=== PATIENT | female | born 1955 | race Caucasian/White ===

== ENCOUNTER 2016-07-24 10:20 | Inpatient (IN) | payer MEDICARE, MEDICAID ==
[~2016-07-24] VITALS: Ht 154.9 cm; Wt 86.9 kg
[2016-07-24] MEDS: TIOTROPIUM INHALER/CAPSULE (SPIRIVA) INH SCH (08:00)
[~2016-07-24 10:20] MED LIST: /AMIO20TA PO; /ESOM40CA; ACCUPRIL20 PO; ACET65TA; ALBU83IN INH; ALESSE PO; AMLO5TAB; AMLODIPINE PO; AMO500 PO; ASP325 PO; ASPI325T; ASPI81TA90 PO; BACT800T5 PO; BACTRIMDS PO; CIPRO500 PO; CLARITIN10 PO; CLON0.5T PO; COMBIVENT PO; CORE25TA; CORTISPOR OTIC; COZA25TA8; COZA50TA18; DICL13PA TOP; F ACCUPRIL PO; FERR325T; FERROUS325 PO; FLEXERIL; FLONASESPR NASAL; GLIP5TAB2; GLUCOPH500 PO; HYDR1TAB97 PO; HYDROCCR1 TOPICAL; INSULANT SC; JANUVIA; KEFLEX500 PO; LAMISILCR TOPICAL; LANCMIS SC; LAVAZA PO; LOTRIMCREA TOPICALLY; LOVA1CAP17 PO; MACR100C3 PO; MECLIZIN PO; METO100T PO; NEXIUM40 PO; NIFEREX; NITROSTAT4 SL; NIZORAL200 PO; OMEP40CA2 PO; OMEPRAZ20 PO; OMNICEF300 PO; OXYGEN NC; PRILOSEC20 PO; PRILOSEC40 PO; RENATAB5 PO; ROBITUSSDM PO; ROSU10TA PO; SPACER -; TESSALO100 PO; TIOT18INH INH; TOPAMAX100 PO; TRIC145T19 PO; TUSSI12TAB PO; TYLE325T5 PO; ULTRAM50 PO; ULTRTA PO; VALI2TAB PO; VICODIN PO; VITA-113; VIVELLE; ZEBETA5 PO; ZYRT10TA2 PO; [UNRECOGNIZED DRUG - OTHER]; [UNRECOGNIZED DRUG - OTHER] PO; [UNRECOGNIZED DRUG - REMARK]; cyclobenzaprine PO; hydrocodone PO; magnesium oxide PO; nephrovite PO; renvela PO; trazodone PO; vitamin d2 PO
[2016-07-24 11:02] LABS: BASO % 1.2 % (0.0-1.0); EOS # 0.3 K/mm3 (0.0-0.50); EOS % 6.7 % (0.0-3.0); LARGE UNSTAINED CELL # 0.1 K/mm3 (0.0-0.4); LYMPH # 0.5 K/mm3 (1.5-4.5); LYMPH % 9.1 % (24.0-44.0); MEAN CORPUSCULAR HEMOGLOBIN 31.2 pg (27.0-33.0); MEAN CORPUSCULAR HGB CONC 31.6 g/dl (32.0-36.5); MEAN CORPUSCULAR VOLUME 98.8 fl (80.0-96.0); MONO # 0.4 K/mm3 (0.0-0.8); NEUTROPHILS # 3.2 K/mm3 (1.8-7.7); PLATELET COUNT, AUTOMATED 145 k/mm3 (150-450); RED CELL DISTRIBUTION WIDTH 15.7 % (11.5-14.5); WHITE BLOOD COUNT 4.4 K/mm3 (4.0-10.0)
[2016-07-24 11:13] LABS: ANION GAP 9 MEQ/L (8-16); BLOOD UREA NITROGEN 11 MG/DL (7-18); CALCIUM LEVEL 8.9 MG/DL (8.8-10.2); CARBON DIOXIDE LEVEL 32 MEQ/L (21-32); CHLORIDE LEVEL 101 MEQ/L (98-107); CREATININE FOR GFR 3.28 MG/DL (0.55-1.02); GLOMERULAR FILTRATION RATE 15.3 (>45); GLUCOSE, FASTING 76 MG/DL (80-110); POTASSIUM SERUM 3.7 MEQ/L (3.5-5.1); SODIUM LEVEL 142 MEQ/L (136-145)
[2016-07-24] MEDS ORDERED: guaiFENesin DM LIQ 10ML UD As Ordered ONE (13:29)
[2016-07-24] MEDS ORDERED: ACETAMINOPHEN 325 MG TAB As Ordered ONE (13:29)
--- NOTE | 2016-07-24 14:08 | REP ---
PA and lateral chest 07/24/2016 Indication: Shortness of breath Comparison: PA and lateral chest 06/11, CTA chest 06/06/2016, portable chest 06/09 16 The cardiac silhouette is borderline in size. Subtle patchy infiltrate is identified in the left lower lobe and lingula. Small amount of right basilar atelectatic changes are noted. There are mild degenerative changes in thoracic spine. Impression : Stable cardiac silhouette, borderline in size. Subtle patchy infiltrate is identified in the left lower lobe and lingula. Follow-up to resolution recommended. Mild right basilar atelectatic changes. Signed by Jennifer Loomis MD 07/24/2016 02:00 P
[2016-07-24] MEDS ORDERED: cefTRIAXone SOD 1 GM VIAL (J0696) As Ordered ONE (14:33)
[2016-07-24] MEDS ORDERED: ASPI325T PO (15:07)
[2016-07-24] MEDS ORDERED: ROCA0.25 PO (15:07)
[2016-07-24] MEDS ORDERED: COLA100C PO (15:07)
[2016-07-24] MEDS ORDERED: CRES20TA PO (15:07)
[2016-07-24] MEDS ORDERED: AMIO20TA PO (15:07)
[2016-07-24] MEDS ORDERED: CYCL5TA PO (15:07)
[2016-07-24] MEDS ORDERED: NORC5TAB PO (15:07)
[2016-07-24] MEDS ORDERED: DIAZ5TAB PO (15:07)
[2016-07-24] MEDS ORDERED: NEPHTAB PO (15:08)
[2016-07-24] MEDS ORDERED: MAGN400T5 PO (15:08)
[2016-07-24] MEDS ORDERED: LANTINJ4 SC (15:08)
[2016-07-24] MEDS ORDERED: OMEP40CA2 PO (15:08)
[2016-07-24] MEDS ORDERED: DRIS50002 PO (15:08)
[2016-07-24] MEDS ORDERED: TRAZ10TA PO (15:08)
[2016-07-24] MEDS ORDERED: METO100T PO (15:08)
[2016-07-24] MEDS ORDERED: LOVA1CAP17 PO (15:08)
[2016-07-24] MEDS ORDERED: EPOG3000 INJ (15:08)
[2016-07-24] MEDS ORDERED: RENV2TAB PO (15:08)
[2016-07-24] MEDS ORDERED: SODI15SS PO (15:08)
[2016-07-24] MEDS ORDERED: TIOT18INH INH (15:08)
[2016-07-24] MEDS ORDERED: ZOFR4TAB3 PO (15:08)
[2016-07-24] MEDS ORDERED: ISOVUE-370 76% 100ML VIAL (Q9967) As Ordered ONE (15:09)
[2016-07-24] MEDS ORDERED: LEVO75TA4 PO (15:09)
--- NOTE | 2016-07-24 15:27 | HPEPDOC ---
Medical History and Physical Date of Admission 07/24/16 History and Physical ATTENDING: Dr. Nieves PCP: [facility] Dr Bond CC: SOB HPI: 60yoF with a past medical history significant for IDDM, ESRD, on HD as per Dr Bond, COPD who states she began to feel SOB and have persistent non productive cough 2 days ago. Feeling cold. Went to HD this AM and referred to ED for eval. Denies any weakness, fatigue, HOFF, CP, palpitations, abdominal pain, N/V/D or changes in bowel or bladder habits. Upon presentation to the hospital the patient was found to have LLL PN, thus the hospitalist team was consulted. PMHx: ESRD/HD- Ronda IDDM A Flutter (no anticoagulation related to h/o intracranial bleed) [facility] 07/09 LVH, nml systolic function. H/O Intraventricular bleed related to coumadin HHD hyperparathyroidism ACD Anxiety obesity PRABHJOT intolerant to CPAP COPD Chronic [employer]/BP hypothyroid HLD GERD PSHX: C section x 2 Lumbar discectomy breast biopsy colo 2001, 04/09. hysterectomy nasal cautery ventriculostomy 07/03 SOCHX: Resides in: [place] Marital Status: Kids: 2 Employment: retired Tobacco use: denies ETOH: denies Illicit Drugs: Denies Recent travel: denies Advanced directives: denies FAMHX: Mother: CVA Father: COPD Siblings: Alive, DM Children: Alive, well Unexpected deaths due to medical reasons: None. ROS: As noted in HPI, otherwise 11pt ROS of systems reviewed and unremarkable PE: GEN: 60yoF, appears stated age. Well-nourished, well developed. No acute distress. Alert and oriented x 3. Pleasant, interactive. HEENT: Normocephalic, atraumatic. Pupils are equal, round, and reactive to light. Extraocular movements are intact. No nystagmus appreciated. Sclera are nonicteric. Conjunctiva without injection. Nose midline. Nasal turbinates without bogginess. EACs both patent BL. TMs both visualized and burr with good cone of light, no bulging or erythema. No facial asymmetry. Moist mucous membranes. Dentition fair. Pharynx pink and moist, no cobblestoning. Neck supple , trachea midline. No lymphadenopathy or thyromegaly appreciated. CHEST: Regular rate and rhythm, +S1, +S2 LUNGS: Decreased BS at bases. Few rales at bases. No wheezes or rhonchi. Breathing appears symmetric and easy. Patient is speaking in full sentences. No accessory muscle use. ABD: Round, soft, non-tender, non-distended. +Bowel sounds throughout. No rebound or guarding. No costovertebral angle tenderness. EXT: Pulses 2+ bilaterally dorsalis pedis and radial. No lower extremity edema appreciated. SKIN: [place], dry, warm. Capillary refill <2sec. No rashes. NEURO: Alert and oriented x 3. Cranial nerves III-XII are intact. No focal deficits appreciated. CXR: Stable cardiac silhouette, borderline in size. Subtle patchy infiltrate is identified in the left lower lobe and lingula. Follow-up to resolution recommended. Mild right basilar atelectatic changes. CTA chest pending. BLOOD CULTURES: x 2 pending. A&P: 60yoF with a past medical history significant for IDDM, ESRD, on HD as per Dr Bond, COPD who states she began to feel SOB and have persistent non productive cough 2 days ago. Feeling cold. Went to HD this AM and referred to ED for eval. The patient will be admitted to PCU for at least [address] Nieves's service. Pt is discussed with Dr Winston. LLL CAP. BC pending. Sputum cx. Supplemental O2. IV Rocephin/Zmax. Nebs prn. Robitussin prn. Elevated D Dimer. CTA chest pending. ESRD/HD. As Per Nephrology. IDDM. SSI/levemir reduced dose related to reduced appetite. Chronic pain. Cont outpt meds. Anxiety. Cont valium as needed. hypothyroid. Cont supplement. TSH pending. HLD. crestor/Lovaza. HTN/HHD. Metoprolol with hold parameters. GERD. PPI COPD. Spiriva insomnia. Trazodone Hypomagnesemia. Cont supplement, chk level in AM. Hyperkalemia. Hold Kayexalate prn, K 3.7. Monitor labs. ACD. Epo with HD. DVT prophylaxis. The patient is a Full code Vital Signs 132/61 76 24 98.7 91% Laboratory Data Labs 24H Laboratory Tests 2 07/24/16 10:48: Anion Gap 9, B-Type Natriuretic Peptide 187H, White Blood Count 4.4, Red Blood Count 3.50L, Hemoglobin 10.9L, Hematocrit 34.6L, Mean Corpuscular Volume 98.8H, Mean Corpuscular Hemoglobin 31.2, Mean Corpuscular Hemoglobin Concent 31.6L, Red Cell Distribution Width 15.7H, Platelet Count 145L, Neutrophils (%) (Auto) 72.0H, Lymphocytes (%) (Auto) 9.1L, Monocytes (%) (Auto) 9.0H, Eosinophils (%) ( Auto) 6.7H, Basophils (%) (Auto) 1.2H, Neutrophils # (Auto) 3.2, Lymphocytes # ( Auto) 0.5L, Monocytes # (Auto) 0.4, Eosinophils # (Auto) 0.3, Basophils # (Auto ) 0.0, Blood Urea Nitrogen 11, Creatinine 3.28H, Sodium Level 142, Potassium Level 3.7, Chloride Level 101, Carbon Dioxide Level 32, Calcium Level 8.9, Total Creatine Kinase 33, Creatine Kinase MB 1.0, Creatine Kinase MB Relative Index 3.03, D-Dimer, Quantitative 944.6H, Glomerular Filtration Rate 15.3L, Large Unclassified Cells # 0.1, Large Unclassified Cells % 2.0, Troponin I < 0.02 CBC/BMP Laboratory Tests 07/24/16 10:48 Calcium Level 8.9, Total Creatine Kinase 33, Red Blood Count 3.50 L, Mean Corpuscular Volume 98.8 H, Mean Corpuscular Hemoglobin 31.2, Mean Corpuscular Hemoglobin Concent 31.6 L, Red Cell Distribution Width 15.7 H, Neutrophils (%) ( Auto) 72.0 H, Lymphocytes (%) (Auto) 9.1 L, Monocytes (%) (Auto) 9.0 H, Eosinophils (%) (Auto) 6.7 H, Basophils (%) (Auto) 1.2 H, Neutrophils # (Auto) 3.2, Lymphocytes # (Auto) 0.5 L, Monocytes # (Auto) 0.4, Eosinophils # (Auto) 0.3, Basophils # (Auto) 0.0 Microbiology Microbiology 07/24/16 Blood Culture, Received Pending 07/24/16 Blood Culture, Received Pending Home Medications Scheduled Amiodarone HCl (Amiodarone HCl) 200 Mg Tab 200 MG PO DAILY Aspirin (Aspirin) 325 Mg Tab 325 MG PO DAILY Calcitriol (Rocaltrol) 0.25 Mcg Cap 0.75 MCG PO 3XW THURSDAY,THURSDAY,THURSDAY Epoetin Justin (Epogen) 3,000 Unit/Ml Inj 3,000 UNIT INJ 3XW THURSDAY,THURSDAY,THURSDAY Insulin Glargine (Lantus Solostar) 100 Unit/Ml Inj 46 UNITS SC QHS Levothyroxine Sodium (Synthroid) 75 Mcg Tab 75 MCG PO DAILY Magnesium Oxide (Magnesium Oxide 400) 400 Mg Tab 400 MG PO DAILY Metoprolol Tartrate (Metoprolol Tartrate) 100 Mg Tab 100 MG PO BID [place] 3 Polyunsat Fatty Acids (Lovaza 1 gm) 1 Cap Cap 2 CAP PO BID Omeprazole (Omeprazole) 40 Mg Cap 40 MG PO DAILY Rosuvastatin Calcium (Crestor) 20 Mg Tab 20 MG PO QHS Sevelamer Carbonate (Renvela) 800 Mg Tab 2,400 MG PO WM Sodium Polystyrene Sulfonate (Sps) 15 Gm/60 Ml Susp 15 GM PO ASDIRECTED ONLY TAKES IF TOLD TO BY DIALYSIS Tiotropium [place] Monohydrate (Spiriva Handihaler) 5 Inhalation/Inhaler Powd 1 INHALATION INH DAILY Trazodone HCl (Trazodone HCl) 100 Mg Tab 100 MG PO QHS Vitamin B Cmplx/Vitc/Folic Ac (Nephro-Mirella Rx 1 mg) 1 Tab Tab 1 TAB PO DAILY Vitamin D (Drisdol) 50,000 Unit Cap 50,000 UNIT PO Q2WK Scheduled PRN Acetaminophen/Hydrocodone ([place] 5-325 mg) 1 Tab Tab 1 TAB PO BID PRN PRN CONSTIPATION Cyclobenzaprine HCl (Cyclobenzaprine HCl) 5 Mg Tab 5 MG PO TID PRN PRN MUSCLE SPASMS Diazepam (Diazepam) 5 Mg Tab 5 MG PO BID PRN PRN ANXIETY Docusate Sodium (Colace) 100 Mg Cap 100 MG PO DAILY PRN PRN CONSTIPATION Ondansetron (Zofran Odt) 4 Mg Tab 4 MG PO Q6H PRN PRN NAUSEA Allergies Coded Allergies: Quinolones (Verified Allergy, Unknown, TEQUIN, 05/19/14) TONGUE SWOLLEN GME ATTESTATION GME ATTESTATION My preceptor for this patient encounter was physically present in the building during the encounter and was fully available. As needed, all aspects of the patient interview, examination, medical decision making process, and medical care plan development were reviewed and approved by the preceptor. Preceptor is aware and concurs with the plan as stated in the body of this note and will attest to such by his/her cosignature. ATTENDING NOTE Attending Note I have both independently examined this patient as well as reviewed the note. I have discussed in detail with the PA the findings and plan of treatment as documented in the PAs note. I will continue to follow the patient and offer further guidance to the patients care as necessary during this hospital stay. Meche Smith Jul 24, 2016 15:27 MONSTER WINSTON DO Jul 28, 2016 20:58
[2016-07-24] MEDS ORDERED: CYCLOBENZAPRINE 5MG TABLET PO PRN (15:45)
[2016-07-24] MEDS ORDERED: diazePAM 5 MG TAB PO PRN (15:45)
[2016-07-24] MEDS ORDERED: DOCUSATE SODIUM 100 MG CAP PO PRN (15:45)
[2016-07-24] MEDS ORDERED: GLUCAGON FOR INJ 1 MG VIAL (J1610) SC PRN (16:00)
[2016-07-24] MEDS ORDERED: DEXTROSE 50% 50 ML SYRINGE IV PRN (16:00)
[2016-07-24] MEDS ORDERED: GLUCOSE 4 GM CHEW TABLET PO PRN (16:00)
--- NOTE | 2016-07-24 16:14 | REP ---
[place] CTA chest 07/24/2016 Indication: Shortness of breath Comparison: CTA chest 06/06/2016 The patient had dialysis earlier today and is cleared for subsequent CTA chest today by Dr.. Guzman of Dept of Nephrology Findings: The thoracic aorta is without aneurysm or dissection. There is minimal pericardial effusion now noted of maximal depth 5 mm. The heart is of normal size. There are no pathologically enlarged mediastinal or hilar lymph nodes. There are no central pulmonary artery emboli through the proximal segmental pulmonary artery levels bilaterally. Patchy areas of nodular infiltrate are seen within the lingula with mild progression and in the left lower lobe with progression. The right lung is clear. Visualized portions of the liver are enlarged. Liver is 18.3 cm cranial caudal dimension. The spleen is 11.6 cm craniocaudal dimension, upper normal size. Visualized portions of pancreas within normal limits. The gallbladder is Jayesh distended without stones wall thickening or biliary dilatation. There are a few nodes within the para esophageal region in the upper abdomen, medial to the stomach none of which are pathologically enlarged. There also a few romy hepatis nodes, largest 1.4 cm diameter and unchanged. Nonobstructing 4 mm calculus is seen within the upper pole left kidney. Impression 1. No central pulmonary artery emboli are seen through the proximal segmental pulmonary artery levels bilaterally. The more peripheral pulmonary branches are somewhat limited in visualization. 2. Progression of patchy nodular infiltrative opacities within the left lower lobe and lingula which represents interval change and followup to complete resolution is recommended . Recommend follow-up CT chest within 3 months. 3. 3.3 mm noncalcified pulmonary nodule within the superior segment left lower lobe on image 49 series 402. 4. Few para esophageal lymph nodes are seen within the epigastric region, largest 13 mm short-axis diameter are considered enlarged yet unchanged. Signed by Jennifer Loomis MD 07/24/2016 04:05 P
--- NOTE | 2016-07-24 19:09 | ECGEPIP ---
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
[2016-07-24] MEDS ORDERED: NORCO, ANEXSIA 5/325MG TABLET (HYDROcodone/ACETAMINOPHEN) As Ordered ONE (19:33)
[2016-07-24] MEDS ORDERED: IPRATROPIUM 0.5MG/ALBUTEROL 2.5MG INH SOL UD 3ML (DUONEB)(J7620) As Ordered ONE (20:41)
[2016-07-24] MEDS: IPRATROPIUM 0.5MG/ALBUTEROL 2.5MG INH SOL UD 3ML (DUONEB)(J7620) NEB SCH (20:46)
--- NOTE | 2016-07-24 21:56 | EDDOCDS ---
Nurse's Notes [facility] Name: Caro Carnes Age: 60 yrs Sex: Female : 1955 Arrival Date: 07/24/2016 Time: 10:20 Bed 15 Private MD: Aiden Nieves Diagnosis: Pneumonia in diseases classified elsewhere Presentation: 07/24 10:23 Presenting complaint: Patient states: barking cough for the past 2 days. Feels cold, jc4 achy, just can't breathe. Chest heaviness began yesterday. States short of breath at rest since yesterday. Was seen at dialysis this morning and was told by nurse to come here. Suicide/Homicide risk assessment- the patient denies having any suicidal and/or homicidal ideations and does not present with any other emotional, behavioral or mental health complaints. 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 Transition of care: patient was received from a primary care office; [facility]. 10:23 Acuity: MUNDO Level 2 jc4 10:23 Method Of Arrival: Wheelchair jc4 21:55 Adult Sepsis Screening: The patient does not have new or worsening altered mentation. js15 Patient has a respiratory rate of greater than or equal to 22 (1 point). Systolic blood pressure is greater than 100. Patient has a qSOFA score of 1- Negative Sepsis Screen. Triage Assessment: 10:31 General: Appears ill. Pain: Pain currently is 9 out of 10 on a pain scale. HIV jc4 screening NA for this visit Offered previously. Respiratory: Onset: The symptoms/episode began/occurred 2 days ago. Historical: - Allergies: tequin (mouth swells); - Home Meds: 1. amiodarone 200 mg Oral tab 1 tab once daily (Last dose: 07/23/2016) 2. aspirin 325 mg Oral tab 1 tab once daily (Last dose: 07/23/2016 21:00) 3. calcitriol 0.75 mcg oral cap three times a week at dialysis (Last dose: 07/24/2016 07:30) 4. Colace 100 mg oral cap 1 cap as needed (Last dose: 07/23/2016 21:00) 5. Crestor 20 mg Oral tab 1 tab nightly (Last dose: 07/23/2016 21:00) 6. cyclobenzaprine 5 mg Oral tab 1 tab 3 times per day as needed (Last dose: 07/23/2016 21:00) 7. diazepam 5 mg Oral tab 1 tab 2 times per day as needed (Last dose: 07/23/2016 21:00) 8. Epogen 3,000 unit/mL injection soln 3 times per wk at dialysis (Last dose: 07/24/2016 09:30) 9. hydrocodone-acetaminophen 5-325 mg Oral tab 1 tab every 12 hours as needed (Last dose: Unknown) 10. Lantus 100 unit/mL Sub-Q soln 46 unit nightly (Last dose: 07/23/2016 21:00) 11. levothyroxine 75 mcg Oral cap 1 cap once daily (Last dose: 07/23/2016 21:00) 12. Lovaza 1 gram oral cap 2 caps 2 times per day (Last dose: 07/23/2016 21:00) 13. magnesium oxide 400 mg Oral tab 400 mg daily (Last dose: 07/23/2016 21:00) 14. metoprolol tartrate 100 mg Oral tab 1 tab 2 times per day (Last dose: 07/23/2016 21:00) 15. Nephro-Mirella oral tab 1 tab daily (Last dose: 07/23/2016 21:00) 16. omeprazole 40 mg Oral cpDR 1 cap once daily (Last dose: 07/23/2016 21:00) 17. Renvela 800 mg oral tab 3 tabs 3 times per day (Last dose: 07/23/2016 21:00) 18. Spiriva with HandiHaler 18 mcg Inhl CpDv 1 cap once daily (Last dose: 07/22/2016) 19. SPS 15 gram/60 mL Oral susp 60 mL once daily if told to take by dialysis - has not taken in some time (Last dose: Unknown) 20. trazodone 100 mg Oral tab 1 tab nightly (Last dose: 07/23/2016 21:00) 21. Vitamin D Oral 35158 unit every 2 weeks (Last dose: 07/10/2016) 22. Zofran (as hydrochloride) 4 mg Oral tab 1 tabs every 8 hours as needed (Last dose: Unknown) - PMHx: Diabetes - IDDM: controlled; GERD; Hypercholesterolemia; Hypertension; Renal Failure with Dialysis; kidney failure; - PSHx: Hysterectomy; ; Craniotomy; Disc surgery; AV Fistula- Left arm; Nasal cauterization; cardiac catheterization; - Social history: Smoking status: Patient states former smoker of tobacco. No barriers to communication noted, The patient speaks fluent Japanese. - Family history: Not pertinent. - : The pt / caregiver states he / she is not on anticoagulants. Home medication list is obtained from the patient. - Exposure Risk Screening:: None identified. Screenin:04 Screening information is obtained from the patient. Fall risk: No risks identified. dsf Assistance ADL's: requires no assistance with activities of daily living. Abuse/DV Screen: The patient / caregiver reports he/she is: not in a situation that causes fear, pain or injury. Nutritional screening: No deficits noted. Advance Directives: Currently, there is no health care proxy. home support is adequate. Assessment: 10:56 Adult Sepsis Screening: The patient does not have new or worsening altered mentation. dsf Patient has a respiratory rate of greater than or equal to 22 (1 point). Systolic blood pressure is greater than 100. Patient has a qSOFA score of 1- Negative Sepsis Screen. General: Appears in no apparent distress, Behavior is appropriate for age, cooperative. Neurological: Level of Consciousness is awake, alert, Oriented to person, place, time. Cardiovascular: Capillary refill < 3 seconds Heart tones S1 S2 present Rhythm is sinus rhythm No ectopy. Respiratory: Airway is patent Respiratory effort is even, unlabored, Respiratory pattern is regular, symmetrical, Breath sounds are diminished bilaterally. Reports shortness of breath at rest on exertion cough that is productive. GI: Abdomen is non- distended Bowel sounds present X 4 quads. Abd is soft and non tender X 4 quads. Derm: Skin is pink, warm & dry. 11:56 General: Appears in no apparent distress, Behavior is appropriate for age, cooperative. dsf Neurological: Level of Consciousness is awake, alert. Cardiovascular: Capillary refill < 3 seconds Rhythm is sinus rhythm No ectopy. Respiratory: Airway is patent Respiratory effort is even, unlabored, Respiratory pattern is regular, symmetrical. Derm: Skin is pink, warm & dry. 12:20 General: Appears in no apparent distress, Behavior is appropriate for age, cooperative. dsf Neurological: Level of Consciousness is awake, alert. Cardiovascular: Capillary refill < 3 seconds. Respiratory: Airway is patent Respiratory effort is even, unlabored, Respiratory pattern is regular, symmetrical. Derm: Skin is pink, warm & dry. 13:53 General: Appears in no apparent distress, comfortable, Behavior is appropriate for age, dsf cooperative. Pain:. Neurological: Level of Consciousness is awake, alert. Cardiovascular: Capillary refill < 3 seconds Rhythm is sinus rhythm No ectopy. Respiratory: Airway is patent Respiratory effort is even, unlabored, Respiratory pattern is regular, symmetrical. Derm: Skin is pink, warm & dry. 14:53 Adult Sepsis Screening: The patient does not have new or worsening altered mentation. dsf Patient has a respiratory rate of greater than or equal to 22 (1 point). Systolic blood pressure is greater than 100. Patient has a qSOFA score of 1- Negative Sepsis Screen. General: Appears in no apparent distress, Behavior is appropriate for age, cooperative. Pain:. Neurological: Level of Consciousness is awake, alert. Cardiovascular: Capillary refill < 3 seconds. Respiratory: Airway is patent Respiratory effort is even, unlabored, Respiratory pattern is regular, symmetrical. GI: Abdomen is non- distended. Derm: Skin is pink, warm & dry. 15:53 General: Appears in no apparent distress, Behavior is appropriate for age, cooperative. dsf Neurological: Level of Consciousness is awake, alert. Cardiovascular: No deficits noted. Respiratory: No deficits noted. Derm: Skin is pink, warm & dry. 16:53 Adult Sepsis Screening: The patient does not have new or worsening altered mentation. dsf Patient has a respiratory rate of greater than or equal to 22 (1 point). Systolic blood pressure is greater than 100. Patient has a qSOFA score of 1- Negative Sepsis Screen. General: Appears in no apparent distress, Behavior is appropriate for age, cooperative. Neurological: Level of Consciousness is awake, alert. Cardiovascular: Capillary refill < 3 seconds Rhythm is sinus rhythm No ectopy. Cardiovascular: Heart tones S1 S2 present. Respiratory: Airway is patent Respiratory effort is even, unlabored, Respiratory pattern is regular, symmetrical, Breath sounds are diminished bilaterally. GI: Abdomen is non- distended Bowel sounds present X 4 quads. Abd is soft and non tender X 4 quads. Derm: Skin is pink, warm & dry. 17:53 General: Appears in no apparent distress, Behavior is appropriate for age, cooperative. dsf Neurological: Level of Consciousness is awake, alert. Cardiovascular: Capillary refill < 3 seconds Rhythm is sinus rhythm No ectopy. Respiratory: Airway is patent Respiratory effort is even, unlabored, Respiratory pattern is regular, symmetrical. Derm: Skin is pink, warm & dry. 18:11 Adult Sepsis Screening: The patient does not have new or worsening altered mentation. dsf Patient has a respiratory rate of greater than or equal to 22 (1 point). Systolic blood pressure is greater than 100. Patient has a qSOFA score of 1- Negative Sepsis Screen. General: Appears in no apparent distress, Behavior is appropriate for age, cooperative. Neurological: Level of Consciousness is awake, alert. Cardiovascular: No deficits noted. Respiratory: Airway is patent Respiratory effort is even, unlabored, Respiratory pattern is regular, symmetrical, Breath sounds are diminished bilaterally. Derm: Skin is pink, warm & dry. 18:39 General: pt ate 100% of dinner tray . dsf 19:30 General: Appears uncomfortable, Behavior is appropriate for age, cooperative. Pain: js15 Location: head. Neurological: Level of Consciousness is awake, alert, obeys commands, Oriented to person, place, time. Respiratory: Airway is patent Respiratory effort is even, labored, Respiratory pattern is regular, symmetrical. Derm: Skin is pink, warm & dry. 21:53 Reassessment: Patient appears in no apparent distress at this time. Pt resting on js15 stretcher comfortably, respirations even and unlabored; skin pink, warm, dry. Vital Signs: 10:23 BP 134 / 57; Pulse 74; Resp 24; Temp 98.7; Pulse Ox 100% ; elp 10:45 BP 155 / 90 (auto/); dsf 10:49 Pulse 78 MON; Pulse Ox 94% ; dsf 10:55 Weight 88.45 kg (R); Height 5 ft. 1 in. (154.94 cm); dsf 11:00 Pulse 72 MON; Pulse Ox 100% ; dsf 11:00 BP 123 / 58 (auto/); dsf 11:15 BP 129 / 60 (auto/); dsf 11:15 Pulse 74 MON; Pulse Ox 100% ; dsf 11:30 BP 128 / 61 (auto/); dsf 11:30 Pulse 74 MON; Pulse Ox 100% ; dsf 11:45 BP 128 / 61 (auto/); dsf 11:45 Pulse 76 MON; Pulse Ox 100% ; dsf 12:00 BP 131 / 58 (auto/); dsf 12:00 Pulse 76 MON; Pulse Ox 100% ; dsf 12:15 BP 125 / 59 (auto/); dsf 12:15 Pulse 74 MON; Pulse Ox 100% ; dsf 12:30 BP 118 / 56 (auto/); dsf 12:30 Pulse 72 MON; Pulse Ox 100% ; dsf 12:45 BP 124 / 76 (auto/); dsf 12:45 Pulse 78 MON; Pulse Ox 91% ; dsf 13:59 BP 132 / 61 (auto/); dsf 13:59 Pulse 76 MON; Pulse Ox 88% ; dsf 14:03 Pulse 76 MON; Pulse Ox 91% ; dsf 17:04 Resp 21; Temp 97.4(TE); Pain 0/10; dsf 18:40 Pulse 76 MON; Pulse Ox 91% ; dsf 18:42 Resp 20; Temp 96.9; dsf 19:15 BP 122 / 59; Pulse 79; Resp 18; Temp 97.6(TE); Pulse Ox 92% on R/A; Pain 8/10; kb5 10:55 Body Mass Index 36.84 (88.45 kg, 154.94 cm) dsf Vitals: 10:23 Log In Time: July 24, 2016 at 10:20. RN notified that patient meets Red Flag elp criteria. ED Course: 10:21 Patient visited by Susan Dunn PCA. elp 10:21 Patient moved to Waiting elp 10:21 Patient moved to 15 jc4 10:22 Aiden Nieves MD is Private Physician. elp 10:22 Patient moved to Waiting elp 10:23 Patient moved to 15 jc4 10:25 Triage Initiated jc4 10:26 [facility] bs6 10:26 Sarah Beth Griffin MD is Attending Physician. bs6 10:27 Patient visited by Bethany Lopez DO. bs6 10:27 Patient visited by Bethany Lopez DO. bs6 10:35 EKG done. (by ED staff). Reviewed by Bethany Lopez DO. dem1 10:36 Patient visited by Shauna Israel. dem1 10:50 The patient / caregiver is instructed regarding the plan of care and ED course. Patient dsf has correct armband on for positive identification. Placed in gown. Bed in low position. Call light in reach. Side rails up X2. vascular tech on. Pulse ox on. NIBP on. 10:50 Inserted saline lock: 20 gauge in right antecubital area The patient tolerated the dsf procedure well. 10:50 CBC with Diff Sent. dsf 10:50 Basic Metabolic Profile Sent. dsf 10:50 B-Type Natiuretic Peptide Sent. dsf 10:50 -Blood Culture Sent. dsf 10:50 O2 via nasal cannula \T\ 4L/min. dsf 10:57 Patient visited by Ladi Salazar RN. dsf 11:07 BLOOD CULTURES Sent. dsf 12:04 Patient visited by Ladi Salazar RN. dsf 13:25 Patient visited by Melina Meza RN. rs3 13:40 [facility] Payment Agreement was scanned into [employer] and attached to record. lg 13:54 Patient visited by Ladi Salazar RN. dsf 14:33 Chest, 2 View (pa\E\lat) Returned. EDMS 14:35 Mago Martinez wage and salary administrator. ys2 14:36 Mago Martinez is Hospitalizing Provider. bs6 15:[address] dsf 15:39 Patient moved to 15 dsf 17:03 CT Chest Angio R/O PE Returned. EDMS 18:12 Patient visited by Ladi Salazar RN. dsf 19:09 Patient visited by Declan Reynolds PCA. kb5 19:15 Patient visited by Declan Reynolds PCA. kb5 19:40 EKG-ADULT Returned. EDMS 21:53 No procedures done that require assistance. js15 Administered Medications: 13:33 Drug: Acetaminophen 650 mg [acetaminophen 325 mg tablet (2 tabs)] Route: PO; rs3 13:33 Drug: Dextromethorphan-Guaifenesin 5 ml [dextromethorphan-guaifenesin 10 mg-100 mg/5 mL rs3 oral liquid (5 mL)] Route: PO; 14:39 Drug: cefTRIAXone 1 grams [ceftriaxone 1 gram solution for injection] Route: IVPB; dsf Infused Over: 30 mins; Site: right antecubital; 17:06 Follow up: IV Status: Completed infusion; IV Intake: 20ml dsf 19:35 Drug: HYDROcodone-acetaminophen 1 tabs [hydrocodone 5 mg-acetaminophen 325 mg tablet (1 js15 tabs)] Route: PO; Intake: 17:06 IV: 20.00ml; Total: 20.00ml. dsf 18:40 PO: 360.00ml; Total: 380.00ml. dsf Order Results: Lab Order: B-Type Natiuretic Peptide; SPEC'M 07/24/16 10:48 Test: BRAIN NATRIURETIC PEPTIDE; Value: 187; Range: <100; Abnormal: Above high normal; Units: PG/ML; Status: F Lab Order: Basic Metabolic Profile; SPEC'M 07/24/16 10:48 Test: GLUCOSE, FASTING; Value: 76; Range: 80-110; Abnormal: Below low normal; Units: MG/DL; Status: F Test: BLOOD UREA NITROGEN; Value: 11; Range: 7-18; Units: MG/DL; Status: F Test: CREATININE FOR GFR; Value: 3.28; Range: 0.55-1.02; Abnormal: Above high normal; Units: MG/DL; Status: F Test: GLOMERULAR FILTRATION RATE; Value: 15.3; Range: >45; Abnormal: Below low normal; Status: F Test: SODIUM LEVEL; Value: 142; Range: 136-145; Units: MEQ/L; Status: F Test: POTASSIUM SERUM; Value: 3.7; Range: 3.5-5.1; Units: MEQ/L; Status: F Test: CHLORIDE LEVEL; Value: 101; Range: 98-107; Units: MEQ/L; Status: F Test: CARBON DIOXIDE LEVEL; Value: 32; Range: 21-32; Units: MEQ/L; Status: F Test: ANION GAP; Value: 9; Range: 8-16; Units: MEQ/L; Status: F Test: CALCIUM LEVEL; Value: 8.9; Range: 8.8-10.2; Units: MG/DL; Status: F Test Note: ; Units are mL/min/1.73 m2 Chronic Kidney Disease Staging per NKF: Stage I & II GFR >=60 Normal to Mildly Decreased Stage III GFR 30-59 Moderately Decreased Stage IV GFR 15-29 Severely Decreased Stage V GFR <15 Very Little GFR Left ESRD GFR <15 on CRUDE OIL TREATER Lab Order: CBC with Diff; SPEC'M 07/24/16 10:48 Test: WHITE BLOOD COUNT; Value: 4.4; Range: 4.0-10.0; Units: K/mm3; Status: F Test: RED BLOOD COUNT; Value: 3.50; Range: 4.00-5.40; Abnormal: Below low normal; Units: M/mm3; Status: F Test: HEMOGLOBIN; Value: 10.9; Range: 12.0-16.0; Abnormal: Below low normal; Units: g/dl; Status: F Test: HEMATOCRIT; Value: 34.6; Range: 36.0-47.0; Abnormal: Below low normal; Units: %; Status: F Test: MEAN CORPUSCULAR VOLUME; Value: 98.8; Range: 80.0-96.0; Abnormal: Above high normal; Units: fl; Status: F Test: MEAN CORPUSCULAR HEMOGLOBIN; Value: 31.2; Range: 27.0-33.0; Units: pg; Status: F Test: MEAN CORPUSCULAR HGB CONC; Value: 31.6; Range: 32.0-36.5; Abnormal: Below low normal; Units: g/dl; Status: F Test: RED CELL DISTRIBUTION WIDTH; Value: 15.7; Range: 11.5-14.5; Abnormal: Above high normal; Units: %; Status: F Test: PLATELET COUNT, AUTOMATED; Value: 145; Range: 150-450; Abnormal: Below low normal; Units: k/mm3; Status: F Test: NEUTROPHILS %; Value: 72.0; Range: 36.0-66.0; Abnormal: Above high normal; Units: %; Status: F Test: LYMPH %; Value: 9.1; Range: 24.0-44.0; Abnormal: Below low normal; Units: %; Status: F Test: MONO %; Value: 9.0; Range: 0.0-5.0; Abnormal: Above high normal; Units: %; Status: F Test: EOS %; Value: 6.7; Range: 0.0-3.0; Abnormal: Above high normal; Units: %; Status: F Test: BASO %; Value: 1.2; Range: 0.0-1.0; Abnormal: Above high normal; Units: %; Status: F Test: LARGE UNSTAINED CELL %; Value: 2.0; Range: 0.0-4.0; Units: %; Status: F Test: NEUTROPHILS #; Value: 3.2; Range: 1.8-7.7; Units: K/mm3; Status: F Test: LYMPH #; Value: 0.5; Range: 1.5-4.5; Abnormal: Below low normal; Units: K/mm3; Status: F Test: MONO #; Value: 0.4; Range: 0.0-0.8; Units: K/mm3; Status: F Test: EOS #; Value: 0.3; Range: 0.0-0.50; Units: K/mm3; Status: F Test: BASO #; Value: 0.0; Range: 0.0-0.2; Units: K/mm3; Status: F Test: LARGE UNSTAINED CELL #; Value: 0.1; Range: 0.0-0.4; Units: K/mm3; Status: F Lab Order: CARDIAC MARKER PANEL; [facility] 07/24/16 10:48 Test: CPK CREATINE PHOSPHOKINASE; Value: 33; Range: 26-192; Units: U/L; Status: F Test: CK-MB VALUE MASS; Value: 1.0; Range: 0.0-3.6; Units: NG/ML; Status: F Test: MB/CK RELATIVE INDEX; Value: 3.03; Range: < OR =4; Status: F Test: TROPONIN I; Value: < 0.02; Range: < 0.10; Units: NG/ML; Status: F Test Note: ; DIAGNOSIS CRITERIA MMB ng/ml Relative Index (RI) NON-AMI < or = 5 N/A COATS ZONE > 5 < or = 4 AMI > 5 > 4 Lab Order: D-Dimer Quant; [facility] 07/24/16 10:48 Test: D-DIMER QUANT; Value: 944.6; Range: <500; Abnormal: Above high normal; Units: ng/ml; Status: F Lab Order: THYROID STIMULATING HORMONE; [facility] 07/24/16 10:48 Test: THYROID STIMULATING HORMONE; Value: 0.807; Range: 0.358-3.740; Units: uIU/ML; Status: F Radiology Order: EKG-ADULT Test: EKG-ADULT REASON FOR EXAMINATION: Chest Pain; Stationary ECG Study; [facility] - ED; ; Test Date: 2016-07-24; Pat Name: CARO CARNES Department:; Room: -; Gender: F Bumboater: ellie; : 1955 Requested By: Sarah Beth Griffin; Order Number: [id number] Reading MD: Sarah Beth Griffin; Measurements; Intervals Reading; Rate: 77 P: 66; NH: 230 QRS: 31; QRSD: 98 T: 49; QT: 399; QTc: 454; Interpretive Statements; SINUS RHYTHM WITH FIRST DEGREE AV BLOCK; POSSIBLE LEFT ATRIAL ENLARGEMENT; NONSPECIFIC ST T-WAVE ABNORMALITY; PROLONGED QTC; Electronically Signed On 07-24-2016 19:09:19 EST by Sarah Beth Griffin; Radiology Order: Chest, 2 View (pa\E\lat) Test: Chest, 2 View (pa\E\lat) REASON FOR EXAMINATION: Shortness of Breath; PA and lateral chest 07/24/2016; ; Indication: Shortness of breath; ; Comparison: PA and lateral chest 06/11, CTA chest 06/06/2016, portable chest; 06/09 16; ; The cardiac silhouette is borderline in size. Subtle patchy infiltrate is; identified in the left lower lobe and lingula. Small amount of right basilar; atelectatic changes are noted.; ; There are mild degenerative changes in thoracic spine.; ; Impression :; ; Stable cardiac silhouette, borderline in size.; ; Subtle patchy infiltrate is identified in the left lower lobe and lingula.; Follow-up to resolution recommended.; ; Mild right basilar atelectatic changes.; ; ; Signed by; Jennifer Loomis MD 07/24/2016 02:00 P; Radiology Order: CT Chest Angio R/O PE Test: CT Chest Angio R/O PE REASON FOR EXAMINATION: Shortness of Breath; Volleyball CTA chest 07/24/2016; ; Indication: Shortness of breath; ; Comparison: CTA chest 06/06/2016; ; The patient had dialysis earlier today and is cleared for subsequent CTA chest; today by Dr.. Guzman of Dept of Nephrology; ; Findings: The thoracic aorta is without aneurysm or dissection. There is; minimal pericardial effusion now noted of maximal depth 5 mm. The heart is of; normal size. There are no pathologically enlarged mediastinal or hilar lymph; nodes. There are no central pulmonary artery emboli through the proximal; segmental pulmonary artery levels bilaterally. Patchy areas of nodular; infiltrate are seen within the lingula with mild progression and in the left; lower lobe with progression. The right lung is clear.; ; Visualized portions of the liver are enlarged. Liver is 18.3 cm cranial caudal; dimension. The spleen is 11.6 cm craniocaudal dimension, upper normal size.; Visualized portions of pancreas within normal limits. The gallbladder is Jayesh; distended without stones wall thickening or biliary dilatation. There are a few; nodes within the para esophageal region in the upper abdomen, medial to the; stomach none of which are pathologically enlarged. There also a few romy; hepatis nodes, largest 1.4 cm diameter and unchanged. Nonobstructing 4 mm; calculus is seen within the upper pole left kidney.; ; Impression; 1. No central pulmonary artery emboli are seen through the proximal segmental; pulmonary artery levels bilaterally. The more peripheral pulmonary branches are; somewhat limited in visualization.; 2. Progression of patchy nodular infiltrative opacities within the left lower; lobe and lingula which represents interval change and followup to complete; resolution is recommended . Recommend follow-up CT chest within 3 months.; 3. 3.3 mm noncalcified pulmonary nodule within the superior segment left lower; lobe on image 49 series 402.; 4. Few para esophageal lymph nodes are seen within the epigastric region,; largest 13 mm short-axis diameter are considered enlarged yet unchanged.; ; ; Signed by; Jennifer Loomis MD 07/24/2016 04:05 P; Outcome: 14:37 Decision to Hospitalize by Provider. bs6 21:53 Discharge Assessment: Patient awake, alert and oriented x 3. No cognitive and/or js15 functional deficits noted. Patient verbalized understanding of disposition instructions. patient administered narcotics - yes. Patient was admitted to the hospital or transferred to another facility. The following High Risk Discharge criteria are identified: None. Admitted to Med/Surg accompanied by tech, via stretcher, with oxygen, with chart. Condition: stable. Property :Personal belongings accompany Pt. 21:55 No special radiology studies were completed. js15 21:55 Patient left the ED. js15 Signatures: Dispatcher [employer] EDMS Nathalie Rios, Reg Reg lg Rodolfo, Declan, STAPLER HAND STAPLER HAND kb5 Melina Meza,RN RN rs3 Maddi Mckeon, RN RN jc4 Ladi SalazarRN RN dsf Shauna Israel dem1 Susan Dunn, STAPLER HAND STAPLER HAND elp Bethany Lopez, DO DO bs6 Shelly MengRN RN js15 Mago Martinez ys2 Corrections: (The following items were deleted from the chart) 10:26 10:23 BP 134 / 57; Pulse 74bpm; Resp 18bpm; Pulse Ox 100%; Temp 98.7F; elp elp 11:12 11:07 CARDIAC MARKER PANEL+LAB sent. dsf EDMS 17:04 11:56 Neurological: Level of Consciousness is awake, confused, dsf dsf MTDD
--- NOTE | 2016-07-24 21:56 | EDDOCDS ---
Physician Documentation [facility] Name: Caro Carnes Age: 60 yrs Sex: Female : 1955 Arrival Date: 07/24/2016 Time: 10:20 Bed 15 Private MD: Aiden Nieves Disposition: 07/24 15:12 I have independently interviewed and examined the patient, and I agree with the sd1 investigation, diagnosis and treatment plan as documented by the Resident. Disposition: 07/24/16 14:37 Hospitalization ordered by Mago Martinez for Inpatient Admission. Preliminary diagnosis is Pneumonia in diseases classified elsewhere. - Bed requested for 4 [place]. - Status is Inpatient Admission. js15 - Condition is Stable. - Problem is new. - Symptoms have improved. Historical: - Allergies: tequin (mouth swells); - Home Meds: 1. amiodarone 200 mg Oral tab 1 tab once daily (Last dose: 07/23/2016) 2. aspirin 325 mg Oral tab 1 tab once daily (Last dose: 07/23/2016 21:00) 3. calcitriol 0.75 mcg oral cap three times a week at dialysis (Last dose: 07/24/2016 07:30) 4. Colace 100 mg oral cap 1 cap as needed (Last dose: 07/23/2016 21:00) 5. Crestor 20 mg Oral tab 1 tab nightly (Last dose: 07/23/2016 21:00) 6. cyclobenzaprine 5 mg Oral tab 1 tab 3 times per day as needed (Last dose: 07/23/2016 21:00) 7. diazepam 5 mg Oral tab 1 tab 2 times per day as needed (Last dose: 07/23/2016 21:00) 8. Epogen 3,000 unit/mL injection soln 3 times per wk at dialysis (Last dose: 07/24/2016 09:30) 9. hydrocodone-acetaminophen 5-325 mg Oral tab 1 tab every 12 hours as needed (Last dose: Unknown) 10. Lantus 100 unit/mL Sub-Q soln 46 unit nightly (Last dose: 07/23/2016 21:00) 11. levothyroxine 75 mcg Oral cap 1 cap once daily (Last dose: 07/23/2016 21:00) 12. Lovaza 1 gram oral cap 2 caps 2 times per day (Last dose: 07/23/2016 21:00) 13. magnesium oxide 400 mg Oral tab 400 mg daily (Last dose: 07/23/2016 21:00) 14. metoprolol tartrate 100 mg Oral tab 1 tab 2 times per day (Last dose: 07/23/2016 21:00) 15. Nephro-Mirella oral tab 1 tab daily (Last dose: 07/23/2016 21:00) 16. omeprazole 40 mg Oral cpDR 1 cap once daily (Last dose: 07/23/2016 21:00) 17. Renvela 800 mg oral tab 3 tabs 3 times per day (Last dose: 07/23/2016 21:00) 18. Spiriva with HandiHaler 18 mcg Inhl CpDv 1 cap once daily (Last dose: 07/22/2016) 19. SPS 15 gram/60 mL Oral susp 60 mL once daily if told to take by dialysis - has not taken in some time (Last dose: Unknown) 20. trazodone 100 mg Oral tab 1 tab nightly (Last dose: 07/23/2016 21:00) 21. Vitamin D Oral 54378 unit every 2 weeks (Last dose: 07/10/2016) 22. Zofran (as hydrochloride) 4 mg Oral tab 1 tabs every 8 hours as needed (Last dose: Unknown) - PMHx: Diabetes - IDDM: controlled; GERD; Hypercholesterolemia; Hypertension; Renal Failure with Dialysis; kidney failure; - PSHx: Hysterectomy; ; Craniotomy; Disc surgery; AV Fistula- Left arm; Nasal cauterization; cardiac catheterization; - Social history: Smoking status: Patient states former smoker of tobacco. No barriers to communication noted, The patient speaks fluent Marshallese. - Family history: Not pertinent. - : The pt / caregiver states he / she is not on anticoagulants. Home medication list is obtained from the patient. - Exposure Risk Screening:: None identified. Vital Signs: 10:23 BP 134 / 57; Pulse 74; Resp 24; Temp 98.7; Pulse Ox 100% ; elp 10:45 BP 155 / 90 (auto/); dsf 10:49 Pulse 78 MON; Pulse Ox 94% ; dsf 10:55 Weight 88.45 kg / 195 lbs (R); Height 5 ft. 1 in. (154.94 cm); dsf 11:00 Pulse 72 MON; Pulse Ox 100% ; dsf 11:00 BP 123 / 58 (auto/); dsf 11:15 BP 129 / 60 (auto/); dsf 11:15 Pulse 74 MON; Pulse Ox 100% ; dsf 11:30 BP 128 / 61 (auto/); dsf 11:30 Pulse 74 MON; Pulse Ox 100% ; dsf 11:45 BP 128 / 61 (auto/); dsf 11:45 Pulse 76 MON; Pulse Ox 100% ; dsf 12:00 BP 131 / 58 (auto/); dsf 12:00 Pulse 76 MON; Pulse Ox 100% ; dsf 12:15 BP 125 / 59 (auto/); dsf 12:15 Pulse 74 MON; Pulse Ox 100% ; dsf 12:30 BP 118 / 56 (auto/); dsf 12:30 Pulse 72 MON; Pulse Ox 100% ; dsf 12:45 BP 124 / 76 (auto/); dsf 12:45 Pulse 78 MON; Pulse Ox 91% ; dsf 13:59 BP 132 / 61 (auto/); dsf 13:59 Pulse 76 MON; Pulse Ox 88% ; dsf 14:03 Pulse 76 MON; Pulse Ox 91% ; dsf 17:04 Resp 21; Temp 97.4(TE); Pain 0/10; dsf 18:40 Pulse 76 MON; Pulse Ox 91% ; dsf 18:42 Resp 20; Temp 96.9; dsf 19:15 BP 122 / 59; Pulse 79; Resp 18; Temp 97.6(TE); Pulse Ox 92% on R/A; Pain 8/10; kb5 10:55 Body Mass Index 36.84 (88.45 kg, 154.94 cm) dsf MDM: 10:22 ECG WITH READING ER PHYS+CARDIAG ordered. EDMS 10:48 -Blood Culture (Adults Only), peripheral from different site, or from device/port/PICC bs6 etc. if present ordered. 10:48 Visual Lead/Pulse Ox/q 15 min VS ordered. bs6 10:48 IV Saline Lock ordered. bs6 10:48 Oxygen at 4L/Min NC or Home dosage ordered. bs6 10:48 Rhythm Strip to chart ordered. bs6 10:49 B-Type Natiuretic Peptide Ordered. EDMS 10:49 Basic Metabolic Profile Ordered. EDMS 10:49 CBC with Diff Ordered. EDMS 10:49 -Blood Culture Ordered. EDMS 10:49 Chest, 2 View (pa\E\lat) Ordered. EDMS 10:53 -Blood Culture (Adults Only), peripheral from different site, or from device/port/PICC deg etc. if present complete. 10:54 BLOOD CULTURES Ordered. EDMS 11:13 CARDIAC MARKER PANEL Ordered. EDMS 11:43 Financial registration complete. lg 12:54 B-Type Natiuretic Peptide Reviewed. sd1 12:54 Basic Metabolic Profile Reviewed. sd1 12:54 CBC with Diff Reviewed. sd1 12:54 CARDIAC MARKER PANEL Reviewed. sd1 13:11 Acetaminophen Tablet 650 mg PO once ordered. bs6 13:11 Dextromethorphan-Guaifenesin Liquid 10 mg-100 mg/5 mL 5 ml PO once ordered. bs6 13:12 D-Dimer Quant Ordered. EDMS 13:40 [facility] Payment Agreement was scanned into media[employer]unker and attached to record. lg 13:51 CT Chest Angio R/O PE Ordered. EDMS 14:24 cefTRIAXone 1 grams IVPB once over 30 mins; dilute in 50mL of NS or D5W ordered. bs6 15:37 CONSISTENT CARBOHYDRATES ordered. EDMS 15:38 INFLUENZA A&B RAPID ANTIGEN Ordered. EDMS 15:38 SPUTUM CULTURE AND GRAM STAIN Ordered. EDMS 16:05 THYROID STIMULATING HORMONE Ordered. EDMS 16:10 Admission / Observation Status ordered. EDMS 19:30 HYDROcodone-acetaminophen 5 mg-325 mg 1 tabs PO once ordered. js15 19:32 CBC WITH DIFFERENTIAL Ordered. EDMS 19:32 COMPLETE COMPHRENSIVE METABOLI Ordered. EDMS 19:32 MAGNESIUM LEVEL Ordered. EDMS Administered Medications: 13:33 Drug: Acetaminophen 650 mg [acetaminophen 325 mg tablet (2 tabs)] Route: PO; rs3 13:33 Drug: Dextromethorphan-Guaifenesin 5 ml [dextromethorphan-guaifenesin 10 mg-100 mg/5 mL rs3 oral liquid (5 mL)] Route: PO; 14:39 Drug: cefTRIAXone 1 grams [ceftriaxone 1 gram solution for injection] Route: IVPB; dsf Infused Over: 30 mins; Site: right antecubital; 17:06 Follow up: IV Status: Completed infusion; IV Intake: 20ml dsf 19:35 Drug: HYDROcodone-acetaminophen 1 tabs [hydrocodone 5 mg-acetaminophen 325 mg tablet (1 js15 tabs)] Route: PO; Signatures: Dispatcher [employer] EDMS Sarah Beth Griffin MD MD sd1 Abigail Victoria, Watch Inspector Final Movement Unit deg Nathalie Rios, Reg Reg lg Tr Gillespie, Watch Inspector Final Movement Unit ml3 Maddi Mckeon RN RN jc4 Bethany Lopez, DO bs6 Shelly Meng RN RN js15 Melina Meza RN rs3 Ladi Salazar RN dsf The chart was reviewed and I authenticate all verbal orders and agree with the evaluation and treatment provided.Corrections: (The following items were deleted from the chart) 11:12 11:07 CARDIAC MARKER PANEL+LAB ordered. EDMS EDMS 16:06 15:54 THYROID STIMULATING HORMONE ordered. EDMS EDMS Attachments: 13:40 [facility] lg MTDD
[2016-07-24 22:03] VITALS: BP 143/68
[2016-07-24] MEDS: MAGNESIUM OXIDE 400 MG TAB (MAG-OX) PO SCH (22:09)
[2016-07-24] MEDS: LEVOTHYROXINE 0.075 MG TAB (75 MCG) PO SCH (22:09)
[2016-07-24] MEDS: ASPIRIN 325 MG TAB PO SCH (22:09)
[2016-07-24] MEDS: NEPHRO-VIT TAB (NEPHROCAPS) PO SCH (22:10)
[2016-07-24] MEDS: AMIODARONE 200 MG TAB (PACERONE) PO SCH (22:24)
[2016-07-24] MEDS: (RENVELA) SEVELAMER **CARBONate** 800 MG TAB PO SCH (22:24)
[2016-07-24] MEDS: OMEPRAZOLE 20 MG CAP PO SCH (22:24)
[2016-07-24] MEDS: HumaLOG INSULIN (NovoLOG) PER UNIT SC SCH ×2 (22:24→22:25)
[2016-07-24] MEDS: LEVEMIR (INSULIN DETEMIR) 1 UNITS/0.01ML SC SCH (22:29)
[2016-07-24] MEDS: traZODone 100 MG TAB PO SCH (22:44)
[2016-07-24] MEDS: ROSUVASTATIN 10 MG TAB (CRESTOR) PO SCH (22:45)
[2016-07-24] MEDS: OMEGA-3 1050MG CAPSULE PO SCH (22:45)
[2016-07-24] MEDS: AZITHROMYCIN 500 MG, VIAL MATE ADAPTER 1 EACH in D5W 250 ML IV SCH (22:45)
[2016-07-24] MEDS: METOPROLOL TARTRATE 100 MG TAB PO SCH (22:45)
[2016-07-24] MEDS: guaiFENesin DM LIQ 10ML UD PO PRN (23:23)
[2016-07-25] MEDS: IPRATROPIUM 0.5MG/ALBUTEROL 2.5MG INH SOL UD 3ML (DUONEB)(J7620) NEB SCH ×4 (01:19→19:16)
[2016-07-25] MEDS: IPRATROPIUM 0.5MG/ALBUTEROL 2.5MG INH SOL UD 3ML (DUONEB)(J7620) NEB PRN (05:36)
[2016-07-25 05:58] LABS: EOS # 0.5 K/mm3 (0.0-0.50); EOS % 9.7 % (0.0-3.0); LARGE UNSTAINED CELL # 0.2 K/mm3 (0.0-0.4); LARGE UNSTAINED CELL % 4.5 % (0.0-4.0); LYMPH # 0.7 K/mm3 (1.5-4.5); LYMPH % 14.4 % (24.0-44.0); MEAN CORPUSCULAR HEMOGLOBIN 32.1 pg (27.0-33.0); MEAN CORPUSCULAR HGB CONC 32.7 g/dl (32.0-36.5); MEAN CORPUSCULAR VOLUME 98.2 fl (80.0-96.0); MONO # 0.6 K/mm3 (0.0-0.8); MONO % 11.3 % (0.0-5.0); NEUTROPHILS # 2.9 K/mm3 (1.8-7.7); NEUTROPHILS % 59.1 % (36.0-66.0); PLATELET COUNT, AUTOMATED 132 k/mm3 (150-450); RED CELL DISTRIBUTION WIDTH 14.8 % (11.5-14.5); WHITE BLOOD COUNT 4.9 K/mm3 (4.0-10.0)
[2016-07-25 06:00] VITALS: BP 151/72
[2016-07-25] MEDS: guaiFENesin DM LIQ 10ML UD PO PRN ×2 (06:01→15:34)
[2016-07-25] MEDS: LEVOTHYROXINE 0.075 MG TAB (75 MCG) PO SCH (06:01)
[2016-07-25 06:25] LABS: ALBUMIN/GLOBULIN RATIO 0.81 (1.00-1.93); BILIRUBIN,TOTAL 0.3 MG/DL (0.2-1.0); CALCIUM LEVEL 8.3 MG/DL (8.8-10.2); CREATININE FOR GFR 5.67 MG/DL (0.55-1.02); GLOMERULAR FILTRATION RATE 8.1 (>45); MAGNESIUM LEVEL 2.2 MG/DL (1.8-2.4); POTASSIUM SERUM 4.6 MEQ/L (3.5-5.1); TOTAL PROTEIN 6.7 GM/DL (6.4-8.2)
[2016-07-25] MEDS: HumaLOG INSULIN (NovoLOG) PER UNIT SC SCH ×4 (07:30→21:00)
[2016-07-25] MEDS ORDERED: DARBEPOETIN 100 MCG/0.5 ML *DIALYSIS* SYRINGE (J0882) IV SCH (08:00)
[2016-07-25] MEDS: TIOTROPIUM INHALER/CAPSULE (SPIRIVA) INH SCH (08:35)
[2016-07-25] MEDS: ASPIRIN 325 MG TAB PO SCH (08:58)
[2016-07-25] MEDS: MAGNESIUM OXIDE 400 MG TAB (MAG-OX) PO SCH (08:58)
[2016-07-25] MEDS: (RENVELA) SEVELAMER **CARBONate** 800 MG TAB PO SCH ×3 (08:58→17:43)
[2016-07-25] MEDS: OMEPRAZOLE 20 MG CAP PO SCH (08:58)
[2016-07-25] MEDS: NEPHRO-VIT TAB (NEPHROCAPS) PO SCH (08:58)
[2016-07-25] MEDS: METOPROLOL TARTRATE 100 MG TAB PO SCH ×2 (08:59→21:40)
[2016-07-25] MEDS: AMIODARONE 200 MG TAB (PACERONE) PO SCH (08:59)
[2016-07-25] MEDS: OMEGA-3 1050MG CAPSULE PO SCH ×2 (08:59→21:39)
[2016-07-25] MEDS ORDERED: CEFDINIR 300 MG CAP (OMNICEF) PO SCH (09:00)
--- NOTE | 2016-07-25 11:13 | IPNPDOC ---
Assessment/Plan Date Seen The patient was seen on 07/25/16. Problems Problems: (1) Left lower lobe pneumonia Status: Acute Problem Text: Patient states she is feeling improved today with respect to her breathing. She does have diffuse ronchi with rales in the LLL. She will be started on a low dose prednisone for 5-7 days for suspect of COPD involvement as well. This was suggested by and discussed with Dr. Guzman, who is seeing her for ESRD. Continue current antibiotic regimen with ceftriaxone and azithromycin. Incentive spirometry added and encouraged. (2) IDDM (insulin dependent diabetes mellitus) Status: Chronic Problem Text: Patient is on SSI with levemir - Reduced dosage compared to home due to reduced PO intake while in the hospital. Hypoglycemic protocol in place. (3) Chronic pain Status: Chronic Problem Text: Continue home medications. No complaints today. (4) Anxiety Status: Chronic Problem Text: Continue home valium as needed, no acute complaints today. (5) HLD (hyperlipidemia) Status: Chronic Problem Text: Continue crestor and lovaza (6) HTN (hypertension) Status: Chronic Problem Text: BP mostly controlled. Will leave management of htn to the nephrology team. (7) GERD (gastroesophageal reflux disease) Status: Chronic Problem Text: Continue prilosec. No acute complaints today. (8) COPD (chronic obstructive pulmonary disease) Status: Acute Problem Text: Started on low dose prednisone for 5-7 days. (9) Insomnia Status: Chronic Problem Text: Continue home medication of trazodone. (10) Hyperkalemia Status: Acute Problem Text: Potassium increased today, but still WNL. Will defer management to nephrology. (11) Hypomagnesemia Status: Acute (12) ESRD (end stage renal disease) on dialysis Onset Date: 07/14/2014 Status: Chronic Problem Text: Will defer management to nephrology. Plan / VTE VTE Prophylaxis Ordered?: Yes Subjective Review of Systems CC/HPI The patient is a 60-year-old female admitted with a reason for visit of Esrd On Dialysis; Pna. Events since last encounter Patient seen at bedside this morning. She appears to be resting comfortably. She was awoken for examination. Patient states that she is feeling improved today compared to yesterday. She cites that she is breathing a little easier. She does continue having a cough with white/clear sputum. No new acute complaints today. Constitutional: Denies: Chills, Fever Pulmonary: Reports: Cough, Dyspnea Cardiovascular: Denies: Chest Pain, Palpitations Gastrointestinal: Denies: Abdominal Pain, Constipation, Diarrhea, Hematochezia , Melena, Nausea, Vomiting Genitourinary: Denies: Dysuria, Frequency Psych: Reports: Mood Normal Objective Physical Examination General Exam: Positive: Alert, Cooperative, No Acute Distress Eye Exam: Positive: Conjunctiva & lids normal, Negative: Sclera icteric ENT Exam: Positive: Atraumatic, Mucous membr. moist/pink Neck Exam: Positive: Supple Chest Exam: Positive: Rales, Rhonchi (diffusely), Negative: Clear to auscultation Heart Exam: Positive: Normal S1, Normal S2, Rate Normal, Regular Rhythm Abdomen Exam: Positive: Normal bowel sounds, Soft, Negative: Tenderness Extremity Exam: Negative: Edema Neuro Exam: Positive: Cranial Nerves 3-12 NL, Normal Speech Vital Signs/I&O Vital Signs Date Time Temp Pulse Resp B/P Pulse Ox O2 Delivery O2 Flow Rate FiO2 07/25/16 08:59 73 151/72 07/25/16 06:00 97.8 16 95 Nasal Cannula 2.0 I&O- Last 24 Hours up to 6 AM 07/25/16 06:00 Intake Total 495 ml Output Total 0 ml Balance 495 ml Laboratory Data Labs 24H Laboratory Tests 2 07/24/16 10:48: Anion Gap 9, B-Type Natriuretic Peptide 187H, White Blood Count 4.4, Red Blood Count 3.50L, Hemoglobin 10.9L, Hematocrit 34.6L, Mean Corpuscular Volume 98.8H, Mean Corpuscular Hemoglobin 31.2, Mean Corpuscular Hemoglobin Concent 31.6L, Red Cell Distribution Width 15.7H, Platelet Count 145L, Neutrophils (%) (Auto) 72.0H, Lymphocytes (%) (Auto) 9.1L, Monocytes (%) (Auto) 9.0H, Eosinophils (%) ( Auto) 6.7H, Basophils (%) (Auto) 1.2H, Neutrophils # (Auto) 3.2, Lymphocytes # ( Auto) 0.5L, Monocytes # (Auto) 0.4, Eosinophils # (Auto) 0.3, Basophils # (Auto ) 0.0, Blood Urea Nitrogen 11, Creatinine 3.28H, Sodium Level 142, Potassium Level 3.7, Chloride Level 101, Carbon Dioxide Level 32, Calcium Level 8.9, Total Creatine Kinase 33, Creatine Kinase MB 1.0, Creatine Kinase MB Relative Index 3.03, D-Dimer, Quantitative 944.6H, Glomerular Filtration Rate 15.3L, Large Unclassified Cells # 0.1, Large Unclassified Cells % 2.0, Thyroid Stimulating Hormone (TSH) 0.807, Troponin I < 0.02 07/24/16 22:17: Bedside Glucose (Misc Panel) 107 07/25/16 05:13: Anion Gap 11, White Blood Count 4.9, Red Blood Count 3.12L, Hemoglobin 10.0L, Hematocrit 30.7L, Mean Corpuscular Volume 98.2H, Mean Corpuscular Hemoglobin 32.1, Mean Corpuscular Hemoglobin Concent 32.7, Red Cell Distribution Width 14.8H, Platelet Count 132L, Neutrophils (%) (Auto) 59.1, Lymphocytes (%) (Auto) 14.4L, Monocytes (%) (Auto) 11.3H, Eosinophils (%) (Auto) 9.7H, Basophils (%) ( Auto) 1.0, Neutrophils # (Auto) 2.9, Lymphocytes # (Auto) 0.7L, Monocytes # ( Auto) 0.6, Eosinophils # (Auto) 0.5, Basophils # (Auto) 0.0, Blood Urea Nitrogen 28#H, Creatinine 5.67#H, Sodium Level 137, Potassium Level 4.6#, Chloride Level 97L, Carbon Dioxide Level 29, Calcium Level 8.3L, Glomerular Filtration Rate 8.1L, Large Unclassified Cells # 0.2, Large Unclassified Cells % 4.5H, Aspartate Amino Transf (AST/SGOT) 12L, Alanine Aminotransferase (ALT/ SGPT) 16, Alkaline Phosphatase 105, Total Bilirubin 0.3, Total Protein 6.7, Albumin 3.0L, Albumin/Globulin Ratio 0.81L, Magnesium Level 2.2 CBC/BMP Laboratory Tests 07/24/16 10:48 Calcium Level 8.9, Total Creatine Kinase 33, Red Blood Count 3.50 L, Mean Corpuscular Volume 98.8 H, Mean Corpuscular Hemoglobin 31.2, Mean Corpuscular Hemoglobin Concent 31.6 L, Red Cell Distribution Width 15.7 H, Neutrophils (%) ( Auto) 72.0 H, Lymphocytes (%) (Auto) 9.1 L, Monocytes (%) (Auto) 9.0 H, Eosinophils (%) (Auto) 6.7 H, Basophils (%) (Auto) 1.2 H, Neutrophils # (Auto) 3.2, Lymphocytes # (Auto) 0.5 L, Monocytes # (Auto) 0.4, Eosinophils # (Auto) 0.3, Basophils # (Auto) 0.0 07/25/16 05:13 Calcium Level 8.3 L, Red Blood Count 3.12 L, Mean Corpuscular Volume 98.2 H, Mean Corpuscular Hemoglobin 32.1, Mean Corpuscular Hemoglobin Concent 32.7, Red Cell Distribution Width 14.8 H, Neutrophils (%) (Auto) 59.1, Lymphocytes (%) ( Auto) 14.4 L, Monocytes (%) (Auto) 11.3 H, Eosinophils (%) (Auto) 9.7 H, Basophils (%) (Auto) 1.0, Neutrophils # (Auto) 2.9, Lymphocytes # (Auto) 0.7 L, Monocytes # (Auto) 0.6, Eosinophils # (Auto) 0.5, Basophils # (Auto) 0.0, Aspartate Amino Transf (AST/SGOT) 12 L, Alanine Aminotransferase (ALT/SGPT) 16, Alkaline Phosphatase 105, Total Bilirubin 0.3, Total Protein 6.7, Albumin 3.0 L FSBS Laboratory Tests Test 07/24/16 22:17 Range/Units Bedside Glucose (Misc Panel) 107 80-115 MG/DL Microbiology Microbiology 07/24/16 Blood Culture, Received Pending 07/24/16 Blood Culture, Received Pending GME ATTESTATION GME ATTESTATION My preceptor for this patient encounter was physically present in the building during the encounter and was fully available. As needed, all aspects of the patient interview, examination, medical decision making process, and medical care plan development were reviewed and approved by the preceptor. Preceptor is aware and concurs with the plan as stated in the body of this note and will attest to such by his/her cosignature. ATTENDING NOTE Attending Note I saw and evaluated the patient, and agree with plan of care as discussed and documented above by the resident. Patient is doing well on current regimen, and oxygen demand is decreasing. Prednisone added for possible reactive airway disease. If patient remains stable, will plan to switch to by mouth Cefdinir and azithromycin 07/26. MD AJITH Kahn JOSEPH R, DO Jul 25, 2016 09:54 LOULOU AIKEN MD Jul 25, 2016 17:01
--- NOTE | 2016-07-25 11:39 | CR ---
DATE OF CONSULTATION: 07/25/2016 REQUESTING PHYSICIAN: Dr. Mago Martinez CONSULTING PHYSICIAN: Dr. Gina Guzman REASON FOR CONSULTATION: Management of end-stage renal disease on hemodialysis. CHIEF COMPLAINT: Patient presented to emergency room yesterday with progressive cough and shortness of breath for the last 4 days. HISTORY OF PRESENT ILLNESS: Caro Carnes is a 60-year-old female with a past medical history of end-stage renal disease on hemodialysis every Thursday, , Thursday. She is well known to the nephrology service. She has multiple other comorbidities including chronic obstructive pulmonary disease (COPD), insulin-dependent diabetes mellitus, and other past medical history as mentioned below. She presented to the emergency room yesterday with a 4 day history of progressive cough, shortness of breath, congestion, and she also had feeling of chills. She was referred to the emergency room by the dialysis center for further management of cough and wheezing. Further investigation in the emergency room, including xray of the chest, showed that she has left lower lobe infiltrate. Patient was admitted for further management of pneumonia. Nephrology service was called for management of end-stage renal disease. PAST MEDICAL HISTORY: As mentioned above, she has history of: 1. End-stage renal disease requiring hemodialysis every Thursday, , Thursday. 2. Insulin-dependent diabetes mellitus. 3. History of atrial flutter. 4. History of intracranial bleeding secondary to Coumadin. 5. Hypertensive heart disease. 6. Hyperparathyroidism secondary to end-stage renal disease. 7. Anemia secondary to end-stage renal disease. 8. Anxiety. 9. Morbid obesity. 10. Obstructive sleep apnea/ 11. COPD. 12. Hypothyroidism. 13. Hyperlipidemia. PAST SURGICAL HISTORY: Status post section times two, status post left forearm arteriovenous (AV) fistula placement, history of lumbar discectomy, hysterectomy, and history of ventriculostomy in June 2008 because of intracranial bleed. ALLERGIES: Patient is allergic to QUINOLONES. CURRENT INPATIENT MEDICATIONS: Her medications include: - Rocephin 2 grams intravenous (IV) every 24 hours - azithromycin 500 mg IV every 24 hours - Tylenol - albuterol ipratropium nebulizations - amiodarone 200 mg daily - aspirin - Flexeril - Valium 5 mg by mouth twice a day as needed for anxiety - Colace - glucagon - insulin Levemir 25 units nightly - insulin sliding scale - Synthroid 75 mcg daily - magnesium oxide 400 mg by mouth daily - metoprolol 100 mg by mouth twice a day - omeprazole - rosuvastatin 20 mg nightly - Renvela 2.4 grams by mouth with meals - trazodone 100 mg nightly - vitamin B complex FAMILY HISTORY: No significant family history of end-stage renal disease requiring hemodialysis. There is positive history of CVA in mother and COPD in father and diabetes in the siblings. SOCIAL HISTORY: Patient is and retired. She denies any smoking at this time. She is a former smoker. She denies any illicit drug abuse or alcohol abuse. REVIEW OF SYSTEMS: CONSTITUTIONAL: Patient reported chills, otherwise she denies any weight loss or weakness. EYES: She denies any blurry vision. EARS/NOSE/THROAT (ENT): She denies any ear discharge, ear pain, dysphagia, or odynophagia. CARDIOVASCULAR: She denies any chest pain or palpitations. She does have history of atrial flutter. RESPIRATORY: Patient reported shortness of breath, congestion, and wheezing. GASTROINTESTINAL (GI): She denies any nausea, vomiting, pain in abdomen, or constipation. GENITOURINARY: She gives history of end-stage renal disease requiring dialysis. MUSCULOSKELETAL: She denies any muscle aches or pains. CENTRAL NERVOUS SYSTEM (AFTER SCHOOL DRIVER): She gives history of intracranial bleed in the past, otherwise no history of seizures or CVA. SKIN: She denies any rashes or ulcers. HEMATOLOGICAL/ONCOLOGICAL: She gives history of anemia secondary to end-stage renal disease. ENDOCRINE: Patient is diabetic and she has secondary hyperparathyroidism. PSYCHIATRIC: Patient gives history of anxiety. All other review of systems is negative. PHYSICAL EXAMINATION: GENERAL: Patient is awake, alert, oriented times three, laying in bed, no apparent distress at this time. VITAL SIGNS: Temperature is 97.8 degrees Fahrenheit, blood pressure is 151/72, pulse 73, respiratory rate 16, saturating at 95% on nasal cannula. INTAKE/OUTPUT: There is no urine output recorded, although patient reports that she makes some urine. Weight in the bed scale is 88.4 kg. HEAD and NECK: Extraocular muscles intact. Pupils equally round and reactive to light. Neck is supple. There is no jugular venous distention (JVD). CARDIOVASCULAR: S1, S2, regular rate. No murmur, rub, or gallop. RESPIRATORY: Decreased breath sounds at bases and positive expiratory rhonchi bilaterally at the bases. ABDOMEN: Soft, obese, positive bowel sounds, nontender. No ascites. No organomegaly. EXTREMITIES: No clubbing or cyanosis. No edema of the extremities. Pulses are 2+. SKIN: No rashes or ulcers. AFTER SCHOOL DRIVER: No focal neurological deficit. Power is 5/5 in all extremities. DIALYSIS ACCESS: Patient has a left forearm AV fistula with positive thrill and bruit. LABORATORY REVIEW: CBC showed WBC 4.9, hemoglobin 10, platelets 132. D-dimer was 944. BMP showed sodium 137, potassium 4.6, chloride 97, bicarbonate 29, BUN 28, creatinine is 5.6, calcium 8.3, albumin was 3. Microbiology: Blood cultures are pending. IMAGING: CT angiogram of the chest was done yesterday which showed no pulmonary emboli, progression of the patchy nodular infiltrate, opacities within the left lower lobes and lingula. There were a few paraesophageal lymph nodes in the epigastric region as well. ASSESSMENT: 60-year-old female with past medical history of end-stage renal disease on hemodialysis every Thursday, , Thursday, history of chronic obstructive pulmonary disease (COPD), insulin-dependent diabetes, admitted this time with left lower lobe pneumonia. Nephrology service following the patient for management of end-stage renal disease. PLAN: 1. Left lower lobe pneumonia. Patient has been started on IV Rocephin and azithromycin. Patient reports some improvement in the symptoms. Continue the antibiotics as per primary team. 2. Chronic obstructive pulmonary disease (COPD), cough, and wheezing. Patient has already been started on nebulizations by the primary team. I think this patient would benefit from a short course of steroids as well. I will discuss this with the primary team today. 3. End-stage renal disease on hemodialysis. Patient was dialyzed yesterday, although this patient got the IV contrast yesterday for CT scan, there is no urgent need to do hemodialysis today, patient will be dialyzed according to her regular schedule tomorrow. 4. Insulin-dependent diabetes. Continue current dose of insulin sliding scale and Levemir. Rest of the management is as per primary team. 5. Anemia in end-stage renal disease. Patient's hemoglobin is 10 today. I will give her a dose of Aranesp with hemodialysis tomorrow. 6. History of atrial flutter. Patient is currently on amiodarone. Heart rate is controlled at this time. No anticoagulation at this time because of history of intracerebellar bleed. 7. Chronic kidney disease mineral bone disease. Continue current dose of Renvela 2.4 grams by mouth three times a day with meals. Thank you for involving us in the care of this patient. We shall be happy to follow the patient along with you tomorrow morning.
[2016-07-25 11:45] VITALS: BP 118/56
[2016-07-25] MEDS: predniSONE 10 MG TAB PO SCH (11:50)
[2016-07-25] MEDS: cefTRIAXone SOD 2 GM in D5W MINI-BAG PLUS 50 ML IV SCH (15:24)
[2016-07-25] MEDS: ACETAMINOPHEN TAB 650MG DOSE (2X325MG) PO PRN (15:25)
[2016-07-25 20:35] VITALS: BP 127/65
[2016-07-25] MEDS: traZODone 100 MG TAB PO SCH (21:39)
[2016-07-25] MEDS: AZITHROMYCIN 500 MG, VIAL MATE ADAPTER 1 EACH in D5W 250 ML IV SCH (21:39)
[2016-07-25] MEDS: ROSUVASTATIN 10 MG TAB (CRESTOR) PO SCH (21:39)
[2016-07-25] MEDS: LEVEMIR (INSULIN DETEMIR) 1 UNITS/0.01ML SC SCH (21:40)
[2016-07-26] MEDS: IPRATROPIUM 0.5MG/ALBUTEROL 2.5MG INH SOL UD 3ML (DUONEB)(J7620) NEB SCH ×4 (00:39→19:08)
[2016-07-26] MEDS: ACETAMINOPHEN TAB 650MG DOSE (2X325MG) PO PRN ×2 (04:14→20:34)
[2016-07-26] MEDS: guaiFENesin DM LIQ 10ML UD PO PRN ×3 (04:42→20:34)
[2016-07-26 05:40] VITALS: BP 126/61
[2016-07-26 06:27] LABS: EOS # 0.2 K/mm3 (0.0-0.50); EOS % 4.3 % (0.0-3.0); LARGE UNSTAINED CELL # 0.1 K/mm3 (0.0-0.4); LARGE UNSTAINED CELL % 2.2 % (0.0-4.0); LYMPH # 0.7 K/mm3 (1.5-4.5); LYMPH % 11.6 % (24.0-44.0); MEAN CORPUSCULAR HEMOGLOBIN 30.6 pg (27.0-33.0); MEAN CORPUSCULAR HGB CONC 31.1 g/dl (32.0-36.5); MEAN CORPUSCULAR VOLUME 98.4 fl (80.0-96.0); MONO # 0.4 K/mm3 (0.0-0.8); NEUTROPHILS # 3.9 K/mm3 (1.8-7.7); NEUTROPHILS % 72.9 % (36.0-66.0); PLATELET COUNT, AUTOMATED 159 k/mm3 (150-450); RED CELL DISTRIBUTION WIDTH 15.5 % (11.5-14.5); WHITE BLOOD COUNT 5.3 K/mm3 (4.0-10.0)
[2016-07-26] MEDS: predniSONE 10 MG TAB PO SCH (06:39)
[2016-07-26] MEDS: (RENVELA) SEVELAMER **CARBONate** 800 MG TAB PO SCH ×3 (06:40→17:54)
[2016-07-26] MEDS: LEVOTHYROXINE 0.075 MG TAB (75 MCG) PO SCH (06:40)
[2016-07-26] MEDS: OMEPRAZOLE 20 MG CAP PO SCH (06:40)
[2016-07-26] MEDS: OMEGA-3 1050MG CAPSULE PO SCH ×2 (06:40→21:32)
[2016-07-26] MEDS: ASPIRIN 325 MG TAB PO SCH (06:40)
[2016-07-26] MEDS: AMIODARONE 200 MG TAB (PACERONE) PO SCH (06:40)
[2016-07-26] MEDS: NEPHRO-VIT TAB (NEPHROCAPS) PO SCH (06:40)
[2016-07-26] MEDS: METOPROLOL TARTRATE 100 MG TAB PO SCH ×2 (06:41→21:32)
[2016-07-26] MEDS: MAGNESIUM OXIDE 400 MG TAB (MAG-OX) PO SCH (06:46)
[2016-07-26 06:56] LABS: ALBUMIN/GLOBULIN RATIO 0.67 (1.00-1.93); BILIRUBIN,TOTAL 0.3 MG/DL (0.2-1.0); CALCIUM LEVEL 8.2 MG/DL (8.8-10.2); CREATININE FOR GFR 7.44 MG/DL (0.55-1.02); GLOMERULAR FILTRATION RATE 5.9 (>45); POTASSIUM SERUM 4.3 MEQ/L (3.5-5.1); TOTAL PROTEIN 7.5 GM/DL (6.4-8.2)
[2016-07-26] MEDS: HumaLOG INSULIN (NovoLOG) PER UNIT SC SCH ×4 (07:50→21:00)
[2016-07-26] MEDS: TIOTROPIUM INHALER/CAPSULE (SPIRIVA) INH SCH (08:15)
--- NOTE | 2016-07-26 08:38 | IPNPDOC ---
Assessment/Plan Date Seen The patient was seen on 07/26/16. Problems Problems: (1) Left lower lobe pneumonia Status: Acute Problem Text: 07/25 - Patient states she is feeling improved today with respect to her breathing. She does have diffuse ronchi with rales in the LLL. She will be started on a low dose prednisone for 5-7 days for suspect of COPD involvement as well. This was suggested by and discussed with Dr. Guzman, who is seeing her for ESRD. Continue current antibiotic regimen with ceftriaxone and azithromycin. Incentive spirometry added and encouraged. 07/26 - Patient had some difficulty with dyspnea overnight, but it seems to have been more fluid volume related as it only bothered her when lying flat, not when sitting upright. Her lung sounds do not sound much improved today with crackles in the LLL. She was being taken to dialysis at the end of our conversation today, so hopefully they will be able to draw off some fluid and help her with the nocturnal dyspnea. Will continue antibiotics at this time with ceftriaxone and azithromycin (Day 3). Encouraged continued use of incentive spirometry. (2) ESRD (end stage renal disease) on dialysis Onset Date: 07/14/2014 Status: Acute Problem Text: Patient went to dialysis this morning (07/26). Will defer management to nephrology. (3) IDDM (insulin dependent diabetes mellitus) Status: Acute Problem Text: Patient is on SSI with levemir - Reduced dosage compared to home due to reduced PO intake while in the hospital. Hypoglycemic protocol in place. (4) Chronic pain Status: Acute Problem Text: Continue home medications. No complaints today. (5) Anxiety Status: Acute Problem Text: Continue home valium as needed, no acute complaints today. (6) HLD (hyperlipidemia) Status: Acute Problem Text: Continue crestor and lovaza (7) HTN (hypertension) Status: Acute Problem Text: BP mostly controlled. Will leave management of htn to the nephrology team. (8) GERD (gastroesophageal reflux disease) Status: Acute Problem Text: Continue prilosec. No acute complaints today. (9) COPD (chronic obstructive pulmonary disease) Status: Acute Problem Text: Started on low dose prednisone for 5-7 days. (10) Insomnia Status: Acute Problem Text: Continue home medication of trazodone. (11) Hyperkalemia Status: Acute Problem Text: Potassium increased today, but still WNL. Will defer management to nephrology. (12) Hypomagnesemia Status: Acute Plan / VTE VTE Prophylaxis Ordered?: Yes Subjective Review of Systems CC/HPI The patient is a 60-year-old female admitted with a reason for visit of Esrd On Dialysis; Pna. Events since last encounter Patient states that she had trouble sleeping overnight, mostly because every time she would try to lie flat, she would feel like she couldn't breath. At one point over night her sats dropped to 90% on RA, she was placed on 2L NC. During the exam this morning she was 95% on RA and resting comfortably in her chair. She was taken to dialysis at the end of our conversation. No other acute complaints today. General: Reports: Fatigue Constitutional: Denies: Chills, Fever Pulmonary: Reports: Cough (clear sputum), Dyspnea Cardiovascular: Denies: Chest Pain, Palpitations Gastrointestinal: Denies: Abdominal Pain, Constipation, Diarrhea, Hematochezia , Melena, Nausea, Vomiting Genitourinary: Denies: Dysuria, Frequency Objective Physical Examination General Exam: Positive: Alert, Cooperative, No Acute Distress Eye Exam: Positive: Conjunctiva & lids normal, Negative: Sclera icteric ENT Exam: Positive: Atraumatic, Mucous membr. moist/pink Neck Exam: Positive: Supple Chest Exam: Positive: Rales (LLL), Negative: Clear to auscultation Heart Exam: Positive: Normal S1, Normal S2, Rate Normal, Regular Rhythm Abdomen Exam: Positive: Normal bowel sounds, Soft, Negative: Tenderness Extremity Exam: Negative: Edema Neuro Exam: Positive: Cranial Nerves 3-12 NL, Normal Speech Psych Exam: Positive: Oriented x 3 Vital Signs/I&O Vital Signs Date Time Temp Pulse Resp B/P Pulse Ox O2 Delivery O2 Flow Rate FiO2 07/26/16 06:41 70 126/61 07/26/16 05:40 97.6 18 97 Nasal Cannula 2.0 I&O- Last 24 Hours up to 6 AM 07/26/16 06:00 Intake Total 1985 ml Output Total 1300 ml Balance 685 ml Laboratory Data Labs 24H Laboratory Tests 2 07/25/16 12:13: Bedside Glucose (Misc Panel) 123H 07/25/16 16:21: Bedside Glucose (Misc Panel) 152H 07/25/16 20:33: Bedside Glucose (Misc Panel) 198H 07/26/16 05:26: Blood Urea Nitrogen 47#H, Creatinine 7.44H, Sodium Level 139, Potassium Level 4.3, Chloride Level 100, Carbon Dioxide Level 28, Calcium Level 8.2L, Aspartate Amino Transf (AST/SGOT) 12L, Alanine Aminotransferase (ALT/SGPT) 21, Alkaline Phosphatase 121H, Total Bilirubin 0.3, Total Protein 7.5, Albumin 3.0L, Albumin/ Globulin Ratio 0.67L, Anion Gap 11, White Blood Count 5.3, Red Blood Count 3.20L , Hemoglobin 9.8L, Hematocrit 31.5L, Mean Corpuscular Volume 98.4H, Mean Corpuscular Hemoglobin 30.6, Mean Corpuscular Hemoglobin Concent 31.1L, Red Cell Distribution Width 15.5H, Platelet Count 159, Neutrophils (%) (Auto) 72.9H , Lymphocytes (%) (Auto) 11.6L, Monocytes (%) (Auto) 8.0H, Eosinophils (%) (Auto ) 4.3H, Basophils (%) (Auto) 1.0, Neutrophils # (Auto) 3.9, Lymphocytes # (Auto ) 0.7L, Monocytes # (Auto) 0.4, Eosinophils # (Auto) 0.2, Basophils # (Auto) 0.0 , Glomerular Filtration Rate 5.9L, Large Unclassified Cells # 0.1, Large Unclassified Cells % 2.2 CBC/BMP Laboratory Tests 07/26/16 05:26 Calcium Level 8.2 L, Aspartate Amino Transf (AST/SGOT) 12 L, Alanine Aminotransferase (ALT/SGPT) 21, Alkaline Phosphatase 121 H, Total Bilirubin 0.3 , Total Protein 7.5, Albumin 3.0 L, Red Blood Count 3.20 L, Mean Corpuscular Volume 98.4 H, Mean Corpuscular Hemoglobin 30.6, Mean Corpuscular Hemoglobin Concent 31.1 L, Red Cell Distribution Width 15.5 H, Neutrophils (%) (Auto) 72.9 H, Lymphocytes (%) (Auto) 11.6 L, Monocytes (%) (Auto) 8.0 H, Eosinophils (%) ( Auto) 4.3 H, Basophils (%) (Auto) 1.0, Neutrophils # (Auto) 3.9, Lymphocytes # ( Auto) 0.7 L, Monocytes # (Auto) 0.4, Eosinophils # (Auto) 0.2, Basophils # (Auto ) 0.0 FSBS Laboratory Tests Test 07/25/16 12:13 07/25/16 16:21 07/25/16 20:33 Range/Units Bedside Glucose (Misc Panel) 123 152 198 80-115 MG/DL Microbiology Microbiology 07/24/16 Blood Culture - Preliminary, Resulted No growth after 24 hours . All specim... 07/24/16 Blood Culture - Preliminary, Resulted No growth after 24 hours . All specim... GME ATTESTATION GME ATTESTATION My preceptor for this patient encounter was physically present in the building during the encounter and was fully available. As needed, all aspects of the patient interview, examination, medical decision making process, and medical care plan development were reviewed and approved by the preceptor. Preceptor is aware and concurs with the plan as stated in the body of this note and will attest to such by his/her cosignature. ATTENDING NOTE Attending Note Attending attestation: I saw and evaluated the patient, and agree with the plan of care as discussed and documented above. MD AJITH Kahn,YANCY Galvan DO Jul 26, 2016 08:38 LOULOU AIKEN MD Jul 28, 2016 12:08
[2016-07-26] MEDS ORDERED: methylPREDNISolone INJ 125 MG/2 ML VIAL (J2930) IV STA (09:35)
[2016-07-26] MEDS ORDERED: HEPARIN 1,000 UNITS/ML 10ML VIAL (FOR RADIOLOGY& DIALYSIS ONLY) IV ONE (10:00)
[2016-07-26] MEDS ORDERED: LIDOCAINE 1% SDV 5 ML VIAL SC ONE (10:00)
[2016-07-26 14:00] VITALS: BP 130/60
[2016-07-26] MEDS: cefTRIAXone SOD 2 GM in D5W MINI-BAG PLUS 50 ML IV SCH (15:15)
--- NOTE | 2016-07-26 19:42 | IPN ---
DATE: 07/24/2016 SUBJECTIVE: The patient was seen and examined at the bedside this morning during hemodialysis procedure. She was tolerating the hemodialysis procedure well, but the patient complained that she was short of breath, all night she was coughing, and she was also complaining of shortness of breath while she was getting dialysis. REVIEW OF SYSTEMS: The patient denies any fevers, chills, rigors, headache, nausea, vomiting, chest pain. She does report persistent congestion and shortness of breath not being improved with the current medication. She denies any pain in the abdomen, constipation, or diarrhea. The rest of the review of systems is negative. OBJECTIVE: VITAL SIGNS: Temperature is 97.6 degrees Fahrenheit, blood pressure is 126/61, pulse is 70, respiratory rate of 18, saturating 97% on nasal cannula. Intake and output: Urine output recorded as 1200 mL yesterday and 100 mL so far today since overnight. PHYSICAL EXAMINATION: GENERAL: The patient is awake, alert, oriented times three. Sitting on the sofa and getting hemodialysis done. Mild respiratory distress. HEAD AND NECK EXAM: Extraocular muscles are intact. Pupils are equal, round and reactive to light. NECK: Supple. There is no jugular venous distention (JVD). CARDIOVASCULAR: S1, S2. Regular rate. No murmur, rub or gallop. RESPIRATORY: The patient has diffuse bilateral expiratory rhonchi all over the chest and there are decreased breath sounds at the bases. ABDOMEN: Soft, positive bowel sounds. Nontender. No ascites. No organomegaly. EXTREMITIES: No clubbing or cyanosis. Pulses are 2+. NEUROLOGIC: No focal neurological deficit. Power is 5/5 in all extremities. SKIN: No rashes or ulcers. DIALYSIS ACCESS: The patient has a left forearm AV fistula, which is being used for dialysis at this time. LABORATORY REVIEW: Complete blood count (CBC) showed a WBC of 5.3, hemoglobin 9.8, platelets are 159. Basic metabolic panel (BMP) showed sodium 139, potassium 4.3, chloride 100, bicarbonate 28, BUN 47, creatinine 7.4, calcium 8.2. Alkaline phosphatase 121, albumin was 3. Microbiology: Blood cultures are negative so far. CURRENT MEDICATIONS: The patient's current medications were all reviewed by me. She continues to be on intravenous Rocephin and azithromycin, and I started the patient on Solu-Medrol 60 mg intravenously every 12 hours as well. Oral prednisone was stopped. ASSESSMENT: 60-year-old female with a past medical history of end stage renal disease on hemodialysis every Thursday, , Thursday, history of chronic obstructive pulmonary disease (COPD), insulin-dependent diabetes, admitted this time with left lower lobe pneumonia. Nephrology service following the patient for management of end-stage renal disease. PLAN: 1. Left lower lobe pneumonia. Continue current dose of intravenous Rocephin and azithromycin. Her leukocytosis is better at this time. 2. Chronic obstructive pulmonary disease (COPD) exacerbation. The is still having a lot of wheezing, cough, shortness of breath. I got the stat nebulizations done while the patient was being dialyzed and I also started stat Solu-Medrol 60 mg IV twice a day, first dose was given during dialysis. Oral prednisone has been stopped. Continue nebulizations around the clock after dialysis as well. 3. End stage renal disease on hemodialysis. The patient is being dialyzed at this time according to her regular schedule. We shall try to do an ultrafiltration of about 2 to 2.5 kg as tolerated by her blood pressure. 4. Anemia in end stage renal disease. The patient will be given a dose of Aranesp 200 mcg IV with hemodialysis.
[2016-07-26 20:20] VITALS: BP 129/75
[2016-07-26] MEDS: NORCO, ANEXSIA 5/325MG TABLET (HYDROcodone/ACETAMINOPHEN) PO PRN (20:35)
[2016-07-26] MEDS: AZITHROMYCIN 500 MG, VIAL MATE ADAPTER 1 EACH in D5W 250 ML IV SCH (21:31)
[2016-07-26] MEDS: traZODone 100 MG TAB PO SCH (21:31)
[2016-07-26] MEDS: ROSUVASTATIN 10 MG TAB (CRESTOR) PO SCH (21:32)
[2016-07-26] MEDS: LEVEMIR (INSULIN DETEMIR) 1 UNITS/0.01ML SC SCH (21:33)
--- NOTE | 2016-07-26 22:56 | EDDOCDS ---
Nurse's Notes [facility] Name: Caro Carnes Age: 60 yrs Sex: Female : 1955 Arrival Date: 07/24/2016 Time: 10:20 Bed 15 Private MD: Aiden Nieves Diagnosis: Pneumonia in diseases classified elsewhere Presentation: 07/24 10:23 Presenting complaint: Patient states: barking cough for the past 2 days. Feels cold, jc4 achy, just can't breathe. Chest heaviness began yesterday. States short of breath at rest since yesterday. Was seen at dialysis this morning and was told by nurse to come here. Suicide/Homicide risk assessment- the patient denies having any suicidal and/or homicidal ideations and does not present with any other emotional, behavioral or mental health complaints. 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 Transition of care: patient was received from a primary care office; [facility]. 10:23 Acuity: MUNDO Level 2 jc4 10:23 Method Of Arrival: Wheelchair jc4 21:55 Adult Sepsis Screening: The patient does not have new or worsening altered mentation. js15 Patient has a respiratory rate of greater than or equal to 22 (1 point). Systolic blood pressure is greater than 100. Patient has a qSOFA score of 1- Negative Sepsis Screen. Triage Assessment: 10:31 General: Appears ill. Pain: Pain currently is 9 out of 10 on a pain scale. HIV jc4 screening NA for this visit Offered previously. Respiratory: Onset: The symptoms/episode began/occurred 2 days ago. Historical: - Allergies: tequin (mouth swells); - Home Meds: 1. amiodarone 200 mg Oral tab 1 tab once daily (Last dose: 07/23/2016) 2. aspirin 325 mg Oral tab 1 tab once daily (Last dose: 07/23/2016 21:00) 3. calcitriol 0.75 mcg oral cap three times a week at dialysis (Last dose: 07/24/2016 07:30) 4. Colace 100 mg oral cap 1 cap as needed (Last dose: 07/23/2016 21:00) 5. Crestor 20 mg Oral tab 1 tab nightly (Last dose: 07/23/2016 21:00) 6. cyclobenzaprine 5 mg Oral tab 1 tab 3 times per day as needed (Last dose: 07/23/2016 21:00) 7. diazepam 5 mg Oral tab 1 tab 2 times per day as needed (Last dose: 07/23/2016 21:00) 8. Epogen 3,000 unit/mL injection soln 3 times per wk at dialysis (Last dose: 07/24/2016 09:30) 9. hydrocodone-acetaminophen 5-325 mg Oral tab 1 tab every 12 hours as needed (Last dose: Unknown) 10. Lantus 100 unit/mL Sub-Q soln 46 unit nightly (Last dose: 07/23/2016 21:00) 11. levothyroxine 75 mcg Oral cap 1 cap once daily (Last dose: 07/23/2016 21:00) 12. Lovaza 1 gram oral cap 2 caps 2 times per day (Last dose: 07/23/2016 21:00) 13. magnesium oxide 400 mg Oral tab 400 mg daily (Last dose: 07/23/2016 21:00) 14. metoprolol tartrate 100 mg Oral tab 1 tab 2 times per day (Last dose: 07/23/2016 21:00) 15. Nephro-Mirella oral tab 1 tab daily (Last dose: 07/23/2016 21:00) 16. omeprazole 40 mg Oral cpDR 1 cap once daily (Last dose: 07/23/2016 21:00) 17. Renvela 800 mg oral tab 3 tabs 3 times per day (Last dose: 07/23/2016 21:00) 18. Spiriva with HandiHaler 18 mcg Inhl CpDv 1 cap once daily (Last dose: 07/22/2016) 19. SPS 15 gram/60 mL Oral susp 60 mL once daily if told to take by dialysis - has not taken in some time (Last dose: Unknown) 20. trazodone 100 mg Oral tab 1 tab nightly (Last dose: 07/23/2016 21:00) 21. Vitamin D Oral 74292 unit every 2 weeks (Last dose: 07/10/2016) 22. Zofran (as hydrochloride) 4 mg Oral tab 1 tabs every 8 hours as needed (Last dose: Unknown) - PMHx: Diabetes - IDDM: controlled; GERD; Hypercholesterolemia; Hypertension; Renal Failure with Dialysis; kidney failure; - PSHx: Hysterectomy; ; Craniotomy; Disc surgery; AV Fistula- Left arm; Nasal cauterization; cardiac catheterization; - Social history: Smoking status: Patient states former smoker of tobacco. No barriers to communication noted, The patient speaks fluent Slovenian. - Family history: Not pertinent. - : The pt / caregiver states he / she is not on anticoagulants. Home medication list is obtained from the patient. - Exposure Risk Screening:: None identified. Screenin:04 Screening information is obtained from the patient. Fall risk: No risks identified. dsf Assistance ADL's: requires no assistance with activities of daily living. Abuse/DV Screen: The patient / caregiver reports he/she is: not in a situation that causes fear, pain or injury. Nutritional screening: No deficits noted. Advance Directives: Currently, there is no health care proxy. home support is adequate. Assessment: 10:56 Adult Sepsis Screening: The patient does not have new or worsening altered mentation. dsf Patient has a respiratory rate of greater than or equal to 22 (1 point). Systolic blood pressure is greater than 100. Patient has a qSOFA score of 1- Negative Sepsis Screen. General: Appears in no apparent distress, Behavior is appropriate for age, cooperative. Neurological: Level of Consciousness is awake, alert, Oriented to person, place, time. Cardiovascular: Capillary refill < 3 seconds Heart tones S1 S2 present Rhythm is sinus rhythm No ectopy. Respiratory: Airway is patent Respiratory effort is even, unlabored, Respiratory pattern is regular, symmetrical, Breath sounds are diminished bilaterally. Reports shortness of breath at rest on exertion cough that is productive. GI: Abdomen is non- distended Bowel sounds present X 4 quads. Abd is soft and non tender X 4 quads. Derm: Skin is pink, warm & dry. 11:56 General: Appears in no apparent distress, Behavior is appropriate for age, cooperative. dsf Neurological: Level of Consciousness is awake, alert. Cardiovascular: Capillary refill < 3 seconds Rhythm is sinus rhythm No ectopy. Respiratory: Airway is patent Respiratory effort is even, unlabored, Respiratory pattern is regular, symmetrical. Derm: Skin is pink, warm & dry. 12:20 General: Appears in no apparent distress, Behavior is appropriate for age, cooperative. dsf Neurological: Level of Consciousness is awake, alert. Cardiovascular: Capillary refill < 3 seconds. Respiratory: Airway is patent Respiratory effort is even, unlabored, Respiratory pattern is regular, symmetrical. Derm: Skin is pink, warm & dry. 13:53 General: Appears in no apparent distress, comfortable, Behavior is appropriate for age, dsf cooperative. Pain:. Neurological: Level of Consciousness is awake, alert. Cardiovascular: Capillary refill < 3 seconds Rhythm is sinus rhythm No ectopy. Respiratory: Airway is patent Respiratory effort is even, unlabored, Respiratory pattern is regular, symmetrical. Derm: Skin is pink, warm & dry. 14:53 Adult Sepsis Screening: The patient does not have new or worsening altered mentation. dsf Patient has a respiratory rate of greater than or equal to 22 (1 point). Systolic blood pressure is greater than 100. Patient has a qSOFA score of 1- Negative Sepsis Screen. General: Appears in no apparent distress, Behavior is appropriate for age, cooperative. Pain:. Neurological: Level of Consciousness is awake, alert. Cardiovascular: Capillary refill < 3 seconds. Respiratory: Airway is patent Respiratory effort is even, unlabored, Respiratory pattern is regular, symmetrical. GI: Abdomen is non- distended. Derm: Skin is pink, warm & dry. 15:53 General: Appears in no apparent distress, Behavior is appropriate for age, cooperative. dsf Neurological: Level of Consciousness is awake, alert. Cardiovascular: No deficits noted. Respiratory: No deficits noted. Derm: Skin is pink, warm & dry. 16:53 Adult Sepsis Screening: The patient does not have new or worsening altered mentation. dsf Patient has a respiratory rate of greater than or equal to 22 (1 point). Systolic blood pressure is greater than 100. Patient has a qSOFA score of 1- Negative Sepsis Screen. General: Appears in no apparent distress, Behavior is appropriate for age, cooperative. Neurological: Level of Consciousness is awake, alert. Cardiovascular: Capillary refill < 3 seconds Rhythm is sinus rhythm No ectopy. Cardiovascular: Heart tones S1 S2 present. Respiratory: Airway is patent Respiratory effort is even, unlabored, Respiratory pattern is regular, symmetrical, Breath sounds are diminished bilaterally. GI: Abdomen is non- distended Bowel sounds present X 4 quads. Abd is soft and non tender X 4 quads. Derm: Skin is pink, warm & dry. 17:53 General: Appears in no apparent distress, Behavior is appropriate for age, cooperative. dsf Neurological: Level of Consciousness is awake, alert. Cardiovascular: Capillary refill < 3 seconds Rhythm is sinus rhythm No ectopy. Respiratory: Airway is patent Respiratory effort is even, unlabored, Respiratory pattern is regular, symmetrical. Derm: Skin is pink, warm & dry. 18:11 Adult Sepsis Screening: The patient does not have new or worsening altered mentation. dsf Patient has a respiratory rate of greater than or equal to 22 (1 point). Systolic blood pressure is greater than 100. Patient has a qSOFA score of 1- Negative Sepsis Screen. General: Appears in no apparent distress, Behavior is appropriate for age, cooperative. Neurological: Level of Consciousness is awake, alert. Cardiovascular: No deficits noted. Respiratory: Airway is patent Respiratory effort is even, unlabored, Respiratory pattern is regular, symmetrical, Breath sounds are diminished bilaterally. Derm: Skin is pink, warm & dry. 18:39 General: pt ate 100% of dinner tray . dsf 19:30 General: Appears uncomfortable, Behavior is appropriate for age, cooperative. Pain: js15 Location: head. Neurological: Level of Consciousness is awake, alert, obeys commands, Oriented to person, place, time. Respiratory: Airway is patent Respiratory effort is even, labored, Respiratory pattern is regular, symmetrical. Derm: Skin is pink, warm & dry. 21:53 Reassessment: Patient appears in no apparent distress at this time. Pt resting on js15 stretcher comfortably, respirations even and unlabored; skin pink, warm, dry. Vital Signs: 10:23 BP 134 / 57; Pulse 74; Resp 24; Temp 98.7; Pulse Ox 100% ; elp 10:45 BP 155 / 90 (auto/); dsf 10:49 Pulse 78 MON; Pulse Ox 94% ; dsf 10:55 Weight 88.45 kg (R); Height 5 ft. 1 in. (154.94 cm); dsf 11:00 Pulse 72 MON; Pulse Ox 100% ; dsf 11:00 BP 123 / 58 (auto/); dsf 11:15 BP 129 / 60 (auto/); dsf 11:15 Pulse 74 MON; Pulse Ox 100% ; dsf 11:30 BP 128 / 61 (auto/); dsf 11:30 Pulse 74 MON; Pulse Ox 100% ; dsf 11:45 BP 128 / 61 (auto/); dsf 11:45 Pulse 76 MON; Pulse Ox 100% ; dsf 12:00 BP 131 / 58 (auto/); dsf 12:00 Pulse 76 MON; Pulse Ox 100% ; dsf 12:15 BP 125 / 59 (auto/); dsf 12:15 Pulse 74 MON; Pulse Ox 100% ; dsf 12:30 BP 118 / 56 (auto/); dsf 12:30 Pulse 72 MON; Pulse Ox 100% ; dsf 12:45 BP 124 / 76 (auto/); dsf 12:45 Pulse 78 MON; Pulse Ox 91% ; dsf 13:59 BP 132 / 61 (auto/); dsf 13:59 Pulse 76 MON; Pulse Ox 88% ; dsf 14:03 Pulse 76 MON; Pulse Ox 91% ; dsf 17:04 Resp 21; Temp 97.4(TE); Pain 0/10; dsf 18:40 Pulse 76 MON; Pulse Ox 91% ; dsf 18:42 Resp 20; Temp 96.9; dsf 19:15 BP 122 / 59; Pulse 79; Resp 18; Temp 97.6(TE); Pulse Ox 92% on R/A; Pain 8/10; kb5 10:55 Body Mass Index 36.84 (88.45 kg, 154.94 cm) dsf Vitals: 10:23 Log In Time: July 24, 2016 at 10:20. RN notified that patient meets Red Flag elp criteria. ED Course: 10:21 Patient visited by Susan Dunn PCA. elp 10:21 Patient moved to Waiting elp 10:21 Patient moved to 15 jc4 10:22 Aiden Nieves MD is Private Physician. elp 10:22 Patient moved to Waiting elp 10:23 Patient moved to 15 jc4 10:25 Triage Initiated jc4 10:26 [facility] bs6 10:26 Sarah Beth Griffin MD is Attending Physician. bs6 10:27 Patient visited by Bethany Lopez DO. bs6 10:27 Patient visited by Bethany Lopez DO. bs6 10:35 EKG done. (by ED staff). Reviewed by Bethany Lopez DO. dem1 10:36 Patient visited by Shauna Israel. dem1 10:50 The patient / caregiver is instructed regarding the plan of care and ED course. Patient dsf has correct armband on for positive identification. Placed in gown. Bed in low position. Call light in reach. Side rails up X2. monitoring coordinator on. Pulse ox on. NIBP on. 10:50 Inserted saline lock: 20 gauge in right antecubital area The patient tolerated the dsf procedure well. 10:50 CBC with Diff Sent. dsf 10:50 Basic Metabolic Profile Sent. dsf 10:50 B-Type Natiuretic Peptide Sent. dsf 10:50 -Blood Culture Sent. dsf 10:50 O2 via nasal cannula \T\ 4L/min. dsf 10:57 Patient visited by Ladi Salazar,ROSEMARY. dsf 11:07 BLOOD CULTURES Sent. dsf 12:04 Patient visited by Ladi Salazar RN. dsf 13:25 Patient visited by Melina Meza,ROSEMARY. rs3 13:40 [facility] Payment Agreement was scanned into Virtual 3-D Display for Smartphones and attached to record. lg 13:54 Patient visited by Ladi Salazar RN. dsf 14:33 Chest, 2 View (pa\E\lat) Returned. EDMS 14:35 Mago Martinez workforce development specialist. ys2 14:36 Mago Martinez is Hospitalizing Provider. bs6 15:[address] dsf 15:39 Patient moved to 15 dsf 17:03 CT Chest Angio R/O PE Returned. EDMS 18:12 Patient visited by Ladi Salazar RN. dsf 19:09 Patient visited by Declan Reynolds PCA. kb5 19:15 Patient visited by Declan Reynolds PCA. kb5 19:40 EKG-ADULT Returned. EDMS 21:53 No procedures done that require assistance. js15 07/25 10:55 T-Sheet-- Draft Copy was scanned into Virtual 3-D Display for Smartphones and attached to record. gb 10:55 ECG/EKG was scanned into Virtual 3-D Display for Smartphones and attached to record. gb Administered Medications: 07/24 13:33 Drug: Acetaminophen 650 mg [acetaminophen 325 mg tablet (2 tabs)] Route: PO; rs3 13:33 Drug: Dextromethorphan-Guaifenesin 5 ml [dextromethorphan-guaifenesin 10 mg-100 mg/5 mL rs3 oral liquid (5 mL)] Route: PO; 14:39 Drug: cefTRIAXone 1 grams [ceftriaxone 1 gram solution for injection] Route: IVPB; dsf Infused Over: 30 mins; Site: right antecubital; 17:06 Follow up: IV Status: Completed infusion; IV Intake: 20ml dsf 19:35 Drug: HYDROcodone-acetaminophen 1 tabs [hydrocodone 5 mg-acetaminophen 325 mg tablet (1 js15 tabs)] Route: PO; Intake: 17:06 IV: 20.00ml; Total: 20.00ml. dsf 18:40 PO: 360.00ml; Total: 380.00ml. dsf Order Results: Lab Order: B-Type Natiuretic Peptide; SPEC'M 07/24/16 10:48 Test: BRAIN NATRIURETIC PEPTIDE; Value: 187; Range: <100; Abnormal: Above high normal; Units: PG/ML; Status: F Lab Order: Basic Metabolic Profile; SPEC' 07/24/16 10:48 Test: GLUCOSE, FASTING; Value: 76; Range: 80-110; Abnormal: Below low normal; Units: MG/DL; Status: F Test: BLOOD UREA NITROGEN; Value: 11; Range: 7-18; Units: MG/DL; Status: F Test: CREATININE FOR GFR; Value: 3.28; Range: 0.55-1.02; Abnormal: Above high normal; Units: MG/DL; Status: F Test: GLOMERULAR FILTRATION RATE; Value: 15.3; Range: >45; Abnormal: Below low normal; Status: F Test: SODIUM LEVEL; Value: 142; Range: 136-145; Units: MEQ/L; Status: F Test: POTASSIUM SERUM; Value: 3.7; Range: 3.5-5.1; Units: MEQ/L; Status: F Test: CHLORIDE LEVEL; Value: 101; Range: 98-107; Units: MEQ/L; Status: F Test: CARBON DIOXIDE LEVEL; Value: 32; Range: 21-32; Units: MEQ/L; Status: F Test: ANION GAP; Value: 9; Range: 8-16; Units: MEQ/L; Status: F Test: CALCIUM LEVEL; Value: 8.9; Range: 8.8-10.2; Units: MG/DL; Status: F Test Note: ; Units are mL/min/1.73 m2 Chronic Kidney Disease Staging per NKF: Stage I & II GFR >=60 Normal to Mildly Decreased Stage III GFR 30-59 Moderately Decreased Stage IV GFR 15-29 Severely Decreased Stage V GFR <15 Very Little GFR Left ESRD GFR <15 on BUSINESS BANKING RELATIONSHIP MANAGER Lab Order: CBC with Diff; FATOUMATA'Tory 07/24/16 10:48 Test: WHITE BLOOD COUNT; Value: 4.4; Range: 4.0-10.0; Units: K/mm3; Status: F Test: RED BLOOD COUNT; Value: 3.50; Range: 4.00-5.40; Abnormal: Below low normal; Units: M/mm3; Status: F Test: HEMOGLOBIN; Value: 10.9; Range: 12.0-16.0; Abnormal: Below low normal; Units: g/dl; Status: F Test: HEMATOCRIT; Value: 34.6; Range: 36.0-47.0; Abnormal: Below low normal; Units: %; Status: F Test: MEAN CORPUSCULAR VOLUME; Value: 98.8; Range: 80.0-96.0; Abnormal: Above high normal; Units: fl; Status: F Test: MEAN CORPUSCULAR HEMOGLOBIN; Value: 31.2; Range: 27.0-33.0; Units: pg; Status: F Test: MEAN CORPUSCULAR HGB CONC; Value: 31.6; Range: 32.0-36.5; Abnormal: Below low normal; Units: g/dl; Status: F Test: RED CELL DISTRIBUTION WIDTH; Value: 15.7; Range: 11.5-14.5; Abnormal: Above high normal; Units: %; Status: F Test: PLATELET COUNT, AUTOMATED; Value: 145; Range: 150-450; Abnormal: Below low normal; Units: k/mm3; Status: F Test: NEUTROPHILS %; Value: 72.0; Range: 36.0-66.0; Abnormal: Above high normal; Units: %; Status: F Test: LYMPH %; Value: 9.1; Range: 24.0-44.0; Abnormal: Below low normal; Units: %; Status: F Test: MONO %; Value: 9.0; Range: 0.0-5.0; Abnormal: Above high normal; Units: %; Status: F Test: EOS %; Value: 6.7; Range: 0.0-3.0; Abnormal: Above high normal; Units: %; Status: F Test: BASO %; Value: 1.2; Range: 0.0-1.0; Abnormal: Above high normal; Units: %; Status: F Test: LARGE UNSTAINED CELL %; Value: 2.0; Range: 0.0-4.0; Units: %; Status: F Test: NEUTROPHILS #; Value: 3.2; Range: 1.8-7.7; Units: K/mm3; Status: F Test: LYMPH #; Value: 0.5; Range: 1.5-4.5; Abnormal: Below low normal; Units: K/mm3; Status: F Test: MONO #; Value: 0.4; Range: 0.0-0.8; Units: K/mm3; Status: F Test: EOS #; Value: 0.3; Range: 0.0-0.50; Units: K/mm3; Status: F Test: BASO #; Value: 0.0; Range: 0.0-0.2; Units: K/mm3; Status: F Test: LARGE UNSTAINED CELL #; Value: 0.1; Range: 0.0-0.4; Units: K/mm3; Status: F Lab Order: CARDIAC MARKER PANEL; SPEC'M 07/24/16 10:48 Test: CPK CREATINE PHOSPHOKINASE; Value: 33; Range: 26-192; Units: U/L; Status: F Test: CK-MB VALUE MASS; Value: 1.0; Range: 0.0-3.6; Units: NG/ML; Status: F Test: MB/CK RELATIVE INDEX; Value: 3.03; Range: < OR =4; Status: F Test: TROPONIN I; Value: < 0.02; Range: < 0.10; Units: NG/ML; Status: F Test Note: ; DIAGNOSIS CRITERIA MMB ng/ml Relative Index (RI) NON-AMI < or = 5 N/A COATS ZONE > 5 < or = 4 AMI > 5 > 4 Lab Order: D-Dimer Quant; SPEC'M 07/24/16 10:48 Test: D-DIMER QUANT; Value: 944.6; Range: <500; Abnormal: Above high normal; Units: ng/ml; Status: F Lab Order: THYROID STIMULATING HORMONE; SPEC'M 07/24/16 10:48 Test: THYROID STIMULATING HORMONE; Value: 0.807; Range: 0.358-3.740; Units: uIU/ML; Status: F Radiology Order: EKG-ADULT Test: EKG-ADULT REASON FOR EXAMINATION: Chest Pain; Stationary ECG Study; [facility] - ED; ; Test Date: 2016-07-24; Pat Name: CARO CARNES Department:; Room: -; Gender: F [employer] 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: dm; : 1955 Requested By: Sarah Beth Griffin; Order Number: [id number] Reading MD: Sarah Beth Griffin; Measurements; Intervals [place]; Rate: 77 P: 66; TX: 230 QRS: 31; QRSD: 98 T: 49; QT: 399; QTc: 454; Interpretive Statements; SINUS RHYTHM WITH FIRST DEGREE AV BLOCK; POSSIBLE LEFT ATRIAL ENLARGEMENT; NONSPECIFIC ST T-WAVE ABNORMALITY; PROLONGED QTC; Electronically Signed On 07-24-2016 19:09:19 EST by Sarah Beth Griffin; Radiology Order: Chest, 2 View (pa\E\lat) Test: Chest, 2 View (pa\E\lat) REASON FOR EXAMINATION: Shortness of Breath; PA and lateral chest 07/24/2016; ; Indication: Shortness of breath; ; Comparison: PA and lateral chest 06/11, CTA chest 06/06/2016, portable chest; 06/09 16; ; The cardiac silhouette is borderline in size. Subtle patchy infiltrate is; identified in the left lower lobe and lingula. Small amount of right basilar; atelectatic changes are noted.; ; There are mild degenerative changes in thoracic spine.; ; Impression :; ; Stable cardiac silhouette, borderline in size.; ; Subtle patchy infiltrate is identified in the left lower lobe and lingula.; Follow-up to resolution recommended.; ; Mild right basilar atelectatic changes.; ; ; Signed by; Jennifer Loomis MD 07/24/2016 02:00 P; Radiology Order: CT Chest Angio R/O PE Test: CT Chest Angio R/O PE REASON FOR EXAMINATION: Shortness of Breath; Volleyball CTA chest 07/24/2016; ; Indication: Shortness of breath; ; Comparison: CTA chest 06/06/2016; ; The patient had dialysis earlier today and is cleared for subsequent CTA chest; today by Dr.. Guzman of Dept of Nephrology; ; Findings: The thoracic aorta is without aneurysm or dissection. There is; minimal pericardial effusion now noted of maximal depth 5 mm. The heart is of; normal size. There are no pathologically enlarged mediastinal or hilar lymph; nodes. There are no central pulmonary artery emboli through the proximal; segmental pulmonary artery levels bilaterally. Patchy areas of nodular; infiltrate are seen within the lingula with mild progression and in the left; lower lobe with progression. The right lung is clear.; ; Visualized portions of the liver are enlarged. Liver is 18.3 cm cranial caudal; dimension. The spleen is 11.6 cm craniocaudal dimension, upper normal size.; Visualized portions of pancreas within normal limits. The gallbladder is Jayesh; distended without stones wall thickening or biliary dilatation. There are a few; nodes within the para esophageal region in the upper abdomen, medial to the; stomach none of which are pathologically enlarged. There also a few romy; hepatis nodes, largest 1.4 cm diameter and unchanged. Nonobstructing 4 mm; calculus is seen within the upper pole left kidney.; ; Impression; 1. No central pulmonary artery emboli are seen through the proximal segmental; pulmonary artery levels bilaterally. The more peripheral pulmonary branches are; somewhat limited in visualization.; 2. Progression of patchy nodular infiltrative opacities within the left lower; lobe and lingula which represents interval change and followup to complete; resolution is recommended . Recommend follow-up CT chest within 3 months.; 3. 3.3 mm noncalcified pulmonary nodule within the superior segment left lower; lobe on image 49 series 402.; 4. Few para esophageal lymph nodes are seen within the epigastric region,; largest 13 mm short-axis diameter are considered enlarged yet unchanged.; ; ; Signed by; Jennifer Loomis MD 07/24/2016 04:05 P; Outcome: 14:37 Decision to Hospitalize by Provider. bs6 21:53 Discharge Assessment: Patient awake, alert and oriented x 3. No cognitive and/or js15 functional deficits noted. Patient verbalized understanding of disposition instructions. patient administered narcotics - yes. Patient was admitted to the hospital or transferred to another facility. The following High Risk Discharge criteria are identified: None. Admitted to Med/Surg accompanied by tech, via stretcher, with oxygen, with chart. Condition: stable. Property :Personal belongings accompany Pt. 21:55 No special radiology studies were completed. js15 21:55 Patient left the ED. js15 Signatures: Dispatcher [employer] EDMS Bargretat, Evelina, Reg Reg gb Ganter, YisseliLee, Reg Reg lg [place], Declan, YARDING AND FOLDING MACHINE OPERATOR YARDING AND FOLDING MACHINE OPERATOR kb5 Melina Meza,RN RN rs3 Maddi Mckeon, RN RN jc4 Ladi Salazar,RN RN dsf Shauna Israel dem1 Susan Dunn, YARDING AND FOLDING MACHINE OPERATOR YARDING AND FOLDING MACHINE OPERATOR elp Bethany Lopez, DO bs6 Shelly Meng,RN RN js15 Mago Martinez ys2 Corrections: (The following items were deleted from the chart) 10:26 10:23 BP 134 / 57; Pulse 74bpm; Resp 18bpm; Pulse Ox 100%; Temp 98.7F; elp elp 11:12 11:07 CARDIAC MARKER PANEL+LAB sent. dsf EDLA 17:04 11:56 Neurological: Level of Consciousness is awake, confused, dsf dsf Chart Complete MTDD
--- NOTE | 2016-07-26 22:56 | EDDOCDS ---
Physician Documentation [facility] Name: Caro Carnes Age: 60 yrs Sex: Female : 1955 Arrival Date: 07/24/2016 Time: 10:20 Bed 15 Private MD: Aiden Nieves Disposition: 07/24 15:12 I have independently interviewed and examined the patient, and I agree with the sd1 investigation, diagnosis and treatment plan as documented by the Resident. Disposition: 07/24/16 14:37 Hospitalization ordered by Mago Martinez for Inpatient Admission. Preliminary diagnosis is Pneumonia in diseases classified elsewhere. - Bed requested for 4 [place]. - Status is Inpatient Admission. js15 - Condition is Stable. - Problem is new. - Symptoms have improved. Historical: - Allergies: tequin (mouth swells); - Home Meds: 1. amiodarone 200 mg Oral tab 1 tab once daily (Last dose: 07/23/2016) 2. aspirin 325 mg Oral tab 1 tab once daily (Last dose: 07/23/2016 21:00) 3. calcitriol 0.75 mcg oral cap three times a week at dialysis (Last dose: 07/24/2016 07:30) 4. Colace 100 mg oral cap 1 cap as needed (Last dose: 07/23/2016 21:00) 5. Crestor 20 mg Oral tab 1 tab nightly (Last dose: 07/23/2016 21:00) 6. cyclobenzaprine 5 mg Oral tab 1 tab 3 times per day as needed (Last dose: 07/23/2016 21:00) 7. diazepam 5 mg Oral tab 1 tab 2 times per day as needed (Last dose: 07/23/2016 21:00) 8. Epogen 3,000 unit/mL injection soln 3 times per wk at dialysis (Last dose: 07/24/2016 09:30) 9. hydrocodone-acetaminophen 5-325 mg Oral tab 1 tab every 12 hours as needed (Last dose: Unknown) 10. Lantus 100 unit/mL Sub-Q soln 46 unit nightly (Last dose: 07/23/2016 21:00) 11. levothyroxine 75 mcg Oral cap 1 cap once daily (Last dose: 07/23/2016 21:00) 12. Lovaza 1 gram oral cap 2 caps 2 times per day (Last dose: 07/23/2016 21:00) 13. magnesium oxide 400 mg Oral tab 400 mg daily (Last dose: 07/23/2016 21:00) 14. metoprolol tartrate 100 mg Oral tab 1 tab 2 times per day (Last dose: 07/23/2016 21:00) 15. Nephro-Mirella oral tab 1 tab daily (Last dose: 07/23/2016 21:00) 16. omeprazole 40 mg Oral cpDR 1 cap once daily (Last dose: 07/23/2016 21:00) 17. Renvela 800 mg oral tab 3 tabs 3 times per day (Last dose: 07/23/2016 21:00) 18. Spiriva with HandiHaler 18 mcg Inhl CpDv 1 cap once daily (Last dose: 07/22/2016) 19. SPS 15 gram/60 mL Oral susp 60 mL once daily if told to take by dialysis - has not taken in some time (Last dose: Unknown) 20. trazodone 100 mg Oral tab 1 tab nightly (Last dose: 07/23/2016 21:00) 21. Vitamin D Oral 87767 unit every 2 weeks (Last dose: 07/10/2016) 22. Zofran (as hydrochloride) 4 mg Oral tab 1 tabs every 8 hours as needed (Last dose: Unknown) - PMHx: Diabetes - IDDM: controlled; GERD; Hypercholesterolemia; Hypertension; Renal Failure with Dialysis; kidney failure; - PSHx: Hysterectomy; ; Craniotomy; Disc surgery; AV Fistula- Left arm; Nasal cauterization; cardiac catheterization; - Social history: Smoking status: Patient states former smoker of tobacco. No barriers to communication noted, The patient speaks fluent [place]une[place]. - Family history: Not pertinent. - : The pt / caregiver states he / she is not on anticoagulants. Home medication list is obtained from the patient. - Exposure Risk Screening:: None identified. Vital Signs: 10:23 BP 134 / 57; Pulse 74; Resp 24; Temp 98.7; Pulse Ox 100% ; elp 10:45 BP 155 / 90 (auto/); dsf 10:49 Pulse 78 MON; Pulse Ox 94% ; dsf 10:55 Weight 88.45 kg / 195 lbs (R); Height 5 ft. 1 in. (154.94 cm); dsf 11:00 Pulse 72 MON; Pulse Ox 100% ; dsf 11:00 BP 123 / 58 (auto/); dsf 11:15 BP 129 / 60 (auto/); dsf 11:15 Pulse 74 MON; Pulse Ox 100% ; dsf 11:30 BP 128 / 61 (auto/); dsf 11:30 Pulse 74 MON; Pulse Ox 100% ; dsf 11:45 BP 128 / 61 (auto/); dsf 11:45 Pulse 76 MON; Pulse Ox 100% ; dsf 12:00 BP 131 / 58 (auto/); dsf 12:00 Pulse 76 MON; Pulse Ox 100% ; dsf 12:15 BP 125 / 59 (auto/); dsf 12:15 Pulse 74 MON; Pulse Ox 100% ; dsf 12:30 BP 118 / 56 (auto/); dsf 12:30 Pulse 72 MON; Pulse Ox 100% ; dsf 12:45 BP 124 / 76 (auto/); dsf 12:45 Pulse 78 MON; Pulse Ox 91% ; dsf 13:59 BP 132 / 61 (auto/); dsf 13:59 Pulse 76 MON; Pulse Ox 88% ; dsf 14:03 Pulse 76 MON; Pulse Ox 91% ; dsf 17:04 Resp 21; Temp 97.4(TE); Pain 0/10; dsf 18:40 Pulse 76 MON; Pulse Ox 91% ; dsf 18:42 Resp 20; Temp 96.9; dsf 19:15 BP 122 / 59; Pulse 79; Resp 18; Temp 97.6(TE); Pulse Ox 92% on R/A; Pain 8/10; kb5 10:55 Body Mass Index 36.84 (88.45 kg, 154.94 cm) dsf MDM: 10:22 ECG WITH READING ER PHYS+CARDIAG ordered. EDMS 10:48 -Blood Culture (Adults Only), peripheral from different site, or from device/port/PICC bs6 etc. if present ordered. 10:48 Sole Layer Hand/Pulse Ox/q 15 min VS ordered. bs6 10:48 IV Saline Lock ordered. bs6 10:48 Oxygen at 4L/Min NC or Home dosage ordered. bs6 10:48 Rhythm Strip to chart ordered. bs6 10:49 B-Type Natiuretic Peptide Ordered. EDMS 10:49 Basic Metabolic Profile Ordered. EDMS 10:49 CBC with Diff Ordered. EDMS 10:49 -Blood Culture Ordered. EDMS 10:49 Chest, 2 View (pa\E\lat) Ordered. EDMS 10:53 -Blood Culture (Adults Only), peripheral from different site, or from device/port/PICC deg etc. if present complete. 10:54 BLOOD CULTURES Ordered. EDMS 11:13 CARDIAC MARKER PANEL Ordered. EDMS 11:43 Financial registration complete. lg 12:54 B-Type Natiuretic Peptide Reviewed. sd1 12:54 Basic Metabolic Profile Reviewed. sd1 12:54 CBC with Diff Reviewed. sd1 12:54 CARDIAC MARKER PANEL Reviewed. sd1 13:11 Acetaminophen Tablet 650 mg PO once ordered. bs6 13:11 Dextromethorphan-Guaifenesin Liquid 10 mg-100 mg/5 mL 5 ml PO once ordered. bs6 13:12 D-Dimer Quant Ordered. EDMS 13:40 [facility] Payment Agreement was scanned into [employer] and attached to record. lg 13:51 CT Chest Angio R/O PE Ordered. EDMS 14:24 cefTRIAXone 1 grams IVPB once over 30 mins; dilute in 50mL of NS or D5W ordered. bs6 15:37 CONSISTENT CARBOHYDRATES ordered. EDMS 15:38 INFLUENZA A&B RAPID ANTIGEN Ordered. EDMS 15:38 SPUTUM CULTURE AND GRAM STAIN Ordered. EDMS 16:05 THYROID STIMULATING HORMONE Ordered. EDMS 16:10 Admission / Observation Status ordered. EDMS 19:30 HYDROcodone-acetaminophen 5 mg-325 mg 1 tabs PO once ordered. js15 19:32 CBC WITH DIFFERENTIAL Ordered. EDMS 19:32 COMPLETE COMPHRENSIVE METABOLI Ordered. EDMS 19:32 MAGNESIUM LEVEL Ordered. EDMS 07/25 10:55 T-Sheet-- Draft Copy was scanned into [employer] and attached to record. gb 10:55 ECG/EKG was scanned into [employer] and attached to record. gb Administered Medications: 07/24 13:33 Drug: Acetaminophen 650 mg [acetaminophen 325 mg tablet (2 tabs)] Route: PO; rs3 13:33 Drug: Dextromethorphan-Guaifenesin 5 ml [dextromethorphan-guaifenesin 10 mg-100 mg/5 mL rs3 oral liquid (5 mL)] Route: PO; 14:39 Drug: cefTRIAXone 1 grams [ceftriaxone 1 gram solution for injection] Route: IVPB; dsf Infused Over: 30 mins; Site: right antecubital; 17:06 Follow up: IV Status: Completed infusion; IV Intake: 20ml dsf 19:35 Drug: HYDROcodone-acetaminophen 1 tabs [hydrocodone 5 mg-acetaminophen 325 mg tablet (1 js15 tabs)] Route: PO; Signatures: Dispatcher [employer] EDMS Sarah Beth Griffin MD MD sd1 Abigail Victoria, Life Skills Educator Unit deg Barnhardt, Evelina, Reg Reg gb Blanca, Nathalie, Reg Reg lg Tr Gillespie, Life Skills Educator Unit ml3 Maddi Mckeon, RN RN jc4 Bethany Lopez DO DO bs6 Shelly MengRN RN js15 Melina Meza RN rs3 Ladi Salazar RN dsf The chart was reviewed and I authenticate all verbal orders and agree with the evaluation and treatment provided.Corrections: (The following items were deleted from the chart) 11:12 11:07 CARDIAC MARKER PANEL+LAB ordered. EDMS EDMS 16:06 15:54 THYROID STIMULATING HORMONE ordered. EDMS EDMS Attachments: 13:40 [facility] Payment Agreement lg 07/25 10:55 T-Sheet-- Draft Copy gb 10:55 ECG/EKG gb Chart Complete MTDD
[2016-07-26] MEDS: methylPREDNISolone INJ 125 MG/2 ML VIAL (J2930) IV SCH (23:21)
[2016-07-27] MEDS: IPRATROPIUM 0.5MG/ALBUTEROL 2.5MG INH SOL UD 3ML (DUONEB)(J7620) NEB SCH ×5 (02:00→22:24)
[2016-07-27 05:45] VITALS: BP 146/68
[2016-07-27] MEDS: LEVOTHYROXINE 0.075 MG TAB (75 MCG) PO SCH (05:55)
[2016-07-27 06:24] LABS: BASO % 0.1 % (0.0-1.0); EOS % 0.5 % (0.0-3.0); LARGE UNSTAINED CELL # 0.1 K/mm3 (0.0-0.4); LARGE UNSTAINED CELL % 0.9 % (0.0-4.0); LYMPH # 0.5 K/mm3 (1.5-4.5); MEAN CORPUSCULAR HEMOGLOBIN 31.2 pg (27.0-33.0); MEAN CORPUSCULAR HGB CONC 31.9 g/dl (32.0-36.5); MEAN CORPUSCULAR VOLUME 97.9 fl (80.0-96.0); MONO # 0.2 K/mm3 (0.0-0.8); MONO % 3.8 % (0.0-5.0); NEUTROPHILS # 5.4 K/mm3 (1.8-7.7); NEUTROPHILS % 86.8 % (36.0-66.0); PLATELET COUNT, AUTOMATED 156 k/mm3 (150-450); RED CELL DISTRIBUTION WIDTH 14.7 % (11.5-14.5); WHITE BLOOD COUNT 6.2 K/mm3 (4.0-10.0)
[2016-07-27 06:42] LABS: ALBUMIN/GLOBULIN RATIO 0.68 (1.00-1.93); BILIRUBIN,TOTAL 0.3 MG/DL (0.2-1.0); CALCIUM LEVEL 8.8 MG/DL (8.8-10.2); CREATININE FOR GFR 5.5 MG/DL (0.55-1.02); GLOMERULAR FILTRATION RATE 8.4 (>45); POTASSIUM SERUM 4.4 MEQ/L (3.5-5.1); TOTAL PROTEIN 7.4 GM/DL (6.4-8.2)
[2016-07-27] MEDS: TIOTROPIUM INHALER/CAPSULE (SPIRIVA) INH SCH (08:06)
[2016-07-27] MEDS: methylPREDNISolone INJ 125 MG/2 ML VIAL (J2930) IV SCH (08:06)
[2016-07-27] MEDS: HumaLOG INSULIN (NovoLOG) PER UNIT SC SCH ×4 (08:07→20:37)
[2016-07-27] MEDS: AMIODARONE 200 MG TAB (PACERONE) PO SCH (08:07)
[2016-07-27] MEDS: ASPIRIN 325 MG TAB PO SCH (08:07)
[2016-07-27] MEDS: MAGNESIUM OXIDE 400 MG TAB (MAG-OX) PO SCH (08:07)
[2016-07-27] MEDS: NEPHRO-VIT TAB (NEPHROCAPS) PO SCH (08:07)
[2016-07-27] MEDS: METOPROLOL TARTRATE 100 MG TAB PO SCH ×2 (08:07→20:04)
[2016-07-27] MEDS: OMEGA-3 1050MG CAPSULE PO SCH ×2 (08:07→20:03)
[2016-07-27] MEDS: (RENVELA) SEVELAMER **CARBONate** 800 MG TAB PO SCH ×3 (08:08→18:21)
[2016-07-27] MEDS: OMEPRAZOLE 20 MG CAP PO SCH (08:08)
--- NOTE | 2016-07-27 08:53 | IPNPDOC ---
Assessment/Plan Date Seen The patient was seen on 07/27/16. Problems Problems: (1) Left lower lobe pneumonia Status: Acute Problem Text: 07/25 - Patient states she is feeling improved today with respect to her breathing. She does have diffuse ronchi with rales in the LLL. She will be started on a low dose prednisone for 5-7 days for suspect of COPD involvement as well. This was suggested by and discussed with Dr. Guzman, who is seeing her for ESRD. Continue current antibiotic regimen with ceftriaxone and azithromycin. Incentive spirometry added and encouraged. 07/26 - Patient had some difficulty with dyspnea overnight, but it seems to have been more fluid volume related as it only bothered her when lying flat, not when sitting upright. Her lung sounds do not sound much improved today with crackles in the LLL. She was being taken to dialysis at the end of our conversation today, so hopefully they will be able to draw off some fluid and help her with the nocturnal dyspnea. Will continue antibiotics at this time with ceftriaxone and azithromycin (Day 3). Encouraged continued use of incentive spirometry. - IV Ceftriaxone and Zithro Day 4. IV Solumedrol. Nebs. (2) ESRD (end stage renal disease) on dialysis Onset Date: 07/14/2014 Status: Acute Problem Text: Patient went to dialysis this morning (07/26). Will defer management to nephrology. 07/27/16 - Pt had dialysis yesterday. Creat 5.50. (3) IDDM (insulin dependent diabetes mellitus) Status: Acute Problem Text: Patient is on SSI with levemir - Reduced dosage compared to home due to reduced PO intake while in the hospital. Hypoglycemic protocol in place. (4) Chronic pain Status: Acute Problem Text: Continue home medications. No complaints today. (5) Anxiety Status: Acute Problem Text: Continue home valium as needed, no acute complaints today. (6) HLD (hyperlipidemia) Status: Acute Problem Text: Continue crestor and lovaza (7) HTN (hypertension) Status: Acute Problem Text: BP mostly controlled. Will leave management of htn to the nephrology team. (8) GERD (gastroesophageal reflux disease) Status: Acute Problem Text: Continue prilosec. No acute complaints today. (9) COPD (chronic obstructive pulmonary disease) Status: Acute Problem Text: Started on low dose prednisone for 5-7 days. (10) Insomnia Status: Acute Problem Text: Continue home medication of trazodone. (11) Hyperkalemia Status: Acute Problem Text: Potassium increased today, but still WNL. Will defer management to nephrology. (12) Hypomagnesemia Status: Acute Plan / VTE VTE Prophylaxis Ordered?: Yes Subjective Review of Systems CC/HPI The patient is a 60-year-old female admitted with a reason for visit of Esrd On Dialysis; Pna. Events since last encounter Pt states she is still SOB. Denies CP. Constitutional: Denies: Chills, Fever Pulmonary: Reports: Dyspnea Cardiovascular: Denies: Chest Pain Gastrointestinal: Denies: Abdominal Pain, Nausea, Vomiting Objective Physical Examination General Exam: Positive: Alert, Cooperative, No Acute Distress Eye Exam: Positive: Conjunctiva & lids normal, Negative: Sclera icteric ENT Exam: Positive: Atraumatic, Mucous membr. moist/pink Neck Exam: Positive: Supple Chest Exam: Positive: Rales (LLL), Negative: Clear to auscultation Heart Exam: Positive: Normal S1, Normal S2, Rate Normal, Regular Rhythm Abdomen Exam: Positive: Normal bowel sounds, Soft, Negative: Tenderness Extremity Exam: Negative: Edema Neuro Exam: Positive: Cranial Nerves 3-12 NL, Normal Speech Psych Exam: Positive: Oriented x 3 Vital Signs/I&O Vital Signs Date Time Temp Pulse Resp B/P Pulse Ox O2 Delivery O2 Flow Rate FiO2 07/27/16 08:07 84 146/68 07/27/16 05:45 97.6 16 91 Room Air 07/26/16 14:00 2.0 I&O- Last 24 Hours up to 6 AM 07/27/16 05:59 Intake Total 1705 ml Output Total 2280 ml Balance -575 ml Laboratory Data Labs 24H Laboratory Tests 2 07/27/16 05:19: Blood Urea Nitrogen 33H, Creatinine 5.50H, Sodium Level 137, Potassium Level 4.4 , Chloride Level 96L, Carbon Dioxide Level 28, Calcium Level 8.8, Aspartate Amino Transf (AST/SGOT) 14L, Alanine Aminotransferase (ALT/SGPT) 21, Alkaline Phosphatase 143H, Total Bilirubin 0.3, Total Protein 7.4, Albumin 3.0L, Albumin/ Globulin Ratio 0.68L, Anion Gap 13, White Blood Count 6.2, Red Blood Count 3.48L , Hemoglobin 10.9L, Hematocrit 34.1L, Mean Corpuscular Volume 97.9H, Mean Corpuscular Hemoglobin 31.2, Mean Corpuscular Hemoglobin Concent 31.9L, Red Cell Distribution Width 14.7H, Platelet Count 156, Neutrophils (%) (Auto) 86.8H , Lymphocytes (%) (Auto) 8.0L, Monocytes (%) (Auto) 3.8, Eosinophils (%) (Auto) 0.5, Basophils (%) (Auto) 0.1, Neutrophils # (Auto) 5.4, Lymphocytes # (Auto) 0.5L, Monocytes # (Auto) 0.2, Eosinophils # (Auto) 0.0, Basophils # (Auto) 0.0, Glomerular Filtration Rate 8.4L, Large Unclassified Cells # 0.1, Large Unclassified Cells % 0.9 CBC/BMP Laboratory Tests 07/27/16 05:19 Calcium Level 8.8, Aspartate Amino Transf (AST/SGOT) 14 L, Alanine Aminotransferase (ALT/SGPT) 21, Alkaline Phosphatase 143 H, Total Bilirubin 0.3 , Total Protein 7.4, Albumin 3.0 L, Red Blood Count 3.48 L, Mean Corpuscular Volume 97.9 H, Mean Corpuscular Hemoglobin 31.2, Mean Corpuscular Hemoglobin Concent 31.9 L, Red Cell Distribution Width 14.7 H, Neutrophils (%) (Auto) 86.8 H, Lymphocytes (%) (Auto) 8.0 L, Monocytes (%) (Auto) 3.8, Eosinophils (%) (Auto ) 0.5, Basophils (%) (Auto) 0.1, Neutrophils # (Auto) 5.4, Lymphocytes # (Auto) 0.5 L, Monocytes # (Auto) 0.2, Eosinophils # (Auto) 0.0, Basophils # (Auto) 0.0 Microbiology Microbiology 07/24/16 Blood Culture - Preliminary, Resulted No Growth after 48 hours. All Specime... 07/24/16 Blood Culture - Preliminary, Resulted No Growth after 48 hours. All Specime... Rob Connor Jul 27, 2016 08:52
[2016-07-27 14:00] VITALS: BP 130/70
[2016-07-27] MEDS: cefTRIAXone SOD 2 GM in D5W MINI-BAG PLUS 50 ML IV SCH (15:22)
[2016-07-27] MEDS: ROSUVASTATIN 10 MG TAB (CRESTOR) PO SCH (20:04)
[2016-07-27] MEDS: guaiFENesin DM LIQ 10ML UD PO PRN (20:37)
[2016-07-27] MEDS: traZODone 100 MG TAB PO SCH (21:01)
[2016-07-27] MEDS: AZITHROMYCIN 500 MG, VIAL MATE ADAPTER 1 EACH in D5W 250 ML IV SCH (21:01)
[2016-07-27] MEDS: LEVEMIR (INSULIN DETEMIR) 1 UNITS/0.01ML SC SCH (21:01)
[2016-07-27] MEDS: NORCO, ANEXSIA 5/325MG TABLET (HYDROcodone/ACETAMINOPHEN) PO PRN (21:59)
[2016-07-27 22:00] VITALS: BP 152/60
[2016-07-27] MEDS: IPRATROPIUM 0.5MG/ALBUTEROL 2.5MG INH SOL UD 3ML (DUONEB)(J7620) NEB PRN (23:27)
[2016-07-28] MEDS: LEVOTHYROXINE 0.075 MG TAB (75 MCG) PO SCH (05:53)
[2016-07-28 05:59] LABS: BASO % 0.6 % (0.0-1.0); EOS # 0.1 K/mm3 (0.0-0.50); EOS % 0.9 % (0.0-3.0); LARGE UNSTAINED CELL # 0.2 K/mm3 (0.0-0.4); LARGE UNSTAINED CELL % 2.3 % (0.0-4.0); LYMPH # 1.2 K/mm3 (1.5-4.5); LYMPH % 16.1 % (24.0-44.0); MEAN CORPUSCULAR HEMOGLOBIN 30.7 pg (27.0-33.0); MEAN CORPUSCULAR HGB CONC 31.2 g/dl (32.0-36.5); MEAN CORPUSCULAR VOLUME 98.5 fl (80.0-96.0); MONO # 0.6 K/mm3 (0.0-0.8); MONO % 7.4 % (0.0-5.0); NEUTROPHILS # 5.6 K/mm3 (1.8-7.7); NEUTROPHILS % 72.9 % (36.0-66.0); PLATELET COUNT, AUTOMATED 157 k/mm3 (150-450); RED CELL DISTRIBUTION WIDTH 14.8 % (11.5-14.5); WHITE BLOOD COUNT 7.7 K/mm3 (4.0-10.0)
[2016-07-28 06:00] VITALS: BP 116/70
[2016-07-28 06:29] LABS: ALBUMIN 2.9 GM/DL (3.2-5.2); ALBUMIN/GLOBULIN RATIO 0.64 (1.00-1.93); BILIRUBIN,TOTAL 0.2 MG/DL (0.2-1.0); CALCIUM LEVEL 8.8 MG/DL (8.8-10.2); CREATININE FOR GFR 7.13 MG/DL (0.55-1.02); GLOMERULAR FILTRATION RATE 6.2 (>45); POTASSIUM SERUM 4.3 MEQ/L (3.5-5.1); TOTAL PROTEIN 7.4 GM/DL (6.4-8.2)
[2016-07-28] MEDS: IPRATROPIUM 0.5MG/ALBUTEROL 2.5MG INH SOL UD 3ML (DUONEB)(J7620) NEB SCH ×4 (07:36→22:58)
[2016-07-28] MEDS: TIOTROPIUM INHALER/CAPSULE (SPIRIVA) INH SCH (07:36)
[2016-07-28] MEDS ORDERED: predniSONE 20 MG TAB PO SCH (09:00)
[2016-07-28] MEDS: MAGNESIUM OXIDE 400 MG TAB (MAG-OX) PO SCH (09:16)
[2016-07-28] MEDS: OMEGA-3 1050MG CAPSULE PO SCH ×2 (09:16→21:25)
[2016-07-28] MEDS: guaiFENesin DM LIQ 10ML UD PO PRN ×2 (09:16→17:47)
[2016-07-28] MEDS: NEPHRO-VIT TAB (NEPHROCAPS) PO SCH (09:16)
[2016-07-28] MEDS: HumaLOG INSULIN (NovoLOG) PER UNIT SC SCH ×4 (09:16→21:18)
[2016-07-28] MEDS: (RENVELA) SEVELAMER **CARBONate** 800 MG TAB PO SCH ×3 (09:17→17:47)
[2016-07-28] MEDS: METOPROLOL TARTRATE 100 MG TAB PO SCH ×2 (09:17→21:26)
[2016-07-28] MEDS: AMIODARONE 200 MG TAB (PACERONE) PO SCH (09:17)
[2016-07-28] MEDS: OMEPRAZOLE 20 MG CAP PO SCH (09:17)
[2016-07-28] MEDS: ASPIRIN 325 MG TAB PO SCH (09:17)
--- NOTE | 2016-07-28 09:30 | IPNPDOC ---
Assessment/Plan Date Seen The patient was seen on 07/28/16. Problems Problems: (1) Left lower lobe pneumonia Status: Acute Problem Text: 07/25 - Patient states she is feeling improved today with respect to her breathing. She does have diffuse ronchi with rales in the LLL. She will be started on a low dose prednisone for 5-7 days for suspect of COPD involvement as well. This was suggested by and discussed with Dr. Guzman, who is seeing her for ESRD. Continue current antibiotic regimen with ceftriaxone and azithromycin. Incentive spirometry added and encouraged. 07/26 - Patient had some difficulty with dyspnea overnight, but it seems to have been more fluid volume related as it only bothered her when lying flat, not when sitting upright. Her lung sounds do not sound much improved today with crackles in the LLL. She was being taken to dialysis at the end of our conversation today, so hopefully they will be able to draw off some fluid and help her with the nocturnal dyspnea. Will continue antibiotics at this time with ceftriaxone and azithromycin (Day 3). Encouraged continued use of incentive spirometry. - IV Ceftriaxone and Zithro Day 4. IV Solumedrol. Nebs. 07/28 - Rocephin and azithromycin (Day 5, each). Changed to by mouth Cefdinir and azithromycin. Will likely dc azithromycin tomorrow as she will have gotten a full 5 day course. Continue IV solumedrol and nebulizers. Patient states she is feeling a little better today, but her lungs are sounding more wheezy compared to a couple days ago. Will order repeat chest xray given that the lung sounds are worse than previously heard. Encouraged continued use of IS, which patient states she has been using. (2) ESRD (end stage renal disease) on dialysis Onset Date: 07/14/2014 Status: Acute Problem Text: Patient went to dialysis this morning (07/26). Will defer management to nephrology. 07/27/16 - Pt had dialysis yesterday. Creat 5.50. 07/28 - Patient scheduled for dialysis tomorrow. Will defer management to nephro. (3) IDDM (insulin dependent diabetes mellitus) Status: Acute Problem Text: Patient is on SSI with levemir - Reduced dosage compared to home due to reduced PO intake while in the hospital. Hypoglycemic protocol in place. (4) Chronic pain Status: Acute Problem Text: Continue home medications. No complaints today. (5) Anxiety Status: Acute Problem Text: Continue home valium as needed, no acute complaints today. (6) HLD (hyperlipidemia) Status: Acute Problem Text: Continue crestor and lovaza (7) HTN (hypertension) Status: Acute Problem Text: BP mostly controlled. Will leave management of htn to the nephrology team. (8) GERD (gastroesophageal reflux disease) Status: Acute Problem Text: Continue prilosec. No acute complaints today. (9) COPD (chronic obstructive pulmonary disease) Status: Acute Problem Text: Started on low dose prednisone for 5-7 days. 1/2 - Over the weekend she was switched to solumedrol 60mg IV BID. Will continue current dose of steroids as she has increased wheezing diffusely. CXR ordered for today as well. (10) Insomnia Status: Acute Problem Text: Continue home medication of trazodone. (11) Hyperkalemia Status: Acute Problem Text: Potassium increased today, but still WNL. Will defer management to nephrology. (12) Hypomagnesemia Status: Acute Plan / VTE VTE Prophylaxis Ordered?: Yes Subjective Review of Systems CC/HPI The patient is a 60-year-old female admitted with a reason for visit of Esrd On Dialysis; Pna. Events since last encounter Patient states that she continues to have difficulty breathing when lying flat. She has not told the nephro/dialysis team this yet, but I instructed her to do so. Aside from continued cough, she states she is feeling a little bit better, but still far from well. No other acute complaints today. Constitutional: Denies: Chills, Fever Pulmonary: Reports: Cough, Dyspnea Cardiovascular: Denies: Chest Pain, Palpitations Gastrointestinal: Denies: Abdominal Pain, Constipation, Diarrhea, Hematochezia , Melena, Nausea, Vomiting Objective Physical Examination General Exam: Positive: Alert, Cooperative, No Acute Distress Eye Exam: Positive: Conjunctiva & lids normal, Negative: Sclera icteric ENT Exam: Positive: Atraumatic, Mucous membr. moist/pink Neck Exam: Positive: Supple Chest Exam: Positive: Rales (LLL), Wheezing (Diffuse), Negative: Clear to auscultation Heart Exam: Positive: Normal S1, Normal S2, Rate Normal, Regular Rhythm Abdomen Exam: Positive: Normal bowel sounds, Soft, Negative: Tenderness Extremity Exam: Negative: Edema Neuro Exam: Positive: Cranial Nerves 3-12 NL, Normal Speech Psych Exam: Positive: Oriented x 3 Vital Signs/I&O Vital Signs Date Time Temp Pulse Resp B/P Pulse Ox O2 Delivery O2 Flow Rate FiO2 07/28/16 09:17 79 116/70 07/28/16 06:00 97.2 20 97 Nasal Cannula 2.0 I&O- Last 24 Hours up to 6 AM 07/28/16 06:00 Intake Total 1590 ml Balance 1590 ml Laboratory Data Labs 24H Laboratory Tests 2 07/27/16 11:50: Bedside Glucose (Misc Panel) 222H 07/27/16 20:35: Bedside Glucose (Misc Panel) 180H 07/28/16 05:49: Blood Urea Nitrogen 57#H, Creatinine 7.13H, Sodium Level 139, Potassium Level 4.3, Chloride Level 99, Carbon Dioxide Level 29, Calcium Level 8.8, Aspartate Amino Transf (AST/SGOT) 11L, Alanine Aminotransferase (ALT/SGPT) 19, Alkaline Phosphatase 125H, Total Bilirubin 0.2, Total Protein 7.4, Albumin 2.9L, Albumin/ Globulin Ratio 0.64L, Anion Gap 11, White Blood Count 7.7, Red Blood Count 3.69L , Hemoglobin 11.3L, Hematocrit 36.3, Mean Corpuscular Volume 98.5H, Mean Corpuscular Hemoglobin 30.7, Mean Corpuscular Hemoglobin Concent 31.2L, Red Cell Distribution Width 14.8H, Platelet Count 157, Neutrophils (%) (Auto) 72.9H , Lymphocytes (%) (Auto) 16.1L, Monocytes (%) (Auto) 7.4H, Eosinophils (%) (Auto ) 0.9, Basophils (%) (Auto) 0.6, Neutrophils # (Auto) 5.6, Lymphocytes # (Auto) 1.2L, Monocytes # (Auto) 0.6, Eosinophils # (Auto) 0.1, Basophils # (Auto) 0.0, Glomerular Filtration Rate 6.2L, Large Unclassified Cells # 0.2, Large Unclassified Cells % 2.3 CBC/BMP Laboratory Tests 07/28/16 05:49 Calcium Level 8.8, Aspartate Amino Transf (AST/SGOT) 11 L, Alanine Aminotransferase (ALT/SGPT) 19, Alkaline Phosphatase 125 H, Total Bilirubin 0.2 , Total Protein 7.4, Albumin 2.9 L, Red Blood Count 3.69 L, Mean Corpuscular Volume 98.5 H, Mean Corpuscular Hemoglobin 30.7, Mean Corpuscular Hemoglobin Concent 31.2 L, Red Cell Distribution Width 14.8 H, Neutrophils (%) (Auto) 72.9 H, Lymphocytes (%) (Auto) 16.1 L, Monocytes (%) (Auto) 7.4 H, Eosinophils (%) ( Auto) 0.9, Basophils (%) (Auto) 0.6, Neutrophils # (Auto) 5.6, Lymphocytes # ( Auto) 1.2 L, Monocytes # (Auto) 0.6, Eosinophils # (Auto) 0.1, Basophils # (Auto ) 0.0 FSBS Laboratory Tests Test 07/27/16 11:50 07/27/16 20:35 Range/Units Bedside Glucose (Misc Panel) 222 180 80-115 MG/DL Microbiology Microbiology 07/24/16 Blood Culture - Preliminary, Resulted No Growth after 72 hours. All specime... 07/24/16 Blood Culture - Preliminary, Resulted No Growth after 72 hours. All specime... GME ATTESTATION GME ATTESTATION My preceptor for this patient encounter was physically present in the building during the encounter and was fully available. As needed, all aspects of the patient interview, examination, medical decision making process, and medical care plan development were reviewed and approved by the preceptor. Preceptor is aware and concurs with the plan as stated in the body of this note and will attest to such by his/her cosignature. ATTENDING NOTE Attending Note Attending attestation: I saw and evaluated the patient, and agree with plan of care as discussed and documented above by the resident. MD AJITH Kahn,YANCY Galvan DO Jul 28, 2016 09:30 LOULOU AIKEN MD Jul 28, 2016 12:07
--- NOTE | 2016-07-28 11:56 | IPN ---
DATE: 07/28/2016 SUBJECTIVE: Patient was seen and examined at the bedside today in the morning. She reports that she is still having shortness of breath wheezing all over. She is having cough. REVIEW OF SYSTEMS: Patient denies any fevers, chills, rigors, headache, nausea and vomiting. She denies any chest pain. She reports cough, wheezing, congestion, and shortness of breath, especially when she lies down flat. She denies any pain in abdomen, constipation, or diarrhea. Rest of review of systems is negative. OBJECTIVE: Vital signs: Temperature is 97.2 degrees Fahrenheit, blood pressure is 116/70, pulse is 79, respiratory rate of 18, saturating 97% on nasal cannula. Intake and output: There is no urine output recorded. Last hemodialysis was on July 26. PHYSICAL EXAMINATION: GENERAL: Patient is awake, alert, oriented times three, lying in the bed in mild respiratory distress. HEAD AND NECK: Extraocular muscles intact. Pupils equally round and reactive to light. Neck is supple. There is no jugular venous distention (JVD). CARDIOVASCULAR: S1, S2, regular rate. No murmur, rub, or gallop. RESPIRATORY: Patient has diffuse bilateral expiratory rhonchi all over the chest. ABDOMEN: Abdomen is soft. Positive bowel sounds. Nontender. No ascites. No organomegaly. EXTREMITIES: No clubbing or cyanosis. Pulses are 2+. CENTRAL NERVOUS SYSTEM: No focal neurological deficit. Power is 5/5 in all extremities. SKIN: No rashes or ulcers. DIALYSIS ACCESS: Patient has a left forearm arteriovenous (AV) fistula, which is used for dialysis. No problem with the fistula at this time. LABORATORY REVIEW: CBC showed a WBC 7.7, hemoglobin 11.3, platelets are 157. BMP showed sodium 139, potassium 4.3, chloride 99, bicarbonate 29, BUN 57, creatinine is 7, calcium 8.8. IMAGING: A chest x-ray was ordered today morning, which is still pending. CURRENT MEDICATIONS: Patient's intravenous (IV) antibiotics have been stopped. She has been switched to oral azithromycin and cefdinir. I stopped patient's prednisone and switched her back to Solu-Medrol 60 mg IV every 12 hours, and I stopped patient's Spiriva as well. ASSESSMENT: A 60-year-old female with past medical history of end-stage renal disease, on hemodialysis every Thursday, , Thursday, history of chronic obstructive pulmonary disease (COPD), insulin-dependent diabetes mellitus, admitted at this time with left lower lobe pneumonia. Nephrology service following the patient for management of end-stage renal disease. PLAN: 1. Left lower lobe pneumonia. Patient was on IV Rocephin and azithromycin. The antibiotics have been switched to oral Omnicef and azithromycin. 2. COPD exacerbation. Patient was switched to oral prednisone, but she is still having a lot of wheezing and rhonchi. I am restarting the patient on IV Solu-Medrol. I am stopping the Spiriva, because it has a long half-life and is long-acting, and oral nebulizations will be less effective if patient continues to take Spiriva. Continue the nebulizations at this time. Continue the oral antibiotics. 3. End-stage renal disease, on hemodialysis. Patient was dialyzed on Thursday. No signs of fluid overload. Next hemodialysis will be tomorrow.
[2016-07-28] MEDS: CEFDINIR 300 MG CAP (OMNICEF) PO SCH ×2 (12:13→21:25)
[2016-07-28 14:00] VITALS: BP 142/76
--- NOTE | 2016-07-28 15:06 | REP ---
Clinical: Wheezing . Comparison: 07/24/2016 . Technique: PA and lateral. Findings: The mediastinum and cardiac silhouette are normal. The lung spencer are clear and without acute consolidation, effusion, or pneumothorax. Subtle infiltrate to the left lower lobe and lingula appears improved. The skeletal structures are intact and normal. Impression: 1. No acute cardiopulmonary process. 2. Previously identified subtle left lower lobe infiltrate appears to have resolved/improved. Signed by Geovanni Scanlon MD 07/28/2016 02:58 P
--- NOTE | 2016-07-28 19:45 | IPN ---
DATE: 07/27/2016 SUBJECTIVE: The patient was seen and examined at the bedside today. She reports much improvement in her shortness of breath after starting intravenous (IV) steroids yesterday. She tolerated the hemodialysis procedure well yesterday as well. REVIEW OF SYSTEMS: The patient denies any fevers, chills, rigors, headaches, nausea, vomiting or chest pain. She reports her shortness of breath is much better. She was able to sleep last night, and her cough and wheezing are also significantly better. She denies any pain abdomen, constipation, or diarrhea. Rest of review of systems is negative. OBJECTIVE: VITAL SIGNS: Temperature is 97.6 degrees Fahrenheit, blood pressure is 146/68, pulse is 84, respiratory rate of 16, saturating 91% on room air. INTAKE AND OUTPUT: Urine output recorded is only 100 mL yesterday. She got hemodialysis done, and ultrafiltration on hemodialysis was 2280 mL. Weight in the bed scale is 88.2 kg. PHYSICAL EXAMINATION: GENERAL: The patient is awake, alert, and oriented times three, sitting in the bed in no apparent distress. HEAD/NECK: Extraocular muscles intact. Pupils equal, round, and reactive to light. Neck is supple. There is no jugular venous distention (JVD). CARDIOVASCULAR: S1, S2, regular rate. No murmur, rub, or gallop. RESPIRATORY: Chest is clear to auscultation bilaterally. Bilateral equal air entry. No rales or rhonchi today. ABDOMEN: Soft. Positive bowel sounds. Nontender. No ascites. No organomegaly. EXTREMITIES: No clubbing or cyanosis. Pulses are 2+. 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 Power is 5/5 in all extremities. DIALYSIS ACCESS: The patient has a left forearm arteriovenous (AV) fistula with positive thrill and bruit. LABORATORY DATA: CBC showed WBC 6.2, hemoglobin 10.9, platelets 156. CMP showed sodium 137, potassium 4.4, chloride 96, bicarbonate 28, BUN 33, creatinine 5.5, albumin is 3. MICROBIOLOGY: Blood cultures are negative so far. CURRENT MEDICATIONS: The patient's current medications were all reviewed by me, and pertinent change in the medications include Solu-Medrol 0 mg IV every 12 hours. ASSESSMENT: A 60-year-old female with past medical history of end-stage renal disease on hemodialysis every Thursday, , Thursday, history of chronic obstructive pulmonary disease (COPD), insulin-dependent diabetes, admitted this time with left lower lobe pneumonia and COPD exacerbation. Nephrology service following the patient for management of end-stage renal disease. PLAN: 1. Left lower lobe pneumonia. She continues to be on IV Rocephin and azithromycin, and pneumonia is improving. 2. Acute COPD exacerbation. The patient's COPD got exacerbated because of pneumonia. She was already on antibiotics and getting nebulizations, but her symptoms were not improving, so she was started on Solu-Medrol 60 mg IV twice a day, and she reports much improvement in her symptoms as compared to yesterday. Solu-Medrol can be switched to oral prednisone by tomorrow. 3. End-stage renal disease on hemodialysis. The patient was dialyzed according to her schedule yesterday. Next hemodialysis will be done on Thursday. 4. Anemia in end-stage renal disease. The patient was given a dose of Aranesp. Her hemoglobin is 10.9 today, which is within acceptable range for end-stage renal disease.
[2016-07-28] MEDS ORDERED: AZITHROMYCIN 250 MG TAB PO SCH (21:00)
[2016-07-28] MEDS: methylPREDNISolone INJ 125 MG/2 ML VIAL (J2930) IV SCH (21:25)
[2016-07-28] MEDS: ROSUVASTATIN 10 MG TAB (CRESTOR) PO SCH (21:25)
[2016-07-28] MEDS: traZODone 100 MG TAB PO SCH (21:26)
[2016-07-28] MEDS: LEVEMIR (INSULIN DETEMIR) 1 UNITS/0.01ML SC SCH (21:27)
[2016-07-28] MEDS: NORCO, ANEXSIA 5/325MG TABLET (HYDROcodone/ACETAMINOPHEN) PO PRN (21:27)
[2016-07-28 22:00] VITALS: BP 136/77
[2016-07-29] MEDS: LEVOTHYROXINE 0.075 MG TAB (75 MCG) PO SCH (05:59)
[2016-07-29 06:00] VITALS: BP 138/62
[2016-07-29 06:18] LABS: BASO % 0.3 % (0.0-1.0); EOS % 0.2 % (0.0-3.0); LARGE UNSTAINED CELL # 0.1 K/mm3 (0.0-0.4); LARGE UNSTAINED CELL % 0.7 % (0.0-4.0); LYMPH # 0.4 K/mm3 (1.5-4.5); LYMPH % 6.7 % (24.0-44.0); MEAN CORPUSCULAR HEMOGLOBIN 31.1 pg (27.0-33.0); MEAN CORPUSCULAR HGB CONC 30.9 g/dl (32.0-36.5); MEAN CORPUSCULAR VOLUME 100.4 fl (80.0-96.0); MONO # 0.2 K/mm3 (0.0-0.8); MONO % 3.1 % (0.0-5.0); NEUTROPHILS # 5.6 K/mm3 (1.8-7.7); NEUTROPHILS % 88.9 % (36.0-66.0); PLATELET COUNT, AUTOMATED 162 k/mm3 (150-450); RED CELL DISTRIBUTION WIDTH 14.7 % (11.5-14.5); WHITE BLOOD COUNT 6.3 K/mm3 (4.0-10.0)
[2016-07-29 06:40] LABS: ALBUMIN 2.8 GM/DL (3.2-5.2); ALBUMIN/GLOBULIN RATIO 0.65 (1.00-1.93); BILIRUBIN,TOTAL 0.3 MG/DL (0.2-1.0); CALCIUM LEVEL 8.6 MG/DL (8.8-10.2); CREATININE FOR GFR 8.46 MG/DL (0.55-1.02); GLOMERULAR FILTRATION RATE 5.1 (>45); TOTAL PROTEIN 7.1 GM/DL (6.4-8.2)
[2016-07-29 06:45] LABS: POTASSIUM SERUM 5.4 MEQ/L (3.5-5.1)
[2016-07-29] MEDS: guaiFENesin DM LIQ 10ML UD PO PRN ×2 (06:46→21:59)
[2016-07-29] MEDS: METOPROLOL TARTRATE 100 MG TAB PO SCH ×2 (06:46→21:59)
[2016-07-29] MEDS: methylPREDNISolone INJ 125 MG/2 ML VIAL (J2930) IV SCH ×2 (06:47→08:37)
[2016-07-29] MEDS: NEPHRO-VIT TAB (NEPHROCAPS) PO SCH (06:47)
[2016-07-29] MEDS: OMEPRAZOLE 20 MG CAP PO SCH (06:47)
[2016-07-29] MEDS: CEFDINIR 300 MG CAP (OMNICEF) PO SCH ×2 (06:47→21:58)
[2016-07-29] MEDS: AMIODARONE 200 MG TAB (PACERONE) PO SCH (06:47)
[2016-07-29] MEDS: (RENVELA) SEVELAMER **CARBONate** 800 MG TAB PO SCH ×3 (06:47→18:47)
[2016-07-29] MEDS: OMEGA-3 1050MG CAPSULE PO SCH ×2 (06:48→21:58)
[2016-07-29] MEDS: ASPIRIN 325 MG TAB PO SCH (06:48)
[2016-07-29] MEDS: MAGNESIUM OXIDE 400 MG TAB (MAG-OX) PO SCH (06:48)
[2016-07-29] MEDS: IPRATROPIUM 0.5MG/ALBUTEROL 2.5MG INH SOL UD 3ML (DUONEB)(J7620) NEB SCH ×3 (07:28→20:13)
[2016-07-29] MEDS: HumaLOG INSULIN (NovoLOG) PER UNIT SC SCH ×4 (07:37→21:38)
[2016-07-29] MEDS: AZITHROMYCIN 500 MG, VIAL MATE ADAPTER 1 EACH in D5W 250 ML IV SCH (08:37)
--- NOTE | 2016-07-29 08:42 | IPNPDOC ---
Assessment/Plan Date Seen The patient was seen on 07/29/16. Problems Problems: (1) Left lower lobe pneumonia Status: Acute Problem Text: 07/25 - Patient states she is feeling improved today with respect to her breathing. She does have diffuse ronchi with rales in the LLL. She will be started on a low dose prednisone for 5-7 days for suspect of COPD involvement as well. This was suggested by and discussed with Dr. Guzman, who is seeing her for ESRD. Continue current antibiotic regimen with ceftriaxone and azithromycin. Incentive spirometry added and encouraged. 07/26 - Patient had some difficulty with dyspnea overnight, but it seems to have been more fluid volume related as it only bothered her when lying flat, not when sitting upright. Her lung sounds do not sound much improved today with crackles in the LLL. She was being taken to dialysis at the end of our conversation today, so hopefully they will be able to draw off some fluid and help her with the nocturnal dyspnea. Will continue antibiotics at this time with ceftriaxone and azithromycin (Day 3). Encouraged continued use of incentive spirometry. - IV Ceftriaxone and Zithro Day 4. IV Solumedrol. Nebs. 07/28 - Rocephin and azithromycin (Day 5, each). Changed to by mouth Cefdinir and azithromycin. Will likely dc azithromycin tomorrow as she will have gotten a full 5 day course. Continue IV solumedrol and nebulizers. Patient states she is feeling a little better today, but her lungs are sounding more wheezy compared to a couple days ago. Will order repeat chest xray given that the lung sounds are worse than previously heard. Encouraged continued use of IS, which patient states she has been using. 07/29 Completed Azithromycin x 5d, Rocephin x 5 d, now on Omnicef - abx d 6, f/u CXR 07/28 shows resolution of her infiltrate. Enc IS. (2) ESRD (end stage renal disease) on dialysis Onset Date: 07/14/2014 Status: Chronic Problem Text: Patient went to dialysis this morning (07/26). Will defer management to nephrology. 07/27/16 - Pt had dialysis yesterday. Creat 5.50. 07/28 - Patient scheduled for dialysis tomorrow. Will defer management to nephro. 07/29 - Routine dialysis today. (3) IDDM (insulin dependent diabetes mellitus) Status: Chronic Problem Text: Patient is on SSI with levemir - Reduced dosage compared to home due to reduced PO intake while in the hospital. Hypoglycemic protocol in place. (4) Chronic pain Status: Chronic Problem Text: Continue home medications. No complaints today. (5) COPD (chronic obstructive pulmonary disease) Status: Acute Problem Text: Started on low dose prednisone for 5-7 days. 1/2 - Over the weekend she was switched to solumedrol 60mg IV BID. Will continue current dose of steroids as she has increased wheezing diffusely. CXR ordered for today as well. / - Decrease solumedrol to 40 mg IV BID, possible d/c home on PO pred tomorrow (6) Anxiety Status: Chronic Problem Text: Continue home valium as needed, no acute complaints today. (7) HLD (hyperlipidemia) Status: Chronic Problem Text: Continue crestor and lovaza (8) HTN (hypertension) Status: Chronic Problem Text: BP mostly controlled. Will leave management of htn to the nephrology team. (9) GERD (gastroesophageal reflux disease) Status: Chronic Problem Text: Continue prilosec. No acute complaints today. (10) Insomnia Status: Chronic Problem Text: Continue home medication of trazodone. (11) Hyperkalemia Status: Acute Problem Text: K+ 5.4 today, has dialysis scheduled. Plan / VTE VTE Prophylaxis Ordered?: Yes Plan Plan Text Attending note: I saw and evaluated the patient, and agree with the plan of care as discussed and documented above. Patient continues to have diffuse wheezing, and shortness of breath with any exertion. She was recently transitioned to room air. Chest x- ray shows improvement of pneumonia. Dialysis today. Likely ready for d/c 07/30. Jose Luis Walker MD Subjective Review of Systems CC/HPI Pt notes that her SOB is better this morning than yesterday, most of her SOB is assoc with exertion. She denies much cough. No other concerns today. Heading to dialysis soon. Constitutional: Denies: Chills, Fever Pulmonary: Reports: Dyspnea, Denies: Cough Cardiovascular: Denies: Chest Pain, Palpitations Gastrointestinal: Denies: Constipation, Diarrhea, Nausea, Vomiting Neurological: Denies: Weakness Psych: Reports: Mood Normal Objective Physical Examination General Exam: Positive: Alert, Cooperative, No Acute Distress Eye Exam: Positive: Conjunctiva & lids normal, Negative: Sclera icteric ENT Exam: Positive: Atraumatic, Mucous membr. moist/pink Neck Exam: Positive: Supple Chest Exam: Positive: Diminished, Rales (mostly LLL), Negative: Clear to auscultation Heart Exam: Positive: Normal S1, Normal S2, Rate Normal, Regular Rhythm Abdomen Exam: Positive: Normal bowel sounds, Soft, Negative: Tenderness Extremity Exam: Negative: Edema Neuro Exam: Positive: Cranial Nerves 3-12 NL, Normal Speech Psych Exam: Positive: Oriented x 3 Vital Signs/I&O Vital Signs Date Time Temp Pulse Resp B/P Pulse Ox O2 Delivery O2 Flow Rate FiO2 07/29/16 06:46 71 138/62 07/29/16 06:00 96.7 20 93 Nasal Cannula 2.0 I&O- Last 24 Hours up to 6 AM 07/29/16 06:00 Intake Total 2640 ml Balance 2640 ml Laboratory Data Labs 24H Laboratory Tests 2 07/29/16 05:28: Blood Urea Nitrogen 81H, Creatinine 8.46H, Sodium Level 137, Potassium Level 5.4H, Chloride Level 101, Carbon Dioxide Level 22, Calcium Level 8.6L, Aspartate Amino Transf (AST/SGOT) 5L, Alanine Aminotransferase (ALT/SGPT) 16, Alkaline Phosphatase 130H, Total Bilirubin 0.3, Total Protein 7.1, Albumin 2.8L , Albumin/Globulin Ratio 0.65L, Anion Gap 14, White Blood Count 6.3, Red Blood Count 3.43L, Hemoglobin 10.7L, Hematocrit 34.4L, Mean Corpuscular Volume 100.4H , Mean Corpuscular Hemoglobin 31.1, Mean Corpuscular Hemoglobin Concent 30.9L, Red Cell Distribution Width 14.7H, Platelet Count 162, Neutrophils (%) (Auto) 88.9H, Lymphocytes (%) (Auto) 6.7L, Monocytes (%) (Auto) 3.1, Eosinophils (%) ( Auto) 0.2, Basophils (%) (Auto) 0.3, Neutrophils # (Auto) 5.6, Lymphocytes # ( Auto) 0.4L, Monocytes # (Auto) 0.2, Eosinophils # (Auto) 0.0, Basophils # (Auto ) 0.0, Glomerular Filtration Rate 5.1L, Large Unclassified Cells # 0.1, Large Unclassified Cells % 0.7 CBC/BMP Laboratory Tests 07/29/16 05:28 Calcium Level 8.6 L, Aspartate Amino Transf (AST/SGOT) 5 L, Alanine Aminotransferase (ALT/SGPT) 16, Alkaline Phosphatase 130 H, Total Bilirubin 0.3 , Total Protein 7.1, Albumin 2.8 L, Red Blood Count 3.43 L, Mean Corpuscular Volume 100.4 H, Mean Corpuscular Hemoglobin 31.1, Mean Corpuscular Hemoglobin Concent 30.9 L, Red Cell Distribution Width 14.7 H, Neutrophils (%) (Auto) 88.9 H, Lymphocytes (%) (Auto) 6.7 L, Monocytes (%) (Auto) 3.1, Eosinophils (%) (Auto ) 0.2, Basophils (%) (Auto) 0.3, Neutrophils # (Auto) 5.6, Lymphocytes # (Auto) 0.4 L, Monocytes # (Auto) 0.2, Eosinophils # (Auto) 0.0, Basophils # (Auto) 0.0 Microbiology Microbiology 07/24/16 Blood Culture - Preliminary, Resulted No Growth after 72 hours. All specime... 07/24/16 Blood Culture - Preliminary, Resulted No Growth after 72 hours. All specime... 07/28/16 Gram Stain, Received Pending 07/28/16 Sputum Culture, Received Pending 07/28/16 Influenza Virus Type A Antigen - Final, Complete 07/28/16 Influenza Virus Type B Antigen - Final, Complete MAMADOU THOMAS PA-C Jul 29, 2016 08:42 JOSE LUIS WALKER MD Jul 29, 2016 14:33
[2016-07-29] MEDS ORDERED: methylPREDNISolone INJ 40 MG/1 ML VIAL (J2920) IV SCH (09:00)
[2016-07-29] MEDS ORDERED: LIDOCAINE 1% SDV 5 ML VIAL SQ ONE (11:15)
[2016-07-29] MEDS ORDERED: HEPARIN 1,000 UNITS/ML 10ML VIAL (FOR RADIOLOGY& DIALYSIS ONLY) IV ONE (11:15)
[2016-07-29 14:00] VITALS: BP 123/61
[2016-07-29] MEDS: ROSUVASTATIN 10 MG TAB (CRESTOR) PO SCH (21:58)
[2016-07-29] MEDS: traZODone 100 MG TAB PO SCH (21:59)
[2016-07-29] MEDS: LEVEMIR (INSULIN DETEMIR) 1 UNITS/0.01ML SC SCH (21:59)
[2016-07-29] MEDS: methylPREDNISolone INJ 40 MG/1 ML VIAL (J2920) IV SCH (21:59)
[2016-07-29 22:00] VITALS: BP 125/58
[2016-07-30] MEDS: IPRATROPIUM 0.5MG/ALBUTEROL 2.5MG INH SOL UD 3ML (DUONEB)(J7620) NEB SCH ×4 (01:39→20:00)
--- NOTE | 2016-07-30 03:57 | IPN ---
DATE OF SERVICE: 07/29/2016 SUBJECTIVE: Patient was seen and examined at the bedside today in the morning. She was getting hemodialysis done. She was tolerating the hemodialysis procedure well. She reported that after starting intravenous (IV) steroids her shortness of breath started getting better. However, she still has some congestion and cough. REVIEW OF SYSTEMS: Patient denies any fevers, chills, rigors, headache, nausea, vomiting, chest pain. She did report some shortness of breath and cough and wheezing, but it is significantly better than yesterday. She denies any pain abdomen, constipation, or diarrhea. Rest of review of systems is negative. OBJECTIVE: VITAL SIGNS: Temperature is 98.1 degrees Fahrenheit, blood pressure is 123/61, pulse is 60, respiratory rate of 18, saturating 91% on room air. INTAKE AND OUTPUT: There is no urine output recorded. Weight on the bed scale was 87.7 kg. PHYSICAL EXAMINATION: GENERAL: Patient is awake, alert, oriented times three, sitting in the sofa getting hemodialysis done. HEAD AND NECK: Extraocular muscles intact. Pupils equally round and reactive to light. Neck is supple. There is no jugular venous distention (JVD). CARDIOVASCULAR: S1, S2, regular rate. No murmur, rub, or gallop. RESPIRATORY: Patient has bilateral expiratory rhonchi and there is decreased air entry at the bases. ABDOMEN: Soft. Positive bowel sounds. Nontender. No ascites. No organomegaly. EXTREMITIES: No clubbing or cyanosis. Pulses are 2+. CENTRAL NERVOUS SYSTEM: No focal neurological deficit. Power is 5/5 in all extremities. DIALYSIS ACCESS: Patient has a left forearm arteriovenous (AV) fistula being used for hemodialysis at this time. LABORATORY REVIEW: CBC showed a WBC 6.3, hemoglobin 10.7, platelets are 162. BMP showed sodium 137, potassium 5.4, chloride 101, bicarbonate 22, BUN 81, creatinine 8.4, albumin is 2.8. Microbiology: Blood cultures are negative so far. Influenza is negative. Sputum culture is negative so far. CURRENT MEDICATIONS: Patient's current medications were all reviewed by me. She continues to be on Solu-Medrol, but dose has been decreased to 40 mg intravenously (IV) every 12 hours. There is no change in the medications as compared with yesterday. ASSESSMENT: 60-year-old female with past medical history of end-stage renal disease on hemodialysis every Thursday, , Thursday, history of chronic obstructive pulmonary disease (COPD), insulin-dependent diabetes, admitted this time with left lower lobe pneumonia and COPD exacerbation. Nephrology service following the patient for management of end-stage renal disease. PLAN: 1. Left lower lobe pneumonia. Patient is currently on Omnicef and recent chest x-ray showed the infiltrate was clearing. 2. COPD exacerbation. Patient continues to be on intravenous (IV) Solu-Medrol. Dose is being tapered down. She is currently on 40 mg IV twice a day. Continue the nebulizations and continue the long-acting nebulizers as long as acute exacerbation is being treated. 3. End-stage renal disease. Patient is being dialyzed today according to her regular schedule. We shall try to do an ultrafiltration of about 3 liters as tolerated by her blood pressure.
[2016-07-30] MEDS: LEVOTHYROXINE 0.075 MG TAB (75 MCG) PO SCH (05:43)
[2016-07-30 06:00] VITALS: BP 120/62
[2016-07-30 06:18] LABS: BASO # 0.1 K/mm3 (0.0-0.2); BASO % 0.8 % (0.0-1.0); EOS % 0.4 % (0.0-3.0); LARGE UNSTAINED CELL # 0.1 K/mm3 (0.0-0.4); LARGE UNSTAINED CELL % 1.1 % (0.0-4.0); LYMPH # 0.9 K/mm3 (1.5-4.5); LYMPH % 9.2 % (24.0-44.0); MEAN CORPUSCULAR HEMOGLOBIN 31.2 pg (27.0-33.0); MEAN CORPUSCULAR HGB CONC 31.4 g/dl (32.0-36.5); MEAN CORPUSCULAR VOLUME 99.5 fl (80.0-96.0); MONO # 0.5 K/mm3 (0.0-0.8); MONO % 5.4 % (0.0-5.0); NEUTROPHILS # 7.6 K/mm3 (1.8-7.7); NEUTROPHILS % 83.1 % (36.0-66.0); PLATELET COUNT, AUTOMATED 191 k/mm3 (150-450); RED CELL DISTRIBUTION WIDTH 15.7 % (11.5-14.5); WHITE BLOOD COUNT 9.2 K/mm3 (4.0-10.0)
[2016-07-30 06:34] LABS: ALBUMIN 3.1 GM/DL (3.2-5.2); ALBUMIN/GLOBULIN RATIO 0.67 (1.00-1.93); BILIRUBIN,TOTAL 0.3 MG/DL (0.2-1.0); CALCIUM LEVEL 9.1 MG/DL (8.8-10.2); CREATININE FOR GFR 6.21 MG/DL (0.55-1.02); GLOMERULAR FILTRATION RATE 7.3 (>45); POTASSIUM SERUM 4.5 MEQ/L (3.5-5.1); TOTAL PROTEIN 7.7 GM/DL (6.4-8.2)
[2016-07-30] MEDS: HumaLOG INSULIN (NovoLOG) PER UNIT SC SCH ×4 (08:18→21:00)
[2016-07-30] MEDS: (RENVELA) SEVELAMER **CARBONate** 800 MG TAB PO SCH ×3 (08:19→17:00)
[2016-07-30] MEDS: methylPREDNISolone INJ 40 MG/1 ML VIAL (J2920) IV SCH (08:19)
[2016-07-30] MEDS: OMEPRAZOLE 20 MG CAP PO SCH (08:19)
[2016-07-30] MEDS: CEFDINIR 300 MG CAP (OMNICEF) PO SCH ×2 (08:19→22:01)
[2016-07-30] MEDS: NEPHRO-VIT TAB (NEPHROCAPS) PO SCH (08:19)
[2016-07-30] MEDS: ASPIRIN 325 MG TAB PO SCH (08:19)
[2016-07-30] MEDS: MAGNESIUM OXIDE 400 MG TAB (MAG-OX) PO SCH (08:20)
[2016-07-30] MEDS: OMEGA-3 1050MG CAPSULE PO SCH ×2 (08:20→22:01)
[2016-07-30] MEDS: AMIODARONE 200 MG TAB (PACERONE) PO SCH (08:23)
[2016-07-30] MEDS: METOPROLOL TARTRATE 100 MG TAB PO SCH ×2 (08:24→22:00)
--- NOTE | 2016-07-30 08:41 | IPNPDOC ---
Assessment/Plan Date Seen The patient was seen on 07/30/16. Problems Problems: (1) Left lower lobe pneumonia Status: Acute Problem Text: 07/25 - Patient states she is feeling improved today with respect to her breathing. She does have diffuse ronchi with rales in the LLL. She will be started on a low dose prednisone for 5-7 days for suspect of COPD involvement as well. This was suggested by and discussed with Dr. Guzman, who is seeing her for ESRD. Continue current antibiotic regimen with ceftriaxone and azithromycin. Incentive spirometry added and encouraged. 07/26 - Patient had some difficulty with dyspnea overnight, but it seems to have been more fluid volume related as it only bothered her when lying flat, not when sitting upright. Her lung sounds do not sound much improved today with crackles in the LLL. She was being taken to dialysis at the end of our conversation today, so hopefully they will be able to draw off some fluid and help her with the nocturnal dyspnea. Will continue antibiotics at this time with ceftriaxone and azithromycin (Day 3). Encouraged continued use of incentive spirometry. - IV Ceftriaxone and Zithro Day 4. IV Solumedrol. Nebs. 07/28 - Rocephin and azithromycin (Day 5, each). Changed to by mouth Cefdinir and azithromycin. Will likely dc azithromycin tomorrow as she will have gotten a full 5 day course. Continue IV solumedrol and nebulizers. Patient states she is feeling a little better today, but her lungs are sounding more wheezy compared to a couple days ago. Will order repeat chest xray given that the lung sounds are worse than previously heard. Encouraged continued use of IS, which patient states she has been using. 07/29 Completed Azithromycin x 5d, Rocephin x 5 d, now on Omnicef - abx d 6, f/u CXR 07/28 shows resolution of her infiltrate. Enc IS. 07/30/2015: CXR shows near resolve of infiltrate. AT this time, treating for COPD exacerbation. Will change to po prednisone. Plan on dialysis in am and DC home after dialysis. (2) ESRD (end stage renal disease) on dialysis Onset Date: 07/14/2014 Status: Chronic Problem Text: Patient went to dialysis this morning (07/26). Will defer management to nephrology. 07/27/16 - Pt had dialysis yesterday. Creat 5.50. 07/28 - Patient scheduled for dialysis tomorrow. Will defer management to nephro. 07/29 - Routine dialysis today. (3) IDDM (insulin dependent diabetes mellitus) Status: Chronic Problem Text: Patient is on SSI with levemir - Reduced dosage compared to home due to reduced PO intake while in the hospital. Hypoglycemic protocol in place. (4) Chronic pain Status: Chronic Problem Text: Continue home medications. No complaints today. (5) COPD (chronic obstructive pulmonary disease) Status: Acute Problem Text: Started on low dose prednisone for 5-7 days. 07/28 - Over the weekend she was switched to solumedrol 60mg IV BID. Will continue current dose of steroids as she has increased wheezing diffusely. CXR ordered for today as well. 07/29 - Decrease solumedrol to 40 mg IV BID, possible d/c home on PO pred tomorrow 07/30/2015: on home oxygen at night. Plan po prednisone. Continue nebs and DC home in am. (6) Anxiety Status: Chronic Problem Text: Continue home valium as needed, no acute complaints today. (7) HLD (hyperlipidemia) Status: Chronic Problem Text: Continue crestor and lovaza (8) HTN (hypertension) Status: Chronic Problem Text: BP mostly controlled. Will leave management of htn to the nephrology team. (9) GERD (gastroesophageal reflux disease) Status: Chronic Problem Text: Continue prilosec. No acute complaints today. (10) Insomnia Status: Chronic Problem Text: Continue home medication of trazodone. (11) Hyperkalemia Status: Acute Problem Text: K+ 5.4 today, has dialysis scheduled. (12) Oral candidiasis Status: Acute Problem Text: Nystatin swish and swallow added on. Encourage to rinse mouth after nebs. Plan / VTE VTE Prophylaxis Ordered?: Yes Subjective Review of Systems CC/HPI The patient is a 60-year-old female admitted with a reason for visit of Esrd On Dialysis; Pna. Events since last encounter In need of oxygen overnight due to desaturation. However, patient uses 2LNC at night at home. States feel close to baseline. c/o sore throat since admission. Constitutional: Denies: Chills, Fever ENT: Reports: Sore Throat, Denies: Dysphagia, Ear Pain, Head Aches Skin: Denies: Lesions, Rash Pulmonary: Reports: Cough, Dyspnea Cardiovascular: Denies: Chest Pain, Orthopnea, Palpitations Gastrointestinal: Denies: Abdominal Pain, Constipation, Diarrhea, Nausea, Vomiting Genitourinary: Denies: Dysuria, Frequency Psych: Reports: Mood Normal Objective Physical Examination General Exam: Positive: Alert, Cooperative, No Acute Distress Eye Exam: Positive: Conjunctiva & lids normal, Negative: Sclera icteric ENT Exam: Positive: Atraumatic, Mucous membr. moist/pink, Other ENT (white macules to posterior oropharynx. ) Neck Exam: Positive: Supple Chest Exam: Positive: Wheezing (bilateral apices. ), Negative: Clear to auscultation Heart Exam: Positive: Normal S1, Normal S2, Rate Normal, Regular Rhythm Abdomen Exam: Positive: Normal bowel sounds, Soft, Negative: Tenderness Extremity Exam: Negative: Edema Neuro Exam: Positive: Cranial Nerves 3-12 NL, Normal Speech Psych Exam: Positive: Oriented x 3 Vital Signs/I&O Vital Signs Date Time Temp Pulse Resp B/P Pulse Ox O2 Delivery O2 Flow Rate FiO2 07/30/16 08:24 66 136/66 07/30/16 06:00 98.5 20 91 Nasal Cannula 1.0 I&O- Last 24 Hours up to 6 AM 07/30/16 06:00 Intake Total 1680 ml Output Total 3000 ml Balance -1320 ml Laboratory Data Labs 24H Laboratory Tests 2 07/29/16 12:51: Bedside Glucose (Misc Panel) 255H 07/29/16 16:44: Bedside Glucose (Misc Panel) 262H 07/29/16 20:59: Bedside Glucose (Misc Panel) 205H 07/30/16 05:51: Blood Urea Nitrogen 59H, Creatinine 6.21H, Sodium Level 133L, Potassium Level 4.5, Chloride Level 95L, Carbon Dioxide Level 29, Calcium Level 9.1, Aspartate Amino Transf (AST/SGOT) 5L, Alanine Aminotransferase (ALT/SGPT) 17, Alkaline Phosphatase 144H, Total Bilirubin 0.3, Total Protein 7.7, Albumin 3.1L, Albumin/ Globulin Ratio 0.67L, Anion Gap 9, White Blood Count 9.2, Red Blood Count 3.79L , Hemoglobin 11.8L, Hematocrit 37.7, Mean Corpuscular Volume 99.5H, Mean Corpuscular Hemoglobin 31.2, Mean Corpuscular Hemoglobin Concent 31.4L, Red Cell Distribution Width 15.7H, Platelet Count 191, Neutrophils (%) (Auto) 83.1H , Lymphocytes (%) (Auto) 9.2L, Monocytes (%) (Auto) 5.4H, Eosinophils (%) (Auto ) 0.4, Basophils (%) (Auto) 0.8, Neutrophils # (Auto) 7.6, Lymphocytes # (Auto) 0.9L, Monocytes # (Auto) 0.5, Eosinophils # (Auto) 0.0, Basophils # (Auto) 0.1, Glomerular Filtration Rate 7.3L, Large Unclassified Cells # 0.1, Large Unclassified Cells % 1.1 CBC/BMP Laboratory Tests 07/30/16 05:51 Calcium Level 9.1, Aspartate Amino Transf (AST/SGOT) 5 L, Alanine Aminotransferase (ALT/SGPT) 17, Alkaline Phosphatase 144 H, Total Bilirubin 0.3 , Total Protein 7.7, Albumin 3.1 L, Red Blood Count 3.79 L, Mean Corpuscular Volume 99.5 H, Mean Corpuscular Hemoglobin 31.2, Mean Corpuscular Hemoglobin Concent 31.4 L, Red Cell Distribution Width 15.7 H, Neutrophils (%) (Auto) 83.1 H, Lymphocytes (%) (Auto) 9.2 L, Monocytes (%) (Auto) 5.4 H, Eosinophils (%) ( Auto) 0.4, Basophils (%) (Auto) 0.8, Neutrophils # (Auto) 7.6, Lymphocytes # ( Auto) 0.9 L, Monocytes # (Auto) 0.5, Eosinophils # (Auto) 0.0, Basophils # (Auto ) 0.1 FSBS Laboratory Tests Test 07/29/16 12:51 07/29/16 16:44 07/29/16 20:59 Range/Units Bedside Glucose (Misc Panel) 255 262 205 80-115 MG/DL Microbiology Microbiology 07/24/16 Blood Culture - Final, Complete NO GROWTH AFTER 5 DAYS 07/24/16 Blood Culture - Final, Complete NO GROWTH AFTER 5 DAYS 07/28/16 Gram Stain - Final, Resulted 07/28/16 Sputum Culture, Resulted Pending 07/28/16 Influenza Virus Type A Antigen - Final, Complete 07/28/16 Influenza Virus Type B Antigen - Final, Complete Teodora Dejesus [employer] Jul 30, 2016 08:40
[2016-07-30] MEDS ORDERED: CEFD300CAP PO (10:07)
[2016-07-30] MEDS: NYSTATIN 500,000 U/5 ML SUSP UDC SS SCH ×3 (10:15→22:00)
--- NOTE | 2016-07-30 13:13 | IPN ---
DATE: 07/30/2016 SUBJECTIVE: Patient was seen and examined at the bedside today. She reports that her shortness of breath and wheezing is much better. She also tells that she was found to have oral thrush today and she has been started on Nystatin. She got hemodialysis procedure yesterday and she tolerated the hemodialysis well. REVIEW OF SYSTEMS: Patient denies any fevers, chills, rigors, headache, nausea, vomiting. She does report oral thrush. She denies any chest pain. Her shortness of breath and wheezing is getting better. She denies any pain in abdomen, constipation or diarrhea. All other review of systems is negative. OBJECTIVE: VITAL SIGNS: Temperature is 98.5 degrees Fahrenheit, blood pressure is 120/62, pulse is 65, respiratory rate of 18, saturating 91% on nasal cannula. INTAKE AND OUTPUT: Patient got hemodialysis done yesterday. Three liters of ultrafiltration was done. Weight on the bed scale was 87.7 kg. PHYSICAL EXAMINATION: GENERAL: Patient is awake, alert, oriented times three, sitting on the bed, in no apparent distress. HEAD AND NECK: Extraocular muscles intact. Pupils equally round and reactive to light. Neck is supple. There is positive oral thrush in the oropharynx. There is no jugular venous distention (JVD). CARDIOVASCULAR: S1, S2, regular rate. No murmur, rub, or gallop. RESPIRATORY: Patient has end expiratory rhonchi all over the chest, but it is getting better as compared with yesterday. ABDOMEN: Soft. Positive bowel sounds. Nontender. No ascites. No organomegaly. EXTREMITIES: No clubbing or cyanosis. Pulses are 2+. CENTRAL NERVOUS SYSTEM: No focal neurological deficit. Power is 5/5 in all extremities. DIALYSIS ACCESS: Patient has a left forearm arteriovenous (AV) fistula with positive thrill and bruit. LABORATORY REVIEW: CBC showed a WBC 9.2, hemoglobin 11.8, platelets are 191. BMP showed sodium 133, potassium 4.5, chloride 95, bicarbonate 29, BUN 59, creatinine 6.2, albumin 3.1. Microbiology: Sputum gram stain showed normal chaparro. Blood cultures are negative. CURRENT MEDICATIONS: Patient's current medications were all reviewed by me. She continues to be on oral Cefdinir and she has been started on Nystatin swish and swallow. Her Solu-Medrol has been stopped and she is switched to prednisone 60 mg by mouth daily. ASSESSMENT: 60-year-old female with past medical history of end-stage renal disease on hemodialysis every Thursday, , Thursday, history of chronic obstructive pulmonary disease (COPD), insulin-dependent diabetes, admitted at this time with left lower lobe pneumonia and COPD exacerbation. Nephrology service is following the patient for management of end-stage renal disease. PLAN: 1. End stage renal disease. The patient was dialyzed according to her regular schedule yesterday. Next hemodialysis session will be tomorrow. 2. Left lower lobe pneumonia. Patient is currently on oral Omnicef and pneumonia is improving. 3. COPD exacerbation. Patient's IV steroids have been stopped. She is currently on by mouth steroids. She continues to be on nebulizations. Symptoms are getting better. 4. Oral thrush. Her steroids are being tapered down and she is currently on oral Nystatin as well.
[2016-07-30 14:00] VITALS: BP 153/70
[2016-07-30] MEDS ORDERED: predniSONE 20 MG TAB PO SCH (17:00)
[2016-07-30] MEDS: LEVEMIR (INSULIN DETEMIR) 1 UNITS/0.01ML SC SCH (21:00)
[2016-07-30 22:00] VITALS: BP 151/69
[2016-07-30] MEDS: traZODone 100 MG TAB PO SCH (22:00)
[2016-07-30] MEDS: ROSUVASTATIN 10 MG TAB (CRESTOR) PO SCH (22:01)
[2016-07-31] MEDS: IPRATROPIUM 0.5MG/ALBUTEROL 2.5MG INH SOL UD 3ML (DUONEB)(J7620) NEB SCH ×2 (02:00→08:00)
[2016-07-31] MEDS: CEFDINIR 300 MG CAP (OMNICEF) PO SCH (05:47)
[2016-07-31] MEDS: MAGNESIUM OXIDE 400 MG TAB (MAG-OX) PO SCH (05:48)
[2016-07-31] MEDS: OMEPRAZOLE 20 MG CAP PO SCH (05:48)
[2016-07-31] MEDS: OMEGA-3 1050MG CAPSULE PO SCH (05:48)
[2016-07-31 05:49] VITALS: BP 147/79
[2016-07-31] MEDS: AMIODARONE 200 MG TAB (PACERONE) PO SCH (05:49)
[2016-07-31] MEDS: NEPHRO-VIT TAB (NEPHROCAPS) PO SCH (05:49)
[2016-07-31] MEDS: METOPROLOL TARTRATE 100 MG TAB PO SCH (05:49)
[2016-07-31] MEDS: LEVOTHYROXINE 0.075 MG TAB (75 MCG) PO SCH (05:51)
[2016-07-31] MEDS: ASPIRIN 325 MG TAB PO SCH (05:51)
[2016-07-31 06:00] VITALS: BP 147/79
[2016-07-31 07:15] LABS: BASO % 0.2 % (0.0-1.0); EOS % 0.2 % (0.0-3.0); LARGE UNSTAINED CELL # 0.1 K/mm3 (0.0-0.4); LARGE UNSTAINED CELL % 0.9 % (0.0-4.0); LYMPH # 0.6 K/mm3 (1.5-4.5); LYMPH % 7.1 % (24.0-44.0); MEAN CORPUSCULAR HEMOGLOBIN 30.8 pg (27.0-33.0); MEAN CORPUSCULAR HGB CONC 31.3 g/dl (32.0-36.5); MEAN CORPUSCULAR VOLUME 98.5 fl (80.0-96.0); MONO # 0.4 K/mm3 (0.0-0.8); NEUTROPHILS # 7.7 K/mm3 (1.8-7.7); NEUTROPHILS % 87.6 % (36.0-66.0); PLATELET COUNT, AUTOMATED 182 k/mm3 (150-450); RED CELL DISTRIBUTION WIDTH 15.1 % (11.5-14.5); WHITE BLOOD COUNT 8.8 K/mm3 (4.0-10.0)
[2016-07-31] MEDS ORDERED: PRED20TA PO (07:16)
[2016-07-31 07:27] LABS: ALBUMIN 2.8 GM/DL (3.2-5.2); ALBUMIN/GLOBULIN RATIO 0.64 (1.00-1.93); BILIRUBIN,TOTAL 0.3 MG/DL (0.2-1.0); CALCIUM LEVEL 8.7 MG/DL (8.8-10.2); CREATININE FOR GFR 8.29 MG/DL (0.55-1.02); GLOMERULAR FILTRATION RATE 5.2 (>45); POTASSIUM SERUM 5.1 MEQ/L (3.5-5.1); TOTAL PROTEIN 7.2 GM/DL (6.4-8.2)
[2016-07-31] MEDS: HumaLOG INSULIN (NovoLOG) PER UNIT SC SCH (07:59)
[2016-07-31] MEDS: (RENVELA) SEVELAMER **CARBONate** 800 MG TAB PO SCH (07:59)
[2016-07-31] MEDS: NYSTATIN 500,000 U/5 ML SUSP UDC SS SCH (08:00)
--- NOTE | 2016-08-04 10:04 | DSES ---
DATE OF ADMISSION: 07/24/2016 DATE OF DISCHARGE: 07/31/2016 PRIMARY CARE PROVIDER: MAYDA Tsai, Aiden Nieves MD ATTENDING PHYSICIAN: Susan Gonzalez DO HISTORY OF PRESENT ILLNESS: 60-year-old female with past medical history significant for insulin-dependent diabetes, endstage renal disease on hemodialysis with Dr. Bond, chronic pulmonary obstructive disease (COPD) who presented with complaints of shortness of breath, persistent, nonproductive cough, feeling cold. Work up in [facility] showed a left lower lobe pneumonia. The patient was subsequently admitted. HOSPITAL COURSE: The patient was placed on intravenous (IV) Solu-Medrol, nebulizers, antibiotic regimen which included ceftriaxone and Azithromycin. The patient started incentive spirometry. All routine medications were continued. The patient received her routine dialysis treatments while in the hospital and nephrology followed. Repeat chest x-ray on 07/28 showed near resolve of the left lower lobe infiltrate; however, the patient continued to have wheezing, shortness of breath, and dyspnea. Steroids were continued. On 07/30 the patient was transitioned to by mouth prednisone, continued with incentive spirometry and nebulizers with anticipation for discharge this morning. PHYSICAL EXAMINATION: Oxygen saturation stable at 91% on room air. The patient does use oxygen overnight. She used 1 liter nasal cannula while inpatient and maintained her saturation above 90%. She denies chest pain, headache, blurry vision, dizziness, worsening dyspnea or severe shortness of breath. She does continue with a dry cough and a mild sore throat. HEENT: Neck is supple without lymphadenopathy or jugular venous distention (JVD). CARDIOVASCULAR: Heart rate has been irregular. PULMONARY: Lungs clear to auscultation bilaterally. ASSESSMENT: 1. Community acquired pneumonia. 2. Endstage renal disease with hemodialysis. 3. Chronic pulmonary obstructive disease (COPD) exacerbation. 4. [id number] diabetes. 5. History of atrial flutter. 6. History of hypertensive heart disease. 7. History of hyperparathyroidism. 8. Coronary artery disease (CAD). 9. Anxiety. 10. Obstructive sleep apnea. PLAN: The patient will be discharged home. Diet is renal diet with carbohydrate consistent diet. ACTIVITIES: As tolerated. She will proceed to hemodialysis today with Dr. Bond and Dr. Guzman. She will followup with her private care physician (PCP) which is myself or Dr. Nieves within the next 5-7 days. DISCHARGE MEDICATIONS: - Cefdinir 300 mg capsule by mouth twice a day for five more days - hydrocodone with acetaminophen 5/325 one tablet by mouth twice a day as needed - amiodarone 200 mg by mouth daily - aspirin 325 mg tablet by mouth daily - calcitriol 0.25 mcg capsule, she is to take 3 by mouth three times weekly - Flexeril 5 mg tablets by mouth three times a day as needed muscle spasm - diazepam 5 mg by mouth twice a day as needed anxiety - Colace 100 mg by mouth daily as needed constipation - Epogen 3000 units injection three times per week with hemodialysis - Lantus Solo Star 4-6 units subcutaneous nightly - levothyroxine 75 micrograms by mouth daily - Magnesium oxide 400 mg by mouth daily - metoprolol tartrate 100 mg by mouth twice a day - [place] 3 fatty acid 2 capsules by mouth twice a day - omeprazole 40 mg by mouth daily - Zofran 0.4 mg tablet by mouth every 6 hours as needed for nausea - Crestor 20 mg by mouth nightly - Renvela 800 mg tablet, she is to take 2400 mg by mouth on Thursday and Thursday - sodium polystyrene sulfonate 15 grams per 60 mL suspension, she is to take 15 grams as directed - Spiriva Handi-Haler, one inhalation daily - trazodone 100 mg by mouth nightly - vitamin B complex one by mouth daily - vitamin D 50,000 units by mouth weekly - prednisone 40 mg daily for the next five days The patient is discharged in stable, satisfactory condition at the time of discharge.
== END 2016-07-31 10:17 | disposition home or self-care (01) | DRG 193 ==
LOC: M ED 10:20 → M ED INP 16:05 → M MSPAV 22:03
PROVIDERS: ADMIT Internal Medicine; ATTEND Family Medicine
PROC: 5A1D60Z (ICD-10-PCS; principal; 2016-07-24)
DX: J18.9 Pneumonia, unspecified organism (principal); N18.6 End stage renal disease; I48.92 Unspecified atrial flutter; I13.11 Hypertensive heart and chronic kidney disease without heart failure, with stage 5 chronic kidney disease, or end stage renal disease; N25.81 Secondary hyperparathyroidism of renal origin; J44.1 Chronic obstructive pulmonary disease with (acute) exacerbation; B37.0 Candidal stomatitis; E11.9 Type 2 diabetes mellitus without complications; D63.1 Anemia in chronic kidney disease; F41.9 Anxiety disorder, unspecified; E66.01 Morbid (severe) obesity due to excess calories; G47.33 Obstructive sleep apnea (adult) (pediatric); E03.9 Hypothyroidism, unspecified; K21.9 Gastro-esophageal reflux disease without esophagitis; M54.2 Cervicalgia; Z99.2 Dependence on renal dialysis; Z79.82 Long term (current) use of aspirin; Z79.4 Long term (current) use of insulin; Z68.36 Body mass index [BMI] 36.0-36.9, adult

== ENCOUNTER → 2016-08-12 | Outpatient (REF) | payer MEDICARE, MEDICAID ==
[~2016-08-12] MED LIST changes: +AMIO20TA PO; +ASPI325T PO; +CEFD300CAP PO; +COLA100C PO; +CRES20TA PO; +CYCL5TA PO; +DIAZ5TAB PO; +DRIS50002 PO; +EPOG3000 INJ; +HYDR-3713 PO; -HYDR1TAB97 PO; +LANTINJ4 SC; +LEVO75TA4 PO; +MAGN400T5 PO; +NEPHTAB PO; +NORC5TAB PO; +PRED20TA PO; +RENV2TAB PO; +ROCA0.25 PO; +SODI15SS PO; +TRAZ10TA PO; +ZOFR4TAB3 PO
== END ==
LOC: M SFHCPLAZ 11:32
PROVIDERS: ATTEND Physician Assistant Medical
DX: J18.9 Pneumonia, unspecified organism (principal); Z53.8 Procedure and treatment not carried out for other reasons

== ENCOUNTER → 2016-08-12 | Outpatient (CLI) | payer MEDICARE, MEDICAID ==
[2016-08-12 13:41] LABS: BASO % 0.8 % (0.0-1.0); EOS # 0.2 K/mm3 (0.0-0.50); EOS % 5.4 % (0.0-3.0); LARGE UNSTAINED CELL # 0.1 K/mm3 (0.0-0.4); LARGE UNSTAINED CELL % 2.7 % (0.0-4.0); LYMPH # 0.8 K/mm3 (1.5-4.5); LYMPH % 27.1 % (24.0-44.0); MEAN CORPUSCULAR HEMOGLOBIN 32.8 pg (27.0-33.0); MEAN CORPUSCULAR HGB CONC 32.3 g/dl (32.0-36.5); MEAN CORPUSCULAR VOLUME 101.5 fl (80.0-96.0); MONO # 0.2 K/mm3 (0.0-0.8); MONO % 6.5 % (0.0-5.0); NEUTROPHILS # 1.7 K/mm3 (1.8-7.7); NEUTROPHILS % 57.6 % (36.0-66.0); RED CELL DISTRIBUTION WIDTH 15.9 % (11.5-14.5)
[2016-08-12 13:46] LABS: CALCIUM LEVEL 8.4 MG/DL (8.8-10.2); CREATININE FOR GFR 5.24 MG/DL (0.55-1.02); GLOMERULAR FILTRATION RATE 8.9 (>45); POTASSIUM SERUM 4.8 MEQ/L (3.5-5.1)
--- NOTE | 2016-08-12 14:30 | REP ---
CHEST X-RAY: Two views. HISTORY: Pneumonia. Comparison chest x-ray July 28, 2016. FINDINGS: Heart size is borderline unchanged from comparison study. Pulmonary vasculature is not increased. Pleural angles are sharp. The lungs are symmetrically aerated and clear. There are degenerative changes in the thoracic spine. IMPRESSION: Borderline heart size. No evidence of infiltrate, pleural effusion, or pulmonary edema. Signed by Florin Mauricio MD 08/12/2016 02:35 P
[2016-08-12 14:35] LABS: PLATELET COUNT, AUTOMATED 64 k/mm3 (150-450)
== END ==
LOC: M LAB 12:32
PROVIDERS: ATTEND Physician Assistant Medical
DX: J18.9 Pneumonia, unspecified organism (principal)
CPT/HCPCS: 36415; 71020; 80048; 85025; G0463

== ENCOUNTER 2016-08-13 18:27 | Emergency (ER) | payer MEDICARE, MEDICAID ==
[2016-08-13] MEDS ORDERED: diphenhydrAMINE INJ 50MG/ML VIAL (J1200) As Ordered ONE (19:07)
[2016-08-13] MEDS ORDERED: FAMOTIDINE INJ 20MG/2ML VIAL (S0028) As Ordered ONE (19:08)
[2016-08-13] MEDS ORDERED: methylPREDNISolone INJ 125 MG/2 ML VIAL (J2930) As Ordered ONE (19:08)
[2016-08-13] MEDS ORDERED: IPRATROPIUM 0.5MG/ALBUTEROL 2.5MG INH SOL UD 3ML (DUONEB)(J7620) As Ordered ONE (19:09)
--- NOTE | 2016-08-13 19:29 | REP ---
PA and lateral chest: Comparison is 08/12/2016. Borderline cardiomegaly is again noted, unchanged. There are no infiltrates or effusions. There are no masses. The velma, mediastinum, and bony thorax are unremarkable. Impression: Borderline cardiomegaly. No acute cardiopulmonary findings. No interval change. Signed by Scout Barclay MD 08/13/2016 07:21 P
[2016-08-13] MEDS ORDERED: ALBUTEROL SULFATE 2.5 MG/0.5 ML INH NEB SOLN As Ordered ONE (19:37)
[2016-08-13 19:59] LABS: MEAN CORPUSCULAR HEMOGLOBIN 32.1 pg (27.0-33.0); MEAN CORPUSCULAR HGB CONC 30.8 g/dl (32.0-36.5); MEAN CORPUSCULAR VOLUME 104.2 fl (80.0-96.0); RED CELL DISTRIBUTION WIDTH 17.3 % (11.5-14.5); WHITE BLOOD COUNT 8.3 K/mm3 (4.0-10.0)
--- NOTE | 2016-08-13 20:43 | EDDOCDS ---
Physician Documentation [facility] Name: Caro Carnes Age: 60 yrs Sex: Female : 1955 Arrival Date: 08/13/2016 Time: 18:27 Bed 9 Private MD: Aiden Nieves Disposition: 08/13/16 20:19 Discharged to Home/Self Care. Impression: Allergic urticaria - allergic reaction. - Condition is Stable. - Discharge Instructions: Allergies. - Medication Reconciliation, Local Pharmacy Hours form. - Follow up: Aiden Nieves MD; When: 1 - 2 days; Reason: Recheck today's complaints, Continuance of care. - Problem is an acute exacerbation. - Symptoms have improved. Historical: - Allergies: tequin (mouth swells); - Home Meds: 1. amiodarone 200 mg Oral tab 1 tab once daily 2. aspirin 325 mg Oral tab 1 tab once daily 3. calcitriol 0.75 mcg oral cap three times a week at dialysis 4. Colace 100 mg oral cap 1 cap as needed 5. Crestor 20 mg Oral tab 1 tab nightly 6. cyclobenzaprine 5 mg Oral tab 1 tab 3 times per day as needed 7. diazepam 5 mg Oral tab 1 tab 2 times per day as needed 8. Epogen 3,000 unit/mL injection soln 3 times per wk at dialysis 9. hydrocodone-acetaminophen 5-325 mg Oral tab 1 tab every 12 hours as needed 10. Lantus 100 unit/mL Sub-Q soln 46 unit nightly 11. levothyroxine 75 mcg Oral cap 1 cap once daily 12. Lovaza 1 gram oral cap 2 caps 2 times per day 13. magnesium oxide 400 mg Oral tab 400 mg daily 14. metoprolol tartrate 100 mg Oral tab 1 tab 2 times per day 15. Nephro-Mirella oral tab 1 tab daily 16. omeprazole 40 mg Oral cpDR 1 cap once daily 17. Renvela 800 mg oral tab 3 tabs 3 times per day 18. Spiriva with HandiHaler 18 mcg Inhl CpDv 1 cap once daily 19. SPS 15 gram/60 mL Oral susp 60 mL once daily if told to take by dialysis - has not taken in some time 20. trazodone 100 mg Oral tab 1 tab nightly 21. [place] [address] unit every 2 weeks 22. Zofran (as hydrochloride) 4 mg Oral tab 1 tabs every 8 hours as needed - PMHx: Diabetes - IDDM: controlled; GERD; Hypercholesterolemia; Hypertension; kidney failure; Renal Failure with Dialysis; - PSHx: none; - Social history: No barriers to communication noted, Smoking status: Patient states former smoker of tobacco. - Family history: No immediate family members are acutely ill. - : The pt / caregiver states he / she is not on anticoagulants. Home medication list is obtained from [employer] import data. - Exposure Risk Screening:: None identified. Vital Signs: 08/13 18:36 BP 158 / 70; Pulse 70; Resp 18; Temp 96.8(TE); Pulse Ox 95% on R/A; Weight 87.09 kg / nb2 192 lbs (R); Height 5 ft. 1 in. (154.94 cm) (R); Pain 0/10; 18:53 Pulse Ox 100% on 4 lpm NC; mdr 20:40 BP 149 / 67; Pulse 74; Resp 18; Temp 96.9(O); Pulse Ox 92% on 2 lpm NC; Pain 0/10; nn1 18:36 Body Mass Index 36.28 (87.09 kg, 154.94 cm) nb2 18:53 Pt. put on 4 lpm nasal cannula mdr MDM: 19:04 IV Saline Lock ordered. ke 19:04 NS 0.9% 1000 ml IV at 250 mL/hr continuous ordered. ke 19:04 Solu-MEDROL 125 mg IVP once ordered. ke 19:04 diphenhydrAMINE 50 mg IVP once ordered. ke 19:04 Famotidine 20 mg IVPB once over 30 mins; dilute in 50mL of NS ordered. ke 19:04 Albuterol 5 mg Nebulizer once ordered. ke 19:04 Albuterol-Ipratropium 3 ml Inhalation once ordered. ke 19:04 Call Respiratory ordered. ke 19:05 CBC Ordered. EDMS 19:05 Call Respiratory complete. kb5 19:05 BNP Ordered. EDMS 19:05 Chest, 2 View (pa\E\lat) Ordered. EDMS 19:07 Financial registration complete. zo 19:08 [facility] [place] was scanned into [employer] and attached to record. zo 20:08 CBC Reviewed. ke 20:08 BNP Reviewed. ke 20:08 Chest, 2 View (pa\E\lat) Reviewed. ke Administered Medications: 19:32 Drug: Albuterol-Ipratropium 3 ml [ipratropium-albuterol 0.5 mg-3 mg(2.5 mg base)/3 mL jh6 nebulization soln (3 mL)] Route: Inhalation; 19:35 Drug: NS 0.9% 1000 ml [sodium chloride 0.9 % intravenous solution] Route: IV; Rate: 250 nn1 mL/hr; Site: right antecubital; 19:35 Drug: Solu-MEDROL 125 mg [Solu-Medrol 500 mg intravenous solution (125 mg)] Route: IVP; nn1 Site: right antecubital; 19:35 Drug: diphenhydrAMINE 50 mg [diphenhydramine 50 mg/mL injection solution (1 mL)] Route: nn1 IVP; Site: right antecubital; 19:35 Drug: Famotidine 20 mg [famotidine 10 mg/mL intravenous solution] Route: IVPB; Infused nn1 Over: 30 mins; Site: right antecubital; 20:16 Follow up: IV Status: Completed infusion srm 19:40 Drug: Albuterol 5 mg [albuterol sulfate 2.5 mg/0.5 mL solution for nebulization (1 mL)] jh6 Route: Nebulizer; Signatures: Dispatcher [employer] EDRemberto Jameson, REEL FED PRINTER REEL FED PRINTER Solange Seay Kristopher, REED OR WIND INSTRUMENT REPAIRER REED OR WIND INSTRUMENT REPAIRER kb5 Radha Sifuentes RN RN nr1 Perla Robin RN RN nn1 Jaqueline Menon RN, Jacob 6 The chart was reviewed and I authenticate all verbal orders and agree with the evaluation and treatment provided.Attachments: 19:08 [facility] Payment Agreement zo [email or web address]
--- NOTE | 2016-08-13 20:43 | EDDOCDS ---
Nurse's Notes [facility] Name: Caro Carnes Age: 60 yrs Sex: Female : 1955 Arrival Date: 08/13/2016 Time: 18:27 Bed 9 Private MD: Aiden Nieves Diagnosis: Allergic urticaria-allergic reaction Presentation: 08/13 18:29 Presenting complaint: EMS states: c/o shortness of breath with cough. Per patient nr1 "feels like throat closing with facial tingling." Started on azithromycin cefidinr yesterday for diagnosis of PNA. Adult Sepsis Screening: The patient does not have new or worsening altered mentation. Patient has a respiratory rate of greater than or equal to 22 (1 point). Systolic blood pressure is greater than 100. Patient has a qSOFA score of 1- Negative Sepsis Screen. Suicide/Homicide risk assessment- the patient denies having any suicidal and/or homicidal ideations and does not present with any other emotional, behavioral or mental health complaints. Status: Patient is not a dental services director or dependent. Transition of care: patient was not received from another setting of care. 18:29 Acuity: MUNDO Level 3 nr1 18:29 Method Of Arrival: Ambulance nr1 Triage Assessment: 18:37 General: Appears in no apparent distress, obese, Behavior is cooperative. Pain: Denies nr1 pain. Pt Declines HIV testing. The patient is triaged at the bedside. See Assessment in Nurses Notes section of ED record. Cardiovascular: Rhythm is sinus rhythm No ectopy. Respiratory: Onset: The symptoms/episode began/occurred this morning, Airway is patent Respiratory effort is even, unlabored, Respiratory pattern is regular, symmetrical, Breath sounds with wheezes expiratory in right posterior lower lobe. Historical: - Allergies: tequin (mouth swells); - Home Meds: 1. amiodarone 200 mg Oral tab 1 tab once daily 2. aspirin 325 mg Oral tab 1 tab once daily 3. calcitriol 0.75 mcg oral cap three times a week at dialysis 4. Colace 100 mg oral cap 1 cap as needed 5. Crestor 20 mg Oral tab 1 tab nightly 6. cyclobenzaprine 5 mg Oral tab 1 tab 3 times per day as needed 7. diazepam 5 mg Oral tab 1 tab 2 times per day as needed 8. Epogen 3,000 unit/mL injection soln 3 times per wk at dialysis 9. hydrocodone-acetaminophen 5-325 mg Oral tab 1 tab every 12 hours as needed 10. Lantus 100 unit/mL Sub-Q soln 46 unit nightly 11. levothyroxine 75 mcg Oral cap 1 cap once daily 12. Lovaza 1 gram oral cap 2 caps 2 times per day 13. magnesium oxide 400 mg Oral tab 400 mg daily 14. metoprolol tartrate 100 mg Oral tab 1 tab 2 times per day 15. Nephro-Mirella oral tab 1 tab daily 16. omeprazole 40 mg Oral cpDR 1 cap once daily 17. Renvela 800 mg oral tab 3 tabs 3 times per day 18. Spiriva with HandiHaler 18 mcg Inhl CpDv 1 cap once daily 19. SPS 15 gram/60 mL Oral susp 60 mL once daily if told to take by dialysis - has not taken in some time 20. trazodone 100 mg Oral tab 1 tab nightly 21. Vitamin D Oral 32579 unit every 2 weeks 22. Zofran (as hydrochloride) 4 mg Oral tab 1 tabs every 8 hours as needed - PMHx: Diabetes - IDDM: controlled; GERD; Hypercholesterolemia; Hypertension; kidney failure; Renal Failure with Dialysis; - PSHx: none; - Social history: No barriers to communication noted, Smoking status: Patient states former smoker of tobacco. - Family history: No immediate family members are acutely ill. - : The pt / caregiver states he / she is not on anticoagulants. Home medication list is obtained from [employer] import data. - Exposure Risk Screening:: None identified. Screenin:41 Screening information is obtained from the patient. Fall risk: No risks identified. nn1 Assistance ADL's: requires no assistance with activities of daily living. Abuse/DV Screen: The patient / caregiver reports he/she is: not in a situation that causes fear, pain or injury. Nutritional screening: No deficits noted. Advance Directives: Currently, there is no health care proxy. home support is adequate. Assessment: 19:36 General: Appears in no apparent distress, comfortable, Behavior is appropriate for age, nn1 cooperative. Pain: Denies pain. Neurological: Level of Consciousness is awake, alert. Cardiovascular: Capillary refill < 3 seconds Heart tones S1 S2 present Reports shortness of breath. Respiratory: Airway is patent Respiratory effort is even, unlabored, Respiratory pattern is regular, symmetrical, Breath sounds are diminished bilaterally. Reports shortness of breath SOB began at approximately 1700, patient felt she could not catch her breath . States she feels like her throat is tight and that her tongue is swollen. Reports numbness all over. GI: Abdomen is obese, Denies nausea, vomiting. Derm: Skin is pink, warm & dry. normal, No rash noted. 19:38 General: Patient reports starting new antibiotic at 0800 this morning. Unsure if she nn1 has ever taken antibiotic before. . 19:57 General: Patient reports feeling hot all over. Patient states breathing has improved, nn1 denies tightness in her throat at this time. Fluids and famotidine infusing per order. Patient does not appear flushed, no rash or hives noted at this time. Provider notified of patients complaints. . 20:39 General: Appears in no apparent distress, comfortable, Behavior is appropriate for age, nn1 cooperative. General: Patient denies SOB at this time. Patient denies throat tightness. Patient reports symptoms improved at this time. Pain: Denies pain. Neurological: Level of Consciousness is awake, alert. Respiratory: Airway is patent Respiratory effort is even, unlabored, Respiratory pattern is regular, symmetrical. Derm: Skin is pink, warm & dry. Vital Signs: 18:36 BP 158 / 70; Pulse 70; Resp 18; Temp 96.8(TE); Pulse Ox 95% on R/A; Weight 87.09 kg nb2 (R); Height 5 ft. 1 in. (154.94 cm) (R); Pain 0/10; 18:53 Pulse Ox 100% on 4 lpm NC; mdr 20:40 BP 149 / 67; Pulse 74; Resp 18; Temp 96.9(O); Pulse Ox 92% on 2 lpm NC; Pain 0/10; nn1 18:36 Body Mass Index 36.28 (87.09 kg, 154.94 cm) nb2 18:53 Pt. put on 4 lpm nasal cannula mdr Vitals: 18:36 Log In Time N/A - ambulance arrival. nb2 ED Course: 18:28 Patient visited by Josey Cai, Land Surveyor Assistant. lbd 18:28 Aiden Nieves MD is Private Physician. lbd 18:28 Patient moved to Waiting lbd 18:28 Patient moved to 9 lbd 18:32 Triage Initiated nr1 18:36 Placed in gown. Bed in low position. Call light in reach. Side rails up X2. Cardiac nb2 monitor on. Pulse ox on. NIBP on. 18:37 Patient visited by Radha Callejas. nb2 18:38 Patient visited by Radha Sifuentes RN. nr1 18:41 Patient visited by Radha Sifuentes,ROSEMARY. nr1 18:54 Patient visited by Jesus Kim PCA. mdr 18:57 [facility] ke 18:57 Patient visited by Remberto Silveira FNP. ke 18:57 Patient visited by Remberto Silveira FNP. ke 19:08 [facility] Payment Agreement was scanned into [employer] and attached to record. zo 19:23 Patient visited by Remberto Silveira FNP. ke 19:36 BNP Sent. nn1 19:36 CBC Sent. nn1 19:38 Inserted saline lock: 20 gauge in right antecubital area and blood collected. The nn1 patient tolerated the procedure well. 19:42 Chest, 2 View (pa\\E\\lat) Returned. EDMS 19:59 Patient visited by Perla Robin RN. nn1 20:18 Aiden Nieves MD is Referral Physician. ke 20:41 No procedures done that require assistance. nn1 20:42 The patient / caregiver is instructed regarding the plan of care and ED course. nn1 Administered Medications: 19:32 Drug: Albuterol-Ipratropium 3 ml [ipratropium-albuterol 0.5 mg-3 mg(2.5 mg base)/3 mL 6 nebulization soln (3 mL)] Route: Inhalation; 19:35 Drug: NS 0.9% 1000 ml [sodium chloride 0.9 % intravenous solution] Route: IV; Rate: 250 nn1 mL/hr; Site: right antecubital; 19:35 Drug: Solu-MEDROL 125 mg [Solu-Medrol 500 mg intravenous solution (125 mg)] Route: IVP; nn1 Site: right antecubital; 19:35 Drug: diphenhydrAMINE 50 mg [diphenhydramine 50 mg/mL injection solution (1 mL)] Route: nn1 IVP; Site: right antecubital; 19:35 Drug: Famotidine 20 mg [famotidine 10 mg/mL intravenous solution] Route: IVPB; Infused nn1 Over: 30 mins; Site: right antecubital; 20:16 Follow up: IV Status: Completed infusion srm 19:40 Drug: Albuterol 5 mg [albuterol sulfate 2.5 mg/0.5 mL solution for nebulization (1 mL)] jh6 Route: Nebulizer; RT: 19:32 Initial Med Neb Given as ordered Patient was instructed and evaluated on procedure. jh6 Respiratory: Airway is patent Respiratory effort is even, unlabored, Respiratory pattern is regular symmetrical, Breath sounds with crackles in left posterior lower lobe and right posterior lower lobe Breath sounds are diminished in left posterior upper lobe, right posterior upper lobe, left posterior lower lobe, right posterior middle lobe and right posterior lower lobe. Respiratory: Denies shortness of breath at this time. 19:40 Respiratory: Airway is patent Respiratory effort is even, unlabored, Respiratory jh6 pattern is regular symmetrical, Breath sounds with crackles in left posterior lower lobe and right posterior lower lobe Breath sounds are diminished in left posterior upper lobe, right posterior upper lobe, left posterior lower lobe, right posterior middle lobe and right posterior lower lobe Denies shortness of breath at this time. 19:47 Respiratory: Airway is patent Respiratory effort is even, unlabored, Respiratory jh6 pattern is regular symmetrical, Breath sounds with rhonchi in left posterior lower lobe, right posterior middle lobe and right posterior lower lobe Breath sounds are diminished in left posterior upper lobe, right posterior upper lobe, left posterior lower lobe, right posterior middle lobe and right posterior lower lobe. Order Results: Lab Order: CBC; SPEC'M 08/13/16 19:33 Test: WHITE BLOOD COUNT; Value: 8.3; Range: 4.0-10.0; Units: K/mm3; Status: F Test: RED BLOOD COUNT; Value: 3.44; Range: 4.00-5.40; Abnormal: Below low normal; Units: M/mm3; Status: F Test: HEMOGLOBIN; Value: 11.1; Range: 12.0-16.0; Units: g/dl; Status: F Test: HEMATOCRIT; Value: 35.9; Range: 36.0-47.0; Abnormal: Below low normal; Units: %; Status: F Test: MEAN CORPUSCULAR VOLUME; Value: 104.2; Range: 80.0-96.0; Abnormal: Above high normal; Units: fl; Status: F Test: MEAN CORPUSCULAR HEMOGLOBIN; Value: 32.1; Range: 27.0-33.0; Units: pg; Status: F Test: MEAN CORPUSCULAR HGB CONC; Value: 30.8; Range: 32.0-36.5; Abnormal: Below low normal; Units: g/dl; Status: F Test: RED CELL DISTRIBUTION WIDTH; Value: 17.3; Range: 11.5-14.5; Abnormal: Above high normal; Units: %; Status: F Test: PLATELET COUNT, AUTOMATED; Value: 118; Range: 150-450; Abnormal: Below low normal; Units: k/mm3; Status: F Lab Order: BNP; SPEC'M 08/13/16 19:33 Test: BRAIN NATRIURETIC PEPTIDE; Value: 249; Range: <100; Abnormal: Above high normal; Units: PG/ML; Status: F Radiology Order: Chest, 2 View (pa\\E\\lat) Test: Chest, 2 View (pa\\E\\lat) REASON FOR EXAMINATION: Shortness of Breath; PA and lateral chest:; ; Comparison is 08/12/2016.; ; Borderline cardiomegaly is again noted, unchanged.; ; There are no infiltrates or effusions. There are no masses. The velma,; mediastinum, and bony thorax are unremarkable.; ; Impression: Borderline cardiomegaly.; ; No acute cardiopulmonary findings.; ; No interval change.; ; ; Signed by; Scout Barclay MD 08/13/2016 07:21 P; Outcome: 20:19 Discharge ordered by Provider. dari 20:41 Discharge Assessment: Patient awake, alert and oriented x 3. No cognitive and/or nn1 functional deficits noted. Patient verbalized understanding of disposition instructions. patient administered narcotics - no. The following High Risk Discharge criteria are identified: None. Condition: good Condition: stable Condition: improved. No special radiology studies were completed. Property :Personal belongings accompany Pt. 20:42 Patient left the ED. nn1 Signatures: Dispatcher [employer] EDMS Josey Cai, Land Surveyor Assistant Unit lbd Jaqueline Menon RN RN Remberto Ortiz, CORRECTIONS CASEWORKER CORRECTIONS CASEWORKER Solange Seay Jacob jh6 Radha SifuentesRN RN nr1 Perla Robin RN RN nn1 Jesus Kim, PRACTICING UROLOGIST PRACTICING UROLOGIST mdr Radha Callejas nb2 SHANTED
--- NOTE | 2016-08-15 21:43 | EDDOCDS ---
Nurse's Notes [facility] Name: Caro Carnes Age: 60 yrs Sex: Female : 1955 Arrival Date: 08/13/2016 Time: 18:27 Bed 9 Private MD: Aiden Nieves Diagnosis: Allergic urticaria-allergic reaction Presentation: 08/13 18:29 Presenting complaint: EMS states: c/o shortness of breath with cough. Per patient nr1 "feels like throat closing with facial tingling." Started on azithromycin cefidinr yesterday for diagnosis of PNA. Adult Sepsis Screening: The patient does not have new or worsening altered mentation. Patient has a respiratory rate of greater than or equal to 22 (1 point). Systolic blood pressure is greater than 100. Patient has a qSOFA score of 1- Negative Sepsis Screen. Suicide/Homicide risk assessment- the patient denies having any suicidal and/or homicidal ideations and does not present with any other emotional, behavioral or mental health complaints. 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 Transition of care: patient was not received from another setting of care. 18:29 Acuity: MUNDO Level 3 nr1 18:29 Method Of Arrival: Ambulance nr1 Triage Assessment: 18:37 General: Appears in no apparent distress, obese, Behavior is cooperative. Pain: Denies nr1 pain. Pt Declines HIV testing. The patient is triaged at the bedside. See Assessment in Nurses Notes section of ED record. Cardiovascular: Rhythm is sinus rhythm No ectopy. Respiratory: Onset: The symptoms/episode began/occurred this morning, Airway is patent Respiratory effort is even, unlabored, Respiratory pattern is regular, symmetrical, Breath sounds with wheezes expiratory in right posterior lower lobe. Historical: - Allergies: tequin (mouth swells); - Home Meds: 1. amiodarone 200 mg Oral tab 1 tab once daily 2. aspirin 325 mg Oral tab 1 tab once daily 3. calcitriol 0.75 mcg oral cap three times a week at dialysis 4. Colace 100 mg oral cap 1 cap as needed 5. Crestor 20 mg Oral tab 1 tab nightly 6. cyclobenzaprine 5 mg Oral tab 1 tab 3 times per day as needed 7. diazepam 5 mg Oral tab 1 tab 2 times per day as needed 8. Epogen 3,000 unit/mL injection soln 3 times per wk at dialysis 9. hydrocodone-acetaminophen 5-325 mg Oral tab 1 tab every 12 hours as needed 10. Lantus 100 unit/mL Sub-Q soln 46 unit nightly 11. levothyroxine 75 mcg Oral cap 1 cap once daily 12. Lovaza 1 gram oral cap 2 caps 2 times per day 13. magnesium oxide 400 mg Oral tab 400 mg daily 14. metoprolol tartrate 100 mg Oral tab 1 tab 2 times per day 15. Nephro-Mirella oral tab 1 tab daily 16. omeprazole 40 mg Oral cpDR 1 cap once daily 17. Renvela 800 mg oral tab 3 tabs 3 times per day 18. Spiriva with HandiHaler 18 mcg Inhl CpDv 1 cap once daily 19. SPS 15 gram/60 mL Oral susp 60 mL once daily if told to take by dialysis - has not taken in some time 20. trazodone 100 mg Oral tab 1 tab nightly 21. Vitamin D Oral 21177 unit every 2 weeks 22. Zofran (as hydrochloride) 4 mg Oral tab 1 tabs every 8 hours as needed - PMHx: Diabetes - IDDM: controlled; GERD; Hypercholesterolemia; Hypertension; kidney failure; Renal Failure with Dialysis; - PSHx: none; - Social history: No barriers to communication noted, Smoking status: Patient states former smoker of tobacco. - Family history: No immediate family members are acutely ill. - : The pt / caregiver states he / she is not on anticoagulants. Home medication list is obtained from [employer] import data. - Exposure Risk Screening:: None identified. Screenin:41 Screening information is obtained from the patient. Fall risk: No risks identified. nn1 Assistance ADL's: requires no assistance with activities of daily living. Abuse/DV Screen: The patient / caregiver reports he/she is: not in a situation that causes fear, pain or injury. Nutritional screening: No deficits noted. Advance Directives: Currently, there is no health care proxy. home support is adequate. Assessment: 19:36 General: Appears in no apparent distress, comfortable, Behavior is appropriate for age, nn1 cooperative. Pain: Denies pain. Neurological: Level of Consciousness is awake, alert. Cardiovascular: Capillary refill < 3 seconds Heart tones S1 S2 present Reports shortness of breath. Respiratory: Airway is patent Respiratory effort is even, unlabored, Respiratory pattern is regular, symmetrical, Breath sounds are diminished bilaterally. Reports shortness of breath SOB began at approximately 1700, patient felt she could not catch her breath . States she feels like her throat is tight and that her tongue is swollen. Reports numbness all over. GI: Abdomen is obese, Denies nausea, vomiting. Derm: Skin is pink, warm & dry. normal, No rash noted. 19:38 General: Patient reports starting new antibiotic at 0800 this morning. Unsure if she nn1 has ever taken antibiotic before. . 19:57 General: Patient reports feeling hot all over. Patient states breathing has improved, nn1 denies tightness in her throat at this time. Fluids and famotidine infusing per order. Patient does not appear flushed, no rash or hives noted at this time. Provider notified of patients complaints. . 20:39 General: Appears in no apparent distress, comfortable, Behavior is appropriate for age, nn1 cooperative. General: Patient denies SOB at this time. Patient denies throat tightness. Patient reports symptoms improved at this time. Pain: Denies pain. Neurological: Level of Consciousness is awake, alert. Respiratory: Airway is patent Respiratory effort is even, unlabored, Respiratory pattern is regular, symmetrical. Derm: Skin is pink, warm & dry. Vital Signs: 18:36 BP 158 / 70; Pulse 70; Resp 18; Temp 96.8(TE); Pulse Ox 95% on R/A; Weight 87.09 kg nb2 (R); Height 5 ft. 1 in. (154.94 cm) (R); Pain 0/10; 18:53 Pulse Ox 100% on 4 lpm NC; mdr 20:40 BP 149 / 67; Pulse 74; Resp 18; Temp 96.9(O); Pulse Ox 92% on 2 lpm NC; Pain 0/10; nn1 18:36 Body Mass Index 36.28 (87.09 kg, 154.94 cm) nb2 18:53 Pt. put on 4 lpm nasal cannula mdr Vitals: 18:36 Log In Time N/A - ambulance arrival. nb2 ED Course: 18:28 Patient visited by Josey Cai, Academic Administrator. lbd 18:28 Aiden Nieves MD is Private Physician. lbd 18:28 Patient moved to Waiting lbd 18:28 Patient moved to 9 lbd 18:32 Triage Initiated nr1 18:36 Placed in gown. Bed in low position. Call light in reach. Side rails up X2. Cardiac nb2 monitor on. Pulse ox on. NIBP on. 18:37 Patient visited by Radha Callejas. nb2 18:38 Patient visited by Radha Sifuentes,ROSEMARY. nr1 18:41 Patient visited by Radha Sifuentes,ROSEMARY. nr1 18:54 Patient visited by Jesus Kim PCA. mdr 18:57 [facility]ve[facility] ke 18:57 Patient visited by Remberto Silveira FNP. ke 18:57 Patient visited by Remberto Silveira FNP. ke 19:08 [facility] Payment Agreement was scanned into [employer] and attached to record. zo 19:23 Patient visited by Remberto Silveira FNP. ke 19:36 BNP Sent. nn1 19:36 CBC Sent. nn1 19:38 Inserted saline lock: 20 gauge in right antecubital area and blood collected. The nn1 patient tolerated the procedure well. 19:42 Chest, 2 View (pa\\E\\lat) Returned. EDMS 19:59 Patient visited by Perla Robin RN. nn1 20:18 Aiden Nieves MD is Referral Physician. ke 20:41 No procedures done that require assistance. nn1 20:42 The patient / caregiver is instructed regarding the plan of care and ED course. nn1 08/14 10:40 T-Sheet-- Draft Copy was scanned into [employer] and attached to record. gb Administered Medications: 08/13 19:32 Drug: Albuterol-Ipratropium 3 ml [ipratropium-albuterol 0.5 mg-3 mg(2.5 mg base)/3 mL 6 nebulization soln (3 mL)] Route: Inhalation; 19:35 Drug: NS 0.9% 1000 ml [sodium chloride 0.9 % intravenous solution] Route: IV; Rate: 250 nn1 mL/hr; Site: right antecubital; 19:35 Drug: Solu-MEDROL 125 mg [Solu-Medrol 500 mg intravenous solution (125 mg)] Route: IVP; nn1 Site: right antecubital; 19:35 Drug: diphenhydrAMINE 50 mg [diphenhydramine 50 mg/mL injection solution (1 mL)] Route: nn1 IVP; Site: right antecubital; 19:35 Drug: Famotidine 20 mg [famotidine 10 mg/mL intravenous solution] Route: IVPB; Infused nn1 Over: 30 mins; Site: right antecubital; 20:16 Follow up: IV Status: Completed infusion srm 19:40 Drug: Albuterol 5 mg [albuterol sulfate 2.5 mg/0.5 mL solution for nebulization (1 mL)] jh6 Route: Nebulizer; RT: 19:32 Initial Med Neb Given as ordered Patient was instructed and evaluated on procedure. jh6 Respiratory: Airway is patent Respiratory effort is even, unlabored, Respiratory pattern is regular symmetrical, Breath sounds with crackles in left posterior lower lobe and right posterior lower lobe Breath sounds are diminished in left posterior upper lobe, right posterior upper lobe, left posterior lower lobe, right posterior middle lobe and right posterior lower lobe. Respiratory: Denies shortness of breath at this time. 19:40 Respiratory: Airway is patent Respiratory effort is even, unlabored, Respiratory jh6 pattern is regular symmetrical, Breath sounds with crackles in left posterior lower lobe and right posterior lower lobe Breath sounds are diminished in left posterior upper lobe, right posterior upper lobe, left posterior lower lobe, right posterior middle lobe and right posterior lower lobe Denies shortness of breath at this time. 19:47 Respiratory: Airway is patent Respiratory effort is even, unlabored, Respiratory jh6 pattern is regular symmetrical, Breath sounds with rhonchi in left posterior lower lobe, right posterior middle lobe and right posterior lower lobe Breath sounds are diminished in left posterior upper lobe, right posterior upper lobe, left posterior lower lobe, right posterior middle lobe and right posterior lower lobe. Order Results: Lab Order: CBC; SPEC'M 08/13/16 19:33 Test: WHITE BLOOD COUNT; Value: 8.3; Range: 4.0-10.0; Units: K/mm3; Status: F Test: RED BLOOD COUNT; Value: 3.44; Range: 4.00-5.40; Abnormal: Below low normal; Units: M/mm3; Status: F Test: HEMOGLOBIN; Value: 11.1; Range: 12.0-16.0; Units: g/dl; Status: F Test: HEMATOCRIT; Value: 35.9; Range: 36.0-47.0; Abnormal: Below low normal; Units: %; Status: F Test: MEAN CORPUSCULAR VOLUME; Value: 104.2; Range: 80.0-96.0; Abnormal: Above high normal; Units: fl; Status: F Test: MEAN CORPUSCULAR HEMOGLOBIN; Value: 32.1; Range: 27.0-33.0; Units: pg; Status: F Test: MEAN CORPUSCULAR HGB CONC; Value: 30.8; Range: 32.0-36.5; Abnormal: Below low normal; Units: g/dl; Status: F Test: RED CELL DISTRIBUTION WIDTH; Value: 17.3; Range: 11.5-14.5; Abnormal: Above high normal; Units: %; Status: F Test: PLATELET COUNT, AUTOMATED; Value: 118; Range: 150-450; Abnormal: Below low normal; Units: k/mm3; Status: F Lab Order: BNP; SPEC'M 08/13/16 19:33 Test: BRAIN NATRIURETIC PEPTIDE; Value: 249; Range: <100; Abnormal: Above high normal; Units: PG/ML; Status: F Radiology Order: Chest, 2 View (pa\\E\\lat) Test: Chest, 2 View (pa\\E\\lat) REASON FOR EXAMINATION: Shortness of Breath; PA and lateral chest:; ; Comparison is 08/12/2016.; ; Borderline cardiomegaly is again noted, unchanged.; ; There are no infiltrates or effusions. There are no masses. The velma,; mediastinum, and bony thorax are unremarkable.; ; Impression: Borderline cardiomegaly.; ; No acute cardiopulmonary findings.; ; No interval change.; ; ; Signed by; Scout Barclay MD 08/13/2016 07:21 P; Outcome: 20:19 Discharge ordered by Provider. ke 20:41 Discharge Assessment: Patient awake, alert and oriented x 3. No cognitive and/or nn1 functional deficits noted. Patient verbalized understanding of disposition instructions. patient administered narcotics - no. The following High Risk Discharge criteria are identified: None. Condition: good Condition: stable Condition: improved. No special radiology studies were completed. Property :Personal belongings accompany Pt. 20:42 Patient left the ED. nn1 Signatures: Dispatcher [employer] EDJosey Ag, Academic Administrator Unit lbd Jaqueline Menon RN RN srm Evelina Hendrix, Reg Reg gb Remberto Silveira, BUTCHER APPRENTICE BUTCHER APPRENTICE Solange Seay Jacob jh6 Radha Sifuentes,RN RN nr1 Perla Robin RN RN nn1 Jesus Kim, RELAY CHECKER RELAY CHECKER mdr Radha Callejas nb2 Chart Complete MTDD
--- NOTE | 2016-08-15 21:43 | EDDOCDS ---
Physician Documentation [facility] Name: Caro Carnes Age: 60 yrs Sex: Female : 1955 Arrival Date: 08/13/2016 Time: 18:27 Bed 9 Private MD: Aiden Nieves Disposition: 08/13/16 20:19 Discharged to Home/Self Care. Impression: Allergic urticaria - allergic reaction. - Condition is Stable. - Discharge Instructions: Allergies. - Medication Reconciliation, Local Pharmacy Hours form. - Follow up: Aiden Nieves MD; When: 1 - 2 days; Reason: Recheck today's complaints, Continuance of care. - Problem is an acute exacerbation. - Symptoms have improved. Historical: - Allergies: tequin (mouth swells); - Home Meds: 1. amiodarone 200 mg Oral tab 1 tab once daily 2. aspirin 325 mg Oral tab 1 tab once daily 3. calcitriol 0.75 mcg oral cap three times a week at dialysis 4. Colace 100 mg oral cap 1 cap as needed 5. Crestor 20 mg Oral tab 1 tab nightly 6. cyclobenzaprine 5 mg Oral tab 1 tab 3 times per day as needed 7. diazepam 5 mg Oral tab 1 tab 2 times per day as needed 8. Epogen 3,000 unit/mL injection soln 3 times per wk at dialysis 9. hydrocodone-acetaminophen 5-325 mg Oral tab 1 tab every 12 hours as needed 10. Lantus 100 unit/mL Sub-Q soln 46 unit nightly 11. levothyroxine 75 mcg Oral cap 1 cap once daily 12. Lovaza 1 gram oral cap 2 caps 2 times per day 13. magnesium oxide 400 mg Oral tab 400 mg daily 14. metoprolol tartrate 100 mg Oral tab 1 tab 2 times per day 15. Nephro-Mirella oral tab 1 tab daily 16. omeprazole 40 mg Oral cpDR 1 cap once daily 17. Renvela 800 mg oral tab 3 tabs 3 times per day 18. Spiriva with HandiHaler 18 mcg Inhl CpDv 1 cap once daily 19. SPS 15 gram/60 mL Oral susp 60 mL once daily if told to take by dialysis - has not taken in some time 20. trazodone 100 mg Oral tab 1 tab nightly 21. Vitamin D Oral 71759 unit every 2 weeks 22. Zofran (as hydrochloride) 4 mg Oral tab 1 tabs every 8 hours as needed - PMHx: Diabetes - IDDM: controlled; GERD; Hypercholesterolemia; Hypertension; kidney failure; Renal Failure with Dialysis; - PSHx: none; - Social history: No barriers to communication noted, Smoking status: Patient states former smoker of tobacco. - Family history: No immediate family members are acutely ill. - : The pt / caregiver states he / she is not on anticoagulants. Home medication list is obtained from [employer] import data. - Exposure Risk Screening:: None identified. Vital Signs: 08/13 18:36 BP 158 / 70; Pulse 70; Resp 18; Temp 96.8(TE); Pulse Ox 95% on R/A; Weight 87.09 kg / nb2 192 lbs (R); Height 5 ft. 1 in. (154.94 cm) (R); Pain 0/10; 18:53 Pulse Ox 100% on 4 lpm NC; mdr 20:40 BP 149 / 67; Pulse 74; Resp 18; Temp 96.9(O); Pulse Ox 92% on 2 lpm NC; Pain 0/10; nn1 18:36 Body Mass Index 36.28 (87.09 kg, 154.94 cm) nb2 18:53 Pt. put on 4 lpm nasal cannula mdr MDM: 19:04 IV Saline Lock ordered. ke 19:04 NS 0.9% 1000 ml IV at 250 mL/hr continuous ordered. ke 19:04 Solu-MEDROL 125 mg IVP once ordered. ke 19:04 diphenhydrAMINE 50 mg IVP once ordered. ke 19:04 Famotidine 20 mg IVPB once over 30 mins; dilute in 50mL of NS ordered. ke 19:04 Albuterol 5 mg Nebulizer once ordered. ke 19:04 Albuterol-Ipratropium 3 ml Inhalation once ordered. ke 19:04 Call Respiratory ordered. ke 19:05 CBC Ordered. EDMS 19:05 Call Respiratory complete. kb5 19:05 BNP Ordered. EDMS 19:05 Chest, 2 View (pa\E\lat) Ordered. EDMS 19:07 Financial registration complete. zo 19:08 [facility] Payment Agreement was scanned into [employer] and attached to record. zo 20:08 CBC Reviewed. ke 20:08 BNP Reviewed. ke 20:08 Chest, 2 View (pa\E\lat) Reviewed. dari 08/14 10:40 T-Sheet-- Draft Copy was scanned into [employer] and attached to record. gb Administered Medications: 08/13 19:32 Drug: Albuterol-Ipratropium 3 ml [ipratropium-albuterol 0.5 mg-3 mg(2.5 mg base)/3 mL jh6 nebulization soln (3 mL)] Route: Inhalation; 19:35 Drug: NS 0.9% 1000 ml [sodium chloride 0.9 % intravenous solution] Route: IV; Rate: 250 nn1 mL/hr; Site: right antecubital; 19:35 Drug: Solu-MEDROL 125 mg [Solu-Medrol 500 mg intravenous solution (125 mg)] Route: IVP; nn1 Site: right antecubital; 19:35 Drug: diphenhydrAMINE 50 mg [diphenhydramine 50 mg/mL injection solution (1 mL)] Route: nn1 IVP; Site: right antecubital; 19:35 Drug: Famotidine 20 mg [famotidine 10 mg/mL intravenous solution] Route: IVPB; Infused nn1 Over: 30 mins; Site: right antecubital; 20:16 Follow up: IV Status: Completed infusion srm 19:40 Drug: Albuterol 5 mg [albuterol sulfate 2.5 mg/0.5 mL solution for nebulization (1 mL)] 6 Route: Nebulizer; Signatures: Dispatcher Complete [employer] EDMS Evelina Hendrix, Reg Reg gb Jordana, Remberto, BUNDLE BREAKER BUNDLE BREAKER Solange Seay Kristopher, BACK PANEL PADDER BACK PANEL PADDER kb5 Radha Sifuentes RN RN nr1 Nunez, Nikkole, RN RN nn1 Jaqueline Menon RN, Jacob 6 The chart was reviewed and I authenticate all verbal orders and agree with the evaluation and treatment provided.Attachments: 19:08 [facility] Payment Agreement zo 08/14 10:40 T-Sheet-- Draft Copy gb Chart Complete MTDD
--- NOTE | 2016-08-15 21:43 | EDDOCDS ---
Physician Documentation [facility] Name: Caro Carnes Age: 60 yrs Sex: Female : 1955 Arrival Date: 08/13/2016 Time: 18:27 Bed 9 Private MD: Aiden Nieves Disposition: 08/13/16 20:19 Discharged to Home/Self Care. Impression: Allergic urticaria - allergic reaction. - Condition is Stable. - Discharge Instructions: Allergies. - Medication Reconciliation, Local Pharmacy Hours form. - Follow up: Aiden Nieves MD; When: 1 - 2 days; Reason: Recheck today's complaints, Continuance of care. - Problem is an acute exacerbation. - Symptoms have improved. Historical: - Allergies: tequin (mouth swells); - Home Meds: 1. amiodarone 200 mg Oral tab 1 tab once daily 2. aspirin 325 mg Oral tab 1 tab once daily 3. calcitriol 0.75 mcg oral cap three times a week at dialysis 4. Colace 100 mg oral cap 1 cap as needed 5. Crestor 20 mg Oral tab 1 tab nightly 6. cyclobenzaprine 5 mg Oral tab 1 tab 3 times per day as needed 7. diazepam 5 mg Oral tab 1 tab 2 times per day as needed 8. Epogen 3,000 unit/mL injection soln 3 times per wk at dialysis 9. hydrocodone-acetaminophen 5-325 mg Oral tab 1 tab every 12 hours as needed 10. Lantus 100 unit/mL Sub-Q soln 46 unit nightly 11. levothyroxine 75 mcg Oral cap 1 cap once daily 12. Lovaza 1 gram oral cap 2 caps 2 times per day 13. magnesium oxide 400 mg Oral tab 400 mg daily 14. metoprolol tartrate 100 mg Oral tab 1 tab 2 times per day 15. Nephro-Mirella oral tab 1 tab daily 16. omeprazole 40 mg Oral cpDR 1 cap once daily 17. Renvela 800 mg oral tab 3 tabs 3 times per day 18. Spiriva with HandiHaler 18 mcg Inhl CpDv 1 cap once daily 19. SPS 15 gram/60 mL Oral susp 60 mL once daily if told to take by dialysis - has not taken in some time 20. trazodone 100 mg Oral tab 1 tab nightly 21. Vitamin D Oral 25904 unit every 2 weeks 22. Zofran (as hydrochloride) 4 mg Oral tab 1 tabs every 8 hours as needed - PMHx: Diabetes - IDDM: controlled; GERD; Hypercholesterolemia; Hypertension; kidney failure; Renal Failure with Dialysis; - PSHx: none; - Social history: No barriers to communication noted, Smoking status: Patient states former smoker of tobacco. - Family history: No immediate family members are acutely ill. - : The pt / caregiver states he / she is not on anticoagulants. Home medication list is obtained from [employer] import data. - Exposure Risk Screening:: None identified. Vital Signs: 08/13 18:36 BP 158 / 70; Pulse 70; Resp 18; Temp 96.8(TE); Pulse Ox 95% on R/A; Weight 87.09 kg / nb2 192 lbs (R); Height 5 ft. 1 in. (154.94 cm) (R); Pain 0/10; 18:53 Pulse Ox 100% on 4 lpm NC; mdr 20:40 BP 149 / 67; Pulse 74; Resp 18; Temp 96.9(O); Pulse Ox 92% on 2 lpm NC; Pain 0/10; nn1 18:36 Body Mass Index 36.28 (87.09 kg, 154.94 cm) nb2 18:53 Pt. put on 4 lpm nasal cannula mdr MDM: 19:04 IV Saline Lock ordered. ke 19:04 NS 0.9% 1000 ml IV at 250 mL/hr continuous ordered. ke 19:04 Solu-MEDROL 125 mg IVP once ordered. ke 19:04 diphenhydrAMINE 50 mg IVP once ordered. ke 19:04 Famotidine 20 mg IVPB once over 30 mins; dilute in 50mL of NS ordered. ke 19:04 Albuterol 5 mg Nebulizer once ordered. ke 19:04 Albuterol-Ipratropium 3 ml Inhalation once ordered. ke 19:04 Call Respiratory ordered. ke 19:05 CBC Ordered. EDMS 19:05 Call Respiratory complete. kb5 19:05 BNP Ordered. EDMS 19:05 Chest, 2 View (pa\E\lat) Ordered. EDMS 19:07 Financial registration complete. zo 19:08 [facility] Payment Agreement was scanned into [employer] and attached to record. zo 20:08 CBC Reviewed. ke 20:08 BNP Reviewed. ke 20:08 Chest, 2 View (pa\E\lat) Reviewed. dari 08/14 10:40 T-Sheet-- Draft Copy was scanned into [employer] and attached to record. gb Administered Medications: 08/13 19:32 Drug: Albuterol-Ipratropium 3 ml [ipratropium-albuterol 0.5 mg-3 mg(2.5 mg base)/3 mL jh6 nebulization soln (3 mL)] Route: Inhalation; 19:35 Drug: NS 0.9% 1000 ml [sodium chloride 0.9 % intravenous solution] Route: IV; Rate: 250 nn1 mL/hr; Site: right antecubital; 19:35 Drug: Solu-MEDROL 125 mg [Solu-Medrol 500 mg intravenous solution (125 mg)] Route: IVP; nn1 Site: right antecubital; 19:35 Drug: diphenhydrAMINE 50 mg [diphenhydramine 50 mg/mL injection solution (1 mL)] Route: nn1 IVP; Site: right antecubital; 19:35 Drug: Famotidine 20 mg [famotidine 10 mg/mL intravenous solution] Route: IVPB; Infused nn1 Over: 30 mins; Site: right antecubital; 20:16 Follow up: IV Status: Completed infusion srm 19:40 Drug: Albuterol 5 mg [albuterol sulfate 2.5 mg/0.5 mL solution for nebulization (1 mL)] 6 Route: Nebulizer; Signatures: Dispatcher [employer] EDMS Evelina Hendrix, Reg Reg gb Jordana, Remberto, CHIEF LIBRARIAN WORK WITH BLIND CHIEF LIBRARIAN WORK WITH BLIND Solange Seay Kristopher, SALESPERSON HOUSEHOLD APPLIANCES SALESPERSON HOUSEHOLD APPLIANCES kb5 Radha Sifuentes RN RN nr1 Nunez, Nikkole, RN RN nn1 Jaqueline Menon RN, Jacob 6 The chart was reviewed and I authenticate all verbal orders and agree with the evaluation and treatment provided.Attachments: 19:08 [facility] Payment Agreement zo 08/14 10:40 T-Sheet-- Draft Copy gb Chart Complete MTDD
== END 2016-08-13 20:42 | disposition home or self-care (01) ==
LOC: M ED 18:27
DX: T78.40XA Allergy, unspecified, initial encounter (principal); R06.02 Shortness of breath; I12.0 Hypertensive chronic kidney disease with stage 5 chronic kidney disease or end stage renal disease; E11.9 Type 2 diabetes mellitus without complications; E78.00 Pure hypercholesterolemia, unspecified; N19 Unspecified kidney failure; Z99.2 Dependence on renal dialysis; Z88.1 Allergy status to other antibiotic agents; Z79.899 Other long term (current) drug therapy; Z79.4 Long term (current) use of insulin; Z79.82 Long term (current) use of aspirin
CPT/HCPCS: 36415; 71020; 83880; 85027; 94640; 96365; 96375; 99284; J1200; J2930

== ENCOUNTER 2016-09-23 12:11 | Inpatient (IN) | payer MEDICARE, MEDICAID ==
[~2016-09-23] VITALS: Ht 154.9 cm; Wt 87.0 kg
--- NOTE | 2016-09-23 13:50 | REP ---
CT Head without contrast HISTORY: Headache COMPARISON: 03/30/2016 There is no intraparenchymal hemorrhage, acute infarct, mass or midline shift. Calcification is present in the ependyma along the occipital horn of the right lateral ventricle. The ventricular system is normal in appearance. There is no extra cerebral collection. There is no fracture. The visualized sinuses are clear. IMPRESSION: There is no intracranial lesion. Signed by Arslan Duran MD 09/23/2016 01:41 P
--- NOTE | 2016-09-23 13:57 | REP ---
PORTABLE CHEST: A single AP view of the chest was performed. There is no acute infiltrate. There is mild bibasilar fibroatelectatic change. The cardiomediastinal silhouette is unchanged. IMPRESSION: No acute pulmonary disease. Signed by Scout King MD 09/23/2016 05:06 P
[2016-09-23 14:28] LABS: BASO % 0.8 % (0.0-1.0); EOS # 0.5 K/mm3 (0.0-0.50); EOS % 7.9 % (0.0-3.0); LARGE UNSTAINED CELL # 0.1 K/mm3 (0.0-0.4); LARGE UNSTAINED CELL % 1.7 % (0.0-4.0); LYMPH # 0.8 K/mm3 (1.5-4.5); LYMPH % 12.6 % (24.0-44.0); MEAN CORPUSCULAR HEMOGLOBIN 32.4 pg (27.0-33.0); MEAN CORPUSCULAR VOLUME 98.2 fl (80.0-96.0); MONO # 0.4 K/mm3 (0.0-0.8); MONO % 7.5 % (0.0-5.0); NEUTROPHILS # 4.1 K/mm3 (1.8-7.7); NEUTROPHILS % 69.5 % (36.0-66.0); PLATELET COUNT, AUTOMATED 164 k/mm3 (150-450); RED CELL DISTRIBUTION WIDTH 15.5 % (11.5-14.5); WHITE BLOOD COUNT 5.9 K/mm3 (4.0-10.0)
[2016-09-23 14:47] LABS: ALBUMIN 3.3 GM/DL (3.2-5.2); ALKALINE PHOSPHATASE 156 U/L (45-117); ALT/SGPT 17 U/L (12-78); ANION GAP 9 MEQ/L (8-16); AST/SGOT 20 U/L (15-37); BILIRUBIN,DIRECT < 0.1 MG/DL (0.0-0.2); BILIRUBIN,TOTAL 0.3 MG/DL (0.2-1.0); BLOOD UREA NITROGEN 10 MG/DL (7-18); CALCIUM LEVEL 8.7 MG/DL (8.8-10.2); CARBON DIOXIDE LEVEL 32 MEQ/L (21-32); CHLORIDE LEVEL 100 MEQ/L (98-107); GLOMERULAR FILTRATION RATE 11.2 (>45); GLUCOSE, FASTING 130 MG/DL (80-110); POTASSIUM SERUM 3.9 MEQ/L (3.5-5.1); SODIUM LEVEL 141 MEQ/L (136-145); TOTAL PROTEIN 7.4 GM/DL (6.4-8.2)
[2016-09-23] MEDS ORDERED: PERCOCET 5MG/325MG TAB PO ONE (16:15)
[2016-09-23] MEDS ORDERED: IPRATROPIUM 0.5MG/ALBUTEROL 2.5MG INH SOL UD 3ML (DUONEB)(J7620) NEB ONE (16:45)
[2016-09-23] MEDS ORDERED: RENATAB5 PO (18:31)
[2016-09-23] MEDS ORDERED: CINA30TA PO (18:31)
[2016-09-23] MEDS ORDERED: LIDO1CRE14 TOP (18:31)
[2016-09-23] MEDS ORDERED: ONDANSETRON 4MG/2ML VIAL (J2405) IV PRN (19:45)
[2016-09-23] MEDS ORDERED: ACETAMINOPHEN TAB 650MG DOSE (2X325MG) PO PRN (19:45)
[2016-09-23] MEDS ORDERED: DOCUSATE SODIUM 100 MG CAP PO PRN (20:00)
[2016-09-23] MEDS ORDERED: CYCLOBENZAPRINE 5MG TABLET PO PRN (20:00)
[2016-09-23] MEDS ORDERED: SOD POLYSTYRENE SULFONATE SUSP 15 GM/60 ML UD PO SCH (20:00)
[2016-09-23] MEDS ORDERED: GLUCOSE 4 GM CHEW TABLET PO PRN (22:00)
[2016-09-23] MEDS ORDERED: GLUCAGON FOR INJ 1 MG VIAL (J1610) SC PRN (22:00)
[2016-09-23] MEDS ORDERED: DEXTROSE 50% 50 ML SYRINGE IV PRN (22:00)
--- NOTE | 2016-09-23 22:22 | HPE ---
DATE OF ADMISSION: 09/23/2016 PRIMARY CARE PROVIDER: Dr. Nieves CHIEF COMPLAINT: Shortness of breath. SUMMARY OF HER PRESENTATION: This is a 60-year-old with end-stage renal disease on hemodialysis Thursday, , Thursday who felt very drained in dialysis today and experienced hypotension at the end of 3-1/2 hours. Was given beef bullion soup to drink and some fluid, and was able to get up and move around and went home. At home she felt short of breath. She had felt similarly with her Thursday dialysis. She felt short of breath at home and the ambulance came to assess her before she went to dialysis, gave her some oxygen and then went via cab to dialysis and she felt better after that. She thinks that maybe she has been drinking too much at home, particularly yesterday. She developed a dry cough. Did have a headache this morning which is new. Has not had any fevers and normal appetite. PAST MEDICAL HISTORY: Notable for: End-stage renal disease, on hemodialysis. Insulin dependent diabetes. Atrial flutter related to history of intracranial bleed. Hypertensive heart disease. Hyperparathyroidism. Anxiety. Obesity. Obstructive sleep apnea (PRABHJOT), not using CPAP. Chronic obstructive pulmonary disease (COPD). Hypothyroidism. Hyperlipidemia. Gastroesophageal reflux disease (GERD). PAST SURGICAL HISTORY: Notable for: section times two. Lumbar discectomy. Breast biopsy. Hysterectomy. Nasal cautery. Ventriculostomy related to intracranial hemorrhage, related to the use of Coumadin. SOCIAL HISTORY: She does not use tobacco, does not use alcohol. FAMILY HISTORY: Mother with a stroke, father from COPD. REVIEW OF SYSTEMS: Notable for frontal headache that started this morning. It is pressure type on both sides. She points to her frontal sinuses. No sore throat. No runny nose. She has been short of breath. She has felt a cough which is not productive of sputum. No abdominal pain. No change in her bowel habits, otherwise unremarkable. PHYSICAL EXAMINATION: Temperature is 98.4, pulse 96, respiratory rate 20. Blood pressure on my exam was 98/60. Awake, alert and appropriately interactive. Pleasantly conversant. No acute distress. Head is normocephalic, sinuses are nontender to palpation including her frontal sinuses. Pupils equal, round and reactive. Anicteric. Not injected. Nasal septum is midline. Mucous membranes moist. Neck is supple, thick. Breathing is symmetrical. I to E ratio is 1:3. A couple of scattered polyphonic wheezes on the right posteriorly. Heart is distant sounding, normal S1, S2. Distal pulse 2+. Capillary refill is less than 2 seconds. Abdomen is soft, doughy, nontender. There is no significant lower extremity edema. White cell count 5.9, hemoglobin 0.4. Platelets 164, BUN 10, creatinine 4.3. Alkaline phosphatase is 156. Lactic acid 1.2. Blood cultures pending. Influenza swab is pending. Chest x-ray shows no acute disease. Head CT shows no intracranial lesion. ASSESSMENT: This is a 60-year-old who was found to be hypotensive during dialysis today and the patient will be admitted for further workup and observation. PLAN: 1. Hypotension. This appears to have resolved with the use of IV fluid. Will continue to monitor her clinically and will consult Dr. Bond should the patient require more fluid or stay in the hospital long enough to require dialysis. 2. The patient has a dry cough, headache. In the setting of hypotension, it is possible she is developing an infectious etiology to her presentation. Will send a respiratory panel as there is a great deal of viral illness currently affecting the community. Blood cultures have already been sent which seems stanley given the patient is on chronic dialysis. No role for antibiotics yet at this time. 3. The patient has diabetes. Will be treated with sliding scale insulin. 4. The patient has history of atrial flutter. EKG would appear to be possible atrial flutter, although there are elements that suggest a sinus rhythm as well. Either way she is not anticoagulated and her heart rate is controlled during my exam. 5. The patient has PRABHJOT. Not using CPAP. 6. The patient has history of COPD. Would likely benefit from a short course of steroids. Aggressive pulmonary toilet and an Acapella device. 7. The patient has hypothyroidism. 8. Deep venous thrombosis (DVT) prophylaxis. The patient has been signed out to Dr. Sparrow.
[2016-09-23] MEDS ORDERED: NS 1,000 ML IV SCH (22:45)
[2016-09-23 23:15] VITALS: BP 133/70
[2016-09-23] MEDS: HumaLOG INSULIN (NovoLOG) PER UNIT SC SCH (23:18)
[2016-09-24] MEDS: ALBUTEROL SULFATE 2.5 MG/0.5 ML INH NEB SOLN INH PRN ×2 (00:02→13:48)
[2016-09-24] MEDS: METOPROLOL TARTRATE 100 MG TAB PO SCH ×3 (00:15→20:53)
[2016-09-24] MEDS: LEVEMIR (INSULIN DETEMIR) 1 UNITS/0.01ML SC SCH ×2 (00:16→20:52)
[2016-09-24] MEDS ORDERED: LEVEMIR (INSULIN DETEMIR) 1 UNITS/0.01ML SC ONE (00:30)
[2016-09-24] MEDS: predniSONE 20 MG TAB PO SCH ×3 (00:37→20:52)
[2016-09-24] MEDS: OMEGA-3 1050MG CAPSULE PO SCH ×3 (00:37→20:51)
[2016-09-24] MEDS: ROSUVASTATIN 10 MG TAB (CRESTOR) PO SCH ×2 (00:37→20:52)
[2016-09-24 03:00] VITALS: BP 130/63
[2016-09-24 06:00] VITALS: BP 113/56
[2016-09-24 06:10] LABS: BASO % 0.4 % (0.0-1.0); EOS # 0.3 K/mm3 (0.0-0.50); EOS % 4.3 % (0.0-3.0); LARGE UNSTAINED CELL # 0.1 K/mm3 (0.0-0.4); LARGE UNSTAINED CELL % 1.4 % (0.0-4.0); LYMPH # 0.5 K/mm3 (1.5-4.5); LYMPH % 8.1 % (24.0-44.0); MEAN CORPUSCULAR HEMOGLOBIN 31.2 pg (27.0-33.0); MEAN CORPUSCULAR HGB CONC 31.9 g/dl (32.0-36.5); MEAN CORPUSCULAR VOLUME 97.9 fl (80.0-96.0); MONO # 0.2 K/mm3 (0.0-0.8); MONO % 2.9 % (0.0-5.0); NEUTROPHILS # 4.9 K/mm3 (1.8-7.7); NEUTROPHILS % 82.9 % (36.0-66.0); PLATELET COUNT, AUTOMATED 129 k/mm3 (150-450); RED CELL DISTRIBUTION WIDTH 15.7 % (11.5-14.5)
[2016-09-24] MEDS: LEVOTHYROXINE 0.075 MG TAB (75 MCG) PO SCH (06:14)
[2016-09-24 06:27] LABS: ALBUMIN 2.9 GM/DL (3.2-5.2); CALCIUM LEVEL 8.8 MG/DL (8.8-10.2); CREATININE FOR GFR 5.82 MG/DL (0.55-1.02); GLOMERULAR FILTRATION RATE 7.9 (>45); PHOSPHORUS LEVEL 3.3 MG/DL (2.5-4.9); POTASSIUM SERUM 4.5 MEQ/L (3.5-5.1)
[2016-09-24] MEDS: ALBUTEROL SULFATE 2.5 MG/0.5 ML INH NEB SOLN INH SCH ×4 (07:09→19:33)
[2016-09-24] MEDS: TIOTROPIUM INHALER/CAPSULE (SPIRIVA) INH SCH (07:09)
[2016-09-24] MEDS: HumaLOG INSULIN (NovoLOG) PER UNIT SC SCH ×4 (08:30→20:46)
[2016-09-24] MEDS: (RENVELA) SEVELAMER **CARBONate** 800 MG TAB PO SCH ×3 (08:31→17:24)
[2016-09-24] MEDS: ASPIRIN 325 MG TAB PO SCH (08:31)
[2016-09-24] MEDS: AMIODARONE 200 MG TAB (PACERONE) PO SCH (08:31)
[2016-09-24] MEDS: OMEPRAZOLE 20 MG CAP PO SCH (08:31)
[2016-09-24] MEDS: MAGNESIUM OXIDE 400 MG TAB (MAG-OX) PO SCH (08:32)
[2016-09-24] MEDS: NORCO, ANEXSIA 5/325MG TABLET (HYDROcodone/ACETAMINOPHEN) PO PRN (08:35)
--- NOTE | 2016-09-24 10:34 | ECGEPIP ---
Stationary ECG Study [facility] - ED Test Date: 2016-09-23 Pat Name: JOSE ROGERS Department: Room: - Gender: F Ep Technologist: SARAH : 1955 Requested By: LATRICE Plascencia Order Number: [id number] Reading MD: Hardik Velasquez Measurements Intervals [place] Rate: 91 P: OK: 0 QRS: 24 QRSD: 94 T: 59 QT: 403 QTc: 498 Interpretive Statements ATRIAL FIBRILLATION NONSPECIFIC ST & T-WAVE ABNORMALITY RHYTHM CHANGE COMPARED TO 07/24/16 Electronically Signed On 09-24-2016 10:34:25 EST by Hardik Velasquez
--- NOTE | 2016-09-24 11:19 | IPNPDOC ---
Subjective Date Seen The patient was seen on 09/24/16. Subjective Chief Complaint/HPI The patient is a 60-year-old female admitted with a reason for visit of Shortness Of Breath. Events since last encounter Pt states she is feeling better today. Still with some SOB but improved. BPs are better. Denies CP. Constitutional: Denies: Chills, Fever Pulmonary: Reports: Dyspnea Cardiovascular: Denies: Chest Pain, Palpitations Gastrointestinal: Denies: Abdominal Pain, Nausea, Vomiting Objective Physical Examination General Exam: Positive: Alert, No Acute Distress ENT Exam: Positive: Atraumatic Neck Exam: Positive: Supple, Negative: JVD Chest Exam: Positive: Clear to auscultation Heart Exam: Positive: Irregular Rhythm, Rate Normal Abdomen Exam: Positive: Normal bowel sounds, Soft, Negative: Tenderness Extremity Exam: Negative: Edema Assessment /Plan Problems (1) Hypotension Status: Acute Problem Specific Plan: Consult Specialist, Monitor Clinically, Repeat Labs Problem Text: Dr Bond consulted. Hypotension after HD yesterday. Hypotension improved with IVF. Pt back on her home dose of Lopressor 100 mg BID and Amiodarone. Dr Bond advises monitoring and plans on HD tomorrow. 09/24 JFW: hope to dc 09/25 (2) Shortness of breath Status: Acute Problem Specific Plan: Consult Specialist, Monitor Clinically, Repeat Labs Problem Text: Dr Bond consulted. Hypotension and SOB after HD yesterday. Improving. (3) ESRD (end stage renal disease) on dialysis Status: Chronic Problem Specific Plan: Consult Specialist, Monitor Clinically, Repeat Labs Problem Text: Dr Bond consulted and advises monitoring and plans on HD tomorrow. (4) Atrial flutter Status: Chronic Problem Specific Plan: Monitor Clinically, Repeat Labs Problem Text: Recheck EKG. On Lopressor 100 mg BID and Amiodarone 200 mg daily. (5) Diabetes mellitus Status: Chronic Problem Specific Plan: Monitor Clinically Problem Text: On SSI and Levemir 23 units daily. (6) PRABHJOT (obstructive sleep apnea) Status: Chronic (7) HTN (hypertension) Status: Chronic Problem Specific Plan: Monitor Clinically Problem Text: Hypotension after HD yesterday. Hypotension improved with IVF. Pt back on her home dose of Lopressor 100 mg BID and Amiodarone. Dr Bond advises monitoring and plans on HD tomorrow. (8) Coronavirus infection Status: Acute Problem Text: JFW 09/24: isolated from resp panel. Symptomatic tx onmly Plan/VTE VTE Prophylaxis Ordered?: No VS, I&O, 24H, Fishbone Vital Signs/I&O Vital Signs Date Time Temp Pulse Resp B/P Pulse Ox O2 Delivery O2 Flow Rate FiO2 09/24/16 09:30 18 Nasal Cannula 1.0 09/24/16 08:32 117 113/64 09/24/16 06:00 97.4 96 I&O- Last 24 Hours up to 6 AM 09/24/16 06:00 Intake Total 100 ml Output Total 100 ml Balance 0 ml Laboratory Data 24H LABS Laboratory Tests 2 09/23/16 14:09: Aspartate Amino Transf (AST/SGOT) 20, Alanine Aminotransferase (ALT/SGPT) 17, Alkaline Phosphatase 156H, Total Bilirubin 0.3, Direct Bilirubin < 0.1, Albumin 3.3, Albumin/Globulin Ratio 0.80L, Anion Gap 9, B-Type Natriuretic Peptide 495H , White Blood Count 5.9, Red Blood Count 3.51L, Hemoglobin 11.4L, Hematocrit 34.5L, Mean Corpuscular Volume 98.2H, Mean Corpuscular Hemoglobin 32.4, Mean Corpuscular Hemoglobin Concent 33.0, Red Cell Distribution Width 15.5H, Platelet Count 164, Neutrophils (%) (Auto) 69.5H, Lymphocytes (%) (Auto) 12.6L, Monocytes (%) (Auto) 7.5H, Eosinophils (%) (Auto) 7.9H, Basophils (%) (Auto) 0.8 , Neutrophils # (Auto) 4.1, Lymphocytes # (Auto) 0.8L, Monocytes # (Auto) 0.4, Eosinophils # (Auto) 0.5, Basophils # (Auto) 0.0, Calcium Level 8.7L, Glomerular Filtration Rate 11.2L, Lactic Acid (Sepsis) 1.2, Large Unclassified Cells # 0.1, Large Unclassified Cells % 1.7, Total Protein 7.4 09/23/16 23:16: Bedside Glucose (Misc Panel) 136H 09/24/16 05:20: Albumin 2.9L, Anion Gap 9, White Blood Count 6.0, Red Blood Count 3.17L, Hemoglobin 9.9L, Hematocrit 31.1L, Mean Corpuscular Volume 97.9H, Mean Corpuscular Hemoglobin 31.2, Mean Corpuscular Hemoglobin Concent 31.9L, Red Cell Distribution Width 15.7H, Platelet Count 129L, Neutrophils (%) (Auto) 82.9H , Lymphocytes (%) (Auto) 8.1L, Monocytes (%) (Auto) 2.9, Eosinophils (%) (Auto) 4.3H, Basophils (%) (Auto) 0.4, Neutrophils # (Auto) 4.9, Lymphocytes # (Auto) 0.5L, Monocytes # (Auto) 0.2, Eosinophils # (Auto) 0.3, Basophils # (Auto) 0.0, Calcium Level 8.8, Glomerular Filtration Rate 7.9L, Large Unclassified Cells # 0.1, Large Unclassified Cells % 1.4, Blood Urea Nitrogen 19#H, Creatinine 5.82H , Sodium Level 139, Potassium Level 4.5, Chloride Level 101, Carbon Dioxide Level 29, Phosphorus Level 3.3 CBC/BMP Laboratory Tests 09/23/16 14:09 Red Blood Count 3.51 L, Mean Corpuscular Volume 98.2 H, Mean Corpuscular Hemoglobin 32.4, Mean Corpuscular Hemoglobin Concent 33.0, Red Cell Distribution Width 15.5 H, Neutrophils (%) (Auto) 69.5 H, Lymphocytes (%) (Auto ) 12.6 L, Monocytes (%) (Auto) 7.5 H, Eosinophils (%) (Auto) 7.9 H, Basophils (% ) (Auto) 0.8, Neutrophils # (Auto) 4.1, Lymphocytes # (Auto) 0.8 L, Monocytes # (Auto) 0.4, Eosinophils # (Auto) 0.5, Basophils # (Auto) 0.0 09/24/16 05:20 Red Blood Count 3.17 L, Mean Corpuscular Volume 97.9 H, Mean Corpuscular Hemoglobin 31.2, Mean Corpuscular Hemoglobin Concent 31.9 L, Red Cell Distribution Width 15.7 H, Neutrophils (%) (Auto) 82.9 H, Lymphocytes (%) (Auto ) 8.1 L, Monocytes (%) (Auto) 2.9, Eosinophils (%) (Auto) 4.3 H, Basophils (%) ( Auto) 0.4, Neutrophils # (Auto) 4.9, Lymphocytes # (Auto) 0.5 L, Monocytes # ( Auto) 0.2, Eosinophils # (Auto) 0.3, Basophils # (Auto) 0.0, Anion Gap 9 Microbiology Microbiology 09/23/16 Blood Culture, Received Pending 09/23/16 Blood Culture, Received Pending 09/23/16 Influenza Virus Type A Antigen - Final, Complete 09/23/16 Influenza Virus Type B Antigen - Final, Complete Rob Connor RPA-C Sep 24, 2016 11:19 Cullen Sparrow MD Sep 24, 2016 15:16
[2016-09-24 14:00] VITALS: BP 119/62
--- NOTE | 2016-09-24 18:35 | CR ---
DATE OF CONSULTATION: 09/24/2016 CONSULTATION REPORT FOR: Cullen Sparrow MD REASON FOR CONSULTATION: Assist in the management of dyspnea and end-stage renal disease. HISTORY OF PRESENT ILLNESS: Mrs. Carnes is a 60-year-old female with known history of diabetes, hypertension, paroxysmal atrial flutter and fibrillation, end-stage renal disease, prior history of intracranial bleed, obesity, obstructive sleep apnea, and chronic obstructive pulmonary disease (COPD). She regularly gets dialysis on Thursday, and Thursday schedule. She was hypotensive during dialysis yesterday and did receive some normal saline at the end. However, she left only 0.3 kg over her dry weight. At home, she felt short of breath and weak. Due to which, she was brought to the emergency room. Her blood pressure was in the 70s on arrival to the emergency room. She was given some normal saline bolus and did not feel well despite slight improvement in her blood pressure. She was admitted last evening and a nephrology consultation requested this morning. PAST MEDICAL AND SURGICAL HISTORY: 1. Longstanding insulin-dependent diabetes. 2. History of atrial flutter. 3. Prior history of intracranial bleed. 4. Hypertensive heart disease. 5. History of anxiety. 6. Obesity. 7. Obstructive sleep apnea. 8. Chronic obstructive pulmonary disease (COPD). 9. Hypothyroidism. 10. Hyperlipidemia. 11. Gastroesophageal reflux disease. 12. Anemia of chronic kidney disease. 13. Secondary hyperparathyroidism. PAST SURGICAL HISTORY: Significant for: 1. (C) section. 2. Lumbar disc surgery. 3. Breast biopsy. 4. Hysterectomy. 5. Nasal cauterization for bleeding. PERSONAL AND SOCIAL HISTORY: The patient is and lives with her family. She does not smoke or drink. FAMILY HISTORY: Negative for kidney failure. Mother with stroke and father with chronic obstructive pulmonary disease (COPD). REVIEW OF SYSTEMS: She denies any fever or chills. Ears, nose and throat are unremarkable. Cardiovascular system is significant for history of atrial flutter. She was short of breath yesterday, due to which she came to the emergency room but denies any chest pain. Respiratory system is negative for hemoptysis, cough or pleuritic-type of chest pain. Gastrointestinal (GI) system is negative for nausea, vomiting or diarrhea. Genitourinary () system is negative for dysuria or hematuria. Endocrine system is significant for hypothyroidism, diabetes and secondary hyperparathyroidism. Hematological system is negative for anticoagulation due to prior history of intracranial bleed. She has a history of anemia related to end-stage renal disease. Neurological system is significant for headaches but denies any stroke. Psychosocial system is significant for anxiety and depression. Other systems are reviewed and are unremarkable. PHYSICAL EXAMINATION: At the time of my visit, the patient is sitting at the edge of bed. Temperature is 97.4 degrees Fahrenheit, heart rate 87 per minute earlier and right now about 100 per minute. Blood pressure 113/56 mmHg and oxygen saturation 96% on two liters oxygen. Head is atraumatic. Ears, nose and throat are unremarkable. Pupils are reactive to light. Sclera is anicteric. Neck is supple and without jugular venous distention (JVD) or thyroid enlargement. Heart sounds are tachycardiac and irregular. Lungs sound clear to auscultation bilaterally. Abdomen is soft and nontender and without a palpable organomegaly. Bowel sounds are normal. Extremities have no cyanosis or clubbing. Skin has no rash or ulcers. Left arm arteriovenous (AV) fistula is patent. Neurologically, she is awake and alert and at her baseline mentation. There is no focal neurological deficit. LABORATORY DATA: WBC count is 6.6, hemoglobin 9.9 and hematocrit 31.1. Sodium 139 and potassium 4.5. BUN 19 and creatinine 5.82. A BNP level on admission was 495. Chest x-ray done last evening is negative for any acute infiltrate or effusion. She also had a head CT scan done which showed no intracranial lesions. PROBLEMS: 1. Shortness of breath. Probably related to atrial flutter. At this point, she seems to be relatively asymptomatic though she is not feeling very well. Dyspnea has improved but she is using oxygen at about 2-3 liters per minute. Her volume status seems very well-compensated and she left only 0.3 kg over her dry weight. She has no peripheral edema, no distended neck veins and no pulmonary rales. At this point, there is no emergent need for dialysis today and we will schedule her next hemodialysis for tomorrow. 2. End-stage renal disease. The patient did complete her dialysis treatment yesterday prior to admission. Her next dialysis will be scheduled for tomorrow. 3. Anemia. Her anemia is mild and stable. No intervention is needed on an urgent basis. We will recheck her complete blood count (CBC) tomorrow. 4. hypotension. Blood pressure has also improved today and tachycardia is controlled with amiodarone and beta eddi. I suggest to continue with all her chronic medications at present. We probably could consider cutting down her metoprolol dose if her heart rate responds better to amiodarone. 5. History of hyperparathyroidism. This is being managed with hemodialysis. At present, we will hold off on ordering parathyroid as this will be checked as an outpatient in dialysis clinic. I thank you for involving me in the care of Mrs. Carnes. I will follow her along with you.
[2016-09-24] MEDS: diazePAM 5 MG TAB PO PRN (20:57)
--- NOTE | 2016-09-24 21:28 | ECGEPIP ---
Stationary ECG Study [facility] Test Date: 2016-09-24 Pat Name: JOSE ROGERS Department: Room: [place] [address] Gender: F Roustabout Head: OTF : 1955 Requested By: Rob Spears RPA-C Order Number: [id number] Reading MD: David Castrejon Measurements Intervals [place] Rate: 92 P: [place]: 0 QRS: 27 QRSD: 97 T: 13 QT: 403 QTc: 499 Interpretive Statements ATRIAL FIBRILLATION Prolonged QTc Nonspecific ST-T wave abnormalities Electronically Signed On 09-24-2016 21:28:17 EST by David Castrejon
[2016-09-24 22:00] VITALS: BP 132/72
[2016-09-25] MEDS: OMEPRAZOLE 20 MG CAP PO SCH (05:53)
[2016-09-25] MEDS: MAGNESIUM OXIDE 400 MG TAB (MAG-OX) PO SCH (05:54)
[2016-09-25] MEDS: LEVOTHYROXINE 0.075 MG TAB (75 MCG) PO SCH (05:54)
[2016-09-25] MEDS: OMEGA-3 1050MG CAPSULE PO SCH ×2 (05:54→20:38)
[2016-09-25] MEDS: ASPIRIN 325 MG TAB PO SCH (05:54)
[2016-09-25] MEDS: AMIODARONE 200 MG TAB (PACERONE) PO SCH (05:54)
[2016-09-25] MEDS: METOPROLOL TARTRATE 100 MG TAB PO SCH ×2 (05:55→20:39)
[2016-09-25] MEDS: predniSONE 20 MG TAB PO SCH ×2 (05:55→20:39)
[2016-09-25 06:00] VITALS: BP 146/70
[2016-09-25 06:45] LABS: BASO % 0.1 % (0.0-1.0); EOS % 0.5 % (0.0-3.0); LARGE UNSTAINED CELL # 0.1 K/mm3 (0.0-0.4); LARGE UNSTAINED CELL % 1.1 % (0.0-4.0); LYMPH # 0.6 K/mm3 (1.5-4.5); MEAN CORPUSCULAR HEMOGLOBIN 30.6 pg (27.0-33.0); MEAN CORPUSCULAR HGB CONC 31.6 g/dl (32.0-36.5); MEAN CORPUSCULAR VOLUME 96.7 fl (80.0-96.0); MONO # 0.5 K/mm3 (0.0-0.8); MONO % 4.8 % (0.0-5.0); NEUTROPHILS # 8.3 K/mm3 (1.8-7.7); NEUTROPHILS % 87.4 % (36.0-66.0); PLATELET COUNT, AUTOMATED 184 k/mm3 (150-450); RED CELL DISTRIBUTION WIDTH 15.7 % (11.5-14.5); WHITE BLOOD COUNT 9.4 K/mm3 (4.0-10.0)
[2016-09-25 06:56] LABS: ALBUMIN 2.9 GM/DL (3.2-5.2); CREATININE FOR GFR 7.41 MG/DL (0.55-1.02); PHOSPHORUS LEVEL 2.8 MG/DL (2.5-4.9); POTASSIUM SERUM 4.9 MEQ/L (3.5-5.1)
[2016-09-25] MEDS: ALBUTEROL SULFATE 2.5 MG/0.5 ML INH NEB SOLN INH SCH ×4 (07:08→19:39)
[2016-09-25] MEDS: TIOTROPIUM INHALER/CAPSULE (SPIRIVA) INH SCH (07:08)
[2016-09-25] MEDS: HumaLOG INSULIN (NovoLOG) PER UNIT SC SCH ×4 (08:00→20:41)
[2016-09-25] MEDS: (RENVELA) SEVELAMER **CARBONate** 800 MG TAB PO SCH ×3 (08:00→17:31)
[2016-09-25] MEDS ORDERED: CALCITRIOL 0.25 MCG CAP (S0169) PO SCH (09:00)
[2016-09-25] MEDS ORDERED: HEPARIN 1,000 UNITS/ML 10ML VIAL (FOR RADIOLOGY& DIALYSIS ONLY) IV ONE (11:15)
--- NOTE | 2016-09-25 12:00 | IPNPDOC ---
Subjective Date Seen The patient was seen on 09/25/16. Subjective Chief Complaint/HPI The patient is a 60-year-old female admitted with a reason for visit of Shortness Of Breath. Events since last encounter Pt states she is feeling better. States less SOB. Denies CP, Abd pain. Constitutional: Denies: Chills, Fever Pulmonary: Reports: Dyspnea Cardiovascular: Denies: Chest Pain Gastrointestinal: Denies: Abdominal Pain, Nausea, Vomiting Objective Physical Examination General Exam: Positive: Alert, No Acute Distress ENT Exam: Positive: Atraumatic Neck Exam: Positive: Supple, Negative: JVD Chest Exam: Positive: Clear to auscultation Heart Exam: Positive: Irregular Rhythm, Rate Normal Abdomen Exam: Positive: Normal bowel sounds, Soft, Negative: Tenderness Extremity Exam: Negative: Edema Assessment /Plan Problems (1) Hypotension Status: Acute Problem Specific Plan: Consult Specialist, Monitor Clinically, Repeat Labs Problem Text: 09/25 - Dr Bond following. Getting HD currently, therefore cannot D/C today. Probable D/C tomorrow. 09/24 - Dr Bond consulted. Hypotension after HD yesterday. Hypotension improved with IVF. Pt back on her home dose of Lopressor 100 mg BID and Amiodarone. Dr Bond advises monitoring and plans on HD tomorrow. 09/24 JFW: hope to dc 09/25 (2) Shortness of breath Status: Acute Problem Specific Plan: Consult Specialist, Monitor Clinically, Repeat Labs Problem Text: 09/25 - Dr Bond following. BP and HR improved. 09/24 - Dr Bond consulted. Hypotension and SOB after HD yesterday. Improving. (3) ESRD (end stage renal disease) on dialysis Status: Chronic Problem Specific Plan: Consult Specialist, Monitor Clinically, Repeat Labs Problem Text: 09/25 - Dr Bond following. Pt currentlt in HD. 09/24 - Dr Bond consulted and advises monitoring and plans on HD tomorrow. (4) Atrial flutter Status: Chronic Problem Specific Plan: Monitor Clinically, Repeat Labs Problem Text: 09/24 - Recheck EKG. On Lopressor 100 mg BID and Amiodarone 200 mg daily. (5) Diabetes mellitus Status: Chronic Problem Specific Plan: Monitor Clinically Problem Text: On SSI and Levemir 23 units daily. (6) PRABHJOT (obstructive sleep apnea) Status: Chronic (7) HTN (hypertension) Status: Chronic Problem Specific Plan: Monitor Clinically Problem Text: 09/25 - Pt back on her home dose of Lopressor 100 mg BID and Amiodarone. 09/24 - Hypotension after HD yesterday. Hypotension improved with IVF. Pt back on her home dose of Lopressor 100 mg BID and Amiodarone. Dr Bond advises monitoring and plans on HD tomorrow. (8) Coronavirus infection Status: Acute Problem Text: JFW 09/24: isolated from resp panel. Symptomatic tx onmly Plan/VTE VTE Prophylaxis Ordered?: No VS, I&O, 24H, Fishbone Vital Signs/I&O Vital Signs Date Time Temp Pulse Resp B/P Pulse Ox O2 Delivery O2 Flow Rate FiO2 09/25/16 08:00 Room Air 09/25/16 06:00 96.5 88 17 146/70 97 2.0 I&O- Last 24 Hours up to 6 AM 09/25/16 06:00 Intake Total 1460 ml Output Total 550 ml Balance 910 ml Laboratory Data 24H LABS Laboratory Tests 2 09/24/16 16:50: Bedside Glucose (Misc Panel) 185H 09/24/16 20:24: Bedside Glucose (Misc Panel) 217H 09/25/16 06:28: Albumin 2.9L, Blood Urea Nitrogen 40#H, Creatinine 7.41H, Sodium Level 138, Potassium Level 4.9, Chloride Level 98, Carbon Dioxide Level 28, Anion Gap 12, White Blood Count 9.4, Red Blood Count 3.33L, Hemoglobin 10.2L, Hematocrit 32.2L , Mean Corpuscular Volume 96.7H, Mean Corpuscular Hemoglobin 30.6, Mean Corpuscular Hemoglobin Concent 31.6L, Red Cell Distribution Width 15.7H, Platelet Count 184, Neutrophils (%) (Auto) 87.4H, Lymphocytes (%) (Auto) 6.0L, Monocytes (%) (Auto) 4.8, Eosinophils (%) (Auto) 0.5, Basophils (%) (Auto) 0.1, Neutrophils # (Auto) 8.3H, Lymphocytes # (Auto) 0.6L, Monocytes # (Auto) 0.5, Eosinophils # (Auto) 0.0, Basophils # (Auto) 0.0, Calcium Level 9.0, Glomerular Filtration Rate 6.0L, Large Unclassified Cells # 0.1, Large Unclassified Cells % 1.1, Phosphorus Level 2.8 CBC/BMP Laboratory Tests 09/25/16 06:28 Anion Gap 12, Red Blood Count 3.33 L, Mean Corpuscular Volume 96.7 H, Mean Corpuscular Hemoglobin 30.6, Mean Corpuscular Hemoglobin Concent 31.6 L, Red Cell Distribution Width 15.7 H, Neutrophils (%) (Auto) 87.4 H, Lymphocytes (%) ( Auto) 6.0 L, Monocytes (%) (Auto) 4.8, Eosinophils (%) (Auto) 0.5, Basophils (% ) (Auto) 0.1, Neutrophils # (Auto) 8.3 H, Lymphocytes # (Auto) 0.6 L, Monocytes # (Auto) 0.5, Eosinophils # (Auto) 0.0, Basophils # (Auto) 0.0 Microbiology Microbiology 09/23/16 Blood Culture - Preliminary, Resulted No growth after 24 hours . All specim... 09/23/16 Blood Culture - Preliminary, Resulted No growth after 24 hours . All specim... 09/24/16 MRSA Screen, Received Pending 09/23/16 Respiratory Virus Panel (PCR) (DAMIEN) - Final, Complete Coronavirus 229E 09/23/16 Influenza Virus Type A Antigen - Final, Complete 09/23/16 Influenza Virus Type B Antigen - Final, Complete Rob Connor RPA-C Sep 25, 2016 12:00
--- NOTE | 2016-09-25 12:11 | IPN ---
DATE: 09/25/2016 Mrs. Carnes is seen this morning on her bedside during hemodialysis. She is feeling better, though still has some cough. Her dyspnea has improved. She also has improved blood pressure and denies any dizziness or lightheadedness. She has no fever or chills. On physical exam, temperature 96.5 degrees Fahrenheit, heart rate 88 per minute and respiratory rate 16 per minute. Blood pressure 146/70 mmHg and oxygen saturation 97% on 2 liters oxygen. Head is atraumatic. Ears, nose and throat are unremarkable. Pupils equal and reactive to light and sclera is anicteric. Heart sounds are regular and lungs with scattered rhonchi. Abdomen is soft and nontender. Abdomen is without any palpable organomegaly and bowel sounds are normal. Extremities have no cyanosis or clubbing. Skin has no rash or ulcers. Left arm AV fistula is patent and is currently being used for dialysis. Today's labs show WBC count 9.4, hemoglobin 10.2 and hematocrit 32.2. Sodium 138 and potassium 4.9. BUN 40 and creatinine 7.41. Calcium level is 9.0 and phosphorus 2.8. PROBLEMS: 1. End-stage renal disease. Patient is currently being dialyzed and she is tolerating dialysis treatment very well. She will complete her 3-1/2-hour treatment today. 2. Dyspnea. She is feeling better today and we are removing 3 liters of fluid with hemodialysis. She should get up and ambulate after dialysis treatment and see how she feels. I would recommend to stop her oxygen supplementation. 3. Hypotension and tachycardia. Blood pressure is much better now and tachycardia has improved. She remains on metoprolol 100 mg twice a day. 4. Hypophosphatemia. Phosphorus level is slightly low. We will cut down her Renvela dose to 1600 mg. 5. Hyperparathyroidism. Patient remains on Sensipar 30 mg daily and calcitriol 0.75 mcg after each dialysis. Will continue with the same. DISPOSITION: From renal standpoint, patient is likely to be ready for discharge tomorrow.
[2016-09-25 20:25] VITALS: BP 121/70
[2016-09-25] MEDS: ROSUVASTATIN 10 MG TAB (CRESTOR) PO SCH (20:40)
[2016-09-25] MEDS: LEVEMIR (INSULIN DETEMIR) 1 UNITS/0.01ML SC SCH (20:40)
[2016-09-25] MEDS: diazePAM 5 MG TAB PO PRN (20:48)
[2016-09-26 05:45] VITALS: BP 156/67
[2016-09-26] MEDS: LEVOTHYROXINE 0.075 MG TAB (75 MCG) PO SCH (05:51)
[2016-09-26] MEDS: NORCO, ANEXSIA 5/325MG TABLET (HYDROcodone/ACETAMINOPHEN) PO PRN (06:29)
[2016-09-26 06:30] LABS: ALBUMIN 2.8 GM/DL (3.2-5.2); CALCIUM LEVEL 8.8 MG/DL (8.8-10.2); CREATININE FOR GFR 5.14 MG/DL (0.55-1.02); GLOMERULAR FILTRATION RATE 9.1 (>45); PHOSPHORUS LEVEL 2.6 MG/DL (2.5-4.9); POTASSIUM SERUM 4.5 MEQ/L (3.5-5.1)
[2016-09-26 06:39] LABS: BASO % 0.2 % (0.0-1.0); EOS # 0.1 K/mm3 (0.0-0.50); EOS % 0.9 % (0.0-3.0); LARGE UNSTAINED CELL # 0.1 K/mm3 (0.0-0.4); LARGE UNSTAINED CELL % 1.5 % (0.0-4.0); LYMPH % 8.6 % (24.0-44.0); MEAN CORPUSCULAR HEMOGLOBIN 31.6 pg (27.0-33.0); MEAN CORPUSCULAR HGB CONC 32.1 g/dl (32.0-36.5); MEAN CORPUSCULAR VOLUME 98.3 fl (80.0-96.0); MONO # 0.6 K/mm3 (0.0-0.8); MONO % 5.7 % (0.0-5.0); NEUTROPHILS # 8.2 K/mm3 (1.8-7.7); NEUTROPHILS % 83.1 % (36.0-66.0); PLATELET COUNT, AUTOMATED 161 k/mm3 (150-450); RED CELL DISTRIBUTION WIDTH 16.4 % (11.5-14.5); WHITE BLOOD COUNT 9.8 K/mm3 (4.0-10.0)
[2016-09-26] MEDS: ALBUTEROL SULFATE 2.5 MG/0.5 ML INH NEB SOLN INH SCH (07:09)
[2016-09-26] MEDS: TIOTROPIUM INHALER/CAPSULE (SPIRIVA) INH SCH (07:09)
[2016-09-26 08:08] VITALS: BP 156/67
[2016-09-26] MEDS: (RENVELA) SEVELAMER **CARBONate** 800 MG TAB PO SCH (08:08)
[2016-09-26] MEDS: predniSONE 20 MG TAB PO SCH (08:08)
[2016-09-26] MEDS: ASPIRIN 325 MG TAB PO SCH (08:08)
[2016-09-26] MEDS: METOPROLOL TARTRATE 100 MG TAB PO SCH (08:08)
[2016-09-26] MEDS: HumaLOG INSULIN (NovoLOG) PER UNIT SC SCH (08:08)
[2016-09-26] MEDS: OMEGA-3 1050MG CAPSULE PO SCH (08:09)
[2016-09-26] MEDS: AMIODARONE 200 MG TAB (PACERONE) PO SCH (08:09)
[2016-09-26] MEDS: MAGNESIUM OXIDE 400 MG TAB (MAG-OX) PO SCH (08:09)
[2016-09-26] MEDS: OMEPRAZOLE 20 MG CAP PO SCH (08:09)
[2016-09-26] MEDS ORDERED: CINACALCET 30 MG TAB (SENSIPAR) PO SCH (09:00)
--- NOTE | 2016-09-26 20:49 | IPN ---
DATE: 09/26/2016 Ms. Carnes is seen this morning on her bedside. She is feeling better today and denies any nausea, vomiting, chest pain or palpitations. She does have some shortness of breath and is currently using oxygen. She reports that she uses oxygen at home mostly at night but during daytime only when she needs. She was dialyzed yesterday, which she tolerated very well. PHYSICAL EXAMINATION: Temperature 96.7 degrees Fahrenheit, heart rate 80 per minute and respiratory rate 18/min. Ears, nose and throat are unremarkable. Pupils are reactive and sclera is anicteric. Neck is supple and without jugular venous distention (JVD) or thyroid enlargement. Heart sounds are regular and lungs with moderate bilateral air entry. At present, there is no wheezing or rales. Abdomen is soft and nontender and bowel sounds are normal. Extremities have no cyanosis or clubbing. Left arm AV fistula is patent. Neurologically, she is awake, alert and oriented times three. Today's laboratories show WBC count 9.8, hemoglobin 10.1 and hematocrit 31.4. Sodium 138 and potassium 4.5. BUN 46 and creatinine 5.14. Glucose is 177 and calcium 8.8. PROBLEMS: 1. Shortness of breath, mostly related to her chronic lung disease. At present , her volume status is very well compensated. She underwent hemodialysis yesterday and 3 liters fluid was removed. She tolerated her dialysis treatment well. 2. Hypotension. Blood pressure has improved and she is not symptomatic anymore. She is back on her usual dose of metoprolol 100 mg twice a day. 3. End-stage renal disease. The patient was dialyzed yesterday and her next dialysis will be scheduled tomorrow as an outpatient. 4. Secondary hyperparathyroidism. The patient will continue with her chronic medications, including Sensipar and phosphate binders as she was taking prior to admission. DISPOSITION: From renal standpoint, the patient can be discharged to home today and follow up at outpatient dialysis clinic tomorrow. I have already informed the dialysis clinic about her discharge. Her dry weight will be adjusted at dialysis clinic. MTDD
--- NOTE | 2016-10-24 08:59 | DSES ---
DATE OF ADMISSION: 09/25/2016 DATE OF DISCHARGE: 09/26/2016 PRIMARY CARE PHYSICIAN: Dr. Aiden Nieves ATTENDING PHYSICIAN: Dr. Cullen Sparrow CONSULTANTS: Dr. Bond HISTORY OF PRESENT ILLNESS: Caro Carnes is a 60-year-old female patient with end-stage renal disease, who undergoes hemodialysis, who felt drained on dialysis and experience hypotension at the end of the dialysis. She presented to the emergency department with these symptoms. Patient was admitted with hypotension and shortness of breath. She was given intravenous (IV) fluids and her blood pressures did improve. She was eventually restarted on her home dose of Lopressor and amiodarone. Dr. Bond was consulted as he follows her for her end-stage renal disease. She was seen for dialysis the next day and patient was overall feeling better with resolution of her shortness of breath. It was felt she would be monitored after dialysis and likely discharged home the next day. She was continued on her home doses of Lopressor and amiodarone. She was placed on sliding-scale insulin and Levemir for her history of diabetes. By day of discharge, patient was feeling back to baseline and was having no further shortness of breath or hypotension. She is felt to be stable for discharge and will followup with Dr. Nieves and Dr. Bond. On day of discharge, temperature 96.9, pulse 79, respiratory rate 18, blood pressure is 156/67, pulse oximetry 98% on room air. DISCHARGE MEDICATIONS: - [place] 5/325 mg twice a day as needed, pain - amiodarone 200 mg by mouth daily - aspirin - calcitriol 0.75 mcg by mouth three times a week - Sensipar 30 mg by mouth every week - cyclobenzaprine 5 mg three times a day as needed, muscle spasm - diazepam 5 mg by mouth twice a day as needed, anxiety - Colace 100 mg by mouth daily as needed, constipation - Lantus 46 units subcutaneous nightly - Synthroid 75 mcg by mouth daily - magnesium oxide 400 mg by mouth daily - metoprolol 100 mg by mouth twice a day - Lovaza two capsules by mouth twice a day - omeprazole 40 mg by mouth daily - Zofran 4 mg by mouth three times a day as needed, nausea - Kyra-Mirella one tablet by mouth daily - Crestor 20 mg by mouth nightly - Renvela 2400 mg by mouth Wednesdays and Mondays - sodium polystyrene sulfonate 15 grams by mouth as directed - Spiriva one inhalation daily - trazodone 100 mg by mouth nightly - Drisdol 50,000 units by mouth two times a week DISCHARGE INSTRUCTIONS: Followup with Dr. Nieves in a week. Followup with Dr. Bond in a week. Continue hemodialysis per Dr. Bond's instructions. Diet: No added salt, carbohydrate consistent. Activity as tolerated. DISCHARGE DIAGNOSES: 1. Shortness of breath. 2. Hypotension. 3. End-stage renal disease. 4. Secondary hyperparathyroidism. 5. Atrial flutter. 6. Diabetes mellitus. 7. Obstructive sleep apnea (PRABHJOT). 8. Hypertension. 9. Coronavirus. Patient did have a respiratory virus panel done that was positive for coronavirus, which was felt to be contributing to her shortness of breath. Symptomatic treatment for the coronavirus, and by day of discharge patient was feeling improved and was felt to be stable for discharge home.
== END 2016-09-26 10:50 | disposition home or self-care (01) | DRG 308 ==
LOC: M ED 13:09 → M ED INP 20:02 → M MSPAV 23:15 → OBSVTOIN 09-25 11:53
PROVIDERS: ADMIT Internal Medicine; ATTEND Family Medicine
PROC: 5A1D60Z (ICD-10-PCS; principal; 2016-09-25)
DX: I48.92 Unspecified atrial flutter (principal); N18.6 End stage renal disease; I13.11 Hypertensive heart and chronic kidney disease without heart failure, with stage 5 chronic kidney disease, or end stage renal disease; N25.81 Secondary hyperparathyroidism of renal origin; E11.9 Type 2 diabetes mellitus without complications; F41.9 Anxiety disorder, unspecified; E66.9 Obesity, unspecified; G47.33 Obstructive sleep apnea (adult) (pediatric); J44.9 Chronic obstructive pulmonary disease, unspecified; K21.9 Gastro-esophageal reflux disease without esophagitis; I95.3 Hypotension of hemodialysis; E03.9 Hypothyroidism, unspecified; E78.5 Hyperlipidemia, unspecified; D63.1 Anemia in chronic kidney disease; B97.29 Other coronavirus as the cause of diseases classified elsewhere; E83.39 Other disorders of phosphorus metabolism; R06.02 Shortness of breath; Z79.4 Long term (current) use of insulin; Z99.2 Dependence on renal dialysis; Z79.01 Long term (current) use of anticoagulants

== ENCOUNTER 2016-12-09 19:41 | Emergency (ER) | payer MEDICARE, MEDICAID ==
[~2016-12-09] VITALS: Ht 154.9 cm; Wt 87.1 kg
[~2016-12-09 19:41] MED LIST changes: +CINA30TA PO; -COLA100C PO; +COLA100C3 PO; +LIDO1CRE14 TOP; +NORC1TAB4 PO; -NORC5TAB PO
[2016-12-09] MEDS ORDERED: ONDANSETRON 4MG/2ML VIAL (J2405) IV ONE (21:15)
[2016-12-09] MEDS ORDERED: fentaNYL 100 MCG/2 ML INJECTION (J3010) IV ONE (21:15)
[2016-12-09 22:35] LABS: VENOUS BASE EXCESS -0.4 (-2.0-2.0); VENOUS O2 SATURATION 82.6 % (60.0-80.0); VENOUS PARTIAL PRESSURE CO2 51.5 mmHg (38.0-50.0); VENOUS PARTIAL PRESSURE O2 47.9 mmHg (30.0-50.0); VENOUS STANDARD HCO3 23.9 MEQ/L; VENOUS TOTAL CO2 27.8 MEQ/L (24.0-28.0)
[2016-12-09 22:42] LABS: BASO # 0.1 K/mm3 (0.0-0.2); EOS # 0.4 K/mm3 (0.0-0.50); EOS % 5.3 % (0.0-3.0); LARGE UNSTAINED CELL # 0.2 K/mm3 (0.0-0.4); LARGE UNSTAINED CELL % 2.9 % (0.0-4.0); LYMPH # 1.3 K/mm3 (1.5-4.5); MEAN CORPUSCULAR HEMOGLOBIN 32.1 pg (27.0-33.0); MEAN CORPUSCULAR HGB CONC 31.9 g/dl (32.0-36.5); MEAN CORPUSCULAR VOLUME 100.5 fl (80.0-96.0); MONO # 0.6 K/mm3 (0.0-0.8); MONO % 9.5 % (0.0-5.0); NEUTROPHILS # 4.1 K/mm3 (1.8-7.7); NEUTROPHILS % 61.3 % (36.0-66.0); PLATELET COUNT, AUTOMATED 110 k/mm3 (150-450); RED CELL DISTRIBUTION WIDTH 14.1 % (11.5-14.5); WHITE BLOOD COUNT 6.6 K/mm3 (4.0-10.0)
[2016-12-09 23:06] LABS: ALBUMIN/GLOBULIN RATIO 0.79 (1.00-1.93); ALKALINE PHOSPHATASE 158 U/L (45-117); ALT/SGPT 19 U/L (12-78); ANION GAP 8 MEQ/L (8-16); AST/SGOT 14 U/L (15-37); BILIRUBIN,DIRECT 0.1 MG/DL (0.0-0.2); BILIRUBIN,TOTAL 0.3 MG/DL (0.2-1.0); BLOOD UREA NITROGEN 28 MG/DL (7-18); CALCIUM LEVEL 8.4 MG/DL (8.8-10.2); CARBON DIOXIDE LEVEL 30 MEQ/L (21-32); CHLORIDE LEVEL 100 MEQ/L (98-107); CREATININE FOR GFR 5.85 MG/DL (0.55-1.02); GLOMERULAR FILTRATION RATE 7.8 (>45); GLUCOSE, FASTING 105 MG/DL (80-110); POTASSIUM SERUM 4.8 MEQ/L (3.5-5.1); SODIUM LEVEL 138 MEQ/L (136-145); TOTAL PROTEIN 6.8 GM/DL (6.4-8.2)
[2016-12-10 00:40] LABS: MICROSCOPIC INDICATED? MAN YES (NO)
[2016-12-10] MEDS ORDERED: NS 500 ML IV ONE (00:45)
[2016-12-10 00:48] LABS: MICROSCOPIC EXAM PERFORMED
[2016-12-10 00:49] LABS: HYALINE CAST, URINE NONE SEEN /lpf (0-1); SQUAMOUS EPITHELIAL CELL URINE MOD AMOUNT /hpf (SMALL AMT); WBC, URINE TNTC /hpf (0-3)
[2016-12-10 00:50] LABS: BACTERIA, URINE MOD AMOUNT
[2016-12-10] MEDS ORDERED: KEFL500C7 PO (01:20)
[2016-12-10] MEDS ORDERED: CEPHALEXIN 500 MG CAP PO ONE (01:30)
[2016-12-10 01:40] VITALS: BP 105/73
--- NOTE | 2016-12-10 07:34 | REP ---
Clinical: Altered mental status . Comparison: 09/23/2016 . Technique: PA and lateral. Findings: The mediastinum and cardiac silhouette are normal. The lung spencer are clear and without acute consolidation, effusion, or pneumothorax. The skeletal structures are intact and normal. Impression: 1. No acute cardiopulmonary process. Signed by Geovanni Scanlon MD 12/10/2016 07:26 A
--- NOTE | 2016-12-11 07:57 | ECGEPIP ---
Stationary ECG Study [facility] - ED Test Date: 2016-12-09 Pat Name: JOSE ROGERS Department: Room: - Gender: F Investor Relations Director: gala : 1955 Requested By: SHUN OHARA Order Number: [id number] Reading MD: Sarah Beth Griffin Measurements Intervals [place] Rate: 85 P: [place]: 0 QRS: 14 QRSD: 99 T: 41 QT: 411 QTc: 490 Interpretive Statements ATRIAL FIBRILLATION POSSIBLE RIGHT VENTRICULAR CONDUCTION DELAY ABNORMAL RHYTHM ECG PROLONGED QTC SIMILAR 09/24/16 Electronically Signed On 12-11-2016 7:57:43 EDT by Sarah Beth Griffin
== END 2016-12-10 02:00 | disposition home or self-care (01) ==
LOC: M ED 20:46
DX: E86.0 Dehydration (principal); N39.0 Urinary tract infection, site not specified; I25.10 Atherosclerotic heart disease of native coronary artery without angina pectoris; I25.2 Old myocardial infarction; I12.9 Hypertensive chronic kidney disease with stage 1 through stage 4 chronic kidney disease, or unspecified chronic kidney disease; N18.9 Chronic kidney disease, unspecified; G47.33 Obstructive sleep apnea (adult) (pediatric); F32.9 Major depressive disorder, single episode, unspecified; E03.9 Hypothyroidism, unspecified; E55.9 Vitamin D deficiency, unspecified; F41.9 Anxiety disorder, unspecified; E78.00 Pure hypercholesterolemia, unspecified; Z86.73 Personal history of transient ischemic attack (TIA), and cerebral infarction without residual deficits; Z86.14 Personal history of Methicillin resistant Staphylococcus aureus infection; Z79.82 Long term (current) use of aspirin; Z79.899 Other long term (current) drug therapy; Z88.8 Allergy status to other drugs, medicaments and biological substances
CPT/HCPCS: 36415; 36600; 71020; 80048; 80076; 81015; 82140; 82550; 82553; 82803; 83605; 84443; 84484; 85025; 93005; 93041; 96374; 96375; 99285; J2405; J3010

== ENCOUNTER → 2017-01-09 | Outpatient (CLI) | payer MEDICARE, MEDICAID ==
[~2017-01-09] MED LIST changes: +AMIO200T PO; -AMIO20TA PO; -COLA100C3 PO; +COLA100C5 PO; -CYCL5TA PO; +CYCL5TAB PO; +KEFL500C17 PO; -MACR100C3 PO; +MACR100C43 PO; +METO100T5 PO
--- NOTE | 2017-01-23 01:12 | ECWPNPC ---
PATIENT NAME: JOSE ROGERS : 1955 GENDER: FEMALE VISIT DATE: 01/09/2017 DISCHARGE DATE: 01/09/17 1427 VISIT LOCKED DATE TIME: PHYSICIAN: ESTELA JOLLEY PHYSICIAN PAGER NO: TEXT ME [phone] RESOURCE: ESTELA JOLLEY REASON FOR APPOINTMENT 1. KEEP APPT FOR LONGER TIME HISTORY OF PRESENT ILLNESS HISTORY OF PRESENT ILLNESS: 61 Y/O FEMALE REFERRED BY FOR CHRONIC LOW BACK PAIN AND NECK PAIN.HISTORY OF TWO LUMBAR SURGERIES 1979 AND 1990.HAS HAD CHRONIC LOW BACK SINCE 1990.HAS HAD NECK PAIN SINCE 1989.HAD CAUDAL EPIDURAL AT DR. AGOSTO OFFICE > 6 MOS. AGO WITH AGGREVATION IN PAIN.DESCRIBES LOW BACK PAIN INTERMITTENT ACHING AND CONSTANT BURNING.PAIN HAS GOTTEN WORSE LATELY.RATING PAIN VAS 7/10. PAIN THE PATIENT DESCRIBES THE PAIN... FALL RISK SCREENING: SCREENING :NO FALLS IN THE PAST YEAR CURRENT MEDICATIONS TAKING LANTUS 100 UNIT/ML SOLOSTAR PEN 48 SUBCUTANEOUS AT BEDTIME/ DX : 250.40 TAKING CRESTOR 20 MG TABLET 1 TABLET ORALLY AT BEDTIME TAKING LOPRESSOR 100 MG TABLET 1 TABLETS ORALLY TWICE DAILY TAKING NEPHRO-GUILHERME 0.8 MG TABLET 1 TABLET ORALLY DAILY TAKING DRISDOL 50,000 UNITS TABLET 1 TAB ORAL EVERY OTHER WEEK TAKING AMIODARONE HCL 200 MG TABLET 1 TABLET ORALLY DAILY TAKING RENAGEL 800 MG TABLET 3 TABLET WITH MEALS ORALLY THREE TIMES A DAY TAKING ASPIRIN 325 MG TABLET 1 TABLET ORALLY ONCE A DAY TAKING CALCITRIOL 0.5 MCG CAPSULE 4 CAPSULE ORALLY THREE TIMES WEEKLY TAKING GLUCOSE STRIP (VERIO IQ) 1 .. 250.02 VITRO TWICE A DAY TAKING VOLTAREN 1 % GEL TO LEFT ELBOW TRANSDERMAL TWICE DAILY NEEDED TAKING SPIRIVA HANDIHALER 18 MCG CAPSULE 1 CAPSULE INHALATION ONCE A DAY TAKING NEBULIZER/TUBING/MOUTHPIECE 1 KIT 1 TAB(S) 327.23 DAILY NEEDED TAKING LOVAZA 1 GM CAPSULE 1 CAPSULES ORALLY FOUR TIMES DAILY TAKING TRAZODONE HCL 100 MG TABLET 1 TABLET AT BEDTIME ORALLY AT BEDTIME TAKING SENSIPAR 30 MG TABLET 1 TABLET ORALLY ONCE WEEKLY TAKING LEVOTHYROXINE SODIUM 75 MCG TABLET 1 TABLET ON AN EMPTY STOMACH IN THE MORNING ORALLY ONCE A DAY TAKING INSULIN PEN NEEDLE 29G X 12MM MISCELLANEOUS (ULTRAFINE BD) DX : E11.29 SUBCUTANEOUSLY DAILY TAKING ZOFRAN 4 MG TABLET 1 TAB(S) ORALLY EVERY EIGHT HOURS NEEDED TAKING ALBUTEROL SULFATE (2.5 MG/3ML) 0.083% NEBULIZATION SOLUTION 3 ML INHALATION QID PRN TAKING DIAZEPAM 5 MG TABLET 1 TABLET NEEDED ORALLY BID PRN (MDD #2) TAKING LANTUS SOLOSTAR PEN 100 UNITS/ML SOLUTION INJECT 46 UNITS UNDER THE SKIN AT BEDTIME TAKING ONE TOUCH DELICA 33 GAUGE .. DIRECTED SUBCUTANEOUSLY TID, DX: 250.00 TAKING GLUCOMETER (VERIO IQ) 1 GLUCOMETER 250.0 VITRO TWICE A DAY TAKING SHOWER CHAIR WITHOUT WHEELS DX : 428.32, 585.5, V45.11 DIRECTED - DAILY USE TAKING NEBULIZER RD=031.21 _ _ _ _ TAKING HYDROCODONE-ACETAMINOPHEN 5-325 MG TABLET 1 TAB ORALLY TWICE DAILY MDD 2 TAKING MAG-OXIDE 400 MG TABLET 1 TAB(S) ORALLY ONCE DAILY TAKING FLEXERIL 5 MG TABLET 1 TABLET ORALLY THREE TIMES A DAY NEEDED TAKING PRILOSEC 40MG 40 MG TABLET 1 TAB ORALLY DAILY NOT-TAKING PREDNISONE 10 MG TABLET 1 TABLET ORALLY ONCE A DAY NOT-TAKING NYSTATIN [id number] UNIT/ML SUSPENSION 5 ML MOUTH/THROAT EVERY 8 HRS NOT-TAKING PREDNISONE 20 MG TABLET 2 TABS ORALLY ONCE A DAY NOT-TAKING LEVAQUIN 250 MG TABLET 1 TABLET ORALLY ONCE A DAY NOT-TAKING VALIUM 5 MG TABLET 1 TABLET NEEDED ORALLY TWICE A DAY, NOTES: [facility] ER 02/03/15 NOT-TAKING CETIRIZINE HCL 10 MG TABLET 1 TABLET NEEDED ORALLY ONCE A DAY DISCONTINUED OMNICEF DISCONTINUED KEFLEX 500 MG CAPSULE 1 CAPSULE ORALLY TWICE A DAY, NOTES: [facility] ER 02/03/15 MEDICATION LIST REVIEWED AND RECONCILED WITH THE PATIENT PAST MEDICAL HISTORY DM II WITH NEPHROPATHY STAGE V CKD ([facility] ATRIAL FLUTTER (NO ANTICOAGULATION B/C OF BLEED - MANAGED BY TRA). H/O INTRAVENTRICULAR BLEED RELATED TO COUMADIN ([facility]) 06/03-PREVIOUSLY FOLLOWED BY DR TEIXEIRA HTN/HHD SECONDARY HYPERPARATHYROIDISM ANEMIA OF CHRONIC DISEASE ANXIETY OBESITY PRABHJOT (INTOLERANT OF BIPAP)- [facility] PUL ADENOSINE NUCLEAR STRESS @ [facility] 09/15/07 - NORMAL, NO ISCHEMIA OR INFARCTION NOTED CAROTID ULTRASOUND NO SIGNIFICANT STENOSIS 01/2013 ECHOCARDIOGRAM [facility] 07/09 - [facility] WITH PRESERVED SYSTOLIC FX.EF 75% THYROID NODULE/FNA NEG PER DR CURT XR RT SHOULDER 11/07 MOD DEGEN CHANGE XR C/T SPINE 11/07 MILD DEGEN CHANGE MEMORY LOSS SINCE PREV INTRAVENTRICULAR BLEED MRI BRAIN 01/07 MINIMAL SMALL VESSEL DISEASE/AREAS OF HEMOSIDERIN AND POSTERIOR RIGHT OCCIPITAL AND TEMPORAL LOBE SECONDARY TO PREVIOUS HEMORRHAGE/MINIMAL VOLUME LOSS COPD- [facility] PULM: RIDGE SAVJANN VOCAL CORD DYSFUNCTION- REFERRED TO ENT [facility] 09/10 DIFFUSE FIBROFATTY INFILTRATION LIVER. ARTHRITIS BACK PAIN/NECK PAIN- [facility] ALLERGIES GATIFLOXACIN: SWOLLEN TONGUE AND MOUTH: ALLERGY TEQUIN: ANAPHYLAXIS: ALLERGY AZITHROMYCIN: DYSPNEA, FACE AND LIPS SWELLING AND TINGLING - SEEN IN THE ER 07/2016: ALLERGY SOCIAL HISTORY GENERAL: TOBACCO USE ARE YOU A:NONSMOKER SHE QUIT IN [phone]. PRIOR TO THAT SHE HAD ACRUED A 80 PACK YEAR HX. BMI CARE GOAL FOLLOW-UP ABOVE NORMAL BMI FOLLOW-UPLIFESTYLE EDUCATION REGARDING DIET ALCOHOL SCREENING DID YOU HAVE A DRINK CONTAINING ALCOHOL IN THE PAST YEAR?YES HOW OFTEN DID YOU HAVE A DRINK CONTAINING ALCOHOL IN THE PAST YEAR?MONTHLY OR LESS (1 POINT) HOW MANY DRINKS DID YOU HAVE ON A TYPICAL DAY WHEN YOU WERE DRINKING IN THE PAST YEAR?1 OR 2 (0 POINTS) HOW OFTEN DID YOU HAVE SIX OR MORE DRINKS ON ONE OCCASION IN THE PAST YEAR?NEVER (0 POINTS) POINTS1 INTERPRETATIONNEGATIVE RECREATIONAL DRUG USE DRUG USE? NO. CAFFEINE CAFFEINE USE?YES HOW OFTEN AND HOW MUCH? DRINKS 1 CUP COFFEE PER DAY SEXUAL HX HAD SEX IN THE LAST 12 MONTHS (VAGINAL, ORAL, OR ANAL)?NO HAVE YOU EVER HAD AN STD?NO HIV / HEP-C SCREENING HIV TEST OFFERED TO PATIENT:YES DATE OFFERED:12/12/2016 TEST ACCEPTED:NO REASON: SHE IS BEING SCREENED FOR A KIDNEY TRANSPLANT AND THEY WILL BE DOING THIS TESTING HEP-C TEST OFFERED TO PATIENT:YES DATE OFFERED:12/12/2016 TEST ACCEPTED:NO REASON: SHE IS BEING SCREENED FOR A KIDNEY TRANSPLANT AND THEY WILL BE DOING THIS TESTING DIET: NO ADDED SALT, SHOULD BE DOING CONSISTENT CARBOHYDRATE BUT SLIPS UP FREQUENTLY. EXERCISE: SHE ENJOYS WALKING IN HER BUILDING. OTHERS AT HOME: NONE. ZOROASTRIANISM [id number] BUDDHIST EDUCATION LEVEL OF EDUCATION:FINISHED HIGH SCHOOL LEARNING BARRIERS / SPECIAL NEEDS CHANGE FROM LAST VISIT?NO BARRIERS TO LEARNING?NO HEARING IMPAIRED?NO VISION IMPAIRED?YES :CORRECTIVE LENSES GLASSES COGNITIVELY IMPAIRED?NO READINESS TO LEARN?YES LEARNING PREFERENCES?NO LEARNING CAPABILITIES PRESENT?YES EMOTIONAL BARRIERS?NO SPECIAL DEVICES?NO PSYCHOLOGICAL HX TREATMENT NO . PAIN CLINIC PFS, CLERGY, PUBLIC HEALTH REFERRALS PFS REFERRAL NEEDED?NO CLERGY REFERRAL NEEDED?NO PUBLIC HEALTH REFERRAL NEEDED?NO WAS THE PROVIDER NOTIFIED OF ANY PERTINENT INFO?NO HAS THE PATIENT BEEN EDUCATED REGARDING HIS/HER PLAN OF CARE?YES HAS THE PATIENT BEEN EDUCATED REGARDING PAIN, THE RISK FOR PAIN, THE IMPORTANCE OF EFFECTIVE PAIN MANAGEMENT, AND THE PAIN ASSESSMENT PROCESS?YES PATIENT: ____. ADVANCE DIRECTIVES HEALTH CARE PROXY?YES NAME OF HCP SISTER LIEN [place] CONTACT # FOR HCP DO YOU HAVE A COPY WITH YOU? COPY AT [facility] POWER OF BUSINESS BANKING REPRESENTATIVE?NO SOCIAL HISTORY PATIENTDENIES ABUSE OR MISSUSED OF ANY MEDICATION, DENIES USE OF ANY ILLEGAL SUBSTANCE INCLUDING MARIJUANA OR COCAINE, REPORTS BEING EMOTIONALLY STABLE, REPORTS HAVING A SAFE AND ADEQUATE PLACE TO STORE THE MEDICATIONS, DENIES RECREATIONAL DRUG USE REVIEW OF SYSTEMS REVIEWED BY: PROVIDER: ESTELA OHARA . CONSTITUTIONAL: ANY CHANGE IN YOUR MEDICAL CONDITION? YESON DIALYSIS . CHILLS NO . FEVER NO . INFECTION: DO YOU HAVE NEW INFECTIONS? NO . DO YOU HAVE HISTORY OF MRSA? NO . MUSCULOSKELETAL: ANY NEW PATTERNS OF PAIN OR NUMBNESS? YES, NUMBNESS AND TINGLING ACCROSS TAILBONE AND PAIN WITH SITTING FOR ANY DURATION, LIKE AT DIALYSIS. . GASTROENTEROLOGY: ANY NEW CHANGE IN BOWEL CONTROL? NO . GENITOURINARY: ANY NEW CHANGE IN BLADDER CONTROL? YES, ON DIALYSIS . IS THERE A CHANCE YOU COULD BE ? NO . HEMATOLOGY/LYMPH: DO YOU TAKE ANY BLOOD THINNERS? (FOR EXAMPLE- COUMADIN, PLAVIX, AGGRENOX, PLATEL, PRADAXA, OR XARELTO) NO . WHEN WAS YOUR LAST DOSE? DATE: TIME: . NEUROLOGY: HAVE YOU FALLEN IN THE PAST 6 MONTHS? NO . ANY NEW EXTREMITY NUMBNESS OR WEAKNESS? NO . CARDIOLOGY: DO YOU HAVE A PACEMAKER OR DEFIBRILLATOR? NO . RESPIRATORY: HAVE YOU BEEN SICK IN THE PAST WEEK? NO . FEVER NO . FLU LIKE SYMPTOMS? NO . COUGH NO . INTEGUMENTARY: DO YOU HAVE ANY RASHES OR OPEN SORES? NO . ALLERGIC/IMMUNO: ARE YOU ALLERGIC TO SHELLFISH OR IV DYE? NO . ANY NEW ALLERGIES? YES, LISTED ABOVE . PSYCHIATRIC: DO YOU HAVE THOUGHTS OF HURTING YOURSELF OR SOMEONE ELSE? NO . ARE YOU ABUSED, NEGLECTED, OR IN AN UNSAFE ENVIRONMENT? NO . ENDOCRINOLOGY: ARE YOU DIABETIC? YES . OTHER: DO YOU NEED ANY PRESCRIPTIONS? NO . IF YES, PLEASE LIST: ____ . ANY NEW PROBLEMS WITH YOUR MEDICATIONS? NO . WHEN DID YOU LAST EAT? ____ . WHEN DID YOU LAST DRINK? ____ . WHAT DID YOU LAST DRINK? ____ . NAME OF PERSON DRIVING YOU HOME? ____ . DO YOU HAVE ANY OTHER QUESTIONS OR CONCERNS NO . VITAL SIGNS WT 189 LBS, HT 62 IN, BMI 34.56 INDEX, BP 120/65 MM HG, HR 74 /MIN, RR 18 /MIN, TEMP 98.2 F, OXYGEN SAT % 92%, NA INITIALS AW 1321, REVIEWED BY: BELKIS. EXAMINATION GENERAL EXAMINATION: GENERAL APPEARANCE:COMFORTABLE. PSYCHAFFECT NORMAL, GOOD EYE CONTACT. NECK:NO LYMPHADENOPATHY. LUNGS:LUNG ROMERO ARE CLEAR TO AUSCULTATION BILATERALLY. GOOD MOVEMENT OF AIR. HEART:S1, S2 IN A REGULAR RATE AND RHYTHM. NO SIGNIFICANT MURMURS, RUBS OR GALLOPS NOTED. BACK:PERILUMBAR TENDERNESS, BILATERAL SI JOINT TENDERNESS, TRAPEZIOUS TENDERNESS. CERVICAL SPINE/NECK: MYOFASCIAL TRIGGER POINTS:LEFT TRAPEZIUS. 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 PREVENTIVE MEDICINE PAIN CLINIC TEACHING: PROCEDURE TEACHING PRE-PROCEDURE TEACHING DONE. PATIENT HAS HAD TPI IN THE PAST AND IS VERY FAMILIAR WITH THESE.. PROCEDURE CODES FA211 ESTABILISHED PATIENT [facility] FACILITY CHARGE G8730 PAIN ASSESS POS TOOL F/U PLAN DOC G8427 DOC MEDS VERIFIED W/PT OR RE DISPOSITION & COMMUNICATION FOLLOW UP 2WK POST (REASON: TPI LEFT NECK) ELECTRONICALLY SIGNED BY MAYDA SMITH ON 01/22/2017 AT 09:11 AM EDT DISCLAIMER : THIS IS A VISIT SUMMARY EXTRACTED FROM THE [employer] CHART. IT IS NOT A COPY OF THE [employer] PROGRESS NOTE. JUAN
== END ==
LOC: M PAIN 13:20
PROVIDERS: ATTEND Nurse Practitioner Family
DX: M47.816 Spondylosis without myelopathy or radiculopathy, lumbar region (principal); M43.02 Spondylolysis, cervical region; M79.1 Myalgia; G89.29 Other chronic pain; M54.5 Low back pain; M54.2 Cervicalgia; G47.33 Obstructive sleep apnea (adult) (pediatric); E11.22 Type 2 diabetes mellitus with diabetic chronic kidney disease; N18.9 Chronic kidney disease, unspecified; J41.1 Mucopurulent chronic bronchitis; Z79.82 Long term (current) use of aspirin; Z79.4 Long term (current) use of insulin; Z79.891 Long term (current) use of opiate analgesic; Z79.899 Other long term (current) drug therapy; Z87.891 Personal history of nicotine dependence; Z99.2 Dependence on renal dialysis

== ENCOUNTER → 2017-01-30 | Outpatient (CLI) | payer MEDICARE, MEDICAID ==
[~2017-01-30] MED LIST changes: +BUPIVACAINE HCL 0.25% 10 ML VIAL As Ordered ONE; +BUPIVACAINE HCL 0.25% 30 ML VIAL As Ordered ONE; +TRIAMCINOLONE ACETONIDE SUSP 40 MG/ML VIAL (J3301) As Ordered ONE
--- NOTE | 2017-02-08 23:56 | ECWPNPC ---
PATIENT NAME: JOSE ROGERS : 1955 GENDER: FEMALE VISIT DATE: 01/30/2017 DISCHARGE DATE: 01/30/17 1616 VISIT LOCKED DATE TIME: PHYSICIAN: JOSIE DOE PHYSICIAN PAGER NO: TEXT TO [phone] RESOURCE: JOSIE DOE REASON FOR APPOINTMENT 1. TPI HISTORY OF PRESENT ILLNESS HISTORY OF PRESENT ILLNESS: PAIN THE PATIENT DESCRIBES THE PAIN... FALL RISK SCREENING: SCREENING :NO FALLS IN THE PAST YEAR CURRENT MEDICATIONS TAKING LANTUS 100 UNIT/ML SOLOSTAR PEN 48 SUBCUTANEOUS AT BEDTIME/ DX : 250.40, NOTES: 01-29-172099 TAKING CRESTOR 20 MG TABLET 1 TABLET ORALLY AT BEDTIME, NOTES: 01-29-172099 TAKING LOPRESSOR 100 MG TABLET 1/2 TABLET ORALLY TWICE DAILY, NOTES: 01-29-172099 TAKING NEPHRO-GUILHERME 0.8 MG TABLET 1 TABLET ORALLY DAILY, NOTES: 01-29-17799 TAKING DRISDOL 50,000 UNITS TABLET 1 TAB ORAL EVERY OTHER WEEK, NOTES: WEEK AGO TAKING AMIODARONE HCL 200 MG TABLET 1 TABLET ORALLY DAILY, NOTES: 01-29-17799 TAKING RENAGEL 800 MG TABLET 3 TABLET WITH MEALS ORALLY THREE TIMES A DAY, NOTES: 01-29-172099 TAKING ASPIRIN 325 MG TABLET 1 TABLET ORALLY ONCE A DAY, NOTES: 01-29-17799 TAKING CALCITRIOL 0.5 MCG CAPSULE 4 CAPSULE ORALLY THREE TIMES WEEKLY, NOTES: 01-29-17799 TAKING GLUCOSE STRIP (VERIO IQ) 1 .. 250.02 VITRO TWICE A DAY TAKING SPIRIVA HANDIHALER 18 MCG CAPSULE 1 CAPSULE INHALATION ONCE A DAY, NOTES: NONE TAKING NEBULIZER/TUBING/MOUTHPIECE 1 KIT 1 TAB(S) 327.23 DAILY NEEDED TAKING LOVAZA 1 GM CAPSULE 1 CAPSULES ORALLY FOUR TIMES DAILY, NOTES: 01-29-172099 TAKING TRAZODONE HCL 100 MG TABLET 1 TABLET AT BEDTIME ORALLY AT BEDTIME, NOTES: 01-29-172099 TAKING SENSIPAR 30 MG TABLET 1 TABLET ORALLY ONCE WEEKLY, NOTES: WEEK AGO TAKING LEVOTHYROXINE SODIUM 75 MCG TABLET 1 TABLET ON AN EMPTY STOMACH IN THE MORNING ORALLY ONCE A DAY, NOTES: 01-29-17799 TAKING ZOFRAN 4 MG TABLET 1 TAB(S) ORALLY EVERY EIGHT HOURS NEEDED, NOTES: 01-29-17 PM TAKING ALBUTEROL SULFATE (2.5 MG/3ML) 0.083% NEBULIZATION SOLUTION 3 ML INHALATION QID PRN, NOTES: NONE TAKING DIAZEPAM 5 MG TABLET 1 TABLET NEEDED ORALLY BID PRN (MDD #2), NOTES: 01-29-17 2100 TAKING ONE TOUCH DELICA 33 GAUGE .. DIRECTED SUBCUTANEOUSLY TID, DX: 250.00 TAKING GLUCOMETER (VERIO IQ) 1 GLUCOMETER 250.0 VITRO TWICE A DAY TAKING SHOWER CHAIR WITHOUT WHEELS DX : 428.32, 585.5, V45.11 DIRECTED - DAILY USE TAKING NEBULIZER YH=122.21 _ _ _ _ TAKING MAG-OXIDE 400 MG TABLET 1 TAB(S) ORALLY ONCE DAILY, NOTES: 01-29-17 0800 TAKING FLEXERIL 5 MG TABLET 1 TABLET ORALLY THREE TIMES A DAY NEEDED, NOTES: 01-29-17 2100 TAKING PRILOSEC 40MG 40 MG TABLET 1 TAB ORALLY DAILY, NOTES: 01-29-17 0800 TAKING HYDROCODONE-ACETAMINOPHEN 5-325 MG TABLET 1 TAB ORALLY TWICE DAILY MDD 2, NOTES: 01-29-17 AFTERNOON TAKING INSULIN PEN NEEDLE 29G X 12MM MISCELLANEOUS (ULTRAFINE BD) DX : E11.29 SUBCUTANEOUSLY DAILY NOT-TAKING VOLTAREN 1 % GEL TO LEFT ELBOW TRANSDERMAL TWICE DAILY NEEDED, NOTES: NONE DISCONTINUED LANTUS SOLOSTAR PEN 100 UNITS/ML SOLUTION INJECT 46 UNITS UNDER THE SKIN AT BEDTIME DISCONTINUED PREDNISONE 10 MG TABLET 1 TABLET ORALLY ONCE A DAY DISCONTINUED NYSTATIN 559385 UNIT/ML SUSPENSION 5 ML MOUTH/THROAT EVERY 8 HRS DISCONTINUED PREDNISONE 20 MG TABLET 2 TABS ORALLY ONCE A DAY DISCONTINUED LEVAQUIN 250 MG TABLET 1 TABLET ORALLY ONCE A DAY DISCONTINUED VALIUM 5 MG TABLET 1 TABLET NEEDED ORALLY TWICE A DAY, NOTES: [facility] ER 02/03/15 DISCONTINUED CETIRIZINE HCL 10 MG TABLET 1 TABLET NEEDED ORALLY ONCE A DAY MEDICATION LIST REVIEWED AND RECONCILED WITH THE PATIENT PAST MEDICAL HISTORY DM II WITH NEPHROPATHY STAGE V CKD (ON DIALYSIS WITH [facility]) ATRIAL FLUTTER (NO ANTICOAGULATION B/C OF BLEED - MANAGED BY TRA). H/O INTRAVENTRICULAR BLEED RELATED TO COUMADIN ([facility]) 06/03-PREVIOUSLY FOLLOWED BY DR TEIXEIRA HTN/HHD SECONDARY HYPERPARATHYROIDISM ANEMIA OF CHRONIC DISEASE ANXIETY OBESITY PRABHJOT (INTOLERANT OF BIPAP)- [facility] PUL ADENOSINE NUCLEAR STRESS @ [facility] 09/15/07 - NORMAL, NO ISCHEMIA OR INFARCTION NOTED CAROTID ULTRASOUND NO SIGNIFICANT STENOSIS 01/2013 ECHOCARDIOGRAM [facility] 07/09 - [facility] WITH PRESERVED SYSTOLIC FX.EF 75% THYROID NODULE/FNA NEG PER DR ELIAS XR RT SHOULDER 11/07 MOD DEGEN CHANGE XR C/T SPINE 11/07 MILD DEGEN CHANGE MEMORY LOSS SINCE PREV INTRAVENTRICULAR BLEED MRI BRAIN 01/07 MINIMAL SMALL VESSEL DISEASE/AREAS OF HEMOSIDERIN AND POSTERIOR RIGHT OCCIPITAL AND TEMPORAL LOBE SECONDARY TO PREVIOUS HEMORRHAGE/MINIMAL VOLUME LOSS COPD- [facility] PUL: RIDGE BAKER VOCAL CORD DYSFUNCTION- REFERRED TO ENT [facility] 09/10 DIFFUSE FIBROFATTY INFILTRATION LIVER. ARTHRITIS BACK PAIN/NECK PAIN- [facility] ALLERGIES GATIFLOXACIN: SWOLLEN TONGUE AND MOUTH: ALLERGY TEQUIN: ANAPHYLAXIS: ALLERGY AZITHROMYCIN: DYSPNEA, FACE AND LIPS SWELLING AND TINGLING - SEEN IN THE ER 07/2016: ALLERGY REVIEW OF SYSTEMS REVIEWED BY: PROVIDER: . CONSTITUTIONAL: ANY CHANGE IN YOUR MEDICAL CONDITION? NO . CHILLS NO . FEVER NO . INFECTION: DO YOU HAVE NEW INFECTIONS? NO . DO YOU HAVE HISTORY OF MRSA? NO . MUSCULOSKELETAL: ANY NEW PATTERNS OF PAIN OR NUMBNESS? NO . GASTROENTEROLOGY: ANY NEW CHANGE IN BOWEL CONTROL? NO . GENITOURINARY: ANY NEW CHANGE IN BLADDER CONTROL? NO . IS THERE A CHANCE YOU COULD BE ? NO . HEMATOLOGY/LYMPH: DO YOU TAKE ANY BLOOD THINNERS? (FOR EXAMPLE- COUMADIN, PLAVIX, AGGRENOX, PLATEL, PRADAXA, OR XARELTO) NO . WHEN WAS YOUR LAST DOSE? DATE: TIME: . NEUROLOGY: HAVE YOU FALLEN IN THE PAST 6 MONTHS? NO . ANY NEW EXTREMITY NUMBNESS OR WEAKNESS? NO . CARDIOLOGY: DO YOU HAVE A PACEMAKER OR DEFIBRILLATOR? NO . RESPIRATORY: HAVE YOU BEEN SICK IN THE PAST WEEK? NO . FEVER NO . FLU LIKE SYMPTOMS? NO . COUGH NO . INTEGUMENTARY: DO YOU HAVE ANY RASHES OR OPEN SORES? NO . ALLERGIC/IMMUNO: ARE YOU ALLERGIC TO SHELLFISH OR IV DYE? NO . ANY NEW ALLERGIES? NO . PSYCHIATRIC: DO YOU HAVE THOUGHTS OF HURTING YOURSELF OR SOMEONE ELSE? NO . ARE YOU ABUSED, NEGLECTED, OR IN AN UNSAFE ENVIRONMENT? NO . ENDOCRINOLOGY: ARE YOU DIABETIC? YES . OTHER: DO YOU NEED ANY PRESCRIPTIONS? NO . IF YES, PLEASE LIST: ____ . ANY NEW PROBLEMS WITH YOUR MEDICATIONS? NO . WHEN DID YOU LAST EAT? 01-29-17 9PM . WHEN DID YOU LAST DRINK? 01-30-17 0900 . WHAT DID YOU LAST DRINK? COFFEE . NAME OF PERSON DRIVING YOU HOME? [employer] . 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 . VITAL SIGNS WT 190.6 LBS, HT 62 IN, BMI 34.86 INDEX, BP 124/76 MM HG, HR 66 /MIN, RR 16 /MIN, TEMP 98.0 F, OXYGEN SAT % 94%, NA INITIALS SC 13:34, REVIEWED BY: CM. ASSESSMENTS MYALGIA - M79.1 (PRIMARY) PROCEDURES PN TRIGGER POINT INJECTION WITH STEROIDS PRE PROCEDURE DIAGNOSIS 1. MYALGIA 2. PAIN AT RIGHT LOWER BACK AREA POST PROCEDURE DIAGNOSIS 1. MYALGIA 2. PAIN AT RIGHT LOWER BACK AREA PROCEDURE TRIGGER POINT INJECTION AT RIGHT LOWER BACK AREA SURGEON DR. JOSIE DOE OIL MIXER NONE ANESTHESIA LOCAL PRE PROCEDURE NOTE THE PATIENT HAS A HISTORY OF CHRONIC PAIN AT THE RIGHT LOWER BACK AREA. I EVALUATE THE PATIENT AND REVIEWED THE CHART. THERE IS EVIDENCE OF BANDS OF TISSUE WITH RESTRICTION OF MOVEMENT AND PRESENCE OF TRIGGER POINT AT THE AFFECTED AREA. I WENT OVER THE RISKS, ALTERNATIVES, AND BENEFITS ASSOCIATED WITH THIS PROCEDURE. THE PATIENT WOULD LIKE TO PROCEED AND GIVE CONSENT TO PERFORMED THE PROCEDURE. THE PATIENT DENIES UNEXPLAINABLE WEIGHT LOSS, FEVER, CHILLS, OR NEW CHANGES IN URINARY OR BOWEL CONTROL DESCRIPTION OF PROCEDURE THE PATIENT WAS BROUGHT TO THE PROCEDURE ROOM AND PLACED IN THE SITTING POSITION. THE AREA WAS CLEANED WITH ALCOHOL. THE PROCEDURE WAS DONE USING ASEPTIC STERILE TECHNIQUE. I CHECKED LATERALITY AND THE LEVEL WHERE THE PROCEDURE WAS GOING TO BE PERFORMED WITH THE PATIENT AND THE SUPPORTING STAFF AT THE MOMENT OF THE TIME OUT IN THE PROCEDURE ROOM. USING A 25-GAUGE NEEDLE, TRIGGER POINTS WERE INJECTED AT THE RIGHT LOWER BACK AREA WITH A TOTAL OF 40 ML OF BUPIVACAINE 0.25% AND KENALOG 40 MG. THERE WAS NO EVIDENCE OF BLOOD, PARESTHESIA OR CEREBROSPINAL FLUID DURING THE PROCEDURE. THE PATIENT WAS SENT TO THE RECOVERY ROOM. THE PATIENT WAS MOVING THE EXTREMITIES AND DOING WELL. THERE WAS NO COMPLICATION DURING THE PROCEDURE POST PROCEDURE NOTE THE PATIENT WILL BE SEEN IN A FOLLOW UP IN THE NEXT FEW WEEKS. INSTRUCTIONS WERE GIVEN, QUESTIONS WERE ANSWERED, AND THE PATIENT EXPRESSED UNDERSTANDING AND AGREES WITH THE PLAN. I, RACQUEL FU, DOCUMENTED THE ABOVE INFORMATION ACTING A SCRIBE FOR DR. DOE. I HAVE REVIEWED THE ABOVE DOCUMENT, WRITTEN BY RACQUEL GRIERIBHuber AND I VERIFY THAT IT IS ACCURATE PROCEDURE CODES 93843 INJ TRIGGER POINT 1/2 MUSCL DISPOSITION & COMMUNICATION FOLLOW UP 3 WEEKS ELECTRONICALLY SIGNED BY JOSIE DOE MD ON 02/08/2017 AT 09:27 PM EDT DISCLAIMER : THIS IS A VISIT SUMMARY EXTRACTED FROM THE [employer] CHART. IT IS NOT A COPY OF THE [employer] PROGRESS NOTE. SHANTED
== END ==
LOC: M PAIN 13:20
PROVIDERS: ATTEND Anesthesiology
DX: G89.29 Other chronic pain (principal); M79.1 Myalgia; M54.5 Low back pain; E11.22 Type 2 diabetes mellitus with diabetic chronic kidney disease; I12.9 Hypertensive chronic kidney disease with stage 1 through stage 4 chronic kidney disease, or unspecified chronic kidney disease; N18.4 Chronic kidney disease, stage 4 (severe); G47.33 Obstructive sleep apnea (adult) (pediatric); J41.1 Mucopurulent chronic bronchitis; F41.9 Anxiety disorder, unspecified; E66.9 Obesity, unspecified; Z68.34 Body mass index [BMI] 34.0-34.9, adult; M19.90 Unspecified osteoarthritis, unspecified site; Z88.8 Allergy status to other drugs, medicaments and biological substances; Z88.1 Allergy status to other antibiotic agents; Z79.4 Long term (current) use of insulin; Z79.82 Long term (current) use of aspirin; Z79.891 Long term (current) use of opiate analgesic; Z99.2 Dependence on renal dialysis
CPT/HCPCS: 20552; J3301

== ENCOUNTER → 2017-02-18 | Outpatient (CLI) | payer MEDICARE, MEDICAID ==
[~2017-02-18] MED LIST changes: -BUPIVACAINE HCL 0.25% 10 ML VIAL As Ordered ONE; -BUPIVACAINE HCL 0.25% 30 ML VIAL As Ordered ONE; -TRIAMCINOLONE ACETONIDE SUSP 40 MG/ML VIAL (J3301) As Ordered ONE
--- NOTE | 2017-02-21 01:49 | ECWPNPC ---
PATIENT NAME: JOSE ROGERS : 1955 GENDER: FEMALE VISIT DATE: 02/18/2017 DISCHARGE DATE: 02/18/17927 VISIT LOCKED DATE TIME: PHYSICIAN: ESTELA JOLLEY PHYSICIAN PAGER NO: TEXT RL [phone] RESOURCE: ESTELA JOLLEY REASON FOR APPOINTMENT 1. POST TPI HISTORY OF PRESENT ILLNESS HISTORY OF PRESENT ILLNESS: 61 Y/O FEMALE REFERRED BY FOR CHRONIC LOW BACK PAIN AND NECK PAIN.HISTORY OF TWO LUMBAR SURGERIES 1979 AND 1990.HAS HAD CHRONIC LOW BACK SINCE 1990.HAS HAD NECK PAIN SINCE 1989.HAD CAUDAL EPIDURAL AT DR. AGOSTO OFFICE > 6 MOS. AGO WITH AGGREVATION IN PAIN.HERE FOR POST PROCEDURE F/U.HAD TPI ON 01-30-17.REPORTS ONE DAY OF IMPROVEMENT THEN PAIN RETURNED TO BASELINE.HAS HAD AGGREVATION IN PAIN PAST WEEK.WORST AREA OF PAIN IS RIGHT LOW BACK.DESCRIBES LOW BACK PAIN INTERMITTENT ACHING AND CONSTANT BURNING.PAIN HAS GOTTEN WORSE LATELY.RATING PAIN VAS 10/10. PAIN THE PATIENT DESCRIBES THE PAIN... THE PATIENT DESCRIBES THE PAIN... FALL RISK SCREENING: SCREENING :NO FALLS IN THE PAST YEAR CURRENT MEDICATIONS TAKING LANTUS 100 UNIT/ML SOLOSTAR PEN 48 SUBCUTANEOUS AT BEDTIME/ DX : 250.40 TAKING CRESTOR 20 MG TABLET 1 TABLET ORALLY AT BEDTIME TAKING LOPRESSOR 100 MG TABLET 1/2 TABLET ORALLY TWICE DAILY TAKING NEPHRO-GUILHERME 0.8 MG TABLET 1 TABLET ORALLY DAILY TAKING DRISDOL 50,000 UNITS TABLET 1 TAB ORAL EVERY OTHER WEEK TAKING AMIODARONE HCL 200 MG TABLET 1 TABLET ORALLY DAILY TAKING RENAGEL 800 MG TABLET 3 TABLET WITH MEALS ORALLY THREE TIMES A DAY TAKING ASPIRIN 325 MG TABLET 1 TABLET ORALLY ONCE A DAY TAKING CALCITRIOL 0.5 MCG CAPSULE 4 CAPSULE ORALLY THREE TIMES WEEKLY TAKING GLUCOSE STRIP (VERIO IQ) 1 .. 250.02 VITRO TWICE A DAY TAKING SPIRIVA HANDIHALER 18 MCG CAPSULE 1 CAPSULE INHALATION ONCE A DAY TAKING NEBULIZER/TUBING/MOUTHPIECE 1 KIT 1 TAB(S) 327.23 DAILY NEEDED TAKING LOVAZA 1 GM CAPSULE 1 CAPSULES ORALLY FOUR TIMES DAILY TAKING TRAZODONE HCL 100 MG TABLET 1 TABLET AT BEDTIME ORALLY AT BEDTIME TAKING SENSIPAR 30 MG TABLET 1 TABLET ORALLY ONCE WEEKLY TAKING LEVOTHYROXINE SODIUM 75 MCG TABLET 1 TABLET ON AN EMPTY STOMACH IN THE MORNING ORALLY ONCE A DAY TAKING ZOFRAN 4 MG TABLET 1 TAB(S) ORALLY EVERY EIGHT HOURS NEEDED TAKING ALBUTEROL SULFATE (2.5 MG/3ML) 0.083% NEBULIZATION SOLUTION 3 ML INHALATION QID PRN TAKING ONE TOUCH DELICA 33 GAUGE .. DIRECTED SUBCUTANEOUSLY TID, DX: 250.00 TAKING GLUCOMETER (VERIO IQ) 1 GLUCOMETER 250.0 VITRO TWICE A DAY TAKING SHOWER CHAIR WITHOUT WHEELS DX : 428.32, 585.5, V45.11 DIRECTED - DAILY USE TAKING NEBULIZER HJ=157.21 _ _ _ _ TAKING MAG-OXIDE 400 MG TABLET 1 TAB(S) ORALLY ONCE DAILY TAKING FLEXERIL 5 MG TABLET 1 TABLET ORALLY THREE TIMES A DAY NEEDED TAKING PRILOSEC 40MG 40 MG TABLET 1 TAB ORALLY DAILY TAKING INSULIN PEN NEEDLE 29G X 12MM MISCELLANEOUS (ULTRAFINE BD) DX : E11.29 SUBCUTANEOUSLY DAILY TAKING DIAZEPAM 5 MG TABLET 1 TABLET NEEDED ORALLY BID PRN (MDD #2) TAKING HYDROCODONE-ACETAMINOPHEN 5-325 MG TABLET 1 TAB ORALLY TWICE DAILY MDD 2 NOT-TAKING VOLTAREN 1 % GEL TO LEFT ELBOW TRANSDERMAL TWICE DAILY NEEDED, NOTES: NONE MEDICATION LIST REVIEWED AND RECONCILED WITH THE PATIENT PAST MEDICAL HISTORY DM II WITH NEPHROPATHY STAGE V CKD (ON DIALYSIS WITH [facility]) ATRIAL FLUTTER (NO ANTICOAGULATION B/C OF BLEED - MANAGED BY TRA). H/O INTRAVENTRICULAR BLEED RELATED TO COUMADIN ([facility]) 06/03-PREVIOUSLY FOLLOWED BY DR TEIXEIRA HTN/HHD SECONDARY HYPERPARATHYROIDISM ANEMIA OF CHRONIC DISEASE ANXIETY OBESITY PRABHJOT (INTOLERANT OF BIPAP)- [facility] PUL ADENOSINE NUCLEAR STRESS @ [facility] 09/15/07 - NORMAL, NO ISCHEMIA OR INFARCTION NOTED CAROTID ULTRASOUND NO SIGNIFICANT STENOSIS 01/2013 ECHOCARDIOGRAM [facility] 07/09 - [facility] WITH PRESERVED SYSTOLIC FX.EF 75% THYROID NODULE/FNA NEG PER DR ELIAS XR RT SHOULDER 11/07 MOD DEGEN CHANGE XR C/T SPINE 11/07 MILD DEGEN CHANGE MEMORY LOSS SINCE PREV INTRAVENTRICULAR BLEED MRI BRAIN 01/07 MINIMAL SMALL VESSEL DISEASE/AREAS OF HEMOSIDERIN AND POSTERIOR RIGHT OCCIPITAL AND TEMPORAL LOBE SECONDARY TO PREVIOUS HEMORRHAGE/MINIMAL VOLUME LOSS COPD- [facility] PULM: RIDGE BAKER VOCAL CORD DYSFUNCTION- REFERRED TO ENT [facility] 09/10 DIFFUSE FIBROFATTY INFILTRATION LIVER. ARTHRITIS [facility] GATIFLOXACIN: SWOLLEN TONGUE AND MOUTH: ALLERGY TEQUIN: ANAPHYLAXIS: ALLERGY AZITHROMYCIN: DYSPNEA, FACE AND LIPS SWELLING AND TINGLING - SEEN IN THE ER 07/2016: ALLERGY SURGICAL HISTORY C-SECTIONS 1977, 1985 LUMBAR DISCECTOMY 1979, 1990 BREAST BX - FIBROCYSTIC 04/2000 COLONOSCOPY 2001 HYSTERECTOMY ([facility]) - DONE FOR HEAVY BLEEDING 2002 NASAL CAUTERY ([facility]) 2002 "EYE PROCEDURE" ([facility] [place]) 2002 VENTRICULOSTOMY ([facility]) 07/03 FISTULA FOR DIALYSIS ([facility]) FNA THYROID NODULE- DR ELIAS 08/09 COLONOSCOPY 04/24/14 - STACY 4 TEETH PULLED -01/2017 HOSPITALIZATION/MAJOR DIAGNOSTIC PROCEDURE INTERVENTRICULAR BLEED ([facility]) 2007 CONCERN FOR RE-BLEED (NEGATIVE) AT [facility] 2009 WEAKNESS/BACK PAIN 03/2010 LOWER ABD PAIN/CONSTIPATION ([facility]) 06/2014 PNEUMONIA 07/25-07/31/16 REVIEW OF SYSTEMS REVIEWED BY: PROVIDER: ESTELA OHARA . CONSTITUTIONAL: ANY CHANGE IN YOUR MEDICAL CONDITION? NO . CHILLS NO . FEVER NO . INFECTION: DO YOU HAVE NEW INFECTIONS? NO . DO YOU HAVE HISTORY OF MRSA? NO . MUSCULOSKELETAL: ANY NEW PATTERNS OF PAIN OR NUMBNESS? NO, PT STATES SHE HAD TPI TO RIGHT LOWER BACK AREA 02/09/17. PRE-PROCEDURE PAIN WAS 7-1-/10, POST PROCEDURE PAIN WAS 0/10, THEN THAT NIGHT 10/10. PAIN HAS BEEN CONSTANT 10/10 SINCE THEN . GASTROENTEROLOGY: ANY NEW CHANGE IN BOWEL CONTROL? NO . GENITOURINARY: ANY NEW CHANGE IN BLADDER CONTROL? NO, PT STATES SHE GETS DIALYSIS EVERY , , THU . IS THERE A CHANCE YOU COULD BE ? NO . HEMATOLOGY/LYMPH: DO YOU TAKE ANY BLOOD THINNERS? (FOR EXAMPLE- COUMADIN, PLAVIX, AGGRENOX, PLATEL, PRADAXA, OR XARELTO) NO . WHEN WAS YOUR LAST DOSE? DATE: TIME: . NEUROLOGY: HAVE YOU FALLEN IN THE PAST 6 MONTHS? NO . ANY NEW EXTREMITY NUMBNESS OR WEAKNESS? NO . CARDIOLOGY: DO YOU HAVE A PACEMAKER OR DEFIBRILLATOR? NO . RESPIRATORY: HAVE YOU BEEN SICK IN THE PAST WEEK? NO . FEVER NO . FLU LIKE SYMPTOMS? NO . COUGH NO . INTEGUMENTARY: DO YOU HAVE ANY RASHES OR OPEN SORES? NO . ALLERGIC/IMMUNO: ARE YOU ALLERGIC TO SHELLFISH OR IV DYE? NO . ANY NEW ALLERGIES? NO . PSYCHIATRIC: DO YOU HAVE THOUGHTS OF HURTING YOURSELF OR SOMEONE ELSE? NO . ARE YOU ABUSED, NEGLECTED, OR IN AN UNSAFE ENVIRONMENT? NO . ENDOCRINOLOGY: ARE YOU DIABETIC? YES . OTHER: DO YOU NEED ANY PRESCRIPTIONS? NO . IF YES, PLEASE LIST: ____ . ANY NEW PROBLEMS WITH YOUR MEDICATIONS? NO . WHEN DID YOU LAST EAT? ____ . WHEN DID YOU LAST DRINK? ____ . WHAT DID YOU LAST DRINK? ____ . NAME OF PERSON DRIVING YOU HOME? ____ . DO YOU HAVE ANY OTHER QUESTIONS OR CONCERNS NO . VITAL SIGNS WT 190.8 LBS, HT 62 IN, BMI 34.89 INDEX, BP 106/62 MM HG, HR 63 /MIN, RR 16 /MIN, TEMP 98.2 F, OXYGEN SAT % 93%, SAFE IN ENV? (Y/N) Y, NA INITIALS SC 08:49, REVIEWED BY: EM. EXAMINATION GENERAL EXAMINATION: GENERAL APPEARANCE:COMFORTABLE. PSYCHAFFECT NORMAL, GOOD EYE CONTACT. NECK:NO LYMPHADENOPATHY. LUNGS:LUNG ROMERO ARE CLEAR TO AUSCULTATION BILATERALLY. GOOD MOVEMENT OF AIR. HEART:S1, S2 IN A REGULAR RATE AND RHYTHM. NO SIGNIFICANT MURMURS, RUBS OR GALLOPS NOTED. BACK:PERILUMBAR TENDERNESS, BILATERAL R>L SI JOINT TENDERNESS, TRAPEZIOUS TENDERNESS. MRI L/S SPINE [id number]. 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 PROCEDURE CODES FA211 ESTABILISHED PATIENT [facility] CHARGE G3040 BMI CALC BUT PT NOT ELIG F/U PLAN G8783 BP SCR PRFRM RCMDD DEFIND SCR INTVL G8730 PAIN ASSESS POS TOOL F/U PLAN DOC 3016F PT SCRND [place] USE 1036F TOBACCO NON-USER G8427 DOC MEDS VERIFIED W/[place] 3288F FALL RISK ASSESSMENT DOCD DISPOSITION & COMMUNICATION FOLLOW UP 2 WEEKS POST PROC. (REASON: RIGHT SIJ) ELECTRONICALLY SIGNED BY MAYDA SMITH ON 02/19/2017 AT 09:40 AM EDT DISCLAIMER : THIS IS A VISIT SUMMARY EXTRACTED FROM THE [employer] CHART. IT IS NOT A COPY OF THE [employer] PROGRESS NOTE. JUAN
== END ==
LOC: M PAIN 08:40
PROVIDERS: ATTEND Nurse Practitioner Family
DX: G89.29 Other chronic pain (principal); M47.816 Spondylosis without myelopathy or radiculopathy, lumbar region; M46.1 Sacroiliitis, not elsewhere classified; E11.22 Type 2 diabetes mellitus with diabetic chronic kidney disease; I12.9 Hypertensive chronic kidney disease with stage 1 through stage 4 chronic kidney disease, or unspecified chronic kidney disease; N18.9 Chronic kidney disease, unspecified; D63.8 Anemia in other chronic diseases classified elsewhere; G47.33 Obstructive sleep apnea (adult) (pediatric); E03.9 Hypothyroidism, unspecified; F41.9 Anxiety disorder, unspecified; E66.9 Obesity, unspecified; Z68.34 Body mass index [BMI] 34.0-34.9, adult; J44.9 Chronic obstructive pulmonary disease, unspecified; M19.90 Unspecified osteoarthritis, unspecified site; K76.0 Fatty (change of) liver, not elsewhere classified; Z88.1 Allergy status to other antibiotic agents; Z88.8 Allergy status to other drugs, medicaments and biological substances; Z79.4 Long term (current) use of insulin; Z79.82 Long term (current) use of aspirin; Z79.891 Long term (current) use of opiate analgesic; Z79.899 Other long term (current) drug therapy

== ENCOUNTER 2017-03-02 19:16 | Emergency (ER) | payer MEDICARE, MEDICAID ==
[~2017-03-02] VITALS: Ht 154.9 cm; Wt 86.0 kg
[2017-03-02] MEDS ORDERED: ONDANSETRON 4MG/2ML VIAL (J2405) IV ONE (21:15)
[2017-03-02] MEDS: MORPHINE 4 MG/ML 1ML SYRINGE IV PRN (21:53)
[2017-03-02 22:15] LABS: ALBUMIN 3.8 GM/DL (3.2-5.2); ALBUMIN/GLOBULIN RATIO 0.9 (1.00-1.93); BILIRUBIN,DIRECT 0.1 MG/DL (0.0-0.2); BILIRUBIN,TOTAL 0.4 MG/DL (0.2-1.0); CALCIUM LEVEL 8.5 MG/DL (8.8-10.2); CREATININE FOR GFR 8.65 MG/DL (0.55-1.02); POTASSIUM SERUM 5.1 MEQ/L (3.5-5.1)
[2017-03-02] MEDS ORDERED: ISOVUE-370 76% 100ML VIAL (Q9967) As Ordered ONE (22:23)
[2017-03-02 23:13] LABS: BASO % 0.7 % (0.0-1.0); EOS # 0.3 K/mm3 (0.0-0.50); EOS % 3.7 % (0.0-3.0); LARGE UNSTAINED CELL # 0.1 K/mm3 (0.0-0.4); LARGE UNSTAINED CELL % 1.2 % (0.0-4.0); LYMPH # 1.2 K/mm3 (1.5-4.5); LYMPH % 14.6 % (24.0-44.0); MEAN CORPUSCULAR HEMOGLOBIN 32.5 pg (27.0-33.0); MEAN CORPUSCULAR VOLUME 98.5 fl (80.0-96.0); MONO # 0.4 K/mm3 (0.0-0.8); MONO % 5.7 % (0.0-5.0); NEUTROPHILS # 5.7 K/mm3 (1.8-7.7); NEUTROPHILS % 74.1 % (36.0-66.0); PLATELET COUNT, AUTOMATED 117 k/mm3 (150-450); RED CELL DISTRIBUTION WIDTH 14.3 % (11.5-14.5); WHITE BLOOD COUNT 7.6 K/mm3 (4.0-10.0)
--- NOTE | 2017-03-02 23:50 | REPUSA ---
CLINICAL HISTORY: Abdominal pain. TECHNIQUE: CT abdomen and pelvis following administration of IV contrast. Total DLP 772.4 mGy*cm COMPARISON: July 15, 2014. CT ABDOMEN WITH CONTRAST: Lung bases: No lung base infiltrate or effusion. Left basilar atelectasis. Liver: 18 cm length. No intrahepatic ductal dilation. Mildly enlarged lymph nodes are noted in the po rta hepatis measuring up to 1.8 cm. Gallbladder: Normally distended. Pancreas: No pancreatic duct dilation. Bowel loops: Nondistended. Spleen: 13.3 cm length. Calcified granulomas. Adrenals: Normal size. Right kidney: Mild right hydronephrosis and hydroureter the level of the bladder, without visible sto brittany.. Left kidney: Small nonobstructive left renal stones without hydronephrosis. Aorta: Normal caliber. Peritoneum: No free air. Lumbar spine: Degenerative spondylotic changes at multiple levels. CT PELVIS WITH CONTRAST: Colon: Scattered diverticula without evidence of diverticulitis. Appendix: The appendix is not confidently identified, though there are no findings in the right lower quadrant to suggest an inflammatory process or appendicitis. Bladder: Contracted. Uterus: Hysterectomy. Peritoneum: No fluid. IMPRESSION: 1. Mild hepatosplenomegaly. 2. Mild right sided hydronephrosis to the level of the bladder, without visible stones. This may repr esent a recently passed stone. Correlate with urinalysis.
[2017-03-03] MEDS: MORPHINE 4 MG/ML 1ML SYRINGE IV PRN (00:01)
[2017-03-03 00:41] VITALS: BP 159/73
--- NOTE | 2017-03-03 09:49 | ED PDOC ---
Post-Departure Follow-Up radiology report faxed to Sarah Beth Colon MD Mar 03, 2017 09:49
== END 2017-03-03 01:10 | disposition home or self-care (01) ==
LOC: EDBD 19:16 → M ED 19:16
DX: S30.1XXA Contusion of abdominal wall, initial encounter (principal); I25.10 Atherosclerotic heart disease of native coronary artery without angina pectoris; X58.XXXA Exposure to other specified factors, initial encounter; Y92.9 Unspecified place or not applicable; Y99.9 Unspecified external cause status; Y93.9 Activity, unspecified; Z99.2 Dependence on renal dialysis; Z88.8 Allergy status to other drugs, medicaments and biological substances; Z79.82 Long term (current) use of aspirin; Z79.899 Other long term (current) drug therapy; Z79.4 Long term (current) use of insulin
CPT/HCPCS: 74177; 80048; 80076; 83690; 85025; 96374; 96375; 96376; 99284; J2405; Q9967

== ENCOUNTER → 2017-03-04 | Outpatient (CLI) | payer MEDICARE, MEDICAID ==
[~2017-03-04] MED LIST changes: +BUPIVACAINE HCL 0.25% 30 ML VIAL As Ordered ONE; +ISOVUE-M 300 61% 15ML VIAL (Q9967) As Ordered ONE; +LIDOCAINE 1% SDV INJ 30 ML VIAL As Ordered ONE; +TRIAMCINOLONE ACETONIDE SUSP 40 MG/ML VIAL (J3301) As Ordered ONE; +diazePAM 5 MG TAB As Ordered ONE; +oxyCODONE 5MG TAB As Ordered ONE
--- NOTE | 2017-03-05 10:41 | REP ---
FLUOROSCOPIC GUIDANCE FOR BILATERAL SI JOINT INJECTION: 03/04/2017 CLINICAL HISTORY: Low back pain. FINDINGS: A single image from C-arm fluoroscopy provided to Dr. Gómez of the pain clinic for bilateral SI joint injection. Initial image on the left with contrast adjacent to the needle and the second image on the right with contrast adjacent to the needle, each is in the lower one third of the SI joint. FLUOROSCOPY TIME: 28 seconds. Signed by Guillermo Barnes MD 03/06/2017 10:50 A
--- NOTE | 2017-03-24 01:34 | ECWPNPC ---
PATIENT NAME: JOSE ROGERS : 1955 GENDER: FEMALE VISIT DATE: 03/04/2017 DISCHARGE DATE: 03/04/17 1349 VISIT LOCKED DATE TIME: PHYSICIAN: JOSIE DOE PHYSICIAN PAGER NO: TEXT TO [phone] RESOURCE: JOSIE DOE REASON FOR APPOINTMENT 1. RANDEE SIJ HISTORY OF PRESENT ILLNESS HISTORY OF PRESENT ILLNESS: PAIN THE PATIENT DESCRIBES THE PAIN... FALL RISK SCREENING: SCREENING :NO FALLS IN THE PAST YEAR CURRENT MEDICATIONS TAKING LANTUS 100 UNIT/ML SOLOSTAR PEN 48 SUBCUTANEOUS AT BEDTIME/ DX : 250.40, NOTES: 03/03/172129 TAKING CRESTOR 20 MG TABLET 1 TABLET ORALLY AT BEDTIME, NOTES: 03/03/172129 TAKING LOPRESSOR 100 MG TABLET 1/2 TABLET ORALLY TWICE DAILY, NOTES: 03/03/171699 TAKING NEPHRO-GUILHERME 0.8 MG TABLET 1 TABLET ORALLY DAILY, NOTES: 03/03/17 1300 TAKING DRISDOL 50,000 UNITS TABLET 1 TAB ORAL EVERY OTHER WEEK, NOTES: 1 WEEK AGO TAKING AMIODARONE HCL 200 MG TABLET 1 TABLET ORALLY DAILY, NOTES: 03/03/17 1300 TAKING RENAGEL 800 MG TABLET 3 TABLET WITH MEALS ORALLY THREE TIMES A DAY, NOTES: 03/03/17 1700 TAKING ASPIRIN 325 MG TABLET 1 TABLET ORALLY ONCE A DAY, NOTES: 03/03/17 1300 TAKING CALCITRIOL 0.5 MCG CAPSULE 4 CAPSULE ORALLY THREE TIMES WEEKLY, NOTES: 03/03/17 0900 TAKING GLUCOSE STRIP (VERIO IQ) 1 .. 250.02 VITRO TWICE A DAY TAKING SPIRIVA HANDIHALER 18 MCG CAPSULE 1 CAPSULE INHALATION ONCE A DAY, NOTES: NONE RECENT TAKING NEBULIZER/TUBING/MOUTHPIECE 1 KIT 1 TAB(S) 327.23 DAILY NEEDED TAKING LOVAZA 1 GM CAPSULE 1 CAPSULES ORALLY FOUR TIMES DAILY, NOTES: 03/03/17 1300 TAKING TRAZODONE HCL 100 MG TABLET 1 TABLET AT BEDTIME ORALLY AT BEDTIME, NOTES: 03/03/17 2100 TAKING SENSIPAR 30 MG TABLET 1 TABLET ORALLY ONCE WEEKLY, NOTES: 02/27/17 TAKING LEVOTHYROXINE SODIUM 75 MCG TABLET 1 TABLET ON AN EMPTY STOMACH IN THE MORNING ORALLY ONCE A DAY, NOTES: 03/04/17 0900 TAKING ZOFRAN 4 MG TABLET 1 TAB(S) ORALLY EVERY EIGHT HOURS NEEDED, NOTES: 03/02/17 TAKING ALBUTEROL SULFATE (2.5 MG/3ML) 0.083% NEBULIZATION SOLUTION 3 ML INHALATION QID PRN, NOTES: NONE RECENT TAKING ONE TOUCH DELICA 33 GAUGE .. DIRECTED SUBCUTANEOUSLY TID, DX: 250.00 TAKING GLUCOMETER (VERIO IQ) 1 GLUCOMETER 250.0 VITRO TWICE A DAY TAKING SHOWER CHAIR WITHOUT WHEELS DX : 428.32, 585.5, V45.11 DIRECTED - DAILY USE TAKING NEBULIZER RV=860.21 _ _ _ _ TAKING MAG-OXIDE 400 MG TABLET 1 TAB(S) ORALLY ONCE DAILY, NOTES: 03/03/17 1300 TAKING FLEXERIL 5 MG TABLET 1 TABLET ORALLY THREE TIMES A DAY NEEDED, NOTES: 03/03/17 2100 TAKING PRILOSEC 40MG 40 MG TABLET 1 TAB ORALLY DAILY, NOTES: 03/03/17 1300 TAKING INSULIN PEN NEEDLE 29G X 12MM MISCELLANEOUS (ULTRAFINE BD) DX : E11.29 SUBCUTANEOUSLY DAILY TAKING DIAZEPAM 5 MG TABLET 1 TABLET NEEDED ORALLY BID PRN (MDD #2), NOTES: 03/03/17 2100 TAKING HYDROCODONE-ACETAMINOPHEN 5-325 MG TABLET 1 TAB ORALLY TWICE DAILY MDD 2, NOTES: NONE RECENT NOT-TAKING VOLTAREN 1 % GEL TO LEFT ELBOW TRANSDERMAL TWICE DAILY NEEDED, NOTES: NONE MEDICATION LIST REVIEWED AND RECONCILED WITH THE PATIENT PAST MEDICAL HISTORY DM II WITH NEPHROPATHY STAGE V CKD (ON DIALYSIS WITH [facility]) ATRIAL FLUTTER (NO ANTICOAGULATION B/C OF BLEED - MANAGED BY TRA). H/O INTRAVENTRICULAR BLEED RELATED TO COUMADIN ([facility]) 06/03-PREVIOUSLY FOLLOWED BY DR TEIXEIRA HTN/HHD SECONDARY HYPERPARATHYROIDISM ANEMIA OF CHRONIC DISEASE ANXIETY OBESITY PRABHJOT (INTOLERANT OF BIPAP)- [facility] PUL [facility] - NORMAL, NO ISCHEMIA OR INFARCTION NOTED CAROTID ULTRASOUND NO SIGNIFICANT STENOSIS 01/2013 ECHOCARDIOGRAM [facility] 07/09 - [facility] WITH PRESERVED SYSTOLIC FX.EF 75% THYROID NODULE/FNA NEG PER DR ELIAS XR RT SHOULDER 11/07 MOD DEGEN CHANGE XR C/T SPINE 11/07 MILD DEGEN CHANGE MEMORY LOSS SINCE PREV INTRAVENTRICULAR BLEED MRI BRAIN 01/07 MINIMAL SMALL VESSEL DISEASE/AREAS OF HEMOSIDERIN AND POSTERIOR RIGHT OCCIPITAL AND TEMPORAL LOBE SECONDARY TO PREVIOUS HEMORRHAGE/MINIMAL VOLUME LOSS COPD- [facility] PULM: RIDGE BAKER VOCAL CORD DYSFUNCTION- REFERRED TO ENT [facility] 09/10 DIFFUSE FIBROFATTY INFILTRATION LIVER. ARTHRITIS BACK PAIN/NECK PAIN- [facility] ALLERGIES GATIFLOXACIN: SWOLLEN TONGUE AND MOUTH: ALLERGY TEQUIN: ANAPHYLAXIS: ALLERGY AZITHROMYCIN: DYSPNEA, FACE AND LIPS SWELLING AND TINGLING - SEEN IN THE ER 07/2016: ALLERGY REVIEW OF SYSTEMS REVIEWED BY: PROVIDER: . CONSTITUTIONAL: ANY CHANGE IN YOUR MEDICAL CONDITION? YES, RIGHT LOWER QUAD PAIN--SEEN IN ER 03/02/17 NO DEFINATIVE DIAGNOSIS--WAS GIVEN MORPHINE. HAD ABD CT AND BLD WORK DONE. . CHILLS NO . FEVER NO . INFECTION: DO YOU HAVE NEW INFECTIONS? NO . DO YOU HAVE HISTORY OF MRSA? NO . MUSCULOSKELETAL: ANY NEW PATTERNS OF PAIN OR NUMBNESS? NO . GASTROENTEROLOGY: ANY NEW CHANGE IN BOWEL CONTROL? NO . GENITOURINARY: ANY NEW CHANGE IN BLADDER CONTROL? NO . IS THERE A CHANCE YOU COULD BE ? NO . HEMATOLOGY/LYMPH: DO YOU TAKE ANY BLOOD THINNERS? (FOR EXAMPLE- COUMADIN, PLAVIX, AGGRENOX, PLATEL, PRADAXA, OR XARELTO) YES, HEPARIN DURING DIALYSIS . WHEN WAS YOUR LAST DOSE? DATE: TIME: 03/03/17 A.M. . NEUROLOGY: HAVE YOU FALLEN IN THE PAST 6 MONTHS? NO . ANY NEW EXTREMITY NUMBNESS OR WEAKNESS? NO . CARDIOLOGY: DO YOU HAVE A PACEMAKER OR DEFIBRILLATOR? NO . RESPIRATORY: HAVE YOU BEEN SICK IN THE PAST WEEK? NO . FEVER NO . FLU LIKE SYMPTOMS? NO . COUGH NO . INTEGUMENTARY: DO YOU HAVE ANY RASHES OR OPEN SORES? NO . ALLERGIC/IMMUNO: ARE YOU ALLERGIC TO SHELLFISH OR IV DYE? NO . ANY NEW ALLERGIES? NO . PSYCHIATRIC: DO YOU HAVE THOUGHTS OF HURTING YOURSELF OR SOMEONE ELSE? NO . ARE YOU ABUSED, NEGLECTED, OR IN AN UNSAFE ENVIRONMENT? NO . ENDOCRINOLOGY: ARE YOU DIABETIC? YES, DIDN'T DO FSBS THIS A.M.&NBSP;. OTHER: DO YOU NEED ANY PRESCRIPTIONS? NO . IF YES, PLEASE LIST: ____ . ANY NEW PROBLEMS WITH YOUR MEDICATIONS? NO . WHEN DID YOU LAST EAT? 03/03/17 P.M. . WHEN DID YOU LAST DRINK? 03/04/17 0900 . WHAT DID YOU LAST DRINK? SIP OF GINGERALE . NAME OF PERSON DRIVING YOU HOME? [employer] . DO YOU HAVE ANY OTHER QUESTIONS OR CONCERNS NO . VITAL SIGNS WT 192 LBS, HT 62 IN, BMI 35.11 INDEX, BP 124/65 MM HG, HR 73 /MIN, RR 16 /MIN, TEMP 97.2 F, OXYGEN SAT % 91%, NA INITIALS AW 1055, REVIEWED BY: AD. ASSESSMENTS SACROILIITIS, NOT ELSEWHERE CLASSIFIED - M46.1 (PRIMARY) PROCEDURES PN SI PRE PROCEDURE DIAGNOSIS SACROILIITIS, SACROILIAC JOINT DYSFUNCTION POST PROCEDURE DIAGNOSIS SACROILIITIS, SACROILIAC JOINT DYSFUNCTION PROCEDURE BILATERAL SACROILIAC JOINT BLOCK SURGEON DR. JOSIE DOE OXYGEN THERAPIST NONE ANESTHESIA LOCAL PRE PROCEDURE NOTE PATIENT WITH HISTORY OF CHRONIC LOW BACK PAIN. I EVALUATED THE PATIENT AND REVIEWED THE CHART. I WENT OVER THE RISKS, ALTERNATIVES, AND BENEFITS ASSOCIATED WITH THIS PROCEDURE. THE PATIENT WOULD LIKE TO PROCEED AND GAVE CONSENT TO PERFORM THE PROCEDURE. THE PATIENT DENIES UNEXPLAINABLE WEIGHT LOSS, FEVER, CHILLS, OR NEW CHANGES IN URINARY OR BOWEL CONTROL DESCRIPTION OF PROCEDURE THE PATIENT WAS BROUGHT TO THE PROCEDURE ROOM AND PLACED IN THE PRONE POSITION. THE LUMBOSACRAL AREA WAS CLEANED WITH CHLORAPREP SOLUTION AND DRAPED ASEPTICALLY. THE PROCEDURE WAS DONE UNDER STERILE CONDITIONS. I CHECKED LATERALITY AND THE LEVEL WHERE THE PROCEDURE WAS GOING TO BE PERFORMED WITH THE PATIENT AND THE SUPPORTING STAFF AT THE MOMENT OF THE TIME OUT IN THE PROCEDURE ROOM. UNDER FLUOROSCOPIC GUIDANCE, TARGET POINT WAS SELECTED AT THE LOWER BORDER OF THE RIGHT AND LEFT SACROILIAC JOINT. TARGET POINT WAS SELECTED AFTER MEDIAL ROTATION AND TILT OF THE MAGNIFIER OF THE C-ARM. LIDOCAINE WAS USED TO NUMB THE SKIN AND SUBCUTANEOUS TISSUE BELOW IT. A SPINAL NEEDLE, 22-GAUGE, WAS ADVANCED UNDER FLUOROSCOPIC GUIDANCE AND FOLLOWING PATIENT FEEDBACK UNTIL THE TARGET AREA WAS TOUCHED. THE POSITION OF THE NEEDLE WAS VERIFIED WITH AP AND LATERAL VIEWS. AFTER PROPER POSITION OF THE NEEDLE WAS ACHIEVED, ISOVUE M DYE 30%, 0.25 ML, WAS INJECTED SHOWING SPREAD OF THE DYE. THEN, A SOLUTION OF 20 MG OF KENALOG WAS INJECTED IN RIGHT JOINT WITH 3 ML OF BUPIVACAINE 0.125%. THERE WAS NO EVIDENCE OF BLOOD, PARESTHESIA OR CEREBROSPINAL FLUID DURING THE PROCEDURE. THE PATIENT WAS SENT TO THE RECOVERY ROOM. THE PATIENT WAS MOVING THE EXTREMITIES AND DOING WELL. THERE WAS NO COMPLICATION DURING THE PROCEDURE. FLUOROSCOPY TIME WAS 28 SECONDS POST PROCEDURE NOTE THE PATIENT WILL BE SEEN IN A FOLLOW UP IN THE NEXT FEW WEEKS. INSTRUCTIONS WERE GIVEN, QUESTIONS WERE ANSWERED, AND THE PATIENT EXPRESSED UNDERSTANDING AND AGREED WITH THE PLAN. I, RACQUEL FU, DOCUMENTED THE ABOVE INFORMATION ACTING A SCRIBE FOR DR. DOE. I HAVE REVIEWED THE ABOVE DOCUMENT, WRITTEN BY RACQUEL FU SCRIBE AND I VERIFY THAT IT IS [facility] FLUORO GUIDANCE (PAIN)[id number] PROCEDURE CODES 10261 INJECT SACROILIAC JOINT 6045F RADXPS IN END [id number] PXD DISPOSITION & COMMUNICATION FOLLOW UP 3 WEEKS ELECTRONICALLY SIGNED BY JOSIE DOE MD ON 03/23/2017 AT 11:41 AM EDT DISCLAIMER : THIS IS A VISIT SUMMARY EXTRACTED FROM THE [employer] CHART. IT IS NOT A COPY OF THE [employer] PROGRESS NOTE. MTDRoman
== END ==
LOC: M PAIN 11:00
PROVIDERS: ATTEND Anesthesiology
DX: G89.29 Other chronic pain (principal); M46.1 Sacroiliitis, not elsewhere classified; M53.88 Other specified dorsopathies, sacral and sacrococcygeal region; E11.9 Type 2 diabetes mellitus without complications; I12.0 Hypertensive chronic kidney disease with stage 5 chronic kidney disease or end stage renal disease; N18.5 Chronic kidney disease, stage 5; Z99.2 Dependence on renal dialysis; G47.33 Obstructive sleep apnea (adult) (pediatric); J43.9 Emphysema, unspecified; Z88.8 Allergy status to other drugs, medicaments and biological substances; Z88.1 Allergy status to other antibiotic agents
CPT/HCPCS: G0260; J3301; Q9967

== ENCOUNTER → 2017-04-20 | Outpatient (CLI) | payer MEDICARE, MEDICAID ==
[~2017-04-20] MED LIST changes: -BUPIVACAINE HCL 0.25% 30 ML VIAL As Ordered ONE; -ISOVUE-M 300 61% 15ML VIAL (Q9967) As Ordered ONE; -LIDOCAINE 1% SDV INJ 30 ML VIAL As Ordered ONE; -TRIAMCINOLONE ACETONIDE SUSP 40 MG/ML VIAL (J3301) As Ordered ONE; -diazePAM 5 MG TAB As Ordered ONE; -oxyCODONE 5MG TAB As Ordered ONE
--- NOTE | 2017-04-21 00:36 | ECWPNPC ---
PATIENT NAME: JOSE ROGERS : 1955 GENDER: FEMALE VISIT DATE: 04/20/2017 DISCHARGE DATE: 04/20/17 1122 VISIT LOCKED DATE TIME: PHYSICIAN: ESTELA JOLLEY PHYSICIAN PAGER NO: TEXT TO [phone] RESOURCE: ESTELA JOLLEY REASON FOR APPOINTMENT 1. POST PROCEDURE HISTORY OF PRESENT ILLNESS HISTORY OF PRESENT ILLNESS: HERE FOR POST PRICEDURE F/U.HAD RIGHT SIJ ON 03-04-17.REPORTS>75% IMPROVEMENT IN PAIN POST PROCEDURE FOR APPROXIMATLEY 6 WEEKS POST PROCEDURE.PAIN HAS RETURNED.RATING RIGHT LOW BACK PAIN 8/10 VAS.PAIN IS AGGREVATED BY LIFTING OR BENDING.RELIEVED SOMEWHAT WITH REST. PAIN THE PATIENT DESCRIBES THE PAIN... FALL RISK SCREENING: SCREENING :NO FALLS IN THE PAST YEAR CURRENT MEDICATIONS TAKING LANTUS 100 UNIT/ML SOLOSTAR PEN 48 SUBCUTANEOUS AT BEDTIME/ DX : 250.40, NOTES: 03/03/172129 TAKING CRESTOR 20 MG TABLET 1 TABLET ORALLY AT BEDTIME, NOTES: 03/03/172129 TAKING LOPRESSOR 50 MG TABLET ORALLY TWICE DAILY, NOTES: 03/03/17 1700 TAKING NEPHRO-GUILHERME 0.8 MG TABLET 1 TABLET ORALLY DAILY, NOTES: 03/03/17 1300 TAKING DRISDOL 50,000 UNITS TABLET 1 TAB ORAL EVERY OTHER WEEK, NOTES: 1 WEEK AGO TAKING AMIODARONE HCL 200 MG TABLET 1 TABLET ORALLY DAILY, NOTES: 03/03/17 1300 TAKING RENAGEL 800 MG TABLET 3 TABLET WITH MEALS ORALLY THREE TIMES A DAY, NOTES: 03/03/17 1700 TAKING ASPIRIN 325 MG TABLET 1 TABLET ORALLY ONCE A DAY, NOTES: 03/03/17 1300 TAKING CALCITRIOL 0.5 MCG CAPSULE 2 CAPSULE ORALLY THREE TIMES WEEKLY, NOTES: 03/03/17 0900 TAKING GLUCOSE STRIP (VERIO IQ) 1 .. 250.02 VITRO TWICE A DAY TAKING SPIRIVA HANDIHALER 18 MCG CAPSULE 1 CAPSULE INHALATION ONCE A DAY, NOTES: NONE RECENT TAKING NEBULIZER/TUBING/MOUTHPIECE 1 KIT 1 TAB(S) 327.23 DAILY NEEDED TAKING LOVAZA 1 GM CAPSULE 1 CAPSULES ORALLY FOUR TIMES DAILY, NOTES: 03/03/17 1300 TAKING TRAZODONE HCL 100 MG TABLET 1 TABLET AT BEDTIME ORALLY AT BEDTIME, NOTES: 03/03/17 2100 TAKING SENSIPAR 30 MG TABLET 1 TABLET ORALLY ONCE WEEKLY, NOTES: 02/27/17 TAKING LEVOTHYROXINE SODIUM 75 MCG TABLET 1 TABLET ON AN EMPTY STOMACH IN THE MORNING ORALLY ONCE A DAY, NOTES: 03/04/17 0900 TAKING ZOFRAN 4 MG TABLET 1 TAB(S) ORALLY EVERY EIGHT HOURS NEEDED, NOTES: 03/02/17 TAKING ALBUTEROL SULFATE (2.5 MG/3ML) 0.083% NEBULIZATION SOLUTION 3 ML INHALATION QID PRN, NOTES: NONE RECENT TAKING ONE TOUCH DELICA 33 GAUGE .. DIRECTED SUBCUTANEOUSLY TID, DX: 250.00 TAKING GLUCOMETER (VERIO IQ) 1 GLUCOMETER 250.0 VITRO TWICE A DAY TAKING SHOWER CHAIR WITHOUT WHEELS DX : 428.32, 585.5, V45.11 DIRECTED - DAILY USE TAKING NEBULIZER EQ=256.21 _ _ _ _ TAKING MAG-OXIDE 400 MG TABLET 1 TAB(S) ORALLY ONCE DAILY, NOTES: 03/03/17 1300 TAKING FLEXERIL 5 MG TABLET 1 TABLET ORALLY THREE TIMES A DAY NEEDED, NOTES: 03/03/17 2100 TAKING PRILOSEC 40MG 40 MG TABLET 1 TAB ORALLY DAILY, NOTES: 03/03/17 1300 TAKING INSULIN PEN NEEDLE 29G X 12MM MISCELLANEOUS (ULTRAFINE BD) DX : E11.29 SUBCUTANEOUSLY DAILY TAKING DIAZEPAM 5 MG TABLET 1 TABLET NEEDED ORALLY BID PRN (MDD #2), NOTES: 03/03/17 2100 TAKING HYDROCODONE-ACETAMINOPHEN 5-325 MG TABLET 1 TAB ORALLY TWICE DAILY MDD 2, NOTES: NONE RECENT NOT-TAKING VOLTAREN 1 % GEL TO LEFT ELBOW TRANSDERMAL TWICE DAILY NEEDED, NOTES: NONE MEDICATION LIST REVIEWED AND RECONCILED WITH THE PATIENT PAST MEDICAL HISTORY DM II WITH NEPHROPATHY STAGE V CKD (ON DIALYSIS WITH [facility]) ATRIAL FLUTTER (NO ANTICOAGULATION B/C OF BLEED - MANAGED BY TRA). H/O INTRAVENTRICULAR BLEED RELATED TO COUMADIN ([facility]) 06/03-PREVIOUSLY FOLLOWED BY DR TEIXEIRA HTN/HHD CHRONIC DIASTOLIC HEART FAILURE (GRADE 1) - LAST ECHOCARDIOGRAM [facility] 11/2016 COPD- [facility] PULM: RIDGE BAKER SECONDARY HYPERPARATHYROIDISM ANEMIA OF CHRONIC DISEASE ANXIETY OBESITY PRABHJOT (INTOLERANT OF BIPAP)- [facility] PULM RAGADENOSINE NUCLEAR STRESS @ [facility] 11/2016 - PROBABLY NORMAL, NO ISCHEMIA OR INFARCTION NOTED CAROTID ULTRASOUND NO SIGNIFICANT STENOSIS 01/2013 THYROID NODULE/FNA NEG PER DR ELIAS XR RT SHOULDER 11/07 MOD DEGEN CHANGE XR C/T SPINE 11/07 MILD DEGEN CHANGE MEMORY LOSS SINCE PREV INTRAVENTRICULAR BLEED MRI BRAIN 01/07 MINIMAL SMALL VESSEL DISEASE/AREAS OF HEMOSIDERIN AND POSTERIOR RIGHT OCCIPITAL AND TEMPORAL LOBE SECONDARY TO PREVIOUS HEMORRHAGE/MINIMAL VOLUME LOSS VOCAL CORD DYSFUNCTION- REFERRED TO ENT [facility] 09/10 DIFFUSE FIBROFATTY INFILTRATION LIVER. ARTHRITIS BACK PAIN/NECK PAIN- KIDWAI ALLERGIES GATIFLOXACIN: SWOLLEN TONGUE AND MOUTH: ALLERGY TEQUIN: ANAPHYLAXIS: ALLERGY AZITHROMYCIN: DYSPNEA, FACE AND LIPS SWELLING AND TINGLING - SEEN IN THE ER 07/2016: ALLERGY REVIEW OF SYSTEMS REVIEWED BY: PROVIDER: ESTELA OHARA . CONSTITUTIONAL: ANY CHANGE IN YOUR MEDICAL CONDITION? NO . CHILLS NO . FEVER NO . INFECTION: DO YOU HAVE NEW INFECTIONS? NO . DO YOU HAVE HISTORY OF MRSA? NO . MUSCULOSKELETAL: ANY NEW PATTERNS OF PAIN OR NUMBNESS? NO . GASTROENTEROLOGY: ANY NEW CHANGE IN BOWEL CONTROL? NO . GENITOURINARY: ANY NEW CHANGE IN BLADDER CONTROL? NO . IS THERE A CHANCE YOU COULD BE ? NO . HEMATOLOGY/LYMPH: DO YOU TAKE ANY BLOOD THINNERS? (FOR EXAMPLE- COUMADIN, PLAVIX, AGGRENOX, PLATEL, PRADAXA, OR XARELTO) NO . WHEN WAS YOUR LAST DOSE? DATE: TIME: . NEUROLOGY: HAVE YOU FALLEN IN THE PAST 6 MONTHS? NO . ANY NEW EXTREMITY NUMBNESS OR WEAKNESS? NO . CARDIOLOGY: DO YOU HAVE A PACEMAKER OR DEFIBRILLATOR? NO . RESPIRATORY: HAVE YOU BEEN SICK IN THE PAST WEEK? NO . FEVER NO . FLU LIKE SYMPTOMS? NO . COUGH NO . INTEGUMENTARY: DO YOU HAVE ANY RASHES OR OPEN SORES? NO . ALLERGIC/IMMUNO: ARE YOU ALLERGIC TO SHELLFISH OR IV DYE? NO . ANY NEW ALLERGIES? NO . PSYCHIATRIC: DO YOU HAVE THOUGHTS OF HURTING YOURSELF OR SOMEONE ELSE? NO . ARE YOU ABUSED, NEGLECTED, OR IN AN UNSAFE ENVIRONMENT? NO . ENDOCRINOLOGY: ARE YOU DIABETIC? YES . OTHER: DO YOU NEED ANY PRESCRIPTIONS? NO . IF YES, PLEASE LIST: ____ . ANY NEW PROBLEMS WITH YOUR MEDICATIONS? NO . WHEN DID YOU LAST EAT? ____ . WHEN DID YOU LAST DRINK? ____ . WHAT DID YOU LAST DRINK? ____ . NAME OF PERSON DRIVING YOU HOME? ____ . DO YOU HAVE ANY OTHER QUESTIONS OR CONCERNS NO . VITAL SIGNS WT 189.8 LBS, HT 62 IN, BMI 34.71 INDEX, BP 126/67 MM HG, HR 70 /MIN, RR 18 /MIN, TEMP 97.1 F, OXYGEN SAT % 93%, NA INITIALS SC 10:49. EXAMINATION GENERAL EXAMINATION: GENERAL APPEARANCE:COMFORTABLE. PSYCHAFFECT NORMAL, GOOD EYE CONTACT. NECK:NO LYMPHADENOPATHY. LUNGS:LUNG ROMERO ARE CLEAR TO AUSCULTATION BILATERALLY. GOOD MOVEMENT OF AIR. HEART:S1, S2 IN A REGULAR RATE AND RHYTHM. NO SIGNIFICANT MURMURS, RUBS OR GALLOPS NOTED. BACK:PERILUMBAR TENDERNESS, BILATERAL R>L SI JOINT TENDERNESS, TRAPEZIOUS TENDERNESS. MRI L/S SPINE [id number]. 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 PROCEDURE CODES FA211 ESTABILISHED PATIENT THE [facility] CHARGE G8730 PAIN ASSESS POS TOOL F/U PLAN DOC G8427 DOC MEDS VERIFIED W/PT OR RE DISPOSITION & COMMUNICATION FOLLOW UP 2WK POST (REASON: RIGHT SIJ) ELECTRONICALLY SIGNED BY MAYDA SMITH ON 04/20/2017 AT 01:38 PM EDT DISCLAIMER : THIS IS A VISIT SUMMARY EXTRACTED FROM THE [employer] CHART. IT IS NOT A COPY OF THE [employer] PROGRESS NOTE. MTDRoman
== END ==
LOC: M PAIN 10:30
PROVIDERS: ATTEND Nurse Practitioner Family
DX: G89.29 Other chronic pain (principal); M47.816 Spondylosis without myelopathy or radiculopathy, lumbar region; M46.1 Sacroiliitis, not elsewhere classified; I12.0 Hypertensive chronic kidney disease with stage 5 chronic kidney disease or end stage renal disease; N18.5 Chronic kidney disease, stage 5; G47.33 Obstructive sleep apnea (adult) (pediatric); E11.9 Type 2 diabetes mellitus without complications; Z99.2 Dependence on renal dialysis; J43.9 Emphysema, unspecified; I50.32 Chronic diastolic (congestive) heart failure; Z88.1 Allergy status to other antibiotic agents; Z88.8 Allergy status to other drugs, medicaments and biological substances; Z79.4 Long term (current) use of insulin; Z79.82 Long term (current) use of aspirin; Z79.891 Long term (current) use of opiate analgesic; Z79.899 Other long term (current) drug therapy

== ENCOUNTER → 2017-05-13 | Outpatient (CLI) | payer MEDICARE, MEDICAID ==
[~2017-05-13] MED LIST changes: +BUPIVACAINE HCL 0.25% 30 ML VIAL As Ordered ONE; +ISOVUE-M 300 61% 15ML VIAL (Q9967) As Ordered ONE; +LIDOCAINE 1% SDV INJ 30 ML VIAL As Ordered ONE; +TRIAMCINOLONE ACETONIDE SUSP 40 MG/ML VIAL (J3301) As Ordered ONE; +diazePAM 5 MG TAB As Ordered ONE; +oxyCODONE 5MG TAB As Ordered ONE
--- NOTE | 2017-05-13 15:14 | REP ---
FLUOROSCOPIC GUIDANCE: The images were reviewed with Dr. King. The patient has a history of low back pain. The portable C-arm is provided in the OR for Dr. Villa for fluoroscopic guidance. Four intraoperative fluoroscopic spot films are obtained using last image hold technology for needle placement verification for bilateral sacroiliac joint injection. The films are on the PACS system and are available for review. 21 seconds of fluoroscopy time was utilized for this procedure. Reviewed by DIMAS Pichardo 05/13/2017 04:27 PEdited and Signed by Scout King MD 05/13/2017 05:05 P
--- NOTE | 2017-05-17 23:35 | ECWPNPC ---
PATIENT NAME: JOSE ROGERS : 1955 GENDER: FEMALE VISIT DATE: 05/13/2017 DISCHARGE DATE: 05/13/17 1345 VISIT LOCKED DATE TIME: PHYSICIAN: JOSIE DOE PHYSICIAN PAGER NO: TEXT TO [phone] RESOURCE: JOSIE DOE REASON FOR APPOINTMENT 1. RIGHT SIJ HISTORY OF PRESENT ILLNESS HISTORY OF PRESENT ILLNESS: PAIN THE PATIENT DESCRIBES THE PAIN... FALL RISK SCREENING: SCREENING :NO FALLS IN THE PAST YEAR CURRENT MEDICATIONS TAKING LANTUS 100 UNIT/ML SOLOSTAR PEN 48 SUBCUTANEOUS AT BEDTIME/ DX : 250.40, NOTES: 05-12-172099 TAKING LOPRESSOR 50 MG TABLET ORALLY TWICE DAILY, NOTES: 05-12-171999 TAKING NEPHRO-GUILHERME 0.8 MG TABLET 1 TABLET ORALLY DAILY, NOTES: 05-12-17 AM TAKING DRISDOL 50,000 UNITS TABLET 1 TAB ORAL EVERY OTHER WEEK, NOTES: WEEK AGO TAKING AMIODARONE HCL 200 MG TABLET 1 TABLET ORALLY DAILY, NOTES: 05-12-17 TAKING RENAGEL 800 MG TABLET 3 TABLET WITH MEALS ORALLY THREE TIMES A DAY, NOTES: 05-12-172099 TAKING ASPIRIN 325 MG TABLET 1 TABLET ORALLY ONCE A DAY, NOTES: 05-12-17 TAKING CALCITRIOL 0.5 MCG CAPSULE 2 CAPSULE ORALLY THREE TIMES WEEKLY, NOTES: 05-12-17 AM TAKING GLUCOSE STRIP (VERIO IQ) 1 .. 250.02 VITRO TWICE A DAY TAKING SPIRIVA HANDIHALER 18 MCG CAPSULE 1 CAPSULE INHALATION ONCE A DAY, NOTES: 05-12-17 TAKING NEBULIZER/TUBING/MOUTHPIECE 1 KIT 1 TAB(S) 327.23 DAILY NEEDED TAKING LOVAZA 1 GM CAPSULE 1 CAPSULES ORALLY FOUR TIMES DAILY, NOTES: 05-12-17 TAKING TRAZODONE HCL 100 MG TABLET 1 TABLET AT BEDTIME ORALLY AT BEDTIME, NOTES: 05-12-172099 TAKING SENSIPAR 30 MG TABLET 1 TABLET ORALLY ONCE WEEKLY, NOTES: WEEK AGO TAKING LEVOTHYROXINE SODIUM 75 MCG TABLET 1 TABLET ON AN EMPTY STOMACH IN THE MORNING ORALLY ONCE A DAY, NOTES: 05-13-17 0800 TAKING ZOFRAN 4 MG TABLET 1 TAB(S) ORALLY EVERY EIGHT HOURS NEEDED, NOTES: NONE COUPLE OF DAYS TAKING ONE TOUCH DELICA 33 GAUGE .. DIRECTED SUBCUTANEOUSLY TID, DX: 250.00 TAKING GLUCOMETER (VERIO IQ) 1 GLUCOMETER 250.0 VITRO TWICE A DAY TAKING SHOWER CHAIR WITHOUT WHEELS DX : 428.32, 585.5, V45.11 DIRECTED - DAILY USE TAKING NEBULIZER VH=920.21 _ _ _ _ TAKING MAG-OXIDE 400 MG TABLET 1 TAB(S) ORALLY ONCE DAILY, NOTES: 05-12-17 AM TAKING FLEXERIL 5 MG TABLET 1 TABLET ORALLY THREE TIMES A DAY NEEDED, NOTES: 05-12-172099 TAKING PRILOSEC 40MG 40 MG TABLET 1 TAB ORALLY DAILY, NOTES: 05-12-17 AM TAKING INSULIN PEN NEEDLE 29G X 12MM MISCELLANEOUS (ULTRAFINE BD) DX : E11.29 SUBCUTANEOUSLY DAILY TAKING DIAZEPAM 5 MG TABLET 1 TABLET NEEDED ORALLY BID PRN (MDD #2), NOTES: 05-12-172099 TAKING CRESTOR 20 MG TABLET 1 TABLET ORALLY AT BEDTIME, NOTES: 05-12-172099 TAKING HYDROCODONE-ACETAMINOPHEN 5-325 MG TABLET 1 TAB ORALLY TWICE DAILY MDD 2, NOTES: 05-12-17 AM NOT-TAKING ALBUTEROL SULFATE (2.5 MG/3ML) 0.083% NEBULIZATION SOLUTION 3 ML INHALATION QID PRN, NOTES: NONE RECENT NOT-TAKING VOLTAREN 1 % GEL TO LEFT ELBOW TRANSDERMAL TWICE DAILY NEEDED, NOTES: NONE MEDICATION LIST REVIEWED AND RECONCILED WITH THE PATIENT PAST MEDICAL HISTORY DM II WITH NEPHROPATHY STAGE V CKD (ON DIALYSIS WITH [facility]) ATRIAL FLUTTER (NO ANTICOAGULATION B/C OF BLEED - MANAGED BY TRA). H/O INTRAVENTRICULAR BLEED RELATED TO COUMADIN ([facility]) 06/03-PREVIOUSLY FOLLOWED BY DR TEIXEIRA HTN/HHD CHRONIC DIASTOLIC HEART FAILURE (GRADE 1) - LAST ECHOCARDIOGRAM [facility] 11/2016 COPD- [facility] PULM: RIDGE SAVICI SECONDARY HYPERPARATHYROIDISM ANEMIA OF CHRONIC DISEASE ANXIETY OBESITY PRABHJOT (INTOLERANT OF BIPAP)- [facility] PULM RAGADENOSINE NUCLEAR STRESS @ [facility] 11/2016 - PROBABLY NORMAL, NO ISCHEMIA OR INFARCTION NOTED CAROTID ULTRASOUND NO SIGNIFICANT STENOSIS 01/2013 THYROID NODULE/FNA NEG PER DR ELIAS XR RT SHOULDER 11/07 MOD DEGEN CHANGE XR C/T SPINE 11/07 MILD DEGEN CHANGE MEMORY LOSS SINCE PREV INTRAVENTRICULAR BLEED MRI BRAIN 01/07 MINIMAL SMALL VESSEL DISEASE/AREAS OF HEMOSIDERIN AND POSTERIOR RIGHT OCCIPITAL AND TEMPORAL LOBE SECONDARY TO PREVIOUS HEMORRHAGE/MINIMAL VOLUME LOSS VOCAL CORD DYSFUNCTION- REFERRED TO ENT [facility] 09/10 DIFFUSE FIBROFATTY INFILTRATION LIVER. ARTHRITIS BACK PAIN/NECK PAIN- KIDWAI ALLERGIES GATIFLOXACIN: SWOLLEN TONGUE AND MOUTH: ALLERGY TEQUIN: ANAPHYLAXIS: ALLERGY AZITHROMYCIN: DYSPNEA, FACE AND LIPS SWELLING AND TINGLING - SEEN IN THE ER 07/2016: ALLERGY SOCIAL HISTORY GENERAL: TOBACCO USE ARE YOU A:NONSMOKER SHE QUIT IN [phone]. PRIOR TO THAT SHE HAD ACRUED A 80 PACK YEAR HX. BMI CARE GOAL FOLLOW-UP ABOVE NORMAL BMI FOLLOW-UPLIFESTYLE EDUCATION REGARDING DIET ALCOHOL SCREENING DID YOU HAVE A DRINK CONTAINING ALCOHOL IN THE PAST YEAR?YES HOW OFTEN DID YOU HAVE A DRINK CONTAINING ALCOHOL IN THE PAST YEAR?MONTHLY OR LESS (1 POINT) HOW MANY DRINKS DID YOU HAVE ON A TYPICAL DAY WHEN YOU WERE DRINKING IN THE PAST YEAR?1 OR 2 (0 POINTS) HOW OFTEN DID YOU HAVE SIX OR MORE DRINKS ON ONE OCCASION IN THE PAST YEAR?NEVER (0 POINTS) POINTS1 INTERPRETATIONNEGATIVE RECREATIONAL DRUG USE DRUG USE? NO. CAFFEINE CAFFEINE USE?YES HOW OFTEN AND HOW MUCH? DRINKS 1 CUP COFFEE PER DAY SEXUAL HX HAD SEX IN THE LAST 12 MONTHS (VAGINAL, ORAL, OR ANAL)?NO HAVE YOU EVER HAD AN STD?NO HIV / HEP-C SCREENING HIV TEST OFFERED TO PATIENT:YES DATE OFFERED:12/12/2016 TEST ACCEPTED:NO REASON: SHE IS BEING SCREENED FOR A KIDNEY TRANSPLANT AND THEY WILL BE DOING THIS TESTING HEP-C TEST OFFERED TO PATIENT:YES DATE OFFERED:12/12/2016 TEST ACCEPTED:NO REASON: SHE IS BEING SCREENED FOR A KIDNEY TRANSPLANT AND THEY WILL BE DOING THIS TESTING DIET: NO ADDED SALT, SHOULD BE DOING CONSISTENT CARBOHYDRATE BUT SLIPS UP FREQUENTLY. EXERCISE: SHE ENJOYS WALKING IN HER BUILDING. OTHERS AT HOME: NONE. FAITH [id number] ALEVISM EDUCATION LEVEL OF EDUCATION:FINISHED HIGH SCHOOL LEARNING BARRIERS / SPECIAL NEEDS CHANGE FROM LAST VISIT?NO BARRIERS TO LEARNING?NO HEARING IMPAIRED?NO VISION IMPAIRED?YES :CORRECTIVE LENSES GLASSES COGNITIVELY IMPAIRED?NO READINESS TO LEARN?YES LEARNING PREFERENCES?NO LEARNING CAPABILITIES PRESENT?YES EMOTIONAL BARRIERS?NO SPECIAL DEVICES?NO SPECIALIST PHYSICIANS NEEDED?NO PSYCHOLOGICAL HX TREATMENT NO . PAIN CLINIC PFS, CLERGY, PUBLIC HEALTH REFERRALS PFS REFERRAL NEEDED?NO CLERGY REFERRAL NEEDED?NO PUBLIC HEALTH REFERRAL NEEDED?NO WAS THE PROVIDER NOTIFIED OF ANY PERTINENT INFO?NO HAS THE PATIENT BEEN EDUCATED REGARDING HIS/HER PLAN OF CARE?YES HAS THE PATIENT BEEN EDUCATED REGARDING PAIN, THE RISK FOR PAIN, THE IMPORTANCE OF EFFECTIVE PAIN MANAGEMENT, AND THE PAIN ASSESSMENT PROCESS?YES PATIENT: ____. ADVANCE DIRECTIVES HEALTH CARE PROXY?YES NAME OF HCP SISTER LIEN [place] CONTACT # FOR HCP DO YOU HAVE A COPY WITH YOU? COPY AT [facility] POWER OF INDUSTRIAL CUSTODIAN?NO SOCIAL HISTORY PATIENTDENIES ABUSE OR MISSUSED OF ANY MEDICATION, DENIES USE OF ANY ILLEGAL SUBSTANCE INCLUDING MARIJUANA OR COCAINE, REPORTS BEING EMOTIONALLY STABLE, REPORTS HAVING A SAFE AND ADEQUATE PLACE TO STORE THE MEDICATIONS, DENIES RECREATIONAL DRUG USE REVIEW OF SYSTEMS REVIEWED BY: PROVIDER: . CONSTITUTIONAL: ANY CHANGE IN YOUR MEDICAL CONDITION? NO . CHILLS NO . FEVER NO . INFECTION: DO YOU HAVE NEW INFECTIONS? NO . DO YOU HAVE HISTORY OF MRSA? NO . MUSCULOSKELETAL: ANY NEW PATTERNS OF PAIN OR NUMBNESS? NO . GASTROENTEROLOGY: ANY NEW CHANGE IN BOWEL CONTROL? NO . GENITOURINARY: ANY NEW CHANGE IN BLADDER CONTROL? NO . IS THERE A CHANCE YOU COULD BE ? NO . HEMATOLOGY/LYMPH: DO YOU TAKE ANY BLOOD THINNERS? (FOR EXAMPLE- COUMADIN, PLAVIX, AGGRENOX, PLATEL, PRADAXA, OR XARELTO) NO . WHEN WAS YOUR LAST DOSE? DATE: TIME: . NEUROLOGY: HAVE YOU FALLEN IN THE PAST 6 MONTHS? NO . ANY NEW EXTREMITY NUMBNESS OR WEAKNESS? NO . CARDIOLOGY: DO YOU HAVE A PACEMAKER OR DEFIBRILLATOR? NO . RESPIRATORY: HAVE YOU BEEN SICK IN THE PAST WEEK? NO . FEVER NO . FLU LIKE SYMPTOMS? NO . COUGH NO . INTEGUMENTARY: DO YOU HAVE ANY RASHES OR OPEN SORES? NO . ALLERGIC/IMMUNO: ARE YOU ALLERGIC TO SHELLFISH OR IV DYE? NO . ANY NEW ALLERGIES? NO . PSYCHIATRIC: DO YOU HAVE THOUGHTS OF HURTING YOURSELF OR SOMEONE ELSE? NO . ARE YOU ABUSED, NEGLECTED, OR IN AN UNSAFE ENVIRONMENT? NO . ENDOCRINOLOGY: ARE YOU DIABETIC? YES . OTHER: DO YOU NEED ANY PRESCRIPTIONS? NO . IF YES, PLEASE LIST: ____ . ANY NEW PROBLEMS WITH YOUR MEDICATIONS? NO . WHEN DID YOU LAST EAT? 05-12-17 9PM . WHEN DID YOU LAST DRINK? 05-13-19 0900 . WHAT DID YOU LAST DRINK? COFFEE . NAME OF PERSON DRIVING YOU HOME? [employer] . DO YOU HAVE ANY OTHER QUESTIONS OR CONCERNS PATIENT HAS LEFT DIAYLISIS FISTULA . VITAL SIGNS WT 187 LBS, HT 62 IN, BMI 34.20 INDEX, BP 116/72 MM HG, HR 90 /MIN, RR 18 /MIN, TEMP 97.9 F, OXYGEN SAT % 94%, NA INITIALS AW 1118, REVIEWED BY: CM. ASSESSMENTS SACROILIITIS, NOT ELSEWHERE CLASSIFIED - M46.1 (PRIMARY) PROCEDURES PN SI PRE PROCEDURE DIAGNOSIS SACROILIITIS, SACROILIAC JOINT DYSFUNCTION POST PROCEDURE DIAGNOSIS SACROILIITIS, SACROILIAC JOINT DYSFUNCTION PROCEDURE RIGHT SACROILIAC JOINT BLOCK SURGEON DR. JOSIE DOE DIRECTOR OF CORPORATE REAL ESTATE NONE ANESTHESIA LOCAL PRE PROCEDURE NOTE PATIENT WITH HISTORY OF CHRONIC LOW BACK PAIN. I EVALUATED THE PATIENT AND REVIEWED THE CHART. I WENT OVER THE RISKS, ALTERNATIVES, AND BENEFITS ASSOCIATED WITH THIS PROCEDURE. THE PATIENT WOULD LIKE TO PROCEED AND GAVE CONSENT TO PERFORM THE PROCEDURE. THE PATIENT DENIES UNEXPLAINABLE WEIGHT LOSS, FEVER, CHILLS, OR NEW CHANGES IN URINARY OR BOWEL CONTROL DESCRIPTION OF PROCEDURE THE PATIENT WAS BROUGHT TO THE PROCEDURE ROOM AND PLACED IN THE PRONE POSITION. THE LUMBOSACRAL AREA WAS CLEANED WITH CHLORAPREP SOLUTION AND DRAPED ASEPTICALLY. THE PROCEDURE WAS DONE UNDER STERILE CONDITIONS. I CHECKED LATERALITY AND THE LEVEL WHERE THE PROCEDURE WAS GOING TO BE PERFORMED WITH THE PATIENT AND THE SUPPORTING STAFF AT THE MOMENT OF THE TIME OUT IN THE PROCEDURE ROOM. UNDER FLUOROSCOPIC GUIDANCE, TARGET POINT WAS SELECTED AT THE LOWER BORDER OF THE RIGHT SACROILIAC JOINT. TARGET POINT WAS SELECTED AFTER MEDIAL ROTATION AND TILT OF THE MAGNIFIER OF THE C-ARM. LIDOCAINE WAS USED TO NUMB THE SKIN AND SUBCUTANEOUS TISSUE BELOW IT. A SPINAL NEEDLE, 22-GAUGE, WAS ADVANCED UNDER FLUOROSCOPIC GUIDANCE AND FOLLOWING PATIENT FEEDBACK UNTIL THE TARGET AREA WAS TOUCHED. THE POSITION OF THE NEEDLE WAS VERIFIED WITH AP AND LATERAL VIEWS. AFTER PROPER POSITION OF THE NEEDLE WAS ACHIEVED, ISOVUE M DYE 30%, 0.25 ML, WAS INJECTED SHOWING SPREAD OF THE DYE. THEN, A SOLUTION OF 20 MG OF KENALOG WAS INJECTED IN RIGHT JOINT WITH 3 ML OF BUPIVACAINE 0.125%. THERE WAS NO EVIDENCE OF BLOOD, PARESTHESIA OR CEREBROSPINAL FLUID DURING THE PROCEDURE. THE PATIENT WAS SENT TO THE RECOVERY ROOM. THE PATIENT WAS MOVING THE EXTREMITIES AND DOING WELL. THERE WAS NO COMPLICATION DURING THE PROCEDURE. FLUOROSCOPY TIME WAS 21 SECONDS POST PROCEDURE NOTE THE PATIENT WILL BE SEEN IN A FOLLOW UP IN THE NEXT FEW WEEKS. INSTRUCTIONS WERE GIVEN, QUESTIONS WERE ANSWERED, AND THE PATIENT EXPRESSED UNDERSTANDING AND AGREED WITH THE PLAN. I, RACQUEL FU, DOCUMENTED THE ABOVE INFORMATION ACTING A SCRIBE FOR DR. DOE. I HAVE REVIEWED THE ABOVE DOCUMENT, WRITTEN BY RACQUEL GRIERIBHuber AND I VERIFY THAT IT IS [facility] FLUORO GUIDANCE (PAIN)[id number] PROCEDURE CODES 35554 INJECT SACROILIAC JOINT, MODIFIERS: RT 6045F RADXPS IN END [id number] PXD DISPOSITION & COMMUNICATION FOLLOW UP 3 WEEKS ELECTRONICALLY SIGNED BY JOSIE DOE MD ON 05/17/2017 AT 12:46 PM EDT DISCLAIMER : THIS IS A VISIT SUMMARY EXTRACTED FROM THE [employer] CHART. IT IS NOT A COPY OF THE [employer] PROGRESS NOTE. MTDRoman
== END ==
LOC: M PAIN 11:30
PROVIDERS: ATTEND Anesthesiology
DX: G89.29 Other chronic pain (principal); M46.1 Sacroiliitis, not elsewhere classified; M53.88 Other specified dorsopathies, sacral and sacrococcygeal region; E11.9 Type 2 diabetes mellitus without complications; I12.0 Hypertensive chronic kidney disease with stage 5 chronic kidney disease or end stage renal disease; N18.5 Chronic kidney disease, stage 5; G47.33 Obstructive sleep apnea (adult) (pediatric); E66.01 Morbid (severe) obesity due to excess calories; Z68.34 Body mass index [BMI] 34.0-34.9, adult; Z88.1 Allergy status to other antibiotic agents; Z88.8 Allergy status to other drugs, medicaments and biological substances; Z79.4 Long term (current) use of insulin; Z79.82 Long term (current) use of aspirin; Z79.891 Long term (current) use of opiate analgesic; Z79.899 Other long term (current) drug therapy; Z99.2 Dependence on renal dialysis
CPT/HCPCS: G0260; J3301; Q9967

== ENCOUNTER → 2017-06-10 | Outpatient (CLI) | payer OTHER ==
[~2017-06-10] MED LIST changes: -BUPIVACAINE HCL 0.25% 30 ML VIAL As Ordered ONE; +ISOVUE-370 76% 100ML VIAL (Q9967) As Ordered ONE; -ISOVUE-M 300 61% 15ML VIAL (Q9967) As Ordered ONE; -LIDOCAINE 1% SDV INJ 30 ML VIAL As Ordered ONE; -TRIAMCINOLONE ACETONIDE SUSP 40 MG/ML VIAL (J3301) As Ordered ONE; -diazePAM 5 MG TAB As Ordered ONE; -oxyCODONE 5MG TAB As Ordered ONE
--- NOTE | 2017-06-10 15:47 | REP ---
Clinical: Right renal mass. Technique: Axial contrast enhanced images from the lung bases to the pubic symphysis using 100 ml Isovue 370 intravenous contrast material with precontrast, arterial phase, and delayed phase images of the abdomen along with coronal and sagittal re-formations. Comparison: 03/02/2017. Findings: The kidneys demonstrate stable age related cortical atrophic changes along with few nonobstructing left renal calculi and bilateral predominantly subcentimeter hypodensities compatible with cysts. There is no discrete renal mass lesion. No acute perinephric stranding or hydroureteronephrosis, and the previously noted right hydroureteronephrosis and perinephric stranding has resolved. The bladder is collapsed and grossly unremarkable. Liver, spleen, pancreas, gallbladder, and bilateral adrenal glands are normal in appearance. Mild hepatic splenomegaly cannot be excluded and remains unchanged. Splenic calcifications likely represent prior granulomatous disease. The enteric system is without obstruction or acute inflammatory process. Normal terminal ileum and appendix identified in the right lower quadrant. Colonic and sigmoid diverticulosis noted without acute diverticulitis. Pelvis demonstrates normal collapsed bladder and evidence for prior hysterectomy. No ascites. No free air. No significant adenopathy. No solitary abdominopelvic mass lesion. Atherosclerotic changes of the aorta and vasculature noted without aneurysm or dissection. Musculoskeletal structures demonstrate age-related degenerative changes without focal osseous abnormality lung bases are clear. Impression: 1. Kidneys demonstrate bilateral cortical atrophic changes, small nonobstructing intrarenal calculi, and primarily sub centimeter bilateral renal cysts. Previously noted right hydroureteronephrosis has resolved. No renal or obvious urinary tract mass lesion is identified. 2. Diverticulosis. 3. No acute abdominopelvic pathology appreciated. 4. Stable mild hepatic splenomegaly nonspecific. Signed by Geovanni Scanlon MD 06/10/2017 03:39 P
== END ==
LOC: M RAD 14:51
PROVIDERS: ATTEND Transplant Surgery
DX: Z01.818 Encounter for other preprocedural examination (principal); N28.89 Other specified disorders of kidney and ureter
CPT/HCPCS: 74178; Q9967

== ENCOUNTER 2017-06-29 11:29 | Emergency (ER) | payer MEDICARE, MEDICAID ==
[~2017-06-29] VITALS: Ht 154.9 cm; Wt 85.9 kg
[~2017-06-29 11:29] MED LIST changes: -ISOVUE-370 76% 100ML VIAL (Q9967) As Ordered ONE
[2017-06-29] MEDS ORDERED: MORPHINE 4 MG/ML 1ML SYRINGE IV ONE ×2 (12:15→15:15)
[2017-06-29 12:59] LABS: BASO # 0.1 10^3/uL (0.0-0.2); IMMATURE GRANULOCYTE % 0.2 % (0-0); LYMPH % 19.7 % (24.0-44.0); MEAN CORPUSCULAR HEMOGLOBIN 32.7 pg (27.0-33.0); MEAN CORPUSCULAR VOLUME 102.1 fl (80.0-96.0); MONO # 0.5 10^3/uL (0.0-0.8); MONO % 10.5 % (0.0-5.0); NEUTROPHILS # 3.4 10^3/uL (1.8-7.7); NEUTROPHILS % 68.6 % (36.0-66.0); PLATELET COUNT, AUTOMATED 107 10^3/uL (150-450); RED CELL DISTRIBUTION WIDTH 14.3 % (11.5-14.5); WHITE BLOOD COUNT 4.9 10^3/uL (4.0-10.0)
--- NOTE | 2017-06-29 13:01 | REP ---
CT Head without contrast HISTORY: Trauma COMPARISON: 09/23/2016 Areas of decreased attenuation are present in the periventricular and subcortical white matter. This represents small-vessel ischemic disease. Calcification is present along the ependyma of the the occipital horn of the right lateral ventricle. There is no intraparenchymal hemorrhage, mass or midline shift. The ventricular system and cortical sulci are dilated consistent with minimal volume loss. There is no extra cerebral collection. There is no fracture. The visualized sinuses are clear. IMPRESSION: 1. Small vessel ischemic disease. 2. Minimal volume loss. Signed by Arslan Duran MD 06/29/2017 12:53 P
--- NOTE | 2017-06-29 13:21 | REP ---
Right shoulder, complete: 06/29/2017. Clinical history: Trauma. Findings: Three views are provided. Comparison PA chest 12/09/2016. The AC joint shows some minor degenerative changes inferiorly but no widening of the joint space or elevation of clavicle. No visible fracture of the clavicle, ribs, scapula or humerus. Glenohumeral joint shows no subluxation or dislocation and minimal degenerative changes inferiorly. No abnormal soft tissue calcifications. Impression: 1. No visible or displaced fracture, avulsion, subluxation or dislocation. No abnormal soft-tissue calcification or other acute finding. Minor degenerative changes AC and glenohumeral joints. Signed by Guillermo Barnes MD 06/30/2017 07:25 P
--- NOTE | 2017-06-29 13:26 | REP ---
CT CERVICAL SPINE WITHOUT CONTRAST: HISTORY: Trauma. COMPARISON: 03/30/2016. There is no acute fracture or subluxation. Disc bulges are present at the C3-4 and C4-5 levels. A disc bugle with associated osteophyte formation is present at the C5-6 level. There is minimal narrowing of the spinal canal. Uncinate process and/or facet hypertrophy are present at the C4-5 and C5-6 levels. These findings produce minimal narrowing of the neural foramina. The C5-6 intervertebral disc is decreased in height consistent with disc degeneration. IMPRESSION: 1. There is no acute fracture or subluxation. 2. There is cervical spondylosis at the C3-4 through C5-6 levels. Signed by Arslan Duran MD 06/29/2017 01:40 P
--- NOTE | 2017-06-29 13:28 | REP ---
CT THORACIC SPINE WITHOUT CONTRAST: HISTORY: Trauma. There is no acute fracture or subluxation. There is no definite disc bulge or herniation. The spinal canal and the neural foramina are patent. The intervertebral discs are normal in height. Anterior osteophytes are present throughout the thoracic spine. Calcification is present in the left kidney consistent with nephrolithiasis. IMPRESSION: There is no acute fracture or subluxation. Signed by Arslan Duran MD 06/29/2017 01:40 P
[2017-06-29 13:31] LABS: CALCIUM LEVEL 9.3 MG/DL (8.8-10.2); CREATININE FOR GFR 8.51 MG/DL (0.55-1.02); GLOMERULAR FILTRATION RATE 5.1 (>45)
--- NOTE | 2017-06-29 13:34 | REP ---
CT LUMBAR SPINE WITHOUT CONTRAST: HISTORY: Trauma. COMPARISON: MR 01/16/2014. There is no disc bulge or herniation at the L1-2 and L2-3 levels. There is hypertrophy of the ligamenta flava and posterior articulating facets. The nerves exit the neural foramina without compression. A diffuse disc bulge is present at the L3-4 level. There is hypertrophy of the ligamenta flava and posterior articulating facets. These findings produce minimal central canal stenosis. The L3 nerves exit the neural foramina without compression. A diffuse disc bugle is present at the L4-5 level. There is minimal compression of the thecal sac. There is hypertrophy of the posterior articulating facets. The L4 nerves exit the neural foramina without compression. A left laminectomy defect is present. A diffuse disc bulge is present at the L5-S1 level. This abuts the S1 nerves. There is no thecal sac compression. There is hypertrophy of the posterior articulating facets. There is compression of the L5 nerves in the neural foramina. The L3-4 through L5-S1 intervertebral discs are decreased in height. Vacuum phenomenon is present at the L4-5 level. These findings are consistent with disc degeneration. There is no fracture or subluxation. IMPRESSION: 1. Minimal central canal stenosis at the L3-4 level secondary to disc bulge ligamentous and facet hypertrophy. 2. Diffuse disc bulge at the L4-5 level with minimal thecal sac compression. 3. Diffuse disc bugle at the L5-S1 level. This abuts the S1 nerves. There is compression of the L5 nerves in the neural foramina. The L5 nerve compression is a new finding. Signed by Arslan Duran MD 06/29/2017 01:40 P
[2017-06-29 13:44] LABS: POTASSIUM SERUM 5.3 MEQ/L (3.5-5.1)
[2017-06-29 16:09] VITALS: BP 169/78
--- NOTE | 2017-06-30 12:22 | ECGEPIP ---
Stationary ECG Study [facility] [place] - ED Test Date: 2017-06-29 Pat Name: JOSE ROGERS Department: Room: - Gender: F Epic Director: danii : 1955 Requested By: YVES Olvera Order Number: [id number] Reading MD: Sarah Beth Griffin Measurements Intervals [place] Rate: 57 P: 52 IA: 257 QRS: 14 QRSD: 94 T: 30 QT: 443 QTc: 434 Interpretive Statements SINUS BRADYCARDIA WITH FIRST DEGREE AV BLOCK NSTTW ABNORMALITY Electronically Signed On 06-30-2017 12:22:18 EST by Sarah Beth Griffin
== END 2017-06-29 16:11 | disposition home or self-care (01) ==
LOC: EDBD 11:29 → M ED 11:29
DX: S16.1XXA Strain of muscle, fascia and tendon at neck level, initial encounter (principal); S09.90XA Unspecified injury of head, initial encounter; Z87.891 Personal history of nicotine dependence; W10.8XXA Fall (on) (from) other stairs and steps, initial encounter; Y92.099 Unspecified place in other non-institutional residence as the place of occurrence of the external cause; Y93.01 Activity, walking, marching and hiking; Y99.9 Unspecified external cause status

== ENCOUNTER 2017-07-02 13:09 | Emergency (ER) | payer MEDICARE, MEDICAID ==
[~2017-07-02] VITALS: Ht 154.9 cm; Wt 132.3 kg
[2017-07-02 14:45] LABS: BASO # 0.1 10^3/uL (0.0-0.2); BASO % 0.8 % (0.0-1.0); IMMATURE GRANULOCYTE % 0.3 % (0-0); LYMPH # 0.9 10^3/uL (1.5-4.5); LYMPH % 14.4 % (24.0-44.0); MEAN CORPUSCULAR HEMOGLOBIN 32.6 pg (27.0-33.0); MEAN CORPUSCULAR HGB CONC 32.5 g/dl (32.0-36.5); MEAN CORPUSCULAR VOLUME 100.2 fl (80.0-96.0); MONO # 0.9 10^3/uL (0.0-0.8); MONO % 13.1 % (0.0-5.0); NEUTROPHILS # 4.7 10^3/uL (1.8-7.7); NEUTROPHILS % 71.4 % (36.0-66.0); PLATELET COUNT, AUTOMATED 135 10^3/uL (150-450); RED CELL DISTRIBUTION WIDTH 14.1 % (11.5-14.5); WHITE BLOOD COUNT 6.6 10^3/uL (4.0-10.0)
--- NOTE | 2017-07-02 14:46 | REP ---
SUPINE ABDOMEN: 07/02/2017. Comparison: x-ray 07/11/2014. Clinical history: Abdominal pain. Findings: Two views to encompass the entirety of the abdomen and pelvis are reviewed. Mild to moderate stool in the rectosigmoid, scattered stool in the left colon, scant in the transverse colon and moderate in the right colon. Overall this is a normal gas pattern without dilated loops. There are no dilated small bowel loops, free air or masses visible. No abnormal calcifications over the renal fossae or expected course of the ureters. The lung bases are grossly clear. Some degenerative changes lower lumbar spine. Impression: 1. Nonspecific gas pattern without obstruction, mass, abnormal calcification or other acute finding. 2. Degenerative changes lower lumbar spine, less in the hips with lung bases clear. Signed by Guillermo Barnes MD 07/02/2017 02:37 P
[2017-07-02 14:55] LABS: INR 0.91
[2017-07-02 15:20] LABS: ALBUMIN 3.8 GM/DL (3.2-5.2); ALBUMIN/GLOBULIN RATIO 0.88 (1.00-1.93); BILIRUBIN,DIRECT 0.1 MG/DL (0.0-0.2); BILIRUBIN,TOTAL 0.4 MG/DL (0.2-1.0); CALCIUM LEVEL 9.3 MG/DL (8.8-10.2); CREATININE FOR GFR 4.53 MG/DL (0.55-1.02); GLOMERULAR FILTRATION RATE 10.5 (>45); POTASSIUM SERUM 4.3 MEQ/L (3.5-5.1); TOTAL PROTEIN 8.1 GM/DL (6.4-8.2)
[2017-07-02] MEDS ORDERED: DULC10SU2 PR (17:56)
[2017-07-02] MEDS ORDERED: COLA100C5 PO (17:56)
[2017-07-02 18:04] VITALS: BP 148/80
== END 2017-07-02 18:06 | disposition home or self-care (01) ==
LOC: M ED 13:09
DX: K56.41 Fecal impaction (principal); K60.2 Anal fissure, unspecified; K92.1 Melena; I12.0 Hypertensive chronic kidney disease with stage 5 chronic kidney disease or end stage renal disease; E11.9 Type 2 diabetes mellitus without complications; E78.00 Pure hypercholesterolemia, unspecified; N18.5 Chronic kidney disease, stage 5; G47.30 Sleep apnea, unspecified; E55.9 Vitamin D deficiency, unspecified; F41.9 Anxiety disorder, unspecified; F33.9 Major depressive disorder, recurrent, unspecified; Z79.899 Other long term (current) drug therapy; Z79.82 Long term (current) use of aspirin; Z88.1 Allergy status to other antibiotic agents; Z87.891 Personal history of nicotine dependence

== ENCOUNTER 2017-07-28 04:08 | Emergency (ER) | payer MEDICARE, MEDICAID ==
[2017-07-28] MEDS: ACETAMINOPHEN TAB 650MG DOSE (2X325MG) PO (04:45)
[2017-07-28] MEDS: methylPREDNISolone INJ 125 MG/2 ML VIAL (J2930) IV (04:45)
[2017-07-28 05:18] LABS: BASO % 0.4 % (0.0-1.0); HEMATOCRIT 33.6 % (36.0-47.0); HEMOGLOBIN 10.6 g/dl (12.0-16.0); IMMATURE GRANULOCYTE % 0.4 % (0-0); LYMPH % 2.8 % (24.0-44.0); MEAN CORPUSCULAR HEMOGLOBIN 32.7 pg (27.0-33.0); MEAN CORPUSCULAR HGB CONC 31.5 g/dl (32.0-36.5); MEAN CORPUSCULAR VOLUME 103.7 fl (80.0-96.0); MONO # 0.2 10^3/uL (0.0-0.8); MONO % 4.1 % (0.0-5.0); NEUTROPHILS # 5.2 10^3/uL (1.8-7.7); NEUTROPHILS % 92.3 % (36.0-66.0); PLATELET COUNT, AUTOMATED 106 10^3/uL (150-450); RED BLOOD COUNT 3.24 10^6/uL (4.00-5.40); RED CELL DISTRIBUTION WIDTH 15.1 % (11.5-14.5); WHITE BLOOD COUNT 5.6 10^3/uL (4.0-10.0)
[2017-07-28 05:38] LABS: ANION GAP 10 MEQ/L (8-16); BLOOD UREA NITROGEN 41 MG/DL (7-18); CALCIUM LEVEL 8.3 MG/DL (8.8-10.2); CARBON DIOXIDE LEVEL 28 MEQ/L (21-32); CHLORIDE LEVEL 100 MEQ/L (98-107); CREATININE FOR GFR 8.58 MG/DL (0.55-1.02); GLUCOSE, FASTING 102 MG/DL (80-110); SODIUM LEVEL 138 MEQ/L (136-145)
[2017-07-28 05:41] LABS: POTASSIUM SERUM 5.8 MEQ/L (3.5-5.1)
[2017-07-28 05:41] LABS: LACTIC ACID SEPSIS PROTOCOL 1.1 MMOL/L (0.4-2.0)
[2017-07-28 05:42] LABS: ADD MANUAL DIFFER NO; DIFF SLIDE NUMBER 109; LYMPH # 0.2 10^3/uL (1.5-4.5); POSITIVE DIFF POS FLAG
== END 2017-07-28 06:37 | disposition home or self-care (01) ==
LOC: M ED 04:08
DX: B34.9 Viral infection, unspecified (principal); Z79.01 Long term (current) use of anticoagulants; Z87.891 Personal history of nicotine dependence; I50.9 Heart failure, unspecified; E78.00 Pure hypercholesterolemia, unspecified; I12.0 Hypertensive chronic kidney disease with stage 5 chronic kidney disease or end stage renal disease; N18.5 Chronic kidney disease, stage 5; Z99.2 Dependence on renal dialysis
CPT/HCPCS: J2930

== ENCOUNTER 2017-10-14 07:50 | Emergency (ER) | payer MEDICARE, MEDICAID ==
[2017-10-14] MEDS: METOPROLOL TART 50 MG TAB PO (08:49)
[2017-10-14 08:51] LABS: INR 0.93; PROTHROMBIN TIME 12.6 SECONDS (12.4-14.5)
[2017-10-14 09:03] LABS: ANION GAP 6 MEQ/L (8-16); BLOOD UREA NITROGEN 22 MG/DL (7-18); CARBON DIOXIDE LEVEL 33 MEQ/L (21-32); CHLORIDE LEVEL 98 MEQ/L (98-107); CREATININE FOR GFR 6.68 MG/DL (0.55-1.30); GLOMERULAR FILTRATION RATE 6.7 (>45); GLUCOSE, FASTING 85 MG/DL (70-100); POTASSIUM SERUM 4.3 MEQ/L (3.5-5.1); SODIUM LEVEL 137 MEQ/L (136-145)
[2017-10-14 09:06] LABS: LACTIC ACID SEPSIS PROTOCOL 1.2 MMOL/L (0.4-2.0)
[2017-10-14 09:08] LABS: BASO % 0.6 % (0.0-1.0); HEMATOCRIT 38.3 % (36.0-47.0); HEMOGLOBIN 12.1 g/dl (12.0-16.0); IMMATURE GRANULOCYTE % 0.4 % (0-3.0); LYMPH # 0.4 10^3/uL (1.5-4.5); LYMPH % 8.6 % (24.0-44.0); MEAN CORPUSCULAR HEMOGLOBIN 32.4 pg (27.0-33.0); MEAN CORPUSCULAR HGB CONC 31.6 g/dl (32.0-36.5); MEAN CORPUSCULAR VOLUME 102.7 fl (80.0-96.0); MONO # 0.7 10^3/uL (0.0-0.8); MONO % 14.5 % (0.0-5.0); NEUTROPHILS # 3.6 10^3/uL (1.8-7.7); NEUTROPHILS % 75.9 % (36.0-66.0); RED BLOOD COUNT 3.73 10^6/uL (4.00-5.40); RED CELL DISTRIBUTION WIDTH 14.7 % (11.5-14.5); WHITE BLOOD COUNT 4.8 10^3/uL (4.0-10.0)
[2017-10-14 09:11] LABS: PLATELET COUNT, AUTOMATED 72 10^3/uL (150-450)
[2017-10-14 09:12] LABS: IMMATURE PLATELET FRACTION % 2.9 % (0.0-9.6); PLATELET F 75
[2017-10-14 09:13] LABS: ALBUMIN 3.6 GM/DL (3.2-5.2); ALKALINE PHOSPHATASE 103 U/L (45-117); ALT/SGPT 19 U/L (12-78); AST/SGOT 17 U/L (7-37); BILIRUBIN,DIRECT < 0.1 MG/DL (0.0-0.2); BILIRUBIN,TOTAL 0.4 MG/DL (0.2-1.0); TOTAL PROTEIN 7.6 GM/DL (6.4-8.2)
[2017-10-14] MEDS: ALBUTEROL SULFATE 2.5 MG/0.5 ML INH NEB SOLN NEB (11:41)
== END 2017-10-14 11:59 | disposition home or self-care (01) ==
LOC: M ED 07:50
DX: J40 Bronchitis, not specified as acute or chronic (principal); J44.9 Chronic obstructive pulmonary disease, unspecified; I48.91 Unspecified atrial fibrillation; I11.0 Hypertensive heart disease with heart failure; I50.9 Heart failure, unspecified; G47.33 Obstructive sleep apnea (adult) (pediatric); N19 Unspecified kidney failure; Z99.2 Dependence on renal dialysis; D64.9 Anemia, unspecified; E21.3 Hyperparathyroidism, unspecified; Z86.79 Personal history of other diseases of the circulatory system; Z87.891 Personal history of nicotine dependence; Z79.899 Other long term (current) drug therapy; Z79.82 Long term (current) use of aspirin; Z79.4 Long term (current) use of insulin
CPT/HCPCS: 71046

== ENCOUNTER 2017-10-16 05:24 | Inpatient (IN) | payer MEDICARE, MEDICAID ==
[2017-10-16] MEDS: LEVOTHYROXINE 75MCG TABLET (0.075MG) PO (06:00)
[2017-10-16 06:08] LABS: BASO % 0.2 % (0.0-1.0); HEMATOCRIT 38.6 % (36.0-47.0); HEMOGLOBIN 12.1 g/dl (12.0-16.0); IMMATURE GRANULOCYTE % 0.6 % (0-3.0); LYMPH # 0.7 10^3/uL (1.5-4.5); LYMPH % 7.1 % (24.0-44.0); MEAN CORPUSCULAR HGB CONC 31.3 g/dl (32.0-36.5); MEAN CORPUSCULAR VOLUME 102.1 fl (80.0-96.0); MONO # 0.9 10^3/uL (0.0-0.8); MONO % 9.8 % (0.0-5.0); NEUTROPHILS # 7.7 10^3/uL (1.8-7.7); NEUTROPHILS % 82.3 % (36.0-66.0); PLATELET COUNT, AUTOMATED 103 10^3/uL (150-450); RED BLOOD COUNT 3.78 10^6/uL (4.00-5.40); RED CELL DISTRIBUTION WIDTH 14.6 % (11.5-14.5); WHITE BLOOD COUNT 9.4 10^3/uL (4.0-10.0)
[2017-10-16] MEDS: IPRATROPIUM 0.5MG/ALBUTEROL 2.5MG INH SOL UD 3ML (DUONEB)(J7620) NEB ×6 (06:23→22:25)
[2017-10-16 06:25] LABS: ANION GAP 8 MEQ/L (8-16); BLOOD UREA NITROGEN 37 MG/DL (7-18); CALCIUM LEVEL 8.7 MG/DL (8.8-10.2); CARBON DIOXIDE LEVEL 29 MEQ/L (21-32); CHLORIDE LEVEL 101 MEQ/L (98-107); CK-MB VALUE MASS < 1.0 NG/ML (<3.6); CPK CREATINE PHOSPHOKINASE 85 U/L (26-192); GLOMERULAR FILTRATION RATE 6.8 (>45); GLUCOSE, FASTING 107 MG/DL (70-100); MB/CK RELATIVE INDEX 1.17 (< OR =4); POTASSIUM SERUM 4.1 MEQ/L (3.5-5.1); SODIUM LEVEL 138 MEQ/L (136-145); TROPONIN I < 0.02 NG/ML (< 0.10)
[2017-10-16 06:38] LABS: ABG BASE EXCESS 2.4 (-2.0-2.0); ABG HCO3 28.1 MEQ/L (22.0-26.0); ABG O2 SATURATION 99.1 % (95.0-99.0); ABG PARTIAL PRESSURE CO2 48.1 mmHg (35.0-45.0); ABG PARTIAL PRESSURE O2 259.3 mmHg (75.0-100.0); ABG STANDARD HCO3 26.7 MEQ/L (22.0-26.0); ABG TOTAL CO2 29.6 MEQ/L (23.0-31.0); ABG pH (ARTERIAL) 7.385 UNITS (7.350-7.450)
[2017-10-16] MEDS: methylPREDNISolone INJ 125 MG/2 ML VIAL (J2930) IV ×3 (07:28→21:23)
[2017-10-16] MEDS: METOPROLOL 5 MG/5 ML VIAL IV ×3 (07:29→07:57)
[2017-10-16] MEDS: METOPROLOL TART 50 MG TAB PO ×2 (07:29→21:22)
[2017-10-16] MEDS ORDERED: GLUCAGON FOR INJ 1 MG VIAL (J1610) SC (07:30)
[2017-10-16] MEDS ORDERED: GLUCOSE 4 GM CHEW TABLET PO (07:30)
[2017-10-16] MEDS: HumaLOG INSULIN (NovoLOG) PER UNIT SC ×4 (07:30→21:00)
[2017-10-16] MEDS ORDERED: DEXTROSE 50% 50 ML SYRINGE IV (07:30)
[2017-10-16] MEDS: PANTOPRAZOLE 40MG TAB (PROTONIX) PO (08:10)
[2017-10-16] MEDS: ASPIRIN 325 MG TAB PO (08:10)
[2017-10-16 08:12] LABS: BEDSIDE GLUCOSE 94 MG/DL (80-115)
[2017-10-16] MEDS ORDERED: CYCLOBENZAPRINE 5MG TABLET PO (10:45)
[2017-10-16] MEDS ORDERED: ONDANSETRON 4 MG ORAL DISINTEGRATING TAB (S0181) PO (10:45)
[2017-10-16] MEDS ORDERED: BISACODYL 10 MG SUPP PR (10:45)
[2017-10-16] MEDS: LEVALBUTEROL 1.25 MG/0.5 ML CONCENTRATE NEB NEB (11:37)
[2017-10-16] MEDS: MAGNESIUM OXIDE 400 MG TAB (MAG-OX) PO (12:44)
[2017-10-16 12:46] LABS: BEDSIDE GLUCOSE 339 MG/DL (80-115)
[2017-10-16] MEDS: (RENVELA) SEVELAMER **CARBONate** 800 MG TAB PO ×2 (14:13→18:00)
[2017-10-16] MEDS: [UNRECOGNIZED DRUG - REMARK] XX (16:00)
[2017-10-16] MEDS: LACTIC ACID 12% LOTION 225 GM BTL TOP (21:00)
[2017-10-16] MEDS: LEVEMIR (INSULIN DETEMIR) 1 UNITS/0.01ML SC (21:23)
[2017-10-16] MEDS: traZODone 100 MG TAB PO (21:25)
[2017-10-16] MEDS: ROSUVASTATIN 10 MG TAB (CRESTOR) PO (22:02)
[2017-10-17] MEDS: IPRATROPIUM 0.5MG/ALBUTEROL 2.5MG INH SOL UD 3ML (DUONEB)(J7620) NEB ×4 (02:07→20:00)
[2017-10-17 03:16] LABS: BEDSIDE GLUCOSE 346 MG/DL (80-115)
[2017-10-17] MEDS: LEVOTHYROXINE 75MCG TABLET (0.075MG) PO (06:21)
[2017-10-17] MEDS: PANTOPRAZOLE 40MG TAB (PROTONIX) PO (06:21)
[2017-10-17] MEDS: MAGNESIUM OXIDE 400 MG TAB (MAG-OX) PO (06:21)
[2017-10-17] MEDS: ASPIRIN 325 MG TAB PO (06:21)
[2017-10-17] MEDS: methylPREDNISolone INJ 125 MG/2 ML VIAL (J2930) IV ×3 (06:22→22:14)
[2017-10-17 07:16] LABS: BEDSIDE GLUCOSE 209 MG/DL (80-115)
[2017-10-17] MEDS: (RENVELA) SEVELAMER **CARBONate** 800 MG TAB PO ×3 (07:42→19:33)
[2017-10-17] MEDS: HumaLOG INSULIN (NovoLOG) PER UNIT SC ×4 (07:43→20:25)
[2017-10-17] MEDS: NORCO, ANEXSIA 5/325MG TABLET (HYDROcodone/ACETAMINOPHEN) PO (07:44)
[2017-10-17] MEDS: METOPROLOL TART 50 MG TAB PO ×3 (07:46→22:15)
[2017-10-17] MEDS: LACTIC ACID 12% LOTION 225 GM BTL TOP (09:00)
[2017-10-17 10:56] LABS: HEMATOCRIT 35.4 % (36.0-47.0); HEMOGLOBIN 11.2 g/dl (12.0-16.0); MEAN CORPUSCULAR HEMOGLOBIN 31.6 pg (27.0-33.0); MEAN CORPUSCULAR HGB CONC 31.6 g/dl (32.0-36.5); PLATELET COUNT, AUTOMATED 105 10^3/uL (150-450); RED BLOOD COUNT 3.54 10^6/uL (4.00-5.40); RED CELL DISTRIBUTION WIDTH 14.2 % (11.5-14.5); WHITE BLOOD COUNT 9.2 10^3/uL (4.0-10.0)
[2017-10-17 11:29] LABS: ALBUMIN 3.1 GM/DL (3.2-5.2); ALBUMIN/GLOBULIN RATIO 0.82 (1.00-1.93); ALKALINE PHOSPHATASE 125 U/L (45-117); ALT/SGPT 27 U/L (12-78); ANION GAP 14 MEQ/L (8-16); AST/SGOT 14 U/L (7-37); BILIRUBIN,TOTAL 0.2 MG/DL (0.2-1.0); BLOOD UREA NITROGEN 76 MG/DL (7-18); CALCIUM LEVEL 8.9 MG/DL (8.8-10.2); CARBON DIOXIDE LEVEL 26 MEQ/L (21-32); CHLORIDE LEVEL 94 MEQ/L (98-107); GLOMERULAR FILTRATION RATE 4.7 (>45); GLUCOSE, FASTING 307 MG/DL (70-100); POTASSIUM SERUM 4.8 MEQ/L (3.5-5.1); SODIUM LEVEL 134 MEQ/L (136-145); TOTAL PROTEIN 6.9 GM/DL (6.4-8.2)
[2017-10-17 11:38] LABS: CREATININE FOR GFR 9.16 MG/DL (0.55-1.30)
[2017-10-17 11:44] LABS: BEDSIDE GLUCOSE 285 MG/DL (80-115)
[2017-10-17] MEDS: ACETAMINOPHEN TAB 650MG DOSE (2X325MG) PO (14:36)
[2017-10-17] MEDS: CALCITRIOL 0.25 MCG CAP (S0169) PO (19:33)
[2017-10-17] MEDS: [UNRECOGNIZED DRUG - REMARK] XX (19:33)
[2017-10-17] MEDS: ROSUVASTATIN 10 MG TAB (CRESTOR) PO (20:30)
[2017-10-17] MEDS: LEVEMIR (INSULIN DETEMIR) 1 UNITS/0.01ML SC (20:30)
[2017-10-17] MEDS: traZODone 100 MG TAB PO (20:30)
[2017-10-17 20:35] LABS: BEDSIDE GLUCOSE 247 MG/DL (80-115)
[2017-10-18] MEDS: IPRATROPIUM 0.5MG/ALBUTEROL 2.5MG INH SOL UD 3ML (DUONEB)(J7620) NEB ×4 (02:00→18:15)
[2017-10-18 04:58] LABS: HEMATOCRIT 35.4 % (36.0-47.0); HEMOGLOBIN 11.1 g/dl (12.0-16.0); MEAN CORPUSCULAR HEMOGLOBIN 31.9 pg (27.0-33.0); MEAN CORPUSCULAR HGB CONC 31.4 g/dl (32.0-36.5); MEAN CORPUSCULAR VOLUME 101.7 fl (80.0-96.0); PLATELET COUNT, AUTOMATED 100 10^3/uL (150-450); RED BLOOD COUNT 3.48 10^6/uL (4.00-5.40); RED CELL DISTRIBUTION WIDTH 14.3 % (11.5-14.5); WHITE BLOOD COUNT 8.4 10^3/uL (4.0-10.0)
[2017-10-18 05:15] LABS: ANION GAP 10 MEQ/L (8-16); BLOOD UREA NITROGEN 44 MG/DL (7-18); CALCIUM LEVEL 8.8 MG/DL (8.8-10.2); CARBON DIOXIDE LEVEL 28 MEQ/L (21-32); CHLORIDE LEVEL 97 MEQ/L (98-107); CREATININE FOR GFR 5.51 MG/DL (0.55-1.30); GLOMERULAR FILTRATION RATE 8.4 (>45); GLUCOSE, FASTING 213 MG/DL (70-100); POTASSIUM SERUM 4.6 MEQ/L (3.5-5.1); SODIUM LEVEL 135 MEQ/L (136-145)
[2017-10-18] MEDS: LEVOTHYROXINE 75MCG TABLET (0.075MG) PO (06:08)
[2017-10-18] MEDS: methylPREDNISolone INJ 125 MG/2 ML VIAL (J2930) IV ×2 (06:09→14:49)
[2017-10-18] MEDS: METOPROLOL TART 50 MG TAB PO ×3 (06:09→21:40)
[2017-10-18] MEDS: HumaLOG INSULIN (NovoLOG) PER UNIT SC ×4 (08:29→21:41)
[2017-10-18] MEDS: (RENVELA) SEVELAMER **CARBONate** 800 MG TAB PO ×3 (08:29→17:26)
[2017-10-18] MEDS: ASPIRIN 325 MG TAB PO (08:29)
[2017-10-18] MEDS: MAGNESIUM OXIDE 400 MG TAB (MAG-OX) PO (08:29)
[2017-10-18] MEDS: PANTOPRAZOLE 40MG TAB (PROTONIX) PO (08:29)
[2017-10-18 11:42] LABS: BEDSIDE GLUCOSE 257 MG/DL (80-115)
[2017-10-18] MEDS: [UNRECOGNIZED DRUG - REMARK] XX (15:11)
[2017-10-18 17:29] LABS: BEDSIDE GLUCOSE 234 MG/DL (80-115)
[2017-10-18 21:00] LABS: BEDSIDE GLUCOSE 300 MG/DL (80-115)
[2017-10-18] MEDS: traZODone 100 MG TAB PO (21:40)
[2017-10-18] MEDS: ROSUVASTATIN 10 MG TAB (CRESTOR) PO (21:40)
[2017-10-18] MEDS: LEVEMIR (INSULIN DETEMIR) 1 UNITS/0.01ML SC (21:40)
[2017-10-18] MEDS: diazePAM 5 MG TAB PO (21:43)
[2017-10-19] MEDS: IPRATROPIUM 0.5MG/ALBUTEROL 2.5MG INH SOL UD 3ML (DUONEB)(J7620) NEB ×2 (02:00→07:22)
[2017-10-19] MEDS: methylPREDNISolone INJ 125 MG/2 ML VIAL (J2930) IV (03:22)
[2017-10-19] MEDS: ACETAMINOPHEN TAB 650MG DOSE (2X325MG) PO (03:23)
[2017-10-19 05:16] LABS: HEMATOCRIT 35.7 % (36.0-47.0); HEMOGLOBIN 11.4 g/dl (12.0-16.0); MEAN CORPUSCULAR HEMOGLOBIN 31.7 pg (27.0-33.0); MEAN CORPUSCULAR HGB CONC 31.9 g/dl (32.0-36.5); MEAN CORPUSCULAR VOLUME 99.2 fl (80.0-96.0); PLATELET COUNT, AUTOMATED 111 10^3/uL (150-450); RED CELL DISTRIBUTION WIDTH 13.9 % (11.5-14.5); WHITE BLOOD COUNT 9.8 10^3/uL (4.0-10.0)
[2017-10-19 05:27] LABS: ANION GAP 12 MEQ/L (8-16); BLOOD UREA NITROGEN 95 MG/DL (7-18); CALCIUM LEVEL 8.5 MG/DL (8.8-10.2); CARBON DIOXIDE LEVEL 25 MEQ/L (21-32); CHLORIDE LEVEL 96 MEQ/L (98-107); CREATININE FOR GFR 7.89 MG/DL (0.55-1.30); GLOMERULAR FILTRATION RATE 5.5 (>45); GLUCOSE, FASTING 174 MG/DL (70-100); POTASSIUM SERUM 5.1 MEQ/L (3.5-5.1); SODIUM LEVEL 133 MEQ/L (136-145)
[2017-10-19] MEDS: METOPROLOL TART 50 MG TAB PO (05:43)
[2017-10-19] MEDS: LEVOTHYROXINE 75MCG TABLET (0.075MG) PO (05:43)
[2017-10-19] MEDS: (RENVELA) SEVELAMER **CARBONate** 800 MG TAB PO ×2 (07:40→11:46)
[2017-10-19] MEDS: HumaLOG INSULIN (NovoLOG) PER UNIT SC ×2 (07:41→11:47)
[2017-10-19] MEDS: ASPIRIN 325 MG TAB PO (08:50)
[2017-10-19] MEDS: MAGNESIUM OXIDE 400 MG TAB (MAG-OX) PO (08:50)
[2017-10-19] MEDS: PANTOPRAZOLE 40MG TAB (PROTONIX) PO (08:50)
[2017-10-19] MEDS: methylPREDNISolone 80MG/ML SUSP 1ML VIAL (J1040) IM (11:28)
[2017-10-19 11:49] LABS: BEDSIDE GLUCOSE 284 MG/DL (80-115)
[2017-10-19] MEDS ORDERED: methylPREDNISolone INJ 125 MG/2 ML VIAL (J2930) IV (15:00)
== END 2017-10-19 12:20 | disposition home or self-care (01) | DRG 190 ==
LOC: M ED 05:24 → M ED INP 07:29 → M PCU 21:43
PROC: 5A1D70Z Performance of Urinary Filtration, Intermittent, Less than 6 Hours Per Day (ICD-10-PCS; principal; 2017-10-17)
DX: J44.1 Chronic obstructive pulmonary disease with (acute) exacerbation (principal); N18.6 End stage renal disease; E87.2 Acidosis; I50.32 Chronic diastolic (congestive) heart failure; I48.92 Unspecified atrial flutter; N25.81 Secondary hyperparathyroidism of renal origin; I13.2 Hypertensive heart and chronic kidney disease with heart failure and with stage 5 chronic kidney disease, or end stage renal disease; E11.22 Type 2 diabetes mellitus with diabetic chronic kidney disease; E03.9 Hypothyroidism, unspecified; E78.5 Hyperlipidemia, unspecified; D63.1 Anemia in chronic kidney disease; G47.33 Obstructive sleep apnea (adult) (pediatric); Z90.710 Acquired absence of both cervix and uterus; Z95.828 Presence of other vascular implants and grafts; Z87.891 Personal history of nicotine dependence; Z88.1 Allergy status to other antibiotic agents; Z88.8 Allergy status to other drugs, medicaments and biological substances; Z99.2 Dependence on renal dialysis; Z79.4 Long term (current) use of insulin; Z99.81 Dependence on supplemental oxygen

== ENCOUNTER 2017-11-20 22:32 | Emergency (ER) | payer MEDICARE, MEDICAID ==
[2017-11-21] MEDS: NORCO, ANEXSIA 5/325MG TABLET (HYDROcodone/ACETAMINOPHEN) PO (00:26)
== END 2017-11-21 01:00 | disposition home or self-care (01) ==
LOC: M ED 22:32
DX: M17.12 Unilateral primary osteoarthritis, left knee (principal); E11.9 Type 2 diabetes mellitus without complications; N18.6 End stage renal disease; E78.9 Disorder of lipoprotein metabolism, unspecified; K21.9 Gastro-esophageal reflux disease without esophagitis; Z79.899 Other long term (current) drug therapy; Z79.4 Long term (current) use of insulin; Z79.890 Hormone replacement therapy; Z79.82 Long term (current) use of aspirin; Z88.1 Allergy status to other antibiotic agents
CPT/HCPCS: 73564

== ENCOUNTER 2017-11-25 19:21 | Emergency (ER) | payer MEDICARE, MEDICAID | END 2017-11-25 21:30 | disposition home or self-care (01) | LOC: M ED 19:21 | DX: R60.0 Localized edema (principal); M79.662 Pain in left lower leg; I50.9 Heart failure, unspecified; E78.5 Hyperlipidemia, unspecified; K21.9 Gastro-esophageal reflux disease without esophagitis; Z87.891 Personal history of nicotine dependence; Z88.8 Allergy status to other drugs, medicaments and biological substances; Z79.899 Other long term (current) drug therapy; Z79.82 Long term (current) use of aspirin; Z79.4 Long term (current) use of insulin | CPT/HCPCS: 93971 ==

== ENCOUNTER 2018-01-31 19:51 | Emergency (ER) | payer MEDICARE, MEDICAID ==
[2018-01-31] MEDS ORDERED: ACETAMINOPH W/CODEINE #3 TAB UD PO ×2 (22:15)
== END 2018-01-31 22:18 | disposition home or self-care (01) ==
LOC: M ED 19:51
DX: M25.561 Pain in right knee (principal); M25.562 Pain in left knee; I50.9 Heart failure, unspecified; M79.89 Other specified soft tissue disorders; E10.9 Type 1 diabetes mellitus without complications; I10 Essential (primary) hypertension; N18.5 Chronic kidney disease, stage 5; Z99.2 Dependence on renal dialysis; F41.9 Anxiety disorder, unspecified; F32.9 Major depressive disorder, single episode, unspecified; Z87.891 Personal history of nicotine dependence; Z86.79 Personal history of other diseases of the circulatory system; Z79.4 Long term (current) use of insulin; Z79.82 Long term (current) use of aspirin; Z79.899 Other long term (current) drug therapy; Z88.8 Allergy status to other drugs, medicaments and biological substances
CPT/HCPCS: 93970

== ENCOUNTER 2018-02-17 13:23 | Emergency (ER) | payer MEDICARE, MEDICAID | END 2018-02-17 14:48 | disposition home or self-care (01) | LOC: M ED 13:23 | DX: S80.02XA Contusion of left knee, initial encounter (principal); W01.0XXA Fall on same level from slipping, tripping and stumbling without subsequent striking against object, initial encounter; Y92.410 Unspecified street and highway as the place of occurrence of the external cause; Z87.891 Personal history of nicotine dependence | CPT/HCPCS: 73564 ==

== ENCOUNTER 2018-02-25 15:29 | Emergency (ER) | payer MEDICARE, MEDICAID | END 2018-02-25 18:11 | disposition home or self-care (01) | LOC: M ED 15:29 | DX: M17.12 Unilateral primary osteoarthritis, left knee (principal); M77.32 Calcaneal spur, left foot; M85.862 Other specified disorders of bone density and structure, left lower leg; E11.9 Type 2 diabetes mellitus without complications; M19.90 Unspecified osteoarthritis, unspecified site; G47.30 Sleep apnea, unspecified; N18.6 End stage renal disease; Z99.2 Dependence on renal dialysis; I48.92 Unspecified atrial flutter; I10 Essential (primary) hypertension; I50.9 Heart failure, unspecified; E78.5 Hyperlipidemia, unspecified; J44.9 Chronic obstructive pulmonary disease, unspecified; Z87.891 Personal history of nicotine dependence; Z79.82 Long term (current) use of aspirin; Z79.4 Long term (current) use of insulin; Z79.899 Other long term (current) drug therapy; Z88.8 Allergy status to other drugs, medicaments and biological substances | CPT/HCPCS: 73552 ==

== ENCOUNTER 2018-02-27 12:49 | Emergency (ER) | payer MEDICARE, MEDICAID ==
[2018-02-27] MEDS: ONDANSETRON 4 MG ORAL DISINTEGRATING TAB (Q0162 PER 1MG) PO (14:48)
[2018-02-27] MEDS: MORPHINE 4 MG/ML 1ML VIAL/SYRINGE (J2270) IM (14:49)
== END 2018-02-27 15:22 | disposition home or self-care (01) ==
LOC: M ED 12:49
DX: M54.42 Lumbago with sciatica, left side (principal); I11.0 Hypertensive heart disease with heart failure; I50.9 Heart failure, unspecified; J44.9 Chronic obstructive pulmonary disease, unspecified; E11.9 Type 2 diabetes mellitus without complications; N18.6 End stage renal disease; E78.00 Pure hypercholesterolemia, unspecified; G47.30 Sleep apnea, unspecified; K21.9 Gastro-esophageal reflux disease without esophagitis; E03.9 Hypothyroidism, unspecified; E55.9 Vitamin D deficiency, unspecified; F41.9 Anxiety disorder, unspecified; F33.9 Major depressive disorder, recurrent, unspecified; Z99.2 Dependence on renal dialysis; Z79.899 Other long term (current) drug therapy; Z79.82 Long term (current) use of aspirin; Z79.4 Long term (current) use of insulin; Z88.1 Allergy status to other antibiotic agents
CPT/HCPCS: J2270

== ENCOUNTER 2018-03-16 21:03 | Emergency (ER) | payer OTHER, MEDICARE, MEDICAID ==
[2018-03-16] MEDS: MORPHINE 4 MG/ML 1ML VIAL/SYRINGE (J2270) IM (21:44)
== END 2018-03-16 22:44 | disposition home or self-care (01) ==
LOC: M ED 21:03
DX: S80.02XA Contusion of left knee, initial encounter (principal); V49.40XA Driver injured in collision with unspecified motor vehicles in traffic accident, initial encounter; Y92.410 Unspecified street and highway as the place of occurrence of the external cause; E10.9 Type 1 diabetes mellitus without complications; I10 Essential (primary) hypertension; E03.9 Hypothyroidism, unspecified; Z88.8 Allergy status to other drugs, medicaments and biological substances; Z79.899 Other long term (current) drug therapy; Z79.82 Long term (current) use of aspirin
CPT/HCPCS: J2270

== ENCOUNTER → 2018-06-11 | Outpatient (CLI) | payer OTHER, MEDICARE, MEDICAID | LOC: M RAD 10:38 | DX: M79.651 Pain in right thigh (principal); M76.891 Other specified enthesopathies of right lower limb, excluding foot | CPT/HCPCS: 73502 ==

== ENCOUNTER 2018-07-11 15:44 | Emergency (ER) | payer MEDICARE, MEDICAID, OTHER ==
[2018-07-11] MEDS: PERCOCET 5MG/325MG TAB PO (16:30)
== END 2018-07-11 16:39 | disposition home or self-care (01) ==
LOC: M ED 15:44
DX: M54.31 Sciatica, right side (principal); M25.561 Pain in right knee; I12.0 Hypertensive chronic kidney disease with stage 5 chronic kidney disease or end stage renal disease; E11.9 Type 2 diabetes mellitus without complications; J44.9 Chronic obstructive pulmonary disease, unspecified; N18.6 End stage renal disease; G47.30 Sleep apnea, unspecified; M16.11 Unilateral primary osteoarthritis, right hip; K21.9 Gastro-esophageal reflux disease without esophagitis; Z99.2 Dependence on renal dialysis; E03.9 Hypothyroidism, unspecified; E55.9 Vitamin D deficiency, unspecified; Z79.899 Other long term (current) drug therapy; Z79.890 Hormone replacement therapy; Z79.82 Long term (current) use of aspirin; Z79.4 Long term (current) use of insulin; Z88.1 Allergy status to other antibiotic agents
CPT/HCPCS: 99282

== ENCOUNTER 2018-07-12 19:52 | Emergency (ER) | payer MEDICARE, MEDICAID ==
[~2018-07-12] VITALS: Ht 162.6 cm; Wt 77.3 kg
[~2018-07-12 19:52] MED LIST changes: -AUGM500T34 PO; -FLAG500T PO; -FLOM0.4C39 PO; -MAGN1TAB25 PO; -MIRA3350 PO; -OXYC1TAB23 PO; -PERC5TAB12 PO; -SENO8.6T10 PO; -STIO1AER IN; -[UNRECOGNIZED DRUG - CODE] IJ
[2018-07-12] MEDS ORDERED: ONDANSETRON 4MG/2ML VIAL (J2405) As Ordered ONE (20:34)
[2018-07-12] MEDS ORDERED: MORPHINE 4 MG/ML 1ML VIAL/SYRINGE (J2270) As Ordered ONE (20:34)
[2018-07-12] MEDS ORDERED: ONDANSETRON 4MG/2ML VIAL (J2405) IV ONE (20:45)
[2018-07-12] MEDS ORDERED: MORPHINE 4 MG/ML 1ML VIAL/SYRINGE (J2270) IV ONE (20:45)
[2018-07-12 20:55] LABS: BASO % 0.4 % (0.0-1.0); HEMATOCRIT 34.6 % (36.0-47.0); HEMOGLOBIN 11.3 g/dl (12.0-15.5); LYMPH # 0.8 10^3/uL (1.5-4.5); MEAN CORPUSCULAR HEMOGLOBIN 32.8 pg (27.0-33.0); MEAN CORPUSCULAR HGB CONC 32.7 g/dl (32.0-36.5); MEAN CORPUSCULAR VOLUME 100.3 fl (80.0-96.0); MONO # 0.5 10^3/uL (0.0-0.8); MONO % 6.6 % (0.0-5.0); NEUTROPHILS # 6.8 10^3/uL (1.8-7.7); NEUTROPHILS % 82.5 % (36.0-66.0); PLATELET COUNT, AUTOMATED 114 10^3/uL (150-450); RED BLOOD COUNT 3.45 10^6/uL (4.00-5.40); WHITE BLOOD COUNT 8.2 10^3/uL (4.0-10.0)
[2018-07-12 21:48] LABS: ALBUMIN 3.8 GM/DL (3.2-5.2); ALT/SGPT 24 U/L (12-78); BILIRUBIN,DIRECT < 0.1 MG/DL (0.0-0.2); BILIRUBIN,TOTAL 0.4 MG/DL (0.2-1.0); BLOOD UREA NITROGEN 38 MG/DL (7-18); CARBON DIOXIDE LEVEL 25 MEQ/L (21-32); CHLORIDE LEVEL 98 MEQ/L (98-107); CREATININE FOR GFR 8.01 MG/DL (0.55-1.30); GLOMERULAR FILTRATION RATE 5.4 (>45); GLUCOSE, FASTING 104 MG/DL (70-100); LIPASE 142 U/L (73-393); POTASSIUM SERUM 5.5 MEQ/L (3.5-5.1); SODIUM LEVEL 137 MEQ/L (136-145); TOTAL PROTEIN 7.9 GM/DL (6.4-8.2)
[2018-07-12] MEDS ORDERED: MORPHINE 4 MG/ML 1ML VIAL/SYRINGE (J2270) IV PRN (22:30)
--- NOTE | 2018-07-12 22:39 | REPVR ---
EXAM: CT Abdomen and Pelvis Without Contrast EXAM DATE/TIME: 07/12/2018 9:18 PM CLINICAL HISTORY: 62 years old, female; Pain; Abdominal pain; Generalized; Prior surgery; Additional info: Flank pain TECHNIQUE: Axial computed tomography images of the abdomen and pelvis without contrast. All CT scans at this facility use at least one of these dose optimization techniques: automated exposure control; mA and/or kV adjustment per patient size (includes targeted exams where dose is matched to clinical indication); or iterative reconstruction. Coronal and sagittal reformatted images were created and reviewed. COMPARISON: CT ABD PELVIS W/O FOL BY WIT 06/10/2017 3:03 PM FINDINGS: Lower thorax: Mild linear stranding and groundglass at the lung bases, likely due to atelectasis and/or scarring. Small hiatal hernia. ABDOMEN: Liver: Mild hepatomegaly. Subtle nodularity of the hepatic contour, suggesting cirrhosis. Gallbladder and bile ducts: Mild gallbladder distention without radiodense gallstones. Pancreas: Unremarkable. Spleen: Mild splenomegaly. Coarse calcified splenic granulomata. Adrenals: Unremarkable. Kidneys and ureters: Mild bilateral renal atrophy. Multiple subcentimeter and pericentimeter renal lesions bilaterally, some of which are likely cysts and some of which are likely complex cysts, similar to prior. Mild left-sided hydronephrosis and perinephric stranding, secondary to a 4 mm proximal left ureteral calculus (axial image 65 and coronal image 63). Nonobstructing left renal calculi. Stomach and bowel: Colonic diverticulosis without evidence of diverticulitis. No obstruction. No bowel wall thickening. No pneumatosis. Appendix: Normal. PELVIS: Bladder: Unremarkable. Reproductive: Status post hysterectomy. ABDOMEN and PELVIS: Intraperitoneal space: No free fluid. No organized fluid collection. No free air. Bones/joints: No acute osseous abnormality. Osteopenia. Degenerative changes. Soft tissues: Unremarkable. Vasculature: Mild atherosclerotic disease. No aneurysm. Lymph nodes: Mildly prominent leo-portal and portacaval lymph nodes, similar to prior and likely reactive. IMPRESSION: 1. Mild left-sided hydronephrosis and perinephric stranding, secondary to a 4 mm proximal left ureteral calculus. 2. Mild hepatosplenomegaly. Subtle nodularity of the hepatic contour, suggesting cirrhosis. 3. Additional findings, as above. COMMENT: Consistent with the [employer]'s Incidental Findings Committee Report (J Am Edouard Radiol 2010): Unless the patient's specific circumstances suggest otherwise, any liver lesion 0.5 cm or less, any cystic kidney lesion less than 1.0 cm, and/or any adrenal lesion 1.0 cm or less not otherwise characterized in this report as possessing suspicious or indeterminate imaging features is/are highly likely to be benign and do not require follow-up imaging or biopsy. Electronically signed by: Haider Santoyo On 07/12/2018 22:38:58 PM
[2018-07-13] VITALS: BP 130/68
[2018-07-13] MEDS ORDERED: FLOM0.4C39 PO (00:18)
[2018-07-13] MEDS ORDERED: PERC5TAB12 PO (00:18)
[2018-07-13] MEDS ORDERED: TAMSULOSIN 0.4 MG CAP PO ONE (00:30)
[2018-07-13] MEDS ORDERED: OXYCODONE/APAP 5MG/325MG(BULK FOR ED) 1 TABLET PO ONE (00:30)
== END 2018-07-13 00:41 | disposition home or self-care (01) ==
LOC: EDBD 19:52 → M ED 19:52
DX: N20.1 Calculus of ureter (principal); E11.9 Type 2 diabetes mellitus without complications; N18.6 End stage renal disease; Z79.899 Other long term (current) drug therapy; Z79.4 Long term (current) use of insulin; Z88.1 Allergy status to other antibiotic agents
CPT/HCPCS: 74176; 80048; 80076; 81001; 83690; 85025; 87086; 96374; 96375; 96376; 99285; J2270; J2405

== ENCOUNTER → 2018-07-12 | Outpatient (CLI) | payer MEDICARE, MEDICAID ==
[~2018-07-12] MED LIST changes: +ACET30TAB PO; +AMMO12CR4 TOP; +AUGM500T34 PO; +CAPS0.1C2 EX; +CEPH250T PO; -DRIS50002 PO; +DRIS50003 PO; +DULC10SU2 PR; +FLAG500T PO; +FLOM0.4C39 PO; +HEPA50VL IV; +KEFL250C11 PO; +LOPR1TAB6 PO; +MAGN1TAB25 PO; +METO50TA7 PO; +MIRA3350 PO; +MUCI600T37 PO; +NORCOTAB PO; +OSEL30CA PO; +OXYC1TAB15 PO; +OXYC1TAB23 PO; +PERC5TAB12 PO; +PRED10TA2 PO; +SENN8.6C PO; +SENO8.6T10 PO; +STIO1AER IN; +ZITHTAB PO; +ZOFR4TAB14 PO; -ZOFR4TAB3 PO; +ZYRT10CA5 PO; -ZYRT10TA2 PO; +[UNRECOGNIZED DRUG - CODE] IJ; +[UNRECOGNIZED DRUG - CODE] IVP
[2018-07-12 18:06] LABS: BASO % 0.3 % (0.0-1.0); HEMATOCRIT 32.1 % (36.0-47.0); HEMOGLOBIN 10.1 g/dl (12.0-15.5); LYMPH # 0.8 10^3/uL (1.5-4.5); LYMPH % 10.2 % (24.0-44.0); MEAN CORPUSCULAR HEMOGLOBIN 32.4 pg (27.0-33.0); MEAN CORPUSCULAR HGB CONC 31.5 g/dl (32.0-36.5); MEAN CORPUSCULAR VOLUME 102.9 fl (80.0-96.0); MONO # 0.5 10^3/uL (0.0-0.8); MONO % 6.5 % (0.0-5.0); NEUTROPHILS # 6.4 10^3/uL (1.8-7.7); NEUTROPHILS % 82.6 % (36.0-66.0); PLATELET COUNT, AUTOMATED 103 10^3/uL (150-450); RED BLOOD COUNT 3.12 10^6/uL (4.00-5.40); WHITE BLOOD COUNT 7.8 10^3/uL (4.0-10.0)
[2018-07-12 18:13] LABS: ALBUMIN 3.7 GM/DL (3.2-5.2); BILIRUBIN,TOTAL 0.4 MG/DL (0.2-1.0); CALCIUM LEVEL 8.8 MG/DL (8.8-10.2); CREATININE FOR GFR 7.79 MG/DL (0.55-1.30); GLOMERULAR FILTRATION RATE 5.6 (>45); POTASSIUM SERUM 4.9 MEQ/L (3.5-5.1); TOTAL PROTEIN 7.4 GM/DL (6.4-8.2)
[2018-07-12 18:32] LABS: ERYTHROCYTE SEDIMENTATION RATE 56 mm/hr (0-30)
--- NOTE | 2018-07-12 20:51 | REP ---
ABDOMEN FLAT UPRIGHT PA CHEST, THREE VIEWS: Back pain. COMPARISON: 10/20/2017 Air is present in the small and large intestine. There air no air fluid levels or dilated loops of intestine. There is no pneumoperitoneum. The lungs are clear. The cardiac silhouette is enlarged. IMPRESSION:1. Nonspecific bowel gas pattern. 2. Cardiomegaly. Electronically Signed by Arslan Duran MD 07/13/2018 08:34 A
== END ==
LOC: M LAB 17:05
PROVIDERS: ATTEND Family Medicine
DX: I51.7 Cardiomegaly (principal); R11.2 Nausea with vomiting, unspecified; M54.5 Low back pain
CPT/HCPCS: 36415; 74021; 80053; 82948; 85025; 85652; G0463

== ENCOUNTER → 2018-07-16 | Outpatient (CLI) | payer MEDICARE, MEDICAID ==
[~2018-07-16] MED LIST changes: +AUGM500T34 PO; +FLAG500T PO; +FLOM0.4C39 PO; +MAGN1TAB25 PO; +OXYC1TAB23 PO; +PERC5TAB12 PO; +STIO1AER IN; +[UNRECOGNIZED DRUG - CODE] IJ
--- NOTE | 2018-07-16 12:41 | REP ---
KUB, ONE VIEW: HISTORY: Kidney stone. Air is present in small and large intestine. There are no air-fluid levels or dilated loops of intestine. There is no pneumoperitoneum. There is no definite nephrocalcinosis. IMPRESSION: Nonspecific bowel gas pattern. Electronically Signed by Arslan Duran MD 07/16/2018 12:45 P
[2018-07-16 13:33] LABS: AMORPHOUS SEDIMENT SMALL (NEGATIVE); APPEARANCE, URINE CLOUDY (CLEAR); BACTERIA, URINE AUTO NEGATIVE (NEGATIVE); BILIRUBIN, URINE AUTO NEGATIVE (NEGATIVE); BLOOD, URINE BLOOD 3+ (NEGATIVE); COLOR, URINE AMBER (YELLOW); GLUCOSE, URINE (UA) AUTO NEGATIVE (NEGATIVE); KETONE, URINE AUTO NEGATIVE (NEGATIVE); LEUKOCYTE ESTERASE, URINE AUTO 1+ (NEGATIVE); NITRITE, URINE AUTO NEGATIVE (NEGATIVE); PROTEIN, URINE AUTO 2+ mg/dL (NEGATIVE); RBC, URINE AUTO TNTC /HPF (0-3); SPECIFIC GRAVITY URINE AUTO 1.016 (1.002-1.035); SQUAMOUS EPITHELIAL CELL UR AU 3 /HPF (0-6); UROBILINOGEN, URINE AUTO 0.2 mg/dL (0.0-2.0); WBC, URINE AUTO TNTC /HPF (0-3)
== END ==
LOC: M SMT 10:02
PROVIDERS: ATTEND Nurse Practitioner Family
DX: N20.0 Calculus of kidney (principal)
CPT/HCPCS: 74018; 81001; 87086; G0463

== ENCOUNTER 2018-07-21 22:48 | Observation (INO) | payer MEDICARE, MEDICAID ==
[~2018-07-21] VITALS: Ht 152.4 cm; Wt 82.7 kg
[~2018-07-21 22:48] MED LIST changes: -AUGM500T34 PO; -FLAG500T PO; -MAGN1TAB25 PO; -OXYC1TAB23 PO; -STIO1AER IN; -[UNRECOGNIZED DRUG - CODE] IJ
[2018-07-21] MEDS ORDERED: ONDANSETRON 4MG/2ML VIAL (J2405) IV ONE (23:15)
[2018-07-22] MEDS: MORPHINE 2 MG/ML 1ML SYRINGE (J2270) IV PRN ×2 (00:15→03:08)
--- NOTE | 2018-07-22 00:30 | REPVR ---
EXAM: CT Abdomen and Pelvis Without Contrast EXAM DATE/TIME: 07/21/2018 11:05 PM CLINICAL HISTORY: 62 years old, female; Pain; Abdominal pain; Localized; Left; Additional info: Left flank pain TECHNIQUE: Axial computed tomography images of the abdomen and pelvis without contrast. All CT scans at this facility use at least one of these dose optimization techniques: automated exposure control; mA and/or kV adjustment per patient size (includes targeted exams where dose is matched to clinical indication); or iterative reconstruction. Coronal and sagittal reformatted images were created and reviewed. COMPARISON: CT ABD PELVIS W/O CONTRAST 07/12/2018 9:06 PM FINDINGS: Lower thorax: Minimal bibasilar fibro-atelectatic change, left greater than right. Coronary artery calcifications are present. ABDOMEN: Liver: Slightly nodular surface of the liver which may reflect cirrhosis but is unchanged. Gallbladder and bile ducts: Normal. No calcified stones. No ductal dilation. Pancreas: Normal. No ductal dilation. Spleen: There are few splenic calcifications. Adrenals: Normal. No mass. Kidneys and ureters: Small bilateral renal cysts, some of which are hyperdense renal cyst Nonobstructing left renal calculi. Mild left hydronephrosis and hydroureter which extends to a left UPJ calculus measures 8 x 5 x 4 mm. There is persistent hydroureter with periureteral edema which extends to a distal left ureteral calculus measuring 2 mm which is located approximately 1 cm above the UVJ. Stomach and bowel: Borderline distention of the stomach with fluid, food and gas. There is colonic diverticulosis without evidence of diverticulitis. Appendix: The appendix moderate stool throughout the proximal colon. PELVIS: Bladder: Unremarkable as visualized. Reproductive: Status post hysterectomy. ABDOMEN and PELVIS: Intraperitoneal space: Normal. No free air. No significant fluid collection. Bones/joints: No acute fracture. No dislocation. Soft tissues: Moderate bilateral atrophy. Vasculature: There is mild calcification of the abdominal aorta. Incidental note of a retroaortic left renal vein. Lymph nodes: Normal. No enlarged lymph nodes. IMPRESSION: 1. There is borderline gastric distention with fluid, food and gas which may reflect recent ingestion. Gastric atony or relative outlet obstruction are not excluded. 2. Moderate bilateral atrophy which is similar to the prior study. 3. Nonobstructing left renal calculi. 4. Left obstructive uropathy with slightly increased left hydronephrosis since 07/12/2018. There is an irregular calculus or collection of calculi at the left UPJ which is slightly increased since the prior study. There is new left hydroureter with periureteral edema which extends to a 2 mm distal left ureteral calculus 1 cm above the UVJ which is new since prior study. Overall, there is slightly increased obstructive uropathy. 5. Colonic diverticulosis without diverticulitis. 6. Status post hysterectomy. COMMENT: Consistent with the [employer]'s Incidental Findings Committee Report (J Am Edouard Radiol 2010): Unless the patient's specific circumstances suggest otherwise, any liver lesion 0.5 cm or less, any cystic kidney lesion less than 1.0 cm, and/or any adrenal lesion 1.0 cm or less not otherwise characterized in this report as possessing suspicious or indeterminate imaging features is/are highly likely to be benign and do not require follow-up imaging or biopsy. Chest Electronically signed by: Richard Lee On 07/22/2018 00:30:08 AM
[2018-07-22 00:38] LABS: BASO # 0.1 10^3/uL (0.0-0.2); BASO % 0.4 % (0.0-1.0); HEMATOCRIT 34.2 % (36.0-47.0); LYMPH # 1.1 10^3/uL (1.5-4.5); LYMPH % 9.4 % (24.0-44.0); MEAN CORPUSCULAR HEMOGLOBIN 32.9 pg (27.0-33.0); MEAN CORPUSCULAR HGB CONC 32.2 g/dl (32.0-36.5); MEAN CORPUSCULAR VOLUME 102.4 fl (80.0-96.0); MONO # 0.9 10^3/uL (0.0-0.8); MONO % 8.1 % (0.0-5.0); NEUTROPHILS # 9.2 10^3/uL (1.8-7.7); NEUTROPHILS % 79.9 % (36.0-66.0); PLATELET COUNT, AUTOMATED 158 10^3/uL (150-450); RED BLOOD COUNT 3.34 10^6/uL (4.00-5.40); WHITE BLOOD COUNT 11.6 10^3/uL (4.0-10.0)
[2018-07-22 00:58] LABS: ALBUMIN 3.4 GM/DL (3.2-5.2); ALT/SGPT 18 U/L (12-78); BILIRUBIN,DIRECT < 0.1 MG/DL (0.0-0.2); BILIRUBIN,TOTAL 0.3 MG/DL (0.2-1.0); BLOOD UREA NITROGEN 66 MG/DL (7-18); CALCIUM LEVEL 9.1 MG/DL (8.8-10.2); CARBON DIOXIDE LEVEL 25 MEQ/L (21-32); CHLORIDE LEVEL 100 MEQ/L (98-107); CREATININE FOR GFR 8.01 MG/DL (0.55-1.30); GLOMERULAR FILTRATION RATE 5.4 (>45); GLUCOSE, FASTING 107 MG/DL (70-100); LIPASE 103 U/L (73-393); POTASSIUM SERUM 5.3 MEQ/L (3.5-5.1); SODIUM LEVEL 136 MEQ/L (136-145); TOTAL PROTEIN 6.9 GM/DL (6.4-8.2)
[2018-07-22] MEDS ORDERED: NS 1,000 ML IV SCH (01:35)
[2018-07-22] MEDS ORDERED: GLUCOSE 4 GM CHEW TABLET PO PRN (02:00)
[2018-07-22] MEDS ORDERED: GLUCAGON FOR INJ 1 MG VIAL (J1610) SC PRN (02:00)
[2018-07-22] MEDS ORDERED: DEXTROSE 50% 50 ML SYRINGE IV PRN (02:00)
--- NOTE | 2018-07-22 02:06 | HPEPDOC ---
[facility] Medical History & Physical Date of Admission Jul 22, 2018 Attending Physician: Cullen Sparrow MD History and Physical CHIEF COMPLAINT: [Left-sided flank pain] HISTORY OF PRESENT ILLNESS: [62-year-old female with Past medical history End- stage renal disease (Thursday, , Thursday), COPD, diabetes, history of atrial flutter was on warfarin, anemia chronic, hypertension, hyperlipidemia, chronic anxiety, PRABHJOT, intolerable to BiPAP, fibrofatty infiltration of the liver, memory loss since her bleeding history in the past came in complaining of left-sided flank pain. Patient was evaluated earlier this month in the emergency room for left-sided flank pain and had CT evaluation and was noted to have nephrolithiasis and was given pain medication as outpatient follow-up with urology. Patient saw urology on 07/16 2018 and was told to continue current management and hydration as patients still urinates even though she is on hemodialysis. Patient denied had severe pain lasting 8-10 hours therefore came to emergency room for further evaluation. Patients currently on Flomax and oxycodone for the kidney stone. Patient states that he had been constipated due to narcotics but slowly started to have regular bowel movements now. Patient had some nausea but no vomiting episode. Patient denies of any fever. Patient complained of some dysuria and she still makes some urine even though she is on hemodialysis. Otherwise denies of any diarrhea. Patient was again reevaluated in the emergency room had a CT abdomen and pelvis which showed worsening obstructing uropathy, worsening hydronephrosis from left-sided nephrolithiasis therefore Dr. Lock the urologist was consulted with plans to take patient to the OR tomorrow. Patient is being admitted for further evaluation and treatment and will be kept nothing by mouth. Review system: 12 point review systems negative other than those described in HPI PAST MEDICAL HISTORY: 1. Type 2 diabetes mellitus with nephropathy. 2. Stage V kidney disease on dialysis. 3. Atrial flutter. 4. History of intraventricular bleed related to Coumadin in May 2008. 5. Hypertension. 6. Hyperlipidemia. 7. Grade 1 chronic diastolic heart failure. 8. COPD. 9. Secondary hyperparathyroidism. 10. Anemia of chronic disease. 11. Anxiety. 12. Obesity. 13. Obstructive sleep apnea who is intolerant of bilevel positive airway pressure (BiPAP). 14. History of thyroid nodule with a negative fine-needle aspiration (FNA). 15. History of memory loss since her intraventricular bleed. 16. Vocal cord dysfunction. 17. Arthritis. 18. Diffuse fibrofatty infiltration of the liver. PAST SURGICAL HISTORY: 1. sections in 1986, 1985. 2. Lumbar discectomy in 1980 and 1990. 3. Breast biopsy on April 2000. 4. Colonoscopy in 2001. 5. Hysterectomy done for heavy bleeding in 2002. 6. Nasal cautery in 2002. 7. Unclear eye procedure in 2002. 8. Ventriculostomy in June 2008. 9. Fistula for dialysis in April 2011. 10. FNA thyroid nodule July 2013. 11. Tooth extraction in January of 2017. FAMILY HISTORY: Mother has a history of a stroke, two siblings have diabetes and her son has cluster headaches and seizures. SOCIAL HISTORY: Patient is previous smoker who quit in 2003. Prior to that she smoked 2 packs per day for 40 years. She denies any alcohol or drug use. She lives alone. ALLERGIES: Please see below. HOME MEDICATIONS: Please see below. PHYSICAL EXAMINATION: VITAL SIGNS: Please see below GENERAL APPEARANCE: Tolerating pain HEENT: Normocephalic, PERRLA, Mucous moist, CARDIOVASCULAR: S1,S2, pulse present, irregularly irregular LUNGS: Equal decreased air entry b/l, no wheezes or crackle ABDOMEN: Soft, BS present, no tenderness, no guarding GENITOURINARY: No Tovar, left-sided flank pain EXTREMITIES: B/L no edema, capillary refill present SKIN: Warm, No fever NEUROLOGICAL: Cranial nerves grossly intact PSYCHIATRIC: Normal mood and affect for current situation EKG heart rate of 88 a. Fib LABORATORY DATA: See below. IMAGING: [CT abdomen and pelvis: 1. There is borderline gastric distention with fluid, food and gas which may reflect recent ingestion. Gastric atony or relative outlet obstruction are not excluded. 2. Moderate bilateral atrophy which is similar to the prior study. 3. Nonobstructing left renal calculi. 4. Left obstructive uropathy with slightly increased left hydronephrosis since 07/12/2018. There is an irregular calculus or collection of calculi at the left UPJ which is slightly increased since the prior study. There is new left hydroureter with periureteral edema which extends to a 2 mm distal left ureteral calculus 1 cm above the UVJ which is new since prior study. Overall, there is slightly increased obstructive uropathy. 5. Colonic diverticulosis without diverticulitis. 6. Status post hysterectomy. ] MICROBIOLOGY: Please see below. Assessment and plan: 62-year-old female with Past medical history End-stage renal disease (Thursday, , Thursday), COPD, diabetes, history of atrial flutter was on warfarin, anemia chronic, hypertension, hyperlipidemia, chronic anxiety, PRABHJOT, intolerable to BiPAP, fibrofatty infiltration of the liver, memory loss since her bleeding history in the past came in complaining of left-sided flank pain. Increase Left obstructive uropathy with slightly increased left hydronephrosis and nephrolithiasis Nothing by mouth Plan for a.m. surgery with Dr. oLck Pain management, bowel moving regimen to be initiated was no longer nothing by mouth UA for further evaluation, if UTI initiate antibiotic ESRD hemodialysis on Thursday, , Thursday. Consult Dr. Guzman HD in a.m. Mild hyperkalemia without peaked T waves Telemetry, likely will improve with insulin Monitor, gentle IV hydration, dialysis with renal in a.m. If no improvement will utilize Kayexalate or if arrhythmia then acutely treatment including stat HD for hyperkalemia Diabetes. Awaiting medication reconciliation Fingerstick monitoring and coverage Half the dose of home regimen with parameter as patient nothing by mouth for surgery tomorrow Atrial fib flutter, resume home regimen once no longer nothing by mouth, convert to IV medication if possible, hold anticoagulant and defer to surgery Hyperlipidemia, resume home med once no longer nothing by mouth Anxiety and depression, resume home medication once no longer nothing by mouth Hypothyroidism, resume home education once no longer nothing by mouth COPD, resume home regimen PRABHJOT, oxygen as needed Various musculoskeletal symptoms, resume home regimen DVT prophylaxis as per surgery Vital Signs Vital Signs Date Time Temp Pulse Resp B/P (MAP) Pulse Ox O2 Delivery O2 Flow Rate FiO2 07/22/18 00:35 15 07/22/18 00:15 95 Room Air 07/21/18 23:00 98.3 85 136/80 Laboratory Data Labs 24H Laboratory Tests 2 07/22/18 00:05: Immature Granulocyte % (Auto) 2.2, White Blood Count 11.6H, Red Blood Count 3.34L, Hemoglobin 11.0L, Hematocrit 34.2L, Mean Corpuscular Volume 102.4H, Mean Corpuscular Hemoglobin 32.9, Mean Corpuscular Hemoglobin Concent 32.2, Red Cell Distribution Width 14.5, Platelet Count 158, Neutrophils (%) (Auto) 79.9H, Lymphocytes (%) (Auto) 9.4L, Monocytes (%) (Auto) 8.1H, Eosinophils (%) (Auto) 0.0, Basophils (%) (Auto) 0.4, Neutrophils # (Auto) 9.2H, Lymphocytes # (Auto) 1.1L, Monocytes # (Auto) 0.9H, Eosinophils # (Auto) 0.0, Basophils # (Auto) 0.1, Nucleated Red Blood Cells % (auto) 0.0, Anion Gap 11, Glomerular Filtration Rate 5.4L, Calcium Level 9.1, Aspartate Amino Transf (AST/SGOT) 15, Alanine Aminotransferase (ALT/SGPT) 18, Alkaline Phosphatase 137H, Total Bilirubin 0.3, Direct Bilirubin < 0.1, Total Protein 6.9, Albumin 3.4, Albumin/Globulin Ratio 0.97L, Lipase 103 CBC/BMP Laboratory Tests 07/22/18 00:05 Red Blood Count 3.34 L, Mean Corpuscular Volume 102.4 H, Mean Corpuscular Hemoglobin 32.9, Mean Corpuscular Hemoglobin Concent 32.2, Red Cell Distribution Width 14.5, Neutrophils (%) (Auto) 79.9 H, Lymphocytes (%) (Auto) 9.4 L, Monocytes (%) (Auto) 8.1 H, Eosinophils (%) (Auto) 0.0, Basophils (%) (Auto) 0.4, Neutrophils # (Auto) 9.2 H, Lymphocytes # (Auto) 1.1 L, Monocytes # (Auto) 0.9 H, Eosinophils # (Auto) 0.0, Basophils # (Auto) 0.1 Microbiology Microbiology 07/21/18 Blood Culture, Received Pending Home Medications Scheduled (Kyra-Mirella) 1 Tab Tab, 1 TAB PO DAILY (Heparin Sodium) 5,000 Unit/Ml Inj, 2,000 UNIT IJ ASDIRECTED RECEIVES AT DIALYSIS TREATMENTS THURSDAY, THURSDAY AND THURSDAY (Stiolto Respimat 2.5-2.5 Mcg/Act) 1 Aer Aer, 2 PUFFS IN DAILY Ammonium Lactate (Ammonium Lactate) 12 % Cre, 1 DOSE TOP BID APPLIES TO FEET Aspirin (Aspirin) 325 Mg Tab, 325 MG PO DAILY Calcitriol (Rocaltrol) 0.25 Mcg Cap, 0.75 MCG PO 3XW RECEIVES AT DIALYSIS THURSDAY,THURSDAY,THURSDAY Cinacalcet Hydrochloride (Sensipar) 30 Mg Tab, 30 MG PO QWEEK FRIDAYS Insulin Glargine (Lantus Solostar) 100 Unit/Ml Inj, 48 UNITS SC QHS Levothyroxine Sodium (Synthroid) 75 Mcg Tab, 75 MCG PO DAILY Metoprolol Tartrate (Metoprolol Tartrate) 50 Mg Tab, 50 MG PO BID Ponce 3 Polyunsat Fatty Acids (Lovaza 1 gm) 1 Cap Cap, 2 CAP PO BID Omeprazole (Omeprazole) 40 Mg Cap, 40 MG PO DAILY Rosuvastatin Calcium (Crestor) 20 Mg Tab, 20 MG PO QHS Senna (Senna) 8.6 Mg Cap, 1 CAP PO DAILY Sevelamer Carbonate (Renvela) 800 Mg Tab, 2,400 MG PO WM Sodium Polystyrene Sulfonate (Sps) 15 Gm/60 Ml Susp, 15 GM PO ASDIRECTED ONLY TAKES IF TOLD TO BY DIALYSIS Tamsulosin Hydrochloride (Flomax) 0.4 Mg Cap, 0.4 MG PO DAILY Trazodone HCl (Trazodone HCl) 100 Mg Tab, 100 MG PO QHS Vitamin D (Drisdol) 50,000 Unit Cap, 50,000 UNIT PO Q2WK SUNDAYS Scheduled PRN (Oxycodone/Acetaminophen 7.5-325 mg) 1 Tab Tab, 1 TAB PO QIDP PRN for pain Cyclobenzaprine HCl (Cyclobenzaprine HCl) 5 Mg Tab, 5 MG PO TID PRN for MUSCLE SPASMS Diazepam (Diazepam) 5 Mg Tab, 5 MG PO BID PRN for ANXIETY Ondansetron (Zofran Odt) 4 Mg Tab, 4 MG PO TID PRN for NAUSEA Oxycodone/Acetaminophen (Oxycodone/Acetaminophen 5-325 mg) 1 Tab Tab, 1 TAB PO Q6H PRN for PAIN Allergies Coded Allergies: Quinolones (Verified Allergy, Severe, TEQUIN, 07/21/18) TONGUE SWOLLEN TATE JULIAN MD Jul 22, 2018 02:06
[2018-07-22] MEDS ORDERED: IPRATROPIUM 0.5MG/ALBUTEROL 2.5MG INH SOL UD 3ML (DUONEB)(J7620) NEB PRN (02:15)
[2018-07-22] MEDS: METOPROLOL 5 MG/5 ML VIAL IV SCH ×4 (03:00→21:44)
[2018-07-22] MEDS ORDERED: OXYC1TAB15 PO (03:15)
[2018-07-22] MEDS ORDERED: FLOM0.4C39 PO (03:15)
[2018-07-22] MEDS ORDERED: METO50TA7 PO (03:15)
[2018-07-22] MEDS ORDERED: OXYC1TAB23 PO (03:15)
[2018-07-22] MEDS ORDERED: [UNRECOGNIZED DRUG - CODE] IJ (03:21)
[2018-07-22] MEDS ORDERED: STIO1AER IN (03:24)
--- NOTE | 2018-07-22 04:54 | ECGEPIP ---
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
[2018-07-22] MEDS: HumaLOG INSULIN (NovoLOG) PER UNIT SC SCH ×4 (05:24→18:00)
[2018-07-22 07:05] LABS: HEMATOCRIT 33.2 % (36.0-47.0); HEMOGLOBIN 10.4 g/dl (12.0-15.5); MEAN CORPUSCULAR HEMOGLOBIN 32.6 pg (27.0-33.0); MEAN CORPUSCULAR HGB CONC 31.3 g/dl (32.0-36.5); MEAN CORPUSCULAR VOLUME 104.1 fl (80.0-96.0); PLATELET COUNT, AUTOMATED 145 10^3/uL (150-450); RED BLOOD COUNT 3.19 10^6/uL (4.00-5.40); WHITE BLOOD COUNT 10.3 10^3/uL (4.0-10.0)
[2018-07-22 07:10] LABS: INR 0.93; PROTHROMBIN TIME 12.6 SECONDS (12.1-14.4)
[2018-07-22 07:19] LABS: CALCIUM LEVEL 8.9 MG/DL (8.8-10.2); CREATININE FOR GFR 8.36 MG/DL (0.55-1.30); GLOMERULAR FILTRATION RATE 5.2 (>45)
[2018-07-22] MEDS: MORPHINE 4 MG/ML 1ML VIAL/SYRINGE (J2270) IV PRN ×3 (07:39→22:34)
[2018-07-22] MEDS: IPRATROPIUM 0.5MG/ALBUTEROL 2.5MG INH SOL UD 3ML (DUONEB)(J7620) NEB SCH ×3 (08:43→20:00)
[2018-07-22] MEDS ORDERED: CALCITRIOL 0.25 MCG CAP (S0169) PO SCH (09:00)
[2018-07-22] MEDS ORDERED: LEVEMIR (INSULIN DETEMIR) 1 UNITS/0.01ML SC ONE (09:00)
--- NOTE | 2018-07-22 09:04 | IPNPDOC ---
Subjective Date Seen The patient was seen on 07/22/18. Subjective Chief Complaint/HPI Patient seen and examined at bedside. Denies fevers, chills, chest pain, any worsening of her chronic SOB. Admits to nausea but no vomiting. Denies constipation, diarrhea. Admits to 10/10 low back pain and 6-7/10 lower abdominal pain this AM. States the abdominal pain just improved after she just received morphine this AM. Reports she had a kidney stones a few weeks ago and was given medication to help break the stone up. However, she had to come to the ED since her L flank pain was worsening. General: Denies: Normal Appetite Constitutional: Denies: Chills, Fever ENT: Denies: Head Aches Skin: Denies: Rash Pulmonary: Reports: Dyspnea (baseline) Cardiovascular: Denies: Chest Pain Gastrointestinal: Reports: Nausea, Abdominal Pain (lower abdomen); Denies: Vomiting, Diarrhea, Constipation Genitourinary: Reports: Dysuria, Hematuria; Denies: Frequency Hematologic: Denies: Bruising Endocrine: Denies: Polydipsia, Polyphagia, Polyuria, Heat Intolerance, Cold Intolerance Musculoskeletal: Reports: Back Pain (lower bilateral) Neurological: Denies: Weakness, Numbness, Confusion Psych: Reports: Mood Normal Objective Physical Examination General Exam: Positive: Alert, Cooperative, No Acute Distress Eye Exam: Positive: Conjunctiva & lids normal; Negative: Sclera icteric ENT Exam: Positive: Atraumatic Neck Exam: Positive: Supple; Negative: JVD Chest Exam: Positive: Clear to auscultation, Normal air movement; Negative: Rales, Rhonchi, Wheezing Heart Exam: Positive: Rate Normal, Irregular Rhythm, Normal S1, Normal S2; Negative: Murmurs Abdomen Exam: Positive: Normal bowel sounds, Soft, Tenderness (generalized and moderate); Negative: Hepatospenomegaly Extremity Exam: Negative: Clubbing, Cyanosis, Edema Skin Exam: Positive: Nl turgor and temperature; Negative: Rash Neuro Exam: Positive: Normal Speech Psych Exam: Positive: Mental status NL, Mood NL, Memory Intact, Oriented x 3 Assessment /Plan Problems (1) Pre-op evaluation Status: Acute Problem Text: 07/22: Have ordered CXR due to hx of diastolic CHF prior to surgery for surgical optimization. Assuming CXR is normal and/or negative for fluid overload, patient is medically optimized for intermediate risk surgery. (2) Hydronephrosis concurrent with and due to calculi of kidney and ureter Status: Acute Problem Text: 07/22: Urology consulted. Patient is NPO, is going for surgery and retrograde pyelogram with Dr. Lock of Urology this AM. WBC has gone down slightly to 10.3. Pain is being controlled with morphine 2 mg q2h PRN IV severe pain. Patient receiving NS IVF at 50 mLs/hr. Will restart bowel regimen after patient is not NPO after surgery. UA was negative. (3) Obstructive uropathy Status: Acute Problem Text: 07/22: Secondary to above. (4) Nephrolithiasis Status: Acute Problem Text: 07/22: Undergoing surgery and retrograde pyelogram with Dr. Lock this AM. Pain control with morphine. Continue gentle IVF due to hx of ESRD and CKD Stage V on chronic HD. (5) End stage renal disease Status: Chronic Response to Treatment: Stable Problem Text: 07/22: Patient has HD schedule for Thursday, , and . Is due for hemodialysis today. Nephrology has been consulted for management of this. (6) Stage 5 chronic kidney disease on chronic dialysis Status: Chronic Response to Treatment: Stable Problem Text: 07/22: Nephrology consulted. Due for HD today. (7) Diabetes mellitus type 2 in obese Status: Chronic Problem Text: 07/22: NPO for now until surgery. Will restart 1/2 dose of home regimen of basal insulin: lantus 48 units QHS. Sliding scale coverage as needed. Monitor daily BMPs and fingersticks. (8) Hypertension Status: Chronic Response to Treatment: Stable Problem Text: 07/22: BP well controlled and was 133/72 this AM. On metoprolol 5 mg q6h IV. (9) Chronic diastolic (congestive) heart failure Status: Chronic Response to Treatment: Stable Problem Text: 07/22: No signs of fluid overload on physical exam. Will obtain CXR this AM to rule out any heart failure signs prior to patient's surgery. (10) COPD (chronic obstructive pulmonary disease) Status: Chronic Response to Treatment: Stable Problem Text: 07/22: Is on duonebs RQ6H and q2hP. Maintain O2 saturation between 88-92% via supplemental oxygen therapy to avoid oxygen toxicity. (11) Anemia of chronic disease Status: Chronic Problem Text: 07/22: Stable. Likely secondary to hx of CKD. Hgb was 10.4 (L) and Hct was 33.2 (L) this AM. Previously, Hgb was 11 and Hct was 34.2. Continue to monitor CBC. (12) Obstructive sleep apnea Status: Chronic Problem Text: 07/22: Not compliant with CPAP. Will order continuous pulse oximetry. Is on 2L O2 via NC for now. (13) Atrial fibrillation and flutter Status: Chronic Problem Text: 07/22: On metoprolol 5 mg q6h IV. Will monitor on telemetry. Hold anticoagulation for now due to surgery this AM. (14) Fatty infiltration of liver Status: Chronic (15) Memory loss Status: Chronic Problem Text: 07/22: Apparently, this is secondary to hx of previous intraventricular bleed. Although, patient was awake, alert, and oriented x 3 on my examination today. Plan/VTE VTE Prophylaxis Ordered?: No (undergoing surgery with Dr. Lock this AM) VS, I&O, 24H, Fishbone Vital Signs/I&O Vital Signs Date Time Temp Pulse Resp B/P (MAP) Pulse Ox O2 Delivery O2 Flow Rate FiO2 07/22/18 07:41 96 Nasal Cannula 2.0 07/22/18 07:39 18 07/22/18 07:30 99 119/83 (95) 07/21/18 23:00 98.3 Laboratory Data 24H LABS Laboratory Tests 2 07/22/18 00:05: Immature Granulocyte % (Auto) 2.2, White Blood Count 11.6H, Red Blood Count 3.34L, Hemoglobin 11.0L, Hematocrit 34.2L, Mean Corpuscular Volume 102.4H, Mean Corpuscular Hemoglobin 32.9, Mean Corpuscular Hemoglobin Concent 32.2, Red Cell Distribution Width 14.5, Platelet Count 158, Neutrophils (%) (Auto) 79.9H, Lymphocytes (%) (Auto) 9.4L, Monocytes (%) (Auto) 8.1H, Eosinophils (%) (Auto) 0.0, Basophils (%) (Auto) 0.4, Neutrophils # (Auto) 9.2H, Lymphocytes # (Auto) 1.1L, Monocytes # (Auto) 0.9H, Eosinophils # (Auto) 0.0, Basophils # (Auto) 0.1, Nucleated Red Blood Cells % (auto) 0.0, Anion Gap 11, Glomerular Filtration Rate 5.4L, Calcium Level 9.1, Aspartate Amino Transf (AST/SGOT) 15, Alanine Aminotransferase (ALT/SGPT) 18, Alkaline Phosphatase 137H, Total Bilirubin 0.3, Direct Bilirubin < 0.1, Total Protein 6.9, Albumin 3.4, Albumin/Globulin Ratio 0.97L, Lipase 103 07/22/18 05:20: Bedside Glucose (Misc Panel) 109 07/22/18 06:16: Nucleated Red Blood Cells % (auto) 0.0, Anion Gap 10, Glomerular Filtration Rate 5.2L, Calcium Level 8.9, Prothrombin Time 12.6, Prothromb Time International Ratio 0.93, Blood Urea Nitrogen 62H, Creatinine 8.36*H, Sodium Level 136, Potassium Level 5.0, Chloride Level 99, Carbon Dioxide Level 27 CBC/BMP Laboratory Tests 07/22/18 00:05 Red Blood Count 3.34 L, Mean Corpuscular Volume 102.4 H, Mean Corpuscular Hemoglobin 32.9, Mean Corpuscular Hemoglobin Concent 32.2, Red Cell Distribution Width 14.5, Neutrophils (%) (Auto) 79.9 H, Lymphocytes (%) (Auto) 9.4 L, Monocytes (%) (Auto) 8.1 H, Eosinophils (%) (Auto) 0.0, Basophils (%) (Auto) 0.4, Neutrophils # (Auto) 9.2 H, Lymphocytes # (Auto) 1.1 L, Monocytes # (Auto) 0.9 H, Eosinophils # (Auto) 0.0, Basophils # (Auto) 0.1 07/22/18 06:16 Red Blood Count 3.19 L, Mean Corpuscular Volume 104.1 H, Mean Corpuscular Hemoglobin 32.6, Mean Corpuscular Hemoglobin Concent 31.3 L, Red Cell Distribution Width 14.6 H, Calcium Level 8.9 Microbiology Microbiology 07/21/18 Blood Culture, Received Pending GME ATTESTATION GME ATTESTATION My faculty preceptor for this patient encounter was Dr. Cullen Sparrow, and was physically present during the encounter and was fully available. All aspects of the patient interview, examination, medical decision making process, and medical care plan development were reviewed and approved by the faculty preceptor. The faculty preceptor is aware and concurs with the plan as stated in the body of this note and will attest to such by his/her cosignature. EDWIN FERNANDES DO Jul 22, 2018 08:34
[2018-07-22] MEDS ORDERED: LEVOTHYROXINE 100 MCG (0.1MG) VIAL IV SCH (09:30)
[2018-07-22] MEDS ORDERED: DARBEPOETIN 100 MCG/0.5 ML *DIALYSIS* SYRINGE (J0882) IV SCH (09:30)
--- NOTE | 2018-07-22 09:40 | REP ---
PORTABLE CHEST: AP portable view of the chest is performed and compared with prior study of 07/12/2018. There is mild cardiomegaly. There are stable chronic fibrotic changes without definite acute infiltrate. The mediastinal silhouette is unchanged. There are degenerative changes of the spine. IMPRESSION: Mild cardiomegaly. No new infiltrate. Electronically Signed by Scout King MD 07/22/2018 11:46 A
[2018-07-22] MEDS: PANTOPRAZOLE 40MG INJ (PROTONIX) (C9113) IV SCH (09:48)
[2018-07-22 10:04] LABS: THYROID STIMULATING HORMONE 1.01 uIU/ML (0.358-3.740)
[2018-07-22] MEDS ORDERED: ONDANSETRON 4MG/2ML VIAL (J2405) IV PRN ×2 (10:45→18:45)
--- NOTE | 2018-07-22 11:26 | ECGEPIP ---
Stationary ECG Study [facility] Test Date: 2018-07-22 Pat Name: JOSE ROGERS Department: Room: 07-27 Gender: F Needle Straightener: OTF : 1955 Requested By: Cullen Sparrow Order Number: [id number] Reading MD: Trixie Montanez Measurements Intervals [place] Rate: 99 P: AL: 0 QRS: 42 QRSD: 96 T: 9 QT: 357 QTc: 459 Interpretive Statements ATRIAL FIBRILLATION WITH ABERRANT CONDUCTION OR VENTRICULAR PREMATURE COMPLEXES OR ARTIFACT MODERATE ST DEPRESSION WHICH IS DIFFICULT TO YVES WITH POOR INITIAL BASELINE SUSPECT NOT CHANGED FROM 07/21/18 Electronically Signed On 07-22-2018 11:26:10 EST by Trixie Montanez
[2018-07-22] MEDS ORDERED: D5W/0.9% SODIUM CHLORIDE 1,000 ML IV SCH (12:00)
--- NOTE | 2018-07-22 13:57 | CR ---
DATE OF CONSULTATION: 07/22/2018 REQUESTING PHYSICIAN: Dr. Kenzie Rai CONSULTING PHYSICIAN: Dr. Gzuman REASON FOR CONSULTATION: Management of end stage renal disease (ESRD) on hemodialysis. CHIEF COMPLAINT: Patient presented to the emergency room last night with progressively worsening abdominal pain and back pain for the last two weeks. HISTORY OF PRESENT ILLNESS: Caro Carnes is a 62-year-old female with past medical history of end stage renal disease on hemodialysis every Thursday, , and Thursday, morbidly obese, history of diabetes mellitus type 2, and multiple other comorbidities as mentioned below. She presented to the emergency room last night because of progressively worsening left sided flank pain and abdominal pain that has been going on for about two weeks. She was seen about a week ago in the emergency room and she was told that she had kidney stones and she was asked to follow-up with urology as an outpatient. She saw urology and she was given some medication. However, with the pain medications she did not feel any relief and she actually got constipated with the pain medications, and her symptoms were not improving. She was nauseated. She had decreased appetite and persistent almost 8/10 left sided flank pain. She arrived in the emergency room, she got a CT scan done in the ER, which showed left sided stone at the left sided ureteropelvic junction (UPJ) along with left sided hydronephrosis. The patient was admitted under the hospitalist service. She is nothing by mouth at this point for possible left sided ureteroscopy by urology today. Nephrology service was called for further help in the management of this patient's end stage renal disease and arrangement of hemodialysis. I saw and evaluated the patient today morning. She reports that she is still having a moderate amount of pain. She was getting pain medications. She was on gentle IV fluid hydration at this point because she is nothing by mouth. She denies any fevers or chills. She is otherwise afebrile and hemodynamically stable. PAST MEDICAL HISTORY: End stage renal disease on hemodialysis every Thursday, , and Thursday. Diabetes mellitus type 2. History of atrial flutter. Hypertension with end stage renal disease. Hyperlipidemia. Chronic diastolic congestive heart failure (CHF). Chronic obstructive pulmonary disease (COPD). Secondary hyperparathyroidism of renal origin. Anemia of end stage renal disease. Anxiety. Morbid obesity. Obstructive sleep apnea, does not use BiPAP at home. History of intraventricular bleed in the past. Vocal cord dysfunction. Arthritis. History of fatty liver. PAST SURGICAL HISTORY: History of lumbar spine surgery in the and 1990. section times two. Breast biopsy in 1999. Colonoscopy in 2001. Hysterectomy for heavy bleeding in 2002. Ventriculostomy in June 2008. History of AV fistula placement in the left forearm in 2010. History of fine needle aspiration cytology (FNAC) of thyroid nodule in 2013. ALLERGIES: Patient is allergic to QUINOLONES. FAMILY HISTORY: No significant family history of end stage renal disease requiring hemodialysis. Positive history of diabetes in siblings. SOCIAL HISTORY: Patient denies any illicit drug abuse or alcohol abuse. She is a former smoker. She quit smoking in 2003. She lives alone. REVIEW OF SYSTEMS: CONSTITUTIONAL: Patient reports feeling weak and tired. EYES: She denies any blurry vision or double vision. ENT: She denies any dysphagia or odynophagia. CARDIOVASCULAR: She denies any chest pain or palpitations. RESPIRATORY: She denies any shortness of breath. GASTROINTESTINAL (GI): She reports nausea and decreased appetite and abdominal pain. GENITOURINARY (): She reports left sided flank pain, but she denies any hematuria. She reports a recent diagnosis of kidney stones. MUSCULOSKELETAL: She denies any muscle aches and pains. 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 Denies any weakness. PSYCH: She denies any depression or anxiety. ENDOCRINE: She reports a history of secondary hyperparathyroidism and diabetes mellitus type 2. HEMATOLOGY/ONCOLOGY: She denies any easy bleeding or bruising. SKIN: She denies any rashes or ulcers. All other review of systems is negative. PHYSICAL EXAMINATION: GENERAL: Patient is awake, alert and oriented times three, morbidly obese, laying in bed, in mild painful distress. CURRENT VITAL SIGNS: Temperature is 98.1 degrees Fahrenheit, blood pressure is 128/67, pulse is 98, respiratory rate of 20, saturating 97% on room air. HEAD/NECK EXAM: Extraocular muscles intact. Pupils equally round and reactive to light. Mucous membranes are moist. Neck is supple. There is no jugular venous distention (JVD). CARDIOVASCULAR: S1 and S2, regular rate. No edema of the bilateral lower extremities. RESPIRATORY: Chest is clear to auscultation bilaterally. Bilateral equal air entry. No rales or rhonchi. ABDOMEN: Soft. Positive bowel sounds. Mildly tender in the left flank and moderate amount of tenderness in the right upper quadrant as well. Liver is palpable. GENITOURINARY (): Bladder is not palpable. No hernia were noted. MUSCULOSKELETAL: No clubbing or cyanosis. Pulses are 2+. 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 Power is 5/5 in bilateral upper extremities. PSYCH: Normal mood and affect. AV ACCESS: Patient has a left forearm AV fistulation with thrill and bruit. LAB REVIEW: CBC showed a WBC of 11.6 on arrival and 10.3 at this point. Hemoglobin is 10.4, platelets are 145, INR is 0.93. BMP today morning showed sodium 136 potassium 5, chloride 99, bicarb 27, BUN 62, creatinine is 8.3, calcium 8.9, magnesium is 3, TSH is 1.01. Microbiology: Blood cultures are pending. IMAGING: CT scan of the abdomen and pelvis was done without contrast yesterday. It showed gastric distention, which is borderline, nonobstructing left renal calculi. Left obstructive uropathy with a slight increase in the left hydronephrosis. There was a calculus in the left UP junction and there was left hydroureter as well. HOME MEDICATIONS: Patient is one: - aspirin 325 mg by mouth daily - calcitriol 0.75 mcg by mouth three times a week, Thursday, , and Thursday - Sensipar 30 mg by mouth once a week - Flexeril as needed - diazepam 5 mg twice a day as needed for anxiety - insulin Lantus 48 units subcu at bedtime - levothyroxine 75 mcg daily - metoprolol 50 mg by mouth twice a day - omeprazole 40 mg daily - Zofran as needed - oxycodone as needed for pain - Crestor 20 mg at bedtime - senna one capsule daily - Renvela 2.4 grams by mouth with meals - Flomax 0.4 mg by mouth daily - trazodone 100 mg at bedtime - vitamin D 50,000 units by mouth every two weeks CURRENT INPATIENT MEDICATIONS: The patient's medications were all reviewed by me. She is on: - D5 normal saline at 50 mL/hour - DuoNeb as needed - Sensipar 30 mg by mouth on - She has been started on Aranesp 100 mcg IV with hemodialysis. - Insulin Levemir 20 units subcu one dose - insulin sliding scale - She has been restarted on levothyroxine 75 mcg by mouth daily. - metoprolol 5 mg IV every 6 hours - morphine as needed - Zofran as needed - Protonix 40 mg IV daily ASSESSMENT: 62-year-old female with past medical history of morbid obesity, end stage renal disease (ESRD) on hemodialysis every Thursday, , and Thursday, COPD, diabetes mellitus type 2, admitted this time because of left sided flank pain and left sided hydronephrosis. PLAN: 1. End stage renal disease (ESRD) on hemodialysis. The patient's regular dialysis days are Thursday, , and Thursday. The patient will be dialyzed today in the afternoon. Since she is nothing by mouth, I would do minimal ultrafiltration. 2. Hyperkalemia. The patient's potassium improved to 5 today. She will be dialyzed with a 2K bath. Potassium level is expected to further improve. 3. Anemia of end stage renal disease. Hemoglobin is 10.4. Patient will be given a dose of Aranesp with hemodialysis today. 4. Left sided hydronephrosis. Patient is nothing by mouth at this point. She will go for a possible cystoscopy today. 5. Secondary hyperparathyroidism of renal origin. Continue current dose of Sensipar 30 mg once a week and continue current dose of calcitriol 0.75 mcg three times a week. 6. Hypothyroidism. Patient has been restarted on home dose of levothyroxine 75 mcg by mouth daily. 7. Chronic kidney disease, mineral bone disease. Once the patient starts eating she will be started on home dose of Renvela 2.4 grams by mouth with meals. 8. Diabetes mellitus type 2. Patient takes Lantus at home. She is being Levemir at this point. Continue the Levemir and insulin sliding scale while the patient is inpatient. 9. History of atrial flutter. Continue current dose of metoprolol 50 mg by mouth every 8 hours when she starts the oral medications. She is current on IV metoprolol every 6 hours. Thank you for involving me in the care of this patient. I shall be happy to follow the patient along with you tomorrow morning.
[2018-07-22] MEDS ORDERED: PROPOFOL 200 MG/20 ML VIAL As Ordered ONE ×2 (14:34→18:03)
[2018-07-22] MEDS ORDERED: LIDOCAINE 2% INJ 100 MG/5 ML SDV (FOR ANES.) As Ordered ONE (14:34)
[2018-07-22] MEDS ORDERED: ONDANSETRON 4MG/2ML VIAL (J2405) As Ordered ONE (14:34)
[2018-07-22] MEDS ORDERED: MIDAZOLAM INJ 2 MG/2 ML VIAL (J2250) As Ordered ONE (14:34)
[2018-07-22] MEDS ORDERED: fentaNYL 100 MCG/2 ML INJECTION (J3010) As Ordered ONE ×2 (14:34→19:04)
[2018-07-22] MEDS ORDERED: dexameTHASONE 4 MG/ML 1ML VIAL (J1100) As Ordered ONE (14:34)
[2018-07-22] MEDS ORDERED: ROCURONIUM BROMIDE 50 MG/5 ML VIAL As Ordered ONE (14:34)
[2018-07-22] MEDS ORDERED: GLYCOPYRROLATE INJ 0.2 MG/ML 2 ML VIAL As Ordered ONE (14:34)
[2018-07-22] MEDS ORDERED: NEOSTIGMINE 10 MG/10 ML VIAL (J2710) As Ordered ONE (14:34)
[2018-07-22] MEDS ORDERED: PHENYLEPHRINE INJ 10MG/ML VIAL (J2370) As Ordered ONE (16:28)
[2018-07-22] MEDS ORDERED: CONRAY-60 60% 50ML VIAL (Q9961) As Ordered ONE (16:28)
--- NOTE | 2018-07-22 16:48 | SMCUROLCON ---
Urology Consultation General Date of Consultation 07/22/18 Reason For Consultation This patient is seen for Hydronephrosis With Obstructing Calculus. History of Present Illness This is a 62 y/o F w/ ESRD on HD (//Thu), DM2, COPD HTN, and atrial flutter, who presented to the ER yesterday evening w/ severe left flank pain. She was diagnosed w/ an obstructing 4mm proximal left ureteral stone on CT scan 07/12/18. Her pain was controlled until yesterday. She also notes nausea but no vomiting. She denies fevers or chills. She notes that she makes a small amount of urine daily and she denies dysuria. A repeat CT scan was done in the ER yesterday and was notable for the worsened hydronephrosis on the left and the proximal left ureteral stone in the same place. It was also notable for a 2mm distal left ureteral stone. The patient just returned from HD. She notes that she is still having moderate left flank and lower abd pain. She has never been treated for kidney stones before. Past Medical History Medical History see HPI Surgical Hstory C sections, lumbar discectomy, hysterectomy, HD fistula placement Medications Current Medications Current Medications Albuterol/ Ipratropium (Duoneb (Ipr 0.5mg/Alb 2.5mg)) 3 ml Q2HP PRN NEB SOB/WHEEZING; Start 07/22/18 at 02:15 Albuterol/ Ipratropium (Duoneb (Ipr 0.5mg/Alb 2.5mg)) 3 ml RQ6H NEB Last administered on 07/22/18at 08:43; Start 07/22/18 at 08:00 Calcitriol (Rocaltrol) 0.75 mcg TuThSa@0900 PO ; Start 07/22/18 at 09:00 Cinacalcet (Sensipar) 30 mg Fr@0900 PO ; Start 07/23/18 at 09:00 Darbepoetin Justin (Aranesp (Dialysis Use)) 100 mcg HD IV ; Start 07/22/18 at 09:30 Dextrose (Dextrose 50%) 25 ml ASDIRECTED PRN IV SEE LABEL COMMENTS; Start 07/22/18 at 02:00 Dextrose/Sodium Chloride 1,000 ml @ 50 mls/hr Q20H IV Last administered on 07/22/18at 12:00; Start 07/22/18 at 12:00 Glucagon (Glucagon) 1 mg ASDIRECTED PRN SC SEE LABEL COMMENTS; Start 07/22/18 at 02:00 Glucose (Glucose) 16 GM ASDIRECTED PRN PO SEE LABEL COMMENTS; Start 07/22/18 at 02:00 Home Med (Med Rec Complete!) ASDIRECTED XX ; Start 07/22/18 at 03:30; Stop 07/22/18 at 03:30; Status DC Insulin Human Lispro (HumaLOG INSULIN) See Protocol Table Q6H SC ; Start 07/22/18 at 00:00 Levothyroxine Sodium (Synthroid) 37.5 mcg DAILY IV Last administered on 07/22/18at 10:54; Start 07/22/18 at 09:30; Stop 07/22/18 at 12:12; Status DC Levothyroxine Sodium (Synthroid) 75 mcg DAILY@0600 PO ; Start 07/23/18 at 06:00 Metoprolol Tartrate (Lopressor) 5 mg Q6H IV Last administered on 07/22/18at 09:49; Start 07/22/18 at 03:00 Morphine Sulfate (Morphine Sulfate Inj) 2 mg Q2HP PRN IV SEVERE PAIN (PS 8-10) Last administered on 07/22/18at 11:37; Start 07/22/18 at 01:45 Morphine Sulfate (Morphine Sulfate Inj) 2 mg Q30M PRN IV MODERATE PAIN (PS 5-7) Last administered on 07/22/18at 03:08; Start 07/21/18 at 23:15; Stop 07/22/18 at 03:08; Status DC Ondansetron HCl (ZOFRAN INJection) 4 mg Q6HP PRN IV NAUSEA OR VOMITING Last administered on 07/22/18at 10:54; Start 07/22/18 at 10:45 Pantoprazole Sodium (Protonix) 40 mg Q24H IV Last administered on 07/22/18at 09:48; Start 07/22/18 at 09:00 Sodium Chloride 1,000 ml @ 50 mls/hr Q20H IV Last administered on 07/22/18at 05:23; Start 07/22/18 at 01:35; Stop 07/22/18 at 11:50; Status DC Allergies Allergies: Coded Allergies: Quinolones (Verified Allergy, Severe, TEQUIN, 07/21/18) TONGUE SWOLLEN Review of Systems General: Reports: Normal Appetite; Denies: Fatigue, Malaise Constitutional: Denies: Fever, Chills, Sweats, Weakness, Malaise Pulmonary: Denies: Dyspnea, Cough Cardiovascular: Denies Chest Pain, Denies Palpitations Gastrointestinal: Reports: Nausea, Abdominal Pain, Other Symptoms; Denies: Vomiting Genitourinary: Denies: Dysuria, Frequency Musculoskeletal: Reports: Back Pain (left flank pain) Neurological: Denies: Weakness, Numbness Psych: Reports: Mood Normal Physical Examination General Exam: Alert, Cooperative Chest Exam: Clear to auscultation Heart Exam: Rate Normal Abdomen Exam: Soft, Tenderness (LLQ) Skin Exam: Nl turgor and temperature Neuro Exam: Normal Speech Psych Exam: Mental status NL Vital Signs/I&O Vital Signs Date Time Temp Pulse Resp B/P (MAP) Pulse Ox O2 Delivery O2 Flow Rate FiO2 07/22/18 15:44 112 20 137/94 (108) 07/22/18 09:47 98.1 97 Room Air 07/22/18 07:41 2.0 Laboratory Data 24H Labs Laboratory Tests 2 07/22/18 00:05: Immature Granulocyte % (Auto) 2.2, White Blood Count 11.6H, Red Blood Count 3.34L, Hemoglobin 11.0L, Hematocrit 34.2L, Mean Corpuscular Volume 102.4H, Mean Corpuscular Hemoglobin 32.9, Mean Corpuscular Hemoglobin Concent 32.2, Red Cell Distribution Width 14.5, Platelet Count 158, Neutrophils (%) (Auto) 79.9H, Lymphocytes (%) (Auto) 9.4L, Monocytes (%) (Auto) 8.1H, Eosinophils (%) (Auto) 0.0, Basophils (%) (Auto) 0.4, Neutrophils # (Auto) 9.2H, Lymphocytes # (Auto) 1.1L, Monocytes # (Auto) 0.9H, Eosinophils # (Auto) 0.0, Basophils # (Auto) 0.1, Nucleated Red Blood Cells % (auto) 0.0, Anion Gap 11, Glomerular Filtration Rate 5.4L, Calcium Level 9.1, Aspartate Amino Transf (AST/SGOT) 15, Alanine Aminotransferase (ALT/SGPT) 18, Alkaline Phosphatase 137H, Total Bilirubin 0.3, Direct Bilirubin < 0.1, Total Protein 6.9, Albumin 3.4, Albumin/Globulin Ratio 0.97L, Lipase 103 07/22/18 05:20: Bedside Glucose (Misc Panel) 109 07/22/18 06:16: Nucleated Red Blood Cells % (auto) 0.0, Anion Gap 10, Glomerular Filtration Rate 5.2L, Calcium Level 8.9, Prothrombin Time 12.6, Prothromb Time International Ratio 0.93, Blood Urea Nitrogen 62H, Creatinine 8.36*H, Sodium Level 136, Potassium Level 5.0, Chloride Level 99, Carbon Dioxide Level 27, Magnesium Level 3.0H, Thyroid Stimulating Hormone (TSH) 1.010 07/22/18 11:40: Bedside Glucose (Misc Panel) 73L CBC/BMP Laboratory Tests 07/22/18 00:05 Red Blood Count 3.34 L, Mean Corpuscular Volume 102.4 H, Mean Corpuscular Hemoglobin 32.9, Mean Corpuscular Hemoglobin Concent 32.2, Red Cell Distribution Width 14.5, Neutrophils (%) (Auto) 79.9 H, Lymphocytes (%) (Auto) 9.4 L, Monocytes (%) (Auto) 8.1 H, Eosinophils (%) (Auto) 0.0, Basophils (%) (Auto) 0.4, Neutrophils # (Auto) 9.2 H, Lymphocytes # (Auto) 1.1 L, Monocytes # (Auto) 0.9 H, Eosinophils # (Auto) 0.0, Basophils # (Auto) 0.1 07/22/18 06:16 Red Blood Count 3.19 L, Mean Corpuscular Volume 104.1 H, Mean Corpuscular Hemoglobin 32.6, Mean Corpuscular Hemoglobin Concent 31.3 L, Red Cell Distribution Width 14.6 H, Calcium Level 8.9 Microbiology Microbiology 07/21/18 Blood Culture, Received Pending Assessment This is a 62 y/o F w/ obstructing proximal and distal left ureteral stones. I recommended that we take her to the OR today for cystoscopy, left ureteroscopy w/ laser lithotripsy, and left ureteral stent placement. After a discussion of the risks and benefits of the procedure, informed consent was signed. Urine culture from 07/16/18 was negative. Plan - OR today for cystoscopy, left ureteroscopy w/ laser lithotripsy, and left ureteral stent placement - NPO - 2g [facility] JUAN BAUMANN MD Jul 22, 2018 16:48
[2018-07-22] MEDS ORDERED: ceFAZolin 2 GM/D5W 50 ML IV BAG (J0690 PER 500MG) As Ordered ONE (16:50)
[2018-07-22] MEDS ORDERED: ceFAZolin SOD 2 GM in D5W MINI-BAG PLUS 50 ML IV ONE (17:00)
[2018-07-22] MEDS ORDERED: BUPIVACAINE/DEXTROSE 0.75% 2 ML AMP As Ordered ONE (17:37)
[2018-07-22] MEDS ORDERED: fentaNYL 100 MCG/2 ML INJECTION (J3010) IV PRN (18:45)
[2018-07-22] MEDS ORDERED: ACETAMINOPHEN TAB 650MG DOSE (2X325MG) As Ordered ONE (18:49)
[2018-07-22] MEDS ORDERED: ACETAMINOPHEN TAB 650MG DOSE (2X325MG) PO PRN (19:00)
[2018-07-22] MEDS ORDERED: PERCOCET 5MG/325MG TAB As Ordered ONE (19:04)
--- NOTE | 2018-07-22 19:14 | REP ---
Retrograde pyelogram: Two views. History: Stent placement. 0.08 minutes of fluoroscopy time is reported. Findings: A sequence of two last image hold fluoroscopic spot radiographs of the abdomen document ureteral cannulation, contrast injection, and double pigtail stent placement. No laterality markers are visible. Electronically Signed by Florin Mauricio MD 07/22/2018 07:23 P
[2018-07-22] MEDS ORDERED: PERCOCET 5MG/325MG TAB PO PRN (19:15)
[2018-07-22 20:00] VITALS: BP 140/80; O2SAT 98
[2018-07-22 21:00] VITALS: BP 113/57; O2SAT 98
[2018-07-22 22:00] VITALS: BP 110/58; O2SAT 98
[2018-07-22 23:00] VITALS: O2SAT 98
[2018-07-22 23:05] VITALS: BP 112/60
[2018-07-22 23:59] VITALS: BP 129/72
[2018-07-23] VITALS (16 sets, daily range): BP systolic 108–160; BP diastolic 54–79; O2SAT 90–100
[2018-07-23] MEDS: HumaLOG INSULIN (NovoLOG) PER UNIT SC SCH ×3 (00:28→11:53)
[2018-07-23 00:36] LABS: APPEARANCE, URINE MANUAL CLOUDY (CLEAR); COLOR, URINE MANUAL RED (YELLOW)
[2018-07-23 00:37] LABS: GLUCOSE, URINE (UA) MANUAL NEGATIVE (NEGATIVE); PROTEIN, URINE MANUAL 3+ mg/dL (NEGATIVE); SPECIFIC GRAVITY,URINE MANUAL 1.014 (1.002-1.035)
[2018-07-23 00:38] LABS: BILIRUBIN, URINE MANUAL OBSCURED (NEGATIVE); BLOOD URINE MANUAL POSITIVE (NEGATIVE); KETONE, URINE MANUAL OBSCURED mg/dL (NEGATIVE); LEUKOCYTE ESTERASE, URINE MAN OBSCURED (NEGATIVE); NITRITE, URINE MANUAL OBSCURED (NEGATIVE); UROBILINOGEN, URINE MANUAL OBSCURED mg/dl (NORMAL)
[2018-07-23 00:39] LABS: RBC, URINE TNTC /hpf (0-3)
[2018-07-23 00:40] LABS: SQUAMOUS EPITHELIAL CELL URINE SMALL AMOUNT /hpf (SMALL AMT); WBC, URINE 0-1 /hpf (0-3)
[2018-07-23 00:41] LABS: BACTERIA, URINE NONE SEEN; HYALINE CAST, URINE NONE SEEN /lpf (0-1)
[2018-07-23] MEDS ORDERED: GLUCOSE 4 GM CHEW TABLET PO PRN (01:30)
[2018-07-23] MEDS ORDERED: GLUCAGON FOR INJ 1 MG VIAL (J1610) SC PRN (01:30)
[2018-07-23] MEDS ORDERED: DEXTROSE 50% 50 ML SYRINGE IV PRN (01:30)
[2018-07-23] MEDS: IPRATROPIUM 0.5MG/ALBUTEROL 2.5MG INH SOL UD 3ML (DUONEB)(J7620) NEB SCH ×3 (02:00→14:12)
[2018-07-23] MEDS: METOPROLOL 5 MG/5 ML VIAL IV SCH ×2 (03:12→08:40)
[2018-07-23] MEDS: MORPHINE 4 MG/ML 1ML VIAL/SYRINGE (J2270) IV PRN ×2 (03:13→08:03)
[2018-07-23 05:41] LABS: HEMOGLOBIN 9.9 g/dl (12.0-15.5); MEAN CORPUSCULAR HEMOGLOBIN 32.5 pg (27.0-33.0); MEAN CORPUSCULAR HGB CONC 30.9 g/dl (32.0-36.5); MEAN CORPUSCULAR VOLUME 104.9 fl (80.0-96.0); PLATELET COUNT, AUTOMATED 110 10^3/uL (150-450); RED BLOOD COUNT 3.05 10^6/uL (4.00-5.40); WHITE BLOOD COUNT 9.4 10^3/uL (4.0-10.0)
[2018-07-23] MEDS: HEPARIN SOD (PORCINE) 5000 UNITS/ML VIAL SQ SCH ×2 (05:44→14:00)
[2018-07-23 06:00] LABS: CALCIUM LEVEL 8.3 MG/DL (8.8-10.2); CREATININE FOR GFR 6.45 MG/DL (0.55-1.30); POTASSIUM SERUM 5.4 MEQ/L (3.5-5.1)
[2018-07-23] MEDS ORDERED: LEVOTHYROXINE 75MCG TABLET (0.075MG) PO SCH (06:00)
[2018-07-23] MEDS: PANTOPRAZOLE 40MG INJ (PROTONIX) (C9113) IV SCH (08:02)
[2018-07-23] MEDS ORDERED: CINACALCET 30 MG TAB (SENSIPAR) PO SCH (09:00)
[2018-07-23] MEDS ORDERED: METOPROLOL TART 50 MG TAB PO SCH (09:00)
[2018-07-23] MEDS ORDERED: NORCO, ANEXSIA 5/325MG TABLET (HYDROcodone/ACETAMINOPHEN) PO PRN (09:15)
[2018-07-23] MEDS: (RENVELA) SEVELAMER **CARBONate** 800 MG TAB PO SCH ×2 (09:33→11:54)
[2018-07-23] MEDS ORDERED: SLF 3 ML SYR IV PRN (10:00)
--- NOTE | 2018-07-23 13:53 | IPNPDOC ---
Subjective Date Seen The patient was seen on 07/23/18. Subjective Chief Complaint/HPI Patient seen and examined at bedside. States she is doing better today than yesterday. Is able to tolerate PO without nausea/vomiting. Ate breakfast this AM. Has 8/10 lower abdominal pain this morning and reports a little bit of lower back pain, but nothing like yesterday. Admits to hematuria. Denies fevers, chills, chest pain, epigastric abdominal pain, SOB. Has not passed any gas as of yet. Did get up and walk around. Had dialysis yesterday. Nurse reports patient needs something stronger for pain because morphine and tylenol were not helping with pain control for as needed use. Constitutional: Denies: Chills, Fever Eyes: Denies: Vision change ENT: Denies: Head Aches Skin: Denies: Rash Pulmonary: Denies: Dyspnea, Cough Cardiovascular: Denies: Chest Pain Gastrointestinal: Denies: Nausea, Vomiting, Abdominal Pain, Diarrhea, Constipation Genitourinary: Reports: Hematuria; Denies: Dysuria Hematologic: Denies: Bruising Endocrine: Denies: Polydipsia, Polyphagia, Polyuria, Heat Intolerance, Cold Intolerance Musculoskeletal: Denies: Joint Pain, Muscle Pain Neurological: Denies: Weakness, Numbness, Confusion Psych: Reports: Mood Normal Objective Physical Examination General Exam: Positive: Alert, Cooperative, No Acute Distress Eye Exam: Positive: Conjunctiva & lids normal, Sclera icteric ENT Exam: Positive: Atraumatic Neck Exam: Positive: Supple Chest Exam: Positive: Clear to auscultation, Normal air movement; Negative: Rales, Rhonchi, Wheezing Heart Exam: Positive: Rate Normal, Irregular Rhythm, Normal S1, Normal S2; Negative: Murmurs Telemetry: Positive: Atrial fibrillation (HR in 100s-119), Other Telemetry: Abdomen Exam: Positive: Normal bowel sounds, Soft, Tenderness (generalized and moderate); Negative: Hepatospenomegaly Extremity Exam: Negative: Clubbing, Cyanosis, Edema Skin Exam: Positive: Nl turgor and temperature; Negative: Rash Neuro Exam: Positive: Normal Speech Psych Exam: Positive: Mental status NL, Mood NL, Oriented x 3 Assessment /Plan Problems (1) Status post cystoscopy with ureteral stent placement Problem Text: 07/23: Patient is status-post cystoscopy, L ureteroscopy with laser lithotripsy, and L ureteral stent placement POD #1. She is doing fairly well and feels clinically better than yesterday. She had one dose of 2g anceph prior to procedure it seems as per Dr. Lock's Urology note. WBC has normalized to 9.4 today. Stone color is pending, renal calculus pathology is pending, blood cx have been negative x 24 hours, and UA was hard to interpret but showed TNTC RBCs. After examining patient second time today with attending physician, patient's pain was well controlled. She was on morphine IV as well as tylenol. Added vicodin PRN as well. This seems to be helping. IVF were discontinued as patient is not NPO and is tolerating an oral diet. Rest of management as per Urology. Appreciate Urology input. (2) Status post laser lithotripsy of ureteral calculus Problem Text: 07/23: Please see above: assessment #1 for plan. (3) Hydronephrosis concurrent with and due to calculi of kidney and ureter Status: Acute Response to Treatment: Improving Problem Text: 07/23: Improved and stable. Status-post cystoscopy with L ureteroscopy with Laser Lithotripsy and L ureteral stent placement POD #1. 07/22: Urology consulted. Patient is NPO, is going for surgery and retrograde pyelogram with Dr. Lock of Urology this AM. WBC has gone down slightly to 10.3. Pain is being controlled with morphine 2 mg q2h PRN IV severe pain. Patient receiving NS IVF at 50 mLs/hr. Will restart bowel regimen after patient is not NPO after surgery. UA was negative. (4) Obstructive uropathy Status: Acute Problem Text: 07/23: Had dialysis yesterday. Uropathy likely improved secondary to procedure cystocopy, lithotripsy, and L ureteral stent placement by Dr. Lock. 07/22: Secondary to above. (5) Nephrolithiasis Status: Resolved Problem Text: 07/23: Status-post lithotripsy and L ureteral stent placement POD #1. 07/22: Undergoing surgery and retrograde pyelogram with Dr. Lock this AM. Pain control with morphine. Continue gentle IVF due to hx of ESRD and CKD Stage V on chronic HD. (6) End stage renal disease Status: Chronic Response to Treatment: Stable Problem Text: 07/23: Status-post hemodialysis yesterday. Next due for HD on Thursday. Cr has gone down to 6.45 from 8.36 yesterday. Nephrology managing. Appreciate input. 07/22: Patient has HD schedule for Thursday, , and Thursday. Is due for hemodialysis today. Nephrology has been consulted for management of this. (7) Stage 5 chronic kidney disease on chronic dialysis Status: Chronic Response to Treatment: Stable Problem Text: 07/23: Management as per Nephrology. 07/22: Nephrology consulted. Due for HD today. (8) Diabetes mellitus type 2 in obese Status: Chronic Problem Text: 07/23: Is now on oral diet and tolerating PO well. Because not NPO any longer, have d/ce'd IVF D5 NS @ 50 mLs/hr. On sliding scale coverage of Lispro at AC and QHS. Will monitor fingersticks for now. Will hold off on starting basal insulin until we have some data on how the fingersticks are running to see if the basal insulin is needed or not. 07/22: NPO for now until surgery. Will restart 1/2 dose of home regimen of basal insulin: lantus 48 units QHS. Sliding scale coverage as needed. Monitor daily BMPs and fingersticks. (9) Hypertension Status: Chronic Response to Treatment: Stable Problem Text: 07/23: BP was 160/79 around 9 AM this morning. Have d/ce'd IV m etoprolol and started home dose of 50 mg metoprolol PO BID. 07/22: BP well controlled and was 133/72 this AM. On metoprolol 5 mg q6h IV. (10) Chronic diastolic (congestive) heart failure Status: Chronic Response to Treatment: Stable Problem Text: 07/23: CXR performed yesterday had shown mild cardiomegaly, but no new infiltrate. Still no signs of fluid overload clinically on exam today. Will continue current management and to monitor clinically. 07/22: No signs of fluid overload on physical exam. Will obtain CXR this AM to rule out any heart failure signs prior to patient's surgery. (11) COPD (chronic obstructive pulmonary disease) Status: Chronic Response to Treatment: Stable Problem Text: 07/23: Satting 93% on room air. Has had decreased O2 requirement and was on 2L NC prior. Continue duonebs and maintaining O2 between 88-92%. 07/22: Is on duonebs RQ6H and q2hP. Maintain O2 saturation between 88-92% via supplemental oxygen therapy to avoid oxygen toxicity. (12) Anemia of chronic disease Status: Chronic Problem Text: 07/23: Hgb was 9.9 (L) and a bit lower than prior. MCV was macrocytic at 104.9. Continue to monitor CBC for now. 07/22: Stable. Likely secondary to hx of CKD. Hgb was 10.4 (L) and Hct was 33.2 (L) this AM. Previously, Hgb was 11 and Hct was 34.2. Continue to monitor CBC. (13) Obstructive sleep apnea Status: Chronic Problem Text: 07/23: O2 requirement has decreased and patient is now on room air. No desaturation events overnight. Continue to monitor continuous pulse ox. 07/22: Not compliant with CPAP. Will order continuous pulse oximetry. Is on 2L O2 via NC for now. (14) Atrial fibrillation and flutter Status: Chronic Problem Text: 07/23: Metoprolol IV discontinued. Started patient back on her home dose of PO metoprolol 50 mg BID. Rate is controlled. Patient anticoagulated with heparin 5000 units q8h. 07/22: On metoprolol 5 mg q6h IV. Will monitor on telemetry. Hold anticoagulation for now due to surgery this AM. (15) Fatty infiltration of liver Status: Chronic (16) Memory loss Status: Chronic Problem Text: 07/22: Apparently, this is secondary to hx of previous intraventricular bleed. Although, patient was awake, alert, and oriented x 3 on my examination today. (17) Pre-op evaluation Status: Resolved Problem Text: 07/22: Have ordered CXR due to hx of diastolic CHF prior to surgery for surgical optimization. Assuming CXR is normal and/or negative for fluid overload, patient is medically optimized for intermediate risk surgery. Plan/VTE VTE Prophylaxis Ordered?: Yes (heparin 5000 units q8h) Disposition Pending clinical improvement. VS, I&O, 24H, Fishbone Vital Signs/I&O Vital Signs Date Time Temp Pulse Resp B/P (MAP) Pulse Ox O2 Delivery O2 Flow Rate FiO2 07/23/18 12:38 96.3 95 19 121/65 (83) 96 Room Air 07/23/18 05:00 2.0 I&O- Last 24 Hours up to 6 AM 07/23/18 05:59 Intake Total 1615 ml Output Total 1810 ml Balance -195 ml Laboratory Data 24H LABS Laboratory Tests 2 07/22/18 17:46: 07/22/18 20:31: Bedside Glucose (Misc Panel) 103 07/22/18 23:59: Bedside Glucose (Misc Panel) 158H 07/23/18 00:07: Bedside Urine Color (LAB) REDH, Bedside Urine Appearance (LAB) CLOUDYH, Bedside Urine pH (LAB) 8.0, Bedside Urine Specific [place] (LAB 1.014, Bedside Urine Protein (LAB) 3+H, Bedside Urine Glucose (UA) NEGATIVE, Bedside Urine Ketones (LAB) OBSCUREDH, Bedside Urine Blood POSITIVEH, Bedside Urine Nitrite (LAB) OBSCUREDH, Bedside Urine Bilirubin (LAB) OBSCUREDH, Bedside Urine Urobilinogen (LAB) OBSCUREDH, Bedside Urine Leukocyte Esterase (L OBSCUREDH, Urine WBC 0-1, Urine RBC TNTCH, Urine Squamous Epithelial Cells SMALL AMOUNT, Urine Bacteria NONE SEEN, Urine Hyaline Casts NONE SEEN, Urine Sediment Examination UNSPUN 07/23/18 05:23: Nucleated Red Blood Cells % (auto) 0.0, Anion Gap 7L, Glomerular Filtration Rate 7.0L, Blood Urea Nitrogen 36H, Creatinine 6.45H, Sodium Level 141, Potassium Level 5.4H, Chloride Level 105, Carbon Dioxide Level 29, Calcium Level 8.3L 07/23/18 11:50: Bedside Glucose (Misc Panel) 80 CBC/BMP Laboratory Tests 07/23/18 05:23 Red Blood Count 3.05 L, Mean Corpuscular Volume 104.9 H, Mean Corpuscular Hemoglobin 32.5, Mean Corpuscular Hemoglobin Concent 30.9 L, Red Cell Distribution Width 14.9 H, Calcium Level 8.3 L Microbiology Microbiology 07/22/18 Blood Culture, Received Pending 07/21/18 Blood Culture - Preliminary, Resulted No growth after 24 hours . All specim... GME ATTESTATION GME ATTESTATION My faculty preceptor for this patient encounter was Dr. Cullen Sparrow, and w as physically present during the encounter and was fully available. All aspects of the patient interview, examination, medical decision making process, and medical care plan development were reviewed and approved by the faculty preceptor. The faculty preceptor is aware and concurs with the plan as stated in the body of this note and will attest to such by his/her cosignature. EDWIN FERNANDES DO Jul 23, 2018 13:53
[2018-07-23] MEDS ORDERED: SLF 3 ML SYR IV SCH (14:00)
[2018-07-23] MEDS ORDERED: HumaLOG INSULIN (NovoLOG) PER UNIT SC SCH (21:00)
--- NOTE | 2018-07-23 21:02 | RO ---
DATE OF PROCEDURE: 07/22/2018 PREPROCEDURE DIAGNOSIS: Obstructing left ureteral stones. POSTPROCEDURE DIAGNOSIS: Obstructing left ureteral stones. PROCEDURE: Cystoscopy, left ureteroscopy with laser lithotripsy and basket extraction of stones, left retrograde pyelogram with intraoperative interpretation of images, left ureteral stent placement. SURGEON: Dr. Ok Lock DRY CLEANING CHECKER: None. ANESTHESIA: Spinal. OPERATIVE INDICATIONS: This is a 62-year-old female who was found on CT scan to have obstructing left ureteral stones with a 2 mm stone in the distal ureter and an approximately 6-7 mm stone in the proximal ureter. Due to intractable pain, she was brought to the operating room today for the above listed procedure. DESCRIPTION OF PROCEDURE: The patient was brought to the operating room and spinal anesthesia administered. Prophylactic antibiotics were infused. She was then placed in the dorsal lithotomy position and prepped and draped in the usual sterile fashion. A rigid cystoscope was then inserted into the urethral meatus and advanced to the bladder. A guidewire was then advanced up the left collecting system. The wire was secured to the drape to serve as a safety wire. I then went up the left collecting system with a short semirigid ureteroscope and in the distal ureter, a 2 mm stone was seen. The stone was then grasped with a basket and withdrawn completely. At this point, I utilized the wire to advance a ureteral access sheath up into the left collecting system. I then went up the access sheath with a flexible ureteroscope. In the proximal ureter, the 6 mm stone was seen. This stone was fragmented into smaller fragments using 200 micron laser fiber. All of the fragments were removed using the basket. Of note, the patient also had an approximately 4-5 mm lower pole kidney stone. This stone was also fragmented into smaller pieces using a laser. All of the larger fragments were removed with the basket. At this point, a retrograde pyelogram was performed, and it was notable for moderate left hydronephrosis, no extravasation. I then withdrew the ureteroscope along with the access sheath and no additional stones were seen in the ureter. I then utilized the previously placed wire to advance a 6-Syriac x 22-32 cm JJ ureteral stent up into the left collecting system. The wire was then removed, and there were adequate curls of the stent in the left renal pelvis and in the bladder. The bladder was then emptied of all fluids and this marked the conclusion of the procedure. The patient was then taken out of the dorsal lithotomy position, awakened from anesthesia and transported to the recovery room in stable condition. Estimated blood loss: 5 mL. Complications: None. Specimens: Kidney stone fragments. PLAN: The patient will followup in the clinic in a few weeks for stent removal. I will leave the stent in a little bit longer than normal as the proximal stone was impacted and it caused some trauma getting the stone out.
--- NOTE | 2018-07-24 14:55 | IPN ---
DATE: 07/23/2018 SUBJECTIVE: Patient was seen and examined at the bedside today morning. Patient is afebrile and hemodynamically stable. She got the left sided pigtail catheter placed. She reports that her pain is significantly better today. She was also dialyzed yesterday. She tolerated the hemodialysis procedure well. OBJECTIVE: VITAL SIGNS: Temperature 96.3 degrees Fahrenheit. Blood pressure 121/65, pulse 95, respiratory rate 19, saturating 96% on room air. INTAKE AND OUTPUT: Urine output recorded as 410 mL. Ultrafiltration with hemodialysis was 1.5 liters yesterday. Weight in the bed scale is 82.7 kg. PHYSICAL EXAMINATION: GENERAL: Patient is awake, alert and oriented times three. Laying in bed in no apparent distress. HEAD AND NECK EXAMINATION: Extraocular muscles intact. Pupils equally round and reactive to light. Mucus membranes are moist. NECK: Supple. There is no JVD. CARDIOVASCULAR: S1, S2 regular rate. No murmur, rub or gallop. RESPIRATORY: Chest is clear to auscultation bilaterally. Bilateral equal air entry. No rales or rhonchi. ABDOMEN: Soft, positive bowel sounds. Mildly tender in the left renal fossa. MUSCULOSKELETAL: No clubbing, or cyanosis. Pulses are 2+. ENVIRONMENTAL HEALTH SAFETY ENGINEER: No focal deficit. Power is 5/5 in all extremities. LABS: CBC showed a WBC of 9.4, hemoglobin 9.9, platelet 110, BMP showed a sodium 141, potassium 5.4, chloride 105, bicarbonate 29, BUN 36, creatinine 6.4, calcium 8.3. IMAGING: Left sided retrograde pyelogram was done yesterday and double pigtail stent was placed. CURRENT INPATIENT MEDICATIONS: Patient's medications were all reviewed by me. There are no change in the medications today as compared with yesterday. ASSESSMENT: 1. End-stage renal disease on hemodialysis. Patient's regular dialysis days are Thursday, and Thursday. He was dialyzed yesterday. Next hemodialysis will be done tomorrow. If patient is discharged he will be dialyzed as outpatient. 2. Hyperkalemia. Potassium level is within the acceptable range. He will be dialyzed tomorrow. No need of Kayexalate administration at this point. 3. Left sided hydronephrosis status-post left sided double pig-tail catheter placement. Patient's symptoms are significantly better. DISPOSITION: It is okay to discharge the patient from a nephrology standpoint. She will be dialyzed as outpatient if she is discharged today afternoon.
[2018-07-25] MEDS ORDERED: PANTOPRAZOLE 40MG TAB (PROTONIX) PO SCH (09:00)
[2018-08-01] MEDS ORDERED: AUGM500T34 PO (14:03)
[2018-08-01] MEDS ORDERED: FLAG500T PO (14:03)
[2018-08-01] MEDS ORDERED: MAGN1TAB25 PO (14:40)
[2018-08-03 00:06] LABS: COMMENT Note: (.); Ca Ox Monohydrate 80 % (.)
[2018-08-08] MEDS ORDERED: LANTINJ4 SC (11:04)
== END 2018-07-23 15:35 | disposition home or self-care (01) ==
LOC: EDBD 22:48 → M ED 22:48 → M ED INP 22:49 → UNDOADMOB 07-22 01:35 → M ED INP 07-22 19:40 → M PCU 07-22 19:40 → UNDODISOB 07-23 15:35
PROVIDERS: ADMIT Internal Medicine; ATTEND Hospitalist
DX: N18.6 End stage renal disease (principal); N20.1 Calculus of ureter; Z79.899 Other long term (current) drug therapy; I12.0 Hypertensive chronic kidney disease with stage 5 chronic kidney disease or end stage renal disease; J44.9 Chronic obstructive pulmonary disease, unspecified; E11.9 Type 2 diabetes mellitus without complications; I48.91 Unspecified atrial fibrillation; Z79.01 Long term (current) use of anticoagulants; D63.1 Anemia in chronic kidney disease; F41.9 Anxiety disorder, unspecified; G47.33 Obstructive sleep apnea (adult) (pediatric); K76.0 Fatty (change of) liver, not elsewhere classified; I50.30 Unspecified diastolic (congestive) heart failure; E21.1 Secondary hyperparathyroidism, not elsewhere classified; E66.9 Obesity, unspecified
CPT/HCPCS: 36415; 52356; 71045; 74176; 74420; 80048; 80076; 81000; 82360; 83690; 83735; 84443; 85025; 85027; 85610; 87040; 88300; 93005; 93041; 94640; 96361; 96374; 96375; 96376; 99285; C1769; C1894; C2617; C9113; G0257; G0378; J0690; J0882; J1100; J2250; J2270; J2370; J2405; J2710; J3010; Q9961

== ENCOUNTER 2018-08-10 20:39 | Emergency (ER) | payer MEDICARE, MEDICAID ==
[~2018-08-10] VITALS: Ht 152.4 cm; Wt 78.6 kg
[~2018-08-10 20:39] MED LIST changes: +AUGM500T34 PO; +FLAG500T PO; +MAGN1TAB25 PO; +OXYC1TAB23 PO; +STIO1AER IN; +[UNRECOGNIZED DRUG - CODE] IJ
[2018-08-10 22:23] VITALS: BP 125/66
--- NOTE | 2018-08-10 22:32 | REPVR ---
EXAM: US Right Duplex Lower Extremity Veins, Limited EXAM DATE/TIME: 08/10/2018 10:07 PM CLINICAL HISTORY: 62 years old, female; Pain and signs and symptoms; Swelling (edema) of limb; Lower extremity, right; Leg, upper TECHNIQUE: Real-time Duplex ultrasound of the Right Lower Extremity with 2-D burr scale, color Doppler flow and spectral waveform analysis. Limited exam was focused on the right lower extremity veins. COMPARISON: US Duplex, Ext LOWER veins, bilat 01/31/2018 9:00 PM FINDINGS: Right deep veins: Unremarkable. The common femoral, femoral and popliteal veins are patent without thrombus. Normal compressibility, augmentation response and Doppler waveforms. Right superficial veins: Unremarkable. Saphenofemoral junction is patent without thrombus. Soft tissues: Unremarkable. IMPRESSION: No sonographic evidence of deep vein thrombosis. Electronically signed by: Haider Santoyo On 08/10/2018 22:32:44 PM
== END 2018-08-10 22:35 | disposition home or self-care (01) ==
LOC: M ED 20:39
DX: M79.604 Pain in right leg (principal); G89.29 Other chronic pain; I10 Essential (primary) hypertension; E11.9 Type 2 diabetes mellitus without complications; J44.9 Chronic obstructive pulmonary disease, unspecified; E07.9 Disorder of thyroid, unspecified; Z88.8 Allergy status to other drugs, medicaments and biological substances; Z88.1 Allergy status to other antibiotic agents; Z79.899 Other long term (current) drug therapy; Z79.82 Long term (current) use of aspirin; Z79.4 Long term (current) use of insulin

== ENCOUNTER 2018-09-26 12:17 | Emergency (ER) | payer MEDICARE, MEDICAID ==
[~2018-09-26] VITALS: Ht 154.9 cm; Wt 60.9 kg
--- NOTE | 2018-09-26 13:04 | REP ---
Clinical: abdominal pain. Technique: Upright view of the chest with supine and upright views of the abdomen and pelvis. Findings: Frontal upright view of the chest demonstrates no acute cardiopulmonary process or free air below the diaphragm to suspect pneumoperitoneum. Mild enteritis cannot be excluded. No bowel obstruction or perforation. Impression: Nonspecific bowel gas pattern. Possible enteritis. Electronically Signed by Geovanni Scanlon MD 09/26/2018 12:56 P
[2018-09-26 13:23] LABS: BASO % 0.6 % (0.0-1.0); HEMATOCRIT 34.7 % (36.0-47.0); LYMPH # 0.9 10^3/uL (1.5-4.5); LYMPH % 12.6 % (24.0-44.0); MEAN CORPUSCULAR HEMOGLOBIN 31.8 pg (27.0-33.0); MEAN CORPUSCULAR HGB CONC 31.7 g/dl (32.0-36.5); MEAN CORPUSCULAR VOLUME 100.3 fl (80.0-96.0); MONO # 0.8 10^3/uL (0.0-0.8); MONO % 11.1 % (0.0-5.0); NEUTROPHILS # 5.4 10^3/uL (1.8-7.7); NEUTROPHILS % 75.3 % (36.0-66.0); PLATELET COUNT, AUTOMATED 109 10^3/uL (150-450); RED BLOOD COUNT 3.46 10^6/uL (4.00-5.40); WHITE BLOOD COUNT 7.1 10^3/uL (4.0-10.0)
[2018-09-26 13:47] LABS: ALBUMIN 3.4 GM/DL (3.2-5.2); BILIRUBIN,DIRECT 0.2 MG/DL (0.0-0.2); BILIRUBIN,TOTAL 0.3 MG/DL (0.2-1.0); CALCIUM LEVEL 8.9 MG/DL (8.8-10.2); CREATININE FOR GFR 5.02 MG/DL (0.55-1.30); GLOMERULAR FILTRATION RATE 9.3 (>45); POTASSIUM SERUM 4.7 MEQ/L (3.5-5.1)
[2018-09-26] MEDS ORDERED: SENO8.6T10 PO (15:33)
[2018-09-26] MEDS ORDERED: MIRA3350 PO (15:33)
[2018-09-26 15:42] VITALS: BP 150/73
== END 2018-09-26 16:05 | disposition home or self-care (01) ==
LOC: M ED 12:17 → EDBD 12:17 → M ED 16:05
DX: K59.00 Constipation, unspecified (principal); J44.9 Chronic obstructive pulmonary disease, unspecified; E11.9 Type 2 diabetes mellitus without complications; I11.0 Hypertensive heart disease with heart failure; I50.9 Heart failure, unspecified; N18.6 End stage renal disease; G47.33 Obstructive sleep apnea (adult) (pediatric); Z99.2 Dependence on renal dialysis; Z87.891 Personal history of nicotine dependence

== ENCOUNTER 2018-10-04 16:54 | Emergency (ER) | payer MEDICARE, MEDICAID ==
[~2018-10-04] VITALS: Ht 152.4 cm; Wt 78.5 kg
[~2018-10-04 16:54] MED LIST changes: +MIRA3350 PO; +SENO8.6T10 PO
--- NOTE | 2018-10-04 18:39 | REP ---
Chest two views HISTORY: Cough Comparison: 09/26/2018 The lungs are clear. The heart is normal in size. The pulmonary vasculature is normal in appearance. The bony structure is intact. IMPRESSION: No acute disease. Electronically Signed by Arslan Duran MD 10/04/2018 06:30 P
[2018-10-04 18:48] VITALS: O2SAT 92
[2018-10-04 19:04] VITALS: BP 120/70
== END 2018-10-04 19:00 | disposition home or self-care (01) ==
LOC: EDBD 16:54 → M ED 16:54
DX: J06.9 Acute upper respiratory infection, unspecified (principal); I11.0 Hypertensive heart disease with heart failure; I50.9 Heart failure, unspecified; J44.9 Chronic obstructive pulmonary disease, unspecified; N19 Unspecified kidney failure; G47.33 Obstructive sleep apnea (adult) (pediatric); Z99.2 Dependence on renal dialysis; Z99.89 Dependence on other enabling machines and devices; Z79.899 Other long term (current) drug therapy; Z79.890 Hormone replacement therapy; Z79.82 Long term (current) use of aspirin; Z79.01 Long term (current) use of anticoagulants; Z88.1 Allergy status to other antibiotic agents; Z87.891 Personal history of nicotine dependence

== ENCOUNTER 2018-11-13 05:49 | Emergency (ER) | payer MEDICARE, MEDICAID ==
[~2018-11-13 05:49] MED LIST changes: -/AMIO20TA PO; -/ESOM40CA; +ACET-716 PO; -ACET30TAB PO; +AMIO1TAB PO; -AMMO12CR4 TOP; +AMMO12CR7 TOP; +ASPI-1 PO; -ASPI325T PO; +CEFD300C41 PO; -CEFD300CAP PO; -CINA30TA PO; +CINA30TA4 PO; +CRES10TA32 PO; -CRES20TA PO; +CRES20TA2 PO; +HEPA1INJ23 IV; +HEPA500011 IJ; -HEPA50VL IV; +HYDR-3715 PO; -MAGN1TAB25 PO; +MAGN1TAB26 PO; +NEPH1TAB11 PO; -NEPHTAB PO; +NEXI1CAP3; -NORC1TAB4 PO; +NORC1TAB7 PO; -NORCOTAB PO; -ROSU10TA PO; -[UNRECOGNIZED DRUG - CODE] IJ
[2018-11-13] MEDS ORDERED: ACETAMINOPHEN 500 MG TAB PO ONE (06:45)
[2018-11-13] MEDS ORDERED: ESTR62CR PV (08:31)
[2018-11-13 08:52] VITALS: BP 102/63
== END 2018-11-13 08:53 | disposition home or self-care (01) ==
LOC: M ED 05:49 → EDBD 05:49 → M ED 08:53
DX: R10.2 Pelvic and perineal pain (principal); E11.9 Type 2 diabetes mellitus without complications; I13.2 Hypertensive heart and chronic kidney disease with heart failure and with stage 5 chronic kidney disease, or end stage renal disease; I48.92 Unspecified atrial flutter; I50.9 Heart failure, unspecified; I61.5 Nontraumatic intracerebral hemorrhage, intraventricular; J44.9 Chronic obstructive pulmonary disease, unspecified; N18.6 End stage renal disease; M54.9 Dorsalgia, unspecified; R41.3 Other amnesia; Z78.0 Asymptomatic menopausal state; Z79.82 Long term (current) use of aspirin; Z79.891 Long term (current) use of opiate analgesic; Z79.899 Other long term (current) drug therapy; Z79.51 Long term (current) use of inhaled steroids; Z79.4 Long term (current) use of insulin; Z87.440 Personal history of urinary (tract) infections; Z87.442 Personal history of urinary calculi; Z87.891 Personal history of nicotine dependence; Z88.1 Allergy status to other antibiotic agents; Z90.712 Acquired absence of cervix with remaining uterus; Z96.0 Presence of urogenital implants; Z99.2 Dependence on renal dialysis

== ENCOUNTER → 2018-11-29 | Outpatient (REF) | payer MEDICARE, MEDICAID ==
[~2018-11-29] MED LIST changes: +ESTR62CR PV
== END ==
LOC: M LAB REF 13:26
PROVIDERS: ATTEND Internal Medicine Nephrology
DX: N18.6 End stage renal disease (principal); N39.0 Urinary tract infection, site not specified

== ENCOUNTER 2018-12-23 01:06 | Emergency (ER) | payer MEDICARE, MEDICAID ==
[2018-12-23] MEDS ORDERED: KETOROLAC 60 MG/2 ML VIAL (J1885) IM ONE (03:00)
[2018-12-23 03:39] VITALS: BP 110/58
--- NOTE | 2018-12-23 09:39 | REP ---
RIGHT ANKLE, TWO VIEWS: AP and lateral views of the right ankle are performed. There is no acute fracture or dislocation. Ankle mortise is anatomic. There is moderate inferior calcaneal spurring. IMPRESSION: No acute fracture or dislocation. Electronically Signed by Scout King MD 12/23/2018 04:26 P
--- NOTE | 2018-12-23 09:40 | REP ---
LUMBOSACRAL SPINE: AP and lateral views of the lumbosacral spine performed. There is no compression fracture. There is normal alignment and lumbar lordosis. There is moderate disc space narrowing and subchondral sclerosis at L4-5, L5-S1. There is sclerosis of the facets at L5-S1. The posterior elements appear intact. There is mild diffuse spurring. IMPRESSION: Degenerative change without fracture or dislocation. Electronically Signed by Scout King MD 12/23/2018 04:27 P
--- NOTE | 2018-12-23 09:41 | REP ---
LEFT KNEE, TWO VIEWS: There is no evidence of an acute fracture, dislocation or intrinsic bone disease. IMPRESSION: No fracture or dislocation. Electronically Signed by Scout King MD 12/23/2018 04:27 P
--- NOTE | 2018-12-23 10:00 | REP ---
LEFT RIB SERIES: Five views. HISTORY: Trauma. FINDINGS: PA chest radiograph shows no evidence of pneumothorax or hydrothorax. Mediastinum is not widened. There is a somewhat nodular density in the left lung apex which merits further evaluation. An incidental pulmonary nodule cannot be excluded. Alternatively, it may relate to sclerosis of the medial clavicle on the left overlying the chest. There is mild linear fibrosis in the left base unchanged. Multiple views of the left rib cage demonstrate no visualized rib fracture or bony destructive lesion. IMPRESSION: No rib fracture seen. Nodular density projecting at the apex of the left lung on the PA chest x-ray. Consider chest CT study. Pulmonary nodule versus sclerotic change in the medial clavicle on the left. Electronically Signed by Florin Mauricio MD 12/23/2018 02:34 P
--- NOTE | 2018-12-25 08:35 | ED PDOC ---
Post-Departure Follow-Up dr bass faxed formal report of rib films for fu Araceli Palacio MD Dec 25, 2018 08:35
== END 2018-12-23 03:41 | disposition home or self-care (01) ==
LOC: M ED 01:09 → EDBD 01:09 → M ED 03:41
DX: S80.02XA Contusion of left knee, initial encounter (principal); S29.001A Unspecified injury of muscle and tendon of front wall of thorax, initial encounter; M94.9 Disorder of cartilage, unspecified; M54.5 Low back pain; W01.10XA Fall on same level from slipping, tripping and stumbling with subsequent striking against unspecified object, initial encounter; Y92.091 Bathroom in other non-institutional residence as the place of occurrence of the external cause; E11.9 Type 2 diabetes mellitus without complications; N19 Unspecified kidney failure; Z99.2 Dependence on renal dialysis; Z88.8 Allergy status to other drugs, medicaments and biological substances; Z79.899 Other long term (current) drug therapy; Z79.4 Long term (current) use of insulin; Z79.82 Long term (current) use of aspirin
CPT/HCPCS: 71101; 72100; 73560; 73600; 96372; 99284; J1885

== ENCOUNTER 2019-01-06 05:49 | Inpatient (IN) | payer MEDICARE, MEDICAID ==
[~2019-01-06] VITALS: Ht 154.9 cm; Wt 75.2 kg
[2019-01-06] MEDS: LEVOTHYROXINE 75MCG TABLET (0.075MG) PO SCH (06:00)
[2019-01-06 06:28] LABS: BASO % 0.8 % (0.0-1.0); HEMATOCRIT 30.6 % (36.0-47.0); HEMOGLOBIN 9.7 g/dl (12.0-15.5); LYMPH # 0.9 10^3/uL (1.5-4.5); LYMPH % 19.7 % (24.0-44.0); MEAN CORPUSCULAR HGB CONC 31.7 g/dl (32.0-36.5); MEAN CORPUSCULAR VOLUME 107.4 fl (80.0-96.0); MONO # 0.6 10^3/uL (0.0-0.8); MONO % 11.7 % (0.0-5.0); NEUTROPHILS # 3.2 10^3/uL (1.8-7.7); NEUTROPHILS % 67.6 % (36.0-66.0); PLATELET COUNT, AUTOMATED 105 10^3/uL (150-450); RED BLOOD COUNT 2.85 10^6/uL (4.00-5.40); WHITE BLOOD COUNT 4.8 10^3/uL (4.0-10.0)
--- NOTE | 2019-01-06 06:29 | REPVR ---
EXAM: CT Head Without Contrast EXAM DATE/TIME: 01/06/2019 6:05 AM CLINICAL HISTORY: 63 years old, female; Injury or trauma; Fall; Additional info: Fall - dizzy TECHNIQUE: Imaging protocol: Axial computed tomography images of the head without contrast. Radiation optimization: All CT scans at this facility use at least one of these dose optimization techniques: automated exposure control; mA and/or kV adjustment per patient size (includes targeted exams where dose is matched to clinical indication); or iterative reconstruction. COMPARISON: CT Head without contrast 08/06/2018 10:55 AM FINDINGS: Brain: Normal. No hemorrhage. Unremarkable white matter. No mass effect. Ventricles: Normal. No ventriculomegaly. Bones/joints: Unremarkable. No acute fracture. Sinuses: Mild mucosal thickening of ethmoidal air cells. Mastoid air cells: Visualized mastoid air cells are well aerated. No mastoid effusion. Soft tissues: Minimal right frontal soft tissue swelling. IMPRESSION: No intracranial abnormality. Electronically signed by: Adrianna Cordova On 01/06/2019 06:28:51 AM
[2019-01-06 06:42] LABS: INR 0.92; PROTHROMBIN TIME 12.5 SECONDS (12.1-14.4)
[2019-01-06 06:55] LABS: ALBUMIN 3.4 GM/DL (3.2-5.2); ALT/SGPT 18 U/L (12-78); BILIRUBIN,DIRECT 0.1 MG/DL (0.0-0.2); BILIRUBIN,TOTAL 0.3 MG/DL (0.2-1.0); CK-MB VALUE MASS < 1.0 NG/ML (<3.6); CPK CREATINE PHOSPHOKINASE 18 U/L (26-192); LIPASE 165 U/L (73-393); MB/CK RELATIVE INDEX 5.56 (< OR =4); TOTAL PROTEIN 6.7 GM/DL (6.4-8.2); TROPONIN I < 0.02 NG/ML (< 0.10)
[2019-01-06 08:23] LABS: BLOOD UREA NITROGEN 42 MG/DL (7-18); CALCIUM LEVEL 9.3 MG/DL (8.8-10.2); CARBON DIOXIDE LEVEL 29 MEQ/L (21-32); CHLORIDE LEVEL 104 MEQ/L (98-107); CREATININE FOR GFR 7.12 MG/DL (0.55-1.30); GLOMERULAR FILTRATION RATE 6.2 (>45); GLUCOSE, FASTING 91 MG/DL (70-100); POTASSIUM SERUM 5.3 MEQ/L (3.5-5.1); SODIUM LEVEL 142 MEQ/L (136-145)
--- NOTE | 2019-01-06 08:47 | REP ---
CHEST, TWO VIEWS: Two views of the chest are performed. There is mild to moderate cardiomegaly. There is bibasilar fibroatelectatic change. There is mild elevation of the left hemidiaphragm. No definite acute infiltrate is seen. Mild calcification of the thoracic aorta. The mediastinal silhouette is unchanged. There are mild degenerative changes of the spine. IMPRESSION: Mild to moderate cardiomegaly with bibasilar fibroatelectatic change. No definite acute infiltrate. Electronically Signed by Scout King MD 01/06/2019 04:33 P
[2019-01-06] MEDS ORDERED: METOPROLOL TART 25 MG TABLET PO ONE (10:00)
[2019-01-06] MEDS ORDERED: LIDOCAINE 1% SDV 5 ML VIAL SQ ONE (10:00)
[2019-01-06] MEDS ORDERED: HEPARIN 1,000 UNITS/ML 10ML VIAL (FOR RADIOLOGY& DIALYSIS ONLY) IV ONE (10:00)
[2019-01-06] MEDS ORDERED: CYCL5TAB PO (10:10)
[2019-01-06] MEDS ORDERED: METO25TA4 PO (10:10)
[2019-01-06] MEDS ORDERED: MECL-68 PO (10:10)
[2019-01-06] MEDS ORDERED: HYDR-4571 PO (10:10)
[2019-01-06] MEDS ORDERED: DIAZ5TAB PO (10:10)
[2019-01-06] MEDS ORDERED: LANTINJ4 SC (10:10)
[2019-01-06] MEDS ORDERED: SENN8.6T28 PO (10:10)
--- NOTE | 2019-01-06 11:31 | CR ---
DATE OF CONSULTATION: 01/06/2019 REQUESTING PROVIDER: Dr. Conchita Cobos REASON FOR CONSULTATION: To assist in the management of end-stage renal disease. HISTORY OF PRESENT ILLNESS: Mrs. Carnes is a 63-year-old female with multiple chronic medical problems, including a known history of type 2 diabetes, end-stage renal disease, chronic atrial fibrillation, prior history of intraventricular bleed many years ago, hypertensive cardiovascular disease, history of obstructive sleep apnea and chronic obstructive pulmonary disease (COPD). She has worsening problem with dizziness, generalized weakness and poor balance for a couple of weeks. She was seen by her primary care physician and her antihypertensives were cutdown. She was also treated symptomatically with Antivert; however, her symptoms have not improved. She did fall a couple of weeks ago at home and feels very unsafe and unsteady on her feet whenever she gets up. She presented to the emergency room today and a CT scan of head was done, which did not show any acute infarct. She has been admitted due to her inability to function at home. She is due for dialysis today and a nephrology consultation was requested. PAST MEDICAL AND SURGICAL HISTORY Significant for: 1. Longstanding type 2 diabetes. 2. Hypertension. 3. Hypothyroidism. 4. Prior history of intraventricular bleed many years. 5. History of chronic atrial fibrillation. 6. History of hypertensive cardiovascular disease. 7. History of end-stage renal disease requiring maintenance hemodialysis. 8. Hyperlipidemia. 9. History of obstructive sleep apnea. 10. History of chronic obstructive pulmonary disease (COPD). PAST SURGICAL HISTORY: Significant for AV fistula creation and intracranial bleed. MEDICATIONS: Her home medications include: - Lantus insulin - Nephro-Mirella 1 tablet daily - vitamin D 50,000 units once a week - Renagel 800 mg three tablets three times a day with meals - aspirin 325 mg daily - calcitriol 0.5 mcg two capsules three times a week - Sensipar 30 mg once a week - levothyroxine 75 mcg daily - metoprolol 25 mg twice a day - trazodone 100 mg at bedtime - Lovaza 1 gram two capsules twice a day - omeprazole 40 mg daily - Zofran as needed for nausea - Crestor 20 mg daily - Senokot-S one tablet as needed for constipation ALLERGIES: She has allergy to QUINOLONES. PERSONAL AND SOCIAL HISTORY: The patient has no history of alcohol, tobacco or drug use. She lives with her family. FAMILY HISTORY: Negative for end stage renal disease. Both parents are . Her mother had a stroke and she also has two siblings with diabetes. REVIEW OF SYSTEMS: She denies any headache but does feel lightheaded and unstable whenever she stands up. She denies any double vision or other eye problems. Nose and throat are unremarkable. Cardiovascular system is significant for chronic atrial fibrillation. She is not felt to be suitable for anticoagulation. Cardiovascular system is otherwise unremarkable. She does get short of breath prior to dialysis at times but does get hypotensive frequently during dialysis. Respiratory system is significant for chronic obstructive pulmonary disease (COPD) and obstructive sleep apnea. She denies any hemoptysis or pleuritic type of chest pain. Gastrointestinal system is negative for vomiting, diarrhea or abdominal pain. Genitourinary system is negative for dysuria or hematuria. Endocrine system is significant for hyperparathyroidism, hypothyroidism and type 2 diabetes. Psychosocial system is significant for depression and anxiety at times. Neurological system is significant for prior history of intraventricular bleed. She denies any seizures. Skin is negative for rash or ulcers. Musculoskeletal system is negative for leg edema. PHYSICAL EXAMINATION: The patient is awake and alert at the time of my visit today. Temperature is 97.5 degrees Fahrenheit, heart rate 115 per minute and respiratory rate 18 per minute. Blood pressure 133/84 mmHg and oxygen saturation 95% on room air. Head is atraumatic. Pupils equal and reactive to light and sclera is anicteric. Neck is supple and without jugular venous distention (JVD) or thyroid enlargement. There is no audible carotid bruit. Heart sounds are tachycardiac and irregular. Lungs sound clear to auscultation. Abdomen is soft and nontender. Bowel sounds are normal. Extremities have no cyanosis or clubbing. Her left arm AV fistula is functioning. Neurologically, she is awake, alert and at her baseline mentation. LABORATORY DATA: Her admission labs show WBC of 4.8, hemoglobin 9.7 and hematocrit 30.6. Platelets are 105. Sodium 142, potassium 5.3, BUN 42 and creatinine 7.12. Total protein 6.7 and albumin 3.4. INR is 0.92. PROBLEMS: 1. End-stage renal disease. The patient is regularly dialyzed on Thursday, and Thursday schedule. She is due for dialysis today and we will dialyze her this morning. In fact, she is already in the dialysis room and currently on dialysis. 2. Hyperkalemia. She has mild hyperkalemia, which will be corrected with dialysis and no other intervention would be indicated. We are using 2.0 mEq potassium bath. 3. Dizziness and falls. The patient has poor balance and does not feel safe whenever she stands up. CT scan of head was negative. It remains to be seen if it is a neurological problem. We will try to prevent any hypotension during dialysis. No aggressive fluid removal will be attempted as her volume status is reasonably well-compensated. 4. Hypertensive cardiovascular disease. Blood pressure is well-controlled and her volume status also seems reasonably well-compensated. We will remove about 1.5 liters of fluid as tolerated. Thank you for involving me in the care of Ms. Carnes, I will follow her along with you.
[2019-01-06] MEDS ORDERED: GLUCAGON FOR INJ 1 MG VIAL (J1610) SC PRN (12:15)
[2019-01-06] MEDS ORDERED: SENNA 8.6 MG TAB (SENOKOT) PO PRN (12:15)
[2019-01-06] MEDS ORDERED: DEXTROSE 50% 50 ML SYRINGE IV PRN (12:15)
[2019-01-06] MEDS ORDERED: CYCLOBENZAPRINE 5MG TABLET PO PRN (12:15)
[2019-01-06] MEDS ORDERED: GLUCOSE 4 GM CHEW TABLET PO PRN (12:15)
[2019-01-06] MEDS ORDERED: MECLIZINE 25 MG TABLET PO PRN (12:15)
[2019-01-06] MEDS ORDERED: LACTIC ACID 12% LOTION 225 GM BTL TOP PRN (12:15)
--- NOTE | 2019-01-06 13:31 | HPEPDOC ---
[facility] Medical History & Physical Date of Admission Jan 06, 2019 Date of Service: Jan 06, 2019 History and Physical CHIEF COMPLAINT: Dizziness, Fall two weeks ago HISTORY OF PRESENTING ILLNESS: 63 y/o female with past medical history significant for Atrial Fibrillation/ Atrial Flutter managed by Dr. Pearl previously on coumadin, complicated by intracerebral hemorrhage / intraventricular hemorrhage in 2007 fr om previous coumadin use, and has refused anticoagulation since, mild cognitive impairment, multifactorial gait abnormality, DM peripheral neuropathy, presents to the Emergency room with on and off dizziness for the past few months, which has worsened in the past two weeks, resulting in loss of balance at home two weeks ago when she got up to go to the bathroom, hitting her left breast and chest on the table first before landing on her knees. Since then, pt has had several episodes of dizziness worse when she gets up quickly or turns her head, inability to focus her eyes, and weakness of her legs. Her PCP had decreased her medications due to low blood pressure, and she has found her heart rate increase to 120-130 at home. Latest episode of dizziness was yesterday when her blood pressure was 108 systolic and 89 beats per minute on her home monitor. She has noticed worsening pain in her lower back since her fall as well as weakness in her legs "feeling like they're going to give way." She otherwise denies any nausea, vomiting, abdominal pain, diaphoresis, blurred vision, diplopia, e xpressive aphasia, dysphagia, upper extremity paresthesias/ weakness, but admits to gait abnormalities despite using her cane at home. She denies any dysuria, urgency, frequency, fever, chills , and was treated for UTI a week ago. She denies any shortness of breath, cough chills, bright red blood per rectum, diarrhea, constipation, hematemesis, sob, chest pain,pressure,tightness, lightheadedness, changes in weight, changes in appetite, rhinorrhea, ear pain, ear discharge, tinnitus, joint pains. No change in visual acuity. In the ER, CT head was negative for acute ischemia or hemorrhage, EKG: Atrial fibrillation rate of 91, normal CXR without acute infiltrate. Hospitalist was asked to admit. PAST MEDICAL HISTORY: Intracerebral hemorrhage and intraventricular hemorrhage in 2007 while on coumadin for Atrial fibrillation Diabetes Mellitus type 2 with nephropathy Hypothyroidism. intraventricular bleed many years. Atrial fibrillation / Atrial Flutter . HTN End-stage renal disease on maintenance hemodialysis since 2010 Hyperlipidemia. obstructive sleep apnea unable to use BIPAP due to neck issues chronic obstructive pulmonary disease (COPD) Anemia of Chronic Disease Obesity Fatty Liver chronic anxiety grade 1 Diastolic Heart Failure LVEF 65-70%. shoulder DJD vocal cord dysfunction Kidney stones tricuspid insufficiency. moderate pulmonary hypertension. PAST SURGICAL HISTORY: C-sections lumbar discectomies breast biopsy colonoscopy hysterectomy due to heavy bleeding nasal cautery for bleeding eye surgert 15 yrs ago ventriculostomy for intraventricular bleeding Hemodialysis AV fistula creation FNA Biopsy of Thyroid nodule Oral surgery Hyperparathyroidism HOME MEDICATIONS: - Lantus insulin - Nephro-Mirella 1 tablet daily - vitamin D 50,000 units once a week - Renagel 800 mg three tablets three times a day with meals - aspirin 325 mg daily - calcitriol 0.5 mcg two capsules three times a week - Sensipar 30 mg once a week - levothyroxine 75 mcg daily - metoprolol 25 mg twice a day - trazodone 100 mg at bedtime - Lovaza 1 gram two capsules twice a day - omeprazole 40 mg daily - Zofran as needed for nausea - Crestor 20 mg daily - Senokot-S one tablet as needed for constipation ALLERGIES: GATIFLOXACIN-ANAPHYLAXIS AND SWOLLEN TONGUE TEQUIN-ANAPHYLAXIS AND SWOLLEN TONGUE AZITHROMYCIN-LIP AND FACE SWELLING, DYSPNEA SOCIAL HISTORY: quit smoking 14 years ago. denies alcohol use. has 2 children. lives alone in an apartment in [place]. . FAMILY HISTORY: Negative for end stage renal disease. Both parents are . Her mother had a stroke and she also has two siblings with diabetes. One with cluster headaches REVIEW OF SYSTEMS: denies any nausea, vomiting, abdominal pain, diaphoresis, blurred vision, diplopia, expressive aphasia, dysphagia, upper extremity paresthesias/ weakness, but admits to gait abnormalities despite using her cane at home. She denies any dysuria, urgency, frequency, fever, chills , and was treated for UTI a week ago. She denies any shortness of breath, cough chills, bright red blood per rectum, diarrhea, constipation, hematemesis, sob, chest pain,pressure,tightness, lightheadedness, changes in weight, changes in appetite, rhinorrhea, ear pain, ear discharge, tinnitus, joint pains. Hospitalist was called to admit for dizziness. She denies any headache . PHYSICAL EXAMINATION: Vitals: pls see below General: NCAT. Pupils equal and reactive to light and sclera is anicteric. speech is fluent. face symmetric. awake alert oriented x 3 able to provide history. no respiratory distress no use of accessory respiratory muscles. tongue midline. Neck is supple and without jugular venous distention (JVD) or thyroid enlargement. There is no audible carotid bruit. Heart sounds atachycardic irregularly irregular right 2nd intercostal space midsystolic murmur. no carotid bruits. peripheral pulses wnl Lungs sound clear to auscultation. no wheezing rales or rhonchi. left breast echymoses on lateral side Abdomen is soft and nontender. Bowel sounds are normal. Extremities have no cyanosis or clubbing. Her left arm AV fistula is functioning. Musculoskeletal: no CVA tenderness. slightly tender in L3 region. SLR could not be performed due to pain. Neurologically:Pupils equal and reactive to light , no horizontal or vertical nystagmus, and sclera is anicteric. speech is fluent. face symmetric. awake alert oriented x 3 able to provide history. tongue midline. no pronator drift. 5/5 strength in b/l UE and LE. DTRs intact b/l. neg babinski b/l. no sensory disturbance. gait not tested. SLR test could not be performed due to back pain. LABORATORY DATA, IMAGING STUDIES, MICROBIOLOGY: PLS SEE BELOW WBC of 4.8, hemoglobin 9.7 and hematocrit 30.6. Platelets are 105. Sodium 142, potassium 5.3, BUN 42 and creatinine 7.12. Total protein 6.7 and albumin 3.4. INR is 0.92. 01/06/19 EKG:Atrial Fibrillation ventricular rate 99. IVCD. ST depression 01/06/19 CHEST, TWO VIEWS: Two views of the chest are performed. There is mild to moderate cardiomegaly. There is bibasilar fibroatelectatic change. There is mild elevation of the left hemidiaphragm. No definite acute infiltrate is seen. Mild calcification of the thoracic aorta. The mediastinal silhouette is unchanged. There are mild degenerative changes of the spine. IMPRESSION: Mild to moderate cardiomegaly with bibasilar with bibasilar fibroatelectatic change. No definite acute infiltrate. Unreviewed DD: Scout King MD, MD 01/06/19 0824 DT: ALIA 01/06/19 0847 DS: CT Head 01/06/19: There is no acute intracranial abnormality. Small old lacunar infarct in left frontal centrum semiovale Mild prominence of ventricles and sulci representing volume loss. Mild small vessel ischemic changes are seen. There is no mass, midline shift, or mass effect. King-white matter differentiation is preserved. There is no evidence of hemorrhage. There is no extra-axial fluid collection. Basal cisterns are patent. Mild mucosal thickening of ethmoidal air cells. Mastoid air cells are clear. The visualized osseous structures are unremarkable. Impression: Mild volume loss and small vessel ischemic changes. . No acute intracranial abnormality. Electronically signed by: Adrianna Cordova On 01/06/2019 06:31:30 AM 08/06/[address] Pearl: LVEF 65-70%. Normal LV size with mild LVH and hyperdynamic LV systolic function. RV appears normally contractile. Severe Biatrial Enlargement. Aortic Sclerosis. Mild mitral and [id number] tricuspid insufficiency. Elevated Central venous pressure and at least moderate pulmonary hypertension. ASSESSMENT AND PLAN:63 y/o female with past medical history significant for Atrial Fibrillation/ Atrial Flutter managed by Dr. Pearl previously on coumadin, complicated by intracerebral hemorrhage / intraventricular hemorrhage in 2008 from previous coumadin use, and has refused anticoagulation since, mild cognitive impairment, multifactorial gait ab normality, DM peripheral neuropathy, presents to the Emergency room with on and off dizziness for the past few months, which has worsened in the past two weeks, resulting in loss of balance at home two weeks ago when she got up to go to the bathroom, hitting her left breast and chest on the table first before landing on her knees. Since then, pt has had several episodes of dizziness worse when sh e gets up quickly or turns her head, inability to focus her eyes, and weakness of her legs. Her PCP had decreased her medications due to low blood pressure, and she has found her heart rate increase to 120-130 at home. Latest episode of dizziness was yesterday when her blood pressure was 108 systolic and 89 beats per minute on her home monitor. She otherwise denies any nausea, vomiting, abdominal pain, diaphoresis, blurred vision, diplopia, expressive aphasia, dysphagia, upper extremity paresthesias/ weakness, but admits to gait abnormalities despite using her cane at home. She denies any dysuria, urgency, frequency, fever, chills , and was treated for UTI a week ago. She denies any shortness of breath, cough chills, bright red blood per rectum, diarrhea, constipation, hematemesis, sob, chest pain,pressure,tightness, lightheadedness, changes in weight, changes in appetite, rhinorrhea, ear pain, ear discharge, tinnitus, joint pains. No change in visual acuity. In the ER, CT head was negative for acute ischemia or hemorrhage, EKG: Atrial fibrillation rate of 91, normal CXR without acute infiltrate. Hospitalist was asked to admit. Gait Imbalance - with complaints of dizziness and vertigo - with recent fall at home -most likely multifactorial due to uncontrolled atrial fibrillation, orthostasis, diabetic neuropathy, and possible cerebellar ischemic event due to afib and not being on anticoagulation. -CT head: no intracranial bleed or ischemia -admitted to telemetry to adjust meds for better rate control for her atrial fibrillation -MRI/MRA brain to rule out cerebellar ischemia from Afib wnd not being on anticoagulation. -Neurology Dr. Torres has been consulted. -PT/OT/ARU screen -deferred to nephrology for fluid balance needs Vertigo - no recent URI symptoms to suspect viral labyrinthitis -still need to rule out central vs peripheral vertigo - with recent fall at home -most likely multifactorial due to uncontrolled atrial fibrillation, orthostasis, diabetic neuropathy, and possible cerebellar ischemic event due to afib and not being on anticoagulation. -CT head: no intracranial bleed or ischemia -admitted to telemetry to adjust meds for better rate control for her atrial fibrillation -MRI/MRA brain to rule out cerebellar ischemia from Afib wnd not being on anticoagulation. -Neurology Dr. Torres has been consulted. -PT/OT/ARU screen -deferred to nephrology for fluid balance needs Atrial Fibrillation with rapid ventricular response -goal hr <110 -resumed home dose of metoprolol, but limited by pt's blood pressure. -may benefit from digoxin, but at risk of digoxin toxicity with the renal failure -if does not respond, may need to start on amiodarone and have Dr. Pearl help manage the pt. -pt has refused to take any anticoagulation since her ICH in 2007 -per the patient, Cardiology has previously recommended a Watchman device. Chronic Neck and Back Pain -due to recent fall with increased pain in the lower back, and c/o b/l LE weakness, will check MRI Lumbar spine. -may need to consult orthopedic surgery -kpad and prn pain meds. -check vitamin d levels End-stage renal disease. -Dr. lomas nephrology has been consulted for maintenance dialysis needs on Thursday, and Thursday . -defer all fluid mgt to nephrology Hyperkalemia. - corrected with dialysis and no other intervention would be indicated. Hypertension -resumed home meds with holding parameters Intracerebral hemorrhage and intraventricular hemorrhage in 2007 while on coumadin for Atrial fibrillation -pt has refused anticoagulation since the ICH Diabetes Mellitus type 2 with nephropathy -consistent carbs diet, levemir insulin, and sliding scale. check a1c Hypothyroidism. 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 grade 1 Diastolic Heart Failure LVEF 65-70%. -compensated shoulder DJD -chronic History of vocal cord dysfunction -no sob or respiratory distress Kidney stones -previously saw Urology. no acute symptoms tricuspid insufficiency. 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 -documented on previous echo 07/2018 Diet: consistent carbs, renal diet DVT prophylaxis: heparin sq, and compression stockings code status: full code. Vital Signs Vital Signs Date Time Temp Pulse Resp B/P (MAP) Pulse Ox O2 Delivery O2 Flow Rate FiO2 01/06/19 09:34 97.5 115 18 133/84 (100) 95 Room Air Laboratory Data Labs 24H Laboratory Tests 2 01/06/19 06:13: Immature Granulocyte % (Auto) 0.2, White Blood Count 4.8, Red Blood Count 2.85L, Hemoglobin 9.7L, Hematocrit 30.6L, Mean Corpuscular Volume 107.4H, Mean Corpuscular Hemoglobin 34.0H, Mean Corpuscular Hemoglobin Concent 31.7L, Red Cell Distribution Width 13.8, Platelet Count 105L, Neutrophils (%) (Auto) 67.6H, Lymphocytes (%) (Auto) 19.7L, Monocytes (%) (Auto) 11.7H, Eosinophils (%) (Auto) 0.0, Basophils (%) (Auto) 0.8, Neutrophils # (Auto) 3.2, Lymphocytes # (Auto) 0.9L, Monocytes # (Auto) 0.6, Eosinophils # (Auto) 0.0, Basophils # (Auto) 0.0, Nucleated Red Blood Cells % (auto) 0.0, Prothrombin Time 12.5, Prothromb Time International Ratio 0.92, Anion Gap 9, Glomerular Filtration Rate 6.2L, Calcium Level 9.3, Aspartate Amino Transf (AST/SGOT) 10, Alanine Aminotransferase (ALT/SGPT) 18, Alkaline Phosphatase 161H, Total Bilirubin 0.3, Direct Bilirubin 0.1, Total Creatine Kinase 18L, Creatine Kinase MB < 1.0, Creatine Kinase MB Relative Index 5.56H, Troponin I < 0.02, Total Protein 6.7, Albumin 3.4, Albumin/Globulin Ratio 1.03, Lipase 165 CBC/BMP Laboratory Tests 01/06/19 06:13 Red Blood Count 2.85 L, Mean Corpuscular Volume 107.4 H, Mean Corpuscular Hemoglobin 34.0 H, Mean Corpuscular Hemoglobin Concent 31.7 L, Red Cell Distribution Width 13.8, Neutrophils (%) (Auto) 67.6 H, Lymphocytes (%) (Auto) 19.7 L, Monocytes (%) (Auto) 11.7 H, Eosinophils (%) (Auto) 0.0, Basophils (%) (Auto) 0.8, Neutrophils # (Auto) 3.2, Lymphocytes # (Auto) 0.9 L, Monocytes # (Auto) 0.6, Eosinophils # (Auto) 0.0, Basophils # (Auto) 0.0 Home Medications Scheduled Aspirin (Aspirin) 325 Mg Tab, 325 MG PO DAILY Calcitriol (Rocaltrol) 0.25 Mcg Cap, 0.75 MCG PO 3XW RECEIVES AT DIALYSIS THURSDAY,THURSDAY,THURSDAY Cinacalcet (Sensipar) 30 Mg Tab, 30 MG PO QWEEK FRIDAYS Cyclobenzaprine HCl (Cyclobenzaprine HCl) 5 Mg Tablet, 5 MG PO QHS Diazepam (Diazepam) 5 Mg Tablet, 5 MG PO QHS Ergocalciferol (Vitamin D2) (Drisdol) 50,000 Unit Cap, 50,000 UNIT PO Q2WK SUNDAYS Folic Acid/Vit B Complex and C (Kyra-Mirella Tablet) 1 Tab Tab, 1 TAB PO DAILY Heparin Sodium,Porcine (Heparin Sodium) 5,000 Unit/Ml Inj, 2,000 UNIT IJ ASDIRECTED RECEIVES AT DIALYSIS TREATMENTS THURSDAY, THURSDAY AND THURSDAY Insulin Glargine,Hum.rec.anlog (Lantus Solostar) 100 Unit/1 Ml Insuln.pen, 1 DOSE SC QHS PATIENT STATES SHE TAKES EITHER 10 UNITS OR 48 UNITS DEPENDING ON HER SUGARS Levothyroxine Sodium (Levothyroxine Sodium) 75 Mcg Tab, 75 MCG PO DAILY Metoprolol Tartrate (Metoprolol Tartrate) 25 Mg Tablet, 12.5 MG PO BID Omeprazole (Omeprazole) 40 Mg Cap, 40 MG PO DAILY Rosuvastatin Calcium (Crestor) 20 Mg Tab, 20 MG PO QHS Sevelamer Carbonate (Renvela) 800 Mg Tab, 2,400 MG PO WM Sodium Polystyrene Sulfonate (Sps 15 gm/60 ml Suspension) 15 Gm/60 Ml Susp, 15 GM PO ASDIRECTED ONLY TAKES IF TOLD TO BY DIALYSIS Tiotropium Br/Olodaterol HCl (Stiolto Respimat Inhal [place]) 1 Aer Aer, 2 PUFFS IN DAILY Trazodone HCl (Trazodone HCl) 100 Mg Tab, 100 MG PO QHS Scheduled PRN Ammonium Lactate (Ammonium Lactate) 12 % Cre, 1 DOSE TOP BID PRN for DRY FEET APPLIES TO FEET Cyclobenzaprine HCl (Cyclobenzaprine HCl) 5 Mg Tab, 5 MG PO BID PRN for MUSCLE SPASMS Diazepam (Diazepam) 5 Mg Tab, 5 MG PO DAILY PRN for ANXIETY Hydrocodone/Acetaminophen (Hydrocodone-Acetamin 5-325 mg) 1 Each Tablet, 1 TAB PO DAILY PRN for PAIN Meclizine HCl (Meclizine HCl) 25 Mg Tablet, 25 MG PO TID PRN for DIZZINESS Sennosides (Senna) 8.6 Mg Tablet, 8.6 MG PO BID PRN for CONSTIPATION Allergies Coded Allergies: Quinolones (Verified Allergy, Severe, 11/13/18) A-FIB/CHADSVASC A-FIB History Current/History of A-Fib/PAF?: Yes Current PO Anticoag Therapy: No Treatment Reason Anticoagulant not given: Patient refusal CALISTA DOMINGUEZ MD Jan 06, 2019 12:17
[2019-01-06 14:05] VITALS: BP 128/75
[2019-01-06 14:15] VITALS: BP_SYST 110; BP_SYST 115; BP_SYST 122; BP_DIAS 64; BP_DIAS 75; BP_DIAS 80
[2019-01-06] MEDS: OMEPRAZOLE 20 MG CAP PO SCH (15:19)
[2019-01-06] MEDS: CALCITRIOL 0.25 MCG CAP (S0169) PO SCH (15:20)
[2019-01-06] MEDS: ASPIRIN 325 MG TAB PO SCH (15:21)
[2019-01-06] MEDS: METOPROLOL TART 12.5 MG PER 1/2 TAB PO SCH ×2 (15:21→22:20)
[2019-01-06 16:00] VITALS: BP 118/63
[2019-01-06] MEDS: HumaLOG INSULIN (NovoLOG) PER UNIT SC SCH ×2 (18:24→21:00)
[2019-01-06 19:11] VITALS: BP 124/64
[2019-01-06] MEDS: LEVEMIR (INSULIN DETEMIR) 1 UNITS/0.01ML SC SCH (21:00)
[2019-01-06] MEDS: ROSUVASTATIN 10 MG TAB (CRESTOR) PO SCH (22:19)
[2019-01-06] MEDS: traZODone 100 MG TAB PO SCH (22:20)
[2019-01-06] MEDS: CYCLOBENZAPRINE 5MG TABLET PO SCH (22:20)
--- NOTE | 2019-01-06 22:38 | REPVR ---
EXAM: MR Lumbar Spine Without Contrast. EXAM DATE/TIME: 01/06/2019 10:01 PM CLINICAL HISTORY: 63 years old, female; Signs and symptoms; Patient HX: Dizziness and weakness; Additional info: Le weakness, back pain h/o lumbar surgery -no iv contrast TECHNIQUE: Imaging protocol: Multiplanar magnetic resonance images of the lumbar spine without intravenous contrast. COMPARISON: No relevant prior studies available. FINDINGS: Vertebrae: Small hemangioma adjacent to the inferior endplate at L3. Spinal cord: Normal signal. No cord compression. L1-L2: No significant disc disease. No significant spinal stenosis. L2-L3: No significant disc disease. No significant spinal stenosis. L3-L4: There is a mild central spinal stenosis at L3-4 secondary to diffuse annular bulging, thickened ligamentum flavum and facet joint arthropathy. No lateral recess or foraminal stenosis. L4-L5: Diffusely bulging annulus at L4-5 without spinal stenosis. Bilateral facet joint arthropathy. No lateral recess or foraminal stenosis. L5-S1: No significant disc disease. No significant spinal stenosis. Sacrum/coccyx: Diffusely bulging annulus at L5-S1 with a left paracentral posterior disc protrusion mildly compressing the left S1 nerve root after it exits from the thecal sac. Bilateral facet arthropathy. No lateral recess or foraminal stenosis. Other bones/joints: Mottled decreased marrow space signal consistent with chronic anemia or other myeloproliferative abnormality. Soft tissues: Atrophy of the paraspinal muscles. IMPRESSION: 1. Mottled decreased marrow space signal consistent with chronic anemia or other myeloproliferative abnormality. 2. Diffusely bulging annulus at L5-S1 with a left paracentral posterior disc protrusion mildly compressing the left S1 nerve root after it exits from the thecal sac. Bilateral facet arthropathy. No lateral recess or foraminal stenosis. 3. Mild central spinal stenosis L3-4. Electronically signed by: Hardy Iraheta On 01/06/2019 22:38:34 PM
--- NOTE | 2019-01-06 22:44 | REPVR ---
EXAM: MR Head Without Contrast EXAM DATE/TIME: 01/06/2019 10:01 PM CLINICAL HISTORY: 63 years old, female; Signs and symptoms; Weakness, facial; Patient HX: Dizziness and weakness; Additional info: Dizziness-no iv contrast TECHNIQUE: Imaging protocol: MR of the head without contrast. COMPARISON: CT Head without contrast 01/06/2019 6:07 AM FINDINGS: Brain: Multiple foci of T2 lengthening are demonstrated in the subcortical, periventricular and centrum semiovale white matter consistent with age-related small vessel gliosis. Minimal cerebral atrophy. Lacunar infarct left anterior periventricular white matter. Ventricles: Benign calcifications in the occipital horn of the right lateral ventricle likely related to prior intraventricular hemorrhage. Tract from prior intraventricular shunt demonstrated in the left anterior parietal lobe extending to the anterior horn of the left lateral ventricle. Bones/joints: Unremarkable. Soft tissues: Normal. Sinuses: Normal as visualized. No acute sinusitis. Mastoid air cells: Normal as visualized. No mastoid effusion. Orbits: Unremarkable. IMPRESSION: Multiple foci of T2 lengthening are demonstrated in the subcortical, periventricular and centrum semiovale white matter consistent with age-related small vessel gliosis. Calcifications in the right occipital horn likely related to prior intraventricular hemorrhage. Electronically signed by: Hardy Iraheta On 01/06/2019 22:44:21 PM
--- NOTE | 2019-01-06 22:47 | REPVR ---
EXAM: MR Angiogram Head Without Contrast, Arteries EXAM DATE/TIME: 01/06/2019 10:01 PM CLINICAL HISTORY: 63 years old, female; Signs and symptoms; Patient HX: Dizziness and weakness; Additional info: Dizziness-no contrast TECHNIQUE: Imaging protocol: MR angiogram head without contrast. Exam focused on the arteries. 3D rendering: MIP reconstructed images were created and reviewed. COMPARISON: CT Head without contrast 01/06/2019 6:07 AM FINDINGS: Right internal carotid artery: Unremarkable. Intracranial segment is patent with no significant stenosis. No aneurysm. Right anterior cerebral artery: Unremarkable. No occlusion or significant stenosis. No aneurysm. Right middle cerebral artery: Unremarkable. No occlusion or significant stenosis. No aneurysm. Right posterior cerebral artery: Unremarkable. No occlusion or significant stenosis. No aneurysm. Right vertebral artery: Unremarkable. No occlusion or significant stenosis. No aneurysm. Left internal carotid artery: Unremarkable. Intracranial segment is patent with no significant stenosis. No aneurysm. Left anterior cerebral artery: Unremarkable. No occlusion or significant stenosis. No aneurysm. Left middle cerebral artery: Unremarkable. No occlusion or significant stenosis. No aneurysm. Left posterior cerebral artery: Persistent origin of the left posterior cerebral artery. Left vertebral artery: Unremarkable. No occlusion or significant stenosis. No aneurysm. Basilar artery: Unremarkable. No occlusion or significant stenosis. No aneurysm. IMPRESSION: No acute findings. Electronically signed by: Hardy Iraheta On 01/06/2019 22:46:59 PM
[2019-01-07] VITALS: BP 117/79
[2019-01-07] MEDS: diazePAM 5 MG TAB PO PRN ×2 (00:48→20:33)
[2019-01-07 04:00] VITALS: BP 96/62
[2019-01-07 05:25] LABS: HEMATOCRIT 30.6 % (36.0-47.0); MEAN CORPUSCULAR HEMOGLOBIN 33.7 pg (27.0-33.0); MEAN CORPUSCULAR HGB CONC 32.7 g/dl (32.0-36.5); PLATELET COUNT, AUTOMATED 110 10^3/uL (150-450); RED BLOOD COUNT 2.97 10^6/uL (4.00-5.40); WHITE BLOOD COUNT 4.9 10^3/uL (4.0-10.0)
[2019-01-07 05:52] LABS: ALBUMIN 3.3 GM/DL (3.2-5.2); BILIRUBIN,TOTAL 0.3 MG/DL (0.2-1.0); CALCIUM LEVEL 9.2 MG/DL (8.8-10.2); CREATININE FOR GFR 4.78 MG/DL (0.55-1.30); GLOMERULAR FILTRATION RATE 9.8 (>45); POTASSIUM SERUM 4.5 MEQ/L (3.5-5.1); TOTAL PROTEIN 6.9 GM/DL (6.4-8.2)
[2019-01-07] MEDS: LEVOTHYROXINE 75MCG TABLET (0.075MG) PO SCH (06:07)
[2019-01-07 08:00] VITALS: BP 122/79
[2019-01-07] MEDS: ASPIRIN 325 MG TAB PO SCH (08:34)
[2019-01-07] MEDS: OMEPRAZOLE 20 MG CAP PO SCH (08:35)
[2019-01-07] MEDS: HumaLOG INSULIN (NovoLOG) PER UNIT SC SCH ×4 (08:35→20:29)
[2019-01-07] MEDS: METOPROLOL TART 12.5 MG PER 1/2 TAB PO SCH ×2 (08:35→20:33)
[2019-01-07] MEDS ORDERED: CINACALCET 30 MG TAB (SENSIPAR) PO SCH (09:00)
--- NOTE | 2019-01-07 11:24 | IPNPDOC ---
Subjective Date Seen The patient was seen on 01/07/19. Subjective Chief Complaint/HPI Pt this morning reports resolution of her dizziness that she c/o upon admission. She has ambulated around her room without difficulty. She feels quite steady on her feet. General: Denies: Fatigue Constitutional: Denies: Chills, Fever ENT: Denies: Head Aches Pulmonary: Denies: Dyspnea, Cough Cardiovascular: Denies: Chest Pain, Palpitations Gastrointestinal: Denies: Nausea, Vomiting, Diarrhea Musculoskeletal: Denies: Neck Pain Neurological: Denies: Weakness Psych: Reports: Mood Normal Objective Physical Examination General Exam: Positive: Alert, Cooperative, No Acute Distress ENT Exam: Positive: Mucous membr. moist/pink Chest Exam: Positive: Clear to auscultation, Normal air movement Heart Exam: Positive: Irregular Rhythm, Murmurs Abdomen Exam: Positive: Normal bowel sounds, Soft; Negative: Tenderness Extremity Exam: Negative: Edema Neuro Exam: Positive: Normal Speech Psych Exam: Positive: Mental status NL, Mood NL Assessment /Plan Problems (1) Lightheadedness Status: Chronic Problem Text: as per PCP Dr. Nieves-a chronic recurrent problem largely secondary to orthostatic hypotension (actually orthostatic on admission) exacerbated by fluid shifts 2 HD, peripheral neuropathy favor behavioral control c compression +/- mido MRI/MRA brain P appreciate Neuro input (2) Atrial fibrillation with rapid ventricular response Status: Acute Problem Text: Pt declines anticoagulation, rate on admission was 115, has been more consistently about 100 since admission, Lopressor 12.5 mg BID, will increase to 25 mg po BID for improved rate control. no AC 2 ho [id number] Cards considering Watchman Monitor. (3) ESRD (end stage renal disease) on dialysis Onset Date: 07/14/2014 Status: Chronic Response to Treatment: Stable Problem Specific Plan: Consult Specialist, Monitor Clinically Problem Text: Neph consulted for mgmt. (4) Hyperkalemia Status: Acute Response to Treatment: Improving Problem Specific Plan: Monitor Clinically Problem Text: Mgmt with dialysis (5) Diabetes mellitus type 2 with complications Status: Chronic Response to Treatment: Stable Problem Text: Cont SSI, Levemir. (6) PRABHJOT (obstructive sleep apnea) Status: Chronic Response to Treatment: Stable Problem Specific Plan: Monitor Clinically Problem Text: declines CPAP. Plan/VTE VTE Prophylaxis Ordered?: No VS, I&O, 24H, Fishbone Vital Signs/I&O Vital Signs Date Time Temp Pulse Resp B/P (MAP) Pulse Ox O2 Delivery O2 Flow Rate FiO2 01/07/19 08:50 98.0 01/07/19 08:35 123/83 01/07/19 08:00 100 18 97 01/06/19 09:34 Room Air I&O- Last 24 Hours up to 6 AM 01/07/19 06:00 Intake Total 520 ml Output Total 1500 ml Balance -980 ml Laboratory Data 24H LABS Laboratory Tests 2 01/06/19 15:12: Bedside Glucose (Misc Panel) 108 01/06/19 18:01: Bedside Glucose (Misc Panel) 150H 01/06/19 20:52: Bedside Glucose (Misc Panel) 127H 01/07/19 05:13: Nucleated Red Blood Cells % (auto) 0.0, Anion Gap 8, Glomerular Filtration Rate 9.8L, Blood Urea Nitrogen 25H, Creatinine 4.78H, Sodium Level 136, Potassium Level 4.5, Chloride Level 100, Carbon Dioxide Level 28, Calcium Level 9.2, Aspartate Amino Transf (AST/SGOT) 7, Alanine Aminotransferase (ALT/SGPT) 22, Alk hanna Phosphatase 148H, Total Bilirubin 0.3, Total Protein 6.9, Albumin 3.3, Albumin/Globulin Ratio 0.92L 01/07/19 11:03: Bedside Glucose (Misc Panel) 128H CBC/BMP Laboratory Tests 01/07/19 05:13 Red Blood Count 2.97 L, Mean Corpuscular Volume 103.0 H, Mean Corpuscular Hemoglobin 33.7 H, Mean Corpuscular Hemoglobin Concent 32.7, Red Cell Distribution Width 13.8, Calcium Level 9.2, Aspartate Amino Transf (AST/SGOT) 7, Alanine Aminotransferase (ALT/SGPT) 22, Alkaline Phosphatase 148 H, Total Bilirubin 0.3, Total Protein 6.9, Albumin 3.3 MAMADOU THOMAS PA-C Jan 07, 2019 11:24 Jaret Dowling M.D. Jan 07, 2019 17:02
[2019-01-07 12:00] VITALS: BP 115/82
[2019-01-07] MEDS: (RENVELA) SEVELAMER **CARBONate** 800 MG TAB PO SCH ×2 (12:17→17:13)
--- NOTE | 2019-01-07 13:10 | ECGEPIP ---
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
--- NOTE | 2019-01-07 13:40 | CR ---
DATE OF CONSULTATION: 01/06/2019 REFERRING PHYSICIAN: Dr. Conchita Cobos REASON FOR CONSULTATION: Dizziness and falls. HISTORY OF PRESENT ILLNESS: Caro Carnes is a 63-year-old woman with history of atrial fibrillation who was on Coumadin in the past, developed intracerebral hemorrhage in 2007 from Coumadin use and her Coumadin was stopped. She also has a history of multifactorial gait difficulty, peripheral neuropathy, mild cognitive impairment, who presented to [facility] due to dizziness for last couple of months. It worsened over last 2 weeks. She fell 2 weeks ago because of her dizziness. She bruised her chest wall. Her legs feel wobbly. She cannot focus. She describes her dizziness as lightheadedness. There is no spinning sensation. She has a history of diabetes which likely has improved with weight loss. She had urinary tract infection a month ago. She denies any seizures, dysphagia, dysarthria, diplopia, urinary incontinence, neck pain, back pain or headaches. She has chronic intermittent back pain and had two back surgeries. Her back pain currently seems under control. PAST MEDICAL HISTORY Atrial fibrillation/flutter. Intracerebral hemorrhage in 2007. Type 2 diabetes with nephropathy and neuropathy. Hypothyroidism. End-stage renal disease on hemodialysis since 2010. Hypertension. Sleep apnea. Chronic obstructive pulmonary disease (COPD). Anemia of chronic disease. Obesity. Fatty liver. Anxiety. Kidney stones. 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 Breast biopsy. Colonoscopy. Hysterectomy. Ventriculostomy for ICH and ventricular hemorrhage. AV fistula. HOME MEDICATIONS: - insulin Lantus - Nephro-Mirella - vitamin D2 - Renagel 800 mg t.i.d. - aspirin 325 mg p.o. daily - calcitriol - Sensipar 30 mg once a week - levothyroxine 75 mcg p.o. daily - metoprolol 25 mg p.o. b.i.d. - trazodone 100 mg p.o. q.h.s. - Lovaza 1 gram p.o. b.i.d., 2 capsules each time - omeprazole - Zofran - Crestor - Senokot ALLERGIES: 1. GATIFLOXACIN. 2. TEQUIN. 3. AZITHROMYCIN. SOCIAL HISTORY: She quit smoking many years ago. She is two children. She denies alcohol or illicit drugs. FAMILY HISTORY: Mother had stroke. She has two children. REVIEW OF SYSTEMS: All systems were reviewed and found to be noncontributory except as mentioned in the history present illness. PHYSICAL EXAMINATION: Vital signs are stable. She is afebrile. Heart irregularly irregular. Lungs clear to auscultation. No pedal edema. No musculoskeletal abnormalities. No rash. No signs of meningeal irritation. No tremor. No dysmetria. The patient is awake, alert, oriented to place, person and time. Normal speech comprehension and repetition. Extraocular muscles are intact. No facial weakness and uvula are midline. 5/5 strength in all four extremities. Deep tendon flexes are 1+ in arms and absent in legs. She has decreased cold pinprick vibration sensation in her feet. Her gait is unsteady. DIAGNOSTIC STUDIES: CT scan of head did not show any acute disease. ASSESSMENT: 1. Multifactorial gait difficulty. 2. Diabetic peripheral neuropathy. 3. Rule out orthostatic hypotension and diabetic small fiber/autonomic neuropathy. 4. There is concern for cerebrovascular disease due to her history of atrial fibrillation, cerebral hemorrhage from Coumadin and patient only takes aspirin. PLAN: 1. MRI and MRA of brain. 2. Continue aspirin 325 mg p.o. daily. 3. Physical and occupational therapy. 4. Check her orthostatic blood pressure and pulse.
[2019-01-07 16:00] VITALS: BP 127/81
--- NOTE | 2019-01-07 17:50 | IPN ---
DATE:01/07/2019 Ms. Carnes is seen this morning on her bedside. She is sitting in the chair at the time of my visit. She reports feeling better and her dizziness has improved. She denies any nausea, vomiting, dyspnea or chest pain. She was dialyzed yesterday, which she tolerated well. PHYSICAL EXAMINATION: Temperature 98.0 degrees Fahrenheit, heart rate 87 per minute and respiratory rate 20 per minute. Blood pressure 115/82 mmHg and oxygen saturation 97% on room air. Head is atraumatic. Neck is supple and without jugular venous distention (JVD) or thyroid enlargement. Heart: Sounds are irregular in rhythm. Lungs: Clear to auscultation bilaterally. Abdomen: Soft and nontender. Bowel sounds are normal. Extremities have no cyanosis or clubbing. Neurologically she is awake, alert and at her baseline mentation. Today's labs show WBC count 4.9, hemoglobin 10.0, hematocrit 30.6, platelets 110. Sodium 136, potassium 4.5, CO2 of 28, BUN 25 and creatinine 4.78. Calcium level 9.2. She had MRI and MRA of her brain done yesterday, which did not show any acute abnormality. PROBLEMS: 1. End-stage renal disease. The patient was dialyzed yesterday, and she will be scheduled for next hemodialysis tomorrow. Her volume status is well compensated. 2. Dizziness. Her symptoms are improving. All imaging studies have been negative so far for any acute stroke. Blood pressure is reasonably well controlled. 3. Atrial fibrillation. This is chronic and unchanged. Her ventricular rate is reasonably well controlled. She is not considered a suitable candidate for anticoagulation due to prior history of intracranial bleed. She also has history of falls at home, which increases her risk for complications. 4. Anemia. Anemia is stable at this point and does not need any urgent intervention.
[2019-01-07] MEDS: LEVEMIR (INSULIN DETEMIR) 1 UNITS/0.01ML SC SCH (20:29)
[2019-01-07] MEDS: ROSUVASTATIN 10 MG TAB (CRESTOR) PO SCH (20:33)
[2019-01-07] MEDS: CYCLOBENZAPRINE 5MG TABLET PO SCH (20:33)
[2019-01-07] MEDS: traZODone 100 MG TAB PO SCH (20:33)
[2019-01-07 22:00] VITALS: BP 124/79
[2019-01-08 05:56] LABS: BASO % 0.7 % (0.0-1.0); HEMOGLOBIN 9.9 g/dl (12.0-15.5); LYMPH # 1.2 10^3/uL (1.5-4.5); LYMPH % 19.7 % (24.0-44.0); MEAN CORPUSCULAR VOLUME 103.1 fl (80.0-96.0); MONO # 0.7 10^3/uL (0.0-0.8); MONO % 10.9 % (0.0-5.0); NEUTROPHILS # 4.2 10^3/uL (1.8-7.7); NEUTROPHILS % 68.5 % (36.0-66.0); PLATELET COUNT, AUTOMATED 106 10^3/uL (150-450); RED BLOOD COUNT 2.91 10^6/uL (4.00-5.40); WHITE BLOOD COUNT 6.2 10^3/uL (4.0-10.0)
[2019-01-08 06:00] VITALS: BP 124/80
[2019-01-08] MEDS: ASPIRIN 325 MG TAB PO SCH (06:07)
[2019-01-08] MEDS: LEVOTHYROXINE 75MCG TABLET (0.075MG) PO SCH (06:07)
[2019-01-08] MEDS: OMEPRAZOLE 20 MG CAP PO SCH (06:07)
[2019-01-08] MEDS: (RENVELA) SEVELAMER **CARBONate** 800 MG TAB PO SCH ×3 (06:08→18:26)
[2019-01-08] MEDS: ACETAMINOPHEN TAB 650MG DOSE (2X325MG) PO PRN (06:10)
[2019-01-08 06:27] LABS: TOTAL PROTEIN 6.7 GM/DL (6.4-8.2)
[2019-01-08 07:06] LABS: ALBUMIN 3.5 GM/DL (3.2-5.2); BILIRUBIN,TOTAL 0.3 MG/DL (0.2-1.0); CALCIUM LEVEL 8.8 MG/DL (8.8-10.2); CREATININE FOR GFR 6.43 MG/DL (0.55-1.30); POTASSIUM SERUM 4.9 MEQ/L (3.5-5.1); TOTAL PROTEIN 7.1 GM/DL (6.4-8.2)
[2019-01-08] MEDS: HumaLOG INSULIN (NovoLOG) PER UNIT SC SCH ×4 (07:10→21:00)
[2019-01-08] MEDS: METOPROLOL TART 12.5 MG PER 1/2 TAB PO SCH (09:00)
[2019-01-08] MEDS: CALCITRIOL 0.25 MCG CAP (S0169) PO SCH (15:04)
--- NOTE | 2019-01-08 17:32 | IPNPDOC ---
Subjective Date Seen The patient was seen on 01/08/19. Subjective Chief Complaint/HPI still a bit dizzy. Constitutional: Denies: Chills ENT: Denies: Head Aches Pulmonary: Denies: Dyspnea, Cough Cardiovascular: Denies: Chest Pain, Palpitations Gastrointestinal: Denies: Nausea, Vomiting Hematologic: Denies: Bruising Psych: Reports: Mood Normal Objective Physical Examination General Exam: Positive: Alert, Cooperative, No Acute Distress ENT Exam: Positive: Mucous membr. moist/pink Chest Exam: Positive: Clear to auscultation, Normal air movement Heart Exam: Positive: Irregular Rhythm, Murmurs Abdomen Exam: Positive: Normal bowel sounds, Soft; Negative: Tenderness Extremity Exam: Negative: Edema Neuro Exam: Positive: Normal Speech Psych Exam: Positive: Mental status NL, Mood NL Assessment /Plan Problems (1) Lightheadedness Status: Chronic Problem Text: 01/08: anticipate that improving ventricular response may help this symptom. as per PCP Dr. Nieves-dawson chronic recurrent problem largely secondary to orthostatic hypotension (actually orthostatic on admission) exacerbated by fluid shifts 2 HD, peripheral neuropathy favor behavioral control c compression +/- mido MRI/MRA brain P appreciate Neuro input (2) Atrial fibrillation with rapid ventricular response Status: Acute Problem Text: 01/08: due to hx of intracranial bleeding patient is viewed as high risk for anticoag. lopressor was not increased yesterday. dose changed. hopefully with improved rate control, her well-being will improve. Pt declines anticoagulation, rate on admission was 115, has been more consistently about 100 since admission, Lopressor 12.5 mg BID, will increase to 25 mg po BID for improved rate control. no AC 2 ho [id number] Cards considering Watchman Monitor. (3) ESRD (end stage renal disease) on dialysis Onset Date: 07/14/2014 Status: Chronic Response to Treatment: Stable Problem Specific Plan: Consult Specialist, Monitor Clinically Problem Text: Neph consulted for mgmt. (4) Hyperkalemia Status: Acute Response to Treatment: Improving Problem Specific Plan: Monitor Clinically Problem Text: Mgmt with dialysis (5) Diabetes mellitus type 2 with complications Status: Chronic Response to Treatment: Stable Problem Text: Cont SSI, Levemir. (6) PRABHJOT (obstructive sleep apnea) Status: Chronic Response to Treatment: Stable Problem Specific Plan: Monitor Clinically Problem Text: declines CPAP. Plan/VTE VTE Prophylaxis Ordered?: No VS, I&O, [facility]I&O Vital Signs Date Time Temp Pulse Resp B/P (MAP) Pulse Ox O2 Delivery O2 Flow Rate FiO2 01/08/19 06:00 97.6 115 20 124/80 (95) 94 01/06/19 09:34 Room Air I&O- Last 24 Hours up to 6 AM 01/08/19 06:00 Intake Total 1380 ml Output Total 200 ml Balance 1180 ml Laboratory Data 24H LABS Laboratory Tests 2 01/07/19 20:25: Bedside Glucose (Misc Panel) 107 01/08/19 05:30: Immature Granulocyte % (Auto) 0.2, White Blood Count 6.2, Red Blood Count 2.91L, Hemoglobin 9.9L, Hematocrit 30.0L, Mean Corpuscular Volume 103.1H, Mean Corpuscular Hemoglobin 34.0H, Mean Corpuscular Hemoglobin Concent 33.0, Red Cell Distribution Width 13.9, Platelet Count 106L, Neutrophils (%) (Auto) 68.5H, Lymphocytes (%) (Auto) 19.7L, Monocytes (%) (Auto) 10.9H, Eosinophils (%) (Auto) 0.0, Basophils (%) (Auto) 0.7, Neutrophils # (Auto) 4.2, Lymphocytes # (Auto) 1.2L, Monocytes # (Auto) 0.7, Eosinophils # (Auto) 0.0, Basophils # (Auto) 0.0, Nucleated Red Blood Cells % (auto) 0.0, Anion Gap 8, Glomerular Filtration Rate 7.0L, Blood Urea Nitrogen 47#H, Creatinine 6.43H, Sodium Level 135L, Potassium Level 4.9, Chloride Level 100, Carbon Dioxide Level 27, Calcium Level 8.8, Asp artate Amino Transf (AST/SGOT) 10, Alanine Aminotransferase (ALT/SGPT) 19, Alkaline Phosphatase 152H, Total Bilirubin 0.3, Total Protein 7.1, Albumin 3.5, Total Protein (PEP) 6.7, Albumin/Globulin Ratio 0.97L 01/08/19 15:00: Bedside Glucose (Misc Panel) 78L 01/08/19 16:30: Bedside Glucose (Misc Panel) 129H CBC/BMP Laboratory Tests 01/08/19 05:30 Red Blood Count 2.91 L, Mean Corpuscular Volume 103.1 H, Mean Corpuscular Hemoglobin 34.0 H, Mean Corpuscular Hemoglobin Concent 33.0, Red Cell Distribution Width 13.9, Neutrophils (%) (Auto) 68.5 H, Lymphocytes (%) (Auto) 19.7 L, Monocytes (%) (Auto) 10.9 H, Eosinophils (%) (Auto) 0.0, Basophils (%) (Auto) 0.7, Neutrophils # (Auto) 4.2, Lymphocytes # (Auto) 1.2 L, Monocytes # (Auto) 0.7, Eosinophils # (Auto) 0.0, Basophils # (Auto) 0.0, Calcium Level 8.8, Aspartate Amino Transf (AST/SGOT) 10, Alanine Aminotransferase (ALT/SGPT) 19, Alkaline Phosphatase 152 H, Total Bilirubin 0.3, Total Protein 7.1, Albumin 3.5 [place] Burch MD Jan 08, 2019 17:32
[2019-01-08] MEDS: CYCLOBENZAPRINE 5MG TABLET PO SCH (21:33)
[2019-01-08] MEDS: ROSUVASTATIN 10 MG TAB (CRESTOR) PO SCH (21:33)
[2019-01-08] MEDS: traZODone 100 MG TAB PO SCH (21:33)
[2019-01-08] MEDS: LEVEMIR (INSULIN DETEMIR) 1 UNITS/0.01ML SC SCH (21:34)
[2019-01-08] MEDS: METOPROLOL TART 25 MG TABLET PO SCH (21:34)
[2019-01-08 22:00] VITALS: BP 123/81
[2019-01-08] MEDS ORDERED: DARBEPOETIN 100 MCG/0.5 ML *DIALYSIS* SYRINGE (J0882) IV SCH (22:30)
[2019-01-09] MEDS: ACETAMINOPHEN TAB 650MG DOSE (2X325MG) PO PRN (00:15)
[2019-01-09] MEDS: LEVOTHYROXINE 75MCG TABLET (0.075MG) PO SCH (05:34)
[2019-01-09 06:00] VITALS: BP 111/68
[2019-01-09] MEDS: HumaLOG INSULIN (NovoLOG) PER UNIT SC SCH ×4 (07:30→20:57)
[2019-01-09] MEDS: (RENVELA) SEVELAMER **CARBONate** 800 MG TAB PO SCH ×3 (08:15→17:12)
[2019-01-09] MEDS: OMEPRAZOLE 20 MG CAP PO SCH (08:15)
[2019-01-09] MEDS: ASPIRIN 325 MG TAB PO SCH (08:15)
[2019-01-09] MEDS: METOPROLOL TART 25 MG TABLET PO SCH (08:15)
[2019-01-09 14:00] VITALS: BP 123/78
--- NOTE | 2019-01-09 16:30 | IPNPDOC ---
Subjective Date Seen The patient was seen on 01/09/19. Subjective Chief Complaint/HPI was up walking today with minimal sense of unsteady/dizzy, not vertigo Constitutional: Denies: Chills ENT: Denies: Head Aches Pulmonary: Denies: Dyspnea, Cough Cardiovascular: Denies: Chest Pain, Orthopnea Gastrointestinal: Denies: Nausea, Abdominal Pain Genitourinary: Denies: Dysuria Endocrine: Denies: Polydipsia Neurological: Denies: Weakness, Change in speech Psych: Reports: Mood Normal Objective Physical Examination General Exam: Positive: Alert, Cooperative, No Acute Distress ENT Exam: Positive: Mucous membr. moist/pink Chest Exam: Positive: Clear to auscultation, Normal air movement Heart Exam: Positive: Irregular Rhythm (rate about 100 at rest.), Murmurs Abdomen Exam: Positive: Normal bowel sounds, Soft; Negative: Tenderness Extremity Exam: Negative: Edema Skin Exam: Positive: Nl turgor and temperature Neuro Exam: Positive: Normal Speech Psych Exam: Positive: Mental status NL, Mood NL Assessment /Plan Problems (1) Lightheadedness Status: Chronic Problem Text: 01/08: anticipate that improving ventricular response may help this symptom. as per PCP Dr. Nieves-dawson chronic recurrent problem largely secondary to orthostatic hypotension (actually orthostatic on admission) exacerbated by fluid shifts 2 HD, peripheral neuropathy favor behavioral control c compression +/- mido MRI/MRA brain P appreciate Neuro input (2) Atrial fibrillation with rapid ventricular response Status: Acute Problem Text: 01/09: rate is still not optimal, will increase metoprolol tart to 50 bid. hold parameters written since her pressure is a little "soft". If rate control is adequate then she should be able to go home tomorrow. 01/08: due to hx of intracranial bleeding patient is viewed as high risk for anticoag. lopressor was not increased yesterday. dose changed. hopefully with improved rate control, her well-being will improve. Pt declines anticoagulation, rate on admission was 115, has been more consistently about 100 since admission, Lopressor 12.5 mg BID, will increase to 25 mg po BID for improved rate control. no AC 2 ho [id number] Cards considering Watchman Monitor. (3) ESRD (end stage renal disease) on dialysis Onset Date: 07/14/2014 Status: Chronic Response to Treatment: Stable Problem Specific Plan: Consult Specialist, Monitor Clinically Problem Text: Neph consulted for mgmt. (4) Hyperkalemia Status: Acute Response to Treatment: Improving Problem Specific Plan: Monitor Clinically Problem Text: No labs today, will check today and ordered for tomorrow. increasing beta eddi may cause K to rise if dosing results in decrease in cardiac output but with improved rate control her stroke volume should be better so not expecting adverse effect on cardiac output. Mgmt with dialysis (5) Diabetes mellitus type 2 with complications Status: Chronic Response to Treatment: Stable Problem Text: Cont SSI, Levemir. (6) PRABHJOT (obstructive sleep apnea) Status: Chronic Response to Treatment: Stable Problem Specific Plan: Monitor Clinically Problem Text: declines CPAP. Plan/VTE VTE Prophylaxis Ordered?: No VS, I&O, 24H, Fishbone Vital Signs/I&O Vital Signs Date Time Temp Pulse Resp B/P (MAP) Pulse Ox O2 Delivery O2 Flow Rate FiO2 01/09/19 14:00 98.1 101 16 123/78 (93) 97 01/06/19 09:34 Room Air I&O- Last 24 Hours up to 6 AM 01/09/19 06:00 Intake Total 1210 ml Output Total 1500 ml Balance -290 ml Laboratory Data 24H LABS Laboratory Tests 2 01/08/19 16:30: Bedside Glucose (Misc Panel) 129H 01/08/19 21:14: Bedside Glucose (Misc Panel) 139H 01/09/19 06:16: Bedside Glucose (Misc Panel) 114 01/09/19 11:36: Bedside Glucose (Misc Panel) 124H [place] Burch MD Jan 09, 2019 16:30
--- NOTE | 2019-01-09 17:26 | IPN ---
DATE: 01/08/2019 SUBJECTIVE: Patient was seen and examined at the bedside today morning. Patient reports that her strength is getting better. She is getting physical therapy. She is due for hemodialysis today. She denies any active complaints. OBJECTIVE VITAL SIGNS: Temperature is 97.6 degrees Fahrenheit, blood pressure 124/80, pulse is 115, respiratory rate 20, saturating 94% on room air. INTAKE AND OUTPUT: There is no urine output recorded. Weight in the bed scale is not available. PHYSICAL EXAMINATION: GENERAL: Patient is awake, alert, oriented times three, sitting up in the bed in no apparent distress. HEAD AND NECK EXAM: Pupils are equally round and reactive to light. Mucous membranes are moist. Neck is supple. There is no jugular venous distention (JVD). CARDIOVASCULAR: S1, S2. Regular rate. No murmur, rub or gallop. No edema of the bilateral lower extremities. RESPIRATORY: Chest is clear to auscultation bilaterally. Bilateral equal air entry. No rales or rhonchi. ABDOMEN: Soft, obese. Positive bowel sounds. Nontender. No organomegaly. MUSCULOSKELETAL: No clubbing or cyanosis. Pulses are 2+. She has a left forearm atrioventricular (AV) fistula with positive thrill and bruit. 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 Power is 5/5 in all extremities. PSYCHIATRIC: Normal mood and affect. LABORATORY REVIEW: Complete blood count (CBC) showed a WBC of 6.2, hemoglobin is 9.9, platelets of 106. Basic metabolic panel (BMP) showed sodium 135, potassium 4.9, chloride 100, bicarbonate 27, BUN 47, creatinine is 6.4. CURRENT INPATIENT MEDICATIONS: Patient's medications were all reviewed by me. Metoprolol dose has been changed to 25 mg by mouth twice a day. No other change in the medications today as compared with yesterday. ASSESSMENT/PLAN: 1. End-stage renal disease on hemodialysis. Patient's regular dialysis days are Thursday, , Thursday. She will be dialyzed today according to her regular schedule. 2. Dizziness. Her symptoms are improving. Stroke workup was negative. She is getting physical therapy. Ultrafiltration goal will be only 1.5 liters today. 3. Atrial fibrillation. Patient still has tachycardia. Her metoprolol dose has been increased. She is not a candidate for anticoagulation because of history of intracranial bleed. 4. Anemia in end-stage renal disease. Hemoglobin is 9.9. I am going to start patient on Aranesp with dialysis.
[2019-01-09 17:30] LABS: CREATININE FOR GFR 5.35 MG/DL (0.55-1.30); GLOMERULAR FILTRATION RATE 8.6 (>45); POTASSIUM SERUM 4.5 MEQ/L (3.5-5.1)
[2019-01-09] MEDS: CYCLOBENZAPRINE 5MG TABLET PO SCH (20:56)
[2019-01-09] MEDS: ROSUVASTATIN 10 MG TAB (CRESTOR) PO SCH (20:56)
[2019-01-09] MEDS: traZODone 100 MG TAB PO SCH (20:56)
[2019-01-09] MEDS: LEVEMIR (INSULIN DETEMIR) 1 UNITS/0.01ML SC SCH (20:57)
[2019-01-09] MEDS: METOPROLOL TART 50 MG TAB PO SCH (21:00)
[2019-01-09 21:13] VITALS: BP 127/63
[2019-01-09 23:15] VITALS: BP 110/62
[2019-01-10] MEDS: diazePAM 5 MG TAB PO PRN (01:43)
[2019-01-10] MEDS: ACETAMINOPHEN TAB 650MG DOSE (2X325MG) PO PRN (01:43)
[2019-01-10] MEDS: LEVOTHYROXINE 75MCG TABLET (0.075MG) PO SCH (05:36)
[2019-01-10 05:50] VITALS: BP 118/89
[2019-01-10 05:54] LABS: CALCIUM LEVEL 8.9 MG/DL (8.8-10.2); CREATININE FOR GFR 6.48 MG/DL (0.55-1.30); GLOMERULAR FILTRATION RATE 6.9 (>45); POTASSIUM SERUM 4.9 MEQ/L (3.5-5.1)
[2019-01-10 08:05] VITALS: BP 118/89
[2019-01-10] MEDS: (RENVELA) SEVELAMER **CARBONate** 800 MG TAB PO SCH ×3 (08:05→18:15)
[2019-01-10] MEDS: ASPIRIN 325 MG TAB PO SCH (08:05)
[2019-01-10] MEDS: HumaLOG INSULIN (NovoLOG) PER UNIT SC SCH ×3 (08:05→18:15)
[2019-01-10] MEDS: METOPROLOL TART 50 MG TAB PO SCH (08:05)
[2019-01-10] MEDS: OMEPRAZOLE 20 MG CAP PO SCH (08:06)
[2019-01-10 09:30] LABS: VITAMIN B12 LEVEL 323 PG/ML (247-911)
--- NOTE | 2019-01-10 10:39 | IPN ---
DATE: 01/09/2019 SUBJECTIVE: The patient was seen and examined at the bedside today morning. She is afebrile, hemodynamically stable. She was dialyzed yesterday and 1.5 liters of fluid was removed. She reports that her strength is getting better. She has been walking in the hallway with the help of a walker and she is expecting to be discharged home today. OBJECTIVE: Vital Signs: Temperature is 98.1 degrees Fahrenheit, blood pressure 123/78, pulse is 101, respiratory rate of 16, and saturating 97% on room air. Intake and Output: Ultrafiltration with hemodialysis was 1.5 liters yesterday. Weight in the bed scale is not available. PHYSICAL EXAMINATION: General: The patient is awake, alert, oriented times three, sitting up in the bed, in no apparent distress. Head and Neck Exam: Mucous membranes are moist. Head is normocephalic, atraumatic. Neck is supple. There is no jugular venous distention (JVD). Cardiovascular: S1 and S2, regular rate. No murmur, rub or gallop. Respiratory: Chest is clear to auscultation bilaterally. Bilateral equal air entry. No rales or rhonchi. Abdomen: Soft, obese, positive bowel sounds, nontender. Musculoskeletal: No clubbing or cyanosis. Pulses are 2+. Left forearm AV fistula with thrill and bruit. DIRECTOR OF PLANT OPERATIONS: No focal deficit. Power is 5/5 in all extremities. Psych: Normal mood and affect. LAB REVIEW: CBC showed a WBC of 6.2, hemoglobin 9.9 and that is from yesterday. BMP done today showed sodium 139, potassium 4.5, chloride 102, bicarb 28, BUN 42, creatinine is 5.3. CURRENT INPATIENT MEDICATIONS: The patient's medications were all reviewed by me. Her metoprolol was changed to 50 mg by mouth twice a day. ASSESSMENT/PLAN: 1. End-stage renal disease on hemodialysis. The patient was dialyzed yesterday according to her Thursday, , Thursday schedule. Next hemodialysis will be on next coming Thursday, January 11, 2019. 2. Atrial fibrillation. The patient is still having heart rates in the 100s. Metoprolol dose was increased today morning. She is not a candidate of anticoagulation because of bleed in the past. 3. Anemia and end-stage renal disease. Hemoglobin is 9.9. If the patient is dialyzed, the next time she will get a dose of Aranesp, otherwise anemia will be managed as outpatient. 4. Secondary hyperparathyroidism. Continue current dose of calcitriol and Sensipar. 5. Dizziness and weakness. The patient is walking in the hallway with a walker and she reports that she has a walker at home as well. 6. Disposition. The patient is optimized from a nephrology standpoint to be discharged home.
[2019-01-10 14:00] VITALS: BP 124/88
--- NOTE | 2019-01-10 20:46 | IPN ---
DATE: 01/10/2019 SUBJECTIVE: The patient was seen and examined at the bedside today, morning. She is afebrile, hemodynamically stable. She denies any active complaints. I was told by the nursing staff that the patient slipped while sitting on her bed, and she fell down. That is why she could not be discharged yesterday. The patient otherwise reports that she is still walking with the help of a walker, and she is eager to be discharged home today. OBJECTIVE: VITAL SIGNS: Temperature is 97.5 degrees Fahrenheit, blood pressure 118/89, pulse is 93, respiratory rate of 18, saturating 98% on 2 liters via nasal cannula. INTAKE/OUTPUT: There is no urine output recorded. Weight on the bed scale is not available. PHYSICAL EXAMINATION: GENERAL: The patient is awake, alert, oriented times three, sitting up in the bed in no apparent distress. HEAD AND NECK EXAM: Head is Normocephalic, atraumatic. Mucous membranes are moist. Neck is supple. There is no jugular venous distention (JVD). CARDIOVASCULAR: S1, S2, regular rate. No murmur, rub or gallop. RESPIRATORY: Chest is clear to auscultation bilaterally. Bilateral equal air entry. No rales or rhonchi. ABDOMEN: Abdomen is soft, obese, positive bowel sounds, nontender. MUSCULOSKELETAL: No clubbing or cyanosis. Pulses are 2+. CENTRAL NERVOUS SYSTEM (SCOREKEEPER): No focal deficit. Power is 5/5 in all extremities. ARTERIOVENOUS (AV) ACCESS: The patient has a left forearm AV fistula with positive thrill and bruit. LAB REVIEW: CBC is from January 08, 2019. BMP done today, morning, showed sodium 139, potassium 4.9, chloride 103, bicarbonate 29, BUN 52, creatinine is 6.4. CURRENT INPATIENT MEDICATIONS: The patient's medications were all reviewed by me. Her metoprolol was changed to 50 mg by mouth twice a day yesterday. No other change in the medications today as compared with yesterday. ASSESSMENT AND PLAN: 1. End-stage renal disease, on hemodialysis. Patient's regular dialysis days are Thursday, , Thursday. If she is discharged today, she will be dialyzed tomorrow morning as an outpatient. 2. Atrial fibrillation. Heart rate is better controlled with metoprolol 50 mg by mouth twice a day. Blood pressure is acceptable. She is not a candidate for anticoagulation. 3. Secondary hyperparathyroidism. Continue current dose of calcitriol and Sensipar. 4. Anemia in end-stage renal disease. Hemoglobin is 9.9, which is optimal. The rest of anemia management will be done as an outpatient. DISPOSITION: The patient is optimized from a nephrology standpoint to be discharged home.
[2019-01-11 12:30] LABS: ALBUMIN % 60.7 % (55.8-66.1); ALPHA-1-GLOBULIN % 4.5 % (2.9-4.9); ALPHA-2-GLOBULINS % 12.7 % (7.1-11.8); BETA-1-GLOBULINS % 5.4 % (4.7-7.2); BETA-2-GLOBULINS % 4.9 % (3.2-6.5); GAMMA GLOBULIN % 11.8 % (11.1-18.8)
[2019-01-11 12:31] LABS: ALBUMIN 4.07 GM/DL (3.29-5.55); ALPHA-2-GLOBULINS 0.85 GM/DL (0.42-0.99); BETA-1-GLOBULINS 0.36 GM/DL (0.28-0.60); BETA-2-GLOBULINS 0.33 GM/DL (0.19-0.55); GAMMA GLOBULINS 0.79 GM/DL (0.65-1.58)
[2019-01-16] MEDS ORDERED: VITAMIN D 50,000 UNITS CAPSULE (ERGOCALCIFEROL 1.25MG) PO SCH (09:00)
== END 2019-01-10 20:30 | disposition home or self-care (01) | DRG 73 ==
LOC: M ED 05:49 → EDBD 05:49 → M ED INP 08:54 → M PCU 14:27 → M MS5PR 01-07 16:00
PROVIDERS: ADMIT General Practice; ATTEND Family Medicine
PROC: 5A1D70Z Performance of Urinary Filtration, Intermittent, Less than 6 Hours Per Day (ICD-10-PCS; principal; 2019-01-06)
DX: E11.42 Type 2 diabetes mellitus with diabetic polyneuropathy (principal); N18.6 End stage renal disease; I12.0 Hypertensive chronic kidney disease with stage 5 chronic kidney disease or end stage renal disease; K86.0 Alcohol-induced chronic pancreatitis; I50.32 Chronic diastolic (congestive) heart failure; N25.81 Secondary hyperparathyroidism of renal origin; E11.43 Type 2 diabetes mellitus with diabetic autonomic (poly)neuropathy; I48.2 Chronic atrial fibrillation; R26.89 Other abnormalities of gait and mobility; I95.1 Orthostatic hypotension; G31.84 Mild cognitive impairment of uncertain or unknown etiology; E11.22 Type 2 diabetes mellitus with diabetic chronic kidney disease; R42 Dizziness and giddiness; E11.21 Type 2 diabetes mellitus with diabetic nephropathy; E87.5 Hyperkalemia; E03.9 Hypothyroidism, unspecified; E78.5 Hyperlipidemia, unspecified; G47.33 Obstructive sleep apnea (adult) (pediatric); E66.9 Obesity, unspecified; D63.1 Anemia in chronic kidney disease; J44.9 Chronic obstructive pulmonary disease, unspecified; F41.9 Anxiety disorder, unspecified; I27.20 Pulmonary hypertension, unspecified; I36.1 Nonrheumatic tricuspid (valve) insufficiency; J38.3 Other diseases of vocal cords; Z99.2 Dependence on renal dialysis; Z79.4 Long term (current) use of insulin; Z79.82 Long term (current) use of aspirin; Z79.899 Other long term (current) drug therapy; Z88.1 Allergy status to other antibiotic agents; Z88.8 Allergy status to other drugs, medicaments and biological substances; Z87.442 Personal history of urinary calculi; Z68.31 Body mass index [BMI] 31.0-31.9, adult

== ENCOUNTER 2019-01-26 13:52 | Emergency (ER) | payer MEDICARE, MEDICAID ==
[~2019-01-26] VITALS: Ht 154.9 cm; Wt 78.6 kg
[~2019-01-26 13:52] MED LIST changes: +HYDR-4571 PO; +MECL-68 PO; +METO25TA4 PO; +MIRC50IN IVP; +SENN8.6T28 PO; -STIO1AER IN; +STIO1AER INH; -[UNRECOGNIZED DRUG - CODE] IVP
--- NOTE | 2019-01-26 20:29 | REP ---
Clinical: Trauma with pain and swelling. Technique: AP, lateral, bilateral oblique and sunrise views of the right knee. Findings: Generalized age-related osteopenia and degenerative changes are appreciated soft tissue swelling and effusion noted. While no definite acute fractures appreciated occult injury is suspected including possible patellar injury. Impression: Swelling and effusion. Suspected occult injury possible patellar injury. Electronically Signed by Geovanni Scanlon MD 01/26/2019 08:20 P
[2019-01-26] MEDS ORDERED: ACETAMINOPHEN 325 MG TAB PO ONE (20:45)
[2019-01-26 22:03] VITALS: BP 107/59
--- NOTE | 2019-01-26 22:10 | REPVR ---
EXAM: CT Right Lower Extremity Without Contrast, Knee EXAM DATE/TIME: 01/26/2019 9:08 PM CLINICAL HISTORY: 63 years old, female; Pain; Knee; Right; Additional info: Occult injury XR, effusion TECHNIQUE: Imaging protocol: CT of the Right lower extremity without contrast was performed. Exam focused on the knee. Coronal and sagittal reformatted images were created and reviewed. Radiation optimization: All CT scans at this facility use at least one of these dose optimization techniques: automated exposure control; mA and/or kV adjustment per patient size (includes targeted exams where dose is matched to clinical indication); or iterative reconstruction. COMPARISON: CR Knee, complete 01/26/2019 8:02 PM FINDINGS: Bones/joints: Knee joint effusion. Marked contour deformity in the posterior aspect of the lateral femoral condyle. This may be related to prior impaction injury. Mild lateral patellar tilt. Soft tissues: Mild subcutaneous edema about the knee joint. Vasculature: Mild atherosclerotic changes in the femoral popliteal arteries. IMPRESSION: 1. Knee joint effusion. 2. Marked contour deformity in the posterior aspect of the lateral femoral condyle. This may be related to prior impaction injury. 3. No acute fracture. Electronically signed by: Hardy Iraheta On 01/26/2019 22:10:30 PM
--- NOTE | 2019-01-31 11:41 | ED PDOC ---
Post-Departure Follow-Up dr ramirez and dr bass faxed formal report of right knee film for fu Araceli Palacio MD Jan 31, 2019 11:41
[2019-02-12] MEDS ORDERED: MECL-68 PO (07:50)
== END 2019-01-26 22:38 | disposition home or self-care (01) ==
LOC: M ED 13:52
DX: M25.461 Effusion, right knee (principal); I11.0 Hypertensive heart disease with heart failure; I50.9 Heart failure, unspecified; E78.5 Hyperlipidemia, unspecified; N18.5 Chronic kidney disease, stage 5; Z99.2 Dependence on renal dialysis; E55.9 Vitamin D deficiency, unspecified; J44.9 Chronic obstructive pulmonary disease, unspecified; Z87.891 Personal history of nicotine dependence; Z88.8 Allergy status to other drugs, medicaments and biological substances; Z79.899 Other long term (current) drug therapy; Z79.82 Long term (current) use of aspirin

== ENCOUNTER 2019-02-12 05:46 | Inpatient (IN) | payer MEDICARE, MEDICAID ==
[~2019-02-12] VITALS: Ht 154.9 cm; Wt 74.5 kg
[~2019-02-12 05:46] MED LIST changes: -MECL-68 PO; +MECL1TAB31 PO; +OMEP40CA97 PO; -TRAZ10TA PO; +TRAZ1TAB12 PO
[2019-02-12] MEDS ORDERED: TOPR25TA PO (06:08)
--- NOTE | 2019-02-12 06:28 | ECGEPIP ---
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
[2019-02-12] MEDS ORDERED: METOPROLOL 5 MG/5 ML VIAL IV STA ×2 (06:35→07:11)
[2019-02-12 06:40] LABS: BASO % 0.4 % (0.0-1.0); HEMATOCRIT 35.9 % (36.0-47.0); HEMOGLOBIN 11.1 g/dl (12.0-15.5); LYMPH # 1.1 10^3/uL (1.5-4.5); MEAN CORPUSCULAR HEMOGLOBIN 32.8 pg (27.0-33.0); MEAN CORPUSCULAR HGB CONC 30.9 g/dl (32.0-36.5); MEAN CORPUSCULAR VOLUME 106.2 fl (80.0-96.0); MONO # 0.6 10^3/uL (0.0-0.8); MONO % 8.5 % (0.0-5.0); NEUTROPHILS % 74.8 % (36.0-66.0); PLATELET COUNT, AUTOMATED 121 10^3/uL (150-450); RED BLOOD COUNT 3.38 10^6/uL (4.00-5.40); WHITE BLOOD COUNT 6.7 10^3/uL (4.0-10.0)
[2019-02-12] MEDS ORDERED: FUROSEMIDE 100 MG/10 ML VIAL (J1940) IV ONE (06:45)
[2019-02-12 06:54] LABS: BLOOD UREA NITROGEN 41 MG/DL (7-18); CALCIUM LEVEL 9.2 MG/DL (8.8-10.2); CARBON DIOXIDE LEVEL 29 MEQ/L (21-32); CHLORIDE LEVEL 102 MEQ/L (98-107); CREATININE FOR GFR 6.06 MG/DL (0.55-1.30); GLOMERULAR FILTRATION RATE 7.5 (>45); GLUCOSE, FASTING 105 MG/DL (70-100); POTASSIUM SERUM 5.6 MEQ/L (3.5-5.1); SODIUM LEVEL 139 MEQ/L (136-145)
[2019-02-12 07:29] LABS: CK-MB VALUE MASS < 1.0 NG/ML (<3.6); CPK CREATINE PHOSPHOKINASE 25 U/L (26-192); TROPONIN I < 0.02 NG/ML (< 0.10)
[2019-02-12] MEDS ORDERED: METOPROLOL SUCC *XL* 25MG TAB (TopROL *XL*) PO ONE (07:45)
[2019-02-12] MEDS ORDERED: DIAZ2TAB PO (07:50)
[2019-02-12] MEDS ORDERED: MECL1TAB31 PO (07:50)
[2019-02-12] MEDS ORDERED: HYDR-3713 PO (07:50)
[2019-02-12] MEDS ORDERED: METO1TAB87 PO (07:50)
[2019-02-12] MEDS ORDERED: LANTINJ4 SC (07:50)
[2019-02-12] MEDS ORDERED: MIRA3350 PO (07:50)
[2019-02-12] MEDS ORDERED: SODI200S PO (07:50)
[2019-02-12] MEDS ORDERED: METOPROLOL TART 50 MG TAB PO ONE (08:45)
[2019-02-12] MEDS ORDERED: METOPROLOL TART 25 MG TABLET PO ONE (08:45)
[2019-02-12] MEDS ORDERED: OMEPRAZOLE 20 MG CAP PO SCH (09:00)
[2019-02-12] MEDS ORDERED: ASPIRIN 325 MG TAB PO SCH (09:00)
[2019-02-12] MEDS ORDERED: LEVEMIR (INSULIN DETEMIR) 1 UNITS/0.01ML SC PRN (09:45)
[2019-02-12] MEDS ORDERED: SENNA 8.6 MG TAB (SENOKOT) PO PRN (09:45)
[2019-02-12] MEDS ORDERED: MIRALAX *UNIT DOSE* 17GM PACKET PO PRN (09:45)
[2019-02-12] MEDS ORDERED: MECLIZINE 25 MG TABLET PO PRN (09:45)
[2019-02-12] MEDS ORDERED: diazePAM 2 MG TAB PO PRN (09:45)
[2019-02-12] MEDS ORDERED: NORCO, ANEXSIA 5/325MG TABLET (HYDROcodone/ACETAMINOPHEN) PO PRN (09:45)
[2019-02-12] MEDS ORDERED: HEPARIN 1,000 UNITS/ML 10ML VIAL (FOR RADIOLOGY& DIALYSIS ONLY) IV ONE (10:15)
--- NOTE | 2019-02-12 10:31 | HPE ---
DATE OF ADMISSION: 02/12/2019 PRIMARY CARE PROVIDER: Dr. Arslan Cali at the [facility] clinic. CHIEF COMPLAINT: Atrial fibrillation with rapid ventricular response. HISTORY: Caro Carnes presented to the emergency room with shortness of breath. She was found to be in atrial fibrillation with rapid ventricular response. Atrial fibrillation at its onset 01/06/2019 when she was admitted for atrial fibrillation/flutter at that time, seems to have recurred. She is compliant with her medications. PAST MEDICAL HISTORY: Her past history shows: End stage renal disease for which she is on maintenance dialysis. 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 Type 2 diabetes. Diabetic nephropathy. Atrial fibrillation/flutter not on anticoagulant due to history of bleeding. She is managed by Dr. Pearl for this. History of intraventricular bleed related to warfarin 05/2018. Hypertensive heart disease. Diastolic congestive heart failure (CHF) with an echocardiogram 11/2016 showing normal ejection fraction. Chronic obstructive pulmonary disease (COPD) for which is followed by [employer], Dr. Shipman at [facility]. Anemia of chronic disease. Chronic anxiety. Obesity. Obstructive sleep apnea (PRABHJOT), intolerant of CPAP. She had a nuclear stress test at [facility] 11/2016 that showed no ischemia. Carotid ultrasound 01/2013 with no stenoses. Thyroid nodule with negative fine needle aspiration in the past. She has had memory lapses since the intraventricular cerebral bleed. Has chronic vocal cord dysfunction for which she is followed by ENT at [facility]. She has fatty liver. Arthritis with chronic back and neck pain. History of renal stones. MEDICATIONS: - Drisdol 50,000 units weekly - Renagel 800 mg three times a day - aspirin 325 mg daily - calcitriol 0.025 mcg three times weekly - Sensipar 30 mg weekly - levothyroxine 75 mg daily - Lantus insulin 10 units at bedtime - trazodone 100 mg at bedtime - omeprazole 40 mg daily - senna S as needed - Crestor 20 mg daily - hydrocodone/acetaminophen 5/325 daily - Valium 5 mg twice a day as needed - meclizine 25 mg three times a day as needed - Flexeril 5 mg daily - Kyra-Mirella - Kayexalate per instructions from dialysis based upon potassium levels - tiotropium/olodaterol inhaler two puffs daily - metoprolol 50 mg twice a day 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 Pearl of [facility]. ALLERGIES: 1. GATIFLOXACIN caused anaphylaxis. 2. TEQUIN caused anaphylaxis. 3. AZITHROMYCIN caused facial swelling and tingling and dyspnea. SURGICAL HISTORY: section times two. Lumbar discectomy in 1979 and 1990. Breast biopsy 04/2000. Hysterectomy 2002. Nasal cautery 2002. Ventriculostomy for intracerebral bleed 06/2008. FNA thyroid nodule 07/2013. Colonoscopy 03/2014. Dental extractions 12/2016. Ureteroscopy with left stent placement 06/2018, subsequent removal 07/2018. SOCIAL HISTORY: Quit smoking 15 years ago. Rare alcohol intake. She is retired. REVIEW OF SYSTEMS: She looks comfortable. No chest pain, palpitations. No bleeding, epistaxis. PHYSICAL EXAMINATION: Vital signs per flow sheet. Blood pressure 116/70. General appearance: She is resting comfortably. She is in a wheelchair being taken to dialysis upon my arrival to the ER. Pupils equal and reactive to light. Tympanic membranes and oropharynx benign. Neck no masses. Lungs clear. Heart rapid, irregular rate and rhythm, rate is 100 at the time of my exam. Abdomen soft, nontender, no masses. No peripheral edema. LABS: EKG showed atrial fibrillation with rate 130. CBC white count 6.7, hemoglobin 11.3, platelets 121. Sodium 139, potassium 5.6, BUN 41, creatinine 6.0, glucose 103. X-ray report is pending. IMPRESSION: 1. Rule out atrial fibrillation with rapid ventricular response. Patient will be admitted to a PCU bed. Edited 02/12/2019 @ [facility]
--- NOTE | 2019-02-12 14:25 | REP ---
PORTABLE CHEST: AP portable view of the chest is performed and compared to a prior study of 01/06/2019. There is mild cardiomegaly. There is pulmonary venous hypertension. There are mildly increased interstitial markings in the lung bases, which are stable. No new infiltrate is seen. There is mild calcification of the thoracic aorta. The mediastinal silhouette is unchanged. IMPRESSION: Stable exam. Mild cardiomegaly with vascular and interstitial prominence similar to prior exam. Electronically Signed by Scout King MD 02/13/2019 10:04 P
--- NOTE | 2019-02-12 15:29 | CR ---
DATE OF CONSULTATION: 02/12/2019 REQUESTING PHYSICIAN: Dr. Tanya Riddle CONSULTING PHYSICIAN: Dr. Guzman REASON FOR CONSULTATION: Management of end-stage renal disease, on hemodialysis. CHIEF COMPLAINT: The patient presented to the emergency room today with shortness of breath and fluttering of the heart. HISTORY OF PRESENT ILLNESS: Caro Carnes is a 63-year-old female with a past medical history of end-stage renal disease, on hemodialysis every Thursday, , Thursday, history of atrial fibrillation, on metoprolol. She reports that her metoprolol dose was recently being decreased because of dizziness and lightheadedness. She presented to the emergency room today morning with progressive shortness of breath. She was found to have atrial fibrillation with rapid ventricular rate. She was given intravenous (IV) and metoprolol. Further investigation showed that she was also in congestive heart failure, because today is her day of dialysis and a rapid ventricular rate pushed her into congestive heart failure. The patient was admitted under the hospitalist service. Nephrology service was called for further help in the management of congestive heart failure and end-stage renal disease. I had already arranged the patient's emergent hemodialysis to be done today in the morning, so I saw and examined the patient at the bedside today morning while she was already being dialyzed. The patient reports that she is feeling much better now after starting the dialysis and getting metoprolol. Her heart rate is in low 100s now. PAST MEDICAL HISTORY: 1. End-stage renal disease, on hemodialysis every Thursday, , Thursday. 2. History of vestibular neuritis and vertigo. 3. Diabetes mellitus, type 2, with complications including diabetic nephropathy diabetic neuropathy. 4. History of atrial fibrillation and atrial flutter. Not on anticoagulation because of bleeding in the past. 5. History intra intraventricular bleed secondary to anticoagulation in May 2018. 6. Chronic diastolic congestive heart failure. 7. History of chronic obstructive pulmonary disease (COPD). 8. Anemia and end-stage renal disease. 9. Chronic kidney disease. 10. Mineral bone disease. 11. Chronic anxiety. 12. Morbid obesity. 13. Obstructive sleep apnea. Does not wear continuous positive airway pressure (CPAP). 14. Chronic vocal cord dysfunction. 15. Fatty liver disease. 16. Arthritis PAST SURGICAL HISTORY: Status post left forearm AV fistula placement. ALLERGIES: The patient is allergic to QUINOLONES. FAMILY HISTORY: No significant family history of end-stage renal disease requiring hemodialysis. SOCIAL HISTORY: The patient lives at home. She denies any smoking, illicit drug abuse, or alcohol abuse. REVIEW OF SYSTEMS: CONSTITUTIONAL: She denies any fevers or chills. EYES: She denies any blurry vision, double vision. ENT: She denies any dysphagia, odynophagia. CARDIOVASCULAR: She reports racing of the heart and atrial fibrillation. RESPIRATORY: She does report shortness of breath on arrival. GASTROINTESTINAL: She denies any nausea or vomiting. GENITOURINARY: She denies any dysuria or hematuria. MUSCULOSKELETAL: She denies any muscle aches and pains. ENDOCRINE: She reports secondary hyperparathyroidism. PSYCHIATRIC: She denies any depression or anxiety. HEMATOLOGIC/ONCOLOGIC: She denies any easy bleeding or bruising. SKIN: She denies any rashes or ulcers. All other review of systems is negative. PHYSICAL EXAMINATION GENERAL: The patient is awake, alert, oriented times three, sitting up in the bed getting hemodialysis done. VITAL SIGNS: Temperature 98 degrees Fahrenheit, blood pressure 116/60, pulse is 100, respiratory rate of 18, saturating 96% on nasal cannula at 2 liters. HEAD AND NECK: Extraocular muscles intact. Pupils equally round and reactive to light. Mucous membranes are moist. Neck is supple. There is no jugular venous distention (JVD). CARDIOVASCULAR: S1, S2, irregularly irregular heart rate and tachycardia was noted. No edema of the bilateral lower extremities. RESPIRATORY: Mildly decreased breath sounds at the bases with crepitations at bases on deep inspiration. ABDOMEN: Soft, obese. Positive bowel sounds. Nontender. No organomegaly. MUSCULOSKELETAL: No clubbing or cyanosis. Pulses are 2+. CENTRAL NERVOUS SYSTEM: No focal deficit. Power is 5/5 in all extremities. LABORATORY REVIEW: CBC showed a WBC 6.7, hemoglobin 11.1, platelets of 121. BMP showed sodium 139, potassium of 5.6, chloride 102, bicarbonate 29, BUN 41, creatinine is 6, calcium 9.2. IMAGING STUDIES: A chest x-ray was done today morning. Official report is pending. X-ray shows pulmonary vascular congestion. CURRENT INPATIENT MEDICATIONS. The patient's medications include: - [place] as needed - aspirin 325 mg by mouth daily - calcitriol 0.25 mcg 1 Thursday, , Thursday - Sensipar 30 mg by mouth once a week - Flexeril 5 mg at bedtime - diazepam as needed for anxiety - Lasix 100 mg IV times one dose was given in the emergency room (ER). - He is on heparin subcutaneous. - insulin Levemir 10 units subcutaneous daily - levothyroxine 75 mcg by mouth daily - Metoprolol 5 mg IV times two doses was given, and she has been started on 25 mg by mouth every 6 hours. - She is on MiraLax as needed for constipation. - rosuvastatin 20 mg daily - senna tablet one tablet as needed - trazodone 100 mg at bedtime - vitamin D 50,000 units by mouth once a week ASSESSMENT: A 63-year-old female with end-stage renal disease on hemodialysis every Thursday, , Thursday, admitted at this time with atrial fibrillation with rapid ventricular response and decompensated diastolic congestive heart failure. PLAN: 1. End-stage renal disease, on hemodialysis. The patient is being emergently dialyzed at this time. I will try to remove at least 2 liters of fluid as tolerated by her blood pressure. 2. Atrial fibrillation with rapid ventricular rate. The patient already got IV metoprolol. Her metoprolol dose was decreased as outpatient. She has been restarted on 25 mg by mouth every 6 hours. Rest of the management is as per cardiology team. She is not a candidate for anticoagulation. 3. Hyperkalemia. The patient is being dialyzed with a 2K bath. Potassium level is expected to improve. 4. Secondary hyperparathyroidism and renal failure. Continue current dose of calcitriol and Sensipar. 5. Acute decompensated diastolic congestive heart failure. She was already given a dose of Lasix 100 mg IV times one dose. About 2.5 liters of fluid will be removed as tolerated by her blood pressure. 6. Hypothyroidism. Continue home dose of levothyroxine 75 mcg by mouth daily. 7. Anemia and end-stage renal disease. Hemoglobin is more than 11. No need of Aranesp administration today. Thank you for involving me in the care of this patient. I shall be happy to follow the patient along with you tomorrow morning.
[2019-02-12] MEDS ORDERED: CALCITRIOL 0.25 MCG CAP (S0169) PO SCH (16:00)
[2019-02-12 16:46] LABS: CK-MB VALUE MASS < 1.0 NG/ML (<3.6); CPK CREATINE PHOSPHOKINASE 23 U/L (26-192); MB/CK RELATIVE INDEX 4.35 (< OR =4); TROPONIN I < 0.02 NG/ML (< 0.10)
[2019-02-12 17:13] VITALS: BP 120/73
[2019-02-12] MEDS: METOPROLOL TART 25 MG TABLET PO SCH ×2 (18:28→18:29)
[2019-02-12 18:29] VITALS: BP 120/73
[2019-02-12] MEDS ORDERED: CYCLOBENZAPRINE 5MG TABLET PO SCH (21:00)
[2019-02-12] MEDS ORDERED: ROSUVASTATIN 10 MG TAB (CRESTOR) PO SCH (21:00)
[2019-02-12] MEDS ORDERED: traZODone 100 MG TAB PO SCH (21:00)
[2019-02-13] MEDS ORDERED: LEVOTHYROXINE 75MCG TABLET (0.075MG) PO SCH (06:00)
--- NOTE | 2019-02-13 13:14 | DSES ---
DATE OF ADMISSION: 02/12/2019 DATE OF DISCHARGE: 02/12/2019 Discharged (left against medical advice) 02/12/2019 PRINCIPAL DIAGNOSIS: Atrial fibrillation, rapid ventricular response. SECONDARY DIAGNOSIS: End-stage renal disease. HISTORY: Mrs. Carnes was admitted with atrial fibrillation and rapid ventricular response requiring intravenous (IV) metoprolol, diastolic congestive heart failure. Details in history and physical from admission. HOSPITAL COURSE: The patient was seen by me in the emergency room and admitted 02/12/2019. She went to dialysis; and upon returning to the emergency room, she apparently left against medical advice. I was called after she had left. I tried to reach her yesterday on 02/12/2019 and again this morning, 02/13/2019. I had left a message for her to call the answering service so I can arrange followup care; and as of this dictation, she has not done that. I did send a telephone encounter to Dr. Cali, who sees her in the residency clinic. I am letting him know she left against medical advice, and at that time, she was still tachycardic with uncontrolled rate from atrial fibrillation, so that someone could reach out and try and get an appointment for her.
[2019-02-18] MEDS ORDERED: CINACALCET 30 MG TAB (SENSIPAR) PO SCH (09:00)
[2019-02-20] MEDS ORDERED: VITAMIN D 50,000 UNITS CAPSULE (ERGOCALCIFEROL 1.25MG) PO SCH (09:00)
== END 2019-02-12 19:58 | disposition left against medical advice (07) | DRG 308 ==
LOC: M ED 05:46 → M ED INP 09:44
PROVIDERS: ADMIT Family Medicine; ATTEND Family Medicine
PROC: 5A1D70Z Performance of Urinary Filtration, Intermittent, Less than 6 Hours Per Day (ICD-10-PCS; principal; 2019-02-12)
DX: I48.91 Unspecified atrial fibrillation (principal); N18.6 End stage renal disease; I50.33 Acute on chronic diastolic (congestive) heart failure; I13.2 Hypertensive heart and chronic kidney disease with heart failure and with stage 5 chronic kidney disease, or end stage renal disease; N25.81 Secondary hyperparathyroidism of renal origin; Z99.2 Dependence on renal dialysis; E11.21 Type 2 diabetes mellitus with diabetic nephropathy; E11.22 Type 2 diabetes mellitus with diabetic chronic kidney disease; J44.9 Chronic obstructive pulmonary disease, unspecified; D63.1 Anemia in chronic kidney disease; F41.9 Anxiety disorder, unspecified; E66.9 Obesity, unspecified; G47.33 Obstructive sleep apnea (adult) (pediatric); E04.1 Nontoxic single thyroid nodule; K76.0 Fatty (change of) liver, not elsewhere classified; Z87.442 Personal history of urinary calculi; J38.3 Other diseases of vocal cords; I69.111 Memory deficit following nontraumatic intracerebral hemorrhage; Z88.1 Allergy status to other antibiotic agents; Z88.8 Allergy status to other drugs, medicaments and biological substances; Z79.82 Long term (current) use of aspirin; Z79.4 Long term (current) use of insulin; Z79.891 Long term (current) use of opiate analgesic; Z79.899 Other long term (current) drug therapy; R42 Dizziness and giddiness; E87.5 Hyperkalemia

== ENCOUNTER 2019-08-03 10:48 | Emergency (ER) | payer MEDICARE, MEDICAID ==
[~2019-08-03] VITALS: Ht 152.4 cm; Wt 74.5 kg
[~2019-08-03 10:48] MED LIST changes: +DIAZ2TAB PO; +MECL-68 PO; -MECL1TAB31 PO; +METO1TAB87 PO; +SODI200S PO; +TOPR25TA PO; +TRAZ10TA PO; -TRAZ1TAB12 PO
[2019-08-03] MEDS ORDERED: GABA-1171 (11:11)
[2019-08-03] MEDS ORDERED: VITA50005 (11:11)
[2019-08-03] MEDS ORDERED: VELP5CHW (11:11)
--- NOTE | 2019-08-03 11:55 | REP ---
INDICATION: Fall, history of bleed PROCEDURE: Noncontrast CT head COMPARISON STUDIES: CT head without contrast 12/27/2018 FINDINGS: There is a small amount of high-density material within the posterior horn of the right lateral ventricle. This may be slightly greater than seen on the comparison study 01/06/2019. There is encephalomalacia in the left frontal lobe, unchanged. No evidence of acute infarct. Ventricles, cisterns and sulci within normal limits. No mass effect or midline shift. Paranasal sinuses and mastoid air cells are clear. IMPRESSION: Findings suggestive of a small amount of interventricular hemorrhage on the right may be slightly increased from the comparison study of 01/06/2019. Findings discussed with Tevin Perez in the ED at the time of interpretation. Electronically Signed by Ky Hallman MD 08/03/2019 11:46 A
[2019-08-03] MEDS ORDERED: diazePAM 5 MG TAB PO ONE (12:00)
--- NOTE | 2019-08-03 12:00 | REP ---
INDICATION: Trauma. PROCEDURE: Noncontrast CT cervical spine. COMPARISON STUDIES: CT cervical spine 06/29/2017. FINDINGS: No acute fracture or malalignment. Craniovertebral junction is unremarkable. Degenerative change appears progressed at the C5-6 disc level with loss of disc height and endplate changes. No evidence of a limiting canal or foraminal stenosis. CONCLUSION: No acute findings. Degenerative changes. Electronically Signed by Ky Hallman MD 08/03/2019 11:52 A
[2019-08-03 13:31] VITALS: BP 129/77
--- NOTE | 2019-08-04 19:06 | ECGEPIP ---
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
== END 2019-08-03 13:32 | disposition short-term general hospital (02) ==
LOC: EDBD 10:48 → M ED 10:48
DX: I48.91 Unspecified atrial fibrillation (principal); I61.5 Nontraumatic intracerebral hemorrhage, intraventricular; W01.0XXA Fall on same level from slipping, tripping and stumbling without subsequent striking against object, initial encounter; Y92.099 Unspecified place in other non-institutional residence as the place of occurrence of the external cause; Y93.89 Activity, other specified; Y99.9 Unspecified external cause status; K08.89 Other specified disorders of teeth and supporting structures; I50.9 Heart failure, unspecified; E11.9 Type 2 diabetes mellitus without complications; I10 Essential (primary) hypertension; E78.5 Hyperlipidemia, unspecified; K21.9 Gastro-esophageal reflux disease without esophagitis; N18.6 End stage renal disease; Z99.2 Dependence on renal dialysis; J44.9 Chronic obstructive pulmonary disease, unspecified; G47.33 Obstructive sleep apnea (adult) (pediatric); Z86.79 Personal history of other diseases of the circulatory system; Z87.442 Personal history of urinary calculi; Z96.0 Presence of urogenital implants; Z98.890 Other specified postprocedural states; Z87.891 Personal history of nicotine dependence; Z79.82 Long term (current) use of aspirin; Z79.4 Long term (current) use of insulin; Z79.899 Other long term (current) drug therapy; Z88.1 Allergy status to other antibiotic agents

== ENCOUNTER 2019-08-19 00:52 | Emergency (ER) | payer MEDICARE, MEDICAID ==
[~2019-08-19] VITALS: Ht 154.9 cm; Wt 77.3 kg
[~2019-08-19 00:52] MED LIST changes: +GABA-1171; -HEPA500011 IJ; +HEPA500011 IV; -MECL-68 PO; +MECL1TAB31 PO; -TRAZ10TA PO; +TRAZ1TAB12 PO; +VELP5CHW; +VITA50005 PO
--- NOTE | 2019-08-19 02:23 | REPVR ---
PROCEDURE INFORMATION: Exam: US Duplex Left Lower Extremity Veins, Limited Exam date and time: 08/19/2019 2:10 AM Age: 63 years old Clinical indication: Pain; Leg, upper; Left; Additional info: Left leg pain TECHNIQUE: Imaging protocol: Real-time Duplex ultrasound of the Left Lower Extremity with 2-D burr scale, color Doppler flow and spectral waveform analysis with image documentation. Limited exam focused on the left lower extremity veins. COMPARISON: US Duplex, Ext LOWER veins, bilat 2018-01-31 21:00 FINDINGS: Left deep veins: Unremarkable. The common femoral, femoral, proximal profunda femoral and popliteal veins are patent without thrombus. Normal Doppler waveforms. Normal compressibility and/or augmentation response. Left superficial veins: Unremarkable. Saphenofemoral junction is patent without thrombus. Soft tissues: Unremarkable. IMPRESSION: No acute findings. No evidence of deep vein thrombosis. Electronically signed by: David Hunter On 08/19/2019 02:22:39 AM
[2019-08-19 02:25] LABS: CALCIUM LEVEL 7.5 MG/DL (8.8-10.2); CREATININE FOR GFR 4.83 MG/DL (0.55-1.30); GLOMERULAR FILTRATION RATE 9.7 (>45); MAGNESIUM LEVEL 1.9 MG/DL (1.8-2.4); POTASSIUM SERUM 4.1 MEQ/L (3.5-5.1)
[2019-08-19] MEDS ORDERED: ACETAMINOPHEN TAB 650MG DOSE (2X325MG) PO ONE (03:15)
[2019-08-19] MEDS ORDERED: CALCIUM CARBONATE 500 MG CHEW U/D PO ONE (03:15)
[2019-08-19 03:42] VITALS: BP 141/72
== END 2019-08-19 03:44 | disposition home or self-care (01) ==
LOC: M ED 00:52
DX: E83.51 Hypocalcemia (principal); R25.2 Cramp and spasm; M79.605 Pain in left leg; N18.6 End stage renal disease; Z99.2 Dependence on renal dialysis; E11.9 Type 2 diabetes mellitus without complications; Z79.82 Long term (current) use of aspirin; Z79.4 Long term (current) use of insulin; Z79.899 Other long term (current) drug therapy; Z88.8 Allergy status to other drugs, medicaments and biological substances

== ENCOUNTER 2019-08-20 17:43 | Emergency (ER) | payer MEDICARE, MEDICAID ==
[~2019-08-20] VITALS: Ht 154.9 cm; Wt 85.0 kg
[2019-08-20] MEDS ORDERED: PERCOCET 5MG/325MG TAB PO ONE (18:30)
[2019-08-20] MEDS ORDERED: BACLOFEN 10 MG TAB PO ONE (18:30)
[2019-08-20] MEDS ORDERED: GABAPENTIN 300 MG CAP PO ONE (18:30)
[2019-08-20 20:47] LABS: IONIZED CALCIUM 3.9 MG/DL (4.5-5.3)
[2019-08-20 21:12] LABS: CALCIUM LEVEL 7.7 MG/DL (8.8-10.2); CREATININE FOR GFR 4.62 MG/DL (0.55-1.30); GLOMERULAR FILTRATION RATE 10.2 (>45); POTASSIUM SERUM 4.2 MEQ/L (3.5-5.1)
[2019-08-20 22:43] VITALS: BP 103/66
[2019-08-21] MEDS ORDERED: ANOR1AER INH (12:43)
[2019-08-21] MEDS ORDERED: TUMS500C PO (12:43)
== END 2019-08-20 22:40 | disposition home or self-care (01) ==
LOC: EDBD 17:43 → M ED 17:43
DX: E83.51 Hypocalcemia (principal); M54.42 Lumbago with sciatica, left side; I48.91 Unspecified atrial fibrillation; I50.9 Heart failure, unspecified; E11.40 Type 2 diabetes mellitus with diabetic neuropathy, unspecified; E78.5 Hyperlipidemia, unspecified; G89.29 Other chronic pain; M54.9 Dorsalgia, unspecified; Z87.442 Personal history of urinary calculi; F41.9 Anxiety disorder, unspecified; F32.9 Major depressive disorder, single episode, unspecified; J44.9 Chronic obstructive pulmonary disease, unspecified; N18.6 End stage renal disease; Z99.2 Dependence on renal dialysis; Z79.82 Long term (current) use of aspirin; Z79.4 Long term (current) use of insulin; Z79.899 Other long term (current) drug therapy; Z88.8 Allergy status to other drugs, medicaments and biological substances

== ENCOUNTER 2019-08-21 07:58 | Inpatient (IN) | payer MEDICARE, MEDICAID ==
[~2019-08-21] VITALS: Ht 154.9 cm; Wt 78.9 kg
--- NOTE | 2019-08-21 09:22 | REP ---
AP PORTABLE CHEST: 08/21/2019. Comparison: 02/12/2019, 01/06/2019. Clinical history: Chest pain, dizziness. Findings: Lung spencer are adequately inflated. CP angles sharply defined. Some cardiomegaly with left atrial and ventricular enlargement noted. There is venous hypertension without interstitial edema or alveolar edema. No dense consolidation or parenchymal mass. The aorta is tortuous and ectatic, unchanged. Airway intact. Some degenerative changes in the spine. Impression: 1. Cardiomegaly with left atrial and ventricular enlargement and some venous hypertension. No interstitial edema, acute infiltrate, pleural effusion or other significant finding. Electronically Signed by Guillermo Barnes MD 08/21/2019 08:17 P
--- NOTE | 2019-08-21 09:46 | REP ---
CT BRAIN WITHOUT CONTRAST: 08/21/2019. Comparison: CT 08/03/2019, 01/06/2019, 08/06/2018, 06/29/2017, 09/23/2016. Clinical history: Dizzy. Past history of right intraventricular bleed. Findings. Standard technique was utilized. Lateral ventricles midline, symmetric and proportionate to the diffuse cerebral atrophy. This is greater than expected for age. Third and fourth ventricles also mildly dilated and proportionate. Some periventricular encephalomalacia near the frontal horn of the left lateral ventricle, unchanged. Chronic small vessel white matter ischemic changes of aging are noted. The basal ganglia is symmetric and unremarkable. Diffuse atrophy in the cortical stripe. There is no extra-axial fluid collection. I see no parenchymal hemorrhage. There is an asymmetric pattern of hyperdensities in the atria of the bilateral lateral ventricles. This appearance however is unchanged from multiple prior studies and there is no hyperdense fluid fluid level to suggest acute intraventricular hemorrhage. I believe these are calcifications related to coronoid and some may be related to old hemorrhage. No midline shift. No new finding. Brainstem unremarkable. Cerebellum with diffuse atrophy. Basal cisterns intact. Mastoids symmetric and unremarkable. There is bilateral ethmoid sinus mucosal thickening. The frontal, sphenoid and visualized maxillary sinuses were clear. Skull base and calvarium included were unremarkable. Impression: 1. Chronic small vessel ischemic changes and some mild encephalomalacia adjacent to the frontal horn of the left lateral ventricle unchanged. 2. Ventriculomegaly and proportionate atrophy. 3. Some asymmetric hyperdensities in the atrium and posterior horn of the right lateral ventricle compared to the left but no fluid fluid levels to suggest acute hemorrhage. These densities are related to choroid plexus calcifications and possibly old hemorrhage. They are identical in appearance over the last several years. I do not believe there is any evidence for acute intraventricular hemorrhage. 4. Ethmoid sinus mucosal disease. The mastoids and other sinuses visible were clear. Skull base and calvarium intact. Electronically Signed by Guillermo Barnes MD 08/21/2019 08:18 P
[2019-08-21 09:49] LABS: BASO % 0.3 % (0.0-1.0); HEMATOCRIT 36.9 % (36.0-47.0); HEMOGLOBIN 11.4 g/dl (12.0-15.5); LYMPH # 0.8 10^3/uL (1.5-5.0); LYMPH % 10.9 % (24.0-44.0); MEAN CORPUSCULAR HEMOGLOBIN 31.5 pg (27.0-33.0); MEAN CORPUSCULAR HGB CONC 30.9 g/dl (32.0-36.5); MEAN CORPUSCULAR VOLUME 101.9 fl (80.0-96.0); MONO # 0.7 10^3/uL (0.0-0.8); MONO % 9.1 % (0.0-5.0); NEUTROPHILS # 5.9 10^3/uL (1.5-8.5); NEUTROPHILS % 79.2 % (36.0-66.0); PLATELET COUNT, AUTOMATED 103 10^3/uL (150-450); RED BLOOD COUNT 3.62 10^6/uL (4.00-5.40); WHITE BLOOD COUNT 7.4 10^3/uL (4.0-10.0)
[2019-08-21 09:57] LABS: INR 0.95; PROTHROMBIN TIME 12.4 SECONDS (11.8-14.0)
[2019-08-21 09:58] LABS: PARTIAL THROMBOPLASTIN TIME 31.4 SECONDS (25.0-38.4)
[2019-08-21 10:33] LABS: ALBUMIN 3.6 GM/DL (3.2-5.2); ALT/SGPT 17 U/L (12-78); BILIRUBIN,DIRECT 0.1 MG/DL (0.0-0.2); BILIRUBIN,TOTAL 0.4 MG/DL (0.2-1.0); BLOOD UREA NITROGEN 28 MG/DL (7-18); CALCIUM LEVEL 8.1 MG/DL (8.8-10.2); CARBON DIOXIDE LEVEL 33 MEQ/L (21-32); CHLORIDE LEVEL 98 MEQ/L (98-107); CK-MB VALUE MASS < 1.0 NG/ML (<3.6); CPK CREATINE PHOSPHOKINASE 23 U/L (26-192); CREATININE FOR GFR 5.37 MG/DL (0.55-1.30); FREE T4 1.09 NG/DL (0.76-1.46); GLOMERULAR FILTRATION RATE 8.6 (>45); GLUCOSE, FASTING 100 MG/DL (70-100); LIPASE 111 U/L (73-393); MAGNESIUM LEVEL 2.1 MG/DL (1.8-2.4); MB/CK RELATIVE INDEX 4.35 (< OR =4); POTASSIUM SERUM 4.8 MEQ/L (3.5-5.1); SODIUM LEVEL 138 MEQ/L (136-145); TOTAL PROTEIN 6.7 GM/DL (6.4-8.2); TROPONIN I < 0.02 NG/ML (< 0.10)
[2019-08-21] MEDS ORDERED: ONDANSETRON 4MG/2ML VIAL (J2405) As Ordered ONE (11:38)
[2019-08-21] MEDS ORDERED: ONDANSETRON 4MG/2ML VIAL (J2405) IV ONE ×2 (11:45→14:45)
[2019-08-21] MEDS ORDERED: TUMS500C PO (12:43)
[2019-08-21] MEDS ORDERED: ANOR1AER INH (12:43)
--- NOTE | 2019-08-21 13:01 | REP ---
MRI BRAIN WITHOUT CONTRAST: 08/21/2019. Comparison: 01/06/2019, 08/06/2018., CT brain 08/21/2019. Clinical history: Dizziness, rule out cerebellar CVA. Technique: Sagittal T1 with axial T1, T2, FLAIR, gradient-echo, diffusion-weighted images and ADC mapping sequences. Findings: Lateral ventricles are midline, symmetric and mildly prominent in proportion to the diffuse cerebral atrophy. Third and fourth ventricles also proportionate and these are all unchanged from the previous two exams. Evidence for a prior left frontal ventriculostomy catheter course again seen and unchanged. The catheter removed based on CT. Basal ganglia were unchanged. There is some periventricular, subcortical and some central punctate white matter hyperintense T2 and FLAIR foci bilaterally and unchanged. On the gradient echo images, there is decreased signal in the atrium of the right lateral ventricle and posterior horn extending into the occipital and temporal lobe region representing sequelae of prior hemorrhage with hemosiderin deposition. The T1 and T2 fluid characteristics in these bilateral ventricles are symmetric. There is atrophy, unchanged. No extra-axial hemorrhage or increased fluid collection. No vascular territory infarct, mass or mass effect. The brainstem shows no signal abnormality on T2 and FLAIR images. Likewise cerebellum shows no mass, focal lesion or signal abnormality. Some ludmila cisterna magna posteriorly. Basal cisterns intact. Visualized mastoids and seventh/eighth cranial nerve complexes symmetric and normal. Sinuses show minor mucosal thickening of some of the ethmoid air cells but are otherwise clear. Corpus callosum shows artifact from the previous left frontal ventriculostomy catheter course. It was otherwise intact. The infundibulum, pituitary and optic chiasm are unremarkable. The diffusion weighted images and ADC mapping sequences show no evidence of acute ischemic pattern of signal. Impression: 1. Ventriculomegaly with proportionate atrophy, unchanged. 2. Hemosiderin deposition in the right lateral ventricle, unchanged and representing the sequelae of prior intraventricular hemorrhage. 3. There is no intracranial mass, acute infarct, acute bleed, extra-axial fluid collection or other significant interval change. 4. Small vessel ischemic changes. No abnormalities on diffusion imaging. Stable exam from 01/06/2019 and 08/06/2018. Electronically Signed by Guillermo Barnes MD 08/21/2019 08:27 P
[2019-08-21 13:15] VITALS: BP 133/93
[2019-08-21] MEDS ORDERED: SENNA 8.6 MG TAB (SENOKOT) PO PRN (13:15)
[2019-08-21] MEDS ORDERED: CYCLOBENZAPRINE 5MG TABLET PO PRN (13:15)
[2019-08-21] MEDS ORDERED: MECLIZINE 25 MG TABLET PO PRN (13:15)
[2019-08-21] MEDS ORDERED: HEPARIN SOD (PORCINE) 5000 UNITS/ML VIAL (J1644 PER 1000UNITS) IV SCH (13:15)
[2019-08-21] MEDS ORDERED: MIRALAX *UNIT DOSE* 17GM PACKET PO PRN (13:15)
[2019-08-21 14:00] VITALS: BP_SYST 125; BP_SYST 132; BP_SYST 134; BP_DIAS 76; BP_DIAS 84; BP_DIAS 92
[2019-08-21] MEDS: ASPIRIN 325 MG TAB PO SCH (14:06)
[2019-08-21] MEDS: OMEPRAZOLE 20 MG CAP PO SCH (14:06)
[2019-08-21] MEDS ORDERED: CYCLOBENZAPRINE 10 MG TAB PO PRN (14:45)
[2019-08-21] MEDS ORDERED: CYCLOBENZAPRINE 10 MG TAB PO ONE (14:45)
[2019-08-21] MEDS ORDERED: HYDROMORPHONE HCL 0.5 MG/ 0.5 ML SYRINGE (J1170 PER 1) IV ONE (15:00)
[2019-08-21] MEDS: CALCIUM CARBONATE 500 MG CHEW U/D PO SCH (18:23)
--- NOTE | 2019-08-21 18:57 | IPNPDOC ---
Date Seen The patient was seen on 08/21/19. Progress Note addendum: MRI Brain: 1. Ventriculomegaly with proportionate atrophy, unchanged. 2. Hemosiderin deposition in the right lateral ventricle, unchanged and representing the sequelae of prior intraventricular hemorrhage. 3. There is no intracranial mass, acute infarct, acute bleed, extra-axial fluid collection or other significant interval change. 4. Small vessel ischemic changes. No abnormalities on diffusion imaging. Stable exam from 01/06/2019 and 08/06/2018. VS, I&O, 24H, Fishbone Vital Signs/I&O Vital Signs Date Time Temp Pulse Resp B/P (MAP) Pulse Ox O2 Delivery O2 Flow Rate FiO2 08/21/19 15:00 18 Room Air 08/21/19 13:15 97.8 91 133/93 (106) 98 08/21/19 12:15 3.0 Laboratory Data 24H LABS Laboratory Tests 2 08/21/19 09:31: Whole Blood Ionized Calcium 4.2L 08/21/19 09:33: Lactic Acid Level 1.2 08/21/19 09:35: Immature Granulocyte % (Auto) 0.5, Neutrophils (%) (Auto) 79.2H, Lymphocytes (%) (Auto) 10.9L, Monocytes (%) (Auto) 9.1H, Eosinophils (%) (Auto) 0.0, Basophils (%) (Auto) 0.3, Neutrophils # (Auto) 5.9, Lymphocytes # (Auto) 0.8L, Monocytes # (Auto) 0.7, Eosinophils # (Auto) 0.0, Basophils # (Auto) 0.0, Nucleated Red Blood Cells % (auto) 0.0, Prothrombin Time 12.4, Prothromb Time International Ratio 0.95, Activated Partial Thromboplast Time 31.4, Bedside Glucose (Misc Panel) 110, Anion Gap 7L, Glomerular Filtration Rate 8.6L, Calcium Level 8.1L, Magnesium Level 2.1, Total Bilirubin 0.4, Direct Bilirubin 0.1, Aspartate Amino Transf (AST/SGOT) 12, Alanine Aminotransferase (ALT/SGPT) 17, Alkaline Phosphatase 233H, Total Creatine Kinase 23L, Creatine Kinase MB < 1.0, Creatine Kinase MB Relative Index 4.35H, Troponin I < 0.02, Total Protein 6.7, Albumin 3.6, Albumin/Globulin Ratio 1.16, Lipase 111, Thyroid Stimulating Hormone (TSH) 1.480, Free Thyroxine 1.09 08/21/19 09:37: POC Glucose (Misc Panel) 105, POC Sodium (Misc Panel) 135L, POC Potassium (Misc Panel) 4.8, POC Chloride (Misc Panel) 96L, POC Total CO2 (Misc Panel) 33.0H, POC Blood Urea Nitrogen (Misc Panel 27H, POC Ionized Calcium (Misc Panel) 4.1L, POC Creatinine (Misc Panel) 5.5H, POC Hematocrit (Misc Panel) 34.0L 08/21/19 13:37: Bedside Glucose (Misc Panel) 95 CBC/BMP Laboratory Tests 08/21/19 09:35 Microbiology Microbiology 08/21/19 Blood Culture, Received Pending 08/21/19 Blood Culture, Received Pending CALISTA DOMINGUEZ MD Aug 21, 2019 18:57
--- NOTE | 2019-08-21 19:22 | ECGEPIP ---
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
[2019-08-21 21:28] LABS: CK-MB VALUE MASS < 1.0 NG/ML (<3.6); CPK CREATINE PHOSPHOKINASE 28 U/L (26-192); MB/CK RELATIVE INDEX 3.57 (< OR =4); TROPONIN I < 0.02 NG/ML (< 0.10)
[2019-08-21] MEDS: ROSUVASTATIN 10 MG TAB (CRESTOR) PO SCH (21:43)
[2019-08-21] MEDS: LEVEMIR (INSULIN DETEMIR) 1 UNITS/0.01ML SC SCH (21:43)
[2019-08-21] MEDS: traZODone 100 MG TAB PO SCH (21:43)
[2019-08-21] MEDS: METOPROLOL TART 25 MG TABLET PO SCH (21:43)
[2019-08-21 22:00] VITALS: BP_SYST 121; BP_SYST 122; BP_SYST 127; BP_DIAS 71; BP_DIAS 72; BP_DIAS 76
[2019-08-22] MEDS: LEVOTHYROXINE 75MCG TABLET (0.075MG) PO SCH (05:29)
[2019-08-22 05:52] LABS: IONIZED CALCIUM 4.1 MG/DL (4.5-5.3)
[2019-08-22 06:00] VITALS: BP_SYST 100; BP_SYST 119; BP_SYST 124; BP_SYST 127; BP_DIAS 61; BP_DIAS 70; BP_DIAS 75; BP_DIAS 77
[2019-08-22 06:00] LABS: HEMATOCRIT 37.9 % (36.0-47.0); HEMOGLOBIN 11.4 g/dl (12.0-15.5); MEAN CORPUSCULAR HEMOGLOBIN 31.4 pg (27.0-33.0); MEAN CORPUSCULAR HGB CONC 30.1 g/dl (32.0-36.5); MEAN CORPUSCULAR VOLUME 104.4 fl (80.0-96.0); PLATELET COUNT, AUTOMATED 102 10^3/uL (150-450); RED BLOOD COUNT 3.63 10^6/uL (4.00-5.40); WHITE BLOOD COUNT 8.8 10^3/uL (4.0-10.0)
[2019-08-22 06:33] LABS: BLOOD UREA NITROGEN 39 MG/DL (7-18); CALCIUM LEVEL 7.9 MG/DL (8.8-10.2); CARBON DIOXIDE LEVEL 33 MEQ/L (21-32); CHLORIDE LEVEL 97 MEQ/L (98-107); CK-MB VALUE MASS < 1.0 NG/ML (<3.6); CPK CREATINE PHOSPHOKINASE 23 U/L (26-192); CREATININE FOR GFR 6.92 MG/DL (0.55-1.30); GLOMERULAR FILTRATION RATE 6.4 (>45); GLUCOSE, FASTING 81 MG/DL (70-100); MAGNESIUM LEVEL 2.2 MG/DL (1.8-2.4); MB/CK RELATIVE INDEX 4.35 (< OR =4); SODIUM LEVEL 138 MEQ/L (136-145); TROPONIN I < 0.02 NG/ML (< 0.10)
[2019-08-22] MEDS ORDERED: CINACALCET 30 MG TAB (SENSIPAR) PO SCH (09:00)
--- NOTE | 2019-08-22 09:06 | REP ---
Bilateral carotid artery duplex ultrasound: Peak flow velocity analysis: RIGHT LEFT ICA Peak flow velocity cm/sec the 53.3 63.1 ICA Diastolic flow velocity cm/sec 13.4 21.6 ICA/CCA Ratio 0.7 0.6 ECA Peak flow velocity cm/sec 81.3 75.8 CCA Peak flow velocity cm/sec 76.0 101.6 There is intimal thickening bilaterally. The peak flow velocities are normal bilaterally. There is no focal stenosis on the right on the left. There is antegrade flow in the vertebral arteries bilaterally. Impression: There is no focal stenosis on the right on the left. The study is technically difficult because of respiratory motion. There is no change from the prior study of 02/07/2013. The patient has a known thyroid multinodular goiter. Electronically Signed by Scout Barclay MD 08/22/2019 08:58 A
[2019-08-22 09:25] VITALS: BP 131/72
[2019-08-22] MEDS: OMEPRAZOLE 20 MG CAP PO SCH (09:26)
[2019-08-22] MEDS: CALCIUM CARBONATE 500 MG CHEW U/D PO SCH ×2 (09:26→19:06)
[2019-08-22] MEDS: ASPIRIN 325 MG TAB PO SCH (09:26)
[2019-08-22] MEDS: METOPROLOL TART 25 MG TABLET PO SCH ×3 (09:27→20:07)
[2019-08-22] MEDS: ONDANSETRON 4MG/2ML VIAL (J2405) IV PRN (12:42)
[2019-08-22 14:00] VITALS: BP 111/71
[2019-08-22] MEDS ORDERED: CALCIUM GLUCONATE 1,000 MG in D5W MINI-BAG PLUS 100 ML IV ONE (15:00)
[2019-08-22] MEDS ORDERED: NS 500 ML IV ONE (15:00)
[2019-08-22 19:45] VITALS: BP_SYST 110; BP_SYST 111; BP_SYST 114; BP_DIAS 78; BP_DIAS 80; BP_DIAS 83
[2019-08-22] MEDS: NORCO, ANEXSIA 5/325MG TABLET (HYDROcodone/ACETAMINOPHEN) PO PRN (20:06)
[2019-08-22] MEDS: traZODone 100 MG TAB PO SCH (20:06)
[2019-08-22] MEDS: ROSUVASTATIN 10 MG TAB (CRESTOR) PO SCH (20:06)
--- NOTE | 2019-08-22 20:38 | HPE ---
DATE OF ADMISSION: 08/21/2019 CHIEF COMPLAINT: Dizziness. HISTORY OF PRESENT ILLNESS: This is a 63-year-old female with a history of end stage renal disease on maintenance dialysis on Thursday, and Thursday, vestibular neuritis and vertigo, diabetes with neuropathy, atrial fibrillation and atrial flutter not on anticoagulation due to intraventricular bleeding in May 2018, chronic diastolic heart failure, chronic obstructive pulmonary disease (COPD), end stage anemia, chronic anxiety, obstructive sleep apnea, chronic vocal cord dysfunction not on continuous positive airway pressure (CPAP), who presented to the emergency room with acute onset of dizziness. The patient says that she had bilateral hand pain and cramping, along with bilateral lower extremities. She was given gabapentin, which she had taken for 2 days with dry mouth, and so she stopped it on her own. She then went to dialysis and said that she wanted to drink of water and she was very parched. When she got up this morning to go to the bathroom she was mad at the toilet paper because there was an empty roll, she threw it on the ground and when she got up she went back to her bedroom and felt very dizzy, lightheadedness and did not feel well. She then called 911 and thinks that she may have called her ex so that he could come with a art to allow the ambulance to come in. She had significant dizziness and twitching and was seen in the emergency room. She otherwise denies any recent upper respiratory infection, rhinorrhea, congestion, cough, shortness of breath. She denied any palpitations. She denied any fever, chills, nausea, vomiting, diarrhea, abdominal pain, constipation. Denies any changes in weight, change in appetite, lumps or bumps. She has already gotten her influenza and shingles vaccine and says that she has been exposed to people with the flu and tries to avoid them. She otherwise denies any dysuria, urgency, frequency, bright red blood per rectum, melena, black tarry stools. Denies any upper or lower extremity weakness, paresthesias, aside from pain in bilateral hands, thought to be neuropathy. In the emergency room, CT of the head was negative for any intraventricular bleed. MRI of the brain is pending. Electrocardiogram (EKG) was unremarkable. Atrial fibrillation with a ventricular rate of 81. Complete blood count (CBC) and metabolic panel are unremarkable. She was afebrile. Orthostatics to be taken but systolic pressure is 120 to 140. Rate is controlled. Saturating at 100% on 3 liters nasal cannula. Chest x-ray shows no acute cardiopulmonary disease. No edema, infiltrate or effusion. PAST MEDICAL HISTORY: 1. End stage renal disease on maintenance dialysis Thursday, , Thursday. 2. Diabetes with neuropathy. 3. Vestibular neuritis and vertigo. 4. Chronic diastolic heart failure. 5. Chronic obstructive pulmonary disease (COPD). 6. Atrial fibrillation with atrial flutter not on anticoagulation due to intraventricular brain hemorrhage. 7. Anemia of chronic disease. 8. Mineral bone disease. 9. Obesity. 10. Obstructive sleep apnea, does not wear continuous positive airway pressure (CPAP). 11. Chronic vocal cord dysfunction. 12. Fatty liver disease. 13. Chronic anxiety. 14. Arthritis. PAST SURGICAL HISTORY: 1. Left forearm AV fistula. ALLERGIES: QUINOLONES. FAMILY HISTORY: No family history of renal disease. SOCIAL HISTORY: Lives at home with her son. Denies smoking, drug use or alcohol abuse. REVIEW OF SYSTEMS: 10-point system is negative aside from positive findings on history and presenting illness. PHYSICAL EXAMINATION: VITAL SIGNS: Temperature 97.6, pulse 89, irregularly irregular, atrial fibrillation, respiratory rate 18, blood pressure 140/70, 100% on 3 liters nasal cannula. GENERAL: The patient is awake, alert and oriented times three. Able to speak in full sentences with fluent speech. No conversational dyspnea or use of respiratory accessory muscles. The patient has supplemental oxygen. No cyanosis. No jugular venous distention (JVD), thyromegaly or cervical lymphadenopathy. Dry mucous membranes. Facies are symmetric. Tongue is midline. Motor function is 5/5 times four extremities, diminished sensation in lower extremities. Negative Babinski. No pronator drift. The patient has no dysmetria on finger to nose testing. Deep tendon reflexes are intact. LUNGS: Clear to auscultation. No wheezing, rales or rhonchi. HEART: S1, S2. Irregularly irregular. ABDOMEN: Obese, soft, nontender, nondistended. Positive bowel sounds times four quadrants. No hepatosplenomegaly. No rebound or guarding. No abdominal bruits noted. EKG showed atrial fibrillation, ventricular rate of 81. LABORATORY DATA: White count 7.4, hemoglobin 11, hematocrit 36, platelet count 103. Sodium 138, potassium 4.9, chloride 98, bicarbonate 33, BUN 28, creatinine 5.37, glucose of 100, calcium 8.1, ionized calcium 4.2, magnesium 2.1, total bilirubin 0.4, direct bilirubin 0.1, AST 12, ALT 17, alkaline phosphatase 233, total CK 23, troponin less than 0.02, total protein 6.7, albumin of 3.6, TSH 1.48. IMAGING STUDIES: CT of the head showed chronic small vessel ischemic changes, mild encephalomalacia, ventriculomegaly, proportionate atrophy. No evidence of acute intraventricular hemorrhage. ASSESSMENT AND PLAN: 1. Afib with RVR Check MRI brain to rule out CVA since pt has not been on AC. telemetry, 2-D echo to rule out significant valvular disease if it has not been done in the past year. 2. End stage renal disease on maintenance dialysis. Nephrology consulted for dialysis needs. 3. Anemia of chronic disease. No acute indication for red blood cell transfusion. No gastrointestinal bleed, melena, black tarry stools, hematemesis, bright red blood per rectum. 4. History of chronic diastolic heart failure. Euvolemic. May resume home medications. Ejection fraction was 70%. Normal left ventricular size and systolic function. There is mild to moderate tricuspid insufficiency. 5. History of vestibular neuritis and vertigo. Physical therapy (PT) consulted. 6. History of brain hemorrhage with intraventricular bleed secondary to anticoagulation. Off of anticoagulation for atrial fibrillation. 7. Obstructive sleep apnea. Not compliant with CPAP. 8. Obesity complicating care, Body Mass Index (BMI) 32. 9. Left leg weakness and low back pain. check MRI lumbar spine. 10. BL hand weakness. r.o cervical MRI. PT/OT. 11. Orthostais. ivfluid trials. MTDD
[2019-08-22] MEDS: LEVEMIR (INSULIN DETEMIR) 1 UNITS/0.01ML SC SCH (21:04)
[2019-08-22 22:00] VITALS: BP 114/77
[2019-08-23 01:23] VITALS: BP_SYST 121; BP_SYST 122; BP_SYST 124; BP_DIAS 71; BP_DIAS 72; BP_DIAS 75
[2019-08-23] MEDS: METOPROLOL TART 25 MG TABLET PO SCH ×4 (03:42→20:09)
[2019-08-23 06:00] VITALS: BP 125/67
[2019-08-23 06:30] LABS: HEMOGLOBIN 10.5 g/dl (12.0-15.5); MEAN CORPUSCULAR HEMOGLOBIN 33.1 pg (27.0-33.0); MEAN CORPUSCULAR HGB CONC 31.8 g/dl (32.0-36.5); MEAN CORPUSCULAR VOLUME 104.1 fl (80.0-96.0); RED BLOOD COUNT 3.17 10^6/uL (4.00-5.40); WHITE BLOOD COUNT 8.1 10^3/uL (4.0-10.0)
[2019-08-23] MEDS: OMEPRAZOLE 20 MG CAP PO SCH (06:31)
[2019-08-23] MEDS: LEVOTHYROXINE 75MCG TABLET (0.075MG) PO SCH (06:31)
[2019-08-23] MEDS: CALCIUM CARBONATE 500 MG CHEW U/D PO SCH ×2 (06:32→17:40)
[2019-08-23] MEDS: ASPIRIN 325 MG TAB PO SCH (06:32)
[2019-08-23 06:50] LABS: PLATELET COUNT, AUTOMATED 92 10^3/uL (150-450)
[2019-08-23 07:12] LABS: CALCIUM LEVEL 7.8 MG/DL (8.8-10.2); CREATININE FOR GFR 7.94 MG/DL (0.55-1.30); GLOMERULAR FILTRATION RATE 5.5 (>45); POTASSIUM SERUM 6.2 MEQ/L (3.5-5.1)
[2019-08-23] MEDS ORDERED: CALCITRIOL 0.25 MCG CAP (S0169) PO SCH (09:00)
--- NOTE | 2019-08-23 09:22 | IPN ---
DATE: 08/22/2019 The patient complains of pain in her lower back. No radiation to her legs but knees are weak, left greater than right. She also complains of bilateral hand weakness, sometimes with difficulty gripping her utensils with history of recent fall. PHYSICAL EXAMINATION: VITAL SIGNS: Temperature 97.7, pulse 109, respiratory rate 18, blood pressure 124/75, 98% on room air. GENERAL: Awake, alert, oriented to person, place and time. HEENT: Face is symmetric. Pupils are round and reactive. Extraocular muscles are intact. Moist mucous membranes. LUNGS: Clear to auscultation. No wheezing or rales. HEART: S1, S2. Irregularly irregular. ABDOMEN: Soft, nontender, nondistended. Obese abdomen. EXTREMITIES: No pitting edema. LABORATORY DATA: White count 8.8, hemoglobin 11, hematocrit 37, platelet count 102. Sodium 138, potassium 5, chloride 97, bicarbonate 33, BUN 39, creatinine 6.92, glucose 81, troponin less than 0.02. IMAGING STUDIES: MRI of the brain on 08/21/2019 showed no acute abnormality, ventriculomegaly with proportionate atrophy, small vessel ischemic disease, hemosiderin deposition right ventricle that is unchanged and representing sequelae of prior intraventricular hemorrhage. Vascular ultrasound showed no carotid artery stenosis bilaterally. ASSESSMENT AND PLAN: This is a 63-year-old female with a history of chronic atrial fibrillation, intraventricular hemorrhage, not on anticoagulation, fatty liver, chronic obstructive pulmonary disease (COPD), anemia of chronic disease, obstructive sleep apnea, intolerant of continuous positive airway pressure (CPAP), lapsus since intraventricular cerebral bleed, vocal cord dysfunction followed by ENT, atrial fibrillation not on anticoagulant due to bleeding, vestibular neuritis, 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 IMPRESSION: 1. Dizziness. MRI of the brain showed no cerebellar stroke. CT of the head shows no recurrent intraventricular hemorrhage. The patient will need acute rehabilitation due to significant weakness and gait imbalance. No infectious etiology. No empiric antibiotics required. 2. History of intraventricular hemorrhage. No residual but will need acute rehabilitation screen. 3. Atrial fibrillation/atrial flutter. No CVA on CT or MRI of the brain. 4. End stage renal disease. On maintenance dialysis. Dr. Bond has been consulted. 5. Obstructive sleep apnea. Intolerance of CPAP. 6. Atrial fibrillation with rapid rate. Adjust the patient's metoprolol for better rate control. Not on anticoagulation due to recent ventricular hemorrhage. DISPOSITION: Pending clinical improvement. MTDD
--- NOTE | 2019-08-23 10:33 | IPN ---
DATE OF SERVICE: 08/22/2019 SUBJECTIVE: Caro is seen and examined this morning sitting out of bed to chair. She complains that she still feels weak and has been having trouble ambulating. Temperature 97.7, pulse 109, respiratory rate 18, blood pressure 124/75, saturating 98% on room air. Intake and output shows net positive 600 mL. Weight in the bed scale today is not recorded. General: The patient is seen sitting out of bed to the chair, awake, alert, oriented, in no apparent distress. Extraocular muscles are intact. There is mild xanthelasma bilaterally. Pupils are equal and round and reactive to light. Neck is supple. Jugular veins are not elevated. Heart sounds are irregular and mildly tachycardiac. S1, S2. There is no edema in the legs nor in the dependent area. Lungs are clear to auscultation bilaterally. No crackle or rale. Abdomen is obese, soft and nontender. There are bowel sounds. Extremities: There is a patent fistula in the left arm with thrill and bruit. Legs are negative for edema, clubbing or cyanosis. Neurologic: She is oriented times three, interactive and conversational. Skin: Normal temperature and turgor. White count 8.8, hemoglobin 11.4. Sodium 138, potassium 5.0, bicarbonate 33, magnesium 2.2. Blood cultures no growth for 24 hours times two sets. Brain MRI reviewed with no acute changes. It shows chronic ventriculomegaly with proportionate atrophy and old sequela of intraventricular hemorrhage and small vessel ischemic changes. Carotid ultrasound was negative for significant stenosis. INPATIENT MEDICATIONS: Reviewed by myself and no changes compared to yesterday. PROBLEMS: 1. End-stage renal disease. On hemodialysis on a Thursday, , Thursday schedule. Her electrolytes and volume status are acceptable. She will be dialyzed tomorrow as per her chronic schedule. Continue current prescription. 2. Hypertension. Blood pressures are well controlled on low dose beta-eddi. No changes are being made. 3. Complaint of weakness and some tremors. Her head CT, brain MRI and carotid ultrasound are reviewed. She is pending imaging of her spine. So far no acute issues have been found. She is off of gabapentin and by all reports she had she did not take it for any prolonged amount of time. Her remainder of medications are appropriate for renal failure. 4. Anemia of chronic renal failure. Hemoglobin is optimal and no need of Aranesp at this time.
[2019-08-23] MEDS ORDERED: HEPARIN 1,000 UNITS/ML 10ML VIAL (FOR RADIOLOGY& DIALYSIS ONLY)(J1644-10) IV ONE (13:00)
[2019-08-23 14:00] VITALS: BP 149/82
[2019-08-23 14:05] LABS: PTH INTACT 827.7 PG/ML (18.5-88.0)
[2019-08-23] MEDS: NORCO, ANEXSIA 5/325MG TABLET (HYDROcodone/ACETAMINOPHEN) PO PRN (14:53)
--- NOTE | 2019-08-23 16:12 | IPNPDOC ---
Subjective Date Seen The patient was seen on 08/23/19. Subjective Chief Complaint/HPI Pt is seen in HD today; she reported she is doing better this morning. She is however very concerned that she will fall when she goes home. She would like to have some PT once she is d/c. She is also willing to be assessed and treated for her chronic pain by pain mgmgt. We discussed the possibility that her dizziness is medication-related. We have also discussed neuro assessment to assess and r/o a neuro cause for her frequent falls. General: Reports: Normal Appetite; Denies: Chills, Night Sweats, Fatigue, Malaise Constitutional: Denies: Chills, Fever, Night Sweats Eyes: Denies: Pain ENT: Denies: Head Aches Skin: Denies: Rash Pulmonary: Denies: Dyspnea, Cough Cardiovascular: Denies: Chest Pain, Palpitations, Orthopnea, Paroxysmal Noc. Dyspnea, Lt Headedness Gastrointestinal: Denies: Nausea, Vomiting, Abdominal Pain, Diarrhea, Constipation Genitourinary: Denies: Dysuria, Retention Hematologic: Denies: Bruising Musculoskeletal: Reports: Back Pain, Leg Pain, Joint Pain; Denies: Neck Pain, Muscle Pain, Spasms Neurological: Denies: Weakness, Numbness, Change in speech, Confusion Psych: Reports: Mood Normal Objective Physical Examination General Exam: Positive: Alert, Cooperative, No Acute Distress Eye Exam: Positive: Conjunctiva & lids normal, EOMI; Negative: Sclera icteric ENT Exam: Positive: Atraumatic, Mucous membr. moist/pink, Pharynx Normal Neck Exam: Positive: Supple; Negative: JVD, thyromegaly Chest Exam: Positive: Clear to auscultation, Normal air movement Heart Exam: Positive: Rate Normal, Regular Rhythm, Normal S1, Normal S2; Negative: Gallops, Murmurs, Rubs Telemetry: Positive: No significant arrhythmia Abdomen Exam: Positive: Normal bowel sounds, Soft; Negative: Tenderness Extremity Exam: Positive: Edema (mild pedal edema ); Negative: Clubbing, Cyanosis Skin Exam: Positive: Nl turgor and temperature Neuro Exam: Positive: Normal Speech, Cranial Nerves 3-12 NL Psych Exam: Positive: Anxiety, Oriented x 3 Assessment /Plan Assessment This is a 63-year-old female with a history of chronic atrial fibrillation, intraventricular hemorrhage, not on anticoagulation, fatty liver, chronic obstructive pulmonary disease (COPD), anemia of chronic disease, obstructive sleep apnea, intolerant of continuous positive airway pressure (CPAP), lapsus since intraventricular cerebral bleed, vocal cord dysfunction followed by ENT, atrial fibrillation not on anticoagulant due to bleeding, vestibular neuritis, 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 1. Dizziness - No infectious etiology - possibly 2/2 multiple pain medications; pt had reported being Rx Gabapentin on top of her current regimen and stated that triggered the episodes - MRI of the brain - no cerebellar stroke. - CT of the head - no acute intraventricular hemorrhage - The patient will need physical rehabilitation due to significant weakness and gait imbalance - outpt neuro assessment to r/o neuro cause of dizziness 2. History of intraventricular hemorrhage - will need PT/OT due to dizziness and gait imbalance 3. Atrial fibrillation - No CVA on CT or MRI of the brain - Continue home Metoprolol and telemetry - Not on anticoagulation due to recent ventricular hemorrhage 4. End stage renal disease - continued HD per Dr. Bond 5. Obstructive sleep apnea - cannot tolerate CPAP - elevate HOB, nighttime O2 Dispo: Possible d/c tomorrow with PT and outpt neuro assessment RE: Dizziness. Plan/VTE VTE Prophylaxis Ordered?: Yes (Heparin ) VS, I&O, 24H, Fishbone Vital Signs/I&O Vital Signs Date Time Temp Pulse Resp B/P (MAP) Pulse Ox O2 Delivery O2 Flow Rate FiO2 08/23/19 14:53 98 124/73 08/23/19 14:53 18 08/23/19 14:00 97.4 94 Room Air 08/21/19 12:15 3.0 I&O- Last 24 Hours up to 6 AM 08/23/19 05:59 Intake Total 1520 ml Output Total 400 ml Balance 1120 ml Laboratory Data 24H LABS Laboratory Tests 2 08/22/19 20:22: Bedside Glucose (Misc Panel) 159H 08/23/19 05:33: Nucleated Red Blood Cells % (auto) 0.0, Immature Platelet Fraction 1.4, Anion Gap 9, Glomerular Filtration Rate 5.5L, Calcium Level 7.8L, Parathyroid Hormone (Intact) 827.7H CBC/BMP Laboratory Tests 08/23/19 05:33 Microbiology Microbiology 08/21/19 Blood Culture - Preliminary, Resulted No Growth after 48 hours. All Specime... 08/21/19 Blood Culture - Preliminary, Resulted No Growth after 48 hours. All Specime... Attending Note Attending Note I have reviewed the documentation and assessed the patient independently. I have made necessary revisions as needed. I agree with the findings, assessment and plan stated above. - MRI brain reviewed and is currently negative - Will c/w dialysis as scheduled - Anticipate discharge within 24 hours MICHAEL NEVAREZ PA-C Aug 23, 2019 16:12 FANNY MONROE MD Aug 23, 2019 17:03
[2019-08-23] MEDS: ONDANSETRON 4MG/2ML VIAL (J2405) IV PRN (17:40)
--- NOTE | 2019-08-23 17:48 | REPVR ---
PROCEDURE INFORMATION: Exam: MR Cervical Spine Without Contrast Exam date and time: 08/23/2019 10:35 AM Age: 63 years old Clinical indication: Weakness; Additional info: B/l hand weakness, paresthesias TECHNIQUE: Imaging protocol: Multiplanar magnetic resonance images of the cervical spine without contrast. COMPARISON: MRI-Spine,Cervical without con 01/16/2014 12:36 PM FINDINGS: Vertebrae: Trace 1-2 mm of degenerative retrolisthesis of C5 on C6. No acute fracture seen. There is a C7 hemangioma. Spinal cord: Normal signal. No cord compression. Disc desiccation throughout. Disc height loss and spondylosis is marked at C5-C6; mixed inflammatory and fatty degenerative marrow signal change of the endplates in keeping with Modic 1 and Modic 2 type degeneration. Moderate prevertebral spondylosis with degenerative marrow signal changes incidentally visualized at T3-4. C2-C3: No significant disc disease. No significant spinal stenosis. C3-C4: Slight disc bulge and posterior ligamentum flavum buckling without contribution to central spinal canal stenosis. The neural foramina are patent. C4-C5: Mild facet arthropathy. No stenoses. C5-C6: Retrolisthesis, disc osteophyte complex and ligamentum flavum buckling causing mild central spinal canal stenosis. Uncovertebral and facet arthropathy causing moderate bilateral neural foraminal stenoses. C6-C7: 2 mm central disc protrusion as well as slight posterior ligamentum flavum buckling without contribution to significant central spinal canal stenosis. The neural foramina are patent. C7-T1: Mild uncovertebral and facet arthropathy. No stenoses. Sella: There is a partially empty sella turcica, usually an incidental finding. Thyroid: There is a 1.5 cm right thyroid nodule. Thyroid ultrasound is recommended for further evaluation. Vertebral arteries: Expected flow voids in the vertebral arteries. Soft tissues: Unremarkable. IMPRESSION: 1. There is a 1.5 cm right thyroid nodule. Thyroid ultrasound is recommended for further evaluation. 2. Degenerative disc disease at C5-C6. 3. Mild central spinal canal stenosis at C5-C6. Moderate bilateral neural foraminal stenoses. COMMENT: Consistent with the [employer]'s Incidental Findings Committee white paper (J Am Edouard Radiol 2015): In patients aged 35 years and older with an incidental thyroid nodule equal to or greater than 1.[address], MRI or extrathyroidal US, further evaluation with dedicated thyroid US is recommended for patients with normal life expectancy and without comorbidities. For smaller nodules without suspicious features, no further evaluation or follow up is recommended. Electronically signed by: Anh Dimas On 08/23/2019 17:48:33 PM
--- NOTE | 2019-08-23 18:01 | IPN ---
DATE: 08/23/2019 SUBJECTIVE: Caro is seen and examined this morning in the hemodialysis unit receiving her maintenance treatment. She reports she got up and moved around a little bit today. She is pending MRI spine. She still has to work with physical therapy. She denies chest pain or shortness of breath but she still feels that her balance and coordination are off. Temperature 97.8, pulse 88, respiratory rate 19, blood pressure 125/67, saturating 93-96% on room air. Intake yesterday was 1520. Weight in the bed scale today is not recorded. General: The patient is seen in the hemodialysis unit receiving her treatment. Awake, alert, oriented, comfortable, in no apparent distress. Extraocular muscles are intact. There is mild exophthalmos bilaterally. Pupils are equal and round and reactive to light. Neck is supple. Jugular veins are not elevated. Heart sounds are irregular, S1, S2. There is no edema in the legs nor in the dependent area. Lungs are clear to auscultation. No crackle or rale. Abdomen is soft, obese and nontender. There are bowel sounds. Extremities: Her left upper extremity fistula is in use. Legs are negative for edema, clubbing or cyanosis. Neurologic: She is oriented times three, interactive, conversational. Moves all four extremities on command. Skin: Normal temperature and turgor. LABORATORY DATA: White count 8.1, hemoglobin 10.5, platelet 92, sodium 135, potassium 6.2, BUN 61. INPATIENT MEDICATIONS: Reviewed by myself and no change as compared to yesterday. PROBLEMS: 1. End-stage renal disease on hemodialysis on a Thursday, , Thursday schedule. There is hyperkalemia today which should improve with the dialysis treatment. Her volume status is acceptable. We will remove around 2 liters as tolerated by hemodynamics. She is on a renal diet. 2. Hypertension. Blood pressures are well-controlled on beta eddi. Tachycardia persists and primary team has increased the frequency of metoprolol. 3. Complaint of weakness and some tremors. Her head CT, brain MRI and carotid ultrasound showed no acute changes. She is pending imaging of her spine. She is off of gabapentin and by all reports she did not take it for any prolonged amount of time. She is pending physical therapy evaluation. 4. Anemia of chronic renal failure. Hemoglobin is optimal. 5. Secondary hyperparathyroidism of renal origin with hypocalcemia. Ionized calcium was low yesterday. She continues on calcitriol and calcium carbonate. Parathyroid hormone level is pending. We will adjust the Sensipar dose as needed.
--- NOTE | 2019-08-23 18:07 | REPVR ---
PROCEDURE INFORMATION: Exam: MR Lumbar Spine Without Contrast. Exam date and time: 08/23/2019 10:35 AM Age: 63 years old Clinical indication: Weakness; Additional info: Left leg weakness low back pain TECHNIQUE: Imaging protocol: Multiplanar magnetic resonance images of the lumbar spine without intravenous contrast. COMPARISON: MRI-Spine, L.S. without con 01/06/2019 9:26 PM. [place] - CT ABD PELVIS W/O CONTRAST 08/04/2018 11:01:02 AM. FINDINGS: Vertebrae: Anatomic alignment. No acute fracture seen. Spinal cord: The conus medullaris ends normally. Disc height loss and spondylosis is moderate at L5-S1, [id number] at L4-L5, mild at L3-L4, as before. L1-L2: No significant interval change. No stenoses. L2-L3: No significant interval change. No stenoses. L3-L4: Mild disc osteophyte complex. A subtle component of central soft disc protrusion. Facet arthropathy is mild. The central spinal canal remains patent. Slight right lateral recess narrowing, probably not significant. No significant foraminal stenoses. L4-L5: No significant interval change. Prior left hemilaminectomy. Facet arthropathy is [id number]. There is mild right ligamentum flavum buckling. Mild right neural foraminal stenosis. No significant left neural foraminal narrowing. L5-S1: No significant interval change. Mild to moderate disc osteophyte complex and facet arthropathy. The central spinal canal remains patent. A component of the left lateral canal soft disc protrusion is again demonstrated, this is near the left S1 nerve root. Mild left neural foraminal stenosis. No significant right neural foraminal narrowing. Marrow: Bone marrow signal intensity is heterogeneous on the T1 weighted imaging, a nonspecific finding. Atypical hemangiomas again demonstrated in L1, L3 and S1. Kidneys and ureters: There are bilateral kidney cysts. 10 mm T2 hypointense exophytic right kidney lesion on image 21 of series 1, stable since the prior MRI. This probably represents a hemorrhagic cyst. Soft tissues: Unremarkable. Small periaortic lymph nodes are unchanged. IMPRESSION: 1. Images are mildly motion degraded. 2. No significant interval change. A left lateral canal disc protrusion at L5-S1 may be cause of left S1 distribution radiculopathy. Electronically signed by: Anh Dimas On 08/23/2019 18:07:10 PM
[2019-08-23] MEDS: traZODone 100 MG TAB PO SCH (20:08)
[2019-08-23] MEDS: ROSUVASTATIN 10 MG TAB (CRESTOR) PO SCH (20:08)
[2019-08-23] MEDS: LEVEMIR (INSULIN DETEMIR) 1 UNITS/0.01ML SC SCH (20:10)
[2019-08-23 22:00] VITALS: BP 122/71
[2019-08-24] MEDS: METOPROLOL TART 25 MG TABLET PO SCH ×4 (03:13→20:32)
[2019-08-24] MEDS ORDERED: ACETAMINOPHEN TAB 650MG DOSE (2X325MG) PO ONE (04:00)
[2019-08-24 06:00] VITALS: BP 129/71
[2019-08-24 06:18] LABS: HEMATOCRIT 34.4 % (36.0-47.0); HEMOGLOBIN 10.4 g/dl (12.0-15.5); MEAN CORPUSCULAR HEMOGLOBIN 31.3 pg (27.0-33.0); MEAN CORPUSCULAR HGB CONC 30.2 g/dl (32.0-36.5); MEAN CORPUSCULAR VOLUME 103.6 fl (80.0-96.0); RED BLOOD COUNT 3.32 10^6/uL (4.00-5.40); WHITE BLOOD COUNT 7.2 10^3/uL (4.0-10.0)
[2019-08-24 06:25] LABS: PLATELET COUNT, AUTOMATED 86 10^3/uL (150-450)
[2019-08-24] MEDS: LEVOTHYROXINE 75MCG TABLET (0.075MG) PO SCH (06:30)
[2019-08-24 06:39] LABS: CALCIUM LEVEL 7.9 MG/DL (8.8-10.2); CREATININE FOR GFR 5.04 MG/DL (0.55-1.30); GLOMERULAR FILTRATION RATE 9.2 (>45); POTASSIUM SERUM 4.7 MEQ/L (3.5-5.1)
[2019-08-24] MEDS: OMEPRAZOLE 20 MG CAP PO SCH (08:30)
[2019-08-24] MEDS: CALCIUM CARBONATE 500 MG CHEW U/D PO SCH ×2 (08:30→18:24)
[2019-08-24] MEDS: ASPIRIN 325 MG TAB PO SCH (08:30)
--- NOTE | 2019-08-24 10:43 | IPNPDOC ---
Subjective Date Seen The patient was seen on 08/24/19. Subjective Chief Complaint/HPI Ambulated 500 ft with PT this am - no pain. Has been having some n/v intermittently. No abd pain. No BM in a few days Constitutional: Denies: Chills, Fever Pulmonary: Denies: Dyspnea, Cough Cardiovascular: Denies: Chest Pain, Palpitations, Orthopnea Gastrointestinal: Reports: Nausea, Vomiting, Constipation; Denies: Abdominal Pain, Diarrhea Objective Physical Examination General Exam: Positive: Alert, Cooperative, No Acute Distress Chest Exam: Positive: Clear to auscultation, Normal air movement Heart Exam: Positive: Rate Normal, Regular Rhythm, Normal S1, Normal S2; Negative: Gallops, Murmurs, Rubs Telemetry: Positive: No significant arrhythmia Abdomen Exam: Positive: Normal bowel sounds, Soft; Negative: Tenderness Extremity Exam: Positive: Edema (mild pedal edema ) Neuro Exam: Positive: Normal Speech Psych Exam: Positive: Mental status NL, Oriented x 3 Assessment /Plan Problems (1) Atrial fibrillation Status: Chronic Response to Treatment: Stable Problem Text: Increase metoprolol dose slightly to achieve better rate control Not anticoagulated due to h/o brain hemorrhage in past (2) Stage 5 chronic kidney disease on chronic dialysis Status: Chronic Problem Text: per Nephrology - Next dialysis tomorrow (3) Chronic diastolic (congestive) heart failure Status: Chronic Response to Treatment: Stable (4) Protruded lumbar disc Status: Chronic Response to Treatment: Stable Problem Text: MRI lumbar spine: - No significant interval change. A left lateral canal disc protrusion at L5-S1 may be cause of left S1 distribution radiculopathy. Denies pain today - Ambulating well with PT (5) Impaired ambulation Problem Text: Continue PT/OT - Will likely be safe in 1 - 2 more days Ambulated 500 ft today without pain Lumbar spine MRI: No significant interval change. A left lateral canal disc protrusion at L5-S1 may be cause of left S1 distribution radiculopathy. C-spine MRI: 2. Degenerative disc disease at C5-C6. 3. Mild central spinal canal stenosis at C5-C6. Moderate bilateral neural foraminal stenoses. (6) Thyroid nodule Problem Text: incidentla thyropid nodule on CT - needs outpatient - TE sent to PCP (7) Diabetes mellitus Status: Chronic Plan/VTE VTE Prophylaxis Ordered?: Yes (Heparin ) Plan Therapy: PT, OT Disposition Cont PT - Has dialysis tomorrow so will likely be discharged on thursday VS, I&O, 24H, Fishbone Vital Signs/I&O Vital Signs Date Time Temp Pulse Resp B/P (MAP) Pulse Ox O2 Delivery O2 Flow Rate FiO2 08/24/19 08:30 80 129/71 08/24/19 06:00 97.3 16 94 08/23/19 22:00 Room Air 08/21/19 12:15 3.0 I&O- Last 24 Hours up to 6 AM 08/24/19 05:59 Intake Total 270 ml Output Total 2300 ml Balance -2030 ml Laboratory Data 24H LABS Laboratory Tests 2 08/23/19 20:01: Bedside Glucose (Misc Panel) 149H 08/24/19 05:10: Nucleated Red Blood Cells % (auto) 0.0, Anion Gap 7L, Glomerular Filtration Rate 9.2L, Calcium Level 7.9L CBC/BMP Laboratory Tests 08/24/19 05:10 Microbiology Microbiology 08/21/19 Blood Culture - Preliminary, Resulted No Growth after 72 hours. All specime... 08/21/19 Blood Culture - Preliminary, Resulted No Growth after 72 hours. All specime... TIMO SHERIDAN PA-C Aug 24, 2019 10:43
[2019-08-24 14:00] VITALS: BP 120/72
--- NOTE | 2019-08-24 17:56 | IPN ---
DATE: 08/24/2019 SUBJECTIVE: Caro is seen and examined this morning sitting out of bed to the chair. She reports she felt nauseous and tired after dialysis yesterday. She reports that she has been a lot less tremulous and jittery and has been working with physical therapy. She denies any chest pain, shortness of breath or leg edema. Temperature 97.3, pulse 80, respiratory rate 16, blood pressure 129/71, saturating 94% on room air. Intake yesterday was not recorded. Dialysis removed 1700. Urine output was 500. Emesis yesterday was 100. Weight in the bed scale today is not recorded. General: The patient was seen sitting out of bed to the chair, awake, alert, oriented times three, interactive, conversational in no apparent distress. Extraocular muscles are intact. Ears, nose, and throat are unremarkable. Neck is supple. Jugular veins are not elevated. Heart sounds are regular, S1, S2. There is no edema in the legs. Lungs are clear to auscultation bilaterally. No crackle, rale, or rhonchus. Abdomen is obese, soft, nontender. Extremities show a fistula in the left arm, which is patent with thrill and bruit. Neurologic: She is oriented times three, interactive, conversational. There is no tremor noted of the arms today. Skin: Normal temperature and turgor. LABORATORY DATA: White count 7.2, hemoglobin 10.4, platelets 86. Sodium 138, potassium 4.7. PTH 827. Blood cultures with no growth for 72 hours times two sets. INPATIENT MEDICATIONS: I increased her calcitriol to 0.5 mcg by mouth daily. She received a one-time dose of Tylenol. Her remainder of medications is unchanged from prior. PROBLEMS: 1. End-stage renal disease, on hemodialysis on a Thursday, , Thursday schedule. She was dialyzed yesterday with 1700 mL of fluid removed. Her hyperkalemia is resolved. Her electrolytes and volume status are acceptable. Her fistula is in good use. Continue current dialysis prescription. 2. Chronic diastolic congestive heart failure. Volume status as well compensated and is regulated by three times weekly hemodialysis. Continue oral fluid restriction to 1500 mL daily. 3. Secondary hyperparathyroidism of renal origin with hypocalcemia. Her parathyroid hormone level was elevated at 827. Her calciums have been running low. I increased her calcitriol to 0.5 mcg by mouth daily. 4. Atrial fibrillation. Rate control is improved since the primary team increased the frequency of metoprolol. She is not chronically anticoagulated due to history of intracranial hemorrhage in the past. 5. Gait instability, tremors, clinically improving. Working with physical therapy. MRI of lumbar and cervical spine reviewed without any acute findings. Managed by primary team.
[2019-08-24] MEDS: ROSUVASTATIN 10 MG TAB (CRESTOR) PO SCH (20:31)
[2019-08-24] MEDS: LEVEMIR (INSULIN DETEMIR) 1 UNITS/0.01ML SC SCH (20:31)
[2019-08-24] MEDS: traZODone 100 MG TAB PO SCH (20:31)
[2019-08-24 22:00] VITALS: BP 118/73
[2019-08-25] MEDS: METOPROLOL TART 25 MG TABLET PO SCH ×3 (03:00→15:00)
[2019-08-25] MEDS ORDERED: ACETAMINOPHEN TAB 650MG DOSE (2X325MG) PO ONE (03:00)
[2019-08-25 05:49] LABS: HEMATOCRIT 32.9 % (36.0-47.0); HEMOGLOBIN 10.3 g/dl (12.0-15.5); MEAN CORPUSCULAR HEMOGLOBIN 32.3 pg (27.0-33.0); MEAN CORPUSCULAR HGB CONC 31.3 g/dl (32.0-36.5); MEAN CORPUSCULAR VOLUME 103.1 fl (80.0-96.0); RED BLOOD COUNT 3.19 10^6/uL (4.00-5.40)
[2019-08-25 05:50] LABS: PLATELET COUNT, AUTOMATED 82 10^3/uL (150-450)
[2019-08-25 06:00] VITALS: BP 113/60
[2019-08-25] MEDS: OMEPRAZOLE 20 MG CAP PO SCH (06:08)
[2019-08-25] MEDS: LEVOTHYROXINE 75MCG TABLET (0.075MG) PO SCH (06:08)
[2019-08-25] MEDS: CALCIUM CARBONATE 500 MG CHEW U/D PO SCH (06:09)
[2019-08-25] MEDS: ASPIRIN 325 MG TAB PO SCH (06:09)
[2019-08-25 06:11] LABS: CALCIUM LEVEL 7.7 MG/DL (8.8-10.2); CREATININE FOR GFR 6.52 MG/DL (0.55-1.30); GLOMERULAR FILTRATION RATE 6.9 (>45); POTASSIUM SERUM 5.2 MEQ/L (3.5-5.1)
[2019-08-25] MEDS ORDERED: CALCITRIOL 0.25 MCG CAP (S0169) PO SCH (09:00)
[2019-08-25 09:26] VITALS: BP 123/73
[2019-08-25] MEDS ORDERED: METO50TA7 PO (09:48)
[2019-08-25] MEDS ORDERED: CALC1CAP31 PO (09:48)
[2019-08-25] MEDS ORDERED: ACETAMINOPHEN TAB 650MG DOSE (2X325MG) PO PRN (10:30)
[2019-08-25] MEDS ORDERED: diazePAM 2 MG TAB PO PRN (10:30)
--- NOTE | 2019-08-25 15:16 | IPN ---
DATE OF SERVICE: 08/25/2019 SUBJECTIVE: Caro is seen and examined this morning at the bedside. She denies any overnight events or complaints. She is discharge pending this afternoon after her hemodialysis treatment. Her thyroid workup will be completed outpatient. Temperature 97.5, pulse 87, respiratory rate 18, blood pressure 113/60, saturating 100% on 1 liter nasal cannula. Intake yesterday was not recorded. Weight in the bed scale today is not recorded. Goal fluid removal with dialysis today will be 1.522 liters. General: The patient is seen earlier in the morning at the bedside and then later in the afternoon in the hemodialysis unit awake, alert, oriented, interactive, conversational, in no apparent distress. Extraocular muscles are intact. Mild ophthalmolith, ear, nose and throat are unremarkable. Neck is supple. Jugular veins were not elevated heart sounds are regular S1-S2. There is no edema in the legs. Lungs were clear to auscultation bilaterally. No crackles, rale or rhonchus. Abdomen is soft, obese, nontender. There is a left upper extremity fistula which is presently in use. Neurologic: She is oriented times three, interactive, conversational. Musculoskeletal: Five out of five strength. Skin: Normal temperature and turgor. Psychiatric appropriate mood and effect. LABS: White count 7.0, hemoglobin 10.3, platelet 82, sodium 139, potassium 5.2. INPATIENT MEDICATIONS: Reviewed by myself. She was given Tylenol as needed. Remainder medications are unchanged from prior. PROBLEMS: 1. End-stage renal disease on hemodialysis on a Thursday, , Thursday schedule. She is dialyzed today with 1.5 to 2 liters of fluid to be removed as tolerated by her hemodynamics. There is mild hyperkalemia which will improve with dialysis. Her electrolytes and volume status are otherwise acceptable. Her fistula is in good use. Continue current dialysis prescription. 2. Chronic diastolic congestive heart failure. Volume status as well compensated with three times weekly hemodialysis. Continue oral fluid restriction to 1500 mL daily. 3. Secondary hyperparathyroidism of renal origin with hypocalcemia. PTH was elevated at 827 and her calcitriol dose was increased to 0.5 micrograms by mouth daily. 4. Atrial fibrillation. The patient is not chronically anticoagulated due to history of intracranial hemorrhage in the past. She is fairly well rate controlled with metoprolol every 6 hourly. 5. Anemia of chronic renal failure. Hemoglobin is 10.3 which is optimal and will be managed in the outpatient dialysis unit.
--- NOTE | 2019-08-25 20:54 | DSES ---
DATE OF ADMISSION: 08/21/2019 DATE OF DISCHARGE: 08/25/2019 HISTORY: This is a 63-year-old female patient with end-stage renal disease who is on maintenance dialysis Tuesdays and , who presented to [facility] emergency room (ER) after not feeling well, feeling dizzy. She notes that she recently had bilateral hand pain and cramping along with cramping in the bilateral lower extremities. She was given gabapentin, for which she had taken for two days without dry mouth, so she stopped the medication on her own. She then went to dialysis and then said that she felt thirsty. When she got up the following morning to go to the bathroom, she became upset because there was an empty roll of toilet paper there. She threw it on the ground. She then had to bend over to pick it up to throw it away and she felt dizzy, lightheaded, generally not well. She called 9-1-1 for assistance at that time. Evaluation in the emergency room was relatively unremarkable except for elevated heart rate. She was admitted to the hospital for atrial fibrillation with rapid ventricular response. MRI of the brain was obtained to rule out cerebrovascular accident (CVA), which was negative. She was continued with dialysis management per nephrology. Her metoprolol dose was increased. She has had improvement in her heart rate since then. She has been taking 25 mg of metoprolol tartrate every 6 hours. We will change this to twice a day for anticipation of discharge home. She has been seen by physical therapy yesterday, felt as though she was likely safe, felt that the patient was a bit apprehensive. They agreed to see her again today and are anticipating that she will be safe. She is scheduled for dialysis this afternoon and as long as she does well with dialysis and is cleared by physical therapy, we anticipate she will be discharged home. DISCHARGE DIAGNOSES: Includes: 1. Atrial fibrillation with rapid ventricular rate. 2. End stage renal disease on chronic dialysis. 3. Chronic diastolic congestive heart failure. 4. Chronic back pain with degenerative disc disease. 5. Impaired ambulation. 6. Diabetes mellitus type 2. 7. Morbid obesity. DISCHARGE MEDICATIONS: Include: - calcitriol 0.5 mcg by mouth daily - metoprolol 50 mg by mouth twice a day - aspirin 325 mg by mouth daily - Tums 400 mg by mouth twice a day - Sensipar 30 mg by mouth two times weekly - cyclobenzaprine 5 mg by mouth three times a day as needed muscle spasms - diazepam 4 mg by mouth twice a day as needed for anxiety - vitamin D 50,000 units twice weekly - Kyra-Mirella 1 tablet daily - hydrocodone/acetaminophen 5/325 one tablet twice a day - Lantus 10 units subcutaneous at bedtime - levothyroxine 75 mcg daily - meclizine 25 mg by mouth every 8 hours as needed for dizziness - omeprazole 40 mg daily - MiraLax 17 grams daily as needed for constipation - Crestor 20 mg by mouth at bedtime - Senna 8.6 mg by mouth twice a day as needed for constipation - sodium polystyrene sulfonate 15 grams by mouth once as needed for missed dialysis - Stiolto inhaler spray 2 puffs inhaled daily - trazodone 100 mg by mouth at bedtime - Anoro Ellipta 62.5/25 mcg 1 puff inhaled daily DISCHARGE PLAN: Follow up with her primary care provider (PCP) in one week. Activity as tolerated. Diet is renal.
== END 2019-08-25 17:43 | disposition home or self-care (01) | DRG 308 ==
LOC: M ED 07:58 → EDSEX 07:58 → EDBD 07:58 → M ED INP 11:05 → ENRESERVDT 11:55 → ENRESERVTM 11:55 → M MSPAV 13:22
PROVIDERS: ADMIT General Practice; ATTEND Family Medicine
PROC: 5A1D70Z Performance of Urinary Filtration, Intermittent, Less than 6 Hours Per Day (ICD-10-PCS; principal; 2019-08-23)
DX: I48.91 Unspecified atrial fibrillation (principal); N18.6 End stage renal disease; I50.32 Chronic diastolic (congestive) heart failure; I13.2 Hypertensive heart and chronic kidney disease with heart failure and with stage 5 chronic kidney disease, or end stage renal disease; N25.81 Secondary hyperparathyroidism of renal origin; Z99.2 Dependence on renal dialysis; E11.22 Type 2 diabetes mellitus with diabetic chronic kidney disease; Z79.82 Long term (current) use of aspirin; Z79.4 Long term (current) use of insulin; Z79.899 Other long term (current) drug therapy; Z88.8 Allergy status to other drugs, medicaments and biological substances; E11.40 Type 2 diabetes mellitus with diabetic neuropathy, unspecified; G89.29 Other chronic pain; M51.36 Other intervertebral disc degeneration, lumbar region; Z87.442 Personal history of urinary calculi; F41.9 Anxiety disorder, unspecified; E66.01 Morbid (severe) obesity due to excess calories; H81.20 Vestibular neuronitis, unspecified ear; Z68.32 Body mass index [BMI] 32.0-32.9, adult; R26.89 Other abnormalities of gait and mobility; J44.9 Chronic obstructive pulmonary disease, unspecified; I48.92 Unspecified atrial flutter; D63.1 Anemia in chronic kidney disease; E83.9 Disorder of mineral metabolism, unspecified; G47.33 Obstructive sleep apnea (adult) (pediatric); K76.0 Fatty (change of) liver, not elsewhere classified; M06.9 Rheumatoid arthritis, unspecified; E04.1 Nontoxic single thyroid nodule; E87.5 Hyperkalemia

== ENCOUNTER → 2019-08-30 | Outpatient (CLI) | payer MEDICARE, MEDICAID ==
[~2019-08-30] MED LIST changes: +ANOR1AER INH; +CALC1CAP31 PO; +TUMS500C PO
--- NOTE | 2019-08-30 17:21 | REP ---
Thyroid sonography: History: Thyroid nodule. Comparison is made with images from CT study of the neck from August 03, 2019. Sonographic findings: Heterogeneous multinodular thyroid lobes are seen bilaterally. Right lobe measures 5.7 x 2.0 x 1.9 cm. Left lobe measurements are 5.6 x 1.9 x 2.7 cm. The thyroid isthmus is thickened, 1.1 cm in greatest diameter. In the right mid pole there is a 2.0 x 1.5 x 1.2 cm solid hypoechoic nodule without discernible microcalcifications. It is well defined. On the left, the largest nodule shows peripheral calcification and is 1.5 x 1.4 x 1.4 cm in diameter. This is visible on CT study. In fact, these calcifications in this nodule are visible on June 29, [address] At mid pole, there is a hypoechoic nodule measuring 0.6 cm and medially a 1.1 cm hypoechoic nodule is seen. In the isthmus there is a 0.6 cm nodule. Impression: Multinodular goiter. There is a stable peripherally calcified nodule in the lower pole on the left 1.5 cm in diameter. There is a 2.0 cm nodule in the right lobe.
== END ==
LOC: M WHC 14:44
PROVIDERS: ATTEND Family Medicine
DX: E04.1 Nontoxic single thyroid nodule (principal)

== ENCOUNTER → 2019-09-19 | Outpatient (REF) | payer MEDICARE, MEDICAID | LOC: M LAB REF 15:50 | PROVIDERS: ATTEND Internal Medicine Endocrinology, Diabetes & Metabolism | DX: E04.2 Nontoxic multinodular goiter (principal) ==

== ENCOUNTER 2020-01-17 15:18 | Emergency (ER) | payer MEDICARE, MEDICAID ==
[~2020-01-17] VITALS: Ht 154.9 cm; Wt 78.6 kg
[2020-01-17] MEDS ORDERED: RENATAB5 PO (15:47)
[2020-01-17] MEDS ORDERED: NORCO, ANEXSIA 5/325MG TABLET (HYDROcodone/ACETAMINOPHEN) PO ONE (16:00)
[2020-01-17 16:53] VITALS: BP 109/61
== END 2020-01-17 17:00 | disposition home or self-care (01) ==
LOC: M ED 15:18
DX: M54.42 Lumbago with sciatica, left side (principal); Z79.82 Long term (current) use of aspirin; Z79.899 Other long term (current) drug therapy; Z88.8 Allergy status to other drugs, medicaments and biological substances

== ENCOUNTER 2020-05-06 18:41 | Emergency (ER) | payer MEDICARE, MEDICAID ==
[~2020-05-06] VITALS: Ht 154.9 cm; Wt 79.5 kg
[~2020-05-06 18:41] MED LIST changes: -AMIO200T PO; +AMIO200T3 PO
--- NOTE | 2020-05-06 19:50 | REPVR ---
PROCEDURE INFORMATION: Exam: XR Abdomen, 1 View Exam date and time: 05/06/2020 7:19 PM Age: 64 years old Clinical indication: Abdominal pain; Acute; Additional info: Constipation vs obstruction TECHNIQUE: Imaging protocol: XR of the abdomen. Views: Frontal supine view of the abdomen. 1 View. COMPARISON: CR Abdomen,Flat Upright,PA CHEST 09/26/2018 12:28 PM FINDINGS: Tubes, catheters and devices: External monitoring devices are present. Gastrointestinal tract: Moderate amount of stool in the colon. Intraperitoneal space: 6 mm calcification projects in the left upper quadrant of the abdomen. Its location is uncertain. It projects superior to the left kidney. Bones/joints: Unremarkable. IMPRESSION: Moderate amount of stool in the colon. Electronically signed by: Brynn Koo On 05/06/2020 19:50:21 PM
[2020-05-06 20:00] VITALS: BP 135/66
[2020-05-06] MEDS ORDERED: MAGNESIUM CITRATE 300 ML BTL PO ONE (21:45)
== END 2020-05-06 22:32 | disposition home or self-care (01) ==
LOC: M ED 18:41 → EDBD 18:41 → M ED 22:32
DX: K59.00 Constipation, unspecified (principal); I48.91 Unspecified atrial fibrillation; I51.9 Heart disease, unspecified; I10 Essential (primary) hypertension; K21.9 Gastro-esophageal reflux disease without esophagitis; K57.92 Diverticulitis of intestine, part unspecified, without perforation or abscess without bleeding; N18.6 End stage renal disease; F41.9 Anxiety disorder, unspecified; F32.9 Major depressive disorder, single episode, unspecified; Z79.82 Long term (current) use of aspirin; Z79.899 Other long term (current) drug therapy; Z88.8 Allergy status to other drugs, medicaments and biological substances

== ENCOUNTER 2020-07-22 17:28 | Inpatient (IN) | payer MEDICARE, MEDICAID ==
[~2020-07-22] VITALS: Ht 154.9 cm; Wt 79.6 kg
[2020-07-22] MEDS ORDERED: MORPHINE 4 MG/ML 1ML VIAL/SYRINGE (J2270) IV ONE ×2 (19:30→21:45)
[2020-07-22] MEDS ORDERED: LIDOCAINE 4% CREAM 5GM (LMX4) TOP ONE (19:30)
[2020-07-22 20:13] LABS: BASO % 0.3 % (0.0-1.0); HEMATOCRIT 38.5 % (36.0-47.0); HEMOGLOBIN 11.9 g/dl (12.0-15.5); LYMPH # 1.2 10^3/uL (1.5-5.0); LYMPH % 13.1 % (24.0-44.0); MEAN CORPUSCULAR HEMOGLOBIN 31.4 pg (27.0-33.0); MEAN CORPUSCULAR HGB CONC 30.9 g/dl (32.0-36.5); MEAN CORPUSCULAR VOLUME 101.6 fl (80.0-96.0); MONO # 0.7 10^3/uL (0.0-0.8); MONO % 7.8 % (0.0-5.0); NEUTROPHILS # 7.3 10^3/uL (1.5-8.5); NEUTROPHILS % 78.4 % (36.0-66.0); PLATELET COUNT, AUTOMATED 105 10^3/uL (150-450); RED BLOOD COUNT 3.79 10^6/uL (4.00-5.40); WHITE BLOOD COUNT 9.3 10^3/uL (4.0-10.0)
--- NOTE | 2020-07-22 20:32 | REP ---
INDICATION: hit knee on cupboard, pt tender, pain since COMPARISON: None. TECHNIQUE: AP, lateral, bilateral oblique and sunrise views. FINDINGS: Soft tissue swelling and moderate to large suprapatellar effusion. Osteopenia and degenerative changes are appreciated and limited evaluation for subtle injury. However, subtle nondisplaced injury involving the lateral fibular condyle cannot be excluded. IMPRESSION: Soft tissue swelling and moderate to large suprapatellar effusion. No definite acute fracture. However subtle injury involving the lateral femoral condyle cannot be excluded. <Electronically signed by Geovanni Scanlon > 07/22/202027
[2020-07-22 20:38] LABS: ERYTHROCYTE SEDIMENTATION RATE 63 mm/hr (0-30)
--- NOTE | 2020-07-22 20:43 | REPVR ---
PROCEDURE INFORMATION: Exam: CT Left Lower Extremity Without Contrast, Knee Exam date and time: 07/22/2020 7:57 PM Age: 64 years old Clinical indication: Pain; Knee; Left; Additional info: Swelling, PT tender, decr. Rom, pain out of proportion TECHNIQUE: Imaging protocol: CT of the Left lower extremity without contrast was performed. Exam focused on the knee. Radiation optimization: All CT scans at this facility use at least one of these dose optimization techniques: automated exposure control; mA and/or kV adjustment per patient size (includes targeted exams where dose is matched to clinical indication); or iterative reconstruction. COMPARISON: CR Knee, complete LEFT 07/22/2020 7:20 PM FINDINGS: Bones/joints: There are changes of avascular necrosis in both distal femoral condyles. The cortical surface of the lateral distal femoral condyle is fractured and impacted. No significant joint space narrowing. No erosions or masses are seen. No other fracture is identified. There is a moderate patellofemoral joint effusion. A small focus of air is noted in the posterior aspect of the joint effusion. Normal patellofemoral alignment. Mild subchondral spurring in the medial patellar facet. No significant patellofemoral joint space narrowing. No loose bodies in the joint space. Soft tissues: Mild synovial thickening in the posterior knee joint space and mild surrounding soft tissue edema. IMPRESSION: 1. 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 2. Patellofemoral joint effusion. Mild synovial thickening in the posterior joint and surrounding soft tissue edema may indicate underlying synovitis. Electronically signed by: Wilver Botello On 07/22/2020 20:43:35 PM
[2020-07-22 20:52] LABS: C REACTIVE PROTEIN QUANTITATIV 1.07 MG/DL (0.00-0.30); CALCIUM LEVEL 9.1 MG/DL (8.8-10.2); CREATININE FOR GFR 7.96 MG/DL (0.55-1.30); GLOMERULAR FILTRATION RATE 5.4 (>45); POTASSIUM SERUM 5.2 MEQ/L (3.5-5.1)
[2020-07-22] MEDS ORDERED: METO50TA7 PO (22:52)
[2020-07-22] MEDS ORDERED: TUMS500C PO (22:52)
[2020-07-23] MEDS ORDERED: MORPHINE 4 MG/ML 1ML VIAL/SYRINGE (J2270) IV ONE (00:30)
[2020-07-23 00:38] LABS: CRYSTALS, BODY FLUID NONE SEEN (NONE SEEN); SOURCE, BODY FLUID CRYSTALS LFT KNEE
[2020-07-23 00:39] LABS: SOURCE, BODY FLUID LFT KNEE; SYNOVIAL FLUID COLOR YELLOW (YELLOW)
[2020-07-23 01:52] LABS: SOURCE, BODY FLUID GLUCOSE LFT KNEE; SOURCE, BODY FLUID URIC ACID LFT KNEE; URIC ACID, BODY FLUID 6.3 MG/DL (NOT ESTABLISHED)
[2020-07-23] MEDS ORDERED: ACETAMINOPHEN TAB 650MG DOSE (2X325MG) PO PRN (02:00)
[2020-07-23] MEDS ORDERED: MAALOX 30 ML SUSP *UDC PO PRN (02:00)
[2020-07-23] MEDS ORDERED: MOM 30ML SUSPENSION UDC PO PRN (02:00)
--- NOTE | 2020-07-23 02:02 | HPEPDOC ---
[facility] Medical History & Physical Date of Admission Jul 23, 2020 Date of Service: Jul 23, 2020 Primary Care Physician: Aiden Nieves MD Attending Physician: RINKU ESTRADA MD History and Physical TIME OF SERVICE: 2:44am CHIEF COMPLAINT: knee pain HISTORY OF PRESENT ILLNESS: This 64 yr old F hit her left knee on a cup board about 3 or 4 days ago; immediately thereafter she had transient knee pain. Yesterday while walking with her walker she developed excruciating, 100/10 in severity, sharp left knee pain and difficulties walking. She denies falling or having f/c. 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 examined the patient and performed arthrocentesis of the joint. REVIEW OF SYSTEMS: 12-point review of systems negative except as listed in HPI PAST MEDICAL/ SURGICAL HISTORY: ESRD / anemia of chronic disease / secondary hyperparathyroidism / Left AV fis cameron - TTS COPD Chronic HTN Longstanding persistent A fib / A flutter (not on AC bc of ICH 2017) Bi- atrial enlargement / Chronic HFpEF / D CHF Group 2 vs Group 3 Moderate Pulm HTN Aortic sclerosis PRABHJOT (not compliant CPAP) Chronic vocal cord dysfunction Hypothyroidism Vestibular neuritis / Vertigo DM w neuropathy and retinopathy Fatty Liver Anxiety Class 1 obesity Nephrolithiasis Debility uses walker x 2 Lumbar discectomy x 2 Hysterectomy Ventriculostomy for ICH Urethroscopy w left stent placement and subsequent removal SOCIAL HISTORY: Doesnt smoke drink or use recreational drugs FAMILY HISTORY: Stroke, diabetes, cluster headaches ALLERGIES: Please see below. HOME MEDICATIONS: Please see below. PHYSICAL EXAMINATION: Vital Signs Date Time Temp Pulse Resp B/P (MAP) Pulse Ox O2 Delivery O2 Flow Rate FiO2 07/22/20 17:29 98.4 122 20 121/70 (87) 97 Room Air 07/23/20 01:15 2.0 GENERAL APPEARANCE: well-nourished /well developed NAD HEENT: NC in place / lungs are CTAB on RA CARDIOVASCULAR: tachycardic / NMRG / trace BLE edema LUNGS: CTAB / no coughing or use of accessory muscles ABDOMEN: obese/ soft & NT on palpation MUSCULOSKELETAL: NCAT / left knee tender w palpation INTEGUMENT: skin at left knee warmer than skin at right knee NEUROLOGICAL:CN 2-12 intact /speech not dysarthric PSYCHIATRIC: A&O x3 able to understand and follow commands LABORATORY DATA: 07/22/20 20:05 07/22/20 20:05: Immature Granulocyte % (Auto) 0.4, Neutrophils (%) (Auto) 78.4H, Lymphocytes (%) (Auto) 13.1L, Monocytes (%) (Auto) 7.8H, Eosinophils (%) (Auto) 0.0, Basophils (%) (Auto) 0.3, Neutrophils # (Auto) 7.3, Lymphocytes # (Auto) 1.2L, Monocytes # (Auto) 0.7, Eosinophils # (Auto) 0.0, Basophils # (Auto) 0.0, Nucleated Red Blood Cells % (auto) 0.0, Erythrocyte Sedimentation Rate 63H, Anion Gap 11, Glomerular Filtration Rate 5.4L, Calcium Level 9.1, C-Reactive Protein, Quantitative 1.07H 07/22/20 20:08: POC Glucose (Misc Panel) 131H, POC Sodium (Misc Panel) 135L, POC Potassium (Misc Panel) 5.4H, POC Chloride (Misc Panel) 97L, POC Total CO2 (Misc Panel) 35.0H, POC Blood Urea Nitrogen (Misc Panel 45H, POC Ionized Calcium (Misc Panel) 4.2L, POC Creatinine (Misc Panel) 8.1H, POC Hematocrit (Misc Panel) 37.0L 07/22/20 23:02: Coronavirus (COVID-19)(PCR) NEGATIVE 07/23/20 00:15: Body Fluid WBC (Auto) 71499N, Body Fluid RBC (Auto) 10, Body Fluid Mononuclear Cells % Auto 15.5H, Fluid Polymorphonuclear Cell % Auto 84.5H, Body Fluid Crystals NONE SEEN, Body Fluid Crystal Source LFT KNEE, Body Fluid Glucose Source LFT KNEE, Body Fluid Glucose 43, Body Fluid Uric Acid 6.3, Body Fluid Uric Acid Source LFT KNEE, Synovial Fluid Source LFT KNEE, Synovial Fluid Color YELLOW, Synovial Fluid Appearance TURBID IMAGING: Xray knee IMPRESSION: Soft tissue swelling and moderate to large suprapatellar effusion. No definite acute fracture. However subtle injury involving the lateral femoral condyle cannot be excluded. CT knee IMPRESSION: 1. 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 2. Patellofemoral joint effusion. Mild synovial thickening in the posterior joint and surrounding soft tissue edema may indicate underlying synovitis. MICROBIOLOGY: COVID 19 neg / joint fluid aspiration cx pending. ASSESSMENT: is a 64 yr old w a hx of ESRD, COPD, HTN, HFpEF, PRABHJOT, Hypothyroidism, Anxiety and Obesity who presented w right knee pain and difficulties ambulating and was will be admitted for evaluation & management of a joint effusion, avascular Necrosis of the right femoral condyles, with impacted fracture. PLAN: 1. Joint effusion ESR & CRP are elevated Septic joint r/o bc cell count is <50,000. Gout r/o bc microscopy is neg for crystals Plan: admit to medical floor / f/u gram stain, fluid culture / f/u blood culture bc blood cx may be positive even if synovial fluid cx is neg 2. Avascular Necrosis of the distal femoral condyles, with impacted fracture of the articular surface of the lateral femoral condyle Possibly spontaneous vs 2/2 metastatic dz Plan: bed rest and fall precautions / day time team may consult PT once cleared by Ortho / per d/w f/u xray of hip/pelvis and MRI knee to r/o metastatic dz / Acetaminophen & Dilaudid for pain for now 3. ESRD with anemia of chronic disease & secondary hyperparathyroidism Her usual schedule is TTS but during the holidays it has been changed to MWF. Electrolyte imbalances will resolve w dialysis Plan: renal diet / cinacalcet / Nephro consult for dialysis 4. COPD Plan: hand held inhalers 5. Chronic HTN / Chronic HFpEF Plan: metoprolol 6. Longstanding persistent A fib / A flutter Plan: metoprolol / not on AC bc of ICH 7. Hypothyroidism Plan: levothyroxine 8. 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 PT WAS TOLD TO STOP TAKING VELPHORO AT DIALYSIS YESTERDAY AND TO START TAKING TUMS TWICE A DAY Calcium Carbonate (Tums) 200 Mg Tab.chew, 200 MG PO ACS Cinacalcet (Sensipar) 30 Mg Tab, 30 MG PO 2XW MON/FRI Ergocalciferol (Vitamin D2) (Vitamin D2) 50,000 Units Cap, 50,000 UNIT PO Q2WK EVERY OTHER THURSDAY Folic Acid/Vit B Complex and C (Kyra-Mirella Tablet) 1 Tab Tab, 1 TAB PO DAILY Levothyroxine Sodium (Levothyroxine Sodium) 75 Mcg Tab, 75 MCG PO DAILY Metoprolol Tartrate (Metoprolol Tartrate) 50 Mg Tablet, 50 MG PO BID SKIPS EVENING DOSE DAY BEFORE DIALYSIS (//THU) Omeprazole (Omeprazole) 40 Mg Cap, 40 MG PO DAILY Rosuvastatin Calcium (Crestor) 20 Mg Tab, 20 MG PO QHS Trazodone HCl (Trazodone HCl) 100 Mg Tab, 100 MG PO QHS Umeclidinium Brm/Vilanterol Tr (Anoro Ellipta 62.5-25 Mcg INH) 1 Each Blst.w.dev, 1 PUFF INH DAILY Scheduled PRN Cyclobenzaprine HCl (Cyclobenzaprine HCl) 5 Mg Tab, 5 MG PO TID PRN for MUSCLE SPASMS Diazepam (Diazepam) 2 Mg Tablet, 2 MG PO BID PRN for ANXIETY Hydrocodone/Acetaminophen (Hydrocodone-Acetamin 5-325 mg) 1 Each Tablet, 1 TAB PO BID PRN for PAIN Polyethylene Glycol 3350 (Miralax) 119 Gm Powder, 17 GM PO DAILY PRN for CONSTIPATION dilute in 8 ounces of water or juice Sennosides (Senna) 8.6 Mg Tablet, 8.6 MG PO BID PRN for CONSTIPATION Allergies Coded Allergies: Quinolones (Verified Allergy, Severe, 08/03/19) A-FIB/CHADSVASC A-FIB History Current/History of A-Fib/PAF?: No Current PO Anticoag Therapy: RINKU Tavares MD Jul 23, 2020 02:02
[2020-07-23] MEDS ORDERED: CYCLOBENZAPRINE 5MG TABLET PO PRN (03:30)
[2020-07-23] MEDS ORDERED: SENNA 8.6 MG TAB (SENOKOT) PO PRN (03:30)
[2020-07-23] MEDS ORDERED: diazePAM 2 MG TAB PO PRN (03:30)
[2020-07-23] MEDS: HYDROMORPHONE HCL 0.5 MG/ 0.5 ML SYRINGE (J1170 PER 1) IV PRN ×3 (05:17→19:20)
[2020-07-23 05:47] LABS: HEMATOCRIT 34.4 % (36.0-47.0); HEMOGLOBIN 10.4 g/dl (12.0-15.5); MEAN CORPUSCULAR HEMOGLOBIN 31.3 pg (27.0-33.0); MEAN CORPUSCULAR HGB CONC 30.2 g/dl (32.0-36.5); MEAN CORPUSCULAR VOLUME 103.6 fl (80.0-96.0); RED BLOOD COUNT 3.32 10^6/uL (4.00-5.40); WHITE BLOOD COUNT 6.6 10^3/uL (4.0-10.0)
[2020-07-23] MEDS: HEPARIN SOD (PORCINE) 5000UNITS/ML 1ML VIAL/SYRINGE SQ SCH ×4 (05:52→21:10)
[2020-07-23] MEDS: LEVOTHYROXINE 75MCG TABLET (0.075MG) PO SCH (05:52)
[2020-07-23 06:08] LABS: PLATELET COUNT, AUTOMATED 90 10^3/uL (150-450)
[2020-07-23 06:22] LABS: CALCIUM LEVEL 8.7 MG/DL (8.8-10.2); CREATININE FOR GFR 8.76 MG/DL (0.55-1.30); GLOMERULAR FILTRATION RATE 4.9 (>45); POTASSIUM SERUM 5.1 MEQ/L (3.5-5.1)
--- NOTE | 2020-07-23 07:57 | REP ---
INDICATION: avascular necrosis of fem condyle r/o mets. COMPARISON: None. TECHNIQUE: AP view of the pelvis with neutral and frog-lateral views of the right and left hip. FINDINGS: Pelvis and bilateral hips appear relatively normal for age and symmetric. Mild degenerative changes include subtle increased sclerosis to the acetabular roof minimal joint space narrowing. The proximal femurs demonstrate normal contour without underlying subchondral sclerosis/heterogeneity or cystic changes to suggest avascular necrosis. Surrounding soft tissues are unremarkable. IMPRESSION: Essentially age-appropriate pelvis/bilateral hips radiograph series. <Electronically signed by Geovanni Scanlon > 07/23/20 [id number]
--- NOTE | 2020-07-23 07:58 | REP ---
INDICATION: avascular necrosis of fem condyle r/o mets COMPARISON: None. TECHNIQUE: AP, lateral views of the left proximal to mid femur. FINDINGS: Degenerative changes at the distal femur/knee. Lateral radiograph demonstrates moderate to large suprapatellar effusion. IMPRESSION: Suprapatellar effusion. Degenerative changes at the knee.. No acute fracture of the visualized femoral diaphysis or distal metaphysis noted. <Electronically signed by Geovanni Scanlon > 07/23/20 [id number]
[2020-07-23 08:00] VITALS: BP 105/64
[2020-07-23] MEDS: CALCIUM CARBONATE 500 MG CHEW U/D PO SCH ×2 (08:37→17:32)
[2020-07-23] MEDS: COMBIVENT RESPIMAT 100-20MCG INHALER 4GM INH SCH ×3 (08:40→19:57)
[2020-07-23] MEDS ORDERED: CINACALCET 30 MG TAB (SENSIPAR) PO SCH (09:00)
--- NOTE | 2020-07-23 09:12 | CR ---
CONSULTATION DATE: 07/22/2020 TIME: 11 p.m. SERVICE CONSULTED: Orthopedic Surgery SURGEON CONSULTED: Jamie France M.D. HISTORY OF PRESENT ILLNESS: This is a 64-year-old female who presented with left knee pain to the [facility]. The patient had left knee radiographs obtained as well as a CT scan of the left knee prior to the orthopedic service being consulted. 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 However, her initial lab values (white blood cell 9.3, ESR 63, CRP 1.07) were slightly elevated. Given the fact the patient had past medical history consistent with end-stage renal disease with dialysis, COPD, CHF, hypertension and history of stroke, a septic knee could not be ruled out without a knee aspiration. Given her unclear diagnosis, orthopedic surgery was consulted and further workup of the left knee ensued. PAST MEDICAL HISTORY: End-stage renal disease with dialysis, COPD, CHF, hypertension and stroke. PAST SURGICAL HISTORY: Hysterectomy. MEDICATION ALLERGIES: QUINOLONE ANTIBIOTICS. CURRENT MEDICATIONS: Please see ER medication reconciliation list. SOCIAL HISTORY: The patient is a non-IV drug user. She is a smoker of unknown pack year history and a nonalcohol user. REVIEW OF SYSTEMS: A 14 point review of systems was negative unless as otherwise described in the HPI above. PHYSICAL EXAMINATION: Alert to person, time and place. Left lower extremity: The patient had a left lower extremity that was neurovascularly intact. The patient had a 2+ dorsalis pedis and posterior tibial arterial pulse, 5/5 motor strength in the EHL, FHL, tibialis anterior, gastroc/soleus and peroneal musculature. Sensation was intact to light touch to the deep and superficial peroneal, sural, saphenous and tibial nerves distributions. The patient's left knee range of motion went from full extension to approximately 80 degrees of knee flexion. The patient appeared to have a moderate effusion of the left knee. There were no cellulitic changes. IMAGING: The patient's left knee radiographs demonstrate what appeared to be some radiolucencies of the lateral, medial, distal femur, epicondyles, consistent with possible spontaneous osteonecrosis of the knee. CT scan of the left knee demonstrated some subchondral changes consistent with either spontaneous osteonecrosis of the knee or possible metastatic disease with subchondral insufficiencies of the distal femur of the lateral and medial condyles. LABORATORY DATA: White blood cell: 9.3, ESR 63, CRP 1.07. Synovial labs: Synovial white blood cell was 11,400, negative crystals, pending culture and gram stain. IMPRESSION: This is a 64-year-old female with likely left distal femur SONK or spontaneous osteonecrosis of the knee with concomitant osteoarthritis of the knee. However, a metastatic process cannot be ruled out given the initial radiographs were isolated to the left knee. 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 However, it is really the workup and further imaging to ensue. Given the fact that we performed a left knee aspiration under sterile technique yielding white blood cell count of 11,400, negative crystals, she most likely does not have a septic knee or acute gout of the left knee. Further advanced imaging to include a left MRI without contrast would further clarify and characterize her left knee pathology, leaving her nonweightbearing to the left lower extremity. In addition to a left knee MRI, would also recommend left full-length femur x-ray as well as an AP pelvis and a left hip x-ray in order to interrogate the full length of bone to ensure that there are no other possible metastatic lesions. If there is continued concern for a possible metastatic cause, I would recommend the admitting medicine team perform a more thorough workup of metastatic disease to include labs (CMC, CMP, serum calcium, magnesium phosphate, albumin, LDH, ALP), PT, PT-PTT/INR, SPEP (TSH, free T4), PTH and possible CT of the chest, abdomen and pelvis. If MRI is consistent with a spontaneous osteonecrosis of the knee, the patient can be treated nonoperatively initially with NSAIDs, a trial of nonweightbearing. However, the patient may also be an arthroplasty candidate given a spontaneous osteonecrosis of the knee diagnosis. 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 However, further workup is required to rule out possible metastatic process of the left distal femur. Please consult orthopedic surgery with any further questions regarding this interesting consult and pending advanced imaging of the knee to include a left knee MRI.
[2020-07-23 12:03] LABS: BODY FLUID RHEUMATOID SCREEN NEGATIVE (NEGATIVE)
[2020-07-23 12:50] VITALS: BP 122/72
--- NOTE | 2020-07-23 13:24 | CR ---
NEPHROLOGY CONSULTATION DATE OF CONSULT: 07/23/2020 REQUESTING CLINICIAN: Alexia Zarco MD. REASONS FOR CONSULTATION: To assist in the management of end-stage renal disease. HISTORY OF PRESENT ILLNESS: Ms. Carnes is a 64-year-old female with known history of diabetes, hypertension, COPD and congestive heart failure. She has been on maintenance hemodialysis for several years and has been at her baseline usual function. She presented to the Emergency Room with severe knee pain and was found to have avascular necrosis of medial condyle of her femur. She is admitted for pain control and further orthopedic evaluation. Patient is due for dialysis today and a nephrology consultation was requested. PAST MEDICAL HISTORY: Significant for: 1. Long standing diabetes. 2. Hypertension. 3. COPD. 4. Congestive heart failure. 5. Atrial fibrillation and flutter. 6. History of end-stage renal disease. 7. Secondary hyperparathyroidism. 8. Anemia. 9. History of obstructive sleep apnea. 10. History of aortic sclerosis. 11. Pulmonary hypertension. 12. Hypothyroidism. 13. History of vestibular neuritis and vertigo. 14. History of fatty liver. 15. Anxiety. 16. History of nephrolithiasis. PAST SURGICAL HISTORY: Significant for: 1. section. 2. Lumbar discectomy. 3. Hysterectomy. 4. Ventriculostomy for an intracranial hemorrhage. 5. Urethroscopy with left stent placement and removal. 6. AV fistula creation. FAMILY HISTORY: Significant of diabetes and stroke. PERSONAL AND SOCIAL HISTORY: Patient has no history of smoking, alcohol or drug use. ALLERGIES: Patient has allergy to QUINOLONES. MEDICATIONS: Home medications include: 1. Aspirin 325 mg daily. 2. Calcium carbonate 400 mg daily. 3. Cinacalcet 30 mg twice a week. 4. Vitamin D 50,000 units every 2 weeks. 5. Multivitamin 1 tablet daily. 6. Levothyroxine 75 mcg daily. 7. Metoprolol 50 mg twice a day. 8. Omeprazole 40 mg daily. 9. Crestor 20 mg daily. 10. Trazodone 100 mg daily. 11. Anoro Ellipta 1 inhalation daily. 12. Hydrocodone for pain. 13. Diazepam 2 mg p.r.n. for anxiety. 14. Cyclobenzaprine 5 mg p.r.n. for back pain. REVIEW OF SYSTEMS: Patient denies any fever or chills. She denies any fall at home. Ears, nose and throat: Unremarkable. She does have a history of vertigo in the past. Cardiovascular system: Significant for chronic dyspnea with pulmonary hypertension and congestive heart failure. Respiratory system: Significant for COPD and obstructive sleep apnea. She is usually short of breath on Thursday morning. GI system: Negative for vomiting or diarrhea. system: Negative for dysuria or hematuria. She has a prior history of kidney stones. Musculoskeletal system: As per History of Present Illness. She has chronic back pain and now has developed new severe pain in her left knee. Hematological system: Significant for chronic anemia. Psychosocial system: Significant for anxiety and depression. Neurological system: Significant for peripheral neuropathy and prior history of intracranial hemorrhage. Skin: Negative for rash or ulcers. PHYSICAL EXAMINATION: Temperature 99 degrees Fahrenheit, heart rate 102 per minute and respiratory rate 20 per minute. Blood pressure 105/64 mmHg and oxygen saturation 92% on room air. Head: Atraumatic. Pupils are equal and reactive to light and sclerae is anicteric. Ears, nose and throat are unremarkable. Neck: Supple and JVD is not abnormally elevated. Heart: Tachycardia with irregular rhythm. Lungs: Sounds are diminished bilaterally. Abdomen: Soft and nontender and bowel sounds are normal. Extremities: Without any cyanosis or clubbing. Left knee is quite tender, but no redness. There is no edema on her lower legs. Left arm AV fistula is patent and being used for dialysis this morning. LABORATORY DATA: WBC count 6.6, hemoglobin 10.4, hematocrit 34.4, platelets 90,000. Sodium 138, potassium 5.1, CO2 30, BUN 38, creatinine 8.76, glucose 99, calcium 8.7. Synovial fluid from her left knee showed 11,490 WBCs and 10 RBCs. PROBLEMS AND PLAN: 1. End-stage renal disease: Patient is due for dialysis and is already being dialyzed. She is tolerating her dialysis treatment well. 2. Congestive heart failure: Volume status is only slightly decompensated and will be corrected with dialysis. We will try to remove about 2 liters of fluid. 3. Hyperkalemia: She had a potassium level of 5.2 last evening, it is only 5.1 today. This will improve with dialysis as we are going to use a 2 mEq potassium bath. 4. Anemia: Stable and does not need any urgent intervention. 5. Left knee pain: She is felt to have avascular necrosis. Synovial fluid looks somewhat concerning. I will defer to orthopedics for recommendation about antibiotic use. I am not sure if this is inflammatory or infectious. 6. Diastolic congestive heart failure: Volume status is reasonably well compensated. She does get atrial fibrillation and flutter with worsening tachycardia during dialysis. We will try to remove as much fluid as she can tolerate. She is not a candidate for anticoagulation due to prior history of intracranial bleed. Thank you for involving me in the care of Ms. Carnes. I will follow her along with you.
[2020-07-23] MEDS: METOPROLOL TART 50 MG TAB PO SCH ×2 (13:31→20:16)
--- NOTE | 2020-07-23 14:27 | IPNPDOC ---
Text Note Date of Service The patient was seen on 07/23/20. NOTE Subjective: Patient continues to complain of left knee soreness and pain Objective: GENERAL APPEARANCE: NAD HEENT: no scleral icterus, no JVD, EOMI CARDIOVASCULAR: S1S2 LUNGS: CTA ABDOMEN: soft & not tender w palpitation MUSCULOSKELETAL: no cyanosis, limited flexion and extension of the left knee, left knee swollen INTEGUMENT: no generalized palor NEUROLOGICAL: cranial nerve function from 2-12 intact intact, follows commands, speech not dysarthric Assessment and plan Patient is 64 years old female with past mental history of anxiety, nephrolithiasis, end-stage renal diseases presented to the hospital with swollen left knee. 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 Dr. France examined the patient and performed arthrocentesis of the joint, which was negative for bacterial infection. Left knee joint effusion ESR & CRP are elevated CT scan of the left knee demonstrated some subchondral changes consistent with either spontaneous osteonecrosis of the knee or possible metastatic disease with subchondral insufficiencies of the distal femur of the lateral and medial c ondyles. Septic joint r/o bc cell count is <50,000. There is concern for metastatic process. Orthopedic team recommended left full-length femur x-ray as well as an AP pelvis and a left hip x-ray in order to interrogate the full length of bone to ensure that there are no other possible metastatic lesions Await MRI results Pain management Avascular Necrosis of the distal femoral condyles Superimposed with impacted fracture of the articular surface of the lateral femoral condyle Nonweightbearing for a left extremity End-stage renal diseases with anemia of chronic disease & secondary hyperparathyroidism Continue dialysis, nephrology team follows her cinacalcet COPD Not in acute exacerbation Continue home inhalers Chronic HTN / Chronic HFpEF not in acute exacerbation Blood pressure under control Continue home cardioprotective medications Longstanding persistent A fib / A flutter metoprolol / not on AC bc of ICH Hypothyroidism levothyroxine Anxiety Plan: diazepam Class 1 obesity w PRABHJOT PRABHJOT (not compliant CPAP) nocturnal O2 Thrombocytopenia 2/2 reduced thrombopoietin production by the liver / Fatty Liver f/u w PCP for surveillance US of the liver to screen for liver cirrhosis VS,Fishbone, I+O VS, Fishbone, I+O Laboratory Tests 07/22/20 20:05 07/23/20 05:38 Vital Signs Date Time Temp Pulse Resp B/P (MAP) Pulse Ox O2 Delivery O2 Flow Rate FiO2 07/23/20 09:50 20 Nasal Cannula 2.0 07/23/20 08:00 99.4 103 105/64 (78) 92 NEDRA RIVAS Jul 23, 2020 14:27
--- NOTE | 2020-07-23 15:02 | REP ---
INDICATION: avascular necrosis of femoral condyles r/o mets. COMPARISON: Comparison CT study 07/22/2020 showing evidence of avascular necrosis.. TECHNIQUE: Axial, coronal, and sagittal imaging planes utilized. T1, proton density, and T2 weighted scans are included with without fat saturation in the usual fashion. FINDINGS: T2 weighted study confirms the presence of a large suprapatellar joint effusion. There are medial and lateral suprapatellar plica which are fairly small. Some motion artifact is seen on the T2 weighted sagittal images. No loose body is apparent. There is a fairly large area of avascular necrosis in the medial femoral condyle without evidence of flattening or collapse. There is a smaller area of avascular necrosis in the subcortical bone of the lateral femoral condyle and there is flattening and partial collapse as seen on the CT study. There is a complex tear in the body and anterior horn of the lateral meniscus. No medial meniscal tear is seen. No displaced meniscal material is seen. Anterior and posterior cruciate ligaments appear to be intact. Patellar and quadriceps tendon 7 intact appearance. There is no evidence of medial or lateral collateral ligament disruption. There is moderate chondromalacia patella. No Herman's cyst. IMPRESSION: Extensive areas of avascular necrosis in the medial and lateral femoral condyle. There is fragmentation and collapse of the lateral femoral condyle. A large joint effusion is present. There is a complex tear in the body of the lateral meniscus. Patellar chondromalacia is seen. <Electronically signed by Bebeto Mauricio > 07/23/20 [id number]
[2020-07-23] MEDS: traZODone 100 MG TAB PO SCH (20:15)
[2020-07-23] MEDS: ROSUVASTATIN 10 MG TAB (CRESTOR) PO SCH (20:15)
[2020-07-23 22:00] VITALS: BP 114/71
[2020-07-24] MEDS: COMBIVENT RESPIMAT 100-20MCG INHALER 4GM INH SCH ×4 (01:22→19:54)
[2020-07-24 06:00] VITALS: BP 103/65
[2020-07-24 06:18] LABS: HEMATOCRIT 35.2 % (36.0-47.0); HEMOGLOBIN 10.6 g/dl (12.0-15.5); MEAN CORPUSCULAR HEMOGLOBIN 30.9 pg (27.0-33.0); MEAN CORPUSCULAR HGB CONC 30.1 g/dl (32.0-36.5); MEAN CORPUSCULAR VOLUME 102.6 fl (80.0-96.0); RED BLOOD COUNT 3.43 10^6/uL (4.00-5.40); WHITE BLOOD COUNT 7.7 10^3/uL (4.0-10.0)
[2020-07-24 06:25] LABS: PLATELET COUNT, AUTOMATED 91 10^3/uL (150-450)
[2020-07-24] MEDS: LEVOTHYROXINE 75MCG TABLET (0.075MG) PO SCH (06:34)
[2020-07-24] MEDS: HEPARIN SOD (PORCINE) 5000UNITS/ML 1ML VIAL/SYRINGE SQ SCH ×3 (06:37→21:49)
[2020-07-24 06:42] LABS: CALCIUM LEVEL 8.9 MG/DL (8.8-10.2); CREATININE FOR GFR 7.11 MG/DL (0.55-1.30); GLOMERULAR FILTRATION RATE 6.2 (>45); POTASSIUM SERUM 4.5 MEQ/L (3.5-5.1)
[2020-07-24] MEDS: METOPROLOL TART 50 MG TAB PO SCH ×2 (08:13→21:00)
[2020-07-24] MEDS: CALCIUM CARBONATE 500 MG CHEW U/D PO SCH ×2 (08:13→16:59)
[2020-07-24 12:38] VITALS: O2SAT 92
[2020-07-24 14:00] VITALS: BP 103/67
[2020-07-24] MEDS: HYDROMORPHONE HCL 0.5 MG/ 0.5 ML SYRINGE (J1170 PER 1) IV PRN (17:00)
--- NOTE | 2020-07-24 18:27 | IPNPDOC ---
Date Seen The patient was seen on 07/24/20. Progress Note SUBJECTIVE: Discussed MRI result with ortho, WBAT with walker once pain controlled. Adding tramadol, percocet PRN for severe pain. PT/OT to continue. She states pain of left knee improved, GS of fluid neg. Objective: GENERAL APPEARANCE: NAD, resting in bed HEENT: no scleral icterus, no JVD, EOMI CARDIOVASCULAR: S1S2 LUNGS: CTA ABDOMEN: soft & not tender w palpitation MUSCULOSKELETAL: no cyanosis, improved flexion and extension of the left knee, left knee swelling improved significantly, mildly tender to palpation INTEGUMENT: no generalized palor NEUROLOGICAL: cranial nerve function from 2-12 intact intact, follows commands, speech not dysarthric LAB: please see below IMAGING: MRI left knee: Extensive areas of avascular necrosis in the medial and lateral femoral condyle. There is fragmentation and collapse of the lateral femoral condyle. A large joint effusion is present. There is a complex tear in the body of the lateral meniscus. Patellar chondromalacia is seen. 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 PLAN: Left knee pain likely MF to left medial and lateral femoral condyle avascular necrosis with left knee joint effusion, left complex tear of lateral meniscus -Please see below for individual treatment plans Left medial and lateral femoral condyle avascular necrosis with left knee joint effusion -MRI above -Effusion drained, fluid cx NG, minimal WBC with polys not indicative of infection per ortho -Elevated CRP, ESR likely skewed with chronic medical issues -Per ortho, will likely need left total knee replacement down the line if she is candidate -For now, WBAT with walker only, pain medications (tramadol, percocet), PT/OT -ARU looking at patient for continued rehab -Will need f/u with [facility] at discharge. Left complex tear of lateral meniscus -At patient's age, not candidate for surgery -C/w treatment above and f/u End-stage renal diseases with anemia of chronic disease & secondary hyperparathyroidism -HD weekly -Nephrology following. 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 Plan is ARU vs. home. VS, I&O, 24H, Fishbone Vital Signs/I&O Vital Signs Date Time Temp Pulse Resp B/P (MAP) Pulse Ox O2 Delivery O2 Flow Rate FiO2 07/24/20 17:10 18 07/24/20 14:00 98.6 114 103/67 (79) 97 Nasal Cannula 2.0 I&O- Last 24 Hours up to 6 AM 07/24/20 06:00 Intake Total 180 ml Output Total 1257 ml Balance -1077 ml Laboratory Data 24H LABS Laboratory Tests 2 07/24/20 05:52: Nucleated Red Blood Cells % (auto) 0.0, Immature Platelet Fraction 3.6, Anion Gap 7L, Glomerular Filtration Rate 6.2L, Calcium Level 8.9 CBC/BMP Laboratory Tests 07/24/20 05:52 Microbiology Microbiology 07/23/20 Blood Culture - Preliminary, Resulted No growth after 24 hours . All specim... 07/23/20 Gram Stain - Final, Resulted 07/23/20 Body Fluid Culture, Resulted Pending Current Medications Current Medications Medications (Trade) Dose Ordered Sig/Erica Route PRN Reason Start Time Stop Time Status Last Admin Dose Admin Acetaminophen (Tylenol Tab) 650 mg Q4H PRN PO PAIN OR FEVER 07/23/20 02:00 Al Hydrox/Mg Hydrox/Simethicone (Mylanta) 30 ml DAILY PRN PO DYSPEPSIA 07/23/20 02:00 Albuterol/ Ipratropium (Combivent Respimat 100-20mcg) 1 puff RQ6H INH 07/23/20 08:00 07/24/20 14:13 Calcium Carbonate (Tums) 500 mg BID@0800,1800 PO 07/23/20 08:00 07/24/20 16:59 Cinacalcet (Sensipar) 30 mg MoFr@0900 PO 07/23/20 09:00 07/23/20 15:00 Cyclobenzaprine HCl (Flexeril) 5 mg TID PRN PO MUSCLE SPASMS 07/23/20 03:30 Diazepam (Valium) 2 mg BID PRN PO ANXIETY 07/23/20 03:30 07/23/20 13:31 Heparin Sodium (Porcine) (Heparin) 5,000 units Q8H SQ 07/23/20 06:00 07/24/20 14:06 Home Med (Med Rec Complete!) ASDIRECTED XX 07/22/20 23:00 07/22/20 22:54 DC Hydromorphone HCl (Dilaudid) 0.3 mg Q3HP PRN IV MILD PAIN (PS 1-4) 07/23/20 03:15 07/24/20 17:00 Levothyroxine Sodium (Synthroid) 75 mcg DAILY@0600 PO 07/23/20 06:00 07/24/20 06:34 Magnesium Hydroxide (Milk Of Magnesia) 30 ml DAILY PRN PO CONSTIPATION 07/23/20 02:00 Metoprolol Tartrate (Lopressor) 50 mg BID PO 07/23/20 09:00 07/24/20 08:13 Rosuvastatin Calcium (Crestor) 20 mg QHS PO 07/23/20 21:00 07/23/20 20:15 Senna (Senokot) 1 tab BID PRN PO CONSTIPATION 07/23/20 03:30 Trazodone HCl (Desyrel) 100 mg QHS PO 07/23/20 21:00 07/23/20 20:15 Allergies Coded Allergies: Quinolones (Verified Allergy, Severe, 08/03/19) Noa Bhakta MD Jul 24, 2020 18:27
[2020-07-24] MEDS ORDERED: traMADol 50 MG TAB PO PRN (18:30)
[2020-07-24] MEDS ORDERED: ACETAMINOPHEN TAB 650MG DOSE (2X325MG) PO PRN (18:30)
[2020-07-24] MEDS: traZODone 100 MG TAB PO SCH (21:45)
[2020-07-24] MEDS: ROSUVASTATIN 10 MG TAB (CRESTOR) PO SCH (21:45)
[2020-07-24 22:00] VITALS: BP 106/68
[2020-07-24 23:00] VITALS: O2SAT 91
[2020-07-25] MEDS: PERCOCET 5MG/325MG TAB PO PRN ×3 (01:07→17:58)
[2020-07-25] MEDS: COMBIVENT RESPIMAT 100-20MCG INHALER 4GM INH SCH ×4 (02:00→19:42)
[2020-07-25 06:00] VITALS: BP 108/69
[2020-07-25 06:37] LABS: HEMATOCRIT 32.6 % (36.0-47.0); HEMOGLOBIN 10.1 g/dl (12.0-15.5); MEAN CORPUSCULAR HEMOGLOBIN 31.7 pg (27.0-33.0); MEAN CORPUSCULAR VOLUME 102.2 fl (80.0-96.0); RED BLOOD COUNT 3.19 10^6/uL (4.00-5.40); WHITE BLOOD COUNT 5.8 10^3/uL (4.0-10.0)
[2020-07-25] MEDS: LEVOTHYROXINE 75MCG TABLET (0.075MG) PO SCH (06:42)
[2020-07-25] MEDS: CALCIUM CARBONATE 500 MG CHEW U/D PO SCH ×2 (06:43→17:58)
[2020-07-25 06:46] LABS: PLATELET COUNT, AUTOMATED 94 10^3/uL (150-450)
[2020-07-25] MEDS: HEPARIN SOD (PORCINE) 5000UNITS/ML 1ML VIAL/SYRINGE SQ SCH (06:46)
[2020-07-25 07:21] LABS: ALBUMIN 3.2 GM/DL (3.2-5.2); BILIRUBIN,TOTAL 0.4 MG/DL (0.2-1.0); CALCIUM LEVEL 8.9 MG/DL (8.8-10.2); CREATININE FOR GFR 8.99 MG/DL (0.55-1.30); GLOMERULAR FILTRATION RATE 4.7 (>45); POTASSIUM SERUM 4.6 MEQ/L (3.5-5.1); TOTAL PROTEIN 6.7 GM/DL (6.4-8.2)
[2020-07-25 08:09] VITALS: O2SAT 100
[2020-07-25] MEDS: METOPROLOL TART 50 MG TAB PO SCH ×2 (09:00→20:03)
--- NOTE | 2020-07-25 13:38 | IPN ---
PROGRESS NOTE DATE: 07/25/2020 SUBJECTIVE: Mrs. Carnes is seen this morning during hemodialysis. She is feeling better and reports that her left knee pain has improved compared with the day before yesterday. She denies any dyspnea, chest pain, nausea or vomiting. She has no fevers or chills. She is still not able to stand up on her left leg due to severe pain and has been advised for nonweightbearing by orthopedics. PHYSICAL EXAMINATION: GENERAL: The patient is awake and alert and without any acute distress. VITAL SIGNS: Temperature 97.9 degrees Fahrenheit, heart rate 85 per minute and respiratory rate 16 per minute. Blood pressure 108/70 mmHg and oxygen saturation 100% on 2 liters of oxygen. HEENT: Head is atraumatic. NECK: Supple and without JVD or thyroid enlargement. HEART: Heart sounds are tachycardic and irregular in rhythm. LUNGS: Clear to auscultation. ABDOMEN: Soft and nontender and bowel sounds are normal. EXTREMITIES: Without any cyanosis or clubbing. She has moderate effusion in her left knee with minimal tenderness. NEUROLOGIC: She is awake, alert, and at her baseline mentation. PROBLEMS: 1. End-stage renal disease. The patient is being dialyzed today and she is tolerating her dialysis treatment very well. 2. Anemia. Her anemia is stable and does not need any urgent intervention. 3. Congestive heart failure. Volume status is reasonably well compensated and we are moving about 1.5 to 2.0 liters of fluid as tolerated. 4. Left knee avascular necrosis of femoral condyle. The patient is likely to require acute rehab. She has been unsteady on her feet even prior to this with frequent falls at home without any rehab.
[2020-07-25 14:00] VITALS: BP 113/70
--- NOTE | 2020-07-25 15:29 | IPNPDOC ---
Date Seen The patient was seen on 07/25/20. Progress Note SUBJECTIVE: PT to evaluate today with WBAT with walker, patient as in HD first part of day. Pain regimen seems to be working, tolerating well. Denies chest pain, SOB, fevers, chills. OBJECTIVE: PHYSICAL EXAM: VS: Please see below GENERAL APPEARANCE: NAD, resting in bed HEENT: no scleral icterus, no JVD, EOMI CARDIOVASCULAR: S1S2 LUNGS: CTA ABDOMEN: soft & not tender w palpitation MUSCULOSKELETAL: no cyanosis, improved flexion and extension of the left knee, left knee swelling continues to improve, no tenderness to palpation INTEGUMENT: normal skin turgor, intact NEUROLOGICAL: cranial nerve function from 2-12 intact intact, follows commands, speech not dysarthric LAB: please see below IMAGING: MRI left knee: Extensive areas of avascular necrosis in the medial and lateral femoral condyle. There is fragmentation and collapse of the lateral femoral condyle. A large joint effusion is present. There is a complex tear in the body of the lateral meniscus. Patellar chondromalacia is seen. 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 PLAN: Left knee pain likely MF to left medial and lateral femoral condyle avascular necrosis with left knee joint effusion, left complex tear of lateral meniscus -Please see below for individual treatment plans Left medial and lateral femoral condyle avascular necrosis with left knee joint effusion -MRI above -Effusion drained, fluid cx NG, minimal WBC with polys not indicative of infection per ortho -Elevated CRP, ESR likely skewed with chronic medical issues -Per ortho, will likely need left total knee replacement down the line if she is candidate -Will see how patient tolerates WBAT with walker only, pain medications (tramadol, percocet), PT/OT -ARU? -Will need f/u with [facility] at discharge. Left complex tear of lateral meniscus -At patient's age, not candidate for surgery -Pain control as above -C/w treatment above and f/u End-stage renal diseases with anemia of chronic disease & secondary hyperparathyroidism -HD weekly -Nephrology following. 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 Plan is ARU vs. home with services . VS, I&O, 24H, Fishbone Vital Signs/I&O Vital Signs Date Time Temp Pulse Resp B/P (MAP) Pulse Ox O2 Delivery O2 Flow Rate FiO2 07/25/20 14:00 96.0 128 18 113/70 (84) 98 07/25/20 08:09 Nasal Cannula 2.0 I&O- Last 24 Hours up to 6 AM 07/25/20 06:00 Intake Total 840 ml Output Total 50 ml Balance 790 ml Laboratory Data 24H LABS Laboratory Tests 2 07/25/20 06:23: Nucleated Red Blood Cells % (auto) 0.0, Immature Platelet Fraction 3.7, Anion Gap 13, Glomerular Filtration Rate 4.7L, Calcium Level 8.9, Total Bilirubin 0.4, Aspartate Amino Transf (AST/SGOT) 11, Alanine Aminotransferase (ALT/SGPT) 18, Alkaline Phosphatase 83, Total Protein 6.7, Albumin 3.2, Albumin/Globulin Ratio 0.9L CBC/BMP Laboratory Tests 07/25/20 06:23 Microbiology Microbiology 07/23/20 Blood Culture - Preliminary, Resulted No Growth after 48 hours. All Specime... 07/23/20 Gram Stain - Final, Complete 07/23/20 Body Fluid Culture - Final, Complete Current Medications Current Medications Medications (Trade) Dose Ordered Sig/Erica Route PRN Reason Start Time Stop Time Status Last Admin Dose Admin Acetaminophen (Tylenol Tab) 650 mg Q4H PRN PO PAIN OR FEVER 07/23/20 02:00 07/24/20 18:29 DC Acetaminophen (Tylenol Tab) 650 mg Q6HP PRN PO PAIN OR FEVER 07/24/20 18:30 Al Hydrox/Mg Hydrox/Simethicone (Mylanta) 30 ml DAILY PRN PO DYSPEPSIA 07/23/20 02:00 Albuterol/ Ipratropium (Combivent Respimat 100-20mcg) 1 puff RQ6H INH 07/23/20 08:00 07/25/20 13:59 Calcium Carbonate (Tums) 500 mg BID@0800,1800 PO 07/23/20 08:00 07/25/20 06:43 Cinacalcet (Sensipar) 30 mg MoFr@0900 PO 07/23/20 09:00 07/23/20 15:00 Cyclobenzaprine HCl (Flexeril) 5 mg TID PRN PO MUSCLE SPASMS 07/23/20 03:30 Diazepam (Valium) 2 mg BID PRN PO ANXIETY 07/23/20 03:30 07/23/20 13:31 Heparin Sodium (Porcine) (Heparin) 5,000 units Q8H SQ 07/23/20 06:00 07/25/20 06:46 Home Med (Med Rec Complete!) ASDIRECTED XX 07/22/20 23:00 07/22/20 22:54 DC Hydromorphone HCl (Dilaudid) 0.3 mg Q3HP PRN IV MILD PAIN (PS 1-4) 07/23/20 03:15 07/24/20 18:29 DC 07/24/20 17:00 Levothyroxine Sodium (Synthroid) 75 mcg DAILY@0600 PO 07/23/20 06:00 07/25/20 06:42 Magnesium Hydroxide (Milk Of Magnesia) 30 ml DAILY PRN PO CONSTIPATION 07/23/20 02:00 Metoprolol Tartrate (Lopressor) 50 mg BID PO 07/23/20 09:00 07/24/20 08:13 Omeprazole (PriLOSEC) 40 mg DAILY PO 07/25/20 15:30 UNV Oxycodone/ Acetaminophen (Percocet 5mg/ 325mg Tablet) 1 tab Q6HP PRN PO SEVERE PAIN (PS 8-10) 07/24/20 18:30 07/25/20 11:58 Rosuvastatin Calcium (Crestor) 20 mg QHS PO 07/23/20 21:00 07/24/20 21:45 Senna (Senokot) 1 tab BID PRN PO CONSTIPATION 07/23/20 03:30 Tramadol HCl (Ultram) 50 mg Q6HP PRN PO MODERATE PAIN (PS 5-7) 07/24/20 18:30 Trazodone HCl (Desyrel) 100 mg QHS PO 07/23/20 21:00 07/24/20 21:45 Allergies Coded Allergies: Quinolones (Verified Allergy, Severe, 08/03/19) Noa Bhakta MD Jul 25, 2020 15:29
[2020-07-25] MEDS: OMEPRAZOLE 20 MG CAP PO SCH (15:58)
[2020-07-25] MEDS: ROSUVASTATIN 10 MG TAB (CRESTOR) PO SCH (20:03)
[2020-07-25] MEDS: traZODone 100 MG TAB PO SCH (20:03)
[2020-07-25 22:00] VITALS: BP 106/61
[2020-07-26 01:09] VITALS: O2SAT 90
[2020-07-26] MEDS: COMBIVENT RESPIMAT 100-20MCG INHALER 4GM INH SCH ×3 (02:00→14:03)
[2020-07-26 06:00] VITALS: BP 118/72
[2020-07-26] MEDS: LEVOTHYROXINE 75MCG TABLET (0.075MG) PO SCH (06:05)
[2020-07-26] MEDS: PERCOCET 5MG/325MG TAB PO PRN (06:06)
[2020-07-26 06:52] LABS: HEMATOCRIT 32.2 % (36.0-47.0); HEMOGLOBIN 10.2 g/dl (12.0-15.5); MEAN CORPUSCULAR HEMOGLOBIN 32.4 pg (27.0-33.0); MEAN CORPUSCULAR HGB CONC 31.7 g/dl (32.0-36.5); MEAN CORPUSCULAR VOLUME 102.2 fl (80.0-96.0); PLATELET COUNT, AUTOMATED 103 10^3/uL (150-450); RED BLOOD COUNT 3.15 10^6/uL (4.00-5.40); WHITE BLOOD COUNT 5.2 10^3/uL (4.0-10.0)
[2020-07-26 07:26] LABS: ALBUMIN 3.4 GM/DL (3.2-5.2); BILIRUBIN,TOTAL 0.4 MG/DL (0.2-1.0); CALCIUM LEVEL 9.2 MG/DL (8.8-10.2); CREATININE FOR GFR 5.92 MG/DL (0.55-1.30); GLOMERULAR FILTRATION RATE 7.6 (>45); POTASSIUM SERUM 4.8 MEQ/L (3.5-5.1); TOTAL PROTEIN 6.9 GM/DL (6.4-8.2)
[2020-07-26] MEDS ORDERED: TRAM50TA2 PO (08:27)
[2020-07-26] MEDS ORDERED: PERCOCET PO (08:27)
[2020-07-26] MEDS: OMEPRAZOLE 20 MG CAP PO SCH (08:53)
[2020-07-26] MEDS: CALCIUM CARBONATE 500 MG CHEW U/D PO SCH (08:53)
[2020-07-26 08:54] VITALS: BP 108/62
[2020-07-26] MEDS: METOPROLOL TART 50 MG TAB PO SCH (08:54)
[2020-07-26 09:00] VITALS: O2SAT 94
[2020-07-26] MEDS ORDERED: ASPIRIN 325 MG TAB PO SCH (09:00)
--- NOTE | 2020-07-26 12:45 | IPN ---
NEPHROLOGY PROGRESS NOTE DATE: 07/26/2020 SUBJECTIVE: Ms. Carnes is seen this morning on her bedside. She is sitting in the chair at the time of my visit. She underwent hemodialysis yesterday and tolerated it well. She reports that she did walk with the physical therapist yesterday and is planning to walk again today. She has been allowed for weightbearing on her left leg. She denies any dyspnea, chest pain, fever or chills. PHYSICAL EXAMINATION: Temperature 97 degrees Fahrenheit, heart rate 02 per minute and respiratory rate 16 per minute. Blood pressure 108/62 mmHg and oxygen saturation 94% on room air. Head: Atraumatic. Neck: Supple and JVD not abnormally elevated. Heart: Sounds are tachycardic and irregular. Lungs: Clear to auscultation. Abdomen: Soft and nontender and bowel sounds are normal. Extremities: Without any cyanosis or clubbing. She has a moderate effusion in her left knee joint. PROBLEMS/PLAN: 1. End-stage renal disease: Patient was dialyzed yesterday and she will be due for next hemodialysis on July 28. Her electrolytes are normal today and she does not need any urgent dialysis. 2. Anemia: Her anemia has been stable and does not need any changes. This will be managed with dialysis at outpatient clinic. 3. Left knee pain: She is doing much better with physical therapy and is able to ambulate with the help of a walker. I have advised her to continue using the walking even at home. 4. Disposition: Patient is likely going home today. From a renal standpoint she is medically stable for discharge and will be followed up as an outpatient.
--- NOTE | 2020-07-26 17:11 | DS.PDOC ---
Discharge Summary General Date of Admission Jul 23, 2020 at 01:52 Date of Discharge 07/26/20 Attending Physician: Noa Bhakta MD Specialist/Consultants Involve: A Discharge Summary HISTORY OF PRESENT ILLNESS: This 64 yr old F hit her left knee on a cup board about 3 or 4 days ago; immediately thereafter she had transient knee pain. Yesterday while walking with her walker she developed excruciating, 100/10 in severity, sharp left knee pain and difficulties walking. She denies falling or having f/c. 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 examined the patient and performed arthrocentesis of the joint. HOSPITAL COURSE: Left knee pain was found to be likely MF to left medial and lateral femoral condyle avascular necrosis with left knee joint effusion, left complex tear of lateral meniscus. Her effusion drained, fluid cx NG, minimal WBC with polys not indicative of infection per ortho. Elevated CRP, ESR likely skewed with chronic medical issues. Per ortho, will likely need left total knee replacement down the line if she is candidate. She did very well with recommended WBAT with walker and with pain medications. She was cleared for home with home services for PT/OT being offered. For her left complex tear of lateral meniscus, due to patient's age, not candidate for surgery per ortho. Instead of following up with [facility] at discharge, patient would like to f/u with [facility] in [place], as they know her from previous surgeries. All other chronic medical issues remained stable during hospital stay. She was discharged on 07/26/20 in improved condition with follow up appointments arranged. PAST MEDICAL/ SURGICAL HISTORY: ESRD / anemia of chronic disease / secondary hyperparathyroidism / Left AV fistula - TTS COPD Chronic HTN Longstanding persistent A fib / A flutter (not on AC bc of ICH 2018) Bi- atrial enlargement / Chronic HFpEF / D CHF Group 2 vs Group 3 Moderate Pulm HTN Aortic sclerosis PRABHJOT (not compliant CPAP) Chronic vocal cord dysfunction Hypothyroidism Vestibular neuritis / Vertigo DM w neuropathy and retinopathy Fatty Liver Anxiety Class 1 obesity Nephrolithiasis Debility uses walker x 2 Lumbar discectomy x 2 Hysterectomy Ventriculostomy for ICH Urethroscopy w left stent placement and subsequent removal SOCIAL HISTORY: Doesnt smoke drink or use recreational drugs FAMILY HISTORY: Stroke, diabetes, cluster headaches ALLERGIES: Please see below. DISCHARGE MEDICATIONS: Please see below. PHYSICAL EXAM: VS: Please see below GENERAL APPEARANCE: NAD, resting in bed HEENT: no scleral icterus, no JVD, EOMI CARDIOVASCULAR: S1S2 LUNGS: CTA ABDOMEN: soft & not tender w palpitation MUSCULOSKELETAL: no cyanosis, improved flexion and extension of the left knee, left knee swelling continues to improve, no tenderness to palpation INTEGUMENT: normal skin turgor, intact NEUROLOGICAL: cranial nerve function from 2-12 intact intact, follows commands, speech not dysarthric LAB: please see below IMAGING: MRI left knee: Extensive areas of avascular necrosis in the medial and lateral femoral condyle. There is fragmentation and collapse of the lateral femoral condyle. A large joint effusion is present. There is a complex tear in the body of the lateral meniscus. Patellar chondromalacia is seen. ASSESSMENT: Patient is 64 years old female with PMH of anxiety, nephrolithiasis, end-stage renal diseases admitted for left knee pain/swelling likely 2/2 to left knee effu viktoria, avascular necrosis of left medial and lateral fem condyle, complex tear of lateral meniscus, ambulatory dysfunction. PLAN: Left knee pain likely MF to left medial and lateral femoral condyle avascular necrosis with left knee joint effusion, left complex tear of lateral meniscus -Please see below for individual treatment plans Left medial and lateral femoral condyle avascular necrosis with left knee joint effusion -MRI above -Effusion drained, fluid cx NG, minimal WBC with polys not indicative of infection per ortho -Elevated CRP, ESR likely skewed with chronic medical issues -Per ortho, will likely need left total knee replacement down the line if she is candidate -Does well with WBAT with walker, cleared by PT -Pain control with oxy/acetaminophen, tramadol -[facility] (preferred ortho practice to follow up by patient) follow up and PT/OT at discharge Left complex tear of lateral meniscus -At patient's age, not candidate for surgery -Pain control as above -C/w treatment above and f/u End-stage renal diseases with anemia of chronic disease & secondary hyperparathyroidism -HD weekly -Nephrology following o/p and was seen this admission by Dr. 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 TIME SPENT ON DISCHARGE: Greater than 30 minutes. Vital Signs/I&Os Vital Signs Date Time Temp Pulse Resp B/P (MAP) Pulse Ox O2 Delivery O2 Flow Rate FiO2 07/26/20 09:00 94 Room Air 07/26/20 08:54 102 108/62 07/26/20 06:36 16 07/26/20 06:00 97.0 2.0 I&O- Last 24 Hours up to 6 AM 07/26/20 06:00 Intake Total 870 ml Output Total 1900 ml Balance -1030 ml Laboratory Data Labs 24H Laboratory Tests 2 07/26/20 06:37: Nucleated Red Blood Cells % (auto) 0.0, Anion Gap 8, Glomerular Filtration Rate 7.6L, Calcium Level 9.2, Total Bilirubin 0.4, Aspartate Amino Transf (AST/SGOT) 12, Alanine Aminotransferase (ALT/SGPT) 19, Alkaline Phosphatase 83, Total Protein 6.9, Albumin 3.4, Albumin/Globulin Ratio 1.0L CBC/BMP Laboratory Tests 07/26/20 06:37 Microbiology Microbiology 07/23/20 Blood Culture - Preliminary, Resulted No Growth after 72 hours. All specime... 07/23/20 Gram Stain - Final, Complete 07/23/20 Body Fluid Culture - Final, Complete Discharge Medications Scheduled Aspirin (Aspirin) 325 Mg Tab, 325 MG PO DAILY, (Reported) Calcium Carbonate (Tums) 200 Mg Tab.chew, 400 MG PO ACB, (Reported) TAKE WITH BREAKFAST AND DINNER. PT WAS TOLD TO STOP TAKING VELPHORO AT DIALYSIS YESTERDAY AND TO START TAKING TUMS TWICE A DAY Calcium Carbonate (Tums) 200 Mg Tab.chew, 200 MG PO ACS, (Reported) Cinacalcet (Sensipar) 30 Mg Tab, 30 MG PO 2XW, (Reported) MON/FRI Ergocalciferol (Vitamin D2) (Vitamin D2) 50,000 Units Cap, 50,000 UNIT PO Q2WK, (Reported) EVERY OTHER THURSDAY Folic Acid/Vit B Complex and C (Kyra-Mirella Tablet) 1 Tab Tab, 1 TAB PO DAILY, (Reported) Levothyroxine Sodium (Levothyroxine Sodium) 75 Mcg Tab, 75 MCG PO DAILY, (Reported) Metoprolol Tartrate (Metoprolol Tartrate) 50 Mg Tablet, 50 MG PO BID, (Reported) SKIPS EVENING DOSE DAY BEFORE DIALYSIS (//THU) Omeprazole (Omeprazole) 40 Mg Cap, 40 MG PO DAILY, (Reported) Rosuvastatin Calcium (Crestor) 20 Mg Tab, 20 MG PO QHS, (Reported) Trazodone HCl (Trazodone HCl) 100 Mg Tab, 100 MG PO QHS, (Reported) Umeclidinium Brm/Vilanterol Tr (Anoro Ellipta 62.5-25 Mcg INH) 1 Each Blst.w.dev, 1 PUFF INH DAILY, (Reported) Scheduled PRN Cyclobenzaprine HCl (Cyclobenzaprine HCl) 5 Mg Tab, 5 MG PO TID PRN for MUSCLE SPASMS, (Reported) Diazepam (Diazepam) 2 Mg Tablet, 2 MG PO BID PRN for ANXIETY, (Reported) Oxycodone/Acetaminophen (Oxycodone-Acetaminophen 5-325) 1 Each Tablet, 1 TAB PO Q8HP PRN for SEVERE PAIN (PS 8-10) Polyethylene Glycol 3350 (Miralax) 119 Gm Powder, 17 GM PO DAILY PRN for CONSTIPATION, (Reported) dilute in 8 ounces of water or juice Sennosides (Senna) 8.6 Mg Tablet, 8.6 MG PO BID PRN for CONSTIPATION, (Reported) Tramadol HCl (Tramadol HCl) 50 Mg Tablet, 50 MG PO Q6HP PRN for MODERATE PAIN (PS 5-7) Allergies Coded Allergies: Quinolones (Verified Allergy, Severe, 08/03/19) Noa Bhakta MD Jul 26, 2020 17:11
== END 2020-07-26 14:20 | disposition home or self-care (01) | DRG 553 ==
LOC: M ED 17:28 → M ED INP 07-23 01:52 → ENRESERV 07-23 07:00 → M MSPAV 07-23 07:58
PROVIDERS: ADMIT Internal Medicine; ATTEND Internal Medicine
PROC: 5A1D70Z Performance of Urinary Filtration, Intermittent, Less than 6 Hours Per Day (ICD-10-PCS; 2020-07-23)
PROC: 0S9D3ZX Drainage of Left Knee Joint, Percutaneous Approach, Diagnostic (ICD-10-PCS; principal; 2020-07-24)
DX: M87.052 Idiopathic aseptic necrosis of left femur (principal); N18.6 End stage renal disease; I12.0 Hypertensive chronic kidney disease with stage 5 chronic kidney disease or end stage renal disease; I50.32 Chronic diastolic (congestive) heart failure; N25.81 Secondary hyperparathyroidism of renal origin; I48.11 Longstanding persistent atrial fibrillation; I48.92 Unspecified atrial flutter; J44.9 Chronic obstructive pulmonary disease, unspecified; I27.20 Pulmonary hypertension, unspecified; E11.40 Type 2 diabetes mellitus with diabetic neuropathy, unspecified; E11.319 Type 2 diabetes mellitus with unspecified diabetic retinopathy without macular edema; D69.59 Other secondary thrombocytopenia; S83.272A Complex tear of lateral meniscus, current injury, left knee, initial encounter; K76.0 Fatty (change of) liver, not elsewhere classified; E66.9 Obesity, unspecified; G47.33 Obstructive sleep apnea (adult) (pediatric); Z91.19 Patient's noncompliance with other medical treatment and regimen; E03.9 Hypothyroidism, unspecified; I35.0 Nonrheumatic aortic (valve) stenosis; D63.1 Anemia in chronic kidney disease; Z79.899 Other long term (current) drug therapy; Z79.82 Long term (current) use of aspirin; Z88.8 Allergy status to other drugs, medicaments and biological substances; F17.200 Nicotine dependence, unspecified, uncomplicated; W20.8XXA Other cause of strike by thrown, projected or falling object, initial encounter; Y92.009 Unspecified place in unspecified non-institutional (private) residence as the place of occurrence of the external cause

== ENCOUNTER 2020-09-11 05:55 | Emergency (ER) | payer MEDICARE, MEDICAID ==
[~2020-09-11] VITALS: Ht 154.9 cm; Wt 79.1 kg
[~2020-09-11 05:55] MED LIST changes: +PERCOCET PO; +TRAM50TA2 PO
--- OUTSIDE RECORDS SUMMARY | 2020-09-11 06:01 | CCD | Summary of Care ---
Author Author [facility] Organization [facility] Address Unknown Phone Unavailable Care Team Providers Care Rice Field Worker Name Role Phone Aiden Nieves MD PCP Reason for Referral * Diagnostic Radiology (Routine) Referred By Contact Referred To Contact Status Reason Specialty Diagnoses / Procedures Raya Bains NP [address] [place] [address] Email: [email or web address] Authorized Radiology Diagnoses Benign cyst of right breast P rocedures US Breast Including Axilla Limited Right * Diagnostic Radiology (Routine) Referred By Contact Referred To Contact Status Reason Specialty Diagnoses / Procedures Raya Bains NP [address] [place] [address] Email: [email or web address] Authorized Radiology Diagnoses Screening mammogram, encounter for P rocedures Mammo Digital Screen Bilateral Reason for Visit * Reason Comments Follow-up breast Encounter Details Care Team Description Date Type Department Raya Bains NP [address] [place], [place] [id number] Screening mammogram, encounter for (Prim yue Dx); Benign cyst of right breast 08/31/2020 [facility] [address] [place] [address] Allergies Comments Active Allergy Reactions Severity Noted Date Was on 2 antibiotics for Pneumonia (unsure of names) Other Anaphylaxis High 08/27/2016 Reaction: SWELLING Quinolones 01/22/2015 Tequin Swelling 08/25/2012 documented as of this encounter (statuses as of 09/04/2020) Medications End Date Status Medication Sig Dispensed Refills Start Date Active ondansetron (ZOFRAN) 4 MG Take 4 mg by 0 tablet mouth every 8 (eight) hours as needed. Active cyclobenzaprine Take 5 mg by 0 (FLEXERIL) 5 MG tablet mouth Three times daily as needed for Muscle spasms (Back) Active trazodone (DESYREL) 100 Take 100 mg 0 MG tablet by mouth nightly. Active insulin glargine (LANTUS) Inject 10 0 100 UNIT/ML injection Units into the skin as needed Active metoprolol tartrate Take 25 mg by 0 (LOPRESSOR) 25 MG tablet mouth Two Times Daily Active omega-3 acid ethyl esters Take 2 g by 0 (LOVAZA) 1 G capsule mouth 2 (two) times daily. Active omeprazole (PRILOSEC) 40 Take 40 mg by 0 MG capsule mouth daily. Active hydrocodone-acetaminophen Take 1 tablet 0 (LORTAB) 5-325 MG per by mouth Two tablet times daily as needed for Pain. Active BD ULTRA-FINE PEN NEEDLES Use as 0 12/25 29G X 12.7MM MISC directed. 5 Active aspirin 325 MG tablet Take 325 mg 0 by mouth daily. Active CALCITRIOL POIndications: Take 0.1 mcg 0 takes tues thurs sat at by mouth dialysis Three days a weekIndicatio ns: takes tues thurs sat at dialysis Active diazepam (VALIUM) 5 MG Take 5 mg by 0 tabletIndications: mouth every 5 usually takes at bed time 12 (twelve) only hours as needed for Anxiety or SleepIndicati ons: usually takes at bed time only Active levothyroxine (SYNTHROID, Take 75 mcg 0 02/25 LEVOTHROID) 75 MCG tablet by mouth 6 daily. Active KIONEX 15 GM/60ML Take by mouth 0 suspension as needed 6 Active CRESTOR 20 MG tablet Take 20 mg by 5 mouth daily 7 Active Misc. Devices (DURABLE Use as 1 each 0 MEDICAL EQUIPMENT SEE directed. Dx. 7 SIG) MISC Obstructive sleep apnea Overnight oxymetry Active Misc. Devices (DURABLE Use as 1 each 0 MEDICAL EQUIPMENT SEE directed. Dx. 7 SIG) MISCIndications: PRABHJOT Obstructive (obstructive sleep apnea) sleep apnea Overnight oxymetry on 3lpm supplemental oxygen. Active vitamin D Take 50,000 0 (ERGOCALCIFEROL) 90049 Units by UNITS CAPS mouth every capsuleIndications: takes 14 (fourteen) every other week on sundays11/30/16 Indications: takes every other week on sundays11/30/16 Active SENSIPAR 30 MG Take 30 mg by 5 tabletIndications: 3 x mouth once a 7 per week week Indications: 3 x per week Active sevelamer carbonate Take 800 mg 0 (RENVELA) 800 MG tablet by mouth Three times daily with meals Active Sucroferric Oxyhydroxide Take by mouth 0 (VELPHORO PO) Active Umeclidinium-Vilanterol Inhale 1 puff 1 each 62.5-25 MCG/INH into the 0 Inhalation Aerosol Powder lungs daily Breath Activated (ANORO ELLIPTA) Active Full Spectrum B/Vitamin C Take 1 tablet 0 0.8 MG Oral Tablet by mouth daily documented as of this encounter (statuses as of 09/04/2020) Active Problems Patient Care Coordination Note Tim Diaz- overnight oximetry and O2 at night. 10/18/15 CD from [employer] uploaded into [employer] and returned by mail to the pt. 06/24/16 CD from [employer] uploaded into [employer] and returned by mail to the pt. 09/02/16 CD from [employer] uploaded into [employer] and returned by mail to the pt. Problem Noted Date Breast calcifications on mammogram 03/02/2020 Diabetes mellitus type II 11/03/2016 HTN (hypertension) 11/03/2016 Depression 11/03/2016 Hypothyroidism 11/03/2016 Atrial fibrillation 11/03/2016 Encounter for screening mammogram for high-risk patie nt 08/27/2016 Pulmonary nodules 06/17/2016 History of left breast biopsy 08/08/2015 Overview: X2, benign Family history of breast cancer 08/08/2015 Abnormal finding on breast imaging 08/08/2015 S/P breast biopsy, left 08/08/2015 Sacroiliac joint disease 05/28/2015 Shortness of breath 09/06/2014 Chronic obstructive lung disease 09/06/2014 Vocal cord dysfunction 09/06/2014 Enlarged liver 09/06/2014 Cervico-occipital neuralgia 01/23/2014 Spondylosis, lumbosacral 01/23/2014 Cervical spondylosis without myelopathy 01/23/2014 Sleep apnea Anxiety ESRD (end stage renal disease) Intracerebral bleed documented as of this encounter (statuses as of 09/04/2020) Social History Date Tobacco Use Types Packs/Day Years Used Quit: 07/27/2001 Former Smoker Cigarettes 2 40 Smokeless Tobacco: Never Used Drinks/Week oz/Week Comments Alcohol Use No Sex Assigned at Date Recorded Not on file Date Recorded COVID-19 Exposure Response 08/31/2020 10:24 AM EST In the last month, have you been in contact with No / Unsure someone who was confirmed or suspected to have Coronavirus / COVID-19? documented as of this encounter Last Filed Vital Signs Reading Time Taken Comments Vital Sign 112/76 08/31/2020 11:32 AM EST Blood Pressure 120 08/31/2020 11:32 AM EST Pulse 36.8 C (98.3 F) 08/31/2020 11:32 AM EST Temperature - - Respiratory Rate - - Oxygen Saturation - - Inhaled Oxygen Concentration 79.8 kg (176 lb) 08/31/2020 11:32 AM EST Weight 152.4 cm (5') 08/31/2020 11:32 AM EST Height 34.37 08/31/2020 11:32 AM EST Body Mass Index documented in this encounter Patient Instructions * Patient Instructions* Raya Bains NP - 08/31/2020 11:30 AM EST Please call the office if you note any changes in the way your breasts and/or ch est wall feel or look to you, or if you notice any nipple discharge. To maximize your health, we recommend you exercise routinely and include both ae robic exercise as well as weight-bearing and muscle-strengthening exercises. You should avoid tobacco and limit alcohol intake. We generally recommend an intake of 1200 mg of Elemental Calcium and 1000 to 2000 International Units of Vitamin D a day through a combination of diet sources and supplements. We will see you back for your next schedule appointment. Thank you for returning to see us. documented in this encounter Progress Notes * Raya Bains NP - 08/31/2020 11:30 AM EST REASON FOR VISIT: Caro Carnes is a 64 y.o. woman who [facility] and [facility]. She comes in today for a routine follow-up visit. We had been following calcifications in the right breast since September 2018. She p resented for screening bilateral mammogram on 02/03/2020. This showed category A breast density with an increased area of grouped round and amorphous calcificati ons in the lower outer aspect of the right breast. A stereotactic biopsy was rec ommended. She presented for stereotactic biopsy on 02/20/2020. Unfortunately the area of calcifications was too far posterior and a biopsy was unable to be perfo rmed. It was recommended that she undergo surgical consult versus 6 month follow up. This was discussed with her in the office although she was anxious on w aiting 6 months to document stability and requested to meet a breast surgeon for evaluation. Patient had stereotactic breast biopsy done at [facility] on 03/14/2020. Results benign and concordant, recommends repeat imaging in 6 months Her personal history is significant for menarche age 13?, , first live age 22. She did not breast feed. Surgical menopause age 48 (with ovaries remove d). No HRT use. Reported history of left breast biopsy X2, for microcalcificatio ns, unsure of dates, benign findings and left core biopsy 07/2015 with benign em ceballos. Her family history is significant for breast cancer diagnosed in her maternal au nt, diagnosed at age 63 and passed from disease at age 77. No other reported fam laquita history of breast or ovarian cancer. She is doing well overall. She continues on dialysis. She does perform routine self-breast exam and denies noting any palpable or visu al changes. She denies any nipple discharge. She denies recurrent fevers or chills, drenching night sweats, unintentional luz ght loss or unusual bony pain, unusual cough or dyspnea. Appetite is good, energ y level good. MEDICATIONS: Prior to Admission medications Medication Sig Start Date End Date Taking? Authorizing Provider aspirin 325 MG tablet Take 325 mg by mouth daily. Yes Historical Provider, MD NARVAEZ ULTRA-FINE PEN NEEDLES 29G X 12.7MM MISC Use as directed. 01/10/15 Yes Histor ical Provider, CRESTOR 20 MG tablet Take 20 mg by mouth daily 09/18/16 Yes Historical Provider, cyclobenzaprine (FLEXERIL) 5 MG tablet Take 5 mg by mouth Three times daily as n eeded for Muscle spasms (Back) Yes Historical Provider, Full Spectrum B/Vitamin C 0.8 MG Oral Tablet Take 1 tablet by mouth daily Yes Historical Provider, hydrocodone-acetaminophen (LORTAB) 5-325 MG per tablet Take 1 tablet by mouth Tw o times daily as needed for Pain. Yes Historical Provider, insulin glargine (LANTUS) 100 UNIT/ML injection Inject 10 Units into the skin as needed Yes Historical Provider, KIONEX 15 GM/60ML suspension Take by mouth as needed 12/27/15 Yes Historical Pro viderMD levothyroxine (SYNTHROID, LEVOTHROID) 75 MCG tablet Take 75 mcg by mouth daily. 03/19/16 Yes Historical Provider, metoprolol tartrate (LOPRESSOR) 25 MG tablet Take 25 mg by mouth Two Times Daily Yes Historical Provider, MD [place]. Devices (DURABLE MEDICAL EQUIPMENT SEE SIG) MISC Use as directed. Dx. Obst ructive sleep apnea Overnight oxymetry 10/15/16 Yes MD Neal Summers. Devices (DURABLE MEDICAL EQUIPMENT SEE SIG) MISC Use as directed. Dx. Obst ructive sleep apnea Overnight oxymetry on 3lpm supplemental oxygen. 11/06/16 Yes Tony Naidu MD omeprazole (PRILOSEC) 40 MG capsule Take 40 mg by mouth daily. Yes Historical Provider, ondansetron (ZOFRAN) 4 MG tablet Take 4 mg by mouth every 8 (eight) hours as nee ded. Yes Historical Provider, SENSIPAR 30 MG tablet Take 30 mg by mouth once a week Indications: 3 x per week 03/25/17 Yes Historical Provider, Sucroferric Oxyhydroxide (VELPHORO PO) Take by mouth Yes Historical Provider, trazodone (DESYREL) 100 MG tablet Take 100 mg by mouth nightly. Yes Historical Provider, Umeclidinium-Vilanterol 62.5-25 MCG/INH Inhalation Aerosol Powder Breath Activat ed (ANORO ELLIPTA) Inhale 1 puff into the lungs daily 08/03/19 Yes Tory Summers vitamin D (ERGOCALCIFEROL) 56173 UNITS CAPS capsule Take 50,000 Units by mouth e very 14 (fourteen) days Indications: takes every other week on sundays11/30/16 Yes Historical Provider, CALCITRIOL PO Take 0.1 mcg by mouth Three days a weekIndications: takes thu rs sat at dialysis Historical Provider, diazepam (VALIUM) 5 MG tablet Take 5 mg by mouth every 12 (twelve) hours as need ed for Anxiety or SleepIndications: usually takes at bed time only 06/26/15 Hi storical Provider, omega-3 acid ethyl esters (LOVAZA) 1 G capsule Take 2 g by mouth 2 (two) times d aily. Historical Provider, sevelamer carbonate (RENVELA) 800 MG tablet Take 800 mg by mouth Three times surjit ly with meals Historical Provider, PHYSICAL EXAMINATION: Physical exam reveals a comfortable woman who appears her stated age a nd answers questions appropriately. Visit Vitals BP 112/76 Pulse (!) 120 Temp 36.8 C (98.3 F) (Oral) Ht 1.524 m (5') Wt 79.8 kg (176 lb) BMI 34.37 kg/m Neck is supple without lymphadenopathy. Her breasts are relatively symmetric and moderatetly pendulous. Her nipples are everted bilaterally with no evident spontaneous nipple discharge. She has no asy mmetric skin dimpling or retraction with her arms held in multiple positions. Sh e has no suspicious skin lesions. Her breast parenchyma is without any dominant or abnormal masses within either breast. There are no palpable axillary adenopat hy. RADIOGRAPHIC DATA: She had a right mammogram and ultrasound at our facility and report showed: FINDINGS: There are scattered areas of fibroglandular density (category B). On mammogram, biopsy clip marker is seen in the posterior lower breast. Likely p ost biopsy changes are seen lateral to the biopsy clip marker. On targeted right breast ultrasound, a 0.7 x 0.2 x 0.5 cm circumscribed hypoecho ic mass is seen at 9/10 o'clock, 1 cm IMPRESSION: 1. Probable postbiopsy changes on mammogram and probably benign right breast mas s on ultrasound. 2. Follow up right mammogram and right breast ultrasound in 6 months is recommen ded, at which point the patient will be due for screening left mammogram. BI-RADS 3 - PROBABLY BENIGN - SHORT INTERVAL FOLLOWUP SUGGESTED. ASSESSMENT AND PLAN: Caro is a 64 y.o. woman with a history of benign breast biopsies most recent in February 2020 as well as a family history of breast cancer. Based on today's clinical breast exam and breast imaging, there is no overt sign of malignancy or other concerning findings. Right breast cyst and calcificatio ns remain stable. She was instructed to perform routine [id number]. We reviewed both technique and rationale for this, including the idea of "knowing oneself." We will schedule to [facility] 6 months for clini edu breast exam and breast imaging. She will contact us should any problems or questions relating to her breast health arise in the interim. documented in this encounter Plan of Treatment Care Team Description Date Type Specialty 03/07/2021 Appointment Radiology 03/07/2021 Appointment Radiology Raya Bains NP [address] [place] [address] [phone] 03/07/2021 Office Visit Breast Surgery Order Schedule Name Type Priority Associated Diag noses Expected: 08/31/2020, Expires: 2 Mammo Digital Screen Imaging Routine Screening mammogram, Bilateral encounter for Expected: 08/31/2020, Expires: 2 US Breast Including Imaging Routine Benign cys t of right Axilla Limited Right breast Health Maintenance Due Date Last Done Comments MMR Vaccines (1 of 1 - 11/20/1956 Standard series) Pneumococcal Vaccine: 11/20/1961 Pediatrics (0 to 5 Years) and At-Risk Patients (6 to 64 Years) (1 of 3 - PCV13) DTaP,Tdap,and Td Vaccines 11/20/1962 (1 - Tdap) Cervical Cancer Screening 10/15/2017 10/15/2012 5 years Varicella Vaccines (1 of 10/10/2019 08/15/2019 2 - 2-dose childhood series) Zoster Vaccines (2 of 2) 10/10/2019 08/15/2019 Influenza Vaccine 04/26/2020 Pneumococcal Vaccine: 65+ 11/20/2020 Years (1 of 1 - PPSV23) Breast Cancer Screening 2 02/19/2022 02/20/2020, years 02/03/2020, 04/25/2019, Additional history exists Colon Cancer Screening 10 06/05/2024 06/05/2014 yrs Hepatitis B Vaccines Completed 09/18/2012, 06/10/2012, 05/06/2012, Additional history exists HIV Screening Completed 12/01/2016, 09/06/2012, 09/06/2012, Additional history exists Hepatitis C Screening (B. Completed 12/15/2018, [id number]) 12/01/2016, 09/06/2012 HIB Vaccines Aged Out No longer eligible based on patient's age to complete this topic Hepatitis A Vaccines Aged Out No longer eligibl e based on patient's age to complete this topic IPV Vaccines Aged Out No longer eligible based on patient's age to complete this topic documented as of this encounter Results Not on filedocumented in this encounter Visit Diagnoses Diagnosis Screening mammogram, encounter for - Pr imary Benign cyst of right breast documented in this encounter Additional Health Concerns Last Indicated Resolved Time Infection Onset Date 05/24/2012 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
--- OUTSIDE RECORDS SUMMARY | 2020-09-11 06:02 | CCD | Summary of Care ---
Author Author [facility] Organization [facility] Address Unknown Phone Unavailable Care Team Providers Care Skilled Nursing Professional Name Role Phone Aiden Nieves MD PCP Reason for Referral * Diagnostic Radiology (Routine) Referred By Contact Referred To Contact Status Reason Specialty Diagnoses / Procedures Raya Bains NP [address] [place] [address] Email: [email or web address] Authorized Radiology Diagnoses Breast mass, right Abnormal mammogram P rocedures US Breast Including Axilla Limited Right Reason for Visit * Diagnostic Radiology (Routine) Referred By Contact Referred To Contact Status Reason Specialty Diagnoses / Procedures Raya Bains NP [address] [place] [address] Email: [email or web address] Authorized Radiology Diagnoses Breast mass, right Abnormal mammogram P rocedures US Breast Including Axilla Limited Right Encounter Details Care Team Description Date Type Department Breast mass, right; Abnormal mammogram 08/31/2020 [facility] Radiology Women's I maging Encounter [id number] [address] [place] [address] Allergies Comments Active Allergy Reactions Severity Noted Date Was on 2 antibiotics for Pneumonia (unsure of names) Other Anaphylaxis High 08/27/2016 Reaction: SWELLING Quinolones 01/22/2015 Tequin Swelling 08/25/2012 documented as of this encounter (statuses as of 09/01/2020) Medications End Date Status Medication Sig Dispensed [...] Active vitamin D Take 50,000 0 (ERGOCALCIFEROL) 83788 Units by UNITS CAPS mouth every capsuleIndications: takes 14 (fourteen) every other week on days sundays 5/7/17 Indications: takes every other week on sundays11/30/16 [...] Active Umeclidinium-Vilanterol Inhale 1 puff 1 each 5 62.5-25 MCG/INH into the 0 Inhalation Aerosol Powder lungs daily Breath Activated (ANORO ELLIPTA) Active Full Spectrum B/Vitamin C Take 1 tablet 0 0.8 MG Oral Tablet by mouth daily documented as of this encounter (statuses as of 09/01/2020) Active Problems Patient Care Coordination Note Tim Diaz- overnight oximetry and O2 at night. 10/18/15 CD from [employer] uploaded into [employer] and returned by mail to the pt. 06/24/16 CD from [employer] uploaded into [employer] and returned by mail to the pt. 09/02/16 CD from [employer] uploaded into [employer] and returned by mail to the pt. [...] as of this encounter (statuses as of 09/01/2020) Social History Date Tobacco Use Types Packs/Day [...] of this encounter Last Filed Vital Signs Not on filedocumented in this encounter Plan of Treatment Care Team Description Date Type Specialty 03/07/2021 Appointment Radiology 03/07/2021 Appointment Radiology Raya Bains, ORQUIDEA [address] [place] [address] [phone] 03/07/2021 Office Visit Breast Surgery Date/Time Name Type Priority Associated Diag noses 08/31/2020 11:15 AM EST US Breast Including Imaging Routine Breast mas s, right Axilla Limited Right Abnormal mammogram Order Schedule Name Type Priority Associated Diag noses As Needed for 1 Occurrences starting 11/2020 until 08/31/2020 US Breast Including Imaging Routine Breast mas s, right Axilla Limited Right Abnormal mammogram Health Maintenance Due Date Last Done Comments [...] exists Hepatitis C Screening (B. 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
--- OUTSIDE RECORDS SUMMARY | 2020-09-11 06:03 | CCD | Summary of Care ---
Author Author [facility] Organization [facility] Address Unknown Phone Unavailable Care Team Providers Care Rail Detector Car Operator Name Role Phone Aiden Nieves MD PCP Reason for Referral * Diagnostic Radiology (Routine) Referred By Contact Referred To Contact Status Reason Specialty Diagnoses / Procedures Raya Bains NP [address] [place] [address] Email: [email or web address] Authorized Radiology Diagnoses Breast calcification, right P rocedures Mammo Digital Diagnostic Right Reason for Visit * Diagnostic Radiology (Routine) Referred By Contact Referred To Contact Status Reason Specialty Diagnoses / Procedures Raya Bains NP [address] [place] [address] Email: [email or web address] Authorized Radiology Diagnoses Breast calcification, right P rocedures Mammo Digital Diagnostic Right Encounter Details Care Team Description Date Type Department Breast calcification, right 08/31/2020 [facility] Radiology Women's I maging Encounter [id number] [address] [place] [address] Allergies Comments Active Allergy Reactions [...] CALCITRIOL POIndications: Take 0.1 mcg 0 takes tu thurs sat at by mouth dialysis Three [...] Active vitamin D Take 50,000 0 (ERGOCALCIFEROL) 51697 Units by UNITS CAPS mouth every capsuleIndications: [...] and O2 at night. 10/18/15 CD from [employer] uploaded into [employer] and returned by mail to the pt. 06/24/16 CD from [employer] uploaded into [employer] and returned by mail to the pt. 09/02/16 CD from [employer] uploaded into [employer] and returned by mail to the pt. [...] Radiology 03/07/2021 Appointment Radiology Raya Bains, ORQUIDEA [address] [facility] [place] [address] [phone] 03/07/2021 Office Visit Breast Surgery Date/Time Name Type Priority Associated Diag noses 08/31/2020 10:43 AM EST Mammo Digital Diagnostic Imaging Routine Breas t calcification, Right right Order Schedule Name Type Priority Associated Diag noses As Needed for 1 Occurrences starting 11/2020 until 08/31/2020 Mammo Digital Diagnostic Imaging Routine Breas t calcification, Right right Health Maintenance Due Date Last Done Comments [...] exists Hepatitis C Screening (B. 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
--- OUTSIDE RECORDS SUMMARY | 2020-09-11 06:04 | CCD ---
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 Active 13232317 Problem Hypertensive chronic kidney disease with stage 5 chronic kidney disease or end stage renal disease I12.0 Active 699257002 Problem Anemia in stage 5 chronic kidney disease N18.5 Active 19972814 Problem Dependence on renal dialysis Z99.2 Active 105 222058 Problem Obstructive sleep apnea G47.33 Active 47450286 Problem PRABHJOT (obstructive sleep apnea) G47.33 Active 78 252558 Problem Hypertensive heart disease with heart failure I11.0 Active 10105294 Problem Localized osteoarthritis of left knee M17.12 Ac tive 581983687 Problem Vitamin D deficiency E55.9 Active 05501794 Problem Pulmonary nodule R91.1 Active 954022831 Problem Back pain, lumbosacral M54.5 Active 171926600 Problem Low back pain M54.5 Active 578920366 Problem Chronic obstructive pulmonary disease J44.9 Ac tive 68441092 Problem Mucopurulent chronic bronchitis J41.1 Active 51670786 Problem Sacroiliitis, not elsewhere classified M46.1 A ctive 855045642 Problem Other chronic pain G89.29 Active 66095294 Problem Mixed hyperlipidemia E78.2 Active 487473083 Problem Pneumonia due to infectious organism, unspecified laterality, unspecified part of lung J18.9 Active 081488225 Problem DM renal manif type II E11.29 Active 51774673 Problem Cervical spondylolysis M43.02 Active 578340494 Problem Chronic kidney disease, stage V N18.5 Active 224459001 Problem 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 Active 2398 93673 Problem Atrial flutter I48.92 Active 6124989 Problem COPD exacerbation J44.1 Active 101381692 Problem Esophageal reflux K21.9 Active 527032301 Problem Myalgia M79.1 Active 46544610 Problem Renal dialysis status Z99.2 Active 892668688 Problem Kidney stone N20.0 Active 17859174 Problem Constipation, unspecified constipation type K59.00 Active 19419672 Problem Osteoarthritis of both knees, unspecified osteoarthritis t ype M17.0 Active 196774820 Problem Thyroid nodule E04.1 Active 293614215 Problem Spondylosis without myelopathy or radiculopathy, lumbosacral region M47.817 Active 46998936 Problem DM w/o complication type II E11.9 Active 3134 86582 Problem Avascular necrosis of medial 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 Active 872279556 Problem Chronic kidney disease, unspecified N18.9 Acti ve 176525977 Problem Anxiety state F41.1 Active 480322084 Problem LAYNE (nonalcoholic steatohepatitis) K75.81 Acti ve 391671921 Problem Spondylosis without myelopathy or radiculopathy, lumbar region M47.816 Active 16925743 Problem Hypoxemia R09.02 Active 171242319 Problem Pulmonary nodule, left R91.1 Active 568893001 Problem Frequent falls R29.6 Active 759052214 Problem Hyperparathyroidism E21.3 Active 53021764 Problem Chronic atrial fibrillation I48.2 Active 7545 99904 Problem Hypocalcemia E83.51 Active 8109793 ALLERGIES Allergen (clinical drug ingredient) Drug/Non Drug Allergy do cumented on EMR Reaction Allergy Type Onset Date Status gatifloxacin Gatifloxacin([facility] Code:[address]-17) Anaphylaxis Drug Al lergy Active tequin Anaphylaxis Non Drug Allergy Active azithromycin Azithromycin([facility] Code:[address]-31) dys pnea, face and lips swelling and tingling - seen in the ER 07/2016 Drug Allergy Active ENCOUNTERS from 1955 to 2020-08-24 Encounter Location Date Provider Diagnosis [facility] [place] [address] [facility] [place] [address] Jul, Aiden Nieves IMMUNIZATIONS Vaccine Route Administration Date Status Pneumococcal Adult 0.5mL (Pneumovax 23) Unknown May 17, 2014 Pending Pneumococcal Adult 0.5mL (Pneumovax 23) Unknown Apr 26, 2008 Administered TDAP IM Intramuscular Apr 27, 2013 Administered Pneumococcal 0.5mL (Prevnar 13) IM Intramuscular May 17, 2014 Administered Influenza (6mo & up) Fluzone Unknown May 07, 2016 Adm inistered Influenza (6mo & up) Fluzone Unknown Jun 26, 2015 Adm inistered Zoster 50mcg/0.5mL (Shingrix) IM Intramuscular Aug 15, 2019 A dministered Influenza (6mo & up) Fluzone Unknown May 01, 2013 Adm inistered Influenza (6mo & up) Fluzone Unknown May 21, 2011 Adm inistered Influenza (6mo & up) Fluzone IM Intramuscular May 02, 2010 Ad ministered SOCIAL HISTORY Tobacco Use: Social History Observation Description Date Details (start date - stop date) Former Smoker Sex Assigned At : Social History Observation Description Sex Assigned At Unknown Education: Question Answer Notes Level of Education: Finished High School Language: Question Answer Notes Languages spoken: Luxembourgish Congregational: Question Answer Notes Congregational 21 Mandaen No jew beliefs that would impact health care. Sexual Hx: Question Answer Notes Had sex in the last 12 months (vaginal, oral, or anal)? No Have you ever had an STD? No Alcohol Screening: Question Answer Notes Did you have a drink containing alcohol in the past year? Ye s Points 1 Interpretation Negative How often did you have six or more drinks on one occas ion in the past year? Never (0 points) How many drinks did you have on a typica l day when you were drinking in the past year? 1 or 2 (0 points) How often did you have a drink containing alcohol in t he past year? Monthly or less (1 point) BMI Care Goal Follow-Up Question Answer Notes Above Normal BMI Follow-Up Lifestyle education regarding t Tobacco Use: Question Answer Notes Are you a: former smoker She quit in 4. Prior to that she had acrued a 80 pack year hxSTARTED SMOKING AT 16YRS OLD SMOKED UP TO 2 PPD QUIT 2003/. REASON FOR REFERRAL No Information VITAL SIGNS No information MEDICATIONS Medication SIG (Take, Route, Frequency, Duration) Notes Start Da te End Date Status Ammonium Lactate 12 % 1 application to affected ar ea Externally Twice a day to feet Not-Taking Crestor 20 mg 1 tablet Orally at bedtime for 90 day(s) Active Kyra-Mirella Rx 1 MG 1 tablet Orally Once a day for 30 day(s) Active Metoprolol Tartrate 50 MG 1 tablet with food Orally Twice a day for 30 days Jul, Active Calcium Carbonate 200 MG 2 tablets Orally two tablets with breakfast and one tablet with dinner Active Physical Therapy evaluate and treat as directed DX: R2 9.898, on renal dialysis, pending kidney transplant, DM, 1-3X/week for 1 month May, 7 Active Tiotropium [place]-Olodaterol 2.5-2.5 MCG/ACT 2 puffs Inhalation On ce a day Not-Taking Diazepam 2 MG 2 tablet as needed Orally bid as needed, MDD 8 m g for 28 day(s) Dec, Active Sensipar 30 MG 1 tablet Orally twice a week, THU, THU Active MiraLax 1 1 packet mixed with 8 ounces of fluid Orally once jose y as needed Active Renagel 800 MG 3 tablet with meals Orally Three times a day Not-Taking Senna S 8.6-50 MG 1 tablet in the evening as n eeded Orally twice daily as needed Active One Touch Delica 33 gauge testing twice a day and as n eeded ICD E11.29 for 90 days Aug, Active Sodium Polystyrene Sulfonate 15 GM/60ML 60 ml Orally O nce a day only if told by [place] Active Nebulizer/Tubing/Mouthpiece 1 1 tab(s) 327.23 daily as needed fo r 30 day(s) Feb, Active Drisdol 50,000 units 1 tab oral every other week Active Shower Chair without wheels with back Dx: I50.23, N15. 5, Z99.2 Daily Use for 999 days Active OneTouch Verio - verio flex In Vitro twice a day and as needed (ICD E11.29) for 90 days Aug, Active Oxycodone-Acetaminophen 5-325 MG 1 tablet as needed Or ally every 8 hrs for severe pain (ps 8-10) MDD 3 tabs for 28 day(s) Jul, Active Levothyroxine Sodium 75 MCG 1 tablet on an empty stoma ch in the morning Orally Once a day Active Stiolto Respimat 2.5-2.5 MCG/ACT 2 puffs Inhalation Once a day Not-Taking Calcitriol 0.25 MCG 2 capsules Orally Once a day Jul, 020 Not-Taking May Have Active Anoro Ellipta 62.5-25 MCG/INH 1 puff Inhalation Once a day Active Meclizine HCl 25 mg 1 tablet as needed Orally every 8 hours as n eeded Dec, Not-Taking Estrace 0.1 MG/GM 4gm daily x 2 weeks, then 2g m daily x 2 weeks, then 1gm tiw Vaginal as directed for 28 day(s) Apr, Not-Taking Omeprazole 40 MG 1 capsule Orally Once a day for 90 day(s) Mar, Active Aspirin 325 MG 1 tablet Orally Once a day Active Oxygen as directed concentrator Daily for 99 days 2018 Active Insulin Pen Needle 29G X 12MM DX : E11.29 subcutaneously daily f or 90 day(s) Active Velphoro 500 MG 1 tablet with meals Orally three times daily Not-Taking Lantus 100 UNIT/ML 10 units Subcutaneous at bed time if needed/ DX : E11.9 for 30 days Active Glucometer (Verio IQ) 1 250 vitro Twice a day for 30 day(s) Dec, Active Flexeril 5 1 tab orally three times daily as needed for 30 Days Active Zofran 4 MG 1 tab(s) Orally every eight hours as needed for 15 days Active Trazodone HCl 100 mg 1 tablet at bedtime Orally at bedtime for 30 day s Active Tramadol HCl 50 MG 1 tablet as needed Orally ev marcela 6 hours for moderate pain (ps 5-7) MDD 4 tabs Active PROCEDURES No Information RESULTS No Results REASON FOR VISIT Oxycodone MEDICAL (GENERAL) HISTORY Type Description Date Medical History DM II with nephropathy, goal HBA1c < 7.5 Medical History Stage V CKD (on dialysis with [facility]) Medical History atrial flutter (no anticoagu lation b/c of bleed - managed by Dae). Medical History h/o intraventricular bleed r elated to Coumadin ([facility]) 06/03- Previously followed by Dr Short Medical History HTN/HHD Medical History chronic diastolic heart fail ure (grade 1) - last echocardiogram [facility] 11/2016 Medical History COPD- [facility] Pul: Alicia Savici Medical History secondary hyperparathyroidism Medical History anemia of chronic disease Medical History anxiety Medical History obesity Medical History PRABHJOT (intolerant of BiPAP)- [facility] Pul Medical History Ragadenosine Nuclear Stress @ [facility] 11/2016 - probably normal, no ischemia or infarction noted Medical History carotid ultrasound no significant steno sis 01/2013 Medical History thyroid nodule/FNA neg per Dr Smith Medical History XR Rt Shoulder 11/07 Mod degen change Medical History XR C/T Spine 11/07 Mild degen change Medical History Memory loss since prev intraventricular bleed Medical History MRI Brain 01/07 minimal small vessel disease/areas of hemosiderin and posterior right occipital and temporal lobe secondary to previous hemorrhage/minimal volume loss Medical History Vocal cord dysfunction- referred to ENT [facility] 09/10 Medical History diffuse fibrofatty infiltration liver. Medical History Arthritis Medical History Back pain/Neck pain- [facility] Medical History MRSA 2007 [facility] Medical History KIDNEY STONE Surgical History c-sections 1977, 1985 Surgical History lumbar discectomy 1990 Surgical History breast bx - fibrocystic 04/2000 Surgical History colonoscopy 2001 Surgical History hysterectomy ([place]) - done for heavy bleeding 2002 Surgical History nasal cautery ([facility]) 2002 Surgical History "eye procedure" ([facility] [place]) 2002 Surgical History ventriculostomy ([facility]) 07/03 Surgical History Fistula for dialysis ([facility] ) Surgical History FNA thyroid nodule- Dr Smith 08/09 Surgical History Colonoscopy 04/24/14 - [place] Surgical History 4 teeth pulled -01/2017 Surgical History Ureteroscopy (left) with stent placement 06/2018 Surgical History Cystoscopy with L stent removal 9 Hospitalization History interventricular bleed ([facility]) 200 8 Hospitalization History [facility] Hospitalization History weakness/back pain 03/2010 Hospitalization History Lower Abd Pain/constipation ([facility]) Hospitalization History pneumonia 07/25-07/31/16 Hospitalization History Influenza 10/20/2017 Hospitalization History acute diverticulitus 08/01/2018-07/27 Hospitalization History dizzyness 11/2018 Hospitalization History Shortness of breath - AMA 01/2019 Hospitalization History Dizziness ([facility]) 07/2019 Goals Section No Information Health Concerns No Information MEDICAL EQUIPMENT No Information MENTAL STATUS No Information FUNCTIONAL STATUS No Information ASSESSMENTS No Information PLAN OF TREATMENT Medication Medication Name Sig Start Date Stop Date Oxycodone-Acetaminophen 5-325 MG 1 tablet as needed Or ally every 8 hrs for severe pain (ps 8-10) MDD 3 tabs for 28 day(s) Jul, Insurance Providers Payer Name Payer Address Payer Phone Insured Name Patient Relati onship to Insured Coverage Start Date Coverage End Date MEDICAID [employer] [address] [facility] [id number] JOSE ROGERS MEDICARE Part A and B [address] [facility] [phone] JOSE ROGERS
--- OUTSIDE RECORDS SUMMARY | 2020-09-11 06:04 | CCD ---
Author Author [facility] Organization [facility] Address Unknown Phone Unavailable Care Team Providers Care Controls Operator Molded Goods Name Role Phone Prasad Cesar Unavailable PROBLEMS Type Condition ICD9-CM Code SUE46-ML Code Onset Dates Condition S tatus SNOMED Code Notes Problem Low back pain M54.5 Active 243190860 Problem Pulmonary emphysema, unspecified emphysema type J4 3.9 Active 79995273 Problem Chronic diastolic heart failure I50.32 Active 334244859 Problem Anemia in stage 5 chronic kidney disease N18.5 Active 08214951 Problem Hypertensive chronic kidney disease, stage 5 chronic kidney disease or end stage renal disease I12.0 Active 82023398 Problem PRABHJOT (obstructive sleep apnea) G47.33 Active 78 235954 Problem Hypertensive heart disease with heart failure I11.0 Active 57446991 Problem 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 Active 06970862 Problem Hypertensive chronic kidney disease with stage 5 chronic kidney disease or end stage renal disease I12.0 Active 500417851 Problem Pulmonary nodule R91.1 Active 792339591 Problem Back pain, lumbosacral M54.5 Active 611255190 Problem COPD exacerbation J44.1 Active 663511777 Problem Esophageal reflux K21.9 Active 406650877 Problem Chronic obstructive pulmonary disease J44.9 Ac tive 51365465 Problem Vitamin D deficiency E55.9 Active 37976965 Problem Sacroiliitis, not elsewhere classified M46.1 A ctive 008109520 Problem Spondylosis without myelopathy or radiculopathy, lumbar region M47.816 Active 11791504 Problem Pneumonia due to infectious organism, unspecified laterality, unspecified part of lung J18.9 Active 203265793 Problem DM renal manif type II E11.29 Active 17576198 Problem Mucopurulent chronic bronchitis J41.1 Active 22486454 Problem Hyperparathyroidism E21.3 Active 87546134 Problem 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 Active 2398 63672 Problem Atrial flutter I48.92 Active 1919264 Problem Other chronic pain G89.29 Active 10260902 Problem Mixed hyperlipidemia E78.2 Active 792139698 Problem Myalgia M79.1 Active 11668976 Problem Renal dialysis status Z99.2 Active 739807236 Problem Cervical spondylolysis M43.02 Active 186353979 Problem Chronic kidney disease, stage V N18.5 Active 026358449 Problem Localized osteoarthritis of left knee M17.12 Ac tive 919562223 Problem Kidney stone N20.0 Active 84068837 Problem Constipation, unspecified constipation type K59.00 Active 87015799 Problem Hypocalcemia E83.51 Active 6224202 Problem Chronic kidney disease, unspecified N18.9 Acti ve 341541313 Problem Anxiety state F41.1 Active 755454629 Problem Thyroid nodule E04.1 Active 235241695 Problem Dependence on renal dialysis Z99.2 Active 105 285774 Problem Obstructive sleep apnea G47.33 Active 99479643 Problem Hypoxemia R09.02 Active 025024687 Problem Spondylosis without myelopathy or radiculopathy, lumbosacral region M47.817 Active 83011039 Problem DM w/o complication type II E11.9 Active 3494 24091 Problem Osteoarthritis of both knees, unspecified osteoarthritis t ype M17.0 Active 630207671 Problem Pulmonary nodule, left R91.1 Active 580419428 Problem LAYNE (nonalcoholic steatohepatitis) K75.81 Acti ve 919083010 Problem Frequent falls R29.6 Active 989111248 Problem Chronic atrial fibrillation I48.2 Active 4678 22281 ALLERGIES Allergen (clinical drug ingredient) Drug/Non Drug Allergy do cumented on EMR Reaction Allergy Type Onset Date Status gatifloxacin Gatifloxacin([facility] Code:[address]-07) Anaphylaxis Drug Al lergy Active tequin Anaphylaxis Non Drug Allergy Active azithromycin Azithromycin([facility] Code:[address]-50) dys pnea, face and lips swelling and tingling - seen in the ER 07/2016 Drug Allergy Active ENCOUNTERS from 1955 to 2020-08-01 Encounter Location Date Provider Diagnosis [facility] [place] [address] Jul, Prasad Arsenio IMMUNIZATIONS Vaccine Route Administration Date Status Pneumococcal 0.5mL (Prevnar 13) IM Intramuscular May 17, 2014 Administered TDAP IM Intramuscular Apr 27, 2013 Administered Pneumococcal Adult 0.5mL (Pneumovax 23) Unknown May 17, 2014 Pending Pneumococcal Adult 0.5mL (Pneumovax 23) Unknown Apr 26, 2008 Administered Influenza (6mo & up) Fluzone Unknown [...] School Language: Question Answer Notes Languages spoken: Thai Sabianism: Question Answer Notes Sabianism 21 Adventism No faith beliefs that would impact health care. Sexual [...] Notes Start Da te End Date Status Glucometer (Verio IQ) 1 250 vitro Twice a day for 30 day(s) Dec, Active Sodium Polystyrene Sulfonate 15 GM/60ML 60 ml Orally O nce a day only if told by [place] Active Meclizine HCl 25 mg 1 tablet as needed Orally every 8 hours as n eeded Dec, Not-Taking Drisdol 50,000 units 1 tab oral every other week Active Metoprolol Tartrate 50 MG 1 tablet with food Orally Twice a day for 30 days Jul, Active Stiolto Respimat 2.5-2.5 MCG/ACT 2 puffs Inhalation Once a day Not-Taking Lantus 100 UNIT/ML 10 units Subcutaneous at bed time if needed/ DX : E11.9 for 30 days Active Shower Chair without wheels with back Dx: I50.23, N15. 5, Z99.2 Daily Use for 999 days Active Estrace 0.1 MG/GM 4gm daily x 2 weeks, then 2g m daily x 2 weeks, then 1gm tiw Vaginal as directed for 28 day(s) Apr, Not-Taking Flexeril 5 1 tab orally three times daily as needed for 30 Days Active Nebulizer/Tubing/Mouthpiece 1 1 tab(s) 327.23 daily as needed fo r 30 day(s) Feb, Active Velphoro 500 MG 1 tablet with meals Orally three times daily Not-Taking Tramadol HCl 50 MG 1 tablet as needed Orally ev marcela 6 hours for moderate pain (ps 5-7) MDD 4 tabs Active Omeprazole 40 MG 1 capsule Orally Once a day for 90 day(s) Mar, Active Insulin Pen Needle 29G X 12MM DX : E11.29 subcutaneously daily f or 90 day(s) Active Trazodone HCl 100 mg 1 tablet at bedtime Orally at bedtime for 30 day s Active One Touch Delica 33 gauge testing twice a day and as n eeded ICD E11.29 for 90 days Aug, Active Calcitriol 0.25 MCG 2 capsules Orally Once a day Jul, 020 Not-Taking OneTouch Verio - verio flex In Vitro twice a day and as needed (ICD E11.29) for 90 days Aug, Active Diazepam 2 MG 2 tablet as needed Orally bid as needed, MDD 8 m g for 28 day(s) Dec, Active Senna S 8.6-50 MG 1 tablet in the evening as n eeded Orally twice daily as needed Active Calcium Carbonate 200 MG 2 tablets Orally two tablets with breakfast and one tablet with dinner Active Crestor 20 mg 1 tablet Orally at bedtime for 90 day(s) Active Levothyroxine Sodium 75 MCG 1 tablet on an empty stoma ch in the morning Orally Once a day Active Ammonium Lactate 12 % 1 application to affected ar ea Externally Twice a day to feet Not-Taking Renagel 800 MG 3 tablet with meals Orally Three times a day Not-Taking May Have Active MiraLax 1 1 packet mixed with 8 ounces of fluid Orally once jose y as needed Active Zofran 4 MG 1 tab(s) Orally every eight hours as needed for 15 days Active Sensipar 30 MG 1 tablet Orally twice a week, THU, THU Active Tiotropium [place]-Olodaterol 2.5-2.5 MCG/ACT 2 puffs Inhalation On a day Not-Taking Aspirin 325 MG 1 tablet Orally Once a day Active Physical Therapy evaluate and treat as directed DX: R2 9.898, on renal dialysis, pending kidney transplant, DM, 1-3X/week for 1 month May, 7 Active Anoro Ellipta 62.5-25 MCG/INH 1 puff Inhalation Once a day Active Kyra-Mirella Rx 1 MG 1 tablet Orally Once a day for 30 day(s) Active Oxycodone-Acetaminophen 5-325 MG 1 tablet as needed Or ally every 8 hrs for severe pain (ps 8-10) MDD 3 tabs Active Oxygen as directed concentrator Daily for 99 days 2018 Active PROCEDURES No Information RESULTS No Results REASON FOR VISIT [facility] 07/26;[facility] MEDICAL (GENERAL) HISTORY Type Description Date Medical [...] fail ure (grade 1) - last echocardiogram [facility] 11/2016 Medical History COPD- [facility] Pul: Alicia Shipman Medical History secondary hyperparathyroidism Medical History anemia of chronic disease Medical History anxiety Medical History obesity Medical History PRABHJOT (intolerant of BiPAP)- [facility] Pul Medical History Ragadenosine Nuclear Stress @ [facility] 11/2016 - probably normal, no ischemia or [...] History Arthritis Medical History Back pain/Neck pain- [facility] Medical History MRSA 2007 [facility] Medical History KIDNEY STONE Surgical History c-sections 1977, 1985 Surgical History lumbar discectomy 1979, 1990 Surgical History breast bx - fibrocystic 04/2000 Surgical History colonoscopy 2001 Surgical History hysterectomy ([place]) - done for heavy bleeding 2002 Surgical History [facility] cautery ([facility]) 2002 Surgical History "eye procedure" ([facility] - [place]) 2002 Surgical History ventriculostomy ([facility]) 07/03 Surgical History Fistula for dialysis ([facility] ) Surgical History FNA thyroid nodule- Dr [...] pain 03/2010 Hospitalization History Lower Abd Pain/constipation ([facility]) Hospitalization History pneumonia 07/25-07/31/16 Hospitalization History Influenza 10/20/2017 Hospitalization History acute diverticulitus 08/01/2018-07/27 Hospitalization History dizzyness 11/2018 Hospitalization History Shortness of breath - AMA 01/2019 Hospitalization History Dizziness ([facility]) 07/2019 Goals Section No Information Health Concerns No Information MEDICAL EQUIPMENT No Information MENTAL STATUS No Information FUNCTIONAL STATUS No Information ASSESSMENTS Encounter Date Diagnosis Assessment Notes Treatment Notes Treatm ent Clinical Notes Jul, Other [id number] @ 134 0: Education Technician called and spoke with pt. Pt reports she is doing terrible. Pt reports she is having a lot of lower back pain. Pt reports she will see Dr. Munoz at [facility] tomorrow for this pain and her knees. Pt verified current medications. Pt confirmed upcoming appointment. Pt does not have any other questions or concerns at this time. Cary Gillis RN. PLAN OF TREATMENT Next Appt Details Provider Name:Prasad Cesar, 2020-08-03 10:45:00 AM, [address] [place], [address], Insurance Providers Payer Name Payer Address Payer Phone Insured Name Patient Relati onship to Insured Coverage Start Date Coverage End Date MEDICAID [employer] [address] [facility] [id number] JOSE ROGERS MEDICARE Part A and B [address] [facility] [id number] JOSE ROGERS
--- OUTSIDE RECORDS SUMMARY | 2020-09-11 06:05 | CCD ---
Author Author [facility] Organization [facility] Address Unknown Phone Unavailable Care Team Providers Care Supervisor [employer] Name Role Phone Aiden Nieves Unavailable PROBLEMS Type Condition ICD9-CM Code OVD85-MV Code Onset Dates Condition S tatus SNOMED Code Notes Problem Low back pain M54.5 Active 434224715 Problem Pulmonary emphysema, unspecified emphysema type J4 3.9 Active 08176560 Problem Chronic diastolic heart failure I50.32 Active 956832913 Problem Anemia in stage 5 chronic kidney disease N18.5 Active 74099243 Problem Hypertensive chronic kidney disease, stage 5 chronic kidney disease or end stage renal disease I12.0 Active 80160215 Problem PRABHJOT (obstructive sleep apnea) G47.33 Active 78 679400 Problem Hypertensive heart disease with heart failure I11.0 Active 58688271 Problem 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 Active 93564966 Problem Hypertensive chronic kidney disease with stage 5 chronic kidney disease or end stage renal disease I12.0 Active 038875450 Problem Pulmonary nodule R91.1 Active 959956914 Problem Back pain, lumbosacral M54.5 Active 522993141 Problem COPD exacerbation J44.1 Active 100386310 Problem Esophageal reflux K21.9 Active 134798748 Problem Chronic obstructive pulmonary disease J44.9 Ac tive 24425786 Problem Vitamin D deficiency E55.9 Active 52019158 Problem Sacroiliitis, not elsewhere classified M46.1 A ctive 476610346 Problem Spondylosis without myelopathy or radiculopathy, lumbar region M47.816 Active 21783899 Problem Pneumonia due to infectious organism, unspecified laterality, unspecified part of lung J18.9 Active 473985197 Problem DM renal manif type II E11.29 Active 62841060 Problem Mucopurulent chronic bronchitis J41.1 Active 47565330 Problem Hyperparathyroidism E21.3 Active 78142282 Problem 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 Active 2398 03158 Problem Atrial flutter I48.92 Active 2155813 Problem Other chronic pain G89.29 Active 27506316 Problem Mixed hyperlipidemia E78.2 Active 906417306 Problem Myalgia M79.1 Active 69053622 Problem Renal dialysis status Z99.2 Active 299319432 Problem Cervical spondylolysis M43.02 Active 820129621 Problem Chronic kidney disease, stage V N18.5 Active 319321446 Problem Localized osteoarthritis of left knee M17.12 Ac tive 118873080 Problem Kidney stone N20.0 Active 23667847 Problem Constipation, unspecified constipation type K59.00 Active 06645611 Problem Hypocalcemia E83.51 Active 0724006 Problem Chronic kidney disease, unspecified N18.9 Acti ve 166642050 Problem Anxiety state F41.1 Active 893911070 Problem Thyroid nodule E04.1 Active 773511987 Problem Dependence on renal dialysis Z99.2 Active 105 695308 Problem Obstructive sleep apnea G47.33 Active 76753595 Problem Hypoxemia R09.02 Active 319711578 Problem Spondylosis without myelopathy or radiculopathy, lumbosacral region M47.817 Active 81104024 Problem DM w/o complication type II E11.9 Active 3134 46483 Problem Osteoarthritis of both knees, unspecified osteoarthritis t ype M17.0 Active 881634119 Problem Pulmonary nodule, left R91.1 Active 185380064 Problem LAYNE (nonalcoholic steatohepatitis) K75.81 Acti ve 358822123 Problem Frequent falls R29.6 Active 121895365 Problem Chronic atrial fibrillation I48.2 Active 7236 95486 ALLERGIES Allergen (clinical drug ingredient) Drug/Non Drug Allergy do cumented on EMR Reaction Allergy Type Onset Date Status gatifloxacin Gatifloxacin(NDC Code:[address]-53) Anaphylaxis Drug Al lergy Active tequin Anaphylaxis Non Drug Allergy Active azithromycin Azithromycin(NDC Code:[address]-43) dys pnea, face and lips swelling and tingling - seen in the ER 07/2016 Drug Allergy Active ENCOUNTERS from 1955 to 2020-07-24 Encounter Location Date Provider Diagnosis [facility] [address] [place] [id number] Jun, Aiden Mayersd Anxiety state F41.1 IMMUNIZATIONS Vaccine Route Administration Date Status Pneumococcal [...] School Language: Question Answer Notes Languages spoken: Welsh Zoroastrianism: Question Answer Notes Zoroastrianism 21 Uats[place] No anabaptism beliefs that would impact health care. Sexual [...] Notes Start Da te End Date Status Meclizine HCl 25 mg 1 tablet as needed Orally every 8 hours as n eeded Dec, Active Crestor 20 mg 1 tablet Orally at bedtime for 90 day(s) Active Lantus 100 UNIT/ML 10 units Subcutaneous at bed time if needed/ DX : E11.9 for 30 days Active Ammonium Lactate 12 % 1 application to affected ar ea Externally Twice a day to feet Not-Taking Insulin Pen Needle 29G X 12MM DX : E11.29 subcutaneously daily f or 90 day(s) Active Aspirin 325 MG 1 tablet Orally Once a day Active Estrace 0.1 MG/GM 4gm daily x 2 weeks, then 2g m daily x 2 weeks, then 1gm tiw Vaginal as directed for 28 day(s) Apr, Not-Taking Diazepam 2 MG 2 tablet as needed Orally bid as needed, MDD 8 m g for 28 day(s) Dec, Active One Touch Delica 33 gauge as directed subcutaneously tid, Dx : 250 for 30 day(s) Dec, Active MiraLax 1 1 packet mixed with 8 ounces of fluid Orally once jose y as needed Active Jackson 5-325 MG 1 tablet as needed Orally bid prn MDD #2 for 28 day(s) Jun, Active Calcitriol 0.25 MCG 2 capsules Orally Once a day Jul, 020 Active Glucose strip (Verio IQ) 1 E11.9 vitro Twice a day for 30 day(s) Dec, Active Anoro Ellipta 62.5-25 MCG/INH 1 puff Inhalation Once a day Active Levothyroxine Sodium 75 MCG 1 tablet on an empty stoma ch in the morning Orally Once a day Active Glucometer (Verio IQ) 1 250 vitro Twice a day for 30 day(s) Dec, Active One Touch Delica 33 gauge testing twice a day and as n eeded ICD E11.29 for 90 days Aug, Active Stiolto Respimat 2.5-2.5 MCG/ACT 2 puffs Inhalation Once a day Active Calcium Carbonate 500 MG 2 tablets Orally two tablets with breakfast and one tablet with dinner Active OneTouch Verio - verio flex In Vitro twice a day and as needed (ICD E11.29) for 90 days Aug, Active Metoprolol Tartrate 50 MG 1 tablet with food Orally Twice a day for 30 days Jul, Active Renagel 800 MG 3 tablet with meals Orally Three times a day Not-Taking Sensipar 30 MG 1 tablet Orally twice a week, Thu Active Velphoro 500 MG 1 tablet with meals Orally three times daily Not-Taking May Have Active Tiotropium [place]-Olodaterol 2.5-2.5 MCG/ACT 2 puffs Inhalation On a day Not-Taking Nebulizer/Tubing/Mouthpiece 1 1 tab(s) 327.23 daily as needed fo r 30 day(s) Feb, Active Flexeril 5 1 tab orally three times daily as needed for 30 Days Active Shower Chair without wheels with back Dx: I50.23, N15. 5, Z99.2 Daily Use for 999 days Active Drisdol 50,000 units 1 tab oral every other week Active Physical Therapy evaluate and treat as directed DX: R2 9.898, on renal dialysis, pending kidney transplant, DM, 1-3X/week for 1 month May, 7 Active Oxygen as directed concentrator Daily for 99 days 21 2018 Active Kyra-Mirella Rx 1 MG 1 tablet Orally Once a day for 30 day(s) Active Senna S 8.6-50 MG 1 tablet in the evening as n eeded Orally twice daily as needed Active Sodium Polystyrene Sulfonate 15 GM/60ML 60 ml Orally O nce a day only if told by [place] Active Zofran 4 MG 1 tab(s) Orally every eight hours as needed for 15 days Active Trazodone HCl 100 mg 1 tablet at bedtime Orally at bedtime for 30 day s Active Omeprazole 40 MG 1 capsule Orally Once a day for 90 day(s) Mar, Active PROCEDURES No Information RESULTS No Results REASON FOR VISIT med fill MEDICAL (GENERAL) HISTORY Type Description Date Medical History DM II with nephropathy, goal HBA1c < 7.5 Medical History Stage V CKD (on dialysis with [facility]) Medical History atrial flutter (no anticoagu lation b/c of bleed - managed by Dae). Medical History h/o intraventricular bleed r elated to Coumadin ([facility]) 06/03- Previously followed by Dr Short Medical History HTN/HHD Medical History chronic diastolic heart fail ure (grade 1) - last echocardiogram [facility] 11/2016 Medical History COPD- [facility] Pul: Alicia Shipman Medical History secondary hyperparathyroidism Medical History anemia of chronic disease Medical History anxiety Medical History obesity Medical History PRABHJOT (intolerant of BiPAP)- [facility] Pul Medical History Ragadenosine Nuclear Stress @ [facility] 11/2016 - probably normal, no ischemia or [...] History Vocal cord dysfunction- referred to ENT [facility] 09/10 Medical History diffuse fibrofatty infiltration liver. Medical History Arthritis Medical History Back pain/Neck pain- [facility] Medical History MRSA 2007 [facility] Medical History KIDNEY STONE Surgical History c-sections 1977, 1985 Surgical History lumbar discectomy 1979, 1990 Surgical History breast bx - fibrocystic 04/2000 Surgical History colonoscopy 2001 Surgical History hysterectomy ([facility]) - done for heavy bleeding 2002 Surgical History [facility] 2002 Surgical History "eye procedure" ([place]) 2002 Surgical History ventriculostomy ([facility]) 07/03 Surgical History Fistula for dialysis ([facility] ) Surgical History FNA thyroid nodule- Dr Smith 08/09 Surgical History Colonoscopy 04/24/14 - [place] Surgical History 4 teeth pulled -01/2017 Surgical History Ureteroscopy (left) with stent placement 06/2018 Surgical History Cystoscopy with L stent removal 9 Hospitalization History interventricular bleed ([facility]) 200 8 Hospitalization History [facility] Hospitalization History weakness/back pain 03/2010 Hospitalization History Lower Abd Pain/constipation ([facility]) Hospitalization History pneumonia 07/25-07/31/16 Hospitalization History Influenza 10/20/2017 Hospitalization History acute diverticulitus 08/01/2018-07/27 Hospitalization History dizzyness 11/2018 Hospitalization History Shortness of breath - [facility] 01/2019 Hospitalization History Dizziness ([facility]) 07/2019 Goals Section No Information Health Concerns No Information MEDICAL EQUIPMENT No Information MENTAL STATUS No Information FUNCTIONAL STATUS No Information ASSESSMENTS Encounter Date Diagnosis Assessment Notes Treatment Notes Treatm ent Clinical Notes Jun, Anxiety state (ICD-10 - F41.1) PLAN OF TREATMENT Medication Medication Name Sig Start Date Stop Date Trazodone HCl 100 mg 1 tablet at bedtime Orally at bedtime for 3 0 days Omeprazole 40 MG 1 capsule Orally Once a day for 90 day(s) 2017 Metoprolol Tartrate 50 MG 1 tablet with food Orally Twice a day for 30 days Jul, Zofran 4 MG 1 tab(s) Orally every eight hours as needed for 15 days Jackson 5-325 MG 1 tablet as needed Orally bid prn MDD #2 for 28 day(s) Jun, Crestor 20 mg 1 tablet Orally at bedtime for 90 day(s) Diazepam 2 MG 2 tablet as needed Orally bid as needed, MDD 8 mg for 28 day(s) Dec, Insurance Providers Payer Name Payer Address Payer Phone Insured Name Patient Relati onship to Insured Coverage Start Date Coverage End Date MEDICARE Part A and B [address] [facility] [id number] JOSE ROGERS MEDICAID [employer] [address] [facility] [id number] JOSE ROGERS
--- OUTSIDE RECORDS SUMMARY | 2020-09-11 06:06 | CCD ---
Author Author [facility] Organization [facility] Address Unknown Phone Unavailable Care Team Providers Care Window Installation Subcontractor Name Role Phone Peggy Avila MD Unavailable Unavailable Peggy Avila MD Unavailable Unavailable Peggy Avila MD Unavailable Unavailable Peggy Avila MD Unavailable Unavailable Peggy Avila MD Unavailable Unavailable Peggy Avila MD Unavailable Unavailable Peggy Avila MD Unavailable Unavailable Peggy Avila MD Unavailable Unavailable Peggy Avila MD Unavailable Unavailable Peggy Avila MD Unavailable Unavailable Peggy Avila MD Unavailable Unavailable Peggy Avila MD Unavailable Unavailable Peggy Avila MD Unavailable Unavailable Peggy Avila MD Unavailable Unavailable Peggy Avila MD Unavailable Unavailable Pegyg Avila MD Unavailable Unavailable Avila , Peggy Moreno Unavailable Unavailable Avila , Peggy Moreno Unavailable Unavailable Avila , Peggy Moreno Unavailable Unavailable Avila , Peggy Moreno Unavailable Unavailable Avila , Peggy Moreno Unavailable Unavailable Avila , Peggy Moreno Unavailable Unavailable Avila , Peggy Moreno Unavailable Unavailable Avila , Peggytomasa Moreno Unavailable Unavailable Avila , Peggytomasa Moreno Unavailable Unavailable Avila , Peggy Moreno Unavailable Unavailable Avila , Peggy Moreno Unavailable Unavailable Avila , Peggy Moreno Unavailable Unavailable Avila , Peggy Moreno Unavailable Unavailable Avila , Peggy Moreno Unavailable Unavailable Avila , Peggy Moreno Unavailable Unavailable Avila , Peggytomasa Moreno Unavailable Unavailable Avila , Peggytomasa Moreno Unavailable Unavailable Avila , Peggy Moreno Unavailable Unavailable Avila , Peggy Moreno Unavailable Unavailable Avila , Peggy Moreno Unavailable Unavailable Avila , Peggy Moreno Unavailable Unavailable SAVICI, Lamont SABILLON MD Unavailable Unavailable SAVICI, Lamont SABILLON MD Unavailable Unavailable SAVICI, Lamont SABILLON MD Unavailable Unavailable SAVICI, Lamont SABILLON MD Unavailable Unavailable SAVICI, Lamont SABILLON MD Unavailable Unavailable SAVICI, Lamont SABILLON MD Unavailable Unavailable SAVICI, Lamont SABILLON MD Unavailable Unavailable SAVICI, Lamont SABILLON MD Unavailable Unavailable SAVICI, Lamont SABILLON MD Unavailable Unavailable SAVICI, Lamont SABILLON MD Unavailable Unavailable SAVICI, Lamont SABILLON MD Unavailable Unavailable SAVICI, Lamont SABILLON MD Unavailable Unavailable SAVICI, Lamont SABILLON MD Unavailable Unavailable SAVICI, Lamont SABILLON MD Unavailable Unavailable SAVICI, Lamont SABILLON MD Unavailable Unavailable SAVICI, Lamont SABILLON MD Unavailable Unavailable SAVICI, Lamont SABILLON MD Unavailable Unavailable SAVICI, Lamont SABILLON MD Unavailable Unavailable SAVICI, Lamont SABILLON MD Unavailable Unavailable SAVICI, Lamont SABILLON MD Unavailable Unavailable SAVICI, Lamont SABILLON MD Unavailable Unavailable SAVICI, Lamont SABILLON MD Unavailable Unavailable SAVICI, Lamont SABILLON MD Unavailable Unavailable SAVICI, Lamont SABILLON MD Unavailable Unavailable SAVICI, Lamont SABILLON MD Unavailable Unavailable SAVICI, Lamont SABILLON MD Unavailable Unavailable SAVICI, Lamont SABILLON MD Unavailable Unavailable SAVICI, Lamont SABILLON MD Unavailable Unavailable SAVICI, Lamont SABILLON MD Unavailable Unavailable SAVICI, Lamont SABILLON MD Unavailable Unavailable SAVICI, Lamont SABILLON MD Unavailable Unavailable SAVICI, Lamont SABILLON MD Unavailable Unavailable SAVICI, Lamont SABILLON MD Unavailable Unavailable SAVICI, Lamont SABILLON MD Unavailable Unavailable SAVICI, Lamont SABILLON MD Unavailable Unavailable SAVJANN, Lamont SABILLON MD Unavailable Unavailable SAVICI, Lamont SABILLON MD Unavailable Unavailable SAVICI, Lamont SABILLON MD Unavailable Unavailable SAVICI, Lamont SABILLON MD Unavailable Unavailable SAVICI, Lamont SABILLON MD Unavailable Unavailable SAVICI, Lamont SABILLON MD Unavailable Unavailable SAVICI, Lamont SABILLON MD Unavailable Unavailable SAVICI, Lamont SABILLON MD Unavailable Unavailable SAVICI, Lamont SABILLON MD Unavailable Unavailable SAVICI, Lamont SABILLON MD Unavailable Unavailable SAVICI, Lamont SABILLON MD Unavailable Unavailable SAVICI, Lamont SABILLON MD Unavailable Unavailable SAVICI, Lamont SABILLON MD Unavailable Unavailable SAVICI, Lamont SABILLON MD Unavailable Unavailable SAVICI, Lamont SABILLON MD Unavailable Unavailable SAVICI, Lamont SABILLON MD Unavailable Unavailable SAVICI, Lamont SABILLON MD Unavailable Unavailable Avila Peggy TAVERA Unavailable Unavailable Avila Peggy TAVERA Unavailable Unavailable Avila Peggy TAVERA Unavailable Unavailable Avila Peggy TAVERA Unavailable Unavailable Avila Peggy TAVERA Unavailable Unavailable Avila Peggy TAVERA Unavailable Unavailable Avila Peggy TAVERA Unavailable Unavailable Avila Peggy TAVERA Unavailable Unavailable Avila Peggy TAVERA Unavailable Unavailable Avila Peggy TAVERA Unavailable Unavailable Avila Peggy TAVERA Unavailable Unavailable Avila Peggy TAVERA Unavailable Unavailable Avila Peggy TAVERA Unavailable Unavailable Avila Peggy TAVERA Unavailable Unavailable Avila Peggy TAVERA Unavailable Unavailable Avila Peggy TAVERA Unavailable Unavailable Avila Peggy TAVERA Unavailable Unavailable Avila Peggy TAVERA Unavailable Unavailable Avila Peggy TAVERA Unavailable Unavailable Avila Peggy TAVERA Unavailable Unavailable Avila Peggy TAVERA Unavailable Unavailable Avila Peggy TAVERA Unavailable Unavailable Avila Peggy TAVERA Unavailable Unavailable Avila Peggy TAVERA Unavailable Unavailable Avila Peggy TAVERA Unavailable Unavailable Avila Peggy TAVERA Unavailable Unavailable Avila Peggy TAVERA Unavailable Unavailable Avila Peggy TAVERA Unavailable Unavailable Avila Peggy TAVERA Unavailable Unavailable Avila Peggy TAVERA Unavailable Unavailable Avila Peggy TAVERA Unavailable Unavailable Avila Peggy TAVERA Unavailable Unavailable Avila Peggy TAVERA Unavailable Unavailable Avila Peggy TAVERA Unavailable Unavailable Avila Peggy TAVERA Unavailable Unavailable Avila Peggy TAVERA Unavailable Unavailable Avila Peggy TAVERA Unavailable Unavailable ASHISH RAE MD Unavailable Unavailable ASHISH RAE MD Unavailable Unavailable ASHISH RAE MD Unavailable Unavailable ASHISH RAE MD Unavailable Unavailable ASHISH RAE MD Unavailable Unavailable ASHISH RAE MD Unavailable Unavailable ASHISH RAE MD Unavailable Unavailable ASHISH RAE MD Unavailable Unavailable ASHISH RAE MD Unavailable Unavailable ASHISH RAE MD Unavailable Unavailable ASHISH RAE MD Unavailable Unavailable ASHISH RAE MD Unavailable Unavailable ASHISH RAE MD Unavailable Unavailable ASHISH RAE MD Unavailable Unavailable ASHISH RAE MD Unavailable Unavailable ASHISH RAE MD Unavailable Unavailable ASHISH RAE MD Unavailable Unavailable ASHISH RAE MD Unavailable Unavailable ASHISH RAE MD Unavailable Unavailable ASHISH RAE MD Unavailable Unavailable ASHISH RAE MD Unavailable Unavailable ASHISH RAE MD Unavailable Unavailable ASHISH RAE MD Unavailable Unavailable ASHISH RAE MD Unavailable Unavailable ASHISH RAE MD Unavailable Unavailable ASHISH RAE MD Unavailable Unavailable ASHISH RAE MD Unavailable Unavailable ASHISH RAE MD Unavailable Unavailable ASHISH RAE MD Unavailable Unavailable ASHISH RAE MD Unavailable Unavailable ASHISH RAE MD Unavailable Unavailable ASHISH RAE MD Unavailable Unavailable ASHISH RAE MD Unavailable Unavailable ASHISH RAE MD Unavailable Unavailable ASHISH RAE MD Unavailable Unavailable ASHISH RAE MD Unavailable Unavailable ASHISH RAE MD Unavailable Unavailable ASHISH RAE MD Unavailable Unavailable ASHISH RAE MD Unavailable Unavailable ASHISH RAE MD Unavailable Unavailable ASHISH RAE MD Unavailable Unavailable ASHISH RAE MD Unavailable Unavailable ASHISH RAE MD Unavailable Unavailable ASHISH RAE MD Unavailable Unavailable ASHISH RAE MD Unavailable Unavailable ASHISH RAE MD Unavailable Unavailable ASHISH RAE MD Unavailable Unavailable ASHISH RAE MD Unavailable Unavailable ASHISH RAE MD Unavailable Unavailable ASHISH RAE MD Unavailable Unavailable ASHISH RAE MD Unavailable Unavailable ASHISH RAE MD Unavailable Unavailable ASHISH RAE MD Unavailable Unavailable ASHISH RAE MD Unavailable Unavailable ASHISH RAE MD Unavailable Unavailable ASHISH RAE MD Unavailable Unavailable ASHISH RAE MD Unavailable Unavailable ASHISH RAE MD Unavailable Unavailable ASHISH RAE MD Unavailable Unavailable ASHISH RAE MD Unavailable Unavailable ASHISH RAE MD Unavailable Unavailable ASHISH RAE MD Unavailable Unavailable ASHISH RAE MD Unavailable Unavailable ASHISH RAE MD Unavailable Unavailable ASHISH RAE MD Unavailable Unavailable ASHISH RAE MD Unavailable Unavailable Roman Nieves MD Unavailable Unavailable Roman Nieves MD Unavailable Unavailable Roman Nieves MD Unavailable Unavailable Roman Nieves MD Unavailable Unavailable Roman Nieves MD Unavailable Unavailable Roman Nieves MD Unavailable Unavailable Roman Nieves MD Unavailable Unavailable Roman Nieves MD Unavailable Unavailable Roman Nieves MD Unavailable Unavailable Roman Nieves MD Unavailable Unavailable Roman Nieves MD Unavailable Unavailable Roman Nieves MD Unavailable Unavailable Roman Nieves MD Unavailable Unavailable Roman Nieves MD Unavailable Unavailable Roman Nieves MD Unavailable Unavailable Roman Nieves MD Unavailable Unavailable Roman Nieves MD Unavailable Unavailable Roman Nieves MD Unavailable Unavailable Roman Nieves MD Unavailable Unavailable Roman Nieves MD Unavailable Unavailable Roman Nieves MD Unavailable Unavailable Roman Nieves MD Unavailable Unavailable Roman Nieves MD Unavailable Unavailable Roman Nieves MD Unavailable Unavailable Roman Nieves MD Unavailable Unavailable Roman Nieves MD Unavailable Unavailable Roman Nieves MD Unavailable Unavailable Roman Nieves MD Unavailable Unavailable Roman Nieves MD Unavailable Unavailable Roman Nieves MD Unavailable Unavailable Roman Nieves MD Unavailable Unavailable Roman Nieves MD Unavailable Unavailable Roman Nieves MD Unavailable Unavailable Roman Nieves MD Unavailable Unavailable Roman Nieves MD Unavailable Unavailable Roman Nieves MD Unavailable Unavailable Roman Nieves MD Unavailable Unavailable Roman Nieves MD Unavailable Unavailable Roman Nieves MD Unavailable Unavailable oRman Nieves MD Unavailable Unavailable Roman Nieves MD Unavailable Unavailable Roman Nieves MD Unavailable Unavailable Roman Nieves MD Unavailable Unavailable Roman Nieves MD Unavailable Unavailable Roman Nieves MD Unavailable Unavailable Roman Nieves MD Unavailable Unavailable Roman Nieves MD Unavailable Unavailable Roman Nieves MD Unavailable Unavailable Roman Nieves MD Unavailable Unavailable Roman Nieves MD Unavailable Unavailable Roman Nieves MD Unavailable Unavailable Roman Nieves MD Unavailable Unavailable Roman Nieves MD Unavailable Unavailable Roman Nieves MD Unavailable Unavailable Sandy CORDERO Unavailable Unavailable ALIASES , DEFAULT / GENERIC / UNKNOWN PROVIDER * Unavailable Unavailable ALIASES , DEFAULT / GENERIC / UNKNOWN PROVIDER * Unavailable Unavailable ALIASES , DEFAULT / GENERIC / UNKNOWN PROVIDER * Unavailable Unavailable ALIASES , DEFAULT / GENERIC / UNKNOWN PROVIDER * Unavailable Unavailable ALIASES , DEFAULT / GENERIC / UNKNOWN PROVIDER * Unavailable Unavailable ALIASES , DEFAULT / GENERIC / UNKNOWN PROVIDER * Unavailable Unavailable ALIASES , DEFAULT / GENERIC / UNKNOWN PROVIDER * Unavailable Unavailable ALIASES , DEFAULT / GENERIC / UNKNOWN PROVIDER * Unavailable Unavailable ALIASES , DEFAULT / GENERIC / UNKNOWN PROVIDER * Unavailable Unavailable ALIASES , DEFAULT / GENERIC / UNKNOWN PROVIDER * Unavailable Unavailable ALIASES , DEFAULT / GENERIC / UNKNOWN PROVIDER * Unavailable Unavailable ALIASES , DEFAULT / GENERIC / UNKNOWN PROVIDER * Unavailable Unavailable ALIASES , DEFAULT / GENERIC / UNKNOWN PROVIDER * Unavailable Unavailable ALIASES , DEFAULT / GENERIC / UNKNOWN PROVIDER * Unavailable Unavailable ALIASES , DEFAULT / GENERIC / UNKNOWN PROVIDER * Unavailable Unavailable ALIASES , DEFAULT / GENERIC / UNKNOWN PROVIDER * Unavailable Unavailable ALIASES , DEFAULT / GENERIC / UNKNOWN PROVIDER * Unavailable Unavailable ALIASES , DEFAULT / GENERIC / UNKNOWN PROVIDER * Unavailable Unavailable ALIASES , DEFAULT / GENERIC / UNKNOWN PROVIDER * Unavailable Unavailable ALIASES , DEFAULT / GENERIC / UNKNOWN PROVIDER * Unavailable Unavailable ALIASES , DEFAULT / GENERIC / UNKNOWN PROVIDER * Unavailable Unavailable ALIASES , DEFAULT / GENERIC / UNKNOWN PROVIDER * Unavailable Unavailable ALIASES , DEFAULT / GENERIC / UNKNOWN PROVIDER * Unavailable Unavailable ALIASES , DEFAULT / GENERIC / UNKNOWN PROVIDER * Unavailable Unavailable ALIASES , DEFAULT / GENERIC / UNKNOWN PROVIDER * Unavailable Unavailable ALIASES , DEFAULT / GENERIC / UNKNOWN PROVIDER * Unavailable Unavailable ALIASES , DEFAULT / GENERIC / UNKNOWN PROVIDER * Unavailable Unavailable ALIASES , DEFAULT / GENERIC / UNKNOWN PROVIDER * Unavailable Unavailable ALIASES , DEFAULT / GENERIC / UNKNOWN PROVIDER * Unavailable Unavailable ALIASES , DEFAULT / GENERIC / UNKNOWN PROVIDER * Unavailable Unavailable ALIASES , DEFAULT / GENERIC / UNKNOWN PROVIDER * Unavailable Unavailable ALIASES , DEFAULT / GENERIC / UNKNOWN PROVIDER * Unavailable Unavailable ALIASES , DEFAULT / GENERIC / UNKNOWN PROVIDER * Unavailable Unavailable ALIASES , DEFAULT / GENERIC / UNKNOWN PROVIDER * Unavailable Unavailable ALIASES , DEFAULT / GENERIC / UNKNOWN PROVIDER * Unavailable Unavailable ALIASES , DEFAULT / GENERIC / UNKNOWN PROVIDER * Unavailable Unavailable ALIASES , DEFAULT / GENERIC / UNKNOWN PROVIDER * Unavailable Unavailable ALIASES , DEFAULT / GENERIC / UNKNOWN PROVIDER * Unavailable Unavailable ALIASES , DEFAULT / GENERIC / UNKNOWN PROVIDER * Unavailable Unavailable ALIASES , DEFAULT / GENERIC / UNKNOWN PROVIDER * Unavailable Unavailable ALIASES , DEFAULT / GENERIC / UNKNOWN PROVIDER * Unavailable Unavailable ALIASES , DEFAULT / GENERIC / UNKNOWN PROVIDER * Unavailable Unavailable ALIASES , DEFAULT / GENERIC / UNKNOWN PROVIDER * Unavailable Unavailable ALIASES , DEFAULT / GENERIC / UNKNOWN PROVIDER * Unavailable Unavailable ALIASES , DEFAULT / GENERIC / UNKNOWN PROVIDER * Unavailable Unavailable ALIASES , DEFAULT / GENERIC / UNKNOWN PROVIDER * Unavailable Unavailable ALIASES , DEFAULT / GENERIC / UNKNOWN PROVIDER * Unavailable Unavailable ALIASES , DEFAULT / GENERIC / UNKNOWN PROVIDER * Unavailable Unavailable ALIASES , DEFAULT / GENERIC / UNKNOWN PROVIDER * Unavailable Unavailable ALIASES , DEFAULT / GENERIC / UNKNOWN PROVIDER * Unavailable Unavailable ALIASES , DEFAULT / GENERIC / UNKNOWN PROVIDER * Unavailable Unavailable ALIASES , DEFAULT / GENERIC / UNKNOWN PROVIDER * Unavailable Unavailable ALIASES , DEFAULT / GENERIC / UNKNOWN PROVIDER * Unavailable Unavailable Avila Peggy TAVERA Unavailable Unavailable Avila Peggy TAVERA Unavailable Unavailable Avila Peggy TAVERA Unavailable Unavailable Avila Peggy TAVERA Unavailable Unavailable Avila Peggy TAVERA Unavailable Unavailable Avila Peggy TAVERA Unavailable Unavailable Avila Peggy TAVERA Unavailable Unavailable Avila Peggy TAVERA Unavailable Unavailable Avila Peggy TAVERA Unavailable Unavailable Avila Peggy TAVERA Unavailable Unavailable Avila Peggy TAVERA Unavailable Unavailable Avila Peggy TAVERA Unavailable Unavailable Avila Peggy TAVERA Unavailable Unavailable Avila Peggy TAVERA Unavailable Unavailable Avila Peggy TAVERA Unavailable Unavailable Avila Peggy ATVERA Unavailable Unavailable Avila Peggy TAVERA Unavailable Unavailable Avila Peggy TAVERA Unavailable Unavailable Avila Peggy TAVERA Unavailable Unavailable Avila Peggy TAVERA Unavailable Unavailable Avila Peggy TAVERA Unavailable Unavailable Avila Peggy TAVERA Unavailable Unavailable Avila Peggy TAVERA Unavailable Unavailable Avila Peggy TAVERA Unavailable Unavailable Avila Peggy TAVERA Unavailable Unavailable Avila Peggy TAVERA Unavailable Unavailable Avila Peggy TAVERA Unavailable Unavailable Avila Peggy TAVERA Unavailable Unavailable Avila Peggy TAVERA Unavailable Unavailable Avila Peggy TAVERA Unavailable Unavailable Avila Peggy TAVERA Unavailable Unavailable Avila Peggy TAVERA Unavailable Unavailable Avila Peggy TAVERA Unavailable Unavailable Avila Peggy TAVERA Unavailable Unavailable Avila Peggy TAVERA Unavailable Unavailable Avila Peggy TAVERA Unavailable Unavailable Avila MD Peggy Tiffanie Unavailable Unavailable Fish, Regine Diaz MD Unavailable Unavailable Fish, Regine Diaz MD Unavailable Unavailable Fish, Regine Diaz MD Unavailable Unavailable Fish, Regine Diaz MD Unavailable Unavailable Fish, Regine Diaz MD Unavailable Unavailable Fish, Regine Diaz MD Unavailable Unavailable Fish, Regine Diaz MD Unavailable Unavailable Fish, Regine Diaz MD Unavailable Unavailable Fish, Regine Diaz MD Unavailable Unavailable Fish, Regine Diaz MD Unavailable Unavailable Fish, Regine Diaz MD Unavailable Unavailable Fish, Regine Diaz MD Unavailable Unavailable Fish, Regine Diaz MD Unavailable Unavailable Fish, Regine Diaz MD Unavailable Unavailable Fish, Regine Diaz MD Unavailable Unavailable Fish, Regine Diaz MD Unavailable Unavailable Fish, Regine Diaz MD Unavailable Unavailable Fish, Regine Diaz MD Unavailable Unavailable Fish, Regine Diaz MD Unavailable Unavailable Fish, Regine Diaz MD Unavailable Unavailable Fish, Regine Diaz MD Unavailable Unavailable Fish, Regine Diaz MD Unavailable Unavailable Fish, Regine Diaz MD Unavailable Unavailable Fish, Regine Diaz MD Unavailable Unavailable Fish, Regine Diaz MD Unavailable Unavailable Fish, Regine Diaz MD Unavailable Unavailable Fish, Regine Diaz MD Unavailable Unavailable Fish, Regine Diaz MD Unavailable Unavailable Fish, Regine Diaz MD Unavailable Unavailable Fish, Regine Diaz MD Unavailable Unavailable Fish, Regine Diaz MD Unavailable Unavailable Fish, Regine Diaz MD Unavailable Unavailable Fish, Regine Diaz MD Unavailable Unavailable Fish, Regine Diaz MD Unavailable Unavailable Fish, Regine Diaz MD Unavailable Unavailable Fish, Regine Diaz MD Unavailable Unavailable Fish, Regine Diaz MD Unavailable Unavailable Fish, Regine Diaz MD Unavailable Unavailable Fish, Regine Diaz MD Unavailable Unavailable Fish, Regine Diaz MD Unavailable Unavailable Fish, Regine Diaz MD Unavailable Unavailable Fish, Regine Diaz MD Unavailable Unavailable Fish, Regine Diaz MD Unavailable Unavailable Fish, Regine Diaz MD Unavailable Unavailable Fish, Regine Diaz MD Unavailable Unavailable Fish, Regine Diaz MD Unavailable Unavailable Fish, Regine Diaz MD Unavailable Unavailable Fish, Regine Diaz MD Unavailable Unavailable Fish, Regine Diaz MD Unavailable Unavailable Fish, Regine Diaz MD Unavailable Unavailable Fish, Regine Diaz MD Unavailable Unavailable Fish, Reigne Diaz MD Unavailable Unavailable Fish, Regine Diaz MD Unavailable Unavailable Fish, Regine Diaz MD Unavailable Unavailable Fish, Regine Diaz MD Unavailable Unavailable Fish, Regine Diaz MD Unavailable Unavailable Fish, Regine Diaz MD Unavailable Unavailable Fish, Regine Diaz MD Unavailable Unavailable Fish, Regine Diaz MD Unavailable Unavailable Fish, Regine Diaz MD Unavailable Unavailable Fish, Regine Diaz MD Unavailable Unavailable Fish, Regine Diaz MD Unavailable Unavailable Regine Barboza MD Unavailable Unavailable Regine Barboza MD Unavailable Unavailable Greenky, S Lucio MD Unavailable Unavailable Greenky, S Lucio MD Unavailable Unavailable Greenky, S Lucio MD Unavailable Unavailable Greenky, S Lucio MD Unavailable Unavailable Greenky, S Lucio MD Unavailable Unavailable Greenky, S Lucio MD Unavailable Unavailable Greenky, S Lucio MD Unavailable Unavailable Greenky, S Lucio MD Unavailable Unavailable Greenky, S Lucio MD Unavailable Unavailable Greenky, S Lucio MD Unavailable Unavailable Greenky, S Lucio MD Unavailable Unavailable Greenky, S Lucio MD Unavailable Unavailable Greenky, S Lucio MD Unavailable Unavailable Greenky, S Lucio MD Unavailable Unavailable Greenky, S Lucio MD Unavailable Unavailable Greenky, S Lucio MD Unavailable Unavailable Greenky, S Lucio MD Unavailable Unavailable Greenky, S Lucio MD Unavailable Unavailable Greenky, S Lucio MD Unavailable Unavailable Greenky, S Lucio MD Unavailable Unavailable Greenky, S Lucio MD Unavailable Unavailable Greenky, S Lucio MD Unavailable Unavailable Greenky, S Lucio MD Unavailable Unavailable Greenky, S Lucio MD Unavailable Unavailable Greenky, S Lucio MD Unavailable Unavailable Greenky, S Lucio MD Unavailable Unavailable Greenky, S Lucio MD Unavailable Unavailable Greenky, S Lucio MD Unavailable Unavailable Greenky, S Lucio MD Unavailable Unavailable Greenky, S Lucio MD Unavailable Unavailable Greenky, S Lucio MD Unavailable Unavailable Greenky, S Lucio MD Unavailable Unavailable Greenky, S Lucio MD Unavailable Unavailable Greenky, S Lucio MD Unavailable Unavailable Greenky, S Lucio MD Unavailable Unavailable Greenky, S Lucio MD Unavailable Unavailable Greenky, S Lucio MD Unavailable Unavailable Greenky, S Lucio MD Unavailable Unavailable Greenky, S Lucio MD Unavailable Unavailable Greenky, S Lucio MD Unavailable Unavailable Greenky, S Lucio MD Unavailable Unavailable Greenky, S Lucio MD Unavailable Unavailable Greenky, S Lucio MD Unavailable Unavailable Greenky, S Lucio MD Unavailable Unavailable Greenky, S Lucio MD Unavailable Unavailable Greenky, S Lucio MD Unavailable Unavailable Greenky, S Lucio MD Unavailable Unavailable Greenky, S Lucio MD Unavailable Unavailable Greenky, S Lucio MD Unavailable Unavailable Greenky, S Lucio MD Unavailable Unavailable Greenky, S Lucio MD Unavailable Unavailable Greenky, S Lucio MD Unavailable Unavailable Greenky, S Lucio MD Unavailable Unavailable Greenky, S Lucio MD Unavailable Unavailable Greenky, S Lucio MD Unavailable Unavailable Greenky, S Lucio MD Unavailable Unavailable Greenky, S Lucio MD Unavailable Unavailable Greenky, S Lucio MD Unavailable Unavailable Greenky, S Lucio MD Unavailable Unavailable Greenky, S Lucio MD Unavailable Unavailable Greenky, S Lucio MD Unavailable Unavailable Greenky, S Lucio MD Unavailable Unavailable Greenky, S Lucio MD Unavailable Unavailable Greenky, S Lucio MD Unavailable Unavailable Greenky, S Lucio MD Unavailable Unavailable Greenky, S Lucio MD Unavailable Unavailable Greenky, S Lucio MD Unavailable Unavailable Greenky, S Lucio MD Unavailable Unavailable Greenky, S Lucio MD Unavailable Unavailable Greenky, S Lucio MD Unavailable Unavailable Greenky, S Lucio MD Unavailable Unavailable Greenky, S Lucio MD Unavailable Unavailable Greenky, S Lucio MD Unavailable Unavailable Greenky, S Lucio MD Unavailable Unavailable Greenky, S Lucio MD Unavailable Unavailable Greenky, S Lucio MD Unavailable Unavailable Greenky, S Lucio MD Unavailable Unavailable Greenky, S Lucio MD Unavailable Unavailable Greenky, S Lucio MD Unavailable Unavailable Greenky, S Lucio MD Unavailable Unavailable Greenky, S Lucio MD Unavailable Unavailable Greenky, S Lucio MD Unavailable Unavailable Greenky, S Lucio MD Unavailable Unavailable Greenky, S Lucio MD Unavailable Unavailable Greenky, S Lucio MD Unavailable Unavailable Greenky, S Lucio MD Unavailable Unavailable Greenky, S Lucio MD Unavailable Unavailable SYSTEM IN, NOT IN PROVIDER Unavailable Unavailable INES, 0000{ Unavailable Unavailable Re-disclosure Warning The records that you are about to access may contain information from federally-assisted alcohol or drug abuse programs. If such information is present, then the following federally mandated warning applies: This information has been disclosed to you from records protected by federal confidentiality rules (42 CFR part 2). The federal rules prohibit you from making any further disclosure of this information unless further disclosure is expressly permitted by the written consent of the person to whom it pertains or as otherwise permitted by 42 CFR part 2. A general authorization for the release of medical or other information is NOT sufficient for this purpose. The Federal rules restrict any use of the information to criminally investigate or prosecute any alcohol or drug abuse patient.The records that you are about to access may contain highly sensitive health information, the redisclosure of which is protected by Article 27-F of the [facility] [place] Public Health law. If you continue you may have access to information: Regarding HIV / AIDS; Provided by facilities licensed or operated by the [facility] [place] Office of Mental Health; or Provided by the [facility] [place] Office for People With Developmental Disabilities. If such information is present, then the following [facility] mandated warning applies: This information has been disclosed to you from confidential records which are protected by state law. State law prohibits you from making any further disclosure of this information without the specific written consent of the person to whom it pertains, or as otherwise permitted by law. Any unauthorized further disclosure in violation of state law may result in a fine or fdc sentence or both. A general authorization for the release of medical or other information is NOT sufficient authorization for further disc losure. Allergies and Adverse Reactions Type Description Substance Reaction Status Data Source(s ) Drug allergy Gatifloxacin gatifloxacin Anaphylaxis Active eCW1 ( [facility]) Azithromycin Azithromycin Azithromycin dyspnea, face an d lips swelling and tingling - seen in the ER 07/2016 Active eCW1 ([facility]) tequin tequin tequin Anaphylaxis Active eCW1 ([facility]) tequin tequin tequin Anaphylaxis Active eCW1 ([facility]) Family History Family Member Name Family Member Gender Family Member Status Date o f Status Description Data Source(s) Unknown Unknown Problem MEDENT ([facility]) Unknown Unknown Problem MEDENT ([facility]) Unknown Female Problem MEDENT ([facility]) Encounters Encounter Providers Location Date Indications Data Source(s ) Outpatient Attender: STACY CORDERO 03/07/2021 12:00:00 AM [facility] Outpatient Referrer: STACY CORDERO 03/07/2021 12:00:00 AM [facility] Outpatient Referrer: STACY CORDERO 03/07/2021 12:00:00 AM [facility] Outpatient Attender: STACY CORDEROReferrer: STACY CORDERO [id number] 08/31/2020 12:00:00 AM EST - 08/31/2020 11:51:33 AM EST Encounter for screening mammogram for malignant neoplasm of breast [facility] Encounter for screening mammogram for ma lignant neoplasm of breast Outpatient Referrer: STACY CORDERO 08/31/2020 12:00 :00 AM EST Mammographic calcification found on diagnostic imaging of breast [facility] Mammographic calcification found on diag nostic imaging of breast Outpatient Referrer: STACY CORDERO 08/31/2020 12:00 :00 AM EST Unspecified lump in the right breast, unspecified quadrant [facility] Unspecified lump in the right breast, un specified quadrant Unknown [address] [facility] [address] 08/23/2020 12:00:00 AM EST [facility] Outpatient Attender: STACY CORDEROReferrer: STACY CORDERO 08/08/2020 12:00:00 AM [facility] Outpatient Referrer: STACY CORDERO 08/08/2020 12:00:00 AM [facility] Outpatient Referrer: STACY CORDERO 08/08/2020 12:00:00 AM [facility] Outpatient Attender: Lucio Munoz MDReferrer: Aiden Nieves MD 08/01/2020 04:00:01 PM EST [facility] Recurring Patient Attender: Lucio Milnererrer: Aiden Gilmore dd, MD 08/01/2020 12:19:42 PM EST [facility] Unknown [address] [facility] [address] 07/30/2020 12:00:00 AM EST eCW1 ([facility]) Unknown [address] [facility] [address] 07/23/2020 12:00:00 AM EST eCW1 ([facility]) Unknown [address] [facility] [address] 07/16/2020 12:00:00 AM EST eCW1 ([facility]) Unknown [address] [facility] [address] 06/06/2020 12:00:00 AM EST eCW1 ([facility]) Unknown [address] [facility] [address] 06/01/2020 12:00:00 AM EST eCW1 ([facility]) Outpatient Referrer: STACY CORDERO 05/28/2020 12:00:00 AM [facility] Outpatient Attender: STACY CORDEROReferrer: STACY CORDERO 05/28/2020 12:00:00 AM [facility] Unknown [address] [facility] [address] 05/24/2020 12:00:00 AM EDT eCW1 ([facility]) Unknown [address] [facility] [address] 05/23/2020 12:00:00 AM EDT eCW1 ([facility]) Unknown [address] [facility] [address] 05/17/2020 12:00:00 AM EDT eCW1 ([facility]) Unknown [address] [facility] [address] 05/14/2020 12:00:00 AM EDT eCW1 ([facility]) Outpatient Attender: STACY CORDEROReferrer: STACY CORDERO 05/11/2020 12:00:00 AM [facility] Outpatient Referrer: STACY CORDERO 05/11/2020 12:00:00 AM [facility] Unknown [address] [facility] [address] 05/01/2020 12:00:00 AM EDT eCW1 [facility] Unknown [address] [facility] [address] 04/26/2020 12:00:00 AM EDT eCW1 ([facility]) Outpatient [id number] 04/17/2020 10:46:52 AM EDT [facility] Outpatient Referrer: STACY CORDERO 04/09/2020 12:00:00 AM [facility] Outpatient Attender: STACY CORDERO 04/09/2020 12:00:00 AM [facility] Outpatient Attender: RIDGE BAKER MD [id number] 08/26/2 020 12:00:00 AM EDT - 03/21/2020 02:47:09 PM EDT Centrilobular emphysema [facility] Centrilobular emphysema Outpatient Attender: RIDGE BAKER MDReferrer: RIDGE BAKER MD 03/21/2020 12:00:00 AM EDT Other [facility] Other nonspecific abnormal finding of marybel ng field Attender: Tiffanie Avila MD 03/15/2020 10:06:58 AM ED T [facility] Outpatient Attender: 0000{ CANTON 03/14/2020 10:57:00 AM E DT [facility] Outpatient Attender: Tiffanie Avila MD 03/14/2020 10:57:00 AM EDT RIGHT BREAST CALCS [facility] RIGHT BREAST CALCS Outpatient Attender: Tiffanie Avila MD [id number] 03/02/2020 12:00:00 AM EDT - 03/02/2020 11:26:16 AM EDT [facility] Outpatient Referrer: STACY CORDERO 02/20/2020 12:00 :00 AM EDT Other abnormal and inconclusive findings on diagnostic imaging of [facility] Other abnormal and inconclusive findings on diagnostic imaging of breast Outpatient Referrer: STACY CORDERO 02/03/2020 11:02 :00 AM EDT Other abnormal and inconclusive findings on diagnostic imaging of [facility] Other abnormal and inconclusive findings on diagnostic imaging of breast Outpatient Attender: STACY CORDEROReferrer: STACY CORDERO [id number] 02/03/2020 12:00:00 AM EDT - 02/03/2020 12:22:32 PM EDT Unspecified lump in the right breast, unspecified quadrant [facility] Unspecified lump in the right breast, un specified quadrant Outpatient Referrer: STACY CORDERO 02/03/2020 12:00 :00 AM EDT Encounter for screening mammogram for malignant neoplasm of breast [facility] Encounter for screening mammogram for ma lignant neoplasm of breast Unknown [address] [facility] [address] 01/17/2020 12:00:00 AM EDT eCW1 ([facility]) Unknown [address] [facility] [address] 01/13/2020 12:00:00 AM EDT eCW1 ([facility]) Outpatient 01/04/2020 12:00:00 AM [facility] Outpatient Referrer: STACY CORDERO 12/28/2019 12:00:00 AM [facility] Outpatient Attender: STACY CORDEROReferrer: STACY CORDERO 12/28/2019 12:00:[address] [address] 12/14/2019 12:00:00 AM EDT eCW1 ([facility]) [address] [address] 12/13/2019 12:00:00 AM EDT eCW1 ([facility] [address] [address] 11/24/2019 12:00:00 AM EDT eCW1 ([facility]) [address] [address] 11/22/2019 12:00:00 AM EDT eCW1 [facility] Outpatient Referrer: ASHISH RAE MD 11/09/2019 02:56:0 0 PM EDT [facility] [address] [address] 11/03/2019 12:00:00 AM EDT eCW1 ([facility] [address] [address] 10/27/2019 12:00:00 AM EDT eCW1 ([facility]) Outpatient Referrer: STACY CORDERO 10/26/2019 12:00:00 AM [facility] Outpatient Attender: STACY CORDEROReferrer: STACY CORDERO 10/26/2019 12:00:00 AM [facility] Outpatient Referrer: ASHISH RAE MD 10/25/2019 03:22:0 0 PM EDT [facility] Outpatient Referrer: ASHISH RAE MD 10/25/2019 03:15:0 0 PM EDT [facility] [place] [address] [facility] [address] 10/19/2019 12:00:00 AM EDT eCW1 ([facility]) Outpatient Attender: Emily Barboza MD Physical Therapy 10/16 03:30:00 PM EDT MEDENT ([facility]) [facility] [place] [address] [facility] [address] 10/14/2019 12:00:00 AM EDT eCW1 ([facility]) [facility] [address] [place] [address], [place] [address] 09/30/2019 12:00:00 AM EST eCW1 ([facility]) [facility] [place] [address] [place] [address], [place] [address] 09/30/2019 12:00:00 AM EST eCW1 ([facility]) [facility] [address] [place] [address], [place] [address] 09/16/2019 12:00:00 AM EST eCW1 ([facility]) [facility] [address] [place] [address], [place] [address] 09/15/2019 12:00:00 AM EST eCW1 ([facility]) [facility] [address] [place] [address], [place] [address] 09/14/2019 12:00:00 AM EST eCW1 ([facility]) [facility] [address] [facility] [address] 09/14/2019 12:00:00 AM EST eCW1 ([facility]) Outpatient Attender: Emily Barboza MD Physical Therapy 09/12 10:00:00 AM EST MEDENT ([facility]) [facility] [address] [place] [address], [place] [address] 09/12/2019 12:00:00 AM EST eCW1 ([facility]) [address] [address] 09/12/2019 12:00:00 AM EST eCW1 ([facility]) [facility] [place] [address] [facility] [address] 09/09/2019 12:00:00 AM EST eCW1 ([facility]) Outpatient Referrer: ASHISH RAE MD 09/07/2019 07:48:0 0 PM EST [facility] Outpatient Referrer: ASHISH RAE MD 09/07/2019 03:13:0 0 PM EST [facility] [place] [address] [facility] [address] 09/07/2019 12:00:00 AM EST eCW1 ([facility]) [facility] [place] [address] [facility] [address] 09/01/2019 12:00:00 AM EST eCW1 ([facility]) [facility] [place] [address] [facility] [address] 08/31/2019 12:00:00 AM EST eCW1 ([facility]) [facility] [place] [address] [facility] [address] 08/29/2019 12:00:00 AM EST eCW1 ([facility]) Outpatient Referrer: ASHISH RAE MD 08/26/2019 09:23:0 0 AM EST [facility] [place] [address] [facility] [address] 08/26/2019 12:00:00 AM EST eCW1 ([facility]) [facility] [place] [address] [facility] [address] 08/24/2019 12:00:00 AM EST eCW1 ([facility]) Outpatient Referrer: ASHISH RAE MD 08/23/2019 12:34:0 0 PM EST [facility] [place] [address] [facility] [address] 08/22/2019 12:00:00 AM EST eCW1 ([facility]) [facility] [place] [address] [facility] [address] 08/16/2019 12:00:00 AM EST eCW1 ([facility]) [address] [address] 08/15/2019 12:00:00 AM EST eCW1 ([facility]) [address] [address] 08/10/2019 12:00:00 AM EST eCW1 ([facility]) Outpatient Attender: ASHISH RAE MD Physical Therapy 08:15:00 AM EST MEDENT ([facility]) [address] [address] 08/08/2019 12:00:00 AM EST eCW1 ([facility]) Emergency Attender: DEFAULT / GENE KATHLEEN / UNKNOWN PROVIDER ALIASES Referrer: PROVIDER SYSTEM IN A-ADULTERM 08/03/2019 12:00:00 AM EST - 08/03/2019 07:31:00 PM EST Striking against unspecified object with subsequent fall, initial encounter [facility] Striking against unspecified object with subsequent fall, initial encounter Patient discharged. [address] [address] 07/14/2019 12:00:00 AM EST eCW1 ([facility]) Immunizations Vaccine Date Status Description Data Source(s) Zoster 50mcg/0.5mL ([facility]) 08/15/2019 04:41:00 PM EST completed eCW1 ([facility]) Zoster 50mcg/0.5mL ([facility]) 08/15/2019 04:41:00 PM EST completed eCW1 ([facility]) Zoster 50mcg/0.5mL ([facility]) 08/15/2019 04:41:00 PM EST completed eCW1 ([facility]) Zoster 50mcg/0.5mL ([facility]) 08/15/2019 04:41:00 PM EST completed eCW1 ([facility]) Zoster 50mcg/0.5mL ([facility]) 08/15/2019 04:41:00 PM EST completed eCW1 ([facility]) Zoster 50mcg/0.5mL ([facility]) 08/15/2019 04:41:00 PM EST completed eCW1 ([facility]) Zoster 50mcg/0.5mL ([facility]) 08/15/2019 04:41:00 PM EST completed eCW1 ([facility]) Zoster 50mcg/0.5mL ([facility]) 08/15/2019 04:41:00 PM EST completed eCW1 ([facility]) Zoster 50mcg/0.5mL ([facility]) 08/15/2019 04:41:00 PM EST completed eCW1 ([facility]) Zoster 50mcg/0.5mL ([facility]) 08/15/2019 04:41:00 PM EST completed eCW1 ([facility]) Zoster 50mcg/0.5mL ([facility]) 08/15/2019 04:41:00 PM EST completed eCW1 ([facility]) Zoster 50mcg/0.5mL ([facility]) 08/15/2019 04:41:00 PM EST completed eCW1 ([facility]) Zoster 50mcg/0.5mL ([facility]) 08/15/2019 04:41:00 PM EST completed eCW1 ([facility]) Zoster 50mcg/0.5mL ([facility]) 08/15/2019 04:41:00 PM EST completed eCW1 ([facility]) Zoster 50mcg/0.5mL ([facility]) 08/15/2019 04:41:00 PM EST completed eCW1 ([facility]) Medications Medication Brand Name Start Date Product Form Dose Route Admi nistrative Instructions Pharmacy Instructions Status Indications Reaction Description Data Source(s) 5-325 mg 08/28/2020 12:00:00 AM EST tablet 84 TAKE ONE TABLET BY MOUTH EVERY 8 HOURS NEEDED FOR SEVERE PAIN (PS 8-10) MAXIMUM DAILY DOSE = 3 TABLETS TAKE ONE TABLET BY MOUTH EVERY 8 HOURS NEEDED FOR SEVERE PAIN (PS 8-10) MAXIMUM DAILY DOSE = 3 TABLETS SOLD: 08/28/2020 [facility] Acetaminophen 325 MG / Oxycodone Hydroch loride 5 MG Oral Tablet Oxycodone- Acetaminophen 5-325 MG Oxycodone-Acetaminophen 5-325 MG 08/23/2020 12:00:00 A M EST 1.0 {tablet_as_needed} active O xycodone-Acetaminophen 5-325 MG eCW1 ([facility]) 5-325 mg 07/26/2020 12:00:00 AM EST tablet 21 TAKE ONE TABLET BY MOUTH EVERY 8 HOURS NEEDED FOR SEVERE PAIN (PAIN SCALE 8-10) MAXIMUM DAILY DOSE = 3 TAKE ONE TABLET BY MOUTH EVERY 8 HOURS NEEDED FOR SEVERE PAIN (PAIN SCALE 8-10) MAXIMUM DAILY DOSE = 3 SOLD: 07/27/2020 [facility] 50 mg 07/26/2020 12:00:00 AM EST tablet 28 TAKE 1TABLET BY MOUTH EVERY 6HRS NEEDED FOR MODERATE PAIN (PAIN SCALE 5-7) MAXIMUM DAILY DOSE = 4 TAKE 1TABLET BY MOUTH EVERY 6HRS NEEDED FOR MODERATE PAIN (PAIN SCALE 5-7) MAXIMUM DAILY DOSE = 4 SOLD: 07/27/2020 [facility] 2 mg 07/21/2020 12:00:00 AM EST tablet 112 TAKE 2 TABLETS BY MOUTH TWICE A DAY NEEDED MAX DAILY DOSE = 4 TABLETS TAKE 2 TABLETS BY MOUTH TWICE A DAY NEEDED MAX DAILY DOSE = 4 TABLETS SOLD: 07/27/2020 [facility] 5-325 mg 07/19/2020 12:00:00 AM EST tablet 56 TAKE ONE TABLET BY MOUTH TWICE A DAY NEEDED MAXIMUM DAILY DOSE = 2 TABLETS TAKE ONE TABLET BY MOUTH TWICE A DAY NEEDED MAXIMUM DAILY DOSE = 2 TABLETS SOLD: 07/21/2020 [facility] Acetaminophen 325 MG / Hydrocodone Alayna trate 5 MG Oral Tablet [[place]] [place] 5- 325 MG [place] 5-325 MG 07/19/2020 12:00:00 AM EST 1.0 {tablet_as_needed} active [place] 5-325 MG eCW1 ([facility]) Acetaminophen 325 MG / Hydrocodone Alayna trate 5 MG Oral Tablet [[place]] [place] 5- 325 MG [place] 5-325 MG 07/19/2020 12:00:00 AM EST 1.0 {tablet_as_needed} active [place] 5-325 MG eCW1 ([facility]) 0.8 mg 07/06/2020 12:00:00 AM EST tablet 90 TAKE ONE TABLET BY MOUTH EVERY DAY TAKE ONE TABLET BY MOUTH EVERY DAY SOLD: 07/08/2020 [facility] 5-325 mg 06/19/2020 12:00:00 AM EST tablet 56 TAKE ONE TABLET BY MOUTH TWICE A DAY NEEDED MAXIMUM DAILY DOSE = 2 TABLETS TAKE ONE TABLET BY MOUTH TWICE A DAY NEEDED MAXIMUM DAILY DOSE = 2 TABLETS SOLD: 06/20/2020 [facility] Acetaminophen 325 MG / Hydrocodone Alayna trate 5 MG Oral Tablet [[place]] [place] 5- 325 MG [place] 5-325 MG 06/06/2020 12:00:00 AM EST 1.0 {tablet_as_needed} active [place] 5-325 MG eCW1 ([facility]) 50 mg 06/02/2020 12:00:00 AM EST tablet 60 TAKE ONE TABLET BY MOUTH TWICE A DAY WITH FOOD TAKE ONE TABLET BY MOUTH TWICE A DAY WITH FOOD SOLD: 07/08/2020 [facility] 50 mg 06/02/2020 12:00:00 AM EST tablet 60 TAKE ONE TABLET BY MOUTH TWICE A DAY WITH FOOD TAKE ONE TABLET BY MOUTH TWICE A DAY WITH FOOD SOLD: 09/05/2020 [facility] 50 mg 06/02/2020 12:00:00 AM EST tablet 60 TAKE ONE TABLET BY MOUTH TWICE A DAY WITH FOOD TAKE ONE TABLET BY MOUTH TWICE A DAY WITH FOOD SOLD: 06/07/2020 [facility] 2 mg 05/29/2020 12:00:00 AM EST tablet 112 TAKE 2 TABLETS BY MOUTH TWICE A DAY NEEDED MAX DAILY DOSE = 4 TABLETS TAKE 2 TABLETS BY MOUTH TWICE A DAY NEEDED MAX DAILY DOSE = 4 TABLETS SOLD: 05/31/2020 [facility] Acetaminophen 325 MG / Hydrocodone Alayna trate 5 MG Oral Tablet [[place]] [place] 5- 325 MG [place] 5-325 MG 05/25/2020 12:00:00 AM EDT 1.0 {tablet_as_needed} active [place] 5-325 MG eCW1 ([facility]) Acetaminophen 325 MG / Hydrocodone Alayna trate 5 MG Oral Tablet [[place]] [place] 5- 325 MG [place] 5-325 MG 05/25/2020 12:00:00 AM EDT 1.0 {tablet_as_needed} active [place] 5-325 MG eCW1 ([facility]) Acetaminophen 325 MG / Hydrocodone Alayna trate 5 MG Oral Tablet [[place]] [place] 5- 325 MG [place] 5-325 MG 05/25/2020 12:00:00 AM EDT 1.0 {tablet_as_needed} active [place] 5-325 MG eCW1 ([facility]) 5-325 mg 05/25/2020 12:00:00 AM EDT tablet 56 TAKE 1 TABLET BY MOUTH TWICE A DAY NEEDED FOR PAIN MAXIMUM DAILY DOSE = 2 TABLETS TAKE 1 TABLET BY MOUTH TWICE A DAY NEEDED FOR PAIN MAXIMUM DAILY DOSE = 2 TABLETS SOLD: 05/25/2020 [facility] Acetaminophen 325 MG / Hydrocodone Alayna trate 5 MG Oral Tablet Hydrocodone- Acetaminophen 5-325 MG Hydrocodone-Acetaminophen 5-325 MG 05/23/2020 12:00:00 AM EDT active Hydrocodone-Aceta minophen 5-325 MG eCW1 ([facility]) Rosuvastatin calcium 20 MG Oral Tablet ROSUVASTATIN CALCIUM 05/16/2020 12:00:00 AM EDT tablet 90 TAKE ONE TABLET BY MOUTH SURJIT LY AT BEDTIME TAKE ONE TABLET BY MOUTH DAILY AT BEDTIME SOLD: 08/17/2020 [facility] Rosuvastatin calcium 20 MG Oral Tablet ROSUVASTATIN CALCIUM 05/16/2020 12:00:00 AM EDT tablet 90 TAKE ONE TABLET BY MOUTH SURJIT LY AT BEDTIME TAKE ONE TABLET BY MOUTH DAILY AT BEDTIME SOLD: 05/16/2020 [facility] 10 gram/15 mL 05/07/2020 12:00:00 AM EDT solution 473 TAKE 15ML BY MOUTH ONCE DAILY NEEDED FOR CONSTIPATION TAKE 15ML BY MOUTH ONCE DAILY NEEDED FOR CONSTIPATION SOLD: 05/07/2020 [facility] 4 mg 05/04/2020 12:00:00 AM EDT tablet 45 TAKE ONE TABLET BY MOUTH EVERY 8 HOURS NEEDED FOR 15 DAYS TAKE ONE TABLET BY MOUTH EVERY 8 HOURS A S NEEDED FOR 15 DAYS SOLD: 05/04/2020 [facility] Trazodone Hydrochloride 100 MG Oral Tablet TRAZODONE HCL 04/30/2020 12:00:00 AM EDT tablet 30 TAKE ONE TABLET BY MOUTH AT BEDTIME TAKE ONE TABLET BY MOUTH AT BEDTIME SOLD: 04/30/2020 [facility] Trazodone Hydrochloride 100 MG Oral Tablet TRAZODONE HCL 04/30/2020 12:00:00 AM EDT tablet 30 TAKE ONE TABLET BY MOUTH AT BEDTIME TAKE ONE TABLET BY MOUTH AT BEDTIME SOLD: 07/27/2020 [facility] Trazodone Hydrochloride 100 MG Oral Tablet TRAZODONE HCL 04/30/2020 12:00:00 AM EDT tablet 30 TAKE ONE TABLET BY MOUTH AT BEDTIME TAKE ONE TABLET BY MOUTH AT BEDTIME SOLD: 08/28/2020 [facility] Trazodone Hydrochloride 100 MG Oral Tablet TRAZODONE HCL 04/30/2020 12:00:00 AM EDT tablet 30 TAKE ONE TABLET BY MOUTH AT BEDTIME TAKE ONE TABLET BY MOUTH AT BEDTIME SOLD: 06/25/2020 [facility] Trazodone Hydrochloride 100 MG Oral Tablet TRAZODONE HCL 04/30/2020 12:00:00 AM EDT tablet 30 TAKE ONE TABLET BY MOUTH AT BEDTIME TAKE ONE TABLET BY MOUTH AT BEDTIME SOLD: 05/31/2020 [facility] 40 mg 04/30/2020 12:00:00 AM EDT capsule,delayed release (DR/EC) 90 TAKE ONE CAPSULE BY MOUTH EVERY DAY TAKE ONE CAPSULE BY MOUTH EVERY DAY SOLD: 07/27/2020 [facility] 40 mg 04/30/2020 12:00:00 AM EDT capsule,delayed release (DR/EC) 90 TAKE ONE CAPSULE BY MOUTH EVERY DAY TAKE ONE CAPSULE BY MOUTH EVERY DAY SOLD: 04/30/2020 [facility] 5-325 mg 04/11/2020 12:00:00 AM EDT tablet 56 TAKE ONE TABLET BY MOUTH TWICE A DAY NEEDED FOR PAIN MAXIMUM DAILY DOSE = 2 TABLETS TAKE ONE TABLET BY MOUTH TWICE A DAY NEEDED FOR PAIN MAXIMUM DAILY DOSE = 2 TABLETS SOLD: 04/12/2020 [facility] 2 mg 04/03/2020 12:00:00 AM EDT tablet 100 TAKE 1 TABLET BY MOUTH EVERY 6 HOURS NEEDED FOR ANXIETY MAX DAILY DOSE = 4 TABLETS TAKE 1 TABLET BY MOUTH EVERY 6 HOURS NEEDED FOR ANXIETY MAX DAILY DOSE = 4 TABLETS SOLD: 04/07/2020 [facility] Trazodone Hydrochloride 100 MG Oral Tablet TRAZODONE HCL 03/30/2020 12:00:00 AM EDT tablet 30 TAKE 1 TABLET BY MOUTH EVERY NIGHT TAKE 1 TABLET BY MOUTH EVERY NIGHT SOLD: 03/30/2020 [facility] 5-325 mg 03/07/2020 12:00:00 AM EDT tablet 56 TAKE ONE TABLET BY MOUTH TWICE A DAY NEEDED FOR PAIN MAXIMUM DAILY DOSE = 2 TABLETS TAKE ONE TABLET BY MOUTH TWICE A DAY NEEDED FOR PAIN MAXIMUM DAILY DOSE = 2 TABLETS SOLD: 03/07/2020 [facility] 75 mcg 02/27/2020 12:00:00 AM EDT tablet 30 TAKE ONE TABLET BY MOUTH EVERY MORNING TAKE ONE TABLET BY MOUTH EVERY MORNING SOLD: 02/29/2020 [facility] 75 mcg 02/27/2020 12:00:00 AM EDT tablet 30 TAKE ONE TABLET BY MOUTH EVERY MORNING TAKE ONE TABLET BY MOUTH EVERY MORNING SOLD: 04/09/2020 [facility] 75 mcg 02/27/2020 12:00:00 AM EDT tablet 30 TAKE ONE TABLET BY MOUTH EVERY MORNING TAKE ONE TABLET BY MOUTH EVERY MORNING SOLD: 05/04/2020 [facility] 75 mcg 02/27/2020 12:00:00 AM EDT tablet 30 TAKE ONE TABLET BY MOUTH EVERY MORNING TAKE ONE TABLET BY MOUTH EVERY MORNING SOLD: 08/17/2020 [facility] 75 mcg 02/27/2020 12:00:00 AM EDT tablet 30 TAKE ONE TABLET BY MOUTH EVERY MORNING TAKE ONE TABLET BY MOUTH EVERY MORNING SOLD: 06/25/2020 [facility] 2 mg 02/02/2020 12:00:00 AM EDT tablet 112 TAKE TWO TABLETS BY MOUTH TWICE A DAY NEEDED MAXIMUM DAILY DOSE = FOUR TABLETS TAKE TWO TABLETS BY MOUTH TWICE A DAY NEEDED MAXIMUM DAILY DOSE = FOUR TABLETS SOLD: 02/07/2020 [facility] Acetaminophen 325 MG / Hydrocodone Alayna trate 5 MG Oral Tablet Hydrocodone- Acetaminophen 5-325 MG Hydrocodone-Acetaminophen 5-325 MG 01/17/2020 12:00:00 AM EDT active Hydrocodone-Aceta minophen 5-325 MG eCW1 ([facility]) Acetaminophen 325 MG / Hydrocodone Alayna trate 5 MG Oral Tablet Hydrocodone- Acetaminophen 5-325 MG Hydrocodone-Acetaminophen 5-325 MG 01/17/2020 12:00:00 AM EDT active Hydrocodone-Aceta minophen 5-325 MG eCW1 ([facility]) Acetaminophen 325 MG / Hydrocodone Alayna trate 5 MG Oral Tablet Hydrocodone- Acetaminophen 5-325 MG Hydrocodone-Acetaminophen 5-325 MG 01/17/2020 12:00:00 AM EDT active Hydrocodone-Aceta minophen 5-325 MG eCW1 ([facility]) Acetaminophen 325 MG / Hydrocodone Alayna trate 5 MG Oral Tablet Hydrocodone- Acetaminophen 5-325 MG Hydrocodone-Acetaminophen 5-325 MG 01/17/2020 12:00:00 AM EDT active Hydrocodone-Aceta minophen 5-325 MG eCW1 ([facility]) Acetaminophen 325 MG / Hydrocodone Alayna trate 5 MG Oral Tablet Hydrocodone- Acetaminophen 5-325 MG Hydrocodone-Acetaminophen 5-325 MG 01/17/2020 12:00:00 AM EDT active Hydrocodone-Aceta minophen 5-325 MG eCW1 ([facility]) 5-325 mg 01/17/2020 12:00:00 AM EDT tablet 56 TAKE ONE TABLET BY MOUTH TWICE A DAY NEEDED * MAXIMUM DAILY DOSE = 2 TAKE ONE TABLET BY MOUTH TWICE A DAY NEEDED * MAXIMUM DAILY DOSE = 2 SOLD: 01/17/2020 [facility] 2 mg 12/15/2019 12:00:00 AM EDT tablet 112 TAKE TWO TABLETS BY MOUTH TWICE A DAY NEEDED. MAXIMUM DAILY DOSE = 4 TABLETS TAKE TWO TABLETS BY MOUTH TWICE A DAY NEEDED. MAXIMUM DAILY DOSE = 4 TABLETS SOLD: 12/16/2019 [facility] Cyclobenzaprine hydrochloride 5 MG Oral Tablet CYCLOBENZAPRI NE HCL 12/15/2019 12:00:00 AM EDT tablet 90 TAKE ONE TABLET BY MOUTH THREE TIMES A DAY NEEDED TAKE ONE TABLET BY MOUTH THREE TIMES A DAY NEEDED SOLD: 03/15/2020 [facility] Cyclobenzaprine hydrochloride 5 MG Oral Tablet CYCLOBENZAPRI NE HCL 12/15/2019 12:00:00 AM EDT tablet 90 TAKE ONE TABLET BY MOUTH THREE TIMES A DAY NEEDED TAKE ONE TABLET BY MOUTH THREE TIMES A DAY NEEDED SOLD: 06/25/2020 [facility] Cyclobenzaprine hydrochloride 5 MG Oral Tablet CYCLOBENZAPRI NE HCL 12/15/2019 12:00:00 AM EDT tablet 90 TAKE ONE TABLET BY MOUTH THREE TIMES A DAY NEEDED TAKE ONE TABLET BY MOUTH THREE TIMES A DAY NEEDED SOLD: 08/17/2020 [facility] Cyclobenzaprine hydrochloride 5 MG Oral Tablet CYCLOBENZAPRI NE HCL 12/15/2019 12:00:00 AM EDT tablet 90 TAKE ONE TABLET BY MOUTH THREE TIMES A DAY NEEDED TAKE ONE TABLET BY MOUTH THREE TIMES A DAY NEEDED SOLD: 05/03/2020 [facility] 5 mg 12/15/2019 12:00:00 AM EDT tablet 90 TAKE ONE TABLET BY MOUTH THREE TIMES A DAY NEEDED TAKE ONE TABLET BY MOUTH THREE TIMES A DAY NEEDED S OLD: 12/16/2019 [facility] 5 mg 12/15/2019 12:00:00 AM EDT tablet 90 TAKE ONE TABLET BY MOUTH THREE TIMES A DAY NEEDED TAKE ONE TABLET BY MOUTH THREE TIMES A DAY NEEDED S OLD: 01/28/2020 [facility] 5-325 mg 11/25/2019 12:00:00 AM EDT tablet 56 TAKE ONE TABLET BY MOUTH TWICE A DAY NEEDED MAXIMUM DAILY DOSE = 2 TABLETS TAKE ONE TABLET BY MOUTH TWICE A DAY NEEDED MAXIMUM DAILY DOSE = 2 TABLETS SOLD: 11/26/2019 [facility] Acetaminophen 325 MG / Hydrocodone Alayna trate 5 MG Oral Tablet Hydrocodone- Acetaminophen 5-325 MG Hydrocodone-Acetaminophen 5-325 MG 11/25/2019 12:00:00 AM EDT active 1 tab eCW1 ([facility]) 20 mg 11/24/2019 12:00:00 AM EDT tablet 90 TAKE ONE TABLET BY MOUTH DAILY AT BEDTIME TAKE ONE TABLET BY MOUTH DAILY AT BEDTIME SOLD: 11/24/2019 [facility] 20 mg 11/24/2019 12:00:00 AM EDT tablet 90 TAKE ONE TABLET BY MOUTH DAILY AT BEDTIME TAKE ONE TABLET BY MOUTH DAILY AT BEDTIME SOLD: 02/17/2020 [facility] 2 mg 10/22/2019 12:00:00 AM EDT tablet 112 TAKE TWO TABLETS BY MOUTH TWICE A DAY NEEDED MAXIMUM DAILY DOSE = 4 TABLETS TAKE TWO TABLETS BY MOUTH TWICE A DAY NEEDED MAXIMUM DAILY DOSE = 4 TABLETS SOLD: 10/24/2019 [facility] 40 mg 10/22/2019 12:00:00 AM EDT capsule,delayed release (DR/EC) 90 TAKE ONE CAPSULE BY MOUTH EVERY DAY TAKE ONE CAPSULE BY MOUTH EVERY DAY SOLD: 01/25/2020 [facility] 40 mg 10/22/2019 12:00:00 AM EDT capsule,delayed release (DR/EC) 90 TAKE ONE CAPSULE BY MOUTH EVERY DAY TAKE ONE CAPSULE BY MOUTH EVERY DAY SOLD: 10/24/2019 [facility] 5-325 mg 10/22/2019 12:00:00 AM EDT tablet 56 TAKE ONE TABLET BY MOUTH TWICE A DAY NEEDED MAXIMUM DAILY DOSE = 2 TABLETS TAKE ONE TABLET BY MOUTH TWICE A DAY NEEDED MAXIMUM DAILY DOSE = 2 TABLETS SOLD: 10/24/2019 [facility] Acetaminophen 325 MG / Hydrocodone Alayna trate 5 MG Oral Tablet Hydrocodone- Acetaminophen 5-325 MG Hydrocodone-Acetaminophen 5-325 MG 10/21/2019 12:00:00 AM EDT active 1 tab eCW1 ([facility]) Trazodone Hydrochloride 100 MG Oral Tablet TRAZODONE HCL 09/30/2019 12:00:00 AM EST tablet 30 TAKE ONE TABLET BY MOUTH SURJIT LY AT BEDTIME TAKE ONE TABLET BY MOUTH DAILY AT BEDTIME SOLD: 11/26/2019 [facility] Trazodone Hydrochloride 100 MG Oral Tablet TRAZODONE HCL 09/30/2019 12:00:00 AM EST tablet 30 TAKE ONE TABLET BY MOUTH SURJIT LY AT BEDTIME TAKE ONE TABLET BY MOUTH DAILY AT BEDTIME SOLD: 12/27/2019 [facility] Trazodone Hydrochloride 100 MG Oral Tablet TRAZODONE HCL 09/30/2019 12:00:00 AM EST tablet 30 TAKE ONE TABLET BY MOUTH SURJIT LY AT BEDTIME TAKE ONE TABLET BY MOUTH DAILY AT BEDTIME SOLD: 10/02/2019 [facility] Trazodone Hydrochloride 100 MG Oral Tablet TRAZODONE HCL 09/30/2019 12:00:00 AM EST tablet 30 TAKE ONE TABLET BY MOUTH SURJIT LY AT BEDTIME TAKE ONE TABLET BY MOUTH DAILY AT BEDTIME SOLD: 01/25/2020 [facility] Trazodone Hydrochloride 100 MG Oral Tablet TRAZODONE HCL 09/30/2019 12:00:00 AM EST tablet 30 TAKE ONE TABLET BY MOUTH SURJIT LY AT BEDTIME TAKE ONE TABLET BY MOUTH DAILY AT BEDTIME SOLD: 10/25/2019 [facility] Trazodone Hydrochloride 100 MG Oral Tablet TRAZODONE HCL 09/30/2019 12:00:00 AM EST tablet 30 TAKE ONE TABLET BY MOUTH SURJIT LY AT BEDTIME TAKE ONE TABLET BY MOUTH DAILY AT BEDTIME SOLD: 02/25/2020 [facility] 50 mg 09/20/2019 12:00:00 AM EST tablet 60 TAKE ONE TABLET BY MOUTH TWICE A DAY WITH FOOD TAKE ONE TABLET BY MOUTH TWICE A DAY WITH FOOD SOLD: 01/13/2020 [facility] 50 mg 09/20/2019 12:00:00 AM EST tablet 60 TAKE ONE TABLET BY MOUTH TWICE A DAY WITH FOOD TAKE ONE TABLET BY MOUTH TWICE A DAY WITH FOOD SOLD: 10/25/2019 [facility] 50 mg 09/20/2019 12:00:00 AM EST tablet 60 TAKE ONE TABLET BY MOUTH TWICE A DAY WITH FOOD TAKE ONE TABLET BY MOUTH TWICE A DAY WITH FOOD SOLD: 03/19/2020 [facility] 50 mg 09/20/2019 12:00:00 AM EST tablet 60 TAKE ONE TABLET BY MOUTH TWICE A DAY WITH FOOD TAKE ONE TABLET BY MOUTH TWICE A DAY WITH FOOD SOLD: 09/23/2019 [facility] 50 mg 09/20/2019 12:00:00 AM EST tablet 60 TAKE ONE TABLET BY MOUTH TWICE A DAY WITH FOOD TAKE ONE TABLET BY MOUTH TWICE A DAY WITH FOOD SOLD: 02/17/2020 [facility] 50 mg 09/20/2019 12:00:00 AM EST tablet 60 TAKE ONE TABLET BY MOUTH TWICE A DAY WITH FOOD TAKE ONE TABLET BY MOUTH TWICE A DAY WITH FOOD SOLD: 11/26/2019 [facility] 33 gauge 09/16/2019 12:00:00 AM EST misc 100 USE DIRECTED THREE TIMES A DAY USE DIRECTED THREE TIMES A DAY SOLD: 09/16/2019 [facility] 100 unit/mL (3 mL) 09/14/2019 12:00:00 AM EST insulin pen 9 INJECT 10 UNITS UNDER THE SKIN AT BEDTIME NEEDED INJECT 10 UNITS UNDER THE SKIN AT BEDTIM E NEEDED SOLD: 09/14/2019 [facility] Acetaminophen 325 MG / Hydrocodone Alayna trate 5 MG Oral Tablet Hydrocodone- Acetaminophen 5-325 MG Hydrocodone-Acetaminophen 5-325 MG 09/14/2019 12:00:00 AM EST active 1 tab eCW1 ([facility]) 5-325 mg 09/14/2019 12:00:00 AM EST tablet 56 TAKE 1 TABLET BY MOUTH TWICE A DAY NEEDED MAX DAILY DOSE = 2 TABLETS TAKE 1 TABLET BY MOUTH TWICE A DAY NEEDED MAX DAILY DOSE = 2 TABLETS SOLD: 09/14/2019 [facility] No Active Medications 09/12/2019 12:00:00 AM EST completed MEDENT ([facility]) BLOOD SUGAR DIAGNOSTIC 09/12/2019 12:00:00 AM EST strip 300 TEST TWO TIMES A DAY AND NEEDED TEST TWO TIMES A DAY AND NEEDED SOLD: 09/13/2019 [facility] OneTouch Verio - OneTouch Verio - 08/29/2019 12:00:00 AM EST active OneTouch Verio - eCW1 ([facility]) One Touch Delica 33 gauge UNK 08/29/2019 12:00:00 AM EST active One Touch Delica 33 gauge eCW1 ([facility]) OneTouch Verio - OneTouch Verio - 08/29/2019 12:00:00 AM EST active OneTouch Verio - eCW1 ([facility]) OneTouch Verio - OneTouch Verio - 08/29/2019 12:00:00 AM EST active OneTouch Verio - eCW1 ([facility]) One Touch Delica 33 gauge UNK 08/29/2019 12:00:00 AM EST active One Touch Delica 33 gauge eCW1 ([facility]) OneTouch Verio - OneTouch Verio - 08/29/2019 12:00:00 AM EST active verio flex eCW1 ([facility]) One Touch Delica 33 gauge UNK 08/29/2019 12:00:00 AM EST active One Touch Delica 33 gauge eCW1 ([facility]) One Touch Delica 33 gauge UNK 08/29/2019 12:00:00 AM EST active testing twice a day and as needed eCW1 ([facility]) OneTouch Verio - OneTouch Verio - 08/29/2019 12:00:00 AM EST active OneTouch Verio - eCW1 ([facility]) One Touch Delica 33 gauge UNK 08/29/2019 12:00:00 AM EST active One Touch Delica 33 gauge eCW1 ([facility]) One Touch Delica 33 gauge UNK 08/29/2019 12:00:00 AM EST active One Touch Delica 33 gauge eCW1 ([facility]) OneTouch Verio - OneTouch Verio - 08/29/2019 12:00:00 AM EST active OneTouch Verio - eCW1 ([facility]) OneTouch Verio - OneTouch Verio - 08/29/2019 12:00:00 AM EST active OneTouch Verio - eCW1 ([facility]) One Touch Delica 33 gauge UNK 08/29/2019 12:00:00 AM EST active One Touch Delica 33 gauge eCW1 ([facility]) OneTouch Verio - OneTouch Verio - 08/29/2019 12:00:00 AM EST active OneTouch Verio - eCW1 ([facility]) One Touch Delica 33 gauge UNK 08/29/2019 12:00:00 AM EST active One Touch Delica 33 gauge eCW1 ([facility]) One Touch Delica 33 gauge UNK 08/29/2019 12:00:00 AM EST active One Touch Delica 33 gauge eCW1 ([facility]) One Touch Delica 33 gauge UNK 08/29/2019 12:00:00 AM EST active One Touch Delica 33 gauge eCW1 ([facility]) OneTouch Verio - OneTouch Verio - 08/29/2019 12:00:00 AM EST active OneTouch Verio - eCW1 ([facility]) OneTouch Verio - OneTouch Verio - 08/29/2019 12:00:00 AM EST active OneTouch Verio - eCW1 ([facility]) One Touch Delica 33 gauge UNK 08/29/2019 12:00:00 AM EST active One Touch Delica 33 gauge eCW1 ([facility]) OneTouch Verio - OneTouch Verio - 08/29/2019 12:00:00 AM EST active OneTouch Verio - eCW1 ([facility]) One Touch Delica 33 gauge UNK 08/29/2019 12:00:00 AM EST active testing twice a day and as needed eCW1 ([facility]) One Touch Delica 33 gauge UNK 08/29/2019 12:00:00 AM EST active One Touch Delica 33 gauge eCW1 ([facility]) One Touch Delica 33 gauge UNK 08/29/2019 12:00:00 AM EST active One Touch Delica 33 gauge eCW1 ([facility]) OneTouch Verio - OneTouch Verio - 08/29/2019 12:00:00 AM EST active verio flex eCW1 ([facility]) OneTouch Verio - OneTouch Verio - 08/29/2019 12:00:00 AM EST active OneTouch Verio - eCW1 ([facility]) OneTouch Verio - OneTouch Verio - 08/29/2019 12:00:00 AM EST active OneTouch Verio - eCW1 ([facility]) One Touch Delica 33 gauge UNK 08/29/2019 12:00:00 AM EST active One Touch Delica 33 gauge eCW1 ([facility]) OneTouch Verio - OneTouch Verio - 08/29/2019 12:00:00 AM EST active OneTouch Verio - eCW1 ([facility]) OneTouch Verio - OneTouch Verio - 08/29/2019 12:00:00 AM EST active OneTouch Verio - eCW1 ([facility]) One Touch Delica 33 gauge UNK 08/29/2019 12:00:00 AM EST active One Touch Delica 33 gauge eCW1 ([facility]) Metoprolol Tartrate 50 MG Oral Tablet Metoprolol Tartrate 50 MG 08/26/2019 12:00:00 AM EST 1.0 {tablet_with_food} active Metoprolol Tartrate 50 MG eCW1 ([facility]) Calcitriol 0.40008 MG Oral Capsule Calcitriol 0.25 MCG Calci triol 0.25 MCG 08/26/2019 12:00:00 AM EST 2.0 {capsules} active Calcitriol 0.25 MCG eCW1 ([facility]) Metoprolol Tartrate 50 MG Oral Tablet Metoprolol Tartrate 50 MG 08/26/2019 12:00:00 AM EST 1.0 {tablet_with_food} active Metoprolol Tartrate 50 MG eCW1 ([facility]) Metoprolol Tartrate 50 MG Oral Tablet Metoprolol Tartrate 50 MG 08/26/2019 12:00:00 AM EST 1.0 {tablet_with_food} active Metoprolol Tartrate 50 MG eCW1 ([facility]) Calcitriol 0.73737 MG Oral Capsule Calcitriol 0.25 MCG Calci triol 0.25 MCG 08/26/2019 12:00:00 AM EST 2.0 {capsules} active Calcitriol 0.25 MCG eCW1 ([facility]) Calcitriol 0.32012 MG Oral Capsule Calcitriol 0.25 MCG Calci triol 0.25 MCG 08/26/2019 12:00:00 AM EST 2.0 {capsules} active Calcitriol 0.25 MCG eCW1 ([facility]) Metoprolol Tartrate 50 MG Oral Tablet Metoprolol Tartrate 50 MG 08/26/2019 12:00:00 AM EST 1.0 {tablet_with_food} active Metoprolol Tartrate 50 MG eCW1 ([facility]) Metoprolol Tartrate 50 MG Oral Tablet Metoprolol Tartrate 50 MG 08/26/2019 12:00:00 AM EST 1.0 {tablet_with_food} active Metoprolol Tartrate 50 MG eCW1 ([facility]) Metoprolol Tartrate 50 MG Oral Tablet Metoprolol Tartrate 50 MG 08/26/2019 12:00:00 AM EST 1.0 {tablet_with_food} active Metoprolol Tartrate 50 MG eCW1 ([facility]) Calcitriol 0.13874 MG Oral Capsule Calcitriol 0.25 MCG Calci triol 0.25 MCG 08/26/2019 12:00:00 AM EST 2.0 {capsules} active Calcitriol 0.25 MCG eCW1 ([facility]) Calcitriol 0.03599 MG Oral Capsule Calcitriol 0.25 MCG Calci triol 0.25 MCG 08/26/2019 12:00:00 AM EST 2.0 {capsules} active Calcitriol 0.25 MCG eCW1 ([facility]) Metoprolol Tartrate 50 MG Oral Tablet Metoprolol Tartrate 50 MG 08/26/2019 12:00:00 AM EST 1.0 {tablet_with_food} active Metoprolol Tartrate 50 MG eCW1 ([facility]) Metoprolol Tartrate 50 MG Oral Tablet Metoprolol Tartrate 50 MG 08/26/2019 12:00:00 AM EST active 1 tablet with food eCW1 ([facility]) Calcitriol 0.44583 MG Oral Capsule Calcitriol 0.25 MCG Calci triol 0.25 MCG 08/26/2019 12:00:00 AM EST 2.0 {capsules} active Calcitriol 0.25 MCG eCW1 ([facility]) Calcitriol 0.70129 MG Oral Capsule Calcitriol 0.25 MCG Calci triol 0.25 MCG 08/26/2019 12:00:00 AM EST 2.0 {capsules} suspen ded Calcitriol 0.25 MCG eCW1 ([facility]) Calcitriol 0.53992 MG Oral Capsule Calcitriol 0.25 MCG Calci triol 0.25 MCG 08/26/2019 12:00:00 AM EST active 2 capsules eCW1 ([facility]) Calcitriol 0.04961 MG Oral Capsule Calcitriol 0.25 MCG Calci triol 0.25 MCG 08/26/2019 12:00:00 AM EST active 2 capsules eCW1 ([facility]) Metoprolol Tartrate 50 MG Oral Tablet Metoprolol Tartrate 50 MG 08/26/2019 12:00:00 AM EST 1.0 {tablet_with_food} active Metoprolol Tartrate 50 MG eCW1 ([facility]) Metoprolol Tartrate 50 MG Oral Tablet Metoprolol Tartrate 50 MG 08/26/2019 12:00:00 AM EST 1.0 {tablet_with_food} active Metoprolol Tartrate 50 MG eCW1 ([facility]) Calcitriol 0.61399 MG Oral Capsule Calcitriol 0.25 MCG Calci triol 0.25 MCG 08/26/2019 12:00:00 AM EST 2.0 {capsules} active Calcitriol 0.25 MCG eCW1 ([facility]) Metoprolol Tartrate 50 MG Oral Tablet Metoprolol Tartrate 50 MG 08/26/2019 12:00:00 AM EST active 1 tablet with food eCW1 ([facility]) Metoprolol Tartrate 50 MG Oral Tablet Metoprolol Tartrate 50 MG 08/26/2019 12:00:00 AM EST 1.0 {tablet_with_food} active Metoprolol Tartrate 50 MG eCW1 ([facility]) Metoprolol Tartrate 50 MG Oral Tablet Metoprolol Tartrate 50 MG 08/26/2019 12:00:00 AM EST active 1 tablet with food eCW1 ([facility]) Metoprolol Tartrate 50 MG Oral Tablet Metoprolol Tartrate 50 MG 08/26/2019 12:00:00 AM EST 1.0 {tablet_with_food} active Metoprolol Tartrate 50 MG eCW1 ([facility]) Calcitriol 0.48042 MG Oral Capsule Calcitriol 0.25 MCG Calci triol 0.25 MCG 08/26/2019 12:00:00 AM EST 2.0 {capsules} suspen ded Calcitriol 0.25 MCG eCW1 ([facility]) Calcitriol 0.27437 MG Oral Capsule Calcitriol 0.25 MCG Calci triol 0.25 MCG 08/26/2019 12:00:00 AM EST 2.0 {capsules} active Calcitriol 0.25 MCG eCW1 ([facility]) Calcitriol 0.60110 MG Oral Capsule Calcitriol 0.25 MCG Calci triol 0.25 MCG 08/26/2019 12:00:00 AM EST 2.0 {capsules} active Calcitriol 0.25 MCG eCW1 ([facility]) Calcitriol 0.84831 MG Oral Capsule Calcitriol 0.25 MCG Calci triol 0.25 MCG 08/26/2019 12:00:00 AM EST 2.0 {capsules} active Calcitriol 0.25 MCG eCW1 ([facility]) Metoprolol Tartrate 50 MG Oral Tablet Metoprolol Tartrate 50 MG 08/26/2019 12:00:00 AM EST 1.0 {tablet_with_food} active Metoprolol Tartrate 50 MG eCW1 ([facility]) Calcitriol 0.79694 MG Oral Capsule Calcitriol 0.25 MCG Calci triol 0.25 MCG 08/26/2019 12:00:00 AM EST 2.0 {capsules} active Calcitriol 0.25 MCG eCW1 ([facility]) Metoprolol Tartrate 50 MG Oral Tablet Metoprolol Tartrate 50 MG 08/26/2019 12:00:00 AM EST 1.0 {tablet_with_food} active Metoprolol Tartrate 50 MG eCW1 ([facility]) Metoprolol Tartrate 50 MG Oral Tablet Metoprolol Tartrate 50 MG 08/26/2019 12:00:00 AM EST 1.0 {tablet_with_food} active Metoprolol Tartrate 50 MG eCW1 ([facility]) Calcitriol 0.20227 MG Oral Capsule Calcitriol 0.25 MCG Calci triol 0.25 MCG 08/26/2019 12:00:00 AM EST 2.0 {capsules} active Calcitriol 0.25 MCG eCW1 ([facility]) Calcitriol 0.70523 MG Oral Capsule 0.25 mcg CALCITRIOL 08/25/2019 12:00:00 AM EST capsule 60 TAKE 2 CAPSULES [0.5MCG] BY MOUTH DAILY TAKE 2 CAPSULES [0.5MCG] BY MOUTH DAILY SOLD: 08/27/2019 [facility] 50 mg 08/25/2019 12:00:00 AM EST tablet 60 TAKE 1 TABLET [50MG] BY MOUTH TWO TIMES A DAY TAKE 1 TABLET [50MG] BY MOUTH TWO TIMES A DAY SOLD: 08/27/2019 [facility] 5-325 mg 08/17/2019 12:00:00 AM EST tablet 56 TAKE ONE TABLET BY MOUTH TWICE A DAY NEEDED MAXIMUM DAILY DOSE = 2 TABLETS TAKE ONE TABLET BY MOUTH TWICE A DAY NEEDED MAXIMUM DAILY DOSE = 2 TABLETS SOLD: 08/17/2019 [facility] Acetaminophen 325 MG / Hydrocodone Alayna trate 5 MG Oral Tablet Hydrocodone- Acetaminophen 5-325 MG Hydrocodone-Acetaminophen 5-325 MG 08/15/2019 12:00:00 AM EST active 1 tab eCW1 ([facility]) 2 mg 08/15/2019 12:00:00 AM EST tablet 112 TAKE 2 TABLETS BY MOUTH TWICE A DAY NEEDED MAXIMUM DAILY DOSE = 4 TAKE 2 TABLETS BY MOUTH TWICE A DAY NEEDED MAXIMUM DAILY DOSE = 4 SOLD: 08/15/2019 [facility] Acetaminophen 325 MG / Hydrocodone Alayna trate 5 MG Oral Tablet Hydrocodone- Acetaminophen 5-325 MG Hydrocodone-Acetaminophen 5-325 MG 08/15/2019 12:00:00 AM EST active 1 tab eCW1 ([facility]) Acetaminophen 325 MG / Hydrocodone Alayna trate 5 MG Oral Tablet Hydrocodone- Acetaminophen 5-325 MG Hydrocodone-Acetaminophen 5-325 MG 08/15/2019 12:00:00 AM EST active 1 tab eCW1 ([facility]) Acetaminophen 325 MG / Hydrocodone Alayna trate 5 MG Oral Tablet Hydrocodone- Acetaminophen 5-325 MG Hydrocodone-Acetaminophen 5-325 MG 08/15/2019 12:00:00 AM EST active 1 tab eCW1 ([facility]) 62.5-25 mcg/actuation 08/04/2019 12:00:00 AM EST blister wit h device 60 INHALE 1 PUFF INTO THE LUNGS DAILY INHALE 1 PUFF INTO THE LUNGS DAILY SOLD: 12/27/2019 [facility] 62.5-25 mcg/actuation 08/04/2019 12:00:00 AM EST blister wit h device 60 INHALE 1 PUFF INTO THE LUNGS DAILY INHALE 1 PUFF INTO THE LUNGS DAILY SOLD: 08/06/2019 [facility] 62.5-25 mcg/actuation 08/04/2019 12:00:00 AM EST blister wit h device 60 INHALE 1 PUFF INTO THE LUNGS DAILY INHALE 1 PUFF INTO THE LUNGS DAILY SOLD: 10/30/2019 [facility] 62.5-25 mcg/actuation 08/04/2019 12:00:00 AM EST blister wit h device 60 INHALE 1 PUFF INTO THE LUNGS DAILY INHALE 1 PUFF INTO THE LUNGS DAILY SOLD: 02/25/2020 [facility] 62.5-25 mcg/actuation 08/04/2019 12:00:00 AM EST blister wit h device 60 INHALE 1 PUFF INTO THE LUNGS DAILY INHALE 1 PUFF INTO THE LUNGS DAILY SOLD: 04/03/2020 [facility] 62.5-25 mcg/actuation 08/04/2019 12:00:00 AM EST blister wit h device 60 INHALE 1 PUFF INTO THE LUNGS DAILY INHALE 1 PUFF INTO THE LUNGS DAILY SOLD: 07/13/2020 [facility] Acetaminophen 325 MG Oral Tablet acetaminophen (TYLENO L) tablet 650 mg acetaminophen (TYLENOL) tablet 650 mg 08/03/2019 06:45:00 PM EST 65 0 mg Oral completed 650 mg, Oral, O nce, Thu08/03/19 at 1845, For 1 dose
Maximum daily dose of acetaminophen is 3000 mg from all sources in 24 hours.
[facility] Medication administered onsite Cyclobenzaprine hydrochloride 10 MG Oral Tablet cyclobenzaprine (FLEXERIL) tablet 10 mg cyclobenzaprine (FLEXERIL) tablet 10 mg 08/03/2019 06:45:00 PM EST 10 mg Oral completed 10 mg, Oral, O nce, Thu08/03/19 at 1845, For 1 dose [facility] Medication administered onsite Acetaminophen 325 MG / Hydrocodone Alayna trate 5 MG Oral Tablet HYDROcodone- acetaminophen (LORTAB) 5-325 MG per tablet 1 tablet HYDROcodone-acetaminophen (LORTAB) 5-325 MG per tablet 1 tablet 08/03/2019 04:00:00 PM EST 1 {tbl} Oral completed 1 tablet, Oral, Once, Thu08/03/19 at 1600, For 1 dose
Maximum daily dose of acetaminophen is 3000 mg from all sources in 24 hours.
[facility] Medication administered onsite 30 ACTUAT umeclidinium 0.0625 MG/ACTUAT / vilanterol 0.025 MG/ACTUAT Dry Powder Inhaler Umeclidinium-Vilanterol 62.5-25 MCG/INH Inhalation Aerosol Powder Breath Activated (ANORO ELLIPTA) Umeclidinium-Vilanterol 62.5-25 MCG/INH Inhalation Aerosol Powder Breath Activated (ANORO ELLIPTA) 08/03/2019 12:00:00 AM EST 1 {puff} Inhalation active Inhale 1 puff into th e lungs daily [facility] 100 mg 07/28/2019 12:00:00 AM EST capsule 60 TAKE 1 CAPSULE BY MOUTH TWO TIMES A DAY MAX DAILY DOSE = 2 CAPSULES TAKE 1 CAPSULE BY MOUTH TWO TIMES A DAY MAX DAILY DOSE = 2 CAPSULES SOLD: 08/01/2019 [facility] 5-325 mg 07/16/2019 12:00:00 AM EST tablet 28 TAKE ONE TABLET BY MOUTH ONCE DAILY NEEDED MAXIMUM DAILY DOSE = 1 TABLET TAKE ONE TABLET BY MOUTH ONCE DAILY NEEDED MAXIMUM DAILY DOSE = 1 TABLET SOLD: 07/17/2019 [facility] Acetaminophen 325 MG / Hydrocodone Alayna trate 5 MG Oral Tablet Hydrocodone- Acetaminophen 5-325 MG Hydrocodone-Acetaminophen 5-325 MG 07/15/2019 12:00:00 AM EST active 1 tab [email or web address] ([facility]) 15-20 gram/60 mL 07/13/2019 12:00:00 AM EST suspension 240 TAKE 60MLS [1 BOTTLE] BY MOUTH NEEDED DIRECTED TAKE 60MLS [1 BOTTLE] BY MOUTH NEEDED DIRECTED SOLD: 07/17/2019 [facility] 0.8 mg 07/06/2019 12:00:00 AM EST tablet 90 TAKE ONE TABLET BY MOUTH EVERY DAY TAKE ONE TABLET BY MOUTH EVERY DAY SOLD: 10/17/2019 [facility] 0.8 mg 07/06/2019 12:00:00 AM EST tablet 90 TAKE ONE TABLET BY MOUTH EVERY DAY TAKE ONE TABLET BY MOUTH EVERY DAY SOLD: 01/13/2020 [facility] 0.8 mg 07/06/2019 12:00:00 AM EST tablet 90 TAKE ONE TABLET BY MOUTH EVERY DAY TAKE ONE TABLET BY MOUTH EVERY DAY SOLD: 04/09/2020 [facility] [place]-Olodaterol 2.5-2.5 MC G/ACT Inhalation Aerosol Solution (STIOLTO RESPIMAT) [id number] 07/05/2019 12:00:00 AM EST 2 {puff} Inhalatio n aborted Inhale 2 puffs [address] the lungs [facility] 75 mcg 06/28/2019 12:00:00 AM EST tablet 30 TAKE ONE TABLET BY MOUTH EVERY MORNING TAKE ONE TABLET BY MOUTH EVERY MORNING SOLD: 12/19/2019 [facility] 75 mcg 06/28/2019 12:00:00 AM EST tablet 30 TAKE ONE TABLET BY MOUTH EVERY MORNING TAKE ONE TABLET BY MOUTH EVERY MORNING SOLD: 08/27/2019 [facility] 75 mcg 06/28/2019 12:00:00 AM EST tablet 30 TAKE ONE TABLET BY MOUTH EVERY MORNING TAKE ONE TABLET BY MOUTH EVERY MORNING SOLD: 10/30/2019 [facility] 75 mcg 06/28/2019 12:00:00 AM EST tablet 30 TAKE ONE TABLET BY MOUTH EVERY MORNING TAKE ONE TABLET BY MOUTH EVERY MORNING SOLD: 01/28/2020 [facility] 75 mcg 06/28/2019 12:00:00 AM EST tablet 30 TAKE ONE TABLET BY MOUTH EVERY MORNING TAKE ONE TABLET BY MOUTH EVERY MORNING SOLD: 10/02/2019 [facility] 20 mg 05/24/2019 12:00:00 AM EDT tablet 90 TAKE ONE TABLET BY MOUTH AT BEDTIME TAKE ONE TABLET BY MOUTH AT BEDTIME SOLD: 08/27/2019 [facility] 40 mg 04/29/2019 12:00:00 AM EDT capsule,delayed release (DR/EC) 90 TAKE ONE CAPSULE BY MOUTH EVERY DAY TAKE ONE CAPSULE BY MOUTH EVERY DAY SOLD: 07/25/2019 [facility] 100 mg 03/23/2019 12:00:00 AM EDT tablet 30 TAKE ONE TABLET BY MOUTH DAILY AT BEDTIME TAKE ONE TABLET BY MOUTH DAILY AT BEDTIME SOLD: 08/27/2019 [facility] Trazodone Hydrochloride 100 MG Oral Tablet TRAZODONE HCL 03/23/2019 12:00:00 AM EDT tablet 30 TAKE ONE TABLET BY MOUTH SURJIT LY AT BEDTIME TAKE ONE TABLET BY MOUTH DAILY AT BEDTIME SOLD: 07/25/2019 [facility] 5 mg 12/11/2018 12:00:00 AM EDT tablet 90 TAKE ONE TABLET BY MOUTH THREE TIMES A DAY NEEDED TAKE ONE TABLET BY MOUTH THREE TIMES A DAY NEEDED S OLD: 07/25/2019 [facility] 5 mg 12/11/2018 12:00:00 AM EDT tablet 90 TAKE ONE TABLET BY MOUTH THREE TIMES A DAY NEEDED TAKE ONE TABLET BY MOUTH THREE TIMES A DAY NEEDED S OLD: 09/13/2019 [facility] 5 mg 12/11/2018 12:00:00 AM EDT tablet 90 TAKE ONE TABLET BY MOUTH THREE TIMES A DAY NEEDED TAKE ONE TABLET BY MOUTH THREE TIMES A DAY NEEDED S OLD: 10/30/2019 [facility] 4 mg 12/03/2018 12:00:00 AM EDT tablet 45 TAKE ONE TABLET BY MOUTH EVERY 8 HOURS NEEDED TAKE ONE TABLET BY MOUTH EVERY 8 HOURS NEEDED SOLD: 11/30/2019 [facility] sucroferric oxyhydroxide 500 MG Chewable Tablet Sucroferric Oxyhydroxide 500 MG Oral Tablet Chewable (VELPHORO) Sucroferric Oxyhydroxide 500 MG Oral Tab let Chewable (VELPHORO) Oral aborted Chew by Mouth [facility] b complex-vitamin c-folic acid (NEPHRO-GUILHERME) 0.8 MG TABS 9085-9919- 01 0.8 mg Oral aborted Take 0.8 [facility] Payer name Policy type / Coverage type Policy ID Covered libertarian ID Covered libertarian's relationship to brock Policy Brock Plan Information ESTEPHANIE [id number] SP [id number] MEDICARE [id number] SP [id number] MEDICARE A [id number] Self [id number] MEDICAID M [id number] Self [id number] DME Jurisdiction A NHIC C [id number] SELF [id number] Medicare C [id number] SELF [id number] Medicaid [facility] Healthcare S D [id number] SELF [id number] OTHER B TRANSPLANT Self TRANSPLAN T MEDICARE C [id number] S [id number] MEDICAID M [id number] S [id number] MEDICARE MCA [id number] S [id number] MEDICAID HEA [id number] S [id number] MEDICARE MCA [id number] S [id number] [id number] MEDICARE [id number] SP [id number] MEDICARE C [id number] S [id number] MEDICAID [id number] SP [id number] NORIDIAN JE PART B C [id number] S [id number] MEDICARE C [id number] S [id number] MEDICARE -RECURRING [id number] 18 [id number] MEDICAID -RECURRING [id number] 1 [id number] ANSI-Medicare Part B [id number] ANSI-Medicaid [id number] ANSI-Commercial [id number]-[id number] [facility]-Medicare Part B [id number] ANSI-Medicaid [id number] ANSI-Commercial [id number]-jj22-5b2l-c38j-[id number] [id number]-rk12-9i3x-k81s-[id number] ANSI-Commercial [id number]-[id number]-[id number] [facility] [id number] [facility] [id number] ANSI-Medicaid [id number] ANSI-Commercial [id number]-[id number]-[id number]-q1z0-530o-09bt-[id number] [facility] [id number] ANSI-Medicaid [id number] ANSI-Commercial [id number]-[id number] ANSI-Medicare Part B [id number] ANSI-Medicare Part B [id number] ANSI-Commercial [id number]-mf04-114j-6zmi-[id number] [id number]-hl80-382t-5lnp-[id number] ANSI-Medicaid [id number] ANSI-Commercial 0m0o048x-5975-872u-x1sz-97x29909qw3q [id number]-3927-626h-z9gv-[id number] ANSI-Medicaid [id number] ANSI-Medicare Part B [id number] ANSI-Medicare Part B [id number] ANSI-Commercial 18tj4o34-3ow3-4595-27u9-372m3gw28g74 25to2z32-9cw9-6747-79k4-362u7wz79l12 ANSI-Medicaid [id number] Medicaid [place] Medigap Part B [id number] Self [id number] Medicare Natl Gov't Servi Medicare Primary [id number] Self [id number] ANSI-Commercial [id number]-w6vt-62ux-uj9p-[id number] 2sp5y06m-u9ie-33vk-qw0s-[id number] ANSI-Medicaid [id number] ANSI-Medicare Part B [id number] ANSI-Medicaid [id number] ANSI-Commercial 746m794h-f158-213d-0w1e-[id number] 042y517v-i843-192t-2j4j-[id number] ANSI-Medicare Part B [id number] ANSI-Commercial [id number]-wd9d-5ry036x1hq66 5z00j6u7-4tn9-3edv-gv0p-[id number] ANSI-Medicaid [id number] ANSI-Medicare Part B [id number] ANSI-Medicare Part B [id number] ANSI-Medicaid [id number] ANSI-Commercial [id number]-o083-2189-38lr-z20s3vmh7w23 4chxf453-n068-4113-62ot-t66h2ppz9n46 ANSI-Medicare Part B [id number] ANSI-Commercial aw651wje-2l20-9479-z664-j6y253h71e55 zs937dea-5o27-8872-s036-y0o923g96a25 ANSI-Medicaid [id number] ANSI-Commercial 7507ioeu-32q9-242j06q7-690v-iibl-6p35mmw2jff3 7151jyfs-98k9-317b91i0-857c-ljjc-0i28mks7nrk8 ANSI-Medicaid [id number] ANSI-Medicare Part B [id number] Medicaid [place] Medig[place] Part B [id number] Self [id number] Medicare [facility] Medicare Primary [id number] Self [id number] ANSI-Commercial [id number]-w37u-7q99-31a5-[id number] 491a86fb-z68w-[id number] ANSI-Medicare Part B [id number] [facility]-Medicaid [id number] ANSI-Commercial [id number]-ns72-81kn-ls2y-6v0re4s92026 lr540372-gk36-17tq-xb4o-2u4lj5b37324 ANSI-Medicare Part B [id number] [facility]-Medicaid [id number] [facility]-Medicaid [id number] ANSI-Medicare Part B [id number] ANSI-Commercial [id number]-3t53-39h3-778a-2i33335x4slg lru9415f-9f98-83r8-288e-9i65278o7uhk ANSI-Commercial 5tumcm70-lj17-8ja0-6334-1d2ck4c6v811 3agjbe55-ln14-6gp1-1076-7v9br3i4f295 [facility]-Medicaid [id number] ANSI-Medicare Part B [id number] ANSI-Medicaid [id number] ANSI-Medicare Part B [id number] ANSI-Commercial 1420i24f-[id number] 6931r64e-[id number] ANSI-Medicaid [id number] ANSI-Medicare Part B [id number] ANSI-Commercial 15px15s3-1e69-480q-6866-4864j557f098 69dg75p2-6t27-822a-[id number] ANSI-Medicare Part B [id number] ANSI-Commercial d2fthckg-i35o-0a9l-e87t-y8906g6uq7w8 f8gphhrh-x62c-6y8d-w39o-a0885t6ji0m7 ANSI-Medicaid [id number] ANSI-Commercial 42uz1fv0-3346-06l6-1dbb-323zn8z7tu45 47if5pk1-1912-71m5-5dka-529rk7c4my67 ANSI-Medicare Part B [id number] ANSI-Medicaid [id number] ANSI-Medicare Part B [id number] ANSI-Commercial 6qyf5663-yz3n-8446-787h-92222f1pmjm6 6iru9291-ql4m-6007-006t-37768p3pfjn7 ANSI-Medicaid [id number] Medicaid [facility] S D [id number] SELF [id number] Medicare C [id number] SELF [id number] ANSI-Medicaid [id number] ANSI-Medicare Part B [id number] ANSI-Commercial zt93qwtt-7ar0-3431-40i5-8z984494sli1 kb97nqfw-2ha9-9488-07d7-3p766471klv0 ANSI-Commercial 2u28b41j-554k-32h0-h6f8-5pp01202x771 4y73s62i-584g-37i8-w1w6-3ma37509e547 ANSI-Medicare Part B [id number] ANSI-Medicaid [id number] NO FAULT 441-FW-ARN1986-M Madeleine 263 -LX-QRC1546-W NO FAULT [id number] Madeleine [id number] [facility]-Medicare Part B [id number] ANSI-Commercial 7s63mrxm-gt18-6f7h-7960-p25e5fgx4376 1e40wsko-yt63-7z3y-7693-u83m6zat2079 ANSI-Medicaid [id number] ANSI-Commercial 476p33o9-7d11-5ux9-xyt5-s22en1v88k5w 104o58x4-2h57-4ku2-zlq4-z66am9j62a9a ANSI-Medicare Part B [id number] ANSI-Medicaid [id number] ANSI-Commercial 803c935p-ub0e-6037-pg4x-6755b9z45j56 601t838l-ys4s-2751-do3o-1177k1q54q41 ANSI-Medicaid [id number] ANSI-Medicare Part B [id number] ANSI-Medicare Part B [id number] ANSI-Medicaid [id number] ANSI-Commercial 20w171r4-1o81-9982-m7hj-97h4423424b1 53f215f8-1y72-7112-q5ix-95q1237468e2 NO FAULT PI PI ANSI-Medicaid [id number] ANSI-Commercial d3cy6xak-1a5a-7534-5o1z-8q3a2f52009l l3kc3cjn-8y3n-9750-9r0m-6a5o7h55182x ANSI-Medicare Part B [id number] ANSI-Commercial [id number]-c760-0565-1lpa-c798ke241798 n9785330-w893-1121-2wuf-m240io690532 ANSI-Medicaid [id number] ANSI-Medicare Part B [id number] ANSI-Commercial [id number]-w8y5-1n1c4cn68q78 c5535956-04d9-5942-z6o7-4v9d2zw58f37 ANSI-Medicare Part B [id number] ANSI-Medicaid [id number] ANSI-Commercial 98hd0530-7u4j-2s81-2ycs-65zg9zp7454v 16lr6572-5l4j-3q40-5tet-[id number] ANSI-Medicaid [id number] ANSI-Medicare Part B [id number] ANSI-Commercial e9p4b163-u6g1-1d88-i6f4-4p41q73d212q m1i3o976-l1z5-5a88-l6c6-4v75v37t187z ANSI-Medicaid [id number] ANSI-Medicare Part B [id number] ANSI-Medicare Part B [id number] ANSI-Medicaid [id number] ANSI-Commercial 118f74tl-zx22-9795-r6yl-ig9f182l87rf 497z18mo-ri69-1638-u8tw-pq4b274g09nr [facility] PART B C [id number] S [id number] ANSI-Medicare Part B [id number] [facility] [id number] ANSI-Commercial [id number]-d74v39dpo6l2 [id number]-q77y88vqy2i1 ANSI-Medicaid [id number] ANSI-Medicare Part B [id number] ANSI-Commercial [id number]-cv8e-66q2-65c6-a921ul1v3n02 [id number]-wk8i-26u4-12k6-m058ya0f9i70 ANSI-Medicare Part B [id number]-[id number] ANSI-Medicaid [id number]-5i21-[id number] ANSI-Commercial q95424of-g6d3-77ou-81i2-75o42479wb15 x28134uo-u2q4-81zc-03x3-33p66958zo43 ANSI-Medicare Part B [id number]-549v-[id number] ANSI-Commercial 8fv701g9-zo35-23k5-k166-7q1dp73i1018 2ww077o3-fm42-60i7-f536-6f2lm49o0975 ANSI-Medicaid [id number] ANSI-Medicare Part B [id number]-[id number] ANSI-Medicaid [id number] ANSI-Commercial 0sn060w3-fv41-0176-35n5-338z353319t8 8mq987d1-hk17-2518-01n2-677y194159h5 ANSI-Commercial 4ky35055-9381-670e-jka8-n95e9u6o93a5 3se49647-0328-169u-uif3-q07m0y5g46b2 ANSI-Medicare Part B [id number]-62dl-[id number] ANSI-Medicaid [id number] ANSI-Medicare Part B [id number]-y8iu-67vy-y1uk-0z8d8b79zdwj ANSI-Medicaid [id number] ANSI-Commercial he83lk4b-52n5-33ia-5c61-33h2930ciuhn ol13eg3q-62b1-01ed-5n09-84r3288kvxig ANSI-Medicare Part B [id number]-1u49-43to8p2s8j3g ANSI-Commercial x18r26tl-72yh-9i8g-8lo5-p58h77ug7f91 d91q95sk-37nh-4g5c-5yg2-b55e75rt6c77 ANSI-Medicaid [id number]-[id number] ANSI-Commercial 0i923j54-yd25-6789-tn3c-404v5wm84j7q 2z045d07-gy64-6502-ff5a-640o6hx35h7b ANSI-Medicaid [id number] ANSI-Medicare Part B [id number]-a82u-[id number] ANSI-Medicaid [id number]-kzcy-2577-[id number] ANSI-Commercial d70os57o-mi43-412x-dzmc-kg3425352k31 c48yz71l-qd50-776f-ewgo-qc3709413j89 ANSI-Medicare Part B [id number]-[id number]-5991-0s7a-5ua9-ttsz9j11r3d4 ANSI-Medicaid [id number] 1vsb0su6-1sxu-90s0-5q1o-[id number] ANSI-Commercial lj36k0kk-js06-573q-08y1-hf19fgs44s34 ce63j8ef-kt52-851p-42e1-em79vaw00x23 ANSI-Medicare Part B [id number]-knag-0fdc-[id number] ANSI-Medicare Part B [id number]-[id number] ANSI-Medicaid [id number]-42a8-33cj-z5zs-[id number] ANSI-Commercial gh988x05-n427-68t2-1ij6-bvyw2j54493m sr297w31-p386-88u7-7al9-tgeq2d45685p ANSI-Medicaid [id number] ANSI-Medicare Part B [id number]-n4iq-a77kn25t2o9j ANSI-Commercial c6be676c-7dmk-75kj-vyl1-99f20y004528 a0te641h-3mmn-62vi-mdl1-95r14q622678 ANSI-Medicare Part B [id number]-[id number]-[id number] 0c874ax8-918g-49gs-9lp0-gv8w8s300o9n ANSI-Commercial 7n066133-o866-02b1-y877-80w00ujr9654 3o893579-h179-17q2-y040-20v03lbt7907 ANSI-Medicaid [id number]-[id number] ANSI-Medicare Part B [id number] o6r8vwan-1j25-943c-bc34-9qp46jy0kli6 ANSI-Commercial ds58h5q1-4027-795b-9rja-43wu2b61gw68 jk04s5r9-9057-908q-0udt-11dp6x74le43 ANSI-Medicaid [id number] [facility] INSURANCE [id number] SP [id number] ANSI-Medicare Part B [id number]-fezv-2c53-zfy1-0vrq20l4qsj0 ANSI-Medicaid [id number]-257y-t0cn-3q9z9k2h2l98 ANSI-Commercial 62x09xbf-v083-633r-m209-59r5iur37805 70n55cmk-l433-502q-q345-72r0yeb28184 OTHER NO FAULT [id number] ANSI-Commercial 3464012z-191t-149w-z363-078v618160fm 4267825p-468w-195m-o717-111n079054ce ANSI-Medicaid [id number] 1rt2g4nb-1cxl-7j2b-tlr4-6p3806wes4v5 ANSI-Medicare Part B [id number] 5xcys83v-6ml0-368y-lgh8-68vdur05225v ANSI-Commercial 88d536g8-llmh-5z9z-4v24-dyo77uax9v54 37b476t5-oxfw-8k5x-7q52-ctx54jvj3e58 ANSI-Medicaid [id number]-8986-hl55-3v084z7q9b77 ANSI-Medicare Part B [id number] 1k1ft873-eyx2-8uq6-m005-nm62c6v03b68 ANSI-Medicare Part B [id number]-[id number] oisp5945-6398-51zb-5611-i6009f2ga0yt ANSI-Medicaid [id number]-[id number] ANSI-Commercial 11682o3s-2355-21p1-x19j-52145n3h080b 57826z8g-9580-39i7-s54q-60319n6n953n ANSI-Commercial 58qyshtv-srv7-15pc-6jt4-ieim06uid04z 57mibolk-zvj9-19oj-0ta3-lgvt60ktr63p ANSI-Medicare Part B [id number]-wp62-tcg1g2l0p0wc 3354418b-i7a6-9qsz-fn89-eru0s3k8z1bi ANSI-Medicaid [id number]-mx6i-26uv-[id number] ANSI-Commercial 9atz12l6-07r4-4c40-p8q3-wi64507n226s 9qug20g8-47z0-5s15-r6h7-sp47616e395d ANSI-Medicare Part B [id number] 89v43v8b-7erx-1o20-9526-204wp6h91371 ANSI-Medicaid [id number] [id number]-o16n-3kos-v27x-[id number] ANSI-Medicaid [id number]-l87g-ajw4y43rps2z ANSI-Commercial 55t6r8gl-44i7-945f-tn6c-n509a6qz9735 90e0t6bn-70e6-056m-xd0e-q441i9la7932 ANSI-Medicare Part B [id number]-m397-[id number] wc5z70g6-z267-3pf3-a025-hc80m03m1w3e ANSI-Medicaid [id number]-hcz1-[id number] ANSI-Medicare Part B [id number] b072u031-k660-411m-r99g-[id number] ANSI-Commercial p8y75bv7-872a-3438-8213-469k6028j5ua w5c13sd5-142v-1243-2676-602m8858v7wi ANSI-Medicare Part B [id number]-[id number] oj207hj9-8usw-1670-aq1r-[id number] ANSI-Commercial 9r00pvvr-5ft6-2179-0o83-or1z6g9303v7 9q26ajgm-7eq1-3636-4v42-oz2w4a7117c6 ANSI-Medicaid [id number]-170z-[id number] ANSI-Medicare Part B [id number] [id number]-54u6-83df-67c2a7wgp007 ANSI-Commercial 1lw45256-e42c-21xx-740u-2915pq531001 0ex23422-o07u-71uj-436x-4796nm385763 ANSI-Medicaid [id number]-[id number] ANSI-Medicaid [id number] ANSI-Commercial 3072701u-64p9-8e49-8z30-565w40q3372k 8137431x-28r2-7e80-6d74-263k35k7524v ANSI-Medicare Part B [id number]-5bve-[id number]-w3c8-39cl-7hzi-s42j7a4588m8 ANSI-Commercial 70p69v65-v2f6-8ug3-aj43-h8ase4nj513w 44o69k40-o3z1-4jt8-sq02-w5pnt0af764l ANSI-Medicaid [id number]-c5lb-[id number] ANSI-Medicare Part B [id number] [id number] ANSI-Medicare Part B [id number]-[id number] ANSI-Commercial 0l56o113-x9dw-8997-a188-8kjqm9fiv77p 1h47u814-x8pr-2200-v203-5dptq4gjt85k ANSI-Medicaid [id number]-[id number] [facility] [id number] SP 1 [id number] DME Jurisdiction A [facility] C [id number] SELF [id number] ANSI-Medicare Part B [id number]-[id number] ANSI-Commercial 20g8if15-q1ff-139c-wia1-f64071i41ay4 64o0kj27-m3jc-581m-rav3-f44125i76ot8 ANSI-Medicaid [id number] ANSI-Medicaid [id number]-3m47-31p4-[id number] ANSI-Commercial 558e99el-2828-6a3q-97g2-8ktp6358hm42 102f63bd-2062-2a4u-53w7-0czl8070gq41 ANSI-Medicare Part B [id number] [id number]-87r7-[id number] [facility] [id number] ANSI-Medicare Part B [id number]-[id number] ANSI-Commercial 0qns8480-osv2-6435-5b2g-8x93u5k56255 5ktb5785-fes7-4922-3w0f-7u84q3c39634 ANSI-Medicare Part B [id number] [id number]-3994-[id number] ANSI-Commercial ql4i9lj1-ba09-75ll-pry1-28845l3as4i5 uc0j2tm1-dl55-86ty-qqm2-80470j8og1f7 ANSI-Medicaid [id number]-7980-06c4-uos2-0etn7ym5fpm8 MEDICARE [id number] SP [id number] ANSI-Commercial l73a0304-6853-652d-ov2n-783r14fh860k c94e2835-9816-453k-rz7c-062f11yz076p ANSI-Medicare Part B [id number]-f7cx-[id number] ANSI-Medicaid [id number]-[id number] MEDICARE A [id number] Self [id number] MEDICARE -RECURRING [id number] ANSI-Commercial [id number] ANSI-Medicare Part B [id number] ANSI-Medicaid [id number] ANSI-Medicaid [id number] ANSI-Medicare Part B [id number] ANSI-Commercial [id number] [employer] C [id number] S [id number] Medicare C [id number] SELF [id number] Medicare C [id number] SELF [id number] T MEDICARE A [id number] Self [id number] MEDICARE A [id number] Self [id number] T MEDICARE C [id number] S [id number] T OPTIONS C [id number] S [id number] [place] [id number] Self [id number] Medicare [facility] Medicare Primary [id number] 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 [id number] SP [id number] [facility] O [id number] S [id number] MEDICAID [id number] SP [id number] MEDICARE [id number] SP [id number] [place] Part B Self Medicare [facility] Medicare Primary Self MEDICARE [id number] SP [id number] T SELF PAY 2 UNAVAILABLE 1 UNA[place]IL[place] BLE [place]ID [place] 3 [id number] 1 [id number] MEDICARE 4 [id number] 1 [id number] T FIRST [employer] NOT FOR TODAYS VISIT SP NOT FOR TODAYS VISIT BIG LOTS NOT IN EFFECT SP NOT IN EFFECT Problems, Conditions, and Diagnoses Code Display Name Description Problem Type Effective Dates Data Source(s) M87.052 [id number] 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 Problem 08/03/2020 12:00:00 AM EST eCW1 ([facility]) 838792708 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 Problem 09/12/2019 12:00:00 AM EST MEDENT ([facility]) E83.51 5318474 Hypocalcemia Problem 08/29/2019 12:00:00 AM EST eCW1 ([facility]) E83.51 [id number] Hypocalcemia Problem 08/29/2019 12:00:00 AM EST eCW1 ([facility]) E04.1 [id number] Thyroid nodule Problem 08/24/2019 12:00:00 A M EST eCW1 ([facility]) E04.1 [id number] Thyroid nodule Problem 08/24/2019 12:00:00 A M EST eCW1 ([facility]) N60.01 Solitary cyst of right breast Solitary cyst of right b reast Diagnosis 08/31/2020 11:28:37 AM [facility] Z12.31 Encounter for screening mammogram for ma lignant neoplasm of breast Encounter for screening mammogram for malignant neoplasm of breast Diagnosis 08/31/2020 11:28:37 AM [facility] R92.8 Other abnormal and inconclusive findings on diagnostic imaging of breast Other abnormal and inconclusive findings on diagnostic imaging of breast Diagnosis 08/31/2020 10:27:45 AM [facility] N63.10 Unspecified lump in the right breast, un specified quadrant Unspecified lump in the right breast, unspecified quadrant Diagnosis 021 10:27:45 AM [facility] R92.1 Mammographic calcification found on diag nostic imaging of breast Mammographic calcification found on diagnostic imaging of breast Diagnosis 08/31/2020 10:27:10 AM [facility] G89.29 Other chronic pain Other chronic pain Diagnosis 02/2020 03:12:04 PM [facility] M54.9 Dorsalgia, unspecified Dorsalgia, unspecified Diagnosi s 08/03/2019 03:12:04 PM [facility] M54.2 Cervicalgia Cervicalgia Diagnosis 08/03/2019 03:12:04 PM [facility] W18.00XA Striking against unspecified object with subsequent fall, initial encounter Striking against unspecified object with subsequent fall, initial encounter Diagnosis 08/03/2019 03:12:04 PM [facility] small increase of Rt intraventricular he morrhage small increase of Rt intraventricular hemorrhage Diagnosis 08/03/2019 03:12:04 PM [facility] Surgeries/Procedures Procedure Description Date Indications Data Source(s) CT THORAX W/O CONTRAST MATERIAL CT THORAX WITHOUT CONTRAST 7125 0 Routine 03/21/2020 12:27 PM EDT Pulmonary nodules 03/21/2020 12:27:33 PM EDT Pulmonary nodules [facility] Pulmonary nodules Fine Needle Aspiration Biopsy Inlcd Ultrasound Guidance 09/19/2019 12:00:00 AM EST MEDENT ([facility]) TRANS CARE MGMT 7 DAY DISCH 08/29/2019 12:00:00 AM EST eCW1 ([facility]) Annual wellness visit, includes a person alized prevention plan of service (pps), subsequent visit 08/15/2019 12:00:00 AM EST eCW1 ([facility]) IMMUNIZATION ADMIN 08/15/2019 12:00:00 AM EST eCW1 ([facility]) Shingrix 50mcg/0.5mL (Zoster) 08/15/2019 12:00:[address] eCW1 ([facility]) Annual alcohol misuse screening, 15 minutes 08/15/2019 12:00:00 AM EST eCW1 ([facility]) ARTHROCENTESIS ASPIR&/INJECTION MAJOR JT/BURSA 020 12:00:00 AM EST MEDENT ([facility] ) CT LUMBAR SPINE W/O CONTRAST MATERIAL CT LUMBAR SPINE WITHO [place] CONTRAST 70043 STAT 08/03/2019 5:31 PM EST 08/03/2019 10:31:[address] [facility] [address] HEAD/BRAIN W/O CONTRAST MATERIAL CT HEAD WITHOUT CONTRAST 70 450 STAT 08/03/2019 5:31 PM EST 08/03/2019 10:31:05 PM [facility] PARTIAL THROMBOPLASTIN TIME (PTT) PARTIAL THROMBOPLASTIN TIME ( PTT) STAT 08/03/2019 3:56 PM EST 08/03/2019 08:56:00 PM [facility] PROTHROMBIN TIME PROTIME INR STAT 08/03/2019 3:56 PM EST 08/03/2019 08:56:00 PM [facility] BLOOD COUNT COMPLETE AUTO&AUTO DIFRNTL WBC COUNT CBC AND DIFFER ENTIAL STAT 08/03/2019 3:56 PM EST 08/03/2019 08:56:00 PM [facility] BASIC METABOLIC PANEL CALCIUM TOTAL BASIC METABOLIC PANEL STAT 08/03/2019 3:56 PM EST 08/03/2019 08:56:00 PM [facility] Results ID Date Data Source [id number] 09/04/2020 08:21:24 AM [facility] Name Value Range Interpretation Code Description Data Melanie rce(s) Supporting Document(s) Progress Note [facility] LJMGYi1qMaQKDqHa80/CFCvyTKJiz7SvXLttWAl5BWrdALVdY8LbXEX8wY5lERY2OSiTTyNfRoThRhQ7 lbm [file] NmEzOWIyYTFlZjI+NU0lUEf+Nn9Tm4DjlnZ9edRqMXjiYCV0RT6WPRQAN9LMRv== ID Date Data Source [id number] 09/04/2020 08:06:09 AM EST [facility] MAMMO DIGITAL DIAGNOSTIC RIGHT [id number] RESULTInterpreted by:TIA Pond DIGITAL MAMMOGRAM WITH COMPUTER-AIDED DETECTION and TARGETED RIGHT BREAST ULTRASOUNDHISTORY: Short-term follow-up after benign right breast biopsy performed at outside facility. Short-term follow-up of mass seen on ultrasound outside facility. The patient reports family history of breast cancer in maternal aunt. The patient reports multiple benign left breast biopsies in the past.[employer] risk assessment model:5 year calculated risk: 2.2%Average patient 5 year risk: 2.0%Lifetime risk: 8.6%Average patient lifetime risk: 8.1%COMPARISON: Outside mammograms dating back to 07/15/2015; outside breast ultrasound 04/2020Last Reported Clinical Breast Exam: TodayTECHNIQUE: Craniocaudal and mediolateral oblique digital mammograms were obtained with tomosynthesis. Computer-aided detection was utilized. Targeted right breast ultrasound was performed.FINDINGS:There are scattered areas of fibroglandular de nsity (category B).On mammogram, biopsy clip marker is seen in the posterior lower breast. Likely post biopsy changes are seen lateral to the biopsy clip marker.On targeted right breast ultrasound, a 0.7 x 0.2 x 0.5 cm circumscribed hypoechoic mass is seen at 9/10 o'clock, 1 cmIMPRESSION: 1. Probable postbiopsy changes on mammogram and probably benign right breast mass on ultrasound.2. Follow up right mammogram and right breast ultrasound in 6 months is recommended, at which point the patient will be due for screening left mammogram. BI-RADS 3 - PROBABLY BENIGN - SHORT INTERVAL FOLLOWUP SUGGESTED.This document has been electronically signed by Ashkan Haywood MD on 09/04/2020 8:04 AM Name Value Range Interpretation Code Description Data Melanie rce(s) Supporting Document(s) ID Date Data Source [id number] 09/04/2020 08:06:09 AM EST [facility] US BREAST INCLUDING AXILLA LIMITED RIGHT [id number] RESULTInterpreted by:TIA Pond DIGITAL MAMMOGRAM WITH COMPUTER-AIDED DETECTION and TARGETED RIGHT BREAST ULTRASOUNDHISTORY: Short-term follow-up after benign right breast biopsy performed at outside facility. Short-term follow-up of mass seen on ultrasound outside facility. The patient reports family history of breast cancer in maternal aunt. The patient reports multiple benign left breast biopsies in the past.National Cancer [employer] risk assessment model:5 year calculated risk: 2.2%Average patient 5 year risk: 2.0%Lifetime risk: 8.6%Average patient lifetime risk: 8.1%COMPARISON: Outside mammograms dating back to 07/15/2015; outside breast ultrasound 04/2020Last Reported Clinical Breast Exam: TodayTECHNIQUE: Craniocaudal and mediolateral oblique digital mammograms were obtained with tomosynthesis. Computer-aided detection was utilized. Targeted right breast ultrasound was performed.FINDINGS:There are scattered areas of fibroglandular density (category B).On mammogram, biopsy clip marker is seen in the posterior lower breast. Likely post biopsy changes are seen lateral to the biopsy clip marker.On targeted right breast ultrasound, a 0.7 x 0.2 x 0.5 cm circumscribed hypoechoic mass is seen at 9/10 o'clock, 1 cmIMPRESSION: 1. Probable postbiopsy changes on mammogram and probably benign right breast mass on ultrasound.2. Follow up right mammogram and right breast ultrasound in 6 months is recommended, at which point the patient will be due for screening left mammogram. BI-RADS 3 - PROBABLY BENIGN - SHORT INTERVAL FOLLOWUP SUGGESTED.This document has been electronically signed by Ashkan Haywood MD on 09/04/2020 8:04 AM Name Value Range Interpretation Code Description Data Melanie rce(s) Supporting Document(s) ID Date Data Source [id number] 08/01/2020 04:00:01 PM EST [facility] Jose [facility]el: 1955Provider: Hemant Munoz: 08/01/2020 Reason For VisitSregina Carnes is here today for Left Knee. Jose Carnes is an established patient here for a new problem. Patient states that she banged her knee on a cupboard door 07/19. In the past week, she began to have a lot of pain, difficulty walking. She ended up calling ambulance and was seen at [facility] in [place]. Ambulating with walker. Was given RX for Oxycodone but not taking. Patient states they are disabled. AssessmentReason for Visit:Left knee pain.Jose is a 64-year-old female disabled was seen by me two years ago for her knees. At that time, I felt it was more her back. She has been reasonably good up until this past [place] when she had a direct injury to her knee and then developed this incapacitating pain. She was worked up in the [place] which included x-rays, CT scan and MRI scan which revealed meniscus pathology but more importantly avascular necrosis in her knee. Her symptoms have backed off significantly and although it hurts, it is tolerated. She uses a wheeled walker primarily balance of balance issues.Past Medical History:Please see intake.Physical Examination: She has diverticulitis and anxiety, Stage 5 kidney disease and is on dialysis, Type 2 diabetes, asthma, history of a CVA and some coronary artery disease, hyperlipidemia, hyperparathyr oidism and sleep apnea. She has atrial flutter and takes aspirin for this. Surgical procedures are listed.She is 5' and she weighs 170 pounds. Patient is alert, awake and oriented, appropriate mood and affect. She ambulates with a walker and has little tiny peg legs. Motor and sensory is intact. She has no edema, pulses are fine and motor and sensory is intact. Motion is quite good, 0- 120, no gross laxity. Her hip moves normally.Impression:Both x-rays, CT and MRI point to avascular necrosis of the distal lateral femoral condyle. She has a degenerative meniscus tear but right now at least symptomatically she is not suffering. She is getting around with a walker which she is used to doing. As long as she remains relatively functional, I recommend not necessarily diving into surgical intervention.If her symptoms become severe and limited her ability to get around, I would entertain doing something. We will leave that up to her and her symptoms. Signatures Electronically signed by : Su Rogers, ; Aug 01 2020 3:48PM EST Electronically signed by : Lucio Munoz M.D.; Aug 01 2020 3:59PM EST Name Value Range Interpretation Code Description Data Melanie rce(s) Supporting Document(s) ID Date Data Source [id number] 07/22/2020 11:02:00 PM EST [facility] Name Value Range Interpretation Code Description Data Melanie rce(s) Supporting Document(s) SARS coronavirus 2 RNA [Presence] in Res piratory specimen by CLARI with probe detection [facility] This lab was ordered by [facility] a nd reported by [facility]. ID Date Data Source [id number] 03/28/2020 08:38:46 AM EDT [facility] Name Value Range Interpretation Code Description Data Melanie rce(s) Supporting Document(s) Progress Note [facility] ZXEGKo1bFdGKMrZy27/QFBcoWXUhx5QcOFecDDd3RDgfPSNoX2KfMKI4yM0xDZT9GVmINnTmQeSqOFRf [facility] [file] ICAgICAgICAgICAgICAgICAgICAgICAgICAgICAgIC AgICAgICAgICAgICAgICAgICAgICAgICAgICAgICAgICAgICAgICAgICANCiAgICAgICAgICAgICAgIC AgICAgICAgICAgICAgICAgICAgICAgICAgICAgICAgICAgICAgICAgICAgICAgICAgICAgICAgICAgIC AgICAgICAgICAgICAgICAgICAgICAgICANCiAgICAg ICAgICAgICAgICAgICAgICAgICAgICAgICAgICAgICAgICAgICAgICAgICAgICAgICAgICAgICAgICAg ICAgICAgICAgICAgICAgICAgICAgICAgICAgICAgICAgICANCiAgICAgICAgICAgICAgICAgICAgICAg ICAgICAgICAgICAgICAgICAgICAgICAgICAgICAgIC AgICAgICAgICAgICAgICAgICAgICAgICAgICAgICAgICAgICAgICAgICAgICANCiAgICAgICAgICAgIC AgICAgICAgICAgICAgICAgICAgICAgICAgICAgICAgICAgICAgICAgICAgICAgICAgICAgICAgICAgIC AgICAgICAgICAgICAgICAgICAgICAgICAgICANCiAg ICAgICAgICAgICAgICAgICAgICAgICAgICAgICAgICAgICAgICAgICAgICAgICAgICAgICAgICAgICAg ICAgICAgICAgICAgICAgICAgICAgICAgICAgICAgICAgICAgICANCiAgICAgICAgICAgICAgICAgICAg ICAgICAgICAgICAgICAgICAgICAgICAgICAgICAgIC AgICAgICAgICAgICAgICAgICAgICAgICAgICAgICAgICAgICAgICAgICAgICAgICANCiAgICAgICAgIC AgICAgICAgICAgICAgICAgICAgICAgICAgICAgICAgICAgICAgICAgICAgICAgICAgICAgICAgICAgIC AgICAgICAgICAgICAgICAgICAgICAgICAgICAgICAN CiAgICAgICAgICAgICAgICAgICAgICAgICAgICAgICAgICAgICAgICAgICAgICAgICAgICAgICAgICAg ICAgICAgICAgICAgICAgICAgICAgICAgICAgICAgICAgICAgICAgICANCiAgICAgICAgICAgICAgICAg ICAgICAgICAgICAgICAgICAgICAgICAgICAgICAgIC AgICAgICAgICAgICAgICAgICAgICAgICAgICAgICAgICAgICAgICAgICAgICAgICAgICANCjw/eHBhY2 svaJBrpjQ5P3isSq0TEr9THP0ok4XjBCTtQGxtbcSpCteROaCiVPTrCjgNRae5XZvrOH8PnCOdY5OqH1 IaNHgcZM8DJZTuJIKijYZdVKQyRKEyCoA2MAQcAXww DB2LoTXbKHbmGBIaAHGzVyCaRBXoINAqMEGzUGYbHYMLFHItMRMsUvDxIDUpVBEmDX4SWQIyX136xwOa Km7NAa8GAqNlEI1rds2LPqAbIHHyErnXUyr6XKeyKC0YnEJxcFWxDtLuTSSRGeIvI4hjy6EqVsTuXJEZ DIozUZ5Cj5KfjSCbZPv+Kb5ZWD2nf0YcDZfpHtMnJR 0cpv0SWCkXBnYcK2IkgMseHRRbt5xfVUMcJV5ztIWpNTS2CYVnshStO2E7fPCvDTLZXYQbxWQ7NyS9Av TbOeAzQKE5YDRbXM5yIVefWM8DLTT2QEzwOVHwILSsH5vOTtYaMSUkEZCbdFhwXU2PHsNjK3GdwtQmjT AzNSAwIFINCj4+SBneibZrQqkMMeO0SVTsh2DxUTe2 BH8LCDLaOJozBN3IVJRcqS4vEZcdTZ9XYgDpVpTbDSFZWdOuU85plGHrWSx3E6SaEiCqPTMtTfnnTFZt PDwvTmFtZXMgWyBdDQogID4+ID4+PSomII1QYJqlsvPmRTShTe8RAYNyYSMoSR5vFTElSMXhY3X3uGcf ZEGIDbUoM8jmroysGH3iJFGmU455dRchylYjKOZ1FB LgWn6VPNClACZ0IWThnJNxJsNsZSMBLYdlES4KgISoTHK6kV8xFRhfIIBwITCmQ3gCYaDauXvyAR66mC wgbnVsbCBdDQo+Tt7IAA7bx5PbTEn7bgArNOhcUGU9ERyvUGCqNKOpEGPyJJC9VNS0JBWIXoOuNGYhDG NhXKbyJOOuCLEcdk0FRIJuVWLdBgI4ZPWwBVXxOIGj WWsjDWAlRBM9CKOzFYTnKOFgYQ9GLvNtMTYqQLCfSXigODBeRZFnat8QUYLkENRnBor0ZCSkZHHkOKXb YGtmNVDrDXA0XBn9DJNmOCQwMS7DUySzTOIiTLD2VjKqOXXqZZVihy6LWPUzAOKfPit6YNKlQXFtRMNq VKssTQLfAQZ2CLCfLTAzVZIbHW3BVlAtEEPxHZLcZm SeSLMfXFLikc0EJQMpPNHaXqThHUIbGBEvUXBqYEhmXIIvATXqCFG0SBQbNFPpTB3RXbMlUBJcJHP0KQ oaOONpHUVnvk9XUEHfJYWhOoZpWQLhRMXxGVUsBErdAIBmNHG2BymzMZLiZYTcZD9GBoKfTPXhUPl9IV avLIHqISCyeu2WXIYqKXAxSUI0FvAqQRXmYLMoHIpc LZTiVSFcHyI1DXMfISIgKH0MEcVuRANeIjF1KdhqUPYaWGQxeq1CQLOiUPOzGVw1HfRsPEAnBXVkNKvu EQHzPNTtCQj8VYVrDIXlYU5CRmZsTKSgCwRiBcEyRWUcVSRczk3BXLSkOWEoAbswCnUvIYDnCSQqFInz WTTjJBX8DXRkGLOsTEQgJK7BGfUoEACvPaPgOFGcJE AyWPPwqk7QMKVoIFTlDUO9KFHnGDWrFREeUOgxCQOjAXY8JeU4PUJgKZBkPV0CMzEeIAYhZuX3QalrNO FsHDTkeb7BANJlYBJeGUz7CMFhKJPpEAGxTIzjRJHsCSH9GIL4CLQrMYOcTL4WLcNpLFPwMzF2IIRbQK CyTZYoiw5MAMThPRLcQyY9LCWrZFYcEWLuHUanUOHr EHB7BgN9WPAkFKFmYV2AHdMkWCRfTsz2XZArGTKtTAAlmm8HCCFdKRXqICJ4JrCbFUAbNPNeVCyjRHMd VJR1MzTaRAMsQWDeGN2XYhToTLYfYbdzJdldBKJgZHEsxp1GzPLgpGcgkb5UYZoDMt8SoBqkNJA9SElu Ui3ifEUtGrBhDAUUDc6GpsVuJIZvDLCDWQcyZXWiLB m2K2PfK3N4EpBtHTL8WMF6PIbaWgQrEWTsG7I1HPyiBsJ8EnBrDzFgZiB4YVP3NjV3QJDeVYCjJGZcGq V8Apy9DJM+ZY2uPMz+Gp5Hx4XyfdB5wpQiWJzyKXGbSc1QNJPKJ3RKUo== ID Date Data Source [id number] 03/21/2020 05:45:19 PM EDT [facility] CT THORAX WITHOUT CONTRAST [id number] RE SULTInterpreted by:Miguelito Soto, Alix Browne MDINDICATION: Follow-up lung nodules and mediastinal adenopathyTECHNIQUE: Axial scans from the thoracic inlet through the domes of the diaphragm were obtained. Coronal and sagittal views were reformatted.No intravenous contrast was given. Automated dose lowering techniques and/or adjustment according to patient size were utilized for this examination.COMPARISON: CT thorax dated 09/02/2017, 04/22/2017; mammogram dated 02/20/2020.FINDINGS: LUNGS AND CENTRAL AIRWAYS: The trachea and central bronchi are patent. A 2.5 mm nodule in the anterior right middle lobe (image 129) is unchanged. A 6 mm ground glass nodule in the right middle lobe is also unchanged. No new nodules are identified. Mild basilar pleural s carring/atelectasis is present.PLEURA: There is no pleural effusion or pneumothorax. MEDIASTINUM AND JOSE D: 0.9 cm short axis and superior diaphragmatic lymph node is unchanged. No other enlarged mediastinal or hilar lymph nodes are identified.HEART AND PERICARDIUM: There is no evidence of cardiomegaly There is no pericardial effusion. Calcifications of the RCA, LAD, LCx are present.VESSELS: The ascending aorta and pulmonary trunk are normal in size. Scattered calcified plaque is seen along the aortic arch, descending aorta, and origins of the great vessels.BONES: There are no suspicious lytic or blastic osseous lesions. Stable mild multilevel degenerative changes are present.CHEST WALL: In the right anterolateral chest wall, posterior and medial to the right breast, there is a 1.2 x 2.9 cm mass with a mean Hounsfield attenuation of 59.3. A fiducial marker is seen in this vicinity. Inferior and medial to this, another rounded mass measuring 1.6 x 3.1 cm identified, with a mean Hounsfield unit attenuation of approximately 63. These may represent hematomas related to recent prior biopsy, however correlation is recommended in this regard. A fiducial marker is seen in the left breast.UPPER ABDOMEN: A calcified granuloma are present in the spleen, measuring up to 7 mm.LINES: There are no indwelling lines, catheters, or foreign bodies. IMPRESSION:1. A 2.5 mm nodule in the anterior right middle lobe and a 6 mm groundglass nodule in the right middle lobe are unchanged. No new nodules are identified.2. A 0.9 cm short axis anterior diaphragmatic lymph node is unchanged. No hilar or mediastinal lymp hadenopathy otherwise.3. There are two discrete mildly hyperattenuating masses in the right breast. These likely represent hematomas related to recent prior biopsies in this area, however correlation is recommended in this regard.This document has been electronically signed by Miguelito Soto MD on 03/21/2020 5:43 PM Name Value Range Interpretation Code Description Data Melanie rce(s) Supporting Document(s) ID Date Data Source [id number] 03/21/2020 01:49:05 PM EDT [facility] Name Value Range Interpretation Code Description Data Melanie rce(s) Supporting Document(s) Progress Note [facility] DALQQh9yWeWRLcCj79/RTUwjOBVmp0UpTFhxKJu1OMuuYWWgY0JmFYR0qF9wRVC1PDuWBzTfEgDaKBT0 lbm [file] [id number]== ID Date Data Source [id number] 03/21/2020 01:48:24 PM EDT [facility] Name Value Range Interpretation Code Description Data Melanie rce(s) Supporting Document(s) Progress Note [facility] WIPOJf2vHeWVWwAh28/KKHcrIFGgq3GaLEnzZAy6HJodLHRoY9OdVCP7fQ7bSRP5ASgMLnKeIgApKNV6 lbm YrMvyWPvOmTPMfQenQHeHqFYrmSubhiYRbIB9ZuLW7SAOvI93fOYLdDNXsR7MnBEN9NQF+Ei1KGQWtwD RrZI5EDbuR3Rxzf+M2Ev5+cL9ZLaJI9yNXQErdsBFvxFzrx0yl2E7r7qKnP49rz0f7utEevkUqK2CLwn XEcPgR6rCHKNfGzMXtu4hEhOAtLwQ67//ISAp3grCM n+oyjDgbLdk//8Ymjl2cejUCVhgwJ2fyA+mh5xdXhZ0WcDAxayZDodQMk8wvpvDa0SSuTDJVT23Je1m+ +xatl5Kozn0dg2ItF5zAljrVyt9ppRJC/7HrAXu/s0/ZIe2nfz0gAhUREK19fnbWRGkvDeKbznKTHYgs QVy2CJCMCuh/kfLOWrjbVaZHd8LgJMWs4GMw9Ty1gR XzOg+MIyeu6qYjHjmZzyp/vpa8puK0fOzTUrlzZ8Bw73l+SulmhkdhUPsimvKTgrjA+nMHEgJVeP5ZOY zfk7KzDLn46NG9iQsv9/A8mQ+sGt59/HaqhUy9RsKodMmvIAJ99lU7DZJ6pOf7T9TUEaQwCI5iF1/[facility] [file] ICAgICAgICAgICAgICAgICAgICAgICAgICAgICAgICAgICAgICAgICAgICAgICAgICAgICAgICAgICAg ICAgICAgICAgICAgICAgICAgICAgICAgICAgICAgICAgICAgICAgDQogICAgICAgICAgICAgICAgICAg ICAgICAgICAgICAgICAgICAgICAgICAgICAgICAgIC AgICAgICAgICAgICAgICAgICAgICAgICAgICAgICAgICAgICAgICAgICAgICAgICAgDQogICAgICAgIC AgICAgICAgICAgICAgICAgICAgICAgICAgICAgICAgICAgICAgICAgICAgICAgICAgICAgICAgICAgIC AgICAgICAgICAgICAgICAgICAgICAgICAgICAgICAg DQogICAgICAgICAgICAgICAgICAgICAgICAgICAgICAgICAgICAgICAgICAgICAgICAgICAgICAgICAg ICAgICAgICAgICAgICAgICAgICAgICAgICAgICAgICAgICAgICAgICAgDQogICAgICAgICAgICAgICAg ICAgICAgICAgICAgICAgICAgICAgICAgICAgICAgIC AgICAgICAgICAgICAgICAgICAgICAgICAgICAgICAgICAgICAgICAgICAgICAgICAgICAgDQogICAgIC AgICAgICAgICAgICAgICAgICAgICAgICAgICAgICAgICAgICAgICAgICAgICAgICAgICAgICAgICAgIC AgICAgICAgICAgICAgICAgICAgICAgICAgICAgICAg ICAgDQogICAgICAgICAgICAgICAgICAgICAgICAgICAgICAgICAgICAgICAgICAgICAgICAgICAgICAg ICAgICAgICAgICAgICAgICAgICAgICAgICAgICAgICAgICAgICAgICAgICAgDQogICAgICAgICAgICAg ICAgICAgICAgICAgICAgICAgICAgICAgICAgICAgIC AgICAgICAgICAgICAgICAgICAgICAgICAgICAgICAgICAgICAgICAgICAgICAgICAgICAgICAgDQogIC AgICAgICAgICAgICAgICAgICAgICAgICAgICAgICAgICAgICAgICAgICAgICAgICAgICAgICAgICAgIC AgICAgICAgICAgICAgICAgICAgICAgICAgICAgICAg ICAgICAgDQogICAgICAgICAgICAgICAgICAgICAgICAgICAgICAgICAgICAgICAgICAgICAgICAgICAg ICWzHFEoFWQmGZXwSZRnDZZmOPDzEQYgZEGnVZQxTLJkUOJxOKUcOKLpWJJbGBIhXWa6T0icXAOjTJGa BR6oKIx2Sm0+NOhFAcUaZUI9guEczL6VQZ9cv7ApLO abLZNig8OpXGl3EU4ARYYgAYsaWJ3ODLjfqi3GEALpWEWxfDWOd5uxNmBiIQR2UHGmBwuqRC2SZBHaY9 keioVvUAQzWFQWML1WRqYcJ4JuwM58AYKHWi6+JNzwprUpKuoJXcK4AVKlb8KxTEk4OO8ZYPJnOspkq3 JeEcFaDNCXDJbmUI0DMRW3RLNrLRGxKv1SVSBvL491 ssYhSW3RYi6BZzDkRR6syt6WAnUxJHMcUelCRrf0PDxmAC7ZvHQmZVwOic8eemLfnlIAg0YjxiJooDKD JWdlBIHuElAwvxPly1DfLRECLM6sTDIxXN5oAz5vZYYkNLYdInEqTILHGP9SWMXwCFTvyKKcEFRyAJLA WL5ZNAozEVS0ZUJellYhxRNjXGiiBW8SRTWmqzTsPG kgMCBSDQo+Ig1BDD9jr2StECumJCIqFR4rsx8RLUsLJnPbI0E7oJKuR0K7SPkaRc5VNMQmCTPlFIcvMZ JBRIvbTH7PQG4unlZ7UO6UjBXyDGNhYYPdkKEfQBi8R18sbOHiKEioDW8XSAY+Bello+Mx9SBMNyGRAlKM TcYyUdSBIVKhEwP3IxH2APx8TqD8FmPL54mTckcySc AGndVE3HSE4qLYKzHANGWQ4XmQIsoF0mjhXrUXOkJQTYDdZuZ84bySBoZVVbMJI4QDWuRr2CKRXeY9Pl doPutGzobtLlAWUmYMBUSP6OYNdounOfsIHjfBvxES94sIxxBW6EFz2BOkZnOD1czn1YqHXkIe1RHTWt Zw9XYVSgWVRiGZGjXJG8BBOdGoYjLXumUDBhBBHmDD F4WEWsUFNtON3DBjXlYMBlXCh7WxWuZSDbSJNghu8ILNVyPBBsGKM0DUQeVEPfYRGsLIykJIZdSQFeRT N5VYYeOAZtGW0QHwJoFBSxCBD7WMReOOVmMGRhfr8QTBAzNAToEro9BaCfQCHrFGMiGLkxFDIlEVToYP J8JGPlWLYrYN2JAuThFEPoIKBuGEAbPWHqYZTkxn9C GBKyYEEiCSX0XWUnAVPpFLZuAShcLROkMBC5EZG1TDRsYNOqCI9XCcIqTFLsBTJrBZNlNPTfBLDcbw9Z DKDxYCDhYYTbSURyZKAhPRJfSHbwZPPqPUU6HOccRAAhGOOqHU0EPaZhQYHtVWjlPKzdJZOsVPWjxz5T DACzSOKbLiZdWBOpCFYhEQPkTJdkAGZnAML3BaP9FL QnYEUiIL6XVfWoLJYmDUv9LVZkHCEcSEPpco8HGKYxDVAoNIAnBBHdKCRlIJVuCHllMVOrDNM2NtTiVF NnIPWnLX6FXwRyJHEiJHk2DPPtZVKsSEWmkp5VOXTnPBDyLLv8LRGyPAYmJKSlRVb9oqPyyQRoSAb5JD 2GP5YqsoHrWiYEKq6Np164JTBgBHOrMf0IK9nbLe8k QUQoPLENXb8LPAc0UvE8RNIpUwK0MJyuLhNiRSLpFst6UbH3LzbtXPH0LWz+JDu8AARjQTGeArg1D6Sb GEYpUNCvIjw9WBGxWPF3BGguLU7vSBLPNl2+FEekfBPjpSyaQKRUXkGfFEX1DAohBRQTPi4K ID Date Data Source [id number] 03/15/2020 10:06:58 AM EDT [facility] [place], [place] [address]Tel# SURGICAL PATHOLOGY REPORTPatient Name:OPAL CARNESOB:1955Received:03/14/2020Accession #:[id number](s) Received: A: Right breast core biopsy with microcalcificationsB: Right breast core biopsy without microcalcificationsClinical Diagnosis and History: Indeterminate calcifications, rule out DCIS. DIAGNOSIS:A) BREAST, RIGHT, CORE BIOPSY FOCAL CHANGES OF FIBROADENOMA WITH ASSOCIATED MICROCALCIFICATIONS. B) BREAST, RIGHT, CORE BIOPSY BENIGN BREAST PARENCH YMA. GROSS DESCRIPTION: Specimen A received in formalin labeled "right breast core biopsy withcalcifications" are multiple irregular pink to yellow portions of softtissue aggregating 3.5 x 2.5 x 0.4 cm which is submitted in toto formicroscopic examination. (1 block) Specimen B received in formalin labeled "right breast core biopsy withoutcalcifications" are multiple irregular portions of yellow to pink breasttissue aggregating 3.5 x 2.5 x 1.0 cm which is submitted in toto formicroscopic examination. (2 blocks) Cold Ischemia Time: < 60 minutes.Fixation Time: 9 hours 20 minutes.pierre/Normaeported: 03/15/2020Electronically Signed Out By David Quevedo M.D. jzwPathology Associates of [place], [place] [address]Technical component performed at [facility], Histopathology, [address] [place] [address], [id number].Reported at [facility], [address] [place] [address], Formerly [facility].This report may include immunohistochemical or in-situ hybridizationresults. Testing was developed and the performance characteristicsdetermined by [facility], as required byCLIA '88. The FDA has determined that approval for specific use is notnecessary for clinical use. The quality of Hematoxylin and Eosin stainsand as applicable, for all immunohistochemical and/or special stains,including positive and negative controls, were reviewed and consideredappropriate.ICD codes: R92.0 D24.1CPT4 codes: A: 61115WZ: 50084B Name Value Range Interpretation Code Description Data Melanie rce(s) Supporting Document(s) ID Date Data Source [id number] 03/16/2020 08:41:00 AM EDT [facility] al DATE OF EXAM: 03/14/2020Addendum BeginsP athology results reported on 03/15/2020: A) breast, right, core biopsy-focal changes of a fibroadenoma with associated microcalcifications. B) breast, right, core biopsy-benign breast parenchyma. These results are consistent with the findings at the time of biopsy. Routine followup with a postbiopsy mammogram in six months is recommended. Professional interpretation performed at [facility] .Addendum EndsRight breast stereotactic biopsy. Clinical History: Suspicious cluster of microcalcifications. Comparison is made to the previous outside mammogram 02/20/2020. The procedure and some of its risks including bleeding, hematoma, pain, inadequate specimen biopsy requiring repeat biopsy or surgical biopsy, were discussed with the patient and she consented. The skin over the selected site was sterilely prepared. Then, 2 cc of 2% lidocaine was infiltrated into the skin. Then, deeper anesthesia was achieved with 4 cc of 2% lidocaine. A small dermatotomy was placed in the skin. The 9 gauge vacuum assisted biopsy needle was inserted through the incision to the level of the lesion following the stereotactic coordinates. Stereotactic images were obtained to confirm accurate positioning of the biopsy probe. Multiple circumferential biopsies were obtained while the biopsy site was lavaged with 2% lidocaine. The final postbiopsy stereotactic images revealed adequate sampling from the region of concern. SPECIMEN RADIOGRAPH: The individual tissue specimens were placed on a wet Telfa pad. Specimen radiograph revealed calcifications present within the sample. METALLIC CLIP LOCALIZATION: A titanium tissue marker was placed in the biopsy bed to ruby the biopsy site. Pressure was held on the biopsy site utilizing sterile gauze until all bleeding subsided. The skin incision was closed with dermal glue. A pressure dressing was placed over the biopsy site. An ice pack was placed over the dressing. Postbio psy instructions were reviewed with the patient by the department nurse. The patient tolerated the procedure well and left the department in excellent condition. IMPRESSION:1. Stereotactic biopsy of calcifications in the right breast. UNILATERAL DIAGNOSTIC DIGITAL MAMMOGRAM with CAD INDICATION: Evaluate tissue marker placement TECHNIQUE: Right craniocaudal and mediolateral oblique digital mammograms. IMPRESSION: The clip appears well-positioned. There is a 2.3 cm hematoma. Professional interpretation performed at Dr[facility] .End of diagnostic report for accession: [id number] Interpreted: David Hurst MDTranscribed: 03/14/2020 12:56 PMSigned: 03/16/2020 08:41 AM David Hurst MD [facility] # [id number] BILL # [id number] [place] Name Value Range Interpretation Code Description Data Melanie rce(s) Supporting Document(s) ID Date Data Source [id number] 03/16/2020 08:41:00 AM EDT [facility] DATE OF EXAM: 03/14/2020Addendum BeginsP athology results reported on 03/15/2020: A) breast, right, core biopsy-focal changes of a fibroadenoma with associated microcalcifications. B) breast, right, core biopsy-benign breast parenchyma. These results are consistent with the findings at the time of biopsy. Routine followup with a postbiopsy mammogram in six months is recommended. Professional interpretation performed at Dr[facility] .Addendum EndsRight breast stereotactic biopsy. Clinical History: Suspicious cluster of microcalcifications. Comparison is made to the previous outside mammogram 02/20/2020. The procedure and some of its risks including bleeding, hematoma, pain, inadequate specimen biopsy requiring repeat biopsy or surgical biopsy, were discussed with the patient and she consented. The skin over the selected site was sterilely prepared. Then, 2 cc of 2% lidocaine was infiltrated into the skin. Then, deeper anesthesia was achieved with 4 cc of 2% lidocaine. A small dermatotomy was placed in the skin. The 9 gauge vacuum assisted biopsy needle was inserted through the incision to the level of the lesion following the stereotactic coordinates. Stereotactic images were obtained to confirm accurate positioning of the biopsy probe. Multiple circumferential biopsies were obtained while the biopsy site was lavaged with 2% lidocaine. The final postbiopsy stereotactic images revealed adequate sampling from the region of concern. SPECIMEN RADIOGRAPH: The individual tissue specimens were placed on a wet Telfa pad. Specimen radiograph revealed calcifications present within the sample. METALLIC CLIP LOCALIZATION: A titanium tissue marker was placed in the biopsy bed to ruby the biopsy site. Pressure was held on the biopsy site utilizing sterile gauze until all bleeding subsided. The skin incision was closed with dermal glue. A pressure dressing was placed over the biopsy site. An ice pack was placed over the dressing. Postbio psy instructions were reviewed with the patient by the department nurse. The patient tolerated the procedure well and left the department in excellent condition. IMPRESSION:1. Stereotactic biopsy of calcifications in the right breast. UNILATERAL DIAGNOSTIC DIGITAL MAMMOGRAM with CAD INDICATION: Evaluate tissue marker placement TECHNIQUE: Right craniocaudal and mediolateral oblique digital mammograms. IMPRESSION: The clip appears well-positioned. There is a 2.3 cm hematoma. Professional interpretation performed at Dr[facility] .End of diagnostic report for accession: [id number] Interpreted: David Hurst MDTranscribed: 03/14/2020 12:56 PMSigned: 03/16/2020 08:41 AM David Hurst MD [facility] ACC # [id number] BILL # [id number] [place] Name Value Range Interpretation Code Description Data Melanie rce(s) Supporting Document(s) ID Date Data Source [id number] 03/12/2020 08:46:36 AM EDT [facility] MAMMO DIGITAL DIAGNOSTIC RIGHT [id number] L RESULTInterpreted by:TIA Pond DIGITAL MAMMOGRAM HISTORY: The patient presented for stereotactic biopsy of the right breast.COMPARISON: Mammogram 02/03/2020TECHNIQUE and FINDINGS: The procedure was explained to the patient and informed consent was obtained.The patient was positioned and repositioned multiple times but the calcifications were not brought satisfactorily into the field of view for accurate stereotactic biopsy.IMPRESSION: 1. The calcifications could not be biopsied due to their posterior location.2. These may be followed with short-term mammogram in 6 months or a surgical biopsy could be performed. BI-RADS 3 - PROBABLY BENIGN - SHORT INTERVAL FOLLOWUP SUGGESTED. 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 estate+f4S3UV/OPcSByv [file] MwywS7wzTeZLg3PZffQB3LVRLKY2ZCMk== ID Date Data Source [id number] 02/06/2020 08:36:07 AM EDT [facility] Name Value Range Interpretation Code Description Data Melanie rce(s) Supporting Document(s) Progress Note [facility] EGXWVx7pAjIRYqNg14/SWChoKVKhl6QpWXftPJk7ZBskHDAqO5OkFFB4aO0vQVV9UEtIDfWrGzOlVlKd lbm [file] private watchman+xuf1wachgS68+5w8z4nWQRLuW4mlj40d7ODt+x0ZtehhUFxnMMXVCa9d6CKSPXXc2ZQrU9J85yLJ yzcZu5Y2rAxXSqMfBX7pGBbwKyZjtGy6k7EJQpYLj/oCUprhfiBP8qHLglhai3s92hIs+Yf17bpMdnsa eRs2NeuOu5y0ItQgXnCVf0x8kUBHtwmZ5FJU1K80h+ Cruibct97DO5zfhX6MQnnu0EHBsZlWnMrpk+JGsqFT8lOG7OrJbjygG7O3BLJR0KtVWNXv9Aa8mZtyk9 YUVdVlardOEO66Jv09NItKElkVsbY9A7qg32p/tve+Cxs4UJiD3ANZvTMU+CD37LaDdNozDxWvrd+cGG WDYd6d8VQl07G3zgvNIGw1QLfMvzENeb5MJvYCC9zh 3npmgs4wB63vO8o66kBPtPItU6vfBFlz9fnEs7vPe8aa7S8aaB04g0vhguVAo/KM6UGUPs87c26TUkV+ DzzPHPwOvXkcOQzPRjNBzyjGZMAWXs1mviVi+pIjhJwIDVMzcT3RPoWWb10A4D7aJuFoY/VWGmPXxLCv nZr9LjQmN5EQyfvniphCRSfwXVKg8fEjugp6BR3njm CPZFyBq1se2MeKPeVeO0VBRog9MIulDyokOKjVR6LDIZNpj2UMZTOYq3VmbJTrgrFRxMCfv+YFZS3FF7 kKk+wnjDngCqayO2LaV8cmuoofynYgxoaEFm1CxUSiq9DP/uy3h+E0SQoQuPhMDIHFE6zGmcuVi7FlHK mloQGAC0RywhGWWC6DsOZ/I4M6zy+e+QHKaxhK5f5/ WkJJPB8q+thania/iuRn1H/eY63fxFpJ4N39mSnYND4t0/RmU7aN/5ezK7vwBe+hsGv0NmAfdtry24jmVhA [file] mpJEmAMsKdEA7GDBk= ID Date Data Source [id number] 02/06/2020 08:30:34 AM T [facility] MAMMO DIGITAL SCREENING BILATERAL 65610M INAL RESULTInterpreted by:Ashkan Haywood MDBILATERAL DIGITAL MAMMOGRAM WITH COMPUTER-AIDED DETECTION and TARGETED RIGHT BREAST ULTRASOUNDHISTORY: The patient reports family history of breast cancer in maternal aunt. The patient reports benign left breast biopsies.National Cancer Warren risk assessment model:5 year calculated risk: 2.2%Average patient 5 year risk: 2.0%Lifetime risk: 8.6%Average patient lifetime risk: 8.1%COMPARISON: Mammograms dating back to 07/11/2013Last Reported Clinical Breast Exam: TodayTECHNIQUE: Craniocaudal and mediolateral oblique digital mammograms were obtained with tomosynthesis. Computer-aided detection was utilized. A targeted right breast ultrasound was performed.FINDINGS:The breasts are almost entirely fatty (category A).On mammogram, grouped round and amorphous calcifications are seen in the lower outer breast, 12 cm from the nipple. Subcentimeter circumscribed masses are seen in the lower outer right breast. Biopsy clip markers are seen in the left breast.On targeted right breast ultrasound, likely complicated cysts measuring up to 0.8 x 0.2 x 0.5 cm at 8-9/10 o'clock.IMPRESSION: 1. Grouped calcifications in the right breast. A stereotactic biopsy is recommended for further evaluation.2. Probable complicated cysts in the right breast on ultrasound. Short-term follow-up targeted right breast ultrasound in 6 months is recommended.BI-RADS 4 - SUSPICIOUS ABNORMALITY, BIOPSY SHOULD BE CONSIDERED.These results were discussed with the patient shortly after the exam was performed.This document has been electronically signed by Ashkan Haywood MD on 02/06/2020 8:28 AM Name Value Range Interpretation Code Description Data Melanie rce(s) Supporting Document(s) ID Date Data Source [id number] 02/06/2020 08:30:34 AM [facility] US BREAST INCLUDING AXILLA LIMITED RIGHT [id number] RESULTInterpreted by:Ashkan Haywood MDBILATERAL DIGITAL MAMMOGRAM WITH COMPUTER-AIDED DETECTION and TARGETED RIGHT BREAST ULTRASOUNDHISTORY: The patient reports family history of breast cancer in maternal aunt. The patient reports benign left breast biopsies.National Cancer Warren risk assessment model:5 year calculated risk: 2.2%Average patient 5 year risk: 2.0%Lifetime risk: 8.6%Average patient lifetime risk: 8.1%COMPARISON: Mammograms dating back to 07/11/2013Last Reported Clinical Breast Exam: TodayTECHNIQUE: Craniocaudal and mediolateral oblique digital mammograms were obtained with tomosynthesis. Computer-aided detection was utilized. A targeted right breast ultrasound was performed.FINDINGS:The breasts are almost entirely fatty (category A).On mammogram, grouped round and amorphous calcifications are seen in the lower outer breast, 12 cm from the nipple. Subcentimeter circumscribed masses are seen in the lower outer right breast. Biopsy clip markers are seen in the left breast.On targeted right breast ultrasound, likely complicated cysts measuring up to 0.8 x 0.2 x 0.5 cm at 8- 9/10 o'clock.IMPRESSION: 1. Grouped calcifications in the right breast. A stereotactic biopsy is recommended for further evaluation.2. Probable complicated cysts in the right breast on ultrasound. Short-term follow-up targeted right breast ultrasound in 6 months is recommended.BI-RADS 4 - SUSPICIOUS ABNORMALITY, BIOPSY SHOULD BE CONSIDERED.These results were discussed with the patient shortly after the exam was performed.This document has been electronically signed by Ashkan Haywood MD on 02/06/2020 8:28 AM Name Value Range Interpretation Code Description Data Melanie rce(s) Supporting Document(s) ID Date Data Source [id number] 09/19/2019 06:11:00 AM EST [facility] ([facility] ) Name Value Range Interpretation Code Description Data [facility] rce(s) Supporting Document(s) Microscopic observation [Identifier] in Unspecified specimen by Non- gynecological cytology method (SEE NOTE) [facility] ([facility]) SPECIMEN: FNA Left lower pole thyroid nodule Specimen received in Cytolyt SPECIMEN ADEQUACY: Satisfactory for evaluation CATEGORIZATION: Benign DESCRIPTIONS: Groups of follicular cells noted, some exhbiting hurthle cell changes. The background consists of rare macrophages and few lymphocytes. COMMENTS: 09/20/2019 - 0849 Signed CORNELIA JOY(ASCP) 09/20/2019 0849 (Prelim) Signed Rl Slade MD 09/20/2019 1638 ID Date Data Source [id number] 08/04/2019 04:58:28 PM [facility] Name Value Range Interpretation Code Description Data [facility] rce(s) Supporting Document(s) [facility] ISBPFv9aPgARHkZl63/UNIyiHRRvw4ZpKVjtOAl9GGelQYOeO2OvMAB7tD3zSQE0RDgDExIwCaJfJHN3 [facility] [file] vulcan crewmember+AAa6jLQ9zhWp+ygdET+cHcqajTuL4cMfdp3mQEx5nbBRLbEFi/MGzcVyzW/sOenicJgjoNAW2xrc/ [file] E+DQogICAgICAgICAgICAgICAgICAgICAgICAgICAgICAgICAgICAgICAgICAgICAgICAgICAgICAgIC AgICAgICAgICAgICAgICAgICAgICAgICAgICAgICAg ICAgICAgICAgICAgDQogICAgICAgICAgICAgICAgICAgICAgICAgICAgICAgICAgICAgICAgICAgICAg ICAgICAgICAgICAgICAgICAgICAgICAgICAgICAgICAgICAgICAgICAgICAgICAgICAgICAgDQogICAg ICAgICAgICAgICAgICAgICAgICAgICAgICAgICAgIC AgICAgICAgICAgICAgICAgICAgICAgICAgICAgICAgICAgICAgICAgICAgICAgICAgICAgICAgICAgIC AgICAgDQogICAgICAgICAgICAgICAgICAgICAgICAgICAgICAgICAgICAgICAgICAgICAgICAgICAgIC AgICAgICAgICAgICAgICAgICAgICAgICAgICAgICAg ICAgICAgICAgICAgICAgDQogICAgICAgICAgICAgICAgICAgICAgICAgICAgICAgICAgICAgICAgICAg ICAgICAgICAgICAgICAgICAgICAgICAgICAgICAgICAgICAgICAgICAgICAgICAgICAgICAgICAgDQog ICAgICAgICAgICAgICAgICAgICAgICAgICAgICAgIC AgICAgICAgICAgICAgICAgICAgICAgICAgICAgICAgICAgICAgICAgICAgICAgICAgICAgICAgICAgIC AgICAgICAgDQogICAgICAgICAgICAgICAgICAgICAgICAgICAgICAgICAgICAgICAgICAgICAgICAgIC AgICAgICAgICAgICAgICAgICAgICAgICAgICAgICAg ICAgICAgICAgICAgICAgICAgDQogICAgICAgICAgICAgICAgICAgICAgICAgICAgICAgICAgICAgICAg ICAgICAgICAgICAgICAgICAgICAgICAgICAgICAgICAgICAgICAgICAgICAgICAgICAgICAgICAgICAg DQogICAgICAgICAgICAgICAgICAgICAgICAgICAgIC AgICAgICAgICAgICAgICAgICAgICAgICAgICAgICAgICAgICAgICAgICAgICAgICAgICAgICAgICAgIC AgICAgICAgICAgDQogICAgICAgICAgICAgICAgICAgICAgICAgICAgICAgICAgICAgICAgICAgICAgIC AgICAgICAgICAgICAgICAgICAgICAgICAgICAgICAg ROJrHPQoKYKmKSGuIEEpPYNlCYSgCXr8W8jyREZyHCPsHD8qXAg3Qn7+LViRYmDdMPH1epAwsL0AMT3y f1JsUOxhVCRpv8VoDXt2KT5JORDdNAggTJ9NOMtgvq9MULDhPGVvbJZWe2mvHzXzXKE8LPQkPqdqKG8B ABJzH4bsrwStELWoFJYYSXifRECIQQxnEFABBAWxKL DxXkPqYoSuYNQaOA9EQSQsO478pnUiTF2XMs0VCxMdZH5ugl9MXkJjVVFyIviVPyh4CJmdDO6UaVTffP SrOtDaYNXXSmBxS8hln1MrDgXfNDYQOTbeGP1Vx5TebIAdNZm+Nc9GQZ5yi8VyZEyjKxKnHR4www4QYX sMYsEsY5FpeWysAYNaniR0hREwRGF0LSCrYB6mr82b NIKRcSwreD2ks98dDI6TFEY5LTBrJZ0iDOFjKTE9AcPwTBUUWP8WHZSlGMMgnYVnPBEbWGAXPM1VJHsl ZTL3UELoblZmcQJvYGigKZ1CXYDjumHyIfOhSRCCXSk+Ab8QXF4ie1QmLDvyWwFgWK9nmp1OBAhYTmTz X8I2bPUeX0O1CRqdGo8VCWTxTSGpSlSvJTEFOWloDE 3PJL8ktvU5TP8FiQXzPOMyRDYyvQRzYPq5D37uqYYrDEfxFB3QFYL+Bello+Hw3OFFDrJMNnZNBsXnDuSN KPTjScS3FgB7ZLy6HuP8XqML53lTbvhnOmPGxlFL2PIE7xHBGyGISGFW9KwNRueZ3bvuPyZKEaIFWXEu WvI77utJJtWLJwSWJ9LORnUx5LAQGmT5JjlpZajIim dhNdWJMfPAGNDX8PPWykwcJmhPTozFriBU55dSymFW8XFh9EDiRnKY5sdl0RrRCmXy3TTCXhJW3KYEXa AZQnANFdLZB4ABXxIfPzBHjzIYUpLBMqKUJ1BUMvYEPiJG9TPwNqIFYaLJB0YRMtDTZtFLVivz9XMFRk QQR9VmX4OZCuYYOyVFFvVBqmNHSpEXZbSXK1KPXvNG PhZO4MDpEcTLRiLJIeFCyeKFTrMNGrqj9KQYYnXORuGgHcBkRuDRCuNZKiULhkRXQnHDA1XAOzEDHhQF OoID9GPnToSILsROCsVqXzBVKiIWFtxp8OKKFpXBBgPOW5MQSqRQXxFXDfEMpbDJXeVIE3WSUjRJWfFC PkEV0JKwZmGZNjMDZ0QJZgNNHaPZDxoz2SLSHsNVMh MNBiHbHsMJEdLUUxJPnxDOUnYOHnKry1VORzMLHhGN4OSqFhBTVtQCY6ZCUyBMDeRVBouu0JHKUxWJRn Uac8HjJdTYKqPELkVHmtXECpOVBiOXNoGVSwTMToOR6XNdZvNDLnASQuIDHvCPLkUUMbwc3YVFNvWOBm UVLeErXrFTJvPPNvXWkwZPVtVVD1FPN9KOFgMAFtHX 2XUeCuUDCyBZI4BMZnKGZmWSIlch6CWLKiBWKyCER7DdOeLYTbSNPsIBzxGVFnHBM8LoU9KJSnOIKgQC 9TAcLqHAMoBMT3UtSnSYRyMGFqgw9KZOGmGFFoVsWpWyCuDUAgDSUsTUlvFVAiGQP7IjB3TKBgXZPcUM 6GBhWfAGNxPkb0BNDgISDpWXDxmr3ZAZToODUbPJI4 QrYeXITsWVTxQTukHGVfLOS3KoS2BIGoEFRwCS6SXtTuSBMpKtyuNbIhAKAdHHInla1CHPQyWHMgFVQ5 UWBtTOSiZHWrEUieSQZkWVE6QKH1WMApHALvBL2ILzYeJIWuNpl0XLnuZEOsIHOfjp1YMMIaYDL3OVQ6 THAaATJxDOKoDQxwVYBgDRUlRVP4UDEyDZKdSL8TBg IaHDSzXSZ9MSrdMVQmQJJlio3MIHVaTKN9HvU4QDQuBRBfCTBtREgqPDSgNGHoMaZ0HEThMCQdBJ0OLl OdKKvqLEPCTia8GCnzL7q0MWTuPN1OO0Rpo1GjLplnDQJCNPrwGP5hujHlCSCoHv6JN6sQKbz0FiG9BX KvZlB0YLIzRZR3ChP9OVayPzFzPcCoYtMxOV5nAYbs EWScEZDwIat2GXN3UGt8HMG3BBR5YbLhPCIkLKN4NzJxOC5GBx8TKmY3IHN3oNBtFu8FSBF2MBDWVeIh ZI3SBDo= ID Date Data Source [id number] 08/03/2019 06:59:48 PM [facility] CT HEAD WITHOUT CONTRAST [id number] RESU LTInterpreted by:Jimena Plunkett MDINDICATION: Transferred from [facility] with worsening intracranial bleed after falling several weeks ago..TECHNIQUE: Contiguous axial CT images of the head from the base of the skull to the vertex without IV contrast. Automated dose lowering techniques and/or adjustment according to patient size were utilized for this exam.COMPARISON: CT head from [facility] dated 08/03/2019.FINDINGS: High density material within the occipital horn of the right lateral ventricle most likely represents calcifi cation. No acute intracranial hemorrhage is identified. No extra axial collections.Ventricles are normal in size and unchanged in configuration compared with prior study. Basal cisterns are patent.There is a hypodense tract through the left frontal lobe to the anterior horn of the left lateral ventricle which likely represents the tract of a prior EVD, as evidenced by a healed rounded defect of the left frontal calvarium. No evidence of edema or mass effect.Paranasal sinuses are clear. Mastoid air cells are clear bilaterally.No depressed calvarial fracture. No evidence of scalp swelling.IMPRESSION:1. High density material within the occipital horn of the right lateral ventricle likely represents calcifications. No evidence of intracranial hemorrhage.2. Additional chronic findings as described.Findings were discussed with Dr. Martinez by Dr. Ocampo via phone at 1820 on 08/03/2019.This document has been electronically signed by Charlene Salinas MD on 08/03/2019 6:57 PM Name Value Range Interpretation Code Description Data Melanie rce(s) Supporting Document(s) ID Date Data Source [id number] 08/03/2019 06:57:26 PM EST [facility] Name Value Range Interpretation Code Description Data [facility] rce(s) Supporting Document(s) ED Provider Note [facility] RKCKLg7dHxGALpEi45/YJVlbUCHmx8CtPMmtBIx7TZhkKTYeG7RlWIK7yC3vUCO2RJoOTbPxFxRvLLL3 lbm [file] 6QAL4wjuY2ET5XmKLeEYVyYDBfdCYuANo3D05ndNPyUNpeGB0ACGG+Bello+Vl6CSPUoSUNyHHQrQqSiXC XYKuSxC7SxM2QWe6UfB9PiDZ52uSxyqqMpINfpFH8O IJ4dUKJnPRXYGT1AzCNofU3yfcR7LoBbCAYVBgGaK50rcTSbCLKmBGF1RIUdGs5RWNGnN8HadmEtaKmv bpCxMPVxCEUOLE3WGBgxsxSmnQNldAttAB75lYwlYV9AZg9WXrIoIV8gdx1AgXVcEp2QMTU4Hm3WXZHc YJJkNRPdAMS6WCYhDnTbCOhkVKMhBUCzHAV8ZJBjRH PqRP7EGqKiBGKvISRjAiUoHWWmEMHqfa9FTKDyLBC9AtQiNNPhDYSlUVUwQDxeIMOgCUGgVPE9FRUwJM BcGJ2GOsObXMWuYTPxRnYiIDJrZCAuik4PKXIxMRZiTsTwACGePYHvODZhOWokIZUfNUL1QeifPTViYW WmYA1MVgWrPDRtQJR1WcctHYSuPCWavn9XSCXyIZVa WQS9NWUrVILoGTVfXOzwZDTcPUW5HDp9EDFpHGMwFA9CJkDtLHSqVDP2IrYaNGXnCZThqk2DZNYeCQTf QBl9UyQwAQNvNZLsWNbjXADhNHG6RyO9PPOzEFYbLF6DTtQfEUTkGCI1JFZxKMCsRHOaxi0DUYTySYBt HrP5VQFbNPZfJJOiWZtzUQGyEHH0DGG3SKSrMNIvYD 6QMvNjJSBqTzYhXJMnSVKaDJWpyy7DWBVcQHVbHSX9HYNfPQQvUWPhTChhROCeCSDnKTLhPAZdZHRjJL 4SOyNiCTLzQeIqViMjEDIbGUQhab7SDDErZVGlBvJ9UDQuRSTqHRMxRLgnOIKuAXS9AxN8UJKzDAKjHW 5SEnRpZOPwVmaeZZUrLCBjJDItec9MEIRhHTMhBWK6 ZIVqEQKbFJTtUAmbUPKfYUIpATSyUNJkFAKeBT9MTtIfWSYsRmO9QOosAUHoRUDrfo6RCOVkRNEsRzX6 VZJgCQCfHERsYNdkLJQkCUClRkLvBWCkPTElBJ7QDcGbFEXpPxF4EdRgWPJiPESuyn0NXZZfFTEdGAyt YmZbXDEdRHPwPZxrWOBqCSW5LQCpBVGhIQIiNQ1DWu LyEPZtUfY0KBtfUCHfAAGkze0WAOOkUXPgFzI7RSFjUKGtTYVePRrqISJuNLV9KiK7TAUmYPXdUA9JZr GiWCDlVZb6OyEdPSOpDJObxj6QJJJiLCH7JSI3QaDzKKHiHLJcSAipEQXsZOZ7QwWmQVLmIHSxMD1AQq NrRJBkSCq5FXJvFNAoEFLetd3DVBWcIBO9OAL1KsDe WMVuPMKeHAsnEOLbFTX0GFvaVVUoQTUwAO5GUlSnJNCxLUq9OkqxPEMfWQDqxv3ZUCNxCEA3SKl6RaIp QEQaROEaAIgeFWCsKULbETWoINZsTMBbZG5LBxZqVRVlAKIiRDQdXJCiPEOgnk2NZAHoUVM9JBX8NrZa FQEoLCRuMHatWFIoJRVpFoe9HSCiKYEdFH9EVpAfQY AyRXOrMWcjYZRwLZXbah5JMUAnGGV7JiG9QTRfAMIrFKZpUGwbYZXxRJPoDNH2ANAsPTZzKP4YFiMcEZ GdQPV2TeAxLGBdHWLzcw6OFJKeLNK1Ujg4SYUmEDLuAXVaRNd6pbWcfBKoTRe8UL0CJ9UgnzCrEJSUZm 6Rb060KZOqBIZtWk1LS8hdKw0kKRBwUFNGDt3VVXu5 HVCcC3PlICa9FUGnRJPkKuL0XCExEzK5CbNpUUK3TuN+RNckBzUlVmAwFEx1YRDfECDxEjkdJsFdHjBy ZlXoFVIxZZ1eBYAPSg7+HBcehTVakUydIJAUXgC5DMV2VMkhQKUMQs2X ID Date Data Source [id number] 08/03/2019 06:53:12 PM [facility] CT LUMBAR SPINE WITHOUT CONTRAST [id number] NAL RESULTInterpreted by:Jimena Plunkett MDINDICATION: 63-year-old female with lower back pain and subjective leg weakness, fell several weeks ago as well as again this morning.TECHNIQUE: Axial images of the lumbar spine were obtained by multidetector row CT without administration of intravenous contrast. Coronal and sagittal reformatted images were then obtained using the axial source data. Automated dose lowering techniques and/or adjustment according to patient size were utilized for this exam.COMPARISON: None.FINDINGS: No acute fracture or traumatic listhesis. Vertebral body heights are normal. There is moderate loss of intervertebral disc height at L4/5 and moderate to severe loss of intervertebral disc height at L5/S1. The remaining intervertebral disc heights are normal. No significant spondylolisthesis. There are multilevel degenerative changes including anterior osteophytosis and facet arthropathy, worst at the lower lumbar levels. There is vacuum disc phenomenon at L4/5. There are degenerative endplate changes at the inferior plate of L3 and at both endplates of L5/S1. There is a prominent Schmorl's node of the superior aspect of the L4 vertebral body. There is a approximately 1.4 cm lesion of the right/inferior portion of the L1 vertebral body which exhibits a [id number]-lunfei appearance and based on comparison with MR spine dated 06/05/2009 likely represents a vertebral hemangioma.IMPRESSION: 1. No acute fracture or traumatic listhesis.2. Degenerative changes as described.3. Osseous lesion of the L1 vertebral body compatible with a vertebral hemangioma.This document has been electronically signed by Charlene Salinas MD on 08/03/2019 6:51 PM Name Value Range Interpretation Code Description Data Melanie rce(s) Supporting Document(s) ID Date Data Source [id number] 08/03/2019 04:20:39 PM [facility] Name Value Range Interpretation Code Description Data [facility] rce(s) Supporting Document(s) Leukocytes [#/volume] in Blood by Automated count 5.9 10*3/uL 4-10 [facility] Erythrocytes [#/volume] in Blood by Automated count 3.72 10*6/uL 4.1- 5.3 L [facility] Hemoglobin [Mass/volume] in Blood 12.3 g/dL 11.5-15.5 [facility] Hematocrit [Volume Fraction] of Blood by Automated count 36.5 % 3 6-45 [facility] Erythrocyte mean corpuscular volume [Entitic volume] by Auto mated count 98.1 fL 80-96 H [facility] Erythrocyte mean corpuscular hemoglobin [Entitic mass] by Automated count 33.1 pg 27-33 H [facility] Erythrocyte mean corpuscular hemoglobin concentration [Mass/volume] by Automated count 33.7 g/dL 32.0-[facility] width [Ratio] by Automated count 14.3 % 11.5-14.5 [facility] Platelets [#/volume] in Blood by Automated count 95 10*3/uL 150-400 L [facility] Differential cell count method - Blood [facility] Neutrophils/100 leukocytes in Blood by Automated count 62 % [facility] Lymphocytes/100 leukocytes in Blood by Automated count 24 % [facility] Monocytes/100 leukocytes in Blood by Automated count 10 % [facility] Eosinophils/100 leukocytes in Blood by Automated count 3 % [facility] Basophils/100 leukocytes in Blood by Automated count 1 % [facility] Neutrophils [#/volume] in Blood by Automated count 3.71 10*3/uL 1.8-7 .0 [facility] Lymphocytes [#/volume] in Blood by Automated count 1.40 10*3/uL 1.2-4 .0 [facility] Monocytes [#/volume] in Blood by Automated count 0.62 10*3/uL 0-0.8 [facility] Eosinophils [#/volume] in Blood by Automated count 0.17 10*3/uL 0-0.5 [facility] Basophils [#/volume] in Blood by Automated count 0.04 10*3/uL 0-0.2 [facility] Nucleated erythrocytes/100 leukocytes [Ratio] in Blood by Automated count 0 /100{WBCs} 0-0 [facility] ID Date Data Source [id number] 08/03/2019 04:36:07 PM [facility] Value Range Interpretation Code Description Data Melanie rce(s) Supporting Document(s) Prothrombin time (PT) 12.9 s 12.5-14.9 [facility] INR in Platelet poor plasma by Coagulation assay 0.94 [facility] Routine intensity oral anticoagulation I NR is typically 2.0-3.0. Target INR must be clinically individualized. ID Date Data Source [id number] 08/03/2019 04:36:07 PM [facility] Value Range Interpretation Code Description Data Melanie rce(s) Supporting Document(s) aPTT in Platelet poor plasma by Coagulation assay 30.0 s 24.0-34. 0 [facility] ID Date Data Source [id number] 08/03/2019 04:49:30 PM [facility] Value Range Interpretation Code Description Data Melanie rce(s) Supporting Document(s) Bicarbonate [Moles/volume] in Serum 25 mmol/L 22-29 [facility] Chloride [Moles/volume] in Serum or Plasma 97 mmol/L 98-107 L [facility] Creatinine [Mass/volume] in Serum or Plasma 5.83 mg/dL 0.50-0.90 H [facility] Glucose [Mass/volume] in Serum or Plasma 85 mg/dL 70-140 [facility] Potassium [Moles/volume] in Serum or Plasma 5.0 mmol/L 3.4-5.1 [facility] Hemolyzed Sodium [Moles/volume] in Serum or Plasma 139 mmol/L 136-145 [facility] Urea nitrogen [Mass/volume] in Serum or Plasma 28 mg/dL 8-23 H [facility] Anion gap 3 in Serum or Plasma 17 mmol/L 8-15 H [facility] Osmolality of Serum or Plasma by calculation 293 mosm/kg 275-300 [facility] Creatinine/Urea nitrogen [Mass Ratio] in Serum or Plasma 5 [facility] Calcium [Mass/volume] in Serum or Plasma 9.3 mg/dL 8.8-10.2 [facility] Glomerular filtration rate/1.73 sq M pre dicted among non-blacks [Volume Rate/Area] in Serum or Plasma by Creatinine-based formula (MDRD) 7 mL/min/1.73m2 >60 L [facility] Glomerular filtration rate/1.73 sq M pre dicted among blacks [Volume Rate/Area] in Serum or Plasma by Creatinine-based formula (MDRD) 8 mL/min/1.73m2 >60 L [facility] Procedure Social History Code Duration Value Status Description Data Source(s ) Alcohol intake 08/31/2020 12:00:00 AM EST Current non-d marisa of alcohol (finding) completed Current non-drinker of alcohol (finding) [facility] Tobacco use and exposure 08/31/2020 12:00:00 AM EST Never used co mpleted Never used [facility] Cigarette pack-years 08/31/2020 12:00:00 AM EST UNK completed [facility] Cigarettes smoked current (pack per day) - Reported 08/31/19 12:00:00 AM EST UNK completed [facility] Smoking 08/31/2020 12:00:00 AM EST Former smoker completed Former smoker [facility] Smoking 08/03/2020 12:00:00 AM EST Former Smoker completed Former Smoker eCW1 ([facility]) Alcohol intake 03/21/2020 12:00:00 AM EDT Current non-d marisa of alcohol (finding) completed Current non-drinker of alcohol (finding) [facility] Alcohol intake 02/20/2020 12:00:00 AM EDT Current non-d marisa of alcohol (finding) completed Current non-drinker of alcohol (finding) [facility] Cigarette pack-years 02/20/2020 12:00:00 AM EDT UNK completed [facility] Cigarettes smoked current (pack per day) - Reported 02/20/20 20 12:00:00 AM EDT UNK completed [facility] Smoking 02/20/2020 12:00:00 AM EDT Former smoker completed Former smoker [facility] Smoking 02/09/2020 12:00:00 AM EDT Former Smoker completed Former Smoker eCW1 ([facility]) Smoking 02/09/2020 12:00:00 AM EDT Former Smoker completed Former Smoker eCW1 ([facility]) Smoking 02/09/2020 12:00:00 AM EDT Former Smoker completed Former Smoker eCW1 ([facility]) Smoking 02/09/2020 12:00:00 AM EDT Former Smoker completed Former Smoker eCW1 ([facility]) Smoking 02/09/2020 12:00:00 AM EDT Former Smoker completed Former Smoker eCW1 ([facility]) Smoking 02/09/2020 12:00:00 AM EDT Former Smoker completed Former Smoker eCW1 ([facility]) Smoking 02/09/2020 12:00:00 AM EDT Former Smoker completed Former Smoker eCW1 ([facility]) Smoking 02/09/2020 12:00:00 AM EDT Former Smoker completed Former Smoker eCW1 ([facility]) Smoking 02/09/2020 12:00:00 AM EDT Former Smoker completed Former Smoker eCW1 ([facility]) Smoking 02/09/2020 12:00:00 AM EDT Former Smoker completed Former Smoker eCW1 ([facility]) Smoking 02/09/2020 12:00:00 AM EDT Former Smoker completed Former Smoker eCW1 ([facility]) Alcohol intake 02/03/2020 12:00:00 AM EDT Current non-d marisa of alcohol (finding) completed Current non-drinker of alcohol (finding) [facility] Cigarette pack-years 02/03/2020 12:00:00 AM EDT UNK completed [facility] Cigarettes smoked current (pack per day) - Reported 02/03/20 12:00:00 AM EDT UNK completed [facility] Smoking 02/03/2020 12:00:00 AM EDT Former smoker completed Former smoker [facility] Smoking 09/25/2019 12:00:00 AM EST Former Smoker completed Former Smoker eCW1 ([facility]) Smoking 09/25/2019 12:00:00 AM EST Former Smoker completed Former Smoker eCW1 ([facility]) Alcohol intake 08/03/2019 12:00:00 AM EST Current non-d marisa of alcohol (finding) completed Current non-drinker of alcohol (finding) [facility] Cigarette pack-years 08/03/2019 12:00:00 AM EST UNK [facility] Cigarettes smoked current (pack per day) - Reported 08/03/19 12:00:00 AM EST UNK completed [facility] Smoking 08/03/2019 12:00:00 AM EST Former smoker completed Former smoker [facility] Vital Signs ID Date Data Source UNK Name Value Range Interpretation Code Description Data Source(s) Oxygen saturation in Arterial blood by Pulse oximetry 91 % 91 % [facility] ([facility]) Body mass index (BMI) [Ratio] 34.4 kg/m2 34.4 k g/m2 [facility] ([facility]) Body weight 176.12 [lb_av] 176.12 [lb_av] [facility] T ([facility]) Body height 60 [in_i] 60 [in_i] [facility] ([facility]) 5'0" Heart rate 61 /min 61 /min [facility] ([facility]) Diastolic blood pressure 64 mm[Hg] 64 mm[Hg] [facility] ([facility]) Systolic blood pressure 110 mm[Hg] 110 mm[Hg] [facility] Oxygen saturation in Arterial blood by Pulse oximetry 96 % 96 % [facility] ([facility]) Body mass index (BMI) [Ratio] 33.7 kg/m2 33.7 k g/m2 [facility] ([facility]) Body weight 172.44 [lb_av] 172.44 [lb_av] MEDEN T ([facility]) Body height 60 [in_i] 60 [in_i] MEDENT ([facility]) 5'0" Heart rate 100 /min 100 /min [facility] ([facility]) Diastolic blood pressure 86 mm[Hg] 86 mm[Hg] [facility]ENT ([facility]) Systolic blood pressure 126 mm[Hg] 126 mm[Hg] M EDENT ([facility]) Oxygen saturation in Arterial blood by Pulse oximetry 97 % 97 % [facility] ([facility]) Body mass index (BMI) [Ratio] 33.7 kg/m2 33.7 k g/m2 [facility] ([facility]) Body weight 172.50 [lb_av] 172.50 [lb_av] MEDEN T ([facility]) Body height 60 [in_i] 60 [in_i] [facility] ([facility]) 5'0" Heart rate 99 /min 99 /min [facility] ([facility]) Diastolic blood pressure 62 mm[Hg] 62 mm[Hg] [facility] ([facility]) Systolic blood pressure 136 mm[Hg] 136 mm[Hg] M EDENT ([facility]) Diastolic blood pressure 70 mm[Hg] 70 mm[Hg] eCW1 ([facility]) Systolic blood pressure 118 mm[Hg] 118 mm[Hg] e CW1 ([facility]) Body temperature 97.1 [degF] 97.1 [degF] eCW1 ( [facility]) Respiratory rate 18 /min 18 /min eCW1 ([facility]) Heart rate 128 /min 128 /min eCW1 ([facility]) Body mass index (BMI) [Ratio] 32.33 kg/m2 32.33 kg/m2 eCW1 ([facility]) Body height 62 [in_us] 62 [in_us] eCW1 ([facility]) Body weight Measured 176.8 [lb_av] 176.8 [lb_av ] eCW1 ([facility]) Diastolic blood pressure 76 mm[Hg] 76 mm[Hg] eCW1 ([facility]) Systolic blood pressure 122 mm[Hg] 122 mm[Hg] e CW1 ([facility]) Body temperature 97.2 [degF] 97.2 [degF] eCW1 ( [facility]) Respiratory rate 20 /min 20 /min eCW1 ([facility]) Heart rate 116 /min 116 /min eCW1 ([facility]) Body mass index (BMI) [Ratio] 31.16 kg/m2 31.16 kg/m2 eCW1 ([facility]) Body height 62 [in_us] 62 [in_us] eCW1 ([facility]) Body weight Measured 170.4 [lb_av] 170.4 [lb_av ] eCW1 ([facility]) ID Date Data Source [id number] 08/31/2020 11:51:39 AM [facility] Name Value Range Interpretation Code Description Data Source(s) PREFERRED NAME Maryjo Maryjo [facility] ID Date Data Source [id number] 08/31/2020 11:51:23 AM [facility] Name Value Range Interpretation Code Description Data Source(s) PREFERRED NAME Maryjo Maryjo [facility] ID Date Data Source [id number] 08/31/2020 11:51:23 AM [facility] Name Value Range Interpretation Code Description Data Source(s) PREFERRED NAME Maryjo Maryjo [facility] ID Date Data Source [id number] 09/04/2020 08:21:24 AM [facility] Name Value Range Interpretation Code Description Data Source(s) WEIGHT RECORDED 176 lb 176 lb [facility] Body height Measured 60 in 60 in [facility] PREFERRED NAME Maryjo Maryjo [facility] PREFERRED NAME Maryjo Maryjo [facility] ID Date Data Source [id number] 09/04/2020 08:06:09 AM [facility] Name Value Range Interpretation Code Description Data Source(s) PREFERRED NAME Maryjo Maryjo [facility] PREFERRED NAME Maryjo Maryjo [facility] ID Date Data Source [id number] 09/04/2020 08:06:09 AM EST [facility] Name Value Range Interpretation Code Description Data Source(s) PREFERRED NAME Maryjo Maryjo [facility] PREFERRED NAME Maryjo Sibley [facility] ID Date Data Source [id number] 03/28/2020 08:38:46 AM EDT [facility] Name Value Range Interpretation Code Description Data Source(s) WEIGHT RECORDED 183 lb 183 lb [facility] Body height Measured 60 in 60 in [facility] ID Date Data Source [id number] 03/02/2020 04:34:10 PM EDT [facility] Name Value Range Interpretation Code Description Data Source(s) WEIGHT RECORDED 178 lb 178 lb [facility] Body height Measured 60 in 60 in [facility] ID Date Data Source [id number] 03/12/2020 08:46:36 AM EDT [facility] Name Value Range Interpretation Code Description Data Source(s) WEIGHT RECORDED 177 lb 177 lb [facility] Body height Measured 60 in 60 in [facility] ID Date Data Source [id number] 02/06/2020 08:36:07 AM EDT [facility] Name Value Range Interpretation Code Description Data Source(s) WEIGHT RECORDED 177 lb 177 lb [facility] Body height Measured 60 in 60 in [facility] ID Date Data Source [id number] 08/05/2019 07:42:49 AM EST [facility] Name Value Range Interpretation Code Description Data Source(s) WEIGHT RECORDED 165 lb 165 lb [facility] Body height Measured 60 in 60 in [facility] Patient Treatment Plan of Care Planned Activity Planned Date Details Description Data Source (s) Acetaminophen 325 MG / Oxycodone Hydrochloride 5 MG Or al Tablet 08/23/2020 12:00:00 AM EST eCW1 ([facility]) Acetaminophen 325 MG / Hydrocodone Bitartrate 5 MG Ora l Tablet [[place]] 07/19/2020 12:00:00 AM EST eCW1 ([facility]) Acetaminophen 325 MG / Hydrocodone Bitartrate 5 MG Ora l Tablet [[place]] 07/19/2020 12:00:00 AM EST eCW1 ([facility]) Acetaminophen 325 MG / Hydrocodone Bitartrate 5 MG Ora l Tablet [[place]] 06/06/2020 12:00:00 AM EST eCW1 ([facility]) Acetaminophen 325 MG / Hydrocodone Bitartrate 5 MG Ora l Tablet [[place]] 05/25/2020 12:00:00 AM EDT eCW1 ([facility]) Acetaminophen 325 MG / Hydrocodone Bitartrate 5 MG Ora l Tablet [[place]] 05/25/2020 12:00:00 AM EDT eCW1 ([facility]) Acetaminophen 325 MG / Hydrocodone Bitartrate 5 MG Ora l Tablet [[place]] 05/25/2020 12:00:00 AM EDT eCW1 ([facility]) Acetaminophen 325 MG / Hydrocodone Bitartrate 5 MG Ora l Tablet 05/23/2020 12:00:00 AM EDT eCW1 ([facility]) Acetaminophen 325 MG / Hydrocodone Bitartrate 5 MG Ora l Tablet 01/17/2020 12:00:00 AM EDT eCW1 ([facility]) Acetaminophen 325 MG / Hydrocodone Bitartrate 5 MG Ora l Tablet 01/17/2020 12:00:00 AM EDT eCW1 ([facility]) Acetaminophen 325 MG / Hydrocodone Bitartrate 5 MG Ora l Tablet 11/25/2019 12:00:00 AM EDT eCW1 ([facility]) Acetaminophen 325 MG / Hydrocodone Bitartrate 5 MG Ora l Tablet 10/21/2019 12:00:00 AM EDT eCW1 ([facility]) Acetaminophen 325 MG / Hydrocodone Bitartrate 5 MG Ora l Tablet 09/14/2019 12:00:00 AM EST eCW1 ([facility]) One Touch Delica 33 gauge 08/29/2019 12:00:00 AM EST eCW1 ([facility]) OneTouch Verio - 08/29/2019 12:00:00 AM EST eCW1 ([facility]) One Touch Delica 33 gauge 08/29/2019 12:00:00 AM EST eCW1 ([facility]) OneTouch Verio - 08/29/2019 12:00:00 AM EST eCW1 ([facility]) One Touch Delica 33 gauge 08/29/2019 12:00:00 AM EST eCW1 ([facility]) OneTouch Verio - 08/29/2019 12:00:00 AM EST eCW1 ([facility]) OneTouch Verio - 08/29/2019 12:00:00 AM EST eCW1 ([facility]) One Touch Delica 33 gauge 08/29/2019 12:00:00 AM EST eCW1 ([facility]) Metoprolol Tartrate 50 MG Oral Tablet 08/26/2019 12:00:00 AM EST eCW1 ([facility]) Metoprolol Tartrate 50 MG Oral Tablet 08/26/2019 12:00:00 AM EST eCW1 ([facility]) Metoprolol Tartrate 50 MG Oral Tablet 08/26/2019 12:00:00 AM EST eCW1 ([facility]) Metoprolol Tartrate 50 MG Oral Tablet 08/26/2019 12:00:00 AM EST eCW1 ([facility]) Metoprolol Tartrate 50 MG Oral Tablet 08/26/2019 12:00:00 AM EST eCW1 ([facility]) Metoprolol Tartrate 50 MG Oral Tablet 08/26/2019 12:00:00 AM EST eCW1 ([facility]) Metoprolol Tartrate 50 MG Oral Tablet 08/26/2019 12:00:00 AM EST eCW1 ([facility]) Acetaminophen 325 MG / Hydrocodone Bitartrate 5 MG Ora l Tablet 08/15/2019 12:00:00 AM EST eCW1 ([facility]) 30 ACTUAT umeclidinium 0.0625 MG/ACTUAT / vilanterol 0.025 MG/ACTUAT Dry Powder Inhaler 08/03/2019 12:00:[address] [facility] Acetaminophen 325 MG / Hydrocodone Bitartrate 5 MG Ora l Tablet 07/15/2019 12:00:00 AM EST eCW1 ([facility]) Tiotropium [place]-Olodaterol 2.5-2.5 MC G/ACT Inhalation Aerosol Solution (STIOLTO RESPIMAT) 07/05/2019 12:00:00 AM EST [facility] sucroferric oxyhydroxide 500 MG Chewable Tablet [facility] b complex-vitamin c-folic acid (NEPHRO-GUILHERME) 0.8 MG [facility]
[2020-09-11] MEDS ORDERED: VELP5CHW (06:20)
[2020-09-11] MEDS ORDERED: ACETAMINOPHEN 500 MG TAB PO ONE (06:45)
--- NOTE | 2020-09-11 07:08 | REPVR ---
PROCEDURE INFORMATION: Exam: CT Lumbar Spine Without Contrast Exam date and time: 09/11/2020 6:51 AM Age: 64 years old Clinical indication: Injury or trauma; Fall; Blunt trauma (contusions or hematomas) TECHNIQUE: Imaging protocol: Computed tomography images of the lumbar spine without contrast. Radiation optimization: All CT scans at this facility use at least one of these dose optimization techniques: automated exposure control; mA and/or kV adjustment per patient size (includes targeted exams where dose is matched to clinical indication); or iterative reconstruction. COMPARISON: No relevant prior studies available. FINDINGS: Vertebrae: Mild osteopenia. No acute fracture. Normal alignment. Discs/Spinal canal/Neural foramina: Severe degenerative disc disease at L4-L5 and L5-S1. Stenosis of the spinal canal at L3-L4. Bilateral neural foraminal stenosis at L5-S1 Sacrum/coccyx: Degenerative changes in the bilateral sacroiliac joints. Lungs: Linear atelectasis or scarring at the bilateral lung bases. Kidneys and ureters: Complex hyperattenuating possibly hemorrhagic right renal cyst. Stomach and bowel: Mild diverticulosis of colon. No evidence of acute diverticulitis. Vasculature: Atherosclerotic disease of the abdominal aorta. Soft tissues: Unremarkable. IMPRESSION: No acute fractures. COMMENTS: Consistent with the [employer]'s Incidental Findings Committee white paper (J Am Edouard Radiol 2018): Any incidental renal lesion less than 1 cm or classified as too small to characterize, or any incidental cystic renal lesion characterized as simple-appearing, is likely benign. No follow-up imaging is recommended for these lesions per consensus recommendations based on imaging criteria. Electronically signed by: Mkio Patel On 09/11/2020 07:09:07 AM
--- NOTE | 2020-09-11 07:11 | REPVR ---
PROCEDURE INFORMATION: Exam: CT Cervical Spine Without Contrast Exam date and time: 09/11/2020 6:51 AM Age: 64 years old Clinical indication: Injury or trauma; Fall; Blunt trauma TECHNIQUE: Imaging protocol: Computed tomography images of the cervical spine without contrast. Radiation optimization: All CT scans at this facility use at least one of these dose optimization techniques: automated exposure control; mA and/or kV adjustment per patient size (includes targeted exams where dose is matched to clinical indication); or iterative reconstruction. COMPARISON: CT Spine,cervical w/o contrast 08/03/2019 11:15 AM FINDINGS: Bones/joints: No acute fracture. Normal alignment. Discs/Spinal canal/Neural foramina: Degenerative disc disease at C5-C6 with stenosis of the spinal canal and bilateral neural foramina. Lungs: Emphysema. Vasculature: Atherosclerotic disease. Soft tissues: Unremarkable. IMPRESSION: No acute fractures. Electronically signed by: iMko Patel On 09/11/2020 07:10:56 AM
--- NOTE | 2020-09-11 07:14 | REPVR ---
PROCEDURE INFORMATION: Exam: CT Head Without Contrast Exam date and time: 09/11/2020 6:51 AM Age: 64 years old Clinical indication: Injury or trauma; Fall; Blunt trauma (contusions or hematomas) TECHNIQUE: Imaging protocol: Computed tomography of the head without contrast. Radiation optimization: All CT scans at this facility use at least one of these dose optimization techniques: automated exposure control; mA and/or kV adjustment per patient size (includes targeted exams where dose is matched to clinical indication); or iterative reconstruction. COMPARISON: CT Head without contrast 08/21/2019 8:25 AM FINDINGS: Brain: Generalized parenchymal atrophy and evidence of microvascular ischemic disease involving periventricular and subcortical white matter bilaterally. Mild encephalomalacia in the left frontal lobe. Cerebral ventricles: No ventriculomegaly. Bones/joints: Unremarkable. No acute fracture. Paranasal sinuses: Visualized sinuses are unremarkable. No fluid levels. Mastoid air cells: Visualized mastoid air cells are well aerated. Vasculature: Atherosclerotic disease. Soft tissues: Unremarkable. IMPRESSION: No acute intracranial pathology. Electronically signed by: Miko Patel On 09/11/2020 07:13:51 AM
[2020-09-11 07:48] VITALS: BP 130/66
[2020-09-11] MEDS ORDERED: LIDO5DIS41 TOP (07:48)
--- OUTSIDE RECORDS SUMMARY | 2020-09-11 08:42 | CCD ---
Author Author [facility] Organization [facility] Address Unknown Phone Unavailable Care Team Providers Care Ortho Rn Name Role Phone Peggy Avila MD Unavailable [...] Unavailable Unavailable Peggy Avila MD Unavailable Unavailable Avila , Peggy [...] Unavailable ASHISH RAE MD Unavailable Unavailable ASHISH REA MD Unavailable Unavailable ASHISH RAE MD Unavailable [...] Avila Peggy TAVERA Unavailable Unavailable Avila Peggy TAEVRA Unavailable Unavailable Avila Peggy TAVERA Unavailable Unavailable [...] is protected by Article 27-F of the [facility] Public Health law. If you continue you may have access to information: Regarding HIV / AIDS; Provided by facilities licensed or operated by the [facility] Office of Mental Health; or Provided by the [facility] Office for People With Developmental Disabilities. If such information is present, then the following [facility] mandated warning applies: This information has been [...] law may result in a fine or correction sentence or both. A general authorization for the release of medical or other information is NOT sufficient authorization for further disc losure. Allergies and Adverse Reactions Type Description Substance Reaction Status Data Source(s ) Drug allergy Gatifloxacin gatifloxacin Anaphylaxis Active eCW1 ( [facility]) Azithromycin Azithromycin Azithromycin dyspnea, face an d lips swelling and tingling - seen in the ER 07/2016 Active eCW1 ([facility]) tequin tequin tequin Anaphylaxis Active eCW1 ([facility]) tequin tequin tequin Anaphylaxis Active eCW1 ([facility]) Family History Family Member Name Family Member Gender Family Member Status Date o f Status Description Data Source(s) Unknown Unknown Problem MEDENT ([facility]) Unknown Unknown Problem MEDENT ([employer]) Unknown Female Problem MEDENT ([facility]) Encounters Encounter Providers Location Date Indications Data Source(s ) Outpatient Attender: STACY CORDERO 03/07/2021 12:00:00 AM [facility] Outpatient Referrer: STACY CORDERO 03/07/2021 12:00:00 AM [facility] Outpatient Referrer: STACY CORDERO 03/07/2021 12:00:00 AM [facility] Outpatient Attender: STACY CORDEROReferrer: STACY CORDERO [id number] 08/31/2020 12:00:00 AM EST - 08/31/2020 11:51:33 AM EST Encounter for screening mammogram for malignant neoplasm of breast [facility] Encounter for screening mammogram for ma lignant neoplasm of breast Outpatient Referrer: STACY CORDERO 08/31/2020 12:00 :00 AM EST Mammographic calcification found on diagnostic imaging of breast [facility] Mammographic calcification found on diag nostic imaging of breast Outpatient Referrer: STACY CORDERO 08/31/2020 12:00 :00 AM EST Unspecified lump in the right breast, unspecified quadrant [facility] Unspecified lump in the right breast, un specified quadrant [place] [address] [facility] [address] 08/23/2020 12:00:00 AM EST [facility]CW1 [facility] Outpatient Attender: STACY CORDEROReferrer: STACY CORDERO 08/08/2020 12:00:00 AM [facility] Outpatient Referrer: STACY CORDERO 08/08/2020 12:00:00 AM [facility] Outpatient Referrer: STACY CORDERO 08/08/2020 12:00:00 AM [facility] Outpatient Attender: Lucio Munoz MDReferrer: Aiden Nieves MD 08/01/2020 04:00:[address] [facility] Recurring Patient Attender: Lucio Milnererrer: Aiden Gilmore dd, MD 08/01/2020 12:19:[address] [facility] [place] [address] [facility] [address] 07/30/2020 12:00:00 AM EST eCW1 ([facility] [place] [address] [facility] [address] 07/23/2020 12:00:00 AM EST eCW1 ([facility] [place] [address] [facility] [address] 07/16/2020 12:00:00 AM EST eCW1 ([facility] [place] [address] [facility] [address] 06/06/2020 12:00:00 AM EST eCW1 ([facility] [place] [address] [facility] [address] 06/01/2020 12:00:00 AM EST eCW1 ([facility]) Outpatient Referrer: STACY CORDERO 05/28/2020 12:00:00 AM [facility] Outpatient Attender: STACY CORDEROReferrer: STACY CORDERO 05/28/2020 12:00:00 AM [facility] [place] [address] [facility] [address] 05/24/2020 12:00:00 AM EDT eCW1 ([facility]) [place] [address] [facility] [address] 05/23/2020 12:00:00 AM EDT eCW1 ([facility]) [place] [address] [facility] [address] 05/17/2020 12:00:00 AM EDT eCW1 ([facility]) [place] [address] [facility] [address] 05/14/2020 12:00:00 AM EDT eCW1 ([facility]) Outpatient Attender: STACY CORDEROReferrer: STACY CORDERO 05/11/2020 12:00:00 AM [facility] Outpatient Referrer: STACY CORDERO 05/11/2020 12:00:00 AM [facility] Unknown [address] [facility] [address] 05/01/2020 12:00:00 AM EDT [facility]CW1 [facility] [place] [address] [facility] [address] 04/26/2020 12:00:00 AM EDT eCW1 ([facility]) Outpatient [id number] 04/17/2020 10:46:52 AM EDT [facility] Outpatient Referrer: STACY CORDERO 04/09/2020 12:00:00 AM [facility] Outpatient Attender: STACY CORDERO 04/09/2020 12:00:00 AM [facility] Outpatient Attender: RIDGE BAKER MD [id number] 08/26/2 020 12:00:00 AM EDT - 03/21/2020 02:47:09 PM EDT Centrilobular emphysema [facility] Centrilobular emphysema Outpatient Attender: RIDGE BAKER MDReferrer: RIDGE BAKER MD 03/21/2020 12:00:00 AM EDT Other nonspecific [facility] Other nonspecific abnormal finding of marybel ng field Attender: Tiffanie Avila MD 03/15/2020 10:06:58 AM ED T [facility] Outpatient Attender: 0000{ HONDO 03/14/2020 10:57:00 AM E DT [facility] Outpatient Attender: Tiffanie Avila MD 03/14/2020 10:57:00 AM EDT RIGHT BREAST CALCS [facility] RIGHT BREAST CALCS Outpatient Attender: Tiffanie Avila MD [id number] 03/02/2020 12:00:00 AM EDT - 03/02/2020 11:26:16 AM EDT [facility] Outpatient Referrer: STACY CORDERO 02/20/2020 12:00 :00 AM EDT Other abnormal and inconclusive findings on diagnostic imaging of [facility] Other abnormal and inconclusive findings on diagnostic imaging of breast Outpatient Referrer: STACY CORDERO 02/03/2020 11:02 :00 AM EDT Other abnormal and inconclusive findings on diagnostic imaging of [facility] Other abnormal and inconclusive findings on diagnostic imaging of breast Outpatient Attender: STACY CORDEROReferrer: STACY CORDERO [id number] 02/03/2020 12:00:00 AM EDT - 02/03/2020 12:22:32 PM EDT Unspecified lump in the right breast, unspecified quadrant [facility] Unspecified lump in the right breast, un specified quadrant Outpatient Referrer: STACY CORDERO 02/03/2020 12:00 :00 AM EDT Encounter for screening mammogram for malignant neoplasm of breast [facility] Encounter for screening mammogram for ma lignant neoplasm of breast [place] [address] [facility] [address] 01/17/2020 12:00:00 AM EDT eCW1 ([facility]) Unknown [address] [facility] [address] 01/13/2020 12:00:00 AM EDT eCW1 ([facility]) Outpatient 01/04/2020 12:00:00 AM [facility] Outpatient Referrer: STACY CORDERO 12/28/2019 12:00:00 AM [facility] Outpatient Attender: STACY CORDEROReferrer: STACY CORDERO 12/28/2019 12:00:[address] [address] 12/14/2019 12:00:00 AM EDT eCW1 ([facility]) [address] [address] 12/13/2019 12:00:00 AM EDT [facility] [address] [address] 11/24/2019 12:00:00 AM EDT eCW1 ([facility] [address] [address] 11/22/2019 12:00:00 AM EDT [facility] Outpatient Referrer: ASHISH RAE MD 11/09/2019 02:56:0 0 PM EDT [facility] [address] [address] 11/03/2019 12:00:00 AM EDT [facility] [address] [address] 10/27/2019 12:00:00 AM EDT [facility] Outpatient Referrer: STACY CORDERO 10/26/2019 12:00:00 AM [facility] Outpatient Attender: STACY CORDEROReferrer: STACY CORDERO 10/26/2019 12:00:00 AM [facility] Outpatient Referrer: ASHISH RAE MD 10/25/2019 03:22:0 0 PM EDT [facility] Outpatient Referrer: ASHISH RAE MD 10/25/2019 03:15:0 0 PM EDT [facility] [place] [address] [facility] [address] 10/19/2019 12:00:00 AM EDT eCW1 ([facility]) Outpatient Attender: Emily Barboza MD Physical Therapy 10/16 03:30:00 PM EDT MEDENT ([facility]) [facility] [place] [address] [facility] [address] 10/14/2019 12:00:00 AM EDT eCW1 ([facility]) [facility] [address] [place] [address] [address] 09/30/2019 12:00:00 AM EST eCW1 ([facility]) [facility] [place] [place] Resident [address] [place] [address], [place] [address] 09/30/2019 12:00:00 AM EST eCW1 ([facility]) [facility] [address] [place] [address], [place] [address] 09/16/2019 12:00:00 AM EST eCW1 ([facility]) [facility] [address] [place] [address] [address] 09/15/2019 12:00:00 AM EST eCW1 ([facility]) [facility] [address] [place] [address], [place] [address] 09/14/2019 12:00:00 AM EST eCW1 ([facility]) [facility] [address] [facility] [address] 09/14/2019 12:00:00 AM EST eCW1 ([facility]) Outpatient Attender: Emily Barboza MD Physical Therapy 09/12 10:00:00 AM EST MEDENT ([facility]) [facility] [address] [place] [address], [place] [address] 09/12/2019 12:00:00 AM EST eCW1 ([facility]) [address] [address] 09/12/2019 12:00:00 AM EST eCW1 ([facility]) [facility] [place] [address] [facility] [address] 09/09/2019 12:00:00 AM EST eCW1 ([facility]) Outpatient Referrer: ASHISH RAE MD 09/07/2019 07:48:0 0 PM EST [facility] Outpatient Referrer: ASHISH RAE MD 09/07/2019 03:13:0 0 PM EST [facility] [place] [address] [facility] [address] 09/07/2019 12:00:00 AM EST eCW1 ([facility]) [facility] [place] [address] [facility] [address] 09/01/2019 12:00:00 AM EST eCW1 ([facility]) [facility] [place] [address] [facility] [address] 08/31/2019 12:00:00 AM EST eCW1 ([facility]) [facility] [place] [address] [facility] [address] 08/29/2019 12:00:00 AM EST eCW1 ([facility]) Outpatient Referrer: ASHISH RAE MD 08/26/2019 09:23:0 0 AM EST [facility] [place] [address] [facility] [address] 08/26/2019 12:00:00 AM EST eCW1 ([facility]) [facility] [place] [address] [facility] [address] 08/24/2019 12:00:00 AM EST eCW1 ([facility]) Outpatient Referrer: ASHISH RAE MD 08/23/2019 12:34:0 0 PM EST [facility] [place] [address] [facility] [address] 08/22/2019 12:00:00 AM EST eCW1 ([facility]) [facility] [place] [address] [facility] [address] 08/16/2019 12:00:00 AM EST eCW1 ([facility]) [address] [address] 08/15/2019 12:00:00 AM EST eCW1 ([facility]) [address] [address] 08/10/2019 12:00:00 AM EST eCW1 ([facility]) Outpatient Attender: ASHISH RAE MD Physical Therapy 08:15:00 AM EST MEDENT ([facility]) [address] [address] 08/08/2019 12:00:00 AM EST eCW1 ([facility]) Emergency Attender: DEFAULT / GENE KATHLEEN / UNKNOWN PROVIDER ALIASES Referrer: PROVIDER SYSTEM IN A-ADULTERM 08/03/2019 12:00:00 AM EST - 08/03/2019 07:31:00 PM EST Striking against unspecified object with subsequent fall, initial encounter [facility] Striking against unspecified object with subsequent fall, initial encounter Patient discharged. [address] [address] 07/14/2019 12:00:00 AM EST eCW1 ([facility]) Immunizations Vaccine Date Status Description Data Source(s) Zoster 50mcg/0.5mL (Shingrix) 08/15/2019 04:41:00 PM EST completed eCW1 ([facility]) Zoster 50mcg/0.5mL (Shingrix) 08/15/2019 04:41:00 PM EST completed eCW1 ([facility]) Zoster 50mcg/0.5mL (Shingrix) 08/15/2019 04:41:00 PM EST completed eCW1 ([facility]) Zoster 50mcg/0.5mL (Shingrix) 08/15/2019 04:41:00 PM EST completed eCW1 ([facility]) Zoster 50mcg/0.5mL (Shingrix) 08/15/2019 04:41:00 PM EST completed eCW1 ([facility]) Zoster 50mcg/0.5mL (Shingrix) 08/15/2019 04:41:00 PM EST completed eCW1 ([facility]) Zoster 50mcg/0.5mL (Shingrix) 08/15/2019 04:41:00 PM EST completed eCW1 ([facility]) Zoster 50mcg/0.5mL (Shingrix) 08/15/2019 04:41:00 PM EST completed eCW1 ([facility]) Zoster 50mcg/0.5mL (Shingrix) 08/15/2019 04:41:00 PM EST completed eCW1 ([facility]) Zoster 50mcg/0.5mL (Shingrix) 08/15/2019 04:41:00 PM EST completed eCW1 ([facility]) Zoster 50mcg/0.5mL (Shingrix) 08/15/2019 04:41:00 PM EST completed eCW1 ([facility]) Zoster 50mcg/0.5mL (Shingrix) 08/15/2019 04:41:00 PM EST completed eCW1 ([facility]) Zoster 50mcg/0.5mL (S[facility]rix) 08/15/2019 04:41:00 PM EST completed eCW1 ([facility]) Zoster 50mcg/0.5mL (S[facility]rix) 08/15/2019 04:41:00 PM EST completed eCW1 ([facility]) Zoster 50mcg/0.5mL ([facility]) 08/15/2019 04:41:00 PM EST completed eCW1 ([facility]) Medications Medication Brand Name Start Date [...] {tablet_as_needed} active O xycodone-Acetaminophen 5-325 MG eCW1 ([facility]) 5-325 mg 07/26/2020 12:00:00 AM EST [...] Hydrocodone Alayna trate 5 MG Oral Tablet [Mustang] Mustang 5- 325 MG Mustang 5-325 MG 07/19/2020 12:00:00 AM EST 1.0 {tablet_as_needed} active Mustang 5-325 MG eCW1 ([facility]) Acetaminophen 325 MG / Hydrocodone Alayna trate 5 MG Oral Tablet [Mustang] Mustang 5- 325 MG Mustang 5-325 MG 07/19/2020 12:00:00 AM EST 1.0 {tablet_as_needed} active Mustang 5-325 MG eCW1 ([facility]) 0.8 mg 07/06/2020 12:00:00 AM EST [...] Hydrocodone Alayna trate 5 MG Oral Tablet [Mustang] Mustang 5- 325 MG Mustang 5-325 MG 06/06/2020 12:00:00 AM EST 1.0 {tablet_as_needed} active Mustang 5-325 MG eCW1 ([facility]) 50 mg 06/02/2020 12:00:00 AM EST [...] Hydrocodone Alayna trate 5 MG Oral Tablet [Mustang] Mustang 5- 325 MG Mustang 5-325 MG 05/25/2020 12:00:00 AM EDT 1.0 {tablet_as_needed} active Mustang 5-325 MG eCW1 ([facility]) Acetaminophen 325 MG / Hydrocodone Alayna trate 5 MG Oral Tablet [Mustang] Mustang 5- 325 MG Mustang 5-325 MG 05/25/2020 12:00:00 AM EDT 1.0 {tablet_as_needed} active Mustang 5-325 MG eCW1 ([facility]) Acetaminophen 325 MG / Hydrocodone Alayna trate 5 MG Oral Tablet [Mustang] Mustang 5- 325 MG Mustang 5-325 MG 05/25/2020 12:00:00 AM EDT 1.0 {tablet_as_needed} active Mustang 5-325 MG eCW1 ([facility]) 5-325 mg 05/25/2020 12:00:00 AM EDT [...] EDT active Hydrocodone-Aceta minophen 5-325 MG eCW1 ([facility]) Rosuvastatin calcium 20 MG Oral Tablet [...] EDT active Hydrocodone-Aceta minophen 5-325 MG eCW1 ([facility]) Acetaminophen 325 MG / Hydrocodone Alayna trate 5 MG Oral Tablet Hydrocodone- Acetaminophen 5-325 MG Hydrocodone-Acetaminophen 5-325 MG 01/17/2020 12:00:00 AM EDT active Hydrocodone-Aceta minophen 5-325 MG eCW1 ([facility]) Acetaminophen 325 MG / Hydrocodone Alayna trate 5 MG Oral Tablet Hydrocodone- Acetaminophen 5-325 MG Hydrocodone-Acetaminophen 5-325 MG 01/17/2020 12:00:00 AM EDT active Hydrocodone-Aceta minophen 5-325 MG eCW1 ([facility]) Acetaminophen 325 MG / Hydrocodone Alayna trate 5 MG Oral Tablet Hydrocodone- Acetaminophen 5-325 MG Hydrocodone-Acetaminophen 5-325 MG 01/17/2020 12:00:00 AM EDT active Hydrocodone-Aceta minophen 5-325 MG eCW1 ([facility]) Acetaminophen 325 MG / Hydrocodone Alayna trate 5 MG Oral Tablet Hydrocodone- Acetaminophen 5-325 MG Hydrocodone-Acetaminophen 5-325 MG 01/17/2020 12:00:00 AM EDT active Hydrocodone-Aceta minophen 5-325 MG eCW1 ([facility]) 5-325 mg 01/17/2020 12:00:00 AM EDT tablet 56 TAKE ONE TABLET BY MOUTH TWICE A DAY NEEDED * MAXIMUM DAILY DOSE = 2 TAKE ONE TABLET BY MOUTH TWICE A DAY NEEDED * MAXIMUM DAILY DOSE = 2 SOLD: 01/17/2020 [facility] 2 mg 12/15/2019 12:00:00 AM EDT tablet 112 TAKE TWO TABLETS BY MOUTH TWICE A DAY NEEDED. MAXIMUM DAILY DOSE = 4 TABLETS TAKE TWO TABLETS BY MOUTH TWICE A DAY NEEDED. MAXIMUM DAILY DOSE = 4 TABLETS SOLD: 12/16/2019 [facility] Cyclobenzaprine hydrochloride 5 MG Oral Tablet CYCLOBENZAPRI NE HCL 12/15/2019 12:00:00 AM EDT tablet 90 TAKE ONE TABLET BY MOUTH THREE TIMES A DAY NEEDED TAKE ONE TABLET BY MOUTH THREE TIMES A DAY NEEDED SOLD: 03/15/2020 [facility] Cyclobenzaprine hydrochloride 5 MG Oral Tablet CYCLOBENZAPRI NE HCL 12/15/2019 12:00:00 AM EDT tablet 90 TAKE ONE TABLET BY MOUTH THREE TIMES A DAY NEEDED TAKE ONE TABLET BY MOUTH THREE TIMES A DAY NEEDED SOLD: 06/25/2020 [facility] Cyclobenzaprine hydrochloride 5 MG Oral Tablet CYCLOBENZAPRI NE HCL 12/15/2019 12:00:00 AM EDT tablet 90 TAKE ONE TABLET BY MOUTH THREE TIMES A DAY NEEDED TAKE ONE TABLET BY MOUTH THREE TIMES A DAY NEEDED SOLD: 08/17/2020 [facility] Cyclobenzaprine hydrochloride 5 MG Oral Tablet CYCLOBENZAPRI [...] 12:00:00 AM EDT active 1 tab eCW1 ([facility]) 20 mg 11/24/2019 12:00:00 AM EDT tablet [...] 12:00:00 AM EDT active 1 tab eCW1 ([facility]) Trazodone Hydrochloride 100 MG Oral Tablet TRAZODONE [...] 12:00:00 AM EST active 1 tab eCW1 ([facility]) 5-325 mg 09/14/2019 12:00:00 AM EST tablet 56 TAKE 1 TABLET BY MOUTH TWICE A DAY NEEDED MAX DAILY DOSE = 2 TABLETS TAKE 1 TABLET BY MOUTH TWICE A DAY NEEDED MAX DAILY DOSE = 2 TABLETS SOLD: 09/14/2019 [facility] No Active Medications 09/12/2019 12:00:00 AM EST completed MEDENT ([facility]) BLOOD SUGAR DIAGNOSTIC 09/12/2019 12:00:00 AM EST strip 300 TEST TWO TIMES A DAY AND NEEDED TEST TWO TIMES A DAY AND NEEDED SOLD: 09/13/2019 [facility] OneTouch Verio - OneTouch Verio - 08/29/2019 12:00:00 AM EST active OneTouch Verio - eCW1 ([facility]) One Touch Delica 33 gauge UNK 08/29/2019 12:00:00 AM EST active One Touch Delica 33 gauge eCW1 ([facility]) OneTouch Verio - OneTouch Verio - 08/29/2019 12:00:00 AM EST active OneTouch Verio - eCW1 ([facility]) OneTouch Verio - OneTouch Verio - 08/29/2019 12:00:00 AM EST active OneTouch Verio - eCW1 ([facility]) One Touch Delica 33 gauge UNK 08/29/2019 12:00:00 AM EST active One Touch Delica 33 gauge eCW1 ([facility]) OneTouch Verio - OneTouch Verio - 08/29/2019 12:00:00 AM EST active verio flex eCW1 ([facility]) One Touch Delica 33 gauge UNK 08/29/2019 12:00:00 AM EST active One Touch Delica 33 gauge eCW1 ([facility]) One Touch Delica 33 gauge UNK 08/29/2019 12:00:00 AM EST active testing twice a day and as needed eCW1 ([facility]) OneTouch Verio - OneTouch Verio - 08/29/2019 12:00:00 AM EST active OneTouch Verio - eCW1 ([facility]) One Touch Delica 33 gauge UNK 08/29/2019 12:00:00 AM EST active One Touch Delica 33 gauge eCW1 ([facility]) One Touch Delica 33 gauge UNK 08/29/2019 12:00:00 AM EST active One Touch Delica 33 gauge eCW1 ([facility]) OneTouch Verio - OneTouch Verio - 08/29/2019 12:00:00 AM EST active OneTouch Verio - eCW1 ([facility]) OneTouch Verio - OneTouch Verio - 08/29/2019 12:00:00 AM EST active OneTouch Verio - eCW1 ([facility]) One Touch Delica 33 gauge UNK 08/29/2019 12:00:00 AM EST active One Touch Delica 33 gauge eCW1 ([facility]) OneTouch Verio - OneTouch Verio - 08/29/2019 12:00:00 AM EST active OneTouch Verio - eCW1 ([facility]) One Touch Delica 33 gauge UNK 08/29/2019 12:00:00 AM EST active One Touch Delica 33 gauge eCW1 ([facility]) One Touch Delica 33 gauge UNK 08/29/2019 12:00:00 AM EST active One Touch Delica 33 gauge eCW1 ([facility]) One Touch Delica 33 gauge UNK 08/29/2019 12:00:00 AM EST active One Touch Delica 33 gauge eCW1 ([facility]) OneTouch Verio - OneTouch Verio - 08/29/2019 12:00:00 AM EST active OneTouch Verio - eCW1 ([facility]) OneTouch Verio - OneTouch Verio - 08/29/2019 12:00:00 AM EST active OneTouch Verio - eCW1 ([facility]) One Touch Delica 33 gauge UNK 08/29/2019 12:00:00 AM EST active One Touch Delica 33 gauge eCW1 ([facility]) OneTouch Verio - OneTouch Verio - 08/29/2019 12:00:00 AM EST active OneTouch Verio - eCW1 ([facility]) One Touch Delica 33 gauge UNK 08/29/2019 12:00:00 AM EST active testing twice a day and as needed eCW1 ([facility]) One Touch Delica 33 gauge UNK 08/29/2019 12:00:00 AM EST active One Touch Delica 33 gauge eCW1 ([facility]) One Touch Delica 33 gauge UNK 08/29/2019 12:00:00 AM EST active One Touch Delica 33 gauge eCW1 ([facility]) OneTouch Verio - OneTouch Verio - 08/29/2019 12:00:00 AM EST active verio flex eCW1 ([facility]) OneTouch Verio - OneTouch Verio - 08/29/2019 12:00:00 AM EST active OneTouch Verio - eCW1 ([facility]) OneTouch Verio - OneTouch Verio - 08/29/2019 12:00:00 AM EST active OneTouch Verio - eCW1 ([facility]) One Touch Delica 33 gauge UNK 08/29/2019 12:00:00 AM EST active One Touch Delica 33 gauge eCW1 ([facility]) OneTouch Verio - OneTouch Verio - 08/29/2019 12:00:00 AM EST active OneTouch Verio - eCW1 ([facility]) OneTouch Verio - OneTouch Verio - 08/29/2019 12:00:00 AM EST active OneTouch Verio - eCW1 ([facility]) One Touch Delica 33 gauge UNK 08/29/2019 12:00:00 AM EST active One Touch Delica 33 gauge eCW1 ([facility]) Metoprolol Tartrate 50 MG Oral Tablet Metoprolol Tartrate 50 MG 08/26/2019 12:00:00 AM EST 1.0 {tablet_with_food} active Metoprolol Tartrate 50 MG eCW1 ([facility]) Calcitriol 0.00125 MG Oral Capsule Calcitriol 0.25 MCG Calci triol 0.25 MCG 08/26/2019 12:00:00 AM EST 2.0 {capsules} active Calcitriol 0.25 MCG eCW1 ([facility]) Metoprolol Tartrate 50 MG Oral Tablet Metoprolol Tartrate 50 MG 08/26/2019 12:00:00 AM EST 1.0 {tablet_with_food} active Metoprolol Tartrate 50 MG eCW1 ([facility]) Metoprolol Tartrate 50 MG Oral Tablet Metoprolol Tartrate 50 MG 08/26/2019 12:00:00 AM EST 1.0 {tablet_with_food} active Metoprolol Tartrate 50 MG eCW1 ([facility]) Calcitriol 0.04487 MG Oral Capsule Calcitriol 0.25 MCG Calci triol 0.25 MCG 08/26/2019 12:00:00 AM EST 2.0 {capsules} active Calcitriol 0.25 MCG eCW1 ([facility]) Calcitriol 0.06061 MG Oral Capsule Calcitriol 0.25 MCG Calci triol 0.25 MCG 08/26/2019 12:00:00 AM EST 2.0 {capsules} active Calcitriol 0.25 MCG eCW1 ([facility]) Metoprolol Tartrate 50 MG Oral Tablet Metoprolol Tartrate 50 MG 08/26/2019 12:00:00 AM EST 1.0 {tablet_with_food} active Metoprolol Tartrate 50 MG eCW1 ([facility]) Metoprolol Tartrate 50 MG Oral Tablet Metoprolol Tartrate 50 MG 08/26/2019 12:00:00 AM EST 1.0 {tablet_with_food} active Metoprolol Tartrate 50 MG eCW1 ([facility]) Metoprolol Tartrate 50 MG Oral Tablet Metoprolol Tartrate 50 MG 08/26/2019 12:00:00 AM EST 1.0 {tablet_with_food} active Metoprolol Tartrate 50 MG eCW1 ([facility]) Calcitriol 0.66877 MG Oral Capsule Calcitriol 0.25 MCG Calci triol 0.25 MCG 08/26/2019 12:00:00 AM EST 2.0 {capsules} active Calcitriol 0.25 MCG eCW1 ([facility]) Calcitriol 0.18420 MG Oral Capsule Calcitriol 0.25 MCG Calci triol 0.25 MCG 08/26/2019 12:00:00 AM EST 2.0 {capsules} active Calcitriol 0.25 MCG eCW1 ([facility]) Metoprolol Tartrate 50 MG Oral Tablet Metoprolol Tartrate 50 MG 08/26/2019 12:00:00 AM EST 1.0 {tablet_with_food} active Metoprolol Tartrate 50 MG eCW1 ([facility]) Metoprolol Tartrate 50 MG Oral Tablet Metoprolol Tartrate 50 MG 08/26/2019 12:00:00 AM EST active 1 tablet with food eCW1 ([facility]) Calcitriol 0.90464 MG Oral Capsule Calcitriol 0.25 MCG Calci triol 0.25 MCG 08/26/2019 12:00:00 AM EST 2.0 {capsules} active Calcitriol 0.25 MCG eCW1 ([facility]) Calcitriol 0.41581 MG Oral Capsule Calcitriol 0.25 MCG Calci triol 0.25 MCG 08/26/2019 12:00:00 AM EST 2.0 {capsules} suspen ded Calcitriol 0.25 MCG eCW1 ([facility]) Calcitriol 0.41130 MG Oral Capsule Calcitriol 0.25 MCG Calci triol 0.25 MCG 08/26/2019 12:00:00 AM EST active 2 capsules eCW1 ([facility]) Calcitriol 0.33474 MG Oral Capsule Calcitriol 0.25 MCG Calci triol 0.25 MCG 08/26/2019 12:00:00 AM EST active 2 capsules eCW1 ([facility]) Metoprolol Tartrate 50 MG Oral Tablet Metoprolol Tartrate 50 MG 08/26/2019 12:00:00 AM EST 1.0 {tablet_with_food} active Metoprolol Tartrate 50 MG eCW1 ([facility]) Metoprolol Tartrate 50 MG Oral Tablet Metoprolol Tartrate 50 MG 08/26/2019 12:00:00 AM EST 1.0 {tablet_with_food} active Metoprolol Tartrate 50 MG eCW1 ([facility]) Calcitriol 0.67957 MG Oral Capsule Calcitriol 0.25 MCG Calci triol 0.25 MCG 08/26/2019 12:00:00 AM EST 2.0 {capsules} active Calcitriol 0.25 MCG eCW1 ([facility]) Metoprolol Tartrate 50 MG Oral Tablet Metoprolol Tartrate 50 MG 08/26/2019 12:00:00 AM EST active 1 tablet with food eCW1 ([facility]) Metoprolol Tartrate 50 MG Oral Tablet Metoprolol Tartrate 50 MG 08/26/2019 12:00:00 AM EST 1.0 {tablet_with_food} active Metoprolol Tartrate 50 MG eCW1 ([facility]) Metoprolol Tartrate 50 MG Oral Tablet Metoprolol Tartrate 50 MG 08/26/2019 12:00:00 AM EST active 1 tablet with food eCW1 ([facility]) Metoprolol Tartrate 50 MG Oral Tablet Metoprolol Tartrate 50 MG 08/26/2019 12:00:00 AM EST 1.0 {tablet_with_food} active Metoprolol Tartrate 50 MG eCW1 ([facility]) Calcitriol 0.92491 MG Oral Capsule Calcitriol 0.25 MCG Calci triol 0.25 MCG 08/26/2019 12:00:00 AM EST 2.0 {capsules} suspen ded Calcitriol 0.25 MCG eCW1 ([facility]) Calcitriol 0.52107 MG Oral Capsule Calcitriol 0.25 MCG Calci triol 0.25 MCG 08/26/2019 12:00:00 AM EST 2.0 {capsules} active Calcitriol 0.25 MCG eCW1 ([facility]) Calcitriol 0.56324 MG Oral Capsule Calcitriol 0.25 MCG Calci triol 0.25 MCG 08/26/2019 12:00:00 AM EST 2.0 {capsules} active Calcitriol 0.25 MCG eCW1 ([facility]) Calcitriol 0.10368 MG Oral Capsule Calcitriol 0.25 MCG Calci triol 0.25 MCG 08/26/2019 12:00:00 AM EST 2.0 {capsules} active Calcitriol 0.25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 ANSI-Medicaid [id number] ANSI-Medicaid [id number] ANSI-Medicare Part B [id number] ANSI-Commercial mft5b599-ks28-610q-5300-wracfp09g19y iep1o122-xm27-163n-0925-ebtkmt95e07d [employer] C [id number] S [id number] Medicare C [id number] SELF [id number] Medicare C [id number] SELF [id number] T MEDICARE A [id number] Self [id number] MEDICARE A [id number] Self [id number] T MEDICARE C [id number] S [id number] T [facility] OPTIONS C [id number] S [id number] [place] Part [place] [id number] Self [id number] Medicare [facility] Medicare Primary [id number] Self [id number] [employer] B[employer] [id number] SP [id number] [facility] O [id number] S [id number] MEDICAID [id number] SP [id number] MEDICARE [id number] SP [id number] T [place] Medig[place] Part B Self Medicare [facility] Medicare Primary Self MEDICARE [id number] SP [id number] T SELF PAY 2 UNAVAILABLE 1 UNA[place]ILA BLE [place]ID [place] 3 [id number] MEDICARE 4 [id number] 1 [id number] T FIRST [employer] NOT FOR TODAYS VISIT SP NOT FOR TODAYS VISIT BIG LOTS NOT IN EFFECT SP NOT IN EFFECT Problems, Conditions, and Diagnoses Code Display Name Description Problem Type Effective Dates Data Source(s) 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 Problem 08/03/2020 12:00:00 AM EST eCW1 ([facility]) 853691396 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 Problem 09/12/2019 12:00:00 AM EST MEDENT ([facility]) E83.51 5109015 Hypocalcemia Problem 08/29/2019 12:00:00 AM EST eCW1 ([facility]) E83.51 [id number] Hypocalcemia Problem 08/29/2019 12:00:00 AM EST eCW1 ([facility]) E04.1 [id number] Thyroid nodule Problem 08/24/2019 12:00:00 A M EST eCW1 ([facility]) E04.1 [id number] Thyroid nodule Problem 08/24/2019 12:00:00 A M EST eCW1 ([facility]) N60.01 Solitary cyst of right breast Solitary cyst of right b reast Diagnosis 08/31/2020 11:28:37 AM [facility] Z12.31 Encounter for screening mammogram for ma lignant neoplasm of breast Encounter for screening mammogram for malignant neoplasm of breast Diagnosis 08/31/2020 11:28:37 AM [facility] R92.8 Other abnormal and inconclusive findings on diagnostic imaging of breast Other abnormal and inconclusive findings on diagnostic imaging of breast Diagnosis 08/31/2020 10:27:45 AM [facility] N63.10 Unspecified lump in the right breast, un specified quadrant Unspecified lump in the right breast, unspecified quadrant Diagnosis 021 10:27:45 AM [facility] R92.1 Mammographic calcification found on diag nostic imaging of breast Mammographic calcification found on diagnostic imaging of breast Diagnosis 08/31/2020 10:27:10 AM [facility] G89.29 Other chronic pain Other chronic pain Diagnosis 02/2020 03:12:04 PM [facility] M54.9 Dorsalgia, unspecified Dorsalgia, unspecified Diagnosi s 08/03/2019 03:12:04 PM [facility] M54.2 Cervicalgia Cervicalgia Diagnosis 08/03/2019 03:12:04 PM [facility] W18.00XA Striking against unspecified object with subsequent fall, initial encounter Striking against unspecified object with subsequent fall, initial encounter Diagnosis 08/03/2019 03:12:04 PM [facility] small increase of Rt intraventricular he morrhage small increase of Rt intraventricular hemorrhage Diagnosis 08/03/2019 03:12:04 PM [facility] Surgeries/Procedures Procedure Description Date Indications Data Source(s) CT THORAX W/O CONTRAST MATERIAL CT THORAX WITHOUT CONTRAST 7125 0 Routine 03/21/2020 12:27 PM EDT Pulmonary nodules 03/21/2020 12:27:33 PM EDT Pulmonary nodules [facility] Pulmonary nodules Fine Needle Aspiration Biopsy Inlcd Ultrasound Guidance 09/19/2019 12:00:00 AM EST MEDENT ([facility]) TRANS CARE MGMT 7 DAY DISCH 08/29/2019 12:00:00 AM EST eCW1 ([facility]) Annual wellness visit, includes a person alized prevention plan of service (pps), subsequent visit 08/15/2019 12:00:00 AM EST eCW1 ([facility]) IMMUNIZATION ADMIN 08/15/2019 12:00:00 AM EST eCW1 ([facility]) Shingrix 50mcg/0.5mL (Zoster) 08/15/2019 12:00:[address] eCW1 ([facility]) Annual alcohol misuse screening, 15 minutes 08/15/2019 12:00:00 AM EST eCW1 ([facility]) ARTHROCENTESIS ASPIR&/INJECTION MAJOR JT/BURSA 020 12:00:00 AM EST [facility] ([facility] ) CT LUMBAR SPINE W/O CONTRAST MATERIAL CT LUMBAR [place]O [place] CONTRAST [address] STAT 08/03/2019 5:31 PM EST 08/03/2019 10:31:23 [address] [facility] CT HEAD/BRAIN W/O CONTRAST MATERIAL CT HEAD WITHOUT CONTRAST 70 450 STAT 08/03/2019 5:31 PM EST 08/03/2019 10:31:05 PM [facility] PARTIAL THROMBOPLASTIN TIME (PTT) PARTIAL THROMBOPLASTIN TIME ( PTT) STAT 08/03/2019 3:56 PM EST 08/03/2019 08:56:00 PM [facility] PROTHROMBIN TIME PROTIME INR STAT 08/03/2019 3:56 PM EST 08/03/2019 08:56:00 PM [facility] BLOOD COUNT COMPLETE AUTO&AUTO DIFRNTL WBC COUNT CBC AND DIFFER ENTIAL STAT 08/03/2019 3:56 PM EST 08/03/2019 08:56:00 PM [facility] BASIC METABOLIC PANEL CALCIUM TOTAL BASIC METABOLIC PANEL STAT 08/03/2019 3:56 PM EST 08/03/2019 08:56:00 PM [facility] Results ID Date Data Source [id number] 09/04/2020 08:21:24 AM [facility] Name Value Range Interpretation Code Description Data Melanie rce(s) Supporting Document(s) Progress Note [facility] NGCNKl6vPbCIZiKq85/YVSyeKCTsq2VuPGqyFIu3YVgnLUMkP9UiCID8aM0pQBS6NJwWWsWmEzLiDdA1 lbm [file] NmEzOWIyYTFlZjI+UH1xXMy+Yj0Um5VcljM5cxNxLEluDJW7PJ6BXDLGI3GVMn== ID Date Data Source [id number] 09/04/2020 08:06:09 AM EST [facility] MAMMO DIGITAL DIAGNOSTIC RIGHT [id number] L RESULTInterpreted by:TIA Pond DIGITAL MAMMOGRAM WITH COMPUTER-AIDED DETECTION and TARGETED RIGHT BREAST ULTRASOUNDHISTORY: Short-term follow-up after benign right breast biopsy performed at outside facility. Short-term follow-up of mass seen on ultrasound outside facility. The patient reports family history of breast cancer in maternal aunt. The patient reports multiple benign left breast biopsies in the past.[facility] risk assessment model:5 year calculated risk: 2.2%Average [...] rce(s) Supporting Document(s) ID Date Data Source [id number] 09/04/2020 08:06:09 AM EST [facility] US BREAST INCLUDING AXILLA LIMITED RIGHT 44974HICER RESULTInterpreted by:TIA Pond DIGITAL MAMMOGRAM WITH COMPUTER-AIDED DETECTION and TARGETED RIGHT BREAST ULTRASOUNDHISTORY: Short-term follow-up after benign right breast biopsy performed at outside facility. Short-term follow-up of mass seen on ultrasound outside facility. The patient reports family history of breast cancer in maternal aunt. The patient reports multiple benign left breast biopsies in the past.[facility] risk assessment model:5 year calculated risk: 2.2%Average [...] rce(s) Supporting Document(s) ID Date Data Source [id number] 08/01/2020 04:00:[address] [facility]: 1955Provider: Hemant [...] up calling ambulance and was seen at [facility] in [place]. Ambulating with walker. Was given RX for Oxycodone but not taking. Patient states they are disabled. AssessmentReason for Visit:Left knee pain.Jose is a 64-year-old female disabled was seen by me two years ago for her knees. At that time, I felt it was more her back. She has been reasonably good up until this past K[place] when she had a direct injury to her knee and then developed this incapacitating pain. She was worked up in the [place] which included x-rays, CT scan and MRI [...] rce(s) Supporting Document(s) ID Date Data Source [id number] 07/22/2020 11:02:00 PM EST [facility] Name Value Range Interpretation Code Description Data Melanie rce(s) Supporting Document(s) SARS coronavirus 2 RNA [Presence] in Res piratory specimen by [facility] with probe detection [facility] This lab was ordered by [facility] a nd reported by [facility]. ID Date Data Source [id number] 03/28/2020 08:38:46 AM EDT [facility] Name Value Range Interpretation Code Description Data Melanie rce(s) Supporting Document(s) Progress Note [facility] ISDHQq7qPsKAHpUr67/RWXprMHKvm5YyDNgoEYk0IFajAFZdQ2OoEJM5oE7hPHT4NNlQGbTrVeUeMDIa [facility] [file] ICAgICAgICAgICAgICAgICAgICAgICAgICAgICAgIC AgICAgICAgICAgICAgICAgICAgICAgICAgICAgICAgICAgICAgICAgICANCiAgICAgICAgICAgICAgIC AgICAgICAgICAgICAgICAgICAgICAgICAgICAgICAgICAgICAgICAgICAgICAgICAgICAgICAgICAgIC AgICAgICAgICAgICAgICAgICAgICAgICANCiAgICAg ICAgICAgICAgICAgICAgICAgICAgICAgICAgICAgICAgICAgICAgICAgICAgICAgICAgICAgICAgICAg ICAgICAgICAgICAgICAgICAgICAgICAgICAgICAgICAgICANCiAgICAgICAgICAgICAgICAgICAgICAg ICAgICAgICAgICAgICAgICAgICAgICAgICAgICAgIC AgICAgICAgICAgICAgICAgICAgICAgICAgICAgICAgICAgICAgICAgICAgICANCiAgICAgICAgICAgIC AgICAgICAgICAgICAgICAgICAgICAgICAgICAgICAgICAgICAgICAgICAgICAgICAgICAgICAgICAgIC AgICAgICAgICAgICAgICAgICAgICAgICAgICANCiAg ICAgICAgICAgICAgICAgICAgICAgICAgICAgICAgICAgICAgICAgICAgICAgICAgICAgICAgICAgICAg ICAgICAgICAgICAgICAgICAgICAgICAgICAgICAgICAgICAgICANCiAgICAgICAgICAgICAgICAgICAg ICAgICAgICAgICAgICAgICAgICAgICAgICAgICAgIC AgICAgICAgICAgICAgICAgICAgICAgICAgICAgICAgICAgICAgICAgICAgICAgICANCiAgICAgICAgIC AgICAgICAgICAgICAgICAgICAgICAgICAgICAgICAgICAgICAgICAgICAgICAgICAgICAgICAgICAgIC AgICAgICAgICAgICAgICAgICAgICAgICAgICAgICAN CiAgICAgICAgICAgICAgICAgICAgICAgICAgICAgICAgICAgICAgICAgICAgICAgICAgICAgICAgICAg ICAgICAgICAgICAgICAgICAgICAgICAgICAgICAgICAgICAgICAgICANCiAgICAgICAgICAgICAgICAg ICAgICAgICAgICAgICAgICAgICAgICAgICAgICAgIC AgICAgICAgICAgICAgICAgICAgICAgICAgICAgICAgICAgICAgICAgICAgICAgICAgICANCjw/eHBhY2 lciOCckyE1E1xnHt9BLm2MBL3ai0KxERMxXFqjfpBhJjfGKyMoNYKzMypRTrc0MBeoDW4IxOItZ9ElH5 ChFIzqSM7GZJBwCBFxyONoHPFrJWBhItV6LSDaCHst JF5FlYDiNPwnBAYnJYUlRqQwZPPjVQSiWBMvXXKdXQJPEBMsINLvMqMpKRUpAQKyKO3NKXMzA626jtCz Eh0ZRj1FSeLwKK3nfo6EAhHxPEHgZicZLmi5EXbdHX7WeECozPSlGaDiCYOAEkLiZ5uar8DhIgQePFNU QJuoMO5Si6CogTYlBGl+Ug5LOV7ak4ZaUOoxHyRrMF 2dno2HICbSPeVtQ7WvfRwyEDRzw4cyXFJbXE0cyTLiMHO3ASFaxxQpB5D4pHYzJZQCRIBzaVZ5TwE0Bz KzLfQwITM4YJLjFL7nIHurXE9YSDD3QMqjMYSsXPMpP8pVSkDhACCzRXZxlCixBO5LAqSrO1PsdoOnmS AzNSAwIFINCj4+SNvwfpWdIdsAMaZ7HAHmp9SqSOn3 HD8QDTOlBHxfNT8GZAZxaZ7xJDzuGH1YUoOpWqJtVMMKOeJhI31hpFJsPPj7S3ZbZzTnQBOxSqtyCTNv PDwvTmFtZXMgWyBdDQogID4+ID4+KXgoUI0RCBmyaaIwCGNxJa5BAHBsTEPeSG3sHQDeTVBfQ3Q4mUau ZJWOOwDsV9aojpykNK0lGYLuE647vJhrvfZvDZX4ZU MxUx6ESZYlDNY3QQFatLCaXaVtXHLRNPctCC4HhTOfRQL1pU3hUGpqSOQqLPSmT5yKKvGcyRhcQW92zI wgbnVsbCBdDQo+Sz7HQC9mq7SbSNl4gdOsODxzSHD8GXvyOUSbMFFnUFZtXTO5LVT2LJRBXaKyIQIqMV UkCXloQFNvRHHnlp1DGJTaVKMaAyA5FEDlELEiWPGk XEfpMTYwTRC4AAHkNXLmJIFeIA4URiLoXMShHFFkKElmDOXbHUYvwo2RTRDsZBClLmc3ANQnUMFjXGFu UPenVYWdTJM2UHy9NQLeYWZwXM5KTgZlBXCeIUE5NtAeTWMyZPXwld0JIEElTXYiQdu5KVNoHUAhBKTt XCqtJEEkPSL9RVTjXBVoDTFzYI6JFvGyUNEjXDEfNu RwHMVcNYMsfn1VQEPrELQpVmOxMHNrSBCeGIXoJAqgIRCkAVOmHHL1LNQeDTJjPM4ULoAdLFDqZDB6HB miPKIwGDFrgz8XPDGoFPWsYfCxCCSrMREnPJBeWYqhKIEhAYF4JyljAHTnPCMhAS5TBsHuLMLtYMq6OZ emMXIuRIZgri8PQLUePWMpALJ9LfSmQSAtSLWlIGjo JSJcLNRaGoR6EGQlQFXhLJ6QSkLzUAGgSsE6HauqGYXbMYLulr9ZBBDlTCOuJPe2ApXsEXEoTPWjAHpn SULjXKOlASp8SBBdNFWoUX8NHsAkAWJsXrKbOkZnHNTpHBWbgw0CBNIhCBBvOodxYbMqKALtPIEzUKsu BEUnFSN9XIHzMURvOTOrMO5OGkDlBKKsEaMfOALuEM PbXRUpxh7CAMTlCQKkBOL9TWAeWURzDVTfQByvVPEqLLO9AvM0YXZjCSDhHO1MUkYgWFRnSvT6PmnmKQ BiFHBedo9SLUDhHGXtHYf3FQHpFTZqRRDaMZlwAWKdHMP8UJQ1IPIwKIAqHL6BRtExOKEkFgB7HQCiOS XePRRkfo5FLTJaFORmVjD0WAAxEKHuIYIzRXyhWSTg YKU4UeV3YLLbAOMqXA8QPyOyGRXxAnf6UBOmPMNtWJAspf5MIJXsMTJjNTP9YeLmUBDeEBHpUIivWEIh WIR8EmOpFKKtLEEeGS3TBsWrVXMxQtrqAqmtNEFdCNAswe5EaZVigElstp2IJOkICy4WcYvdUVF2YChk Ha7gkSHhRlNkUNNZYt0ByqOwNCWpNEEQRRikEHQdQL h9I4EtE0I5WoBrYLX9BNY7PCwiEuEhVAIsA6L7AIufLzU2KjHrZjNiLbA5GQF0RuC8TFCmRRUtFNTnSc M0Uun0LTL+FX0vYAo+Gf8Dw7YkkxJ3nyEdUYekGCUsUt9TOXQVN6KJQc== ID Date Data Source [id number] 03/21/2020 05:45:19 PM EDT [facility] CT THORAX WITHOUT CONTRAST [id number] RE SULTInterpreted by:Miguelito Soto, Alix Browne MDINDICATION: [...] rce(s) Supporting Document(s) ID Date Data Source [id number] 03/21/2020 01:49:05 PM EDT [facility] Name Value Range Interpretation Code Description Data Melanie rce(s) Supporting Document(s) Progress Note [facility] TOCMVg5aZuTUPrSd61/ETGrsOTTim4KtPLwpYPo9YKziBZVoJ6PoWQW4rQ3iQQR8LHwQVmPhVcIfDTA8 lbm [file] 8NQZYUT6TAZy== ID Date Data Source [id number] 03/21/2020 01:48:24 PM EDT [facility] Name Value Range Interpretation Code Description Data Melanie rce(s) Supporting Document(s) Progress Note [facility] AUJIMc2pQcASDfJr51/BJOqxLPThd2PnWIhiBIe5YOboWEAoN5WzGGL8qL9gMZD3XFpHMrPpPnUtGZJ9 lbm MaQhtPSmJlQOYxGclQQkSuSZckGexqvXVaQB8YeKE6KJFdA24fHBHbMIKnA2NnMTM1WOU+Zq5BSYKdnA VqHH4MRbhT2Zrwo+M2Ev5+eQ4DEhUC1kNULGnwmFUfuUaqz7fs3S1n3lWpS17yq2s9mbQemoMyC6YIej AWjOgK4zEQFQwAvIQgo7uOgMReBsZ65//EWMg4fgVI n+oyjDgbLdk//5Yaqg5dyrKFFmsrZ9ynV+op2hnLfB6YoDYpfdZZgqICv4dnvvYa1YGjPYHJO13Kg4f+ +wbdr6Iekm3dm0KlZ5eZbimWxp9qhGWK/7HrAXu/s0/LPy5mef9tWiURTN48soyAGDxsRfNlpiRPGHfl SIz7FERWLwc/enHZFyzlFwTNk6WaZZXp8UFr0Nx2oI XzOg+XAsur5iApOyyTbbg/kcc7klY9rFiCIrlsH9Vu96f+SulmhkdhUPsimvKTgrjA+vRRYuBWxO2IGN pmu0WdOCz41PS2eSco8/A8mQ+sGt59/OmkcKc0ItBckLkcUXK21tN3AXU5kIs6J8MULpNqXM5nS9/Diana [file] ICAgICAgICAgICAgICAgICAgICAgICAgICAgICAgICAgICAgICAgICAgICAgICAgICAgICAgICAgICAg ICAgICAgICAgICAgICAgICAgICAgICAgICAgICAgICAgICAgICAgDQogICAgICAgICAgICAgICAgICAg ICAgICAgICAgICAgICAgICAgICAgICAgICAgICAgIC AgICAgICAgICAgICAgICAgICAgICAgICAgICAgICAgICAgICAgICAgICAgICAgICAgDQogICAgICAgIC AgICAgICAgICAgICAgICAgICAgICAgICAgICAgICAgICAgICAgICAgICAgICAgICAgICAgICAgICAgIC AgICAgICAgICAgICAgICAgICAgICAgICAgICAgICAg DQogICAgICAgICAgICAgICAgICAgICAgICAgICAgICAgICAgICAgICAgICAgICAgICAgICAgICAgICAg ICAgICAgICAgICAgICAgICAgICAgICAgICAgICAgICAgICAgICAgICAgDQogICAgICAgICAgICAgICAg ICAgICAgICAgICAgICAgICAgICAgICAgICAgICAgIC AgICAgICAgICAgICAgICAgICAgICAgICAgICAgICAgICAgICAgICAgICAgICAgICAgICAgDQogICAgIC AgICAgICAgICAgICAgICAgICAgICAgICAgICAgICAgICAgICAgICAgICAgICAgICAgICAgICAgICAgIC AgICAgICAgICAgICAgICAgICAgICAgICAgICAgICAg ICAgDQogICAgICAgICAgICAgICAgICAgICAgICAgICAgICAgICAgICAgICAgICAgICAgICAgICAgICAg ICAgICAgICAgICAgICAgICAgICAgICAgICAgICAgICAgICAgICAgICAgICAgDQogICAgICAgICAgICAg ICAgICAgICAgICAgICAgICAgICAgICAgICAgICAgIC AgICAgICAgICAgICAgICAgICAgICAgICAgICAgICAgICAgICAgICAgICAgICAgICAgICAgICAgDQogIC AgICAgICAgICAgICAgICAgICAgICAgICAgICAgICAgICAgICAgICAgICAgICAgICAgICAgICAgICAgIC AgICAgICAgICAgICAgICAgICAgICAgICAgICAgICAg ICAgICAgDQogICAgICAgICAgICAgICAgICAgICAgICAgICAgICAgICAgICAgICAgICAgICAgICAgICAg GSGnHOPmQEViJSAoOKSsQSUbFNSgDIObHEIqEVSiKGIbTIZeEXXnLKPwNZRfRDErXRy4T3zgQNOmLWXk CZ1cVXh0Ff0+THwXGqIjZGM6ktPqjW4ARZ7jm2GaJI cnVKKmz0YbJOj2VH2ATFTpGLroQV9NDCarcs3CMAMeTUAaaCHHy7clYiFeOMP2DZZmIrnbKN2GYQRaM1 cdhpIoWVQlAJHRQR5YNrOxX7VggN54FRXIUt4+FVgapfWnTsyIKyJ3RQYzk2CoHRe9AI8LEPDjQhlkn6 YlQaOkTBMTSQxrIM2JADD6CFPzBFLzWq0VNJHtA028 bbEfAM0YAs6CCcUwJW7irl8XPyLyLINlBszNNzw0DMucIW5FzHIyLHcDth5yxnIpeuMZj6DhnyNcvJAL HMjrXZQfGzPwbnCcr5KeTYOLTV9dDKTyJR9aEn2lPYHwZRCaKuGjDGWOLC3HNAYcEAEqeEFrIEEmEGKO BA7WKPziYSA9CQWhdfGuqOHrSMpqWS4WJMCokkXzYX kgMCBSDQo+Tf6AKE8nm7AeYBrzJFFzXD8xxh9POHhZZkOoY8V1wTNdX6I2QLvsUs2MSDMqEJUxFUkgHI BKSKflIS7BEX6pazR5HH3PqBJmIQKiUPLwiJEhRWx2K36cqWZoFOjkIM3DNIF+Bello+Pt0NWTRmUSRiNC FpIuZdKHBDHyHdB8YjU5ZZx7HrO5VwDB01rPyodfFk JFekQU5DBS4lFNEhYSPXXE5GfYVkjJ7fdbPyXNLrTOFUAyNvU05lrFJxASFfQGI5GGPwIj8ARRQcD5So wcPekZiaqjRpCTEyPCWPIT9IACqsvhCjoNLvbTusJB98oBnfHX1MJk0AVpUdGG2gyk3PmCTxVi3JTPOm Bl8GDRAuWPAoLHMzJGV0CRIhJuBzXPuyVBIzBMQnFC M9WDLyOCBiNL6TPnUeOAIbJPd8HsJvHAZmKUZhlh8RJHQnVDQdQLM1YUCgQFTqSBYeCFfiVFWzFQFrTT O5PCXaJCGyNV1OApPuLKRtSMN1CVAdFRXsNSAagy8DDVGhHQVuAuh9KzHjOLIaEAZrDKbaUVZhTDSeRO E6TSZgCKMePQ0KSwQcVHEsVGVlCDOyQVCtYMDpgf5W QMTqPIBsXTZ6CAFgPDCbYHEfXAqcQNLgEMG4LCV0EUStCNCbDG0EXyEpHBKoKFJlRXHrKYZgQAGvga9D HKWrDOGyBCJdJIYwJKVhGMQqODyySHDqEZX5GWceRIOrGFIgLE9AAxAvUEHmDUqzBBosYPWfUEFhpf1S LFDmDNUtWfKbEZGyAAEgLNXeUJvdPIRpKRG0ElV3ZP TtVUKnCD5LFpVbTLPeMTy4AHYnSRUsZNEjum2BEPPhEUSsFRYtWBVcFSTyZGGnWKfkPCAwMEO2OfLbCS DwYFBaIJ1CZrMnJRAmVHg1MXEtWWGrCAPlaf1HGYEnXNGbNRo4HOFnBSIlVPGyDMc3tdYzwCFyXWc5NR 3BD5FgmcIwOhGZWv5Un277YEAvZAMrLd3OM8vsEm1g YNJpFKOBUu6KZMq9LjP1WJDsUiO7VYukCbVjCCBaOty9HtB9ObvnKZC6SLj+DVk4KQNoYFSjTmj6R3Cu OZGzZQAqCuw0CQIqGKQ8GKnaDU6rZIBCVf9+UDhozRUwyHgyEGUAEmOtRXR6SZjzCGPPFh7F ID Date Data Source [id number] 03/15/2020 10:06:58 AM EDT [facility] [place], [place] [address]Tel# SURGICAL PATHOLOGY REPORTPatient Name:OPAL CARNESOB:1955Received:03/14/2020Accession #:[id number](s) [...] By David Quevedo M.D. jzwPathology Associates [place], [place] [address]Technical component performed at [facility], Histopathology, [address] [place] [address], [id number].Reported at [facility], [address] [place] [address], [facility].This report may include immunohistochemical or in-situ hybridizationresults. Testing was developed and the performance characteristicsdetermined by [facility], as required byCLIA '88. The FDA has determined that approval for specific use is notnecessary for clinical use. The quality of Hematoxylin and Eosin stainsand as applicable, for all immunohistochemical and/or special stains,including positive and negative controls, were reviewed and consideredappropriate.ICD codes: R92.0 D24.1CPT4 codes: A: 94178GX: 97254D Name Value Range Interpretation Code Description Data Melanie rce(s) Supporting Document(s) ID Date Data Source [id number] 03/16/2020 08:41:00 AM EDT [facility] al DATE OF EXAM: 03/14/2020Addendum BeginsP athology [...] [facility] .Addendum EndsRight breast stereotactic biopsy. Clinical History: [...] interpretation performed at [facility] .End of diagnostic report for accession: [id number] Interpreted: David Hurst MDTranscribed: 03/14/2020 12:56 PMSigned: 03/16/2020 08:41 AM David Hurst MD [facility] # [id number] BILL # [id number] [place] Name Value Range Interpretation Code Description Data Melanie rce(s) Supporting Document(s) ID Date Data Source [id number] 03/16/2020 08:41:00 AM [facility] DATE OF EXAM: 03/14/2020Addendum BeginsP athology results reported on 03/15/2020: A) breast, right, core biopsy-focal changes of a fibroadenoma with associated microcalcifications. B) breast, right, core biopsy-benign breast parenchyma. These results are consistent with the findings at the time of biopsy. Routine followup with a postbiopsy mammogram in six months is recommended. Professional interpretation performed at Dr[facility] .Addendum EndsRight breast stereotactic biopsy. Clinical History: [...] interpretation performed at [facility] .End of diagnostic report for accession: [id number] Interpreted: David Hurst MDTranscribed: 03/14/2020 12:56 PMSigned: 03/16/2020 08:41 AM David Hurst MD [facility] ACC # [id number] BILL # [id number] [place] Name Value Range Interpretation Code Description Data Melanie rce(s) Supporting Document(s) ID Date Data Source [id number] 03/12/2020 08:46:36 AM EDT [facility] MAMMO DIGITAL DIAGNOSTIC RIGHT [id number] L RESULTInterpreted by:TIA Pond DIGITAL MAMMOGRAM HISTORY: [...] rce(s) Supporting Document(s) ID Date Data Source [id number] 03/02/2020 04:34:10 PM EDT [facility] Name Value Range Interpretation Code Description Data Melanie rce(s) Supporting Document(s) Progress Note [facility] QJFOUt4fOtKNWxTm31/JWTpfABXuj2EaMEmqMWi7IEybLBSwV6SqPJK8gL3kXIX2PKfXDgJlZhWrXLB0 lbm [file] F/x4/zho3Sy65R6JD2ya90NN+/V1zvJrJWmxF2j961ACBbKsKN6X0v9np0J7YC+executor of estate+f4S3UV/OPcSByv [file] MqrdC5rtNfSTa7DUupZI7DJDLAC7EPRv== ID Date Data Source [id number] 02/06/2020 08:36:07 AM EDT [facility] Name Value Range Interpretation Code Description Data Melanie rce(s) Supporting Document(s) Progress Note [facility] XKBGVp0oLoGZVwOw69/SCCurWAWhn5BzBXhlJGq8BLbdBLUwC8FsMFG9fK3pSRZ5GLbEOhYwVdScTsBc lbm [file] ekg tech+ikb4upuuyT79+2t8c3jDCGEdZ8clv29r2PYg+e2ZskvhFEwpGAQARp4p1GWNXCDv6XUxD2T60pYK cpdAx2H7qFpTXcDiUE7gRNdcFxWiiUp8p3QQQvLQc/uHDyqpozAP9lHVzoasp7p28mHy+Ax80keRlysj aMj3HsxUy6y8AqEkZkGJy3v1fRXQckuE2HCA3F22u+ Senjcij74CK7iimJ1DMjwl2RGFtQrHrRlwr+YGvfXG6rRR4WrGabxcX5F3TCYV0AkMNHRm2Nf9hQsiq5 CVVaOgfgqYMH41Cf22JFaGHlnZbaG7L4nv57b/tve+Zsm1OOaY4KWYgKVR+GD54XwVvRneAfTrrd+cGG IQTp1y3ZBj23B4xxrRRIv6BSuNcrWQxe6NAiHNE1gm 9hbiol0lL69aJ1q14hYHhNPpA1ltPOty2peMc2bFl1ft7F8adZ58d0myisEHv/HZ4IOIIv31q02UGsT+ ZpjHYCcXaGqgLExWDoBNrsvZLDTNRw2trfDo+cVemWdBJMJwtK1VPhCFl43P0G9rXyTwO/VWGmPXxLCv xYf2XgLwN9AHyqfqzgfOLZuwPVAb7lBchbb1ZL2xqt QRWKtXy2lc4KxYCgSzH2LMUjq3UAgzIitfQMjCD7MFVOVwu0XWBIBTs8ZywQYcqtERzOJkw+NJCH4VV4 kKk+seiMejOakrR0HnN3llahugxqLcyhsSXu5DdMAii2II/uy3h+D6YTgAeBqRFMWFE6fYnumQw4ClVN wqeJYPH5AnvdNIEN3CwPB/I4M6zy+e+ZMIxjoH8k9/ MvSHSA0u+thania/iuRn1H/gI44fvZhF2Z72iDoYFP0z9/RmU7aN/6gfG6mhVa+uoQb2YyKyvfxf50agDgM [file] fyCVoNFvFuDV5MUDi= ID Date Data Source [id number] 02/06/2020 08:30:34 AM T [facility] MAMMO DIGITAL SCREENING BILATERAL [id number] INAL RESULTInterpreted by:Ashkan Haywood MDBILATERAL DIGITAL MAMMOGRAM WITH COMPUTER-AIDED DETECTION and TARGETED RIGHT BREAST ULTRASOUNDHISTORY: The patient reports family history of breast cancer in maternal aunt. The patient reports benign left breast biopsies.[employer] [facility] [employer] risk assessment model:5 year calculated risk: 2.2%Average [...] rce(s) Supporting Document(s) ID Date Data Source [id number] 02/06/2020 08:30:34 AM [facility] US BREAST INCLUDING AXILLA LIMITED RIGHT [id number] RESULTInterpreted by:Ashkan Haywood MDBILATERAL DIGITAL MAMMOGRAM WITH COMPUTER-AIDED DETECTION and TARGETED RIGHT BREAST ULTRASOUNDHISTORY: The patient reports family history of breast cancer in maternal aunt. The patient reports benign left breast biopsies.[employer] [facility] [place] [facility] risk assessment model:5 year calculated risk: 2.2%Average [...] rce(s) Supporting Document(s) ID Date Data Source [id number] 09/19/2019 06:11:00 AM EST [facility] ([facility] ) Name Value Range Interpretation Code Description Data [facility] rce(s) Supporting Document(s) Microscopic observation [Identifier] in Unspecified specimen by Non- gynecological cytology method (SEE NOTE) [facility] ([facility]) SPECIMEN: FNA Left lower pole thyroid nodule Specimen received in Cytolyt SPECIMEN ADEQUACY: Satisfactory for evaluation CATEGORIZATION: Benign DESCRIPTIONS: Groups of follicular cells noted, some exhbiting hurthle cell changes. The background consists of rare macrophages and few lymphocytes. COMMENTS: 09/20/2019 - 0849 Signed CORNELIA JOY(ASCP) 09/20/2019 0849 (Prelim) Signed Rl Slade MD 09/20/2019 1638 ID Date Data Source [id number] 08/04/2019 04:58:28 PM [facility] Name Value Range Interpretation Code Description Data [facility] rce(s) Supporting Document(s) [facility] EIZZTu6zNbOIErCs65/TGVozVQHhs6JrKKrgEBi3JEcuXVHlE0XbEKL9kN4gCJF4IHyLMdRhYrEhCAJ6 [facility] [file] disposition clerk+SPb5nZH4zyHp+ygdET+hIegxlXrL9dIyjt2qHDf4elLSEjFRi/MGzcVyzW/lWwlhfXtjxTEQ6frk/ [file] E+DQogICAgICAgICAgICAgICAgICAgICAgICAgICAgICAgICAgICAgICAgICAgICAgICAgICAgICAgIC AgICAgICAgICAgICAgICAgICAgICAgICAgICAgICAg ICAgICAgICAgICAgDQogICAgICAgICAgICAgICAgICAgICAgICAgICAgICAgICAgICAgICAgICAgICAg ICAgICAgICAgICAgICAgICAgICAgICAgICAgICAgICAgICAgICAgICAgICAgICAgICAgICAgDQogICAg ICAgICAgICAgICAgICAgICAgICAgICAgICAgICAgIC AgICAgICAgICAgICAgICAgICAgICAgICAgICAgICAgICAgICAgICAgICAgICAgICAgICAgICAgICAgIC AgICAgDQogICAgICAgICAgICAgICAgICAgICAgICAgICAgICAgICAgICAgICAgICAgICAgICAgICAgIC AgICAgICAgICAgICAgICAgICAgICAgICAgICAgICAg ICAgICAgICAgICAgICAgDQogICAgICAgICAgICAgICAgICAgICAgICAgICAgICAgICAgICAgICAgICAg ICAgICAgICAgICAgICAgICAgICAgICAgICAgICAgICAgICAgICAgICAgICAgICAgICAgICAgICAgDQog ICAgICAgICAgICAgICAgICAgICAgICAgICAgICAgIC AgICAgICAgICAgICAgICAgICAgICAgICAgICAgICAgICAgICAgICAgICAgICAgICAgICAgICAgICAgIC AgICAgICAgDQogICAgICAgICAgICAgICAgICAgICAgICAgICAgICAgICAgICAgICAgICAgICAgICAgIC AgICAgICAgICAgICAgICAgICAgICAgICAgICAgICAg ICAgICAgICAgICAgICAgICAgDQogICAgICAgICAgICAgICAgICAgICAgICAgICAgICAgICAgICAgICAg ICAgICAgICAgICAgICAgICAgICAgICAgICAgICAgICAgICAgICAgICAgICAgICAgICAgICAgICAgICAg DQogICAgICAgICAgICAgICAgICAgICAgICAgICAgIC AgICAgICAgICAgICAgICAgICAgICAgICAgICAgICAgICAgICAgICAgICAgICAgICAgICAgICAgICAgIC AgICAgICAgICAgDQogICAgICAgICAgICAgICAgICAgICAgICAgICAgICAgICAgICAgICAgICAgICAgIC AgICAgICAgICAgICAgICAgICAgICAgICAgICAgICAg JMOqVHIzNNUcRFYfUKRpMPAsLMDoMRi9O6ynECAfBRCfZD4lEYp8Zi0+OMhWFkMzGYA3chHpmL2WRI7r v9PxGKqxSJDir0CcYTr8GH4IGFXyIQqyTY7VKBgpht4REDDcAZBzbGJPn1ovHeDiWFZ7LKIuLamzIS2N XIXxR9zrqyReHIXtOZNWJGynSKXXLUtuMLGNWCMzMS YmClMhBlIpOZTnVO6YEBDbJ966chDhBY9SXz6MJhJoXT3iul8NYpDwHBMtRegJKrd4FWfsBW8QfQDozG MzRfFqSMIOSrBeF9qmj8AzApXoKTSHALtmBA7Rw0BlmULqPZg+Ol9OEG6dz2ShSXwuXjBfTC9tju4XVV sTYoRvK8EvjJvdMRPoepL2zRFiDTS0HDCgUM9ms62i SPMFwHxmfZ0os29gNU2TNBJ0CUQmAC3tHSNxVOK7YhYaNXJHUG4QXUZoXJIuuPOmJOFpAGUTOF8CZWtn PGK2MLIxjoUmaBNgDZasSY1LMJRwxgEnAbAsLYWMJSq+Mf2QMQ6tc0IjPJmbQiFhSK9iky1NHKiUZhBd A8E7zHMnV8B3HBrbGe5BPMErLQNgVjIcBAJMWBltPO 4PJR4ablH3ZO5PnDLxVIBkLRMgzLNlHCl7H30udMTeEOahKC7AATB+Bello+Lu1JLFUvGYGgOVVvQqCyKM AWIrWrC7LkZ0UFb7JtV8CkYK21yCmymlFsBOfuOR0ISV4yIEJhIEOTZI6UxOLwoQ4bnnGjATCfYQCAIj HvB50kdWNeWIOmNRL4RJUiCi2TQIPcB4GucyQvtXsn vdJgJKCzVPKCMZ6GVUycjbHblMKgrToqXP13yWuqER3OPe3TIgTbFB8rim9ApXGnVb0RGDOiGZ7PJLHz BAPfOIFgWPO9QFDaKzGuZUzwBIPpFNDbRTK4RCDhQNHnOH7UNuPfMYUqSRV6NBGhMLUsRYElcf3SDDLd DAP0TeQ4CTYwILQyZCYoOBccKJOhTOJlSIR3TJItLB PvLX5VMlDaVKVwYNXaUJaxLOKmFOVjor7GRQYfKLLlIqDiZnTfHCMwBPTySJpgDWSkCUB8NWDuVGXiPM FvGU3ONkNuSBErVTVpCyCtSBNqWBFami8RXEUoOYLqGPZ3URHrWIWfGWWtUDcfTQJkKHS1PXCaAIDcPE HuOQ2RPyGaYSEiDOA5SYBiQOPiQPYvaq7QDPQwWJWw RVSmNwMrUFXkJUKhKEduKGWjJTYuLwe9XDOjLKTlJL4OMlScFUToJMG3NTZwGMBmVJUdsh9VKRIsRRLb Zuc0MbBaQQSfJPMsNEytQBIuEUJlNVXmSTEdHFPnTZ9TTmXdBJFjTVAbWZAmSUSjGOQdwz0RXLRmCAEn DVFuCyHyHFRoKSPgAPhhZBByXJQ4EIQ7SYJhKXShJS 1LTcKlURKoCSD2ZAUrPFWeFGCzwk7DTMAoINLgQHY3QkLvELVcFZFgEWzrITFoYZI6QqC7ECXvETTuRE 8SXhQlCXXlNWH5QjFcDBDgEKDzuo5QLSStICVkWxWoZfLhJKDqMHOdOUmoXOTxXHW0FeS2LTAsRCYuEX 8CHjNuMDFxOmj3YLGsWPJnUCVqlh7DYRLpCFZtEEO9 QwNvTVLgROPvYKsuPCLlJIF5FeE0VXKeSFCdXQ3ROpUrFARySnwnRaEvEGJiIUMaen0WSYElZWFgCIF7 TQMhYOQwKIKyYIctGGUuAJL0QWZ4WNZsQTIcRZ5PUsEqBTAkBvj7DNiwPEUnBRLpbd1EOGJnLFV7KKW8 ZTSjABLuRVSrIJxeGWEaBDArQBA9ERYgYAGvUF3KOj KvEGHvUMR3AYltGSUfAAMhay7DMEYeVTC5IbV0LTHdIDJpYXYwMTciHNXzFSCfWfR1MCNiMHPyUE1QYk XsFImqLNORYjj3ILciQ6k8JDRrOI8GB5Raw3AgSxncEQPZBLyyIF1bjdIjUUXsZy2QI4fAIyb5KuO7VP QoPvU7KNGxYOY2EuV3WQujWlFsAfLdNkOyRG9mNEtt ZBDdAVIfZcy6WVO3HNu8HLY4XRH5GrKsNRKcHXC3TzWfQZ5WYf3MZtS9QJN2sUAiXq8MHLO7UOOYQrMw TO2HWZp= ID Date Data Source [id number] 08/03/2019 06:59:48 PM [facility] CT HEAD WITHOUT CONTRAST [id number] RESU LTInterpreted by:Jimena Plunkett MDINDICATION: Transferred from [facility] with worsening intracranial bleed after falling several weeks ago..TECHNIQUE: Contiguous axial CT images of the head from the base of the skull to the vertex without IV contrast. Automated dose lowering techniques and/or adjustment according to patient size were utilized for this exam.COMPARISON: CT head from [facility] dated 08/03/2019.FINDINGS: High density material within the [...] rce(s) Supporting Document(s) ID Date Data Source [id number] 08/03/2019 06:57:26 PM EST [facility] Name Value Range Interpretation Code Description Data [facility] rce(s) Supporting Document(s) ED Provider Note [facility] MYPMCn8xTgSXGlRy33/TELivGMTko9OvYRmaIMj9ZMiyHDOeD5MqEBX7lX0iWNJ1QByOPyUdHfQcGZU1 lbm [file] 3YQT5dxjM2LO6McSKeXMAkBAHivUQlVOi1H88mfOXrMMjdCU3EADB+Bello+Il9QMRLtTCIpOTYoGdCmYX SIBqXjT0HnE7NBx8UdG9WpCE16wCoepgUmPAquMA7Z UM9sFQQwBYPEJN9JjGSbrT1nxtQ5UrNiYZLMYpMyU70qbBWeTJAeTYL3PBVmZz3LHCTcS8VnrgNbpWpm vcSnNLZsVUKKYU6UTHtllnLubYRxsFqjVC15mZyqTP4ASh9NEhQtNP3qqy3RrPKqLu6TSIQ1Fp8SJLQg VHUaXBQuJWP4AAQmGjZoOCmgHHQfSYZtKRD2RHYaUA JdQS1OByAmGSMjLBYzKtEuKBEuHOLswt9TAAUzKUI0ElNkRRKbYDGaGRVdNHqhGJTxOPYeHWS8ITDmCM AxXG7ZVyFcRTBgHAZjScXuHFEoFIHcpy9RHEZuFRWxHpAdYVUyBFVtBKUbTXkqYWBaYQL2ZytzUWWiKL RcSF8FTnDbMBGySCO1VyrdXLHkJTYlwi3VZRYgEDYv ZNL9NQIhLNFiKGToGYtwYRTiZCO6UTu4TYHoEUFvFD2DPnYmRHCuEYX9SmChKVIeZXYppx6XMQWdPMWt ZGx5HwVwIIBdAEReRWgkLQMtSTS2RjY3OQJdQGYmMU4BZoCePMIiCGY9CKDtLRHgWLMtku2TISRbZHVd EwV3TIQmDIIoKFLdRStrZABgRCE5SCZ2SHPcNGAiKL 9VJfRgJFLvEpBtZBHmSHMnFMLiec5MIKWcLGYaIHW3MLErQAGzJQDdVQxcEJNaIBEuSHCvPNUwKAGiCI 2QEcKkUEJhPxChYjDoLYMjPAVzlm1TENZdQJCkLoH2OFFgKFCuXWCaHAhqVZCuDNM7NdA4UKAaVNCgCR 0FWyHeTVKjSffmJCMrAJEsECTjmd7WSIOqAGLyGWM5 BMCpMOClHBPqFMzgUEDqQTYnXKIqVRJsGARhRB9BCqRrJXZsBjG8APqyNAVpOJSkth0YTFRcIGFmFeV8 DDAnQSVfDMOwNZzoQKUuEONiYdGmQIOhMPQpRL2VZdKjVZSiBtM5PaZaNUNkJXAtft4FGQIfNLHrUAhz AjByHPKoHRYjLZcsBNAbLAY2TMCsSZOhKYMpDF6BJj KuNRGqMaM8WYkyRECtTUBgyz0NBCBnUGSaJvU1QONzLSNlEJFvPPqyHJJiNDU9TcL3KSZsCYAtNI8HQu YhDKWeWPb3ZpTmNJKeKJAdho7PZDSmZGP6NVG5NqPwIHViZEAjYBfdSUEhYKF4StOoRQFuFWVcBX1BTj XfVXOmAXf3BSHmGOMhTGNlkh5WSSYpNPJ3CAS1XgBs UPQsKMTyYThhDHLfETA6REcwRKHbHZWkYX6ENqJqCLRnVHl1ZclbYVJxXFNqht6OWUHkQKU3TIn6DkTq SHEsZVZcCOqeJYGtEUGvAPXtFNFeTIXsBQ8ECiNmNZNmNXGyIFInQMKmCHJkzg1NCXGlONV7RKA9CvOc JDRvIGZmVQswEJPkSONeHid9FHViBFBrMO4DVnSxIV PjFLZoFAplRQXiNGYyot7CWLCuPBJ8KaB7LRVpQWWtBFSpUVsxXHIkNPDpQQK1GWPuLUOvDT3IMfEbLY FvXNL8WpReYQAiLNZghk0ZOVJkNJN3Plx8DOBkNZQcSIZoXTc1kfMldEPtMEh2US2WK7TosnGeTDWOYs 9Qr138PZGmHPGaXc6PZ9wdYj3nGBIfSIYHJw2ZIWc3 QICdF9GpFGs7LHDiGOTvNnZ9ADVcYnK7RrXiXUZ6YmJ+FKajSfUuUxWtSLd6XZLqFCNxOsluTkOaZxWm MsRfNNFiRP8iFCOZRx2+PFixdULvfQwyOARXThY3BNJ0RKmjKQLQIa2I ID Date Data Source [id number] 08/03/2019 06:53:12 PM [facility] CT LUMBAR SPINE WITHOUT CONTRAST [id number] NAL RESULTInterpreted by:Jimena Plunkett MDINDICATION: 63-year-old female [...] the L1 vertebral body which exhibits a xzzu-rid-rtuvqd appearance and based on comparison with MR [...] rce(s) Supporting Document(s) ID Date Data Source [id number] 08/03/2019 04:20:39 PM [facility] Name Value Range Interpretation Code Description Data [facility] rce(s) Supporting Document(s) Leukocytes [#/volume] in Blood by Automated count 5.9 10*3/uL 4-10 [facility] Erythrocytes [#/volume] in Blood by Automated count 3.72 10*6/uL 4.1- 5.3 L [facility] Hemoglobin [Mass/volume] in Blood 12.3 g/dL 11.5-15.5 [facility] Hematocrit [Volume Fraction] of Blood by Automated count 36.5 % 3 6-45 [facility] Erythrocyte mean corpuscular volume [Entitic volume] by Auto mated count 98.1 fL 80-96 H [facility] Erythrocyte mean corpuscular hemoglobin [Entitic mass] by Automated count 33.1 pg 27-33 H [facility] Erythrocyte mean corpuscular hemoglobin concentration [Mass/volume] by Automated count 33.7 g/dL 32.0-36.[facility] distribution width [Ratio] by Automated count 14.3 % 11.5-14.5 [facility] Platelets [#/volume] in Blood by Automated count 95 10*3/uL 150-400 L [facility] Differential cell count method - Blood [facility] Neutrophils/100 leukocytes in Blood by Automated count 62 % [facility] Lymphocytes/100 leukocytes in Blood by Automated count 24 % [facility] Monocytes/100 leukocytes in Blood by Automated count 10 % [facility] Eosinophils/100 leukocytes in Blood by Automated count 3 % [facility] Basophils/100 leukocytes in Blood by Automated count 1 % [facility] Neutrophils [#/volume] in Blood by Automated count 3.71 10*3/uL 1.8-7 .0 [facility] Lymphocytes [#/volume] in Blood by Automated count 1.40 10*3/uL 1.2-4 .0 [facility] Monocytes [#/volume] in Blood by Automated count 0.62 10*3/uL 0-0.8 [facility] Eosinophils [#/volume] in Blood by Automated count 0.17 10*3/uL 0-0.5 [facility] Basophils [#/volume] in Blood by Automated count 0.04 10*3/uL 0-0.2 [facility] Nucleated erythrocytes/100 leukocytes [Ratio] in Blood by Automated count 0 /100{WBCs} 0-0 [facility] ID Date Data Source [id number] 08/03/2019 04:36:07 PM [facility] Value Range Interpretation Code Description Data Melanie rce(s) Supporting Document(s) Prothrombin time (PT) 12.9 s 12.5-14.9 [facility] INR in Platelet poor plasma by Coagulation assay 0.94 [facility] Routine intensity oral anticoagulation I NR is typically 2.0-3.0. Target INR must be clinically individualized. ID Date Data Source [id number] 08/03/2019 04:36:07 PM [facility] Value Range Interpretation Code Description Data Melanie rce(s) Supporting Document(s) aPTT in Platelet poor plasma by Coagulation assay 30.0 s 24.0-34. 0 [facility] ID Date Data Source [id number] 08/03/2019 04:49:30 PM [facility] Value Range Interpretation Code Description Data Melanie rce(s) Supporting Document(s) Bicarbonate [Moles/volume] in Serum 25 mmol/L 22-29 [facility] Chloride [Moles/volume] in Serum or Plasma 97 mmol/L 98-107 L [facility] Creatinine [Mass/volume] in Serum or Plasma 5.83 mg/dL 0.50-0.90 H [facility] Glucose [Mass/volume] in Serum or Plasma 85 mg/dL 70-140 [facility] Potassium [Moles/volume] in Serum or Plasma 5.0 mmol/L 3.4-5.1 [facility] Hemolyzed Sodium [Moles/volume] in Serum or Plasma 139 mmol/L 136-145 [facility] Urea nitrogen [Mass/volume] in Serum or Plasma 28 mg/dL 8-23 H [facility] Anion gap 3 in Serum or Plasma 17 mmol/L 8-15 H [facility] Osmolality of Serum or Plasma by calculation 293 mosm/kg 275-300 [facility] Creatinine/Urea nitrogen [Mass Ratio] in Serum or Plasma 5 [facility] Calcium [Mass/volume] in Serum or Plasma 9.3 mg/dL 8.8-10.2 [facility] Glomerular filtration rate/1.73 sq M pre dicted among non-blacks [Volume Rate/Area] in Serum or Plasma by Creatinine-based formula (MDRD) 7 mL/min/1.73m2 >60 L [facility] Glomerular filtration rate/1.73 sq M pre dicted among blacks [Volume Rate/Area] in Serum or Plasma by Creatinine-based formula (MDRD) 8 mL/min/1.73m2 >60 L [facility] Procedure Social History Code Duration Value Status Description Data Source(s ) Alcohol intake 08/31/2020 12:00:00 AM EST Current non-d marisa of alcohol (finding) completed Current non-drinker of alcohol (finding) [facility] Tobacco use and exposure 08/31/2020 12:00:00 AM EST Never used co mpleted Never used [facility] Cigarette pack-years 08/31/2020 12:00:00 AM EST UNK completed [facility] Cigarettes smoked current (pack per day) - Reported 08/31/19 12:00:00 AM EST UNK completed [facility] Smoking 08/31/2020 12:00:00 AM EST Former smoker completed Former smoker [facility] Smoking 08/03/2020 12:00:00 AM EST Former Smoker completed Former Smoker eCW1 ([facility]) Alcohol intake 03/21/2020 12:00:00 AM EDT Current non-d marisa of alcohol (finding) completed Current non-drinker of alcohol (finding) [facility] Alcohol intake 02/20/2020 12:00:00 AM EDT Current non-d marisa of alcohol (finding) completed Current non-drinker of alcohol (finding) [facility] Cigarette pack-years 02/20/2020 12:00:00 AM EDT UNK completed [facility] Cigarettes smoked current (pack per day) - Reported 02/20/20 20 12:00:00 AM EDT UNK completed [facility] Smoking 02/20/2020 12:00:00 AM EDT Former smoker completed Former smoker [facility] Smoking 02/09/2020 12:00:00 AM EDT Former Smoker completed Former Smoker eCW1 ([facility]) Smoking 02/09/2020 12:00:00 AM EDT Former Smoker completed Former Smoker eCW1 ([facility]) Smoking 02/09/2020 12:00:00 AM EDT Former Smoker completed Former Smoker eCW1 ([facility]) Smoking 02/09/2020 12:00:00 AM EDT Former Smoker completed Former Smoker eCW1 ([facility]) Smoking 02/09/2020 12:00:00 AM EDT Former Smoker completed Former Smoker eCW1 ([facility]) Smoking 02/09/2020 12:00:00 AM EDT Former Smoker completed Former Smoker eCW1 ([facility]) Smoking 02/09/2020 12:00:00 AM EDT Former Smoker completed Former Smoker eCW1 ([facility]) Smoking 02/09/2020 12:00:00 AM EDT Former Smoker completed Former Smoker eCW1 ([facility]) Smoking 02/09/2020 12:00:00 AM EDT Former Smoker completed Former Smoker eCW1 ([facility]) Smoking 02/09/2020 12:00:00 AM EDT Former Smoker completed Former Smoker eCW1 ([facility]) Smoking 02/09/2020 12:00:00 AM EDT Former Smoker completed Former Smoker eCW1 ([facility]) Alcohol intake 02/03/2020 12:00:00 AM EDT Current non-d marisa of alcohol (finding) completed Current non-drinker of alcohol (finding) [facility] Cigarette pack-years 02/03/2020 12:00:00 AM EDT UNK completed [facility] Cigarettes smoked current (pack per day) - Reported 02/03/20 12:00:00 AM EDT [facility]K [facility] Sm[facility] 02/03/2020 12:00:00 AM EDT Former smoker completed Former smoker [facility] Smoking 09/25/2019 12:00:00 AM EST Former Smoker completed Former Smoker eCW1 ([facility]) Smoking 09/25/2019 12:00:00 AM EST Former Smoker completed Former Smoker eCW1 ([facility]) Alcohol intake 08/03/2019 12:00:00 AM EST Current non-d marisa of alcohol (finding) completed Current non-drinker of alcohol (finding) [facility] Cigarette pack-years 08/03/2019 12:00:00 AM EST UNK [facility] Cigarettes smoked current (pack per day) - Reported 08/03/19 12:00:00 AM EST UNK completed [facility] Smoking 08/03/2019 12:00:00 AM EST Former smoker completed Former smoker [facility] Vital Signs ID Date Data Source UNK Name Value Range Interpretation Code Description Data Source(s) Oxygen saturation in Arterial blood by Pulse oximetry 91 % 91 % [facility] ([facility]) Body mass index (BMI) [Ratio] 34.4 kg/m2 34.4 k g/m2 [facility] ([facility]) Body weight 176.12 [lb_av] 176.12 [lb_av] [facility] ([facility]) Body height 60 [in_i] 60 [in_i] [facility] ([facility]) 5'0" Heart rate 61 /min 61 /min [facility] ([facility]) Diastolic blood pressure 64 mm[Hg] 64 mm[Hg] [facility] ([facility]) Systolic blood pressure 110 mm[Hg] 110 mm[Hg] [facility] Oxygen saturation in Arterial blood by Pulse oximetry 96 % 96 % [facility] ([facility]) Body mass index (BMI) [Ratio] 33.7 kg/m2 33.7 k g/m2 [facility] ([facility]) Body weight 172.44 [lb_av] 172.44 [lb_av] [facility] T ([facility]) Body height 60 [in_i] 60 [in_i] [facility] ([facility]) 5'0" Heart rate 100 /min 100 /min [facility] ([facility]) Diastolic blood pressure 86 mm[Hg] 86 mm[Hg] [facility] ([facility]) Systolic blood pressure 126 mm[Hg] 126 mm[Hg] M [facility] ([facility]) Oxygen saturation in Arterial blood by Pulse oximetry 97 % 97 % [facility] ([facility]) Body mass index (BMI) [Ratio] 33.7 kg/m2 33.7 k g/m2 [facility] ([facility]) Body weight 172.50 [lb_av] 172.50 [lb_av] [facility] T ([facility]) Body height 60 [in_i] 60 [in_i] [facility] ([facility]) 5'0" Heart rate 99 /min 99 /min [facility] ([facility]) Diastolic blood pressure 62 mm[Hg] 62 mm[Hg] [facility] ([facility]) Systolic blood pressure 136 mm[Hg] 136 mm[Hg] M EDENT ([facility]) Diastolic blood pressure 70 mm[Hg] 70 mm[Hg] eCW1 ([facility]) Systolic blood pressure 118 mm[Hg] 118 mm[Hg] e CW1 ([facility]) Body temperature 97.1 [degF] 97.1 [degF] eCW1 ( [facility]) Respiratory rate 18 /min 18 /min eCW1 ([facility]) Heart rate 128 /min 128 /min eCW1 ([facility]) Body mass index (BMI) [Ratio] 32.33 kg/m2 32.33 kg/m2 eCW1 ([facility]) Body height 62 [in_us] 62 [in_us] eCW1 ([facility]) Body weight Measured 176.8 [lb_av] 176.8 [lb_av ] eCW1 ([facility]) Diastolic blood pressure 76 mm[Hg] 76 mm[Hg] [facility] [facility] Systolic blood pressure 122 mm[Hg] 122 mm[Hg] e CW1 ([facility]) Body temperature 97.2 [degF] 97.2 [degF] eCW1 ( [facility]) Respiratory rate 20 /min 20 /min eCW1 ([facility]) Heart rate 116 /min 116 /min eCW1 ([facility]) Body mass index (BMI) [Ratio] 31.16 kg/m2 31.16 kg/m2 eCW1 ([facility]) Body height 62 [in_us] 62 [in_us] eCW1 ([facility]) Body weight Measured 170.4 [lb_av] 170.4 [lb_av ] eCW1 ([facility]) ID Date Data Source [id number] 08/31/2020 11:51:39 AM [facility] Name Value Range Interpretation Code Description Data Source(s) PREFERRED NAME Maryjo Maryjo [facility] ID Date Data Source [id number] 08/31/2020 11:51:23 AM [facility] Name Value Range Interpretation Code Description Data Source(s) PREFERRED NAME Maryjo Maryjo [facility] ID Date Data Source [id number] 08/31/2020 11:51:23 AM [facility] Name Value Range Interpretation Code Description Data Source(s) PREFERRED NAME Maryjo Maryjo [facility] ID Date Data Source [id number] 09/04/2020 08:21:24 AM [facility] Name Value Range Interpretation Code Description Data Source(s) WEIGHT RECORDED 176 lb 176 lb [facility] Body height Measured 60 in 60 in [facility] PREFERRED NAME Maryjo Maryjo [facility] PREFERRED NAME Maryjo Maryjo [facility] ID Date Data Source [id number] 09/04/2020 08:06:09 AM [facility] Name Value Range Interpretation Code Description Data Source(s) PREFERRED NAME Maryjo Maryjo [facility] PREFERRED NAME Maryjo Maryjo [facility] ID Date Data Source [id number] 09/04/2020 08:06:09 AM EST [facility] Name Value Range Interpretation Code Description Data Source(s) PREFERRED NAME Maryjo Maryjo [facility] PREFERRED NAME Maryjo [facility] ID Date Data Source [id number] 03/28/2020 08:38:46 AM EDT [facility] Name Value Range Interpretation Code Description Data Source(s) WEIGHT RECORDED 183 lb 183 lb [facility] Body height Measured 60 in 60 in [facility] ID Date Data Source [id number] 03/02/2020 04:34:10 PM EDT [facility] Name Value Range Interpretation Code Description Data Source(s) WEIGHT RECORDED 178 lb 178 lb [facility] Body height Measured 60 in 60 in [facility] ID Date Data Source [id number] 03/12/2020 08:46:36 AM EDT [facility] Name Value Range Interpretation Code Description Data Source(s) WEIGHT RECORDED 177 lb 177 lb [facility] Body height Measured 60 in 60 in [facility] ID Date Data Source [id number] 02/06/2020 08:36:07 AM EDT [facility] Name Value Range Interpretation Code Description Data Source(s) WEIGHT RECORDED 177 lb 177 lb [facility] Body height Measured 60 in 60 in [facility] ID Date Data Source [id number] 08/05/2019 07:42:49 AM EST [facility] Name Value Range Interpretation Code Description Data Source(s) WEIGHT RECORDED 165 lb 165 lb [facility] Body height Measured 60 in 60 in [facility] Patient Treatment Plan of Care Planned Activity Planned Date Details Description Data Source (s) Acetaminophen 325 MG / Oxycodone Hydrochloride 5 MG Or al Tablet 08/23/2020 12:00:00 AM EST eCW1 ([facility]) Acetaminophen 325 MG / Hydrocodone Bitartrate 5 MG Ora l Tablet [Mustang] 07/19/2020 12:00:00 AM EST eCW1 ([facility]) Acetaminophen 325 MG / Hydrocodone Bitartrate 5 MG Ora l Tablet [Mustang] 07/19/2020 12:00:00 AM EST eCW1 ([facility]) Acetaminophen 325 MG / Hydrocodone Bitartrate 5 MG Ora l Tablet [Mustang] 06/06/2020 12:00:00 AM EST eCW1 ([facility]) Acetaminophen 325 MG / Hydrocodone Bitartrate 5 MG Ora l Tablet [Mustang] 05/25/2020 12:00:00 AM EDT eCW1 ([facility]) Acetaminophen 325 MG / Hydrocodone Bitartrate 5 MG Ora l Tablet [Mustang] 05/25/2020 12:00:00 AM EDT eCW1 ([facility]) Acetaminophen 325 MG / Hydrocodone Bitartrate 5 MG Ora l Tablet [Mustang] 05/25/2020 12:00:00 AM EDT eCW1 ([facility]) Acetaminophen 325 MG / Hydrocodone Bitartrate 5 MG Ora l Tablet 05/23/2020 12:00:00 AM EDT eCW1 ([facility]) Acetaminophen 325 MG / Hydrocodone Bitartrate 5 MG Ora l Tablet 01/17/2020 12:00:00 AM EDT eCW1 ([facility]) Acetaminophen 325 MG / Hydrocodone Bitartrate 5 MG Ora l Tablet 01/17/2020 12:00:00 AM EDT eCW1 ([facility]) Acetaminophen 325 MG / Hydrocodone Bitartrate 5 MG Ora l Tablet 11/25/2019 12:00:00 AM EDT eCW1 ([facility]) Acetaminophen 325 MG / Hydrocodone Bitartrate 5 MG Ora l Tablet 10/21/2019 12:00:00 AM EDT eCW1 ([facility]) Acetaminophen 325 MG / Hydrocodone Bitartrate 5 MG Ora l Tablet 09/14/2019 12:00:00 AM EST eCW1 ([facility]) One Touch Delica 33 gauge 08/29/2019 12:00:00 AM EST eCW1 ([facility]) OneTouch Verio - 08/29/2019 12:00:00 AM EST eCW1 ([facility]) One Touch Delica 33 gauge 08/29/2019 12:00:00 AM EST eCW1 ([facility]) OneTouch Verio - 08/29/2019 12:00:00 AM EST eCW1 ([facility]) One Touch Delica 33 gauge 08/29/2019 12:00:00 AM EST eCW1 ([facility]) OneTouch Verio - 08/29/2019 12:00:00 AM EST eCW1 ([facility]) OneTouch Verio - 08/29/2019 12:00:00 AM EST eCW1 ([facility]) One Touch Delica 33 gauge 08/29/2019 12:00:00 AM EST eCW1 ([facility]) Metoprolol Tartrate 50 MG Oral Tablet 08/26/2019 12:00:00 AM EST eCW1 ([facility]) Metoprolol Tartrate 50 MG Oral Tablet 08/26/2019 12:00:00 AM EST eCW1 ([facility]) Metoprolol Tartrate 50 MG Oral Tablet 08/26/2019 12:00:00 AM EST eCW1 ([facility]) Metoprolol Tartrate 50 MG Oral Tablet 08/26/2019 12:00:00 AM EST eCW1 ([facility]) Metoprolol Tartrate 50 MG Oral Tablet 08/26/2019 12:00:00 AM EST eCW1 ([facility]) Metoprolol Tartrate 50 MG Oral Tablet 08/26/2019 12:00:00 AM EST eCW1 ([facility]) Metoprolol Tartrate 50 MG Oral Tablet 08/26/2019 12:00:00 AM EST eCW1 ([facility]) Acetaminophen 325 MG / Hydrocodone Bitartrate 5 MG Ora l Tablet 08/15/2019 12:00:00 AM EST eCW1 ([facility]) 30 ACTUAT umeclidinium 0.0625 MG/ACTUAT / vilanterol 0.025 MG/ACTUAT Dry Powder Inhaler 08/03/2019 12:00:00 AM EST Health system Acetaminophen 325 MG / Hydrocodone Bitartrate 5 MG Ora l Tablet 07/15/2019 12:00:00 AM EST eCW1 ([facility]) Tiotropium [place]-Olodaterol 2.5-2.5 MC G/ACT Inhalation Aerosol Solution (STIOLTO RESPIMAT) 07/05/2019 12:00:00 AM EST [facility] sucroferric oxyhydroxide 500 MG Chewable Tablet [facility] b complex-vitamin c-folic acid (NEPHRO-GUILHERME) 0[facility]
== END 2020-09-11 08:05 | disposition home or self-care (01) ==
LOC: M ED 05:55
DX: S30.0XXA Contusion of lower back and pelvis, initial encounter (principal); S16.1XXA Strain of muscle, fascia and tendon at neck level, initial encounter; M48.07 Spinal stenosis, lumbosacral region; M54.16 Radiculopathy, lumbar region; M54.30 Sciatica, unspecified side; W19.XXXA Unspecified fall, initial encounter; Y92.9 Unspecified place or not applicable; Y93.9 Activity, unspecified; Y99.9 Unspecified external cause status; I48.91 Unspecified atrial fibrillation; I50.9 Heart failure, unspecified; E11.9 Type 2 diabetes mellitus without complications; I10 Essential (primary) hypertension; N18.6 End stage renal disease; Z99.2 Dependence on renal dialysis; G47.33 Obstructive sleep apnea (adult) (pediatric); Z86.73 Personal history of transient ischemic attack (TIA), and cerebral infarction without residual deficits; E03.9 Hypothyroidism, unspecified; R42 Dizziness and giddiness; Z87.442 Personal history of urinary calculi; F41.9 Anxiety disorder, unspecified; F32.9 Major depressive disorder, single episode, unspecified; E66.9 Obesity, unspecified; E11.40 Type 2 diabetes mellitus with diabetic neuropathy, unspecified; E11.319 Type 2 diabetes mellitus with unspecified diabetic retinopathy without macular edema; J44.9 Chronic obstructive pulmonary disease, unspecified; Z79.82 Long term (current) use of aspirin; Z79.899 Other long term (current) drug therapy; Z88.8 Allergy status to other drugs, medicaments and biological substances

== ENCOUNTER 2020-09-12 20:21 | Emergency (ER) | payer MEDICARE, MEDICAID ==
[~2020-09-12 20:21] MED LIST changes: +LIDO5DIS41 TOP
--- OUTSIDE RECORDS SUMMARY | 2020-09-12 20:27 | CCD ---
Author Author [facility] Organization [facility] Address Unknown Phone Unavailable Care Team Providers Care Assembler Equipment Name Role Phone Peggy Avila MD Unavailable [...] Unavailable Unavailable Avila Peggy TAVERA Unavailable Unavailable Vaila Peggy TAVERA Unavailable Unavailable Avila Peggy TAVERA [...] is protected by Article 27-F of the [facility] Public Health law. If you continue you may have access to information: Regarding HIV / AIDS; Provided by facilities licensed or operated by the [facility] Office of Mental Health; or Provided by the [facility] Office for People With Developmental Disabilities. If such information is present, then the following [facility] mandated warning applies: This information has been [...] law may result in a fine or residential sentence or both. A general authorization for the release of medical or other information is NOT sufficient authorization for further disc losure. Allergies and Adverse Reactions Type Description Substance Reaction Status Data Source(s ) Drug allergy Gatifloxacin gatifloxacin Anaphylaxis Active eCW1 ( [facility]) Azithromycin Azithromycin Azithromycin dyspnea, face an d lips swelling and tingling - seen in the ER 07/2016 Active eCW1 ([facility]) tequin tequin tequin Anaphylaxis Active eCW1 ([facility]) tequin tequin tequin Anaphylaxis Active eCW1 ([facility]) Family History Family Member Name Family Member Gender Family Member Status Date o f Status Description Data Source(s) Unknown Unknown Problem MEDENT ([facility]) Unknown Unknown Problem MEDENT ([facility]) Unknown Female Problem MEDENT ([facility]) Encounters Encounter Providers Location Date Indications Data Source(s ) Outpatient Attender: STACY CORDERO 03/07/2021 12:00:00 AM [facility] Outpatient Referrer: STACY CORDERO 03/07/2021 12:00:00 AM [facility] Outpatient Referrer: STACY CORDERO 03/07/2021 12:00:00 AM [facility] Outpatient Attender: STACY CORDEROReferrer: STACY CORDERO [id number] 08/31/2020 12:00:00 AM EST - 08/31/2020 11:51:33 AM EST Encounter for screening mammogram for malignant neoplasm of breast [facility] Encounter for screening mammogram for ma lignant neoplasm of breast Outpatient Referrer: STACY CORDERO 08/31/2020 12:00 :00 AM EST Mammographic calcification found on diagnostic imaging of breast [facility] Mammographic calcification found on diag nostic imaging of breast Outpatient Referrer: STACY COREDRO 08/31/2020 12:00 :00 AM EST Unspecified lump in the right breast, unspecified quadrant [facility] Unspecified lump in the right breast, un specified quadrant [place] [address] [facility] [address] 08/23/2020 12:00:00 AM EST eCW1 ([facility]) Outpatient Attender: STACY CORDEROReferrer: STACY CORDERO 08/08/2020 12:00:00 AM [facility] Outpatient Referrer: STACY CORDERO 08/08/2020 12:00:00 AM [facility] Outpatient Referrer: STACY CORDERO 08/08/2020 12:00:00 AM [facility] Outpatient Attender: Lucio Munoz MDReferrer: Aiden Nieves MD 08/01/2020 04:00:01 PM EST [facility] Recurring Patient Attender: Lucio Milnererrer: Aiden Gilmore dd, MD 08/01/2020 12:19:42 PM EST [facility] [place] [address] [facility] [address] 07/30/2020 12:00:00 AM EST eCW1 ([facility]) [place] [address] [facility] [address] 07/23/2020 12:00:00 AM EST eCW1 ([facility]) [place] [address] [facility] [address] 07/16/2020 12:00:00 AM EST eCW1 ([facility]) [place] [address] [facility] [address] 06/06/2020 12:00:00 AM EST eCW1 ([facility]) [place] [address] [facility] [address] 06/01/2020 12:00:00 AM EST eCW1 ([facility]) Outpatient Referrer: STACY CORDERO 05/28/2020 12:00:00 AM [facility] Outpatient Attender: STACY CORDEROReferrer: STACY CORDERO 05/28/2020 12:00:00 AM [facility] [place] [address] [facility] [address] 05/24/2020 12:00:00 AM EDT eCW1 ([facility]) [place] [address] [facility] [address] 05/23/2020 12:00:00 AM EDT eCW1 ([facility]) [place] [address] [facility] [address] 05/17/2020 12:00:00 AM EDT eCW1 ([facility]) [place] [address] [facility] [address] 05/14/2020 12:00:00 AM EDT eCW1 ([facility]) Outpatient Attender: STACY CORDEROReferrer: STACY CORDERO 05/11/2020 12:00:00 AM [facility] Outpatient Referrer: STACY CORDERO 05/11/2020 12:00:00 AM [facility] Unknown [address] [facility] [address] 05/01/2020 12:00:00 AM EDT [facility]CW[facility] [place] [address] [facility] [address] 04/26/2020 12:00:00 AM EDT eCW1 ([facility]) Outpatient [id number] 04/17/2020 10:46:52 AM EDT [facility] Outpatient Referrer: STACY CORDERO 04/09/2020 12:00:00 AM [facility] Outpatient Attender: STACY CORDERO 04/09/2020 12:00:00 AM [facility] Outpatient Attender: RIDGE BAKER MD [id number] 08/26/2 020 12:00:00 AM EDT - 03/21/2020 02:47:09 PM EDT Centrilobular emphysema [facility] Centrilobular emphysema Outpatient Attender: RIDGE BAKER MDReferrer: RIDGE BAKER MD 03/21/2020 12:00:00 AM EDT Other [facility] Other nonspecific abnormal finding of marybel ng field Attender: Tiffanie Avila MD 03/15/2020 10:06:58 AM ED T [facility] Outpatient Attender: 0000{ [place] 03/14/2020 10:57:00 AM E DT [facility] Outpatient Attender: Tiffanie Avila MD 03/14/2020 10:57:00 AM EDT RIGHT BREAST CALCS [facility] RIGHT BREAST CALCS Outpatient Attender: Tiffanie Avila MD [id number] 03/02/2020 12:00:00 AM EDT - 03/02/2020 11:26:16 AM EDT [facility] Outpatient Referrer: STACY CORDERO 02/20/2020 12:00 :00 AM EDT Other abnormal and inconclusive findings on diagnostic imaging of [facility] Other abnormal and inconclusive findings on diagnostic imaging of breast Outpatient Referrer: STACY CORDERO 02/03/2020 11:02 :00 AM EDT Other abnormal and inconclusive findings on diagnostic imaging of [facility] Other abnormal and inconclusive findings on diagnostic imaging of breast Outpatient Attender: STACY CORDEROReferrer: STACY CORDERO [id number] 02/03/2020 12:00:00 AM EDT - 02/03/2020 12:22:32 PM EDT Unspecified lump in the right breast, unspecified quadrant [facility] Unspecified lump in the right breast, un specified quadrant Outpatient Referrer: STACY CORDERO 02/03/2020 12:00 :00 AM EDT Encounter for screening mammogram for malignant neoplasm of breast [facility] Encounter for screening mammogram for ma lignant neoplasm of breast [place] [address] [facility] [address] 01/17/2020 12:00:00 AM EDT eCW1 ([facility] [place] [address] [facility] [address] 01/13/2020 12:00:00 AM EDT eCW1 ([facility]) Outpatient 01/04/2020 12:00:00 AM [facility] Outpatient Referrer: STACY CORDERO 12/28/2019 12:00:00 AM [facility] Outpatient Attender: STACY CORDEROReferrer: STACY CORDERO 12/28/2019 12:00:[address] [address] 12/14/2019 12:00:00 AM EDT eCW1 ([facility]) [address] [address] 12/13/2019 12:00:00 AM EDT eCW1 ([facility]) [address] [address] 11/24/2019 12:00:00 AM EDT eCW1 ([facility] [address] [address] 11/22/2019 12:00:00 AM EDT eCW1 ([facility]) Outpatient Referrer: ASHISH RAE MD 11/09/2019 02:56:0 0 PM EDT [facility] [address] [address] 11/03/2019 12:00:00 AM EDT eCW1 ([facility]) [address] [address] 10/27/2019 12:00:00 AM EDT eCW1 ([facility]) Outpatient Referrer: STACY CORDERO 10/26/2019 12:00:00 AM [facility] Outpatient Attender: STACY CORDEROReferrer: STACY CORDERO 10/26/2019 12:00:00 AM [facility] Outpatient Referrer: ASHISH RAE MD 10/25/2019 03:22:0 0 PM EDT [facility] Outpatient Referrer: ASHISH RAE MD 10/25/2019 03:15:0 0 PM EDT [facility] [place] [address] [facility] [address] 10/19/2019 12:00:00 AM EDT eCW1 ([facility]) Outpatient Attender: Emily Barboza MD Physical Therapy 10/16 03:30:00 PM EDT MEDENT ([facility]) [facility] [place] [address] [facility] [address] 10/14/2019 12:00:00 AM EDT eCW1 ([facility]) [facility] [address] [place] [address] [address] 09/30/2019 12:00:00 AM EST eCW1 ([facility]) [facility]ident [address] [place] [address], [place] [address] 09/30/2019 12:00:00 AM EST eCW1 ([facility]) [facility] [address] [place] [address] [address] 09/16/2019 12:00:00 AM EST eCW1 ([facility]) [facility] [address] [place] [address], [place] [address] 09/15/2019 12:00:00 AM EST eCW1 ([facility]) [facility] [address] [place] [address], [place] [address] 09/14/2019 12:00:00 AM EST eCW1 ([facility]) [facility] [address] [facility] [address] 09/14/2019 12:00:00 AM EST eCW1 ([facility]) Outpatient Attender: Emily Barboza MD Physical Therapy 09/12 10:00:00 AM EST MEDENT ([facility]) [facility] [address] [place] [address] [address] 09/12/2019 12:00:00 AM EST eCW1 ([facility]) [address] [address] 09/12/2019 12:00:00 AM EST eCW1 ([facility]) [facility] [place] [address] [facility] [address] 09/09/2019 12:00:00 AM EST eCW1 ([facility]) Outpatient Referrer: ASHISH RAE MD 09/07/2019 07:48:0 0 PM EST [facility] Outpatient Referrer: ASHISH RAE MD 09/07/2019 03:13:0 0 PM EST [facility] [place] [address] [facility] [address] 09/07/2019 12:00:00 AM EST eCW1 ([facility]) [facility] [place] [address] [facility] [address] 09/01/2019 12:00:00 AM EST eCW1 ([facility]) [facility] [place] [address] [facility] [address] 08/31/2019 12:00:00 AM EST eCW1 ([facility]) [facility] [place] [address] [facility] [address] 08/29/2019 12:00:00 AM EST eCW1 ([facility]) Outpatient Referrer: ASHISH RAE MD 08/26/2019 09:23:0 0 AM EST [facility] [place] [address] [facility] [address] 08/26/2019 12:00:00 AM EST eCW1 ([facility]) [facility] [place] [address] [facility] [address] 08/24/2019 12:00:00 AM EST eCW1 ([facility]) Outpatient Referrer: ASHISH RAE MD 08/23/2019 12:34:0 0 PM EST [facility] [place] [address] [facility] [address] 08/22/2019 12:00:00 AM EST eCW1 ([facility]) [facility] [place] [address] [facility] [address] 08/16/2019 12:00:00 AM EST eCW1 ([facility] [address] [address] 08/15/2019 12:00:00 AM EST eCW1 ([facility] [address] [address] 08/10/2019 12:00:00 AM EST eCW1 ([facility]) Outpatient Attender: ASHISH RAE MD Physical Therapy 08:15:00 AM EST MEDENT ([facility]) [address] [address] 08/08/2019 12:00:00 AM EST eCW1 ([facility]) Emergency Attender: DEFAULT / GENE KATHLEEN / UNKNOWN PROVIDER ALIASES Referrer: PROVIDER SYSTEM IN A-ADULTERM 08/03/2019 12:00:00 AM EST - 08/03/2019 07:31:00 PM EST Striking against unspecified object with subsequent fall, initial encounter [facility] Striking against unspecified object with subsequent fall, initial encounter Patient discharged. Immunizations Vaccine Date Status Description Data Source(s) Zoster 50mcg/0.5mL ([facility]) 08/15/2019 04:41:00 PM EST completed eCW1 ([facility]) Zoster 50mcg/0.5mL ([facility]) 08/15/2019 04:41:00 PM EST completed eCW1 ([facility]) Zoster 50mcg/0.5mL ([facility]) 08/15/2019 04:41:00 PM EST completed eCW1 ([facility]) Zoster 50mcg/0.5mL ([facility]) 08/15/2019 04:41:00 PM EST completed eCW1 ([facility]) Zoster 50mcg/0.5mL ([facility]) 08/15/2019 04:41:00 PM EST completed eCW1 ([facility]) Zoster 50mcg/0.5mL ([facility]) 08/15/2019 04:41:00 PM EST completed eCW1 ([facility]) Zoster 50mcg/0.5mL ([facility]) 08/15/2019 04:41:00 PM EST completed eCW1 ([facility]) Zoster 50mcg/0.5mL ([facility]) 08/15/2019 04:41:00 PM EST completed eCW1 ([facility]) Zoster 50mcg/0.5mL ([facility]) 08/15/2019 04:41:00 PM EST completed eCW1 ([facility]) Zoster 50mcg/0.5mL ([facility]) 08/15/2019 04:41:00 PM EST completed eCW1 ([facility]) Zoster 50mcg/0.5mL ([facility]) 08/15/2019 04:41:00 PM EST completed eCW1 ([facility]) Zoster 50mcg/0.5mL ([facility]) 08/15/2019 04:41:00 PM EST completed eCW1 ([facility]) Zoster 50mcg/0.5mL ([facility]) 08/15/2019 04:41:00 PM EST completed eCW1 ([facility]) Zoster 50mcg/0.5mL ([facility]) 08/15/2019 04:41:00 PM EST completed eCW1 ([facility]) Zoster 50mcg/0.5mL ([facility]) 08/15/2019 04:41:00 PM EST completed eCW1 ([facility]) Medications Medication Brand Name Start Date Product [...] DOSE = 3 TABLETS SOLD: 08/28/2020 [facility] Acetaminophen 325 MG / Oxycodone Hydroch loride 5 MG Oral Tablet Oxycodone- Acetaminophen 5-325 MG Oxycodone-Acetaminophen 5-325 MG 08/23/2020 12:00:00 A M EST 1.0 {tablet_as_needed} active O xycodone-Acetaminophen 5-325 MG eCW1 ([facility]) 5-325 mg 07/26/2020 12:00:00 AM EST tablet [...] Hydrocodone Alayna trate 5 MG Oral Tablet [[place]] [place] 5- 325 MG [place] 5-325 MG 07/19/2020 12:00:00 AM EST 1.0 {tablet_as_needed} active [place] 5-325 MG eCW1 ([facility]) Acetaminophen 325 MG / Hydrocodone Alayna trate 5 MG Oral Tablet [[place]] [place] 5- 325 MG [place] 5-325 MG 07/19/2020 12:00:00 AM EST 1.0 {tablet_as_needed} active [place] 5-325 MG eCW1 ([facility]) 0.8 mg 07/06/2020 12:00:00 AM EST tablet [...] Hydrocodone Alayna trate 5 MG Oral Tablet [[place]] [place] 5- 325 MG [place] 5-325 MG 06/06/2020 12:00:00 AM EST 1.0 {tablet_as_needed} active [place] 5-325 MG eCW1 ([facility]) 50 mg 06/02/2020 12:00:00 AM EST tablet [...] Hydrocodone Alayna trate 5 MG Oral Tablet [[place]] [place] 5- 325 MG [place] 5-325 MG 05/25/2020 12:00:00 AM EDT 1.0 {tablet_as_needed} active [place] 5-325 MG eCW1 ([facility]) Acetaminophen 325 MG / Hydrocodone Alayna trate 5 MG Oral Tablet [[place]] [place] 5- 325 MG [place] 5-325 MG 05/25/2020 12:00:00 AM EDT 1.0 {tablet_as_needed} active [place] 5-325 MG eCW1 ([facility]) Acetaminophen 325 MG / Hydrocodone Alayna trate 5 MG Oral Tablet [[place]] [place] 5- 325 MG [place] 5-325 MG 05/25/2020 12:00:00 AM EDT 1.0 {tablet_as_needed} active [place] 5-325 MG eCW1 ([facility]) 5-325 mg 05/25/2020 12:00:00 AM EDT tablet [...] EDT active Hydrocodone-Aceta minophen 5-325 MG eCW1 ([facility]) Rosuvastatin calcium 20 MG Oral Tablet ROSUVASTATIN [...] EDT active Hydrocodone-Aceta minophen 5-325 MG eCW1 ([facility]) Acetaminophen 325 MG / Hydrocodone Alayna trate 5 MG Oral Tablet Hydrocodone- Acetaminophen 5-325 MG Hydrocodone-Acetaminophen 5-325 MG 01/17/2020 12:00:00 AM EDT active Hydrocodone-Aceta minophen 5-325 MG eCW1 ([facility]) Acetaminophen 325 MG / Hydrocodone Alayna trate 5 MG Oral Tablet Hydrocodone- Acetaminophen 5-325 MG Hydrocodone-Acetaminophen 5-325 MG 01/17/2020 12:00:00 AM EDT active Hydrocodone-Aceta minophen 5-325 MG eCW1 ([facility]) Acetaminophen 325 MG / Hydrocodone Alayna trate 5 MG Oral Tablet Hydrocodone- Acetaminophen 5-325 MG Hydrocodone-Acetaminophen 5-325 MG 01/17/2020 12:00:00 AM EDT active Hydrocodone-Aceta minophen 5-325 MG eCW1 ([facility]) Acetaminophen 325 MG / Hydrocodone Alayna trate 5 MG Oral Tablet Hydrocodone- Acetaminophen 5-325 MG Hydrocodone-Acetaminophen 5-325 MG 01/17/2020 12:00:00 AM EDT active Hydrocodone-Aceta minophen 5-325 MG eCW1 ([facility]) 5-325 mg 01/17/2020 12:00:00 AM EDT tablet 56 TAKE ONE TABLET BY MOUTH TWICE A DAY NEEDED * MAXIMUM DAILY DOSE = 2 TAKE ONE TABLET BY MOUTH TWICE A DAY NEEDED * MAXIMUM DAILY DOSE = 2 SOLD: 01/17/2020 [facility] 2 mg 12/15/2019 12:00:00 AM EDT tablet 112 TAKE TWO TABLETS BY MOUTH TWICE A DAY NEEDED. MAXIMUM DAILY DOSE = 4 TABLETS TAKE TWO TABLETS BY MOUTH TWICE A DAY NEEDED. MAXIMUM DAILY DOSE = 4 TABLETS SOLD: 12/16/2019 [facility] Cyclobenzaprine hydrochloride 5 MG Oral Tablet CYCLOBENZAPRI NE HCL 12/15/2019 12:00:00 AM EDT tablet 90 TAKE ONE TABLET BY MOUTH THREE TIMES A DAY NEEDED TAKE ONE TABLET BY MOUTH THREE TIMES A DAY NEEDED SOLD: 03/15/2020 [facility] Cyclobenzaprine hydrochloride 5 MG Oral Tablet CYCLOBENZAPRI NE HCL 12/15/2019 12:00:00 AM EDT tablet 90 TAKE ONE TABLET BY MOUTH THREE TIMES A DAY NEEDED TAKE ONE TABLET BY MOUTH THREE TIMES A DAY NEEDED SOLD: 06/25/2020 [facility] Cyclobenzaprine hydrochloride 5 MG Oral Tablet CYCLOBENZAPRI NE HCL 12/15/2019 12:00:00 AM EDT tablet 90 TAKE ONE TABLET BY MOUTH THREE TIMES A DAY NEEDED TAKE ONE TABLET BY MOUTH THREE TIMES A DAY NEEDED SOLD: 08/17/2020 [facility] Cyclobenzaprine hydrochloride 5 MG Oral Tablet CYCLOBENZAPRI [...] 12:00:00 AM EDT active 1 tab eCW1 ([facility]) 20 mg 11/24/2019 12:00:00 AM EDT tablet [...] 12:00:00 AM EDT active 1 tab eCW1 ([facility]) Trazodone Hydrochloride 100 MG Oral Tablet TRAZODONE [...] BY MOUTH DAILY AT BEDTIME SOLD: 12/27/2019 [facility] Trazodone Hydrochloride 100 MG Oral [...] 12:00:00 AM EST active 1 tab eCW1 ([facility]) 5-325 mg 09/14/2019 12:00:00 AM EST tablet 56 TAKE 1 TABLET BY MOUTH TWICE A DAY NEEDED MAX DAILY DOSE = 2 TABLETS TAKE 1 TABLET BY MOUTH TWICE A DAY NEEDED MAX DAILY DOSE = 2 TABLETS SOLD: 09/14/2019 [facility] No Active Medications 09/12/2019 12:00:00 AM EST completed MEDENT ([facility] BLOOD SUGAR DIAGNOSTIC 09/12/2019 12:00:00 AM EST strip 300 TEST TWO TIMES A DAY AND NEEDED TEST TWO TIMES A DAY AND NEEDED SOLD: 09/13/2019 [facility] OneTouch Verio - OneTouch Verio - 08/29/2019 12:00:00 AM EST active OneTouch Verio - eCW1 ([facility]) One Touch Delica 33 gauge UNK 08/29/2019 12:00:00 AM EST active One Touch Delica 33 gauge eCW1 ([facility]) OneTouch Verio - OneTouch Verio - 08/29/2019 12:00:00 AM EST active OneTouch Verio - eCW1 ([facility]) OneTouch Verio - OneTouch Verio - 08/29/2019 12:00:00 AM EST active OneTouch Verio - eCW1 (Critical [facility] hospital) One Touch Delica 33 gauge UNK 08/29/2019 12:00:00 AM EST active One Touch Delica 33 gauge eCW1 ([facility]) OneTouch Verio - OneTouch Verio - 08/29/2019 12:00:00 AM EST active verio flex eCW1 (Critical access hospital) [facility] Delica 33 gauge UNK 08/29/2019 12:00:00 AM EST active One Touch Delica 33 gauge eCW1 ([facility]) One Touch Delica 33 gauge UNK 08/29/2019 12:00:00 AM EST active testing twice a day and as needed eCW1 ([facility]) OneTouch Verio - OneTouch Verio - 08/29/2019 12:00:00 AM EST active OneTouch Verio - eCW1 (Critical [facility] hospital) One Touch Delica 33 gauge UNK 08/29/2019 12:00:00 AM EST active One Touch Delica 33 gauge eCW1 ([facility]) One Touch Delica 33 gauge UNK 08/29/2019 12:00:00 AM EST active One Touch Delica 33 gauge eCW1 ([facility]) OneTouch Verio - OneTouch Verio - 08/29/2019 12:00:00 AM EST active OneTouch Verio - eCW1 (Critical [facility] hospital) OneTouch Verio - OneTouch Verio - 08/29/2019 12:00:00 AM EST active OneTouch Verio - eCW1 (Critical access hospital) One Touch Delica 33 gauge UNK 08/29/2019 12:00:00 AM EST active One Touch Delica 33 gauge eCW1 ([facility]) OneTouch Verio - OneTouch Verio - 08/29/2019 12:00:00 AM EST active OneTouch Verio - eCW1 (Critical [facility] hospital) One Touch Delica 33 gauge UNK 08/29/2019 12:00:00 AM EST active One Touch Delica 33 gauge eCW1 ([facility]) One Touch Delica 33 gauge UNK 08/29/2019 12:00:00 AM EST active One Touch Delica 33 gauge eCW1 ([facility]) One Touch Delica 33 gauge UNK 08/29/2019 12:00:00 AM EST active One Touch Delica 33 gauge eCW1 ([facility]) OneTouch Verio - OneTouch Verio - 08/29/2019 12:00:00 AM EST active OneTouch Verio - eCW1 ([facility]) OneTouch Verio - OneTouch Verio - 08/29/2019 12:00:00 AM EST active OneTouch Verio - eCW1 (Critical [facility] hospital) One Touch Delica 33 gauge UNK 08/29/2019 12:00:00 AM EST active One Touch Delica 33 gauge eCW1 ([facility]) OneTouch Verio - OneTouch Verio - 08/29/2019 12:00:00 AM EST active OneTouch Verio - eCW1 (Critical [facility] hospital) One Touch Delica 33 gauge UNK 08/29/2019 12:00:00 AM EST active testing twice a day and as needed eCW1 ([facility]) One Touch Delica 33 gauge UNK 08/29/2019 12:00:00 AM EST active One Touch Delica 33 gauge eCW1 ([facility]) One Touch Delica 33 gauge UNK 08/29/2019 12:00:00 AM EST active One Touch Delica 33 gauge eCW1 ([facility]) OneTouch Verio - OneTouch Verio - 08/29/2019 12:00:00 AM EST active verio flex eCW1 (Critical access hospital) OneTouch Verio - OneTouch Verio - 08/29/2019 12:00:00 AM EST active OneTouch Verio - eCW1 (Critical [facility] hospital) OneTouch Verio - OneTouch Verio - 08/29/2019 12:00:00 AM EST active OneTouch Verio - eCW1 (Critical access hospital) One Touch Delica 33 gauge UNK 08/29/2019 12:00:00 AM EST active One Touch Delica 33 gauge eCW1 ([facility]) OneTouch Verio - OneTouch Verio - 08/29/2019 12:00:00 AM EST active OneTouch Verio - eCW1 (Critical [facility] hospital) OneTouch Verio - OneTouch Verio - 08/29/2019 12:00:00 AM EST active OneTouch Verio - eCW1 (Critical access hospital) One Touch Delica 33 gauge UNK 08/29/2019 12:00:00 AM EST active One Touch Delica 33 gauge eCW1 ([facility]) Metoprolol Tartrate 50 MG Oral Tablet Metoprolol Tartrate 50 MG 08/26/2019 12:00:00 AM EST 1.0 {tablet_with_food} active Metoprolol Tartrate 50 MG eCW1 ([facility]) Calcitriol 0.67779 MG Oral Capsule Calcitriol 0.25 MCG Calci triol 0.25 MCG 08/26/2019 12:00:00 AM EST 2.0 {capsules} active Calcitriol 0.25 MCG eCW1 ([facility]) Metoprolol Tartrate 50 MG Oral Tablet Metoprolol Tartrate 50 MG 08/26/2019 12:00:00 AM EST 1.0 {tablet_with_food} active Metoprolol Tartrate 50 MG eCW1 ([facility]) Metoprolol Tartrate 50 MG Oral Tablet Metoprolol Tartrate 50 MG 08/26/2019 12:00:00 AM EST 1.0 {tablet_with_food} active Metoprolol Tartrate 50 MG eCW1 ([facility]) Calcitriol 0.53310 MG Oral Capsule Calcitriol 0.25 MCG Calci triol 0.25 MCG 08/26/2019 12:00:00 AM EST 2.0 {capsules} active Calcitriol 0.25 MCG eCW1 ([facility]) Calcitriol 0.48593 MG Oral Capsule Calcitriol 0.25 MCG Calci triol 0.25 MCG 08/26/2019 12:00:00 AM EST 2.0 {capsules} active Calcitriol 0.25 MCG eCW1 ([facility]) Metoprolol Tartrate 50 MG Oral Tablet Metoprolol Tartrate 50 MG 08/26/2019 12:00:00 AM EST 1.0 {tablet_with_food} active Metoprolol Tartrate 50 MG eCW1 ([facility]) Metoprolol Tartrate 50 MG Oral Tablet Metoprolol Tartrate 50 MG 08/26/2019 12:00:00 AM EST 1.0 {tablet_with_food} active Metoprolol Tartrate 50 MG eCW1 ([facility]) Metoprolol Tartrate 50 MG Oral Tablet Metoprolol Tartrate 50 MG 08/26/2019 12:00:00 AM EST 1.0 {tablet_with_food} active Metoprolol Tartrate 50 MG eCW1 ([facility]) Calcitriol 0.85635 MG Oral Capsule Calcitriol 0.25 MCG Calci triol 0.25 MCG 08/26/2019 12:00:00 AM EST 2.0 {capsules} active Calcitriol 0.25 MCG eCW1 ([facility]) Calcitriol 0.38792 MG Oral Capsule Calcitriol 0.25 MCG Calci triol 0.25 MCG 08/26/2019 12:00:00 AM EST 2.0 {capsules} active Calcitriol 0.25 MCG eCW1 ([facility]) Metoprolol Tartrate 50 MG Oral Tablet Metoprolol Tartrate 50 MG 08/26/2019 12:00:00 AM EST 1.0 {tablet_with_food} active Metoprolol Tartrate 50 MG eCW1 ([facility]) Metoprolol Tartrate 50 MG Oral Tablet Metoprolol Tartrate 50 MG 08/26/2019 12:00:00 AM EST active 1 tablet with food eCW1 ([facility]) Calcitriol 0.95622 MG Oral Capsule Calcitriol 0.25 MCG Calci triol 0.25 MCG 08/26/2019 12:00:00 AM EST 2.0 {capsules} active Calcitriol 0.25 MCG eCW1 ([facility]) Calcitriol 0.46554 MG Oral Capsule Calcitriol 0.25 MCG Calci triol 0.25 MCG 08/26/2019 12:00:00 AM EST 2.0 {capsules} suspen ded Calcitriol 0.25 MCG eCW1 ([facility]) Calcitriol 0.50439 MG Oral Capsule Calcitriol 0.25 MCG Calci triol 0.25 MCG 08/26/2019 12:00:00 AM EST active 2 capsules eCW1 ([facility]) Calcitriol 0.29198 MG Oral Capsule Calcitriol 0.25 MCG Calci triol 0.25 MCG 08/26/2019 12:00:00 AM EST active 2 capsules eCW1 ([facility]) Metoprolol Tartrate 50 MG Oral Tablet Metoprolol Tartrate 50 MG 08/26/2019 12:00:00 AM EST 1.0 {tablet_with_food} active Metoprolol Tartrate 50 MG eCW1 ([facility]) Metoprolol Tartrate 50 MG Oral Tablet Metoprolol Tartrate 50 MG 08/26/2019 12:00:00 AM EST 1.0 {tablet_with_food} active Metoprolol Tartrate 50 MG eCW1 ([facility]) Calcitriol 0.19218 MG Oral Capsule Calcitriol 0.25 MCG Calci triol 0.25 MCG 08/26/2019 12:00:00 AM EST 2.0 {capsules} active Calcitriol 0.25 MCG eCW1 ([facility]) Metoprolol Tartrate 50 MG Oral Tablet Metoprolol Tartrate 50 MG 08/26/2019 12:00:00 AM EST active 1 tablet with food eCW1 ([facility]) Metoprolol Tartrate 50 MG Oral Tablet Metoprolol Tartrate 50 MG 08/26/2019 12:00:00 AM EST 1.0 {tablet_with_food} active Metoprolol Tartrate 50 MG eCW1 ([facility]) Metoprolol Tartrate 50 MG Oral Tablet Metoprolol Tartrate 50 MG 08/26/2019 12:00:00 AM EST active 1 tablet with food eCW1 ([facility]) Metoprolol Tartrate 50 MG Oral Tablet Metoprolol Tartrate 50 MG 08/26/2019 12:00:00 AM EST 1.0 {tablet_with_food} active Metoprolol Tartrate 50 MG eCW1 ([facility]) Calcitriol 0.89601 MG Oral Capsule Calcitriol 0.25 MCG Calci triol 0.25 MCG 08/26/2019 12:00:00 AM EST 2.0 {capsules} suspen ded Calcitriol 0.25 MCG eCW1 ([facility]) Calcitriol 0.04978 MG Oral Capsule Calcitriol 0.25 MCG Calci triol 0.25 MCG 08/26/2019 12:00:00 AM EST 2.0 {capsules} active Calcitriol 0.25 MCG eCW1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-zn3k-[id number] ANSI-Medicare Part B [id number] ANSI-Medicaid [id number] MEDICARE A [id number] Self [id number] MEDICARE -RECURRING [id number] 18 [id number] ANSI-Commercial [id number]-kpv2-4fw4-5x3d-[id number] 38188k5s-qgh4-6mx6-3r0y-[id number] ANSI-Medicare Part B [id number] ANSI-Medicaid [id number] ANSI-Medicaid [id number] ANSI-Medicare Part B [id number] ANSI-Commercial [id number]-zp44-346c-0782-hwnvog26v87j [id number]-tw93-303y-0633-ktqpnh29g89u [employer] C [id number] S [id number] Medicare C [id number] SELF [id number] Medicare C [id number] SELF [id number] T MEDICARE A [id number] Self [id number] MEDICARE A [id number] Self [id number] T MEDICARE C [id number] S [id number] T [facility] SV OPTIONS C [id number] S [id number] [place] Medigap Part B [id number] Self [id number] [place] Primary [id number] Self [id number] [employer] [id number] SP [id number] [facility] O [id number] S [id number] MEDICAID [id number] SP [id number] MEDICARE [id number] SP [id number] T Medicaid [facility] Part B Self Medicare [facility] Medicare Primary Self MEDICARE [id number] SP [id number] T SELF PAY 2 UNAVAILABLE 1 UNAVAILA BLE MEDICAID [facility] 3 [id number] 1 [id number] E MEDICARE 4 [id number] 1 [id number] T FIRST [place] NOT FOR TODAYS VISIT SP NOT FOR TODAYS VISIT BIG LOTS NOT IN EFFECT SP NOT IN EFFECT Problems, Conditions, and Diagnoses Code Display Name Description Problem Type Effective Dates Data Source(s) 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 Problem 08/03/2020 12:00:00 AM EST eCW1 ([facility]) 719965832 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 Problem 09/12/2019 12:00:00 AM EST MEDENT ([facility]) E83.51 7744056 Hypocalcemia Problem 08/29/2019 12:00:00 AM EST eCW1 ([facility]) E83.51 4524224 Hypocalcemia Problem 08/29/2019 12:00:00 AM EST eCW1 ([facility]) E04.1 [id number] Thyroid nodule Problem 08/24/2019 12:00:00 A M EST eCW1 ([facility]) E04.1 [id number] Thyroid nodule Problem 08/24/2019 12:00:00 A M EST eCW1 ([facility]) N60.01 Solitary cyst of right breast Solitary cyst of right b reast Diagnosis 08/31/2020 11:28:37 AM [facility] Z12.31 Encounter for screening mammogram for ma lignant neoplasm of breast Encounter for screening mammogram for malignant neoplasm of breast Diagnosis 08/31/2020 11:28:37 AM [facility] R92.8 Other abnormal and inconclusive findings on diagnostic imaging of breast Other abnormal and inconclusive findings on diagnostic imaging of breast Diagnosis 08/31/2020 10:27:45 AM [facility] N63.10 Unspecified lump in the right breast, un specified quadrant Unspecified lump in the right breast, unspecified quadrant Diagnosis 021 10:27:45 AM [facility] R92.1 Mammographic calcification found on diag nostic imaging of breast Mammographic calcification found on diagnostic imaging of breast Diagnosis 08/31/2020 10:27:10 AM [facility] G89.29 Other chronic pain Other chronic pain Diagnosis 02/2020 03:12:04 PM [facility] M54.9 Dorsalgia, unspecified Dorsalgia, unspecified Diagnosi s 08/03/2019 03:12:04 PM [facility] M54.2 Cervicalgia Cervicalgia Diagnosis 08/03/2019 03:12:04 PM [facility] W18.00XA Striking against unspecified object with subsequent fall, initial encounter Striking against unspecified object with subsequent fall, initial encounter Diagnosis 08/03/2019 03:12:04 PM [facility] small increase of Rt intraventricular he morrhage small increase of Rt intraventricular hemorrhage Diagnosis 08/03/2019 03:12:04 PM [facility] Surgeries/Procedures Procedure Description Date Indications Data Source(s) CT THORAX W/O CONTRAST MATERIAL CT THORAX WITHOUT CONTRAST 7125 0 Routine 03/21/2020 12:27 PM EDT Pulmonary nodules 03/21/2020 12:27:33 PM EDT Pulmonary nodules [facility] Pulmonary nodules Fine Needle Aspiration Biopsy Inlcd Ultrasound Guidance 09/19/2019 12:00:00 AM EST MEDENT ([facility]) TRANS CARE MGMT 7 DAY DISCH 08/29/2019 12:00:00 AM EST eCW1 ([facility]) Annual wellness visit, includes a person alized prevention plan of service (pps), subsequent visit 08/15/2019 12:00:00 AM EST eCW1 ([facility]) IMMUNIZATION ADMIN 08/15/2019 12:00:00 AM EST eCW1 ([facility]) Shingrix 50mcg/0.5mL (Zoster) 08/15/2019 12:00:[address] eCW1 ([facility]) Annual alcohol misuse screening, 15 minutes 08/15/2019 12:00:00 AM EST eCW1 ([facility]) ARTHROCENTESIS ASPIR&/INJECTION MAJOR JT/BURSA 020 12:00:00 AM EST [facility] ([facility]) CT LUMBAR SPINE W/O CONTRAST MATERIAL CT LUMBAR SP[place]O [place] CONTRAST 28496 STAT 08/03/2019 5:31 PM EST 08/03/2019 10:31:23 PM [facility] CT HEAD/BRAIN W/O CONTRAST MATERIAL CT HEAD WITHOUT CONTRAST 70 450 STAT 08/03/2019 5:31 PM EST 08/03/2019 10:31:05 PM [facility] PARTIAL THROMBOPLASTIN TIME (PTT) PARTIAL THROMBOPLASTIN TIME ( PTT) STAT 08/03/2019 3:56 PM EST 08/03/2019 08:56:00 PM [facility] PROTHROMBIN TIME PROTIME INR STAT 08/03/2019 3:56 PM EST 08/03/2019 08:56:00 PM [facility] BLOOD COUNT COMPLETE AUTO&AUTO DIFRNTL WBC COUNT CBC AND DIFFER ENTIAL STAT 08/03/2019 3:56 PM EST 08/03/2019 08:56:00 PM [facility] BASIC METABOLIC PANEL CALCIUM TOTAL BASIC METABOLIC PANEL STAT 08/03/2019 3:56 PM EST 08/03/2019 08:56:[address] [facility] Results ID Date Data Source [id number] 09/04/2020 08:21:24 AM [facility] Hospital Name Value Range Interpretation Code Description Data Melanie rce(s) Supporting Document(s) Progress Note [facility] WCTGJg6zScPATuPl56/YOKhkDSDmn3QlWEprQRi9TToqZFGsQ1XsPFO2tC1ySCT5JOkKKsXcChHgJuA2 lbm [file] NmEzOWIyYTFlZjI+YU7oPKb+Xt6Cp2YciyW3wtOxQSpeQRJ6AS3MIHDWV3NLSt== ID Date Data Source [id number] 09/04/2020 08:06:09 AM EST [facility] MAMMO DIGITAL DIAGNOSTIC RIGHT [id number] L RESULTInterpreted by:TIA Pond DIGITAL MAMMOGRAM WITH COMPUTER-AIDED DETECTION and TARGETED RIGHT BREAST ULTRASOUNDHISTORY: Short-term follow-up after benign right breast biopsy performed at outside facility. Short-term follow-up of mass seen on ultrasound outside facility. The patient reports family history of breast cancer in maternal aunt. The patient reports multiple benign left breast biopsies in the past.[facility] [place] risk assessment model:5 year calculated risk: 2.2%Average [...] rce(s) Supporting Document(s) ID Date Data Source [id number] 09/04/2020 08:06:09 AM EST [facility] US BREAST INCLUDING AXILLA LIMITED RIGHT [id number] RESULTInterpreted by:TIA Pond DIGITAL MAMMOGRAM WITH COMPUTER-AIDED DETECTION and TARGETED RIGHT BREAST ULTRASOUNDHISTORY: Short-term follow-up after benign right breast biopsy performed at outside facility. Short-term follow-up of mass seen on ultrasound outside facility. The patient reports family history of breast cancer in maternal aunt. The patient reports multiple benign left breast biopsies in the past.[facility] [place] risk assessment model:5 year calculated risk: 2.2%Average [...] rce(s) Supporting Document(s) ID Date Data Source [id number] 08/01/2020 04:00:01 PM EST [facility]: Jose CarnesDOB: 1955Provider: Hemant Munoz: 08/01/2020 Reason For VisitSregina Carnes is here today for Left Knee. Jose Carnes is an established patient here for a new problem. Patient states that she banged her knee on a cupboard door 07/19. In the past week, she began to have a lot of pain, difficulty walking. She ended up calling ambulance and was seen at [facility] in [place]. Ambulating with walker. Was given RX for Oxycodone but not taking. Patient states they are disabled. AssessmentReason for Visit:Left knee pain.Jose is a 64-year-old female disabled was seen by me two years ago for her knees. At that time, I felt it was more her back. She has been reasonably good up until this past Shahida when she had a direct injury to her knee and then developed this incapacitating pain. She was worked up in the [place] which included x-rays, CT scan and MRI [...] rce(s) Supporting Document(s) ID Date Data Source [id number] 07/22/2020 11:02:00 PM EST [facility] Name Value Range Interpretation Code Description Data Melanie rce(s) Supporting Document(s) SARS coronavirus 2 RNA [Presence] in Res piratory specimen by [facility] with probe detection [facility] This lab was ordered by [facility] a nd reported by [facility]. ID Date Data Source [id number] 03/28/2020 08:38:46 AM EDT [facility] Name Value Range Interpretation Code Description Data Melanie rce(s) Supporting Document(s) Progress Note [facility] KDKXYw4dMmXYGyVr98/WUAssHZRsg1VtSWbqEZx0NBchVSIqU2XiVPO4kF3tCEY6RFrFZqOiIqUbXKIv lbm [file] ICAgICAgICAgICAgICAgICAgICAgICAgICAgICAgIC AgICAgICAgICAgICAgICAgICAgICAgICAgICAgICAgICAgICAgICAgICANCiAgICAgICAgICAgICAgIC AgICAgICAgICAgICAgICAgICAgICAgICAgICAgICAgICAgICAgICAgICAgICAgICAgICAgICAgICAgIC AgICAgICAgICAgICAgICAgICAgICAgICANCiAgICAg ICAgICAgICAgICAgICAgICAgICAgICAgICAgICAgICAgICAgICAgICAgICAgICAgICAgICAgICAgICAg ICAgICAgICAgICAgICAgICAgICAgICAgICAgICAgICAgICANCiAgICAgICAgICAgICAgICAgICAgICAg ICAgICAgICAgICAgICAgICAgICAgICAgICAgICAgIC AgICAgICAgICAgICAgICAgICAgICAgICAgICAgICAgICAgICAgICAgICAgICANCiAgICAgICAgICAgIC AgICAgICAgICAgICAgICAgICAgICAgICAgICAgICAgICAgICAgICAgICAgICAgICAgICAgICAgICAgIC AgICAgICAgICAgICAgICAgICAgICAgICAgICANCiAg ICAgICAgICAgICAgICAgICAgICAgICAgICAgICAgICAgICAgICAgICAgICAgICAgICAgICAgICAgICAg ICAgICAgICAgICAgICAgICAgICAgICAgICAgICAgICAgICAgICANCiAgICAgICAgICAgICAgICAgICAg ICAgICAgICAgICAgICAgICAgICAgICAgICAgICAgIC AgICAgICAgICAgICAgICAgICAgICAgICAgICAgICAgICAgICAgICAgICAgICAgICANCiAgICAgICAgIC AgICAgICAgICAgICAgICAgICAgICAgICAgICAgICAgICAgICAgICAgICAgICAgICAgICAgICAgICAgIC AgICAgICAgICAgICAgICAgICAgICAgICAgICAgICAN CiAgICAgICAgICAgICAgICAgICAgICAgICAgICAgICAgICAgICAgICAgICAgICAgICAgICAgICAgICAg ICAgICAgICAgICAgICAgICAgICAgICAgICAgICAgICAgICAgICAgICANCiAgICAgICAgICAgICAgICAg ICAgICAgICAgICAgICAgICAgICAgICAgICAgICAgIC AgICAgICAgICAgICAgICAgICAgICAgICAgICAgICAgICAgICAgICAgICAgICAgICAgICANCjw/eHBhY2 vaaDWefpH2O8awZs9DJq9LXF4gt2NxPXUeGHssjoVzHxzBEtQyWAVqSomUXyi8ZOscMG7LfUEqS9SvR9 UuIWhmXR9HQGKtYNOkwLVgNBTgFZKdLyB6MUBrTClm XT3OeFLbZBrgSKQiHQMiXgZlYGXuQJNaYQAjSDJyPUNOGPSuMRXeHaSpJZCbMZPpFK3FOWBcJ926uuSl We6WKp3GVlYiWG4coq4MLpJvXEAaIxdOLwb9ASmoWP2RxZGhtKZuPjLrRWEVPyXuD9ity3FoHbTtYJMZ WCxrDV7Fp8LniGSnOFf+Bg3EYE5yv3NnUCqhXtSvTD 5rke2LODhZBxJpQ8UhvOdxXMPif5svLGPiTY3euBXiKPQ8KWRygbRrZ9T6yDGnDOXPOWCcuLB1ZcJ3Uf DeUtJmILO2YKPdXV9pMAenAK0WFYF3VIkfPTTmKRCsX9xIWkYrZRCvCTOvoKzvQW5SRoXlP6SydpApuI AzNSAwIFINCj4+RGkjypVyEwnGNlX8MGNrg7JxAIj1 WU5EITZkGAniVS9ABQOvsN3mDGisOX6CJoOlEtWlUAZYUeMmH28iaJDkHOj9V3EeJdFhJXYwQtedUXPu PDwvTmFtZXMgWyBdDQogID4+ID4+FDuxYN0ODPteqsKxUAQnPb0IPSZuWRMzFT8xKYBxXNYcO9Y4kHbs WEOBAaZfA3anzqhvDG0lTSYtC709oRmotvDoSDJ1AJ WcLa3YLPDjDRP5QHXstVPlMaBgJJWIZPhvCC1JnQNtZDU7mN0qTJvsUDKxNWZsQ4qFGzGgsRywAU45gJ wgbnVsbCBdDQo+Ko5IYS2mt1MpVRw5mrWiUErhYUA1KHruMFJfJALhLZTtBTK1JZA7LAZWRbJrKVSsQA CoSLmfOMSaLJWqlg1BZQAiJDIaDxH5MWZqNUZgVZMe AGrqXWHhVWC8NCRjMYIkGUViGN6MRcGkXZNdNZSsXVieOPSqZJAzmn3KXSSgNETbDks5CDPaFVXfTUHp FUqwBAIcVWP3EPs1TNVnJUHcAA9WXlRwZMYcJFK0DqGqTAXlEGOdhr9NDOQcXGKhAka0JJSmBAKdBCUt HJetLEXpNBT4RZJdVVWbNNWbPY0DOyHaLIEbMGXoWg EmMTFzQWZkcq6WPAKbOIZaBvRtAFKzNFWkTAMxIOtoSKYgVKCwLUO3HTBqOUGmRQ5GQuHnGMYnMWM0HR grOKFhJHNmig4JVEFvLNXaRgXfPMVzYKYzUOTaGWcrAZZzUIH8FiykXIAeUFQwOW4OPgJjGAViOOd8PO aqFEAsMVJgpp9AUHYnYWOuMNB1BoAlHGWsELPhVRql PVTiHSBcUmT9CPKfNWNjUT9KXsBrHEAoXyK5AcziSNQtITXhlb5OMIQeDSTbUKi6JvZiEUIyVMWqBUrh KNCcRKFlLMe4UWNgCHXpRA6WZlWsQBLwIvDlGgIdHVIyGRDwic0PIFHyMDNpKhoiXrFvIQBcDAAaBGlr WHJqYKP0ZSCmNLTkYPAnAQ9HMtEiMLElUoZsCMUiJO MqGMQcys9UOAAySLYbWTC2TRMoPQXyJZKpZCosRPVtVXM4HuQ6GYSdMIOgVO0OBhZaUNEgSzH5ClrjPC MiQYVteh3MFSHeXXRiUWr9ZQGmVNAoYWGsTMouYHPcHXD8AUG6AFCvFHXfYJ3XOgUuEZClHiR1LFFvAN EwSIJopu2ZEICsVLIeIvQ4QYYlYCKyPCCtGVcbDBGz WSL7DhA4IBBuYBJuGX9EOsPvSNNjAqi8QOOyIGAmGRPqut4NDBCiSICvVQR2KsYrPZFvQTCqLIidDTYg HDL6RdXiLFCaRLYyCK7PGjXaXZEuVixxBxyaDBGyXDCabs1EuVBmvAtrqw3CZEgQVn5QdBzcPQQ2ZLhc Ro7xsJAtCbXbBYKTTk2HfvIkUHEgAHAEBLhvDYXpJS g4M6UnL8Q3JlZtPTX7AKS5KUqpKvIbCOIiD3J9YIxiStH7RoEgJiNwZgJ9EQV3OpX9SNYkPDGxJFYkYl I8Ble5OEO+TL2pRKp+Kp0Ot8AjktN7qiAuQGgaQKUcBu4VKCEEZ3KXWb== ID Date Data Source [id number] 03/21/2020 05:45:19 PM EDT [facility] CT THORAX WITHOUT CONTRAST [id number] RE SULTInterpreted by:Alix Vincent MDINDICATION: Follow-up lung nodules and mediastinal adenopathyTECHNIQUE: [...] Value Range Interpretation Code Description Data Melanie knowlese(s) Supporting Document(s) ID Date Data Source [id number] 03/21/2020 01:49:05 PM [facility] Name Value Range Interpretation Code Description Data Melanie rce(s) Supporting Document(s) Progress Note [facility] VNPTRu6aQwXMNeEz01/IJZhvYDPbv7NvNXjePWg1AHokIYAmB4BmEOG6aX5wLUN4FAzWSuUgPzOvDSI0 lbm [file] 1PSGNND9CUSz== ID Date Data Source [id number] 03/21/2020 01:48:24 PM EDT [facility] Name Value Range Interpretation Code Description Data Melanie rce(s) Supporting Document(s) Progress Note [facility] FKVJEh4yAhYVJxYg94/DRDnmOVKxs9KyCYvmLWc2ZFmoAJVbE9AmFNC9iD4yUVD8GKaARtNgBuBvBBV3 lbm ErQlaKQkFyDYIkIgyUMkWwOIqlQfewdCWaYO2JmBU6CCZuA22fWGOjMMFlU2NtOBT1LJL+Hf1EAPJqgH FvGD1THnvZ5Mcnu+M2Ev5+sX9ZNxNH4gOOVPhgdQOwtSnqz5do5J0r6gDiM54jp1z6jqYlpyYsP8PSfa QBsHpJ8iPOJXuImTXur7zVzUXgDnW84//PKUv8eyCE n+oyjDgbLdk//9Imaf1vgvLYCwvcZ5ptC+pe4wtDfK7CkCIenkMDfyRPo7nmgmXi4TFgNNJSK32Ej8l+ +ruoj4Fmam4sg1HhP7aAdpaMdd2igHEA/7HrAXu/s0/BRp9zed0gNqEQJA02ritGFCjyKwOjxiVAOIbf CNu0DIJRGeu/ihVSPufrDaPLo1ZyNAZr1DEt2Pd3vX XzOg+LEdpd8wJdQnhQpkf/ulp3opK1zFdREcjnP7Jq76g+SulmhkdhUPsimvKTgrjA+hTOWxMYvC6FSP bsf1XvQOm24AE0dUlq1/A8mQ+sGt59/WxlsJg0TrAzeWltGWE12cQ7PIM4nMb2V1KAIyCjBU5uR4/Diana [file] ICAgICAgICAgICAgICAgICAgICAgICAgICAgICAgICAgICAgICAgICAgICAgICAgICAgICAgICAgICAg ICAgICAgICAgICAgICAgICAgICAgICAgICAgICAgICAgICAgICAgDQogICAgICAgICAgICAgICAgICAg ICAgICAgICAgICAgICAgICAgICAgICAgICAgICAgIC AgICAgICAgICAgICAgICAgICAgICAgICAgICAgICAgICAgICAgICAgICAgICAgICAgDQogICAgICAgIC AgICAgICAgICAgICAgICAgICAgICAgICAgICAgICAgICAgICAgICAgICAgICAgICAgICAgICAgICAgIC AgICAgICAgICAgICAgICAgICAgICAgICAgICAgICAg DQogICAgICAgICAgICAgICAgICAgICAgICAgICAgICAgICAgICAgICAgICAgICAgICAgICAgICAgICAg ICAgICAgICAgICAgICAgICAgICAgICAgICAgICAgICAgICAgICAgICAgDQogICAgICAgICAgICAgICAg ICAgICAgICAgICAgICAgICAgICAgICAgICAgICAgIC AgICAgICAgICAgICAgICAgICAgICAgICAgICAgICAgICAgICAgICAgICAgICAgICAgICAgDQogICAgIC AgICAgICAgICAgICAgICAgICAgICAgICAgICAgICAgICAgICAgICAgICAgICAgICAgICAgICAgICAgIC AgICAgICAgICAgICAgICAgICAgICAgICAgICAgICAg ICAgDQogICAgICAgICAgICAgICAgICAgICAgICAgICAgICAgICAgICAgICAgICAgICAgICAgICAgICAg ICAgICAgICAgICAgICAgICAgICAgICAgICAgICAgICAgICAgICAgICAgICAgDQogICAgICAgICAgICAg ICAgICAgICAgICAgICAgICAgICAgICAgICAgICAgIC AgICAgICAgICAgICAgICAgICAgICAgICAgICAgICAgICAgICAgICAgICAgICAgICAgICAgICAgDQogIC AgICAgICAgICAgICAgICAgICAgICAgICAgICAgICAgICAgICAgICAgICAgICAgICAgICAgICAgICAgIC AgICAgICAgICAgICAgICAgICAgICAgICAgICAgICAg ICAgICAgDQogICAgICAgICAgICAgICAgICAgICAgICAgICAgICAgICAgICAgICAgICAgICAgICAgICAg LIMwNYCwEJXsNVOkTZVoFIOiTQEuPLKfPRYxWKQwETGfSFYzXWNbEWSbGBHiMHSwLXb2H7fyQAWbAYCi RR1zQRj3Dh0+NQxHAnJuYQE3hdChsZ6EAO0mt2IhME zqMNNtq4LeJIm8WR5UJGImHMjpDN2QNXacyi1PIHMmKGBuoJCIr5spDfNgGIA4QEHyWphzHT3ARVQjH5 qpjwTpVFIhEFGUXH0FTyEfK8LffB16REEUGd6+HUmrcjQoGuvEBlV7XMFwa3AbHVf1BI4BBJObNsjeo4 WnBhEiHPYYPUvaQK4LZRG2TMPgFOAwRb6POVGxN846 gbQdBN0UGg0EUzGeNM3ecc6KHoLqRIAxWnqRLcx6UNejGX3OsQSxDBrVez8weqSzbrOHa4PmrfWxhWYW TMidDBYcSsBeghXys7OsQQUHCT9aSENlTD3bYz3yRNOtYXXhMdQwOREHNH5SERNzUARyxYJkQUGiWGSM KA6LQSfpLTO4FVWeaqSmuZIiJZugES0QGBNhuoPjHT kgMCBSDQo+Ua5JUK8dm4SzJVelGRKsGA2ali3LRUyWCoRzP7D7zLPdQ4J7KWenSo3JQIQtRNIkGTnnUJ INDTrkDB7EDD7uhzY0VD7PvKZlFGOzBODxiDTrGHy6B83ttJCgPPsuSA9BBDV+Bello+Qu8CURWgQXWoTP BjBhElFJTUFyZiZ8FmB4AFr0HiB8FxDV73dEymfyXs LMvuPE1KCT5cYAAvCOGPCP6XyMXupQ4ffrBbENZrHHIJDsNbM20zsHCwJWLsLGK2PYRrXt1HCMIlJ9Eg ibVrsGymctUmABSjMAVPYH5NAVcasoTzcTWlpGaiYD45aSapGM7OBr4EHbTuNO4tnp2MiRMwYc1IXIHs Gr4JXXSzVFXuHLLcIIM8OTIxRsOoAHwuLHMlLAYqEY A3DHKpAEIoHM1WOyWcAJAiNIo1NvJzATDpUZNurr9UCZNsEQJhPEF9MEHlODTiTMErCWnmGHDvGLDnCJ D4NLDjZBMoDM4HYnEjOHSsNEB9LYYyOPUnMFNljg6UDDCrRTRoFwq8GjWfFPWfTCUmCPxhJTHdAJDtOU E9RLRgXGVbOW5FDrPiTKGxDEJwLHIwSCBsDYAgjy9K TXVeDBGjXLO0GYXlMFFlTWAmODytDVFrTCC6XBM0NKIeLCYwTD2ZBqZfFCIdIXOzBSYiVCCzSNSgdm3A SKRgVCKjEQGvAMKoRVYdLFOxSThbFQVtKZL3OJoiQQWgTTMoGY3LYlYdZOCiRCrhTYszBPIaSFYtrj5A FGPmKHBlBdMkSENwPGGaPXOjZOquQVNwUSK2YiY2YT WhLRLoME9TRzWdESBnGCx1CMKvFXDkXENutn7KSBBkILPkWALtUHPsKJTyMAYwHZwuSLPwWIJ8WrOzBF MhRHZhPG1PYxIwPNVwVKh7MVBuWVYcOHDhvk4JEWLiOZEdHMr7BTTmEKSmDZSaCXx6idYnhIWiLOw0GK 7WP9NzszPgFmUVXv6Yq323LULqYAJtIn5TZ7qwKz3r NWMpGHRRTb6NPHp5VlL9JJAaUuT6TCdxZkGqSNBbSsh0XaR0BfjrIBE5XNo+GMo8CJGfQFTwNfa1K2Rv SGXqDZCxXvp1NRKtVSV5IEhdIP5lTNEASm8+HCyipCRwhWhnLAZTIeHnCVZ3KKrqIVSTPy3R ID Date Data Source [id number] 03/15/2020 10:06:58 AM EDT Lab [facility] [address] [address]Xet# SURGICAL PATHOLOGY REPORTPatient Name:OPAL CARNESOB:1955Received:03/14/2020Accession #:[id number](s) [...] < 60 minutes.Fixation Time: 9 hours 20 minutes.jmdkas/daiReported: 03/15/2020Electronically Signed Out By David Quevedo M.D. jzwPathology [facility] of [facility] [place] [id number] component performed at [facility], Histopathology, [address] [place] [address], [phone].Reported at [facility], [address] [place] [address], [phone].This report may include immunohistochemical or in-situ hybridizationresults. Testing was developed and the performance characteristicsdetermined by [facility], as required byCLIA '88. The FDA has determined that approval for specific use is notnecessary for clinical use. The quality of Hematoxylin and Eosin stainsand as applicable, for all immunohistochemical and/or special stains,including positive and negative controls, were reviewed and consideredappropriate.ICD codes: R92.0 D24.1CPT4 codes: A: 79867GL: 29429O Name Value Range Interpretation Code Description Data Melanie rce(s) Supporting Document(s) ID Date Data Source [id number] 03/16/2020 08:41:00 AM EDT Ines Purnima al DATE OF EXAM: 03/14/2020Addendum BeginsP athology [...] Dr. [facility] .Addendum EndsRight breast stereotactic biopsy. Clinical [...] hematoma. Professional interpretation performed at Dr. Issac Denise [facility] .End of diagnostic report for accession: [id number] Interpreted: David Hurst MDTranscribed: 03/14/2020 12:56 PMSigned: 03/16/2020 08:41 AM David Hurst MD [facility] ACC # [id number] BILL # [id number] CNY Name Value Range Interpretation Code Description Data Melanie rce(s) Supporting Document(s) ID Date Data Source [id number] 03/16/2020 08:41:00 AM EDT [facility] DATE OF EXAM: 03/14/2020Addendum BeginsP athology results reported on 03/15/2020: A) breast, right, core biopsy-focal changes of a fibroadenoma with associated microcalcifications. B) breast, right, core biopsy-benign breast parenchyma. These results are consistent with the findings at the time of biopsy. Routine followup with a postbiopsy mammogram in six months is recommended. Professional interpretation performed at Dr. Issac Hook [facility] at [facility] .Addendum EndsRight breast stereotactic biopsy. Clinical [...] Professional interpretation performed at Dr. Issac Hook [facility] at [facility] .End of diagnostic report for accession: [id number] Interpreted: David Hurst MDTranscribed: 03/14/2020 12:56 PMSigned: 03/16/2020 08:41 AM David Hurst MD [facility] ACC # [id number] BILL # [id number] CN Name Value Range Interpretation Code Description Data Melanie rce(s) Supporting Document(s) ID Date Data Source [id number] 03/12/2020 08:46:36 AM EDT [facility] MAMMO DIGITAL DIAGNOSTIC RIGHT [id number] L RESULTInterpreted by:TIA Pond DIGITAL MAMMOGRAM HISTORY: [...] rce(s) Supporting Document(s) ID Date Data Source [id number] 03/02/2020 04:34:10 PM EDT [facility] Name Value Range Interpretation Code Description Data [facility] rce(s) Supporting Document(s) Progress Note [facility] RDBUIm3eNvGQBcBe35/TNTixPTLhf8SjTIqpGJk9ECwkLWRcP0NrGCQ5xZ9bGTW5FZeXHbUkLtMvXCG1 [facility] [file] F/x4/zmf1Ah93Z1LA1lf71SG+/O1miGzDEksT7z440AIDqYuML7J1q6ih2J1ZY+tibco developer+f4S3UV/OPcSByv [file] AgICAgICAgICAgICAgICAgICAgICAgICAgICAgICAgICAgICAgICAgICAgICAgICAgICAgICAgICAgIC ANCiAgICAgICAgICAgICAgICAgICAgICAgICAgICAg ICAgICAgICAgICAgICAgICAgICAgICAgICAgICAgICAgICAgICAgICAgICAgICAgICAgICAgICAgICAg ICAgICAgICAgICANCiAgICAgICAgICAgICAgICAgICAgICAgICAgICAgICAgICAgICAgICAgICAgICAg ICAgICAgICAgICAgICAgICAgICAgICAgICAgICAgIC AgICAgICAgICAgICAgICAgICAgICANCiAgICAgICAgICAgICAgICAgICAgICAgICAgICAgICAgICAgIC AgICAgICAgICAgICAgICAgICAgICAgICAgICAgICAgICAgICAgICAgICAgICAgICAgICAgICAgICAgIC AgICANCiAgICAgICAgICAgICAgICAgICAgICAgICAg ICAgICAgICAgICAgICAgICAgICAgICAgICAgICAgICAgICAgICAgICAgICAgICAgICAgICAgICAgICAg ICAgICAgICAgICAgICANCiAgICAgICAgICAgICAgICAgICAgICAgICAgICAgICAgICAgICAgICAgICAg ICAgICAgICAgICAgICAgICAgICAgICAgICAgICAgIC AgICAgICAgICAgICAgICAgICAgICAgICANCiAgICAgICAgICAgICAgICAgICAgICAgICAgICAgICAgIC AgICAgICAgICAgICAgICAgICAgICAgICAgICAgICAgICAgICAgICAgICAgICAgICAgICAgICAgICAgIC AgICAgICANCiAgICAgICAgICAgICAgICAgICAgICAg ICAgICAgICAgICAgICAgICAgICAgICAgICAgICAgICAgICAgICAgICAgICAgICAgICAgICAgICAgICAg ICAgICAgICAgICAgICAgICANCiAgICAgICAgICAgICAgICAgICAgICAgICAgICAgICAgICAgICAgICAg ICAgICAgICAgICAgICAgICAgICAgICAgICAgICAgIC AgICAgICAgICAgICAgICAgICAgICAgICAgICANCiAgICAgICAgICAgICAgICAgICAgICAgICAgICAgIC AgICAgICAgICAgICAgICAgICAgICAgICAgICAgICAgICAgICAgICAgICAgICAgICAgICAgICAgICAgIC AgICAgICAgICANCjw/hTFhF1szhJEmnoB1E5zjSn6F Ki6EXL5vs0ZnOQWzQWamzqZjLdzGNlEyVRLeNrxQLqh6PIpvOZ6PxJIhB5NbN4LkHQuqSN9RAHFbFVPy nYJmVLDfCMZiTwP5XYSmVHnuBL6LvTDmNRxxMJMxTYTaScKxYXLnFDEsANEkFQFsMMYQCX3RPuUiM7Hs cY68RDMWTx3+ZIbcsdAnYgeHYjTvVRDpo6NyISd6KI 4RXNCqXtzar8BrKyLaKECZRZdgGN7VEEH9EAZiEVXvLx6EUSVhG335hoWxZL7FOm6KEoCbIA8fhn0NTn FxDYNqGpjZQeu7YCttPW6OtYYeWAnDai3mvlDzdxOVo3ZxyrQrcIVDqYVtPK3xDAWeHQWRACVytPX2Kg iqFdBqUGLhHPbqHJFARDzGAgPkD7Wlh4YvInX4JAOf AmDzBWalKXMxIuV8RX61oFomHX0DQXClGBMzKP46HHWbLUKtZq7FKv6KOdCyZG3jky8BVxPjJYMfIhoU Fqd1HEewUO3PbGYxK2JikQMpr1mFUaUeD8TBAWA2GXSyGs4QWGFeWwUmKRZuTIpeWS3eQUCbFUKGgQgd rxP7NL6TSN2tliJfHP2ABqMxBh4sQe9QGpYnQ0KuR4 TuHGGnCPIBLHpgEX9AIPteAM3vOT4Kf0FWhDNgiV9jvm1IKFFkUBKqQiogrk2MExyjT4D8gGcdTOHnUs PjKHJVHFdwPK2BKOSsVMW6EAAxDHYuIZYJPnRyJ27yRD5YZ3Adf12lYlQ5BYElZvWfRCanEW25bPgmgx OekFKgiMssRJ6SGt0+DQplbmRvYmoNCnhyZWYNCjAg TgKGRwUmRKEvYFEoETQvIkR5DkZeGb4FWFUfAUVsAORmFuIdQHIiMXVzUYuxUWHhQKZeFBK7GEPkUERa CH2SPrNwRVIxPVRiSRmwIIPwUCUkvg2XVBGiVTChAFV5AgJzRGNtZOXgKGnoVZVdWMRnFSguVGZsHUNs SI0BZzWzRSWjJKXpGpenUJTcARNgcp8WXSHwUUUjNY E5TaQlQOPhNPBpOSqvLZIeAAO9OBa7EXQzGTNiCF2EWmCeWITjHMX5GpHnFVRaRNVdpx6ONICkDMPkVC e2JwNhWQZzIHIbXMsfUIPcVKSoXFegFAJdCPTiTM8EItVjKHJmFFW3RMaiFNNcTSQmir0TXSUfJDXrOr Y8EfVnKPVlARWhQXuhBIDqJZGsXQQ3OPOnFXMhMT4K QfPaTIMxHNZhAdwtGPZqRVCeoy7BIEBxGZXkJCs0AvGwWHWbRTBqZHpuFLEbWJJ0LLd5VGVqJEZeHS7J JoPnYQVqMKDhFqBgOZZoKOHwgj5EPDQqXQP8GXZoZYIuXWIwTWVlOPznPMXwXBO2RwadFAKpIVOgTX9E IpVhSRMvXNd4VAWnMTDbQJQuui2MHGEvDPK1MUhcVP IuEIYiRLBjCDthRRNlIED3YPfaHEFpFBByTQ3ZLxSbHEEdAZF2UpUxQOStMPDohn6NFZRxPLC6ZPWpEJ QwDZAlNJFrVSxiTGEmSRJuFMh7XDBiAMKvDV8MDqLwLFSzEYQzWrCyFUHhPRMjah4JJJXoIRX7NhIhSX XcCFEiAZInGZtnVCNoDPNtXOo1EQQqNXUlIX0IDiPg POHzDSA2HSpaBMAkELFolb9EGZUaWYY0LLI2TxEqFGGtLWRkDRnpLZQrIBZ0PSP6HJXrMXSiFD8RQiRb DGHwZMJ8HJOqBGOzPJRgqq7FhRDhvZfefq5TOGjIJm8CbEneXDK3MCfsXg5ppJDcVkFwTOTURc1HwjDw WDFdYTVDTEnwDMIoYPA6IVZyPOW1S7LqFbArOeuqMt HjIHVlYNDuMQNkUVEfCxN7GLk2EjKbEmihQPXaYPU9IURbQNEyDBYwXcPqMPEdPQX+DZ8qNJk+Pg0Kc3 MteuI9pzVmCMc8VOafAJ8XNFMME5TCKa== ID Date Data Source [id number] 02/06/2020 08:36:07 AM EDT [facility] Name Value Range Interpretation Code Description Data Melanie rce(s) Supporting Document(s) Progress Note [facility] SRPIUz3cYgBYKhVe53/GTTgiLJIls5BaXQqmELu8XZscFATkM3BzGUB9qV5tWDJ1RDxOLbLrNnJoIyWn lbm [file] sewer line repairer+aau3kwclbZ14+5v3r2qAMSIxV4mta03a8LJl+i7OpfqhGKphHYSZTz7i9FNMRZRs4CLoN0M38zHF fojSn3N3kBvRThDtJR9wHRrwXhAbjIv3n5NWOhBFg/aFXakzklVS3lFKjeakj3n93gOy+Qs38wuQmxib sEd3NqnWv1l7BnEnFdHCh1d1vRKNmtjY0DSC8X21h+ Rzopxzl29MU6wwyF4EBgvx4PGDaKjQeMmdq+UHykFF5iBW7IeSpenhE6A7IOII9WjXJFQq7Fm9dJpqk1 MSZqWgewyAOI99My35BZoDWtvAwyZ6L1kp55i/tve+Yzf7WMnS2LOYqXNH+NK83TsWdMpsQjRgcg+cGG KQRz1z2LLy26U3yvnJWJm8NAtRffIDhn5BPqLYR0xz 8ngnjg9mJ21aM4g78jNQnSUzP8coBFor0zjIl4iTr2jo0G6gzD41q9hctfPMl/DL3JPSRu16t34PLzG+ CcdYAKfPvGayWHxXUpLWcuiXUURMGv8dumGm+tLcxJzBRZFrcX4SFtLHh72F1O6cJoRaX/VWGmPXxLCv bOa9PgKlV7EIhtinduaKLUizJSYj5dLpvho1OI7zen GRVCsCv6xi6RzPGoBhK3VTYnd1ZFgaMhhtJXvHZ5OLKEDxa2DXBQICy4LefHYigqQBfPZsm+GQAT2PG4 kKk+vaaOnxBiyhY7MlI3mqzhrjzxPtoejAOp0NsNCui1BN/uy3h+A4TCzQqDvOEHTKM0fNzaqJu1NgGZ wtpKZGN4AdctRVYC7CpRY/I4M6zy+e+NXSrlpP8a5/ HaIOHI0m+thania/iuRn1H/zZ20huGvX2S43fOvGDZ5y0/RmU7aN/9buV5quTl+nrXz1KoPmwxzd51rlSzV [file] wyQOzWGvZjDN0UBUx= ID Date Data Source [id number] 02/06/2020 08:30:34 AM EDT [facility] MAMMO DIGITAL SCREENING BILATERAL [id number] INAL RESULTInterpreted by:Ashkan Haywood MDBILATERAL DIGITAL MAMMOGRAM WITH COMPUTER-AIDED DETECTION and TARGETED RIGHT BREAST ULTRASOUNDHISTORY: The patient reports family history of breast cancer in maternal aunt. The patient reports benign left breast biopsies.[facility] [place] risk assessment model:5 year calculated risk: 2.2%Average [...] rce(s) Supporting Document(s) ID Date Data Source [id number] 02/06/2020 08:30:34 AM [facility] US BREAST INCLUDING AXILLA LIMITED RIGHT [id number] RESULTInterpreted by:Ashkan Haywood MDBILATERAL DIGITAL MAMMOGRAM WITH COMPUTER-AIDED DETECTION and TARGETED RIGHT BREAST ULTRASOUNDHISTORY: The patient reports family history of breast cancer in maternal aunt. The patient reports benign left breast biopsies.[facility] [place] risk assessment model:5 year calculated risk: 2.2%Average [...] rce(s) Supporting Document(s) ID Date Data Source [id number] 09/19/2019 06:11:00 AM EST [facility] ([facility]) Name Value Range Interpretation Code Description Data Melanie rce(s) Supporting Document(s) Microscopic observation [Identifier] in Unspecified specimen by Non- gynecological cytology method (SEE NOTE) [facility] ([facility] SPECIMEN: FNA Left lower pole thyroid nodule Specimen received in Cytolyt SPECIMEN ADEQUACY: Satisfactory for evaluation CATEGORIZATION: Benign DESCRIPTIONS: Groups of follicular cells noted, some exhbiting hurthle cell changes. The background consists of rare macrophages and few lymphocytes. COMMENTS: 09/20/2019 - 49 Signed CORNELIA JOY(ASCP) 09/20/2019 0849 (Prelim) Signed Rl Slade MD 09/20/2019 1638 ID Date Data Source [id number] 08/04/2019 04:58:28 PM [facility] Name Value Range Interpretation Code Description Data [facility] rce(s) Supporting Document(s) [facility] LDDJQi5hTqPWLwNc98/IPUofRMXoc5WySTtuJNf6ZEajJULaE0IaJKE2rC8bSAW8HVuNNpMuAePaQRQ8 [facility] [file] E+DQogICAgICAgICAgICAgICAgICAgICAgICAgICAgICAgICAgICAgICAgICAgICAgICAgICAgICAgIC AgICAgICAgICAgICAgICAgICAgICAgICAgICAgICAg ICAgICAgICAgICAgDQogICAgICAgICAgICAgICAgICAgICAgICAgICAgICAgICAgICAgICAgICAgICAg ICAgICAgICAgICAgICAgICAgICAgICAgICAgICAgICAgICAgICAgICAgICAgICAgICAgICAgDQogICAg ICAgICAgICAgICAgICAgICAgICAgICAgICAgICAgIC AgICAgICAgICAgICAgICAgICAgICAgICAgICAgICAgICAgICAgICAgICAgICAgICAgICAgICAgICAgIC AgICAgDQogICAgICAgICAgICAgICAgICAgICAgICAgICAgICAgICAgICAgICAgICAgICAgICAgICAgIC AgICAgICAgICAgICAgICAgICAgICAgICAgICAgICAg ICAgICAgICAgICAgICAgDQogICAgICAgICAgICAgICAgICAgICAgICAgICAgICAgICAgICAgICAgICAg ICAgICAgICAgICAgICAgICAgICAgICAgICAgICAgICAgICAgICAgICAgICAgICAgICAgICAgICAgDQog ICAgICAgICAgICAgICAgICAgICAgICAgICAgICAgIC AgICAgICAgICAgICAgICAgICAgICAgICAgICAgICAgICAgICAgICAgICAgICAgICAgICAgICAgICAgIC AgICAgICAgDQogICAgICAgICAgICAgICAgICAgICAgICAgICAgICAgICAgICAgICAgICAgICAgICAgIC AgICAgICAgICAgICAgICAgICAgICAgICAgICAgICAg ICAgICAgICAgICAgICAgICAgDQogICAgICAgICAgICAgICAgICAgICAgICAgICAgICAgICAgICAgICAg ICAgICAgICAgICAgICAgICAgICAgICAgICAgICAgICAgICAgICAgICAgICAgICAgICAgICAgICAgICAg DQogICAgICAgICAgICAgICAgICAgICAgICAgICAgIC AgICAgICAgICAgICAgICAgICAgICAgICAgICAgICAgICAgICAgICAgICAgICAgICAgICAgICAgICAgIC AgICAgICAgICAgDQogICAgICAgICAgICAgICAgICAgICAgICAgICAgICAgICAgICAgICAgICAgICAgIC AgICAgICAgICAgICAgICAgICAgICAgICAgICAgICAg ODNhMPVaCZVsRCJaRAElFIZjHHCdRFf4I9kvFDEqHRJbHD1qGYd8Wb6+VIfYSgEnNNO8cmEcnN8FYF8o p4EgUHsbMXFht5OoTMm5RE7CXGJsZDkhES8NCKmhoz2MWDHvYLTmiIAAe4qjKuPhMCK4FJXvHlwsFR3N NIRsN0ktprPaJTEtGTOZGDmaZHCHYHwyHJNEFWIhWI ToRdIjLgUgLHZxYL2NQZSyH224ixMsEM4GSj1ROgBsLS0mgo5AVxSeIZLiVweQNue5DFwzVV1XgVXfoQ EdSzIpVJXJRcPvO7ijw7IbLgVdTCODCSrjBV7Uz7IdoRTjLWf+Xl9BNV8yr7ApOEiiPuUyTL7rhi8DTG dXTvKeB3PyqWndSTNdjaG3fCEyPOH1RNHnNN1ce29n DISCjFpxrX8oj89aPQ2KOUT7CBMsZW3xKMNlMSV0HpMsBSRJKW7QYQVvHBNdtXOhMSPeJUMRCS6AWSdg IIG1GUEgvdUhePSyHEmeVY3JUALxsiEkXjGdFWTYYZh+Ka7FPH4up3RtRZljMsQqVM6acf9WLKfREiIf H6Y2ySDfX0A0HWliGo7APBVuNYBnQxQmBXYWOEzcNI 8MWU9vmzQ7WJ6RnNVoQNPgPPMnhNLtRZf7O61vnPIrUPdjLX9JOUE+Bello+Pp5MRHUvLUQlXJUjOeYpLV JFDoZgN3TkI2BYm8ZbU2MmHE16oXhxevXgLFseHM1LYT4rBFLuZGCWWJ5DuXBlxL4iowEmMHWuXKJCAf QdC73mtCEsTJDcOSM5RJEpPq4AFLCkL5RmpdKegCef ntRfATUbHCXPRT9SMPoyeyZpzXZbqEgbMB32zYirAI8LXg9GWnVzFC3dyq6OtFXsNy0UCCSpQS7MIVUi PEPoSEHvEES2ZLJiHvFfCRpzQKDiSHSuDYO3DVJmDYDtNX3BMxMhFVGcQNV0AEXnFQTlBYBzrl8EMMDe OCS1FhX8HDRiDNLhKHNeTAfrRDEzUEReFDF4DASuKE NwNK7QJlYzONOeXYMmNDrjOAFaNXCgqi0LWZZzRDEcZeJnWrMjATPkQRRnQNauFBBrJHI3RBWzWRVfEI NtYE4IRaPhBTWbOZUqQcRjHWJuNHJxji6DDFIaDMKwJUQ2KJNiUCPsGYRvFEpqIOLmJWD6OKSsWWNlKP OqAH3XPnJlGYJrRIG5BTOwDPSjJHVjjh9PQXCaOUUe FFToEmStQCSxAYAfIXuhESOpGLQdJlw9MPZwTACdWO8XErNyLDYnQPQ7BXVmXEHoHLMrtp2DWXAbNDQp Slv3FfVoNZNoXOXrAEuiXTVdBVAyHZXeLJHeZHCeKP5PPtCgQWUkRHHqGHXtKYQjVISrcj1PCWAsENSe CNAhNaFjIBQqUNTlFIyzXZQpTIA3SPL3XFPpEOLqEH 0ZVxOfYFGmRMO4BSVeMHKaHVEvdh6ZQXBkXGIaOHF7KuExVWVaGTRxYWsfKYLfENB7ReO9BEYkWJAyGJ 9HRmVhJOWmTJN3DrTbMLRmKHNnmw5YSHIqHGAnKxJxVxXfDKLaOOJbBJvrGZEjMRK3QdF6PXMqRBSgBW 1LHmIlQDIwBey1CTUlWFNwDFDcfi9BIILaNFHiXCB4 KyTeUCViBYOfPXebRCSlGYL4WlR0IBOjYIChHG9XUtLnQYHtFhubGcFfATLqRADiaj1CQVWcNQDlGQU4 PKChJMQuFRZuLHvdSFMsAKI3OPI9PLIvIUUfLQ2HGiRqOYOjKmo2EUzrFNQcGNEizm0BLWOkFHJ8NGO7 IREjRXVbKVLhOAwmSYKwMEYxKVV6OAUsRKEaYV5WYx WzVDKwKDW7ZOuaRAApVAPqdy3NITQiFDK9FhQ9QCGwLXMiWOJlBMgjZPGwLBZdSrD8VKRqSUEbUW2SNo GzSPrlYDLBGpr5GWlxJ9l9UZVyDZ0HZ1Rvd7XnSrmaRWJXOEisWV9eifAxZNWuVh3RR3qUPul5MaL7FR DbVmS6YGHgGCX9ZiG8VUanKeOpGnDaIaJfBI1fSNpv IUNtGUGoHlt8LNM2RMl2RWU0TZK8JzRsZBWdZNG8TqBpQG4ZJp7JLeY7NHF6jIJnKt2SWBF2EIKKZhFb LA6LRTx= ID Date Data Source [id number] 08/03/2019 06:59:[address] PM [facility] CT HEAD WITHOUT CONTRAST [id number] RESU LTInterpreted by:Jimena Plunkett MDINDICATION: Transferred from [facility] with worsening intracranial bleed after falling several weeks ago..TECHNIQUE: Contiguous axial CT images of the head from the base of the skull to the vertex without IV contrast. Automated dose lowering techniques and/or adjustment according to patient size were utilized for this exam.COMPARISON: CT head from [facility] dated 08/03/2019.FINDINGS: High density material within the [...] rce(s) Supporting Document(s) ID Date Data Source [id number] 08/03/2019 06:57:26 PM EST [facility] Name Value Range Interpretation Code Description Data Melanie rce(s) Supporting Document(s) ED Provider Note [facility] WDNAKl0tBoPDPkWp55/FZRalBPWsn8SoFFbsELc2JGhaNOQuJ8QeHYZ7kH9kTRE8AOxYUhVmAvElJPW6 lbm [file] 0WYA8mvtH7QS1GbALmYMBkLJVioBDrWTw8T36pcVUtWWbeAD1NPIB+Bello+Fn6HFAJyWMXxXNFvErOrZN OZGeSwK0LmM0NIo1PoK7YePA32dQijpaDpDXomSQ3X SO6dCKQxSECIBX5GwLBjcB3pujT1LiRvUNKUZmUhE51mwMEyFKMwZEQ9WCBvLe7XYZCvA1BzmfYupTac dpPiMIEfIVMLSD4ANYyjnhNxgZQerZunGX60zOpgGU5SZk8TGqCjBE9nqe4PxFHlWd5GEKQ7Tg4LOJBt WTVeIPAoIRB5IFDiIpOhHVpzJZIfLXFwXEA8ZTPzNJ DlDX2BPhAnMBSqMDVpQaPkMCQbJLZjss6OWKKjGMP7QwHjXMAyYWRxRPWuZVkiXNYhNPOqLDD1HQAlWG CbDZ2WYiFmGXMuBLZzJbIrETHbTNRxjc9PTQXyGOAeJfOfARPxUBFeNVIyVPlhQYBvWRV7YtgxCAMzEZ RlKL6CDdAaRHJlQJK8UngmXVZrLGQcnh5HXFLdUTVc IXZ7UWBkKPHaVCKjPCnoTPLcTUM3GBv0FTRkAJOdOC9CIcUvSCJxUFN0QnXmWUKxSBTuja7WLJXrFTYc KWp7YtKmMSGvYBGpIAufFDCnNKE0IyF0SFUiEGSvLH3LMwWiUULtBQA4CPYxLRZcEXGktv3MHZUhSDIo FrG1JBGwJTWxIRExKOriVCHtKTX2COE6ANPhCPXbVI 0XYtHgDKQdQrAeDJIiSERmSYLowm5QZEBwOBCbZVX2BKIpDJWoGNEoSGoxBAOnTFPfXQAtQKWgTTBvTN 8MRlGwYUYmKkWgSgRqXTEeNAKzfs6IHYRzBNGqOfX0VBOyUPHiKTItTRinJNHeOXD9OqQ7ONBnBFFhZV 9IJpNzIJDjUouuLSIkYAMnRVGrte1ZJNJnVGPgRZU3 QRVfFNLcMMChKLleXHRsBTWvMKXbNSTlEVXbCA5XGwKbYKTtVgS4GPmcZSZnZIDnse4DZSClIELkXlW0 MLSfLQMgYPEoXOojNBLkQMYjLxDiHYJaCMYeYD0MMrTbZRWxLjK6YvOoYHRpJCWwai8QTUHtURQsEWiz XgDlQXOnMDRuQNjgILSiQTP7VNNpFCEuEJJwQM7FGx HfRYGdGwS0KJnnGNHnIJCzdb9XNPWiNLQoTsG1LXTxKAAcUUOeHCvqRLAjJXK7RxH8LSPlDXXrJZ1ALn WaSPTrWGy3GvOhMCQqVVObqf4GXTExRMB9CVF8YxAxXMMfGNFoSZncKOBjCWO6UtAkEUBfLZQsDC5TDm FeBZZzPRs2SUOnDFOePGPqvz5NDYXvCBQ9EDW2BrZk LNWmDYQfZYwaFRFrJCN1KMikXQPvDTYaUI1VLpGjJXCfTHe8PpouELCxPKPdno7PRVYwFEL0ETp3BwNu LHLgKBJcLBnxDVZiLFDiTUZiWMDcWVKqRK7GRtVoDBLqUJAxCXApAEFrOSIbka6DJAIqFPI3LSX5SvOb YBEmEIHdDNmdMGOwWDVrAzl4SHPeUFTiUE9PYmAdZT CkAAWeXLclNLLlWLMyhb6ANFFcTNK0LdD0VKQnFECsQSJlYQwdXGXvUUNmPRN1FPLvXZPpNJ0EQdVkMJ UdOGC0ShXdYOUtBEGyic4XXIAkQNK3Axl3PEUpEBIcJERgQVr1zkTqwKKkRQf5QF1UR4CdgeWiGJQJWo 7Tv924NHDmNLOwOd4DF3fgFt7aRWEySVLDQt8BMZr4 ZJApA6BbQXc2MLYeGQGcOuL4GSNpMrB8NlPgMIC0YrG+VGfdIfObInFjMRc3LAEkOORsBeuzLaTyFnHl JfXsUYYkNO2oVEDNZt0+AUlmzPBbqBdhZUFZUsF8AES2PIcuSIAMPd9T ID Date Data Source [id number] 08/03/2019 06:53:12 PM [facility] CT LUMBAR SPINE WITHOUT CONTRAST [id number] NAL RESULTInterpreted by:Jimena Plunkett MDINDICATION: 63-year-old female [...] the L1 vertebral body which exhibits a hwqd-ueb-ysedrd appearance and based on comparison with MR spine dated 06/05/2009 likely represents a vertebral hemangioma.IMPRESSION: 1. No acute fracture or traumatic listhesis.2. Degenerative changes as described.3. Osseous lesion of the L1 vertebral body compatible with a vertebral hemangioma.This document has been electronically signed by Charlene Salinas MD on 08/03/2019 6:51 PM Name Value Range Interpretation Code Description Data [facility] rce(s) Supporting Document(s) ID Date Data Source [id number] 08/03/2019 04:20:39 PM [facility] Name Value Range Interpretation Code Description Data [facility] rce(s) Supporting Document(s) Leukocytes [#/volume] in Blood by Automated count 5.9 10*3/uL 4-10 [facility] Erythrocytes [#/volume] in Blood by Automated count 3.72 10*6/uL 4.1- 5.3 L [facility] Hemoglobin [Mass/volume] in Blood 12.3 g/dL 11.5-15.5 [facility] Hematocrit [Volume Fraction] of Blood by Automated count 36.5 % 3 6-45 [facility] Erythrocyte mean corpuscular volume [Entitic volume] by Auto mated count 98.1 fL 80-96 H [facility] Erythrocyte mean corpuscular hemoglobin [Entitic mass] by Automated count 33.1 pg 27-33 H [facility] Erythrocyte mean corpuscular hemoglobin concentration [Mass/volume] by Automated count 33.7 g/[facility] width [Ratio] by Automated count 14.3 % 11.5-14.5 [facility] Platelets [#/volume] in Blood by Automated count 95 10*3/uL 150-400 L [facility] Differential cell count method - Blood [facility] Neutrophils/100 leukocytes in Blood by Automated count 62 % [facility] Lymphocytes/100 leukocytes in Blood by Automated count 24 % [facility] Monocytes/100 leukocytes in Blood by Automated count 10 % [facility] Eosinophils/100 leukocytes in Blood by Automated count 3 % [facility] Basophils/100 leukocytes in Blood by Automated count 1 % [facility] Neutrophils [#/volume] in Blood by Automated count 3.71 10*3/uL 1.8-7 .0 [facility] Lymphocytes [#/volume] in Blood by Automated count 1.40 10*3/uL 1.2-4 .0 [facility] Monocytes [#/volume] in Blood by Automated count 0.62 10*3/uL 0-0.8 [facility] Eosinophils [#/volume] in Blood by Automated count 0.17 10*3/uL 0-0.5 [facility] Basophils [#/volume] in Blood by Automated count 0.04 10*3/uL 0-0.2 [facility] Nucleated erythrocytes/100 leukocytes [Ratio] in Blood by Automated count 0 /100{WBCs} 0-0 [facility] ID Date Data Source [id number] 08/03/2019 04:36:07 PM [facility] Name Value Range Interpretation Code Description Data Melanie rce(s) Supporting Document(s) Prothrombin time (PT) 12.9 s 12.5-14.9 [facility] INR in Platelet poor plasma by Coagulation assay 0.94 [facility] Routine intensity oral anticoagulation I NR is typically 2.0-3.0. Target INR must be clinically individualized. ID Date Data Source [id number] 08/03/2019 04:36:07 PM [facility] Value Range Interpretation Code Description Data Melanie rce(s) Supporting Document(s) aPTT in Platelet poor plasma by Coagulation assay 30.0 s 24.0-34. 0 [facility] ID Date Data Source [id number] 08/03/2019 04:49:30 PM [facility] Value Range Interpretation Code Description Data Melanie rce(s) Supporting Document(s) Bicarbonate [Moles/volume] in Serum 25 mmol/L 22-29 [facility] Chloride [Moles/volume] in Serum or Plasma 97 mmol/L 98-107 L [facility] Creatinine [Mass/volume] in Serum or Plasma 5.83 mg/dL 0.50-0.90 H [facility] Glucose [Mass/volume] in Serum or Plasma 85 mg/dL 70-140 [facility] Potassium [Moles/volume] in Serum or Plasma 5.0 mmol/L 3.4-5.1 [facility] Hemolyzed Sodium [Moles/volume] in Serum or Plasma 139 mmol/L 136-145 [facility] Urea nitrogen [Mass/volume] in Serum or Plasma 28 mg/dL 8-23 H [facility] Anion gap 3 in Serum or Plasma 17 mmol/L 8-15 H [facility] Osmolality of Serum or Plasma by calculation 293 mosm/kg 275-300 [facility] Creatinine/Urea nitrogen [Mass Ratio] in Serum or Plasma 5 [facility] Calcium [Mass/volume] in Serum or Plasma 9.3 mg/dL 8.8-10.2 [facility] Glomerular filtration rate/1.73 sq M pre dicted among non-blacks [Volume Rate/Area] in Serum or Plasma by Creatinine-based formula (MDRD) 7 mL/min/1.73m2 >60 L [facility] Glomerular filtration rate/1.73 sq M pre dicted among blacks [Volume Rate/Area] in Serum or Plasma by Creatinine-based formula (MDRD) 8 mL/min/1.73m2 >60 L [facility] Procedure Social History Code Duration Value Status Description Data Source(s ) Alcohol intake 08/31/2020 12:00:00 AM EST Current non-d marisa of alcohol (finding) completed Current non-drinker of alcohol (finding) [facility] Tobacco use and exposure 08/31/2020 12:00:00 AM EST Never used co mpleted Never used [facility] Cigarette pack-years 08/31/2020 12:00:00 AM EST [facility]K [facility] Cigarettes smoked current (pack per day) - Reported 08/31/19 12:00:00 AM EST UNK [facility] Smoking 08/31/2020 12:00:00 AM EST Former smoker completed Former smoker [facility] Smoking 08/03/2020 12:00:00 AM EST Former Smoker completed Former Smoker [email or web address] ([facility]) Alcohol intake 03/21/2020 12:00:00 AM EDT Current non-d marisa of alcohol (finding) completed Current non-drinker of alcohol (finding) [facility] Alcohol intake 02/20/2020 12:00:00 AM EDT Current non-d marisa of alcohol (finding) completed Current non-drinker of alcohol (finding) [facility] Cigarette pack-years 02/20/2020 12:00:00 AM EDT UNK completed [facility] Cigarettes smoked current (pack per day) - Reported 02/20/20 12:00:00 AM EDT UNK completed [facility] Smoking 02/20/2020 12:00:00 AM EDT Former smoker completed Former smoker [facility] Smoking 02/09/2020 12:00:00 AM EDT Former Smoker completed Former Smoker [email or web address] ([facility]) Smoking 02/09/2020 12:00:00 AM EDT Former Smoker completed Former Smoker [email or web address] ([facility]) Smoking 02/09/2020 12:00:00 AM EDT Former Smoker completed Former Smoker [email or web address] ([facility]) Smoking 02/09/2020 12:00:00 AM EDT Former Smoker completed Former Smoker [email or web address] ([facility]) Smoking 02/09/2020 12:00:00 AM EDT Former Smoker completed Former Smoker [email or web address] ([facility]) Smoking 02/09/2020 12:00:00 AM EDT Former Smoker completed Former Smoker [email or web address] ([facility]) Smoking 02/09/2020 12:00:00 AM EDT Former Smoker completed Former Smoker [email or web address] ([facility]) Smoking 02/09/2020 12:00:00 AM EDT Former Smoker completed Former Smoker [email or web address] ([facility]) Smoking 02/09/2020 12:00:00 AM EDT Former Smoker completed Former Smoker [email or web address] ([facility]) Smoking 02/09/2020 12:00:00 AM EDT Former Smoker completed Former Smoker [email or web address] ([facility]) Smoking 02/09/2020 12:00:00 AM EDT Former Smoker completed Former Smoker [email or web address] ([facility]) Alcohol intake 02/03/2020 12:00:00 AM EDT Current non-d marisa of alcohol (finding) completed Current non-drinker of alcohol (finding) [facility] Cigarette pack-years 02/03/2020 12:00:00 AM EDT UNK completed [facility] Cigarettes smoked current (pack per day) - Reported 02/03/20 12:00:00 AM EDT UNK completed [facility] Smoking 02/03/2020 12:00:00 AM EDT Former smoker completed Former smoker [facility] Smoking 09/25/2019 12:00:00 AM EST Former Smoker completed Former Smoker eCW1 ([facility]) Smoking 09/25/2019 12:00:00 AM EST Former Smoker completed Former Smoker eCW1 ([facility]) Alcohol intake 08/03/2019 12:00:00 AM EST Current non-d marisa of alcohol (finding) completed Current non-drinker of alcohol (finding) [facility] Cigarette pack-years 08/03/2019 12:00:00 AM EST UNK [facility] Cigarettes smoked current (pack per day) - Reported 08/03/19 12:00:00 AM EST UNK completed [facility] Smoking 08/03/2019 12:00:00 AM EST Former smoker completed Former smoker [facility] Vital Signs ID Date Data Source UNK Name Value Range Interpretation Code Description Data Source(s) Oxygen saturation in Arterial blood by Pulse oximetry 91 % 91 % [facility] ([facility]) Body mass index (BMI) [Ratio] 34.4 kg/m2 34.4 k g/m2 [facility] ([facility]) Body weight 176.12 [lb_av] 176.12 [lb_av] [facility] Body height 60 [in_i] 60 [in_i] [facility] ([facility]) 5'0" Heart rate 61 /min 61 /min [facility] ([facility]) Diastolic blood pressure 64 mm[Hg] 64 mm[Hg] [facility] ([facility]) Systolic blood pressure 110 mm[Hg] 110 mm[Hg] [facility] Oxygen saturation in Arterial blood by Pulse oximetry 96 % 96 % [facility] ([facility]) Body mass index (BMI) [Ratio] 33.7 kg/m2 33.7 k g/m2 [facility] ([facility]) Body weight 172.44 [lb_av] 172.44 [lb_av] [facility] ([facility]) Body height 60 [in_i] 60 [in_i] [facility] ([facility]) 5'0" Heart rate 100 /min 100 /min [facility] ([facility]) Diastolic blood pressure 86 mm[Hg] 86 mm[Hg] [facility] ([facility]) Systolic blood pressure 126 mm[Hg] 126 mm[Hg] M EDENT ([facility]) Oxygen saturation in Arterial blood by Pulse oximetry 97 % 97 % [facility] ([facility]) Body mass index (BMI) [Ratio] 33.7 kg/m2 33.7 k g/m2 [facility] ([facility]) Body weight 172.50 [lb_av] 172.50 [lb_av] [facility] T ([facility]) Body height 60 [in_i] 60 [in_i] [facility] ([facility]) 5'0" Heart rate 99 /min 99 /min [facility] ([facility]) Diastolic blood pressure 62 mm[Hg] 62 mm[Hg] [facility] ([facility]) Systolic blood pressure 136 mm[Hg] 136 mm[Hg] M EDENT ([facility]) Diastolic blood pressure 70 mm[Hg] 70 mm[Hg] eCW1 ([facility]) Systolic blood pressure 118 mm[Hg] 118 mm[Hg] e CW1 ([facility]) Body temperature 97.1 [degF] 97.1 [degF] eCW1 ( [facility]) Respiratory rate 18 /min 18 /min eCW1 ([facility]) Heart rate 128 /min 128 /min eCW1 ([facility]) Body mass index (BMI) [Ratio] 32.33 kg/m2 32.33 kg/m2 W1 ([facility]) Body height 62 [in_us] 62 [in_us] eCW1 ([facility]) Body weight Measured 176.8 [lb_av] 176.8 [lb_av ] eCW1 ([facility]) Diastolic blood pressure 76 mm[Hg] 76 mm[Hg] eCW1 ([facility]) Systolic blood pressure 122 mm[Hg] 122 mm[Hg] e CW1 ([facility]) Body temperature 97.2 [degF] 97.2 [degF] eCW1 ( [facility]) Respiratory rate 20 /min 20 /min eCW1 ([facility]) Heart rate 116 /min 116 /min eCW1 ([facility]) Body mass index (BMI) [Ratio] 31.16 kg/m2 31.16 kg/m2 eCW1 ([facility]) Body height 62 [in_us] 62 [in_us] eCW1 ([facility]) Body weight Measured 170.4 [lb_av] 170.4 [lb_av ] eCW1 ([facility]) ID Date Data Source [id number] 08/31/2020 11:51:39 AM [facility] Name Value Range Interpretation Code Description Data Source(s) PREFERRED NAME Maryjo Maryjo [facility] ID Date Data Source [id number] 08/31/2020 11:51:23 AM [facility] Name Value Range Interpretation Code Description Data Source(s) PREFERRED NAME Maryjo Maryjo [facility] ID Date Data Source [id number] 08/31/2020 11:51:23 AM [facility] Name Value Range Interpretation Code Description Data Source(s) PREFERRED NAME Maryjo Maryjo [facility] ID Date Data Source [id number] 09/04/2020 08:21:24 AM [facility] Name Value Range Interpretation Code Description Data Source(s) WEIGHT RECORDED 176 lb 176 lb [facility] Body height Measured 60 in 60 in [facility] PREFERRED NAME Maryjo Maryjo [facility] PREFERRED NAME Maryjo Maryjo [facility] ID Date Data Source [id number] 09/04/2020 08:06:09 AM [facility] Name Value Range Interpretation Code Description Data Source(s) PREFERRED NAME Maryjo Maryjo [facility] PREFERRED NAME Maryjo Maryjo [facility] ID Date Data Source [id number] 09/04/2020 08:06:09 AM [facility] Name Value Range Interpretation Code Description Data Source(s) PREFERRED NAME Maryjo Maryjo [facility] PREFERRED NAME Maryjo Maryjo [facility] ID Date Data Source [id number] [facility] Value Range Interpretation Code Description Data Source(s) WEIGHT RECORDED 183 lb 183 lb [facility] Body height Measured 60 in 60 in [facility] ID Date Data Source [id number] 03/02/2020 04:34:10 PM EDT [facility] Name Value Range Interpretation Code Description Data Source(s) WEIGHT RECORDED 178 lb 178 lb [facility] Body height Measured 60 in 60 in [facility] ID Date Data Source [id number] [facility] Interpretation Code Description Data Source(s) WEIGHT RECORDED 177 lb 177 lb [facility] Body height Measured 60 in 60 in [facility] ID Date Data Source [id number] 02/06[facility] Interpretation Code Description Data Source(s) WEIGHT RECORDED 177 lb 177 lb [facility] Body height Measured 60 in 60 in [facility] ID Date Data Source [id number] 08/05/2019 07:42:49 AM EST [facility] Value Range Interpretation Code Description Data Source(s) WEIGHT RECORDED 165 lb 165 lb [facility] Body height Measured 60 in 60 in [facility] Patient Treatment Plan of Care Planned Activity Planned Date Details Description Data Source (s) Acetaminophen 325 MG / Oxycodone Hydrochloride 5 MG Or al Tablet 08/23/2020 12:00:00 AM EST eCW1 ([facility]) Acetaminophen 325 MG / Hydrocodone Bitartrate 5 MG Ora l Tablet [[place]] 07/19/2020 12:00:00 AM EST eCW1 ([facility]) Acetaminophen 325 MG / Hydrocodone Bitartrate 5 MG Ora l Tablet [[place]] 07/19/2020 12:00:00 AM EST eCW1 ([facility]) Acetaminophen 325 MG / Hydrocodone Bitartrate 5 MG Ora l Tablet [[place]] 06/06/2020 12:00:00 AM EST eCW1 ([facility]) Acetaminophen 325 MG / Hydrocodone Bitartrate 5 MG Ora l Tablet [[place]] 05/25/2020 12:00:00 AM EDT eCW1 ([facility]) Acetaminophen 325 MG / Hydrocodone Bitartrate 5 MG Ora l Tablet [[place]] 05/25/2020 12:00:00 AM EDT eCW1 ([facility]) Acetaminophen 325 MG / Hydrocodone Bitartrate 5 MG Ora l Tablet [[place]] 05/25/2020 12:00:00 AM EDT eCW1 ([facility]) Acetaminophen 325 MG / Hydrocodone Bitartrate 5 MG Ora l Tablet 05/23/2020 12:00:00 AM EDT eCW1 ([facility]) Acetaminophen 325 MG / Hydrocodone Bitartrate 5 MG Ora l Tablet 01/17/2020 12:00:00 AM EDT eCW1 ([facility]) Acetaminophen 325 MG / Hydrocodone Bitartrate 5 MG Ora l Tablet 01/17/2020 12:00:00 AM EDT eCW1 ([facility]) Acetaminophen 325 MG / Hydrocodone Bitartrate 5 MG Ora l Tablet 11/25/2019 12:00:00 AM EDT eCW1 ([facility]) Acetaminophen 325 MG / Hydrocodone Bitartrate 5 MG Ora l Tablet 10/21/2019 12:00:00 AM EDT eCW1 ([facility]) Acetaminophen 325 MG / Hydrocodone Bitartrate 5 MG Ora l Tablet 09/14/2019 12:00:00 AM EST eCW1 ([facility]) One Touch Delica 33 gauge 08/29/2019 12:00:00 AM EST eCW1 ([facility]) OneTouch Verio - 08/29/2019 12:00:00 AM EST eCW1 ([facility]) One Touch Delica 33 gauge 08/29/2019 12:00:00 AM EST eCW1 ([facility]) OneTouch Verio - 08/29/2019 12:00:00 AM EST eCW1 ([facility]) One Touch Delica 33 gauge 08/29/2019 12:00:00 AM EST eCW1 ([facility]) OneTouch Verio - 08/29/2019 12:00:00 AM EST eCW1 ([facility]) OneTouch Verio - 08/29/2019 12:00:00 AM EST eCW1 ([facility]) One Touch Delica 33 gauge 08/29/2019 12:00:00 AM EST eCW1 ([facility]) Metoprolol Tartrate 50 MG Oral Tablet 08/26/2019 12:00:00 AM EST eCW1 ([facility]) Metoprolol Tartrate 50 MG Oral Tablet 08/26/2019 12:00:00 AM EST eCW1 ([facility]) Metoprolol Tartrate 50 MG Oral Tablet 08/26/2019 12:00:00 AM EST eCW1 ([facility]) Metoprolol Tartrate 50 MG Oral Tablet 08/26/2019 12:00:00 AM EST eCW1 ([facility]) Metoprolol Tartrate 50 MG Oral Tablet 08/26/2019 12:00:00 AM EST eCW1 ([facility]) Metoprolol Tartrate 50 MG Oral Tablet 08/26/2019 12:00:00 AM EST eCW1 ([facility]) Metoprolol Tartrate 50 MG Oral Tablet 08/26/2019 12:00:00 AM EST eCW1 ([facility]) Acetaminophen 325 MG / Hydrocodone Bitartrate 5 MG Ora l Tablet 08/15/2019 12:00:00 AM EST eCW1 ([facility]) 30 ACTUAT umeclidinium 0.0625 MG/ACTUAT / vilanterol 0.025 MG/ACTUAT Dry Powder Inhaler 08/03/2019 12:00:00 AM EST [facility] Acetaminophen 325 MG / Hydrocodone Bitartrate 5 MG Ora l Tablet 07/15/2019 12:00:00 AM EST eCW1 ([facility]) Tiotropium [place]-Olodaterol 2.5-2.5 MC G/ACT Inhalation Aerosol Solution (STIOLTO RESPIMAT) 07/05/2019 12:00:00 AM [facility] sucroferric oxyhydroxide 500 MG Chewable Tablet [facility] b complex-vitamin c-folic acid (NEPHRO-GUILHERME) 0.8 MG [facility]
[2020-09-12] MEDS ORDERED: NORCO, ANEXSIA 5/325MG TABLET (HYDROcodone/ACETAMINOPHEN) PO ONE (21:15)
--- OUTSIDE RECORDS SUMMARY | 2020-09-12 21:38 | CCD ---
Author Author [facility] Organization [facility] Address Unknown Phone Unavailable Care Team Providers Care Graphic Design Intern Name Role Phone Peggy Avila MD Unavailable [...] SAVICI, Lamont SABILLON MD Unavailable Unavailable SAVICI, Lmaont SABILLON MD Unavailable Unavailable SAVICI, Lamont SABILLON [...] Unavailable Unavailable ASHISH RAE MD Unavailable Unavailable SAHISH RAE MD Unavailable Unavailable ASHISH RAE MD [...] is protected by Article 27-F of the [facility] Public Health law. If you continue you may have access to information: Regarding HIV / AIDS; Provided by facilities licensed or operated by the [facility] Office of Mental Health; or Provided by the [facility] Office for People With Developmental Disabilities. If such information is present, then the following [facility] mandated warning applies: This information has been [...] law may result in a fine or alf sentence or both. A general authorization for the release of medical or other information is NOT sufficient authorization for further disc losure. Allergies and Adverse Reactions Type Description Substance Reaction Status Data Source(s ) Drug allergy Gatifloxacin gatifloxacin Anaphylaxis Active eCW1 ( [facility]) Azithromycin Azithromycin Azithromycin dyspnea, face an d lips swelling and tingling - seen in the ER 07/2016 Active eCW1 ([facility]) tequin tequin tequin Anaphylaxis Active [facility] tequin tequin tequin Anaphylaxis Active eCW1 ([facility]) Family History Family Member Name Family Member Gender Family Member Status Date o f Status Description Data Source(s) Unknown Unknown Problem MEDENT ([facility]) Unknown Unknown Problem MEDENT ([facility] [employer]) Unknown Female Problem MEDENT ([facility]) Encounters Encounter Providers Location Date Indications Data Source(s ) Outpatient Attender: STACY CORDERO 03/07/2021 12:00:00 AM [facility] Outpatient Referrer: STACY CORDERO 03/07/2021 12:00:00 AM [facility] Outpatient Referrer: STACY CORDERO 03/07/2021 12:00:00 AM [facility] Outpatient Attender: STACY CORDEROReferrer: STACY CORDERO [id number] 08/31/2020 12:00:00 AM EST - 08/31/2020 11:51:33 AM EST Encounter for screening mammogram for malignant neoplasm of breast [facility] Encounter for screening mammogram for ma lignant neoplasm of breast Outpatient Referrer: STACY CORDERO 08/31/2020 12:00 :00 AM EST Mammographic calcification found on diagnostic imaging of breast [facility] Mammographic calcification found on diag nostic imaging of breast Outpatient Referrer: STACY CORDERO 08/31/2020 12:00 :00 AM EST Unspecified lump in the right breast, unspecified quadrant [facility] Unspecified lump in the right breast, un specified quadrant [place] [address] [facility] [address] 08/23/2020 12:00:00 AM EST [facility] Outpatient Attender: STACY CORDEROReferrer: STACY CORDERO 08/08/2020 12:00:00 AM [facility] Outpatient Referrer: STACY CORDERO 08/08/2020 12:00:00 AM [facility] Outpatient Referrer: STACY CORDERO 08/08/2020 12:00:00 AM [facility] Outpatient Attender: Lucio Munoz MDReferrer: Aiden Nieves MD 08/01/2020 04:00:01 PM EST [facility] Recurring Patient Attender: Lucio Milnererrer: Aiden Gilmore dd, MD 08/01/2020 12:19:42 PM EST [facility] [place] [address] [facility] [address] 07/30/2020 12:00:00 AM EST [facility]CW[facility] [place] [address] [facility] [address] 07/23/2020 12:00:00 AM EST [facility]CW1 ([facility]) [place] [address] [facility] [address] 07/16/2020 12:00:00 AM EST eCW1 ([facility]) [place] [address] [facility] [address] 06/06/2020 12:00:00 AM EST eCW1 ([facility]) [place] [address] [facility] [address] 06/01/2020 12:00:00 AM EST eCW1 ([facility]) Outpatient Referrer: STACY CORDERO 05/28/2020 12:00:00 AM [facility] Outpatient Attender: STACY CORDEROReferrer: STACY CORDERO 05/28/2020 12:00:00 AM [facility] [place] [address] [facility] [address] 05/24/2020 12:00:00 AM EDT eCW1 ([facility]) [place] [address] [facility] [address] 05/23/2020 12:00:00 AM EDT eCW1 ([facility]) [place] [address] [facility] [address] 05/17/2020 12:00:00 AM EDT eCW1 ([facility]) [place] [address] [facility] [address] 05/14/2020 12:00:00 AM EDT eCW1 ([facility]) Outpatient Attender: STACY CORDEROReferrer: STACY CORDERO 05/11/2020 12:00:00 AM [facility] Outpatient Referrer: STACY CORDERO 05/11/2020 12:00:00 AM [facility] Unknown [address] [facility] [address] 05/01/2020 12:00:00 AM EDT eCW1 ([facility]) [place] [address] [facility] [address] 04/26/2020 12:00:00 AM EDT eCW1 ([facility]) Outpatient [id number] 04/17/2020 10:46:[address] [facility] Outpatient Referrer: STACY CORDERO 04/09/2020 12:00:00 AM [facility] Outpatient Attender: STACY CORDERO 04/09/2020 12:00:00 AM [facility] Outpatient Attender: RIDGE BAKER MD [id number] 08/26/2 020 12:00:00 AM EDT - 03/21/2020 02:47:09 PM EDT Centrilobular emphysema [facility] Centrilobular emphysema Outpatient Attender: RIDGE BAKER MDReferrer: RIDGE BAKER MD 03/21/2020 12:00:00 AM EDT Other [facility] Other nonspecific abnormal finding of marybel ng field Attender: Tiffanie Avila MD 03/15/2020 10:06:58 AM ED T [facility] Outpatient Attender: 0000{ [facility] 03/14/2020 10:57:00 AM E DT [facility] Outpatient Attender: Tiffanie Avila MD 03/14/2020 10:57:00 AM EDT RIGHT BREAST CALCS [facility] RIGHT BREAST CALCS Outpatient Attender: Tiffanie Avila MD [id number] 03/02/2020 12:00:00 AM EDT - 03/02/2020 11:26:16 AM EDT [facility] Outpatient Referrer: STACY CORDERO 02/20/2020 12:00 :00 AM EDT Other abnormal and inconclusive findings on diagnostic imaging of [facility] Other abnormal and inconclusive findings on diagnostic imaging of breast Outpatient Referrer: STACY CORDERO 02/03/2020 11:02 :00 AM EDT Other abnormal and inconclusive findings on diagnostic imaging of [facility] Other abnormal and inconclusive findings on diagnostic imaging of breast Outpatient Attender: STACY CORDEROReferrer: STACY CORDERO [id number] 02/03/2020 12:00:00 AM EDT - 02/03/2020 12:22:32 PM EDT Unspecified lump in the right breast, unspecified quadrant [facility] Unspecified lump in the right breast, un specified quadrant Outpatient Referrer: STACY CORDERO 02/03/2020 12:00 :00 AM EDT Encounter for screening mammogram for malignant neoplasm of breast [facility] Encounter for screening mammogram for ma lignant neoplasm of breast [place] [address] [facility] [address] 01/17/2020 12:00:00 AM EDT eCW1 ([facility]) Unknown [address] [facility] [address] 01/13/2020 12:00:00 AM EDT eCW1 ([facility]) Outpatient 01/04/2020 12:00:00 AM [facility] Outpatient Referrer: STACY CORDERO 12/28/2019 12:00:00 AM [facility] Outpatient Attender: STACY CORDEROReferrer: STACY CORDERO 12/28/2019 12:00:[address] [address] 12/14/2019 12:00:00 AM EDT eCW1 ([facility]) [address] [address] 12/13/2019 12:00:00 AM EDT [facility]CW1 ([facility] [address] [address] 11/24/2019 12:00:00 AM EDT eCW1 ([facility]) [address] [address] 11/22/2019 12:00:00 AM EDT [facility]CW1 [facility]) Outpatient Referrer: ASHISH RAE MD 11/09/2019 02:56:0 0 PM EDT [facility] [address] [address] 11/03/2019 12:00:00 AM EDT eCW1 ([facility]) [address] [address] 10/27/2019 12:00:00 AM EDT eCW1 ([facility]) Outpatient Referrer: STACY CORDERO 10/26/2019 12:00:00 AM [facility] Outpatient Attender: STACY CORDEROReferrer: STACY CORDERO 10/26/2019 12:00:00 AM [facility] Outpatient Referrer: ASHISH RAE MD 10/25/2019 03:22:0 0 PM EDT [facility] Outpatient Referrer: ASHISH RAE MD 10/25/2019 03:15:0 0 PM EDT [facility] [place] [address] [facility] [address] 10/19/2019 12:00:00 AM EDT eCW1 ([facility]) Outpatient Attender: Emily Barboza MD Physical Therapy 10/16 03:30:00 PM EDT MEDENT ([facility]) [facility] [place] [address] [facility] [address] 10/14/2019 12:00:00 AM EDT eCW1 ([facility]) [facility] [address] [place] [address] [address] 09/30/2019 12:00:00 AM EST eCW1 ([facility]) [facility] [address] [place] [address], [place] [address] 09/30/2019 12:00:00 AM EST eCW1 ([facility]) [facility] [address] [place] [address] [address] 09/16/2019 12:00:00 AM EST eCW1 ([facility]) [facility] [address] [place] [address], [place] [address] 09/15/2019 12:00:00 AM EST eCW1 ([facility]) [facility] [address] [place] [address] [address] 09/14/2019 12:00:00 AM EST eCW1 ([facility]) [facility] [address] [facility] [address] 09/14/2019 12:00:00 AM EST eCW1 ([facility]) Outpatient Attender: Emily Barboza MD Physical Therapy 09/12 10:00:00 AM EST MEDENT ([facility]) [facility] [address] [place] [address], [place] [address] 09/12/2019 12:00:00 AM EST eCW1 ([facility]) [address] [address] 09/12/2019 12:00:00 AM EST eCW1 ([facility]) [facility] [place] [address] [facility] [address] 09/09/2019 12:00:00 AM EST eCW1 ([facility]) Outpatient Referrer: ASHISH RAE MD 09/07/2019 07:48:0 0 PM EST [facility] Outpatient Referrer: ASHISH RAE MD 09/07/2019 03:13:0 0 PM EST [facility] [place] [address] [facility] [address] 09/07/2019 12:00:00 AM EST eCW1 ([facility]) [facility] [place] [address] [facility] [address] 09/01/2019 12:00:00 AM EST eCW1 ([facility]) [facility] [place] [address] [facility] [address] 08/31/2019 12:00:00 AM EST eCW1 ([facility]) [facility] [place] [address] [facility] [address] 08/29/2019 12:00:00 AM EST eCW1 ([facility]) Outpatient Referrer: ASHISH RAE MD 08/26/2019 09:23:0 0 AM EST [facility] [place] [address] [facility] [address] 08/26/2019 12:00:00 AM EST eCW1 ([facility]) [facility] [place] [address] [facility] [address] 08/24/2019 12:00:00 AM EST eCW1 ([facility]) Outpatient Referrer: ASHISH RAE MD 08/23/2019 12:34:0 0 PM EST [facility] [place] [address] [facility] [address] 08/22/2019 12:00:00 AM EST eCW1 ([facility]) [facility] [place] [address] [facility] [address] 08/16/2019 12:00:00 AM EST eCW1 ([facility]) [address] [address] 08/15/2019 12:00:00 AM EST eCW1 ([facility]) [address] [address] 08/10/2019 12:00:00 AM EST eCW1 ([facility]) Outpatient Attender: ASHISH RAE MD Physical Therapy 08:15:00 AM EST MEDENT ([facility]) [address] [address] 08/08/2019 12:00:00 AM EST eCW1 ([facility]) Emergency Attender: DEFAULT / GENE KATHLEEN / UNKNOWN PROVIDER ALIASES Referrer: PROVIDER SYSTEM IN A-ADULTERM 08/03/2019 12:00:00 AM EST - 08/03/2019 07:31:00 PM EST Striking against unspecified object with subsequent fall, initial encounter [facility] Striking against unspecified object with subsequent fall, initial encounter Patient discharged. Immunizations Vaccine Date Status Description Data Source(s) Zoster 50mcg/0.5mL ([facility]) 08/15/2019 04:41:00 PM EST completed eCW1 ([facility]) Zoster 50mcg/0.5mL ([facility]) 08/15/2019 04:41:00 PM EST completed eCW1 ([facility]) Zoster 50mcg/0.5mL ([facility]) 08/15/2019 04:41:00 PM EST completed eCW1 ([facility]) Zoster 50mcg/0.5mL ([facility]) 08/15/2019 04:41:00 PM EST completed eCW1 ([facility]) Zoster 50mcg/0.5mL ([facility]) 08/15/2019 04:41:00 PM EST completed eCW1 ([facility]) Zoster 50mcg/0.5mL ([facility]) 08/15/2019 04:41:00 PM EST completed eCW1 ([facility]) Zoster 50mcg/0.5mL ([facility]) 08/15/2019 04:41:00 PM EST completed eCW1 ([facility]) Zoster 50mcg/0.5mL ([facility]) 08/15/2019 04:41:00 PM EST completed eCW1 ([facility]) Zoster 50mcg/0.5mL ([facility]) 08/15/2019 04:41:00 PM EST completed eCW1 ([facility]) Zoster 50mcg/0.5mL ([facility]) 08/15/2019 04:41:00 PM EST completed eCW1 ([facility]) Zoster 50mcg/0.5mL ([facility]) 08/15/2019 04:41:00 PM EST completed eCW1 ([facility]) Zoster 50mcg/0.5mL ([facility]) 08/15/2019 04:41:00 PM EST completed eCW1 ([facility]) Zoster 50mcg/0.5mL ([facility]) 08/15/2019 04:41:00 PM EST completed eCW1 ([facility]) Zoster 50mcg/0.5mL ([facility]) 08/15/2019 04:41:00 PM EST completed eCW1 ([facility]) Zoster 50mcg/0.5mL ([facility]) 08/15/2019 04:41:00 PM EST completed eCW1 ([facility]) Medications Medication Brand Name Start Date Product [...] DOSE = 3 TABLETS SOLD: 08/28/2020 [email or web address] Acetaminophen 325 MG / Oxycodone Hydroch loride 5 MG Oral Tablet Oxycodone- Acetaminophen 5-325 MG Oxycodone-Acetaminophen 5-325 MG 08/23/2020 12:00:00 A M EST 1.0 {tablet_as_needed} active O xycodone-Acetaminophen 5-325 MG eCW1 ([facility]) 5-325 mg 07/26/2020 12:00:00 AM EST tablet [...] Hydrocodone Alayna trate 5 MG Oral Tablet [Concord] Concord 5- 325 MG Concord 5-325 MG 07/19/2020 12:00:00 AM EST 1.0 {tablet_as_needed} active Concord 5-325 MG eCW1 ([facility]) Acetaminophen 325 MG / Hydrocodone Alayna trate 5 MG Oral Tablet [Concord] Concord 5- 325 MG Concord 5-325 MG 07/19/2020 12:00:00 AM EST 1.0 {tablet_as_needed} active Concord 5-325 MG eCW1 ([facility]) 0.8 mg 07/06/2020 12:00:00 AM EST tablet [...] Hydrocodone Alayna trate 5 MG Oral Tablet [Concord] Concord 5- 325 MG Concord 5-325 MG 06/06/2020 12:00:00 AM EST 1.0 {tablet_as_needed} active Concord 5-325 MG eCW1 ([facility]) 50 mg 06/02/2020 12:00:00 AM EST tablet [...] Hydrocodone Alayna trate 5 MG Oral Tablet [Concord] Concord 5- 325 MG Concord 5-325 MG 05/25/2020 12:00:00 AM EDT 1.0 {tablet_as_needed} active Concord 5-325 MG eCW1 ([facility]) Acetaminophen 325 MG / Hydrocodone Alayna trate 5 MG Oral Tablet [Concord] Concord 5- 325 MG Concord 5-325 MG 05/25/2020 12:00:00 AM EDT 1.0 {tablet_as_needed} active Concord 5-325 MG eCW1 ([facility]) Acetaminophen 325 MG / Hydrocodone Alayna trate 5 MG Oral Tablet [Concord] Concord 5- 325 MG Concord 5-325 MG 05/25/2020 12:00:00 AM EDT 1.0 {tablet_as_needed} active Concord 5-325 MG eCW1 ([facility]) 5-325 mg 05/25/2020 12:00:00 AM EDT tablet [...] EDT active Hydrocodone-Aceta minophen 5-325 MG eCW1 ([facility]) Rosuvastatin calcium 20 MG Oral Tablet ROSUVASTATIN [...] EDT active Hydrocodone-Aceta minophen 5-325 MG eCW1 ([facility]) Acetaminophen 325 MG / Hydrocodone Alayna trate 5 MG Oral Tablet Hydrocodone- Acetaminophen 5-325 MG Hydrocodone-Acetaminophen 5-325 MG 01/17/2020 12:00:00 AM EDT active Hydrocodone-Aceta minophen 5-325 MG eCW1 ([facility]) Acetaminophen 325 MG / Hydrocodone Alayna trate 5 MG Oral Tablet Hydrocodone- Acetaminophen 5-325 MG Hydrocodone-Acetaminophen 5-325 MG 01/17/2020 12:00:00 AM EDT active Hydrocodone-Aceta minophen 5-325 MG eCW1 ([facility]) Acetaminophen 325 MG / Hydrocodone Alayna trate 5 MG Oral Tablet Hydrocodone- Acetaminophen 5-325 MG Hydrocodone-Acetaminophen 5-325 MG 01/17/2020 12:00:00 AM EDT active Hydrocodone-Aceta minophen 5-325 MG eCW1 ([facility]) Acetaminophen 325 MG / Hydrocodone Alayna trate 5 MG Oral Tablet Hydrocodone- Acetaminophen 5-325 MG Hydrocodone-Acetaminophen 5-325 MG 01/17/2020 12:00:00 AM EDT active Hydrocodone-Aceta minophen 5-325 MG eCW1 ([facility]) 5-325 mg 01/17/2020 12:00:00 AM EDT tablet 56 TAKE ONE TABLET BY MOUTH TWICE A DAY NEEDED * MAXIMUM DAILY DOSE = 2 TAKE ONE TABLET BY MOUTH TWICE A DAY NEEDED * MAXIMUM DAILY DOSE = 2 SOLD: 01/17/2020 [facility] 2 mg 12/15/2019 12:00:00 AM EDT tablet 112 TAKE TWO TABLETS BY MOUTH TWICE A DAY NEEDED. MAXIMUM DAILY DOSE = 4 TABLETS TAKE TWO TABLETS BY MOUTH TWICE A DAY NEEDED. MAXIMUM DAILY DOSE = 4 TABLETS SOLD: 12/16/2019 [facility] Cyclobenzaprine hydrochloride 5 MG Oral Tablet CYCLOBENZAPRI NE HCL 12/15/2019 12:00:00 AM EDT tablet 90 TAKE ONE TABLET BY MOUTH THREE TIMES A DAY NEEDED TAKE ONE TABLET BY MOUTH THREE TIMES A DAY NEEDED SOLD: 03/15/2020 [facility] Cyclobenzaprine hydrochloride 5 MG Oral Tablet CYCLOBENZAPRI NE HCL 12/15/2019 12:00:00 AM EDT tablet 90 TAKE ONE TABLET BY MOUTH THREE TIMES A DAY NEEDED TAKE ONE TABLET BY MOUTH THREE TIMES A DAY NEEDED SOLD: 06/25/2020 [facility] Cyclobenzaprine hydrochloride 5 MG Oral Tablet CYCLOBENZAPRI NE HCL 12/15/2019 12:00:00 AM EDT tablet 90 TAKE ONE TABLET BY MOUTH THREE TIMES A DAY NEEDED TAKE ONE TABLET BY MOUTH THREE TIMES A DAY NEEDED SOLD: 08/17/2020 [facility] Cyclobenzaprine hydrochloride 5 MG Oral Tablet [...] EDT active 1 tab eCW1 ([facility]) 20 mg 11/24/2019 12:00:00 AM EDT tablet [...] EDT active 1 tab eCW1 ([facility]) Trazodone Hydrochloride 100 MG Oral Tablet TRAZODONE [...] BY MOUTH DAILY AT BEDTIME SOLD: 12/27/2019 [facility] Trazodone Hydrochloride 100 MG Oral [...] EST active 1 tab eCW1 ([facility]) 5-325 mg 09/14/2019 12:00:00 AM EST tablet 56 TAKE 1 TABLET BY MOUTH TWICE A DAY NEEDED MAX DAILY DOSE = 2 TABLETS TAKE 1 TABLET BY MOUTH TWICE A DAY NEEDED MAX DAILY DOSE = 2 TABLETS SOLD: 09/14/2019 [facility] No Active Medications 09/12/2019 12:00:00 AM EST completed MEDENT ([facility] BLOOD SUGAR DIAGNOSTIC 09/12/2019 12:00:00 AM EST strip 300 TEST TWO TIMES A DAY AND NEEDED TEST TWO TIMES A DAY AND NEEDED SOLD: 09/13/2019 [facility] OneTouch Verio - OneTouch Verio - 08/29/2019 12:00:00 AM EST active OneTouch Verio - eCW1 ([facility]) One Touch Delica 33 gauge UNK 08/29/2019 12:00:00 AM EST active One Touch Delica 33 gauge eCW1 ([facility]) OneTouch Verio - OneTouch Verio - 08/29/2019 12:00:00 AM EST active OneTouch Verio - eCW1 ([facility]) OneTouch Verio - OneTouch Verio - 08/29/2019 12:00:00 AM EST active OneTouch Verio - eCW1 ([facility]) One Touch Delica 33 gauge UNK 08/29/2019 12:00:00 AM EST active One Touch Delica 33 gauge eCW1 ([facility]) OneTouch Verio - OneTouch Verio - 08/29/2019 12:00:00 AM EST active verio flex eCW1 ([facility]) [employer] Delica 33 gauge UNK 08/29/2019 12:00:00 AM EST active One Touch Delica 33 gauge eCW1 ([facility]) [employer] Touch Delica 33 gauge UNK 08/29/2019 12:00:00 AM EST active testing twice a day and as needed eCW1 ([facility]) OneTouch Verio - OneTouch Verio - 08/29/2019 12:00:00 AM EST active OneTouch Verio - eCW1 ([facility]) [employer] Touch Delica 33 gauge UNK 08/29/2019 12:00:00 AM EST active One Touch Delica 33 gauge eCW1 ([facility]) One Touch Delica 33 gauge UNK 08/29/2019 12:00:00 AM EST active One Touch Delica 33 gauge eCW1 ([facility]) OneTouch Verio - OneTouch Verio - 08/29/2019 12:00:00 AM EST active OneTouch Verio - eCW1 ([facility]) OneTouch Verio - OneTouch Verio - 08/29/2019 12:00:00 AM EST active OneTouch Verio - eCW1 ([facility]) One Touch Delica 33 gauge UNK 08/29/2019 12:00:00 AM EST active One Touch Delica 33 gauge eCW1 ([facility]) OneTouch Verio - OneTouch Verio - 08/29/2019 12:00:00 AM EST active OneTouch Verio - eCW1 ([facility]) One Touch Delica 33 gauge UNK 08/29/2019 12:00:00 AM EST active One Touch Delica 33 gauge eCW1 ([facility]) One Touch Delica 33 gauge UNK 08/29/2019 12:00:00 AM EST active One Touch Delica 33 gauge eCW1 ([facility]) One Touch Delica 33 gauge UNK 08/29/2019 12:00:00 AM EST active One Touch Delica 33 gauge eCW1 ([facility]) OneTouch Verio - OneTouch Verio - 08/29/2019 12:00:00 AM EST active OneTouch Verio - eCW1 ([facility]) OneTouch Verio - OneTouch Verio - 08/29/2019 12:00:00 AM EST active OneTouch Verio - eCW1 ([facility]) One Touch Delica 33 gauge UNK 08/29/2019 12:00:00 AM EST active One Touch Delica 33 gauge eCW1 ([facility]) OneTouch Verio - OneTouch Verio - 08/29/2019 12:00:00 AM EST active OneTouch Verio - eCW1 ([facility]) One Touch Delica 33 gauge UNK 08/29/2019 12:00:00 AM EST active testing twice a day and as needed eCW1 ([facility]) One Touch Delica 33 gauge UNK 08/29/2019 12:00:00 AM EST active One Touch Delica 33 gauge eCW1 ([facility]) One Touch Delica 33 gauge UNK 08/29/2019 12:00:00 AM EST active One Touch Delica 33 gauge eCW1 ([facility]) OneTouch Verio - OneTouch Verio - 08/29/2019 12:00:00 AM EST active verio flex eCW1 ([facility]) OneTouch Verio - OneTouch Verio - 08/29/2019 12:00:00 AM EST active OneTouch Verio - eCW1 ([facility]) OneTouch Verio - OneTouch Verio - 08/29/2019 12:00:00 AM EST active OneTouch Verio - eCW1 ([facility]) One Touch Delica 33 gauge UNK 08/29/2019 12:00:00 AM EST active One Touch Delica 33 gauge eCW1 ([facility]) OneTouch Verio - OneTouch Verio - 08/29/2019 12:00:00 AM EST active OneTouch Verio - eCW1 ([facility]) OneTouch Verio - OneTouch Verio - 08/29/2019 12:00:00 AM EST active OneTouch Verio - [facility]CW[facility] [facility]) One Touch Delica 33 gauge UNK 08/29/2019 12:00:00 AM EST active One Touch Delica 33 gauge eCW1 ([facility]) Metoprolol Tartrate 50 MG Oral Tablet Metoprolol Tartrate 50 MG 08/26/2019 12:00:00 AM EST 1.0 {tablet_with_food} active Metoprolol Tartrate 50 MG eCW1 ([facility]) Calcitriol 0.61225 MG Oral Capsule Calcitriol 0.25 MCG Calci triol 0.25 MCG 08/26/2019 12:00:00 AM EST 2.0 {capsules} active Calcitriol 0.25 MCG eCW1 ([facility]) Metoprolol Tartrate 50 MG Oral Tablet Metoprolol Tartrate 50 MG 08/26/2019 12:00:00 AM EST 1.0 {tablet_with_food} active Metoprolol Tartrate 50 MG eCW1 ([facility]) Metoprolol Tartrate 50 MG Oral Tablet Metoprolol Tartrate 50 MG 08/26/2019 12:00:00 AM EST 1.0 {tablet_with_food} active Metoprolol Tartrate 50 MG eCW1 ([facility]) Calcitriol 0.13340 MG Oral Capsule Calcitriol 0.25 MCG Calci triol 0.25 MCG 08/26/2019 12:00:00 AM EST 2.0 {capsules} active Calcitriol 0.25 MCG eCW1 ([facility]) Calcitriol 0.40567 MG Oral Capsule Calcitriol 0.25 MCG Calci triol 0.25 MCG 08/26/2019 12:00:00 AM EST 2.0 {capsules} active Calcitriol 0.25 MCG eCW1 ([facility]) Metoprolol Tartrate 50 MG Oral Tablet Metoprolol Tartrate 50 MG 08/26/2019 12:00:00 AM EST 1.0 {tablet_with_food} active Metoprolol Tartrate 50 MG eCW1 ([facility]) Metoprolol Tartrate 50 MG Oral Tablet Metoprolol Tartrate 50 MG 08/26/2019 12:00:00 AM EST 1.0 {tablet_with_food} active Metoprolol Tartrate 50 MG eCW1 ([facility]) Metoprolol Tartrate 50 MG Oral Tablet Metoprolol Tartrate 50 MG 08/26/2019 12:00:00 AM EST 1.0 {tablet_with_food} active Metoprolol Tartrate 50 MG eCW1 ([facility]) Calcitriol 0.62434 MG Oral Capsule Calcitriol 0.25 MCG Calci triol 0.25 MCG 08/26/2019 12:00:00 AM EST 2.0 {capsules} active Calcitriol 0.25 MCG eCW1 ([facility]) Calcitriol 0.19754 MG Oral Capsule Calcitriol 0.25 MCG Calci triol 0.25 MCG 08/26/2019 12:00:00 AM EST 2.0 {capsules} active Calcitriol 0.25 MCG eCW1 ([facility]) Metoprolol Tartrate 50 MG Oral Tablet Metoprolol Tartrate 50 MG 08/26/2019 12:00:00 AM EST 1.0 {tablet_with_food} active Metoprolol Tartrate 50 MG eCW1 ([facility]) Metoprolol Tartrate 50 MG Oral Tablet Metoprolol Tartrate 50 MG 08/26/2019 12:00:00 AM EST active 1 tablet with food eCW1 ([facility]) Calcitriol 0.15769 MG Oral Capsule Calcitriol 0.25 MCG Calci triol 0.25 MCG 08/26/2019 12:00:00 AM EST 2.0 {capsules} active Calcitriol 0.25 MCG eCW1 ([facility]) Calcitriol 0.45353 MG Oral Capsule Calcitriol 0.25 MCG Calci triol 0.25 MCG 08/26/2019 12:00:00 AM EST 2.0 {capsules} suspen ded Calcitriol 0.25 MCG eCW1 ([facility]) Calcitriol 0.45847 MG Oral Capsule Calcitriol 0.25 MCG Calci triol 0.25 MCG 08/26/2019 12:00:00 AM EST active 2 capsules eCW1 ([facility]) Calcitriol 0.49151 MG Oral Capsule Calcitriol 0.25 MCG Calci triol 0.25 MCG 08/26/2019 12:00:00 AM EST active 2 capsules eCW1 ([facility]) Metoprolol Tartrate 50 MG Oral Tablet Metoprolol Tartrate 50 MG 08/26/2019 12:00:00 AM EST 1.0 {tablet_with_food} active Metoprolol Tartrate 50 MG eCW1 ([facility]) Metoprolol Tartrate 50 MG Oral Tablet Metoprolol Tartrate 50 MG 08/26/2019 12:00:00 AM EST 1.0 {tablet_with_food} active Metoprolol Tartrate 50 MG eCW1 ([facility]) Calcitriol 0.12260 MG Oral Capsule Calcitriol 0.25 MCG Calci triol 0.25 MCG 08/26/2019 12:00:00 AM EST 2.0 {capsules} active Calcitriol 0.25 MCG eCW1 ([facility]) Metoprolol Tartrate 50 MG Oral Tablet Metoprolol Tartrate 50 MG 08/26/2019 12:00:00 AM EST active 1 tablet with food eCW1 ([facility]) Metoprolol Tartrate 50 MG Oral Tablet Metoprolol Tartrate 50 MG 08/26/2019 12:00:00 AM EST 1.0 {tablet_with_food} active Metoprolol Tartrate 50 MG eCW1 ([facility]) Metoprolol Tartrate 50 MG Oral Tablet Metoprolol Tartrate 50 MG 08/26/2019 12:00:00 AM EST active 1 tablet with food eCW1 ([facility]) Metoprolol Tartrate 50 MG Oral Tablet Metoprolol Tartrate 50 MG 08/26/2019 12:00:00 AM EST 1.0 {tablet_with_food} active Metoprolol Tartrate 50 MG eCW1 ([facility]) Calcitriol 0.67576 MG Oral Capsule Calcitriol 0.25 MCG Calci triol 0.25 MCG 08/26/2019 12:00:00 AM EST 2.0 {capsules} suspen ded Calcitriol 0.25 MCG eCW1 ([facility]) Calcitriol 0.96777 MG Oral Capsule Calcitriol 0.25 MCG Calci triol 0.25 MCG 08/26/2019 12:00:00 AM EST 2.0 {capsules} active Calcitriol 0.25 MCG eCW1 ([facility]) Calcitriol 0.69748 MG Oral Capsule Calcitriol 0.25 MCG Calci triol 0.25 MCG 08/26/2019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 A [id number] Self [id number] MEDICARE -RECURRING [id number] 18 [id number] ANSI-Commercial [id number]-frf6-2gz6-9y7v-[id number] [id number]-yfn8-9bb4-0a9p-[id number] ANSI-Medicare Part B [id number] ANSI-Medicaid [id number] ANSI-Medicaid [id number] ANSI-Medicare Part B [id number] ANSI-Commercial [id number]-gn24-379r-2616-ombdvz71d32i [id number]-ff94-419w-4384-mabmny83c63q [employer] C [id number] S [id number] Medicare C [id number] SELF [id number] Medicare C [id number] SELF [id number] T MEDICARE A [id number] Self [id number] MEDICARE A [id number] Self [id number] T MEDICARE C [id number] S [id number] T FORMERLY [facility] SV OPTIONS C [id number] S [id number] [place] Medig[place] Part B [id number] Self [id number] [place] Primary [id number] Self [id number] [facility] [id number] SP [id number] [facility] O [id number] S [id number] MEDICAID [id number] SP [id number] MEDICARE [id number] SP [id number] T Medicaid [facility] Part B Self Medicare [facility] Medicare Primary Self MEDICARE [id number] SP [id number] T SELF PAY 2 UNAVAILABLE 1 UNAVAILA BLE MEDICAID [facility] 3 [id number] 1 [id number] MEDICARE 4 [id number] 1 [id number] T [employer] [place] NOT FOR TODAYS VISIT SP NOT FOR TODAYS VISIT BIG LOTS NOT IN EFFECT SP NOT IN EFFECT Problems, Conditions, and Diagnoses Code Display Name Description Problem Type Effective Dates Data Source(s) 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 [id number] 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 Problem 08/03/2020 12:00:00 AM EST eCW1 ([facility]) 446043778 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 Problem 09/12/2019 12:00:00 AM EST MEDENT ([facility]) E83.51 [id number] Hypocalcemia Problem 08/29/2019 12:00:00 AM EST eCW1 ([facility]) E83.51 7318516 Hypocalcemia Problem 08/29/2019 12:00:00 AM EST eCW1 ([facility]) E04.1 565339695 Thyroid nodule Problem 08/24/2019 12:00:00 A M EST eCW1 ([facility]) E04.1 910298686 Thyroid nodule Problem 08/24/2019 12:00:00 A M EST eCW1 ([facility]) N60.01 Solitary cyst of right breast Solitary cyst of right b reast Diagnosis 08/31/2020 11:28:37 AM [facility] Z12.31 Encounter for screening mammogram for ma lignant neoplasm of breast Encounter for screening mammogram for malignant neoplasm of breast Diagnosis 08/31/2020 11:28:37 AM [facility] R92.8 Other abnormal and inconclusive findings on diagnostic imaging of breast Other abnormal and inconclusive findings on diagnostic imaging of breast Diagnosis 08/31/2020 10:27:45 AM [facility] N63.10 Unspecified lump in the right breast, un specified quadrant Unspecified lump in the right breast, unspecified quadrant Diagnosis 021 10:27:45 AM [facility] R92.1 Mammographic calcification found on diag nostic imaging of breast Mammographic calcification found on diagnostic imaging of breast Diagnosis 08/31/2020 10:27:10 AM [facility] G89.29 Other chronic pain Other chronic pain Diagnosis 02/2020 03:12:04 PM [facility] M54.9 Dorsalgia, unspecified Dorsalgia, unspecified Diagnosi s 08/03/2019 03:12:04 PM [facility] M54.2 Cervicalgia Cervicalgia Diagnosis 08/03/2019 03:12:04 PM [facility] W18.00XA Striking against unspecified object with subsequent fall, initial encounter Striking against unspecified object with subsequent fall, initial encounter Diagnosis 08/03/2019 03:12:04 PM [facility] small increase of Rt intraventricular he morrhage small increase of Rt intraventricular hemorrhage Diagnosis 08/03/2019 03:12:[address] [facility] Surgeries/Procedures Procedure Description Date Indications Data Source(s) CT THORAX W/O CONTRAST MATERIAL CT THORAX WITHOUT CONTRAST 7125 0 Routine 03/21/2020 12:27 PM EDT Pulmonary nodules 03/21/2020 12:27:33 PM EDT Pulmonary nodules [facility] Pulmonary nodules Fine Needle Aspiration Biopsy Inlcd Ultrasound Guidance 09/19/2019 12:00:00 AM EST [facility] ([facility]) TRANS CARE MGMT 7 DAY DISCH 08/29/2019 12:00:00 AM EST eCW1 ([facility]) Annual wellness visit, includes a person alized prevention plan of service (pps), subsequent visit 08/15/2019 12:00:00 AM EST eCW1 ([facility]) IMMUNIZATION ADMIN 08/15/2019 12:00:00 AM EST eCW1 ([facility]) Shingrix 50mcg/0.5mL (Zoster) 08/15/2019 12:00:[address] eCW1 ([facility]) Annual alcohol misuse screening, 15 minutes 08/15/2019 12:00:00 AM EST eCW1 ([facility]) ARTHROCENTESIS ASPIR&/INJECTION MAJOR JT/BURSA 020 12:00:00 AM EST [facility] ([facility]) CT LUMBAR SPINE W/O CONTRAST MATERIAL CT LUMBAR SPINE WITHO [place] CONTRAST 17066 STAT 08/03/2019 5:31 PM EST 08/03/2019 10:31:23 PM [facility] CT HEAD/BRAIN W/O CONTRAST MATERIAL CT HEAD WITHOUT CONTRAST 70 450 STAT 08/03/2019 5:31 PM EST 08/03/2019 10:31:05 PM [facility] PARTIAL THROMBOPLASTIN TIME (PTT) PARTIAL THROMBOPLASTIN TIME ( PTT) STAT 08/03/2019 3:56 PM EST 08/03/2019 08:56:00 PM [facility] PROTHROMBIN TIME PROTIME INR STAT 08/03/2019 3:56 PM EST 08/03/2019 08:56:00 PM [facility] BLOOD COUNT COMPLETE AUTO&AUTO DIFRNTL WBC COUNT CBC AND DIFFER ENTIAL STAT 08/03/2019 3:56 PM EST 08/03/2019 08:56:00 PM [facility] BASIC METABOLIC PANEL CALCIUM TOTAL BASIC METABOLIC PANEL STAT 08/03/2019 3:56 PM EST 08/03/2019 08:56:00 PM [facility] Results ID Date Data Source [id number] 09/04/2020 08:21:24 AM [facility] Name Value Range Interpretation Code Description Data Melanie rce(s) Supporting Document(s) Progress Note [facility] CDCAEe7oXqINRnYt50/LMKzwZCCcw2CkUOfeLCq2CZbwMHEdU3ZhGNY7wA8wWOM1AWmZMcSoYvCqLhT4 lbm [file] NmEzOWIyYTFlZjI+RH2xHQp+Xv3Kd7ItwzV5yzBdAWerUFV1VZ7ILTTAH1WBKc== ID Date Data Source [id number] 09/04/2020 08:06:09 AM EST [facility] MAMMO DIGITAL DIAGNOSTIC RIGHT [id number] L RESULTInterpreted by:TIA Pond DIGITAL MAMMOGRAM WITH COMPUTER-AIDED DETECTION and TARGETED RIGHT BREAST ULTRASOUNDHISTORY: Short-term follow-up after benign right breast biopsy performed at outside facility. Short-term follow-up of mass seen on ultrasound outside facility. The patient reports family history of breast cancer in maternal aunt. The patient reports multiple benign left breast biopsies in the past.[facility] [place] risk assessment model:5 year calculated risk: 2.2%Average [...] rce(s) Supporting Document(s) ID Date Data Source [id number] 09/04/2020 08:06:09 AM EST [facility] US BREAST INCLUDING AXILLA LIMITED RIGHT [id number] RESULTInterpreted by:TIA Pond DIGITAL MAMMOGRAM WITH COMPUTER-AIDED DETECTION and TARGETED RIGHT BREAST ULTRASOUNDHISTORY: Short-term follow-up after benign right breast biopsy performed at outside facility. Short-term follow-up of mass seen on ultrasound outside facility. The patient reports family history of breast cancer in maternal aunt. The patient reports multiple benign left breast biopsies in the past.[facility] [place] risk assessment model:5 year calculated risk: 2.2%Average [...] rce(s) Supporting Document(s) ID Date Data Source [id number] 08/01/2020 04:00:01 PM EST [facility] PCName: Jose CarnesDOB: 1955Provider: Hemant [...] up calling ambulance and was seen at [facility] in [place]. Ambulating with walker. Was given RX for [...] pain. She was worked up in the [place] which included x-rays, CT scan and MRI [...] rce(s) Supporting Document(s) ID Date Data Source [id number] 07/22/2020 11:02:00 PM EST [facility] Name Value Range Interpretation Code Description Data Melanie rce(s) Supporting Document(s) SARS coronavirus 2 RNA [Presence] in Res piratory specimen by [facility] with probe detection [facility] This lab was ordered by [facility] a nd reported by [facility]. ID Date Data Source [id number] 03/28/2020 08:38:46 AM EDT [facility] Name Value Range Interpretation Code Description Data Melanie rce(s) Supporting Document(s) Progress Note [facility] IPHGEp1gXbXGOvMt15/DVGqqHNIvs1UlIQurPFc8FDrdBVYhB5EpHSS9qG4mNAB1ONxIIiEiBuKwHQAe lbm [file] ICAgICAgICAgICAgICAgICAgICAgICAgICAgICAgIC AgICAgICAgICAgICAgICAgICAgICAgICAgICAgICAgICAgICAgICAgICANCiAgICAgICAgICAgICAgIC AgICAgICAgICAgICAgICAgICAgICAgICAgICAgICAgICAgICAgICAgICAgICAgICAgICAgICAgICAgIC AgICAgICAgICAgICAgICAgICAgICAgICANCiAgICAg ICAgICAgICAgICAgICAgICAgICAgICAgICAgICAgICAgICAgICAgICAgICAgICAgICAgICAgICAgICAg ICAgICAgICAgICAgICAgICAgICAgICAgICAgICAgICAgICANCiAgICAgICAgICAgICAgICAgICAgICAg ICAgICAgICAgICAgICAgICAgICAgICAgICAgICAgIC AgICAgICAgICAgICAgICAgICAgICAgICAgICAgICAgICAgICAgICAgICAgICANCiAgICAgICAgICAgIC AgICAgICAgICAgICAgICAgICAgICAgICAgICAgICAgICAgICAgICAgICAgICAgICAgICAgICAgICAgIC AgICAgICAgICAgICAgICAgICAgICAgICAgICANCiAg ICAgICAgICAgICAgICAgICAgICAgICAgICAgICAgICAgICAgICAgICAgICAgICAgICAgICAgICAgICAg ICAgICAgICAgICAgICAgICAgICAgICAgICAgICAgICAgICAgICANCiAgICAgICAgICAgICAgICAgICAg ICAgICAgICAgICAgICAgICAgICAgICAgICAgICAgIC AgICAgICAgICAgICAgICAgICAgICAgICAgICAgICAgICAgICAgICAgICAgICAgICANCiAgICAgICAgIC AgICAgICAgICAgICAgICAgICAgICAgICAgICAgICAgICAgICAgICAgICAgICAgICAgICAgICAgICAgIC AgICAgICAgICAgICAgICAgICAgICAgICAgICAgICAN CiAgICAgICAgICAgICAgICAgICAgICAgICAgICAgICAgICAgICAgICAgICAgICAgICAgICAgICAgICAg ICAgICAgICAgICAgICAgICAgICAgICAgICAgICAgICAgICAgICAgICANCiAgICAgICAgICAgICAgICAg ICAgICAgICAgICAgICAgICAgICAgICAgICAgICAgIC AgICAgICAgICAgICAgICAgICAgICAgICAgICAgICAgICAgICAgICAgICAgICAgICAgICANCjw/eHBhY2 ndsKTystX4C8cwVi4SUm3ILQ9lz4HyUJKdCOnnuxYiZaxNAxRzQDYdWnjMYbl4SFsuFK0BqOFoR0UkT2 AeQNfiMY1FKEYyHAPzdOYgPTFaGPUeDkO9UJKxILfg WB6DlJLuWCqkZJJgPJGiMaGrGSDbBAZmZUOgXHXzSBAWWOYgHRPxNcSdYURgOJLgHC2SVMGdQ329qfBg Sx5OKv0PPiGrUF0yhu9SCfHjKVDjZbhOYaq6SGtvDW7DqUFgsWBmKyRvZYTIBgWwN3jyr4MyRaVlMOSV QDffHV2Io9OkeQBzQFv+Lx0EMU1rb6ArJCvlJkImCE 1nbx9NFUiILtTcV5HzdPdcDWQre7raLUGqHG8hqQMaHWM7QXPobmScA8B0gTZkNGDXDVQgyBO2FbA0Na NnIhLsJZN2WLRsZZ5vKZiuBY9XTGW4QZroLGRbHIQtA8lDHaEaZWAgHVNfiPnxTS1HNnBkM6AcgiOciI AzNSAwIFINCj4+XHdlbtKqAtnUKcJ6LDQow8FlAYo8 DQ7XJLEnZTbtQS3QONLczF8hSHkdMZ6BIdWbTmQkCOQRYkHnL94thGIgLWk6K1MaMeZsGHPkRfbyGVWh PDwvTmFtZXMgWyBdDQogID4+ID4+XTruZU5DJNwtosUpGQQmJp2NIWPyCMFtNC3bCRNuZOZfJ0A9oWmi DGXNDfTzR8wxfqqvSM6mOLYxM600lTivoqWsYNV9QH OyVr7NOMWqOHH2WPLfbAOoTqTpXSCWKKbdJC4IyEDgZJL3fG0lHHcfTYQsSTDiM6pUOnJikXloJL48gL wgbnVsbCBdDQo+Jh1EQZ9im2PvXPu1adPzXEtyEAW9PCuqENKlDTDsFPItQDN7BEP7NVYWQrAjREIxBF QaFCdnKJStNVTvhk3FTZBgFZKnIjI0QQJuJRMkPEJz YOhvPNLuERT8EAEyZTKqWDKiKJ9HFkClKMYbTJKsYPcoKUZaUQWebn9EZJBjXSHcAle7NDZrGVNcDLZl CFypGUDmBPT1ZJt8LGNeRWZrNH8GUnAyLKVbSRY2YwIjRDCdVWAlah4ZFLFzZQMfTpm0JNLbYJGtRHVc IBelATEnHHX5ACHeNPUzKMQsRO4LFbFvBSVjIVTjWk IjKOZfGFHcjl2LCLXkUTHgGqEsNQTzSJSfHVFoHMxzLVLtNBFwWXE6JWKkHZLgRZ8MRgKaNFCgDMP1SC hiGKOsUHTipl5KYLJgUXImCiLqHCIhWECuRIXgXEwpXLZgEYD3ZzstOWTyBZFnZG7THxYlUUHtDLt4LL ngXQLyFVXzyo3EZVZfQJZgQYM0EgGbLOYbXIIaKQma DNAmTFQzVsH1UKErCLAsQF6IHlMyYRRhUgD8ExpkETHmASLsua8BJDHyQCYoNUr6WsQkKGMgWOEfPSvx SLLhVTYtAUm5ESXlLVMqWQ5MYsLzNZNrFfZeBeQrLJUmPJIajd7UJYBcESBjDepqUnVtEUNuGALnJVez FWPnDCY3AZEgPYHkUACeDK8GEqEzPCOqDfTsHGQiCS IqRCOhuj7AXRTdSZVlMQT6IRShLGLzIPRkCDphOOOaRLQ0SuO0BRSwWNUbHK9MLcDfKVJlKdY9DzxpTT YtSDJzxu6BTMEyCLDwTHq4ATPbGGJjRDPsWFfdEWZqWZD0RMJ5HPZaROFeQI6ESmGjLJXnKoA7PRQyQN KiOXPyhq6FFOQuGDCyGdR8VUQfNMTrTVFbNTpmQRUj LUE8OuK2FUVqNHJtCA3XThYyPEPyRpv5UHFrRYXgODYqti7CDMSvMEGqCHW3PsGuZRZwZIJdGSlgYZNi FQI1PvWkHKDnWREbMH3TNvGrYCBtVjcoSxerWVFxEMMlzi2KoRYutBvjew3ALClEEe7OlZlmFTJ5GWwn Zq5jhGGbRdPmQRTLMn0WesRvRIMkOCNLJVqhISNgSQ p3R1DeO0E1FeCtUXU7VMY1JFneLyJzFDPtN2H6MQfmZlO6HcLlOkVqJqA8FJA6AkD2FTXeMGIzUNBiMr A3Yli8JYT+BB7kPFt+Zy4Pb6FtohO0dmEfVQfbVAMiRs7ZNOLHY2YUWt== ID Date Data Source [id number] 03/21/2020 05:45:19 PM EDT [facility] CT THORAX WITHOUT CONTRAST [id number] RE SULTInterpreted by:Alix Vincent MDINDICATION: Follow-up lung [...] knowlese(s) Supporting Document(s) ID Date Data Source [id number] 03/21/2020 01:49:05 PM [facility] Name Value Range Interpretation Code Description Data Melanie rce(s) Supporting Document(s) Progress Note [facility] RCZRMn1mEjKLNrMr78/NUVwvDCYxd3PcETioZAf9INuqRQNtE5FiHFG9sE9yODU3MMxUYdGvFbFaOTK2 lbm [file] 0LINSVX8HOCv== ID Date Data Source [id number] 03/21/2020 01:48:24 PM EDT [facility] Name Value Range Interpretation Code Description Data Melanie rce(s) Supporting Document(s) Progress Note [facility] XQUAAf7zNxDOMlAf72/VNEodJEMot3KbMNjcIDq2UImcKBTxO1CuRJD2mM9vGPR9OJaIOkHsLvTcPRK9 lbm PbIhsBYmZiELWkTviRIvWpJYrsQqrkzDJsFV2XkBS7VPOxN03tOWPaXPWpR5SlUYW1TIM+Pu7YQVYxhL NkUT9RCacV0Hvpe+M2Ev5+rB0EVyDQ6hJILFswrPTdjJyiv8bh0Y4m4oKgJ17kd6o2xfOjhaRxD5XRws GUlErT6hGGXAsWpTHfg9rYpQBqJxP97//SZHn0dqWI n+oyjDgbLdk//2Nuwz1bskUTBpoxU2hfX+af6xxPhO6MlJWggzAErjNHo2lxqxBw1NZlTRBNB98Tp4k+ +obuk7Ftse7ln7TbK5gFvmxKns1upYTK/7HrAXu/s0/WQf6lzl0dBuGRZV65qfgWUNesPvVdhjGMADjb XUr3YKHZPki/aePBXftwQkLOw2DxAJCp2TTl0Ns2eX XzOg+RFuzx1lQvNieMwnn/lnf4teY2jKkOPqdyD4Ev54d+SulmhkdhUPsimvKTgrjA+vWARjRVbT6XNB mrm6JbSOb54UG2zEpq1/A8mQ+sGt59/TqlrGf6GoHbmUusCWB39zS9YLT5dBs7T8BMCqLoBE3tM9/Diana [file] ICAgICAgICAgICAgICAgICAgICAgICAgICAgICAgICAgICAgICAgICAgICAgICAgICAgICAgICAgICAg ICAgICAgICAgICAgICAgICAgICAgICAgICAgICAgICAgICAgICAgDQogICAgICAgICAgICAgICAgICAg ICAgICAgICAgICAgICAgICAgICAgICAgICAgICAgIC AgICAgICAgICAgICAgICAgICAgICAgICAgICAgICAgICAgICAgICAgICAgICAgICAgDQogICAgICAgIC AgICAgICAgICAgICAgICAgICAgICAgICAgICAgICAgICAgICAgICAgICAgICAgICAgICAgICAgICAgIC AgICAgICAgICAgICAgICAgICAgICAgICAgICAgICAg DQogICAgICAgICAgICAgICAgICAgICAgICAgICAgICAgICAgICAgICAgICAgICAgICAgICAgICAgICAg ICAgICAgICAgICAgICAgICAgICAgICAgICAgICAgICAgICAgICAgICAgDQogICAgICAgICAgICAgICAg ICAgICAgICAgICAgICAgICAgICAgICAgICAgICAgIC AgICAgICAgICAgICAgICAgICAgICAgICAgICAgICAgICAgICAgICAgICAgICAgICAgICAgDQogICAgIC AgICAgICAgICAgICAgICAgICAgICAgICAgICAgICAgICAgICAgICAgICAgICAgICAgICAgICAgICAgIC AgICAgICAgICAgICAgICAgICAgICAgICAgICAgICAg ICAgDQogICAgICAgICAgICAgICAgICAgICAgICAgICAgICAgICAgICAgICAgICAgICAgICAgICAgICAg ICAgICAgICAgICAgICAgICAgICAgICAgICAgICAgICAgICAgICAgICAgICAgDQogICAgICAgICAgICAg ICAgICAgICAgICAgICAgICAgICAgICAgICAgICAgIC AgICAgICAgICAgICAgICAgICAgICAgICAgICAgICAgICAgICAgICAgICAgICAgICAgICAgICAgDQogIC AgICAgICAgICAgICAgICAgICAgICAgICAgICAgICAgICAgICAgICAgICAgICAgICAgICAgICAgICAgIC AgICAgICAgICAgICAgICAgICAgICAgICAgICAgICAg ICAgICAgDQogICAgICAgICAgICAgICAgICAgICAgICAgICAgICAgICAgICAgICAgICAgICAgICAgICAg GKEnGCPsXUTjSZOsOEOtHEEoIAMuHTPiTQKnMIVgFMLrIVYqLNWuMDFnQYYuFHOeTHo6H8wlDRPaSJEh YZ2gCEs1Af2+RWuCSzGmHYB6aiVzrC3XFZ8ng6ApUE ynSGJqt7PiAFu4SW3SDPCrCRemMM0YYPavke5KWXKmPTQklGAQm8etWrBfHZT9PVBlZmtrAS9TMVKxA5 zuueUxBOGmCQPVUR3BRqDrM0TsyP74YLBACu9+SOrdprGgQstPZdY9FMEuq7NuSOf9JK5VMKBdBikfq7 BxJaYpALOSHWbwND9GUEL2QIJsXYMkUg8NLEUbS171 zsUmGV0YKy0EKtWaVC6izb5BKsVrGHAlXkpDShp0ROqaDQ0NsPGmCBpIwv2dhmTcciOVv3YgqrHkzRAQ DJduRYKdYnOrjzKja7VhKDAMPY1eREQdQQ0mEx5gOMCjJGBlDrHeTQQEQB9YEPKdQDCdpUXgWIAyMSZW IT9KYDdsNLB8TPXotuIndJPrHKmuZJ8NCIVxgwBaIC kgMCBSDQo+Mf8OOL7xy4AuTYqcYGGlBG6cyj1JCWwLLmHaQ8O2hIXiK3M8KEafZq7KXBAiVVJsCNmqYH AWSPdpTZ4OHY6yjzG6ZN7OgMLkTMMsLQKcpXAgDZl2V67kxXYcCPnuKI9VHUZ+Bello+Rp2RHXJdTTPlAI LgGiAaDETBRiUkY6PqB6EYh7OvS9MgZI55aOhgruYl NRubWU8TLM9uLOKrJRPBXS9DeHUwiF3aqzFlBQFbIYXGSjEiL97fwUFoYFZoOPM3WKRlMg8PAZZzL2Is fiHaiRobzaCaVGAmMALCZW8BCKtevyUuzMEjyAsoZZ41wKsjXE7GEu6ZQbHbPP5daa9FhBXfGe5CAWGb Il6HVGWeGCHtSJBwCKZ0ZEGlJwCvDNbkFNSdGQVvAB Z2HLHxCNAwMO2BBrNxKHUvYYp3MnUnZIYiMILnfd8RGLTlISCzTRD4XWDzQMSjBLSrVIdkCZVqVBTxFH Z8QYWaBNCfQG7AQhQmMMCdUBJ9UEAcMEYmUGYdrn6RIMWpRESoBcq5EyOlMLUeWVUzKJujPKNfNYMeTU K1NYKcRIYfGL7CApDeAVEmGGJjDVYiIAUkXUWnia5V XBQlLFFrVXZ7LPFjTOKsISIvVSnjAUReDGC8DEP3UMNmRCVjGK9FCkNmNGFuJDPaGSDuYJYbMTBmhd4L PXOzROGeWWEkCKFaZHBnOWWgCVaaWQDcHKD0MDhvTRMeMCAaBK0UXdTpZDUeMLzgEKuvDHYpZGHxxj6L XICvLUNxRzUvGYYbZVPvJHDlLDbtRPVdEZB3QzG0FT WbDIXzVU9LKtYtDSJaVKg8AOJkGBRxSLBwgu1WWIIeQQPiEQDhCZRjHVNfRJUnDVitOVZpHFH3UeSoBD ZcZLMdJK4ASrKiNZBgKQs3QPUlNSVlMSFrlo9GDZTqDRIkNFp9JGDeNKYaGIOhEXx4zuFbrNHgZYe1TZ 9JL3FmzlXwCzCJRz0Ca541PWRgSSYbKf6SY4ptMt6o PDYpHCZKFo8FGKs9LqM9CFGnAnV9NHuqLfJiJUIkLem7YmP4ZnqdYCF6CUh+FUp2AAYxIONeUqw4Y8Pj YIRvFJCdGzu6RTIcVRC2NRdeHH0zDQWLIj5+DYssxEFzzBqoMIAUXwUtOIJ9KFgtVADNPi7C ID Date Data Source [id number] 03/15/2020 10:06:58 AM EDT [facility] [place] [facility] [address] [id number]# SURGICAL PATHOLOGY REPORTPatient Name:OPAL CARNESOB:1955Received:03/14/2020Accession #:[id number](s) [...] By David Quevedo M.D. jzwPathology Associates of [facility] RidgeD[facility] [place] [address]Tdsoffidt component performed at [facility], Histopathology, [address] [place] [address], [phone].Reported at [facility], [address] [place] [address], [phone].This report may include immunohistochemical or in-situ hybridizationresults. Testing was developed and the performance characteristicsdetermined by [facility], as required byCLIA '88. The FDA has determined that approval for specific use is notnecessary for clinical use. The quality of Hematoxylin and Eosin stainsand as applicable, for all immunohistochemical and/or special stains,including positive and negative controls, were reviewed and consideredappropriate.ICD codes: R92.0 D24.1CPT4 codes: A: 98616CK: [id number] Name Value Range Interpretation Code Description Data Melanie rce(s) Supporting Document(s) ID Date Data Source [id number] 03/16/2020 08:41:00 AM EDT Ines Purnima al [...] Dr. [facility] [place] [facility] .Addendum EndsRight breast stereotactic biopsy. Clinical [...] Professional interpretation performed at Dr. Issac Denise [facility] Breast [facility] .End of diagnostic report for accession: [id number] Interpreted: Davdi Hurst MDTranscribed: 03/14/2020 12:56 PMSigned: 03/16/2020 08:41 AM David Hurst MD [facility] ACC # [id number] BILL # [id number] [facility] Name Value Range Interpretation Code Description Data Melanie rce(s) Supporting Document(s) ID Date Data Source [id number] 03/16/2020 08:41:00 AM EDT [facility] DATE OF EXAM: 03/14/2020Addendum BeginsP athology results reported on 03/15/2020: A) breast, right, core biopsy-focal changes of a fibroadenoma with associated microcalcifications. B) breast, right, core biopsy-benign breast parenchyma. These results are consistent with the findings at the time of biopsy. Routine followup with a postbiopsy mammogram in six months is recommended. Professional interpretation performed at Dr. Issac Hook [facility] .Addendum EndsRight breast stereotactic biopsy. Clinical [...] Professional interpretation performed at Dr. Issac Hook [facility] .End of diagnostic report for accession: [id number] Interpreted: David Hurst MDTranscribed: 03/14/2020 12:56 PMSigned: 03/16/2020 08:41 AM David Hurst MD [facility] ACC # [id number] BILL # [id number] CN Name Value Range Interpretation Code Description Data Melanie rce(s) Supporting Document(s) ID Date Data Source [id number] 03/12/2020 08:46:36 AM EDT [facility] MAMMO DIGITAL DIAGNOSTIC RIGHT [id number] L RESULTInterpreted by:TIA Pond DIGITAL MAMMOGRAM HISTORY: [...] rce(s) Supporting Document(s) ID Date Data Source [id number] 03/02/2020 04:34:10 PM EDT [facility] Name Value Range Interpretation Code Description Data [facility] rce(s) Supporting Document(s) Progress Note [facility] PESIBo0cUpWIAzGc92/UXBspXTGpj5ZtMSsbFRx6NMzuSNYoD1LrVTD4wW2kFYY3LBaXEiEgQgTaFXN4 [facility] [file] F/x4/gix8Xs78G0VZ0cr10VM+/Q2haTbMNylQ7h001PRFeRdST7D1y1al6W7PC+fund director+f4S3UV/OPcSByv [file] PjcpQ4mwClOMt0EEqtHA8ECPRVW6DYXr== ID Date Data Source [id number] 02/06/2020 08:36:07 AM EDT [facility] Name Value Range Interpretation Code Description Data Melanie rce(s) Supporting Document(s) Progress Note [facility] WDMXUl3bGjSAIcGd03/KYWpgHXQyn6GhFIdsTMc9PEfzIXDjX9UnBKX2rN5qTPA8YPuZFkQbFsXzBuUy lbm [file] art teacher+pbu7pwtdrN99+8s0z9ePRICmV1xhq91w8BCt+t9ManvlKYnoTWFWKz3q3XXXMCIf0PKcO8Q13cLH bqiJz9X3mFkPDqDpEI3cZNauSxHrpSf9c4OVEsBYw/kIGejmafYV8xSNlodxw1x94oUu+Za33jiHpwli mSk9CyrDh3t9AdXxBzAOm3z4oBJRlsvI8DEZ1V78w+ Qujejwj98RW7kzgG3DDvfv9ZKPaVoNbXkqn+AYurTW8zRE2FsDgibpE4Y2NQIN0RgHDJKd5Xt1uGobn5 VPRpEdsvdRYK55Lp36QByKMtuLtiZ2L4go42u/tve+Kzv4DJyI9WGCsGRA+SE76PdIyRstMvRpog+cGG HOMj9f4YSl64M7cuyOKEd6ABlRgbDNct9JOdKDN1el 1irvqn9mB60nB6k75tQYjIJvQ4vaDUei9xpSw0nGm8tv0R4hgQ55d9tirbSBz/CC3ENHNb02k23WDjT+ AcvMBAtPeDrcHTlHPxYOsgzKCBLPUu1olbRw+dLsjCoULEWywD9LNqFQo96O6M4pXgDcR/VWGmPXxLCv rFs1HgTaF8AAiptjdvoIPCfmFYWb2kDqhnf2ZI2lsb SJXIgHj8hy2FdNGeUpH8GUZgv8BTogWwceZGaWK2DXTEQsw3LEOAMLg0GjeWVgmiTAhZRhr+DXOA0LE2 kKk+bvfMeaDozfJ7IhU1pnfycfssXvlktYNu0FiCNgn5LR/uy3h+M4YDdXqRqGSMIRJ4pQxbyFy6FkAF jjjDGXQ2JrbkPEFJ3BnUQ/I4M6zy+e+FHXmxyX9q6/ QxAFUT9t+thania/iuRn1H/rM17zzJaR3L93mZhNSR7q2/RmU7aN/1uwY9reTm+xdOv4WyGtqwiw90yuSxI [file] orDJySPoOoGI2QDYn= ID Date Data Source [id number] 02/06/2020 08:30:34 AM EDT [facility] MAMMO DIGITAL SCREENING BILATERAL [id number] INAL RESULTInterpreted by:Ashkan Haywood MDBILATERAL DIGITAL MAMMOGRAM WITH COMPUTER-AIDED DETECTION and TARGETED RIGHT BREAST ULTRASOUNDHISTORY: The patient reports family history of breast cancer in maternal aunt. The patient reports benign left breast biopsies.[facility] [place] risk assessment model:5 year calculated risk: 2.2%Average [...] rce(s) Supporting Document(s) ID Date Data Source [id number] 02/06/2020 08:30:34 AM [facility] US BREAST INCLUDING AXILLA LIMITED RIGHT [id number] RESULTInterpreted by:Ashkan Haywood MDBILATERAL DIGITAL MAMMOGRAM WITH COMPUTER-AIDED DETECTION and TARGETED RIGHT BREAST ULTRASOUNDHISTORY: The patient reports family history of breast cancer in maternal aunt. The patient reports benign left breast biopsies.[facility] [place] risk assessment model:5 year calculated risk: 2.2%Average [...] rce(s) Supporting Document(s) ID Date Data Source [id number] 09/19/2019 06:11:00 AM EST [facility] ([facility]) Name Value Range Interpretation Code Description Data Melanie rce(s) Supporting Document(s) Microscopic observation [Identifier] in Unspecified specimen by Non- gynecological cytology method (SEE NOTE) [facility] ([facility]) SPECIMEN: FNA Left lower pole thyroid nodule Specimen received in Cytolyt SPECIMEN ADEQUACY: Satisfactory for evaluation CATEGORIZATION: Benign DESCRIPTIONS: Groups of follicular cells noted, some exhbiting hurthle cell changes. The background consists of rare macrophages and few lymphocytes. 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+LIo3cNG6oeVl+ygdET+nLqzfkFuZ1qTwmd0tEEu1ofLCKrXDn/MGzcVyzW/dWpzvhRmqeVBM3yvz/ [file] E+DQogICAgICAgICAgICAgICAgICAgICAgICAgICAgICAgICAgICAgICAgICAgICAgICAgICAgICAgIC AgICAgICAgICAgICAgICAgICAgICAgICAgICAgICAg ICAgICAgICAgICAgDQogICAgICAgICAgICAgICAgICAgICAgICAgICAgICAgICAgICAgICAgICAgICAg ICAgICAgICAgICAgICAgICAgICAgICAgICAgICAgICAgICAgICAgICAgICAgICAgICAgICAgDQogICAg ICAgICAgICAgICAgICAgICAgICAgICAgICAgICAgIC AgICAgICAgICAgICAgICAgICAgICAgICAgICAgICAgICAgICAgICAgICAgICAgICAgICAgICAgICAgIC AgICAgDQogICAgICAgICAgICAgICAgICAgICAgICAgICAgICAgICAgICAgICAgICAgICAgICAgICAgIC AgICAgICAgICAgICAgICAgICAgICAgICAgICAgICAg ICAgICAgICAgICAgICAgDQogICAgICAgICAgICAgICAgICAgICAgICAgICAgICAgICAgICAgICAgICAg ICAgICAgICAgICAgICAgICAgICAgICAgICAgICAgICAgICAgICAgICAgICAgICAgICAgICAgICAgDQog ICAgICAgICAgICAgICAgICAgICAgICAgICAgICAgIC AgICAgICAgICAgICAgICAgICAgICAgICAgICAgICAgICAgICAgICAgICAgICAgICAgICAgICAgICAgIC AgICAgICAgDQogICAgICAgICAgICAgICAgICAgICAgICAgICAgICAgICAgICAgICAgICAgICAgICAgIC AgICAgICAgICAgICAgICAgICAgICAgICAgICAgICAg ICAgICAgICAgICAgICAgICAgDQogICAgICAgICAgICAgICAgICAgICAgICAgICAgICAgICAgICAgICAg ICAgICAgICAgICAgICAgICAgICAgICAgICAgICAgICAgICAgICAgICAgICAgICAgICAgICAgICAgICAg DQogICAgICAgICAgICAgICAgICAgICAgICAgICAgIC AgICAgICAgICAgICAgICAgICAgICAgICAgICAgICAgICAgICAgICAgICAgICAgICAgICAgICAgICAgIC AgICAgICAgICAgDQogICAgICAgICAgICAgICAgICAgICAgICAgICAgICAgICAgICAgICAgICAgICAgIC AgICAgICAgICAgICAgICAgICAgICAgICAgICAgICAg ZDHfCGFgJZRgMGKvMLSgCELhXPRzLZz6Y5xfGTEhSQLvGG4iNOf3Vj8+MJrFXrWeUVK1zoPgrS6BPC3c b6NqQBokSOIyw4FnDBs2OH7XCKVvCJkaRC3SDNpzdo4DQCDgWNJmlYAMx4dfXuBfEZU2TOPeCualDJ2S UKLfB9syjpPpCEToKXXSJVpiTZASIIbiEWOUTEDqWV IbLdCzGnYfVGGzTN2UCIGhS609adYlRI6BKi7PXoLoMP6mwm6QSkTwLLDuMylOFxi7VAkqVH3XvJIycV SiFkLyLCJJQoNaF4egw2PwIxJcYHVFAOyhVF3Hn5NwvCNfAJb+Lb7HBE4xz8XjAIguHeUcNJ2qsa4NZG fSJbFgU6BstTwjXNOylvV3bMNmYQV1GOXlFQ4ql59q SCBVlBmlaM7as01oGR2SRAD8TDQdEE2kCTInZNE0EuWdAFESOF5CSQDfTZWigUEiEJJtQGZAHM9VRRef LCZ3GOLdtePqsFCsJUloOX0DMKJzksToBdAjYDWTUYe+Ts8KXH3oy8JbWCbbGcUnEM9aks6NWFcOJwXa K6B9pXKqH4Y7BAsrZn2MHGIsBXVgDmSgPJWSAIhvTJ 0CXL8iqfO0LO2ZuABsQUNtONFtvHMjHTq8E33vpZSoXBqbYB3OLON+Bello+Vl0KOTLlDSJjOXRoGfKaJM LXMgAbQ2HcI4DId0DgD6QsHZ78dRazxqOhVIjpPI9WNH4xGYVuDLBFIH2DrOSxeK5axmKqHCXoUMKENn RnI35vhXYzFKVjFCW4DURySv7BZSZwI3BkojNptOvu kyReHYBrCAWBDH5VLLfbqkCjcJOilLaxIC63nJohSL3MTg4FRjCvBA9mmp8CeHLzRy2KHSVtBX0HHXZd PVFkZCWeWPP7QYMqInFgIRdvYVTzMXZjMZL2YVHqVEJyFF1SRaYoQFYjBRY6CRReTQBjBNHmcw2QQBMk FPG2LiP5IUExWPHuQZTlTFcrFQAsFLYrJER7QVLnID PeSX9ANmJpVKGiUPWdBIwqOHHyKTCcsp1UVWUiBSQsFnCiIbVqVCQbYLQrBYtcJPXqCWK5NSTqESTfXN OuNS5FDrTgYTCrAKJjUmOzAFYlHCOzsp6NJMMdUYSkQGV4HBHxMDArJARbREqzNSNpTVH7NYYzHHXfGT EdPM0DIyYhAYXsPEO7TZFzNHEeLFBvjm5DGHVaCQRo GSZyZzAxNPPoCUOiBIrqJOLlXHApRta4BBCdNECaVA1NFoIxFVCtDQA3XNCxBNNhKRQrvx8FWDBrAYQm Xpu4HkTuJUJoDPUcAXofSBHkTTXeYRThNXTaIGNnKB1FZhTbLNGxSCUzMMLqYLVpHVWsth4LPMWnZHEp QYUrKmZcGBWgJQLeZFknKNQtEKY0YWU2FIFwBEUqBL 9ISkKyYCBmPYX1UZXoGFRyASFeol4YDQRjXITlTJC6JdQdYPIeLXLmFIwfCBQkRIP5HvZ7KSLeKFHnMH 5TLyBqPPQoWTA8RyMyPMNpCCWcey6QVZKtTTRiTeUhUvBxTZWlOZAeBMkyLVZhYNT1UjT6YTDpCDQdYX 5RPyKcSQCqIcv7NNUbXYTiOGAeij3CCMDcDKEaBKW0 YlUwMUCjTGWoMHmhFNVnRIM7TpF7JCWeLWQcKG7UWsLeEOLhPrctUaXrZRYsFNLcgo7RENMiONOcPRN6 YPTcJTIeFQQeLJneLMFlGGN0TWP2WEOyNCNpSZ3SViLjYNZwSnn1VBaeJEFvWHJgfa5CRQWhUZH2JTM6 KIIsBZXaFKJdHBdbAAFwAEBoVYS0IBTtNTPwRD6FVa SnKFDiVGE3SEmrLJAgXLCfzg4PPLHoISP9RbL5DNUjYIHkEFNmOFvoRTKnZKUaYrF7MCTsGFSmDL2QTa IlVVslQAVAJly0XSnoR0n8YKWdOY3QG0Jld0YbUatdCHMJDIjpVJ8vjgGdRGJiSs5SX9hFKzy3KzC4KZ LaQtB4MONyGFM1FtQ0UClzDcRrKeSgBpOkRQ3pZEwz UOObVGPgUtt6FFQ5SLp0IQK1BHN9MvOeHVNcDOI1IbSxST1OJt4MDqA8XNX1ySYeIc6YMTP7AGCBMfSm QV2WSSc= ID Date Data Source [id number] 08/03/2019 06:59:48 PM [facility] CT HEAD WITHOUT CONTRAST [id number] RESU LTInterpreted by:Jimena Plunkett MDINDICATION: Transferred from [facility] with worsening intracranial bleed after falling several weeks ago..TECHNIQUE: Contiguous axial CT images of the head from the base of the skull to the vertex without IV contrast. Automated dose lowering techniques and/or adjustment according to patient size were utilized for this exam.COMPARISON: CT head from [facility] dated 08/03/2019.FINDINGS: High density material within [...] rce(s) Supporting Document(s) ID Date Data Source [id number] 08/03/2019 06:57:26 PM EST [facility] Name Value Range Interpretation Code Description Data Melanie rce(s) Supporting Document(s) ED Provider Note [facility] JHNZKy7lEmFRDxAl40/YKYvdDALns0OtVQcvNXq0XTxsSHOuA4XfTUK1eR4nWAN3UZsPFrJvOaHlFVN4 lbm [file] 9DFM7cagO5AU0JmRSbUGRnGZIatIVrJRi6I57avATfHNiqDT0SWGQ+Bello+Jn1HZFFeZHQcRBOiNxLfTY TWLfLsG7PuE3FVz9IpU4XlUQ15zBuefsNaKPbkKI1H EX2iAKHsVHEXKK7HcOCjkL8zoqW2PyKoYEMPZsXeE72luZYpBBTnRND7ULZaTf5CHSTtM3WfhcCgiCwv niKrJMIgWMDBGA2AOMnwpwXzvCZtsIyrML31oIowNR5LCh0NFsTyDV9ryn0PoDKtHv9WJFS8At7XIOTs AQSpLZFcYZX0TJMmUoOaKLknWFXaBMOzGNN8XFYfYL MzOT7BOzWiSNGiSLOxNjOdIWJvVSHqly1DKTYqUER2XxQdABMkYLUcEETfOBbtTOCsRZRyJRM8KZIbIZ UpAU9MWsDuTUPjNITxGlLvHZIyCZMjtw5DKMAgMMWkVoDxUOHyTJNlOJWtPHsdBSOeAWY0JqakAOClCR OpHU0MWaQyOMGyJGA0NvimJUJvJIFxvt9HCRScCVMl JFQ0MEPdQLJvALHtGHklCNAdEDK2QVx8NNWzEAYrTD1DMdHaGFNmGOK3ZbMgUAIzLAZkml5ECNMtPUGd OTh1ZzFtMUEdZNUjUBoeZNYjHOX1CnP8DHCmUZNzWD3DBiTnPLVsGVS1NLYzFVRcIELhkz8BNEDeETDr FlK7JHShWASuQFQuLKkkBXByARP0FPA1BKIzAIFzDT 3EQhSiVXVpFzHhVWWhXXMkUJYdfv6WDZZbEYJcUKX3ZDLxNDYvSJMnWJzxNNCdYAEzEMBiNBHeRHLkWF 2VFzSaEDUcAbJlRlGkNIDsCQSbic0PQCShSYMdAnW0USNoKOAtRPMoVUtrQHYkJYG3GiV5NWFtRAOdLH 8BAlOmVHMaKqshFHDfXOEoSNTzxc0GKJChOJCrFGW6 EVXgOUFmRNGsPOkoKAFjXLCsGXRjQRQzJWEpWI4EYcXxVVRcNvW1VBbrYWCnOWBsuq9AOKYiMINmLaO6 MGTvOKQfEKQpTJdwSHDqGKVaWeBaPVYbBIJwXE7QZnAnKIUyRbZ3WyRqROYvSHIjrb8FZITkSWAhUTxm EkTwPONyIGAbOUmzUZAcJLX6SQUpCGLtDMNgNH3TRz TuDLIeNwZ4SPywQSTdEACruo3HXSXrNDHmWkJ1GPHwQSFeDMQhYYnoKVByMBZ3QaJ1FSIoGMRiYM7EQf XmBQWyMOz1UiHcXTQbYXQloz4ZSMRlDAB6FZS1RiHsWMTiQFUpDKgmCMGwJAU6NjViDSIaFGKkGH5XXo KsLBNfRHg6IDNmIHCjKVSgzy8TMWHhIXR9XKO0SyNg BHJnNTLkBRahQVTaJAQ4FFfbIKZePIVfYS4HKtLlNNMwLJa5GpobCFDnVQDtxw9LYYWtPIT7PQt1XnCd HQHbTUEsXJtbROJaEQIzGMJeAQTcEZQoVN3ITeXxHANkLHKvVJCvIYWqVHJlmy3XDQEkYLT8HNG9BmPh JNEzQCHwJBggCCOoYFHxHbo1YZQrMCUzTD6ZQpYuJA DbBEMiWWaeMNLiIDDsoc7EATKhPAQ7MtX5UKVmIVBlITPdDPkzWZMePWBqKUF4ZJXpHSDsFK8ZIpTxNG AbDHX1WcAuQDZvFCHaje5BCCSoEGK0Ycx0KAOqIZBxBZLiNYi0lfUskNNlWSr4IG6WI3PtnlMqHFZTEu 4Jt087ECRwIYHmYf3UT3bfFw3eADSaMFYQDd5BLMo1 MDZiT1GkSPy6ZXMuCUBgAjL3YIYmKxR8UrTtRGV6LfQ+YBepBjSjJtOxXWn7UWSgTTSfLadqXnXoMwWh IaDtASKiKW1wRAJMHg9+GRitxOTwrFryVFJEJiY0MEB4FNrkBIGEVs8J ID Date Data Source [id number] 08/03/2019 06:53:12 PM [facility] CT LUMBAR SPINE WITHOUT CONTRAST [id number] NAL RESULTInterpreted by:Jimena Plunkett MDINDICATION: 63-year-old female [...] the L1 vertebral body which exhibits a tsbn-fxm-nxsnrt appearance and based on comparison with MR spine dated 06/05/2009 likely represents a vertebral hemangioma.IMPRESSION: 1. No acute fracture or traumatic listhesis.2. Degenerative changes as described.3. Osseous lesion of the L1 vertebral body compatible with a vertebral hemangioma.This document has been electronically signed by Charlene Salinas MD on 08/03/2019 6:51 PM Name Value Range Interpretation Code Description Data [facility] rce(s) Supporting Document(s) ID Date Data Source [id number] 08/03/2019 04:20:39 PM [facility] Name Value Range Interpretation Code Description Data [facility] rce(s) Supporting Document(s) Leukocytes [#/volume] in Blood by Automated count 5.9 10*3/uL 4-10 [facility] Erythrocytes [#/volume] in Blood by Automated count 3.72 10*6/uL 4.1- 5.3 L [facility] Hemoglobin [Mass/volume] in Blood 12.3 g/dL 11.5-15.5 [facility] Hematocrit [Volume Fraction] of Blood by Automated count 36.5 % 3 6-45 [facility] Erythrocyte mean corpuscular volume [Entitic volume] by Auto mated count 98.1 fL 80-96 H [facility] Erythrocyte mean corpuscular hemoglobin [Entitic mass] by Automated count 33.1 pg 27-33 H [facility] Erythrocyte mean corpuscular hemoglobin concentration [Mass/volume] by Automated count 33.7 g/dL 32.0-36.0 [facility] distribution width [Ratio] by Automated count 14.3 % 11.5-14.5 [facility] Platelets [#/volume] in Blood by Automated count 95 10*3/uL 150-400 L [facility] Differential cell count method - Blood [facility] Neutrophils/100 leukocytes in Blood by Automated count 62 % [facility] Lymphocytes/100 leukocytes in Blood by Automated count 24 % [facility] Monocytes/100 leukocytes in Blood by Automated count 10 % [facility] Eosinophils/100 leukocytes in Blood by Automated count 3 % [facility] Basophils/100 leukocytes in Blood by Automated count 1 % [facility] Neutrophils [#/volume] in Blood by Automated count 3.71 10*3/uL 1.8-7 .0 [facility] Lymphocytes [#/volume] in Blood by Automated count 1.40 10*3/uL 1.2-4 .0 [facility] Monocytes [#/volume] in Blood by Automated count 0.62 10*3/uL 0-0.8 [facility] Eosinophils [#/volume] in Blood by Automated count 0.17 10*3/uL 0-0.5 [facility] Basophils [#/volume] in Blood by Automated count 0.04 10*3/uL 0-0.2 [facility] Nucleated erythrocytes/100 leukocytes [Ratio] in Blood by Automated count 0 /100{WBCs} 0-0 [facility] ID Date Data Source [id number] 08/03/2019 04:36:07 PM [facility] Name Value Range Interpretation Code Description Data Melanie rce(s) Supporting Document(s) Prothrombin time (PT) 12.9 s 12.5-14.9 [facility] INR in Platelet poor plasma by Coagulation assay 0.94 [facility] Routine intensity oral anticoagulation I NR is typically 2.0-3.0. Target INR must be clinically individualized. ID Date Data Source [id number] 08/03/2019 04:36:07 PM [facility] Value Range Interpretation Code Description Data Melanie rce(s) Supporting Document(s) aPTT in Platelet poor plasma by Coagulation assay 30.0 s 24.0-34. 0 [facility] ID Date Data Source [id number] 08/03/2019 04:49:30 PM [facility] Value Range Interpretation Code Description Data Melanie rce(s) Supporting Document(s) Bicarbonate [Moles/volume] in Serum 25 mmol/L 22-29 [facility] Chloride [Moles/volume] in Serum or Plasma 97 mmol/L 98-107 L [facility] Creatinine [Mass/volume] in Serum or Plasma 5.83 mg/dL 0.50-0.90 H [facility] Glucose [Mass/volume] in Serum or Plasma 85 mg/dL 70-140 [facility] Potassium [Moles/volume] in Serum or Plasma 5.0 mmol/L 3.4-5.1 [facility] Hemolyzed Sodium [Moles/volume] in Serum or Plasma 139 mmol/L 136-145 [facility] Urea nitrogen [Mass/volume] in Serum or Plasma 28 mg/dL 8-23 H [facility] Anion gap 3 in Serum or Plasma 17 mmol/L 8-15 H [facility] Osmolality of Serum or Plasma by calculation 293 mosm/kg 275-300 [facility] Creatinine/Urea nitrogen [Mass Ratio] in Serum or Plasma 5 [facility] Calcium [Mass/volume] in Serum or Plasma 9.3 mg/dL 8.8-10.2 [facility] Glomerular filtration rate/1.73 sq M pre dicted among non-blacks [Volume Rate/Area] in Serum or Plasma by Creatinine-based formula (MDRD) 7 mL/min/1.73m2 >60 L [facility] Glomerular filtration rate/1.73 sq M pre dicted among blacks [Volume Rate/Area] in Serum or Plasma by Creatinine-based formula (MDRD) 8 mL/min/1.73m2 >60 L [facility] Procedure Social History Code Duration Value Status Description Data Source(s ) Alcohol intake 08/31/2020 12:00:00 AM EST Current non-d marisa of alcohol (finding) completed Current non-drinker of alcohol (finding) [facility] Tobacco use and exposure 08/31/2020 12:00:00 AM EST Never used co mpleted Never used [facility] Cigarette pack-years 08/31/2020 12:00:00 AM EST [facility]K [facility] Cigarettes smoked current (pack per day) - Reported 08/31/19 12:00:00 AM EST [facility] Smoking 08/31/2020 12:00:00 AM EST Former smoker completed Former smoker [facility] Smoking 08/03/2020 12:00:00 AM EST Former Smoker completed Former Smoker eCW1 ([facility]) Alcohol intake 03/21/2020 12:00:00 AM EDT Current non-d marisa of alcohol (finding) completed Current non-drinker of alcohol (finding) [facility] Alcohol intake 02/20/2020 12:00:00 AM EDT Current non-d marisa of alcohol (finding) completed Current non-drinker of alcohol (finding) [facility] Cigarette pack-years 02/20/2020 12:00:00 AM EDT UNK completed [facility] Cigarettes smoked current (pack per day) - Reported 02/20/20 12:00:00 AM EDT UNK completed [facility] Smoking 02/20/2020 12:00:00 AM EDT Former smoker completed Former smoker [facility] Smoking 02/09/2020 12:00:00 AM EDT Former Smoker completed Former Smoker eCW1 ([facility]) Smoking 02/09/2020 12:00:00 AM EDT Former Smoker completed Former Smoker eCW1 ([facility]) Smoking 02/09/2020 12:00:00 AM EDT Former Smoker completed Former Smoker eCW1 ([facility]) Smoking 02/09/2020 12:00:00 AM EDT Former Smoker completed Former Smoker eCW1 ([facility]) Smoking 02/09/2020 12:00:00 AM EDT Former Smoker completed Former Smoker eCW1 ([facility]) Smoking 02/09/2020 12:00:00 AM EDT Former Smoker completed Former Smoker eCW1 ([facility]) Smoking 02/09/2020 12:00:00 AM EDT Former Smoker completed Former Smoker eCW1 ([facility]) Smoking 02/09/2020 12:00:00 AM EDT Former Smoker completed Former Smoker eCW1 ([facility]) Smoking 02/09/2020 12:00:00 AM EDT Former Smoker completed Former Smoker eCW1 ([facility]) Smoking 02/09/2020 12:00:00 AM EDT Former Smoker completed Former Smoker eCW1 ([facility]) Smoking 02/09/2020 12:00:00 AM EDT Former Smoker completed Former Smoker eCW1 ([facility]) Alcohol intake 02/03/2020 12:00:00 AM EDT Current non-d marisa of alcohol (finding) completed Current non-drinker of alcohol (finding) [facility] Cigarette pack-years 02/03/2020 12:00:00 AM EDT UNK completed [facility] Cigarettes smoked current (pack per day) - Reported 02/03/20 12:00:00 AM EDT UNK completed [facility] Smoking 02/03/2020 12:00:00 AM EDT Former smoker completed Former smoker [facility] Smoking 09/25/2019 12:00:00 AM EST Former Smoker completed Former Smoker [email or web address] ([facility]) Smoking 09/25/2019 12:00:00 AM EST Former Smoker completed Former Smoker eCW1 ([facility]) Alcohol intake 08/03/2019 12:00:00 AM EST Current non-d marisa of alcohol (finding) completed Current non-drinker of alcohol (finding) [facility] Cigarette pack-years 08/03/2019 12:00:00 AM EST UNK [facility] Cigarettes smoked current (pack per day) - Reported 08/03/19 12:00:00 AM EST UNK completed [facility] Smoking 08/03/2019 12:00:00 AM EST Former smoker completed Former smoker [facility] Vital Signs ID Date Data Source UNK Name Value Range Interpretation Code Description Data Source(s) Oxygen saturation in Arterial blood by Pulse oximetry 91 % 91 % [facility] ([facility]) Body mass index (BMI) [Ratio] 34.4 kg/m2 34.4 k g/m2 [facility] ([facility]) Body weight 176.12 [lb_av] 176.12 [lb_av] [facility] Body height 60 [in_i] 60 [in_i] [facility] ([facility]) 5'0" Heart rate 61 /min 61 /min [facility] ([facility]) Diastolic blood pressure 64 mm[Hg] 64 mm[Hg] [facility] ([facility]) Systolic blood pressure 110 mm[Hg] 110 mm[Hg] [facility] Oxygen saturation in Arterial blood by Pulse oximetry 96 % 96 % [facility] ([facility]) Body mass index (BMI) [Ratio] 33.7 kg/m2 33.7 k g/m2 [facility] ([facility]) Body weight 172.44 [lb_av] 172.44 [lb_av] [facility] ([facility]) Body height 60 [in_i] 60 [in_i] [facility] ([facility]) 5'0" Heart rate 100 /min 100 /min [facility] ([facility]) Diastolic blood pressure 86 mm[Hg] 86 mm[Hg] [facility] ([facility]) Systolic blood pressure 126 mm[Hg] 126 mm[Hg] M [facility] ([facility]) Oxygen saturation in Arterial blood by Pulse oximetry 97 % 97 % [facility] ([facility]) Body mass index (BMI) [Ratio] 33.7 kg/m2 33.7 k g/m2 [facility] ([facility]) Body weight 172.50 [lb_av] 172.50 [lb_av] [facility] T ([facility]) Body height 60 [in_i] 60 [in_i] [facility] ([facility]) 5'0" Heart rate 99 /min 99 /min [facility] ([facility]) Diastolic blood pressure 62 mm[Hg] 62 mm[Hg] [facility] ([facility]) Systolic blood pressure 136 mm[Hg] 136 mm[Hg] M EDENT ([facility]) Diastolic blood pressure 70 mm[Hg] 70 mm[Hg] eCW1 ([facility]) Systolic blood pressure 118 mm[Hg] 118 mm[Hg] e CW1 ([facility]) Body temperature 97.1 [degF] 97.1 [degF] eCW1 ( [facility]) Respiratory rate 18 /min 18 /min eCW1 ([facility]) Heart rate 128 /min 128 /min eCW1 ([facility]) Body mass index (BMI) [Ratio] 32.33 kg/m2 32.33 kg/m2 W1 ([facility]) Body height 62 [in_us] 62 [in_us] eCW1 ([facility]) Body weight Measured 176.8 [lb_av] 176.8 [lb_av ] eCW1 ([facility]) Diastolic blood pressure 76 mm[Hg] 76 mm[Hg] eCW1 ([facility]) Systolic blood pressure 122 mm[Hg] 122 mm[Hg] e CW1 ([facility]) Body temperature 97.2 [degF] 97.2 [degF] eCW1 ( [facility]) Respiratory rate 20 /min 20 /min eCW1 ([facility]) Heart rate 116 /min 116 /min eCW1 ([facility]) Body mass index (BMI) [Ratio] 31.16 kg/m2 31.16 kg/m2 eCW1 ([facility]) Body height 62 [in_us] 62 [in_us] eCW1 ([facility]) Body weight Measured 170.4 [lb_av] 170.4 [lb_av ] eCW1 ([facility]) ID Date Data Source [id number] 08/31/2020 11:51:39 AM [facility] Name Value Range Interpretation Code Description Data Source(s) PREFERRED NAME Maryjo Maryjo [facility] ID Date Data Source [id number] 08/31/2020 11:51:23 AM [facility] Name Value Range Interpretation Code Description Data Source(s) PREFERRED NAME Maryjo Maryjo [facility] ID Date Data Source [id number] 08/31/2020 11:51:23 AM [facility] Name Value Range Interpretation Code Description Data Source(s) PREFERRED NAME Maryjo Maryjo [facility] ID Date Data Source [id number] 09/04/2020 08:21:24 AM [facility] Name Value Range Interpretation Code Description Data Source(s) WEIGHT RECORDED 176 lb 176 lb [facility] Body height Measured 60 in 60 in [facility] PREFERRED NAME Maryjo Maryjo [facility] PREFERRED NAME Maryjo Maryjo [facility] ID Date Data Source [id number] 09/04/2020 08:06:09 AM [facility] Name Value Range Interpretation Code Description Data Source(s) PREFERRED NAME Maryjo Maryjo [facility] PREFERRED NAME Maryjo Maryjo [facility] ID Date Data Source [id number] 09/04/2020 08:06:09 AM [facility] Name Value Range Interpretation Code Description Data Source(s) PREFERRED NAME Maryjo Maryjo [facility] PREFERRED NAME Maryjo Maryjo [facility] ID Date Data Source [id number] [facility] Value Range Interpretation Code Description Data Source(s) WEIGHT RECORDED 183 lb 183 lb [facility] Body height Measured 60 in 60 in [facility] ID Date Data Source [id number] 03/02/2020 04:34:10 PM EDT [facility] Name Value Range Interpretation Code Description Data Source(s) WEIGHT RECORDED 178 lb 178 lb [facility] Body height Measured 60 in 60 in [facility] ID Date Data Source [id number] [facility] Interpretation Code Description Data Source(s) WEIGHT RECORDED 177 lb 177 lb [facility] Body height Measured 60 in 60 in [facility] ID Date Data Source [id number] 02/06/2020 08:36:[facility] Value Range Interpretation Code Description Data Source(s) WEIGHT RECORDED 177 lb 177 lb [facility] Body height Measured 60 in 60 in [facility] ID Date Data Source [id number] 08/05/2019 07:42:49 AM EST [facility] Value Range Interpretation Code Description Data Source(s) WEIGHT RECORDED 165 lb 165 lb [facility] Body height Measured 60 in 60 in [facility] Patient Treatment Plan of Care Planned Activity Planned Date Details Description Data Source (s) Acetaminophen 325 MG / Oxycodone Hydrochloride 5 MG Or al Tablet 08/23/2020 12:00:00 AM EST eCW1 ([facility]) Acetaminophen 325 MG / Hydrocodone Bitartrate 5 MG Ora l Tablet [[place]] 07/19/2020 12:00:00 AM EST eCW1 ([facility]) Acetaminophen 325 MG / Hydrocodone Bitartrate 5 MG Ora l Tablet [[place]] 07/19/2020 12:00:00 AM EST eCW1 ([facility]) Acetaminophen 325 MG / Hydrocodone Bitartrate 5 MG Ora l Tablet [[place]] 06/06/2020 12:00:00 AM EST eCW1 ([facility]) Acetaminophen 325 MG / Hydrocodone Bitartrate 5 MG Ora l Tablet [[place]] 05/25/2020 12:00:00 AM EDT eCW1 ([facility]) Acetaminophen 325 MG / Hydrocodone Bitartrate 5 MG Ora l Tablet [[place]] 05/25/2020 12:00:00 AM EDT eCW1 ([facility]) Acetaminophen 325 MG / Hydrocodone Bitartrate 5 MG Ora l Tablet [[place]] 05/25/2020 12:00:00 AM EDT eCW1 ([facility]) Acetaminophen 325 MG / Hydrocodone Bitartrate 5 MG Ora l Tablet 05/23/2020 12:00:00 AM EDT eCW1 ([facility]) Acetaminophen 325 MG / Hydrocodone Bitartrate 5 MG Ora l Tablet 01/17/2020 12:00:00 AM EDT eCW1 ([facility]) Acetaminophen 325 MG / Hydrocodone Bitartrate 5 MG Ora l Tablet 01/17/2020 12:00:00 AM EDT eCW1 ([facility]) Acetaminophen 325 MG / Hydrocodone Bitartrate 5 MG Ora l Tablet 11/25/2019 12:00:00 AM EDT eCW1 ([facility]) Acetaminophen 325 MG / Hydrocodone Bitartrate 5 MG Ora l Tablet 10/21/2019 12:00:00 AM EDT eCW1 ([facility]) Acetaminophen 325 MG / Hydrocodone Bitartrate 5 MG Ora l Tablet 09/14/2019 12:00:00 AM EST eCW1 ([facility]) One Touch Delica 33 gauge 08/29/2019 12:00:00 AM EST eCW1 ([facility]) OneTouch Verio - 08/29/2019 12:00:00 AM EST eCW1 ([facility]) One Touch Delica 33 gauge 08/29/2019 12:00:00 AM EST eCW1 ([facility]) OneTouch Verio - 08/29/2019 12:00:00 AM EST eCW1 ([facility]) One Touch Delica 33 gauge 08/29/2019 12:00:00 AM EST eCW1 ([facility]) OneTouch Verio - 08/29/2019 12:00:00 AM EST eCW1 ([facility]) OneTouch Verio - 08/29/2019 12:00:00 AM EST eCW1 ([facility]) One Touch Delica 33 gauge 08/29/2019 12:00:00 AM EST eCW1 ([facility]) Metoprolol Tartrate 50 MG Oral Tablet 08/26/2019 12:00:00 AM EST eCW1 ([facility]) Metoprolol Tartrate 50 MG Oral Tablet 08/26/2019 12:00:00 AM EST eCW1 ([facility]) Metoprolol Tartrate 50 MG Oral Tablet 08/26/2019 12:00:00 AM EST eCW1 ([facility]) Metoprolol Tartrate 50 MG Oral Tablet 08/26/2019 12:00:00 AM EST eCW1 ([facility]) Metoprolol Tartrate 50 MG Oral Tablet 08/26/2019 12:00:00 AM EST eCW1 ([facility]) Metoprolol Tartrate 50 MG Oral Tablet 08/26/2019 12:00:00 AM EST eCW1 ([facility]) Metoprolol Tartrate 50 MG Oral Tablet 08/26/2019 12:00:00 AM EST eCW1 ([facility]) Acetaminophen 325 MG / Hydrocodone Bitartrate 5 MG Ora l Tablet 08/15/2019 12:00:00 AM EST eCW1 ([facility]) 30 ACTUAT umeclidinium 0.0625 MG/ACTUAT / vilanterol 0.025 MG/ACTUAT Dry Powder Inhaler 08/03/2019 12:00:00 AM EST [facility] Acetaminophen 325 MG / Hydrocodone Bitartrate 5 MG Ora l Tablet 07/15/2019 12:00:00 AM EST eCW1 ([facility]) Tiotropium [place]-Olodaterol 2.5-2.5 MC G/ACT Inhalation Aerosol Solution (STIOLTO RESPIMAT) 07/05/2019 12:00:00 AM [facility] sucroferric oxyhydroxide 500 MG Chewable Tablet [facility] b complex-vitamin c-folic acid (NEPHRO-GUILHERME) 0.8 MG [facility]
--- NOTE | 2020-09-12 22:20 | REPVR ---
PROCEDURE INFORMATION: Exam: CT Cervical Spine Without Contrast Exam date and time: 09/12/2020 9:54 PM Age: 64 years old Clinical indication: Injury or trauma; Fall; Blunt trauma; Additional info: Fall, PT tender TECHNIQUE: Imaging protocol: Computed tomography images of the cervical spine without contrast. Radiation optimization: All CT scans at this facility use at least one of these dose optimization techniques: automated exposure control; mA and/or kV adjustment per patient size (includes targeted exams where dose is matched to clinical indication); or iterative reconstruction. COMPARISON: CT Spine,cervical w/o contrast 09/11/2020 6:38 AM FINDINGS: Bones/joints: Mild retrolisthesis of C5 on C6. Mild loss of height involving C5 and C6 is stable. Stable endplate irregularity at C5-C6. No acute cervical spine fracture. There are degenerative changes about the dens. Mild to moderate prevertebral osteophytosis. Discs/Spinal canal/Neural foramina: No definite high-grade central canal stenosis within limitations of technique. Lungs: Lung apices are normal. Pleural spaces: No visible pneumothorax. Vasculature: Vascular calcification. Soft tissues: Unremarkable. IMPRESSION: No acute cervical spine fracture. Electronically signed by: Ravi Mckenna On 09/12/2020 22:20:47 PM
--- NOTE | 2020-09-12 23:08 | REPVR ---
PROCEDURE INFORMATION: Exam: XR Bilateral Hips with Pelvis when Performed Exam date and time: 09/12/2020 10:59 PM Age: 64 years old Clinical indication: Other: Fell on knees; Additional info: Fall onto knees, PT tender TECHNIQUE: Imaging protocol: XR bilateral hips with pelvis when performed. Views: 2 views. COMPARISON: CR HIPS BILAT W-AP PELVIS 07/23/2020 7:20 AM FINDINGS: Bones/joints: Mild degenerative change. Diffuse osteopenia. No definite acute fracture or dislocation. Soft tissues: Unremarkable. IMPRESSION: Osteopenia without definite acute osseous abnormality. If clinical concern persists, CT may be considered. Electronically signed by: Ravi Mckenna On 09/12/2020 23:08:44 PM
--- NOTE | 2020-09-12 23:10 | REPVR ---
PROCEDURE INFORMATION: Exam: XR Right Knee Exam date and time: 09/12/2020 10:59 PM Age: 64 years old Clinical indication: Other: Fall; Additional info: Fall onto knees, PT tender TECHNIQUE: Imaging protocol: XR Right knee. Views: 4 or more views. COMPARISON: MRI-Knee WITHOUT CONTRAST 07/23/2020 2:08 PM FINDINGS: Bones/joints: Diffuse osteopenia. No acute fracture or dislocation. Soft tissues: Normal. Vasculature: Vascular calcification. IMPRESSION: No acute osseous abnormality. PROCEDURE INFORMATION: Exam: XR Left Knee Exam date and time: 09/12/2020 10:59 PM Age: 64 years old Clinical indication: Other: Fall; Additional info: Fall onto knees, PT tender TECHNIQUE: Imaging protocol: XR Left knee. Views: 4 or more views. COMPARISON: MRI-Knee WITHOUT CONTRAST 07/23/2020 2:08 PM FINDINGS: Bones/joints: Diffuse osteopenia. No acute fracture or dislocation. Soft tissues: Normal. Vasculature: Vascular calcification. IMPRESSION: No acute osseous abnormality. Electronically signed by: Ravi Mckenna On 09/12/2020 23:10:36 PM
[2020-09-12 23:52] VITALS: BP 114/59
== END 2020-09-12 23:58 | disposition home or self-care (01) ==
LOC: M ED 20:21
DX: S80.00XA Contusion of unspecified knee, initial encounter (principal); M54.2 Cervicalgia; M25.551 Pain in right hip; W19.XXXA Unspecified fall, initial encounter; W01.0XXA Fall on same level from slipping, tripping and stumbling without subsequent striking against object, initial encounter; Y92.410 Unspecified street and highway as the place of occurrence of the external cause; Y93.9 Activity, unspecified; Y99.9 Unspecified external cause status; N18.6 End stage renal disease; Z99.2 Dependence on renal dialysis; M85.88 Other specified disorders of bone density and structure, other site; Z79.82 Long term (current) use of aspirin; Z79.899 Other long term (current) drug therapy; Z88.8 Allergy status to other drugs, medicaments and biological substances

== ENCOUNTER 2020-11-08 16:12 | Emergency (ER) | payer MEDICARE, MEDICAID ==
[~2020-11-08] VITALS: Ht 154.9 cm; Wt 79.5 kg
[2020-11-08] MEDS ORDERED: OXYMETAZOLINE 0.05% NASAL SPRAY (AFRIN) ONE (17:00)
[2020-11-08 17:29] LABS: BASO % 0.6 % (0.0-1.0); HEMATOCRIT 33.7 % (36.0-47.0); HEMOGLOBIN 10.6 g/dl (12.0-15.5); LYMPH # 0.9 10^3/uL (1.5-5.0); LYMPH % 18.8 % (24.0-44.0); MEAN CORPUSCULAR HEMOGLOBIN 32.6 pg (27.0-33.0); MEAN CORPUSCULAR HGB CONC 31.5 g/dl (32.0-36.5); MEAN CORPUSCULAR VOLUME 103.7 fl (80.0-96.0); MONO # 0.6 10^3/uL (0.0-0.8); MONO % 12.8 % (2.0-8.0); NEUTROPHILS # 3.3 10^3/uL (1.5-8.5); NEUTROPHILS % 67.4 % (36.0-66.0); RED BLOOD COUNT 3.25 10^6/uL (4.00-5.40); WHITE BLOOD COUNT 4.8 10^3/uL (4.0-10.0)
--- NOTE | 2020-11-08 17:36 | REP ---
INDICATION: DYSPNEA/COUGH. COMPARISON: 08/21/2019 TECHNIQUE: Portable FINDINGS: The technique utilized in obtaining the radiograph has magnified the cardiac silhouette and accentuated the interstitial markings. The superior mediastinal structures are midline. The cardiac silhouette is enlarged. The diaphragmatic surfaces of the lungs are regular, and the right costophrenic angle is clear. There is a discoid opacity in the left CP angle. The pulmonary spencer are otherwise clear. The imaged osseous structures are intact. IMPRESSION: Likely subsegmental atelectatic change in the left CP angle. Early pneumonia cannot be completely ruled out. There is chronic cardiomegaly. <Electronically signed by Kodi Soler > 11/08/20 [id number]
[2020-11-08 17:52] LABS: PLATELET COUNT, AUTOMATED 88 10^3/uL (150-450)
[2020-11-08 18:10] LABS: BLOOD UREA NITROGEN 57 MG/DL (7-18); CARBON DIOXIDE LEVEL 30 mmol/L (20-29); CHLORIDE LEVEL 96 MEQ/L (98-107); GLUCOSE, FASTING 194 MG/DL (70-100); SODIUM LEVEL 136 MEQ/L (136-145)
[2020-11-08 18:11] LABS: CALCIUM LEVEL 8.6 MG/DL (8.8-10.2); CK-MB VALUE MASS < 1.0 NG/ML (<3.6); CPK CREATINE PHOSPHOKINASE 27 U/L (26-192); CREATININE FOR GFR 9.52 MG/DL (0.55-1.30); GLOMERULAR FILTRATION RATE 4.4 (>45)
[2020-11-08 18:12] LABS: NT-PRO BNP 15410 PG/ML (<125); TROPONIN I < 0.02 NG/ML (< 0.10)
[2020-11-08 18:37] LABS: ALBUMIN 3.7 GM/DL (3.2-5.2); ALT/SGPT 22 IU/L (0-32); BILIRUBIN,DIRECT 0.1 MG/DL (0.0-0.2); BILIRUBIN,TOTAL 0.4 MG/DL (0.2-1.0); TOTAL PROTEIN 7.2 GM/DL (6.4-8.2)
[2020-11-08] MEDS ORDERED: ACETAMINOPHEN 325 MG TAB PO ONE (19:10)
[2020-11-08 19:15] VITALS: BP 116/79
[2020-11-08] MEDS ORDERED: FLON1SPR NARES (19:28)
--- NOTE | 2020-11-09 19:45 | ECGEPIP ---
[facility] - ED Test Date: 2020-11-08 Pat Name: JOSE ROGERS Department: Room: - Gender: Female Hospital Unit Clerk: UNA : 1955 Requested By: ANGEL OHARA Order Number: [id number] Reading MD: Sarah Beth Griffin Measurements Intervals [place] Rate: 99 P: [place]: QRS: 31 QRSD: 76 T: 9 QT: 392 QTc: 503 Interpretive Statements Atrial fibrillation Nonspecific ST abnormality Prolonged QT/increased rate compared 08/21/19 Electronically Signed on 11-09-2020 19:45:59 EDT by Sarah Beth Griffin
== END 2020-11-08 19:55 | disposition home or self-care (01) ==
LOC: M ED 16:12
DX: B97.29 Other coronavirus as the cause of diseases classified elsewhere (principal); I48.91 Unspecified atrial fibrillation; R06.02 Shortness of breath; I51.9 Heart disease, unspecified; I51.7 Cardiomegaly; N18.9 Chronic kidney disease, unspecified; E78.5 Hyperlipidemia, unspecified; Z87.01 Personal history of pneumonia (recurrent); Z87.448 Personal history of other diseases of urinary system; Z79.82 Long term (current) use of aspirin; Z79.899 Other long term (current) drug therapy; Z88.8 Allergy status to other drugs, medicaments and biological substances

== ENCOUNTER 2021-01-16 08:58 | Observation (INO) | payer MEDICARE, MEDICAID ==
[~2021-01-16] VITALS: Ht 154.9 cm; Wt 79.9 kg
[2021-01-16] MEDS: LEVOTHYROXINE 75MCG TABLET (0.075MG) PO SCH (06:00)
[~2021-01-16 08:58] MED LIST changes: +ERGO500029 PO; +FLON1SPR NARES; +OMEP40CA4 PO; -OMEP40CA97 PO; -OXYC1TAB15 PO; +OXYC7.5T3 PO; -VITA50005 PO
[2021-01-16] MEDS ORDERED: VELP5CHW PO (09:26)
[2021-01-16] MEDS ORDERED: CINA30TA5 PO (09:26)
[2021-01-16] MEDS ORDERED: ANOR1AER PO (09:32)
[2021-01-16 09:54] LABS: BASO % 0.7 % (0.0-1.0); EOS # 0.2 10^3/uL (0.0-0.5); EOS % 2.7 % (0.0-3.0); HEMATOCRIT 34.8 % (36.0-47.0); HEMOGLOBIN 10.9 g/dl (12.0-15.5); LYMPH # 0.9 10^3/uL (1.5-5.0); LYMPH % 15.3 % (24.0-44.0); MEAN CORPUSCULAR HEMOGLOBIN 32.3 pg (27.0-33.0); MEAN CORPUSCULAR HGB CONC 31.3 g/dl (32.0-36.5); MEAN CORPUSCULAR VOLUME 103.3 fl (80.0-96.0); MONO # 0.5 10^3/uL (0.0-0.8); MONO % 8.5 % (2.0-8.0); NEUTROPHILS # 4.3 10^3/uL (1.5-8.5); NEUTROPHILS % 72.3 % (36.0-66.0); PLATELET COUNT, AUTOMATED 108 10^3/uL (150-450); RED BLOOD COUNT 3.37 10^6/uL (4.00-5.40); WHITE BLOOD COUNT 5.9 10^3/uL (4.0-10.0)
--- NOTE | 2021-01-16 10:13 | REP ---
INDICATION: DYSPNEA/COUGH. COMPARISON: 11/08/2020 TECHNIQUE: Portable FINDINGS: The technique utilized in obtaining the radiograph has magnified the cardiac silhouette and accentuated the interstitial markings. The superior mediastinal structures are midline. The cardiac silhouette is mildly enlarged but accentuated by technique status quo. The diaphragmatic surfaces of lungs are regular, and the costophrenic angles are clear. The pulmonary spencer are clear. The imaged osseous structures are intact. IMPRESSION: There is no acute cardiopulmonary disease. <Electronically signed by Kodi Soler > 01/16/21 [id number]
[2021-01-16] MEDS ORDERED: METOCLOPRAMIDE INJ 10MG/2ML VIAL (J2765 PER 1) IV ONE (10:20)
[2021-01-16] MEDS ORDERED: METOPROLOL TART 50 MG TAB PO ONE (10:20)
[2021-01-16 10:29] LABS: BLOOD UREA NITROGEN 30 MG/DL (7-18); CALCIUM LEVEL 8.8 MG/DL (8.8-10.2); CARBON DIOXIDE LEVEL 31 MEQ/L (21-32); CHLORIDE LEVEL 102 MEQ/L (98-107); CK-MB VALUE MASS < 1.0 NG/ML (<3.6); CPK CREATINE PHOSPHOKINASE 19 U/L (26-192); CREATININE FOR GFR 6.21 MG/DL (0.55-1.30); GLOMERULAR FILTRATION RATE 7.2 (>45); GLUCOSE, FASTING 133 MG/DL (70-100); MB/CK RELATIVE INDEX 5.26 (< OR =4); NT-PRO BNP 26445 PG/ML (<125); POTASSIUM SERUM 4.8 MEQ/L (3.5-5.1); SODIUM LEVEL 139 MEQ/L (136-145); TROPONIN I < 0.02 NG/ML (< 0.10)
[2021-01-16 10:39] LABS: VENOUS PH 7.357 UNITS (7.330-7.430)
[2021-01-16 10:40] LABS: VENOUS BASE EXCESS 2.1 (-2.0-2.0); VENOUS HCO3 28.4 MEQ/L (23.0-27.0); VENOUS O2 SATURATION 85.4 % (60.0-80.0); VENOUS PARTIAL PRESSURE CO2 51.7 mmHg (38.0-50.0); VENOUS PARTIAL PRESSURE O2 54.8 mmHg (30.0-50.0); VENOUS STANDARD HCO3 26.1 MEQ/L; VENOUS TOTAL CO2 29.9 MEQ/L (24.0-28.0)
[2021-01-16 12:00] VITALS: O2SAT 77
[2021-01-16] MEDS ORDERED: ISOVUE-370 76% 100ML VIAL As Ordered ONE (12:05)
--- NOTE | 2021-01-16 12:43 | REP ---
INDICATION: hypoxia. COMPARISON: 10/20/2017. TECHNIQUE: CT angiogram chest performed following the intravenous administration of 100 cc of Isovue 370. Sagittal and coronal reconstruction images are performed. FINDINGS: Lungs: There are diffuse increased interstitial markings with thickening of interlobular septae, consistent with mild diffuse interstitial edema/infiltrate. There are mild patchy areas of atelectasis/infiltrate in each lung base. Mediastinum: No adenopathy. Pulmonary arteries: No evidence of pulmonary embolism. [place]: No adenopathy. Axilla: No adenopathy. Pleura: There are very small bilateral pleural effusions. Heart: Slightly enlarged. Thoracic aorta: No aneurysm or dissection. Upper abdominal structures: There are few calcified granulomas in the spleen. The 1.5 cm cyst in the upper pole the left kidney. Visualized osseous structures: There are mild degenerative changes of the spine without compression deformity. IMPRESSION: No CT evidence of pulmonary embolism. Findings most consistent with mild diffuse interstitial edema with mild patchy bibasilar atelectasis/infiltrate and very small bilateral pleural effusions. <Electronically signed by Scout King > 01/16/21 [id number]
[2021-01-16 13:15] LABS: RSV AMPLIFICATION NEGATIVE (NEGATIVE)
[2021-01-16] MEDS ORDERED: ACETAMINOPHEN TAB 650MG DOSE (2X325MG) PO PRN (13:35)
[2021-01-16] MEDS ORDERED: VITA1CAP25 PO (13:59)
[2021-01-16] MEDS ORDERED: HYDR-4571 PO (13:59)
[2021-01-16] MEDS ORDERED: FLON1SPR NARES (13:59)
[2021-01-16] MEDS ORDERED: CYCL5TAB PO (13:59)
[2021-01-16] MEDS ORDERED: DIAZ2TAB PO (13:59)
[2021-01-16] MEDS ORDERED: APAP325T4 PO (13:59)
[2021-01-16] MEDS ORDERED: ONDA-83 PO (13:59)
[2021-01-16 15:00] VITALS: BP 161/100
[2021-01-16] MEDS ORDERED: NORCO, ANEXSIA 5/325MG TABLET (HYDROcodone/ACETAMINOPHEN) PO PRN (15:25)
[2021-01-16] MEDS ORDERED: FLUTICASONE PROP 0.05% NASAL SPRAY 16 GM (FLONASE) NARES PRN (15:25)
[2021-01-16] MEDS ORDERED: MIRALAX *UNIT DOSE* 17GM PACKET PO PRN (15:25)
[2021-01-16] MEDS ORDERED: diazePAM 2 MG TAB PO PRN (15:25)
[2021-01-16] MEDS ORDERED: CYCLOBENZAPRINE 5MG TABLET PO PRN (15:25)
[2021-01-16] MEDS ORDERED: ONDANSETRON 4 MG TAB PO PRN (15:25)
--- NOTE | 2021-01-16 15:28 | HPEPDOC ---
[facility] Medical History & Physical Date of Admission Jan 16, 2021 Date of Service: Jan 16, 2021 Attending Physician: NEW EDWARD MD History and Physical CHIEF COMPLAINT: SOB HISTORY OF PRESENT ILLNESS: 65-year-old W with known history of ESRD on HD, Afib on full dose aspirin and no therapeutic anticoagulation, diabetes that has since resolved, hypertension, COPD and congestive heart failure who presented to the Emergency Room with acute dyspnea that worsens with exertion since shortly after outpatient HD yesterday during which she reports that it had to be cut short 2/2 hypotension and she received a 500cc fluid bolus for hemodynamic support. She was asymptomatic at the time, and reports that she often does get hypotensive during HD but her dyspnea began after return home and has persisted. She wears nocturnal oxygen at night that she reports is for her COPD but I suspect may also have PRABHJOT given the nocturnal requirement and obesity. She otherwise denied a history of recent fever, chills, cough, travel, extremity swelling, chest pain, palpitations, nausea, emesis or abdominal pain. In the ED, she was mildly hypertensive, in Afib with mild RVR i/s/o of not having taken her metoprol this morning, that she was given with good effect and stable on room air but hypoxemic with exertion and so was placed on 2L NC. Evaluation showed WBC of 5.9, Hgb 10.9 at her recent baseline, platelets 108 at her recent baseline, proBNP 30218, Cr 6.21, Na 139, K 4.8, troponin <0.02 and EKG with no ST changes with Afib and RVR. She had a CTA that showed diffuse increased interstitial markings with thickening of interlobular septae, consistent with mild diffuse interstitial edema and mild bilateral pleural effusions without a noted PE. She is now being admitted to medicine with nephrology consult for volume optimization by HD. PAST MEDICAL HISTORY: Significant for: 1. Diabetes, that has resolved. 2. Hypertension. 3. COPD. 4. Congestive heart failure. 5. Atrial fibrillation and flutter. 6. History of end-stage renal disease. 7. Secondary hyperparathyroidism. 8. Anemia. 9. History of obstructive sleep apnea. 10. History of aortic sclerosis. 11. Pulmonary hypertension. 12. Hypothyroidism. 13. History of vestibular neuritis and vertigo. 14. History of fatty liver. 15. Anxiety. 16. History of nephrolithiasis. 17. Obesity PAST SURGICAL HISTORY: 1. section. 2. Lumbar discectomy. 3. Hysterectomy. 4. Ventriculostomy for an intracranial hemorrhage. 5. Urethroscopy with left stent placement and removal. 6. AV fistula FAMILY HISTORY: Strong history of diabetes, heart disease and stroke. PERSONAL AND SOCIAL HISTORY: Denies any history of smoking, alcohol or illicit drug use. ALLERGIES: Patient has allergy to QUINOLONES. ROS: 10 point ROS was negative except as noted in the HPI. PHYSICAL EXAMINATION: Vitals: see below General: NAD, on 2L NC Head: NCAT Eyes: EOMI, anicteric, no injection, PERRLA ENT: MMM, nasal canula in place Neck: supple, no adenopathy, difficult to assess for JVD due to habitus Pulm: Fine crackles heard to posterior mid lungs from the bases, otherwise moving air well, no wheezing or rhonchi Cardiac: Irregularly irregular, mild tachycardia, no noted murmurs Abd: Obese, normoactive sounds, soft, NTND Ext: WWP, no LE edema Neuro: AOx3, clear speech, CN3-12 intact, grossly nonfocal Labs and Imaging: as noted above, see below for full details. Assessment: 65-year-old W with known history of ESRD on HD, Afib on full dose aspirin and no therapeutic anticoagulation, diabetes that has since resolved, hypertension, COPD and congestive heart failure who presented to the ED with acute dyspnea that worsens with exertion since outpatient HD yesterday during which she reports that it had to be cut short 2/2 hypotension and she received a 500cc fluid bolus for hemodynamic support and now admitted for acute on chronic HFpEF. HFpEF exacerbation: i/s/o recent fluids for transient hypotension and partial HD yesterday -Nephrology consulted, Dr. Bond planning to dialyze right away -2g sodium in renal diet -strict I/Os -daily weights ESRD with volume overload -Electrolytes within normal limits, check BMP daily -Planning for HD right away -continue home velphoro Chronic Afib, initially noted to be in RVR that resolved with resume home meds -continue metoprol tartrate 50mg BID -remote telemetry -ASA 325mg daily -Not on AC Hypothyroidism: -continue home synthroid HLD: -continue home rosuvastatin GERD: -continue home omeprazole Chronic pain: -continue home oxycodone/acetaminophen Anxiety: -continue home BID PRN diazepam COPD: stable without evidence of acute exacerbation at this time -substitute home mdis with spiriva and inhaled salmeterol -continue home flonase DVT ppx: heparin Q12H 5000u subcutaneous Dispo: medsurg, tele, obs Vital Signs Vital Signs Date Time Temp Pulse Resp B/P (MAP) Pulse Ox O2 Delivery O2 Flow Rate FiO2 01/16/21 13:30 145/72 (96) 01/16/21 13:23 123 99 Nasal Cannula 1.0 01/16/21 09:12 97.0 18 Laboratory Data Labs 24H Laboratory Tests 2 01/16/21 09:24: Immature Granulocyte % (Auto) 0.5, Neutrophils (%) (Auto) 72.3H, Lymphocytes (%) (Auto) 15.3L, Monocytes (%) (Auto) 8.5H, Eosinophils (%) (Auto) 2.7, Basophils (%) (Auto) 0.7, Neutrophils # (Auto) 4.3, Lymphocytes # (Auto) 0.9L, Monocytes # (Auto) 0.5, Eosinophils # (Auto) 0.2, Basophils # (Auto) 0.0, Nucleated Red Blood Cells % (auto) 0.0, Blood Gas Bicarbonate Standard 26.1, Venous Blood pH 7.357, Venous Blood Partial Pressure CO2 51.7H, Venous Blood Partial Pressure O2 54.8H, Venous Blood Total Carbon Dioxide 29.9H, Venous Blood HCO3 28.4H, Venous Blood Oxygen Saturation 85.4H, Venous Blood Base Excess 2.1H, Anion Gap 6L, Glomerular Filtration Rate 7.2L, Lactic Acid Level 1.1, Calcium Level 8.8, Total Creatine Kinase 19L, Creatine Kinase MB < 1.0, Creatine Kinase MB Relative Index 5.26H, Troponin I < 0.02, HN-Nkq-T-Type Natriuretic Peptide [id number] 01/16/21 12:24: Coronavirus (COVID-19)(PCR) NEGATIVE, Influenza Type A (RT-PCR) NEGATIVE, Influenza Type B (RT-PCR) NEGATIVE, Respiratory Syncytial Virus (PCR) NEGATIVE CBC/BMP Laboratory Tests 01/16/21 09:24 Home Medications Scheduled Aspirin (Aspirin) 325 Mg Tab, 325 MG PO DAILY Ergocalciferol (Vitamin D2) (Vitamin D2) 50,000 Units Cap, 50,000 UNIT PO Q2WK EVERY OTHER THURSDAY Fluticasone Propionate (Flonase Allergy Relief) 9.9 Ml [place].susp, 2 SPRAY NARES DAILY Folic Acid/Vit B Complex and C (Kyra-Mirella Tablet) 1 Tab Tab, 1 TAB PO DAILY Levothyroxine Sodium (Levothyroxine Sodium) 75 Mcg Tab, 75 MCG PO DAILY Lidocaine (Lidoderm) 5% Adh..patch, 1 PATCH TOP DAILY may wear up to 12 hours Metoprolol Tartrate (Metoprolol Tartrate) 50 Mg Tablet, 50 MG PO BID SKIPS EVENING DOSE DAY BEFORE DIALYSIS (//THU) Omeprazole (Omeprazole) 40 Mg Cap, 40 MG PO DAILY Rosuvastatin Calcium (Crestor) 20 Mg Tab, 20 MG PO QHS Sucroferric Oxyhydroxide (Velphoro) 500 Mg Tab.chew, 500 MG PO TID Trazodone HCl (Trazodone HCl) 100 Mg Tab, 100 MG PO QHS Umeclidinium Brm/Vilanterol Tr (Anoro Ellipta 62.5-25 Mcg INH) 1 Each Blst.w.dev, 1 PUFF PO DAILY Scheduled PRN Cyclobenzaprine HCl (Cyclobenzaprine HCl) 5 Mg Tab, 5 MG PO TID PRN for MUSCLE SPASMS Diazepam (Diazepam) 2 Mg Tablet, 2 MG PO BID PRN for ANXIETY Oxycodone/Acetaminophen (Oxycodone-Acetaminophen 5-325) 1 Each Tablet, 1 TAB PO Q8HP PRN for SEVERE PAIN (PS 8-10) Polyethylene Glycol 3350 (Miralax) 119 Gm Powder, 17 GM PO DAILY PRN for CONSTIPATION dilute in 8 ounces of water or juice Allergies Coded Allergies: Quinolones (Verified Allergy, Severe, 08/03/19) A-FIB/CHADSVASC A-FIB History Current/History of A-Fib/PAF?: Yes Current PO Anticoag Therapy: No Age/Risk Factor Scoring CHADSVASC: CHADSVASC Response (Comments) Value Age Risk Factor Age < 65 years old 0 Gender Risk Factor Female 1 Hx of CHF Yes 1 Hx of HTN Yes 1 Hx of Stroke/TIA/or VTE No 0 Hx of Diabetes Yes 1 Hx of Vascular Disease Yes 1 Total 5 Treatment Treatment ordered: NONE Reason Anticoagulant not given: Other Other reason anticoagulant not: History of bleeding, on ASA 325 NEW EDWARD MD Jan 16, 2021 15:28
[2021-01-16] MEDS: ASPIRIN 325 MG TAB PO SCH (19:46)
[2021-01-16] MEDS: OMEPRAZOLE 20 MG CAP PO SCH (19:46)
[2021-01-16] MEDS: SUCROFERRIC OXYHYDROXIDE 500MG CHEW TAB (VELPHORO) PO SCH (19:46)
[2021-01-16] MEDS: NEPHRO-VIT TAB (NEPHROCAPS) PO SCH (19:47)
[2021-01-16] MEDS: SALMETEROL DISKUS 50MCG INHALER (SEREVENT) INH SCH (20:00)
[2021-01-16] MEDS: METOPROLOL TART 50 MG TAB PO SCH (20:49)
[2021-01-16 20:50] VITALS: BP 126/78
[2021-01-16] MEDS: HEPARIN SOD (PORCINE) 5000UNITS/ML 1ML VIAL/SYRINGE SC SCH (20:54)
[2021-01-16] MEDS ORDERED: ROSUVASTATIN 10 MG TAB (CRESTOR) PO SCH (21:00)
[2021-01-16] MEDS ORDERED: traZODone 100 MG TAB PO SCH (21:00)
[2021-01-16] MEDS ORDERED: diazePAM 2 MG TAB PO SCH (21:00)
[2021-01-16] MEDS ORDERED: CYCLOBENZAPRINE 5MG TABLET PO SCH (21:00)
[2021-01-17 06:00] VITALS: BP 120/76
[2021-01-17] MEDS: OMEPRAZOLE 20 MG CAP PO SCH (06:02)
[2021-01-17] MEDS: ASPIRIN 325 MG TAB PO SCH (06:02)
[2021-01-17] MEDS: NEPHRO-VIT TAB (NEPHROCAPS) PO SCH (06:02)
[2021-01-17] MEDS: LEVOTHYROXINE 75MCG TABLET (0.075MG) PO SCH (06:02)
[2021-01-17] MEDS: HEPARIN SOD (PORCINE) 5000UNITS/ML 1ML VIAL/SYRINGE SC SCH (06:02)
[2021-01-17 06:39] LABS: HEMATOCRIT 31.1 % (36.0-47.0); HEMOGLOBIN 9.7 g/dl (12.0-15.5); MEAN CORPUSCULAR HEMOGLOBIN 32.1 pg (27.0-33.0); MEAN CORPUSCULAR HGB CONC 31.2 g/dl (32.0-36.5); PLATELET COUNT, AUTOMATED 102 10^3/uL (150-450); RED BLOOD COUNT 3.02 10^6/uL (4.00-5.40); WHITE BLOOD COUNT 5.8 10^3/uL (4.0-10.0)
[2021-01-17] MEDS: SUCROFERRIC OXYHYDROXIDE 500MG CHEW TAB (VELPHORO) PO SCH ×2 (07:02→13:09)
[2021-01-17 07:07] LABS: CALCIUM LEVEL 8.9 MG/DL (8.8-10.2); CREATININE FOR GFR 5.03 MG/DL (0.55-1.30); GLOMERULAR FILTRATION RATE 9.2 (>45); MAGNESIUM LEVEL 1.9 MG/DL (1.8-2.4); POTASSIUM SERUM 4.3 MEQ/L (3.5-5.1)
--- NOTE | 2021-01-17 07:14 | ECGEPIP ---
[facility] - ED Test Date: 2021-01-16 Pat Name: JOSE ROGERS Department: Room: - Gender: Female Property Man: Kaiden CHAPA : 1955 Requested By: Sarah Beth Griffin Order Number: [id number] Reading MD: Hardik Velasquez Measurements Intervals [place] Rate: 114 P: [place]: QRS: 20 QRSD: 80 T: -59 QT: 344 QTc: 474 Interpretive Statements Atrial fibrillation with rapid ventricular response Low voltage QRS INCOMPLETE RIGHT BUNDLE BRANCH BLOCK Nonspecific ST and T wave abnormality SIMILAR TO 11/08/20 Electronically Signed on 01-17-2021 7:13:58 EDT by Hardik Velasquez
[2021-01-17 07:33] VITALS: BP 120/76
[2021-01-17] MEDS: METOPROLOL TART 50 MG TAB PO SCH (07:33)
[2021-01-17] MEDS ORDERED: TIOTROPIUM INHALER/CAPSULE (SPIRIVA) INH SCH (08:00)
[2021-01-17] MEDS: SALMETEROL DISKUS 50MCG INHALER (SEREVENT) INH SCH (10:18)
--- NOTE | 2021-01-17 12:11 | DS.PDOC ---
Discharge Summary General Date of Admission Jan 16, 2021 at 13:35 Date of Discharge 01/17/2021 Attending Physician: NEW EDWARD MD Discharge Summary PROCEDURES PERFORMED DURING STAY: None ADMITTING DIAGNOSES: ESRD Fluid overload DISCHARGE DIAGNOSES: HFpEF exacerbation ESRD on HD Diabetes, that has resolved. Hypertension. COPD. Chronic atrial fibrillation and flutter. Secondary hyperparathyroidism. Chronic Anemia. History of obstructive sleep apnea. History of aortic sclerosis. Pulmonary hypertension. Hypothyroidism. History of fatty liver. Anxiety. Obesity COMPLICATIONS/CHIEF COMPLAINT: Esrd, Fluid Overload. HISTORY OF PRESENT ILLNESS: 65-year-old W with known history of ESRD on HD, Afib on full dose aspirin and no therapeutic anticoagulation, diabetes that has since resolved, hypertension, COPD and congestive heart failure who presented to the Emergency Room with acute dyspnea that worsens with exertion since shortly after outpatient HD the day prior to presentation during which she reported that it had to be cut short 2/2 hypotension and she received a 500cc fluid bolus for hemodynamic support. She was asymptomatic at the time, and reports that she often gets hypotensive during HD but her dyspnea began after return home and has persisted. She wears oxygen, mostly at night that she reports is for her COPD but I suspect may also have PRABHJOT given the nocturnal requirement and obesity. She otherwise denied a history of recent fever, chills, cough, travel, extremity swelling, chest pain, palpitations, nausea, emesis or abdominal pain. HOSPITAL COURSE: In the ED, she was mildly hypertensive, in Afib with mild RVR i/s/o of not having taken her metoprolol this morning, that she was given with good effect and stable on room air but hypoxemic with exertion and so was placed on 2L NC. Evaluation showed WBC of 5.9, Hgb 10.9 at her recent baseline, platelets 108 at her recent baseline, proBNP 83198, Cr 6.21, Na 139, K 4.8, troponin <0.02 and EKG with no ST changes with Afib and RVR. She had a CTA that showed diffuse increased interstitial markings with thickening of interlobular septae, consistent with mild diffuse interstitial edema and mild bilateral pleural effusions without a noted PE. She was admitted to medicine with nephrology consult for volume optimization by HD. She underwent dialysis with improvement in her symptoms and is now being discharged home and will follow up with nephrology per HD schedule and PCP within 1 week of hospital discharge. Her course was otherwise unremarkable. DISCHARGE MEDICATIONS: Please see below. ALLERGIES: Please see below. PHYSICAL EXAMINATION ON DISCHARGE: VITAL SIGNS: Please see below. General: NAD, on 2L NC Head: NCAT Eyes: EOMI, anicteric, no injection, PERRLA ENT: MMM, nasal canula in place Neck: supple, no adenopathy, difficult to assess for JVD due to habitus Pulm: Fine crackles heard to posterior mid lungs from the bases, otherwise moving air well, no wheezing or rhonchi Cardiac: Irregularly irregular, mild tachycardia, no noted murmurs Abd: Obese, normoactive sounds, soft, NTND Ext: WWP, no LE edema Neuro: AOx3, clear speech, CN3-12 intact, grossly nonfocal LABORATORY DATA: Please see below. IMAGING: CXR: The technique utilized in obtaining the radiograph has magnified the cardiac silhouette and accentuated the interstitial markings. The superior mediastinal structures are midline. The cardiac silhouette is mildly enlarged but accentuated by technique status quo. The diaphragmatic surfaces of lungs are regular, and the costophrenic angles are clear. The pulmonary spencer are clear. The imaged osseous structures are intact. IMPRESSION: There is no acute cardiopulmonary disease. CTA chest: Lungs: There are diffuse increased interstitial markings with thickening of interlobular septae, consistent with mild diffuse interstitial edema/infiltrate. There are mild patchy areas of atelectasis/infiltrate in each lung base. Mediastinum: No adenopathy. Pulmonary arteries: No evidence of pulmonary embolism. Davida: No adenopathy. Axilla: No adenopathy. Pleura: There are very small bilateral pleural effusions. Heart: Slightly enlarged. Thoracic aorta: No aneurysm or dissection. Upper abdominal structures: There are few calcified granulomas in the spleen. The 1.5 cm cyst in the upper pole the left kidney. Visualized osseous structures: There are mild degenerative changes of the spine without compression deformity. IMPRESSION: No CT evidence of pulmonary embolism. Findings most consistent with mild diffuse interstitial edema with mild patchy bibasilar atelectasis/infiltrate and very small bilateral pleural effusions. PROGNOSIS: Good ACTIVITY: As tolerated DIET: Renal DISCHARGE PLAN: Home with close nephrology and PCP follow up DISPOSITION: Home DISCHARGE INSTRUCTIONS: Home with close nephrology and PCP follow up ITEMS TO FOLLOWUP ON ON OUTPATIENT: ESRD on HD CHF DISCHARGE CONDITION: Stable TIME SPENT ON DISCHARGE: 46 minutes. Vital Signs/I&Os Vital Signs Date Time Temp Pulse Resp B/P (MAP) Pulse Ox O2 Delivery O2 Flow Rate FiO2 01/17/21 07:45 2.0 01/17/21 07:33 132 120/76 01/17/21 06:00 97.7 18 97 Nasal Cannula I&O- Last 24 Hours up to 6 AM 01/17/21 06:00 Intake Total 300 ml Output Total 1650 ml Balance -1350 ml Laboratory Data Labs 24H Laboratory Tests 2 01/16/21 12:24: Coronavirus (COVID-19)(PCR) NEGATIVE, Influenza Type A (RT-PCR) NEGATIVE, Infl uenza Type B (RT-PCR) NEGATIVE, Respiratory Syncytial Virus (PCR) NEGATIVE 01/17/21 06:13: Nucleated Red Blood Cells % (auto) 0.0, Anion Gap 5L, Glomerular Filtration Rate 9.2L, Calcium Level 8.9, Magnesium Level 1.9 CBC/BMP Laboratory Tests 01/17/21 06:13 Discharge Medications Scheduled Aspirin (Aspirin) 325 Mg Tab, 325 MG PO DAILY, (Reported) Cholecalciferol (Vitamin D3) (Vitamin D3) 1,250 Mcg Capsule, 1,250 MCG PO Q2WK, (Reported) EVERY OTHER THURSDAY Cyclobenzaprine HCl (Cyclobenzaprine HCl) 5 Mg Tablet, 5 MG PO QHS, (Reported) Diazepam (Diazepam) 2 Mg Tablet, 4 MG PO QHS, (Reported) Folic Acid/Vit B Complex and C (Kyra-Mirella Tablet) 1 Tab Tab, 1 TAB PO DAILY, (Reported) Levothyroxine Sodium (Levothyroxine Sodium) 75 Mcg Tab, 75 MCG PO DAILY, (Reported) Metoprolol Tartrate (Metoprolol Tartrate) 50 Mg Tablet, 50 MG PO BID, (Reported) SKIPS EVENING DOSE DAY BEFORE DIALYSIS (//THU) Omeprazole (Omeprazole) 40 Mg Cap, 40 MG PO DAILY, (Reported) Rosuvastatin Calcium (Crestor) 20 Mg Tab, 20 MG PO QHS, (Reported) Sucroferric Oxyhydroxide (Velphoro) 500 Mg Tab.chew, 500 MG PO WM, (Reported) Trazodone HCl (Trazodone HCl) 100 Mg Tab, 100 MG PO QHS, (Reported) Umeclidinium Brm/Vilanterol Tr (Anoro Ellipta 62.5-25 Mcg INH) 1 Each Blst.w.dev, 1 PUFF PO DAILY, (Reported) Scheduled PRN Acetaminophen (Acetaminophen) 325 Mg Tablet, 650 MG PO QID PRN for PAIN LEVEL 1- 5, (Reported) Cyclobenzaprine HCl (Cyclobenzaprine HCl) 5 Mg Tab, 5 MG PO BID PRN for MUSCLE SPASMS, (Reported) Diazepam (Diazepam) 2 Mg Tablet, 2 MG PO BID PRN for ANXIETY, (Reported) Fluticasone Propionate (Flonase Allergy Relief) 9.9 Ml Dexter.susp, 2 SPRAY NARES DAILY PRN for ALLERGIES, (Reported) Hydrocodone/Acetaminophen (Hydrocodone-Acetamin 5-325 mg) 1 Each Tablet, 1 TAB PO BID PRN for PAIN LEVEL 5-10, (Reported) Ondansetron HCl (Ondansetron HCl) 4 Mg Tablet, 4 MG PO TID PRN for NAUSEA OR VOMITING, (Reported) Polyethylene Glycol 3350 (Miralax) 119 Gm Powder, 17 GM PO DAILY PRN for CONSTIPATION, (Reported) dilute in 8 ounces of water or juice Allergies Coded Allergies: Quinolones (Verified Allergy, Severe, 08/03/19) gabapentin (Verified Adverse Reaction, Intermediate, HALLUCINATIONS, 01/16/21) NEW EDWARD MD Jan 17, 2021 12:11
--- NOTE | 2021-01-17 13:10 | CR ---
CONSULTATION DATE: 01/17/2021 CONSULTATION FOR: Dr. Shira M.D. REASON FOR CONSULTATION: Shortness of breath in this lady with end-stage renal disease. HISTORY OF PRESENT ILLNESS: Mrs. Carnes is a 65-year-old female with known history of type 2 diabetes, hypertension, atrial fibrillation, congestive heart failure, end-stage renal disease, and chronic obstructive pulmonary disease (COPD). She presented to emergency room in the morning of January 16 with shortness of breath. She was admitted with possible volume overload. It is important to note that patient did have her dialysis the day before her admission on January 15. She became hypotensive during dialysis and was given 500 mL of normal saline at the end. In any event, yesterday chest x-ray did show evidence of congestive heart failure, and patient was admitted. I did see her in the morning. MEDICAL HISTORY: Significant for: 1. History of type 2 diabetes, currently diet controlled. 2. Hypertension. 3. COPD. 4. Diastolic congestive heart failure. 5. Atrial fibrillation. 6. End-stage renal disease. 7. Secondary hyperparathyroidism. 8. History of obstructive sleep apnea. 9. Anemia. 10. History of pulmonary hypertension. 11. Hypothyroidism. 12. History of fatty liver. 13. Anxiety. 14. History of nephrolithiasis. 15. Obesity. 16. History of vertigo. SURGICAL HISTORY: Significant for: 1. section. 2. Lumbar discectomy. 3. Hysterectomy. 4. Ventriculostomy for an intracranial hemorrhage. 5. Ureteroscopy with left ureteral stent placement and removal for kidney stone. 6. Left arm arteriovenous (AV) fistula creation. PERSONAL AND SOCIAL HISTORY: Patient lives with her family and denies any smoking, drugs, or alcohol use. FAMILY HISTORY: Significant for diabetes, heart disease, and stroke. HOME MEDICATIONS: - aspirin 325 mg daily - vitamin D 50,000 units every 2 weeks - Flonase nasal spray for allergies as needed - multivitamin one tablet daily - levothyroxine 75 mcg daily - metoprolol 50 mg twice a day - omeprazole 40 mg daily - Crestor 20 mg at bedtime - Velphoro 500 mg three times a day - trazodone 100 mg at bedtime - Anoro Ellipta 62.5/25 mcg daily - She also uses oxycodone as needed for pain. - diazepam 2 mg as needed for anxiety - cyclobenzaprine 5 mg as needed for muscle spasms ALLERGIES: She has allergy to QUINOLONES. REVIEW OF SYSTEMS: Patient denies any fever or chills. She reports shortness of breath through the night and got worse in the morning when she came to emergency room. EARS, NOSE, AND THROAT: Unremarkable. CARDIOVASCULAR SYSTEM: Significant for history of congestive heart failure and atrial fibrillation and flutter. She has been quite short of breath through the night, and chest x-ray did show evidence for congestive heart failure and cardiomegaly. RESPIRATORY SYSTEM: Negative for cough or hemoptysis. GASTROINTESTINAL SYSTEM: Negative for vomiting or diarrhea. GENITOURINARY SYSTEM: Negative for dysuria or hematuria. MUSCULOSKELETAL SYSTEM: Significant for chronic back pain. She denies any lower extremity edema. PSYCHOSOCIAL SYSTEM: Significant for anxiety and insomnia. SKIN: Negative for rash or ulcers. NEUROLOGICAL SYSTEM: Negative for seizures. She has a remote history of intracranial hemorrhage and required ventriculostomy. PHYSICAL EXAMINATION: Temperature 98 degrees Fahrenheit, heart rate 114 per minute, respiratory rate 24 per minute, blood pressure 146/68 mmHg, and oxygen saturation in high 90s. She is using oxygen via nasal cannula. Head is atraumatic. Neck is supple, and jugular venous distention (JVD) is moderately elevated. Heart sounds are tachycardic and irregular in rhythm. Lungs with diminished breath sounds and mild expiratory wheezing. Abdomen obese, soft, nontender, and bowel sounds are normal. Extremities without any cyanosis or clubbing. Left arm AV fistula is patent. Neurologically she is awake, alert, and oriented times three. LABORATORY DATA: WBC count 5.9, hemoglobin 10.9, and hematocrit 34.8. Platelets 108. Sodium 139, potassium 4.8, BUN 30, creatinine 6.21. Calcium 8.8. Lactic acid 1.1. ProBNP level 26,445. Blood gas showed a pH of 7.35, and this is a venous blood gas. A pCO2 of 51.7 and pO2 of 54.8. Bicarbonate 26. Chest x-ray done in the emergency room showed mild cardiomegaly and pulmonary vascular congestion. She had a CT angiogram done, which was negative for any pulmonary embolus. Findings most consistent with mild diffuse interstitial edema. PROBLEMS: 1. Congestive heart failure/volume overload. Emergency dialysis has already been arranged, and we will try to remove about 1.5-2 liters of fluid today. Patient has very narrow window of shortness of breath or hypotension. She does not tolerate aggressive fluid removal and becomes hypotensive quickly. We will try to remove about 2 liters today and then consider further dialysis tomorrow. 2. End-stage renal disease. Patient did have her regular dialysis on January 15. We are going to perform 3-hour dialysis on January 16 and regular dialysis again on January 17. Her electrolytes are within normal range. 3. Hypertension. Blood pressure seems reasonably well controlled. She does get hypotensive during dialysis easily, and that is what happened on January 15, when she was given normal saline. In any event, at present her blood pressure seems to be controlled, and I will recommend to continue with her chronic dose of metoprolol. 4. Anemia. Her anemia is stable and does not need any urgent intervention. 5. Chronic obstructive pulmonary disease (COPD). She does have some evidence for COPD and might benefit from bronchodilator nebulizer. We will also anticipate improvement in her breathing after dialysis and fluid removal. Thank you for involving me in the care of Ms. Carnes. I will follow her along with you. %%CCLIST%%
--- NOTE | 2021-01-17 13:23 | IPN ---
PROGRESS NOTE DATE: 01/17/2021 SUBJECTIVE: Ms. Carnes is seen this morning during hemodialysis. She was dialyzed yesterday due to shortness of breath. She tolerated dialysis and fluid removal very well. She is feeling much better today and reports that she slept well through the night. She denies any fever, chills, nausea or vomiting. PHYSICAL EXAMINATION: VITALS: Temperature 97.7 degrees Fahrenheit, heart rate 116 per minute, respiratory rate 18 per minute, blood pressure 120/76 mmHg, oxygen saturation 97% on 2 liter oxygen. HEENT: Head is atraumatic. Neck supple and JVD not abnormally elevated now. LUNGS: Sound much better with good bilateral air entry. HEART: Sounds are irregular and tachycardic. ABDOMEN: Obese, soft and nontender. EXTREMITIES: Without any cyanosis or clubbing. NEUROLOGIC: She is at her baseline mentation, without a focal deficit. LAB STUDIES: Today's labs show sodium 133, potassium 4.3, BUN 19, creatinine 5.03. Hemoglobin 9.7, hematocrit 31, platelets 102,000. PROBLEMS: 1. Shortness of breath: Most likely related to volume overload and her symptoms have improved significantly. We removed 1.5 liters of fluid yesterday and removing another 1.5 liters today. She is tolerating it very well so far. 2. End-stage renal disease: Patient had an extra dialysis yesterday and today she is back on her regular schedule. She is being dialyzed for 3 hours today. Electrolytes are stable. 3. Anemia: Her anemia is stable and does not need any urgent intervention. She is not on any anticoagulation other than her regular aspirin. 4. Hyponatremia: Mild hyponatremia is related to end-stage renal disease and congestive heart failure. This will be corrected with dialysis, and does not need any other intervention. 5. Hypertension: Blood pressure very well controlled. Continue with chronic Metoprolol dose. DISPOSITION: From a renal standpoint, patient can be discharged to home today after dialysis. She will follow-up in the outpatient dialysis clinic.
[2021-01-17 14:00] VITALS: BP 123/72
== END 2021-01-17 16:30 | disposition home or self-care (01) ==
LOC: EDBD 08:58 → M ED 08:58 → M ED INP 13:35 → ENRESERV 14:08 → M MSPAV 15:22
PROVIDERS: ADMIT Internal Medicine; ATTEND Internal Medicine
DX: I50.33 Acute on chronic diastolic (congestive) heart failure (principal); N18.6 End stage renal disease; E87.70 Fluid overload, unspecified; I48.20 Chronic atrial fibrillation, unspecified; E21.1 Secondary hyperparathyroidism, not elsewhere classified; D64.9 Anemia, unspecified; I27.0 Primary pulmonary hypertension; E03.9 Hypothyroidism, unspecified; F41.9 Anxiety disorder, unspecified; G47.33 Obstructive sleep apnea (adult) (pediatric); E66.9 Obesity, unspecified; K76.0 Fatty (change of) liver, not elsewhere classified; J44.9 Chronic obstructive pulmonary disease, unspecified; G89.29 Other chronic pain; Z79.82 Long term (current) use of aspirin; Z79.899 Other long term (current) drug therapy; Z88.8 Allergy status to other drugs, medicaments and biological substances; K21.9 Gastro-esophageal reflux disease without esophagitis; E78.49 Other hyperlipidemia
CPT/HCPCS: 36415; 71045; 71275; 80048; 82550; 82553; 82803; 83605; 83735; 83880; 84484; 85025; 85027; 87631; 93005; 94640; 96372; 96374; 97161; 97165; 97530; 99285; G0257; G0378; J1644; J2765; Q9967

== ENCOUNTER 2021-03-20 00:22 | Emergency (ER) | payer MEDICARE, MEDICAID ==
[~2021-03-20] VITALS: Ht 154.9 cm; Wt 79.5 kg
[~2021-03-20 00:22] MED LIST changes: +ANOR1AER PO; +APAP325T4 PO; +CINA30TA5 PO; +ONDA-83 PO; +VELP5CHW PO; +VITA1CAP25 PO
[2021-03-20 00:23] VITALS: BP 103/65
== END 2021-03-20 01:45 | disposition left against medical advice (07) ==
LOC: M ED 00:22
DX: Z53.21 Procedure and treatment not carried out due to patient leaving prior to being seen by health care provider (principal)

== ENCOUNTER 2021-03-28 16:19 | Emergency (ER) | payer MEDICARE, MEDICAID ==
[~2021-03-28] VITALS: Ht 154.9 cm; Wt 78.8 kg
[2021-03-28] MEDS ORDERED: PERCOCET 5MG/325MG TAB PO ONE (17:15)
--- NOTE | 2021-03-28 17:17 | REP ---
INDICATION: fall injury. COMPARISON: None. TECHNIQUE: Four views of the right wrist are obtained. FINDINGS: The there is diffuse osteopenia. A transversely oriented distal metaphyseal fracture is seen in the radius. There is an associated ulnar styloid chip fracture. There is very slight impaction visible on the lateral radiograph. Associated soft tissue swelling is seen. Mild osteoarthritic spurring is seen at the [facility] articulation and at the IP joint of the thumb. IMPRESSION: Transversely oriented distal radial metaphyseal and ulnar styloid fractures. Diffuse osteoporosis. <Electronically signed by Bebeto Mauricio > 03/28/21 [id number]
--- NOTE | 2021-03-28 17:18 | REP ---
INDICATION: fall injury. COMPARISON: None. TECHNIQUE: AP and lateral views. FINDINGS: AP and lateral views of the right forearm demonstrate a distal radial metaphyseal fracture with slight impaction no displacement. There is an associated ulnar styloid chip fracture. Diffuse osteopenia is noted. No diaphyseal or proximal forearm fracture is seen. No opaque foreign body noted. IMPRESSION: Distal radial metaphyseal and ulnar styloid fractures. Osteoporosis. No other fracture seen. <Electronically signed by Bebeto Mauricio > 03/28/21 [id number]
--- NOTE | 2021-03-28 17:24 | REP ---
INDICATION: fall injury. COMPARISON: Comparison right knee radiographs January 26, 2019.. Comparison is made with CT findings of the right knee from January 26, 2019. TECHNIQUE: Five views of the right knee are provided. FINDINGS: Five views of the right knee demonstrate mottled radiolucency and sclerotic change in large area of the lateral femoral condyle unchanged from the comparison CT study and consistent with avascular necrosis of the lateral femoral condyle. There is fragmentation and some impaction of the posterolateral surface of the lateral femoral condyle but this appears to be unchanged from the CT as well. No traumatic fracture is seen. There is some fullness in the suprapatellar bursa region consistent with a joint effusion. There is patellar osteoarthritic spurring. Diffuse osteoporosis is noted. No opaque foreign body noted. 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 No traumatic fracture is seen. Probable small joint effusion. Diffuse osteoporosis. <Electronically signed by Bebeto Mauricio > 03/28/21 [id number]
--- NOTE | 2021-03-28 17:25 | REP ---
INDICATION: fall injury. COMPARISON: Comparison right shoulder radiographs June 29, 2017. TECHNIQUE: Two views of the right scapula are provided. FINDINGS: The right glenohumeral and acromioclavicular joints are normally aligned. The scapular body appears intact. No glenoid or scapular spine fracture is seen. Coracoid process is intact. No humeral or clavicular fracture is seen. IMPRESSION: No fracture or subluxation noted. <Electronically signed by Bebeto Mauricio > 03/28/21 [id number]
[2021-03-28 18:34] VITALS: BP 122/73
== END 2021-03-28 18:57 | disposition home or self-care (01) ==
LOC: M ED 16:19
DX: S59.201A Unspecified physeal fracture of lower end of radius, right arm, initial encounter for closed fracture (principal); S52.611A Displaced fracture of right ulna styloid process, initial encounter for closed fracture; M81.8 Other osteoporosis without current pathological fracture; M25.461 Effusion, right knee; W19.XXXA Unspecified fall, initial encounter; Y92.099 Unspecified place in other non-institutional residence as the place of occurrence of the external cause; Y93.9 Activity, unspecified; Y99.9 Unspecified external cause status; I48.91 Unspecified atrial fibrillation; I50.9 Heart failure, unspecified; I10 Essential (primary) hypertension; Z86.73 Personal history of transient ischemic attack (TIA), and cerebral infarction without residual deficits; K21.9 Gastro-esophageal reflux disease without esophagitis; N18.6 End stage renal disease; Z99.2 Dependence on renal dialysis; Z79.82 Long term (current) use of aspirin; Z79.899 Other long term (current) drug therapy; Z88.8 Allergy status to other drugs, medicaments and biological substances

== ENCOUNTER → 2021-04-03 | Outpatient (CLI) | payer MEDICARE, MEDICAID ==
--- NOTE | 2021-04-03 12:05 | REP ---
INDICATION: COLLES FX. COMPARISON: 03/28/2021. TECHNIQUE: Three views right wrist. FINDINGS: There are nondisplaced fractures of the distal radius and ulna, unchanged in position and alignment. An overlying cast obscures underlying osseous detail. IMPRESSION: Stable alignment of fractures of the distal radius and ulna. <Electronically signed by Scout King > 04/03/21 [id number]
== END ==
LOC: M SOG 10:35
PROVIDERS: ATTEND Orthopaedic Surgery
DX: S52.531A Colles' fracture of right radius, initial encounter for closed fracture (principal); X58.XXXA Exposure to other specified factors, initial encounter; Y92.9 Unspecified place or not applicable; Y93.9 Activity, unspecified; Y99.9 Unspecified external cause status

== ENCOUNTER 2021-04-16 03:01 | Emergency (ER) | payer MEDICARE, MEDICAID ==
[~2021-04-16] VITALS: Ht 152.4 cm; Wt 78.6 kg
[2021-04-16] MEDS ORDERED: NORCO, ANEXSIA 5/325MG TABLET (HYDROcodone/ACETAMINOPHEN) PO ONE (07:45)
--- NOTE | 2021-04-16 08:06 | REPVR ---
PROCEDURE INFORMATION: Exam: XR Left Wrist Exam date and time: 04/16/2021 6:52 AM Age: 65 years old Clinical indication: Pain; Wrist; Left; Additional info: Trauma TECHNIQUE: Imaging protocol: XR Left wrist. Views: 3 or more views. COMPARISON: None provided. FINDINGS: Bones/joints: No acute fracture or dislocation is identified. The bones appear osteopenic. The radiocarpal compartment is mildly narrowed. There is no osseous erosion or cortical destruction. Soft tissues: There is localized soft tissue prominence over the radial aspect of the distal forearm, where there are also multiple small coarse calcific densities, possibly a partially calcified mass. Multiple metallic radiodensities at and just beyond this level have the appearance of surgical clips. IMPRESSION: 1. No acute fracture or dislocation identified. 2. Apparent osteopenia. 3. Localized soft tissue prominence with possible partially calcified mass along the radial aspect of the distal forearm with what appear to be multiple surgical clips at and just beyond this level. Correlate as to any known pathology and prior surgery. Electronically signed by: Haider Rudolph On 04/16/2021 08:06:12 AM
[2021-04-16 08:30] VITALS: BP 145/77
== END 2021-04-16 08:53 | disposition home or self-care (01) ==
LOC: M ED 03:01
DX: S63.92XA Sprain of unspecified part of left wrist and hand, initial encounter (principal); W18.2XXA Fall in (into) shower or empty bathtub, initial encounter; Y92.89 Other specified places as the place of occurrence of the external cause; Y93.89 Activity, other specified; Y99.8 Other external cause status; N18.9 Chronic kidney disease, unspecified; I12.9 Hypertensive chronic kidney disease with stage 1 through stage 4 chronic kidney disease, or unspecified chronic kidney disease; J44.9 Chronic obstructive pulmonary disease, unspecified; E07.9 Disorder of thyroid, unspecified; E78.5 Hyperlipidemia, unspecified; I48.91 Unspecified atrial fibrillation; G47.33 Obstructive sleep apnea (adult) (pediatric); Z79.899 Other long term (current) drug therapy; Z79.890 Hormone replacement therapy; Z79.51 Long term (current) use of inhaled steroids; Z88.1 Allergy status to other antibiotic agents; Z88.8 Allergy status to other drugs, medicaments and biological substances

== ENCOUNTER → 2021-04-17 | Outpatient (CLI) | payer MEDICARE, MEDICAID ==
--- NOTE | 2021-04-23 08:41 | REP ---
INDICATION: RT WRIST FX. COMPARISON: Comparison study April 03, 2021. TECHNIQUE: Three views. X-rays in cast material. FINDINGS: Three views of the right wrist demonstrate a nondisplaced ulnar styloid chip fracture and a distal radial metaphyseal fracture nondisplaced. Fine bone detail is obscured. IMPRESSION: Healing distal radial and ulnar fractures. <Electronically signed by Bebeto Mauricio > 04/23/21 [id number]
== END ==
LOC: M SOG 09:50
PROVIDERS: ATTEND Orthopaedic Surgery
DX: S52.591D Other fractures of lower end of right radius, subsequent encounter for closed fracture with routine healing (principal); S52.611D Displaced fracture of right ulna styloid process, subsequent encounter for closed fracture with routine healing; X58.XXXD Exposure to other specified factors, subsequent encounter; Y92.9 Unspecified place or not applicable; Y93.9 Activity, unspecified; Y99.9 Unspecified external cause status

== ENCOUNTER → 2021-05-08 | Outpatient (CLI) | payer MEDICARE, MEDICAID ==
--- NOTE | 2021-05-08 10:18 | REP ---
INDICATION: RT WRIST FX. COMPARISON: 04/17/2021 TECHNIQUE: AP, lateral, oblique views of the right wrist FINDINGS: Transverse healing fracture through the distal radial metaphysis demonstrates callus formation. Mildly displaced ulnar styloid fracture again noted. Underlying age-related osteopenia and degenerative changes identified. IMPRESSION: Known fracture of the distal radius and ulnar styloid. <Electronically signed by Geovanni Scanlon > 05/08/21 [id number]
== END ==
LOC: M SOG 09:24
PROVIDERS: ATTEND Orthopaedic Surgery
DX: S52.591D Other fractures of lower end of right radius, subsequent encounter for closed fracture with routine healing (principal); X58.XXXD Exposure to other specified factors, subsequent encounter; Y92.9 Unspecified place or not applicable; Y93.9 Activity, unspecified; Y99.9 Unspecified external cause status

== ENCOUNTER → 2021-05-20 | Outpatient (CLI) | payer MEDICARE, MEDICAID ==
--- NOTE | 2021-05-20 15:17 | REP ---
INDICATION: RT WRIST FX. COMPARISON: 05/08/2021 TECHNIQUE: Three views FINDINGS: The previously described fractures are unchanged in alignment and position. There is no acute abnormality. IMPRESSION: No significant change compared to the prior exam <Electronically signed by Kodi Soler > 05/20/21 [id number]
== END ==
LOC: M SOG 14:16
PROVIDERS: ATTEND Orthopaedic Surgery
DX: S52.591D Other fractures of lower end of right radius, subsequent encounter for closed fracture with routine healing (principal); X58.XXXD Exposure to other specified factors, subsequent encounter; Y92.9 Unspecified place or not applicable; Y93.9 Activity, unspecified; Y99.9 Unspecified external cause status

== ENCOUNTER 2021-06-04 05:12 | Emergency (ER) | payer MEDICARE, MEDICAID ==
--- OUTSIDE RECORDS SUMMARY | 2021-06-04 05:18 | CCD ---
Author Author [facility] Organization [facility] Address Unknown Phone Unavailable Care Team Providers Care Health Equipment Servicer Name Role Phone Jackson Knott Unavailable PROBLEMS Type Condition ICD9-CM Code RPP98-VG Code Onset Dates Condition S tatus W/U Status Risk SNOMED Code Notes Problem Chronic diastolic heart failure I50.32 Active confi rmed 095270777 Problem Hypertensive chronic kidney disease, stage 5 chronic kidney disease or end stage renal disease I12.0 Active confirmed 645700 06 Problem Pulmonary emphysema, unspecified emphysema type J4 3.9 Active confirmed 20791225 Problem 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 0 Active confirmed 56163563 Problem Localized osteoarthritis of left knee M17.12 Ac tive confirmed 349119584 Problem Vitamin D deficiency E55.9 Active confirmed 93322607 Problem Pulmonary nodule R91.1 Active confirmed 309 489911 Problem Back pain, lumbosacral M54.5 Active confirmed 216232656 Problem Low back pain M54.5 Active confirmed 955066 007 Problem Chronic obstructive pulmonary disease J44.9 Ac tive confirmed 07656887 Problem Mucopurulent chronic bronchitis J41.1 Active confi rmed 49547801 Problem Sacroiliitis, not elsewhere classified M46.1 A ctive confirmed 562627206 Problem Other chronic pain G89.29 Active confirmed 8 1889569 Problem Mixed hyperlipidemia E78.2 Active confirmed 815331729 Problem Pneumonia due to infectious organism, unspecified laterality, unspecified part of lung J18.9 Active confirmed 68322 2009 Problem DM renal manif type II E11.29 Active confirmed 31504362 Problem Cervical spondylolysis M43.02 Active confirmed 635788867 Problem Chronic kidney disease, stage V N18.5 Active confi rmed 310309956 Problem 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 Active confirme d 497339540 Problem Atrial flutter I48.92 Active confirmed 15424 00 Problem COPD exacerbation J44.1 Active confirmed 19 2385173 Problem Esophageal reflux K21.9 Active confirmed 23 2991306 Problem Myalgia M79.1 Active confirmed 98482752 Problem Renal dialysis status Z99.2 Active confirmed 356090602 Problem Kidney stone N20.0 Active confirmed 1996109 7 Problem Constipation, unspecified constipation type K59.00 Active confirmed 53826513 Problem Osteoarthritis of both knees, unspecified osteoarthritis t ype M17.0 Active confirmed 393288326 Problem Thyroid nodule E04.1 Active confirmed 05441 5005 Problem Spondylosis without myelopathy or radiculopathy, lumbosacral region M47.817 Active confirmed 27811536 Problem DM w/o complication type II E11.9 Active confirmed 095433890 Problem Avascular necrosis of medial 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 Active confirmed 789652063 Problem Chronic kidney disease, unspecified N18.9 Acti ve confirmed 534161134 Problem Anxiety state F41.1 Active confirmed 949206 003 Problem LAYNE (nonalcoholic steatohepatitis) K75.81 Acti ve confirmed 121319800 Problem Spondylosis without myelopathy or radiculopathy, lumbar region M47.816 Active confirmed 13555932 Problem Hypoxemia R09.02 Active confirmed 379262397 Problem Pulmonary nodule, left R91.1 Active confirmed 836657677 Problem Frequent falls R29.6 Active confirmed 10726 2002 Problem Hyperparathyroidism E21.3 Active confirmed 52801130 Problem Chronic atrial fibrillation I48.2 Active confirmed 081512730 Problem Hypocalcemia E83.51 Active confirmed 1541206 ALLERGIES Allergen (clinical drug ingredient) Drug/Non Drug Allergy do cumented on EMR Reaction Allergy Type Onset Date Status gatifloxacin Gatifloxacin([facility] Code:[address]-58) Anaphylaxis Drug Al lergy Active tequin Anaphylaxis Non Drug Allergy Active azithromycin Azithromycin([facility] Code:[address]-93) dys pnea, face and lips swelling and tingling - seen in the ER 07/2016 Drug Allergy Active ENCOUNTERS from 1955 to 2021-05-21 Encounter Location Date Provider Diagnosis [place] [id number] [facility] [phone] [place] [address] Apr, Jackson Knott IMMUNIZATIONS Vaccine Route Administration Date Status Pneumococcal 0.5mL Prevnar 13 IM Intramuscular May 17, 2014 A dministered TDAP IM Intramuscular Apr 27, 2013 Administered Pneumococcal Adult 0.5mL Pneumovax 23 Unknown May 17 14 Pending Pneumococcal Adult 0.5mL Pneumovax 23 Unknown Apr 26 08 Administered Influenza 6mo & up Fluzone Unknown May 07, 2016 Admin istered Influenza 6mo & up Fluzone Unknown Jun 26, 2015 Admin istered Zoster 50mcg/0.5mL Shingrix IM Intramuscular Aug 15, 2019 Adm inistered Influenza 6mo & up Fluzone Unknown May 01, 2013 Admin istered Influenza 6mo & up Fluzone Unknown May 21, 2011 Admin istered Influenza 6mo & up Fluzone IM Intramuscular May 02, 2010 Admi nistered SOCIAL HISTORY Tobacco Use: Social History Observation Description Date Details (start date - stop date) Former Smoker Sex Assigned At : Social History Observation Description Sex Assigned At Unknown Education: Question Answer Notes Level of Education: Finished High School Language: Question Answer Notes Languages spoken: Turkmen Confucianism: Question Answer Notes Confucianism 21 Mandaeism No mu-ism beliefs that would impact health care. Sexual [...] Notes Start Da te End Date Status diazePAM 2 MG 2 tablet as needed Orally bid as needed, MDD 8 m g for 28 day(s) Apr, Active Metoprolol Tartrate 50 MG 1 tablet with food Orally Twice a day for 30 days Jul, Active Kyra-Mirella Rx 1 MG 1 tablet Orally Once a day for 30 day(s) Unknown HYDROcodone-Acetaminophen 5-325 MG 1 tablet as needed Orally twice daily as needed;MDD:2 for 28 days November, Active Estrace 0.1 MG/GM 4gm daily x 2 weeks, then 2g m daily x 2 weeks, then 1gm tiw Vaginal as directed for 28 day(s) Apr, Unknown OneTouch Verio - verio flex In Vitro twice a day and as needed (ICD E11.29) for 90 days Aug, Unknown Senna S 8.6-50 MG 1 tablet in the evening as n eeded Orally twice daily as needed Unknown Stiolto Respimat 2.5-2.5 MCG/ACT 2 puffs Inhalation Once a day Unknown Sodium Polystyrene Sulfonate 15 GM/60ML 60 ml Orally O nce a day only if told by dymarzena Unknown Oxygen as directed concentrator Daily for 99 days 2018 Unknown Aspirin 325 MG 1 tablet Orally Once a day 1017-17 am Unknown traMADol HCl 50 MG 1 tablet as needed Orally ev marcela 6 hours for moderate pain (ps 5-7) MDD 4 tabs Unknown Physical Therapy evaluate and treat as directed DX: R2 9.898, on renal dialysis, pending kidney transplant, DM, 1-3X/week for 1 month May, 7 Unknown Omeprazole 40 MG 1 capsule Orally Once a day for 90 day(s) Mar, Active Shower Chair without wheels with back Dx: I50.23, N15. 5, Z99.2 Daily Use for 999 days Ht: 62 in. Wt: 176.8 lb; Medicare # [id number] Medicaid #: [id number] Unknown Flexeril 5 1 tab orally three times daily as needed for 30 Days Active Crestor 20 mg 1 tablet Orally at bedtime for 90 day(s) Active One Touch Delica 33 gauge testing twice a day and as n eeded ICD E11.29 for 90 days Aug, Active Cyclobenzaprine HCl 5 MG TAKE ONE TABLET BY MOUTH THR EE TIMES A DAY NEEDED for 30 Active Nebulizer/Tubing/Mouthpiece 1 1 tab(s) 327.23 daily as needed fo r 30 day(s) Feb, Unknown Sensipar 30 MG 1 tablet Orally twice a week, MON, FRI week ago Unknown HYDROcodone-Acetaminophen 5-325 MG 1 tablet as needed Orally twice daily as needed;MDD=2 for 28 days Sep, Active Ammonium Lactate 12 % 1 application to affected ar ea Externally Twice a day to feet Unknown Glucometer (Verio IQ) 1 250 vitro Twice a day for 30 day(s) Dec, Unknown Lantus 100 UNIT/ML 10 units Subcutaneous at bed time if needed/ DX : E11.9 for 30 days Unknown Velphoro 500 MG 1 tablet with meals Orally three times daily Unknown oxyCODONE-Acetaminophen 5-325 MG 1 tablet as needed Or ally every 8 hrs for severe pain (ps 8-10) MDD 3 tabs for 28 day(s) Feb, Not-Taking Insulin Pen Needle 29G X 12MM DX : E11.29 subcutaneously daily f or 90 day(s) Unknown Drisdol 50,000 units 1 tab oral every other week week ago Unknown Anoro Ellipta 62.5-25 MCG/INH 1 puff Inhalation Once a day Unknown Zofran 4 MG 1 tab(s) Orally every eight hours as needed for 15 days Unknown HYDROcodone-Acetaminophen 5-325 MG 1 tab Orally twice daily as needed MDD 2 for 28 days Oct, Not-Taking Renagel 800 MG 3 tablet with meals Orally Three times a day 05-12-172099 Unknown Calcium Carbonate 200 MG 2 tablets Orally two tablets with breakfast and one tablet with dinner Unknown Tiotropium [place]-Olodaterol 2.5-2.5 MCG/ACT 2 puffs Inhalation On ce a day Unknown Levothyroxine Sodium 75 MCG 1 tablet on an empty stoma ch in the morning Orally Once a day 05-13-17 0800 Unknown Calcitriol 0.25 MCG 2 capsules Orally Once a day Dose change Jul, Unknown May Have RECEIVES HEPARIN AT DIALYSIS Unknown MiraLax 1 1 packet mixed with 8 ounces of fluid Orally once jose y as needed Unknown Trazodone HCl 100 mg 1 tablet at bedtime Orally at bedtime for 30 day s Active Meclizine HCl 25 mg 1 tablet as needed Orally every 8 hours as n eeded Dec, Unknown PROCEDURES No Information RESULTS No Results REASON FOR VISIT crestor MEDICAL (GENERAL) HISTORY Type Description Date Medical History DM II with nephropathy, goal HBA1c < 7.5 Medical History Stage V CKD (on dialysis with [facility]) Medical History atrial flutter (no anticoagu lation b/c of bleed - managed by Dae). Medical History h/o intraventricular bleed r elated to Coumadin ([facility]) 06/03- Previously followed by Dr Short Medical History HTN/HHD Medical History chronic diastolic heart fail ure (grade 1) - last echocardiogram [facility] 11/2016 Medical History COPD- [facility] Pul: Alicia Savici Medical History secondary hyperparathyroidism Medical History anemia of chronic disease Medical History anxiety Medical History obesity Medical History PRABHJOT (intolerant of BiPAP)- [facility] Medical History Ragadenosine Nuclear Stress @ [facility] 11/2016 - probably normal, no ischemia [...] History Vocal cord dysfunction- referred to ENT [facility] 09/10 Medical History diffuse fibrofatty infiltration liver. Medical History Arthritis Medical History Back pain/Neck pain- [facility] Medical History MRSA 2007 [facility] Medical History KIDNEY STONE Surgical History c-sections 19771985 Surgical History lumbar discectomy 1990 Surgical History breast bx - fibrocystic 04/2000 Surgical History colonoscopy 2001 Surgical History hysterectomy ([facility]) - done for heavy bleeding 2002 Surgical History nasal cautery ([facility]) 2002 Surgical History "eye procedure" ([facility] [place]) 2002 Surgical History ventriculostomy ([facility]) 07/03 Surgical History [facility] ) Surgical History FNA thyroid nodule- Dr Smith 08/09 Surgical History Colonoscopy 04/24/14 - [place] Surgical History 4 teeth pulled -01/2017 Surgical History Ureteroscopy (left) with stent placement 06/2018 Surgical History Cystoscopy with L stent removal 9 Hospitalization History interventricular bleed ([facility]) 200 8 [facility] History weakness/back pain 03/2010 Hospitalization History Lower Abd Pain/constipation ([facility]) Hospitalization History pneumonia 07/25-07/31/16 Hospitalization History Influenza 10/20/2017 Hospitalization History acute diverticulitus 08/01/2018-07/27 Hospitalization History dizzyness 11/2018 Hospitalization History Shortness of breath - A[facility] 01/2019 Hospitalization History Dizziness ([facility]) 07/2019 Goals Section No Information Health Concerns No Information MEDICAL EQUIPMENT No Information MENTAL STATUS No Information FUNCTIONAL STATUS No Information ASSESSMENTS No Information PLAN OF TREATMENT Medication Medication Name Sig Start Date Stop Date diazePAM 2 MG 2 tablet as needed Orally bid as needed, MDD 8 mg for 28 day(s) Apr, Trazodone HCl 100 mg 1 tablet at bedtime Orally at bedtime for 3 0 days HYDROcodone-Acetaminophen 5-325 MG 1 tablet as needed Orally twice daily as needed;MDD:2 for 28 days November, Crestor 20 mg 1 tablet Orally at bedtime for 90 day(s) Omeprazole 40 MG 1 capsule Orally Once a day for 90 day(s) 2017 Next Appt Details Provider Name:Aiden Nieves, 2020-11-0 5 01:15:00 PM, [address] [facility], , [place], [address], Insurance Providers Payer Name Payer Address Payer Phone Insured Name Patient Relati onship to Insured Coverage Start Date Coverage End Date MEDICARE Part A and B [address] [facility] [phone] JOSE ROGERS self MEDICAID [employer] [address] [place] [address] JOSE ROGERS self
--- OUTSIDE RECORDS SUMMARY | 2021-06-04 05:18 | CCD ---
Author Author [facility] Organization [facility] Address Unknown Phone Unavailable Care Team Providers Care Evp General Counsel Name Role Phone Aiden Nieves Unavailable PROBLEMS Type Condition ICD9-CM Code FLO53-TU Code Onset Dates Condition S tatus W/U Status Risk SNOMED Code Notes Problem Chronic diastolic heart failure I50.32 Active confi rmed 420710858 Problem Hypertensive chronic kidney disease, stage 5 chronic kidney disease or end stage renal disease I12.0 Active confirmed 419427 06 Problem Pulmonary emphysema, unspecified emphysema type J4 3.9 Active confirmed 45094179 Problem 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 0 Active confirmed 48036970 Problem Localized osteoarthritis of left knee M17.12 Ac tive confirmed 684271124 Problem Vitamin D deficiency E55.9 Active confirmed 61107587 Problem Pulmonary nodule R91.1 Active confirmed 309 830211 Problem Back pain, lumbosacral M54.5 Active confirmed 671554721 Problem Low back pain M54.5 Active confirmed 752170 007 Problem Chronic obstructive pulmonary disease J44.9 Ac tive confirmed 60014781 Problem Mucopurulent chronic bronchitis J41.1 Active confi rmed 32588936 Problem Sacroiliitis, not elsewhere classified M46.1 A ctive confirmed 525324341 Problem Other chronic pain G89.29 Active confirmed 8 2964460 Problem Mixed hyperlipidemia E78.2 Active confirmed 665887774 Problem Pneumonia due to infectious organism, unspecified laterality, unspecified part of lung J18.9 Active confirmed 55289 2009 Problem DM renal manif type II E11.29 Active confirmed 22326192 Problem Cervical spondylolysis M43.02 Active confirmed 776452352 Problem Chronic kidney disease, stage V N18.5 Active confi rmed 060251576 Problem 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 Active confirme d 371785854 Problem Atrial flutter I48.92 Active confirmed 58581 00 Problem COPD exacerbation J44.1 Active confirmed 19 1785642 Problem Esophageal reflux K21.9 Active confirmed 23 7124991 Problem Myalgia M79.1 Active confirmed 46778387 Problem Renal dialysis status Z99.2 Active confirmed 761383126 Problem Kidney stone N20.0 Active confirmed 2645685 7 Problem Constipation, unspecified constipation type K59.00 Active confirmed 44923934 Problem Osteoarthritis of both knees, unspecified osteoarthritis t ype M17.0 Active confirmed 646095924 Problem Thyroid nodule E04.1 Active confirmed 04324 5005 Problem Spondylosis without myelopathy or radiculopathy, lumbosacral region M47.817 Active confirmed 42308533 Problem DM w/o complication type II E11.9 Active confirmed 685509444 Problem Avascular necrosis of medial 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 Active confirmed 237982301 Problem Chronic kidney disease, unspecified N18.9 Acti ve confirmed 249262725 Problem Anxiety state F41.1 Active confirmed 538450 003 Problem LAYNE (nonalcoholic steatohepatitis) K75.81 Acti ve confirmed 534851951 Problem Spondylosis without myelopathy or radiculopathy, lumbar region M47.816 Active confirmed 60838016 Problem Hypoxemia R09.02 Active confirmed 964969619 Problem Pulmonary nodule, left R91.1 Active confirmed 911060323 Problem Frequent falls R29.6 Active confirmed 73456 2002 Problem Hyperparathyroidism E21.3 Active confirmed 82424773 Problem Chronic atrial fibrillation I48.2 Active confirmed 184326842 Problem Hypocalcemia E83.51 Active confirmed 8288836 ALLERGIES Allergen (clinical drug ingredient) Drug/Non Drug Allergy do cumented on EMR Reaction Allergy Type Onset Date Status gatifloxacin Gatifloxacin([facility] Code:[address]-66) Anaphylaxis Drug Al lergy Active tequin Anaphylaxis Non Drug Allergy Active azithromycin Azithromycin([facility] Code:[address]-54) dys pnea, face and lips swelling and tingling - seen in the ER 07/2016 Drug Allergy Active ENCOUNTERS from 1955 to 2021-05-21 Encounter Location Date Provider Diagnosis [place] [address] [facility] [phone] [place] [address] Apr, Aiden Nieves IMMUNIZATIONS Vaccine Route Administration Date Status Pneumococcal Adult 0.5mL Pneumovax 23 Unknown May 17 14 Pending Pneumococcal Adult 0.5mL Pneumovax 23 Unknown Apr 26 08 Administered TDAP IM Intramuscular Apr 27, 2013 Administered Pneumococcal 0.5mL Prevnar 13 IM Intramuscular May 17, 2014 A dministered Influenza 6mo & up Fluzone Unknown May [...] School Language: Question Answer Notes Languages spoken: Macedonian Tenriism: Question Answer Notes Tenriism 21 Adventism No baptism beliefs that would impact health care. Sexual [...] Notes Start Da te End Date Status Estrace 0.1 MG/GM 4gm daily x 2 [...] eeded Orally twice daily as needed Unknown MiraLax 1 1 packet mixed with 8 ounces of fluid Orally once jose y as needed Unknown Calcium Carbonate 200 MG 2 tablets Orally two tablets with breakfast and one tablet with dinner Unknown Zofran 4 MG 1 tab(s) Orally every eight hours as needed for 15 days Unknown HYDROcodone-Acetaminophen 5-325 MG 1 tab Orally twice daily as needed MDD 2 for 28 days Oct, Not-Taking Aspirin 325 MG 1 tablet Orally Once a day 10-17-17 am Unknown traMADol HCl 50 MG 1 tablet as needed Orally ev marcela 6 hours for moderate pain (ps 5-7) MDD 4 tabs Unknown Physical Therapy evaluate and treat as directed DX: R2 9.898, on renal dialysis, pending kidney transplant, DM, 1-3X/week for 1 month May, 7 Unknown diazePAM 2 MG 2 tablet as needed Orally bid as needed, MDD 8 m g for 28 day(s) Apr, Active Metoprolol Tartrate 50 MG 1 tablet with food Orally Twice a day for 30 days Jul, Active Kyra-Mirella Rx 1 MG 1 tablet Orally Once a day for 30 day(s) Unknown Omeprazole 40 MG 1 capsule Orally Once a day for 90 day(s) Mar, Active One Touch Delica 33 gauge testing twice a day and as n eeded ICD E11.29 for 90 days Aug, Active Cyclobenzaprine HCl 5 MG TAKE ONE TABLET BY MOUTH THR EE TIMES A DAY NEEDED for 30 Active Stiolto Respimat 2.5-2.5 MCG/ACT 2 puffs Inhalation Once a day Unknown Sodium Polystyrene Sulfonate 15 GM/60ML 60 ml Orally O nce a day only if told by thuis Unknown Oxygen as directed concentrator Daily for 99 days 21 2018 Unknown HYDROcodone-Acetaminophen 5-325 MG 1 tablet as needed Orally twice daily as needed;MDD=2 for 28 days Sep, Active Shower Chair without wheels with back Dx: I50.23, N15. 5, Z99.2 Daily Use for 999 days Ht: 62 in. Wt: 176.8 lb; Medicare # [id number] Medicaid #: [id number] Unknown Flexeril 5 1 tab orally three times daily as needed for 30 Days Active Glucometer (Verio IQ) 1 250 vitro Twice a day for 30 day(s) Dec, Unknown Tiotropium [place]-Olodaterol 2.5-2.5 MCG/ACT 2 puffs Inhalation On a day Unknown HYDROcodone-Acetaminophen 5-325 MG 1 tablet as needed Orally twice daily as needed;MDD:2 for 28 days Apr, Active Drisdol 50,000 units 1 tab oral every other week week ago Unknown Anoro Ellipta 62.5-25 MCG/INH 1 puff Inhalation Once a day Unknown Renagel 800 MG 3 tablet with meals Orally Three times a day 05-12-172099 Unknown Ammonium Lactate 12 % 1 application to affected ar ea Externally Twice a day to feet Unknown Crestor 20 mg 1 tablet Orally at bedtime for 90 day(s) Active oxyCODONE-Acetaminophen 5-325 MG 1 tablet as needed Or ally every 8 hrs for severe pain (ps 8-10) MDD 3 tabs for 28 day(s) Feb, Not-Taking Sensipar 30 MG 1 tablet Orally twice a week, MON, FRI week ago Unknown Lantus 100 UNIT/ML 10 units Subcutaneous at bed time if needed/ DX : E11.9 for 30 days Unknown Velphoro 500 MG 1 tablet with meals Orally three times daily Unknown Insulin Pen Needle 29G X 12MM DX : E11.29 subcutaneously daily f or 90 day(s) Unknown Levothyroxine Sodium 75 MCG 1 tablet on an empty stoma ch in the morning Orally Once a day 05-13- 0800 Unknown Calcitriol 0.25 MCG 2 capsules Orally Once a day Dose change Jul, Unknown May Have RECEIVES HEPARIN AT DIALYSIS Unknown Nebulizer/Tubing/Mouthpiece 1 1 tab(s) 327.23 daily as needed fo r 30 day(s) Feb, Unknown Trazodone HCl 100 mg 1 tablet at bedtime Orally at bedtime for 30 day s Active Meclizine HCl 25 mg 1 tablet as needed Orally every 8 hours as n eeded Dec, Unknown PROCEDURES No Information RESULTS No Results REASON FOR VISIT Refill- hydrocodone-acetaminophen MEDICAL (GENERAL) HISTORY Type Description Date Medical History DM II with nephropathy, goal HBA1c < 7.5 Medical History Stage V CKD (on dialysis with [facility]) Medical History atrial flutter (no anticoagu lation b/c of bleed - managed by Dae). Medical History h/o intraventricular bleed r elated to Coumadin ([facility]) 06/03- Previously followed by Dr Short Medical History HTN/HHD Medical History chronic diastolic heart fail ure (grade 1) - last echocardiogram [facility] 11/2016 Medical History COPD- [facility] Pul: Alicia Savici Medical History secondary hyperparathyroidism Medical History anemia of chronic disease Medical History anxiety Medical History obesity Medical History PRABHJOT (intolerant of BiPAP)- [facility] Medical History Ragadenosine Nuclear Stress @ [facility] 11/2016 - probably normal, no ischemia [...] History Vocal cord dysfunction- referred to ENT [facility] 09/10 Medical History diffuse fibrofatty infiltration liver. Medical History Arthritis Medical History Back pain/Neck pain- [facility] Medical History MRSA 2007 [facility] Medical History KIDNEY STONE Surgical History c-sections 1977, 1985 Surgical History lumbar discectomy 1979, 1990 Surgical History breast bx - fibrocystic 04/2000 Surgical History colonoscopy 2001 Surgical History hysterectomy ([facility]) - done for heavy bleeding 2002 Surgical History nasal cautery ([facility]) 2002 Surgical History "eye procedure" ([facility] [place]) 2002 Surgical History ventriculostomy ([facility]) 07/03 Surgical History Fistula for dialysis ([facility] ) Surgical History FNA thyroid nodule- Dr Smith 08/09 Surgical History Colonoscopy 04/24/14 - [place] Surgical History 4 teeth pulled -01/2017 Surgical History Ureteroscopy (left) with stent placement 06/2018 Surgical History Cystoscopy with L stent removal 9 Hospitalization History interventricular bleed ([facility]) 200 8 [facility] Hospitalization History weakness/back pain 03/2010 Hospitalization History Lower Abd Pain/constipation ([facility]) Hospitalization History pneumonia 07/25-07/31/16 Hospitalization History Influenza 10/20/2017 Hospitalization History acute diverticulitus 08/01/2018-07/27 Hospitalization History dizzyness 11/2018 Hospitalization History Shortness of breath - AMA 01/2019 Hospitalization History Dizziness ([facility]) 07/2019 Goals Section No Information Health Concerns No Information MEDICAL EQUIPMENT No Information MENTAL STATUS No Information FUNCTIONAL STATUS No Information ASSESSMENTS No Information PLAN OF TREATMENT Medication Medication Name Sig Start Date Stop Date HYDROcodone-Acetaminophen 5-325 MG 1 tablet as needed Orally twice daily as needed;MDD:2 for 28 days Apr, Trazodone HCl 100 mg 1 tablet at bedtime Orally at bedtime for 3 0 days Crestor 20 mg 1 tablet Orally at bedtime for 90 day(s) diazePAM 2 MG 2 tablet as needed Orally bid as needed, MDD 8 mg for 28 day(s) Apr, Omeprazole 40 MG 1 capsule Orally Once a day for 90 day(s) 2017 Next Appt Details Provider Name:Aiden Nieves, 2020-11-0 5 01:15:00 PM, [address] [facility], , [place], [address], Insurance Providers Payer Name Payer Address Payer Phone Insured Name Patient Relati onship to Insured Coverage Start Date Coverage End Date MEDICAID [employer] [address] [facility] [id number] JOSE ROGERS MEDICARE Part A and B [address] [facility] [phone] JOSE ROGERS self
--- OUTSIDE RECORDS SUMMARY | 2021-06-04 05:18 | CCD | Continuity of Care Document ---
Author Author Caro PENN DO Organization Unknown Address [address] [place] [address], [facility] [place] [address] Phone [phone] Care Team Providers Care Clerical Stock Inspector Name Role Phone AUTM Unavailable Aiden Nieves M.D. AUTM [phone] Problems Active Problems Provider Date Essential hypertension Onset: 12/17/2011 Screening for malignant neoplasm of colon David Brown MD Onset: 07/13/2013 Non-toxic multinodular goiter Ulysses Smith MD Onset: Head and neck swelling Ulysses Smith MD Onset: 09/12/2013 Difficulty breathing Onset: 11/26/2012 Obstructive sleep apnea syndrome Maryjo Sherman, A.N.P. Onset: 07/15/2010 Social History Type Date Description Comments Sex Unknown ETOH Use Denies alcohol use Tobacco Use Start: Unknown Non Smoker Recreational Drug Use Denies Drug Use Smoking Status Reviewed: 05/20/21 Non Smoker Allergies and adverse reactions Active Allergies Criticality Reaction | Severity Comments Date TeQuin Unable to assess criticality 12/29/2011 Quinolones Unable to assess criticality 04/03/2021 Gabapentin Unable to assess criticality 04/03/2021 Oxycodone Unable to assess criticality 04/03/2021 Medications Active Medications SIG Qnty Indications Ordering Provide r Date Vitamin D Unknown Crestor 20mg Tablets Unknown Trazodone HCL 100mg Tablets e very day Unknown Nephro-Vit Capsules po daily 30caps Unknown Omeprazole 40mg Capsules DR 1 po qd 30caps Unknown Kyra-Mirella Tablets po daily 90tabs Unknown Cyclobenzaprine HCL 5mg Tablets 1 tab by mouth three times a day as needed for muscle spasm 30tabs Unknown Crestor 10mg Tablets 1 po qd Unknown Hydrocodone/Acetaminophen 5-500mg Tablets prn Unknown Calcitriol 0.25mcg Capsules 1 po qd Unknown Diazepam 2mg Tablets Take 2 Tablets By Mouth Two Times A Day as Needed Max 8Tabs/Day Un known Anoro Ellipta 62.5-25mcg/Inh Aeros ol Inhale 1 puff By Mouth Into Lungs Once Daily Unk nown Levothyroxine Sodium 75mcg Tablets Bowen Bond D.OYonatan Velphoro 500mg Chewtabs Bowen Bond D.O. Cyclobenzaprine HCL 5mg Tablets Take One Tablet By Mouth Three Times A Day as Needed Unkn own Hydrocodone Bitartrate/Acetaminophen 5-325mg Tablets Take One Tablet By Mouth Two Times A Day as Needed Maximum Daily Dose 2 Tablet Unknown Immunizations Description No Information Available Vital Signs Date Vital Result Comment 05/20/2021 2:11pm Body Temperature 97.6 F 04/17/2021 9:21am Body Temperature 96.9 F Results Description No Information Available Procedures Date Code Description Status 05/08/2021 89028 Apply Splint Short Arm Static Co mpleted 04/17/2021 59597 Apply Cast Short Arm Completed 04/03/2021 84902 Office/Outpatient New Low MDM 30 -44 Minutes Completed 04/03/2021 42794 FX Distal Radius Closed Treatmen t W/Manipulation Completed Medical Devices Description No Information Available Encounters Type Date Location Provider Dx Diagnosis Office Visit 05/20/2021 2:20p [facility] Man Penn, DO S52.591D Oth fx of lower end r radius, subs for c los fx w [facility] Office Visit 05/08/2021 9:20a [facility] Man Penn, DO S52.591D Oth fx of lower end r radius, subs for c los fx w [facility] Office Visit 04/17/2021 9:20a [facility] Man Penn, DO S52.591D Oth fx of lower end r radius, subs for c los fx w routn heal S52.611D Disp fx of r ulna styloid pr o, subs for clos fx w routn heal Office Visit 04/03/2021 10:00a [facility] Celso DatMan, DO S52.591A Oth fractures of lower end of right radi us, init for clos fx S52.611A Disp fx of right ulna styloi d process, init for clos fx W01.0xxA Fall same lev from slip/trip w/o strike against object, init Assessments Date Code Description Provider 05/20/2021 S52.591D Other fractures of l ower end of right radius, subsequent encounter for closed fracture with routine healing Cesar Penn, 05/08/2021 S52.591D Other fractures of l ower end of right radius, subsequent encounter for closed fracture with routine healing Cesar Penn, 04/17/2021 S52.591D Other fractures of l ower end of right radius, subsequent encounter for closed fracture with routine healing Cesar Penn, 04/17/2021 S52.611D Displaced fracture o f right ulna styloid process, subsequent encounter for closed fracture with routine healing Cesar Penn, 04/03/2021 S52.591A Other fractures of l ower end of right radius, initial encounter for closed fracture Cesar Penn, 04/03/2021 S52.611A Displaced fracture o f right ulna styloid process, initial encounter for closed fracture Cesar Penn DO 04/03/2021 W01.0xxA Fall on same level f rom slipping, tripping and stumbling without subsequent striking against object, initial encounter Cesar Penn DO Plan of Treatment 05/20/2021 - Cesar Penn DO* S52.591D Other fractures of lower end of right radius, subsequent encounter for closed fracture with routine healing* Comments:* 1. Removable Velcro wrist splint 2 to 4 weeks2. Follow-up as needed Functional Status Description No Information Available Mental Status Description No Information Available Referrals Description No Information Available"
--- OUTSIDE RECORDS SUMMARY | 2021-06-04 05:19 | CCD | Continuity of Care Document ---
Author Author Caro PENN DO Organization Unknown Address [address] [place] [address], [facility] [place] [place] [address] Phone [phone] Care Team Providers Care Microbiology Lab Assistant Name Role Phone AUTM Unavailable Aiden Nieves M.D. AUTM [phone] Problems Active Problems Provider Date Essential hypertension Onset: 12/17/2011 Screening for malignant neoplasm of colon David Brown MD Onset: 07/13/2013 Non-toxic multinodular goiter Ulysses Smith MD Onset: Head and neck swelling Ulysses mSith MD Onset: 09/12/2013 Difficulty breathing Onset: 11/26/2012 Obstructive sleep apnea syndrome Maryjo Sherman, A.N.P. Onset: 07/15/2010 Social History Type Date Description Comments Sex Unknown ETOH Use Denies alcohol use Tobacco Use Start: Unknown Non Smoker Recreational Drug Use Denies Drug Use Smoking Status Reviewed: 04/03/21 Non Smoker Allergies and adverse reactions Active [...] Bond D.OYonatan Velphoro 500mg Chewtabs Bowen Bond D.OYonatan Cyclobenzaprine HCL 5mg Tablets Take One Tablet By Mouth Three Times A Day as Needed Unkn own Hydrocodone Bitartrate/Acetaminophen 5-325mg Tablets Take One Tablet By Mouth Two Times A Day as Needed Maximum Daily Dose 2 Tablet Unknown Immunizations Description No Information Available Vital Signs Date Vital Result Comment 04/17/2021 9:21am Body Temperature 96.9 F 04/03/2021 9:50am Body Temperature 97.0 F Results Description No Information Available Procedures Date Code Description Status 04/17/2021 15376 Apply Cast Short Arm Completed 04/03/2021 56432 Office/Outpatient New Low MDM 30 -44 Minutes Completed 04/03/2021 29853 FX Distal Radius Closed Treatmen t W/Manipulation Completed Medical Devices Description No Information Available Encounters Description No Information Available Assessments Date Code Description Provider 05/08/2021 S52.591D Other fractures of l ower end of right radius, subsequent encounter for closed fracture with routine healing Cesar Penn DO 04/17/2021 S52.591D Other fractures of l ower end of right radius, subsequent encounter for closed fracture with routine healing Cesar Penn DO 04/17/2021 S52.611D Displaced fracture o f right ulna styloid process, subsequent encounter for closed fracture with routine healing Cesar Penn DO 04/03/2021 S52.591A Other fractures of l ower end of right radius, initial encounter for closed fracture Cesar Penn DO 04/03/2021 S52.611A Displaced fracture o f right ulna styloid process, initial encounter for closed fracture Cesar Penn DO 04/03/2021 W01.0xxA Fall on same level f rom slipping, tripping and stumbling without subsequent striking against object, initial encounter Cesar Penn DO Plan of Treatment Future Appointment(s):* 05/22/2021 9:20 am - Cesar Penn DO at [facility] 05/08/2021 - Cesar Penn DO* S52.591D Other fractures of lower end of right radius, subsequent encounter for closed fracture with routine healing* New Xrays:* XR Wrist Complete Minimum 3 Views Right, Ordered: 05/08/21 * Comments:* 1. Fiberglass volar splint.2. Follow-up 2 weeks splint off and repeat x-rays right wrist Functional Status Description No Information Available Mental Status Description No Information Available Referrals Description No Information Available"
--- OUTSIDE RECORDS SUMMARY | 2021-06-04 05:19 | CCD | Continuity of Care Document ---
Author Author Caro PENN DO Organization Unknown Address [address] [place] [address], [facility] [place] [address] Phone [phone] Care Team Providers Care Senior Systems Developer Name Role Phone AUTM Unavailable Aiden Nieves M.D. AUTM [phone] Problems Active Problems Provider Date Essential hypertension [...] Available Procedures Date Code Description Status 04/17/2021 38022 Apply Cast Short Arm Completed 04/03/2021 21856 Office/Outpatient New Low MDM 30 -44 Minutes Completed 04/03/2021 86544 FX Distal Radius Closed Treatmen t W/Manipulation [...] 9:20 am - Cesar Penn DO at [facility] 05/08/2021 - Cesar Penn DO* S52.591D Other [...]
--- OUTSIDE RECORDS SUMMARY | 2021-06-04 05:19 | CCD ---
Author Author [facility] Organization [facility] Address Unknown Phone Unavailable Care Team Providers Care Long Term Care Administrator Name Role Phone Jackson Knott Unavailable PROBLEMS Type Condition ICD9-CM Code EJP48-SY Code Onset Dates Condition S tatus W/U Status Risk SNOMED Code Notes Problem Chronic diastolic heart failure I50.32 Active confi rmed 052845942 Problem Hypertensive chronic kidney disease, stage 5 chronic kidney disease or end stage renal disease I12.0 Active confirmed 448989 06 Problem Pulmonary emphysema, unspecified emphysema type J4 3.9 Active confirmed 59319463 Problem 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 0 Active confirmed 11486621 Problem Localized osteoarthritis of left knee M17.12 Ac tive confirmed 022941011 Problem Vitamin D deficiency E55.9 Active confirmed 71897810 Problem Pulmonary nodule R91.1 Active confirmed 309 871660 Problem Back pain, lumbosacral M54.5 Active confirmed 304357639 Problem Low back pain M54.5 Active confirmed 314999 007 Problem Chronic obstructive pulmonary disease J44.9 Ac tive confirmed 80541779 Problem Mucopurulent chronic bronchitis J41.1 Active confi rmed 38547353 Problem Sacroiliitis, not elsewhere classified M46.1 A ctive confirmed 843471441 Problem Other chronic pain G89.29 Active confirmed 8 5796867 Problem Mixed hyperlipidemia E78.2 Active confirmed 409664937 Problem Pneumonia due to infectious organism, unspecified laterality, unspecified part of lung J18.9 Active confirmed 32112 2009 Problem DM renal manif type II E11.29 Active confirmed 35040075 Problem Cervical spondylolysis M43.02 Active confirmed 860906738 Problem Chronic kidney disease, stage V N18.5 Active confi rmed 998769245 Problem 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 Active confirme d 477521961 Problem Atrial flutter I48.92 Active confirmed 59703 00 Problem COPD exacerbation J44.1 Active confirmed 19 9160273 Problem Esophageal reflux K21.9 Active confirmed 23 6694086 Problem Myalgia M79.1 Active confirmed 51239500 Problem Renal dialysis status Z99.2 Active confirmed 309264750 Problem Kidney stone N20.0 Active confirmed 3995174 7 Problem Constipation, unspecified constipation type K59.00 Active confirmed 04592355 Problem Osteoarthritis of both knees, unspecified osteoarthritis t ype M17.0 Active confirmed 778796171 Problem Thyroid nodule E04.1 Active confirmed 62386 5005 Problem Spondylosis without myelopathy or radiculopathy, lumbosacral region M47.817 Active confirmed 77192099 Problem DM w/o complication type II E11.9 Active confirmed 426092764 Problem Avascular necrosis of medial 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 Active confirmed 239737006 Problem Chronic kidney disease, unspecified N18.9 Acti ve confirmed 582974442 Problem Anxiety state F41.1 Active confirmed 140240 003 Problem LAYNE (nonalcoholic steatohepatitis) K75.81 Acti ve confirmed 444382028 Problem Spondylosis without myelopathy or radiculopathy, lumbar region M47.816 Active confirmed 89097036 Problem Hypoxemia R09.02 Active confirmed 379566471 Problem Pulmonary nodule, left R91.1 Active confirmed 014471129 Problem Frequent falls R29.6 Active confirmed 49177 2002 Problem Hyperparathyroidism E21.3 Active confirmed 56521964 Problem Chronic atrial fibrillation I48.2 Active confirmed 401051274 Problem Hypocalcemia E83.51 Active confirmed 4768101 ALLERGIES Allergen (clinical drug ingredient) Drug/Non Drug Allergy do cumented on EMR Reaction Allergy Type Onset Date Status gatifloxacin Gatifloxacin([facility] Code:[address]-22) Anaphylaxis Drug Al lergy Active tequin Anaphylaxis Non Drug Allergy Active azithromycin Azithromycin([facility] Code:[address]-14) dys pnea, face and lips swelling and tingling - seen in the ER 07/2016 Drug Allergy Active ENCOUNTERS from 1955 to 2021-05-03 Encounter Location Date Provider Diagnosis [place] [id number] [facility] [phone] [place] [address] Apr, Jackson Knott IMMUNIZATIONS Vaccine Route Administration [...] School Language: Question Answer Notes Languages spoken: Kiswahili Jehovah'S Witness: Question Answer Notes Jehovah'S Witness 21 Taoism No presybeterian beliefs that would impact health care. Sexual [...] m g for 28 day(s) Apr, Active traMADol HCl 50 MG 1 tablet as needed Orally ev marcela 6 hours for moderate pain (ps 5-7) MDD 4 tabs Unknown Kyra-Mirella Rx 1 MG 1 tablet Orally Once a day for 30 day(s) Unknown HYDROcodone-Acetaminophen 5-325 MG 1 tablet as needed Orally twice daily as needed;MDD:2 for 28 days November, Active Estrace 0.1 MG/GM 4gm daily x 2 weeks, then 2g m daily x 2 weeks, then 1gm tiw Vaginal as directed for 28 day(s) Apr, Unknown Metoprolol Tartrate 50 MG 1 tablet with food Orally Twice a day for 30 days Jul, Active Senna S 8.6-50 MG 1 tablet in the evening as n eeded Orally twice daily as needed Unknown Stiolto Respimat 2.5-2.5 MCG/ACT 2 puffs Inhalation Once a day Unknown One Touch Delica 33 gauge testing twice a day and as n eeded ICD E11.29 for 90 days Aug, Active Oxygen as directed concentrator Daily for 99 days 2018 Unknown Aspirin 325 MG 1 tablet Orally Once a day 1017-17 am Unknown Sodium Polystyrene Sulfonate 15 GM/60ML 60 ml Orally O nce a day only if told by dymarzena Unknown Physical Therapy evaluate and treat as directed DX: R2 9.898, on renal dialysis, pending kidney transplant, DM, 1-3X/week for 1 month May, 7 Unknown Omeprazole 40 MG 1 capsule Orally Once a day for 90 day(s) Mar, Active Crestor 20 mg 1 tablet Orally at bedtime for 90 day(s) Active Flexeril 5 1 tab orally three times daily as needed for 30 Days Active Anoro Ellipta 62.5-25 MCG/INH 1 puff Inhalation Once a day Unknown Shower Chair without wheels with back Dx: I50.23, N15. 5, Z99.2 Daily Use for 999 days Ht: 62 in. Wt: 176.8 lb; Medicare # [id number] Medicaid #: [id number] Unknown Cyclobenzaprine HCl 5 MG TAKE ONE TABLET [...] with meals Orally three times daily Unknown Zofran 4 MG 1 tab(s) Orally every eight hours as needed for 15 days Unknown Insulin Pen Needle 29G X 12MM DX : E11.29 subcutaneously daily f or day(s) Unknown Drisdol 50,000 units 1 tab oral every other week week ago Unknown oxyCODONE-Acetaminophen 5-325 MG 1 tablet as needed Or ally every 8 hrs for severe pain (ps 8-10) MDD 3 tabs for 28 day(s) Feb, Not-Taking OneTouch Verio - verio flex In Vitro twice a day and as needed (ICD E11.29) for 90 days Aug, Unknown HYDROcodone-Acetaminophen 5-325 MG 1 tab Orally twice daily as needed MDD 2 for 28 days Oct, Not-Taking Renagel 800 MG 3 tablet with meals Orally Three times a day 05-12-172099 Unknown Calcium Carbonate 200 MG 2 tablets Orally two tablets with breakfast and one tablet with dinner Unknown Tiotropium Rose Bud-Olodaterol 2.5-2.5 MCG/ACT 2 puffs Inhalation On ce [...] Information RESULTS No Results REASON FOR VISIT refill- omeprazole MEDICAL (GENERAL) HISTORY Type Description Date Medical History DM II with nephropathy, goal HBA1c < 7.5 Medical History Stage V CKD (on dialysis with [facility]) Medical History atrial flutter (no anticoagu lation b/c of bleed - managed by Dae). Medical History h/o intraventricular bleed r elated to Coumadin ([facility]) 06/03- Previously followed by Dr Short Medical History HTN/HHD Medical History chronic diastolic heart fail ure (grade 1) - last echocardiogram [facility] 11/2016 Medical History COPD- [facility] Pul: Alicia Savici Medical History secondary hyperparathyroidism Medical History anemia of chronic disease Medical History anxiety Medical History obesity Medical History PRABHJOT (intolerant of BiPAP)- [facility] Medical History Ragadenosine Nuclear Stress @ [facility] 11/2016 - probably normal, no ischemia or [...] History Vocal cord dysfunction- referred to ENT [facility] 09/10 Medical History diffuse fibrofatty infiltration liver. Medical History Arthritis Medical History Back pain/Neck pain- [facility] Medical History MRSA 2007 [facility] Medical History KIDNEY STONE Surgical History c-sections 1977, 1985 Surgical History lumbar discectomy 1990 Surgical History breast bx - fibrocystic 04/2000 Surgical History colonoscopy 2001 Surgical History hysterectomy ([facility]) - done for heavy bleeding 2002 Surgical History nasal cautery ([facility]) 2002 Surgical History "eye procedure" ([facility] [place]) 2002 Surgical History ventriculostomy ([facility]) 07/03 Surgical History Fistula for dialysis ([facility] ) Surgical History FNA thyroid nodule- Dr Smith 08/09 Surgical History Colonoscopy 04/24/14 - [facility] Surgical History 4 teeth pulled -01/2017 Surgical History Ureteroscopy (left) with stent placement 06/2018 Surgical History Cystoscopy with L stent removal 9 Hospitalization History interventricular bleed ([facility]) 200 8 [facility] Hospitalization History weakness/back pain 03/2010 Hospitalization History Lower Abd Pain/constipation ([facility]) Hospitalization History pneumonia 07/25-07/31/16 Hospitalization History Influenza 10/20/2017 Hospitalization History acute diverticulitus 08/01/2018-07/27 Hospitalization History dizzyness 11/2018 Hospitalization History Shortness of breath - [facility] 01/2019 Hospitalization History Dizziness ([facility]) 07/2019 Goals Section No Information Health Concerns [...] Once a day for 90 day(s) 2017 HYDROcodone-Acetaminophen 5-325 MG 1 tablet as needed Orally twice daily as needed;MDD:2 for 28 days November, Next Appt Details Provider Name:Aiden Nieves, 11-0 5 01:15:00 PM, [address] [facility], , [place], [address], Insurance Providers Payer Name Payer Address Payer Phone Insured Name Patient Relati onship to Insured Coverage Start Date Coverage End Date MEDICARE Part A and B [address] [facility] [address] [phone] JOSE ROGERS self MEDICAID [employer] [address] [facility] [id number] JOSE ROGERS self
--- OUTSIDE RECORDS SUMMARY | 2021-06-04 05:19 | CCD | Summary of Care ---
Author Author [facility] Organization [facility] Address Unknown Phone Unavailable Care Team Providers Care Child Support Agent Name Role Phone Aiden Nieves MD PCP Reason for Referral * Diagnostic Radiology (Routine) Referred By Contact Referred To Contact Status Reason Specialty Diagnoses / Procedures Raya Bains NP [address] [place] [address] Email: [email or web address] Authorized Radiology Diagnoses Screening mammogram, encounter for P rocedures Mammo Digital Screen Bilateral Electronically signed by Raya Bains SKATE MAKER at Reason for Visit * Reason Comments Follow-up breast Encounter Details Care Team Description Date Type Department Raya Bains NP [address] [place] [address] Screening mammogram, encounter for (Prim yue Dx) 04/15/2021 Office Visit [facility] [address] [place] [address] Allergies Comments Active Allergy Reactions Severity Noted Date Was on 2 antibiotics for Pneumonia (unsure of names) Other Anaphylaxis High 08/27/2016 Reaction: SWELLING Quinolones 01/22/2015 Tequin Swelling 08/25/2012 documented as of this encounter (statuses as of 04/16/2021) Medications End Date Status Medication Sig Dispensed [...] dialysis Three days a weekIndicatio ns: takes tu thurs sat at dialysis Active diazepam (VALIUM) [...] Active vitamin D Take 50,000 0 (ERGOCALCIFEROL) 86831 Units by UNITS CAPS mouth every capsuleIndications: takes 14 (fourteen) every other week on sundays11/30/16 Indications: takes every other week on sundays 5/7/17 Active SENSIPAR 30 MG Take 30 mg by 5 tabletIndications: 3 x mouth once a 7 per week week Indications: 3 x per week Active sevelamer carbonate Take 800 mg 0 (RENVELA) 800 MG tablet by mouth Three times daily with meals Active Sucroferric Oxyhydroxide Take by mouth 0 (VELPHORO PO) Active Full Spectrum B/Vitamin C Take 1 tablet 0 0.8 MG Oral Tablet by mouth daily Active Anoro Ellipta 62.5-25 Inhale 1 puff 1 each 5 MCG/INH Inhalation into the 1 Aerosol Powder Breath lungs daily Activated (umeclidinium-vilanterol) documented as of this encounter (statuses as of 04/16/2021) Active Problems Patient Care Coordination Note Tim Diaz- overnight oximetry and O2 at night. 10/18/15 CD from [employer] uploaded into [employer] and returned by mail to the pt. 06/24/16 CD from [employer] uploaded into [employer] and returned by mail to the pt. 09/02/16 CD from [employer] uploaded into [employer] and returned by mail to the pt. Problem Noted Date Breast calcifications on mammogram 03/02/2020 Diabetes mellitus type II 11/03/2016 HTN (hypertension) 11/03/2016 Depression 11/03/2016 Hypothyroidism 11/03/2016 Atrial fibrillation 11/03/2016 Encounter for screening mammogram for high-risk patie nt 08/27/2016 Pulmonary nodules 06/17/2016 History of left breast biopsy 08/08/2015 Overview: Formatting of this note might be differ ent from the original. X2, benign Family history of breast cancer [...] as of this encounter (statuses as of 04/16/2021) Immunizations Name Administration Dates Next Due documented as of this encounter Social History Date Tobacco Use Types Packs/Day Years Used Quit: 07/27/2001 Former Smoker Cigarettes 2 40 Smokeless Tobacco: Never Used Comments Alcohol Use Standard Drinks/Week No 0 (1 standard drink = 0.6 o z pure alcohol) Sex Assigned at Date Recorded Not on file Date Recorded COVID-19 Exposure Response 04/15/2021 7:20 AM EDT In the last month, have you been in contact with No / Unsure someone who was confirmed or suspected to have Coronavirus / COVID-19? documented as of this encounter Last Filed Vital Signs Reading Time Taken Comments Vital Sign - - Blood Pressure - - Pulse 36.5 C (97.7 F) 04/15/2021 8:33 AM EDT Temperature - - Respiratory Rate - - Oxygen Saturation - - Inhaled Oxygen Concentration 78.5 kg (173 lb) 04/15/2021 8:33 AM EDT Weight 152.4 cm (5') 04/15/2021 8:33 AM EDT Height 33.79 04/15/2021 8:33 AM EDT Body Mass Index documented in this encounter Progress Notes * Raya Bains NP - 04/15/2021 8:30 AM EDT REASON FOR VISIT: Caro Carnes is a 65 y.o. woman who is followed at the [...] Patient had stereotactic breast biopsy done at [place] on 03/14/2020. Results benign and concordant, recommends [...] and left core biopsy 07/2015 with benign fin dings. Her family history is significant for breast [...] changes. She denies any nipple discharge. She recently fell and broke her right arm. She is in a cast. Otherwise she sta dionna she has noted increased fatigue. She denies recurrent fevers or chills, rosa maria nching night sweats, unintentional weight loss or unusual bony pain, unusual cou gh or dyspnea. Appetite is good, energy level good. MEDICATIONS: Prior to Admission medications Medication Sig Start Date End Date Taking? Authorizing Provider aspirin 325 MG tablet Take 325 mg by mouth daily. Yes Historical Provider, BD ULTRA-FINE PEN NEEDLES 29G X 12.7MM MISC [...] Two Times Daily Yes Historical Provider, MD De Jesus. Devices (DURABLE MEDICAL EQUIPMENT SEE SIG) MISC [...] 08/03/19 Yes Tory Summers vitamin D (ERGOCALCIFEROL) 55744 UNITS CAPS capsule Take 50,000 Units by [...] a nd answers questions appropriately. Visit Vitals Temp 36.5 C (97.7 F) Ht 1.524 m (5') Wt 78.5 kg (173 lb) BMI 33.79 kg/m Her breasts are relatively symmetric and moderatetly pendulous. Her nipples are everted bilaterally with no evident spontaneous nipple discharge. She has no asy mmetric skin dimpling or retraction with her arms held in multiple positions. Sh tomasa has no suspicious skin lesions. Her breast parenchyma is without any dominant or abnormal masses within either breast. There are no palpable axillary adenopat hy. RADIOGRAPHIC DATA: She had a bilateral mammogram and right breast ultrasound at our facility and re port showed: FINDINGS: There are scattered areas of fibroglandular density (category B). On mammogram, similar appearance of biopsy clip marker in the posterior right br east with adjacent likely post biopsy changes. A biopsy clip marker is seen in t he posterior left breast. Focal asymmetry is seen in the upper outer left breast . On bilateral targeted breast ultrasound, similar appearance of a 0.5 x 0.2 x 0.5 cm complicated cyst representing postbiopsy changes in the right breast at 9/10 o'clock. Mild increased echogenicity in the superficial fat in this region of t he right breast along with small cystic space, representing postbiopsy hematoma/ fat necrosis. A subcentimeter cyst in the left breast at 2:00, 4 cm from the nip ple appears to correlate with focal asymmetry seen mammographically. IMPRESSION: 1. Benign bilateral mammogram and bilateral targeted breast ultrasound. 2. No evidence for malignancy. 3. Recommend routine followup examination in one year. BI-RADS 2 - BENIGN FINDINGS ASSESSMENT AND PLAN: Caro is a 65 y.o. woman with a history of benign breast biopsies most recent in February 2020 as well as a family history of breast cancer. Based on today's clinical breast exam and breast imaging, there is no overt sign of malignancy or other concerning findings. [facility] for clin ical breast exam and breast imaging. She will contact us should any problems or questions relating to her breast health arise in the interim. documented in this encounter Plan of Treatment Care Team Description Date Type Specialty 04/16/2022 Appointment Radiology Vicky Dos Santos NP [address] [place] [id number] [phone] 04/16/2022 Office Visit Breast Surgery Order Schedule Name Type Priority Associated Diag noses Expected: 04/15/2021, Expires: 2 Mammo Digital Screen Imaging Routine Screening mammogram, Bilateral encounter for Health Maintenance Due Date Last Done Comments MMR Vaccines (1 of 1 - 11/20/1956 Standard series) Pneumococcal Vaccine: 65+ 11/20/1961 Years (1 of 4 - PCV13) Pneumococcal Vaccine: [birth year]20/1961 Pediatrics (0 to 5 Years) and At-Risk Patients (6 to 64 Years) (1 of 4 - PCV13) DTaP,Tdap,and Td Vaccines 05/25/2013 04/27/2013 (2 - Td or Tdap) Varicella Vaccines (1 of 10/10/2019 08/15/2019 2 - 2-dose childhood series) Zoster Vaccines (2 of 2) 10/10/2019 08/15/2019 Osteoporosis Screening 2 11/20/2020 yr Influenza Vaccine 04/26/2021 04/10/2020, 05/07/2016, 06/26/2015, Additional history exists Breast Cancer Screening 2 04/15/2023 04/15/2021, years 08/31/2020, 02/20/2020, Additional history exists Colon Cancer Screening 10 06/05/2024 06/05/2014 yrs Hepatitis B Vaccines Aged Out 09/18/2012, No longer eligible based on patient's age to 06/10/2012, complete this topic 05/06/2012, Additional history exists Hepatitis C Screening (B. 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
--- OUTSIDE RECORDS SUMMARY | 2021-06-04 05:19 | CCD | Continuity of Care Document ---
Author Author Caro PENN DO Organization Unknown Address [address] [place] [address], [facility] [place] [address] Phone [phone] Care Team Providers Care Senior Ui U[employer] Developer Name Role Phone AUTM Unavailable Aiden Nieves M.D. AUTM [phone] Problems Active Problems Provider Date Essential hypertension [...] nown Levothyroxine Sodium 75mcg Tablets Bowen Bond D.O. Velphoro 500mg Chewtabs Bowen Bond D.O. Cyclobenzaprine [...] Available Procedures Date Code Description Status 05/08/2021 15012 Apply Splint Short Arm Static Co mpleted 04/17/2021 43371 Apply Cast Short Arm Completed 04/03/2021 63797 Office/Outpatient New Low MDM 30 -44 Minutes Completed 04/03/2021 58920 FX Distal Radius Closed Treatmen t W/Manipulation Completed Medical Devices Description No Information Available Encounters Type Date Location Provider Dx Diagnosis Office Visit 05/08/2021 9:20a [facility] Penn, DO S52.591D Oth fx of lower end r radius, subs for c los fx w routn [facility] Office Visit 04/17/2021 9:20a [facility] Penn, DO S52.591D Oth fx of lower end r radius, subs for c los fx w routn heal S52.611D Disp fx of r ulna styloid pr o, subs for clos fx w routn heal Office Visit 04/03/2021 10:00a [facility] Penn, DO S52.591A Oth fractures of lower end of right radi us, init for clos fx S52.611A Disp fx of right ulna styloi d process, init for clos fx W01.0xxA Fall same lev from slip/trip w/o strike against object, init Assessments Date Code Description Provider 05/08/2021 S52.591D [...] 9:20 am - Cesar Penn DO at [facility] 05/08/2021 - Cesar Penn DO* S52.591D Other fractures of lower end of right radius, subsequent encounter for closed fracture with routine healing* Comments:* 1. Fiberglass volar splint.2. Follow-up 2 weeks splint off and repeat x-rays right wrist Functional Status Description No Information Available Mental Status Description No Information Available Referrals Description No Information Available"
--- OUTSIDE RECORDS SUMMARY | 2021-06-04 05:19 | CCD ---
Author Author [facility] Organization [facility] Address Unknown Phone Unavailable Care Team Providers Care Redrying Machine Operator Name Role Phone Jackson Knott Unavailable PROBLEMS Type Condition ICD9-CM Code [id number] Code Onset Dates Condition S tatus W/U Status Risk SNOMED Code Notes Problem Chronic diastolic heart failure I50.32 Active confi rmed 426289988 Problem Hypertensive chronic kidney disease, stage 5 chronic kidney disease or end stage renal disease I12.0 Active confirmed 208384 06 Problem Pulmonary emphysema, unspecified emphysema type J4 3.9 Active confirmed 90300772 Problem 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 0 Active confirmed 38215706 Problem Localized osteoarthritis of left knee M17.12 Ac tive confirmed 380221997 Problem Vitamin D deficiency E55.9 Active confirmed 38976558 Problem Pulmonary nodule R91.1 Active confirmed 309 830096 Problem Back pain, lumbosacral M54.5 Active confirmed 738530313 Problem Low back pain M54.5 Active confirmed 538302 007 Problem Chronic obstructive pulmonary disease J44.9 Ac tive confirmed 18283147 Problem Mucopurulent chronic bronchitis J41.1 Active confi rmed 67550160 Problem Sacroiliitis, not elsewhere classified M46.1 A ctive confirmed 761207123 Problem Other chronic pain G89.29 Active confirmed 8 8134940 Problem Mixed hyperlipidemia E78.2 Active confirmed 415047738 Problem Pneumonia due to infectious organism, unspecified laterality, unspecified part of lung J18.9 Active confirmed 29649 2009 Problem DM renal manif type II E11.29 Active confirmed 51279069 Problem Cervical spondylolysis M43.02 Active confirmed 325696606 Problem Chronic kidney disease, stage V N18.5 Active confi rmed 795155140 Problem 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 Active confirme d 933219159 Problem Atrial flutter I48.92 Active confirmed 22079 00 Problem COPD exacerbation J44.1 Active confirmed 19 3651934 Problem Esophageal reflux K21.9 Active confirmed 23 3269016 Problem Myalgia M79.1 Active confirmed 36878329 Problem Renal dialysis status Z99.2 Active confirmed 579579805 Problem Kidney stone N20.0 Active confirmed 0982145 7 Problem Constipation, unspecified constipation type K59.00 Active confirmed 33625750 Problem Osteoarthritis of both knees, unspecified osteoarthritis t ype M17.0 Active confirmed 201986610 Problem Thyroid nodule E04.1 Active confirmed 73339 5005 Problem Spondylosis without myelopathy or radiculopathy, lumbosacral region M47.817 Active confirmed 15029684 Problem DM w/o complication type II E11.9 Active confirmed 733084153 Problem Avascular necrosis of medial 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 Active confirmed 456789358 Problem Chronic kidney disease, unspecified N18.9 Acti ve confirmed 518467888 Problem Anxiety state F41.1 Active confirmed 133466 003 Problem LAYNE (nonalcoholic steatohepatitis) K75.81 Acti ve confirmed 883534197 Problem Spondylosis without myelopathy or radiculopathy, lumbar region M47.816 Active confirmed 04474013 Problem Hypoxemia R09.02 Active confirmed 931683965 Problem Pulmonary nodule, left R91.1 Active confirmed 020567634 Problem Frequent falls R29.6 Active confirmed 28070 2002 Problem Hyperparathyroidism E21.3 Active confirmed 91363692 Problem Chronic atrial fibrillation I48.2 Active confirmed 290448439 Problem Hypocalcemia E83.51 Active confirmed 7855416 ALLERGIES Allergen (clinical drug ingredient) Drug/Non Drug Allergy do cumented on EMR Reaction Allergy Type Onset Date Status gatifloxacin Gatifloxacin([facility] Code:[address]-67) Anaphylaxis Drug Al lergy Active tequin Anaphylaxis Non Drug Allergy Active azithromycin Azithromycin([facility] Code:[address]-34) dys pnea, face and lips swelling and tingling - seen in the ER 07/2016 Drug Allergy Active ENCOUNTERS from 1955 to 2021-04-30 Encounter Location Date Provider Diagnosis [place] [address] [facility] [phone] [place] [address] Apr, Jackson Knott Anxiety state F41.1 IMMUNIZATIONS Vaccine Route Administration [...] School Language: Question Answer Notes Languages spoken: French Yarsanism: Question Answer Notes Yarsanism 21 Lutheran No christianity beliefs that would impact health care. Sexual [...] Once a day for 30 day(s) Unknown MiraLax 1 1 packet mixed with 8 ounces of fluid Orally once jose y as needed Unknown Estrace 0.1 MG/GM 4gm daily x 2 [...] ICD E11.29 for 90 days Aug, Active Physical Therapy evaluate and treat as directed DX: R2 9.898, on renal dialysis, pending kidney transplant, DM, 1-3X/week for 1 month May, 7 Unknown Aspirin 325 MG 1 tablet Orally Once a day 1017-17 am Unknown Sodium Polystyrene Sulfonate 15 GM/60ML 60 ml Orally O nce a day only if told by dyalisis Unknown Omeprazole 40 MG 1 capsule Orally Once a day for 90 day(s) Mar, Active HYDROcodone-Acetaminophen 5-325 MG 1 tablet as needed Orally twice daily as needed;MDD:2 for 28 days November, Active Crestor 20 mg 1 tablet Orally at bedtime for 90 day(s) Active Cyclobenzaprine HCl 5 MG TAKE ONE TABLET BY MOUTH THR EE TIMES A DAY NEEDED for 30 Active Anoro Ellipta 62.5-25 MCG/INH 1 puff Inhalation Once a day Unknown Shower Chair without wheels with back Dx: I50.23, N15. 5, Z99.2 Daily Use for 999 days Ht: 62 in. Wt: 176.8 lb; Medicare # [id number] Medicaid #: [id number] Unknown Oxygen as directed concentrator Daily for 99 days 2018 Unknown HYDROcodone-Acetaminophen 5-325 MG 1 tablet as needed Orally twice daily as needed;MDD=2 for 28 days Sep, Active Sensipar 30 MG 1 tablet Orally twice a week, MON, FRI week ago Unknown Flexeril 5 1 tab orally three times daily as needed for 30 Days Active Ammonium Lactate 12 % 1 application [...] and one tablet with dinner Unknown Tiotropium [place]-Olodaterol 2.5-2.5 MCG/ACT 2 puffs Inhalation On ce [...] Information RESULTS No Results REASON FOR VISIT Trazadone, Diazepam MEDICAL (GENERAL) HISTORY Type Description Date Medical History DM II with nephropathy, goal HBA1c < 7.5 Medical History Stage V CKD (on dialysis with [facility]) Medical History atrial flutter (no anticoagu lation b/c of bleed - managed by Dae). Medical History h/o intraventricular bleed r elated to Coumadin ([facility]) 06/03- Previously followed by Dr Short Medical History HTN/HHD Medical History chronic diastolic heart fail ure (grade 1) - last echocardiogram [facility] 11/2016 Medical History COPD- [facility] Pul: Alicia Dunlapici Medical History secondary hyperparathyroidism Medical History anemia of chronic disease Medical History anxiety Medical History obesity Medical History PRABHJOT (intolerant of BiPAP)- [facility] Medical History Ragadenosine Nuclear Stress @ [facility] 11/2016 - probably normal, no ischemia or [...] History Vocal cord dysfunction- referred to ENT [facility] 09/10 Medical History diffuse fibrofatty infiltration liver. Medical History Arthritis Medical History Back pain/Neck pain- [facility] Medical History MRSA 2007 [facility] Medical History KIDNEY STONE Surgical History c-sections 1977, 1985 Surgical History lumbar discectomy 1979, 1990 Surgical History breast bx - fibrocystic 04/2000 Surgical History colonoscopy 2001 Surgical History hysterectomy ([facility]) - done for heavy bleeding 2002 Surgical History nasal cautery ([facility]) 2002 Surgical History "eye procedure" ([place]) 2002 Surgical History ventriculostomy ([facility]) 07/03 Surgical History Fistula for dialysis ([facility] ) Surgical History FNA thyroid nodule- Dr Smith 08/09 Surgical History Colonoscopy 04/24/14 - [facility] Surgical History 4 teeth pulled -01/2017 Surgical History Ureteroscopy (left) with stent placement 06/2018 Surgical History Cystoscopy with L stent removal 9 Hospitalization History interventricular bleed ([facility]) 200 8 [facility] History weakness/back pain 03/2010 Hospitalization History [place] Abd [place] Hospitalization History pneumonia 07/25-07/31/16 Hospitalization History Influenza 10/20/2017 Hospitalization History acute diverticulitus 08/01/2018-07/27 Hospitalization History dizzyness 11/2018 Hospitalization History Shortness of breath - AMA 01/2019 Hospitalization History Dizz[place] 07/2019 Goals Section No Information Health Concerns No Information MEDICAL EQUIPMENT No Information MENTAL STATUS No Information FUNCTIONAL STATUS No Information ASSESSMENTS Encounter Date Diagnosis Assessment Notes Treatment Notes Treatm ent Clinical Notes Apr, Anxiety state (ICD-10 - F41.1) PLAN OF [...] November, Next Appt Details Provider Name:Aiden Nieves, 2020-11-0 5 01:15:00 PM, [address] [facility], , [place], [address], Insurance Providers Payer Name Payer Address Payer Phone Insured Name Patient Relati onship to Insured Coverage Start Date Coverage End Date MEDICAID [employer] [address] [facility] [address] JOSE ROGERS MEDICARE Part A and B [address] [facility] [phone] JOSE ROGERS self
--- OUTSIDE RECORDS SUMMARY | 2021-06-04 05:19 | CCD | Continuity of Care Document ---
Author Author Caro PENN DO Organization Unknown Address [address] [place] [address], [facility] [place] [address] Phone [phone] Care Team Providers Care Microbiology Instructor Name Role Phone Aiden Nieves M.D. AUTM [phone] AUTM Unavailable Problems Active Problems Provider Date Essential hypertension [...] Use Smoking Status Reviewed: 04/03/21 Non Smoker Allergies, Adverse Reactions, Alerts Active Allergies Criticality Reaction | Severity Comments [...] Unk nown Levothyroxine Sodium 75mcg Tablets Bowen Bond, D.OYonatan Velphoro 500mg Chewtabs Bowen Bond D.O. [...] Information Available Procedures Date Code Description Status 04/03/2021 61791 Office/Outpatient New Low MDM 30 -44 Minutes Completed 04/03/2021 01125 FX Distal Radius Closed Treatmen t W/Manipulation Completed Medical Devices Description No Information Available Encounters Description No Information Available Assessments Date Code Description Provider 04/03/2021 S52.591A Other fractures of l ower end of right radius, initial encounter for closed fracture Cesar Penn DO 04/03/2021 S52.611A Displaced fracture o f right ulna styloid process, initial encounter for closed fracture Cesar Penn DO 04/03/2021 W01.0xxA Fall on same level f rom slipping, tripping and stumbling without subsequent striking against object, initial encounter Cesar Penn DO Plan of Treatment No Information Available Functional Status Description No Information Available Mental Status Description No Information Available Referrals Description No Information Available"
--- OUTSIDE RECORDS SUMMARY | 2021-06-04 05:19 | CCD ---
Author Author [facility] Organization [facility] Address Unknown Phone Unavailable Care Team Providers Care Claims Auditor Name Role Phone Jackson Knott Unavailable PROBLEMS Type Condition ICD9-CM Code JQU08-SV Code Onset Dates Condition S tatus W/U Status Risk SNOMED Code Notes Problem Chronic diastolic heart failure I50.32 Active confi rmed 923640182 Problem Hypertensive chronic kidney disease, stage 5 chronic kidney disease or end stage renal disease I12.0 Active confirmed 471405 06 Problem Pulmonary emphysema, unspecified emphysema type J4 3.9 Active confirmed 57970137 Problem 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 0 Active confirmed 01047742 Problem Localized osteoarthritis of left knee M17.12 Ac tive confirmed 094292261 Problem Vitamin D deficiency E55.9 Active confirmed 92122390 Problem Pulmonary nodule R91.1 Active confirmed 309 614266 Problem Back pain, lumbosacral M54.5 Active confirmed 317638089 Problem Low back pain M54.5 Active confirmed 690055 007 Problem Chronic obstructive pulmonary disease J44.9 Ac tive confirmed 46660562 Problem Mucopurulent chronic bronchitis J41.1 Active confi rmed 84575310 Problem Sacroiliitis, not elsewhere classified M46.1 A ctive confirmed 042867909 Problem Other chronic pain G89.29 Active confirmed 8 4498141 Problem Mixed hyperlipidemia E78.2 Active confirmed 035989317 Problem Pneumonia due to infectious organism, unspecified laterality, unspecified part of lung J18.9 Active confirmed 62159 2009 Problem DM renal manif type II E11.29 Active confirmed 32395581 Problem Cervical spondylolysis M43.02 Active confirmed 631171813 Problem Chronic kidney disease, stage V N18.5 Active confi rmed 901808487 Problem 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 Active confirme d 378618766 Problem Atrial flutter I48.92 Active confirmed 74898 00 Problem COPD exacerbation J44.1 Active confirmed 19 2348591 Problem Esophageal reflux K21.9 Active confirmed 23 5725403 Problem Myalgia M79.1 Active confirmed 93709630 Problem Renal dialysis status Z99.2 Active confirmed 121643229 Problem Kidney stone N20.0 Active confirmed 9507412 7 Problem Constipation, unspecified constipation type K59.00 Active confirmed 25061354 Problem Osteoarthritis of both knees, unspecified osteoarthritis t ype M17.0 Active confirmed 899989029 Problem Thyroid nodule E04.1 Active confirmed 86957 5005 Problem Spondylosis without myelopathy or radiculopathy, lumbosacral region M47.817 Active confirmed 37623009 Problem DM w/o complication type II E11.9 Active confirmed 977501642 Problem Avascular necrosis of medial 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 Active confirmed 799654091 Problem Chronic kidney disease, unspecified N18.9 Acti ve confirmed 646890284 Problem Anxiety state F41.1 Active confirmed 555831 003 Problem LAYNE (nonalcoholic steatohepatitis) K75.81 Acti ve confirmed 904388209 Problem Spondylosis without myelopathy or radiculopathy, lumbar region M47.816 Active confirmed 21109450 Problem Hypoxemia R09.02 Active confirmed 388235853 Problem Pulmonary nodule, left R91.1 Active confirmed 093191770 Problem Frequent falls R29.6 Active confirmed 02571 2002 Problem Hyperparathyroidism E21.3 Active confirmed 70939327 Problem Chronic atrial fibrillation I48.2 Active confirmed 622155692 Problem Hypocalcemia E83.51 Active confirmed 7853928 ALLERGIES Allergen (clinical drug ingredient) Drug/Non Drug Allergy do cumented on EMR Reaction Allergy Type Onset Date Status gatifloxacin Gatifloxacin([facility] Code:[address]-55) Anaphylaxis Drug Al lergy Active tequin Anaphylaxis Non Drug Allergy Active azithromycin Azithromycin([facility] Code:[address]-90) dys pnea, face and lips swelling and tingling - seen in the ER 07/2016 Drug Allergy Active ENCOUNTERS from 1955 to 2021-04-17 Encounter Location Date Provider Diagnosis [place] [address] [facility] [phone] [place] [address] 11 Feb, 2021 Jackson Knott IMMUNIZATIONS Vaccine Route Administration Date [...] School Language: Question Answer Notes Languages spoken: Urdu Quaker: Question Answer Notes Quaker 21 Pentecostal No yarsanism beliefs that would impact health care. Sexual [...] Notes Start Da te End Date Status Stiolto Respimat 2.5-2.5 MCG/ACT 2 puffs Inhalation Once a day Unknown Sodium Polystyrene Sulfonate 15 GM/60ML 60 ml Orally O nce a day only if told by [place] Unknown Kyra-Mirella Rx 1 MG 1 tablet Orally Once a day for 30 day(s) Unknown MiraLax 1 1 packet mixed with 8 ounces of fluid Orally once jose y as needed Unknown Aspirin 325 MG 1 tablet Orally Once a day 1017-17 am Unknown traMADol HCl 50 MG 1 tablet as needed Orally ev marcela 6 hours for moderate pain (ps 5-7) MDD 4 tabs Unknown Trazodone HCl 100 mg 1 tablet at bedtime Orally at bedtime for 30 day s Active oxyCODONE-Acetaminophen 5-325 MG 1 tablet as needed Or ally every 8 hrs for severe pain (ps 8-10) MDD 3 tabs for 28 day(s) Feb, Not-Taking Shower Chair without wheels with back Dx: I50.23, N15. 5, Z99.2 Daily Use for 999 days Ht: 62 in. Wt: 176.8 lb; Medicare # [id number] Medicaid #: [id number] Unknown Physical Therapy evaluate and treat as directed DX: R2 9.898, on renal dialysis, pending kidney transplant, DM, 1-3X/week for 1 month May, 7 Unknown Anoro Ellipta 62.5-25 MCG/INH 1 puff Inhalation Once a day Unknown One Touch Delica 33 gauge testing twice a day and as n eeded ICD E11.29 for 90 days Aug, Active Omeprazole 40 MG 1 capsule Orally Once a day for 90 day(s) Mar, Active HYDROcodone-Acetaminophen 5-325 MG 1 tablet as needed Orally twice daily as needed;MDD:2 for 28 days November, Active Sensipar 30 MG 1 tablet Orally twice a week, MON, THU week ago Unknown Cyclobenzaprine HCl 5 MG TAKE ONE TABLET BY MOUTH THR EE TIMES A DAY NEEDED for 30 Active diazePAM 2 MG 2 tablet as needed Orally bid as needed, MDD 8 m g for 28 day(s) Feb, Active Crestor 20 mg 1 tablet Orally at bedtime for 90 day(s) Active Oxygen as directed concentrator Daily for 99 days 2018 Unknown HYDROcodone-Acetaminophen 5-325 MG 1 tablet as needed Orally twice daily as needed;MDD=2 for 28 days Sep, Active HYDROcodone-Acetaminophen 5-325 MG 1 tab Orally twice daily as needed MDD 2 for 28 days Oct, Not-Taking Flexeril 5 1 tab orally three times daily as needed for 30 Days Active Drisdol 50,000 units 1 tab oral every other week week ago Unknown Ammonium Lactate 12 % 1 application to affected ar ea Externally Twice a day to feet Unknown Renagel 800 MG 3 tablet with meals Orally Three times a day 05-12-172099 Unknown Calcium Carbonate 200 MG 2 tablets Orally two tablets with breakfast and one tablet with dinner Unknown OneTouch Verio - verio flex In Vitro twice a day and as needed (ICD E11.29) for 90 days Aug, Unknown Tiotropium [place]-Olodaterol 2.5-2.5 MCG/ACT 2 puffs Inhalation On a day Unknown Velphoro 500 MG 1 tablet with meals Orally three times daily Unknown Zofran 4 MG 1 tab(s) Orally every eight hours as needed for 15 days Unknown Metoprolol Tartrate 50 MG 1 tablet with food Orally Twice a day for 30 days Jul, Active Senna S 8.6-50 MG 1 tablet in the evening as n eeded Orally twice daily as needed Unknown Insulin Pen Needle 29G X 12MM DX : E11.29 subcutaneously daily f or 90 day(s) Unknown Estrace 0.1 MG/GM 4gm daily x 2 weeks, then 2g m daily x 2 weeks, then 1gm tiw Vaginal as directed for 28 day(s) Apr, Unknown Glucometer (Verio IQ) 1 250 vitro Twice a day for 30 day(s) Dec, Unknown Lantus 100 UNIT/ML 10 units Subcutaneous at bed time if needed/ DX : E11.9 for 30 days Unknown May Have RECEIVES HEPARIN AT DIALYSIS Unknown Levothyroxine Sodium 75 MCG 1 tablet on an empty stoma ch in the morning Orally Once a day 05-13- 0800 Unknown Nebulizer/Tubing/Mouthpiece 1 1 tab(s) 327.23 daily as needed fo r 30 day(s) Feb, Unknown Calcitriol 0.25 MCG 2 capsules Orally Once a day Dose change Jul, Unknown Meclizine HCl 25 mg 1 tablet as needed Orally every 8 hours as n eeded Dec, Unknown PROCEDURES No Information RESULTS No Results REASON FOR VISIT wrong med sent MEDICAL (GENERAL) HISTORY Type Description Date Medical History DM II with nephropathy, goal HBA1c < 7.5 Medical History Stage V CKD (on dialysis with R[facility]) Medical History atrial flutter (no anticoagu lation b/c of bleed - managed by Dae). Medical History h/o intraventricular bleed r elated to Coumadin ([facility]) 06/03- Previously followed by Dr Short Medical History HTN/HHD Medical History chronic diastolic heart fail ure (grade 1) - last echocardiogram [facility] 11/2016 Medical History COPD- [facility]: Alicia Savici Medical History secondary hyperparathyroidism Medical History anemia of chronic disease Medical History anxiety Medical History obesity Medical History PRABHJOT (intolerant of BiPAP)- [facility] Medical History Ragadenosine Nuclear Stress @ [facility] 11/2016 - probably normal, no ischemia or [...] Vocal cord dysfunction- referred to ENT [facility] 09/10 Medical History diffuse fibrofatty infiltration liver. Medical History Arthritis Medical History Back pain/Neck pain- [facility] Medical History MRSA 2007 [facility] Medical History KIDNEY STONE Surgical History c-sections 1977, 1985 Surgical History lumbar discectomy 1990 Surgical History breast bx - fibrocystic 04/2000 Surgical History colonoscopy 2001 Surgical History hysterectomy ([facility]) - done for heavy bleeding 2002 Surgical History nasal cautery ([facility]) 2002 Surgical History "eye procedure" ([facility] - [place]) 2002 Surgical History ventriculostomy ([facility]) 07/03 Surgical History Fistula for dialysis ([facility] Surgical History FNA thyroid nodule- Dr Smith 08/09 Surgical History Colonoscopy 04/24/14 - Emma Surgical History 4 teeth pulled -01/2017 Surgical History Ureteroscopy (left) with stent placement 06/2018 Surgical History Cystoscopy with L stent removal 9 Hospitalization History interventricular bleed ([facility]) 200 8 [facility] Hospitalization History weakness/back pain 03/2010 Hospitalization History Lower Abd Pain/constipation ([facility]) Hospitalization History pneumonia 07/25-07/31/16 Hospitalization History Influenza 10/20/2017 Hospitalization History acute diverticulitus 08/01/2018-07/27 Hospitalization History dizzyness 11/2018 Hospitalization History Shortness of breath - AMA 01/2019 Hospitalization History Dizziness ([facility]) 07/2019 Goals Section No Information Health [...] 01:15:00 PM, [address] [facility], , [place], [address], Insurance Providers Payer Name Payer Address Payer Phone Insured Name Patient Relati onship to Insured Coverage Start Date Coverage End Date MEDICARE Part A and B [address] [place] [address] JOSE ROGERS MEDICAID [employer] [address] [facility] [address] JOSE ROGERS
--- OUTSIDE RECORDS SUMMARY | 2021-06-04 05:19 | CCD | Continuity of Care Document ---
Author Author Caro PENN DO Organization Unknown Address [address] [place] [address], [facility] [place] [address] Phone [phone] Care Team Providers Care Stull Hewer Name Role Phone AUTM Unavailable Aiden Nieves M.D. AUTM [phone] Problems Active Problems Provider Date Essential hypertension [...] Available Procedures Date Code Description Status 04/17/2021 22334 Apply Cast Short Arm Completed 04/03/2021 32595 Office/Outpatient New Low MDM 30 -44 Minutes Completed 04/03/2021 12632 FX Distal Radius Closed Treatmen t W/Manipulation Completed Medical Devices Description No Information Available Encounters Type Date Location Provider Dx Diagnosis Office Visit 04/17/2021 9:20a [facility] Celso Man Daugherty, DO S52.591D Oth fx of lower end r radius, subs for c los fx w routn heal S52.611D Disp fx of r ulna styloid pr o, subs for clos fx w routn heal Office Visit 04/03/2021 10:00a [facility] Celso Man Daugherty, DO S52.591A Oth fractures of lower end [...] 9:20 am - Cesar Penn DO at [facility] 05/08/2021 - Cesar Penn DO* S52.591D Other [...]
--- OUTSIDE RECORDS SUMMARY | 2021-06-04 05:19 | CCD | Summary of Care ---
Author Author [facility] Organization [facility] Address Unknown Phone Unavailable Care Team Providers Care Butcher Name Role Phone Aiden Nieves MD PCP Reason for Visit * Diagnostic Radiology (Routine) Referred By Contact Referred To Contact Status Reason Specialty Diagnoses / Procedures Raya Bains, [employer] [address] [place] [address] Email: [email or web address] Open Radiology Diagnoses Benign cyst of right breast P rocedures US Breast Including Axilla Limited Bilateral US Breast Including Axilla Limited Right Encounter Details Care Team Description Date Type Department Benign cyst of right breast 04/15/2021 [facility] Radiology Women's I maging Encounter [facility] [address] [place] [address] Allergies Comments Active Allergy Reactions [...] dialysis Three days a weekIndicatio ns: takes thurs sat at dialysis Active diazepam (VALIUM) [...] Active vitamin D Take 50,000 0 (ERGOCALCIFEROL) 98322 Units by UNITS CAPS mouth every capsuleIndications: [...] and O2 at night. 10/18/15 CD from [employer] uploaded into [employer] and returned by mail to the pt. 06/24/16 CD from [employer] uploaded into [employer] and returned by mail to the pt. 09/02/16 CD from [employer] uploaded into [employer] and returned by mail to the pt. [...] 04/16/2022 Appointment Radiology Vicky Dos Santos NP [address] [place] [address] [phone] 04/16/2022 Office Visit Breast Surgery Date/Time Name Type Priority Associated Diag noses 04/15/2021 8:05 AM EDT US Breast Including Imaging Routine Benign cys t of right Axilla Limited Bilateral breast Order Schedule Name Type Priority Associated Diag noses As Needed for 1 Occurrences starting until 04/15/2021 US Breast Including Imaging Routine Benign cys t of right Axilla Limited Bilateral breast Health Maintenance Due Date Last Done [...] Additional history exists Breast Cancer Screening 2 08/31/2022 08/31/2020, years 02/20/2020, 02/03/2020, Additional history exists Colon Cancer Screening 10 06/05/2024 06/05/2014 yrs Hepatitis B Vaccines Aged Out 09/18/2012, No longer eligible based on patient's age to 06/10/2012, complete this topic 05/06/2012, Additional history exists Hepatitis C Screening (B. 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
--- OUTSIDE RECORDS SUMMARY | 2021-06-04 05:19 | CCD | Continuity of Care Document ---
Author Author Caro PENN DO Organization Unknown Address [address] [place] [address], [facility] [place] [address] Phone [phone] Care Team Providers Care Expedition Supervisor Name Role Phone AUTM Unavailable Aiden Nieves M.D. AUTM [phone] Problems Active Problems Provider Date Essential hypertension [...] Available Procedures Date Code Description Status 04/17/2021 30702 Apply Cast Short Arm Completed 04/03/2021 35669 Office/Outpatient New Low MDM 30 -44 Minutes Completed 04/03/2021 89360 FX Distal Radius Closed Treatmen t W/Manipulation Completed Medical Devices Description No Information Available Encounters Type Date Location Provider Dx Diagnosis Office Visit 04/17/2021 9:20a [facility] Celso Man Daugherty, DO S52.591D Oth fx of lower end r radius, subs for c los fx w routn heal S52.611D Disp fx of r ulna styloid pr o, subs for clos fx w routn heal Office Visit 04/03/2021 10:00a [facility] Celso Man Daugherty, DO S52.591A Oth [...] 9:20 am - Cesar Penn DO at [facility] 05/08/2021 - Cesar Penn DO* [...]
--- OUTSIDE RECORDS SUMMARY | 2021-06-04 05:19 | CCD | Continuity of Care Document ---
Author Author Caro PENN DO Organization Unknown Address [address] [place] [address], [facility] [place] [address] Phone [phone] Care Team Providers Care Caddy Name Role Phone AUTM Unavailable Aiden Nieves M.D. AUTM [phone] Problems Active Problems Provider Date Essential hypertension [...] Available Procedures Date Code Description Status 05/08/2021 66211 Apply Splint Short Arm Static Co mpleted 04/17/2021 34692 Apply Cast Short Arm Completed 04/03/2021 73200 Office/Outpatient New Low MDM 30 -44 Minutes Completed 04/03/2021 76565 FX Distal Radius Closed Treatmen t W/Manipulation Completed Medical Devices Description No Information Available Encounters Type Date Location Provider Dx Diagnosis Office Visit 05/08/2021 9:20a [facility] Man Penn, DO S52.591D Oth fx of lower end r radius, subs for c los fx w routn [facility] Office Visit 04/17/2021 9:20a [facility] Man Penn, DO S52.591D Oth fx of lower end r radius, subs for c los fx w routn heal S52.611D Disp fx of r ulna styloid pr o, subs for clos fx w routn heal Office Visit 04/03/2021 10:00a [facility] Celso Daugherty Man humberto, DO S52.591A Oth fractures of lower end [...] process, initial encounter for closed fracture Cesar Penn, 04/03/2021 W01.0xxA Fall on same level f rom slipping, tripping and stumbling without subsequent striking against object, initial encounter Cesar Penn DO Plan of Treatment 05/20/2021 - Cesar Penn, * S52.591D Other fractures of lower end of right radius, subsequent encounter for closed fracture with routine healing* New Xrays:* XR Wrist Complete Minimum 3 Views Right, Ordered: 05/20/21 * Comments:* 1. Removable Velcro wrist splint 2 to 4 weeks2. Follow-up as needed Functional Status Description No Information Available Mental Status Description No Information Available Referrals Description No Information Available"
--- OUTSIDE RECORDS SUMMARY | 2021-06-04 05:19 | CCD | Summary of Care ---
Author Author [facility] Organization [facility] Address Unknown Phone Unavailable Care Team Providers Care Environmental Communications Specialist Name Role Phone Aiden Nieves MD PCP Reason for Referral * Diagnostic Radiology (Routine) Referred By Contact Referred To Contact Status Reason Specialty Diagnoses / Procedures Raya Bains NP [address] [place] [address] Email: [email or web address] Authorized Radiology Diagnoses Screening mammogram, encounter for P rocedures Mammo Digital Screen Bilateral Electronically signed by Raya Bains [employer] at Reason for Visit * Diagnostic Radiology (Routine) Referred By Contact Referred To Contact Status Reason Specialty Diagnoses / Procedures Raya Bains NP [address] [place] [address] Email: [email or web address] Authorized Radiology Diagnoses Screening mammogram, encounter for P rocedures Mammo Digital Screen Bilateral Encounter Details Care Team Description Date Type Department Screening mammogram, encount er for 04/15/2021 [facility] Radiology Women's I maging Encounter [address] [place] [address] Allergies Comments Active Allergy Reactions [...] Active vitamin D Take 50,000 0 (ERGOCALCIFEROL) 53288 Units by UNITS CAPS mouth every capsuleIndications: [...] Active Problems Patient Care Coordination Note Tim Mcclurewn- overnight oximetry and O2 at night. 10/18/15 CD from [employer] uploaded into [employer] and returned by mail to the pt. 06/24/16 CD from [employer] uploaded into [employer] and returned by mail to the pt. 09/02/16 CD from [employer] uploaded into [employer] and returned by mail to the pt. [...] Type Specialty 04/16/2022 Appointment Radiology Vicky Dos Santos, ORQUIDEA [address] [place] [address] [phone] 04/16/2022 Office Visit Breast Surgery Date/Time Name Type Priority Associated Diag noses 04/15/2021 7:41 AM EDT Mammo Digital Screen Imaging Routine Screening mammogram, Bilateral encounter for Order Schedule Name Type Priority Associated Diag noses As Needed for 1 Occurrences starting until 04/15/2021 Mammo Digital Screen Imaging Routine Screening mammogram, [...] exists Hepatitis C Screening (B. 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
--- OUTSIDE RECORDS SUMMARY | 2021-06-04 05:20 | CCD ---
Author Author [facility] Organization [facility] Address Unknown Phone Unavailable Care Team Providers Care Imaging Scheduler Name Role Phone Aiden Nieves Unavailable PROBLEMS Type Condition ICD9-CM Code [id number] Code Onset Dates Condition S tatus W/U Status Risk SNOMED Code Notes Problem Chronic diastolic heart failure I50.32 Active confi rmed 540590109 Problem Hypertensive chronic kidney disease, stage 5 chronic kidney disease or end stage renal disease I12.0 Active confirmed 810637 06 Problem Pulmonary emphysema, unspecified emphysema type J4 3.9 Active confirmed 88782650 Problem 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 0 Active confirmed 79773865 Problem Localized osteoarthritis of left knee M17.12 Ac tive confirmed 205264603 Problem Vitamin D deficiency E55.9 Active confirmed 84792570 Problem Pulmonary nodule R91.1 Active confirmed 309 621727 Problem Back pain, lumbosacral M54.5 Active confirmed 433533756 Problem Low back pain M54.5 Active confirmed 529907 007 Problem Chronic obstructive pulmonary disease J44.9 Ac tive confirmed 75316308 Problem Mucopurulent chronic bronchitis J41.1 Active confi rmed 86697673 Problem Sacroiliitis, not elsewhere classified M46.1 A ctive confirmed 354808848 Problem Other chronic pain G89.29 Active confirmed 8 4232045 Problem Mixed hyperlipidemia E78.2 Active confirmed 752031553 Problem Pneumonia due to infectious organism, unspecified laterality, unspecified part of lung J18.9 Active confirmed 99140 2009 Problem DM renal manif type II E11.29 Active confirmed 14443747 Problem Cervical spondylolysis M43.02 Active confirmed 474378164 Problem Chronic kidney disease, stage V N18.5 Active confi rmed 887417786 Problem 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 Active confirme d 327995147 Problem Atrial flutter I48.92 Active confirmed 49293 00 Problem COPD exacerbation J44.1 Active confirmed 19 7181283 Problem Esophageal reflux K21.9 Active confirmed 23 2053113 Problem Myalgia M79.1 Active confirmed 70680182 Problem Renal dialysis status Z99.2 Active confirmed 235587325 Problem Kidney stone N20.0 Active confirmed 1275506 7 Problem Constipation, unspecified constipation type K59.00 Active confirmed 19341396 Problem Osteoarthritis of both knees, unspecified osteoarthritis t ype M17.0 Active confirmed 150370257 Problem Thyroid nodule E04.1 Active confirmed 23878 5005 Problem Spondylosis without myelopathy or radiculopathy, lumbosacral region M47.817 Active confirmed 99031651 Problem DM w/o complication type II E11.9 Active confirmed 628399632 Problem Avascular necrosis of medial 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 Active confirmed 140623823 Problem Chronic kidney disease, unspecified N18.9 Acti ve confirmed 419424558 Problem Anxiety state F41.1 Active confirmed 366791 003 Problem LAYNE (nonalcoholic steatohepatitis) K75.81 Acti ve confirmed 093780902 Problem Spondylosis without myelopathy or radiculopathy, lumbar region M47.816 Active confirmed 60934033 Problem Hypoxemia R09.02 Active confirmed 338878068 Problem Pulmonary nodule, left R91.1 Active confirmed 682690151 Problem Frequent falls R29.6 Active confirmed 70241 2002 Problem Hyperparathyroidism E21.3 Active confirmed 35643163 Problem Chronic atrial fibrillation I48.2 Active confirmed 163978416 Problem Hypocalcemia E83.51 Active confirmed 9316570 ALLERGIES Allergen (clinical drug ingredient) Drug/Non Drug Allergy do cumented on EMR Reaction Allergy Type Onset Date Status gatifloxacin Gatifloxacin([facility] Code:[address]-78) Anaphylaxis Drug Al lergy Active tequin Anaphylaxis Non Drug Allergy Active azithromycin Azithromycin([facility] Code:[address]-97) dys pnea, face and lips swelling and tingling - seen in the ER 07/2016 Drug Allergy Active ENCOUNTERS from 1955 to 2021-03-07 Encounter Location Date Provider Diagnosis [place] [address] [facility] [phone] [place] [address] Feb, Aiden Nieves Anxiety state F41.1 IMMUNIZATIONS Vaccine Route Administration [...] Language: Question Answer Notes Languages spoken: Kiswahili Alevism: Question Answer Notes Alevism 21 Buddhism No taoist beliefs that would impact health care. Sexual [...] Notes Start Da te End Date Status Nebulizer/Tubing/Mouthpiece 1 1 tab(s) 327.23 daily as needed fo r 30 day(s) Feb, Unknown Crestor 20 mg 1 tablet Orally at bedtime for 90 day(s) Active Glucometer (Verio IQ) 1 250 vitro Twice a day for 30 day(s) Dec, Unknown Stiolto Respimat 2.5-2.5 MCG/ACT 2 puffs Inhalation Once a day Unknown OneTouch Verio - verio flex In Vitro twice a day and as needed (ICD E11.29) for 90 days Aug, Unknown Sodium Polystyrene Sulfonate 15 GM/60ML 60 ml Orally O nce a day only if told by dyalisis Unknown Insulin Pen Needle 29G X 12MM DX : E11.29 subcutaneously daily f or 90 day(s) Unknown Physical Therapy evaluate and treat as directed DX: R2 9.898, on renal dialysis, pending kidney transplant, DM, 1-3X/week for 1 month May, 7 Unknown diazePAM 2 MG 2 tablet as needed Orally bid as needed, MDD 8 m g for 28 day(s) Feb, Active Meclizine HCl 25 mg 1 tablet as needed Orally every 8 hours as n eeded Dec, Unknown Cyclobenzaprine HCl 5 MG TAKE ONE TABLET BY MOUTH THR EE TIMES A DAY NEEDED for 30 Active Shower Chair without wheels with back Dx: I50.23, N15. 5, Z99.2 Daily Use for 999 days Ht: 62 in. Wt: 176.8 lb; Medicare # [id number] Medicaid #: [id number] Unknown Aspirin 325 MG 1 tablet Orally Once a day 1017-17 am Unknown HYDROcodone-Acetaminophen 5-325 MG 1 tablet as needed Orally twice daily as needed;MDD:2 for 28 days November, Active traMADol HCl 50 MG 1 tablet as needed Orally ev marcela 6 hours for moderate pain (ps 5-7) MDD 4 tabs Unknown Calcitriol 0.25 MCG 2 capsules Orally Once a day Dose change Jul, Unknown Flexeril 5 1 tab orally three times daily as needed for 30 Days Active Zofran 4 MG 1 tab(s) Orally every eight hours as needed for 15 days Unknown Anoro Ellipta 62.5-25 MCG/INH 1 puff Inhalation Once a day Unknown Estrace 0.1 MG/GM 4gm daily x 2 weeks, then 2g m daily x 2 weeks, then 1gm tiw Vaginal as directed for 28 day(s) Apr, Unknown Sensipar 30 MG 1 tablet Orally twice a week, MON, THU week ago Unknown Drisdol 50,000 units 1 tab oral every other week week ago Unknown Kyra-Mirella Rx 1 MG 1 tablet Orally Once a day for 30 day(s) Unknown Omeprazole 40 MG 1 capsule Orally Once a day for 90 day(s) Mar, Active Lantus 100 UNIT/ML 10 units Subcutaneous at bed time if needed/ DX : E11.9 for 30 days Unknown HYDROcodone-Acetaminophen 5-325 MG 1 tab Orally twice daily as needed MDD 2 for 28 days Oct, Active oxyCODONE-Acetaminophen 5-325 MG 1 tablet as needed Or ally every 8 hrs for severe pain (ps 8-10) MDD 3 tabs for 28 day(s) Feb, Active Ammonium Lactate 12 % 1 application to affected ar ea Externally Twice a day to feet Unknown Metoprolol Tartrate 50 MG 1 tablet with food Orally Twice a day for 30 days Jul, Active Oxygen as directed concentrator Daily for 99 days 2018 Unknown One Touch Delica 33 gauge testing twice a day and as n eeded ICD E11.29 for 90 days Aug, Active Senna S 8.6-50 MG 1 tablet in the evening as n eeded Orally twice daily as needed Unknown Tiotropium [place]-Olodaterol 2.5-2.5 MCG/ACT 2 puffs Inhalation On ce a day Unknown HYDROcodone-Acetaminophen 5-325 MG 1 tablet as needed Orally twice daily as needed;MDD=2 for 28 days Sep, Active Trazodone HCl 100 mg 1 tablet at bedtime Orally at bedtime for 30 day s Active Velphoro 500 MG 1 tablet with meals Orally three times daily Unknown Renagel 800 MG 3 tablet with meals Orally Three times a day 05-12-172099 Unknown MiraLax 1 1 packet mixed with 8 ounces of fluid Orally once jose y as needed Unknown Calcium Carbonate 200 MG 2 tablets Orally two tablets with breakfast and one tablet with dinner Unknown Levothyroxine Sodium 75 MCG 1 tablet on an empty stoma ch in the morning Orally Once a day 05-13-17 0800 Unknown May Have RECEIVES HEPARIN AT DIALYSIS Unknown PROCEDURES No Information RESULTS No Results REASON FOR VISIT refill MEDICAL (GENERAL) HISTORY Type Description Date Medical History DM II with nephropathy, goal HBA1c < 7.5 Medical History Stage V CKD (on dialysis with [facility]) Medical History atrial flutter (no anticoagu lation b/c of bleed - managed by Dae). Medical History h/o intraventricular bleed r elated to Coumadin ([facility]) 06/03- Previously followed by Dr Short Medical History HTN/HHD Medical History chronic diastolic heart fail ure (grade 1) - last echocardiogram [facility] 11/2016 Medical History COPD- [facility] Pul: Alicia Savici Medical History secondary hyperparathyroidism Medical History anemia of chronic disease Medical History anxiety Medical History obesity Medical History PRABHJOT (intolerant of BiPAP)- [facility] Medical History Ragadenosine Nuclear Stress @ [facility] 11/2016 - probably normal, no ischemia or [...] History Vocal cord dysfunction- referred to ENT [facility] 09/10 Medical History diffuse fibrofatty infiltration liver. Medical History Arthritis Medical History Back pain/Neck pain- [facility] Medical History MRSA 2007 [facility] Medical History KIDNEY STONE Surgical History c-sections 1977, 1985 Surgical History lumbar discectomy 1979, 1990 Surgical History breast bx - fibrocystic 04/2000 Surgical History colonoscopy 2001 Surgical History hysterectomy ([facility]) - done for heavy bleeding 2002 Surgical History nasal cautery ([facility]) 2002 Surgical History "eye procedure" ([facility] [place]) 2002 Surgical History ventriculostomy ([facility]) 07/03 Surgical History Fistula for dialysis ([facility] ) Surgical History FNA thyroid nodule- Dr Smith 08/09 Surgical History Colonoscopy 04/24/14 - [facility] Surgical History 4 teeth pulled -01/2017 Surgical History Ureteroscopy (left) with stent placement 06/2018 Surgical History Cystoscopy with L stent removal 9 Hospitalization History interventricular bleed ([facility]) 200 8 Hospitalization History concern for re-bleed (negative) at [facility] 2009 Hospitalization History weakness/back pain 03/2010 Hospitalization History Lower Abd Pain/constipation ([facility]) Hospitalization History pneumonia 07/25-07/31/16 Hospitalization History Influenza 10/20/2017 Hospitalization History acute diverticulitus 08/01/2018-07/27 Hospitalization History dizzyness 11/2018 Hospitalization History Shortness of breath - [facility] 01/2019 Hospitalization History Dizziness ([facility]) 07/2019 Goals Section No Information Health Concerns No Information MEDICAL EQUIPMENT No Information MENTAL STATUS No Information FUNCTIONAL STATUS No Information ASSESSMENTS Encounter Date Diagnosis Assessment Notes Treatment Notes Treatm ent Clinical Notes Feb, Anxiety state (ICD-10 - F41.1) PLAN OF TREATMENT Medication Medication Name Sig Start Date Stop Date oxyCODONE-Acetaminophen 5-325 MG 1 tablet as needed Or ally every 8 hrs for severe pain (ps 8-10) MDD 3 tabs for 28 day(s) Feb, Metoprolol Tartrate 50 MG 1 tablet with food Orally Twice a day for 30 days Jul, HYDROcodone-Acetaminophen 5-325 MG 1 tablet as needed Orally twice daily as needed;MDD:2 for 28 days November, diazePAM 2 MG 2 tablet as needed Orally bid as needed, MDD 8 mg for 28 day(s) Feb, Next Appt Details Provider Name:Aiden Nieves, 2020-11-0 5 01:15:00 PM, [address] [facility], , [place], [address], Insurance Providers Payer Name Payer Address Payer Phone Insured Name Patient Relati onship to Insured Coverage Start Date Coverage End Date MEDICARE Part A and B [address] [facility] [id number] JOSE ROGERS self MEDICAID [employer] [address] [facility] [id number] JOSE ROGERS self
--- OUTSIDE RECORDS SUMMARY | 2021-06-04 05:20 | CCD ---
Author Author [facility] Organization [facility] Address Unknown Phone Unavailable Care Team Providers Care Teaching Artist Name Role Phone Aiden Nieves Unavailable PROBLEMS Type Condition ICD9-CM Code VVD69-TR Code Onset Dates Condition S tatus W/U Status Risk SNOMED Code Notes Problem Chronic diastolic heart failure I50.32 Active confi rmed 521626688 Problem Hypertensive chronic kidney disease, stage 5 chronic kidney disease or end stage renal disease I12.0 Active confirmed 779632 06 Problem Pulmonary emphysema, unspecified emphysema type J4 3.9 Active confirmed 57830020 Problem 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 0 Active confirmed 70465775 Problem Localized osteoarthritis of left knee M17.12 Ac tive confirmed 970588141 Problem Vitamin D deficiency E55.9 Active confirmed 10144917 Problem Pulmonary nodule R91.1 Active confirmed 309 547075 Problem Back pain, lumbosacral M54.5 Active confirmed 506100145 Problem Low back pain M54.5 Active confirmed 117539 007 Problem Chronic obstructive pulmonary disease J44.9 Ac tive confirmed 44073138 Problem Mucopurulent chronic bronchitis J41.1 Active confi rmed 71554594 Problem Sacroiliitis, not elsewhere classified M46.1 A ctive confirmed 897727646 Problem Other chronic pain G89.29 Active confirmed 8 2952639 Problem Mixed hyperlipidemia E78.2 Active confirmed 416514322 Problem Pneumonia due to infectious organism, unspecified laterality, unspecified part of lung J18.9 Active confirmed 30379 2009 Problem DM renal manif type II E11.29 Active confirmed 50549733 Problem Cervical spondylolysis M43.02 Active confirmed 258538057 Problem Chronic kidney disease, stage V N18.5 Active confi rmed 133319763 Problem 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 Active confirme d 951593053 Problem Atrial flutter I48.92 Active confirmed 40480 00 Problem COPD exacerbation J44.1 Active confirmed 19 6118244 Problem Esophageal reflux K21.9 Active confirmed 23 2328586 Problem Myalgia M79.1 Active confirmed 12704931 Problem Renal dialysis status Z99.2 Active confirmed 527531457 Problem Kidney stone N20.0 Active confirmed 5367859 7 Problem Constipation, unspecified constipation type K59.00 Active confirmed 71024208 Problem Osteoarthritis of both knees, unspecified osteoarthritis t ype M17.0 Active confirmed 854005086 Problem Thyroid nodule E04.1 Active confirmed 80101 5005 Problem Spondylosis without myelopathy or radiculopathy, lumbosacral region M47.817 Active confirmed 81176809 Problem DM w/o complication type II E11.9 Active confirmed 707565440 Problem Avascular necrosis of medial 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 Active confirmed 972233881 Problem Chronic kidney disease, unspecified N18.9 Acti ve confirmed 872817787 Problem Anxiety state F41.1 Active confirmed 327201 003 Problem LAYNE (nonalcoholic steatohepatitis) K75.81 Acti ve confirmed 028317811 Problem Spondylosis without myelopathy or radiculopathy, lumbar region M47.816 Active confirmed 30839091 Problem Hypoxemia R09.02 Active confirmed 814882990 Problem Pulmonary nodule, left R91.1 Active confirmed 147924917 Problem Frequent falls R29.6 Active confirmed 28507 2002 Problem Hyperparathyroidism E21.3 Active confirmed 76106691 Problem Chronic atrial fibrillation I48.2 Active confirmed 834416792 Problem Hypocalcemia E83.51 Active confirmed 1862189 ALLERGIES Allergen (clinical drug ingredient) Drug/Non Drug Allergy do cumented on EMR Reaction Allergy Type Onset Date Status gatifloxacin Gatifloxacin([facility] Code:[address]-22) Anaphylaxis Drug Al lergy Active tequin Anaphylaxis Non Drug Allergy Active azithromycin Azithromycin([facility] Code:[address]-08) dys pnea, face and lips swelling and tingling - seen in the ER 07/2016 Drug Allergy Active ENCOUNTERS from 1955 to 2021-04-03 Encounter Location Date Provider Diagnosis [place] [id number] [facility] [phone] [place] [address] Mar, 2021 Aiden Nieves IMMUNIZATIONS Vaccine Route Administration Date [...] School Language: Question Answer Notes Languages spoken: Polish [facility]: Question Answer Notes [facility] 21 [employer]ai No restoration beliefs that would impact health care. Sexual [...] 62 in. Wt: 176.8 lb; Medicare # [id number] Medicaid #: [id number] Unknown Physical Therapy [...] E11.29) for 90 days Aug, Unknown Tiotropium [place]-Olodaterol 2.5-2.5 MCG/ACT 2 puffs Inhalation On a [...] Information RESULTS No Results REASON FOR VISIT hydrocodone MEDICAL (GENERAL) HISTORY Type Description Date Medical History DM II with nephropathy, goal HBA1c < 7.5 Medical History Stage V CKD (on dialysis with [facility]) Medical History atrial flutter (no anticoagu lation b/c of bleed - managed by Dae). Medical History h/o intraventricular bleed r elated to Coumadin ([facility]) 06/03- Previously followed by Dr Short Medical History HTN/HHD Medical History chronic diastolic heart fail ure (grade 1) - last echocardiogram [facility] 11/2016 Medical History COPD- [facility]: Alicia Savici Medical History secondary hyperparathyroidism Medical History anemia of chronic disease Medical History anxiety Medical History obesity Medical History PRABHJOT (intolerant of BiPAP)- [facility] Medical History Ragadenosine Nuclear Stress @ [facility] 11/2016 - probably normal, no ischemia or [...] History Vocal cord dysfunction- referred to ENT [facility] 09/10 Medical History diffuse fibrofatty infiltration liver. Medical History Arthritis Medical History Back pain/Neck pain- [facility] Medical History MRSA 2007 [facility] Medical History KIDNEY STONE Surgical History c-sections 19771985 Surgical History lumbar discectomy 1990 Surgical History breast bx - fibrocystic 04/2000 Surgical History colonoscopy 2001 Surgical History hysterectomy ([facility]) - done for heavy bleeding 2002 Surgical History nasal cautery ([facility]) 2002 Surgical History "eye procedure" ([facility] [place]) 2002 Surgical History ventriculostomy ([facility]) 07/03 Surgical History Fistula for dialysis ([facility] ) Surgical History FNA thyroid nodule- Dr Smith 08/09 Surgical History Colonoscopy 04/24/14 - [facility] Surgical History 4 teeth pulled -01/2017 Surgical History Ureteroscopy (left) with stent placement 06/2018 Surgical History Cystoscopy with L stent removal 9 Hospitalization History interventricular bleed ([facility]) 200 8 [facility] Hospitalization History weakness/back pain 03/2010 Hospitalization History Lower Abd Pain/constipation ([facility]) Hospitalization History pneumonia 07/25-07/31/16 Hospitalization History Influenza 10/20/2017 Hospitalization History acute diverticulitus 08/01/2018-07/27 Hospitalization History dizzyness 11/2018 Hospitalization History Shortness of breath - AMA 01/2019 Hospitalization History Dizziness ([facility]) 07/2019 Goals Section No Information Health Concerns No Information MEDICAL EQUIPMENT No Information MENTAL STATUS No Information FUNCTIONAL STATUS No Information ASSESSMENTS No Information PLAN OF TREATMENT Medication Medication Name Sig Start Date Stop Date HYDROcodone-Acetaminophen 5-325 MG 1 tablet as needed Orally twice daily as needed;MDD:2 for 28 days November, Next Appt Details Provider Name:Aiden Nieves, 2020-11-0 5 01:15:00 PM, [address] [facility], , [place], [address], Insurance Providers Payer Name Payer Address Payer Phone Insured Name Patient Relati onship to Insured Coverage Start Date Coverage End Date MEDICAID [employer] [address] [facility] [facility] [id number] [phone] JOSE ROGERS MEDICARE Part A and B [address] [facility] [id number] JOSE ROGERS
--- OUTSIDE RECORDS SUMMARY | 2021-06-04 05:21 | CCD ---
Author Author [facility] Organization [facility] Address Unknown Phone Unavailable Care Team Providers Care Assembler Molded Frames Name Role Phone Levy Munoz MD Unavailable Unavailable Levy Munoz MD Unavailable Unavailable Levy Munoz MD Unavailable Unavailable Levy Munoz MD Unavailable Unavailable Levy Munoz MD Unavailable Unavailable Levy Munoz MD Unavailable Unavailable Levy Munoz MD Unavailable Unavailable Levy Munoz MD Unavailable Unavailable Levy Munoz MD Unavailable Unavailable Levy Munoz MD Unavailable Unavailable Levy Munoz MD Unavailable Unavailable Levy Munoz MD Unavailable Unavailable Levy Munoz MD Unavailable Unavailable Levy Munoz MD Unavailable Unavailable Greenky, S Lucio MD [...] S Lucio MD Unavailable Unavailable Greenky, S Luico MD Unavailable Unavailable Greenky, S Lucio MD Unavailable Unavailable Greenky, S Lucio MD Unavailable Unavailable Greenky, S Lucio MD Unavailable Unavailable Greenky, S Lucio MD Unavailable Unavailable Greenky, S Lucio MD Unavailable Unavailable Greenky, S Lucio MD Unavailable Unavailable Greenky, S Lcuio MD Unavailable Unavailable Greenky, S Lucio MD [...] Unavailable Greenky, S Lucio MD Unavailable Unavailable SAVICI, Lamont RIDGE MD Unavailable Unavailable SAVICI, Lamont SABILLON MD Unavailable Unavailable SAVICI, Lamont SABILLON MD Unavailable Unavailable SAVICI, Lamont SABILLON MD Unavailable Unavailable SAVICI, A RIDGE MD Unavailable Unavailable SAVICI, Lamont SABILLON MD Unavailable Unavailable SAVICI, Lamont SABILLON MD Unavailable Unavailable SAVICI, Lamont SABILLON MD Unavailable Unavailable SAVICI, Lamont SABILLON MD Unavailable Unavailable SAVICI, Lamont SABILLON MD Unavailable Unavailable SAVICI, Lamont SABILLON MD Unavailable Unavailable SAVICI, A RIDGE MD Unavailable Unavailable SAVICI, Lamont BARRIOSA MD Unavailable Unavailable SAVICI, Lamont BARRIOSA MD Unavailable Unavailable SAVICI, Lamont BARRIOSA MD Unavailable Unavailable SAVICI, Lamont BARRIOSA MD Unavailable Unavailable SAVICI, A RIDGE MD Unavailable Unavailable SAVICI, Lamont BARRIOSA MD Unavailable Unavailable SAVICI, A RIDGE MD Unavailable Unavailable SAVICI, Lamont BARRIOSA MD Unavailable Unavailable SAVICI, Lamont BARRIOSA MD Unavailable Unavailable SAVICI, A RIDGE MD Unavailable Unavailable SAVICI, Lamont RIDGE MD Unavailable Unavailable SAVICI, A RIDGE MD Unavailable Unavailable SAVICI, A RIDGE MD Unavailable Unavailable SAVICI, A RIDGE MD Unavailable Unavailable SAVICI, A RIDGE MD Unavailable Unavailable SAVICI, A RIDGE MD Unavailable Unavailable SAVICI, A RIDGE MD Unavailable Unavailable SAVICI, A RIDGE MD Unavailable Unavailable SAVICI, A RIDGE MD Unavailable Unavailable SAVICI, A RIDGE MD Unavailable Unavailable SAVICI, A RIDGE MD Unavailable Unavailable SAVICI, A RIDGE MD Unavailable Unavailable SAVICI, A RIDGE MD Unavailable Unavailable SAVICI, A RIDGE MD Unavailable Unavailable SAVICI, A RIDGE MD Unavailable Unavailable SAVICI, A RIDGE MD Unavailable Unavailable SAVICI, A RIDGE TAVERA Unavailable Unavailable SAVICI, A RIDGE TAVERA Unavailable Unavailable SAVICI, A RIDGE TAVERA Unavailable Unavailable SAVICI, A RIDGE TAVERA Unavailable Unavailable SAVICI, A RIDGE TAVERA Unavailable Unavailable SAVICI, A RIDGE TAVERA Unavailable Unavailable SAVICI, A RIDGE TAVERA Unavailable Unavailable SAVICI, A RIDGE TAVERA Unavailable Unavailable SAVICI, A RIDGE TAVERA Unavailable Unavailable SAVICI, A RIDGE TAVERA Unavailable Unavailable SAVICI, A RIDGE TAVERA Unavailable Unavailable SAVICI, A RIDGE TAVERA Unavailable Unavailable SAVICI, A RIDGE TAVERA Unavailable Unavailable SAVICI, A RIDGE TAVERA Unavailable Unavailable SAVICI, A RIDGE TAVERA Unavailable Unavailable SAVICI, A RIDGE TAVERA Unavailable Unavailable SAVICI, A RIDGE TAVERA Unavailable Unavailable SAVICI, A RIDGE TVAERA Unavailable Unavailable Fahsel ORGANIC SECTION TECHNICAL LEAD, ORGANIC SECTION TECHNICAL LEAD L Stacy ORGANIC SECTION TECHNICAL LEAD Unavailable + 24 Fahsel ORGANIC SECTION TECHNICAL LEAD, ORGANIC SECTION TECHNICAL LEAD L Stacy ORGANIC SECTION TECHNICAL LEAD Unavailable + 24 Fahsel ORGANIC SECTION TECHNICAL LEAD, ORGANIC SECTION TECHNICAL LEAD L Stacy ORGANIC SECTION TECHNICAL LEAD Unavailable + 24 Fahsel ORGANIC SECTION TECHNICAL LEAD, ORGANIC SECTION TECHNICAL LEAD L Stacy ORGANIC SECTION TECHNICAL LEAD Unavailable + 24 Fahsel ORGANIC SECTION TECHNICAL LEAD, ORGANIC SECTION TECHNICAL LEAD L Stacy ORGANIC SECTION TECHNICAL LEAD Unavailable + 24 Fahsel ORGANIC SECTION TECHNICAL LEAD, ORGANIC SECTION TECHNICAL LEAD L Stacy ORGANIC SECTION TECHNICAL LEAD Unavailable + 24 Fahsel ORGANIC SECTION TECHNICAL LEAD, ORGANIC SECTION TECHNICAL LEAD L Stacy ORGANIC SECTION TECHNICAL LEAD Unavailable + 24 Fahsel ORGANIC SECTION TECHNICAL LEAD, ORGANIC SECTION TECHNICAL LEAD L Stacy ORGANIC SECTION TECHNICAL LEAD Unavailable + 24 Fahsel ORGANIC SECTION TECHNICAL LEAD, ORGANIC SECTION TECHNICAL LEAD L Stacy ORGANIC SECTION TECHNICAL LEAD Unavailable + 24 Fahsel ORGANIC SECTION TECHNICAL LEAD, ORGANIC SECTION TECHNICAL LEAD L Stacy ORGANIC SECTION TECHNICAL LEAD Unavailable + 24 Fahsel ORGANIC SECTION TECHNICAL LEAD, ORGANIC SECTION TECHNICAL LEAD L Stacy ORGANIC SECTION TECHNICAL LEAD Unavailable + 24 Fahsel ORGANIC SECTION TECHNICAL LEAD, ORGANIC SECTION TECHNICAL LEAD L Stacy ORGANIC SECTION TECHNICAL LEAD Unavailable + 24 Fahsel ORGANIC SECTION TECHNICAL LEAD, ORGANIC SECTION TECHNICAL LEAD L Stacy ORGANIC SECTION TECHNICAL LEAD Unavailable + 24 Fahsel ORGANIC SECTION TECHNICAL LEAD, ORGANIC SECTION TECHNICAL LEAD L Stacy ORGANIC SECTION TECHNICAL LEAD Unavailable + 24 Fahsel ORGANIC SECTION TECHNICAL LEAD, ORGANIC SECTION TECHNICAL LEAD L Stacy ORGANIC SECTION TECHNICAL LEAD Unavailable + 24 Fahsel ORGANIC SECTION TECHNICAL LEAD, ORGANIC SECTION TECHNICAL LEAD L Stacy ORGANIC SECTION TECHNICAL LEAD Unavailable + 24 Fael ORGANIC SECTION TECHNICAL LEAD, ORGANIC SECTION TECHNICAL LEAD L Stacy ORGANIC SECTION TECHNICAL LEAD Unavailable + 24 Fahsel ORGANIC SECTION TECHNICAL LEAD, ORGANIC SECTION TECHNICAL LEAD L Stacy ORGANIC SECTION TECHNICAL LEAD Unavailable + 24 Fahsel ORGANIC SECTION TECHNICAL LEAD, ORGANIC SECTION TECHNICAL LEAD L Stacy ORGANIC SECTION TECHNICAL LEAD Unavailable + 24 Fahsel ORGANIC SECTION TECHNICAL LEAD, ORGANIC SECTION TECHNICAL LEAD L Stacy ORGANIC SECTION TECHNICAL LEAD Unavailable + 24 Fael ORGANIC SECTION TECHNICAL LEAD, ORGANIC SECTION TECHNICAL LEAD L Stacy ORGANIC SECTION TECHNICAL LEAD Unavailable + 24 Fael ORGANIC SECTION TECHNICAL LEAD, ORGANIC SECTION TECHNICAL LEAD L Stacy ORGANIC SECTION TECHNICAL LEAD Unavailable + 24 Fahsel ORGANIC SECTION TECHNICAL LEAD, ORGANIC SECTION TECHNICAL LEAD L Stacy ORGANIC SECTION TECHNICAL LEAD Unavailable + 24 ABDULKADIR REED MD Unavailable Unavailable ABDULKADIR REED MD Unavailable Unavailable Fish, Regine Diaz MD Unavailable Unavailable Fish, Regine Diaz MD Unavailable Unavailable Fish, Regine Diaz MD Unavailable Unavailable Fish, Regine Diaz MD Unavailable Unavailable Fish, Regine Diaz MD Unavailable Unavailable Fish, Regine Daiz MD Unavailable Unavailable Fish, Regine Diaz MD [...] Unavailable Unavailable Regine Barboza MD Unavailable Unavailable Jabari B Emily TAVERA Unavailable Unavailable Jabari B Emily TAVERA Unavailable Unavailable Jabari B Emily TAVERA Unavailable Unavailable Regine Barboza MD Unavailable Unavailable Regine Barboza MD Unavailable Unavailable Roman Nieves MD Unavailable [...] Unavailable Unavailable Roman Nieves MD Unavailable Unavailable Lequire, Roman Wolfe MD Unavailable Unavailable Lequire, Roman Wolfe MD Unavailable Unavailable Lizbeth, Roman Wolfe MD Unavailable Unavailable Lizbeth, Roman Wolfe MD Unavailable Unavailable Lequire, Roman Wolfe MD Unavailable Unavailable Lequire, Roman Wolfe MD Unavailable Unavailable Lizbeth, Roman Wolfe MD Unavailable Unavailable Lequire, Roman Wolfe MD Unavailable Unavailable Lizbeth, Roman Wolfe MD Unavailable Unavailable Lequire, Roman Wolfe MD Unavailable Unavailable Lequire, Roman Wolfe MD Unavailable Unavailable Lizbeth, Roman Wolfe MD Unavailable Unavailable Lizbeth, Roman Wolfe MD Unavailable Unavailable Lizbeth, Roman Wolfe MD Unavailable Unavailable Lizbeth, Roman Wolfe MD Unavailable Unavailable Lequire, Roman Wolfe MD Unavailable Unavailable FAHSSandy QUIROZISTIN Unavailable Unavailable Duca, A Vicky ORGANIC SECTION TECHNICAL LEAD-C Unavailable Unavailable Duca, A Vicky ORGANIC SECTION TECHNICAL LEAD-C Unavailable Unavailable Duca, A Vicky ORGANIC SECTION TECHNICAL LEAD-C Unavailable Unavailable Duca, A Vicky ORGANIC SECTION TECHNICAL LEAD-C Unavailable Unavailable Duca, A Vicky ORGANIC SECTION TECHNICAL LEAD-C Unavailable Unavailable Duca, A Vicky ORGANIC SECTION TECHNICAL LEAD-C Unavailable Unavailable Duca, A Vicky ORGANIC SECTION TECHNICAL LEAD-C Unavailable Unavailable Duca, A Vicky ORGANIC SECTION TECHNICAL LEAD-C Unavailable Unavailable Duca, A Vicky ORGANIC SECTION TECHNICAL LEAD-C Unavailable Unavailable Duca, A Vicky ORGANIC SECTION TECHNICAL LEAD-C Unavailable Unavailable Duca, A Vicky ORGANIC SECTION TECHNICAL LEAD-C Unavailable Unavailable Duca, A Vicky ORGANIC SECTION TECHNICAL LEAD-C Unavailable Unavailable Duca, A Vicky ORGANIC SECTION TECHNICAL LEAD-C Unavailable Unavailable Duca, A Vicky ORGANIC SECTION TECHNICAL LEAD-C Unavailable Unavailable Duca, A Vicky ORGANIC SECTION TECHNICAL LEAD-C Unavailable Unavailable Duca, A Vicky ORGANIC SECTION TECHNICAL LEAD-C Unavailable Unavailable Duca, A Vicky ORGANIC SECTION TECHNICAL LEAD-C Unavailable Unavailable Duca, A Vicky ORGANIC SECTION TECHNICAL LEAD-C Unavailable Unavailable Duca, A Vicky ORGANIC SECTION TECHNICAL LEAD-C Unavailable Unavailable Duca, A Vicky ORGANIC SECTION TECHNICAL LEAD-C Unavailable Unavailable Duca, A Vicky ORGANIC SECTION TECHNICAL LEAD-C Unavailable Unavailable Duca, A Vicky ORGANIC SECTION TECHNICAL LEAD-C Unavailable Unavailable Duca, A Vicky ORGANIC SECTION TECHNICAL LEAD-C Unavailable Unavailable Duca, A Vicky ORGANIC SECTION TECHNICAL LEAD-C Unavailable Unavailable Duca, A Vicky ORGANIC SECTION TECHNICAL LEAD-C Unavailable Unavailable Duca, A Vicky ORGANIC SECTION TECHNICAL LEAD-C Unavailable Unavailable Duca, A Vicky ORGANIC SECTION TECHNICAL LEAD-C Unavailable Unavailable Duca, A Vicky ORGANIC SECTION TECHNICAL LEAD-C Unavailable Unavailable Duca, A Vicky ORGANIC SECTION TECHNICAL LEAD-C Unavailable Unavailable Duca, A Vicky ORGANIC SECTION TECHNICAL LEAD-C Unavailable Unavailable Duca, A Vicky ORGANIC SECTION TECHNICAL LEAD-C Unavailable Unavailable Duca, A Vicky ORGANIC SECTION TECHNICAL LEAD-C Unavailable Unavailable Duca, A Vicky ORGANIC SECTION TECHNICAL LEAD-C Unavailable Unavailable Duca, A Vicky ORGANIC SECTION TECHNICAL LEAD-C Unavailable Unavailable Duca, A Vicky ORGANIC SECTION TECHNICAL LEAD-C Unavailable Unavailable Duca, A Vicky ORGANIC SECTION TECHNICAL LEAD-C Unavailable Unavailable Duca, A Vicky ORGANIC SECTION TECHNICAL LEAD-C Unavailable Unavailable Re-disclosure Warning The records that [...] is protected by Article 27-F of the [facility] Public Health law. If you continue you may have access to information: Regarding HIV / AIDS; Provided by facilities licensed or operated by the [facility] Office of Mental Health; or Provided by the [facility] Office for People With Developmental Disabilities. If such information is present, then the following [facility] mandated warning applies: This information has been [...] law may result in a fine or fpc sentence or both. A general authorization for the release of medical or other information is NOT sufficient authorization for further disc losure. Family History Family Member Name Family Member Gender Family Member Status Date o f Status Description Data Source(s) Unknown Unknown Problem MEDENT ([facility]) Unknown Unknown Problem MEDENT ([facility] [facility]) Unknown Female Problem MEDENT ([facility]) Encounters Encounter Providers Location Date Indications Data Source(s ) Outpatient Referrer: STACY CORDERO 04/16/2022 12:00:00 AM [facility] Outpatient Attender: Vicky SHEIKH 04/16/2022 12:00:00 AM EDT [facility] Unknown [address] [facility] [address] [place] [address] 05/21/2021 12:00:00 AM EDT eCW1 ([facility]) Office Visit Attender: ABDULKADIR Smith/Jessica/Clem/ Reindl 05/20/2021 02:20:00 PM EDT MEDENT ([facility], ) Unknown [address] [facility] [address] [facility] [address] 05/20/2021 12:00:00 AM EDT eCW1 ([facility]) Office Visit Attender: ABDULKADIR Smith/Jessica/Clem/ Reindl 05/08/2021 09:20:00 AM EDT [facility] ([facility]) Unknown [address] [address] [place] [address] 05/01/2021 12:00:00 AM EDT eCW1 ([facility]) Unknown [address] [facility] [address] [facility] [address] 04/30/2021 12:00:00 AM EDT eCW1 ([facility]) Office Visit Attender: ABDULKADIR Smith/Jessica/Clem/ Reindl 04/17/2021 09:20:00 AM EDT [facility] Out[facility] Attender: STACY Minor nder: ORQUIDEA Cordero NPReferrer: STACY CORDERO [id number] 04/15/2021 12:00:00 AM EDT - 04/15/2021 08:53:43 AM [facility] Outpatient Referrer: STACY CORDERO 04/15/2021 12:00 :00 AM EDT Encounter for screening mammogram for malignant neoplasm of breast [facility] Encounter for screening mammogram for ma lignant neoplasm of breast Outpatient Referrer: STACY CORDERO 04/15/2021 12:00 :00 AM EDT Solitary cyst of right breast [facility] Solitary cyst of right breast Outpatient Attender: ABDULKADIR Smith/Jessica/Clem/ Reindl 04/03/2021 10:00:00 AM EDT [facility] ([facility] Unknown [address] [facility] [address] [place] [address] 04/02/2021 12:00:00 AM EDT eCW1 ([facility]) Outpatient Attender: RIDGE BAKER MDReferrer: Aiden Nieves MD [id number] 03/20/2021 12:00:00 AM EDT - 03/20/2021 03:32:54 PM [facility] Outpatient Attender: ORQUIDEA Cordero NPAttender: STACY CORDEROReferrer: STACY CORDERO 03/08/2021 12:00:00 AM [facility] Outpatient Referrer: STACY CORDERO 03/08/2021 12:00:00 AM [facility] Outpatient Referrer: STACY CORDERO 03/08/2021 12:00:00 AM [facility] Outpatient Attender: STACY CORDERO 03/07/2021 12:00:00 AM [facility] Outpatient Referrer: STACY CORDERO 03/07/2021 12:00:00 AM [facility] Outpatient Referrer: STACY CORDERO 03/07/2021 12:00:00 AM [facility] Unknown [address] [facility] [address] [place] [address] 03/06/2021 12:00:00 AM EDT eCW1 ([facility]) Outpatient Attender: RIDGE BAKER MD 03/05/2021 12:00:00 AM [facility] Unknown [address] [facility] [address] [place] [address] 03/04/2021 12:00:00 AM EDT eCW1 ([facility]) Unknown [address] [facility] [facility] [address] [facility] [address] 03/01/2021 12:00:00 AM EDT eCW1 ([facility]) Unknown [address] [facility] [facility] [address] [facility] [address] 03/01/2021 12:00:00 AM EDT eCW1 ([facility]) Unknown [address] [facility] [facility] [address] [facility] [address] 02/27/2021 12:00:00 AM EDT eCW1 ([facility]) Unknown [address] [facility] [facility] [facility] [address] 02/11/2021 12:00:00 AM EDT eCW1 ([facility]) Unknown [address] [facility] [address] [facility] [address] 02/11/2021 12:00:00 AM EDT eCW1 ([facility]) Unknown [address] [facility] [address] [facility] [address] 01/09/2021 12:00:00 AM EDT eCW1 ([facility]) Unknown [address] [facility] [address] [facility] [address] 01/09/2021 12:00:00 AM EDT eCW1 ([facility]) Unknown [address] [facility] [address] [facility] [address] 12/31/2020 12:00:00 AM EDT eCW1 ([facility]) Unknown [address] [facility] [address] [facility] [address] 12/13/2020 12:00:00 AM EDT eCW1 ([facility]) Unknown [address] [facility] [address] [facility] [address] 11/23/2020 12:00:00 AM EDT eCW1 ([facility]) Unknown [address] [facility] [address] [facility] [address] 11/15/2020 12:00:00 AM EDT eCW1 ([facility]) Unknown [address] [facility] [address] [facility] [address] 11/14/2020 12:00:00 AM EDT eCW1 ([facility]) Unknown [address] [facility] [address] [facility] [address] 11/12/2020 12:00:00 AM EDT eCW1 ([facility]) Unknown [address] [facility] [address] [facility] [address] 10/25/2020 12:00:00 AM EDT eCW1 ([facility]) Unknown [address] [facility] [address] [facility] [address] 10/24/2020 12:00:00 AM EDT eCW1 ([facility]) Unknown [address] [facility] [address] [facility] [address] 10/24/2020 12:00:00 AM EDT eCW1 ([facility]) Outpatient Attender: Emily Barboza MD Physical Therapy 10/10 02:15:00 PM EDT [facility]ENT ([facility]) Unknown [address] [facility] [place] [address] 10/05/2020 12:00:00 AM EST eCW1 ([facility]) Unknown [address] [facility] [address] [facility] [address] 10/01/2020 12:00:00 AM EST eCW1 ([facility]) Unknown [address] [facility] [address] [facility] [address] 09/28/2020 12:00:00 AM EST eCW1 ([facility]) Unknown [address] [facility] [address] [facility] [address] 09/24/2020 12:00:00 AM EST eCW1 ([facility]) Unknown [address] [facility] [address] [facility] [address] 09/20/2020 12:00:00 AM EST eCW1 ([facility]) Unknown [address] [facility] [address] [facility] [address] 09/14/2020 12:00:00 AM EST eCW1 ([facility]) Unknown [address] [facility] [address] [facility] [address] 09/12/2020 12:00:00 AM EST eCW1 ([facility]) Outpatient Attender: STACY CORDEROReferrer: STACY CORDERO [id number] 08/31/2020 12:00:00 AM EST - 08/31/2020 11:51:33 AM EST Encounter for screening mammogram for malignant neoplasm of breast [facility] Encounter for screening mammogram for ma lignant neoplasm of breast Outpatient Referrer: STACY CORDERO 08/31/2020 12:00 :00 AM EST Mammographic calcification found on diagnostic imaging of breast [facility] Mammographic calcification found on diag nostic imaging of breast Outpatient Referrer: STACY CORDERO 08/31/2020 12:00 :00 AM EST Unspecified lump in the right breast, unspecified quadrant [facility] Unspecified lump in the right breast, un specified quadrant Unknown [address] [facility] [address] [place] [address] 08/27/2020 12:00:00 AM EST eCW1 ([facility]) Unknown [address] [facility] [place] [address] 08/23/2020 12:00:00 AM EST eCW1 ([facility]) Outpatient Attender: STACY CORDEROReferrer: STACY CORDERO 08/08/2020 12:00:00 AM [facility] Outpatient Referrer: STACY CORDERO 08/08/2020 12:00:00 AM [facility] Outpatient Referrer: STACY CORDERO 08/08/2020 12:00:00 AM [facility] Outpatient Attender: Lucio Munoz MDReferrer: Aiden Nieves MD 08/01/2020 04:00:01 PM EST [facility] Recurring Patient Attender: Lucio Munoz MDReferrer: Aiden Gilmore dd, MD 08/01/2020 12:19:42 PM EST [facility] Unknown [address] [facility] [address] [facility] [address] 07/30/2020 12:00:00 AM EST eCW1 ([facility]) Unknown [address] [facility] [address] [place] [address] 07/23/2020 12:00:00 AM EST eCW1 ([facility]) Unknown [address] [facility] [address] [facility] [address] 07/16/2020 12:00:00 AM EST eCW1 ([facility]) Unknown [address] [facility] [address] [facility] [address] 06/06/2020 12:00:00 AM EST eCW1 ([facility]) Unknown [address] [facility] [address] [facility] [address] 06/01/2020 12:00:00 AM EST eCW1 ([facility]) Outpatient Referrer: STACY CORDERO 05/28/2020 12:00:00 AM [facility] Outpatient Attender: STACY CORDEROReferrer: STACY CORDERO 05/28/2020 12:00:00 AM [facility] Unknown [address] [facility] [address] [facility] [address] 05/24/2020 12:00:00 AM EDT eCW1 ([facility]) Unknown [address] [facility] [address] [facility] [address] 05/23/2020 12:00:00 AM EDT eCW1 ([facility]) Unknown [address] [facility] [address] [facility] [address] 05/17/2020 12:00:00 AM EDT eCW1 ([facility]) Unknown [address] [facility] [address] [facility] [address] 05/14/2020 12:00:00 AM EDT eCW1 ([facility]) Outpatient Attender: STACY CORDEROReferrer: STACY CORDERO 05/11/2020 12:00:00 AM [facility] Outpatient Referrer: STACY CORDERO 05/11/2020 12:00:00 AM [facility] Unknown [address] [facility] [address] [facility] [address] 05/01/2020 12:00:00 AM EDT [facility]CW[facility] Unknown [address] [facility] [address] [facility] [address] 04/26/2020 12:00:00 AM EDT eCW1 ([facility]) Outpatient [id number] 04/17/2020 10:46:52 AM EDT Health system Outpatient Referrer: STACY CORDERO 04/09/2020 12:00:00 AM EDT [facility] Outpatient Attender: STACY CORDERO 04/09/2020 12:00:00 AM EDT [facility] Immunizations Vaccine Date Status Description Data Source(s) COVID-19 VACCINE Moderna 10/20/2020 12:00:00 AM EDT completed [facility] Vaccine Series Complete: YESThis Data wa s Submitted to [facility] Via [employer]. COVID-19 VACCINE Moderna 09/22/2020 12:00:00 AM EST completed [facility] Vaccine Series Complete: NOThis Data was Submitted to [facility] [employer]. Medications Medication Brand Name Start Date Product Form Dose Route Admi nistrative Instructions Pharmacy Instructions Status Indications Reaction Description Data Source(s) Acetaminophen 325 MG / Hydrocodone Bitartrate 5 MG Ora l Tablet 5-325 mg HYDROCODONE/ACETAMINOPHEN 05/22/2021 12:00:00 AM EDT tablet 56 TAKE ONE TABLET BY MOUTH TWICE A DAY NEEDED MAXIMUM DAILY DOSE = 2 TABLETS TAKE ONE TABLET BY MOUTH TWICE A DAY NEEDED MAXIMUM DAILY DOSE = 2 TABLETS SOLD: 05/22/2021 [facility] Acetaminophen 325 MG / Hydrocodone Alayna trate 5 MG Oral Tablet HYDROcodone- Acetaminophen 5-325 MG HYDROcodone-Acetaminophen 5-325 MG 05/21/2021 12:00:00 AM EDT 1.0 {tablet_as_needed} active HYDROcodone-Acetaminophen 5-325 MG eCW1 ([facility]) Rosuvastatin calcium 20 MG Oral Tablet ROSUVASTATIN CALCIUM 05/20/2021 12:00:00 AM EDT tablet 90 TAKE ONE TABLET BY MOUTH AV LY AT BEDTIME TAKE ONE TABLET BY MOUTH DAILY AT BEDTIME SOLD: 05/20/2021 [facility] 40 mg 05/03/2021 12:00:00 AM EDT capsule,delayed release (DR/EC) 90 TAKE 1 CAPSULE BY MOUTH ONCE A DAY TAKE 1 CAPSULE BY MOUTH ONCE A DAY SOLD: 05/03/2021 [facility] Trazodone Hydrochloride 100 MG Oral Tablet TRAZODONE HCL 05/01/2021 12:00:00 AM EDT tablet 30 TAKE ONE TABLET BY MOUTH AV LY AT BEDTIME TAKE ONE TABLET BY MOUTH DAILY AT BEDTIME SOLD: 05/03/2021 [facility] 2 mg 05/01/2021 12:00:00 AM EDT tablet 112 TAKE TWO TABLETS BY MOUTH TWICE A DAY NEEDED MAXIMUM DAILY DOSE = 8MG TAKE TWO TABLETS BY MOUTH TWICE A DAY NEEDED MAXIMUM DAILY DOSE = 8MG SOLD: 05/03/2021 [facility] Diazepam 2 MG Oral Tablet diazePAM 2 MG diazePAM 2 MG 04/30/2021 12:00:00 AM EDT 2.0 {tablet_as_needed} active d iazePAM 2 MG eCW1 (Formerly [facility], [facility]) Diazepam 2 MG Oral Tablet diazePAM 2 MG diazePAM 2 MG 04/30/2021 12:00:00 AM EDT 2.0 {tablet_as_needed} active d iazePAM 2 MG eCW1 (Formerly [facility], [facility]) Diazepam 2 MG Oral Tablet diazePAM 2 MG diazePAM 2 MG 04/30/2021 12:00:00 AM EDT 2.0 {tablet_as_needed} active d iazePAM 2 MG eCW1 (Formerly [facility], [facility]) Diazepam 2 MG Oral Tablet diazePAM 2 MG diazePAM 2 MG 04/30/2021 12:00:00 AM EDT 2.0 {tablet_as_needed} active d iazePAM 2 MG eCW1 (Formerly [facility], [facility]) Acetaminophen 325 MG / Hydrocodone Bitartrate 5 MG Ora l Tablet 5-325 mg HYDROCODONE/ACETAMINOPHEN 04/17/2021 12:00:00 AM EDT tablet 56 TAKE ONE TABLET BY MOUTH TWICE A DAY NEEDED MAXIMUM DAILY DOSE = 2 TABLETS TAKE ONE TABLET BY MOUTH TWICE A DAY NEEDED MAXIMUM DAILY DOSE = 2 TABLETS SOLD: 04/17/2021 [facility] 2 mg 03/02/2021 12:00:00 AM EDT tablet 112 TAKE 2 TABLETS BY MOUTH TWO TIMES A DAY NEEDED MAX 8TABS/DAY TAKE 2 TABLETS BY MOUTH TWO TIMES A DAY NEEDED MAX 8TABS/DAY SOLD: 03/04/2021 [facility] Diazepam 2 MG Oral Tablet diazePAM 2 MG diazePAM 2 MG 03/01/2021 12:00:00 AM EDT 2.0 {tablet_as_needed} active d iazePAM 2 MG eCW1 (Formerly [facility], [facility]) Acetaminophen 325 MG / Oxycodone Hydroch loride 5 MG Oral Tablet oxyCODONE- Acetaminophen 5-325 MG oxyCODONE-Acetaminophen 5-325 MG 03/01/2021 12:00:00 A M EDT 1.0 {tablet_as_needed} suspended oxyCODONE-Acetaminophen 5-325 MG eCW1 (Formerly [facility], [facility]) Acetaminophen 325 MG / Oxycodone Hydroch loride 5 MG Oral Tablet oxyCODONE- Acetaminophen 5-325 MG oxyCODONE-Acetaminophen 5-325 MG 03/01/2021 12:00:00 A M EDT 1.0 {tablet_as_needed} active o xyCODONE-Acetaminophen 5-325 MG eCW1 (Formerly [facility], [facility]) Acetaminophen 325 MG / Oxycodone Hydroch loride 5 MG Oral Tablet oxyCODONE- Acetaminophen 5-325 MG oxyCODONE-Acetaminophen 5-325 MG 03/01/2021 12:00:00 A M EDT 1.0 {tablet_as_needed} suspended oxyCODONE-Acetaminophen 5-325 MG eCW1 (Formerly [facility], [facility]) Acetaminophen 325 MG / Oxycodone Hydroch loride 5 MG Oral Tablet oxyCODONE- Acetaminophen 5-325 MG oxyCODONE-Acetaminophen 5-325 MG 03/01/2021 12:00:00 A M EDT 1.0 {tablet_as_needed} suspended oxyCODONE-Acetaminophen 5-325 MG eCW1 (Formerly [facility], [facility]) Acetaminophen 325 MG / Oxycodone Hydroch loride 5 MG Oral Tablet oxyCODONE- Acetaminophen 5-325 MG oxyCODONE-Acetaminophen 5-325 MG 03/01/2021 12:00:00 A M EDT 1.0 {tablet_as_needed} active o xyCODONE-Acetaminophen 5-325 MG eCW1 (Formerly [facility], [facility]) 5-325 mg 03/01/2021 12:00:00 AM EDT tablet 84 TAKE ONE TABLET BY MOUTH EVERY 8 HOURS NEEDED FOR SEVERE PAIN MAX 3TABS/DAY TAKE ONE TABLET BY MOUTH EVERY 8 HOURS NEEDED FOR SEVERE PAIN MAX 3TABS/DAY SOLD: 03/04/2021 [facility] Diazepam 2 MG Oral Tablet diazePAM 2 MG diazePAM 2 MG 03/01/2021 12:00:00 AM EDT 2.0 {tablet_as_needed} active d iazePAM 2 MG eCW1 (Formerly [facility], [facility]) Acetaminophen 325 MG / Oxycodone Hydroch loride 5 MG Oral Tablet oxyCODONE- Acetaminophen 5-325 MG oxyCODONE-Acetaminophen 5-325 MG 03/01/2021 12:00:00 A M EDT 1.0 {tablet_as_needed} active o xyCODONE-Acetaminophen 5-325 MG eCW1 (Formerly [facility], [facility]) Diazepam 2 MG Oral Tablet diazePAM 2 MG diazePAM 2 MG 03/01/2021 12:00:00 AM EDT 2.0 {tablet_as_needed} active d iazePAM 2 MG eCW1 (Formerly [facility], [facility]) Diazepam 2 MG Oral Tablet diazePAM 2 MG diazePAM 2 MG 03/01/2021 12:00:00 AM EDT 2.0 {tablet_as_needed} active d iazePAM 2 MG eCW1 (Formerly [facility], [facility]) Diazepam 2 MG Oral Tablet diazePAM 2 MG diazePAM 2 MG 03/01/2021 12:00:00 AM EDT 2.0 {tablet_as_needed} active d iazePAM 2 MG eCW1 (Formerly [facility], [facility]) Acetaminophen 325 MG / Oxycodone Hydroch loride 5 MG Oral Tablet oxyCODONE- Acetaminophen 5-325 MG oxyCODONE-Acetaminophen 5-325 MG 03/01/2021 12:00:00 A M EDT 1.0 {tablet_as_needed} active o xyCODONE-Acetaminophen 5-325 MG eCW1 (Formerly [facility], [facility]) Acetaminophen 325 MG / Oxycodone Hydroch loride 5 MG Oral Tablet oxyCODONE- Acetaminophen 5-325 MG oxyCODONE-Acetaminophen 5-325 MG 03/01/2021 12:00:00 A M EDT 1.0 {tablet_as_needed} suspended oxyCODONE-Acetaminophen 5-325 MG eCW1 (Formerly [facility], [facility]) Acetaminophen 325 MG / Oxycodone Hydroch loride 5 MG Oral Tablet oxyCODONE- Acetaminophen 5-325 MG oxyCODONE-Acetaminophen 5-325 MG 03/01/2021 12:00:00 A M EDT 1.0 {tablet_as_needed} suspended oxyCODONE-Acetaminophen 5-325 MG eCW1 (Formerly [facility], [facility]) Acetaminophen 325 MG / Oxycodone Hydroch loride 5 MG Oral Tablet oxyCODONE- Acetaminophen 5-325 MG oxyCODONE-Acetaminophen 5-325 MG 03/01/2021 12:00:00 A M EDT 1.0 {tablet_as_needed} suspended oxyCODONE-Acetaminophen 5-325 MG eCW1 (Formerly [facility], [facility]) Diazepam 2 MG Oral Tablet diazePAM 2 MG diazePAM 2 MG 03/01/2021 12:00:00 AM EDT 2.0 {tablet_as_needed} active d iazePAM 2 MG eCW1 (Formerly [facility], [facility]) 50 mg 02/12/2021 12:00:00 AM EDT tablet 60 TAKE ONE TABLET BY MOUTH TWICE A DAY WITH FOOD TAKE ONE TABLET BY MOUTH TWICE A DAY WITH FOOD SOLD: 02/13/2021 [facility] 50 mg 02/12/2021 12:00:00 AM EDT tablet 60 TAKE ONE TABLET BY MOUTH TWICE A DAY WITH FOOD TAKE ONE TABLET BY MOUTH TWICE A DAY WITH FOOD SOLD: 05/10/2021 [facility] 50 mg 02/12/2021 12:00:00 AM EDT tablet 60 TAKE ONE TABLET BY MOUTH TWICE A DAY WITH FOOD TAKE ONE TABLET BY MOUTH TWICE A DAY WITH FOOD SOLD: 03/30/2021 [facility] 2 mg 12/31/2020 12:00:00 AM EDT tablet 112 TAKE 2 TABLETS BY MOUTH TWICE A DAY NEEDED MAXIMUM DAILY DOSE = 4 TABLETS TAKE 2 TABLETS BY MOUTH TWICE A DAY NEEDED MAXIMUM DAILY DOSE = 4 TABLETS SOLD: 12/31/2020 [facility] Acetaminophen 325 MG / Hydrocodone Bitartrate 5 MG Ora l Tablet 5-325 mg HYDROCODONE/ACETAMINOPHEN 12/20/2020 12:00:00 AM EDT tablet 56 TAKE ONE TABLET BY MOUTH TWO TIMES A DAY NEEDED MAXIMUM DAILY DOSE = 2 TABLETS TAKE ONE TABLET BY MOUTH TWO TIMES A DAY NEEDED MAXIMUM DAILY DOSE = 2 TABLETS SOLD: 12/20/2020 [facility] Acetaminophen 325 MG / Hydrocodone Alayna trate 5 MG Oral Tablet HYDROcodone- Acetaminophen 5-325 MG HYDROcodone-Acetaminophen 5-325 MG 12/19/2020 12:00:00 AM EDT 1.0 {tablet_as_needed} active HYDROcodone-Acetaminophen 5-325 MG eCW1 (Formerly [facility], [facility]) Acetaminophen 325 MG / Hydrocodone Alayna trate 5 MG Oral Tablet HYDROcodone- Acetaminophen 5-325 MG HYDROcodone-Acetaminophen 5-325 MG 12/19/2020 12:00:00 AM EDT 1.0 {tablet_as_needed} active HYDROcodone-Acetaminophen 5-325 MG eCW1 (Formerly [facility], [facility]) Acetaminophen 325 MG / Hydrocodone Alayna trate 5 MG Oral Tablet HYDROcodone- Acetaminophen 5-325 MG HYDROcodone-Acetaminophen 5-325 MG 12/19/2020 12:00:00 AM EDT 1.0 {tablet_as_needed} active HYDROcodone-Acetaminophen 5-325 MG eCW1 (Formerly [facility], [facility]) Acetaminophen 325 MG / Hydrocodone Alayna trate 5 MG Oral Tablet HYDROcodone- Acetaminophen 5-325 MG HYDROcodone-Acetaminophen 5-325 MG 12/19/2020 12:00:00 AM EDT 1.0 {tablet_as_needed} active HYDROcodone-Acetaminophen 5-325 MG eCW1 (Formerly [facility], [facility]) Acetaminophen 325 MG / Hydrocodone Alayna trate 5 MG Oral Tablet HYDROcodone- Acetaminophen 5-325 MG HYDROcodone-Acetaminophen 5-325 MG 12/19/2020 12:00:00 AM EDT 1.0 {tablet_as_needed} active HYDROcodone-Acetaminophen 5-325 MG eCW1 (Formerly [facility], [facility]) Acetaminophen 325 MG / Hydrocodone Alayna trate 5 MG Oral Tablet HYDROcodone- Acetaminophen 5-325 MG HYDROcodone-Acetaminophen 5-325 MG 12/19/2020 12:00:00 AM EDT 1.0 {tablet_as_needed} active HYDROcodone-Acetaminophen 5-325 MG eCW1 (Formerly [facility], [facility]) Acetaminophen 325 MG / Hydrocodone Alayna trate 5 MG Oral Tablet HYDROcodone- Acetaminophen 5-325 MG HYDROcodone-Acetaminophen 5-325 MG 12/19/2020 12:00:00 AM EDT 1.0 {tablet_as_needed} active HYDROcodone-Acetaminophen 5-325 MG eCW1 (Formerly [facility], [facility]) Acetaminophen 325 MG / Hydrocodone Alayna trate 5 MG Oral Tablet HYDROcodone- Acetaminophen 5-325 MG HYDROcodone-Acetaminophen 5-325 MG 12/19/2020 12:00:00 AM EDT 1.0 {tablet_as_needed} active HYDROcodone-Acetaminophen 5-325 MG eCW1 (Formerly [facility], [facility]) Acetaminophen 325 MG / Hydrocodone Alayna trate 5 MG Oral Tablet HYDROcodone- Acetaminophen 5-325 MG HYDROcodone-Acetaminophen 5-325 MG 12/19/2020 12:00:00 AM EDT 1.0 {tablet_as_needed} active HYDROcodone-Acetaminophen 5-325 MG eCW1 (Formerly [facility], [facility]) Acetaminophen 325 MG / Hydrocodone Alayna trate 5 MG Oral Tablet Hydrocodone- Acetaminophen 5-325 MG Hydrocodone-Acetaminophen 5-325 MG 12/19/2020 12:00:00 AM EDT 1.0 {tablet_as_needed} active Hydrocodone-Acetaminophen 5-325 MG eCW1 (Formerly [facility], [facility]) Acetaminophen 325 MG / Hydrocodone Alayna trate 5 MG Oral Tablet HYDROcodone- Acetaminophen 5-325 MG HYDROcodone-Acetaminophen 5-325 MG 12/19/2020 12:00:00 AM EDT 1.0 {tablet_as_needed} active HYDROcodone-Acetaminophen 5-325 MG eCW1 (Formerly [facility], [facility]) Acetaminophen 325 MG / Hydrocodone Alayna trate 5 MG Oral Tablet Hydrocodone- Acetaminophen 5-325 MG Hydrocodone-Acetaminophen 5-325 MG 12/19/2020 12:00:00 AM EDT 1.0 {tablet_as_needed} active Hydrocodone-Acetaminophen 5-325 MG eCW1 (Formerly [facility], [facility]) Acetaminophen 325 MG / Hydrocodone Alayna trate 5 MG Oral Tablet HYDROcodone- Acetaminophen 5-325 MG HYDROcodone-Acetaminophen 5-325 MG 12/19/2020 12:00:00 AM EDT 1.0 {tablet_as_needed} active HYDROcodone-Acetaminophen 5-325 MG eCW1 (Formerly [facility], [facility]) Acetaminophen 325 MG / Hydrocodone Alayna trate 5 MG Oral Tablet HYDROcodone- Acetaminophen 5-325 MG HYDROcodone-Acetaminophen 5-325 MG 12/19/2020 12:00:00 AM EDT 1.0 {tablet_as_needed} active HYDROcodone-Acetaminophen 5-325 MG eCW1 (Formerly [facility], [facility]) Acetaminophen 325 MG / Hydrocodone Alayna trate 5 MG Oral Tablet HYDROcodone- Acetaminophen 5-325 MG HYDROcodone-Acetaminophen 5-325 MG 12/19/2020 12:00:00 AM EDT 1.0 {tablet_as_needed} active HYDROcodone-Acetaminophen 5-325 MG eCW1 (Formerly [facility], [facility]) Cyclobenzaprine hydrochloride 5 MG Oral Tablet CYCLOBENZAPRI NE HCL 11/24/2020 12:00:00 AM EDT tablet 90 TAKE ONE TABLET BY MOUTH THREE TIMES A DAY NEEDED TAKE ONE TABLET BY MOUTH THREE TIMES A DAY NEEDED SOLD: 11/26/2020 [facility] Rosuvastatin calcium 20 MG Oral Tablet ROSUVASTATIN CALCIUM 11/15/2020 12:00:00 AM EDT tablet 90 TAKE ONE TABLET BY MOUTH AT BEDTIME TAKE ONE TABLET BY MOUTH AT BEDTIME SOLD: 02/17/2021 [facility] 2 mg 11/15/2020 12:00:00 AM EDT tablet 112 TAKE 2 TABLETS BY MOUTH TWO TIMES A DAY NEEDED MAXIMUM DAILY DOSE = 4 TABLETS TAKE 2 TABLETS BY MOUTH TWO TIMES A DAY NEEDED MAXIMUM DAILY DOSE = 4 TABLETS SOLD: 11/16/2020 [facility] Rosuvastatin calcium 20 MG Oral Tablet ROSUVASTATIN CALCIUM 11/15/2020 12:00:00 AM EDT tablet 90 TAKE ONE TABLET BY MOUTH AT BEDTIME TAKE ONE TABLET BY MOUTH AT BEDTIME SOLD: 11/16/2020 [facility] 75 mcg 11/14/2020 12:00:00 AM EDT tablet 30 TAKE ONE TABLET BY MOUTH EVERY MORNING TAKE ONE TABLET BY MOUTH EVERY MORNING SOLD: 11/16/2020 [facility] 75 mcg 11/14/2020 12:00:00 AM EDT tablet 30 TAKE ONE TABLET BY MOUTH EVERY MORNING TAKE ONE TABLET BY MOUTH EVERY MORNING SOLD: 12/23/2020 [facility] 75 mcg 11/14/2020 12:00:00 AM EDT tablet 30 TAKE ONE TABLET BY MOUTH EVERY MORNING TAKE ONE TABLET BY MOUTH EVERY MORNING SOLD: 04/22/2021 [facility] 75 mcg 11/14/2020 12:00:00 AM EDT tablet 30 TAKE ONE TABLET BY MOUTH EVERY MORNING TAKE ONE TABLET BY MOUTH EVERY MORNING SOLD: 05/31/2021 [facility] 75 mcg 11/14/2020 12:00:00 AM EDT tablet 30 TAKE ONE TABLET BY MOUTH EVERY MORNING TAKE ONE TABLET BY MOUTH EVERY MORNING SOLD: 02/27/2021 [facility] 50 mcg/actuation 11/09/2020 12:00:00 AM EDT spray,suspension 16 SPRAY TWO SPRAYS IN EACH NOSTRIL EVERY DAY SPRAY TWO SPRAYS IN EACH NOSTRIL EVERY DAY SOLD: 11/09/2020 [facility] Acetaminophen 325 MG / Hydrocodone Alayna trate 5 MG Oral Tablet Hydrocodone- Acetaminophen 5-325 MG Hydrocodone-Acetaminophen 5-325 MG 10/25/2020 12:00:00 AM EDT active Hydrocodone-Aceta minophen 5-325 MG eCW1 (Formerly [facility], [facility]) Acetaminophen 325 MG / Hydrocodone Alayna trate 5 MG Oral Tablet HYDROcodone- Acetaminophen 5-325 MG HYDROcodone-Acetaminophen 5-325 MG 10/25/2020 12:00:00 AM EDT active HYDROcodone-Aceta minophen 5-325 MG eCW1 (Formerly [facility], [facility]) Acetaminophen 325 MG / Hydrocodone Alayna trate 5 MG Oral Tablet Hydrocodone- Acetaminophen 5-325 MG Hydrocodone-Acetaminophen 5-325 MG 10/25/2020 12:00:00 AM EDT active Hydrocodone-Aceta minophen 5-325 MG eCW1 (Formerly [facility], [facility]) Acetaminophen 325 MG / Hydrocodone Alayna trate 5 MG Oral Tablet HYDROcodone- Acetaminophen 5-325 MG HYDROcodone-Acetaminophen 5-325 MG 10/25/2020 12:00:00 AM EDT active HYDROcodone-Aceta minophen 5-325 MG eCW1 (Formerly [facility], [facility]) Acetaminophen 325 MG / Hydrocodone Alayna trate 5 MG Oral Tablet Hydrocodone- Acetaminophen 5-325 MG Hydrocodone-Acetaminophen 5-325 MG 10/25/2020 12:00:00 AM EDT 1.0 {tablet_as_needed} active Hydrocodone-Acetaminophen 5-325 MG eCW1 (Formerly [facility], [facility]) Acetaminophen 325 MG / Hydrocodone Alayna trate 5 MG Oral Tablet HYDROcodone- Acetaminophen 5-325 MG HYDROcodone-Acetaminophen 5-325 MG 10/25/2020 12:00:00 AM EDT suspended HYDROcodone-Ac etaminophen 5-325 MG eCW1 (Formerly [facility], [facility]) Acetaminophen 325 MG / Hydrocodone Alayna trate 5 MG Oral Tablet HYDROcodone- Acetaminophen 5-325 MG HYDROcodone-Acetaminophen 5-325 MG 10/25/2020 12:00:00 AM EDT active HYDROcodone-Aceta minophen 5-325 MG eCW1 (Formerly [facility], [facility]) Acetaminophen 325 MG / Hydrocodone Alayna trate 5 MG Oral Tablet Hydrocodone- Acetaminophen 5-325 MG Hydrocodone-Acetaminophen 5-325 MG 10/25/2020 12:00:00 AM EDT 1.0 {tablet_as_needed} active Hydrocodone-Acetaminophen 5-325 MG eCW1 (Formerly [facility], [facility]) Acetaminophen 325 MG / Hydrocodone Alayna trate 5 MG Oral Tablet Hydrocodone- Acetaminophen 5-325 MG Hydrocodone-Acetaminophen 5-325 MG 10/25/2020 12:00:00 AM EDT 1.0 {tablet_as_needed} active Hydrocodone-Acetaminophen 5-325 MG eCW1 (Formerly [facility], [facility]) Acetaminophen 325 MG / Hydrocodone Alayna trate 5 MG Oral Tablet HYDROcodone- Acetaminophen 5-325 MG HYDROcodone-Acetaminophen 5-325 MG 10/25/2020 12:00:00 AM EDT active HYDROcodone-Aceta minophen 5-325 MG eCW1 (Formerly [facility], [facility]) Acetaminophen 325 MG / Hydrocodone Alayna trate 5 MG Oral Tablet Hydrocodone- Acetaminophen 5-325 MG Hydrocodone-Acetaminophen 5-325 MG 10/25/2020 12:00:00 AM EDT active Hydrocodone-Aceta minophen 5-325 MG eCW1 (Formerly [facility], [facility]) Acetaminophen 325 MG / Hydrocodone Alayna trate 5 MG Oral Tablet Hydrocodone- Acetaminophen 5-325 MG Hydrocodone-Acetaminophen 5-325 MG 10/25/2020 12:00:00 AM EDT active Hydrocodone-Aceta minophen 5-325 MG eCW1 (Formerly [facility], [facility]) Acetaminophen 325 MG / Hydrocodone Alayna trate 5 MG Oral Tablet HYDROcodone- Acetaminophen 5-325 MG HYDROcodone-Acetaminophen 5-325 MG 10/25/2020 12:00:00 AM EDT active HYDROcodone-Aceta minophen 5-325 MG eCW1 (Formerly [facility], [facility]) Acetaminophen 325 MG / Hydrocodone Alayna trate 5 MG Oral Tablet HYDROcodone- Acetaminophen 5-325 MG HYDROcodone-Acetaminophen 5-325 MG 10/25/2020 12:00:00 AM EDT active HYDROcodone-Aceta minophen 5-325 MG eCW1 (Formerly [facility], [facility]) Acetaminophen 325 MG / Hydrocodone Alayna trate 5 MG Oral Tablet Hydrocodone- Acetaminophen 5-325 MG Hydrocodone-Acetaminophen 5-325 MG 10/25/2020 12:00:00 AM EDT 1.0 {tablet_as_needed} active Hydrocodone-Acetaminophen 5-325 MG eCW1 (Formerly [facility], [facility]) Acetaminophen 325 MG / Hydrocodone Alayna trate 5 MG Oral Tablet Hydrocodone- Acetaminophen 5-325 MG Hydrocodone-Acetaminophen 5-325 MG 10/25/2020 12:00:00 AM EDT active Hydrocodone-Aceta minophen 5-325 MG eCW1 (Formerly [facility], [facility]) 5-325 mg 10/25/2020 12:00:00 AM EDT tablet 56 TAKE ONE TABLET BY MOUTH TWICE A DAY IF NEEDED MAX OF 2 PER DAY TAKE ONE TABLET BY MOUTH TWICE A DAY IF NEEDED MAX OF 2 PER DAY SOLD: 10/26/2020 [facility] Acetaminophen 325 MG / Hydrocodone Alayna trate 5 MG Oral Tablet HYDROcodone- Acetaminophen 5-325 MG HYDROcodone-Acetaminophen 5-325 MG 10/25/2020 12:00:00 AM EDT suspended HYDROcodone-Ac etaminophen 5-325 MG eCW1 (Formerly [facility], [facility]) Acetaminophen 325 MG / Hydrocodone Alayna trate 5 MG Oral Tablet HYDROcodone- Acetaminophen 5-325 MG HYDROcodone-Acetaminophen 5-325 MG 10/25/2020 12:00:00 AM EDT active HYDROcodone-Aceta minophen 5-325 MG eCW1 (Formerly [facility], [facility]) Acetaminophen 325 MG / Hydrocodone Alayna trate 5 MG Oral Tablet Hydrocodone- Acetaminophen 5-325 MG Hydrocodone-Acetaminophen 5-325 MG 10/25/2020 12:00:00 AM EDT active Hydrocodone-Aceta minophen 5-325 MG eCW1 (Formerly [facility], [facility]) Acetaminophen 325 MG / Hydrocodone Alayna trate 5 MG Oral Tablet Hydrocodone- Acetaminophen 5-325 MG Hydrocodone-Acetaminophen 5-325 MG 10/25/2020 12:00:00 AM EDT active Hydrocodone-Aceta minophen 5-325 MG eCW1 (Formerly [facility], [facility]) Acetaminophen 325 MG / Hydrocodone Alayna trate 5 MG Oral Tablet HYDROcodone- Acetaminophen 5-325 MG HYDROcodone-Acetaminophen 5-325 MG 10/25/2020 12:00:00 AM EDT suspended HYDROcodone-Ac etaminophen 5-325 MG eCW1 (Formerly [facility], [facility]) Acetaminophen 325 MG / Hydrocodone Alayna trate 5 MG Oral Tablet Hydrocodone- Acetaminophen 5-325 MG Hydrocodone-Acetaminophen 5-325 MG 10/25/2020 12:00:00 AM EDT 1.0 {tablet_as_needed} active Hydrocodone-Acetaminophen 5-325 MG eCW1 (Formerly [facility], [facility]) Acetaminophen 325 MG / Hydrocodone Alayna trate 5 MG Oral Tablet Hydrocodone- Acetaminophen 5-325 MG Hydrocodone-Acetaminophen 5-325 MG 10/25/2020 12:00:00 AM EDT 1.0 {tablet_as_needed} active Hydrocodone-Acetaminophen 5-325 MG eCW1 (Formerly [facility], [facility]) Acetaminophen 325 MG / Hydrocodone Alayna trate 5 MG Oral Tablet HYDROcodone- Acetaminophen 5-325 MG HYDROcodone-Acetaminophen 5-325 MG 10/25/2020 12:00:00 AM EDT suspended HYDROcodone-Ac etaminophen 5-325 MG eCW1 (Formerly [facility], [facility]) Acetaminophen 325 MG / Hydrocodone Alayna trate 5 MG Oral Tablet HYDROcodone- Acetaminophen 5-325 MG HYDROcodone-Acetaminophen 5-325 MG 10/25/2020 12:00:00 AM EDT suspended HYDROcodone-Ac etaminophen 5-325 MG eCW1 (Formerly [facility], [facility]) Acetaminophen 325 MG / Hydrocodone Alayna trate 5 MG Oral Tablet HYDROcodone- Acetaminophen 5-325 MG HYDROcodone-Acetaminophen 5-325 MG 10/25/2020 12:00:00 AM EDT suspended HYDROcodone-Ac etaminophen 5-325 MG eCW1 (Formerly [facility], [facility]) Acetaminophen 325 MG / Hydrocodone Alayna trate 5 MG Oral Tablet Hydrocodone- Acetaminophen 5-325 MG Hydrocodone-Acetaminophen 5-325 MG 10/25/2020 12:00:00 AM EDT active Hydrocodone-Aceta minophen 5-325 MG eCW1 (Formerly [facility], [facility]) Acetaminophen 325 MG / Hydrocodone Alayna trate 5 MG Oral Tablet HYDROcodone- Acetaminophen 5-325 MG HYDROcodone-Acetaminophen 5-325 MG 10/25/2020 12:00:00 AM EDT active HYDROcodone-Aceta minophen 5-325 MG eCW1 (Formerly [facility], [facility]) Trazodone Hydrochloride 100 MG Oral Tablet TRAZODONE HCL 10/24/2020 12:00:00 AM EDT tablet 30 TAKE ONE TABLET BY MOUTH AV LY AT BEDTIME TAKE ONE TABLET BY MOUTH DAILY AT BEDTIME SOLD: 03/04/2021 [facility] Trazodone Hydrochloride 100 MG Oral Tablet TRAZODONE HCL 10/24/2020 12:00:00 AM EDT tablet 30 TAKE ONE TABLET BY MOUTH AV LY AT BEDTIME TAKE ONE TABLET BY MOUTH DAILY AT BEDTIME SOLD: 03/30/2021 [facility] Trazodone Hydrochloride 100 MG Oral Tablet TRAZODONE HCL 10/24/2020 12:00:00 AM EDT tablet 30 TAKE ONE TABLET BY MOUTH AV LY AT BEDTIME TAKE ONE TABLET BY MOUTH DAILY AT BEDTIME SOLD: 10/24/2020 [facility] Trazodone Hydrochloride 100 MG Oral Tablet TRAZODONE HCL 10/24/2020 12:00:00 AM EDT tablet 30 TAKE ONE TABLET BY MOUTH AV LY AT BEDTIME TAKE ONE TABLET BY MOUTH DAILY AT BEDTIME SOLD: 12/31/2020 [facility] Trazodone Hydrochloride 100 MG Oral Tablet TRAZODONE HCL 10/24/2020 12:00:00 AM EDT tablet 30 TAKE ONE TABLET BY MOUTH AV LY AT BEDTIME TAKE ONE TABLET BY MOUTH DAILY AT BEDTIME SOLD: 01/26/2021 [facility] 40 mg 10/16/2020 12:00:00 AM EDT capsule,delayed release (DR/EC) 90 TAKE ONE CAPSULE BY MOUTH EVERY DAY TAKE ONE CAPSULE BY MOUTH EVERY DAY SOLD: 01/26/2021 [facility] 40 mg 10/16/2020 12:00:00 AM EDT capsule,delayed release (DR/EC) 90 TAKE ONE CAPSULE BY MOUTH EVERY DAY TAKE ONE CAPSULE BY MOUTH EVERY DAY SOLD: 10/19/2020 [facility] Cyclobenzaprine hydrochloride 5 MG Oral Tablet CYCLOBENZAPRI NE [facility]CL 10/02/2020 12:00:00 AM EST tablet 90 TAKE ONE TABLET BY MOUTH THREE TIMES A DAY NEEDED TAKE ONE TABLET BY MOUTH THREE TIMES A DAY NEEDED SOLD: 10/31/2020 [facility] Cyclobenzaprine hydrochloride 5 MG Oral Tablet CYCLOBENZAPRI NE HCL 10/02/2020 12:00:00 AM EST tablet 90 TAKE ONE TABLET BY MOUTH THREE TIMES A DAY NEEDED TAKE ONE TABLET BY MOUTH THREE TIMES A DAY NEEDED SOLD: 12/31/2020 [facility] Cyclobenzaprine hydrochloride 5 MG Oral Tablet CYCLOBENZAPRI NE [facility]CL 10/02/2020 12:00:00 AM EST tablet 90 TAKE ONE TABLET BY MOUTH THREE TIMES A DAY NEEDED TAKE ONE TABLET BY MOUTH THREE TIMES A DAY NEEDED SOLD: 10/02/2020 [facility] Cyclobenzaprine hydrochloride 5 MG Oral Tablet CYCLOBENZAPRI NE [facility]CL 10/02/2020 12:00:00 AM EST tablet 90 TAKE ONE TABLET BY MOUTH THREE TIMES A DAY NEEDED TAKE ONE TABLET BY MOUTH THREE TIMES A DAY NEEDED SOLD: 04/20/2021 [facility] Acetaminophen 325 MG / Hydrocodone Alayna trate 5 MG Oral Tablet Hydrocodone- Acetaminophen 5-325 MG Hydrocodone-Acetaminophen 5-325 MG 09/25/2020 12:00:00 AM EST 1.0 {tablet_as_needed} active Hydrocodone-Acetaminophen 5-325 MG eCW1 (Formerly [facility], [facility]) Acetaminophen 325 MG / Hydrocodone Alayna trate 5 MG Oral Tablet HYDROcodone- Acetaminophen 5-325 MG HYDROcodone-Acetaminophen 5-325 MG 09/25/2020 12:00:00 AM EST 1.0 {tablet_as_needed} active HYDROcodone-Acetaminophen 5-325 MG eCW1 (Formerly [facility], [facility]) Acetaminophen 325 MG / Hydrocodone Alayna trate 5 MG Oral Tablet HYDROcodone- Acetaminophen 5-325 MG HYDROcodone-Acetaminophen 5-325 MG 09/25/2020 12:00:00 AM EST 1.0 {tablet_as_needed} active HYDROcodone-Acetaminophen 5-325 MG eCW1 (Formerly [facility], [facility]) Acetaminophen 325 MG / Hydrocodone Alayna trate 5 MG Oral Tablet Hydrocodone- Acetaminophen 5-325 MG Hydrocodone-Acetaminophen 5-325 MG 09/25/2020 12:00:00 AM EST active Hydrocodone-Aceta minophen 5-325 MG eCW1 (Formerly [facility], [facility]) Acetaminophen 325 MG / Hydrocodone Alayna trate 5 MG Oral Tablet HYDROcodone- Acetaminophen 5-325 MG HYDROcodone-Acetaminophen 5-325 MG 09/25/2020 12:00:00 AM EST 1.0 {tablet_as_needed} active HYDROcodone-Acetaminophen 5-325 MG eCW1 (Formerly [facility], [facility]) Acetaminophen 325 MG / Hydrocodone Alayna trate 5 MG Oral Tablet HYDROcodone- Acetaminophen 5-325 MG HYDROcodone-Acetaminophen 5-325 MG 09/25/2020 12:00:00 AM EST 1.0 {tablet_as_needed} active HYDROcodone-Acetaminophen 5-325 MG eCW1 (Formerly [facility], [facility]) Acetaminophen 325 MG / Hydrocodone Alayna trate 5 MG Oral Tablet Hydrocodone- Acetaminophen 5-325 MG Hydrocodone-Acetaminophen 5-325 MG 09/25/2020 12:00:00 AM EST 1.0 {tablet_as_needed} active Hydrocodone-Acetaminophen 5-325 MG eCW1 (Formerly [facility], [facility]) Acetaminophen 325 MG / Hydrocodone Alayna trate 5 MG Oral Tablet HYDROcodone- Acetaminophen 5-325 MG HYDROcodone-Acetaminophen 5-325 MG 09/25/2020 12:00:00 AM EST 1.0 {tablet_as_needed} active HYDROcodone-Acetaminophen 5-325 MG eCW1 (Formerly [facility], [facility]) Acetaminophen 325 MG / Hydrocodone Alayna trate 5 MG Oral Tablet Hydrocodone- Acetaminophen 5-325 MG Hydrocodone-Acetaminophen 5-325 MG 09/25/2020 12:00:00 AM EST active Hydrocodone-Aceta minophen 5-325 MG eCW1 (Formerly [facility], [facility]) 5-325 mg 09/25/2020 12:00:00 AM EST tablet 56 TAKE ONE TABLET BY MOUTH TWICE A DAY NEEDED MAXIMUM DAILY DOSE = 2 TABLETS TAKE ONE TABLET BY MOUTH TWICE A DAY NEEDED MAXIMUM DAILY DOSE = 2 TABLETS SOLD: 09/26/2020 [facility] Acetaminophen 325 MG / Hydrocodone Alayna trate 5 MG Oral Tablet Hydrocodone- Acetaminophen 5-325 MG Hydrocodone-Acetaminophen 5-325 MG 09/25/2020 12:00:00 AM EST 1.0 {tablet_as_needed} active Hydrocodone-Acetaminophen 5-325 MG eCW1 (Formerly [facility], [facility]) Acetaminophen 325 MG / Hydrocodone Alayna trate 5 MG Oral Tablet HYDROcodone- Acetaminophen 5-325 MG HYDROcodone-Acetaminophen 5-325 MG 09/25/2020 12:00:00 AM EST 1.0 {tablet_as_needed} active HYDROcodone-Acetaminophen 5-325 MG eCW1 (Formerly [facility], [facility]) Acetaminophen 325 MG / Hydrocodone Alayna trate 5 MG Oral Tablet Hydrocodone- Acetaminophen 5-325 MG Hydrocodone-Acetaminophen 5-325 MG 09/25/2020 12:00:00 AM EST 1.0 {tablet_as_needed} active Hydrocodone-Acetaminophen 5-325 MG eCW1 (Formerly [facility], [facility]) Acetaminophen 325 MG / Hydrocodone Alayna trate 5 MG Oral Tablet Hydrocodone- Acetaminophen 5-325 MG Hydrocodone-Acetaminophen 5-325 MG 09/25/2020 12:00:00 AM EST 1.0 {tablet_as_needed} active Hydrocodone-Acetaminophen 5-325 MG eCW1 (Formerly [facility], [facility]) Acetaminophen 325 MG / Hydrocodone Alayna trate 5 MG Oral Tablet Hydrocodone- Acetaminophen 5-325 MG Hydrocodone-Acetaminophen 5-325 MG 09/25/2020 12:00:00 AM EST 1.0 {tablet_as_needed} active Hydrocodone-Acetaminophen 5-325 MG eCW1 (Formerly [facility], [facility]) Acetaminophen 325 MG / Hydrocodone Alayna trate 5 MG Oral Tablet Hydrocodone- Acetaminophen 5-325 MG Hydrocodone-Acetaminophen 5-325 MG 09/25/2020 12:00:00 AM EST 1.0 {tablet_as_needed} active Hydrocodone-Acetaminophen 5-325 MG eCW1 (Formerly [facility], [facility]) Acetaminophen 325 MG / Hydrocodone Alayna trate 5 MG Oral Tablet Hydrocodone- Acetaminophen 5-325 MG Hydrocodone-Acetaminophen 5-325 MG 09/25/2020 12:00:00 AM EST 1.0 {tablet_as_needed} active Hydrocodone-Acetaminophen 5-325 MG eCW1 (Formerly [facility], [facility]) Acetaminophen 325 MG / Hydrocodone Alayna trate 5 MG Oral Tablet HYDROcodone- Acetaminophen 5-325 MG HYDROcodone-Acetaminophen 5-325 MG 09/25/2020 12:00:00 AM EST 1.0 {tablet_as_needed} active HYDROcodone-Acetaminophen 5-325 MG eCW1 (Formerly [facility], [facility]) Acetaminophen 325 MG / Hydrocodone Alayna trate 5 MG Oral Tablet HYDROcodone- Acetaminophen 5-325 MG HYDROcodone-Acetaminophen 5-325 MG 09/25/2020 12:00:00 AM EST 1.0 {tablet_as_needed} active HYDROcodone-Acetaminophen 5-325 MG eCW1 (Formerly [facility], [facility]) Acetaminophen 325 MG / Hydrocodone Alayna trate 5 MG Oral Tablet HYDROcodone- Acetaminophen 5-325 MG HYDROcodone-Acetaminophen 5-325 MG 09/25/2020 12:00:00 AM EST 1.0 {tablet_as_needed} active HYDROcodone-Acetaminophen 5-325 MG eCW1 (Formerly [facility], [facility]) Acetaminophen 325 MG / Hydrocodone Alayna trate 5 MG Oral Tablet HYDROcodone- Acetaminophen 5-325 MG HYDROcodone-Acetaminophen 5-325 MG 09/25/2020 12:00:00 AM EST 1.0 {tablet_as_needed} active HYDROcodone-Acetaminophen 5-325 MG eCW1 (Formerly [facility], [facility]) Acetaminophen 325 MG / Hydrocodone Alayna trate 5 MG Oral Tablet HYDROcodone- Acetaminophen 5-325 MG HYDROcodone-Acetaminophen 5-325 MG 09/25/2020 12:00:00 AM EST 1.0 {tablet_as_needed} active HYDROcodone-Acetaminophen 5-325 MG eCW1 (Formerly [facility], [facility]) Acetaminophen 325 MG / Hydrocodone Alayna trate 5 MG Oral Tablet HYDROcodone- Acetaminophen 5-325 MG HYDROcodone-Acetaminophen 5-325 MG 09/25/2020 12:00:00 AM EST 1.0 {tablet_as_needed} active HYDROcodone-Acetaminophen 5-325 MG eCW1 (Formerly [facility], [facility]) Acetaminophen 325 MG / Hydrocodone Alayna trate 5 MG Oral Tablet Hydrocodone- Acetaminophen 5-325 MG Hydrocodone-Acetaminophen 5-325 MG 09/25/2020 12:00:00 AM EST 1.0 {tablet_as_needed} active Hydrocodone-Acetaminophen 5-325 MG eCW1 (Formerly [facility], [facility]) Acetaminophen 325 MG / Hydrocodone Alayna trate 5 MG Oral Tablet HYDROcodone- Acetaminophen 5-325 MG HYDROcodone-Acetaminophen 5-325 MG 09/25/2020 12:00:00 AM EST 1.0 {tablet_as_needed} active HYDROcodone-Acetaminophen 5-325 MG eCW1 (Formerly [facility], [facility]) Acetaminophen 325 MG / Hydrocodone Alayna trate 5 MG Oral Tablet Hydrocodone- Acetaminophen 5-325 MG Hydrocodone-Acetaminophen 5-325 MG 09/25/2020 12:00:00 AM EST 1.0 {tablet_as_needed} active Hydrocodone-Acetaminophen 5-325 MG eCW1 (Formerly [facility], [facility]) Acetaminophen 325 MG / Hydrocodone Alayna trate 5 MG Oral Tablet Hydrocodone- Acetaminophen 5-325 MG Hydrocodone-Acetaminophen 5-325 MG 09/25/2020 12:00:00 AM EST active Hydrocodone-Aceta minophen 5-325 MG eCW1 (Formerly [facility], [facility]) Acetaminophen 325 MG / Hydrocodone Alayna trate 5 MG Oral Tablet Hydrocodone- Acetaminophen 5-325 MG Hydrocodone-Acetaminophen 5-325 MG 09/25/2020 12:00:00 AM EST active Hydrocodone-Aceta minophen 5-325 MG eCW1 (Formerly [facility], [facility]) Acetaminophen 325 MG / Hydrocodone Alayna trate 5 MG Oral Tablet Hydrocodone- Acetaminophen 5-325 MG Hydrocodone-Acetaminophen 5-325 MG 09/25/2020 12:00:00 AM EST 1.0 {tablet_as_needed} active Hydrocodone-Acetaminophen 5-325 MG eCW1 (Formerly [facility], [facility]) Acetaminophen 325 MG / Hydrocodone Alayna trate 5 MG Oral Tablet Hydrocodone- Acetaminophen 5-325 MG Hydrocodone-Acetaminophen 5-325 MG 09/25/2020 12:00:00 AM EST active Hydrocodone-Aceta minophen 5-325 MG eCW1 (Formerly [facility], [facility]) Acetaminophen 325 MG / Hydrocodone Alayna trate 5 MG Oral Tablet Hydrocodone- Acetaminophen 5-325 MG Hydrocodone-Acetaminophen 5-325 MG 09/25/2020 12:00:00 AM EST 1.0 {tablet_as_needed} active Hydrocodone-Acetaminophen 5-325 MG eCW1 (Formerly [facility], [facility]) Acetaminophen 325 MG / Hydrocodone Alayna trate 5 MG Oral Tablet HYDROcodone- Acetaminophen 5-325 MG HYDROcodone-Acetaminophen 5-325 MG 09/25/2020 12:00:00 AM EST 1.0 {tablet_as_needed} active HYDROcodone-Acetaminophen 5-325 MG eCW1 (Formerly [facility], [facility]) Acetaminophen 325 MG / Hydrocodone Alayna trate 5 MG Oral Tablet Hydrocodone- Acetaminophen 5-325 MG Hydrocodone-Acetaminophen 5-325 MG 09/25/2020 12:00:00 AM EST 1.0 {tablet_as_needed} active Hydrocodone-Acetaminophen 5-325 MG eCW1 (Formerly [facility], [facility]) Acetaminophen 325 MG / Hydrocodone Alayna trate 5 MG Oral Tablet Hydrocodone- Acetaminophen 5-325 MG Hydrocodone-Acetaminophen 5-325 MG 09/20/2020 12:00:00 AM EST active Hydrocodone-Aceta minophen 5-325 MG eCW1 (Formerly [facility], [facility]) 62.5-25 mcg/actuation 09/15/2020 12:00:00 AM EST blister wit h device 60 INHALE 1 PUFF BY MOUTH INTO LUNGS ONCE DAILY INHALE 1 PUFF BY MOUTH INTO LUNGS ONCE DAILY SOLD: 09/18/2020 [facility] 30 ACTUAT umeclidinium 0.0625 MG/ACTUAT / vilanterol 0.025 MG/ACTUAT Dry Powder Inhaler [Anoro] 62.5-25 mcg/actuation UMECLIDINIUM BRM/VILANTEROL TR 09/15/2020 12:00:00 AM EST blister with device 60 INHALE 1 PUF F BY MOUTH INTO LUNGS ONCE DAILY INHALE 1 PUFF BY MOUTH INTO LUNGS ONCE DAILY SOLD: 03/04/2021 [facility] 30 ACTUAT umeclidinium 0.0625 MG/ACTUAT / vilanterol 0.025 MG/ACTUAT Dry Powder Inhaler [Anoro] 62.5-25 mcg/actuation UMECLIDINIUM BRM/VILANTEROL TR 09/15/2020 12:00:00 AM EST blister with device 60 INHALE 1 PUF F BY MOUTH INTO LUNGS ONCE DAILY INHALE 1 PUFF BY MOUTH INTO LUNGS ONCE DAILY SOLD: 01/21/2021 [facility] 62.5-25 mcg/actuation 09/15/2020 12:00:00 AM EST blister wit h device 60 INHALE 1 PUFF BY MOUTH INTO LUNGS ONCE DAILY INHALE 1 PUFF BY MOUTH INTO LUNGS ONCE DAILY SOLD: 10/31/2020 [facility] Acetaminophen 325 MG / Hydrocodone Alayna trate 5 MG Oral Tablet Hydrocodone- Acetaminophen 5-325 MG Hydrocodone-Acetaminophen 5-325 MG 09/14/2020 12:00:00 AM EST active Hydrocodone-Aceta minophen 5-325 MG eCW1 (Formerly [facility], [facility]) 30 ACTUAT umeclidinium 0.0625 MG/ACTUAT / vilanterol 0.025 MG/ACTUAT Dry Powder Inhaler [Anoro] Anoro Ellipta 62.5-25 MCG/INH Inhalation Aerosol Powder Breath Activated (umeclidinium-vilanterol) Anoro Ellipta 62.5-25 MCG/INH Inhalation Aerosol Powder Breath Activated (umeclidinium-vilanterol) 09/14/2020 12:00:00 AM EST 1 {puff} Inhalation active Inhale 1 pu ff into the lungs daily [facility] Acetaminophen 325 MG / Hydrocodone Alayna trate 5 MG Oral Tablet Hydrocodone- Acetaminophen 5-325 MG Hydrocodone-Acetaminophen 5-325 MG 09/14/2020 12:00:00 AM EST active Hydrocodone-Aceta minophen 5-325 MG eCW1 (Formerly [facility], [facility]) 2 mg 09/14/2020 12:00:00 AM EST tablet 112 TAKE TWO TABLETS BY MOUTH TWICE A DAY NEEDED MAXIMUM DAILY DOSE = 4 TABLETS TAKE TWO TABLETS BY MOUTH TWICE A DAY NEEDED MAXIMUM DAILY DOSE = 4 TABLETS SOLD: 09/18/2020 [facility] Acetaminophen 325 MG / Hydrocodone Alayna trate 5 MG Oral Tablet Hydrocodone- Acetaminophen 5-325 MG Hydrocodone-Acetaminophen 5-325 MG 09/14/2020 12:00:00 AM EST active Hydrocodone-Aceta minophen 5-325 MG eCW1 (Formerly [facility], [facility]) 5 % 09/12/2020 12:00:00 AM EST adhesive patch,medicate d 30 APPLY 1 PATCH TOPICALLY DAILY MAY WEAR UP TO 12 HOURS (12 HOURS ON, 12 HOURS OFF) APPLY 1 PATCH TOPICALLY DAILY MAY WEAR UP TO 12 HOURS (12 HOURS ON, 12 HOURS OFF) SOLD: 09/14/2020 [facility] 5-325 mg 08/28/2020 12:00:00 AM EST tablet [...] {tablet_as_needed} active O xycodone-Acetaminophen 5-325 MG eCW1 (Formerly [facility], [facility]) Acetaminophen 325 MG / Oxycodone Hydroch loride 5 MG Oral Tablet Oxycodone- Acetaminophen 5-325 MG Oxycodone-Acetaminophen 5-325 MG 08/23/2020 12:00:00 A M EST 1.0 {tablet_as_needed} active O xycodone-Acetaminophen 5-325 MG eCW1 (Formerly [facility], [facility]) Acetaminophen 325 MG / Oxycodone Hydroch loride 5 MG Oral Tablet Oxycodone- Acetaminophen 5-325 MG Oxycodone-Acetaminophen 5-325 MG 08/23/2020 12:00:00 A M EST 1.0 {tablet_as_needed} active O xycodone-Acetaminophen 5-325 MG eCW1 (Formerly [facility], [facility]) Acetaminophen 325 MG / Oxycodone Hydroch loride 5 MG Oral Tablet Oxycodone- Acetaminophen 5-325 MG Oxycodone-Acetaminophen 5-325 MG 08/23/2020 12:00:00 A M EST 1.0 {tablet_as_needed} active O xycodone-Acetaminophen 5-325 MG eCW1 (Formerly [facility], [facility]) Acetaminophen 325 MG / Oxycodone Hydroch loride 5 MG Oral Tablet Oxycodone- Acetaminophen 5-325 MG Oxycodone-Acetaminophen 5-325 MG 08/23/2020 12:00:00 A M EST 1.0 {tablet_as_needed} active O xycodone-Acetaminophen 5-325 MG eCW1 (Formerly [facility], [facility]) Acetaminophen 325 MG / Oxycodone Hydroch loride 5 MG Oral Tablet Oxycodone- Acetaminophen 5-325 MG Oxycodone-Acetaminophen 5-325 MG 08/23/2020 12:00:00 A M EST 1.0 {tablet_as_needed} active O xycodone-Acetaminophen 5-325 MG eCW1 (Formerly [facility], [facility]) Acetaminophen 325 MG / Oxycodone Hydroch loride 5 MG Oral Tablet Oxycodone- Acetaminophen 5-325 MG Oxycodone-Acetaminophen 5-325 MG 08/23/2020 12:00:00 A M EST 1.0 {tablet_as_needed} active O xycodone-Acetaminophen 5-325 MG eCW1 (Formerly [facility], [facility]) Acetaminophen 325 MG / Oxycodone Hydroch loride 5 MG Oral Tablet Oxycodone- Acetaminophen 5-325 MG Oxycodone-Acetaminophen 5-325 MG 08/23/2020 12:00:00 A M EST 1.0 {tablet_as_needed} active O xycodone-Acetaminophen 5-325 MG eCW1 (Formerly [facility], [facility]) Acetaminophen 325 MG / Oxycodone Hydroch loride 5 MG Oral Tablet Oxycodone- Acetaminophen 5-325 MG Oxycodone-Acetaminophen 5-325 MG 08/23/2020 12:00:00 A M EST 1.0 {tablet_as_needed} active O xycodone-Acetaminophen 5-325 MG eCW1 (Formerly [facility], [facility]) Acetaminophen 325 MG / Oxycodone Hydroch loride 5 MG Oral Tablet Oxycodone- Acetaminophen 5-325 MG Oxycodone-Acetaminophen 5-325 MG 08/23/2020 12:00:00 A M EST 1.0 {tablet_as_needed} active O xycodone-Acetaminophen 5-325 MG eCW1 (Formerly [facility], [facility]) Acetaminophen 325 MG / Oxycodone Hydroch loride 5 MG Oral Tablet oxyCODONE- Acetaminophen 5-325 MG oxyCODONE-Acetaminophen 5-325 MG 08/23/2020 12:00:00 A M EST 1.0 {tablet_as_needed} active o xyCODONE-Acetaminophen 5-325 MG eCW1 (Formerly [facility], [facility]) Acetaminophen 325 MG / Oxycodone Hydroch loride 5 MG Oral Tablet Oxycodone- Acetaminophen 5-325 MG Oxycodone-Acetaminophen 5-325 MG 08/23/2020 12:00:00 A M EST 1.0 {tablet_as_needed} active O xycodone-Acetaminophen 5-325 MG eCW1 (Formerly [facility], [facility]) Acetaminophen 325 MG / Oxycodone Hydroch loride 5 MG Oral Tablet oxyCODONE- Acetaminophen 5-325 MG oxyCODONE-Acetaminophen 5-325 MG 08/23/2020 12:00:00 A M EST 1.0 {tablet_as_needed} active o xyCODONE-Acetaminophen 5-325 MG eCW1 (Formerly [facility], [facility]) Acetaminophen 325 MG / Oxycodone Hydroch loride 5 MG Oral Tablet Oxycodone- Acetaminophen 5-325 MG Oxycodone-Acetaminophen 5-325 MG 08/23/2020 12:00:00 A M EST 1.0 {tablet_as_needed} active O xycodone-Acetaminophen 5-325 MG eCW1 (Formerly [facility], [facility]) Acetaminophen 325 MG / Oxycodone Hydroch loride 5 MG Oral Tablet oxyCODONE- Acetaminophen 5-325 MG oxyCODONE-Acetaminophen 5-325 MG 08/23/2020 12:00:00 A M EST 1.0 {tablet_as_needed} active o xyCODONE-Acetaminophen 5-325 MG eCW1 (Formerly [facility], [facility]) Acetaminophen 325 MG / Oxycodone Hydroch loride 5 MG Oral Tablet Oxycodone- Acetaminophen 5-325 MG Oxycodone-Acetaminophen 5-325 MG 08/23/2020 12:00:00 A M EST 1.0 {tablet_as_needed} active O xycodone-Acetaminophen 5-325 MG eCW1 (Formerly [facility], [facility]) Acetaminophen 325 MG / Oxycodone Hydroch loride 5 MG Oral Tablet Oxycodone- Acetaminophen 5-325 MG Oxycodone-Acetaminophen 5-325 MG 08/23/2020 12:00:00 A M EST 1.0 {tablet_as_needed} active O xycodone-Acetaminophen 5-325 MG eCW1 (Formerly [facility], [facility]) Acetaminophen 325 MG / Oxycodone Hydroch loride 5 MG Oral Tablet Oxycodone- Acetaminophen 5-325 MG Oxycodone-Acetaminophen 5-325 MG 08/23/2020 12:00:00 A M EST 1.0 {tablet_as_needed} active O xycodone-Acetaminophen 5-325 MG eCW1 (Formerly [facility], [facility]) Acetaminophen 325 MG / Oxycodone Hydroch loride 5 MG Oral Tablet Oxycodone- Acetaminophen 5-325 MG Oxycodone-Acetaminophen 5-325 MG 08/23/2020 12:00:00 A M EST 1.0 {tablet_as_needed} active O xycodone-Acetaminophen 5-325 MG eCW1 (Formerly [facility], [facility]) Acetaminophen 325 MG / Oxycodone Hydroch loride 5 MG Oral Tablet oxyCODONE- Acetaminophen 5-325 MG oxyCODONE-Acetaminophen 5-325 MG 08/23/2020 12:00:00 A M EST 1.0 {tablet_as_needed} active o xyCODONE-Acetaminophen 5-325 MG eCW1 (Formerly [facility], [facility]) Acetaminophen 325 MG / Oxycodone Hydroch loride 5 MG Oral Tablet Oxycodone- Acetaminophen 5-325 MG Oxycodone-Acetaminophen 5-325 MG 08/23/2020 12:00:00 A M EST 1.0 {tablet_as_needed} active O xycodone-Acetaminophen 5-325 MG eCW1 (Formerly [facility], [facility]) Acetaminophen 325 MG / Oxycodone Hydroch loride 5 MG Oral Tablet Oxycodone- Acetaminophen 5-325 MG Oxycodone-Acetaminophen 5-325 MG 08/23/2020 12:00:00 A M EST 1.0 {tablet_as_needed} active O xycodone-Acetaminophen 5-325 MG eCW1 (Formerly [facility], [facility]) 5-325 mg 07/26/2020 12:00:00 AM EST [...] = 4 TABLETS SOLD: 07/27/2020 [facility] Acetaminophen 325 MG / Hydrocodone Alayna trate 5 MG Oral Tablet [Rector] Rector 5- 325 MG Rector 5-325 MG 07/19/2020 12:00:00 AM EST 1.0 {tablet_as_needed} active Rector 5-325 MG eCW1 (Formerly [facility], [facility]) Acetaminophen 325 MG / Hydrocodone Alayna trate 5 MG Oral Tablet [Rector] Rector 5- 325 MG Rector 5-325 MG 07/19/2020 12:00:00 AM EST 1.0 {tablet_as_needed} active Rector 5-325 MG eCW1 (Formerly [facility], [facility]) 5-325 mg 07/19/2020 12:00:00 AM EST tablet 56 TAKE ONE TABLET BY MOUTH TWICE A DAY NEEDED MAXIMUM DAILY DOSE = 2 TABLETS TAKE ONE TABLET BY MOUTH TWICE A DAY NEEDED MAXIMUM DAILY DOSE = 2 TABLETS SOLD: 07/21/2020 [facility] 0.8 mg 07/06/2020 12:00:00 AM EST tablet 90 TAKE ONE TABLET BY MOUTH EVERY DAY TAKE ONE TABLET BY MOUTH EVERY DAY SOLD: 07/08/2020 [facility] Ascorbic Acid 60 MG / Calcium Pantothena te 10 MG / D-BIOTIN 0.3 MG / Folic Acid 0.8 MG / Niacinamide 20 MG / pyridoxine 10 MG / Riboflavin 1.7 MG / Thiamine 1.5 MG / Vitamin B 12 0.006 MG Oral Tablet [Kyra-Mirella] FOLIC ACID/VIT B COMPLEX AND C 07/06/2020 12:00:00 AM EST tablet 90 TAKE ONE TABLET BY MOUTH EVERY DAY TAKE ONE TABLET BY MOUTH EVERY DAY SOLD: 12/31/2020 [facility] 0.8 mg 07/06/2020 12:00:00 AM EST tablet 90 TAKE ONE TABLET BY MOUTH EVERY DAY TAKE ONE TABLET BY MOUTH EVERY DAY SOLD: 10/05/2020 [facility] Ascorbic Acid 60 MG / Calcium Pantothena te 10 MG / D-BIOTIN 0.3 MG / Folic Acid 0.8 MG / Niacinamide 20 MG / pyridoxine 10 MG / Riboflavin 1.7 MG / Thiamine 1.5 MG / Vitamin B 12 0.006 MG Oral Tablet [Kyra-Mirella] FOLIC ACID/VIT B COMPLEX AND C 07/06/2020 12:00:00 AM EST tablet 90 TAKE ONE TABLET BY MOUTH EVERY DAY TAKE ONE TABLET BY MOUTH EVERY DAY SOLD: 03/30/2021 [facility] 5-325 mg 06/19/2020 12:00:00 AM EST tablet 56 TAKE ONE TABLET BY MOUTH TWICE A DAY NEEDED MAXIMUM DAILY DOSE = 2 TABLETS TAKE ONE TABLET BY MOUTH TWICE A DAY NEEDED MAXIMUM DAILY DOSE = 2 TABLETS SOLD: 06/20/2020 [facility] Acetaminophen 325 MG / Hydrocodone Alayna trate 5 MG Oral Tablet [Rector] Rector 5- 325 MG Rector 5-325 MG 06/06/2020 12:00:00 AM EST 1.0 {tablet_as_needed} active Rector 5-325 MG eCW1 (Formerly [facility], [facility]) 50 mg 06/02/2020 12:00:00 AM EST tablet 60 TAKE ONE TABLET BY MOUTH TWICE A DAY WITH FOOD TAKE ONE TABLET BY MOUTH TWICE A DAY WITH FOOD SOLD: 09/05/2020 [facility] 50 mg 06/02/2020 12:00:00 AM EST tablet 60 TAKE ONE TABLET BY MOUTH TWICE A DAY WITH FOOD TAKE ONE TABLET BY MOUTH TWICE A DAY WITH FOOD SOLD: 10/04/2020 [facility] 50 mg 06/02/2020 12:00:00 AM EST tablet 60 TAKE ONE TABLET BY MOUTH TWICE A DAY WITH FOOD TAKE ONE TABLET BY MOUTH TWICE A DAY WITH FOOD SOLD: 11/05/2020 [facility] 50 mg 06/02/2020 12:00:00 AM EST tablet 60 TAKE ONE TABLET BY MOUTH TWICE A DAY WITH FOOD TAKE ONE TABLET BY MOUTH TWICE A DAY WITH FOOD SOLD: 12/06/2020 [facility] 50 mg 06/02/2020 12:00:00 AM EST tablet 60 TAKE ONE TABLET BY MOUTH TWICE A DAY WITH FOOD TAKE ONE TABLET BY MOUTH TWICE A DAY WITH FOOD SOLD: 06/07/2020 [facility] 50 mg 06/02/2020 12:00:00 AM EST tablet 60 TAKE ONE TABLET BY MOUTH TWICE A DAY WITH FOOD TAKE ONE TABLET BY MOUTH TWICE A DAY WITH FOOD SOLD: 07/08/2020 [facility] 2 mg 05/29/2020 12:00:00 AM EST tablet 112 TAKE 2 TABLETS BY MOUTH TWICE A DAY NEEDED MAX DAILY DOSE = 4 TABLETS TAKE 2 TABLETS BY MOUTH TWICE A DAY NEEDED MAX DAILY DOSE = 4 TABLETS SOLD: 05/31/2020 [facility] Acetaminophen 325 MG / Hydrocodone Alayna trate 5 MG Oral Tablet [Rector] Rector 5- 325 MG Rector 5-325 MG 05/25/2020 12:00:00 AM EDT 1.0 {tablet_as_needed} active Rector 5-325 MG eCW1 (Formerly [facility], [facility]) Acetaminophen 325 MG / Hydrocodone Alayna trate 5 MG Oral Tablet [Rector] Rector 5- 325 MG Rector 5-325 MG 05/25/2020 12:00:00 AM EDT 1.0 {tablet_as_needed} active Rector 5-325 MG eCW1 (Formerly [facility], [facility]) 5-325 mg 05/25/2020 12:00:00 AM EDT tablet 56 TAKE 1 TABLET BY MOUTH TWICE A DAY NEEDED FOR PAIN MAXIMUM DAILY DOSE = 2 TABLETS TAKE 1 TABLET BY MOUTH TWICE A DAY NEEDED FOR PAIN MAXIMUM DAILY DOSE = 2 TABLETS SOLD: 05/25/2020 [facility] Acetaminophen 325 MG / Hydrocodone Alayna trate 5 MG Oral Tablet [Rector] Rector 5- 325 MG Rector 5-325 MG 05/25/2020 12:00:00 AM EDT 1.0 {tablet_as_needed} active Rector 5-325 MG eCW1 (Formerly [facility], [facility]) Acetaminophen 325 MG / Hydrocodone Alayna trate 5 MG Oral Tablet Hydrocodone- Acetaminophen 5-325 MG Hydrocodone-Acetaminophen 5-325 MG 05/23/2020 12:00:00 AM EDT active Hydrocodone-Aceta minophen 5-325 MG eCW1 (Formerly [facility], [facility]) Rosuvastatin calcium 20 MG Oral Tablet ROSUVASTATIN CALCIUM 05/16/2020 12:00:00 AM EDT tablet 90 TAKE ONE TABLET BY MOUTH AV LY AT BEDTIME TAKE ONE TABLET BY MOUTH DAILY AT BEDTIME SOLD: 05/16/2020 [facility] Rosuvastatin calcium 20 MG Oral Tablet ROSUVASTATIN CALCIUM 05/16/2020 12:00:00 AM EDT tablet 90 TAKE ONE TABLET BY MOUTH AV LY AT BEDTIME TAKE ONE TABLET BY MOUTH DAILY AT BEDTIME SOLD: 08/17/2020 [facility] 10 gram/15 mL 05/07/2020 12:00:00 AM [...] A S NEEDED FOR 15 DAYS SOLD: 01/18/2021 [facility] 4 mg 05/04/2020 12:00:00 AM EDT tablet 45 TAKE ONE TABLET BY MOUTH EVERY 8 HOURS NEEDED FOR 15 DAYS TAKE ONE TABLET BY MOUTH EVERY 8 HOURS A S NEEDED FOR 15 DAYS SOLD: 05/04/2020 [facility] 4 mg 05/04/2020 12:00:00 AM EDT tablet 45 TAKE ONE TABLET BY MOUTH EVERY 8 HOURS NEEDED FOR 15 DAYS TAKE ONE TABLET BY MOUTH EVERY 8 HOURS A S NEEDED FOR 15 DAYS SOLD: 10/24/2020 [facility] Trazodone Hydrochloride 100 MG [...] ONE TABLET BY MOUTH AT BEDTIME SOLD: 10/01/2020 [facility] Trazodone Hydrochloride 100 MG Oral Tablet TRAZODONE HCL 04/30/2020 12:00:00 AM EDT tablet 30 TAKE ONE TABLET BY MOUTH AT BEDTIME TAKE ONE TABLET BY MOUTH AT BEDTIME SOLD: 08/28/2020 [facility] 40 mg 04/30/2020 12:00:00 AM EDT capsule,delayed release (DR/EC) 90 TAKE ONE CAPSULE BY MOUTH EVERY DAY TAKE ONE CAPSULE BY MOUTH EVERY DAY SOLD: 07/27/2020 [facility] 40 mg 04/30/2020 12:00:00 AM EDT capsule,delayed release (DR/EC) 90 TAKE ONE CAPSULE BY MOUTH EVERY DAY TAKE ONE CAPSULE BY MOUTH EVERY DAY SOLD: 04/30/2020 [facility] Trazodone Hydrochloride 100 MG Oral Tablet TRAZODONE HCL 04/30/2020 12:00:00 AM EDT tablet 30 TAKE ONE TABLET BY MOUTH AT BEDTIME TAKE ONE TABLET BY MOUTH AT BEDTIME SOLD: 07/27/2020 [facility] Trazodone Hydrochloride 100 MG Oral Tablet TRAZODONE HCL 04/30/2020 12:00:00 AM EDT tablet 30 TAKE ONE TABLET BY MOUTH AT BEDTIME TAKE ONE TABLET BY MOUTH AT BEDTIME SOLD: 05/31/2020 [facility] 5-325 mg 04/11/2020 12:00:00 AM EDT tablet 56 TAKE ONE TABLET BY MOUTH TWICE A DAY NEEDED FOR PAIN MAXIMUM DAILY DOSE = 2 TABLETS TAKE ONE TABLET BY MOUTH TWICE A DAY NEEDED FOR PAIN MAXIMUM DAILY DOSE = 2 TABLETS SOLD: 04/12/2020 [facility] 2 mg 04/03/2020 12:00:00 AM EDT tablet 100 TAKE 1 TABLET BY MOUTH EVERY 6 HOURS NEEDED FOR ANXIETY MAX DAILY DOSE = 4 TABLETS TAKE 1 TABLET BY MOUTH EVERY 6 HOURS NEEDED FOR ANXIETY MAX DAILY DOSE = 4 TABLETS SOLD: 04/07/2020 [facility] 75 mcg 02/27/2020 12:00:00 AM EDT tablet 30 TAKE ONE TABLET BY MOUTH EVERY MORNING TAKE ONE TABLET BY MOUTH EVERY MORNING SOLD: 05/04/2020 [facility] 75 mcg 02/27/2020 12:00:00 AM EDT tablet 30 TAKE ONE TABLET BY MOUTH EVERY MORNING TAKE ONE TABLET BY MOUTH EVERY MORNING SOLD: 06/25/2020 [facility] 75 mcg 02/27/2020 12:00:00 AM EDT tablet 30 TAKE ONE TABLET BY MOUTH EVERY MORNING TAKE ONE TABLET BY MOUTH EVERY MORNING SOLD: 10/04/2020 [facility] 75 mcg 02/27/2020 12:00:00 AM EDT tablet 30 TAKE ONE TABLET BY MOUTH EVERY MORNING TAKE ONE TABLET BY MOUTH EVERY MORNING SOLD: 04/09/2020 [facility] 75 mcg 02/27/2020 12:00:00 AM EDT tablet 30 TAKE ONE TABLET BY MOUTH EVERY MORNING TAKE ONE TABLET BY MOUTH EVERY MORNING SOLD: 08/17/2020 [facility] Cyclobenzaprine hydrochloride 5 MG Oral Tablet CYCLOBENZAPRI NE HCL 12/15/2019 12:00:00 AM EDT tablet 90 TAKE ONE TABLET BY MOUTH THREE TIMES A DAY NEEDED TAKE ONE TABLET BY MOUTH THREE TIMES A DAY NEEDED SOLD: 08/17/2020 [facility] Cyclobenzaprine hydrochloride 5 MG Oral Tablet CYCLOBENZAPRI NE HCL 12/15/2019 12:00:00 AM EDT tablet 90 TAKE ONE TABLET BY MOUTH THREE TIMES A DAY NEEDED TAKE ONE TABLET BY MOUTH THREE TIMES A DAY NEEDED SOLD: 06/25/2020 [facility] Cyclobenzaprine hydrochloride 5 MG Oral Tablet CYCLOBENZAPRI NE HCL 12/15/2019 12:00:00 AM EDT tablet 90 TAKE ONE TABLET BY MOUTH THREE TIMES A DAY NEEDED TAKE ONE TABLET BY MOUTH THREE TIMES A DAY NEEDED SOLD: 05/03/2020 [facility] 62.5-25 mcg/actuation 08/04/2019 12:00:00 AM EST blister wit h device 60 INHALE 1 PUFF INTO THE LUNGS DAILY INHALE 1 PUFF INTO THE LUNGS DAILY SOLD: 07/13/2020 [facility] 0.8 mg 07/06/2019 12:00:00 AM EST tablet 90 TAKE ONE TABLET BY MOUTH EVERY DAY TAKE ONE TABLET BY MOUTH EVERY DAY SOLD: 04/09/2020 [facility] Insurance Providers Payer name Policy type / Coverage type Policy ID Covered libertarian ID Covered libertarian's relationship to brock Policy Brock Plan Information Medicare C [id number] SELF [id number] MEDICARE A [id number] Self [id number] T MEDICARE 4 [id number] 1 [id number] T Medicare C [id number] SELF [id number] Medicare C [id number] SELF [id number] MEDICARE A [id number] Self [id number] MEDICARE A [id number] Self [id number] MEDICAID M [id number] Self [id number] OTHER B TRANSPLANT Self TRANSPLAN T Medicaid [facility] Healthcare S D [id number] SELF [id number] DME Jurisdiction A [facility] C [id number] SELF [id number] Medicaid [facility] Healthcare S D [id number] SELF [id number] Medicare C [id number] SELF [id number] T Medicaid [facility] Part B [id number] Self [id number] Medicaid [facility] Part B [id number] Self Medicare [facility] Medicare Primary [id number] Self Medicare [place] Primary [id number] Self 0 [id number] MEDICAID [id number] SP [id number] MEDICARE A [id number] Self [id number] DME Jurisdiction A [facility] C [id number] SELF [id number] ANSI-Commercial [id number] ANSI-Medicaid [id number] ANSI-Medicare Part B [id number] ANSI-Medicaid [id number] ANSI-Commercial [id number] ANSI-Medicare Part B [id number] ANSI-Medicaid [id number] ANSI-Commercial [id number] ANSI-Medicare Part B [id number] ANSI-Medicare Part B [id number] ANSI-Commercial [id number]-9nkx-[id number] [id number]-4bvx-[id number] ANSI-Medicaid [id number] ANSI-Commercial [id number]-r0ad-[id number]-[id number] ANSI-Medicaid [id number] ANSI-Medicare Part B [id number] ANSI-Medicare Part B [id number] ANSI-Commercial [id number] [id number] ANSI-Medicaid [id number] Medicaid [place] Medig[place] Part B [id number] Self [id number] Medicare [facility] Medicare Primary [id number] Self [id number] ANSI-Commercial [id number]-b4lp-73ff-bm7c-[id number] 7zt7k50l-o4fd-25ok-ak4x-[id number] ANSI-Medicaid [id number] ANSI-Medicare Part B [id number] ANSI-Medicaid [id number] ANSI-Commercial [id number]-6i3n-[id number] 297c244y-l087-135n-7n7i-[id number] ANSI-Medicare Part B [id number] ANSI-Commercial [id number]-ye5a-[id number] 9c54m6l8-6tq6-4asu-du8i-[id number] ANSI-Medicaid [id number] ANSI-Medicare Part B [id number] ANSI-Medicare Part B [id number] ANSI-Medicaid [id number] ANSI-Commercial 3ccez489-l630-9565-64fn-h43c2hzr9a79 8psxs600-p963-1559-29yj-t65t5lkg6e33 ANSI-Medicare Part B [id number] ANSI-Commercial vn280tsf-8g26-1693-k751-j2n644f35z64 dl097kqb-9u90-6819-z859-y4j342q42x20 ANSI-Medicaid [id number] ANSI-Commercial 9731kwpi-43q8-568q34q2-752u-oaol-0t00rbe8ltn0 0515jopj-59i4-738v60t1-893y-htgf-2i89irr8qzh1 ANSI-Medicaid [id number] ANSI-Medicare Part B [id number] Medicaid [place] Medigap Part B [id number] Self [id number] Medicare [facility] Medicare Primary [id number] Self [id number] ANSI-Commercial 234u86qp-k79f-6a84-08p4-b7m038m6974b 513h99tx-x30x-6g83-79b2-[id number] ANSI-Medicare Part B [id number] ANSI-Medicaid [id number] ANSI-Commercial [id number]-ig01-29nt-zw3o-1f2kp8j74250 lk263613-lm17-70jx-su1j-8l7yv7d25179 ANSI-Medicare Part B [id number] ANSI-Medicaid [id number] ANSI-Medicaid [id number] ANSI-Medicare Part B [id number] ANSI-Commercial lny0243l-3p23-41a1-261o-2n47307r0jov tgt7938i-1i34-20f6-020m-5e77912n1mwa ANSI-Commercial 6sscdf90-uj79-5tg6-4839-4t9lg4p9a832 5khchd16-ju21-8yl7-4882-7l6sm8n5f707 ANSI-Medicaid [id number] ANSI-Medicare Part B [id number] ANSI-Medicaid [id number] ANSI-Medicare Part B [id number] ANSI-Commercial [id number]-[id number] 0385s16h-[id number] ANSI-Medicaid [id number] ANSI-Medicare Part B [id number] ANSI-Commercial 65ln12r6-3y29-829a-4515-4938r680f819 21nn30k8-5n62-999q-3908-7024g299a936 ANSI-Medicare Part B [id number] ANSI-Commercial v4cmzmws-z51p-1v2w-z19o-c7730t8lr0t3 q3bzmffk-w58q-4d0e-y85i-e5200k7mj9s2 ANSI-Medicaid [id number] ANSI-Commercial 94jh8yy6-1848-86j4-8dlz-279gd1i9jm32 95cg7tx7-7843-42c7-3ddl-143zo7d7fp27 ANS-Medicare Part B [id number] ANSI-Medicaid [id number] ANSI-Medicare Part B [id number] ANSI-Commercial 1lic9958-dm2o-7372-857q-07733l6ralj6 7mrl4474-uo4i-3782-276h-43641a2hnrf0 ANSI-Medicaid [id number] ANSI-Medicaid [id number] ANSI-Medicare Part B [id number] 4lhe2019-5ih3-6r9c-5087-[id number] ANSI-Commercial zm68dvbr-1mc0-2529-98s0-7h820057xip7 wg22eifj-9ld2-4559-72r0-1e279976ipb6 ANSI-Commercial 4n61a69r-511e-35m8-b9d5-0op82979m721 1r37t34u-733r-49c6-[id number] ANSI-Medicare Part B [id number] ANSI-Medicaid [id number] NO FAULT [id number] Madeleine 263 -AS-GHV9363-U NO FAULT [id number] [facility] [id number] ANSI-Medicare Part B [id number] ANSI-Commercial 3p10yjjw-rs12-1o9t-7620-u14k8jbo1282 6a00uvtr-gs78-1p0v-2449-k99f0viq7699 ANSI-Medicaid [id number] ANSI-Commercial 104g60k5-4c05-3vu6-nxf2-m11ax5e56c1m 188q74f4-7z69-5fc2-hiy6-i61eq2k55d8c ANSI-Medicare Part B [id number] ANSI-Medicaid [id number] ANSI-Commercial 194l414m-oq3h-4144-fi9c-7493b9k86g78 999h830c-ya3y-8120-yt8x-4263w8k81g92 ANSI-Medicaid [id number] ANSI-Medicare Part B [id number] ANSI-Medicare Part B [id number] ANSI-Medicaid [id number] ANSI-Commercial 89h049i5-1q79-6052-q1sa-75z6194977i8 68p424j8-4x72-2878-f6tg-87p9117152n3 NO FAULT PI PI ANSI-Medicaid [id number] ANSI-Commercial b9zb3zjt-4u0d-5055-0p0s-4q6g0q80738e z7zm8unk-2b1i-1519-6s5j-9g6u9j31214q ANSI-Medicare Part B [id number] ANSI-Commercial [id number]-d191-7559-1dps-s918rj045827 p5144094-h423-4255-4sok-p707rm168053 ANSI-Medicaid [id number] ANSI-Medicare Part B [id number] ANSI-Commercial [id number]-p2f8-3l3w0wu25w27 z7924892-82w3-2598-f1f8-6u3b1fi81p71 ANSI-Medicare Part B [id number] ANSI-Medicaid [id number] ANSI-Commercial 35dv0703-5c7q-9m70-6fsb-71zk1sr4626f 64ht9510-0z6h-4s59-0eyw-95dd3va0978d ANSI-Medicaid [id number] ANSI-Medicare Part B [id number] ANSI-Commercial b5g0v999-s3w8-7p06-b4q1-8p64o02o837z w4g4g531-w5p2-6u59-t3d5-8y09d62b243o ANSI-Medicaid [id number] ANSI-Medicare Part B [id number] ANSI-Medicare Part B [id number] [facility]I-Medicaid [id number] ANSI-Commercial 906e87ig-lt36-5391-o2dc-fc6j105n49yg 418u61jo-oc60-0274-w2ey-kz0t845y20fw [facility] PART B C [id number] S [id number] ANSI-Medicare Part B [id number] [facility]I-Medicaid [id number] ANSI-Commercial [id number]-j35x96wer3v5 [id number]-o74w05wsn8v7 ANSI-Medicaid [id number] ANSI-Medicare Part B [id number] ANSI-Commercial 62212700-rp0i-69n2-08x9-i626yu4u5o94 36256379-tm1n-64u2-50p9-v853bk1u6s73 ANSI-Medicare Part B [id number] ANSI-Medicaid [id number] [id number]-3f07-[id number] ANSI-Commercial u83788oy-r7v4-20op-92q8-58t60432hw01 n15690qj-w9s8-99rq-09j9-75n19476zs34 ANSI-Medicare Part B [id number]-694s-[id number] ANSI-Commercial 6vz508s9-kq81-56n6-e978-3x6zd91f2265 8xv024f2-gj67-70t5-n165-2t4uc22v5173 ANSI-Medicaid [id number] ANSI-Medicare Part B [id number] ANSI-Medicaid [id number] ANSI-Commercial 8bp967h2-ha31-0287-39d4-972m691194c0 8bu814c1-vj60-3640-87v8-955n190340e9 ANSI-Commercial 7jl30593-5514-982a-pvz9-k61s2h4m93x7 9sy45953-6107-473o-lsl3-c29v7f2u16u6 ANSI-Medicare Part B [id number]-34zj-9en4-[id number] [facility] [id number] [facility]-Medicare Part B [id number]-s4xv-[id number] [facility] [id number] ANSI-Commercial ph51wu1v-78x8-73la-4x84-02a1836osiyb bi29vq9k-01w5-83kz-6o38-71c2180djsim ANSI-Medicare Part B [id number]-9b32-24pb7d8w0a7c ANSI-Commercial m44l16of-12gb-3g9y-6rd3-h41a11vz2f63 p77m65rt-40am-2u9g-2zk3-a77w17bs8j67 ANSI-Medicaid [id number] ANSI-Commercial 2x044j86-cu37-9494-xg9l-835r6bk44c0q 9c104x92-ff83-7747-wj7m-899z0gh79a2w [facility]Med[place] [id number] ANSI-Medicare Part B [id number]-[id number]-[id number] ANSI-Medicaid [id number] ANSI-Commercial g23qs09u-yw81-935v-onmf-wn1805555e64 d07rv43e-ew06-527j-shea-xu2003220e39 ANSI-Medicare Part B [id number]-9cp3-cuvb3o92l4b9 k5si5k1j-4912-8d1t-5wg3-yvlf2d45b6q3 ANSI-Medicaid [id number] 2qeo1fr2-1edg-71m6-2v1j-[id number] ANSI-Commercial sg75i9ho-dj14-212y-91i1-gx86yuk14g66 fn67v2da-pg25-447u-31x8-ez61dsk81j51 ANSI-Medicare Part B [id number]-[id number] 8l77c007-riom-4hcs-24g7-4kc275c13g8j ANSI-Medicare Part B [id number] ANSI-Medicaid [id number]-[id number] y4g8f48g-20b1-75se-u8kh-[id number] ANSI-Commercial wg100d14-n754-58h9-8zl1-jlvb5h58337r hz735q44-b757-20i8-2sp0-bvjw3y28471a ANSI-Medicaid [id number] ANSI-Medicare Part B [id number] [id number]-q5em-o46ul32m7o4t ANSI-Commercial m4sm981w-6haz-69tg-kmb1-69w05a971043 u3dw720n-4yjl-42im-cwj6-55u38w349227 ANSI-Medicare Part B [id number]-0ei1-up9u9h754s7j 3n412jg4-816q-02uw-9dl0-ho1n0j459h0z ANSI-Commercial 2i514428-l017-94j4-j907-15v93zpx8455 4x613332-z128-29z8-w257-29d03kxj4460 ANSI-Medicaid [id number] ANSI-Medicare Part B [id number] y6y9najy-5m32-070q-xe81-4aa51pl8vxn1 ANSI-Commercial cl09y1o0-1660-899x-2bmd-15ae1q33cr78 et22m7f2-7368-909l-9onv-96na8j21je52 ANSI-Medicaid [id number] [employer] [id number] SP [id number] ANSI-Medicare Part B [id number]-2e25-rtj3-3rmh37k9okj4 5x521d72-vweq-6i64-suo4-7zhu08x1evz6 ANSI-Medicaid [id number]-113m-i5cr-9a0p6c2h9w09 ANSI-Commercial 29c11rqb-n962-812k-a382-77m9wpe92922 86b57euy-n298-187h-y325-40h9ppm08019 OTHER NO FAULT [id number] ANSI-Commercial 5521402y-935r-913i-r127-458w353730li 5643242y-045c-474h-y259-232m327781mz ANSI-Medicaid [id number]-[id number] 0yy5o8hc-8qxi-2v3t-[id number] ANSI-Medicare Part B [id number]-[id number] 8tcym20z-9do4-271k-fpj9-44hkew22528o ANSI-Commercial 09g709b6-niyl-0w4h-5a85-azu52cqi3g63 46j190l9-udas-6i9n-7g81-xae34dpt2s22 ANSI-Medicaid [id number] 20x66zl1-2x6r-8093-du39-1q223k1d2a88 ANSI-Medicare Part B [id number] 7x8qj296-qqb4-7ik4-s741-ib73p1z55t24 ANSI-Medicare Part B [id number]-[id number] zvxk0036-9436-84jy-6015-a2355o5np4zk ANSI-Medicaid [id number]-9gws-[id number] ANSI-Commercial 19412b1i-7249-08u3-t80w-43915f2a623g 41461z2w-3850-96d2-c86p-35917h4v633a ANSI-Commercial 37iaouig-mzp6-35mb-7go2-udrj20xzt35s 81kyimxb-uok8-96ke-2jl3-lgrn06lvy60e ANSI-Medicare Part B [id number]-ow06-zll9c8v5l8nw [id number]-i1x0-7tlm-fp89-mqd1w1q7w1kw [facility] [id number]-97ah-[id number] ANSI-Commercial 2zsx70x0-34r5-1u87-g1e6-vo15544j951f 2xld82b6-74d4-8y80-s4s5-me75255b299k ANSI-Medicare Part B [id number]-[id number] 64o89o5z-4uqj-7n42-2947-319lr2p02003 [facility]-Med[place] [id number]-5gom-[id number] [facility]-Med[place] [id number]-[id number] ANSI-Commercial 14t5n0xn-56l3-329d-sq9c-t275v0qq1578 92j3l2hx-52u2-344t-id6h-e939c5hs0520 ANSI-Medicare Part B [id number]-x356-[id number] [id number]-h005-8ur1-i863-gt05z79k2y3g ANSI-Medicaid [id number] ANSI-Medicare Part B [id number]-w38m-[id number] ANSI-Commercial z3d80pi9-625q-3917-3004-498q7144u5lo v3y50ty5-805h-8321-7638-931o1401c3pe ANSI-Medicare Part B [id number]-[id number] yr398qz9-9orf-6764-kj4k-y2114p49i162 ANSI-Commercial 0o03zmcu-7ym4-4535-8m41-kg5u9z1371x5 2i06nhuv-0wl2-8133-1y82-jt8m3j7227n1 ANSI-Medicaid [id number]-[id number] ANSI-Medicare Part B [id number] [id number]-68b4-21kc-21s9e2xyu695 ANSI-Commercial 4ju39478-j97a-05sg-681q-0238cf161853 1oh36752-n38y-05bc-734a-9071bo684902 ANSI-Medicaid [id number]-k213-1h01-6192-[id number] ANSI-Medicaid [id number] ANSI-Commercial 7830248e-12x6-9y87-5e43-270y54f5710n 3388290s-69c8-8p18-7k41-892y76s1025a ANSI-Medicare Part B [id number]-[id number]-e6e8-13vq-9tvw-l21i9k9521q1 ANSI-Commercial 38s38e48-z0z7-3br3-ef75-r4ltu3hk421u 90f37g04-j5p7-5aq9-gl75-f6fyv0gz906j ANSI-Medicaid [id number]-z8di-[id number] ANSI-Medicare Part B [id number] ANSI-Medicare Part B [id number]-[id number] ANSI-Commercial 1n64r908-l5lf-6850-q945-4ximn3ctg65d 5h60z521-g1kw-4361-p894-8mbcv4anq79l ANSI-Medicaid [id number]-3i1i-[id number] [facility] [place] [id number] ANSI-Medicare Part B [id number]-r3ti-5409hblrw930 ANSI-Commercial 41n4ji90-a0ya-203e-hdp7-c61708j76bi2 66o8dv18-x7nj-016t-ehh4-w13601p88tq0 ANSI-Medicaid [id number] ANSI-Medicaid [id number]-[id number] ANSI-Commercial 028l46fs-2901-9g9t-32d7-8keh2612dw51 888b04io-0801-5a0u-29d6-1agt4080wp97 ANSI-Medicare Part B [id number]-04q7-[id number] ANSI-Medicaid [id number] ANSI-Medicare Part B [id number]-[id number] ANSI-Commercial 7ffz8384-vkg1-2698-5i2z-8m34d9q70332 6qba9465-egc6-2269-7u1g-2d96u5q82210 ANSI-Medicare Part B [id number] ANSI-Commercial [id number] ANSI-Medicaid [id number] MEDICARE [id number] T ANSI-Commercial [id number] ANSI-Medicare Part B [id number] ANSI-Medicaid [id number] MEDICARE -RECURRING [id number] 18 [id number] ANSI-Commercial [id number] ANSI-Medicare Part B [id number] ANSI-Medicaid [id number] ANSI-Medicaid [id number] ANSI-Medicare Part B [id number] ANSI-Commercial [id number] CGS [facility] C [id number] S [id number] MEDICARE C [id number] S [id number] T [facility] OPTIONS C [id number] S [id number] JEWELRY ENAMELER [id number] SP [id number] [facility] O [id number] S [id number] MEDICARE [id number] SP [id number] T MEDICARE [id number] SP [id number] T SELF PAY 2 UNAVAILABLE 1 [place] BLE [place] 3 [id number] E FIRST [employer] NOT FOR TODAYS VISIT SP NOT FOR TODAYS VISIT NYS MEDICAID [id number] SP [id number] E BIG LOTS NOT IN EFFECT SP NOT IN EFFECT MEDICARE [id number] SP [id number] EMEDNY [id number] SP [id number] MEDICARE C [id number] S [id number] MEDICAID M [id number] S [id number] MEDICARE MCA [id number] S [id number] MEDICAID HEA [id number] S [id number] MEDICARE MCA [id number] S [id number] MEDICARE [id number] SP [id number] MEDICARE C [id number] S [id number] [id number] MEDICAID [id number] SP [id number] [place] JE PART B C [id number] S [id number] MEDICARE C [id number] S [id number] MEDICARE -RECURRING [id number] 18 [id number] MEDICAID -RECURRING [id number] ANSI-Medicare Part B [id number] ANSI-Medicaid [id number] ANSI-Commercial [id number] ANS-Medicare Part B [id number] ANSI-Medicaid [id number] ANSI-Commercial [id number] Problems, Conditions, and Diagnoses Code Display Name Description Problem Type Effective Dates Data Source(s) N60.01 Solitary cyst of right breast Solitary cyst of right b reast Diagnosis 04/15/2021 07:25:18 AM [facility] Z12.31 Encounter for screening mammogram for ma lignant neoplasm of breast Encounter for screening mammogram for malignant neoplasm of breast Diagnosis 04/15/2021 07:24:48 AM [facility] R92.8 Other abnormal and inconclusive findings on diagnostic imaging of breast Other abnormal and inconclusive findings on diagnostic imaging of breast Diagnosis 08/31/2020 10:27:45 AM [facility] N63.10 Unspecified lump in the right breast, un specified quadrant Unspecified lump in the right breast, unspecified quadrant Diagnosis 021 10:27:45 AM [facility] R92.1 Mammographic calcification found on diag nostic imaging of breast Mammographic calcification found on diagnostic imaging of breast Diagnosis 08/31/2020 10:27:10 AM [facility] 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 Problem 08/03/2020 12:00:00 AM EST eCW1 (Formerly [facility]) Surgeries/Procedures Procedure Description Date Indications Data Source(s) APPLICATION SHORT ARM SPLINT FOREARM-HAND STATIC 05/08 12:00:00 AM EDT [facility] ([facility], ) Apply Cast Short Arm 04/17/2021 12:00:00 AM EDT [facility] ([facility], ) CLTX DSTL RDL FX/EPIPHYSL SEP W/MANJ WHEN PERF 021 12:00:00 AM [facility] OFFICE OUTPATIENT NEW 30 MINUTES 04/03/2021 12:00:00 A M EDT [facility], ) Echography Soft Tissue Hand & Neck 10/10/2020 12:00:00 AM EDT [facility] Results ID Date Data Source [id number] 04/16/2021 03:40:42 PM EDT [facility] Name Value Range Interpretation Code Description Data Melanie rce(s) Supporting Document(s) Progress Note [facility] PRQCYu1hGuZBVwNc19/KGVmfINByx5HgOSlpHFu6MBcvKOTxQ3KgPFT5nZ5wAPQ5PJeYStTvPqSaTXUj lbm [file] AgICAgICAgICAgICAgICAgICAgICAgICAgICAgICAg ICAgICAgICAgICAgICAgICAgICAgICAgICAgICAgDQogICAgICAgICAgICAgICAgICAgICAgICAgICAg ICAgICAgICAgICAgICAgICAgICAgICAgICAgICAgICAgICAgICAgICAgICAgICAgICAgICAgICAgICAg ICAgICAgICAgICAgDQogICAgICAgICAgICAgICAgIC AgICAgICAgICAgICAgICAgICAgICAgICAgICAgICAgICAgICAgICAgICAgICAgICAgICAgICAgICAgIC AgICAgICAgICAgICAgICAgICAgICAgDQogICAgICAgICAgICAgICAgICAgICAgICAgICAgICAgICAgIC AgICAgICAgICAgICAgICAgICAgICAgICAgICAgICAg ICAgICAgICAgICAgICAgICAgICAgICAgICAgICAgICAgDQogICAgICAgICAgICAgICAgICAgICAgICAg ICAgICAgICAgICAgICAgICAgICAgICAgICAgICAgICAgICAgICAgICAgICAgICAgICAgICAgICAgICAg ICAgICAgICAgICAgICAgDQogICAgICAgICAgICAgIC AgICAgICAgICAgICAgICAgICAgICAgICAgICAgICAgICAgICAgICAgICAgICAgICAgICAgICAgICAgIC AgICAgICAgICAgICAgICAgICAgICAgICAgDQogICAgICAgICAgICAgICAgICAgICAgICAgICAgICAgIC AgICAgICAgICAgICAgICAgICAgICAgICAgICAgICAg ICAgICAgICAgICAgICAgICAgICAgICAgICAgICAgICAgICAgDQogICAgICAgICAgICAgICAgICAgICAg ICAgICAgICAgICAgICAgICAgICAgICAgICAgICAgICAgICAgICAgICAgICAgICAgICAgICAgICAgICAg ICAgICAgICAgICAgICAgICAgDQogICAgICAgICAgIC AgICAgICAgICAgICAgICAgICAgICAgICAgICAgICAgICAgICAgICAgICAgICAgICAgICAgICAgICAgIC AgICAgICAgICAgICAgICAgICAgICAgICAgICAgDQogICAgICAgICAgICAgICAgICAgICAgICAgICAgIC AgICAgICAgICAgICAgICAgICAgICAgICAgICAgICAg ICDmLHNuSFRsLMLeCYOwXIEcRCQfWMKfLWJmMKLwTSQaYNUeUJKeVAx8P3pkKEViYNZdHI3gTWs7Cb6+ LNpPRrEsQSF6gnBdwR0FWO7lm9SiRZesEGFtg8HyPVb7VT0OQVRrVFkpEU8OBYsytw8TKOTuFYXjiXMA x8bdVfXvKYO4NNOxQlvaPZ0CJRUjH5finyMcSYXpBH GBRIxlXJTBIPblLNMAXCEhOHJjEhTsKSjpMR1Sz6UrvWJ9CYf+Al0QWQ1op3HgOPccAAOvDG2czc5XGS wGByXtK6DaegY9UAR6LQEvZy8XOWScIMJczPZaWgUwMNQFCpQjB4PdmV65FMWXMn0+DQplbmRvYmoNCj J6OWFwh9EfAGv7JZ6PWJUqOZc6gWEaYCUwY1Kub1Xv Ot71HKUpFddhJ1Wfd6SkouXKTXJahAEzrBzwUlKaFYOuGV6aXJ0yWCFeTQE8FjGdXHTSUB7AWLGyKDDs nIAgQUZzLQLPNC0YFDgtUKG2ZRMcioKzeNPqLTwyTJ4ZMDLyttQhMgQfOURGZGw+Xl5NYH1tv8PmVAoh HuNwGV1qre0XWGbHCdQbA1T8dNJqX9B0BYlpNk6XTG OvVZIqTwDzWQAAKUtkXA4SNA5fsjG1GY6GsXSpPUJnWACwpMKdBSk8E62kjZTiLKdmDG4JMXB+Bello+Pg 5MHOFfUXOsYFFkHaMbAFPGNaHdA4CuC3BSp3SzW9FrAM46oCdjlcIsCIroWC5DSZ3iOYKzFWIXCQ6EuS CsfV5ebnIkTLJdAZWYUrEzK54crGWvNQEwCTQ0JEEh Fx7XEUJmD4SjbzGonKtkwgNpIFDuOUPITI6RTSmhilGtyWGdmUgsYH84rAosMI9EFx3NQcLrQZ8bnn0E cCLuSv6LUJQbVB0GXLBlMXDsMAZyRLZ4URWsRtRqYOlrWSSfUNUcBFT0KOJsDDUtJR5DNnDlZGGiOxth VWivAREqJWIxdc6YIELbGXHaMMg1MFRrQZMoZEDpJS xzTFZnMWCaMEN6HEVhGZMkVF1UJpDzUFCnCKBcEASgKIWpYFPqni0WNNQtJGKxSHR7FsZiWPXmXEZjEL wtFRBlDUY3GoA1BQFzYHBxEA7CBlHmQOBbSGL7TrFyERKnDFLdek1QUPWfONNpRUG9HuDlBWJyQLXgHW spTLOlSWX0KOYpZXExFLKuVD6ONySzRIMdFWY5XlEw EDLhOJRxjr4QONZnGGLfZmH1TrEuHMTzZITuSQjaCELjRMHoBAWiVWCjNWMqKZ8WLdNqVOYhFXJqKoee VAZeSMQdcf0NCCQvZQDnVfPyZfIiEZLtQARtQVfxYTIqTFQ2YJpjEUFbGIIcUP1BHdNjILZcEMY8CeUl LAEyRCNucr3CSKOzLCEhFAt3AWCnYEEpLCUzENjeSM PwNSK9PvH6IUMzFQSfKN5PVbXoLGYyRjU9KiZrDZHgWABplw9JDJSdKSDrAtw6OVNtJXSaFNSdUTdiUE IaAHU7SQqfAYOuQDXrZP8UXhIrSHRiVkquNuebWPFkSHKupk6REKZmVKDkArBkUIZwUMYyNYKkGGgpMK JgGNW1KNz5EXWkVZOeLE5WFmZzAJCjDkaeQIMfSPRw UMZifb3QENLiFNRaIETnOvCxZJSxDKVoRYs4zyVfpQArPZc7IP6BD4SicwVgAvyALv1Hg490WVV2GCIc Vu1CT7jnZl0xOMFvEBSSAp0DKFs5XTY6XVSaGPUoMWS4AKJ7IkZ1DjEqUQg4CSu0MZShSEk+WNv6Ibtt X5VeSeKjZBj1AlWaGNzpFFX1TldgUjf5WzP3BN7r XSANCj4+SXdmeQJbpIxtPMETDfL9LOEoFXztIBSPQc5W ID Date Data Source [id number] 04/16/2021 03:37:21 PM [facility] MAMMO DIGITAL SCREENING BILATERAL [id number] INAL RESULTInterpreted by:Ashkan Haywood MDBILATERAL DIGITAL MAMMOGRAM WITH COMPUTER-AIDED DETECTION and BILATERAL TARGETED BREAST ULTRASOUNDHISTORY: Diagnostic exam. Follow-up of likely post biopsy changes in the right breast. The patient reports bilateral needle biopsy. The patient reports family history history of breast cancer in sister and maternal aunt.[facility] [place] risk assessment model:5 year calculated risk: 4.7%Average patient 5 year risk: 2.0%Lifetime risk: 17.0%Average patient lifetime risk: 7.8%COMPARISON: Mammograms dating back to 07/23/2015, breast ultrasound 1Last Reported Clinical Breast Exam: TodayTECHNIQUE: Craniocaudal and mediolateral oblique digital mammograms were obtained with tomosynthesis. Computer-aided detection was utilized. Targeted bilateral breast ultrasound was performed.FINDINGS:There are scattered areas of fibroglandular density (category B).On mammogram, similar appearance of biopsy clip marker in t he posterior right breast with adjacent likely post biopsy changes. A biopsy clip marker is seen in the posterior left breast. Focal asymmetry is seen in the upper outer left breast.On bilateral targeted breast ultrasound, similar appearance of a 0.5 x 0.2 x 0.5 cm complicated cyst representing postbiopsy changes in the right breast at 9/10 o'clock. Mild increased echogenicity in the superficial fat in this region of the right breast along with small cystic space, representing postbiopsy hematoma/fat necrosis. A subcentimeter cyst in the left breast at 2:00, 4 cm from the nipple appears to correlate with focal asymmetry seen mammographically.IMPRESSION: 1. Benign bilateral mammogram and bilateral targeted breast ultrasound. 2. No evidence for malignancy. 3. Recommend routine followup examination in one year. BI-RADS 2 - BENIGN FINDINGSThis document has been electronically signed by Ashkan Haywood MD on 04/16/2021 3:35 PM Name Value Range Interpretation Code Description Data Melanie rce(s) Supporting Document(s) ID Date Data Source [id number] 04/16/2021 03:37:21 PM [facility] BREAST INCLUDING AXILLA LIMITED BILAT ERAL [id number] RESULTInterpreted by:Ashkan Haywood MDBILATERAL DIGITAL MAMMOGRAM WITH COMPUTER-AIDED DETECTION and BILATERAL TARGETED BREAST ULTRASOUNDHISTORY: Diagnostic exam. Follow-up of likely post biopsy changes in the right breast. The patient reports bilateral needle biopsy. The patient reports family history history of breast cancer in sister and maternal aunt.[facility] [place] risk assessment model:5 year calculated risk: 4.7%Average patient 5 year risk: 2.0%Lifetime risk: 17.0%Average patient lifetime risk: 7.8%COMPARISON: Mammograms dating back to 07/23/2015, breast ultrasound 08/31/2020ast Reported Clinical Breast Exam: TodayTECHNIQUE: Craniocaudal and mediolateral oblique digital mammograms were obtained with tomosynthesis. Computer-aided detection was utilized. Targeted bilateral breast ultrasound was performed.FINDINGS:There are scattered areas of fibroglandular density (category B).On mammogram, similar appearance of biopsy clip marker in the posterior right breast with adjacent likely post biopsy changes. A biopsy clip marker is seen in the posterior left breast. Focal asymmetry is seen in the upper outer left breast.On bilateral targeted breast ultrasound, similar appearance of a 0.5 x 0.2 x 0.5 cm complicated cyst representing postbiopsy changes in the right breast at 9/10 o'clock. Mild increased echogenicity in the superficial fat in this region of the right breast along with small cystic space, representing postbiopsy hematoma/fat necrosis. A subcentimeter cyst in the left breast at 2:00, 4 cm from the nipple appears to correlate with focal asymmetry seen mammographically.IMPRESSION: 1. Benign bilateral mammogram and bilateral targeted breast ultrasound. 2. No evidence for malignancy. 3. Recommend routine followup examination in one year. BI-RADS 2 - BENIGN FINDINGSThis document has been electronically signed by Ashkan Haywood MD on 04/16/2021 3:35 PM Name Value Range Interpretation Code Description Data Melanie rce(s) Supporting Document(s) ID Date Data Source [id number] 03/25/2021 04:56:09 PM T [facility] Name Value Range Interpretation Code Description Data [facility] rce(s) Supporting Document(s) Progress Note [facility] HCVPXu8rWmDPYuZd99/WMOimSJYhz7BbFBuwLNl6USdbXDJoE9MtTSJ3dP0mXGV0GPuGZqDoAyHqFHHq [facility] YfCakMZmExXXVvBijRYvJyNKyrGjnhcIQxNQ9CvOM6ETExB14yLALaOUFdE5BpNUU8XDZ+Wv4UXPFdhM QeCU4XNlgJ8L8xwlZUPu+ztecPZ5sNFacf3/vhpFLlwxCgMBhskkrF+UXhaN7ZhpB2GZo/Fvt9YOh8+h s7ni6sRLZ3o98vt2g0+n00i7led366xaX8KQig/65+ [file] HWjlCAVMMx9S ID Date Data Source [id number] 01/16/2021 12:24:00 PM EDT [facility] Name Value Range Interpretation Code Description Data Melanie rce(s) Supporting Document(s) SARS coronavirus 2 RNA [Presence] in Res piratory specimen by CLARI with probe detection NEGATIVE [facility] This lab was ordered by [facility] a nd reported by [facility]. ID Date Data Source [id number] 11/08/2020 06:09:00 PM EDT [facility] Name Value Range Interpretation Code Description Data Melanie rce(s) Supporting Document(s) SARS-CoV-2 (COVID 19) NEGATIVE - SARS-CoV-2 (COVID19) [facility] This lab was ordered by [facility] a nd reported by [facility]. ID Date Data Source [id number] 09/04/2020 08:21:24 AM [facility] Name Value Range Interpretation Code Description Data Melanie rce(s) Supporting Document(s) Progress Note [facility] KLICNx7aJlIPHjWd85/LEJzgLSQhh8BiHVxvRFf7ZGirVLSwC6CkNBI3bC3qBUH8YKmAZbJnMbYzPsW0 m [file] NmEzOWIyYTFlZjI+LG5rWUt+Oc9Uy5KbswH2tfMwRRvgGAG3XN2UFUYTS1GELe== ID Date Data Source [id number] 09/04/2020 08:06:09 AM [facility] MAMMO DIGITAL DIAGNOSTIC RIGHT [id number] RESULTInterpreted by:TIA Pond DIGITAL MAMMOGRAM WITH COMPUTER-AIDED DETECTION and TARGETED RIGHT BREAST ULTRASOUNDHISTORY: Short-term follow-up after benign right breast biopsy performed at outside facility. Short-term follow-up of mass seen on ultrasound outside facility. The patient reports family history of breast cancer in maternal aunt. The patient reports multiple benign left breast biopsies in the past.[facility] [place] risk assessment model:5 year calculated risk: 2.2%Average [...] rce(s) Supporting Document(s) ID Date Data Source [id number] 09/04/2020 08:06:09 AM [facility] US BREAST INCLUDING AXILLA LIMITED RIGHT [id number] RESULTInterpreted by:TIA Pond DIGITAL MAMMOGRAM WITH COMPUTER-AIDED DETECTION and TARGETED RIGHT BREAST ULTRASOUNDHISTORY: Short-term follow-up after benign right breast biopsy performed at outside facility. Short-term follow-up of mass seen on ultrasound outside facility. The patient reports family history of breast cancer in maternal aunt. The patient reports multiple benign left breast biopsies in the past.[facility] [place] risk assessment model:5 year calculated risk: 2.2%Average [...] rce(s) Supporting Document(s) ID Date Data Source [id number] 08/01/2020 04:00:01 PM EST [facility]: Caro CarnesB: 1955Provider: Hemant Munoz: 08/01/2020 Reason For VisitSregina Carnes is here today for Left Knee. Caro Carnes is an established patient here for a new problem. Patient states that she banged her knee on a cupboard door 07/19. In the past week, she began to have a lot of pain, difficulty walking. She ended up calling ambulance and was seen at [facility] in [place]. Ambulating with walker. Was given RX for Oxycodone but not taking. Patient states they are disabled. AssessmentReason for Visit:Left knee pain.Caro is a 64-year-old female disabled was seen by me two years ago for her knees. At that time, I felt it was more her back. She has been reasonably good up until this past [place] when she had a direct injury to her knee and then developed this incapacitating pain. She was worked up in the [place] which included x-rays, CT scan and MRI [...] CVA and some coronary artery disease, hyperlipidemia, hyperparathyroidism and sleep apnea. She has atrial flutter [...] sensory is intact. Motion is quite good, 0-120, no gross laxity. Her hip moves normally.Impression:Both [...] rce(s) Supporting Document(s) ID Date Data Source [id number] 07/22/2020 11:02:00 PM EST [facility] Name Value Range Interpretation Code Description Data Melanie rce(s) Supporting Document(s) SARS coronavirus 2 RNA [Presence] in Res piratory specimen by CLARI with probe detection [facility] This lab was ordered by [facility] a nd reported by [facility]. Procedure Social History Code Duration Value Status Description Data Source(s ) Smoking 05/20/2021 12:00:00 AM EDT Non Smoker completed Non Smoke r [facility] ([facility]) Alcohol intake 04/15/2021 12:00:00 AM EDT Current non-d marisa of alcohol (finding) completed Current non-drinker of alcohol (finding) [facility] Tobacco use and exposure 04/15/2021 12:00:00 AM EDT Never used co mpleted Never used [facility] Cigarette pack-years 04/15/2021 12:00:00 AM EDT UNK completed [facility] Cigarettes smoked current (pack per day) - Reported 04/15/20 12:00:00 AM EDT UNK completed [facility] Smoking 04/15/2021 12:00:00 AM EDT Former smoker completed Former smoker [facility] Smoking 04/02/2021 12:00:00 AM EDT Former Smoker completed Former Smoker eCW1 ([facility]) Smoking 04/02/2021 12:00:00 AM EDT Former Smoker completed Former Smoker eCW1 ([facility]ly [facility]) Smoking 04/02/2021 12:00:00 AM EDT Former Smoker completed Former Smoker eCW1 ([facility]) Smoking 04/02/2021 12:00:00 AM EDT Former Smoker completed Former Smoker eCW1 ([facility]) Smoking 04/02/2021 12:00:00 AM EDT Former Smoker completed Former Smoker eCW1 ([facility]ly [facility]) Smoking 04/02/2021 12:00:00 AM EDT Former Smoker completed Former Smoker eCW1 ([facility]) Smoking 02/08/2021 12:00:00 AM EDT Former Smoker completed Former Smoker eCW1 ([facility]) Smoking 02/08/2021 12:00:00 AM EDT Former Smoker completed Former Smoker eCW1 ([facility]) Smoking 02/08/2021 12:00:00 AM EDT Former Smoker completed Former Smoker eCW1 ([facility]) Smoking 02/08/2021 12:00:00 AM EDT Former Smoker completed Former Smoker eCW1 ([facility]ly [facility]) Smoking 02/08/2021 12:00:00 AM EDT Former Smoker completed Former Smoker eCW1 ([facility]) Smoking 02/08/2021 12:00:00 AM EDT Former Smoker completed Former Smoker eCW1 ([facility]) Smoking 01/22/2021 12:00:00 AM EDT Former Smoker completed Former Smoker eCW1 ([facility]) Smoking 01/22/2021 12:00:00 AM EDT Former Smoker completed Former Smoker eCW1 ([facility]) Alcohol intake 08/31/2020 12:00:00 AM EST Current non-d marisa of alcohol (finding) completed Current non-drinker of alcohol (finding) [facility] Smoking 08/03/2020 12:00:00 AM EST Former Smoker completed Former Smoker eCW1 ([facility]ly [facility]) Smoking 08/03/2020 12:00:00 AM EST Former Smoker completed Former Smoker eCW1 ([facility]) Smoking 08/03/2020 12:00:00 AM EST Former Smoker completed Former Smoker eCW1 ([facility]) Smoking 08/03/2020 12:00:00 AM EST Former Smoker completed Former Smoker eCW1 ([facility]) Smoking 08/03/2020 12:00:00 AM EST Former Smoker completed Former Smoker eCW1 ([facility]) Smoking 08/03/2020 12:00:00 AM EST Former Smoker completed Former Smoker eCW1 ([facility]) Smoking 08/03/2020 12:00:00 AM EST Former Smoker completed Former Smoker eCW1 ([facility]) Smoking 08/03/2020 12:00:00 AM EST Former Smoker completed Former Smoker eCW1 ([facility]ly [facility]) Smoking 08/03/2020 12:00:00 AM EST Former Smoker completed Former Smoker eCW1 ([facility]) Smoking 08/03/2020 12:00:00 AM EST Former Smoker completed Former Smoker eCW1 ([facility]) Smoking 08/03/2020 12:00:00 AM EST Former Smoker completed Former Smoker eCW1 ([facility]) Smoking 08/03/2020 12:00:00 AM EST Former Smoker completed Former Smoker eCW1 ([facility]) Smoking 08/03/2020 12:00:00 AM EST Former Smoker completed Former Smoker eCW1 ([facility]) Smoking 08/03/2020 12:00:00 AM EST Former Smoker completed Former Smoker eCW1 ([facility]) Smoking 08/03/2020 12:00:00 AM EST Former Smoker completed Former Smoker eCW1 ([facility]) Smoking 08/03/2020 12:00:00 AM EST Former Smoker completed Former Smoker eCW1 ([facility]) Smoking 08/03/2020 12:00:00 AM EST Former Smoker completed Former Smoker eCW1 ([facility]) Smoking 08/03/2020 12:00:00 AM EST Former Smoker completed Former Smoker eCW1 ([facility]) Vital Signs ID Date Data Source UNK Name Value Range Interpretation Code Description Data Source(s) Body temperature 97.6 [degF] 97.6 [degF] [facility] Body temperature 96.9 [degF] 96.9 [degF] [facility] ([facility], ) Body temperature 97.0 [degF] 97.0 [degF] [facility] ([facility], ) Systolic blood pressure 112 mm[Hg] 112 mm[Hg] [facility] ([facility]) Diastolic blood pressure 76 mm[Hg] 76 mm[Hg] [facility] ([facility]) Heart rate 84 /min 84 /min [facility] ([facility]) Body temperature 96.8 [degF] 96.8 [degF] [facility] ([facility]) Body height 60 [in_i] 60 [in_i] [facility] ([facility]) 5'0" Body weight 175.12 [lb_av] 175.12 [lb_av] [facility] T ([facility]) Body mass index (BMI) [Ratio] 34.2 kg/m2 34.2 k g/m2 [facility] ([facility]) Oxygen saturation in Arterial blood by Pulse oximetry 97 % 97 % [facility] ([facility]) ID Date Data Source [id number] 03/25/2021 04:56:09 PM EDT [facility] Name Value Range Interpretation Code Description Data Source(s) PREFERRED NAME Maryjo Maryjo [facility] ID Date Data Source [id number] 03/06/2021 11:23:32 AM EDT [facility] Name Value Range Interpretation Code Description Data Source(s) PREFERRED NAME Maryjo Maryjo [facility] ID Date Data Source [id number] 03/06/2021 10:03:02 AM EDT [facility] Name Value Range Interpretation Code Description Data Source(s) PREFERRED NAME Maryjo Maryjo [facility] ID Date Data Source [id number] 03/06/2021 10:02:07 AM EDT [facility] Name Value Range Interpretation Code Description Data Source(s) PREFERRED NAME Maryjo Maryjo [facility] ID Date Data Source [id number] 08/31/2020 11:51:39 AM [facility] Name Value Range Interpretation Code Description Data Source(s) PREFERRED NAME Maryjo Maryjo [facility] ID Date Data Source [id number] 08/31/2020 11:51:23 AM EST [facility] Name Value Range Interpretation Code Description Data Source(s) PREFERRED NAME Maryjo Maryjo [facility] ID Date Data Source [id number] 08/31/2020 11:51:23 AM [facility] Name Value Range Interpretation Code Description Data Source(s) PREFERRED NAME Maryjo Maryjo [facility] ID Date Data Source [id number] 12/06/2020 12:47:45 PM EDT [facility] Name Value Range Interpretation Code Description Data Source(s) PREFERRED NAME Maryjo Maryjo [facility] ID Date Data Source [id number] 09/04/2020 08:21:24 AM [facility] Name Value Range Interpretation Code Description Data Source(s) WEIGHT RECORDED 176 lb 176 lb [facility] Body height Measured 60 in 60 in [facility] PREFERRED NAME Maryjo Maryjo [facility] PREFERRED NAME Maryjo Maryjo [facility] ID Date Data Source [id number] 09/04/2020 08:06:09 AM [facility] Name Value Range Interpretation Code Description Data Source(s) PREFERRED NAME Maryjo Maryjo [facility] PREFERRED NAME Maryjo Maryjo [facility] ID Date Data Source [id number] 09/04/2020 08:06:09 AM [facility] Name Value Range Interpretation Code Description Data Source(s) PREFERRED NAME Maryjo Maryjo [facility] PREFERRED NAME Maryjo Maryjo [facility] Patient Treatment Plan of Care Planned Activity Planned Date Details Description Data Source (s) Acetaminophen 325 MG / Hydrocodone Bitartrate 5 MG Ora l Tablet 05/21/2021 12:00:00 AM EDT eCW1 (Formerly [facility]) Diazepam 2 MG Oral Tablet 04/30/2021 12:00:00 AM EDT eCW1 (Formerly [facility], [facility]) Diazepam 2 MG Oral Tablet 04/30/2021 12:00:00 AM EDT eCW1 (Formerly [facility], [facility]) Diazepam 2 MG Oral Tablet 04/30/2021 12:00:00 AM EDT eCW1 (Formerly [facility], [facility]) Diazepam 2 MG Oral Tablet 04/30/2021 12:00:00 AM EDT eCW1 (Formerly [facility], [facility]) Diazepam 2 MG Oral Tablet 03/01/2021 12:00:00 AM EDT eCW1 (Formerly [facility], [facility]) Acetaminophen 325 MG / Oxycodone Hydrochloride 5 MG Or al Tablet 03/01/2021 12:00:00 AM EDT eCW1 (Formerly [facility]) Diazepam 2 MG Oral Tablet 03/01/2021 12:00:00 AM EDT eCW1 (Formerly [facility], [facility]) Acetaminophen 325 MG / Oxycodone Hydrochloride 5 MG Or al Tablet 03/01/2021 12:00:00 AM EDT eCW1 (Formerly [facility]) Diazepam 2 MG Oral Tablet 03/01/2021 12:00:00 AM EDT eCW1 (Formerly [facility], [facility]) Acetaminophen 325 MG / Oxycodone Hydrochloride 5 MG Or al Tablet 03/01/2021 12:00:00 AM EDT eCW1 (Formerly [facility]) Diazepam 2 MG Oral Tablet 03/01/2021 12:00:00 AM EDT eCW1 (Formerly [facility], [facility]) Acetaminophen 325 MG / Oxycodone Hydrochloride 5 MG Or al Tablet 03/01/2021 12:00:00 AM EDT eCW1 (Formerly [facility]) Acetaminophen 325 MG / Hydrocodone Bitartrate 5 MG Ora l Tablet 12/19/2020 12:00:00 AM EDT eCW1 (Formerly [facility]) Acetaminophen 325 MG / Hydrocodone Bitartrate 5 MG Ora l Tablet 12/19/2020 12:00:00 AM EDT eCW1 (Formerly [facility]) Acetaminophen 325 MG / Hydrocodone Bitartrate 5 MG Ora l Tablet 12/19/2020 12:00:00 AM EDT eCW1 (Formerly [facility]) Acetaminophen 325 MG / Hydrocodone Bitartrate 5 MG Ora l Tablet 12/19/2020 12:00:00 AM EDT eCW1 (Formerly [facility]) Acetaminophen 325 MG / Hydrocodone Bitartrate 5 MG Ora l Tablet 12/19/2020 12:00:00 AM EDT eCW1 (Formerly [facility]) Acetaminophen 325 MG / Hydrocodone Bitartrate 5 MG Ora l Tablet 12/19/2020 12:00:00 AM EDT eCW1 (Formerly [facility]) Acetaminophen 325 MG / Hydrocodone Bitartrate 5 MG Ora l Tablet 12/19/2020 12:00:00 AM EDT eCW1 (Formerly [facility]) Acetaminophen 325 MG / Hydrocodone Bitartrate 5 MG Ora l Tablet 12/19/2020 12:00:00 AM EDT eCW1 (Formerly [facility]) Acetaminophen 325 MG / Hydrocodone Bitartrate 5 MG Ora l Tablet 12/19/2020 12:00:00 AM EDT eCW1 (Formerly [facility]) Acetaminophen 325 MG / Hydrocodone Bitartrate 5 MG Ora l Tablet 10/25/2020 12:00:00 AM EDT eCW1 (Formerly [facility]) Acetaminophen 325 MG / Hydrocodone Bitartrate 5 MG Ora l Tablet 10/25/2020 12:00:00 AM EDT eCW1 (Formerly [facility]) Acetaminophen 325 MG / Hydrocodone Bitartrate 5 MG Ora l Tablet 10/25/2020 12:00:00 AM EDT eCW1 (Formerly [facility]) Acetaminophen 325 MG / Hydrocodone Bitartrate 5 MG Ora l Tablet 10/25/2020 12:00:00 AM EDT eCW1 (Formerly [facility]) Acetaminophen 325 MG / Hydrocodone Bitartrate 5 MG Ora l Tablet 10/25/2020 12:00:00 AM EDT eCW1 (Formerly [facility]) Acetaminophen 325 MG / Hydrocodone Bitartrate 5 MG Ora l Tablet 10/25/2020 12:00:00 AM EDT eCW1 (Formerly [facility]) Acetaminophen 325 MG / Hydrocodone Bitartrate 5 MG Ora l Tablet 10/25/2020 12:00:00 AM EDT eCW1 (Formerly [facility]) Acetaminophen 325 MG / Hydrocodone Bitartrate 5 MG Ora l Tablet 10/25/2020 12:00:00 AM EDT eCW1 (Formerly [facility]) Acetaminophen 325 MG / Hydrocodone Bitartrate 5 MG Ora l Tablet 10/25/2020 12:00:00 AM EDT eCW1 (Formerly [facility]) Acetaminophen 325 MG / Hydrocodone Bitartrate 5 MG Ora l Tablet 10/25/2020 12:00:00 AM EDT eCW1 (Formerly [facility]) Acetaminophen 325 MG / Hydrocodone Bitartrate 5 MG Ora l Tablet 10/25/2020 12:00:00 AM EDT eCW1 (Formerly [facility]) Acetaminophen 325 MG / Hydrocodone Bitartrate 5 MG Ora l Tablet 10/25/2020 12:00:00 AM EDT eCW1 (Formerly [facility]) Acetaminophen 325 MG / Hydrocodone Bitartrate 5 MG Ora l Tablet 10/25/2020 12:00:00 AM EDT eCW1 (Formerly [facility]) Acetaminophen 325 MG / Hydrocodone Bitartrate 5 MG Ora l Tablet 10/25/2020 12:00:00 AM EDT eCW1 (Formerly [facility]) Acetaminophen 325 MG / Hydrocodone Bitartrate 5 MG Ora l Tablet 10/25/2020 12:00:00 AM EDT eCW1 (Formerly [facility]) Acetaminophen 325 MG / Hydrocodone Bitartrate 5 MG Ora l Tablet 09/25/2020 12:00:00 AM EST eCW1 (Formerly [facility]) Acetaminophen 325 MG / Hydrocodone Bitartrate 5 MG Ora l Tablet 09/25/2020 12:00:00 AM EST eCW1 (Formerly [facility]) Acetaminophen 325 MG / Hydrocodone Bitartrate 5 MG Ora l Tablet 09/25/2020 12:00:00 AM EST eCW1 (Formerly [facility]) Acetaminophen 325 MG / Hydrocodone Bitartrate 5 MG Ora l Tablet 09/25/2020 12:00:00 AM EST eCW1 (Formerly [facility]) Acetaminophen 325 MG / Hydrocodone Bitartrate 5 MG Ora l Tablet 09/25/2020 12:00:00 AM EST eCW1 (Formerly [facility]) Acetaminophen 325 MG / Hydrocodone Bitartrate 5 MG Ora l Tablet 09/25/2020 12:00:00 AM EST eCW1 (Formerly [facility]) Acetaminophen 325 MG / Hydrocodone Bitartrate 5 MG Ora l Tablet 09/25/2020 12:00:00 AM EST eCW1 (Formerly [facility]) Acetaminophen 325 MG / Hydrocodone Bitartrate 5 MG Ora l Tablet 09/25/2020 12:00:00 AM EST eCW1 (Formerly [facility]) Acetaminophen 325 MG / Hydrocodone Bitartrate 5 MG Ora l Tablet 09/25/2020 12:00:00 AM EST eCW1 (Formerly [facility]) Acetaminophen 325 MG / Hydrocodone Bitartrate 5 MG Ora l Tablet 09/25/2020 12:00:00 AM EST eCW1 (Formerly [facility]) Acetaminophen 325 MG / Hydrocodone Bitartrate 5 MG Ora l Tablet 09/25/2020 12:00:00 AM EST eCW1 (Formerly [facility]) Acetaminophen 325 MG / Hydrocodone Bitartrate 5 MG Ora l Tablet 09/25/2020 12:00:00 AM EST eCW1 (Formerly [facility]) Acetaminophen 325 MG / Hydrocodone Bitartrate 5 MG Ora l Tablet 09/25/2020 12:00:00 AM EST eCW1 (Formerly [facility]) Acetaminophen 325 MG / Hydrocodone Bitartrate 5 MG Ora l Tablet 09/25/2020 12:00:00 AM EST eCW1 (Formerly [facility]) Acetaminophen 325 MG / Hydrocodone Bitartrate 5 MG Ora l Tablet 09/25/2020 12:00:00 AM EST eCW1 (Formerly [facility]) Acetaminophen 325 MG / Hydrocodone Bitartrate 5 MG Ora l Tablet 09/25/2020 12:00:00 AM EST eCW1 (Formerly [facility]) Acetaminophen 325 MG / Hydrocodone Bitartrate 5 MG Ora l Tablet 09/25/2020 12:00:00 AM EST eCW1 (Formerly [facility]) Acetaminophen 325 MG / Hydrocodone Bitartrate 5 MG Ora l Tablet 09/25/2020 12:00:00 AM EST eCW1 (Formerly [facility]) Acetaminophen 325 MG / Hydrocodone Bitartrate 5 MG Ora l Tablet 09/25/2020 12:00:00 AM EST eCW1 (Formerly [facility]) Acetaminophen 325 MG / Hydrocodone Bitartrate 5 MG Ora l Tablet 09/20/2020 12:00:00 AM EST eCW1 (Formerly [facility]) 30 ACTUAT umeclidinium 0.0625 MG/ACTUAT / vilanterol 0.025 MG/ACTUAT Dry Powder Inhaler [Anoro] 09/14/2020 12:00:[address] [facility] Acetaminophen 325 MG / Hydrocodone Bitartrate 5 MG Ora l Tablet 09/14/2020 12:00:00 AM EST eCW1 (Formerly [facility]) Acetaminophen 325 MG / Hydrocodone Bitartrate 5 MG Ora l Tablet 09/14/2020 12:00:00 AM EST eCW1 (Formerly [facility]) Acetaminophen 325 MG / Hydrocodone Bitartrate 5 MG Ora l Tablet 09/14/2020 12:00:00 AM EST eCW1 (Formerly [facility]) Acetaminophen 325 MG / Oxycodone Hydrochloride 5 MG Or al Tablet 08/23/2020 12:00:00 AM EST eCW1 (Formerly [facility]) Acetaminophen 325 MG / Oxycodone Hydrochloride 5 MG Or al Tablet 08/23/2020 12:00:00 AM EST eCW1 (Formerly [facility]) Acetaminophen 325 MG / Oxycodone Hydrochloride 5 MG Or al Tablet 08/23/2020 12:00:00 AM EST eCW1 (Formerly [facility]) Acetaminophen 325 MG / Oxycodone Hydrochloride 5 MG Or al Tablet 08/23/2020 12:00:00 AM EST eCW1 (Formerly [facility]) Acetaminophen 325 MG / Oxycodone Hydrochloride 5 MG Or al Tablet 08/23/2020 12:00:00 AM EST eCW1 (Formerly [facility]) Acetaminophen 325 MG / Oxycodone Hydrochloride 5 MG Or al Tablet 08/23/2020 12:00:00 AM EST eCW1 (Formerly [facility]) Acetaminophen 325 MG / Oxycodone Hydrochloride 5 MG Or al Tablet 08/23/2020 12:00:00 AM EST eCW1 (Formerly [facility]) Acetaminophen 325 MG / Oxycodone Hydrochloride 5 MG Or al Tablet 08/23/2020 12:00:00 AM EST eCW1 (Formerly [facility]) Acetaminophen 325 MG / Oxycodone Hydrochloride 5 MG Or al Tablet 08/23/2020 12:00:00 AM EST eCW1 (Formerly [facility]) Acetaminophen 325 MG / Oxycodone Hydrochloride 5 MG Or al Tablet 08/23/2020 12:00:00 AM EST eCW1 (Formerly [facility]) Acetaminophen 325 MG / Oxycodone Hydrochloride 5 MG Or al Tablet 08/23/2020 12:00:00 AM EST eCW1 (Formerly [facility]) Acetaminophen 325 MG / Oxycodone Hydrochloride 5 MG Or al Tablet 08/23/2020 12:00:00 AM EST eCW1 (Formerly [facility]) Acetaminophen 325 MG / Oxycodone Hydrochloride 5 MG Or al Tablet 08/23/2020 12:00:00 AM EST eCW1 (Formerly [facility]) Acetaminophen 325 MG / Oxycodone Hydrochloride 5 MG Or al Tablet 08/23/2020 12:00:00 AM EST eCW1 (Formerly [facility]) Acetaminophen 325 MG / Oxycodone Hydrochloride 5 MG Or al Tablet 08/23/2020 12:00:00 AM EST eCW1 (Formerly [facility]) Acetaminophen 325 MG / Oxycodone Hydrochloride 5 MG Or al Tablet 08/23/2020 12:00:00 AM EST eCW1 (Formerly [facility]) Acetaminophen 325 MG / Oxycodone Hydrochloride 5 MG Or al Tablet 08/23/2020 12:00:00 AM EST eCW1 (Formerly [facility]) Acetaminophen 325 MG / Oxycodone Hydrochloride 5 MG Or al Tablet 08/23/2020 12:00:00 AM EST eCW1 (Formerly [facility]) Acetaminophen 325 MG / Oxycodone Hydrochloride 5 MG Or al Tablet 08/23/2020 12:00:00 AM EST eCW1 (Formerly [facility]) Acetaminophen 325 MG / Hydrocodone Bitartrate 5 MG Ora l Tablet [Rector] 07/19/2020 12:00:00 AM EST eCW1 ([facility]) Acetaminophen 325 MG / Hydrocodone Bitartrate 5 MG Ora l Tablet [Rector] 07/19/2020 12:00:00 AM EST eCW1 ([facility]) Acetaminophen 325 MG / Hydrocodone Bitartrate 5 MG Ora l Tablet [Rector] 06/06/2020 12:00:00 AM EST eCW1 ([facility]) Acetaminophen 325 MG / Hydrocodone Bitartrate 5 MG Ora l Tablet [Rector] 05/25/2020 12:00:00 AM EDT eCW1 ([facility]) Acetaminophen 325 MG / Hydrocodone Bitartrate 5 MG Ora l Tablet [Rector] 05/25/2020 12:00:00 AM EDT eCW1 ([facility]) Acetaminophen 325 MG / Hydrocodone Bitartrate 5 MG Ora l Tablet [Rector] 05/25/2020 12:00:00 AM EDT eCW1 ([facility]) Acetaminophen 325 MG / Hydrocodone Bitartrate 5 MG Ora l Tablet 05/23/2020 12:00:00 AM EDT eCW1 (Formerly [facility])
--- OUTSIDE RECORDS SUMMARY | 2021-06-04 06:48 | CCD | Summary of Care ---
Author Author [facility] Organization [facility] Address Unknown Phone Unavailable Care Team Providers Care Test Center Manager Name Role Phone Aiden Nieves MD PCP Reason for Visit * Reason Comments Follow-up Encounter Details Care Team Description Date Type Department Alicia Shipman MD [address] [facility] [address]nd [address] [place] [id number] [phone] Obstructive sleep apnea syndrome (Primar y Dx); Centrilobular emphysema; Pulmonary nodules 03/20/2021 Telemedicine [facility] Pulmonary [facility] [address] [facility] [address], [address] [place] [phone] Allergies Comments Active Allergy Reactions Severity Noted Date Was on 2 antibiotics for Pneumonia (unsure of names) Other Anaphylaxis High 08/27/2016 Reaction: SWELLING Quinolones 01/22/2015 Tequin Swelling 08/25/2012 documented as of this encounter (statuses as of 03/25/2021) Medications End Date Status Medication Sig Dispensed [...] Active vitamin D Take 50,000 0 (ERGOCALCIFEROL) 99554 Units by UNITS CAPS mouth every capsuleIndications: [...] as of this encounter (statuses as of 03/25/2021) Active Problems Patient Care Coordination Note Tim [place]- overnight oximetry and O2 at night. 10/18/15 CD from [employer] uploaded into [email or web address] and returned by mail to the pt. 06/24/16 CD from [employer] uploaded into [email or web address] and returned by mail to the pt. 09/02/16 CD from [employer] uploaded into TMS and returned by mail to the pt. [...] as of this encounter (statuses as of 03/25/2021) Immunizations Name Administration Dates Next Due documented as of this encounter Social History Date Tobacco Use Types Packs/Day Years Used Quit: 07/27/2001 Former Smoker Cigarettes 2 40 Smokeless Tobacco: Never Used Comments Alcohol Use Standard Drinks/Week No 0 (1 standard drink = 0.6 o z pure alcohol) Sex Assigned at Date Recorded Not on file documented as of this encounter Last Filed Vital Signs Not on filedocumented in this encounter Progress Notes * Alicia Shipman MD - 03/20/2021 1:30 PM EDT Subjective: Patient ID: Caro Carnes is a 65 y.o. female. Cc: follow-up HPI Please note that parts of this note have been carried over from previous notes i n order to record the entire history and course of the disease over time. This is a telemedicine visit via telephone. 65 year old female, whom I have originally evaluated for shortness of breath; in the process of evaluating her dyspnea on exertion, she was found to have pulmo nary nodules and obstructive sleep apnea. I have last seen her on March 21. Since then, she remained stable from respiratory stand point. Currently, sh e denies shortness of breath on exertion or cough. She reports that her exercise capacity is mostly affected by her back and leg pains. It seems that her muscul oskeletal abnormalities prevent her from living an active life. Pulmonary nodules: nodule basically stable Moderately severe COPD: her main limitation to exercise it is due to back and rashad int pain. Last PFT was a spirometry in 2014, showing moderately severe obstructi on. Denies cough. Mild Sleep apnea: the sleep study has shown mild obstructive sleep apnea and e CPAP titration study indicated a CPAP of 14 cm H2O improved sleep quality, sno ring, apneic episodes and hypoxia. Hypoxia however, seemed to be out of proporti on to the severity of sleep apnea which makes me think that her other medical pr oblems may contribute to the severity of hypoxia. She was unable to tolerate the mask did not tolerate the CPAP and Tim remove d the CPAP machine. She is on 2 lpm nasal cannula; she is unable to keep the oxy gen on all night long. Previous history: she has a complex past medical history including ESRD on HD, h istory of intracranial bleed, cervical spondylolisthesis, initially she was refe rred to our office by her kidney doctor in [place] for evaluation of occasiona l shortness of breath. Eventually it turned out that the shortness of breath was due to volume overload. She had to have her dry weight decreased. Since then she has no longer has experienced any significant shortness of breath. The patient had a heart catheterization at [facility] "everything was good". "I h ad atrial flutter". She has a diagnosis of gastroesophageal reflux disease; currently she denies hea rtburn. The patient was removed from the kidney transplant list, allegedly due to her ne ed for supplemental oxygern at night. Patient's medications, allergies, past medical, surgical, social and family hist ories were reviewed and updated as appropriate. Past Medical History: Diagnosis Date Allergy, unspecified not elsewhere classified Anemia Anxiety Arthritis Blood transfusion without reported diagnosis 2002 CHF (congestive heart failure) Depression Diabetes mellitus Diabetes mellitus type II ESRD (end stage renal disease) ESRD (end stage renal disease) GERD (gastroesophageal reflux disease) Heart murmur Hypertension Intracerebral bleed Low back pain Sleep apnea Past Surgical History: Procedure Laterality Date BACK SURGERY BREAST BIOPSY Left 08/08/15 bcc/550 BREAST BIOPSY Right 2019 @[facility] benign per pt SECTION 1985 HYSTERECTOMY 2002 kidney stone removal 06/2019 OOPHORECTOMY TUBAL LIGATION 1985 Patient Active Problem List Diagnosis Sleep apnea Anxiety ESRD (end stage renal disease) Intracerebral bleed Cervico-occipital neuralgia Spondylosis, lumbosacral Cervical spondylosis without myelopathy Shortness of breath Chronic obstructive lung disease Vocal cord dysfunction Enlarged liver Sacroiliac joint disease History of left breast biopsy Family history of breast cancer Abnormal finding on breast imaging S/P breast biopsy, left Pulmonary nodules Encounter for screening mammogram for high-risk patient Diabetes mellitus type II HTN (hypertension) Depression Hypothyroidism Atrial fibrillation Breast calcifications on mammogram Outpatient Encounter Medications as of 03/20/2021 Medication Sig Dispense Refill Anoro Ellipta 62.5-25 MCG/INH Inhalation Aerosol Powder Breath Activated (umeclidinium-vilanterol) Inhale 1 puff into the lungs daily 1 each 5 aspirin 325 MG tablet Take 325 mg by mouth daily. BD ULTRA-FINE PEN NEEDLES 29G X 12.7MM MISC Use as directed. CALCITRIOL PO Take 0.1 mcg by mouth Three days a weekIndications: takes t ues thurs sat at dialysis CRESTOR 20 MG tablet Take 20 mg by mouth daily 5 cyclobenzaprine (FLEXERIL) 5 MG tablet Take 5 mg by mouth Three times surjit ly as needed for Muscle spasms (Back) diazepam (VALIUM) 5 MG tablet Take 5 mg by mouth every 12 (twelve) hours as needed for Anxiety or SleepIndications: usually takes at bed time only Full Spectrum B/Vitamin C 0.8 MG Oral Tablet Take 1 tablet by mouth daily hydrocodone-acetaminophen (LORTAB) 5-325 MG per tablet Take 1 tablet by m outh Two times daily as needed for Pain. insulin glargine (LANTUS) 100 UNIT/ML injection Inject 10 Units into the skin as needed KIONEX 15 GM/60ML suspension Take by mouth as needed levothyroxine (SYNTHROID, LEVOTHROID) 75 MCG tablet Take 75 mcg by mouth daily. metoprolol tartrate (LOPRESSOR) 25 MG tablet Take 25 mg by mouth Two Time s Daily Misc. Devices (DURABLE MEDICAL EQUIPMENT SEE SIG) MISC Use as directed. D x. Obstructive sleep apnea Overnight oxymetry 1 each 0 Misc. Devices (DURABLE MEDICAL EQUIPMENT SEE SIG) MISC Use as directed. D x. Obstructive sleep apnea Overnight oxymetry on 3lpm supplemental oxygen. 1 each 0 omega-3 acid ethyl esters (LOVAZA) 1 G capsule Take 2 g by mouth 2 (two) times daily. omeprazole (PRILOSEC) 40 MG capsule Take 40 mg by mouth daily. ondansetron (ZOFRAN) 4 MG tablet Take 4 mg by mouth every 8 (eight) hours as needed. SENSIPAR 30 MG tablet Take 30 mg by mouth once a week Indications: 3 x pe r week 5 sevelamer carbonate (RENVELA) 800 MG tablet Take 800 mg by mouth Three ti mes daily with meals Sucroferric Oxyhydroxide (VELPHORO PO) Take by mouth trazodone (DESYREL) 100 MG tablet Take 100 mg by mouth nightly. vitamin D (ERGOCALCIFEROL) 04437 UNITS CAPS capsule Take 50,000 Units by mouth every 14 (fourteen) days Indications: takes every other week on sundays No facility-administered encounter medications on file as of 03/20/2021. Review of Systems Constitutional: Negative for activity change, appetite change, chills, diaphores is, fatigue, fever and unexpected weight change. HENT: Negative for congestion, ear discharge, ear pain, hearing loss, postnasal drip, rhinorrhea, sinus pressure, sneezing, sore throat, trouble swallowing and voice change. Eyes: Negative for redness and itching. Respiratory: Negative for apnea, cough, choking, chest tightness and stridor. Cardiovascular: Negative for palpitations and leg swelling. Gastrointestinal: Negative for abdominal distention, abdominal pain, diarrhea, n ausea and vomiting. Genitourinary: Negative for frequency. Musculoskeletal: Positive for arthralgias, back pain, neck pain and neck stiffne ss. Negative for myalgias. Skin: Negative for color change and rash. Neurological: Positive for headaches. Negative for dizziness, seizures and weakn ess. Psychiatric/Behavioral: Positive for sleep disturbance. Negative for behavioral problems. Objective: PFTs (09/10) FVC=2.06 (69%); FEV1=1.21 (52%); FEV1/FVC=52; there is no significa nt change post BD. CT chest IMPRESSION: 1. A 2.5 mm nodule in the anterior right middle lobe and a 6 mm groundglass nodu le in the right middle lobe are unchanged. No new nodules are identified. 2. A 0.9 cm short axis anterior diaphragmatic lymph node is unchanged. No hilar or mediastinal lymphadenopathy otherwise. 3. There are two discrete mildly hyperattenuating masses in the right breast. Th naomi likely represent hematomas related to recent prior biopsies in this area, ho ver correlation is recommended in this regard. Assessment: 1. Obesity: she has lost #30 lb and maintained it. Since then her breathing a nd exercise tolerance has improved. 2. Mild obstructive sleep apnea with significant oxygen desaturation: a CPAP at 14 cm H2O and 3 lpm supplemental oxygen has been recommended. The patient was un able to tolerate the CPAP and eventually [facility] has removed the CPAP machine fo r non-compliance. She is on 2 lpm supplemental oxygen at night; she is compliant with it. I wonder whether the nocturnal hypoxia was at the time when she was m ore volume overloaded and her weight was higher. I will reorder an overnight oxy metry . 3. Moderately-severe COPD: symptoms are stable; shortness of breath is at baseli ne 3. Lung nodule: stable on the CT chest 03/21/20 (reviewed). The nodules are stabl e. There is no need for follow-up. Plan: F/u in one year Overnight oxymetry This is a tele-medical visit. The patient was informed of the risks including se curity breach, technological failure, inability to perform a comprehensive physi edu exam which could delay or prevent an accurate diagnosis, and potential compl ications from treatment decisions rendered over a telemedical platform. The avani ent understands and consented to the use of tele-health services. The service was provided by means of an audio/video telecommunication. Time spent on this evaluation today: 15 minutes documented in this encounter Plan of Treatment Care Team Description Date Type Specialty 04/15/2021 Appointment Radiology 04/15/2021 Appointment Radiology Raya Bains NP [address] [place] [address] [phone] 04/15/2021 Office Visit Breast Surgery Health Maintenance Due Date Last Done Comments MMR Vaccines (1 of 1 - 11/20/1956 Standard series) Pneumococcal Vaccine: 65+ 11/20/1961 Years (1 of 4 - PCV13) Pneumococcal Vaccine: [birth year]20/1961 Pediatrics (0 to 5 Years) and At-Risk Patients (6 to 64 Years) (1 of 4 - PCV13) DTaP,Tdap,and Td Vaccines 11/20/1962 (1 - Tdap) Varicella Vaccines (1 of 10/10/2019 08/15/2019 2 - 2-dose childhood series) Zoster Vaccines (2 of 2) 10/10/2019 08/15/2019 Osteoporosis Screening 2 11/20/2020 yr Influenza Vaccine 04/26/2021 04/10/2020 Breast Cancer Screening 2 08/31/2022 08/31/2020, years 02/20/2020, 02/03/2020, Additional history exists Colon Cancer Screening 10 06/05/2024 06/05/2014 yrs Hepatitis B Vaccines Aged Out 09/18/2012, No longer eligible based on patient's age to 06/10/2012, complete this topic 05/06/2012, Additional history exists Hepatitis C Screening (B. 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
--- OUTSIDE RECORDS SUMMARY | 2021-06-04 06:49 | CCD ---
Author Author [facility] Organization [facility] Address Unknown Phone Unavailable Care Team Providers Care Propeller Mechanic Name Role Phone Levy Munoz MD Unavailable [...] S Lucio MD Unavailable Unavailable Greenky, S Ulcio MD Unavailable Unavailable Greenky, S Lucio MD [...] Unavailable SAVICI, A RIDGE TAVERA Unavailable Unavailable Fahsel CELL TUBER HAND, CELL TUBER HAND L Stacy CELL TUBER HAND Unavailable + 24 Fahsel CELL TUBER HAND, CELL TUBER HAND L Stacy CELL TUBER HAND Unavailable + 24 Fahsel CELL TUBER HAND, CELL TUBER HAND L Stacy CELL TUBER HAND Unavailable + 24 Fahsel CELL TUBER HAND, CELL TUBER HAND L Stacy CELL TUBER HAND Unavailable + 24 Fahsel CELL TUBER HAND, CELL TUBER HAND L Stacy CELL TUBER HAND Unavailable + 24 Fahsel CELL TUBER HAND, CELL TUBER HAND L Stacy CELL TUBER HAND Unavailable + 24 Fahsel CELL TUBER HAND, CELL TUBER HAND L Stacy CELL TUBER HAND Unavailable + 24 Fahsel CELL TUBER HAND, CELL TUBER HAND L Stacy CELL TUBER HAND Unavailable + 24 Fahsel CELL TUBER HAND, CELL TUBER HAND L Stacy CELL TUBER HAND Unavailable + 24 Fahsel CELL TUBER HAND, CELL TUBER HAND L Stacy CELL TUBER HAND Unavailable + 24 Fahsel CELL TUBER HAND, CELL TUBER HAND L Stacy CELL TUBER HAND Unavailable + 24 Fahsel CELL TUBER HAND, CELL TUBER HAND L Stacy CELL TUBER HAND Unavailable + 24 Fahsel CELL TUBER HAND, CELL TUBER HAND L Stacy CELL TUBER HAND Unavailable + 24 Fahsel CELL TUBER HAND, CELL TUBER HAND L Stacy CELL TUBER HAND Unavailable + 24 Fahsel CELL TUBER HAND, CELL TUBER HAND L Stacy CELL TUBER HAND Unavailable + 24 Fahsel CELL TUBER HAND, CELL TUBER HAND L Stacy CELL TUBER HAND Unavailable + 24 Fael CELL TUBER HAND, CELL TUBER HAND L Stacy CELL TUBER HAND Unavailable + 24 Fahsel CELL TUBER HAND, CELL TUBER HAND L Stacy CELL TUBER HAND Unavailable + 24 Fahsel CELL TUBER HAND, CELL TUBER HAND L Stacy CELL TUBER HAND Unavailable + 24 Fahsel CELL TUBER HAND, CELL TUBER HAND L Stacy CELL TUBER HAND Unavailable + 24 Fael CELL TUBER HAND, CELL TUBER HAND L Stacy CELL TUBER HAND Unavailable + 24 Fael CELL TUBER HAND, CELL TUBER HAND L Stacy CELL TUBER HAND Unavailable + 24 Fahsel CELL TUBER HAND, CELL TUBER HAND L Stacy CELL TUBER HAND Unavailable + 24 ABDULKADIR REED MD Unavailable [...] Unavailable Roman Nieves MD Unavailable Unavailable Roman Nivees MD Unavailable Unavailable Roman Nieves MD Unavailable [...] Unavailable Unavailable Roman Nieves MD Unavailable Unavailable Jackson, Roman Wolfe MD Unavailable Unavailable Jackson, Roman Wolfe MD Unavailable Unavailable Lizbeth, Roman Wolfe MD Unavailable Unavailable Lizbeth, Roman Wolfe MD Unavailable Unavailable Jackson, Roman Wolfe MD Unavailable Unavailable Jackson, Roman Wolfe MD Unavailable Unavailable Lizbeth, Roman Wolfe MD Unavailable Unavailable Jackson, Roman Wolfe MD Unavailable Unavailable Lizbeth, Roman Wolfe MD Unavailable Unavailable Jackson, Roman Wolfe MD Unavailable Unavailable Jackson, Roman Wolfe MD Unavailable Unavailable Lizbeth, Roman Wolfe MD Unavailable Unavailable Lizbeth, Roman Wolfe MD Unavailable Unavailable Lizbeth, Roman Wolfe MD Unavailable Unavailable Lizbeth, Roman Wolfe MD Unavailable Unavailable Jackson, Roman Wolfe MD Unavailable Unavailable FAHSSanyd QUIROZISTIN Unavailable Unavailable Duca, A Vicky CELL TUBER HAND-C Unavailable Unavailable Duca, A Vicky CELL TUBER HAND-C Unavailable Unavailable Duca, A Vicky CELL TUBER HAND-C Unavailable Unavailable Duca, A Vicky CELL TUBER HAND-C Unavailable Unavailable Duca, A Vicky CELL TUBER HAND-C Unavailable Unavailable Duca, A Vicky CELL TUBER HAND-C Unavailable Unavailable Duca, A Vicky CELL TUBER HAND-C Unavailable Unavailable Duca, A Vicky CELL TUBER HAND-C Unavailable Unavailable Duca, A Vicky CELL TUBER HAND-C Unavailable Unavailable Duca, A Vicky CELL TUBER HAND-C Unavailable Unavailable Duca, A Vicky CELL TUBER HAND-C Unavailable Unavailable Duca, A Vicky CELL TUBER HAND-C Unavailable Unavailable Duca, A Vicky CELL TUBER HAND-C Unavailable Unavailable Duca, A Vicky CELL TUBER HAND-C Unavailable Unavailable Duca, A Vicky CELL TUBER HAND-C Unavailable Unavailable Duca, A Vicky CELL TUBER HAND-C Unavailable Unavailable Duca, A Vicky CELL TUBER HAND-C Unavailable Unavailable Duca, A Vicky CELL TUBER HAND-C Unavailable Unavailable Duca, A Vicky CELL TUBER HAND-C Unavailable Unavailable Duca, A Vicky CELL TUBER HAND-C Unavailable Unavailable Duca, A Vicky CELL TUBER HAND-C Unavailable Unavailable Duca, A Vicky CELL TUBER HAND-C Unavailable Unavailable Duca, A Vicky CELL TUBER HAND-C Unavailable Unavailable Duca, A Vicky CELL TUBER HAND-C Unavailable Unavailable Duca, A Vicky CELL TUBER HAND-C Unavailable Unavailable Duca, A Vicky CELL TUBER HAND-C Unavailable Unavailable Duca, A Vicky CELL TUBER HAND-C Unavailable Unavailable Duca, A Vicky CELL TUBER HAND-C Unavailable Unavailable Duca, A Vicky CELL TUBER HAND-C Unavailable Unavailable Duca, A Vicky CELL TUBER HAND-C Unavailable Unavailable Duca, A Vicky CELL TUBER HAND-C Unavailable Unavailable Duca, A Vicky CELL TUBER HAND-C Unavailable Unavailable Duca, A Vicky CELL TUBER HAND-C Unavailable Unavailable Duca, A Vicky CELL TUBER HAND-C Unavailable Unavailable Duca, A Vicky CELL TUBER HAND-C Unavailable Unavailable Duca, A Vicky CELL TUBER HAND-C Unavailable Unavailable Duca, A Vicky CELL TUBER HAND-C Unavailable Unavailable Re-disclosure Warning The records that [...] is protected by Article 27-F of the [facility] Public Health law. If you continue you may have access to information: Regarding HIV / AIDS; Provided by facilities licensed or operated by the [facility] Office of Mental Health; or Provided by the [facility] Office for People With Developmental Disabilities. If such information is present, then the following [facility] mandated warning applies: This information has been [...] law may result in a fine or mcc sentence or both. A general authorization for the release of medical or other information is NOT sufficient authorization for further disc losure. Family History Family Member Name Family Member Gender Family Member Status Date o f Status Description Data Source(s) Unknown Unknown Problem MEDENT ([facility]) Unknown Unknown Problem MEDENT ([facility]) Unknown Female Problem MEDENT ([facility]) Encounters Encounter Providers Location Date Indications Data Source(s ) Outpatient Referrer: STACY CORDERO 04/16/2022 12:00:00 AM [facility] Outpatient Attender: Vicky SHEIKH 04/16/2022 12:00:00 AM EDT [facility] [place] [address] [address] 05/21/2021 12:00:00 AM EDT eCW1 ([facility]) Office Visit Attender: ABDULKADIR Smith/Jessica/Clem/ Reindl 05/20/2021 02:20:00 PM EDT MEDENT ([facility], ) [place] [address] [facility] [address] 05/20/2021 12:00:00 AM EDT eCW1 ([facility]) Office Visit Attender: ABDULKADIR Smith/Jessica/Clem/ Reindl 05/08/2021 09:20:00 AM EDT [facility] ([facility]) [place] [address] [facility] [address] 05/01/2021 12:00:00 AM EDT eCW1 ([facility]) [place] [address] [address] 04/30/2021 12:00:00 AM EDT eCW1 ([facility]) Office Visit Attender: ABDULKADIR Smith/Jessica/Clem/ Reindl 04/17/2021 09:20:00 AM EDT [facility]ENT ([facility] Outpatient Attender: STACY Minor nder: ORQUIDEA Cordero NPReferrer: STACY CORDERO [id number] 04/15/2021 12:00:00 AM EDT - 04/15/2021 08:53:43 AM [facility] Outpatient Referrer: STACY CORDERO 04/15/2021 12:00 :00 AM EDT Encounter for screening mammogram for malignant neoplasm of breast [facility] Encounter for screening mammogram for ma lignant neoplasm of breast Outpatient Referrer: STACY CORDERO 04/15/2021 12:00 :00 AM EDT Solitary cyst of right breast [facility] Solitary cyst of right breast Outpatient Attender: ABDULKADIR Smith/Jessica/Clem/ Reindl 04/03/2021 10:00:00 AM EDT [facility] ([facility] [place] [address] [facility] [address] 04/02/2021 12:00:00 AM EDT eCW1 ([facility]) Outpatient Attender: RIDGE BAKER MDReferrer: Aiden Nieves MD [id number] 03/20/2021 12:00:00 AM EDT - 03/20/2021 03:32:54 PM [facility] Outpatient Attender: ORQUIDEA Cordero NPAttender: STACY CORDEROReferrer: STACY CORDERO 03/08/2021 12:00:00 AM [facility] Outpatient Referrer: STACY CORDERO 03/08/2021 12:00:00 AM [facility] Outpatient Referrer: STACY CORDERO 03/08/2021 12:00:00 AM [facility] Outpatient Attender: STACY CORDERO 03/07/2021 12:00:00 AM [facility] Outpatient Referrer: STACY CORDERO 03/07/2021 12:00:00 AM [facility] Outpatient Referrer: STACY CORDERO 03/07/2021 12:00:00 AM [facility] [place] [address] [address] 03/06/2021 12:00:00 AM EDT eCW1 ([facility]) Outpatient Attender: RIDGE BAKER MD 03/05/2021 12:00:00 AM [facility] Unknown [address] [address] 03/04/2021 12:00:00 AM EDT eCW1 ([facility]) [place] [address] [facility] [address] 03/01/2021 12:00:00 AM EDT eCW1 ([facility]) [place] [address] [facility] [address] 03/01/2021 12:00:00 AM EDT eCW1 ([facility]) [place] [address] [facility] [address] 02/27/2021 12:00:00 AM EDT eCW1 ([facility]) [place] [address] [facility] [address] 02/11/2021 12:00:00 AM EDT eCW1 ([facility]) [place] [address] [facility] [address] 02/11/2021 12:00:00 AM EDT eCW1 ([facility]) [place] [address] [facility] [address] 01/09/2021 12:00:00 AM EDT eCW1 ([facility]) [place] [address] [facility] [address] 01/09/2021 12:00:00 AM EDT eCW1 ([facility]) [place] [address] [facility] [address] 12/31/2020 12:00:00 AM EDT eCW1 ([facility]) [place] [address] [facility] [address] 12/13/2020 12:00:00 AM EDT eCW1 ([facility]) [place] [address] [facility] [address] 11/23/2020 12:00:00 AM EDT eCW1 ([facility]) [place] [address] [facility] [address] 11/15/2020 12:00:00 AM EDT eCW1 ([facility]) [place] [address] [facility] [address] 11/14/2020 12:00:00 AM EDT eCW1 ([facility]) [place] [address] [facility] [address] 11/12/2020 12:00:00 AM EDT eCW1 ([facility]) [place] [address] [facility] [address] 10/25/2020 12:00:00 AM EDT eCW1 ([facility]) [place] [address] [facility] [address] 10/24/2020 12:00:00 AM EDT eCW1 ([facility]) [place] [address] [facility] [address] 10/24/2020 12:00:00 AM EDT eCW1 ([facility]) Outpatient Attender: Emily Barboza MD Physical Therapy 10/10 02:15:00 PM EDT [facility] ([facility]) [place] [address] [address] 10/05/2020 12:00:00 AM EST eCW1 ([facility]) [place] [address] [facility] [address] 10/01/2020 12:00:00 AM EST eCW1 ([facility]) [place] [address] [facility] [address] 09/28/2020 12:00:00 AM EST eCW1 ([facility]) [place] [address] [facility] [address] 09/24/2020 12:00:00 AM EST eCW1 ([facility]) [place] [address] [facility] [address] 09/20/2020 12:00:00 AM EST eCW1 ([facility]) [place] [address] [facility] [address] 09/14/2020 12:00:00 AM EST eCW1 ([facility]) [place] [address] [facility] [address] 09/12/2020 12:00:00 AM EST eCW1 ([facility]) Outpatient Attender: STACY CORDEROReferrer: STACY CORDERO [id number] 08/31/2020 12:00:00 AM EST - 08/31/2020 11:51:33 AM EST Encounter for screening mammogram for malignant neoplasm of breast [facility] Encounter for screening mammogram for ma lignant neoplasm of breast Outpatient Referrer: STACY CORDERO 08/31/2020 12:00 :00 AM EST Mammographic calcification found on diagnostic imaging of breast [facility] Mammographic calcification found on diag nostic imaging of breast Outpatient Referrer: STACY CORDERO 08/31/2020 12:00 :00 AM EST Unspecified lump in the right breast, unspecified quadrant [facility] Unspecified lump in the right breast, un specified quadrant [place] [address] [address] 08/27/2020 12:00:00 AM EST eCW1 ([facility]) Unknown [address] [place] [address] 08/23/2020 12:00:00 AM EST eCW1 ([facility]) Outpatient Attender: STACY CORDEROReferrer: STACY CORDERO 08/08/2020 12:00:00 AM [facility] Outpatient Referrer: STACY CORDERO 08/08/2020 12:00:00 AM [facility] Outpatient Referrer: STACY CORDERO 08/08/2020 12:00:00 AM [facility] Outpatient Attender: Lucio Munoz MDReferrer: Aiden Nieves MD 08/01/2020 04:00:01 PM EST [facility] Recurring Patient Attender: Lucio Munoz MDReferrer: Aiden Gilmore dd, MD 08/01/2020 12:19:42 PM EST [facility] [place] [address] [address] 07/30/2020 12:00:00 AM EST eCW1 ([facility]) [place] [address] [facility] [address] 07/23/2020 12:00:00 AM EST eCW1 ([facility]) Unknown [address] [facility] [address] 07/16/2020 12:00:00 AM EST eCW1 ([facility]) Unknown [address] [facility] [address] 06/06/2020 12:00:00 AM EST eCW1 ([facility]) [place] [address] [facility] [address] 06/01/2020 12:00:00 AM EST eCW1 ([facility]) Outpatient Referrer: STACY CORDERO 05/28/2020 12:00:00 AM [facility] Outpatient Attender: STACY CORDEROReferrer: STACY CORDERO 05/28/2020 12:00:00 AM [facility] Unknown [address] [address] 05/24/2020 12:00:00 AM EDT eCW1 ([facility]) [place] [address] [facility] [address] 05/23/2020 12:00:00 AM EDT eCW1 ([facility]) [place] [address] [facility] [address] 05/17/2020 12:00:00 AM EDT eCW1 ([facility]) [place] [address] [facility] [address] 05/14/2020 12:00:00 AM EDT eCW1 ([facility]) Outpatient Attender: STACY CORDEROReferrer: STACY CORDERO 05/11/2020 12:00:00 AM [facility] Outpatient Referrer: STACY CORDERO 05/11/2020 12:00:00 AM [facility] Unknown [address] [facility] [address] 05/01/2020 12:00:00 AM EDT [facility] [place] [address] [facility] [address] 04/26/2020 12:00:00 AM EDT eCW1 ([facility]) Outpatient [id number] 04/17/2020 10:46:52 AM EDT [facility] Outpatient Referrer: STACY CORDERO 04/09/2020 12:00:00 AM EDT [facility] Outpatient Attender: STACY CORDERO 04/09/2020 12:00:00 AM EDT [facility] Immunizations Vaccine Date Status Description Data Source(s) COVID-19 VACCINE Moderna 10/20/2020 12:00:00 AM EDT completed [facility] Vaccine Series Complete: YESThis Data wa s Submitted to [facility] [employer]. COVID-19 VACCINE Moderna 09/22/2020 12:00:00 AM EST completed [facility] Vaccine Series Complete: NOThis Data was Submitted to [facility] [employer]. Medications Medication Brand Name Start Date Product [...] DAILY DOSE = 2 TABLETS SOLD: 05/22/2021 [facility] Acetaminophen 325 MG / Hydrocodone Alayna trate 5 MG Oral Tablet HYDROcodone- Acetaminophen 5-325 MG HYDROcodone-Acetaminophen 5-325 MG 05/21/2021 12:00:00 AM EDT 1.0 {tablet_as_needed} active HYDROcodone-Acetaminophen 5-325 MG eCW1 ([facility]) Rosuvastatin calcium 20 MG Oral Tablet ROSUVASTATIN [...] {tablet_as_needed} active d iazePAM 2 MG eCW1 ([facility]) Diazepam 2 MG Oral Tablet diazePAM 2 MG diazePAM 2 MG 04/30/2021 12:00:00 AM EDT 2.0 {tablet_as_needed} active d iazePAM 2 MG eCW1 ([facility]) Diazepam 2 MG Oral Tablet diazePAM 2 MG diazePAM 2 MG 04/30/2021 12:00:00 AM EDT 2.0 {tablet_as_needed} active d iazePAM 2 MG eCW1 ([facility]) Diazepam 2 MG Oral Tablet diazePAM 2 MG diazePAM 2 MG 04/30/2021 12:00:00 AM EDT 2.0 {tablet_as_needed} active d iazePAM 2 MG eCW1 ([facility]) Acetaminophen 325 MG / Hydrocodone Bitartrate [...] {tablet_as_needed} active d iazePAM 2 MG eCW1 ([facility]) Acetaminophen 325 MG / Oxycodone Hydroch loride 5 MG Oral Tablet oxyCODONE- Acetaminophen 5-325 MG oxyCODONE-Acetaminophen 5-325 MG 03/01/2021 12:00:00 A M EDT 1.0 {tablet_as_needed} suspended oxyCODONE-Acetaminophen 5-325 MG eCW1 ([facility]) Acetaminophen 325 MG / Oxycodone Hydroch loride 5 MG Oral Tablet oxyCODONE- Acetaminophen 5-325 MG oxyCODONE-Acetaminophen 5-325 MG 03/01/2021 12:00:00 A M EDT 1.0 {tablet_as_needed} active o xyCODONE-Acetaminophen 5-325 MG eCW1 ([facility]) Acetaminophen 325 MG / Oxycodone Hydroch loride 5 MG Oral Tablet oxyCODONE- Acetaminophen 5-325 MG oxyCODONE-Acetaminophen 5-325 MG 03/01/2021 12:00:00 A M EDT 1.0 {tablet_as_needed} suspended oxyCODONE-Acetaminophen 5-325 MG eCW1 ([facility]) Acetaminophen 325 MG / Oxycodone Hydroch loride 5 MG Oral Tablet oxyCODONE- Acetaminophen 5-325 MG oxyCODONE-Acetaminophen 5-325 MG 03/01/2021 12:00:00 A M EDT 1.0 {tablet_as_needed} suspended oxyCODONE-Acetaminophen 5-325 MG eCW1 ([facility]) Acetaminophen 325 MG / Oxycodone Hydroch loride 5 MG Oral Tablet oxyCODONE- Acetaminophen 5-325 MG oxyCODONE-Acetaminophen 5-325 MG 03/01/2021 12:00:00 A M EDT 1.0 {tablet_as_needed} active o xyCODONE-Acetaminophen 5-325 MG eCW1 ([facility]) 5-325 mg 03/01/2021 12:00:00 AM EDT tablet 84 TAKE ONE TABLET BY MOUTH EVERY 8 HOURS NEEDED FOR SEVERE PAIN MAX 3TABS/DAY TAKE ONE TABLET BY MOUTH EVERY 8 HOURS NEEDED FOR SEVERE PAIN MAX 3TABS/DAY SOLD: 03/04/2021 [facility] Diazepam 2 MG Oral Tablet diazePAM 2 MG diazePAM 2 MG 03/01/2021 12:00:00 AM EDT 2.0 {tablet_as_needed} active d iazePAM 2 MG eCW1 ([facility]) Acetaminophen 325 MG / Oxycodone Hydroch loride 5 MG Oral Tablet oxyCODONE- Acetaminophen 5-325 MG oxyCODONE-Acetaminophen 5-325 MG 03/01/2021 12:00:00 A M EDT 1.0 {tablet_as_needed} active o xyCODONE-Acetaminophen 5-325 MG eCW1 ([facility]) Diazepam 2 MG Oral Tablet diazePAM 2 MG diazePAM 2 MG 03/01/2021 12:00:00 AM EDT 2.0 {tablet_as_needed} active d iazePAM 2 MG eCW1 ([facility]) Diazepam 2 MG Oral Tablet diazePAM 2 MG diazePAM 2 MG 03/01/2021 12:00:00 AM EDT 2.0 {tablet_as_needed} active d iazePAM 2 MG eCW1 ([facility]) Diazepam 2 MG Oral Tablet diazePAM 2 MG diazePAM 2 MG 03/01/2021 12:00:00 AM EDT 2.0 {tablet_as_needed} active d iazePAM 2 MG eCW1 ([facility]) Acetaminophen 325 MG / Oxycodone Hydroch loride 5 MG Oral Tablet oxyCODONE- Acetaminophen 5-325 MG oxyCODONE-Acetaminophen 5-325 MG 03/01/2021 12:00:00 A M EDT 1.0 {tablet_as_needed} active o xyCODONE-Acetaminophen 5-325 MG eCW1 ([facility]) Acetaminophen 325 MG / Oxycodone Hydroch loride 5 MG Oral Tablet oxyCODONE- Acetaminophen 5-325 MG oxyCODONE-Acetaminophen 5-325 MG 03/01/2021 12:00:00 A M EDT 1.0 {tablet_as_needed} suspended oxyCODONE-Acetaminophen 5-325 MG eCW1 ([facility]) Acetaminophen 325 MG / Oxycodone Hydroch loride 5 MG Oral Tablet oxyCODONE- Acetaminophen 5-325 MG oxyCODONE-Acetaminophen 5-325 MG 03/01/2021 12:00:00 A M EDT 1.0 {tablet_as_needed} suspended oxyCODONE-Acetaminophen 5-325 MG eCW1 ([facility]) Acetaminophen 325 MG / Oxycodone Hydroch loride 5 MG Oral Tablet oxyCODONE- Acetaminophen 5-325 MG oxyCODONE-Acetaminophen 5-325 MG 03/01/2021 12:00:00 A M EDT 1.0 {tablet_as_needed} suspended oxyCODONE-Acetaminophen 5-325 MG eCW1 ([facility]) Diazepam 2 MG Oral Tablet diazePAM 2 MG diazePAM 2 MG 03/01/2021 12:00:00 AM EDT 2.0 {tablet_as_needed} active d iazePAM 2 MG eCW1 ([facility]) 50 mg 02/12/2021 12:00:00 AM EDT tablet [...] 1.0 {tablet_as_needed} active HYDROcodone-Acetaminophen 5-325 MG eCW1 ([facility]) Acetaminophen 325 MG / Hydrocodone Alayna trate 5 MG Oral Tablet HYDROcodone- Acetaminophen 5-325 MG HYDROcodone-Acetaminophen 5-325 MG 12/19/2020 12:00:00 AM EDT 1.0 {tablet_as_needed} active HYDROcodone-Acetaminophen 5-325 MG eCW1 ([facility]) Acetaminophen 325 MG / Hydrocodone Alayna trate 5 MG Oral Tablet HYDROcodone- Acetaminophen 5-325 MG HYDROcodone-Acetaminophen 5-325 MG 12/19/2020 12:00:00 AM EDT 1.0 {tablet_as_needed} active HYDROcodone-Acetaminophen 5-325 MG eCW1 ([facility]) Acetaminophen 325 MG / Hydrocodone Alayna trate 5 MG Oral Tablet HYDROcodone- Acetaminophen 5-325 MG HYDROcodone-Acetaminophen 5-325 MG 12/19/2020 12:00:00 AM EDT 1.0 {tablet_as_needed} active HYDROcodone-Acetaminophen 5-325 MG eCW1 ([facility]) Acetaminophen 325 MG / Hydrocodone Alayna trate 5 MG Oral Tablet HYDROcodone- Acetaminophen 5-325 MG HYDROcodone-Acetaminophen 5-325 MG 12/19/2020 12:00:00 AM EDT 1.0 {tablet_as_needed} active HYDROcodone-Acetaminophen 5-325 MG eCW1 ([facility]) Acetaminophen 325 MG / Hydrocodone Alayna trate 5 MG Oral Tablet HYDROcodone- Acetaminophen 5-325 MG HYDROcodone-Acetaminophen 5-325 MG 12/19/2020 12:00:00 AM EDT 1.0 {tablet_as_needed} active HYDROcodone-Acetaminophen 5-325 MG eCW1 ([facility]) Acetaminophen 325 MG / Hydrocodone Alayna trate 5 MG Oral Tablet HYDROcodone- Acetaminophen 5-325 MG HYDROcodone-Acetaminophen 5-325 MG 12/19/2020 12:00:00 AM EDT 1.0 {tablet_as_needed} active HYDROcodone-Acetaminophen 5-325 MG eCW1 ([facility]) Acetaminophen 325 MG / Hydrocodone Alayna trate 5 MG Oral Tablet HYDROcodone- Acetaminophen 5-325 MG HYDROcodone-Acetaminophen 5-325 MG 12/19/2020 12:00:00 AM EDT 1.0 {tablet_as_needed} active HYDROcodone-Acetaminophen 5-325 MG eCW1 ([facility]) Acetaminophen 325 MG / Hydrocodone Alayna trate 5 MG Oral Tablet HYDROcodone- Acetaminophen 5-325 MG HYDROcodone-Acetaminophen 5-325 MG 12/19/2020 12:00:00 AM EDT 1.0 {tablet_as_needed} active HYDROcodone-Acetaminophen 5-325 MG eCW1 ([facility]) Acetaminophen 325 MG / Hydrocodone Alayna trate 5 MG Oral Tablet Hydrocodone- Acetaminophen 5-325 MG Hydrocodone-Acetaminophen 5-325 MG 12/19/2020 12:00:00 AM EDT 1.0 {tablet_as_needed} active Hydrocodone-Acetaminophen 5-325 MG eCW1 ([facility]) Acetaminophen 325 MG / Hydrocodone Alyana trate 5 MG Oral Tablet HYDROcodone- Acetaminophen 5-325 MG HYDROcodone-Acetaminophen 5-325 MG 12/19/2020 12:00:00 AM EDT 1.0 {tablet_as_needed} active HYDROcodone-Acetaminophen 5-325 MG eCW1 ([facility]) Acetaminophen 325 MG / Hydrocodone Alayna trate 5 MG Oral Tablet Hydrocodone- Acetaminophen 5-325 MG Hydrocodone-Acetaminophen 5-325 MG 12/19/2020 12:00:00 AM EDT 1.0 {tablet_as_needed} active Hydrocodone-Acetaminophen 5-325 MG eCW1 ([facility]) Acetaminophen 325 MG / Hydrocodone Alayna trate 5 MG Oral Tablet HYDROcodone- Acetaminophen 5-325 MG HYDROcodone-Acetaminophen 5-325 MG 12/19/2020 12:00:00 AM EDT 1.0 {tablet_as_needed} active HYDROcodone-Acetaminophen 5-325 MG eCW1 ([facility]) Acetaminophen 325 MG / Hydrocodone Alayna trate 5 MG Oral Tablet HYDROcodone- Acetaminophen 5-325 MG HYDROcodone-Acetaminophen 5-325 MG 12/19/2020 12:00:00 AM EDT 1.0 {tablet_as_needed} active HYDROcodone-Acetaminophen 5-325 MG eCW1 ([facility]) Acetaminophen 325 MG / Hydrocodone Alayna trate 5 MG Oral Tablet HYDROcodone- Acetaminophen 5-325 MG HYDROcodone-Acetaminophen 5-325 MG 12/19/2020 12:00:00 AM EDT 1.0 {tablet_as_needed} active HYDROcodone-Acetaminophen 5-325 MG eCW1 ([facility]) Cyclobenzaprine hydrochloride 5 MG Oral Tablet CYCLOBENZAPRI [...] EDT active Hydrocodone-Aceta minophen 5-325 MG eCW1 ([facility]) Acetaminophen 325 MG / Hydrocodone Alayna trate 5 MG Oral Tablet HYDROcodone- Acetaminophen 5-325 MG HYDROcodone-Acetaminophen 5-325 MG 10/25/2020 12:00:00 AM EDT active HYDROcodone-Aceta minophen 5-325 MG eCW1 ([facility]) Acetaminophen 325 MG / Hydrocodone Alayna trate 5 MG Oral Tablet Hydrocodone- Acetaminophen 5-325 MG Hydrocodone-Acetaminophen 5-325 MG 10/25/2020 12:00:00 AM EDT active Hydrocodone-Aceta minophen 5-325 MG eCW1 ([facility]) Acetaminophen 325 MG / Hydrocodone Alayna trate 5 MG Oral Tablet HYDROcodone- Acetaminophen 5-325 MG HYDROcodone-Acetaminophen 5-325 MG 10/25/2020 12:00:00 AM EDT active HYDROcodone-Aceta minophen 5-325 MG eCW1 ([facility]) Acetaminophen 325 MG / Hydrocodone Alayna trate 5 MG Oral Tablet Hydrocodone- Acetaminophen 5-325 MG Hydrocodone-Acetaminophen 5-325 MG 10/25/2020 12:00:00 AM EDT 1.0 {tablet_as_needed} active Hydrocodone-Acetaminophen 5-325 MG eCW1 ([facility]) Acetaminophen 325 MG / Hydrocodone Alayna trate 5 MG Oral Tablet HYDROcodone- Acetaminophen 5-325 MG HYDROcodone-Acetaminophen 5-325 MG 10/25/2020 12:00:00 AM EDT suspended HYDROcodone-Ac etaminophen 5-325 MG eCW1 ([facility]) Acetaminophen 325 MG / Hydrocodone Alayna trate 5 MG Oral Tablet HYDROcodone- Acetaminophen 5-325 MG HYDROcodone-Acetaminophen 5-325 MG 10/25/2020 12:00:00 AM EDT active HYDROcodone-Aceta minophen 5-325 MG eCW1 ([facility]) Acetaminophen 325 MG / Hydrocodone Alayna trate 5 MG Oral Tablet Hydrocodone- Acetaminophen 5-325 MG Hydrocodone-Acetaminophen 5-325 MG 10/25/2020 12:00:00 AM EDT 1.0 {tablet_as_needed} active Hydrocodone-Acetaminophen 5-325 MG eCW1 ([facility]) Acetaminophen 325 MG / Hydrocodone Alayna trate 5 MG Oral Tablet Hydrocodone- Acetaminophen 5-325 MG Hydrocodone-Acetaminophen 5-325 MG 10/25/2020 12:00:00 AM EDT 1.0 {tablet_as_needed} active Hydrocodone-Acetaminophen 5-325 MG eCW1 ([facility]) Acetaminophen 325 MG / Hydrocodone Alayna trate 5 MG Oral Tablet HYDROcodone- Acetaminophen 5-325 MG HYDROcodone-Acetaminophen 5-325 MG 10/25/2020 12:00:00 AM EDT active HYDROcodone-Aceta minophen 5-325 MG eCW1 ([facility]) Acetaminophen 325 MG / Hydrocodone Alayna trate 5 MG Oral Tablet Hydrocodone- Acetaminophen 5-325 MG Hydrocodone-Acetaminophen 5-325 MG 10/25/2020 12:00:00 AM EDT active Hydrocodone-Aceta minophen 5-325 MG eCW1 ([facility]) Acetaminophen 325 MG / Hydrocodone Alayna trate 5 MG Oral Tablet Hydrocodone- Acetaminophen 5-325 MG Hydrocodone-Acetaminophen 5-325 MG 10/25/2020 12:00:00 AM EDT active Hydrocodone-Aceta minophen 5-325 MG eCW1 ([facility]) Acetaminophen 325 MG / Hydrocodone Alayna trate 5 MG Oral Tablet HYDROcodone- Acetaminophen 5-325 MG HYDROcodone-Acetaminophen 5-325 MG 10/25/2020 12:00:00 AM EDT active HYDROcodone-Aceta minophen 5-325 MG eCW1 ([facility]) Acetaminophen 325 MG / Hydrocodone Alayna trate 5 MG Oral Tablet HYDROcodone- Acetaminophen 5-325 MG HYDROcodone-Acetaminophen 5-325 MG 10/25/2020 12:00:00 AM EDT active HYDROcodone-Aceta minophen 5-325 MG eCW1 ([facility]) Acetaminophen 325 MG / Hydrocodone Alayna trate 5 MG Oral Tablet Hydrocodone- Acetaminophen 5-325 MG Hydrocodone-Acetaminophen 5-325 MG 10/25/2020 12:00:00 AM EDT 1.0 {tablet_as_needed} active Hydrocodone-Acetaminophen 5-325 MG eCW1 ([facility]) Acetaminophen 325 MG / Hydrocodone Alayna trate 5 MG Oral Tablet Hydrocodone- Acetaminophen 5-325 MG Hydrocodone-Acetaminophen 5-325 MG 10/25/2020 12:00:00 AM EDT active Hydrocodone-Aceta minophen 5-325 MG eCW1 ([facility]) 5-325 mg 10/25/2020 12:00:00 AM EDT tablet [...] EDT suspended HYDROcodone-Ac etaminophen 5-325 MG eCW1 ([facility]) Acetaminophen 325 MG / Hydrocodone Alayna trate 5 MG Oral Tablet HYDROcodone- Acetaminophen 5-325 MG HYDROcodone-Acetaminophen 5-325 MG 10/25/2020 12:00:00 AM EDT active HYDROcodone-Aceta minophen 5-325 MG eCW1 ([facility]) Acetaminophen 325 MG / Hydrocodone Alay[place] trate 5 MG Oral Tablet Hydrocodone- Acetaminophen 5-325 MG Hydrocodone-Acetaminophen 5-325 MG 10/25/2020 12:00:00 AM EDT active Hydrocodone-Aceta minophen 5-325 MG eCW1 ([facility]) Acetaminophen 325 MG / Hydrocodone Alayna trate 5 MG Oral Tablet Hydrocodone- Acetaminophen 5-325 MG Hydrocodone-Acetaminophen 5-325 MG 10/25/2020 12:00:00 AM EDT active Hydrocodone-Aceta minophen 5-325 MG eCW1 ([facility]) Acetaminophen 325 MG / Hydrocodone Al[place] trate 5 MG Oral Tablet HYDROcodone- Acetaminophen 5-325 MG HYDROcodone-Acetaminophen 5-325 MG 10/25/2020 12:00:00 AM EDT suspended HYDROcodone-Ac etaminophen 5-325 MG eCW1 ([facility]) Acetaminophen 325 MG / Hydrocodone Alay[place] trate 5 MG Oral Tablet Hydrocodone- Acetaminophen 5-325 MG Hydrocodone-Acetaminophen 5-325 MG 10/25/2020 12:00:00 AM EDT 1.0 {tablet_as_needed} active Hydrocodone-Acetaminophen 5-325 MG eCW1 ([facility]) Acetaminophen 325 MG / Hydrocodone Alay[place] trate 5 MG Oral Tablet Hydrocodone- Acetaminophen 5-325 MG Hydrocodone-Acetaminophen 5-325 MG 10/25/2020 12:00:00 AM EDT 1.0 {tablet_as_needed} active Hydrocodone-Acetaminophen 5-325 MG eCW1 ([facility]) Acetaminophen 325 MG / Hydrocodone Al[place] trate 5 MG Oral Tablet HYDROcodone- Acetaminophen 5-325 MG HYDROcodone-Acetaminophen 5-325 MG 10/25/2020 12:00:00 AM EDT suspended HYDROcodone-Ac etaminophen 5-325 MG eCW1 ([facility]) Acetaminophen 325 MG / Hydrocodone [place] trate 5 MG Oral Tablet HYDROcodone- Acetaminophen 5-325 MG HYDROcodone-Acetaminophen 5-325 MG 10/25/2020 12:00:00 AM EDT suspended HYDROcodone-Ac etaminophen 5-325 MG eCW1 ([facility]) Acetaminophen 325 MG / Hydrocodone Alay[place] trate 5 MG Oral Tablet HYDROcodone- Acetaminophen 5-325 MG HYDROcodone-Acetaminophen 5-325 MG 10/25/2020 12:00:00 AM EDT suspended HYDROcodone-Ac etaminophen 5-325 MG eCW1 ([facility]) Acetaminophen 325 MG / Hydrocodone Alayna trate 5 MG Oral Tablet Hydrocodone- Acetaminophen 5-325 MG Hydrocodone-Acetaminophen 5-325 MG 10/25/2020 12:00:00 AM EDT active Hydrocodone-Aceta minophen 5-325 MG eCW1 ([facility]) Acetaminophen 325 MG / Hydrocodone [place] trate 5 MG Oral Tablet HYDROcodone- Acetaminophen 5-325 MG HYDROcodone-Acetaminophen 5-325 MG 10/25/2020 12:00:00 AM EDT active HYDROcodone-Aceta minophen 5-325 MG eCW1 ([facility]) Trazodone Hydrochloride 100 MG Oral Tablet TRAZODONE [...] THREE TIMES A DAY NEEDED SOLD: 10/31/2020 [facility] Cyclobenzaprine hydrochloride 5 MG Oral Tablet [...] THREE TIMES A DAY NEEDED SOLD: 10/02/2020 [facility] Cyclobenzaprine hydrochloride 5 MG Oral Tablet CYCLOBENZAPRI NE HCL 10/02/2020 12:00:00 AM EST tablet 90 TAKE ONE TABLET BY MOUTH THREE TIMES A DAY NEEDED TAKE ONE TABLET BY MOUTH THREE TIMES A DAY NEEDED SOLD: 04/20/2021 [facility] Acetaminophen 325 MG / Hydrocodone Alayna trate 5 MG Oral Tablet Hydrocodone- Acetaminophen 5-325 MG Hydrocodone-Acetaminophen 5-325 MG 09/25/2020 12:00:00 AM EST 1.0 {tablet_as_needed} active Hydrocodone-Acetaminophen 5-325 MG eCW1 ([facility]) Acetaminophen 325 MG / Hydrocodone Alayna trate 5 MG Oral Tablet HYDROcodone- Acetaminophen 5-325 MG HYDROcodone-Acetaminophen 5-325 MG 09/25/2020 12:00:00 AM EST 1.0 {tablet_as_needed} active HYDROcodone-Acetaminophen 5-325 MG eCW1 ([facility]) Acetaminophen 325 MG / Hydrocodone Alayna trate 5 MG Oral Tablet HYDROcodone- Acetaminophen 5-325 MG HYDROcodone-Acetaminophen 5-325 MG 09/25/2020 12:00:00 AM EST 1.0 {tablet_as_needed} active HYDROcodone-Acetaminophen 5-325 MG eCW1 ([facility]) Acetaminophen 325 MG / Hydrocodone Al[place] trate 5 MG Oral Tablet Hydrocodone- Acetaminophen 5-325 MG Hydrocodone-Acetaminophen 5-325 MG 09/25/2020 12:00:00 AM EST active Hydrocodone-Aceta minophen 5-325 MG eCW1 ([facility]) Acetaminophen 325 MG / Hydrocodone Alay[place] trate 5 MG Oral Tablet HYDROcodone- Acetaminophen 5-325 MG HYDROcodone-Acetaminophen 5-325 MG 09/25/2020 12:00:00 AM EST 1.0 {tablet_as_needed} active HYDROcodone-Acetaminophen 5-325 MG eCW1 ([facility]) Acetaminophen 325 MG / Hydrocodone Al[place] trate 5 MG Oral Tablet HYDROcodone- Acetaminophen 5-325 MG HYDROcodone-Acetaminophen 5-325 MG 09/25/2020 12:00:00 AM EST 1.0 {tablet_as_needed} active HYDROcodone-Acetaminophen 5-325 MG eCW1 ([facility]) Acetaminophen 325 MG / Hydrocodone Alay[place] trate 5 MG Oral Tablet Hydrocodone- Acetaminophen 5-325 MG Hydrocodone-Acetaminophen 5-325 MG 09/25/2020 12:00:00 AM EST 1.0 {tablet_as_needed} active Hydrocodone-Acetaminophen 5-325 MG eCW1 ([facility]) Acetaminophen 325 MG / Hydrocodone [place] trate 5 MG Oral Tablet HYDROcodone- Acetaminophen 5-325 MG HYDROcodone-Acetaminophen 5-325 MG 09/25/2020 12:00:00 AM EST 1.0 {tablet_as_needed} active HYDROcodone-Acetaminophen 5-325 MG eCW1 ([facility]) Acetaminophen 325 MG / Hydrocodone Al[place] trate 5 MG Oral Tablet Hydrocodone- Acetaminophen 5-325 MG Hydrocodone-Acetaminophen 5-325 MG 09/25/2020 12:00:00 AM EST active Hydrocodone-Aceta minophen 5-325 MG eCW1 ([facility]) 5-325 mg 09/25/2020 12:00:00 AM EST tablet [...] 1.0 {tablet_as_needed} active Hydrocodone-Acetaminophen 5-325 MG eCW1 ([facility]) Acetaminophen 325 MG / Hydrocodone [place] trate 5 MG Oral Tablet HYDROcodone- Acetaminophen 5-325 MG HYDROcodone-Acetaminophen 5-325 MG 09/25/2020 12:00:00 AM EST 1.0 {tablet_as_needed} active HYDROcodone-Acetaminophen 5-325 MG eCW1 ([facility]) Acetaminophen 325 MG / Hydrocodone [place] trate 5 MG Oral Tablet Hydrocodone- Acetaminophen 5-325 MG Hydrocodone-Acetaminophen 5-325 MG 09/25/2020 12:00:00 AM EST 1.0 {tablet_as_needed} active Hydrocodone-Acetaminophen 5-325 MG eCW1 ([facility]) Acetaminophen 325 MG / Hydrocodone Alay[place] trate 5 MG Oral Tablet Hydrocodone- Acetaminophen 5-325 MG Hydrocodone-Acetaminophen 5-325 MG 09/25/2020 12:00:00 AM EST 1.0 {tablet_as_needed} active Hydrocodone-Acetaminophen 5-325 MG eCW1 ([facility]) Acetaminophen 325 MG / Hydrocodone Alay[place] trate 5 MG Oral Tablet Hydrocodone- Acetaminophen 5-325 MG Hydrocodone-Acetaminophen 5-325 MG 09/25/2020 12:00:00 AM EST 1.0 {tablet_as_needed} active Hydrocodone-Acetaminophen 5-325 MG eCW1 ([facility]) Acetaminophen 325 MG / Hydrocodone Alay[place] trate 5 MG Oral Tablet Hydrocodone- Acetaminophen 5-325 MG Hydrocodone-Acetaminophen 5-325 MG 09/25/2020 12:00:00 AM EST 1.0 {tablet_as_needed} active Hydrocodone-Acetaminophen 5-325 MG eCW1 ([facility]) Acetaminophen 325 MG / Hydrocodone [place] trate 5 MG Oral Tablet Hydrocodone- Acetaminophen 5-325 MG Hydrocodone-Acetaminophen 5-325 MG 09/25/2020 12:00:00 AM EST 1.0 {tablet_as_needed} active Hydrocodone-Acetaminophen 5-325 MG eCW1 ([facility]) Acetaminophen 325 MG / Hydrocodone [place] trate 5 MG Oral Tablet HYDROcodone- Acetaminophen 5-325 MG HYDROcodone-Acetaminophen 5-325 MG 09/25/2020 12:00:00 AM EST 1.0 {tablet_as_needed} active HYDROcodone-Acetaminophen 5-325 MG eCW1 ([facility]) Acetaminophen 325 MG / Hydrocodone Al[place] trate 5 MG Oral Tablet HYDROcodone- Acetaminophen 5-325 MG HYDROcodone-Acetaminophen 5-325 MG 09/25/2020 12:00:00 AM EST 1.0 {tablet_as_needed} active HYDROcodone-Acetaminophen 5-325 MG eCW1 ([facility]) Acetaminophen 325 MG / Hydrocodone Al[place] trate 5 MG Oral Tablet HYDROcodone- Acetaminophen 5-325 MG HYDROcodone-Acetaminophen 5-325 MG 09/25/2020 12:00:00 AM EST 1.0 {tablet_as_needed} active HYDROcodone-Acetaminophen 5-325 MG eCW1 ([facility]) Acetaminophen 325 MG / Hydrocodone Alayna trate 5 MG Oral Tablet HYDROcodone- Acetaminophen 5-325 MG HYDROcodone-Acetaminophen 5-325 MG 09/25/2020 12:00:00 AM EST 1.0 {tablet_as_needed} active HYDROcodone-Acetaminophen 5-325 MG eCW1 ([facility]) Acetaminophen 325 MG / Hydrocodone Alayna trate 5 MG Oral Tablet HYDROcodone- Acetaminophen 5-325 MG HYDROcodone-Acetaminophen 5-325 MG 09/25/2020 12:00:00 AM EST 1.0 {tablet_as_needed} active HYDROcodone-Acetaminophen 5-325 MG eCW1 ([facility]) Acetaminophen 325 MG / Hydrocodone Alayna trate 5 MG Oral Tablet HYDROcodone- Acetaminophen 5-325 MG HYDROcodone-Acetaminophen 5-325 MG 09/25/2020 12:00:00 AM EST 1.0 {tablet_as_needed} active HYDROcodone-Acetaminophen 5-325 MG eCW1 ([facility]) Acetaminophen 325 MG / Hydrocodone Alayna trate 5 MG Oral Tablet Hydrocodone- Acetaminophen 5-325 MG Hydrocodone-Acetaminophen 5-325 MG 09/25/2020 12:00:00 AM EST 1.0 {tablet_as_needed} active Hydrocodone-Acetaminophen 5-325 MG eCW1 ([facility]) Acetaminophen 325 MG / Hydrocodone Alay[place] trate 5 MG Oral Tablet HYDROcodone- Acetaminophen 5-325 MG HYDROcodone-Acetaminophen 5-325 MG 09/25/2020 12:00:00 AM EST 1.0 {tablet_as_needed} active HYDROcodone-Acetaminophen 5-325 MG eCW1 ([facility]) Acetaminophen 325 MG / Hydrocodone Alay[place] trate 5 MG Oral Tablet Hydrocodone- Acetaminophen 5-325 MG Hydrocodone-Acetaminophen 5-325 MG 09/25/2020 12:00:00 AM EST 1.0 {tablet_as_needed} active Hydrocodone-Acetaminophen 5-325 MG eCW1 ([facility]) Acetaminophen 325 MG / Hydrocodone Al[place] trate 5 MG Oral Tablet Hydrocodone- Acetaminophen 5-325 MG Hydrocodone-Acetaminophen 5-325 MG 09/25/2020 12:00:00 AM EST active Hydrocodone-Aceta minophen 5-325 MG eCW1 ([facility]) Acetaminophen 325 MG / Hydrocodone Alayna trate 5 MG Oral Tablet Hydrocodone- Acetaminophen 5-325 MG Hydrocodone-Acetaminophen 5-325 MG 09/25/2020 12:00:00 AM EST active Hydrocodone-Aceta minophen 5-325 MG eCW1 ([facility]) Acetaminophen 325 MG / Hydrocodone [place] trate 5 MG Oral Tablet Hydrocodone- Acetaminophen 5-325 MG Hydrocodone-Acetaminophen 5-325 MG 09/25/2020 12:00:00 AM EST 1.0 {tablet_as_needed} active Hydrocodone-Acetaminophen 5-325 MG eCW1 ([facility]) Acetaminophen 325 MG / Hydrocodone [place] trate 5 MG Oral Tablet Hydrocodone- Acetaminophen 5-325 MG Hydrocodone-Acetaminophen 5-325 MG 09/25/2020 12:00:00 AM EST active Hydrocodone-Aceta minophen 5-325 MG eCW1 ([facility]) Acetaminophen 325 MG / Hydrocodone [place] trate 5 MG Oral Tablet Hydrocodone- Acetaminophen 5-325 MG Hydrocodone-Acetaminophen 5-325 MG 09/25/2020 12:00:00 AM EST 1.0 {tablet_as_needed} active Hydrocodone-Acetaminophen 5-325 MG eCW1 ([facility]) Acetaminophen 325 MG / Hydrocodone [place] trate 5 MG Oral Tablet HYDROcodone- Acetaminophen 5-325 MG HYDROcodone-Acetaminophen 5-325 MG 09/25/2020 12:00:00 AM EST 1.0 {tablet_as_needed} active HYDROcodone-Acetaminophen 5-325 MG eCW1 ([facility]) Acetaminophen 325 MG / Hydrocodone [place] trate 5 MG Oral Tablet Hydrocodone- Acetaminophen 5-325 MG Hydrocodone-Acetaminophen 5-325 MG 09/25/2020 12:00:00 AM EST 1.0 {tablet_as_needed} active Hydrocodone-Acetaminophen 5-325 MG eCW1 ([facility]) Acetaminophen 325 MG / Hydrocodone [place] trate 5 MG Oral Tablet Hydrocodone- Acetaminophen 5-325 MG Hydrocodone-Acetaminophen 5-325 MG 09/20/2020 12:00:00 AM EST active Hydrocodone-Aceta minophen 5-325 MG eCW1 ([facility]) 62.5-25 mcg/actuation 09/15/2020 12:00:00 AM EST blister [...] EST active Hydrocodone-Aceta minophen 5-325 MG eCW1 ([facility]) 30 ACTUAT umeclidinium 0.0625 MG/ACTUAT / vilanterol 0.025 MG/ACTUAT Dry Powder Inhaler [Anoro] Anoro Ellipta 62.5-25 MCG/INH Inhalation Aerosol Powder Breath Activated (umeclidinium-vilanterol) Anoro Ellipta 62.5-25 MCG/INH Inhalation Aerosol Powder Breath Activated (umeclidinium-vilanterol) 09/14/2020 12:00:00 AM EST 1 {puff} Inhalation active Inhale 1 pu ff into the lungs daily [facility] Acetaminophen 325 MG / Hydrocodone Alayna trate 5 MG Oral Tablet Hydrocodone- Acetaminophen 5-325 MG Hydrocodone-Acetaminophen 5-325 MG 09/14/2020 12:00:00 AM EST active Hydrocodone-Aceta minophen 5-325 MG eCW1 ([facility]) 2 mg 09/14/2020 12:00:00 AM EST tablet [...] EST active Hydrocodone-Aceta minophen 5-325 MG eCW1 ([facility]) 5 % 09/12/2020 12:00:00 AM EST adhesive [...] {tablet_as_needed} active O xycodone-Acetaminophen 5-325 MG eCW1 ([facility]) Acetaminophen 325 MG / Oxycodone Hydroch loride 5 MG Oral Tablet Oxycodone- Acetaminophen 5-325 MG Oxycodone-Acetaminophen 5-325 MG 08/23/2020 12:00:00 A M EST 1.0 {tablet_as_needed} active O xycodone-Acetaminophen 5-325 MG eCW1 ([facility]) Acetaminophen 325 MG / Oxycodone Hydroch loride 5 MG Oral Tablet Oxycodone- Acetaminophen 5-325 MG Oxycodone-Acetaminophen 5-325 MG 08/23/2020 12:00:00 A M EST 1.0 {tablet_as_needed} active O xycodone-Acetaminophen 5-325 MG eCW1 ([facility]) Acetaminophen 325 MG / Oxycodone Hydroch loride 5 MG Oral Tablet Oxycodone- Acetaminophen 5-325 MG Oxycodone-Acetaminophen 5-325 MG 08/23/2020 12:00:00 A M EST 1.0 {tablet_as_needed} active O xycodone-Acetaminophen 5-325 MG eCW1 ([facility]) Acetaminophen 325 MG / Oxycodone Hydroch loride 5 MG Oral Tablet Oxycodone- Acetaminophen 5-325 MG Oxycodone-Acetaminophen 5-325 MG 08/23/2020 12:00:00 A M EST 1.0 {tablet_as_needed} active O xycodone-Acetaminophen 5-325 MG eCW1 ([facility]) Acetaminophen 325 MG / Oxycodone Hydroch loride 5 MG Oral Tablet Oxycodone- Acetaminophen 5-325 MG Oxycodone-Acetaminophen 5-325 MG 08/23/2020 12:00:00 A M EST 1.0 {tablet_as_needed} active O xycodone-Acetaminophen 5-325 MG eCW1 ([facility]) Acetaminophen 325 MG / Oxycodone Hydroch loride 5 MG Oral Tablet Oxycodone- Acetaminophen 5-325 MG Oxycodone-Acetaminophen 5-325 MG 08/23/2020 12:00:00 A M EST 1.0 {tablet_as_needed} active O xycodone-Acetaminophen 5-325 MG eCW1 ([facility]) Acetaminophen 325 MG / Oxycodone Hydroch loride 5 MG Oral Tablet Oxycodone- Acetaminophen 5-325 MG Oxycodone-Acetaminophen 5-325 MG 08/23/2020 12:00:00 A M EST 1.0 {tablet_as_needed} active O xycodone-Acetaminophen 5-325 MG eCW1 ([facility]) Acetaminophen 325 MG / Oxycodone Hydroch loride 5 MG Oral Tablet Oxycodone- Acetaminophen 5-325 MG Oxycodone-Acetaminophen 5-325 MG 08/23/2020 12:00:00 A M EST 1.0 {tablet_as_needed} active O xycodone-Acetaminophen 5-325 MG eCW1 ([facility]) Acetaminophen 325 MG / Oxycodone Hydroch loride 5 MG Oral Tablet Oxycodone- Acetaminophen 5-325 MG Oxycodone-Acetaminophen 5-325 MG 08/23/2020 12:00:00 A M EST 1.0 {tablet_as_needed} active O xycodone-Acetaminophen 5-325 MG eCW1 ([facility]) Acetaminophen 325 MG / Oxycodone Hydroch loride 5 MG Oral Tablet oxyCODONE- Acetaminophen 5-325 MG oxyCODONE-Acetaminophen 5-325 MG 08/23/2020 12:00:00 A M EST 1.0 {tablet_as_needed} active o xyCODONE-Acetaminophen 5-325 MG eCW1 ([facility]) Acetaminophen 325 MG / Oxycodone Hydroch loride 5 MG Oral Tablet Oxycodone- Acetaminophen 5-325 MG Oxycodone-Acetaminophen 5-325 MG 08/23/2020 12:00:00 A M EST 1.0 {tablet_as_needed} active O xycodone-Acetaminophen 5-325 MG eCW1 ([facility]) Acetaminophen 325 MG / Oxycodone Hydroch loride 5 MG Oral Tablet oxyCODONE- Acetaminophen 5-325 MG oxyCODONE-Acetaminophen 5-325 MG 08/23/2020 12:00:00 A M EST 1.0 {tablet_as_needed} active o xyCODONE-Acetaminophen 5-325 MG eCW1 ([facility]) Acetaminophen 325 MG / Oxycodone Hydroch loride 5 MG Oral Tablet Oxycodone- Acetaminophen 5-325 MG Oxycodone-Acetaminophen 5-325 MG 08/23/2020 12:00:00 A M EST 1.0 {tablet_as_needed} active O xycodone-Acetaminophen 5-325 MG eCW1 ([facility]) Acetaminophen 325 MG / Oxycodone Hydroch loride 5 MG Oral Tablet oxyCODONE- Acetaminophen 5-325 MG oxyCODONE-Acetaminophen 5-325 MG 08/23/2020 12:00:00 A M EST 1.0 {tablet_as_needed} active o xyCODONE-Acetaminophen 5-325 MG eCW1 ([facility]) Acetaminophen 325 MG / Oxycodone Hydroch loride 5 MG Oral Tablet Oxycodone- Acetaminophen 5-325 MG Oxycodone-Acetaminophen 5-325 MG 08/23/2020 12:00:00 A M EST 1.0 {tablet_as_needed} active O xycodone-Acetaminophen 5-325 MG eCW1 ([facility]) Acetaminophen 325 MG / Oxycodone Hydroch loride 5 MG Oral Tablet Oxycodone- Acetaminophen 5-325 MG Oxycodone-Acetaminophen 5-325 MG 08/23/2020 12:00:00 A M EST 1.0 {tablet_as_needed} active O xycodone-Acetaminophen 5-325 MG eCW1 ([facility]) Acetaminophen 325 MG / Oxycodone Hydroch loride 5 MG Oral Tablet Oxycodone- Acetaminophen 5-325 MG Oxycodone-Acetaminophen 5-325 MG 08/23/2020 12:00:00 A M EST 1.0 {tablet_as_needed} active O xycodone-Acetaminophen 5-325 MG eCW1 ([facility]) Acetaminophen 325 MG / Oxycodone Hydroch loride 5 MG Oral Tablet Oxycodone- Acetaminophen 5-325 MG Oxycodone-Acetaminophen 5-325 MG 08/23/2020 12:00:00 A M EST 1.0 {tablet_as_needed} active O xycodone-Acetaminophen 5-325 MG eCW1 ([facility]) Acetaminophen 325 MG / Oxycodone Hydroch loride 5 MG Oral Tablet oxyCODONE- Acetaminophen 5-325 MG oxyCODONE-Acetaminophen 5-325 MG 08/23/2020 12:00:00 A M EST 1.0 {tablet_as_needed} active o xyCODONE-Acetaminophen 5-325 MG eCW1 ([facility]) Acetaminophen 325 MG / Oxycodone Hydroch loride 5 MG Oral Tablet Oxycodone- Acetaminophen 5-325 MG Oxycodone-Acetaminophen 5-325 MG 08/23/2020 12:00:00 A M EST 1.0 {tablet_as_needed} active O xycodone-Acetaminophen 5-325 MG eCW1 ([facility]) Acetaminophen 325 MG / Oxycodone Hydroch loride 5 MG Oral Tablet Oxycodone- Acetaminophen 5-325 MG Oxycodone-Acetaminophen 5-325 MG 08/23/2020 12:00:00 A M EST 1.0 {tablet_as_needed} active O xycodone-Acetaminophen 5-325 MG eCW1 ([facility]) 5-325 mg 07/26/2020 12:00:00 AM EST tablet [...] Hydrocodone Alayna trate 5 MG Oral Tablet [[place]] [place] 5- 325 MG [place] 5-325 MG 07/19/2020 12:00:00 AM EST 1.0 {tablet_as_needed} active [place] 5-325 MG eCW1 ([facility]) Acetaminophen 325 MG / Hydrocodone Alayna trate 5 MG Oral Tablet [[place]] [place] 5- 325 MG [place] 5-325 MG 07/19/2020 12:00:00 AM EST 1.0 {tablet_as_needed} active [place] 5-325 MG eCW1 ([facility]) 5-325 mg 07/19/2020 12:00:00 AM EST tablet [...] Hydrocodone Alayna trate 5 MG Oral Tablet [[place]] [place] 5- 325 MG [place] 5-325 MG 06/06/2020 12:00:00 AM EST 1.0 {tablet_as_needed} active [place] 5-325 MG eCW1 ([facility]) 50 mg 06/02/2020 12:00:00 AM EST tablet [...] Hydrocodone Alayna trate 5 MG Oral Tablet [[place]] [place] 5- 325 MG [place] 5-325 MG 05/25/2020 12:00:00 AM EDT 1.0 {tablet_as_needed} active [place] 5-325 MG eCW1 ([facility]) Acetaminophen 325 MG / Hydrocodone Alay[place] trate 5 MG Oral Tablet [[place]] [place] 5- 325 MG [place] 5-325 MG 05/25/2020 12:00:00 AM EDT 1.0 {tablet_as_needed} active [place] 5-325 MG eCW1 ([facility]) 5-325 mg 05/25/2020 12:00:00 AM EDT tablet 56 TAKE 1 TABLET BY MOUTH TWICE A DAY NEEDED FOR PAIN MAXIMUM DAILY DOSE = 2 TABLETS TAKE 1 TABLET BY MOUTH TWICE A DAY NEEDED FOR PAIN MAXIMUM DAILY DOSE = 2 TABLETS SOLD: 05/25/2020 [facility] Acetaminophen 325 MG / Hydrocodone Alayna trate 5 MG Oral Tablet [[place]] [place] 5- 325 MG [place] 5-325 MG 05/25/2020 12:00:00 AM EDT 1.0 {tablet_as_needed} active [place] 5-325 MG eCW1 ([facility]) Acetaminophen 325 MG / Hydrocodone Alayna trate 5 MG Oral Tablet Hydrocodone- Acetaminophen 5-325 MG Hydrocodone-Acetaminophen 5-325 MG 05/23/2020 12:00:00 AM EDT active Hydrocodone-Aceta minophen 5-325 MG eCW1 ([facility]) Rosuvastatin calcium 20 MG Oral Tablet ROSUVASTATIN [...] type / Coverage type Policy ID Covered constitution party ID Covered constitution party's relationship to [place] Policy Brock Plan Information Medicare C [id number] SELF [id number] MEDICARE A [id number] Self [id number] T MEDICARE 4 [id number] 1 [id number] T Medicare C [id number] SELF [id number] Medicare C [id number] SELF [id number] MEDICARE A [id number] Self [id number] MEDICARE A [id number] Self [id number] [id number] MEDICAID M [id number] Self [id number] OTHER B TRANSPLANT Self TRANSPLAN T Medicaid [facility] S D [id number] SELF [id number] DME Jurisdiction A [facility] C [id number] SELF [id number] Medicaid [facility] S D [id number] SELF [id number] Medicare C [id number] SELF [id number] T Medicaid [facility] Part B [id number] Self [id number] Medicaid [facility] Part B [id number] Self Medicare [facility] Medicare Primary [id number] Self Medicare [place] Medicare Primary [id number] Self 0 [id number] MEDICAID [id number] MEDICARE A [id number] Self [id number] DME Jurisdiction A AZIC C [id number] SELF [id number] ANSI-Commercial 8n1qh652-4338-572s-rj7d-420774696o50 5v1ye777-7016-532o-uq2g-486494058d76 ANSI-Medicaid [id number] ANSI-Medicare Part B [id number] ANSI-Medicaid [id number] ANSI-Commercial 634243cz-n4d9-393z-98bl-ki9575j7eo29 731736vn-y4d9-199q-58nk-kr5228v6zt90 ANSI-Medicare Part B [id number] ANSI-Medicaid [id number] ANSI-Commercial e5j56902-3f70-9n41-27le-a6x0780m7710 c8r24182-7m47-9j26-55iz-p5d4401p4309 ANSI-Medicare Part B [id number] ANSI-Medicare Part B [id number] ANSI-Commercial 6qw17880-dm77-112f-4rjo-f6pn60j374gn 9dh72492-gq68-432c-4hds-u5sm10v694tg ANSI-Medicaid [id number] ANSI-Commercial 9l7j075j-7157-188y-j7hf-77t51852vx1r 4u6q693b-2259-576e-x0hs-23z54077hu1y ANSI-Medicaid [id number] ANSI-Medicare Part B [id number] ANSI-Medicare Part B [id number] ANSI-Commercial 72dw0e02-2xs4-2080-22n1-950x7ot97b40 89tg5h01-5tu6-8174-01e1-634p7um23v58 ANSI-Medicaid [id number]-n0i8-5a1y-[id number] [place] [id number].[id number]-[id number] Self [id number] Medicare [facility] Medicare Primary [id number] MRN.[id number]-[id number] Self [id number] ANSI-Commercial 7wh2n15i-o7wq-68se-bb7x-n79a90s6926o 1wv6n01k-t1nh-95nj-vy5g-o33s73t1907j ANSI-Medicaid [id number] ANSI-Medicare Part B [id number] ANSI-Medicaid [id number]-[id number] ANSI-Commercial 595r377d-g572-807a-9e3u-u9h0x79b57l3 162a797i-e570-538z-5j7z-w2o3s58r53q0 ANSI-Medicare Part B [id number]-[id number] ANSI-Commercial 5d91q8x9-6ju3-5gnf-ie0q-8ql535n1ra60 5m57q2u0-3av8-6eqz-lm4h-9tr626c9pn61 ANSI-Medicaid [id number] ANSI-Medicare Part B [id number] ANSI-Medicare Part B [id number]-m2h2-47d6-[id number] ANSI-Medicaid [id number] ANSI-Commercial 9tsjm999-i897-5390-23yg-u49m9fik7i96 4efkx671-c373-4640-72rw-d88z1pfi8b84 ANSI-Medicare Part B [id number] ANSI-Commercial zs028sgf-6n00-4112-x272-l5p156c34s97 pp248ger-3v35-0273-z381-e8n891q84w02 ANSI-Medicaid [id number] ANSI-Commercial 1938nveo-76w6-692t20s1-820b-xnxd-4f73vai6fpd8 6648lwkx-63k3-612q58w8-545x-umur-6d36zhg9alg4 ANSI-Medicaid [id number]-[id number] ANSI-Medicare Part B [id number] Medicaid [place] Medig[place] Part B [id number] MRN.[id number]-lay6-33k9-7q52-[id number] Self [id number] Medicare [facility] Medicare Primary [id number] MRN.[id number]-cxc9-99n9-3b40-rbcrf505t00d Self [id number] ANSI-Commercial 403l90gq-n38b-7f85-19d8-m6g334p7944g 213b83jd-y51k-0o19-30s8-z7k411h0775t ANSI-Medicare Part B [id number]-g265-6e87-y225-[id number] ANSI-Medicaid [id number] ANSI-Commercial ac780748-vi59-58qt-mn4r-7i2gh4v26763 eo254371-vk22-63lc-ng9p-3k8iz4j90351 ANSI-Medicare Part B [id number]-[id number] ANSI-Medicaid [id number] ANSI-Medicaid [id number] ANSI-Medicare Part B [id number]-8kfp-357v-7u2v-[id number] ANSI-Commercial kas1159m-8m40-15z5-166b-6r29277w3iph mzg2413y-1v28-69r0-692f-5r07450d7vga ANSI-Commercial 0wfacp13-gz91-1ao5-9909-0v7ei4h6i150 3gidmu19-io68-9al7-9060-2a9jv6a8l189 ANSI-Medicaid [id number] ANSI-Medicare Part B [id number] ANSI-Medicaid [id number] ANSI-Medicare Part B [id number] l4pc14q5-0lwv-32a1-b5f9-40ll2rv467r5 ANSI-Commercial 8053l75m-9j48-4oh7-52d3-5f1745925568 0859w75o-8p87-4mh1-41a0-5s3979036780 ANSI-Medicaid [id number]-383r-[id number] ANSI-Medicare Part B [id number]-145a-[id number] ANSI-Commercial 30wi61i4-3z49-432g-4934-5204d118z724 52hi52n8-0g62-420s-2815-6893t115t081 ANSI-Medicare Part B [id number] zn3x8z9p-d43y-864z-f385-4h30w1g187jd ANSI-Commercial d1bkuwxr-g66z-7v8e-i07z-l5655m9nt3b8 a5dqgqhu-y49z-2g8y-m28u-e3113i3vn0u4 ANSI-Medicaid [id number] ANSI-Commercial 67cp3ym0-6468-11d7-4zrt-243tn6h3nc61 82vp3pa1-1339-74m5-2zad-113lo8a9wh14 ANS-Medicare Part B [id number]-r2de-040v7pyc892s ANSI-Medicaid [id number]-[id number] ANSI-Medicare Part B [id number] ANSI-Commercial 6chz7466-hh0o-9610-701r-45674c1kztt6 2wxd0436-hw6n-3008-915h-80513y4crif6 ANSI-Medicaid [id number]-b91r-0maw-[id number] 72eu64l1-c30c-2bxv-34e7-v66847v7vbo6 ANSI-Medicaid [id number] t5p9f61o-i53t-48e9-z93x-[id number] ANSI-Medicare Part B [id number]-2362-z70690za5f3m ANSI-Commercial av31ecca-0fa5-2533-37o8-4u696757ukc0 mt05brmz-4cn5-6391-23i0-3s136916jjw9 ANSI-Commercial 9t81q52k-737r-50y6-j7o4-7lz81810i769 5h54i84o-195u-18d4-p5c4-1ek23735o040 ANSI-Medicare Part B [id number] ANSI-Medicaid [id number] NO FAULT [id number]-DT-[id number]-[id number] Madeleine 263 -OX-EFQ3754-W NO FAULT [id number] [facility] [id number] ANSI-Medicare Part B [id number]-vqyd-60n4-o162-82f06q27q6g1 ANSI-Commercial 7t80ifxk-ob04-7i3m-6526-g23m6ybi1882 2s10qgce-nt87-7g9l-5002-h70z2fle9358 ANSI-Medicaid [id number]-4e24-8a6i-fjg631y995p0 ANSI-Commercial 642p29u3-5y45-4bt2-vla3-g28vt7e30c1l 347v02w1-8m27-9am7-sjf4-v45pc2m62w3u ANSI-Medicare Part B [id number]-[id number] ANSI-Medicaid [id number] [id number]-w4yg-7640-[id number] ANSI-Commercial 541a168k-rn5y-9884-zn9q-4686k4y29d55 259w539t-kh5c-9903-qj8o-0175j6a91b89 ANSI-Medicaid [id number]-[id number] ANSI-Medicare Part B [id number]-[id number] ANSI-Medicare Part B [id number]-jwd4-701d-71i0-[id number] ANSI-Medicaid [id number] 54rzmqpt-lo05-2076yp57-4361-l26g-[id number] ANSI-Commercial 06m734l5-3z64-0482-u0jm-16v0792805u9 25r779k5-6u15-5794-k8qy-00u1831810x4 NO FAULT PI PI ANSI-Medicaid [id number]-f749-90bc-l94i-[id number] ANSI-Commercial d5mb2umb-5x1h-5162-3g0r-3j6m0i22552q c7uz8trl-1q0q-7827-0d8f-8z7e9x35846t ANSI-Medicare Part B [id number]-9z04-9ubb-18h9-820g0d255fz8 ANSI-Commercial z9549628-d095-8876-0hqp-u203wa758260 c7061107-y756-1165-7zax-q500wo723436 ANSI-Medicaid [id number]-s681-74jw-[id number] ANSI-Medicare Part B [id number] t9x6otuq-mcf4-6591-mo3y-0f3s7v727gt4 ANSI-Commercial j9510977-68n3-6755-z7f4-4k1t5ji12k00 r9372874-14q5-6791-o4c1-0x3n9ia06g30 ANSI-Medicare Part B [id number] 89mof145-gqw2-498n-t1m1-vi6u3pl0ti1p ANSI-Medicaid [id number]-[id number] ANSI-Commercial 63kf6046-4h0y-8w45-0tbo-03sb3yg1581p 10hg8537-5f4w-2q24-1tne-53ta5oq0342d ANSI-Medicaid [id number]-969v-4o94-[id number] ANSI-Medicare Part B [id number]-k945-0ol1-83su-98ul27p84104 ANSI-Commercial b9r0e634-q4g9-5a96-m4a1-0g59g62h706s s6q7k432-w5s1-6f65-f7w7-7v99d41c996r ANSI-Medicaid [id number]-8rfv-[id number] 25unbrrb-5vwv-6x900k07-je2e-[id number] ANSI-Medicare Part B [id number]-294s-[id number] ANSI-Medicare Part B [id number] [facility] [id number]-[id number]-3xsv-[id number] 69hk3s1l-x1mr-9dxq-70em-0b8m4v5930bt ANSI-Commercial 976n63xg-yc63-1428-z3kk-zt4l534n24hu 120o23dr-ph86-2843-g8xr-nj9x704u16cf [facility] PART B [id number] S [id number] ANSI-Medicare Part B [id number] [facility] [id number] [id number]-k72y-4c76-vwot-[id number] ANSI-Commercial 50142083-5214-9tf5-851l-h05m23erl8y6 27339421-2618-0dl2-623m-f18x51ajc2n3 ANSI-Medicaid [id number]-[id number] ANSI-Medicare Part B [id number]-89tf-134u-[id number] ANSI-Commercial 96600605-us1x-17a6-01e0-w337zk6q3d06 50921756-ib6j-78x9-39v3-y353rh0y6s87 ANSI-Medicare Part B [id number]-[id number] ANSI-Medicaid [id number]-2m96-[id number] wpxv77o9-0vyn-7a75-[id number] ANSI-Commercial u76992ub-h3q3-89mo-68j7-95w40623ts18 p96410ed-g6m4-89oa-72r2-61l85340ov93 ANSI-Medicare Part B [id number]-499e-[id number] ANSI-Commercial 1ri135g1-gu01-84x0-r993-8r7gd71v6907 4yg399z4-nf64-85i1-a839-9i8wu62j6775 ANSI-Medicaid [id number]-[id number] ANSI-Medicare Part B [id number]-d4ia-58g5-b4is-[id number] ANSI-Medicaid [id number]-j539-376d-8409-[id number] ANSI-Commercial 7uz942e3-yr90-1908-32b0-779k705454d1 0fc908m1-ov13-1635-28h8-036f257783w6 ANSI-Commercial 2so79855-2392-719a-iqv8-l82i2a3f76p1 7ha72019-0079-733g-oby3-y39n7d2h04v2 ANSI-Medicare Part B [id number]-95bo-6uw5-[id number] [facility] [id number]-9q09-87yz-3e54-y3ipi9472c3r [facility]-Medicare Part B [id number]-p0zi-5l8u4k59hrkf [facility] [id number]-[id number] ANSI-Commercial ur81dn3q-42j0-28fq-2h11-50j6739pnhux vo96xs6j-79f5-58hd-2a74-28a5640jreoe ANSI-Medicare Part B [id number]-w375-001k-4r88-52rs8q0f8t4u ANSI-Commercial a72r41eg-19pr-4n8s-0qe8-p76h31xb2t70 w05e29ux-11mg-1f6s-6mq3-p21s31fj0t09 ANSI-Medicaid [id number]-ilk2-049sjn93eak7 ANSI-Commercial 7r658l90-va38-9613-yt1z-158g3wq42a7f 0p789r52-go63-4398-nz4l-154a3vv77p0u [facility] [id number]-[id number] ANSI-Medicare Part B [id number] 6m91q6r1-x24k-6033-3vy8-7323958d0u5t ANSI-Medicaid [id number]-[id number] [id number]-deef-9319-[id number] ANSI-Commercial b39ok23e-jc50-654y-vche-vv6313041n10 p85rx66w-ic59-280l-lalt-bm9554653s74 ANSI-Medicare Part B [id number] o1uc2h2b-3254-1z3h-6fx7-ssyk4s16z0m4 ANSI-Medicaid [id number] 3byp8qx3-2fzr-10l4-5n4e-9ij25kq889j9 ANSI-Commercial jk83a7eq-ef56-110k-80g5-uw04joo13g78 aa89w8xe-pt27-418y-02y6-pv46cgc07y89 ANSI-Medicare Part B [id number] 8j86z326-ymxz-8tym-75l8-8wr762r76c8h ANSI-Medicare Part B [id number]-[id number] ANSI-Medicaid [id number]-z9jd-[id number] v2j7v61x-13r8-15zo-d3iq-[id number] ANSI-Commercial le963j39-v154-72h3-3mh5-kygu7z80777n va140k85-d094-99w4-1yf2-tzsp0y02523t ANSI-Medicaid [id number] ANSI-Medicare Part B [id number] ANSI-Commercial p8db852r-8tvq-58uk-dbs7-24i93t875421 g0ha333y-7qcc-54sv-zlo6-59c67p541835 ANSI-Medicare Part B [id number] ANSI-Commercial [id number]-z904-26w6-j682-21k66ale4046 1s594054-w719-59c7-n749-17v30aci8757 ANSI-Medicaid [id number] ANSI-Medicare Part B [id number] ANSI-Commercial yg83g0q7-8878-399e-8xcf-58cs5j47wo97 uw92a4i4-3394-689o-2oai-96pw8s29zm30 ANSI-Medicaid [id number] [employer] [id number] SP [id number] ANSI-Medicare Part B [id number] ANSI-Medicaid [id number] ANSI-Commercial 46e69dyu-p332-543y-k320-78j8fxk23690 74j21hmh-g816-264v-c661-93o5fye68410 OTHER NO FAULT [id number] ANSI-Commercial 7496639p-783j-132l-o999-420n345113bw 9294903u-449r-699i-u707-890p667517fg ANSI-Medicaid [id number] ANSI-Medicare Part B [id number] ANSI-Commercial 57r343m4-qfag-7p8e-1k03-vnl43flm6t31 21z428e7-oies-0b0p-1v89-ytk19zto1i87 ANSI-Medicaid [id number] ANSI-Medicare Part B [id number] ANSI-Medicare Part B [id number] ANSI-Medicaid [id number] ANSI-Commercial 27514v2z-2115-89y2-x67i-92655r6r689k 83468m3f-8676-95r8-h09s-32689f2n657l ANSI-Commercial 56kbtvvu-uml3-00pw-3ao6-cerv17yrq22t 45nuigqe-nfa1-91sf-5of3-xpee43fov92w ANSI-Medicare Part B [id number] [facility] [id number] ANSI-Commercial 7glt29a9-74o9-0k98-c8q4-ag35624s691l 8pgc43k1-42f7-6f83-t9s7-xc24266a423t ANSI-Medicare Part B [id number] [facility] [id number] [facility] [id number] ANSI-Commercial 49p1u6ds-64n0-239t-sz6w-q067w9fq1730 49z1j2zm-73x2-647x-vi6t-p928q5gv6300 ANSI-Medicare Part B [id number] ANSI-Medicaid [id number] ANSI-Medicare Part B [id number] ANSI-Commercial r1f89ng4-289n-4359-4789-476n9429p5gu r8a25fx2-909h-0385-7660-543q1525j3sf ANSI-Medicare Part B [id number]-4657-[id number] ANSI-Commercial 8o63ckgc-1bq7-0171-2g39-tw2b6y1433s0 4w10byjf-8we7-7793-8r06-cm0c2b3987t2 ANSI-Medicaid [id number] ANSI-Medicare Part B [id number] ANSI-Commercial 0nz15789-r28b-55ri-032l-5464uf683306 4qv67660-k67w-87ct-406x-7070so696348 ANSI-Medicaid [id number] ANSI-Medicaid [id number] ANSI-Commercial 3342157q-92q1-4s99-4s78-455a46q9457p 0201244o-18x5-9i19-2l17-430m71y3212t ANSI-Medicare Part B [id number] ANSI-Commercial 87z25h47-g0z0-8ad2-tq11-h5whs7zu857w 29i32f97-s2y9-5rh7-fu26-u7bdm9is356m ANSI-Medicaid [id number] ANSI-Medicare Part B [id number] ANSI-Medicare Part B [id number] ANSI-Commercial 0j90i870-q4lw-7171-z831-9gazw7mcx66p 8m00n137-e3yx-1201-z080-7slbu8jpm02b ANSI-Medicaid [id number]-[id number] [facility] [place] [id number] SP [id number] ANSI-Medicare Part B [id number] ANSI-Commercial 96h1kf98-m2va-518o-ojq1-w37085h90qw6 64t5rg40-i8rk-822c-ldb7-m54424h65qc8 ANSI-Medicaid [id number] ANSI-Medicaid [id number] ANSI-Commercial 471z29ot-8607-7s7c-62t9-8gbo7574yd87 046d30ar-3196-8r9b-18a5-6uou7564eo22 ANSI-Medicare Part B [id number] ANSI-Medicaid [id number] ANSI-Medicare Part B [id number] ANSI-Commercial 8ikb1394-xna0-7121-6k9w-1e18y1e66283 9pcx5717-smy5-7551-3s5x-4u67d7h64682 ANSI-Medicare Part B [id number] ANSI-Commercial rz1u4ju3-qf99-46qf-udy8-89850p6vz5j1 cu6g3dv2-al62-33sg-tlt2-63223p3ju9q1 ANSI-Medicaid [id number] MEDICARE [id number] T ANSI-Commercial u40j2699-3079-847w-nq0r-055l36xj174r q99q4204-7143-427i-pr6t-600w54pw342i ANSI-Medicare Part B [id number] ANSI-Medicaid [id number] MEDICARE -RECURRING [id number] ANSI-Commercial 98403w6n-hke5-9lp8-7u4b-no5w6t996b0s 67855h1y-vif6-8jr0-5f3i-un5d2k092j5u ANSI-Medicare Part B [id number] ANSI-Medicaid [id number] ANSI-Medicaid [id number] ANSI-Medicare Part B [id number] ANSI-Commercial khf1k062-vy58-207p-2304-qieuwe47r83t sfy1x433-oq66-723a-3515-jckiwx40d09d [facility] C [id number] S [id number] MEDICARE C [id number] S [id number] T [facility] OPTIONS C [id number] S [id number] [employer] DRIVING [id number] SP [id number] [facility] O [id number] S [id number] MEDICARE [id number] SP [id number] T MEDICARE [id number] SP [id number] T SELF PAY 2 UNAVA[place] 1 [place] 3 [id number] E FIRST UNITED STATELESS NOT FOR TODAYS VISIT SP NOT FOR TODAYS VISIT [place] MEDICAID [id number] SP [id number] E BIG LOTS NOT IN EFFECT SP NOT IN EFFECT MEDICARE [id number] SP [id number] EMEDNY [id number] SP [id number] MEDICARE C [id number] S [id number] MEDICAID M [id number] S [id number] MEDICARE MCA [id number] S [id number] MEDICAID HEA [id number] S [id number] MEDICARE MCA [id number] S [id number] MEDICARE [id number] SP [id number] MEDICARE C [id number] S [id number] MEDICAID [id number] SP [id number] [place] JE PART B C [id number] S [id number] MEDICARE C [id number] S [id number] MEDICARE -RECURRING [id number] 18 [id number] MEDICAID -RECURRING [id number] ANSI-Medicare Part B [id number] ANSI-Medicaid [id number] ANSI-Commercial [id number]-0qn7-[id number] d885358k-992w-9lr6-[id number] ANS-Medicare Part B [id number] ANSI-Medicaid [id number] ANSI-Commercial m56vq94o-cy54-2j6i-q39m-pa8bpsd5yd3e s04ct38w-if29-3y6a-a13z-in7vacu5on7v Problems, Conditions, and Diagnoses Code Display Name Description Problem Type Effective Dates Data Source(s) N60.01 Solitary cyst of right breast Solitary cyst of right b reast Diagnosis 04/15/2021 07:25:18 AM [facility] Z12.31 Encounter for screening mammogram for ma lignant neoplasm of breast Encounter for screening mammogram for malignant neoplasm of breast Diagnosis 04/15/2021 07:24:48 AM [facility] R92.8 Other abnormal and inconclusive findings on diagnostic imaging of breast Other abnormal and inconclusive findings on diagnostic imaging of breast Diagnosis 08/31/2020 10:27:45 AM [facility] N63.10 Unspecified lump in the right breast, un specified quadrant Unspecified lump in the right breast, unspecified quadrant Diagnosis 021 10:27:45 AM [facility] R92.1 Mammographic calcification found on diag nostic imaging of breast Mammographic calcification found on diagnostic imaging of breast Diagnosis 08/31/2020 10:27:10 AM [facility] 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 Problem 08/03/2020 12:00:00 AM EST eCW1 ([facility]) Surgeries/Procedures Procedure Description Date Indications Data Source(s) APPLICATION SHORT ARM SPLINT FOREARM-HAND STATIC 05/08 12:00:00 AM EDT [facility] ([facility], ) Apply Cast Short Arm 04/17/2021 12:00:00 AM EDT [facility] ([facility], ) CLTX DSTL RDL FX/EPIPHYSL SEP W/MANJ WHEN PERF 021 12:00:00 AM [facility] OFFICE OUTPATIENT NEW 30 MINUTES 04/03/2021 12:00:00 A M EDT [facility] Echography Soft Tissue Hand & Neck 10/10/2020 12:00:00 AM ED[facility] ([facility] ) Results ID Date Data Source [id number] 04/16/2021 03:40:42 PM EDT [facility] Name Value Range Interpretation Code Description Data Melanie rce(s) Supporting Document(s) Progress Note [facility] ESOISf6fEkQWMoZm71/KSWvkRYTjr3VySWczGQm7ABlkXEQbT0EdEVH1kZ4gNKR6JEgTPuJxRxHuYXWq lbm [file] AgICAgICAgICAgICAgICAgICAgICAgICAgICAgICAg ICAgICAgICAgICAgICAgICAgICAgICAgICAgICAgDQogICAgICAgICAgICAgICAgICAgICAgICAgICAg ICAgICAgICAgICAgICAgICAgICAgICAgICAgICAgICAgICAgICAgICAgICAgICAgICAgICAgICAgICAg ICAgICAgICAgICAgDQogICAgICAgICAgICAgICAgIC AgICAgICAgICAgICAgICAgICAgICAgICAgICAgICAgICAgICAgICAgICAgICAgICAgICAgICAgICAgIC AgICAgICAgICAgICAgICAgICAgICAgDQogICAgICAgICAgICAgICAgICAgICAgICAgICAgICAgICAgIC AgICAgICAgICAgICAgICAgICAgICAgICAgICAgICAg ICAgICAgICAgICAgICAgICAgICAgICAgICAgICAgICAgDQogICAgICAgICAgICAgICAgICAgICAgICAg ICAgICAgICAgICAgICAgICAgICAgICAgICAgICAgICAgICAgICAgICAgICAgICAgICAgICAgICAgICAg ICAgICAgICAgICAgICAgDQogICAgICAgICAgICAgIC AgICAgICAgICAgICAgICAgICAgICAgICAgICAgICAgICAgICAgICAgICAgICAgICAgICAgICAgICAgIC AgICAgICAgICAgICAgICAgICAgICAgICAgDQogICAgICAgICAgICAgICAgICAgICAgICAgICAgICAgIC AgICAgICAgICAgICAgICAgICAgICAgICAgICAgICAg ICAgICAgICAgICAgICAgICAgICAgICAgICAgICAgICAgICAgDQogICAgICAgICAgICAgICAgICAgICAg ICAgICAgICAgICAgICAgICAgICAgICAgICAgICAgICAgICAgICAgICAgICAgICAgICAgICAgICAgICAg ICAgICAgICAgICAgICAgICAgDQogICAgICAgICAgIC AgICAgICAgICAgICAgICAgICAgICAgICAgICAgICAgICAgICAgICAgICAgICAgICAgICAgICAgICAgIC AgICAgICAgICAgICAgICAgICAgICAgICAgICAgDQogICAgICAgICAgICAgICAgICAgICAgICAgICAgIC AgICAgICAgICAgICAgICAgICAgICAgICAgICAgICAg VGHkMOVqZIHqDZMxVOQhZKTmNJNyLJLzGHXcIJKuEZKcSJCvUGGnZRl1I6boVOLjVCMxSS6fRAt1Rq9+ BMkZHzJwSKV2wxAjmP4VZW3mp6RmSGejOZNhd0JkWOq6HG1AYSFwHFblKN0HTRxwrz0VZXTdGYTwqZRX l2dbWeKwGFJ3VTOlQsxqBI3CCDPjH1ayvvRoPVBgAP FXZItzDRASPGzaCBAWEZCxCTCkRaGaIQorMN4Ma9RevGD7BXc+Da4BIQ3gz0IvHFinZAGuDK7mjs0PRD gNLsEfO2IusoL9DXA0NOXnPd8WBVZmVYDqiIRfZsLqKCYHYiSoT1XabA68IHKYEe7+DQplbmRvYmoNCj H5HEHkt5SxWTf6YZ5MKZDpJKs1cWJdTVJfN8Tpm6Ji Oc25OIWgQcygX5Rbm4BnenJBCETthAGtyMlrVlBvGSKaED5uXY3sKGCmHVJ8YjZrENWTUU8LZIOfRVCw tKNwSUVoGWQXZL5FQUxyLKS9TKOcumFbpSVkZDxvMA7THIAejvYxIkReRGVULNa+Ra3TFD8mo9ZfZLap JrGlOC5bwn3LKLeUMpNnZ0J4yPQeQ5D6UShxGf7UHD XmJENvAxJkBYQYGTfzWW8LPJ2nvxO2BO7DkZWuFUDjBXJctDDrBOs8Z47vmZLfMMdwEO7QFCD+Bello+Pg 1ZSDKwFUVsHNLiUdIqGDPOAnEvE7FaJ3XGs9NsP8SyGG69lHyrqkZoVCfaPL9YNI0sQPIiWTUZHY0ZnT TwuJ3nueDpOPXuYKMDTeIyN24evFWdOOCnEYR5TOZb Vb2RDVNvE7BppbBmkHmxfmBaKTTrEUFPOK7MWDeirzMzhBCiaAjnXD81gNorMO9UWd5PCqPoMT9wnu7O dNRtAx3ABWCuWZ0RJNIgTJKwFHLiKZP3KJLaSpXfTUbaHLMyKOVpESY6ZOCwULWfUK3SIgEwTQXoLywa DQvaSGSfBIKffn0ETQNjWETtGQm4DMKvEPUdZOTiSV hpDQDlVEXeTYR1FOSsDUZoWG6VUbWvOGNwMAKdGJKkLZKaINRvxu7EUOTgVOBeXNN6ArErPZEjNYUsCI sqUOAnGBT4BiM7IRXtXOUcCD4KHdJwIFCrOGX5AkHaZVNdZTXbwf0DVGIyYIFbHII9ZjGfDMZtRCYkZS dvZMVlLDH4HZMxUQFyWNAuTA1CIpNyHRDxNQT3AxEk PDEdOZLbnp1MXKZfQDHlLlS7ScOiQMKbMDJiZVitJXUuZRAnLOLhONOqVPQcTQ9SRuHiYIWhCDAhDxqg YADrZAYhxd0FWLDuEYOnDwVfRpQlOFSoOTZtRFfzTDGqWQR1YXupAAJdMQTfMC7YGuJqPPZpLBX4YwWq ECBqXWVgzl5UMAOxNPWkQZz8OIGwBCPlARHmDQjuMT LpMKK5ZkM1XORxITDfLD9WJxAoSZEpLtG5DvUqZZZsUCVkfu4YIVJyZZVsPuc8HHBrJOXiMKOwEVazUP ZqNNM2MNtiHHEvENQuWM3YXkLsMXEvXjzmKjnwMOHcIRRcaq3NZWHgOSXcRbFrJRVjEZBsCHDaAGinNG AfWNY6MDc2WYRhLKJzUG1GLaZeIQUoCyezOBXfENMu CZWpyu3XRVCaJZQbXPXgOvMvVLEqSNJiKXl3fxJrqQMyLRl1IC0WK6GnkhBlNwoGZb8Fe681XXX5KPTl Dy4ZC2oiUt8zVJQrQPRYLr6DXYz6FDO6ZEUwPTIkOWN8DRG2AzU4KrPdQSw1KJn8NYDlOKc+UEn0Kifo T3DtSaPsCNh3XvWfVQhpQXZ3CycwVwm8QiM6LT0m XSANCj4+MWmieGTnfKkyVEJTLpO1GWBoFAwqCMZSDy6R ID Date Data Source [id number] 04/16/2021 03:37:21 PM [facility] MAMMO DIGITAL SCREENING BILATERAL [id number] INAL RESULTInterpreted by:Ashkan Haywood MDBILATERAL DIGITAL MAMMOGRAM WITH COMPUTER-AIDED DETECTION and BILATERAL TARGETED BREAST ULTRASOUNDHISTORY: Diagnostic exam. Follow-up of likely post biopsy changes in the right breast. The patient reports bilateral needle biopsy. The patient reports family history history of breast cancer in sister and maternal aunt.National Cancer [place] risk assessment model:5 year calculated risk: 4.7%Average [...] rce(s) Supporting Document(s) ID Date Data Source [id number] 04/16/2021 03:37:21 PM [facility] BREAST INCLUDING AXILLA LIMITED BILAT ERAL [id number] RESULTInterpreted by:Ashkan Haywood MDBILATERAL DIGITAL MAMMOGRAM WITH COMPUTER-AIDED DETECTION and BILATERAL TARGETED BREAST ULTRASOUNDHISTORY: Diagnostic exam. Follow-up of likely post biopsy changes in the right breast. The patient reports bilateral needle biopsy. The patient reports family history history of breast cancer in sister and maternal aunt.National Cancer [place] risk assessment model:5 year calculated risk: 4.7%Average [...] rce(s) Supporting Document(s) ID Date Data Source [id number] 03/25/2021 04:56:09 PM T [facility] Name Value Range Interpretation Code Description Data [facility] rce(s) Supporting Document(s) Progress Note [facility] RGHJLw7eEvIVUhFz10/CUAtsHNDid8RcEIvhJHs0KEgrVSKqU4IlKNB0gV9xEKN6NXxGUcFwMcRhAHLu [facility] TcSodDUoRnTOAtLhvHIjHqPRrsJmyxnSCfAH2DuDC6JTJdJ58mFGJuKZEoF2ZyPVW8OAW+Zc0WHXAwwW UdYM0HKhoL1O7spvAMBm+tbshSU5eFLrcw9/vhpFLlwxCgMBhskkrF+JUfzF4TesC8LOr/Swz6FOd7+h u8jl5aKXK7k62oo4r6+e59k4qcd356xwP3YDzk/65+ [file] IHbaJHAZJc7P ID Date Data Source [id number] 01/16/2021 12:24:00 PM EDT [facility] Name Value Range Interpretation Code Description Data Melanie rce(s) Supporting Document(s) SARS coronavirus 2 RNA [Presence] in Res piratory specimen by CLARI with probe detection NEGATIVE [facility] This lab was ordered by [facility] a nd reported by [facility]. ID Date Data Source [id number] 11/08/2020 06:09:00 PM EDT [facility] Name Value Range Interpretation Code Description Data Melanie rce(s) Supporting Document(s) SARS-CoV-2 (COVID 19) NEGATIVE - SARS-CoV-2 (COVID19) [facility] This lab was ordered by [facility] a nd reported by [facility]. ID Date Data Source [id number] 09/04/2020 08:21:24 AM [facility] Name Value Range Interpretation Code Description Data Melanie rce(s) Supporting Document(s) Progress Note [facility] HCJXHs4uHgDBPmKa84/GPSflXZWag6GoIJqoIGu5YRmhXPFnC5KaYOY4zR5hHEY7BPnWBoCsWiAqSqA2 m [file] NmEzOWIyYTFlZjI+WD1qFTk+Rb9Fo8AqelD2xbOgURaxUNF8IO7RLHOOY0OFKn== ID Date Data Source [id number] 09/04/2020 08:06:09 AM [facility] MAMMO DIGITAL DIAGNOSTIC RIGHT [id number] RESULTInterpreted by:TIA Pond DIGITAL MAMMOGRAM WITH COMPUTER-AIDED DETECTION and TARGETED RIGHT BREAST ULTRASOUNDHISTORY: Short-term follow-up after benign right breast biopsy performed at outside facility. Short-term follow-up of mass seen on ultrasound outside facility. The patient reports family history of breast cancer in maternal aunt. The patient reports multiple benign left breast biopsies in the past.National Cancer [place] risk assessment model:5 year calculated risk: 2.2%Average [...] rce(s) Supporting Document(s) ID Date Data Source [id number] 09/04/2020 08:06:09 AM [facility] US BREAST INCLUDING AXILLA LIMITED RIGHT [id number] RESULTInterpreted by:TIA Pond DIGITAL MAMMOGRAM WITH COMPUTER-AIDED DETECTION and TARGETED RIGHT BREAST ULTRASOUNDHISTORY: Short-term follow-up after benign right breast biopsy performed at outside facility. Short-term follow-up of mass seen on ultrasound outside facility. The patient reports family history of breast cancer in maternal aunt. The patient reports multiple benign left breast biopsies in the past.National Cancer [place] risk assessment model:5 year calculated risk: 2.2%Average [...] rce(s) Supporting Document(s) ID Date Data Source [id number] 08/01/2020 04:00:01 PM EST [facility] Caro CarnesB: 1955Provider: Hemant [...] seen at [facility] in [place]. Ambulating with walker. Was given RX for Oxycodone but not taking. Patient states they are disabled. AssessmentReason for Visit:Left knee pain.Caro is a 64-year-old female disabled was seen by me two years ago for her knees. At that time, I felt it was more her back. She has been reasonably good up until this past [place] when she had a direct injury to her knee and then developed this incapacitating pain. She was worked up in the [place] which included x-rays, CT scan and MRI [...] rce(s) Supporting Document(s) ID Date Data Source [id number] 07/22/2020 11:02:00 PM EST [facility] Name Value Range Interpretation Code Description Data Melanie rce(s) Supporting Document(s) SARS coronavirus 2 RNA [Presence] in Res piratory specimen by CLARI with probe detection [facility] This lab was ordered by [facility] a nd reported by [facility]. Procedure Social History Code Duration Value Status Description Data Source(s ) Smoking 05/20/2021 12:00:00 AM EDT Non Smoker completed Non Smoke r MED[facility] ([facility]) Alcohol intake 04/15/2021 12:00:00 AM EDT Current non-d marisa of alcohol (finding) completed Current non-drinker of alcohol (finding) [facility] Tobacco use and exposure 04/15/2021 12:00:00 AM EDT Never used co mpleted Never used [facility] Cigarette pack-years 04/15/2021 12:00:00 AM EDT UNK completed [facility] Cigarettes smoked current (pack per day) - Reported 04/15/20 12:00:00 AM EDT [facility]K [facility] Sm[facility] 04/15/2021 12:00:00 AM EDT Former smoker completed Former smoker [facility] Smoking 04/02/2021 12:00:00 AM EDT Former Smoker completed Former Smoker eCW1 ([facility]) Smoking 04/02/2021 12:00:00 AM EDT Former Smoker completed Former Smoker eCW1 ([facility]) Smoking 04/02/2021 12:00:00 AM EDT Former Smoker completed Former Smoker eCW1 ([facility]) Smoking 04/02/2021 12:00:00 AM EDT Former Smoker completed Former Smoker eCW1 ([facility]) Smoking 04/02/2021 12:00:00 AM EDT Former Smoker completed Former Smoker eCW1 ([facility]) Smoking 04/02/2021 12:00:00 AM EDT Former Smoker completed Former Smoker eCW1 ([facility]) Smoking 02/08/2021 12:00:00 AM EDT Former Smoker completed Former Smoker eCW1 ([facility]) Smoking 02/08/2021 12:00:00 AM EDT Former Smoker completed Former Smoker eCW1 ([facility]) Smoking 02/08/2021 12:00:00 AM EDT Former Smoker completed Former Smoker eCW1 ([facility]) Smoking 02/08/2021 12:00:00 AM EDT Former Smoker completed Former Smoker eCW1 ([facility]) Smoking 02/08/2021 12:00:00 AM EDT Former Smoker completed Former Smoker eCW1 ([facility]) Smoking 02/08/2021 12:00:00 AM EDT Former Smoker completed Former Smoker eCW1 ([facility]) Smoking 01/22/2021 12:00:00 AM EDT Former Smoker completed Former Smoker eCW1 ([facility]) Smoking 01/22/2021 12:00:00 AM EDT Former Smoker completed Former Smoker eCW1 ([facility]) Alcohol intake 08/31/2020 12:00:00 AM EST Current non-d marisa of alcohol (finding) completed Current non-drinker of alcohol (finding) [facility] Smoking 08/03/2020 12:00:00 AM EST Former Smoker completed Former Smoker eCW1 ([facility]) Smoking 08/03/2020 12:00:00 AM EST Former Smoker completed Former Smoker eCW1 ([facility]) Smoking 08/03/2020 12:00:00 AM EST Former Smoker completed Former Smoker eCW1 ([facility]) Smoking 08/03/2020 12:00:00 AM EST Former Smoker completed Former Smoker eCW1 ([facility]) Smoking 08/03/2020 12:00:00 AM EST Former Smoker completed Former Smoker eCW1 ([facility]) Smoking 08/03/2020 12:00:00 AM EST Former Smoker completed Former Smoker eCW1 ([facility]) Smoking 08/03/2020 12:00:00 AM EST Former Smoker completed Former Smoker eCW1 ([facility]) Smoking 08/03/2020 12:00:00 AM EST Former Smoker completed Former Smoker eCW1 ([facility]) Smoking 08/03/2020 12:00:00 AM EST Former Smoker completed Former Smoker eCW1 ([facility]) Smoking 08/03/2020 12:00:00 AM EST Former Smoker completed Former Smoker eCW1 ([facility]) Smoking 08/03/2020 12:00:00 AM EST Former Smoker completed Former Smoker eCW1 ([facility]) Smoking 08/03/2020 12:00:00 AM EST Former Smoker completed Former Smoker eCW1 ([facility]) Smoking 08/03/2020 12:00:00 AM EST Former Smoker completed Former Smoker eCW1 ([facility]) Smoking 08/03/2020 12:00:00 AM EST Former Smoker completed Former Smoker eCW1 ([facility]) Smoking 08/03/2020 12:00:00 AM EST Former Smoker completed Former Smoker eCW1 ([facility]) Smoking 08/03/2020 12:00:00 AM EST Former Smoker completed Former Smoker eCW1 ([facility]) Smoking 08/03/2020 12:00:00 AM EST Former Smoker completed Former Smoker eCW1 ([facility]) Smoking 08/03/2020 12:00:00 AM EST Former Smoker completed Former Smoker eCW1 ([facility]) Vital Signs ID Date Data Source UNK Name Value Range Interpretation Code Description Data Source(s) Body temperature 97.6 [degF] 97.6 [degF] [facility] Body temperature 96.9 [degF] 96.9 [degF] [facility] ([facility], ) Body temperature 97.0 [degF] 97.0 [degF] [facility] ([facility], ) Systolic blood pressure 112 mm[Hg] 112 mm[Hg] EDENT ([facility]) Diastolic blood pressure 76 mm[Hg] 76 mm[Hg] [facility] ([facility]) Heart rate 84 /min 84 /min [facility] ([facility]) Body temperature 96.8 [degF] 96.8 [degF] [facility] ([facility]) Body height 60 [in_i] 60 [in_i] [facility] ([facility]) 5'0" Body weight 175.12 [lb_av] 175.12 [lb_av] MEDEN T ([facility]) Body mass index (BMI) [Ratio] 34.2 kg/m2 34.2 k g/m2 [facility] ([facility]) Oxygen saturation in Arterial blood by Pulse oximetry 97 % 97 % [facility] ([facility]) ID Date Data Source [id number] 03/25/2021 04:56:09 PM EDT [facility] Name Value Range Interpretation Code Description Data Source(s) PREFERRED NAME Maryjo Maryjo [facility] ID Date Data Source [id number] 03/06/2021 11:23:32 AM EDT [facility] Name Value Range Interpretation Code Description Data Source(s) PREFERRED NAME Maryjo Maryjo [facility] ID Date Data Source [id number] 03/06/2021 10:03:02 AM EDT [facility] Name Value Range Interpretation Code Description Data Source(s) PREFERRED NAME Maryjo Maryjo [facility] ID Date Data Source [id number] 03/06/2021 10:02:07 AM EDT [facility] Name Value Range Interpretation Code Description Data Source(s) PREFERRED NAME Maryjo Maryjo [facility] ID Date Data Source [id number] 08/31/2020 11:51:39 AM [facility] Name Value Range Interpretation Code Description Data Source(s) PREFERRED NAME Maryjo Maryjo [facility] ID Date Data Source [id number] 08/31/2020 11:51:23 AM EST [facility] Name Value Range Interpretation Code Description Data Source(s) PREFERRED NAME Maryjo Maryjo [facility] ID Date Data Source [id number] 08/31/2020 11:51:23 AM [facility] Name Value Range Interpretation Code Description Data Source(s) PREFERRED NAME Maryjo Maryjo [facility] ID Date Data Source [id number] 12/06/2020 12:47:45 PM EDT [facility] Name Value Range Interpretation Code Description Data Source(s) PREFERRED NAME Maryjo Maryjo [facility] ID Date Data Source [id number] 09/04/2020 08:21:24 AM [facility] Name Value Range Interpretation Code Description Data Source(s) WEIGHT RECORDED 176 lb 176 lb [facility] Body height Measured 60 in 60 in [facility] PREFERRED NAME Maryjo Maryjo [facility] PREFERRED NAME Maryjo Maryjo [facility] ID Date Data Source [id number] 09/04/2020 08:06:09 AM [facility] Name Value Range Interpretation Code Description Data Source(s) PREFERRED NAME Maryjo Maryjo [facility] PREFERRED NAME Maryjo Maryjo [facility] ID Date Data Source [id number] 09/04/2020 08:06:09 AM [facility] Name Value Range Interpretation Code Description Data Source(s) PREFERRED NAME Maryjo Maryjo [facility] PREFERRED NAME Maryjo Maryjo [facility] Patient Treatment Plan of Care Planned Activity Planned Date Details Description Data Source (s) Acetaminophen 325 MG / Hydrocodone Bitartrate 5 MG Ora l Tablet 05/21/2021 12:00:00 AM EDT eCW1 ([facility]) Diazepam 2 MG Oral Tablet 04/30/2021 12:00:00 AM EDT eCW1 ([facility]) Diazepam 2 MG Oral Tablet 04/30/2021 12:00:00 AM EDT eCW1 ([facility]) Diazepam 2 MG Oral Tablet 04/30/2021 12:00:00 AM EDT eCW1 ([facility]) Diazepam 2 MG Oral Tablet 04/30/2021 12:00:00 AM EDT eCW1 ([facility]) Diazepam 2 MG Oral Tablet 03/01/2021 12:00:00 AM EDT eCW1 ([facility]) Acetaminophen 325 MG / Oxycodone Hydrochloride 5 MG Or al Tablet 03/01/2021 12:00:00 AM EDT eCW1 ([facility]) Diazepam 2 MG Oral Tablet 03/01/2021 12:00:00 AM EDT eCW1 ([facility]) Acetaminophen 325 MG / Oxycodone Hydrochloride 5 MG Or al Tablet 03/01/2021 12:00:00 AM EDT eCW1 ([facility]) Diazepam 2 MG Oral Tablet 03/01/2021 12:00:00 AM EDT eCW1 ([facility]) Acetaminophen 325 MG / Oxycodone Hydrochloride 5 MG Or al Tablet 03/01/2021 12:00:00 AM EDT eCW1 ([facility]) Diazepam 2 MG Oral Tablet 03/01/2021 12:00:00 AM EDT eCW1 ([facility]) Acetaminophen 325 MG / Oxycodone Hydrochloride 5 MG Or al Tablet 03/01/2021 12:00:00 AM EDT eCW1 ([facility]) Acetaminophen 325 MG / Hydrocodone Bitartrate 5 MG Ora l Tablet 12/19/2020 12:00:00 AM EDT eCW1 ([facility]) Acetaminophen 325 MG / Hydrocodone Bitartrate 5 MG Ora l Tablet 12/19/2020 12:00:00 AM EDT eCW1 ([facility]) Acetaminophen 325 MG / Hydrocodone Bitartrate 5 MG Ora l Tablet 12/19/2020 12:00:00 AM EDT eCW1 ([facility]) Acetaminophen 325 MG / Hydrocodone Bitartrate 5 MG Ora l Tablet 12/19/2020 12:00:00 AM EDT eCW1 ([facility]) Acetaminophen 325 MG / Hydrocodone Bitartrate 5 MG Ora l Tablet 12/19/2020 12:00:00 AM EDT eCW1 ([facility]) Acetaminophen 325 MG / Hydrocodone Bitartrate 5 MG Ora l Tablet 12/19/2020 12:00:00 AM EDT eCW1 ([facility]) Acetaminophen 325 MG / Hydrocodone Bitartrate 5 MG Ora l Tablet 12/19/2020 12:00:00 AM EDT eCW1 ([facility]) Acetaminophen 325 MG / Hydrocodone Bitartrate 5 MG Ora l Tablet 12/19/2020 12:00:00 AM EDT eCW1 ([facility]) Acetaminophen 325 MG / Hydrocodone Bitartrate 5 MG Ora l Tablet 12/19/2020 12:00:00 AM EDT eCW1 ([facility]) Acetaminophen 325 MG / Hydrocodone Bitartrate 5 MG Ora l Tablet 10/25/2020 12:00:00 AM EDT eCW1 ([facility]) Acetaminophen 325 MG / Hydrocodone Bitartrate 5 MG Ora l Tablet 10/25/2020 12:00:00 AM EDT eCW1 ([facility]) Acetaminophen 325 MG / Hydrocodone Bitartrate 5 MG Ora l Tablet 10/25/2020 12:00:00 AM EDT eCW1 ([facility]) Acetaminophen 325 MG / Hydrocodone Bitartrate 5 MG Ora l Tablet 10/25/2020 12:00:00 AM EDT eCW1 ([facility]) Acetaminophen 325 MG / Hydrocodone Bitartrate 5 MG Ora l Tablet 10/25/2020 12:00:00 AM EDT eCW1 ([facility]) Acetaminophen 325 MG / Hydrocodone Bitartrate 5 MG Ora l Tablet 10/25/2020 12:00:00 AM EDT eCW1 ([facility]) Acetaminophen 325 MG / Hydrocodone Bitartrate 5 MG Ora l Tablet 10/25/2020 12:00:00 AM EDT eCW1 ([facility]) Acetaminophen 325 MG / Hydrocodone Bitartrate 5 MG Ora l Tablet 10/25/2020 12:00:00 AM EDT eCW1 ([facility]) Acetaminophen 325 MG / Hydrocodone Bitartrate 5 MG Ora l Tablet 10/25/2020 12:00:00 AM EDT eCW1 ([facility]) Acetaminophen 325 MG / Hydrocodone Bitartrate 5 MG Ora l Tablet 10/25/2020 12:00:00 AM EDT eCW1 ([facility]) Acetaminophen 325 MG / Hydrocodone Bitartrate 5 MG Ora l Tablet 10/25/2020 12:00:00 AM EDT eCW1 ([facility]) Acetaminophen 325 MG / Hydrocodone Bitartrate 5 MG Ora l Tablet 10/25/2020 12:00:00 AM EDT eCW1 ([facility]) Acetaminophen 325 MG / Hydrocodone Bitartrate 5 MG Ora l Tablet 10/25/2020 12:00:00 AM EDT eCW1 ([facility]) Acetaminophen 325 MG / Hydrocodone Bitartrate 5 MG Ora l Tablet 10/25/2020 12:00:00 AM EDT eCW1 ([facility]) Acetaminophen 325 MG / Hydrocodone Bitartrate 5 MG Ora l Tablet 10/25/2020 12:00:00 AM EDT eCW1 ([facility]) Acetaminophen 325 MG / Hydrocodone Bitartrate 5 MG Ora l Tablet 09/25/2020 12:00:00 AM EST eCW1 ([facility]) Acetaminophen 325 MG / Hydrocodone Bitartrate 5 MG Ora l Tablet 09/25/2020 12:00:00 AM EST eCW1 ([facility]) Acetaminophen 325 MG / Hydrocodone Bitartrate 5 MG Ora l Tablet 09/25/2020 12:00:00 AM EST eCW1 ([facility]) Acetaminophen 325 MG / Hydrocodone Bitartrate 5 MG Ora l Tablet 09/25/2020 12:00:00 AM EST eCW1 ([facility]) Acetaminophen 325 MG / Hydrocodone Bitartrate 5 MG Ora l Tablet 09/25/2020 12:00:00 AM EST eCW1 ([facility]) Acetaminophen 325 MG / Hydrocodone Bitartrate 5 MG Ora l Tablet 09/25/2020 12:00:00 AM EST eCW1 ([facility]) Acetaminophen 325 MG / Hydrocodone Bitartrate 5 MG Ora l Tablet 09/25/2020 12:00:00 AM EST eCW1 ([facility]) Acetaminophen 325 MG / Hydrocodone Bitartrate 5 MG Ora l Tablet 09/25/2020 12:00:00 AM EST eCW1 ([facility]) Acetaminophen 325 MG / Hydrocodone Bitartrate 5 MG Ora l Tablet 09/25/2020 12:00:00 AM EST eCW1 ([facility]) Acetaminophen 325 MG / Hydrocodone Bitartrate 5 MG Ora l Tablet 09/25/2020 12:00:00 AM EST eCW1 ([facility]) Acetaminophen 325 MG / Hydrocodone Bitartrate 5 MG Ora l Tablet 09/25/2020 12:00:00 AM EST eCW1 ([facility]) Acetaminophen 325 MG / Hydrocodone Bitartrate 5 MG Ora l Tablet 09/25/2020 12:00:00 AM EST eCW1 ([facility]) Acetaminophen 325 MG / Hydrocodone Bitartrate 5 MG Ora l Tablet 09/25/2020 12:00:00 AM EST eCW1 ([facility]) Acetaminophen 325 MG / Hydrocodone Bitartrate 5 MG Ora l Tablet 09/25/2020 12:00:00 AM EST eCW1 ([facility]) Acetaminophen 325 MG / Hydrocodone Bitartrate 5 MG Ora l Tablet 09/25/2020 12:00:00 AM EST eCW1 ([facility]) Acetaminophen 325 MG / Hydrocodone Bitartrate 5 MG Ora l Tablet 09/25/2020 12:00:00 AM EST eCW1 ([facility]) Acetaminophen 325 MG / Hydrocodone Bitartrate 5 MG Ora l Tablet 09/25/2020 12:00:00 AM EST eCW1 ([facility]) Acetaminophen 325 MG / Hydrocodone Bitartrate 5 MG Ora l Tablet 09/25/2020 12:00:00 AM EST eCW1 ([facility]) Acetaminophen 325 MG / Hydrocodone Bitartrate 5 MG Ora l Tablet 09/25/2020 12:00:00 AM EST eCW1 ([facility]) Acetaminophen 325 MG / Hydrocodone Bitartrate 5 MG Ora l Tablet 09/20/2020 12:00:00 AM EST eCW1 ([facility]) 30 ACTUAT umeclidinium 0.0625 MG/ACTUAT / vilanterol 0.025 MG/ACTUAT Dry Powder Inhaler [[place]] 09/14/2020 12:00:00 AM EST [facility] Acetaminophen 325 MG / Hydrocodone Bitartrate 5 MG Ora l Tablet 09/14/2020 12:00:00 AM EST eCW1 ([facility]) Acetaminophen 325 MG / Hydrocodone Bitartrate 5 MG Ora l Tablet 09/14/2020 12:00:00 AM EST eCW1 ([facility]) Acetaminophen 325 MG / Hydrocodone Bitartrate 5 MG Ora l Tablet 09/14/2020 12:00:00 AM EST eCW1 ([facility]) Acetaminophen 325 MG / Oxycodone Hydrochloride 5 MG Or al Tablet 08/23/2020 12:00:00 AM EST eCW1 ([facility]) Acetaminophen 325 MG / Oxycodone Hydrochloride 5 MG Or al Tablet 08/23/2020 12:00:00 AM EST eCW1 ([facility]) Acetaminophen 325 MG / Oxycodone Hydrochloride 5 MG Or al Tablet 08/23/2020 12:00:00 AM EST eCW1 ([facility]) Acetaminophen 325 MG / Oxycodone Hydrochloride 5 MG Or al Tablet 08/23/2020 12:00:00 AM EST eCW1 ([facility]) Acetaminophen 325 MG / Oxycodone Hydrochloride 5 MG Or al Tablet 08/23/2020 12:00:00 AM EST eCW1 ([facility]) Acetaminophen 325 MG / Oxycodone Hydrochloride 5 MG Or al Tablet 08/23/2020 12:00:00 AM EST eCW1 ([facility]) Acetaminophen 325 MG / Oxycodone Hydrochloride 5 MG Or al Tablet 08/23/2020 12:00:00 AM EST eCW1 ([facility]) Acetaminophen 325 MG / Oxycodone Hydrochloride 5 MG Or al Tablet 08/23/2020 12:00:00 AM EST eCW1 ([facility]) Acetaminophen 325 MG / Oxycodone Hydrochloride 5 MG Or al Tablet 08/23/2020 12:00:00 AM EST eCW1 ([facility]) Acetaminophen 325 MG / Oxycodone Hydrochloride 5 MG Or al Tablet 08/23/2020 12:00:00 AM EST eCW1 ([facility]) Acetaminophen 325 MG / Oxycodone Hydrochloride 5 MG Or al Tablet 08/23/2020 12:00:00 AM EST eCW1 ([facility]) Acetaminophen 325 MG / Oxycodone Hydrochloride 5 MG Or al Tablet 08/23/2020 12:00:00 AM EST eCW1 ([facility]) Acetaminophen 325 MG / Oxycodone Hydrochloride 5 MG Or al Tablet 08/23/2020 12:00:00 AM EST eCW1 ([facility]) Acetaminophen 325 MG / Oxycodone Hydrochloride 5 MG Or al Tablet 08/23/2020 12:00:00 AM EST eCW1 ([facility]) Acetaminophen 325 MG / Oxycodone Hydrochloride 5 MG Or al Tablet 08/23/2020 12:00:00 AM EST eCW1 ([facility]) Acetaminophen 325 MG / Oxycodone Hydrochloride 5 MG Or al Tablet 08/23/2020 12:00:00 AM EST eCW1 ([facility]) Acetaminophen 325 MG / Oxycodone Hydrochloride 5 MG Or al Tablet 08/23/2020 12:00:00 AM EST eCW1 ([facility]) Acetaminophen 325 MG / Oxycodone Hydrochloride 5 MG Or al Tablet 08/23/2020 12:00:00 AM EST eCW1 ([facility]) Acetaminophen 325 MG / Oxycodone Hydrochloride 5 MG Or al Tablet 08/23/2020 12:00:00 AM EST eCW1 ([facility]) Acetaminophen 325 MG / Hydrocodone Bitartrate 5 MG Ora l Tablet [[place]] 07/19/2020 12:00:00 AM EST eCW1 ([facility]) Acetaminophen 325 MG / Hydrocodone Bitartrate 5 MG Ora l Tablet [[place]] 07/19/2020 12:00:00 AM EST eCW1 ([facility]) Acetaminophen 325 MG / Hydrocodone Bitartrate 5 MG Ora l Tablet [[place]] 06/06/2020 12:00:00 AM EST eCW1 ([facility]) Acetaminophen 325 MG / Hydrocodone Bitartrate 5 MG Ora l Tablet [[place]] 05/25/2020 12:00:00 AM EDT eCW1 ([facility]) Acetaminophen 325 MG / Hydrocodone Bitartrate 5 MG Ora l Tablet [[place]] 05/25/2020 12:00:00 AM EDT eCW1 ([facility]) Acetaminophen 325 MG / Hydrocodone Bitartrate 5 MG Ora l Tablet [[place]] 05/25/2020 12:00:00 AM EDT eCW1 ([facility]) Acetaminophen 325 MG / Hydrocodone Bitartrate 5 MG Ora l Tablet 05/23/2020 12:00:00 AM EDT eCW1 ([facility])
--- NOTE | 2021-06-04 08:22 | REPVR ---
PROCEDURE INFORMATION: Exam: XR Right Wrist Exam date and time: 06/04/2021 6:33 AM Age: 65 years old Clinical indication: Pain; Wrist; Right; Patient HX: Prior break 2 months ago; Additional info: Fall TECHNIQUE: Imaging protocol: XR Right wrist. Views: 3 or more views. COMPARISON: CR WRIST COMPLETE 05/20/2021 2:24 PM (report not provided) FINDINGS: Bones/joints: There is again a mildly comminuted fracture through the distal radius. This is mildly increasingly impacted and displaced. The margins of the fracture are increasingly sclerotic, but there is no new bridging callus formation. Ulnar styloid fracture is fairly stable in appearance. No new fracture is identified. The joint spaces are normally aligned. The bones appear increasingly osteopenic. Soft tissues: There is again mild generalized soft tissue swelling. IMPRESSION: 1. Mildly comminuted distal radial fracture, as on 05/20/2021, mildly increasingly impacted and displaced, with the margins increasingly sclerotic, without new bridging callus formation. 2. Fairly stable ulnar styloid fracture. 3. Increasingly osteopenic appearance. Electronically signed by: Haider Rudolph On 06/04/2021 08:21:38 AM
--- NOTE | 2021-06-04 08:25 | REPVR ---
PROCEDURE INFORMATION: Exam: XR Right Shoulder Exam date and time: 06/04/2021 6:33 AM Age: 65 years old Clinical indication: Pain; Shoulder; Bilateral; Additional info: Trauma TECHNIQUE: Imaging protocol: XR Right shoulder. Views: 2 or more views. COMPARISON: No relevant prior studies available. FINDINGS: Bones/joints: No acute fracture or dislocation is identified. There is mild osteophyte formation about the acromioclavicular joint. Mild productive change is present along the greater tuberosity. There is no osseous erosion or cortical destruction. Soft tissues: The soft tissues appear grossly unremarkable. IMPRESSION: 1. No acute fracture or dislocation identified. 2. Degenerative changes as described. PROCEDURE INFORMATION: Exam: XR Left Shoulder Exam date and time: 06/04/2021 6:33 AM Age: 65 years old Clinical indication: Pain; Shoulder; Bilateral; Additional info: Trauma TECHNIQUE: Imaging protocol: XR Left shoulder. Views: 2 or more views. COMPARISON: No relevant prior studies available. FINDINGS: Bones/joints: No acute fracture or dislocation is identified. There is mild osteophyte formation about the acromioclavicular joint. Mild productive change is present along the greater tuberosity. There is no osseous erosion or cortical destruction. Soft tissues: The soft tissues appear grossly unremarkable. IMPRESSION: 1. No acute fracture or dislocation identified. 2. Degenerative changes as described. Electronically signed by: Haider Rudolph On 06/04/2021 08:24:53 AM
[2021-06-04 10:04] VITALS: BP 117/74
== END 2021-06-04 09:40 | disposition home or self-care (01) ==
LOC: M ED 05:12
DX: S46.811A Strain of other muscles, fascia and tendons at shoulder and upper arm level, right arm, initial encounter (principal); S46.812A Strain of other muscles, fascia and tendons at shoulder and upper arm level, left arm, initial encounter; W01.0XXA Fall on same level from slipping, tripping and stumbling without subsequent striking against object, initial encounter; Y92.009 Unspecified place in unspecified non-institutional (private) residence as the place of occurrence of the external cause; Y93.9 Activity, unspecified; Y99.9 Unspecified external cause status; S52.591D Other fractures of lower end of right radius, subsequent encounter for closed fracture with routine healing; S52.611D Displaced fracture of right ulna styloid process, subsequent encounter for closed fracture with routine healing; W01.0XXD Fall on same level from slipping, tripping and stumbling without subsequent striking against object, subsequent encounter; M54.32 Sciatica, left side; M25.711 Osteophyte, right shoulder; M25.712 Osteophyte, left shoulder; I12.9 Hypertensive chronic kidney disease with stage 1 through stage 4 chronic kidney disease, or unspecified chronic kidney disease; N18.9 Chronic kidney disease, unspecified; I48.91 Unspecified atrial fibrillation; E78.5 Hyperlipidemia, unspecified; E03.9 Hypothyroidism, unspecified; J44.9 Chronic obstructive pulmonary disease, unspecified; G47.33 Obstructive sleep apnea (adult) (pediatric); Z88.8 Allergy status to other drugs, medicaments and biological substances; Z79.899 Other long term (current) drug therapy; Z79.82 Long term (current) use of aspirin; Z79.890 Hormone replacement therapy

== ENCOUNTER 2021-06-23 21:28 | Inpatient (IN) | payer MEDICARE, MEDICAID ==
[~2021-06-23] VITALS: Ht 154.9 cm; Wt 75.5 kg
[~2021-06-23 21:28] MED LIST changes: -AMIO200T3 PO; +AMIO200T49 PO
[2021-06-23] MEDS ORDERED: METOPROLOL TART 25 MG TABLET PO ONE (22:10)
[2021-06-23] MEDS ORDERED: FUROSEMIDE 100MG/10ML VIAL (J1940) IV ONE (22:10)
[2021-06-23 22:26] LABS: BASO % 0.5 % (0.0-1.0); HEMATOCRIT 34.4 % (36.0-47.0); HEMOGLOBIN 10.6 g/dl (12.0-15.5); LYMPH # 0.9 10^3/uL (1.5-5.0); LYMPH % 10.3 % (24.0-44.0); MEAN CORPUSCULAR HEMOGLOBIN 31.5 pg (27.0-33.0); MEAN CORPUSCULAR HGB CONC 30.8 g/dl (32.0-36.5); MEAN CORPUSCULAR VOLUME 102.4 fl (80.0-96.0); MONO # 0.7 10^3/uL (0.0-0.8); MONO % 8.3 % (2.0-8.0); NEUTROPHILS # 6.7 10^3/uL (1.5-8.5); NEUTROPHILS % 80.1 % (36.0-66.0); PLATELET COUNT, AUTOMATED 123 10^3/uL (150-450); RED BLOOD COUNT 3.36 10^6/uL (4.00-5.40); WHITE BLOOD COUNT 8.4 10^3/uL (4.0-10.0)
[2021-06-23 23:03] LABS: ALBUMIN 3.5 GM/DL (3.2-5.2); ALT/SGPT 17 U/L (12-78); BILIRUBIN,DIRECT < 0.1 MG/DL (0.0-0.2); BILIRUBIN,TOTAL 0.5 MG/DL (0.2-1.0); BLOOD UREA NITROGEN 36 MG/DL (7-18); CARBON DIOXIDE LEVEL 31 MEQ/L (21-32); CHLORIDE LEVEL 102 MEQ/L (98-107); CREATININE FOR GFR 7.19 MG/DL (0.55-1.30); GLOMERULAR FILTRATION RATE 6.1 (>45); GLUCOSE, FASTING 121 MG/DL (70-100); NT-PRO BNP 34104 PG/ML (<125); POTASSIUM SERUM 5.7 MEQ/L (3.5-5.1); SODIUM LEVEL 140 MEQ/L (136-145); THYROID STIMULATING HORMONE 0.825 uIU/ML (0.358-3.740); THYROXINE (T4) 10.7 UG/DL (4.5-12.0); TOTAL PROTEIN 7.6 GM/DL (6.4-8.2)
[2021-06-23 23:11] LABS: RSV AMPLIFICATION NEGATIVE (NEGATIVE)
[2021-06-23] MEDS ORDERED: HOME MED LIST COMPLETE! XX SCH (23:25)
[2021-06-24] VITALS (10 sets, daily range): BP systolic 109–130; BP diastolic 59–78; O2SAT 95–96
[2021-06-24] MEDS ORDERED: METOPROLOL 5 MG/5 ML VIAL IV STA (00:07)
[2021-06-24] MEDS ORDERED: SOD POLYSTYRENE SULFONATE SUSP 15 GM/60 ML UD PO ONE (00:10)
[2021-06-24] MEDS ORDERED: MOM 30ML SUSPENSION UDC PO PRN (00:10)
[2021-06-24] MEDS ORDERED: FUROSEMIDE 100MG/10ML VIAL (J1940) IV ONE (00:10)
[2021-06-24] MEDS ORDERED: ACETAMINOPHEN TAB 650MG DOSE (2X325MG) PO PRN (00:10)
[2021-06-24] MEDS ORDERED: MAALOX 30 ML SUSP *UDC PO PRN (00:10)
[2021-06-24] MEDS: METOPROLOL 5 MG/5 ML VIAL IV SCH ×2 (01:40→01:45)
[2021-06-24] MEDS ORDERED: CYCLOBENZAPRINE 5MG TABLET PO PRN (01:45)
[2021-06-24] MEDS ORDERED: NORCO, ANEXSIA 5/325MG TABLET (HYDROcodone/ACETAMINOPHEN) PO PRN (01:45)
[2021-06-24] MEDS ORDERED: IPRATROPIUM 0.5MG/ALBUTEROL 2.5MG INH SOL UD 3ML (DUONEB) NEB PRN (01:45)
[2021-06-24] MEDS ORDERED: MIRALAX *UNIT DOSE* 17GM PACKET PO PRN (01:45)
[2021-06-24] MEDS: traZODone 100 MG TAB PO SCH ×2 (02:28→21:13)
[2021-06-24] MEDS: diazePAM 2 MG TAB PO SCH ×2 (02:28→21:17)
[2021-06-24] MEDS: ROSUVASTATIN 10 MG TAB (CRESTOR) PO SCH ×2 (02:28→21:19)
[2021-06-24] MEDS ORDERED: AMIODARONE HCL 150 MG in IV 1 EA IV STA (04:37)
[2021-06-24] MEDS ORDERED: LEVOTHYROXINE 75MCG TABLET (0.075MG) PO SCH (06:00)
[2021-06-24] MEDS: HEPARIN SOD (PORCINE) 5000UNITS/ML 1ML VIAL/SYRINGE SC SCH ×3 (06:05→21:13)
[2021-06-24 06:23] LABS: HEMATOCRIT 32.6 % (36.0-47.0); MEAN CORPUSCULAR HEMOGLOBIN 31.8 pg (27.0-33.0); MEAN CORPUSCULAR HGB CONC 30.7 g/dl (32.0-36.5); MEAN CORPUSCULAR VOLUME 103.8 fl (80.0-96.0); PLATELET COUNT, AUTOMATED 122 10^3/uL (150-450); RED BLOOD COUNT 3.14 10^6/uL (4.00-5.40); WHITE BLOOD COUNT 7.2 10^3/uL (4.0-10.0)
[2021-06-24 06:54] LABS: CREATININE FOR GFR 7.73 MG/DL (0.55-1.30); GLOMERULAR FILTRATION RATE 5.6 (>45); POTASSIUM SERUM 4.6 MEQ/L (3.5-5.1)
[2021-06-24] MEDS ORDERED: LIDOCAINE 1% SDV 5ML VIAL SC PRN (07:25)
[2021-06-24] MEDS ORDERED: SODIUM CHLORIDE 0.9% 1000ML IV PRN (07:25)
[2021-06-24] MEDS: SUCROFERRIC OXYHYDROXIDE 500MG CHEW TAB (VELPHORO) PO SCH ×3 (12:30→17:40)
[2021-06-24] MEDS: METOPROLOL TART 50 MG TAB PO SCH ×2 (13:36→21:17)
[2021-06-24] MEDS: ASPIRIN 325 MG TAB PO SCH (13:36)
[2021-06-24] MEDS: OMEPRAZOLE 20MG CAP PO SCH (13:37)
[2021-06-25] VITALS (11 sets, daily range): BP systolic 91–116; BP diastolic 51–74; O2SAT 92–99
[2021-06-25] MEDS: HEPARIN SOD (PORCINE) 5000UNITS/ML 1ML VIAL/SYRINGE SC SCH (05:46)
[2021-06-25] MEDS ORDERED: LEVOTHYROXINE 50MCG TABLET (0.05MG) PO SCH (06:00)
[2021-06-25 06:11] LABS: HEMATOCRIT 33.3 % (36.0-47.0); HEMOGLOBIN 10.1 g/dl (12.0-15.5); MEAN CORPUSCULAR HGB CONC 30.3 g/dl (32.0-36.5); MEAN CORPUSCULAR VOLUME 102.1 fl (80.0-96.0); PLATELET COUNT, AUTOMATED 106 10^3/uL (150-450); RED BLOOD COUNT 3.26 10^6/uL (4.00-5.40); WHITE BLOOD COUNT 4.9 10^3/uL (4.0-10.0)
[2021-06-25 06:38] LABS: CALCIUM LEVEL 9.1 MG/DL (8.8-10.2); CREATININE FOR GFR 5.45 MG/DL (0.55-1.30); GLOMERULAR FILTRATION RATE 8.4 (>45)
[2021-06-25] MEDS ORDERED: LIDOCAINE 1% SDV 5ML VIAL SC PRN (07:30)
[2021-06-25] MEDS ORDERED: SODIUM CHLORIDE 0.9% 1000ML IV PRN (07:30)
[2021-06-25] MEDS: ASPIRIN 325 MG TAB PO SCH (08:16)
[2021-06-25] MEDS: OMEPRAZOLE 20MG CAP PO SCH (08:16)
[2021-06-25] MEDS: SUCROFERRIC OXYHYDROXIDE 500MG CHEW TAB (VELPHORO) PO SCH ×2 (08:16→12:58)
[2021-06-25] MEDS: METOPROLOL TART 50 MG TAB PO SCH (08:17)
[2021-06-25] MEDS ORDERED: LEVO50TA5 PO (13:01)
== END 2021-06-25 16:00 | disposition home or self-care (01) | DRG 291 ==
LOC: M ED 21:28 → M ED INP 06-24 00:07 → M PCU 06-24 04:55 → ENRESERV 06-24 06:24 → M PCU 06-24 07:41
PROVIDERS: ADMIT Internal Medicine; ATTEND Internal Medicine
PROC: 5A1D70Z Performance of Urinary Filtration, Intermittent, Less than 6 Hours Per Day (ICD-10-PCS; principal; 2021-06-24)
DX: I13.2 Hypertensive heart and chronic kidney disease with heart failure and with stage 5 chronic kidney disease, or end stage renal disease (principal); N18.6 End stage renal disease; I50.33 Acute on chronic diastolic (congestive) heart failure; I48.92 Unspecified atrial flutter; Z99.2 Dependence on renal dialysis; J44.9 Chronic obstructive pulmonary disease, unspecified; E11.22 Type 2 diabetes mellitus with diabetic chronic kidney disease; I27.20 Pulmonary hypertension, unspecified; I48.91 Unspecified atrial fibrillation; D63.1 Anemia in chronic kidney disease; E21.2 Other hyperparathyroidism; G47.33 Obstructive sleep apnea (adult) (pediatric); E03.9 Hypothyroidism, unspecified; K76.0 Fatty (change of) liver, not elsewhere classified; E66.9 Obesity, unspecified; Z74.09 Other reduced mobility; Z87.891 Personal history of nicotine dependence; E87.5 Hyperkalemia; Z79.82 Long term (current) use of aspirin; Z79.899 Other long term (current) drug therapy; Z88.8 Allergy status to other drugs, medicaments and biological substances; Z20.822 Contact with and (suspected) exposure to COVID-19; F41.9 Anxiety disorder, unspecified; Z68.31 Body mass index [BMI] 31.0-31.9, adult

== ENCOUNTER 2021-07-23 10:32 | Emergency (ER) | payer MEDICARE, MEDICAID ==
[~2021-07-23] VITALS: Ht 154.9 cm; Wt 76.5 kg
[~2021-07-23 10:32] MED LIST changes: +AMIO200T3 PO; -AMIO200T49 PO; +LEVO50TA5 PO
--- NOTE | 2021-07-23 11:01 | REP ---
INDICATION: head injury COMPARISON: 09/11/2020 TECHNIQUE: Axial noncontrast images from the skull base to the thoracic inlet with coronal reformations. This CT examination was performed using the following dose reduction techniques: Automated exposure control, adjustment of mA and/or kv according to the patient's size, and use of iterative reconstruction technique. FINDINGS: Atrophy with periventricular leukomalacia and microvascular ischemic changes are appreciated. The ventricles and sulci are symmetric. King-white differentiation is maintained. There is no evidence for acute intracranial hemorrhage, mass/mass effect, pathology or infarction. No extra-axial fluid collection. Calvarium is intact. Paranasal sinuses and mastoid air cells are clear. IMPRESSION: Atrophy and microvascular ischemic changes. No acute intracranial hemorrhage, infarction, or mass/mass effect. <Electronically signed by Geovanni Scanlon > 07/23/21 1138
[2021-07-23 11:10] VITALS: BP 107/61
== END 2021-07-23 11:28 | disposition home or self-care (01) ==
LOC: M ED 10:32 → EDBD 10:32 → M ED 11:28
DX: S00.03XA Contusion of scalp, initial encounter (principal); W22.8XXA Striking against or struck by other objects, initial encounter; Y92.481 Parking lot as the place of occurrence of the external cause; Y93.89 Activity, other specified; Y99.9 Unspecified external cause status; I48.91 Unspecified atrial fibrillation; E11.9 Type 2 diabetes mellitus without complications; I10 Essential (primary) hypertension; J44.9 Chronic obstructive pulmonary disease, unspecified; N18.6 End stage renal disease; Z99.2 Dependence on renal dialysis; G47.33 Obstructive sleep apnea (adult) (pediatric); Z87.891 Personal history of nicotine dependence; Z86.79 Personal history of other diseases of the circulatory system; Z79.82 Long term (current) use of aspirin; Z79.899 Other long term (current) drug therapy; Z88.8 Allergy status to other drugs, medicaments and biological substances

== ENCOUNTER 2021-08-10 09:33 | Emergency (ER) | payer MEDICARE, MEDICAID ==
[~2021-08-10] VITALS: Ht 154.9 cm; Wt 77.3 kg
[~2021-08-10 09:33] MED LIST changes: -AMIO200T3 PO; +AMIO200T49 PO
[2021-08-10] MEDS ORDERED: METOPROLOL TART 50 MG TAB PO ONE (10:10)
[2021-08-10] MEDS ORDERED: ONDANSETRON 4MG/2ML VIAL IV ONE (10:10)
[2021-08-10 10:19] LABS: BASO % 0.4 % (0.0-1.0); HEMATOCRIT 37.4 % (36.0-47.0); HEMOGLOBIN 11.5 g/dl (12.0-15.5); LYMPH # 0.4 10^3/uL (1.5-5.0); LYMPH % 5.5 % (24.0-44.0); MEAN CORPUSCULAR HEMOGLOBIN 31.3 pg (27.0-33.0); MEAN CORPUSCULAR HGB CONC 30.7 g/dl (32.0-36.5); MEAN CORPUSCULAR VOLUME 101.9 fl (80.0-96.0); MONO # 0.6 10^3/uL (0.0-0.8); MONO % 8.7 % (2.0-8.0); NEUTROPHILS # 5.7 10^3/uL (1.5-8.5); PLATELET COUNT, AUTOMATED 108 10^3/uL (150-450); RED BLOOD COUNT 3.67 10^6/uL (4.00-5.40); WHITE BLOOD COUNT 6.7 10^3/uL (4.0-10.0)
[2021-08-10 10:49] LABS: ALBUMIN 4.1 GM/DL (3.2-5.2); BILIRUBIN,DIRECT 0.1 MG/DL (0.0-0.2); BILIRUBIN,TOTAL 0.3 MG/DL (0.2-1.0); CALCIUM LEVEL 9.1 MG/DL (8.8-10.2); CREATININE FOR GFR 3.85 MG/DL (0.55-1.30); GLOMERULAR FILTRATION RATE 12.5 (>45); POTASSIUM SERUM 3.4 MEQ/L (3.5-5.1); TOTAL PROTEIN 7.9 GM/DL (6.4-8.2)
[2021-08-10 12:43] LABS: RSV AMPLIFICATION NEGATIVE (NEGATIVE)
[2021-08-10 14:18] VITALS: BP 124/64
== END 2021-08-10 14:38 | disposition home or self-care (01) ==
LOC: M ED 09:33
DX: R11.2 Nausea with vomiting, unspecified (principal); R19.7 Diarrhea, unspecified; R94.31 Abnormal electrocardiogram [ECG] [EKG]; I48.91 Unspecified atrial fibrillation; N18.6 End stage renal disease; I50.9 Heart failure, unspecified; I13.2 Hypertensive heart and chronic kidney disease with heart failure and with stage 5 chronic kidney disease, or end stage renal disease; J44.9 Chronic obstructive pulmonary disease, unspecified; Z79.890 Hormone replacement therapy; Z79.899 Other long term (current) drug therapy; Z79.82 Long term (current) use of aspirin; Z88.1 Allergy status to other antibiotic agents; Z88.8 Allergy status to other drugs, medicaments and biological substances; Z99.2 Dependence on renal dialysis
CPT/HCPCS: 71045; 80048; 80076; 83690; 84484; 85025; 87631; 93005; 93041; 94760; 96374; 99285; J2405

== ENCOUNTER 2021-08-21 03:51 | Inpatient (IN) | payer MEDICARE, MEDICAID ==
[~2021-08-21] VITALS: Ht 154.9 cm; Wt 76.3 kg
[2021-08-21 04:57] LABS: BASO % 0.3 % (0.0-1.0); HEMATOCRIT 33.3 % (36.0-47.0); HEMOGLOBIN 10.3 g/dl (12.0-15.5); LYMPH % 10.7 % (24.0-44.0); MEAN CORPUSCULAR HEMOGLOBIN 31.2 pg (27.0-33.0); MEAN CORPUSCULAR HGB CONC 30.9 g/dl (32.0-36.5); MEAN CORPUSCULAR VOLUME 100.9 fl (80.0-96.0); MONO # 0.6 10^3/uL (0.0-0.8); MONO % 6.6 % (2.0-8.0); NEUTROPHILS # 7.3 10^3/uL (1.5-8.5); PLATELET COUNT, AUTOMATED 114 10^3/uL (150-450)
[2021-08-21 05:30] LABS: CK-MB VALUE MASS < 1.0 NG/ML (<3.6); CPK CREATINE PHOSPHOKINASE 17 U/L (26-192); MB/CK RELATIVE INDEX 5.88 (< OR =4)
[2021-08-21 05:36] LABS: ALBUMIN 3.6 GM/DL (3.2-5.2); BILIRUBIN,DIRECT 0.1 MG/DL (0.0-0.2); BILIRUBIN,TOTAL 0.3 MG/DL (0.2-1.0); CALCIUM LEVEL 9.2 MG/DL (8.8-10.2); CREATININE FOR GFR 9.48 MG/DL (0.55-1.30); GLOMERULAR FILTRATION RATE 4.4 (>45); POTASSIUM SERUM 5.8 MEQ/L (3.5-5.1); TOTAL PROTEIN 7.4 GM/DL (6.4-8.2)
[2021-08-21 06:16] LABS: CK-MB VALUE MASS < 1.0 NG/ML (<3.6); CPK CREATINE PHOSPHOKINASE 16 U/L (26-192); MB/CK RELATIVE INDEX 6.25 (< OR =4)
[2021-08-21] MEDS ORDERED: METOCLOPRAMIDE INJ 10MG/2ML VIAL (J2765 PER 1) IV ONE (06:35)
[2021-08-21] MEDS ORDERED: METO50TA7 PO ×2 (06:59)
[2021-08-21] MEDS ORDERED: SYNT50TA PO (06:59)
[2021-08-21] MEDS ORDERED: HOME MED LIST COMPLETE! XX SCH (07:00)
[2021-08-21] MEDS ORDERED: ONDANSETRON 4MG/2ML VIAL IV PRN (13:00)
[2021-08-21] MEDS ORDERED: diazePAM 2 MG TAB PO PRN (13:00)
[2021-08-21] MEDS ORDERED: DIGOXIN INJ 0.5 MG/2 ML AMP (J1160) IV ONE (13:25)
[2021-08-21] MEDS: METOPROLOL TART 50 MG TAB PO SCH (13:55)
[2021-08-21] MEDS ORDERED: PANTOPRAZOLE 40MG VIAL (C9113 PER 1) IV SCH (14:00)
[2021-08-21] MEDS ORDERED: LIDOCAINE 1% SDV 5ML VIAL SC PRN (14:35)
[2021-08-21] MEDS ORDERED: SODIUM CHLORIDE 0.9% 1000ML IV PRN (14:35)
[2021-08-21] MEDS: ASPIRIN 325 MG TAB PO SCH (15:19)
[2021-08-21] MEDS: COMBIVENT RESPIMAT 100-20MCG INHALER 4GM INH SCH ×2 (16:00→20:00)
[2021-08-21] MEDS: SUCROFERRIC OXYHYDROXIDE 500MG CHEW TAB (VELPHORO) PO SCH (19:13)
[2021-08-21 19:15] VITALS: BP 142/88
[2021-08-21] MEDS ORDERED: SYMBICORT 160/4.5MCG INHALER 6GM INH SCH (20:00)
[2021-08-21] MEDS ORDERED: DIGOXIN 0.125 MG TAB PO ONE (21:00)
[2021-08-21] MEDS ORDERED: ROSUVASTATIN 10 MG TAB (CRESTOR) PO SCH (21:00)
[2021-08-21] MEDS ORDERED: traZODone 100 MG TAB PO SCH (21:00)
[2021-08-21] MEDS ORDERED: ACETAMINOPHEN TAB 650MG DOSE (2X325MG) PO PRN (23:25)
[2021-08-22 06:00] VITALS: BP 115/75
[2021-08-22] MEDS ORDERED: LEVOTHYROXINE 50MCG TABLET (0.05MG) PO SCH (06:00)
[2021-08-22 06:02] LABS: BASO % 0.7 % (0.0-1.0); EOS # 0.2 10^3/uL (0.0-0.5); EOS % 2.6 % (0.0-3.0); HEMATOCRIT 28.7 % (36.0-47.0); LYMPH # 1.2 10^3/uL (1.5-5.0); LYMPH % 19.8 % (24.0-44.0); MEAN CORPUSCULAR HEMOGLOBIN 31.4 pg (27.0-33.0); MEAN CORPUSCULAR HGB CONC 31.4 g/dl (32.0-36.5); MONO # 0.6 10^3/uL (0.0-0.8); MONO % 10.8 % (2.0-8.0); NEUTROPHILS # 3.8 10^3/uL (1.5-8.5); NEUTROPHILS % 65.8 % (36.0-66.0); RED BLOOD COUNT 2.87 10^6/uL (4.00-5.40); WHITE BLOOD COUNT 5.8 10^3/uL (4.0-10.0)
[2021-08-22 06:06] LABS: PLATELET COUNT, AUTOMATED 99 10^3/uL (150-450)
[2021-08-22] MEDS: ASPIRIN 325 MG TAB PO SCH (06:21)
[2021-08-22 06:22] LABS: CREATININE FOR GFR 6.3 MG/DL (0.55-1.30); GLOMERULAR FILTRATION RATE 7.1 (>45); POTASSIUM SERUM 4.5 MEQ/L (3.5-5.1)
[2021-08-22 06:23] VITALS: BP 115/75
[2021-08-22] MEDS: SUCROFERRIC OXYHYDROXIDE 500MG CHEW TAB (VELPHORO) PO SCH ×2 (06:23→12:37)
[2021-08-22] MEDS: METOPROLOL TART 50 MG TAB PO SCH (06:23)
[2021-08-22] MEDS: COMBIVENT RESPIMAT 100-20MCG INHALER 4GM INH SCH ×2 (07:24→11:10)
[2021-08-22] MEDS ORDERED: SODIUM CHLORIDE 0.9% 1000ML IV PRN (08:40)
[2021-08-22] MEDS ORDERED: LIDOCAINE 1% SDV 5ML VIAL SC PRN (08:40)
[2021-08-22] MEDS ORDERED: DIGOXIN 0.125 MG TAB PO SCH (09:00)
[2021-08-22] MEDS ORDERED: METOPROLOL TART 50 MG TAB PO SCH ×2 (09:00→21:00)
[2021-08-22] MEDS ORDERED: DIGO0.123 PO (10:49)
[2021-08-22 13:52] VITALS: BP 119/76
== END 2021-08-22 14:01 | disposition home or self-care (01) | DRG 291 ==
LOC: M ED 03:51 → EDBD 03:51 → M ED INP 12:17 → ENRESERV 13:35 → M MSPAV 14:53
PROVIDERS: ADMIT Internal Medicine Nephrology; ATTEND Internal Medicine Nephrology
PROC: 5A1D70Z Performance of Urinary Filtration, Intermittent, Less than 6 Hours Per Day (ICD-10-PCS; principal; 2021-08-21)
DX: I13.2 Hypertensive heart and chronic kidney disease with heart failure and with stage 5 chronic kidney disease, or end stage renal disease (principal); N18.6 End stage renal disease; I50.33 Acute on chronic diastolic (congestive) heart failure; N25.81 Secondary hyperparathyroidism of renal origin; I48.92 Unspecified atrial flutter; I48.91 Unspecified atrial fibrillation; D63.1 Anemia in chronic kidney disease; E11.22 Type 2 diabetes mellitus with diabetic chronic kidney disease; I27.20 Pulmonary hypertension, unspecified; J44.9 Chronic obstructive pulmonary disease, unspecified; E66.01 Morbid (severe) obesity due to excess calories; K74.60 Unspecified cirrhosis of liver; A08.4 Viral intestinal infection, unspecified; E83.39 Other disorders of phosphorus metabolism; D69.6 Thrombocytopenia, unspecified; F41.9 Anxiety disorder, unspecified; K57.30 Diverticulosis of large intestine without perforation or abscess without bleeding; Z91.15 Patient's noncompliance with renal dialysis; E03.9 Hypothyroidism, unspecified; E78.5 Hyperlipidemia, unspecified; Z79.899 Other long term (current) drug therapy; Z79.82 Long term (current) use of aspirin; Z88.8 Allergy status to other drugs, medicaments and biological substances; G47.33 Obstructive sleep apnea (adult) (pediatric)

== ENCOUNTER → 2021-09-06 | Outpatient (CLI) | payer MEDICARE, MEDICAID ==
[~2021-09-06] MED LIST changes: +DIGO0.123 PO; +SYNT50TA PO
[2021-09-06 14:08] LABS: FREE T4 1.11 NG/DL (0.76-1.46); THYROID STIMULATING HORMONE 1.55 uIU/ML (0.358-3.740)
== END ==
LOC: M PLALAB 10:42
PROVIDERS: ATTEND Family Medicine
DX: I48.91 Unspecified atrial fibrillation (principal); E03.9 Hypothyroidism, unspecified

== ENCOUNTER 2021-09-24 05:28 | Inpatient (IN) | payer MEDICARE, MEDICAID ==
[~2021-09-24] VITALS: Ht 154.9 cm; Wt 74.5 kg
[2021-09-24] MEDS ORDERED: COMBIVENT RESPIMAT 100-20MCG INHALER 4GM INH STA (05:48)
[2021-09-24 06:28] LABS: BASO % 0.4 % (0.0-1.0); HEMATOCRIT 35.8 % (36.0-47.0); HEMOGLOBIN 11.2 g/dl (12.0-15.5); LYMPH # 0.9 10^3/uL (1.5-5.0); LYMPH % 9.7 % (24.0-44.0); MEAN CORPUSCULAR HEMOGLOBIN 32.2 pg (27.0-33.0); MEAN CORPUSCULAR HGB CONC 31.3 g/dl (32.0-36.5); MEAN CORPUSCULAR VOLUME 102.9 fl (80.0-96.0); MONO # 0.6 10^3/uL (0.0-0.8); MONO % 6.6 % (2.0-8.0); NEUTROPHILS # 7.4 10^3/uL (1.5-8.5); NEUTROPHILS % 82.7 % (36.0-66.0); PLATELET COUNT, AUTOMATED 130 10^3/uL (150-450); RED BLOOD COUNT 3.48 10^6/uL (4.00-5.40); WHITE BLOOD COUNT 8.9 10^3/uL (4.0-10.0)
[2021-09-24] MEDS ORDERED: METOPROLOL TART 50 MG TAB PO ONE (06:50)
[2021-09-24] MEDS ORDERED: ACETAMINOPHEN TAB 650MG DOSE (2X325MG) PO ONE (06:50)
[2021-09-24 07:01] LABS: CK-MB VALUE MASS < 1.0 NG/ML (<3.6); CPK CREATINE PHOSPHOKINASE 23 U/L (26-192); MB/CK RELATIVE INDEX 4.35 (< OR =4)
[2021-09-24 07:09] LABS: ALBUMIN 3.5 GM/DL (3.2-5.2); BILIRUBIN,TOTAL 0.4 MG/DL (0.2-1.0); CALCIUM LEVEL 8.9 MG/DL (8.8-10.2); CREATININE FOR GFR 8.98 MG/DL (0.55-1.30); GLOMERULAR FILTRATION RATE 4.7 (>45); TOTAL PROTEIN 7.1 GM/DL (6.4-8.2)
[2021-09-24] MEDS ORDERED: LIDOCAINE 1% SDV 5ML VIAL SC PRN (09:50)
[2021-09-24] MEDS ORDERED: SODIUM CHLORIDE 0.9% 1000ML IV PRN (09:50)
[2021-09-24] MEDS ORDERED: METOPROLOL TART 25 MG TABLET PO PRN (14:05)
[2021-09-24] MEDS: METOPROLOL 5 MG/5 ML VIAL IV SCH ×3 (15:30→16:45)
[2021-09-24 17:00] VITALS: BP 145/82
[2021-09-24] MEDS ORDERED: ACET-683 PO (18:10)
[2021-09-24] MEDS ORDERED: HOME MED LIST COMPLETE! XX SCH (18:15)
[2021-09-24] MEDS: ACETAMINOPHEN TAB 650MG DOSE (2X325MG) PO PRN (20:37)
[2021-09-24] MEDS ORDERED: ROSUVASTATIN 10 MG TAB (CRESTOR) PO SCH (21:00)
[2021-09-24] MEDS: SUCROFERRIC OXYHYDROXIDE 500MG CHEW TAB (VELPHORO) PO SCH (21:03)
[2021-09-24 22:00] VITALS: BP 127/66
[2021-09-25] MEDS ORDERED: METOPROLOL TART 25 MG TABLET PO ONE (05:15)
[2021-09-25 05:23] VITALS: BP 128/68
[2021-09-25 05:40] VITALS: BP 128/68
[2021-09-25] MEDS: ACETAMINOPHEN TAB 650MG DOSE (2X325MG) PO PRN (05:42)
[2021-09-25] MEDS ORDERED: LEVOTHYROXINE 50MCG TABLET (0.05MG) PO SCH (06:00)
[2021-09-25] MEDS: SUCROFERRIC OXYHYDROXIDE 500MG CHEW TAB (VELPHORO) PO SCH ×2 (08:08→11:59)
[2021-09-25] MEDS ORDERED: NEPHRO-VIT TAB (NEPHROCAPS) PO SCH (09:00)
[2021-09-25] MEDS ORDERED: NON-FORMULARY 1 EA EA PO SCH (09:00)
[2021-09-25] MEDS ORDERED: NON-FORMULARY 1 EA EA INH SCH (09:00)
[2021-09-25] MEDS ORDERED: ASPIRIN 325 MG TAB PO SCH (09:00)
[2021-09-25] MEDS ORDERED: METOPROLOL TART 50 MG TAB PO SCH (09:00)
[2021-09-25] MEDS ORDERED: OMEPRAZOLE 20MG CAP PO SCH (09:00)
[2021-09-26] MEDS ORDERED: METOPROLOL TART 25 MG TABLET PO SCH (09:00)
== END 2021-09-25 12:16 | disposition home or self-care (01) | DRG 291 ==
LOC: M ED 06:41 → M ED INP 09:45 → ENRESERV 16:05 → M MSPAV 17:02
PROVIDERS: ADMIT General Practice; ATTEND General Practice
PROC: 5A1D70Z Performance of Urinary Filtration, Intermittent, Less than 6 Hours Per Day (ICD-10-PCS; principal; 2021-09-24)
DX: I13.2 Hypertensive heart and chronic kidney disease with heart failure and with stage 5 chronic kidney disease, or end stage renal disease (principal); N18.6 End stage renal disease; I50.33 Acute on chronic diastolic (congestive) heart failure; N25.81 Secondary hyperparathyroidism of renal origin; I48.20 Chronic atrial fibrillation, unspecified; I48.92 Unspecified atrial flutter; Z99.2 Dependence on renal dialysis; J44.9 Chronic obstructive pulmonary disease, unspecified; I27.20 Pulmonary hypertension, unspecified; K74.60 Unspecified cirrhosis of liver; I16.0 Hypertensive urgency; E83.39 Other disorders of phosphorus metabolism; E11.22 Type 2 diabetes mellitus with diabetic chronic kidney disease; E66.01 Morbid (severe) obesity due to excess calories; Z68.31 Body mass index [BMI] 31.0-31.9, adult; G47.33 Obstructive sleep apnea (adult) (pediatric); D69.6 Thrombocytopenia, unspecified; R26.89 Other abnormalities of gait and mobility; Z90.79 Acquired absence of other genital organ(s); Z97.8 Presence of other specified devices; Z20.822 Contact with and (suspected) exposure to COVID-19; D63.1 Anemia in chronic kidney disease; Z79.82 Long term (current) use of aspirin; Z79.899 Other long term (current) drug therapy; Z88.8 Allergy status to other drugs, medicaments and biological substances; E87.5 Hyperkalemia; E11.42 Type 2 diabetes mellitus with diabetic polyneuropathy; Z99.81 Dependence on supplemental oxygen

== ENCOUNTER 2021-10-29 07:57 | Emergency (ER) | payer MEDICARE, MEDICAID ==
[~2021-10-29 07:57] MED LIST changes: +ACET-683 PO
[2021-10-29] MEDS ORDERED: ONDA-83 PO (08:32)
[2021-10-29] MEDS ORDERED: ISOVUE-370 76% 100ML VIAL As Ordered ONE (09:07)
[2021-10-29 09:18] LABS: INR 0.86; PROTHROMBIN TIME 12.1 SECONDS (12.7-14.5)
[2021-10-29 09:19] LABS: PARTIAL THROMBOPLASTIN TIME 32.7 SECONDS (25.9-37.0)
[2021-10-29 09:25] LABS: BASO # 0.1 10^3/uL (0.0-0.2); BASO % 0.8 % (0.0-1.0); EOS # 0.2 10^3/uL (0.0-0.5); EOS % 3.7 % (0.0-3.0); HEMATOCRIT 35.5 % (36.0-47.0); HEMOGLOBIN 10.8 g/dl (12.0-15.5); LYMPH # 1.1 10^3/uL (1.5-5.0); LYMPH % 17.8 % (24.0-44.0); MEAN CORPUSCULAR HGB CONC 30.4 g/dl (32.0-36.5); MONO # 0.6 10^3/uL (0.0-0.8); MONO % 8.8 % (2.0-8.0); NEUTROPHILS # 4.3 10^3/uL (1.5-8.5); NEUTROPHILS % 68.4 % (36.0-66.0); PLATELET COUNT, AUTOMATED 100 10^3/uL (150-450); RED BLOOD COUNT 3.48 10^6/uL (4.00-5.40); WHITE BLOOD COUNT 6.2 10^3/uL (4.0-10.0)
[2021-10-29 09:34] LABS: CK-MB VALUE MASS < 1.0 NG/ML (<3.6); CPK CREATINE PHOSPHOKINASE 38 U/L (26-192); MB/CK RELATIVE INDEX 2.63 (< OR =4)
[2021-10-29 09:36] LABS: RSV AMPLIFICATION NEGATIVE (NEGATIVE)
[2021-10-29 09:50] LABS: ALBUMIN 3.6 GM/DL (3.2-5.2); BILIRUBIN,DIRECT 0.1 MG/DL (0.0-0.2); BILIRUBIN,TOTAL 0.4 MG/DL (0.2-1.0); CALCIUM LEVEL 8.9 MG/DL (8.8-10.2); CREATININE FOR GFR 9.13 MG/DL (0.55-1.30); FREE T4 1.01 NG/DL (0.76-1.46); GLOMERULAR FILTRATION RATE 4.6 (>45); POTASSIUM SERUM 6.3 MEQ/L (3.5-5.1); THYROID STIMULATING HORMONE 1.57 uIU/ML (0.358-3.740); TOTAL PROTEIN 7.2 GM/DL (6.4-8.2)
[2021-10-29] MEDS ORDERED: PATIROMER SORBITEX CALCIUM 8.4 GM POWDER PACKET (VELTASSA) PO ONE (10:00)
[2021-10-29] MEDS ORDERED: HumuLIN R (REGULAR) INSULIN (NovoLIN R) **100U/ML** PER UNIT IV ONE (10:00)
[2021-10-29] MEDS ORDERED: DEXTROSE 50% 50 ML SYRINGE IV ONE (10:00)
[2021-10-29] MEDS ORDERED: CALCIUM GLUCONATE 1,000MG/10ML VIAL (100MG/ML) (J0610) IV ONE (10:00)
[2021-10-29] MEDS ORDERED: SODIUM BICARBONATE 8.4% INJ 50 ML SYRINGE IV ONE (10:00)
[2021-10-29 10:22] LABS: CK-MB VALUE MASS < 1.0 NG/ML (<3.6); CPK CREATINE PHOSPHOKINASE 21 U/L (26-192); MB/CK RELATIVE INDEX 4.76 (< OR =4)
[2021-10-29] MEDS ORDERED: ONDANSETRON 4MG ORAL DISINTEGRATING TAB PO ONE (11:15)
[2021-10-29 11:27] VITALS: BP 140/80
== END 2021-10-29 11:39 | disposition home or self-care (01) ==
LOC: EDBD 07:57 → M ED 07:57
DX: R07.9 Chest pain, unspecified (principal); I48.91 Unspecified atrial fibrillation; R93.429 Abnormal radiologic findings on diagnostic imaging of unspecified kidney; E87.5 Hyperkalemia; I50.9 Heart failure, unspecified; I27.0 Primary pulmonary hypertension; E11.9 Type 2 diabetes mellitus without complications; I10 Essential (primary) hypertension; G47.30 Sleep apnea, unspecified; K57.30 Diverticulosis of large intestine without perforation or abscess without bleeding; Z87.891 Personal history of nicotine dependence; Z79.82 Long term (current) use of aspirin; Z79.84 Long term (current) use of oral hypoglycemic drugs; Z79.899 Other long term (current) drug therapy; Z88.8 Allergy status to other drugs, medicaments and biological substances
CPT/HCPCS: 71045; 71275; 74177; 80048; 80076; 82150; 82550; 82553; 83605; 83690; 84439; 84443; 84484; 85025; 85610; 85730; 87040; 87631; 93005; 93041; 96374; 96375; 99285; J0610; J1815; Q9967

== ENCOUNTER → 2021-12-04 | Outpatient (CLI) | payer MEDICARE, MEDICAID | LOC: M LABSMTC 09:35 | PROVIDERS: ATTEND Surgery Vascular Surgery | DX: Z01.818 Encounter for other preprocedural examination (principal); Z11.52 Encounter for screening for COVID-19 ==

== ENCOUNTER → 2021-12-13 | Outpatient (CLI) | payer MEDICARE, MEDICAID ==
[~2021-12-13] MED LIST changes: +ISOVUE-370 76% 100ML VIAL As Ordered ONE
== END ==
LOC: M RAD 15:52
PROVIDERS: ATTEND Family Medicine
DX: N28.89 Other specified disorders of kidney and ureter (principal); I25.10 Atherosclerotic heart disease of native coronary artery without angina pectoris; R16.2 Hepatomegaly with splenomegaly, not elsewhere classified; N20.0 Calculus of kidney; K57.90 Diverticulosis of intestine, part unspecified, without perforation or abscess without bleeding
CPT/HCPCS: 74178; Q9967

== ENCOUNTER 2021-12-30 18:02 | Emergency (ER) | payer MEDICARE, MEDICAID ==
[~2021-12-30] VITALS: Ht 154.9 cm; Wt 74.5 kg
[~2021-12-30 18:02] MED LIST changes: +ALBU2.5V10 INH; -ALBU83IN INH; -ISOVUE-370 76% 100ML VIAL As Ordered ONE
[2021-12-30 18:47] LABS: ABG BASE EXCESS 0.4 (-2.0-2.0); ABG HCO3 26.2 MEQ/L (22.0-26.0); ABG O2 SATURATION 93.5 % (95.0-99.0); ABG PARTIAL PRESSURE CO2 47.4 mmHg (35.0-45.0); ABG PARTIAL PRESSURE O2 73.2 mmHg (75.0-100.0); ABG STANDARD HCO3 24.8 MEQ/L (22.0-26.0); ABG TOTAL CO2 27.7 MEQ/L (23.0-31.0); ABG pH (ARTERIAL) 7.361 UNITS (7.350-7.450)
[2021-12-30 19:16] LABS: BASO % 0.7 % (0.0-1.0); HEMATOCRIT 35.9 % (36.0-47.0); HEMOGLOBIN 11.4 g/dl (12.0-15.5); MEAN CORPUSCULAR HEMOGLOBIN 32.5 pg (27.0-33.0); MEAN CORPUSCULAR HGB CONC 31.8 g/dl (32.0-36.5); MEAN CORPUSCULAR VOLUME 102.3 fl (80.0-96.0); MONO # 0.5 10^3/uL (0.0-0.8); MONO % 8.1 % (2.0-8.0); NEUTROPHILS # 4.3 10^3/uL (1.5-8.5); NEUTROPHILS % 73.7 % (36.0-66.0); RED BLOOD COUNT 3.51 10^6/uL (4.00-5.40); WHITE BLOOD COUNT 5.8 10^3/uL (4.0-10.0)
[2021-12-30 19:24] LABS: PLATELET COUNT, AUTOMATED 89 10^3/uL (150-450)
[2021-12-30 19:39] LABS: CK-MB VALUE MASS < 1.0 NG/ML (<3.6); CPK CREATINE PHOSPHOKINASE 29 U/L (26-192); MB/CK RELATIVE INDEX 3.45 (< OR =4)
[2021-12-30 20:11] LABS: ALBUMIN 3.7 GM/DL (3.2-5.2); BILIRUBIN,DIRECT 0.1 MG/DL (0.0-0.2); BILIRUBIN,TOTAL 0.4 MG/DL (0.2-1.0); CALCIUM LEVEL 8.9 MG/DL (8.8-10.2); CREATININE FOR GFR 8.15 MG/DL (0.55-1.30); GLOMERULAR FILTRATION RATE 5.2 (>45); POTASSIUM SERUM 4.4 MEQ/L (3.5-5.1); THYROID STIMULATING HORMONE 1.26 uIU/ML (0.358-3.740); THYROXINE (T4) 9.8 UG/DL (4.5-12.0); TOTAL PROTEIN 7.4 GM/DL (6.4-8.2)
[2021-12-30] MEDS ORDERED: COMBIVENT RESPIMAT 100-20MCG INHALER 4GM INH ONE (21:25)
[2021-12-30 22:30] VITALS: BP 140/76
[2021-12-30] MEDS ORDERED: VENTAER INH (22:38)
== END 2021-12-30 23:04 | disposition home or self-care (01) ==
LOC: M ED 18:02
DX: J45.909 Unspecified asthma, uncomplicated (principal); R06.02 Shortness of breath; I45.19 Other right bundle-branch block; I51.7 Cardiomegaly; I50.9 Heart failure, unspecified; I10 Essential (primary) hypertension; J44.9 Chronic obstructive pulmonary disease, unspecified; E78.5 Hyperlipidemia, unspecified; K21.9 Gastro-esophageal reflux disease without esophagitis; E03.9 Hypothyroidism, unspecified; N18.6 End stage renal disease; Z99.2 Dependence on renal dialysis; Z79.82 Long term (current) use of aspirin; Z79.890 Hormone replacement therapy; Z79.899 Other long term (current) drug therapy; Z88.1 Allergy status to other antibiotic agents; Z88.8 Allergy status to other drugs, medicaments and biological substances

== ENCOUNTER 2022-01-17 08:29 | Emergency (ER) | payer MEDICARE, MEDICAID ==
[~2022-01-17] VITALS: Ht 154.9 cm; Wt 75.3 kg
[~2022-01-17 08:29] MED LIST changes: +VENTAER INH
[2022-01-17] MEDS ORDERED: PROAAER10 INH (11:24)
[2022-01-17] MEDS ORDERED: PRED20TA PO (11:24)
[2022-01-17] MEDS ORDERED: predniSONE 20 MG TAB PO ONE (11:25)
[2022-01-17] MEDS ORDERED: MUCI600T31 PO (11:30)
[2022-01-17 11:35] VITALS: BP 125/74
== END 2022-01-17 11:35 | disposition home or self-care (01) ==
LOC: M ED 08:29
DX: R05.9 Cough, unspecified (principal); R09.81 Nasal congestion; I48.91 Unspecified atrial fibrillation; I50.9 Heart failure, unspecified; I10 Essential (primary) hypertension; J44.9 Chronic obstructive pulmonary disease, unspecified; N18.6 End stage renal disease; Z99.2 Dependence on renal dialysis; Z95.5 Presence of coronary angioplasty implant and graft; Z87.891 Personal history of nicotine dependence; I51.7 Cardiomegaly; Z79.82 Long term (current) use of aspirin; Z79.890 Hormone replacement therapy; Z79.899 Other long term (current) drug therapy; Z88.8 Allergy status to other drugs, medicaments and biological substances
CPT/HCPCS: 71046; 87486; 87581; 87633; 87798; 99283; J7512

== ENCOUNTER → 2022-02-02 | Outpatient (CLI) | payer MEDICARE, MEDICAID ==
[~2022-02-02] MED LIST changes: +CALC500T61 PO; +MUCI600T31 PO; +PROAAER10 INH
== END ==
LOC: M LABSMTC 10:08
PROVIDERS: ATTEND Anesthesiology
DX: Z01.818 Encounter for other preprocedural examination (principal); Z11.52 Encounter for screening for COVID-19

== ENCOUNTER → 2022-02-03 | Outpatient (CLI) | payer MEDICARE, MEDICAID ==
[2022-02-03 16:02] LABS: HEMATOCRIT 33.2 % (36.0-47.0); HEMOGLOBIN 10.3 g/dl (12.0-15.5); MEAN CORPUSCULAR HEMOGLOBIN 32.8 pg (27.0-33.0); MEAN CORPUSCULAR VOLUME 105.7 fl (80.0-96.0); RED BLOOD COUNT 3.14 10^6/uL (4.00-5.40); WHITE BLOOD COUNT 5.9 10^3/uL (4.0-10.0)
[2022-02-03 16:05] LABS: PLATELET COUNT, AUTOMATED 98 10^3/uL (150-450)
[2022-02-03 16:23] LABS: INR 0.85
[2022-02-03 16:24] LABS: PARTIAL THROMBOPLASTIN TIME 34.7 SECONDS (25.9-37.0)
[2022-02-03 20:50] LABS: ALBUMIN 3.6 GM/DL (3.2-5.2); BILIRUBIN,TOTAL 0.5 MG/DL (0.2-1.0); CALCIUM LEVEL 8.8 MG/DL (8.8-10.2); CREATININE FOR GFR 7.09 MG/DL (0.55-1.30); GLOMERULAR FILTRATION RATE 6.2 (>45); POTASSIUM SERUM 4.1 MEQ/L (3.5-5.1); TOTAL PROTEIN 7.1 GM/DL (6.4-8.2)
== END ==
LOC: M WUC 10:08
PROVIDERS: ATTEND Urology
DX: Z01.818 Encounter for other preprocedural examination (principal); N28.89 Other specified disorders of kidney and ureter

== ENCOUNTER 2022-03-17 12:16 | Inpatient (IN) | payer MEDICARE, MEDICAID ==
[~2022-03-17] VITALS: Ht 154.9 cm; Wt 76.9 kg
[~2022-03-17 12:16] MED LIST changes: +AMOX500T2 PO
[2022-03-17 13:10] LABS: BASO % 0.4 % (0.0-1.0); HEMATOCRIT 33.4 % (36.0-47.0); HEMOGLOBIN 10.2 g/dl (12.0-15.5); LYMPH # 0.9 10^3/uL (1.5-5.0); LYMPH % 9.1 % (24.0-44.0); MEAN CORPUSCULAR HEMOGLOBIN 31.2 pg (27.0-33.0); MEAN CORPUSCULAR HGB CONC 30.5 g/dl (32.0-36.5); MEAN CORPUSCULAR VOLUME 102.1 fl (80.0-96.0); MONO # 0.6 10^3/uL (0.0-0.8); MONO % 6.7 % (2.0-8.0); NEUTROPHILS # 7.8 10^3/uL (1.5-8.5); NEUTROPHILS % 83.4 % (36.0-66.0); PLATELET COUNT, AUTOMATED 114 10^3/uL (150-450); RED BLOOD COUNT 3.27 10^6/uL (4.00-5.40); WHITE BLOOD COUNT 9.3 10^3/uL (4.0-10.0)
[2022-03-17 13:24] LABS: INR 0.98; PROTHROMBIN TIME 13.4 SECONDS (12.7-14.5)
[2022-03-17 13:25] LABS: PARTIAL THROMBOPLASTIN TIME 30.2 SECONDS (25.9-37.0)
[2022-03-17 13:52] LABS: CK-MB VALUE MASS < 1.0 NG/ML (<3.6); CPK CREATINE PHOSPHOKINASE 14 U/L (26-192); MB/CK RELATIVE INDEX 7.14 (< OR =4)
[2022-03-17 14:11] LABS: ALBUMIN 3.6 GM/DL (3.2-5.2); BILIRUBIN,DIRECT 0.1 MG/DL (0.0-0.2); BILIRUBIN,TOTAL 0.3 MG/DL (0.2-1.0); CALCIUM LEVEL 9.5 MG/DL (8.8-10.2); CREATININE FOR GFR 7.35 MG/DL (0.55-1.30); FREE T4 1.01 NG/DL (0.76-1.46); GLOMERULAR FILTRATION RATE 5.9 (>45); POTASSIUM SERUM 5.4 MEQ/L (3.5-5.1); THYROID STIMULATING HORMONE 1.45 uIU/ML (0.358-3.740); TOTAL PROTEIN 7.4 GM/DL (6.4-8.2)
[2022-03-17] MEDS ORDERED: ISOVUE-370 76% 100ML VIAL As Ordered ONE (14:12)
[2022-03-17] MEDS: METOPROLOL 5 MG/5 ML VIAL IV SCH ×3 (14:50→15:16)
[2022-03-17] MEDS: NITROGLYCERIN 0.4 MG SUBL TABLET SL PRN ×3 (15:06→15:15)
[2022-03-17 15:21] LABS: CK-MB VALUE MASS < 1.0 NG/ML (<3.6); CPK CREATINE PHOSPHOKINASE 17 U/L (26-192); MB/CK RELATIVE INDEX 5.88 (< OR =4)
[2022-03-17] MEDS ORDERED: MORPHINE 4 MG/ML 1ML VIAL/SYRINGE IV ONE (15:25)
[2022-03-17] MEDS ORDERED: GI COCKTAIL 50ML BTL(HYOSCYAMINE/MAALOX/LIDOCAINE VISCOUS)(1:3:1) PO ONE (15:40)
[2022-03-17] MEDS ORDERED: PANTOPRAZOLE 40MG VIAL IV ONE (15:40)
[2022-03-17 17:04] LABS: CK-MB VALUE MASS < 1.0 NG/ML (<3.6); CPK CREATINE PHOSPHOKINASE 21 U/L (26-192); MB/CK RELATIVE INDEX 4.76 (< OR =4)
[2022-03-17] MEDS ORDERED: METOPROLOL 5 MG/5 ML VIAL IV STA (17:20)
[2022-03-17] MEDS ORDERED: METOPROLOL TART 50 MG TAB PO ONE (17:25)
[2022-03-17] MEDS ORDERED: ASPI325T49 PO (18:39)
[2022-03-17] MEDS ORDERED: HYDR-3713 PO (18:39)
[2022-03-17] MEDS ORDERED: DIGOXIN INJ 0.5 MG/2 ML AMP (J1160) IV ONE (18:40)
[2022-03-17] MEDS ORDERED: HOME MED LIST COMPLETE! XX SCH (18:45)
[2022-03-17] MEDS ORDERED: FUROSEMIDE 100MG/10ML VIAL (J1940) IV ONE (18:55)
[2022-03-17 21:46] VITALS: BP 142/89
[2022-03-18] VITALS (7 sets, daily range): BP systolic 103–146; BP diastolic 58–87; PULSE 115
[2022-03-18] MEDS ORDERED: BISACODYL ENEMA 10 MG/30 ML PR ONE (01:00)
[2022-03-18] MEDS ORDERED: DIGOXIN INJ 0.5 MG/2 ML AMP (J1160) IV ONE (01:00)
[2022-03-18] MEDS: NITROGLYCERIN 0.4 MG SUBL TABLET SL PRN (01:04)
[2022-03-18 01:51] LABS: CK-MB VALUE MASS < 1.0 NG/ML (<3.6); CPK CREATINE PHOSPHOKINASE 11 U/L (26-192); MB/CK RELATIVE INDEX 9.09 (< OR =4)
[2022-03-18 06:11] LABS: BASO % 0.3 % (0.0-1.0); HEMATOCRIT 31.7 % (36.0-47.0); HEMOGLOBIN 9.6 g/dl (12.0-15.5); LYMPH # 1.3 10^3/uL (1.5-5.0); LYMPH % 14.3 % (24.0-44.0); MEAN CORPUSCULAR HEMOGLOBIN 31.1 pg (27.0-33.0); MEAN CORPUSCULAR HGB CONC 30.3 g/dl (32.0-36.5); MEAN CORPUSCULAR VOLUME 102.6 fl (80.0-96.0); MONO # 0.8 10^3/uL (0.0-0.8); MONO % 8.8 % (2.0-8.0); NEUTROPHILS # 6.7 10^3/uL (1.5-8.5); NEUTROPHILS % 76.1 % (36.0-66.0); PLATELET COUNT, AUTOMATED 117 10^3/uL (150-450); RED BLOOD COUNT 3.09 10^6/uL (4.00-5.40); WHITE BLOOD COUNT 8.8 10^3/uL (4.0-10.0)
[2022-03-18 06:45] LABS: CREATININE FOR GFR 8.34 MG/DL (0.55-1.30); GLOMERULAR FILTRATION RATE 5.1 (>45)
[2022-03-18] MEDS: METOPROLOL TART 25 MG TABLET PO SCH ×3 (07:45→18:25)
[2022-03-18] MEDS: OMEPRAZOLE 20MG CAP PO SCH (07:45)
[2022-03-18] MEDS: ASPIRIN ENTERIC 325 MG TAB PO SCH (07:45)
[2022-03-18] MEDS: LEVOTHYROXINE 50MCG TABLET (0.05MG) PO SCH (07:45)
[2022-03-18] MEDS: DIGOXIN 0.125 MG TAB PO SCH (07:46)
[2022-03-18] MEDS: SUCROFERRIC OXYHYDROXIDE 500MG CHEW TAB (VELPHORO) PO SCH ×3 (07:46→18:24)
[2022-03-18] MEDS ORDERED: SODIUM CHLORIDE 0.9% 1000ML IV PRN (12:00)
[2022-03-18] MEDS ORDERED: LIDOCAINE 1% SDV 5ML VIAL SC PRN (12:00)
[2022-03-18] MEDS: ROSUVASTATIN 10 MG TAB (CRESTOR) PO SCH (20:47)
[2022-03-18] MEDS: traZODone 100 MG TAB PO SCH (20:47)
[2022-03-19] VITALS (10 sets, daily range): BP systolic 96–134; BP diastolic 55–70
[2022-03-19 05:57] LABS: BASO % 0.5 % (0.0-1.0); HEMATOCRIT 30.3 % (36.0-47.0); HEMOGLOBIN 9.5 g/dl (12.0-15.5); LYMPH # 1.2 10^3/uL (1.5-5.0); LYMPH % 18.8 % (24.0-44.0); MEAN CORPUSCULAR HGB CONC 31.4 g/dl (32.0-36.5); MONO # 0.8 10^3/uL (0.0-0.8); MONO % 11.9 % (2.0-8.0); NEUTROPHILS # 4.5 10^3/uL (1.5-8.5); NEUTROPHILS % 68.3 % (36.0-66.0); PLATELET COUNT, AUTOMATED 113 10^3/uL (150-450); RED BLOOD COUNT 2.97 10^6/uL (4.00-5.40); WHITE BLOOD COUNT 6.5 10^3/uL (4.0-10.0)
[2022-03-19] MEDS: LEVOTHYROXINE 50MCG TABLET (0.05MG) PO SCH (06:21)
[2022-03-19] MEDS: METOPROLOL TART 25 MG TABLET PO SCH ×4 (06:21→19:27)
[2022-03-19 06:28] LABS: CALCIUM LEVEL 8.8 MG/DL (8.8-10.2); CREATININE FOR GFR 5.53 MG/DL (0.55-1.30); GLOMERULAR FILTRATION RATE 8.2 (>45); POTASSIUM SERUM 4.4 MEQ/L (3.5-5.1)
[2022-03-19] MEDS: NITROGLYCERIN 0.4 MG SUBL TABLET SL PRN (08:15)
[2022-03-19] MEDS: SUCROFERRIC OXYHYDROXIDE 500MG CHEW TAB (VELPHORO) PO SCH ×3 (08:29→19:27)
[2022-03-19] MEDS: DIGOXIN 0.125 MG TAB PO SCH (08:30)
[2022-03-19] MEDS: ASPIRIN ENTERIC 325 MG TAB PO SCH (08:30)
[2022-03-19] MEDS: OMEPRAZOLE 20MG CAP PO SCH (08:30)
[2022-03-19 10:56] LABS: CK-MB VALUE MASS < 1.0 NG/ML (<3.6); CPK CREATINE PHOSPHOKINASE 12 U/L (26-192); MB/CK RELATIVE INDEX 8.33 (< OR =4)
[2022-03-19 14:56] LABS: CK-MB VALUE MASS < 1.0 NG/ML (<3.6); CPK CREATINE PHOSPHOKINASE 10 U/L (26-192)
[2022-03-19] MEDS ORDERED: DIGO0.123 PO (16:12)
[2022-03-19] MEDS ORDERED: METO50TA7 PO (16:12)
[2022-03-19] MEDS: COMBIVENT RESPIMAT 100-20MCG INHALER 4GM INH SCH (19:48)
[2022-03-19] MEDS: traZODone 100 MG TAB PO SCH (20:39)
[2022-03-19] MEDS: ROSUVASTATIN 10 MG TAB (CRESTOR) PO SCH (20:39)
[2022-03-20] VITALS: BP 141/73
[2022-03-20] MEDS: METOPROLOL TART 25 MG TABLET PO SCH ×3 (00:22→12:00)
[2022-03-20 04:00] VITALS: BP 133/68
[2022-03-20] MEDS: LEVOTHYROXINE 50MCG TABLET (0.05MG) PO SCH (05:38)
[2022-03-20] MEDS ORDERED: LIDOCAINE 1% SDV 5ML VIAL SC PRN (06:00)
[2022-03-20] MEDS ORDERED: SODIUM CHLORIDE 0.9% 1000ML IV PRN (06:00)
[2022-03-20] MEDS: ASPIRIN ENTERIC 325 MG TAB PO SCH (06:49)
[2022-03-20] MEDS: OMEPRAZOLE 20MG CAP PO SCH (06:49)
[2022-03-20] MEDS: SUCROFERRIC OXYHYDROXIDE 500MG CHEW TAB (VELPHORO) PO SCH ×2 (06:49→12:29)
[2022-03-20] MEDS: COMBIVENT RESPIMAT 100-20MCG INHALER 4GM INH SCH ×2 (07:35→11:59)
[2022-03-20 07:39] VITALS: BP 144/78
[2022-03-20] MEDS: DIGOXIN 0.125 MG TAB PO SCH (07:46)
[2022-03-20 12:00] VITALS: BP 111/57
[2022-03-20 12:20] VITALS: BP 111/57
== END 2022-03-20 14:23 | disposition home or self-care (01) | DRG 291 ==
LOC: EDBD 12:16 → M ED 12:16 → M ED INP 17:47 → M PCU 19:48
PROVIDERS: ADMIT Internal Medicine Nephrology; ATTEND Internal Medicine Nephrology
PROC: BW24YZZ Computerized Tomography (CT Scan) of Chest and Abdomen using Other Contrast (ICD-10-PCS; principal; 2022-03-17)
PROC: 5A1D70Z Performance of Urinary Filtration, Intermittent, Less than 6 Hours Per Day (ICD-10-PCS; 2022-03-18)
DX: I13.2 Hypertensive heart and chronic kidney disease with heart failure and with stage 5 chronic kidney disease, or end stage renal disease (principal); N18.6 End stage renal disease; I50.33 Acute on chronic diastolic (congestive) heart failure; I48.92 Unspecified atrial flutter; N25.81 Secondary hyperparathyroidism of renal origin; I48.91 Unspecified atrial fibrillation; Z99.2 Dependence on renal dialysis; Z90.5 Acquired absence of kidney; E66.9 Obesity, unspecified; R16.2 Hepatomegaly with splenomegaly, not elsewhere classified; D69.6 Thrombocytopenia, unspecified; E83.39 Other disorders of phosphorus metabolism; D63.1 Anemia in chronic kidney disease; J44.9 Chronic obstructive pulmonary disease, unspecified; I27.20 Pulmonary hypertension, unspecified; G47.33 Obstructive sleep apnea (adult) (pediatric); Z99.81 Dependence on supplemental oxygen; E03.9 Hypothyroidism, unspecified; K74.60 Unspecified cirrhosis of liver; H81.20 Vestibular neuronitis, unspecified ear; R26.89 Other abnormalities of gait and mobility; Z79.82 Long term (current) use of aspirin; Z79.899 Other long term (current) drug therapy; Z88.8 Allergy status to other drugs, medicaments and biological substances; Z20.822 Contact with and (suspected) exposure to COVID-19; R07.89 Other chest pain; K21.9 Gastro-esophageal reflux disease without esophagitis; M54.9 Dorsalgia, unspecified; G89.29 Other chronic pain; F41.9 Anxiety disorder, unspecified; R00.0 Tachycardia, unspecified; E78.5 Hyperlipidemia, unspecified

== ENCOUNTER 2022-06-03 12:34 | Emergency (ER) | payer MEDICAID, MEDICARE, OTHER ==
[~2022-06-03] VITALS: Ht 154.9 cm; Wt 72.3 kg
[~2022-06-03 12:34] MED LIST changes: +ASPI325T49 PO
[2022-06-03 18:16] VITALS: BP 122/72
== END 2022-06-03 18:18 | disposition home or self-care (01) ==
LOC: M ED 12:34 → EDBD 12:34 → M ED 18:18
DX: M25.561 Pain in right knee (principal); M54.50 Low back pain, unspecified; M25.531 Pain in right wrist; W01.0XXA Fall on same level from slipping, tripping and stumbling without subsequent striking against object, initial encounter; Z79.82 Long term (current) use of aspirin; I48.91 Unspecified atrial fibrillation; I50.9 Heart failure, unspecified; E11.9 Type 2 diabetes mellitus without complications; J44.9 Chronic obstructive pulmonary disease, unspecified; I11.0 Hypertensive heart disease with heart failure; Z88.8 Allergy status to other drugs, medicaments and biological substances

== ENCOUNTER 2022-06-10 04:54 | Inpatient (IN) | payer MEDICARE ==
[2022-06-10 05:48] LABS: BASO % 0.5 % (0.0-1.0); EOS # 0.2 10^3/uL (0.0-0.5); EOS % 3.8 % (0.0-3.0); HEMATOCRIT 30.3 % (36.0-47.0); HEMOGLOBIN 9.2 g/dl (12.0-15.5); LYMPH # 0.7 10^3/uL (1.5-5.0); LYMPH % 11.6 % (24.0-44.0); MEAN CORPUSCULAR HEMOGLOBIN 31.1 pg (27.0-33.0); MEAN CORPUSCULAR HGB CONC 30.4 g/dl (32.0-36.5); MEAN CORPUSCULAR VOLUME 102.4 fl (80.0-96.0); MONO # 0.5 10^3/uL (0.0-0.8); MONO % 8.1 % (2.0-8.0); NEUTROPHILS # 4.5 10^3/uL (1.5-8.5); NEUTROPHILS % 75.3 % (36.0-66.0); RED BLOOD COUNT 2.96 10^6/uL (4.00-5.40)
[2022-06-10] MEDS: METOPROLOL 5 MG/5 ML VIAL IV SCH ×6 (05:59→14:33)
[2022-06-10 06:15] LABS: ALBUMIN 3.9 GM/DL (3.2-5.2); BILIRUBIN,TOTAL 0.5 MG/DL (0.2-1.0); CALCIUM LEVEL 9.2 MG/DL (8.8-10.2); CREATININE FOR GFR 9.06 MG/DL (0.55-1.30); GLOMERULAR FILTRATION RATE 4.6 (>45); MAGNESIUM LEVEL 2.1 MG/DL (1.8-2.4); POTASSIUM SERUM 5.9 MEQ/L (3.5-5.1); TOTAL PROTEIN 8.2 GM/DL (6.4-8.2)
[2022-06-10 06:17] LABS: CK-MB VALUE MASS < 1.0 NG/ML (<3.6); CPK CREATINE PHOSPHOKINASE 26 U/L (26-192); MB/CK RELATIVE INDEX 3.85 (< OR =4)
[2022-06-10] MEDS ORDERED: ONDANSETRON 4MG 2ML VIAL IV ONE (06:20)
[2022-06-10 06:48] LABS: PLATELET COUNT, AUTOMATED 71 10^3/uL (150-450)
[2022-06-10] MEDS ORDERED: METOPROLOL TART 25 MG TABLET PO ONE ×2 (08:20→13:15)
[2022-06-10 08:49] LABS: DIGOXIN LEVEL 0.2 NG/ML (0.5-2.0)
[2022-06-10] MEDS ORDERED: DIGOXIN INJ 0.5 MG/2 ML AMP IV ONE ×3 (09:00→15:00)
[2022-06-10] MEDS ORDERED: LIDOCAINE 1% SDV 5ML VIAL SC PRN (11:40)
[2022-06-10] MEDS ORDERED: SODIUM CHLORIDE 0.9% 1000ML IV PRN (11:40)
[2022-06-10] MEDS ORDERED: med rec comment (11:59)
[2022-06-10] MEDS ORDERED: ALBU8.5H INH (12:02)
[2022-06-10] MEDS ORDERED: HOME MED LIST COMPLETE! XX SCH (12:25)
[2022-06-10 12:41] LABS: INR 0.94; PROTHROMBIN TIME 12.7 SECONDS (12.5-14.5)
[2022-06-10 12:42] LABS: PARTIAL THROMBOPLASTIN TIME 34.1 SECONDS (24.8-34.2)
[2022-06-10 14:00] VITALS: BP 178/101
[2022-06-10] MEDS: HEPARIN SOD (PORCINE) 5000UNITS/ML 1ML VIAL/SYRINGE SC SCH ×2 (14:00→21:08)
[2022-06-10 14:19] VITALS: BP 147/90
[2022-06-10] MEDS ORDERED: LEVALBUTEROL 1.25 MG/0.5 ML CONCENTRATE NEB INH PRN (15:10)
[2022-06-10 16:00] VITALS: BP 151/78
[2022-06-10] MEDS ORDERED: AMIODARONE HCL 150 MG/100 ML PREMIXED BAG (NEXTERONE) (J0282 PER 30MG) As Ordered ONE (16:23)
[2022-06-10] MEDS ORDERED: AMIODARONE HCL 150 MG in IV 1 EA IV ONE (16:30)
[2022-06-10 18:36] LABS: CK-MB VALUE MASS < 1.0 NG/ML (<3.6); CPK CREATINE PHOSPHOKINASE 21 U/L (34-145); MB/CK RELATIVE INDEX 4.76 (< OR =4)
[2022-06-10 18:52] LABS: CALCIUM LEVEL 8.3 MG/DL (8.3-10.6); CREATININE FOR GFR 8.28 MG/DL (0.55-1.30); GLOMERULAR FILTRATION RATE 5.2 (>45); MAGNESIUM LEVEL 1.9 MG/DL (1.8-2.4); POTASSIUM SERUM 7.1 MMOL/L (3.5-5.1)
[2022-06-10 20:00] VITALS: BP 109/64
[2022-06-10] MEDS: FORMOTEROL FUMARATE 20 MCG/2 ML INHALATION SOLUTION (PERFOROMIST) INH SCH (20:31)
[2022-06-10] MEDS: traZODone 100 MG TAB PO SCH (21:00)
[2022-06-10] MEDS: METOPROLOL TART 50 MG TAB PO SCH (21:00)
[2022-06-10] MEDS: OYSTER SHELL CALCIUM 500 MG TAB PO SCH (21:07)
[2022-06-10] MEDS: OMEPRAZOLE 20MG CAP PO SCH (21:07)
[2022-06-10] MEDS: ROSUVASTATIN 10 MG TAB (CRESTOR) PO SCH (21:08)
[2022-06-10] MEDS: ASPIRIN ENTERIC 325 MG TAB PO SCH (21:08)
[2022-06-11] VITALS (8 sets, daily range): BP systolic 102–152; BP diastolic 55–81
[2022-06-11] MEDS: diazePAM 2 MG TAB PO PRN ×2 (00:22→20:58)
[2022-06-11] MEDS: LEVOTHYROXINE 50MCG TABLET (0.05MG) PO SCH (05:54)
[2022-06-11 06:28] LABS: BASO % 0.4 % (0.0-1.0); HEMATOCRIT 34.7 % (36.0-47.0); HEMOGLOBIN 10.7 g/dl (12.0-15.5); LYMPH # 1.3 10^3/uL (1.5-5.0); LYMPH % 16.2 % (24.0-44.0); MEAN CORPUSCULAR HGB CONC 30.8 g/dl (32.0-36.5); MEAN CORPUSCULAR VOLUME 100.6 fl (80.0-96.0); MONO # 0.9 10^3/uL (0.0-0.8); MONO % 11.8 % (2.0-8.0); NEUTROPHILS # 5.5 10^3/uL (1.5-8.5); NEUTROPHILS % 71.2 % (36.0-66.0); RED BLOOD COUNT 3.45 10^6/uL (4.00-5.40); WHITE BLOOD COUNT 7.7 10^3/uL (4.0-10.0)
[2022-06-11 06:37] LABS: PLATELET COUNT, AUTOMATED 80 10^3/uL (150-450)
[2022-06-11] MEDS: TIOTROPIUM INHALER/CAPSULE (SPIRIVA) INH SCH (07:20)
[2022-06-11] MEDS: FORMOTEROL FUMARATE 20 MCG/2 ML INHALATION SOLUTION (PERFOROMIST) INH SCH ×2 (07:20→19:24)
[2022-06-11 07:26] LABS: ALBUMIN 3.6 G/DL (3.2-5.2); CALCIUM LEVEL 8.8 MG/DL (8.3-10.6); CREATININE FOR GFR 5.85 MG/DL (0.55-1.30); GLOMERULAR FILTRATION RATE 7.7 (>45); POTASSIUM SERUM 4.8 MMOL/L (3.5-5.1)
[2022-06-11] MEDS: OMEPRAZOLE 20MG CAP PO SCH (08:13)
[2022-06-11] MEDS: METOPROLOL TART 50 MG TAB PO SCH ×2 (08:14→20:59)
[2022-06-11] MEDS: HEPARIN SOD (PORCINE) 5000UNITS/ML 1ML VIAL/SYRINGE SC SCH ×2 (08:14→20:58)
[2022-06-11] MEDS: OYSTER SHELL CALCIUM 500 MG TAB PO SCH (08:14)
[2022-06-11] MEDS: ASPIRIN ENTERIC 325 MG TAB PO SCH (08:14)
[2022-06-11] MEDS: MIDODRINE 5 MG TAB PO SCH ×3 (09:34→16:29)
[2022-06-11] MEDS: ROSUVASTATIN 10 MG TAB (CRESTOR) PO SCH (20:58)
[2022-06-11] MEDS: traZODone 100 MG TAB PO SCH (20:59)
[2022-06-12 04:00] VITALS: BP 107/58
[2022-06-12] MEDS ORDERED: LIDOCAINE 1% SDV 5ML VIAL SC PRN (06:00)
[2022-06-12] MEDS ORDERED: SODIUM CHLORIDE 0.9% 1000ML IV PRN (06:00)
[2022-06-12 06:08] LABS: BASO # 0.1 10^3/uL (0.0-0.2); BASO % 0.8 % (0.0-1.0); EOS # 0.2 10^3/uL (0.0-0.5); EOS % 3.4 % (0.0-3.0); HEMATOCRIT 32.9 % (36.0-47.0); LYMPH # 1.3 10^3/uL (1.5-5.0); LYMPH % 19.2 % (24.0-44.0); MEAN CORPUSCULAR HEMOGLOBIN 30.6 pg (27.0-33.0); MEAN CORPUSCULAR HGB CONC 30.4 g/dl (32.0-36.5); MEAN CORPUSCULAR VOLUME 100.6 fl (80.0-96.0); MONO # 0.8 10^3/uL (0.0-0.8); MONO % 11.8 % (2.0-8.0); NEUTROPHILS # 4.2 10^3/uL (1.5-8.5); NEUTROPHILS % 64.6 % (36.0-66.0); RED BLOOD COUNT 3.27 10^6/uL (4.00-5.40); WHITE BLOOD COUNT 6.5 10^3/uL (4.0-10.0)
[2022-06-12 06:16] LABS: PLATELET COUNT, AUTOMATED 82 10^3/uL (150-450)
[2022-06-12] MEDS: LEVOTHYROXINE 50MCG TABLET (0.05MG) PO SCH (06:18)
[2022-06-12] MEDS: OYSTER SHELL CALCIUM 500 MG TAB PO SCH (06:40)
[2022-06-12] MEDS: OMEPRAZOLE 20MG CAP PO SCH (06:40)
[2022-06-12] MEDS: ASPIRIN ENTERIC 325 MG TAB PO SCH (06:40)
[2022-06-12] MEDS: HEPARIN SOD (PORCINE) 5000UNITS/ML 1ML VIAL/SYRINGE SC SCH (06:41)
[2022-06-12] MEDS: TIOTROPIUM INHALER/CAPSULE (SPIRIVA) INH SCH (07:13)
[2022-06-12] MEDS: FORMOTEROL FUMARATE 20 MCG/2 ML INHALATION SOLUTION (PERFOROMIST) INH SCH (07:13)
[2022-06-12 07:32] LABS: ALBUMIN 3.4 G/DL (3.2-5.2); CALCIUM LEVEL 8.8 MG/DL (8.3-10.6); CREATININE FOR GFR 7.61 MG/DL (0.55-1.30); GLOMERULAR FILTRATION RATE 5.7 (>45); POTASSIUM SERUM 5.3 MMOL/L (3.5-5.1)
[2022-06-12 07:40] VITALS: BP 122/63
[2022-06-12] MEDS: MIDODRINE 5 MG TAB PO SCH ×2 (07:41→12:50)
[2022-06-12 12:33] VITALS: BP 124/63
[2022-06-12] MEDS: METOPROLOL TART 50 MG TAB PO SCH (12:50)
[2022-06-12] MEDS ORDERED: MIDO5TA PO (13:19)
[2022-06-12] MEDS ORDERED: METO100T5 PO (13:19)
== END 2022-06-12 15:12 | disposition home or self-care (01) | DRG 308 ==
LOC: M ED 04:54 → EDBD 04:54 → M ED INP 11:07 → ENRESERV 12:20 → M PCU 13:45
PROVIDERS: ADMIT Internal Medicine Nephrology; ATTEND Internal Medicine Nephrology
PROC: 5A1D70Z Performance of Urinary Filtration, Intermittent, Less than 6 Hours Per Day (ICD-10-PCS; principal; 2022-06-11)
DX: I48.91 Unspecified atrial fibrillation (principal); N18.6 End stage renal disease; I50.32 Chronic diastolic (congestive) heart failure; E66.2 Morbid (severe) obesity with alveolar hypoventilation; I13.2 Hypertensive heart and chronic kidney disease with heart failure and with stage 5 chronic kidney disease, or end stage renal disease; I47.20 Ventricular tachycardia, unspecified; Z99.2 Dependence on renal dialysis; E11.22 Type 2 diabetes mellitus with diabetic chronic kidney disease; J44.9 Chronic obstructive pulmonary disease, unspecified; I27.20 Pulmonary hypertension, unspecified; E03.9 Hypothyroidism, unspecified; D69.6 Thrombocytopenia, unspecified; F41.9 Anxiety disorder, unspecified; E11.42 Type 2 diabetes mellitus with diabetic polyneuropathy; Z90.79 Acquired absence of other genital organ(s); Z90.5 Acquired absence of kidney; Z79.82 Long term (current) use of aspirin; Z79.890 Hormone replacement therapy; Z79.899 Other long term (current) drug therapy; Z88.8 Allergy status to other drugs, medicaments and biological substances; I95.3 Hypotension of hemodialysis; K74.60 Unspecified cirrhosis of liver; Z87.891 Personal history of nicotine dependence; K44.9 Diaphragmatic hernia without obstruction or gangrene; E78.5 Hyperlipidemia, unspecified; E21.3 Hyperparathyroidism, unspecified; D63.1 Anemia in chronic kidney disease; R26.89 Other abnormalities of gait and mobility; E87.5 Hyperkalemia

== ENCOUNTER 2022-06-30 04:40 | Observation (INO) | payer MEDICARE, MEDICAID ==
[~2022-06-30] VITALS: Ht 154.9 cm; Wt 70.7 kg
[~2022-06-30 04:40] MED LIST changes: +ALBU8.5H INH; +MIDO5TA PO; +med rec comment
[2022-06-30 05:15] LABS: BASO # 0.1 10^3/uL (0.0-0.2); BASO % 0.5 % (0.0-1.0); HEMATOCRIT 35.8 % (36.0-47.0); HEMOGLOBIN 10.8 g/dl (12.0-15.5); LYMPH # 1.2 10^3/uL (1.5-5.0); LYMPH % 13.2 % (24.0-44.0); MEAN CORPUSCULAR HEMOGLOBIN 30.9 pg (27.0-33.0); MEAN CORPUSCULAR HGB CONC 30.2 g/dl (32.0-36.5); MEAN CORPUSCULAR VOLUME 102.3 fl (80.0-96.0); MONO # 0.7 10^3/uL (0.0-0.8); MONO % 7.2 % (2.0-8.0); NEUTROPHILS # 7.3 10^3/uL (1.5-8.5); NEUTROPHILS % 78.6 % (36.0-66.0); PLATELET COUNT, AUTOMATED 107 10^3/uL (150-450); WHITE BLOOD COUNT 9.3 10^3/uL (4.0-10.0)
[2022-06-30] MEDS: COMBIVENT RESPIMAT 100-20MCG INHALER 4GM INH SCH ×3 (05:17→06:11)
[2022-06-30 05:25] LABS: INR 0.92; PROTHROMBIN TIME 12.6 SECONDS (12.5-14.5)
[2022-06-30 05:25] LABS: CK-MB VALUE MASS < 1.0 NG/ML (<3.6)
[2022-06-30 05:27] LABS: BILIRUBIN,DIRECT 0.1 MG/DL (<0.4); CPK CREATINE PHOSPHOKINASE 26 U/L (34-145); MB/CK RELATIVE INDEX 3.84 (< OR =4)
[2022-06-30 05:30] LABS: THYROID STIMULATING HORMONE 2.209 uIU/ML (0.55-4.78)
[2022-06-30 05:35] LABS: ALBUMIN 4.3 G/DL (3.2-5.2); ALKALINE PHOSPHATASE 98 U/L (46-116); ALT/SGPT 13 U/L (7.0-40); AST/SGOT 11 U/L (<34); BILIRUBIN,TOTAL 0.3 MG/DL (0.3-1.2); BLOOD UREA NITROGEN 59 MG/DL (9-23); CALCIUM LEVEL 9.3 MG/DL (8.3-10.6); CARBON DIOXIDE LEVEL 28 MMOL/L (20-31); CHLORIDE LEVEL 98 MMOL/L (98-107); GLUCOSE, FASTING 109 MG/DL (74-106); POTASSIUM SERUM 6.1 MMOL/L (3.5-5.1); SODIUM LEVEL 138 MMOL/L (136-145); TOTAL PROTEIN 7.9 G/DL (5.7-8.2)
[2022-06-30] MEDS ORDERED: METO100T5 PO (06:07)
[2022-06-30] MEDS ORDERED: HOME MED LIST COMPLETE! XX SCH (06:10)
[2022-06-30] MEDS ORDERED: HEPARIN 1,000UNITS/ML 10ML VIAL (FOR RADIOLOGY & DIALYSIS ONLY) IV PRN (06:40)
[2022-06-30] MEDS ORDERED: HEPARIN 1,000UNITS/ML 10ML VIAL (FOR RADIOLOGY & DIALYSIS ONLY) XX SCH (06:40)
[2022-06-30] MEDS ORDERED: LIDOCAINE 1% SDV 5ML VIAL SC PRN (06:40)
[2022-06-30 07:05] LABS: CK-MB VALUE MASS < 1.0 NG/ML (<3.6); CPK CREATINE PHOSPHOKINASE 48 U/L (34-145); MB/CK RELATIVE INDEX 2.08 (< OR =4)
[2022-06-30] MEDS ORDERED: ACETAMINOPHEN 500 MG TAB PO SCH (08:00)
[2022-06-30] MEDS ORDERED: NORCO, ANEXSIA 5/325MG TABLET (HYDROcodone/ACETAMINOPHEN) PO PRN (08:30)
[2022-06-30] MEDS ORDERED: CYCLOBENZAPRINE 5MG TABLET PO PRN (09:00)
[2022-06-30] MEDS ORDERED: ACETAMINOPHEN TAB 650MG DOSE (2X325MG) PO PRN (09:00)
[2022-06-30] MEDS ORDERED: MOM 30ML SUSPENSION UDC PO PRN (09:00)
[2022-06-30] MEDS ORDERED: MAALOX 30 ML SUSP *UDC PO PRN (09:00)
[2022-06-30] MEDS ORDERED: diazePAM 2 MG TAB PO PRN (09:00)
[2022-06-30] MEDS ORDERED: ONDANSETRON 4MG TAB PO PRN (09:00)
[2022-06-30] MEDS ORDERED: ALBUTEROL 90 MCG/ACT 8GM HFA INHALER INH PRN (09:00)
[2022-06-30] MEDS ORDERED: MIRALAX *UNIT DOSE* 17GM PACKET PO PRN (09:00)
[2022-06-30] MEDS ORDERED: LEVALBUTEROL HFA 45MCG/ACT 15 GM INHALER INH PRN (10:25)
[2022-06-30] MEDS: LEVOTHYROXINE 50MCG TABLET (0.05MG) PO SCH (10:54)
[2022-06-30] MEDS: OYSTER SHELL CALCIUM 500 MG TAB PO SCH (10:54)
[2022-06-30] MEDS: OMEPRAZOLE 20MG CAP PO SCH (10:54)
[2022-06-30] MEDS: MIDODRINE 5 MG TAB PO SCH ×2 (10:54→16:00)
[2022-06-30] MEDS: ASPIRIN ENTERIC 325 MG TAB PO SCH (10:54)
[2022-06-30] MEDS: METOPROLOL TARTRATE 100MG TAB PO SCH ×2 (10:55→23:19)
[2022-06-30 11:24] LABS: HEMOGLOBIN A1c 4.8 % (4.0-6.0)
[2022-06-30] MEDS: SUCROFERRIC OXYHYDROXIDE 500MG CHEW TAB (VELPHORO) PO SCH ×2 (12:30→18:03)
[2022-06-30] MEDS: HEPARIN SOD (PORCINE) 5000UNITS/ML 1ML VIAL/SYRINGE SC SCH ×2 (14:00→23:19)
[2022-06-30] MEDS: [UNRECOGNIZED DRUG - REMARK] XX SCH (19:16)
[2022-06-30] MEDS ORDERED: ROSUVASTATIN 10 MG TAB (CRESTOR) PO SCH (21:00)
[2022-06-30] MEDS ORDERED: traZODone 100 MG TAB PO SCH (21:00)
[2022-06-30] MEDS: FORMOTEROL FUMARATE 20 MCG/2 ML INHALATION SOLUTION (PERFOROMIST) INH SCH ×2 (22:15→23:25)
[2022-06-30] MEDS: TIOTROPIUM INHALER/CAPSULE (SPIRIVA) INH SCH (22:15)
[2022-06-30 22:20] VITALS: BP 122/62
[2022-07-01 04:00] VITALS: BP 126/73
[2022-07-01 05:36] LABS: BASO % 0.6 % (0.0-1.0); EOS # 0.2 10^3/uL (0.0-0.5); EOS % 3.3 % (0.0-3.0); HEMATOCRIT 30.5 % (36.0-47.0); HEMOGLOBIN 9.2 g/dl (12.0-15.5); LYMPH # 1.2 10^3/uL (1.5-5.0); LYMPH % 17.1 % (24.0-44.0); MEAN CORPUSCULAR HEMOGLOBIN 30.7 pg (27.0-33.0); MEAN CORPUSCULAR HGB CONC 30.2 g/dl (32.0-36.5); MEAN CORPUSCULAR VOLUME 101.7 fl (80.0-96.0); MONO # 0.8 10^3/uL (0.0-0.8); MONO % 11.4 % (2.0-8.0); NEUTROPHILS # 4.7 10^3/uL (1.5-8.5); NEUTROPHILS % 67.2 % (36.0-66.0)
[2022-07-01 05:57] LABS: PLATELET COUNT, AUTOMATED 96 10^3/uL (150-450)
[2022-07-01 06:00] LABS: CALCIUM LEVEL 8.6 MG/DL (8.3-10.6); CREATININE FOR GFR 6.03 MG/DL (0.55-1.30); GLOMERULAR FILTRATION RATE 7.4 (>45); POTASSIUM SERUM 5.5 MMOL/L (3.5-5.1)
[2022-07-01] MEDS: METOPROLOL TARTRATE 100MG TAB PO SCH ×2 (06:35→12:41)
[2022-07-01] MEDS ORDERED: HEPARIN 1,000UNITS/ML 10ML VIAL (FOR RADIOLOGY & DIALYSIS ONLY) IV PRN (06:55)
[2022-07-01] MEDS ORDERED: HEPARIN 1,000UNITS/ML 10ML VIAL (FOR RADIOLOGY & DIALYSIS ONLY) XX SCH (06:55)
[2022-07-01] MEDS ORDERED: LIDOCAINE 1% SDV 5ML VIAL SC PRN (06:55)
[2022-07-01] MEDS ORDERED: SODIUM CHLORIDE 0.9% 1000ML IV PRN (06:55)
[2022-07-01] MEDS: LEVOTHYROXINE 50MCG TABLET (0.05MG) PO SCH (07:21)
[2022-07-01 07:31] VITALS: BP 137/65
[2022-07-01] MEDS: TIOTROPIUM INHALER/CAPSULE (SPIRIVA) INH SCH (08:00)
[2022-07-01] MEDS: FORMOTEROL FUMARATE 20 MCG/2 ML INHALATION SOLUTION (PERFOROMIST) INH SCH (08:00)
[2022-07-01] MEDS: MIDODRINE 5 MG TAB PO SCH ×2 (08:00→12:40)
[2022-07-01] MEDS: SUCROFERRIC OXYHYDROXIDE 500MG CHEW TAB (VELPHORO) PO SCH ×2 (08:00→12:38)
[2022-07-01] MEDS: OYSTER SHELL CALCIUM 500 MG TAB PO SCH (12:36)
[2022-07-01] MEDS: OMEPRAZOLE 20MG CAP PO SCH (12:37)
[2022-07-01] MEDS: ASPIRIN ENTERIC 325 MG TAB PO SCH (12:38)
[2022-07-01] MEDS: HEPARIN SOD (PORCINE) 5000UNITS/ML 1ML VIAL/SYRINGE SC SCH ×2 (12:39→14:00)
[2022-07-01] MEDS: [UNRECOGNIZED DRUG - REMARK] XX SCH (12:39)
[2022-07-01 12:41] VITALS: BP 120/66
== END 2022-07-01 14:42 | disposition home or self-care (01) ==
LOC: M ED 04:40 → EDBD 04:40 → M ED INP 04:41 → M PCU 22:09
PROVIDERS: ADMIT Internal Medicine; ATTEND Internal Medicine
DX: I48.0 Paroxysmal atrial fibrillation (principal); N18.6 End stage renal disease; I50.32 Chronic diastolic (congestive) heart failure; I13.2 Hypertensive heart and chronic kidney disease with heart failure and with stage 5 chronic kidney disease, or end stage renal disease; D63.1 Anemia in chronic kidney disease; E21.3 Hyperparathyroidism, unspecified; E83.39 Other disorders of phosphorus metabolism; C64.2 Malignant neoplasm of left kidney, except renal pelvis; D69.6 Thrombocytopenia, unspecified; K74.60 Unspecified cirrhosis of liver; R26.9 Unspecified abnormalities of gait and mobility; J44.9 Chronic obstructive pulmonary disease, unspecified; I27.20 Pulmonary hypertension, unspecified; G47.33 Obstructive sleep apnea (adult) (pediatric); E03.9 Hypothyroidism, unspecified; E04.1 Nontoxic single thyroid nodule; F41.9 Anxiety disorder, unspecified; R54 Age-related physical debility; Z88.8 Allergy status to other drugs, medicaments and biological substances; Z79.82 Long term (current) use of aspirin; Z79.899 Other long term (current) drug therapy
CPT/HCPCS: 36415; 71045; 76705; 80048; 80076; 82550; 82553; 83036; 83605; 84443; 84484; 85025; 85049; 85055; 85610; 87040; 87486; 87581; 87633; 87798; 93005; 93041; 94640; 94760; 99285; G0257; G0378; J1644; J7606

== ENCOUNTER 2022-07-28 17:03 | Emergency (ER) | payer OTHER, MEDICAID ==
[~2022-07-28] VITALS: Ht 154.9 cm; Wt 68.2 kg
[2022-07-28] MEDS ORDERED: methylPREDNISolone 125MG 2ML VIAL IV ONE (18:15)
[2022-07-28] MEDS: IPRATROPIUM 0.5MG/ALBUTEROL 2.5MG INH SOL UD 3ML (DUONEB) NEB PRN ×3 (18:28→21:21)
[2022-07-28 18:48] LABS: BASO # 0.1 10^3/uL (0.0-0.2); BASO % 0.9 % (0.0-1.0); EOS # 0.3 10^3/uL (0.0-0.5); EOS % 3.8 % (0.0-3.0); HEMATOCRIT 35.2 % (36.0-47.0); HEMOGLOBIN 10.3 g/dl (12.0-15.5); LYMPH # 1.1 10^3/uL (1.5-5.0); LYMPH % 16.5 % (24.0-44.0); MEAN CORPUSCULAR HEMOGLOBIN 30.3 pg (27.0-33.0); MEAN CORPUSCULAR HGB CONC 29.3 g/dl (32.0-36.5); MEAN CORPUSCULAR VOLUME 103.5 fl (80.0-96.0); MONO # 0.6 10^3/uL (0.0-0.8); MONO % 8.8 % (2.0-8.0); NEUTROPHILS # 4.6 10^3/uL (1.5-8.5); NEUTROPHILS % 69.5 % (36.0-66.0); PLATELET COUNT, AUTOMATED 127 10^3/uL (150-450); WHITE BLOOD COUNT 6.6 10^3/uL (4.0-10.0)
[2022-07-28 19:08] LABS: CK-MB VALUE MASS < 1.0 NG/ML (<3.6)
[2022-07-28 19:16] LABS: BLOOD UREA NITROGEN 36 MG/DL (9-23); CALCIUM LEVEL 9.5 MG/DL (8.3-10.6); CARBON DIOXIDE LEVEL 29 MMOL/L (20-31); CHLORIDE LEVEL 96 MMOL/L (98-107); CPK CREATINE PHOSPHOKINASE 14.99999 U/L (34-145); CREATININE FOR GFR 8.23 MG/DL (0.55-1.30); GLOMERULAR FILTRATION RATE 5.2 (>45); GLUCOSE, FASTING 88 MG/DL (74-106); POTASSIUM SERUM 5.7 MMOL/L (3.5-5.1); SODIUM LEVEL 139 MMOL/L (136-145)
[2022-07-28 20:20] LABS: CK-MB VALUE MASS < 1.0 NG/ML (<3.6)
[2022-07-28 20:24] LABS: CPK CREATINE PHOSPHOKINASE 18 U/L (34-145); MB/CK RELATIVE INDEX 5.55 (< OR =4)
[2022-07-28] MEDS ORDERED: ACETAMINOPHEN 500 MG TAB PO ONE (20:25)
[2022-07-28] MEDS ORDERED: MUCI1TAB16 PO (22:08)
[2022-07-28] MEDS ORDERED: NEBU1EAC78 MC (22:08)
[2022-07-28] MEDS ORDERED: PRED20TA PO (22:08)
[2022-07-28] MEDS ORDERED: IPRA0.00 INH (22:08)
[2022-07-28] MEDS ORDERED: BENZ200C70 PO (22:08)
[2022-07-28 22:24] VITALS: BP 120/80
[2022-07-28] MEDS ORDERED: METOPROLOL TARTRATE 100MG TAB PO ONE (22:25)
[2022-07-28] MEDS ORDERED: guaiFENesin ER 600 MG TAB PO STA (22:28)
[2022-07-28 22:33] VITALS: BP 120/78
[2022-07-28] MEDS ORDERED: CEFD300C PO (22:34)
[2022-07-29] MEDS ORDERED: guaiFENesin ER 600 MG TAB PO SCH (09:00)
== END 2022-07-28 22:46 | disposition home or self-care (01) ==
LOC: EDSEX 17:03 → EDBD 17:03 → M ED 17:54
DX: J44.1 Chronic obstructive pulmonary disease with (acute) exacerbation (principal); R06.00 Dyspnea, unspecified; E87.5 Hyperkalemia; I48.0 Paroxysmal atrial fibrillation; K21.9 Gastro-esophageal reflux disease without esophagitis; E78.5 Hyperlipidemia, unspecified; I10 Essential (primary) hypertension; F17.200 Nicotine dependence, unspecified, uncomplicated; Z86.79 Personal history of other diseases of the circulatory system; Z86.73 Personal history of transient ischemic attack (TIA), and cerebral infarction without residual deficits; Z88.1 Allergy status to other antibiotic agents; Z79.51 Long term (current) use of inhaled steroids; Z79.82 Long term (current) use of aspirin; Z79.811 Long term (current) use of aromatase inhibitors; Z79.899 Other long term (current) drug therapy

== ENCOUNTER 2022-10-03 08:32 | Emergency (ER) | payer OTHER, MEDICAID ==
[~2022-10-03] VITALS: Ht 154.9 cm; Wt 68.5 kg
[~2022-10-03 08:32] MED LIST changes: +BENZ200C70 PO; +CEFD300C PO; +IPRA0.00 INH; +MUCI1TAB16 PO; +NEBU1EAC78 MC
[2022-10-03 09:07] LABS: BASO # 0.1 10^3/uL (0.0-0.2); BASO % 0.8 % (0.0-1.0); HEMATOCRIT 34.1 % (36.0-47.0); HEMOGLOBIN 10.6 g/dl (12.0-15.5); LYMPH % 12.8 % (24.0-44.0); MEAN CORPUSCULAR HEMOGLOBIN 31.5 pg (27.0-33.0); MEAN CORPUSCULAR HGB CONC 31.1 g/dl (32.0-36.5); MEAN CORPUSCULAR VOLUME 101.5 fl (80.0-96.0); MONO # 0.6 10^3/uL (0.0-0.8); MONO % 7.1 % (2.0-8.0); NEUTROPHILS # 6.3 10^3/uL (1.5-8.5); NEUTROPHILS % 78.8 % (36.0-66.0); PLATELET COUNT, AUTOMATED 133 10^3/uL (150-450); RED BLOOD COUNT 3.36 10^6/uL (4.00-5.40); WHITE BLOOD COUNT 7.9 10^3/uL (4.0-10.0)
[2022-10-03 09:12] LABS: INR 0.9; PROTHROMBIN TIME 12.3 SECONDS (12.5-14.5)
[2022-10-03 09:19] LABS: CK-MB VALUE MASS < 1.0 NG/ML (<3.6)
[2022-10-03 09:20] LABS: LIPASE 52 U/L (12-53)
[2022-10-03 09:22] LABS: ALBUMIN 3.9 G/DL (3.2-5.2); ALKALINE PHOSPHATASE 105 U/L (46-116); ALT/SGPT 11 U/L (7.0-40); AST/SGOT 14 U/L (<34); BILIRUBIN,DIRECT < 0.1 MG/DL (<0.4); BILIRUBIN,TOTAL 0.2 MG/DL (0.3-1.2); BLOOD UREA NITROGEN 32 MG/DL (9-23); CARBON DIOXIDE LEVEL 34 MMOL/L (20-31); CHLORIDE LEVEL 97 MMOL/L (98-107); GLOMERULAR FILTRATION RATE 7.3 (>45); GLUCOSE, FASTING 104 MG/DL (74-106); SODIUM LEVEL 139 MMOL/L (136-145); TOTAL PROTEIN 7.7 G/DL (5.7-8.2)
[2022-10-03 09:24] LABS: FREE T4 1.01 NG/DL (0.89-1.76); THYROID STIMULATING HORMONE 2.437 uIU/ML (0.55-4.78)
[2022-10-03 09:26] LABS: CPK CREATINE PHOSPHOKINASE < 15 U/L (34-145)
[2022-10-03 09:40] LABS: VENOUS BASE EXCESS 3.9 (-2.0-2.0); VENOUS HCO3 30.9 MEQ/L (23.0-27.0); VENOUS O2 SATURATION 50.5 % (60.0-80.0); VENOUS PARTIAL PRESSURE CO2 57.7 mmHg (38.0-50.0); VENOUS PARTIAL PRESSURE O2 29.7 mmHg (30.0-50.0); VENOUS PH 7.346 UNITS (7.330-7.430); VENOUS STANDARD HCO3 26.9 MEQ/L; VENOUS TOTAL CO2 32.6 MEQ/L (24.0-28.0)
[2022-10-03] MEDS ORDERED: METOPROLOL TARTRATE 100MG TAB PO ONE (10:00)
[2022-10-03] MEDS ORDERED: ISOVUE-370 76% 100ML VIAL As Ordered ONE (10:02)
[2022-10-03 10:34] VITALS: BP 115/60
[2022-10-03 10:36] LABS: CK-MB VALUE MASS < 1.0 NG/ML (<3.6)
[2022-10-03 10:38] LABS: CPK CREATINE PHOSPHOKINASE 15 U/L (34-145); MB/CK RELATIVE INDEX 6.66 (< OR =4)
[2022-10-03 12:30] LABS: CK-MB VALUE MASS < 1.0 NG/ML (<3.6)
[2022-10-03 12:35] LABS: CPK CREATINE PHOSPHOKINASE < 15 U/L (34-145)
[2022-10-03 14:07] VITALS: BP 123/72
== END 2022-10-03 14:22 | disposition home or self-care (01) ==
LOC: EDBD 08:32 → M ED 08:32
DX: R07.9 Chest pain, unspecified (principal); I51.7 Cardiomegaly; R16.1 Splenomegaly, not elsewhere classified; R91.8 Other nonspecific abnormal finding of lung field; N18.6 End stage renal disease; Z99.2 Dependence on renal dialysis; I48.91 Unspecified atrial fibrillation; I50.9 Heart failure, unspecified; I10 Essential (primary) hypertension; D64.9 Anemia, unspecified; I27.20 Pulmonary hypertension, unspecified; J44.9 Chronic obstructive pulmonary disease, unspecified; K74.60 Unspecified cirrhosis of liver; Z85.528 Personal history of other malignant neoplasm of kidney; Z90.5 Acquired absence of kidney; Z87.891 Personal history of nicotine dependence; Z99.81 Dependence on supplemental oxygen; Z79.82 Long term (current) use of aspirin; Z79.899 Other long term (current) drug therapy; Z88.8 Allergy status to other drugs, medicaments and biological substances
CPT/HCPCS: 71045; 71275; 80048; 80076; 82550; 82553; 82803; 83690; 83880; 84439; 84443; 84484; 85025; 85610; 87040; 87486; 87581; 87633; 87798; 93005; 93041; 94760; 99285; Q9967

== ENCOUNTER 2022-11-05 18:25 | Observation (INO) | payer OTHER, MEDICAID ==
[~2022-11-05] VITALS: Ht 154.9 cm; Wt 69.7 kg
[2022-11-05] MEDS ORDERED: ALBUTEROL SULFATE 2.5MG/0.5ML INH NEB SOLN INH ONE ×2 (18:40→19:55)
[2022-11-05] MEDS ORDERED: methylPREDNISolone 125MG 2ML VIAL IV ONE (18:40)
[2022-11-05] MEDS ORDERED: IPRATROPIUM 0.5MG/ALBUTEROL 2.5MG INH SOL UD 3ML (DUONEB) NEB ONE (18:40)
[2022-11-05 19:20] LABS: BASO % 0.6 % (0.0-1.0); HEMATOCRIT 31.5 % (36.0-47.0); HEMOGLOBIN 9.8 g/dl (12.0-15.5); LYMPH # 1.2 10^3/uL (1.5-5.0); LYMPH % 23.1 % (24.0-44.0); MEAN CORPUSCULAR HEMOGLOBIN 31.4 pg (27.0-33.0); MEAN CORPUSCULAR HGB CONC 31.1 g/dl (32.0-36.5); MONO # 0.5 10^3/uL (0.0-0.8); MONO % 9.2 % (2.0-8.0); NEUTROPHILS # 3.6 10^3/uL (1.5-8.5); NEUTROPHILS % 66.7 % (36.0-66.0); PLATELET COUNT, AUTOMATED 107 10^3/uL (150-450); RED BLOOD COUNT 3.12 10^6/uL (4.00-5.40); WHITE BLOOD COUNT 5.3 10^3/uL (4.0-10.0)
[2022-11-05] MEDS ORDERED: HOME MED LIST COMPLETE! XX SCH (19:35)
[2022-11-05 19:41] LABS: CK-MB VALUE MASS < 1.0 NG/ML (<3.6)
[2022-11-05 19:42] LABS: ALBUMIN 3.6 G/DL (3.2-5.2); ALKALINE PHOSPHATASE 104 U/L (46-116); ALT/SGPT 10 U/L (7.0-40); AST/SGOT 9 U/L (<34); BILIRUBIN,DIRECT < 0.1 MG/DL (<0.4); BILIRUBIN,TOTAL < 0.2 MG/DL (0.3-1.2); TOTAL PROTEIN 6.8 G/DL (5.7-8.2)
[2022-11-05 19:45] LABS: THYROID STIMULATING HORMONE 2.107 uIU/ML (0.55-4.78)
[2022-11-05 19:46] LABS: BLOOD UREA NITROGEN 57 MG/DL (9-23); CALCIUM LEVEL 8.8 MG/DL (8.3-10.6); CARBON DIOXIDE LEVEL 33 MMOL/L (20-31); CHLORIDE LEVEL 98 MMOL/L (98-107); CPK CREATINE PHOSPHOKINASE 20 U/L (34-145); GLOMERULAR FILTRATION RATE 3.7 (>45); GLUCOSE, FASTING 174 MG/DL (74-106); SODIUM LEVEL 138 MMOL/L (136-145)
[2022-11-05] MEDS ORDERED: ISOVUE-370 76% 100ML VIAL As Ordered ONE (19:55)
[2022-11-05] MEDS ORDERED: DEXTROSE 50% 50ML SYRINGE IV ONE (19:55)
[2022-11-05] MEDS ORDERED: HumuLIN R (REGULAR) INSULIN (NovoLIN R) **100U/ML** PER UNIT IV ONE (19:55)
[2022-11-05 20:17] LABS: CK-MB VALUE MASS < 1.0 NG/ML (<3.6)
[2022-11-05 20:18] LABS: CPK CREATINE PHOSPHOKINASE 16 U/L (34-145); MB/CK RELATIVE INDEX 6.25 (< OR =4)
[2022-11-05] MEDS ORDERED: INSULIN LISPRO (NovoLOG) PER UNIT SC SCH (21:00)
[2022-11-05] MEDS ORDERED: ACETAMINOPHEN TAB 650MG DOSE (2X325MG) PO PRN (22:25)
[2022-11-05] MEDS ORDERED: MIRALAX *UNIT DOSE* 17GM PACKET PO PRN (22:25)
[2022-11-05] MEDS ORDERED: diazePAM 2 MG TAB PO PRN (22:25)
[2022-11-05] MEDS ORDERED: ALBUTEROL 90 MCG/ACT 8GM HFA INHALER INH PRN (22:25)
[2022-11-05] MEDS ORDERED: CYCLOBENZAPRINE 5MG TABLET PO PRN (22:25)
[2022-11-05] MEDS ORDERED: ONDANSETRON 4MG TAB PO PRN (22:25)
[2022-11-05] MEDS ORDERED: DEXTROSE 50% 50ML SYRINGE IV PRN (22:25)
[2022-11-05] MEDS ORDERED: GLUCAGON INJ 1MG VIAL SC PRN (22:25)
[2022-11-05] MEDS ORDERED: GLUCOSE 4GM CHEW TABLET PO PRN (22:25)
[2022-11-05 23:51] VITALS: BP 138/58
[2022-11-05 23:58] LABS: POTASSIUM SERUM 5.3 MMOL/L (3.5-5.1)
[2022-11-06] MEDS ORDERED: SODIUM CHLORIDE 0.9% 1000ML IV PRN (00:20)
[2022-11-06] MEDS ORDERED: HEPARIN 1,000UNITS/ML 10ML VIAL (FOR RADIOLOGY & DIALYSIS ONLY) IV PRN (00:20)
[2022-11-06] MEDS ORDERED: HEPARIN 1,000UNITS/ML 10ML VIAL (FOR RADIOLOGY & DIALYSIS ONLY) XX SCH (00:20)
[2022-11-06] MEDS ORDERED: LIDOCAINE 1% SDV 5ML VIAL SC PRN (00:20)
[2022-11-06] MEDS ORDERED: PATIROMER SORBITEX CALCIUM 8.4 GM POWDER PACKET (VELTASSA) PO ONE (03:00)
[2022-11-06 03:37] VITALS: BP 120/52
[2022-11-06] MEDS ORDERED: LEVOTHYROXINE 50MCG TABLET (0.05MG) PO SCH (06:00)
[2022-11-06] MEDS: INSULIN LISPRO (NovoLOG) PER UNIT SC SCH ×3 (06:45→18:21)
[2022-11-06] MEDS: MIDODRINE 5 MG TAB PO SCH ×3 (06:45→18:21)
[2022-11-06 07:57] VITALS: BP 122/94
[2022-11-06] MEDS: SUCROFERRIC OXYHYDROXIDE 500MG CHEW TAB (VELPHORO) PO SCH ×3 (08:13→18:21)
[2022-11-06] MEDS ORDERED: ASPIRIN ENTERIC 325MG TAB PO SCH (09:00)
[2022-11-06] MEDS ORDERED: OMEPRAZOLE 20MG CAP PO SCH (09:00)
[2022-11-06] MEDS ORDERED: OYSTER SHELL CALCIUM 500 MG TAB PO SCH (09:00)
[2022-11-06] MEDS ORDERED: METOPROLOL TARTRATE 100MG TAB PO SCH (09:00)
[2022-11-06] MEDS ORDERED: LORazepam 1 MG TAB PO ONE (09:05)
[2022-11-06 17:14] VITALS: BP 114/63
[2022-11-06 17:22] VITALS: BP 118/64
[2022-11-06 17:23] VITALS: BP_SYST 104; BP_SYST 117; BP_DIAS 62; BP_DIAS 72
[2022-11-06] MEDS ORDERED: ROSUVASTATIN 10 MG TAB (CRESTOR) PO SCH (21:00)
[2022-11-06] MEDS ORDERED: traZODone 100 MG TAB PO SCH (21:00)
== END 2022-11-06 18:48 | disposition home or self-care (01) ==
LOC: M ED 18:25 → M ED INP 18:26 → ENRESERV 22:57 → M PCU 23:30
PROVIDERS: ADMIT Internal Medicine; ATTEND Internal Medicine
DX: R07.89 Other chest pain (principal); N18.6 End stage renal disease; E87.8 Other disorders of electrolyte and fluid balance, not elsewhere classified; Z91.158 Patient's noncompliance with renal dialysis for other reason; R26.0 Ataxic gait; Z79.82 Long term (current) use of aspirin; Z79.899 Other long term (current) drug therapy; Z88.8 Allergy status to other drugs, medicaments and biological substances
CPT/HCPCS: 36415; 70551; 71045; 71275; 80048; 80076; 82550; 82553; 83880; 84132; 84436; 84443; 84484; 85025; 87040; 87486; 87581; 87633; 87798; 93005; 93041; 94640; 94760; 96374; 96375; 97161; 99285; G0257; G0378; J1815; J2930; Q9967

== ENCOUNTER → 2022-12-03 | Outpatient (CLI) | payer OTHER, MEDICAID ==
[2022-12-03 18:18] LABS: CALCIUM LEVEL 9.3 MG/DL (8.3-10.6); CREATININE FOR GFR 6.58 MG/DL (0.55-1.30); GLOMERULAR FILTRATION RATE 6.7 (>45); POTASSIUM SERUM 4.3 MMOL/L (3.5-5.1)
== END ==
LOC: M PLALAB 15:51
PROVIDERS: ATTEND Urology
DX: C64.2 Malignant neoplasm of left kidney, except renal pelvis (principal); E03.9 Hypothyroidism, unspecified; E78.2 Mixed hyperlipidemia; K75.81 Nonalcoholic steatohepatitis (NASH); E11.22 Type 2 diabetes mellitus with diabetic chronic kidney disease; Z90.5 Acquired absence of kidney; Z88.1 Allergy status to other antibiotic agents; Z87.891 Personal history of nicotine dependence
CPT/HCPCS: 36415; 80048; 80061; 82172; 83010; 83036; 83883; 84439; 84443; G0463

== ENCOUNTER → 2022-12-03 | Outpatient (CLI) | payer OTHER, MEDICAID ==
[2022-12-03 18:13] LABS: CHOLESTEROL RISK RATIO 3.81 (<5); HDL CHOLESTEROL 39.8 MG/DL (>40); LDL CHOLESTEROL 63.2 MG/DL (<100); NON-HDL-C 112.2 MG/DL
[2022-12-03 18:14] LABS: FREE T4 0.97 NG/DL (0.89-1.76)
[2022-12-03 18:15] LABS: THYROID STIMULATING HORMONE 1.31 uIU/ML (0.55-4.78)
== END ==
LOC: M PLALAB 15:54
PROVIDERS: ATTEND Family Medicine
DX: E03.9 Hypothyroidism, unspecified (principal); E78.2 Mixed hyperlipidemia; K75.81 Nonalcoholic steatohepatitis (NASH); E11.22 Type 2 diabetes mellitus with diabetic chronic kidney disease

== ENCOUNTER → 2022-12-17 | Outpatient (CLI) | payer OTHER, MEDICAID ==
[~2022-12-17] MED LIST changes: +ISOVUE-370 76% 100ML VIAL As Ordered ONE
== END ==
LOC: M RAD 13:06
PROVIDERS: ATTEND Urology
DX: C64.2 Malignant neoplasm of left kidney, except renal pelvis (principal); Z90.5 Acquired absence of kidney; K57.90 Diverticulosis of intestine, part unspecified, without perforation or abscess without bleeding
CPT/HCPCS: 74160; Q9967

== ENCOUNTER 2023-01-10 09:35 | Inpatient (IN) | payer OTHER, MEDICAID ==
[~2023-01-10] VITALS: Ht 154.9 cm; Wt 72.6 kg
[~2023-01-10 09:35] MED LIST changes: -ISOVUE-370 76% 100ML VIAL As Ordered ONE
[2023-01-10] MEDS ORDERED: BEVE1AER INH (10:01)
[2023-01-10] MEDS ORDERED: NS 500 ML IV ONE (10:35)
[2023-01-10] MEDS ORDERED: ACETAMINOPHEN 1000MG 100ML IV BAG IV ONE (11:10)
[2023-01-10 11:25] LABS: BASO % 0.5 % (0.0-1.0); EOS % 0.1 % (0.0-3.0); HEMOGLOBIN 11.2 g/dl (12.0-15.5); LYMPH # 0.8 10^3/uL (1.5-5.0); MEAN CORPUSCULAR HEMOGLOBIN 32.6 pg (27.0-33.0); MEAN CORPUSCULAR VOLUME 101.7 fl (80.0-96.0); MONO # 0.5 10^3/uL (0.0-0.8); MONO % 6.5 % (2.0-8.0); NEUTROPHILS # 6.1 10^3/uL (1.5-8.5); NEUTROPHILS % 81.4 % (36.0-66.0); PLATELET COUNT, AUTOMATED 109 10^3/uL (150-450); RED BLOOD COUNT 3.44 10^6/uL (4.00-5.40); WHITE BLOOD COUNT 7.5 10^3/uL (4.0-10.0)
[2023-01-10 11:37] LABS: INR 0.81; PARTIAL THROMBOPLASTIN TIME 23.2 SECONDS (24.8-34.2); PROTHROMBIN TIME 11.4 SECONDS (12.5-14.5)
[2023-01-10 11:54] LABS: AMYLASE 71 U/L (30-118)
[2023-01-10 11:56] LABS: ALBUMIN 4.1 G/DL (3.2-5.2); ALKALINE PHOSPHATASE 119 U/L (46-116); ALT/SGPT 16 U/L (7.0-40); AST/SGOT 45 U/L (<34); BILIRUBIN,DIRECT < 0.1 MG/DL (<0.4); BILIRUBIN,TOTAL 0.2 MG/DL (0.3-1.2); LIPASE 38 U/L (12-53); RSV AMPLIFICATION NEGATIVE (NEGATIVE); TOTAL PROTEIN 7.6 G/DL (5.7-8.2)
[2023-01-10] MEDS ORDERED: FLEET ENEMA PR STA (13:07)
[2023-01-10] MEDS ORDERED: GLYCERIN ADULT SUPP PR ONE (13:10)
[2023-01-10] MEDS ORDERED: PANTOPRAZOLE 40MG VIAL IV ONE (14:05)
[2023-01-10] MEDS ORDERED: MIDO5TA PO (14:18)
[2023-01-10] MEDS ORDERED: IPRA0.00 INH (14:19)
[2023-01-10] MEDS ORDERED: HOME MED LIST COMPLETE! XX SCH (14:20)
[2023-01-10] MEDS ORDERED: CEFEPIME HCL 2 GM in D5W MINI-BAG PLUS 50 ML IV SCH (14:25)
[2023-01-10] MEDS ORDERED: ONDANSETRON 4MG TAB PO PRN (14:30)
[2023-01-10] MEDS ORDERED: diazePAM 2 MG TAB PO PRN (14:30)
[2023-01-10] MEDS ORDERED: NORCO, ANEXSIA 5/325MG TABLET (HYDROcodone/ACETAMINOPHEN) PO PRN (14:30)
[2023-01-10] MEDS ORDERED: IPRATROPIUM 0.5MG/ALBUTEROL 2.5MG INH SOL UD 3ML (DUONEB) INH PRN (14:30)
[2023-01-10] MEDS ORDERED: CYCLOBENZAPRINE 5MG TABLET PO PRN (14:30)
[2023-01-10] MEDS ORDERED: ALBUTEROL 90 MCG/ACT 8GM HFA INHALER INH PRN (14:30)
[2023-01-10] MEDS ORDERED: MIRALAX *UNIT DOSE* 17GM PACKET PO PRN (14:30)
[2023-01-10] MEDS ORDERED: metroNIDAZOLE 500 MG in IV 1 EA IV SCH (16:00)
[2023-01-10 17:04] VITALS: BP 132/68; TEMP 97.5; O2SAT 98
[2023-01-10] MEDS: MIDODRINE 5 MG TAB PO SCH (17:24)
[2023-01-10] MEDS: ASPIRIN ENTERIC 325MG TAB PO SCH (17:24)
[2023-01-10] MEDS: SUCROFERRIC OXYHYDROXIDE 500MG CHEW TAB (VELPHORO) PO SCH (17:24)
[2023-01-10] MEDS: OYSTER SHELL CALCIUM 500 MG TAB PO SCH (17:24)
[2023-01-10] MEDS: FORMOTEROL FUMARATE 20 MCG/2 ML INHALATION SOLUTION (PERFOROMIST) INH SCH (19:43)
[2023-01-10 19:52] VITALS: BP 142/88; TEMP 97.7; O2SAT 95
[2023-01-10] MEDS: METOPROLOL TARTRATE 100MG TAB PO SCH (19:54)
[2023-01-10] MEDS ORDERED: traZODone 100 MG TAB PO SCH (21:00)
[2023-01-10] MEDS ORDERED: ROSUVASTATIN 10 MG TAB (CRESTOR) PO SCH (21:00)
[2023-01-11 05:00] VITALS: BP 128/82; TEMP 97.5; O2SAT 100
[2023-01-11 06:01] LABS: HEMOGLOBIN 9.6 g/dl (12.0-15.5); MEAN CORPUSCULAR HEMOGLOBIN 31.9 pg (27.0-33.0); PLATELET COUNT, AUTOMATED 101 10^3/uL (150-450); RED BLOOD COUNT 3.01 10^6/uL (4.00-5.40); WHITE BLOOD COUNT 7.5 10^3/uL (4.0-10.0)
[2023-01-11 06:25] LABS: ALBUMIN 3.6 G/DL (3.2-5.2); BILIRUBIN,TOTAL 0.2 MG/DL (0.3-1.2); CALCIUM LEVEL 9.1 MG/DL (8.3-10.6); CREATININE FOR GFR 6.02 MG/DL (0.55-1.30); GLOMERULAR FILTRATION RATE 7.4 (>45); POTASSIUM SERUM 4.8 MMOL/L (3.5-5.1); TOTAL PROTEIN 6.6 G/DL (5.7-8.2)
[2023-01-11] MEDS: FORMOTEROL FUMARATE 20 MCG/2 ML INHALATION SOLUTION (PERFOROMIST) INH SCH (07:25)
[2023-01-11] MEDS: MIDODRINE 5 MG TAB PO SCH ×3 (08:00→16:00)
[2023-01-11] MEDS: OYSTER SHELL CALCIUM 500 MG TAB PO SCH (08:08)
[2023-01-11 08:09] VITALS: BP 122/76
[2023-01-11] MEDS: METOPROLOL TARTRATE 100MG TAB PO SCH (08:09)
[2023-01-11] MEDS: SUCROFERRIC OXYHYDROXIDE 500MG CHEW TAB (VELPHORO) PO SCH ×3 (08:09→16:37)
[2023-01-11] MEDS: ASPIRIN ENTERIC 325MG TAB PO SCH (08:09)
[2023-01-11] MEDS ORDERED: ACETAMINOPHEN 500 MG TAB PO SCH (09:00)
[2023-01-11] MEDS ORDERED: OMEPRAZOLE 20MG CAP PO SCH (09:00)
[2023-01-11] MEDS ORDERED: LIDOCAINE 1% SDV 5ML VIAL SC PRN (10:20)
[2023-01-11] MEDS ORDERED: HEPARIN 1,000UNITS/ML 10ML VIAL (FOR RADIOLOGY & DIALYSIS ONLY) XX SCH (10:20)
[2023-01-11] MEDS ORDERED: HEPARIN 1,000UNITS/ML 10ML VIAL (FOR RADIOLOGY & DIALYSIS ONLY) IV PRN (10:20)
[2023-01-11] MEDS ORDERED: SODIUM CHLORIDE 0.9% 1000ML IV PRN (10:20)
[2023-01-11 15:30] VITALS: BP 121/73; TEMP 97.9; O2SAT 94
== END 2023-01-11 18:05 | disposition home or self-care (01) | DRG 391 ==
LOC: M ED 09:35 → M ED INP 14:22 → M MSPAV 17:05
PROVIDERS: ADMIT Internal Medicine; ATTEND Internal Medicine
PROC: 5A1D70Z Performance of Urinary Filtration, Intermittent, Less than 6 Hours Per Day (ICD-10-PCS; principal; 2023-01-11)
DX: K59.09 Other constipation (principal); N18.6 End stage renal disease; K92.2 Gastrointestinal hemorrhage, unspecified; E11.22 Type 2 diabetes mellitus with diabetic chronic kidney disease; J44.9 Chronic obstructive pulmonary disease, unspecified; Z99.81 Dependence on supplemental oxygen; Z90.5 Acquired absence of kidney; Z85.528 Personal history of other malignant neoplasm of kidney; D64.9 Anemia, unspecified; I50.9 Heart failure, unspecified; E03.9 Hypothyroidism, unspecified; E78.00 Pure hypercholesterolemia, unspecified; I95.9 Hypotension, unspecified; Z87.891 Personal history of nicotine dependence; Z79.82 Long term (current) use of aspirin; Z79.899 Other long term (current) drug therapy; Z88.1 Allergy status to other antibiotic agents; Z88.8 Allergy status to other drugs, medicaments and biological substances; Z20.822 Contact with and (suspected) exposure to COVID-19

== ENCOUNTER → 2023-04-20 | Outpatient (CLI) | payer OTHER, MEDICAID ==
[~2023-04-20] MED LIST changes: +BEVE1AER INH; +MECL-209 PO; -MECL1TAB31 PO
== END ==
LOC: M RAD 17:26
PROVIDERS: ATTEND Student in an Organized Health Care Education/Training Program
DX: J06.9 Acute upper respiratory infection, unspecified (principal); R09.89 Other specified symptoms and signs involving the circulatory and respiratory systems; I48.91 Unspecified atrial fibrillation
CPT/HCPCS: 71046; 87428; G0463

== ENCOUNTER → 2023-04-29 | Outpatient (CLI) | payer OTHER, MEDICAID | LOC: M WHC 12:11 | PROVIDERS: ATTEND Student in an Organized Health Care Education/Training Program | DX: Z12.31 Encounter for screening mammogram for malignant neoplasm of breast (principal) ==

== ENCOUNTER 2023-05-25 16:19 | Emergency (ER) | payer OTHER, MEDICAID ==
[~2023-05-25] VITALS: Ht 154.9 cm; Wt 74.0 kg
[2023-05-25 16:33] VITALS: BP 110/60
[2023-05-25] MEDS ORDERED: PERCOCET 5MG/325MG TAB PO ONE (17:40)
[2023-05-25 20:06] VITALS: TEMP 98.1; O2SAT 99
== END 2023-05-25 20:09 | disposition home or self-care (01) ==
LOC: M ED 16:19
DX: S40.012A Contusion of left shoulder, initial encounter (principal); S70.02XA Contusion of left hip, initial encounter; S80.02XA Contusion of left knee, initial encounter; W01.0XXA Fall on same level from slipping, tripping and stumbling without subsequent striking against object, initial encounter; E11.9 Type 2 diabetes mellitus without complications; Y92.009 Unspecified place in unspecified non-institutional (private) residence as the place of occurrence of the external cause; Y93.89 Activity, other specified; Y99.9 Unspecified external cause status; Z88.1 Allergy status to other antibiotic agents; Z88.8 Allergy status to other drugs, medicaments and biological substances; Z79.52 Long term (current) use of systemic steroids; Z79.83 Long term (current) use of bisphosphonates; Z79.899 Other long term (current) drug therapy

== ENCOUNTER 2023-07-06 08:43 | Observation (INO) | payer OTHER, MEDICAID ==
[~2023-07-06] VITALS: Ht 154.9 cm; Wt 75.8 kg
[2023-07-06] MEDS: METOPROLOL TARTRATE 100MG TAB PO SCH ×2 (09:00→20:37)
[2023-07-06 09:32] LABS: VENOUS BASE EXCESS 2.3 (-2.0-2.0); VENOUS HCO3 30.3 MMOL/L (23.0-27.0); VENOUS O2 SATURATION 41.5 % (60.0-80.0); VENOUS PARTIAL PRESSURE CO2 65.1 mmHg (38.0-50.0); VENOUS PARTIAL PRESSURE O2 25.3 mmHg (30.0-50.0); VENOUS PH 7.286 UNITS (7.330-7.430); VENOUS STANDARD HCO3 25.3 MMOL/L; VENOUS TOTAL CO2 32.3 MMOL/L (24.0-28.0)
[2023-07-06 09:40] LABS: BASO # 0.1 10^3/uL (0.0-0.2); BASO % 0.7 % (0.0-1.0); HEMATOCRIT 35.2 % (36.0-47.0); HEMOGLOBIN 10.8 g/dl (12.0-15.5); LYMPH # 1.1 10^3/uL (1.5-5.0); LYMPH % 15.2 % (24.0-44.0); MEAN CORPUSCULAR HEMOGLOBIN 32.7 pg (27.0-33.0); MEAN CORPUSCULAR HGB CONC 30.7 g/dl (32.0-36.5); MEAN CORPUSCULAR VOLUME 106.7 fl (80.0-96.0); MONO # 0.5 10^3/uL (0.0-0.8); MONO % 7.4 % (2.0-8.0); NEUTROPHILS # 5.3 10^3/uL (1.5-8.5); NEUTROPHILS % 76.4 % (36.0-66.0); PLATELET COUNT, AUTOMATED 117 10^3/uL (150-450); WHITE BLOOD COUNT 6.9 10^3/uL (4.0-10.0)
[2023-07-06 10:08] LABS: ALBUMIN 3.9 G/DL (3.2-5.2); ALKALINE PHOSPHATASE 191 U/L (46-116); ALT/SGPT 10 U/L (7.0-40); AST/SGOT 11 U/L (<34); BILIRUBIN,DIRECT < 0.1 MG/DL (<0.4); BILIRUBIN,TOTAL 0.2 MG/DL (0.3-1.2); BLOOD UREA NITROGEN 33 MG/DL (9-23); CALCIUM LEVEL 9.2 MG/DL (8.3-10.6); CARBON DIOXIDE LEVEL 34 MMOL/L (20-31); CHLORIDE LEVEL 95 MMOL/L (98-107); CK-MB VALUE MASS < 1.0 NG/ML (<3.6); CPK CREATINE PHOSPHOKINASE 15 U/L (34-145); CREATININE FOR GFR 7.15 MG/DL (0.55-1.30); GLOMERULAR FILTRATION RATE 6.1 (>45); GLUCOSE, FASTING 95 MG/DL (74-106); INR 1.01; MB/CK RELATIVE INDEX 6.66 (< OR =4); POTASSIUM SERUM 5.5 MMOL/L (3.5-5.1); SODIUM LEVEL 136 MMOL/L (136-145)
[2023-07-06 10:09] LABS: THYROID STIMULATING HORMONE 1.878 uIU/ML (0.55-4.78); THYROXINE (T4) 10.7 UG/DL (4.5-10.9)
[2023-07-06] MEDS ORDERED: HEPARIN 1,000UNITS/ML 10ML VIAL (FOR RADIOLOGY & DIALYSIS ONLY) XX SCH (11:15)
[2023-07-06] MEDS ORDERED: LIDOCAINE 1% SDV 5ML VIAL SC PRN (11:15)
[2023-07-06] MEDS ORDERED: HEPARIN 1,000UNITS/ML 10ML VIAL (FOR RADIOLOGY & DIALYSIS ONLY) IV PRN (11:15)
[2023-07-06] MEDS ORDERED: SODIUM CHLORIDE 0.9% 1000ML IV PRN (11:15)
[2023-07-06] MEDS ORDERED: IPRATROPIUM 0.5MG/ALBUTEROL 2.5MG INH SOL UD 3ML (DUONEB) NEB ONE (11:50)
[2023-07-06] MEDS ORDERED: ACETAMINOPHEN TAB 650MG DOSE (2X325MG) PO PRN (11:50)
[2023-07-06] MEDS ORDERED: MED REC IN PROGRESS XX SCH (12:30)
[2023-07-06] MEDS ORDERED: HOME MED LIST COMPLETE! XX SCH (12:55)
[2023-07-06] MEDS ORDERED: ALBUTEROL 90 MCG/ACT 8GM HFA INHALER INH PRN (13:10)
[2023-07-06] MEDS ORDERED: MIRALAX *UNIT DOSE* 17GM PACKET PO PRN (13:10)
[2023-07-06] MEDS ORDERED: ONDANSETRON 4MG TAB PO PRN (13:10)
[2023-07-06] MEDS ORDERED: CYCLOBENZAPRINE 5MG TABLET PO PRN (13:10)
[2023-07-06] MEDS ORDERED: IPRATROPIUM 0.5MG/ALBUTEROL 2.5MG INH SOL UD 3ML (DUONEB) INH PRN (13:10)
[2023-07-06] MEDS ORDERED: diazePAM 2 MG TAB PO PRN (13:10)
[2023-07-06] MEDS ORDERED: DEXTROSE 50% 50ML SYRINGE IV PRN (15:30)
[2023-07-06] MEDS ORDERED: GLUCAGON INJ 1MG VIAL SC PRN (15:30)
[2023-07-06] MEDS ORDERED: GLUCOSE 4GM CHEW TABLET PO PRN (15:30)
[2023-07-06 16:55] VITALS: BP 130/75; TEMP 97.8; O2SAT 98
[2023-07-06] MEDS: INSULIN LISPRO (NovoLOG) PER UNIT SC SCH (17:30)
[2023-07-06] MEDS: ASPIRIN ENTERIC 325MG TAB PO SCH (17:53)
[2023-07-06] MEDS: OMEPRAZOLE 20MG CAP PO SCH (17:54)
[2023-07-06] MEDS: MIDODRINE 5 MG TAB PO SCH (17:55)
[2023-07-06] MEDS: SUCROFERRIC OXYHYDROXIDE 500MG CHEW TAB (VELPHORO) PO SCH (18:04)
[2023-07-06 19:51] VITALS: BP 108/68; TEMP 97.3; O2SAT 96
[2023-07-06] MEDS: HEPARIN SOD (PORCINE) 5000UNITS/ML 1ML VIAL/SYRINGE SC SCH (20:38)
[2023-07-06] MEDS ORDERED: ROSUVASTATIN 10 MG TAB (CRESTOR) PO SCH (21:00)
[2023-07-06] MEDS ORDERED: INSULIN LISPRO (NovoLOG) PER UNIT SC SCH (21:00)
[2023-07-06] MEDS ORDERED: traZODone 100 MG TAB PO SCH (21:00)
[2023-07-07 05:26] VITALS: BP 103/65; TEMP 97.3; O2SAT 91
[2023-07-07] MEDS: SUCROFERRIC OXYHYDROXIDE 500MG CHEW TAB (VELPHORO) PO SCH ×2 (06:19→12:52)
[2023-07-07] MEDS: ASPIRIN ENTERIC 325MG TAB PO SCH (06:20)
[2023-07-07 06:21] VITALS: BP 103/65
[2023-07-07] MEDS: METOPROLOL TARTRATE 100MG TAB PO SCH (06:21)
[2023-07-07] MEDS: OMEPRAZOLE 20MG CAP PO SCH (06:21)
[2023-07-07] MEDS: MIDODRINE 5 MG TAB PO SCH ×2 (06:21→12:52)
[2023-07-07] MEDS: HEPARIN SOD (PORCINE) 5000UNITS/ML 1ML VIAL/SYRINGE SC SCH (06:21)
[2023-07-07] MEDS ORDERED: LIDOCAINE 1% SDV 5ML VIAL SC PRN (06:45)
[2023-07-07] MEDS ORDERED: HEPARIN 1,000UNITS/ML 10ML VIAL (FOR RADIOLOGY & DIALYSIS ONLY) XX SCH (06:45)
[2023-07-07] MEDS ORDERED: HEPARIN 1,000UNITS/ML 10ML VIAL (FOR RADIOLOGY & DIALYSIS ONLY) IV PRN (06:45)
[2023-07-07] MEDS ORDERED: SODIUM CHLORIDE 0.9% 1000ML IV PRN (06:45)
[2023-07-07 06:52] LABS: CALCIUM LEVEL 9.1 MG/DL (8.3-10.6); CREATININE FOR GFR 4.87 MG/DL (0.55-1.30); GLOMERULAR FILTRATION RATE 9.5 (>45); MAGNESIUM LEVEL 1.9 MG/DL (1.8-2.4)
[2023-07-07] MEDS: INSULIN LISPRO (NovoLOG) PER UNIT SC SCH ×2 (07:30→12:00)
[2023-07-07] MEDS ORDERED: DIGOXIN 0.125 MG TAB PO STA (09:20)
== END 2023-07-07 16:00 | disposition home or self-care (01) ==
LOC: EDBD 08:43 → M ED 08:43 → M ED INP 08:44 → INTOOBSV 11:48 → UNDOADMOB 11:48 → M ED INP 11:48 → M MS5PR 16:50
PROVIDERS: ADMIT Student in an Organized Health Care Education/Training Program; ATTEND General Practice
DX: E87.79 Other fluid overload (principal); N18.6 End stage renal disease; N25.81 Secondary hyperparathyroidism of renal origin; E78.5 Hyperlipidemia, unspecified; D63.1 Anemia in chronic kidney disease; I11.0 Hypertensive heart disease with heart failure; I50.32 Chronic diastolic (congestive) heart failure; J44.9 Chronic obstructive pulmonary disease, unspecified; I48.91 Unspecified atrial fibrillation; G47.33 Obstructive sleep apnea (adult) (pediatric); E03.9 Hypothyroidism, unspecified; D69.59 Other secondary thrombocytopenia; K74.60 Unspecified cirrhosis of liver; F41.9 Anxiety disorder, unspecified; R26.89 Other abnormalities of gait and mobility; Z79.82 Long term (current) use of aspirin; Z79.899 Other long term (current) drug therapy; Z88.5 Allergy status to narcotic agent; Z88.8 Allergy status to other drugs, medicaments and biological substances
CPT/HCPCS: 36415; 71045; 80048; 80076; 82550; 82553; 82803; 83605; 83735; 84436; 84443; 84484; 85025; 85610; 87040; 87486; 87581; 87633; 87798; 93005; 93041; 94640; 94760; 96372; 99285; G0257; G0378

== ENCOUNTER 2023-08-05 10:51 | Observation (INO) | payer OTHER, MEDICAID ==
[~2023-08-05] VITALS: Ht 154.9 cm; Wt 73.2 kg
[2023-08-05 12:44] LABS: BASO % 0.7 % (0.0-1.0); HEMATOCRIT 33.7 % (36.0-47.0); HEMOGLOBIN 10.4 g/dl (12.0-15.5); LYMPH # 0.7 10^3/uL (1.5-5.0); LYMPH % 12.4 % (24.0-44.0); MEAN CORPUSCULAR HEMOGLOBIN 32.5 pg (27.0-33.0); MEAN CORPUSCULAR HGB CONC 30.9 g/dl (32.0-36.5); MEAN CORPUSCULAR VOLUME 105.3 fl (80.0-96.0); MONO # 0.2 10^3/uL (0.0-0.8); MONO % 4.1 % (2.0-8.0); NEUTROPHILS # 4.9 10^3/uL (1.5-8.5); NEUTROPHILS % 82.5 % (36.0-66.0); WHITE BLOOD COUNT 5.9 10^3/uL (4.0-10.0)
[2023-08-05 12:56] LABS: PLATELET COUNT, AUTOMATED 95 10^3/uL (150-450)
[2023-08-05 13:07] LABS: ALBUMIN 3.7 G/DL (3.2-5.2); BILIRUBIN,DIRECT 0.1 MG/DL (<0.4); BILIRUBIN,TOTAL 0.3 MG/DL (0.3-1.2); CALCIUM LEVEL 8.6 MG/DL (8.3-10.6); CREATININE FOR GFR 6.05 MG/DL (0.55-1.30); GLOMERULAR FILTRATION RATE 7.4 (>45); POTASSIUM SERUM 5.2 MMOL/L (3.5-5.1); TOTAL PROTEIN 7.1 G/DL (5.7-8.2)
[2023-08-05 13:08] LABS: THYROXINE (T4) 10.9 UG/DL (4.5-10.9)
[2023-08-05 13:09] LABS: THYROID STIMULATING HORMONE 1.162 uIU/ML (0.55-4.78)
[2023-08-05] MEDS ORDERED: ACETAMINOPHEN 500 MG TAB PO ONE (14:15)
[2023-08-05] MEDS ORDERED: HEPARIN SOD (PORCINE) 5000UNITS/ML 1ML VIAL/SYRINGE SC SCH (18:20)
[2023-08-05] MEDS ORDERED: HOME MED LIST COMPLETE! XX SCH (19:40)
[2023-08-05] MEDS ORDERED: ONDANSETRON 4MG TAB PO PRN (19:40)
[2023-08-05] MEDS ORDERED: MIRALAX *UNIT DOSE* 17GM PACKET PO PRN (19:40)
[2023-08-05] MEDS ORDERED: IPRATROPIUM 0.5MG/ALBUTEROL 2.5MG INH SOL UD 3ML (DUONEB) INH PRN (19:40)
[2023-08-05] MEDS ORDERED: diazePAM 2 MG TAB PO PRN (19:40)
[2023-08-05] MEDS ORDERED: ALBUTEROL 90 MCG/ACT 8GM HFA INHALER INH PRN (19:40)
[2023-08-05] MEDS ORDERED: ACETAMINOPHEN TAB 650MG DOSE (2X325MG) PO PRN (19:40)
[2023-08-05] MEDS ORDERED: CYCLOBENZAPRINE 5MG TABLET PO PRN (19:40)
[2023-08-05] MEDS ORDERED: traZODone 100 MG TAB PO SCH (21:00)
[2023-08-05] MEDS ORDERED: ROSUVASTATIN 10 MG TAB (CRESTOR) PO SCH (21:00)
[2023-08-05 21:14] VITALS: BP 143/69; TEMP 97.8; O2SAT 98
[2023-08-05] MEDS: METOPROLOL TARTRATE 100MG TAB PO SCH (21:54)
[2023-08-05 23:33] VITALS: BP 116/73; TEMP 97.9; O2SAT 94
[2023-08-06] VITALS (8 sets, daily range): BP systolic 105–130; BP diastolic 63–75; TEMP 96.8–97.8; O2SAT 86–100
[2023-08-06] MEDS ORDERED: HEPARIN 1,000UNITS/ML 10ML VIAL (FOR RADIOLOGY & DIALYSIS ONLY) XX SCH (06:00)
[2023-08-06] MEDS ORDERED: LIDOCAINE 1% SDV 5ML VIAL SC PRN (06:00)
[2023-08-06] MEDS ORDERED: SODIUM CHLORIDE 0.9% 1000ML IV PRN (06:00)
[2023-08-06] MEDS: METOPROLOL TARTRATE 100MG TAB PO SCH (08:27)
[2023-08-06] MEDS: SUCROFERRIC OXYHYDROXIDE 500MG CHEW TAB (VELPHORO) PO SCH ×3 (08:33→17:45)
[2023-08-06] MEDS: MIDODRINE 5 MG TAB PO SCH ×3 (08:34→17:45)
[2023-08-06] MEDS ORDERED: OMEPRAZOLE 20MG CAP PO SCH (09:00)
[2023-08-06] MEDS ORDERED: ASPIRIN ENTERIC 325MG TAB PO SCH (09:00)
== END 2023-08-06 19:09 | disposition home or self-care (01) ==
LOC: M ED 10:51 → EDBD 10:51 → M ED INP 10:52 → M PCU 21:12
PROVIDERS: ADMIT Internal Medicine; ATTEND Internal Medicine
DX: R06.02 Shortness of breath (principal); J44.9 Chronic obstructive pulmonary disease, unspecified; Z99.81 Dependence on supplemental oxygen; N18.6 End stage renal disease; E87.5 Hyperkalemia; I50.33 Acute on chronic diastolic (congestive) heart failure; I45.81 Long QT syndrome; G47.33 Obstructive sleep apnea (adult) (pediatric); I12.0 Hypertensive chronic kidney disease with stage 5 chronic kidney disease or end stage renal disease; E78.5 Hyperlipidemia, unspecified; E11.9 Type 2 diabetes mellitus without complications; D63.1 Anemia in chronic kidney disease; K21.9 Gastro-esophageal reflux disease without esophagitis; F41.9 Anxiety disorder, unspecified; F32.A Depression, unspecified; G47.00 Insomnia, unspecified; Z79.82 Long term (current) use of aspirin; Z79.51 Long term (current) use of inhaled steroids; Z88.8 Allergy status to other drugs, medicaments and biological substances; Z79.899 Other long term (current) drug therapy
CPT/HCPCS: 71045; 80048; 80076; 83880; 84436; 84443; 85025; 85049; 85055; 87486; 87581; 87633; 87798; 90935; 93005; 93041; 94760; 99285; G0378

== ENCOUNTER 2023-08-11 02:34 | Emergency (ER) | payer OTHER, MEDICAID ==
[~2023-08-11] VITALS: Ht 154.9 cm; Wt 69.5 kg
[2023-08-11 02:42] VITALS: BP 139/75; TEMP 97; O2SAT 100
== END 2023-08-11 05:26 | disposition left against medical advice (07) ==
LOC: EDBD 02:34 → M ED 02:34
DX: Z53.21 Procedure and treatment not carried out due to patient leaving prior to being seen by health care provider (principal)

== ENCOUNTER 2023-09-25 18:30 | Inpatient (IN) | payer OTHER, MEDICAID ==
[~2023-09-25] VITALS: Ht 154.9 cm; Wt 78.2 kg
[2023-09-25 19:10] LABS: BASO % 0.5 % (0.0-1.0); HEMATOCRIT 35.9 % (36.0-47.0); HEMOGLOBIN 11.3 g/dl (12.0-15.5); LYMPH # 1.4 10^3/uL (1.5-5.0); LYMPH % 22.5 % (24.0-44.0); MEAN CORPUSCULAR HEMOGLOBIN 32.5 pg (27.0-33.0); MEAN CORPUSCULAR HGB CONC 31.5 g/dl (32.0-36.5); MEAN CORPUSCULAR VOLUME 103.2 fl (80.0-96.0); MONO # 0.6 10^3/uL (0.0-0.8); MONO % 10.3 % (2.0-8.0); NEUTROPHILS # 4.1 10^3/uL (1.5-8.5); NEUTROPHILS % 66.4 % (36.0-66.0); RED BLOOD COUNT 3.48 10^6/uL (4.00-5.40); WHITE BLOOD COUNT 6.1 10^3/uL (4.0-10.0)
[2023-09-25 19:23] LABS: INR 0.94; PARTIAL THROMBOPLASTIN TIME 33.9 SECONDS (24.8-34.2); PROTHROMBIN TIME 12.3 SECONDS (12.5-14.5)
[2023-09-25 19:38] LABS: CPK CREATINE PHOSPHOKINASE 22 U/L (34-145)
[2023-09-25 19:39] LABS: ALBUMIN 3.6 G/DL (3.2-5.2); ALKALINE PHOSPHATASE 190 U/L (46-116); ALT/SGPT 22 U/L (7.0-40); AST/SGOT 19 U/L (<34); BILIRUBIN,DIRECT < 0.1 MG/DL (<0.4); BILIRUBIN,TOTAL 0.2 MG/DL (0.3-1.2); BLOOD UREA NITROGEN 44 MG/DL (9-23); CALCIUM LEVEL 8.7 MG/DL (8.3-10.6); CARBON DIOXIDE LEVEL 34 MMOL/L (20-31); CHLORIDE LEVEL 96 MMOL/L (98-107); CK-MB VALUE MASS < 1.0 NG/ML (<3.6); CREATININE FOR GFR 6.45 MG/DL (0.55-1.30); GLOMERULAR FILTRATION RATE 6.9 (>45); GLUCOSE, FASTING 88 MG/DL (74-106); MB/CK RELATIVE INDEX 4.54 (< OR =4); POTASSIUM SERUM 5.3 MMOL/L (3.5-5.1); SODIUM LEVEL 136 MMOL/L (136-145); TOTAL PROTEIN 6.9 G/DL (5.7-8.2)
[2023-09-25 19:41] LABS: PLATELET COUNT, AUTOMATED 98 10^3/uL (150-450)
[2023-09-25] MEDS: NS 500 ML IV ONE (19:49)
[2023-09-25] MEDS: MORPHINE 2 MG/ML 1ML VIAL IV ONE (19:50)
[2023-09-25 20:06] LABS: RSV AMPLIFICATION NEGATIVE (NEGATIVE)
[2023-09-25] MEDS: MIDODRINE 5 MG TAB PO ONE (20:19)
[2023-09-25] MEDS ORDERED: NORCO, ANEXSIA 5/325MG TABLET (HYDROcodone/ACETAMINOPHEN) PO PRN (23:40)
[2023-09-26] VITALS (11 sets, daily range): BP systolic 93–120; BP diastolic 55–72; TEMP 97–98.4; O2SAT 95–97
[2023-09-26] MEDS: traZODone 100 MG TAB PO ONE (00:01)
[2023-09-26] MEDS: MORPHINE 2 MG/ML 1ML VIAL IV ONE (00:02)
[2023-09-26] MEDS: IPRATROPIUM 0.5MG/ALBUTEROL 2.5MG INH SOL UD 3ML (DUONEB) NEB SCH (07:40)
[2023-09-26 08:26] LABS: BASO % 0.6 % (0.0-1.0); EOS % 0.2 % (0.0-3.0); HEMATOCRIT 36.4 % (36.0-47.0); HEMOGLOBIN 11.5 g/dl (12.0-15.5); LYMPH # 1.3 10^3/uL (1.5-5.0); LYMPH % 20.3 % (24.0-44.0); MEAN CORPUSCULAR HEMOGLOBIN 32.2 pg (27.0-33.0); MEAN CORPUSCULAR HGB CONC 31.6 g/dl (32.0-36.5); MONO # 0.6 10^3/uL (0.0-0.8); MONO % 8.9 % (2.0-8.0); NEUTROPHILS # 4.3 10^3/uL (1.5-8.5); NEUTROPHILS % 69.7 % (36.0-66.0); PLATELET COUNT, AUTOMATED 100 10^3/uL (150-450); RED BLOOD COUNT 3.57 10^6/uL (4.00-5.40); WHITE BLOOD COUNT 6.2 10^3/uL (4.0-10.0)
[2023-09-26 08:47] LABS: BLOOD UREA NITROGEN 49 MG/DL (9-23); CALCIUM LEVEL 8.9 MG/DL (8.3-10.6); CARBON DIOXIDE LEVEL 31 MMOL/L (20-31); CHLORIDE LEVEL 96 MMOL/L (98-107); GLOMERULAR FILTRATION RATE 5.9 (>45); GLUCOSE, FASTING 91 MG/DL (74-106); POTASSIUM SERUM 5.9 MMOL/L (3.5-5.1); SODIUM LEVEL 134 MMOL/L (136-145)
[2023-09-26 08:50] LABS: THYROID STIMULATING HORMONE 2.381 uIU/ML (0.55-4.78)
[2023-09-26] MEDS ORDERED: SODIUM CHLORIDE 0.9% 1000ML IV PRN (09:05)
[2023-09-26] MEDS ORDERED: HEPARIN 1,000UNITS/ML 10ML VIAL (FOR RADIOLOGY & DIALYSIS ONLY) IV PRN (09:05)
[2023-09-26] MEDS ORDERED: LIDOCAINE 1% SDV 5ML VIAL SC PRN (09:05)
[2023-09-26] MEDS ORDERED: HEPARIN 1,000UNITS/ML 10ML VIAL (FOR RADIOLOGY & DIALYSIS ONLY) XX SCH (09:05)
[2023-09-26] MEDS: METOPROLOL 5 MG/5 ML VIAL IV STA (09:23)
[2023-09-26] MEDS: MIDODRINE 5 MG TAB PO STA (10:27)
[2023-09-26] MEDS ORDERED: HOME MED LIST COMPLETE! XX SCH (11:20)
[2023-09-26 11:52] LABS: IRON (FE) 66 UG/DL (50-170); PERCENT SATURATION 21.3 % (13.2-45.0); TOTAL IRON BINDING CAPACITY 310 UG/DL (250-425)
[2023-09-26 11:54] LABS: FERRITIN 1537.4 NG/ML (7.3-270.7); FOLATE > 24.00 NG/ML (>5.4)
[2023-09-26 11:55] LABS: VITAMIN B12 LEVEL 635 PG/ML (211-911)
[2023-09-26] MEDS: MIDODRINE 5 MG TAB PO SCH (12:00)
[2023-09-26] MEDS: METOPROLOL TART 50 MG TAB PO SCH (12:09)
[2023-09-26] MEDS ORDERED: CYCLOBENZAPRINE 5MG TABLET PO PRN (13:35)
[2023-09-26] MEDS: HYDROMORPHONE HCL 0.5 MG/ 0.5 ML SYRINGE IV PRN (13:58)
[2023-09-26] MEDS: OMEPRAZOLE 20MG CAP PO SCH (16:50)
[2023-09-26] MEDS: PERCOCET 5MG/325MG TAB PO PRN (18:43)
[2023-09-26] MEDS ORDERED: ONDANSETRON 4MG 2ML VIAL As Ordered ONE (20:45)
[2023-09-26] MEDS: traZODone 100 MG TAB PO SCH (20:50)
[2023-09-26] MEDS: ONDANSETRON 4MG 2ML VIAL IV ONE (20:50)
[2023-09-26] MEDS: ROSUVASTATIN 10 MG TAB (CRESTOR) PO SCH (20:50)
[2023-09-26] MEDS: HEPARIN SOD (PORCINE) 5000UNITS/ML 1ML VIAL/SYRINGE SQ SCH (20:53)
[2023-09-27] VITALS (7 sets, daily range): BP systolic 97–120; BP diastolic 51–69; TEMP 97.2–98.2; O2SAT 94–98
[2023-09-27 05:20] LABS: BASO % 0.7 % (0.0-1.0); HEMATOCRIT 32.5 % (36.0-47.0); HEMOGLOBIN 10.3 g/dl (12.0-15.5); LYMPH # 1.3 10^3/uL (1.5-5.0); LYMPH % 22.4 % (24.0-44.0); MEAN CORPUSCULAR HEMOGLOBIN 32.8 pg (27.0-33.0); MEAN CORPUSCULAR HGB CONC 31.7 g/dl (32.0-36.5); MEAN CORPUSCULAR VOLUME 103.5 fl (80.0-96.0); MONO # 0.7 10^3/uL (0.0-0.8); MONO % 11.5 % (2.0-8.0); NEUTROPHILS # 3.9 10^3/uL (1.5-8.5); NEUTROPHILS % 65.2 % (36.0-66.0); RED BLOOD COUNT 3.14 10^6/uL (4.00-5.40)
[2023-09-27 05:42] LABS: ALBUMIN 3.3 G/DL (3.2-5.2); CALCIUM LEVEL 8.4 MG/DL (8.3-10.6); CREATININE FOR GFR 4.59 MG/DL (0.55-1.30); GLOMERULAR FILTRATION RATE 10.1 (>45); PHOSPHORUS LEVEL 4.3 MG/DL (2.4-5.1); POTASSIUM SERUM 5.7 MMOL/L (3.5-5.1)
[2023-09-27 05:55] LABS: PLATELET COUNT, AUTOMATED 95 10^3/uL (150-450)
[2023-09-27] MEDS: ASPIRIN ENTERIC 325MG TAB PO SCH (08:45)
[2023-09-27] MEDS: SUCROFERRIC OXYHYDROXIDE 500MG CHEW TAB (VELPHORO) PO SCH (11:57)
[2023-09-27] MEDS: PATIROMER SORBITEX CALCIUM 8.4 GM POWDER PACKET (VELTASSA) PO ONE (11:59)
[2023-09-27] MEDS: LIDOCAINE 1% MDV 20ML VIAL SC ONE (13:25)
[2023-09-27] MEDS: TRIAMCINOLONE ACETONIDE SUSP 40MG/ML 1ML VIAL IA ONE (13:25)
[2023-09-27] MEDS: ALBUTEROL SULFATE 2.5MG/0.5ML INH NEB SOLN NEB PRN (17:45)
[2023-09-27] MEDS ORDERED: DEXTROSE 50% 50ML SYRINGE IV PRN (21:30)
[2023-09-27] MEDS ORDERED: GLUCAGON INJ 1MG VIAL SC PRN (21:30)
[2023-09-27] MEDS ORDERED: GLUCOSE 4GM CHEW TABLET PO PRN (21:30)
[2023-09-27] MEDS: INSULIN LISPRO (NovoLOG) PER UNIT SC STA (21:39)
[2023-09-27] MEDS: INSULIN LISPRO (NovoLOG) PER UNIT SC SCH (21:40)
[2023-09-28] VITALS (9 sets, daily range): BP systolic 100–137; BP diastolic 56–73; TEMP 97–98.2; O2SAT 96–99
[2023-09-28 05:01] LABS: BASO % 0.2 % (0.0-1.0); HEMATOCRIT 31.4 % (36.0-47.0); HEMOGLOBIN 10.3 g/dl (12.0-15.5); LYMPH # 0.5 10^3/uL (1.5-5.0); LYMPH % 9.6 % (24.0-44.0); MEAN CORPUSCULAR HEMOGLOBIN 32.7 pg (27.0-33.0); MEAN CORPUSCULAR HGB CONC 32.8 g/dl (32.0-36.5); MEAN CORPUSCULAR VOLUME 99.7 fl (80.0-96.0); MONO # 0.3 10^3/uL (0.0-0.8); MONO % 6.1 % (2.0-8.0); NEUTROPHILS # 4.5 10^3/uL (1.5-8.5); NEUTROPHILS % 83.5 % (36.0-66.0); RED BLOOD COUNT 3.15 10^6/uL (4.00-5.40); WHITE BLOOD COUNT 5.4 10^3/uL (4.0-10.0)
[2023-09-28 05:03] LABS: PLATELET COUNT, AUTOMATED 88 10^3/uL (150-450)
[2023-09-28] MEDS ORDERED: LIDOCAINE 1% SDV 5ML VIAL SC PRN (05:50)
[2023-09-28] MEDS ORDERED: HEPARIN 1,000UNITS/ML 10ML VIAL (FOR RADIOLOGY & DIALYSIS ONLY) IV PRN (05:50)
[2023-09-28] MEDS ORDERED: SODIUM CHLORIDE 0.9% 1000ML IV PRN (05:50)
[2023-09-28] MEDS ORDERED: HEPARIN 1,000UNITS/ML 10ML VIAL (FOR RADIOLOGY & DIALYSIS ONLY) XX SCH (05:50)
[2023-09-28 05:52] LABS: ALBUMIN 3.5 G/DL (3.2-5.2); CALCIUM LEVEL 8.1 MG/DL (8.3-10.6); CREATININE FOR GFR 6.74 MG/DL (0.55-1.30); GLOMERULAR FILTRATION RATE 6.5 (>45); PHOSPHORUS LEVEL 3.3 MG/DL (2.4-5.1); POTASSIUM SERUM 6.3 MMOL/L (3.5-5.1)
[2023-09-28] MEDS: INSULIN LISPRO (NovoLOG) PER UNIT SC SCH (06:39)
[2023-09-28] MEDS ORDERED: SODIUM BICARBONATE 8.4% INJ 50ML SYRINGE IV STA (06:41)
[2023-09-28] MEDS ORDERED: PATIROMER SORBITEX CALCIUM 8.4 GM POWDER PACKET (VELTASSA) PO ONE (06:45)
[2023-09-28] MEDS: CALCIUM GLUCONATE 1,000 MG in D5W MINI-BAG PLUS 100 ML IV ONE (07:22)
[2023-09-28] MEDS ORDERED: IPRATROPIUM 0.5MG/ALBUTEROL 2.5MG INH SOL UD 3ML (DUONEB) NEB PRN (10:20)
[2023-09-28] MEDS: diphenhydrAMINE 25MG CAP PO PRN (12:55)
[2023-09-28 15:24] LABS: ALBUMIN 3.7 G/DL (3.2-5.2); CALCIUM LEVEL 8.4 MG/DL (8.3-10.6); CREATININE FOR GFR 3.12 MG/DL (0.55-1.30); GLOMERULAR FILTRATION RATE 15.8 (>45); PHOSPHORUS LEVEL 3.1 MG/DL (2.4-5.1); POTASSIUM SERUM 3.8 MMOL/L (3.5-5.1)
[2023-09-28] MEDS ORDERED: MIRALAX *UNIT DOSE* 17GM PACKET PO PRN (17:45)
[2023-09-29 03:45] VITALS: BP 112/57; TEMP 97.8; O2SAT 95
[2023-09-29 05:21] LABS: BASO % 0.1 % (0.0-1.0); EOS % 0.1 % (0.0-3.0); HEMATOCRIT 30.5 % (36.0-47.0); LYMPH # 0.7 10^3/uL (1.5-5.0); LYMPH % 8.9 % (24.0-44.0); MEAN CORPUSCULAR HEMOGLOBIN 32.7 pg (27.0-33.0); MEAN CORPUSCULAR HGB CONC 32.8 g/dl (32.0-36.5); MEAN CORPUSCULAR VOLUME 99.7 fl (80.0-96.0); MONO # 0.6 10^3/uL (0.0-0.8); MONO % 7.9 % (2.0-8.0); NEUTROPHILS # 6.4 10^3/uL (1.5-8.5); NEUTROPHILS % 82.4 % (36.0-66.0); PLATELET COUNT, AUTOMATED 101 10^3/uL (150-450); RED BLOOD COUNT 3.06 10^6/uL (4.00-5.40); WHITE BLOOD COUNT 7.8 10^3/uL (4.0-10.0)
[2023-09-29 05:52] LABS: ALBUMIN 3.4 G/DL (3.2-5.2); CREATININE FOR GFR 4.43 MG/DL (0.55-1.30); GLOMERULAR FILTRATION RATE 10.6 (>45); PHOSPHORUS LEVEL 4.3 MG/DL (2.4-5.1); POTASSIUM SERUM 4.9 MMOL/L (3.5-5.1)
[2023-09-29 07:45] VITALS: BP 121/75; TEMP 96.5; O2SAT 99
[2023-09-29] MEDS ORDERED: HEPARIN 1,000UNITS/ML 10ML VIAL (FOR RADIOLOGY & DIALYSIS ONLY) XX SCH (08:05)
[2023-09-29] MEDS ORDERED: LIDOCAINE 1% SDV 5ML VIAL SC PRN (08:05)
[2023-09-29] MEDS ORDERED: SODIUM CHLORIDE 0.9% 1000ML IV PRN (08:05)
[2023-09-29] MEDS ORDERED: HEPARIN 1,000UNITS/ML 10ML VIAL (FOR RADIOLOGY & DIALYSIS ONLY) IV PRN (08:05)
[2023-09-29 12:34] VITALS: BP 125/63
== END 2023-09-29 14:25 | disposition home or self-care (01) | DRG 551 ==
LOC: EDBD 18:30 → M ED 18:30 → M ED INP 18:31 → ENRESERV 09-26 08:48 → M MSPAV 09-26 09:28 → M ICU 09-26 10:08 → OBSVTOIN 09-27 16:13
PROVIDERS: ADMIT Internal Medicine; ATTEND Internal Medicine
PROC: 5A1D70Z Performance of Urinary Filtration, Intermittent, Less than 6 Hours Per Day (ICD-10-PCS; principal; 2023-09-27)
DX: S32.049A Unspecified fracture of fourth lumbar vertebra, initial encounter for closed fracture (principal); N18.6 End stage renal disease; E87.1 Hypo-osmolality and hyponatremia; I50.32 Chronic diastolic (congestive) heart failure; E03.9 Hypothyroidism, unspecified; E04.1 Nontoxic single thyroid nodule; J45.909 Unspecified asthma, uncomplicated; E11.22 Type 2 diabetes mellitus with diabetic chronic kidney disease; J44.9 Chronic obstructive pulmonary disease, unspecified; E11.42 Type 2 diabetes mellitus with diabetic polyneuropathy; D63.1 Anemia in chronic kidney disease; D69.6 Thrombocytopenia, unspecified; E78.5 Hyperlipidemia, unspecified; E78.00 Pure hypercholesterolemia, unspecified; I48.91 Unspecified atrial fibrillation; M25.462 Effusion, left knee; E87.5 Hyperkalemia; G47.33 Obstructive sleep apnea (adult) (pediatric); I95.89 Other hypotension; R29.6 Repeated falls; I27.20 Pulmonary hypertension, unspecified; F41.9 Anxiety disorder, unspecified; F32.A Depression, unspecified; K21.9 Gastro-esophageal reflux disease without esophagitis; K74.60 Unspecified cirrhosis of liver; Z88.8 Allergy status to other drugs, medicaments and biological substances; Z79.899 Other long term (current) drug therapy; Z79.82 Long term (current) use of aspirin; W18.30XA Fall on same level, unspecified, initial encounter; Y92.009 Unspecified place in unspecified non-institutional (private) residence as the place of occurrence of the external cause; Z87.891 Personal history of nicotine dependence

== ENCOUNTER 2023-10-11 01:36 | Emergency (ER) | payer OTHER, MEDICAID ==
[~2023-10-11] VITALS: Ht 154.9 cm; Wt 77.2 kg
[2023-10-11 02:23] LABS: BASO % 0.3 % (0.0-1.0); HEMATOCRIT 37.3 % (36.0-47.0); HEMOGLOBIN 11.8 g/dl (12.0-15.5); LYMPH # 0.9 10^3/uL (1.5-5.0); LYMPH % 6.8 % (24.0-44.0); MEAN CORPUSCULAR HEMOGLOBIN 32.8 pg (27.0-33.0); MEAN CORPUSCULAR HGB CONC 31.6 g/dl (32.0-36.5); MEAN CORPUSCULAR VOLUME 103.6 fl (80.0-96.0); MONO # 0.8 10^3/uL (0.0-0.8); MONO % 6.2 % (2.0-8.0); NEUTROPHILS # 10.9 10^3/uL (1.5-8.5); NEUTROPHILS % 86.5 % (36.0-66.0); PLATELET COUNT, AUTOMATED 122 10^3/uL (150-450); WHITE BLOOD COUNT 12.6 10^3/uL (4.0-10.0)
[2023-10-11 02:57] LABS: ALBUMIN 3.9 G/DL (3.2-5.2); ALKALINE PHOSPHATASE 195 U/L (46-116); ALT/SGPT 16 U/L (7.0-40); AST/SGOT 42 U/L (<34); BILIRUBIN,DIRECT < 0.1 MG/DL (<0.4); BILIRUBIN,TOTAL 0.3 MG/DL (0.3-1.2); BLOOD UREA NITROGEN 24 MG/DL (9-23); CALCIUM LEVEL 8.8 MG/DL (8.3-10.6); CARBON DIOXIDE LEVEL 30 MMOL/L (20-31); CHLORIDE LEVEL 97 MMOL/L (98-107); CREATININE FOR GFR 4.38 MG/DL (0.55-1.30); GLOMERULAR FILTRATION RATE 10.7 (>45); GLUCOSE, FASTING 165 MG/DL (74-106); LIPASE 59 U/L (12-53); POTASSIUM SERUM 5.1 MMOL/L (3.5-5.1); SODIUM LEVEL 135 MMOL/L (136-145); TOTAL PROTEIN 7.5 G/DL (5.7-8.2)
[2023-10-11] MEDS: LOPERAMIDE 2 MG CAPLET PO ONE (06:26)
[2023-10-11] MEDS: ACETAMINOPHEN TAB 650MG DOSE (2X325MG) PO ONE (06:27)
[2023-10-11] MEDS ORDERED: HOME MED LIST COMPLETE! XX SCH (06:55)
[2023-10-11 07:02] VITALS: BP 96/55
[2023-10-11] MEDS: METOPROLOL 5 MG/5 ML VIAL IV SCH (07:02)
[2023-10-11] MEDS: VANCOMYCIN 125MG CAPSULE PO STA (08:15)
[2023-10-11] MEDS ORDERED: VANC125C12 PO (09:39)
[2023-10-11 10:49] VITALS: BP 96/57; TEMP 96.7; O2SAT 96
== END 2023-10-11 10:59 | disposition home or self-care (01) ==
LOC: EDBD 01:36 → M ED 01:36
DX: A04.72 Enterocolitis due to Clostridium difficile, not specified as recurrent (principal); I48.91 Unspecified atrial fibrillation; K59.00 Constipation, unspecified; E78.5 Hyperlipidemia, unspecified; J44.9 Chronic obstructive pulmonary disease, unspecified; K21.9 Gastro-esophageal reflux disease without esophagitis; N18.6 End stage renal disease; Z88.1 Allergy status to other antibiotic agents; Z88.8 Allergy status to other drugs, medicaments and biological substances; Z87.442 Personal history of urinary calculi; Z79.52 Long term (current) use of systemic steroids; Z79.82 Long term (current) use of aspirin; Z79.83 Long term (current) use of bisphosphonates; Z79.899 Other long term (current) drug therapy

== ENCOUNTER 2023-12-09 19:53 | Emergency (ER) | payer OTHER, MEDICAID ==
[~2023-12-09 19:53] MED LIST changes: +VANC125C12 PO
[2023-12-09 20:26] LABS: BASO % 0.5 % (0.0-1.0); HEMATOCRIT 32.3 % (36.0-47.0); HEMOGLOBIN 10.4 g/dl (12.0-15.5); LYMPH # 1.3 10^3/uL (1.5-5.0); LYMPH % 19.9 % (24.0-44.0); MEAN CORPUSCULAR HEMOGLOBIN 33.4 pg (27.0-33.0); MEAN CORPUSCULAR HGB CONC 32.2 g/dl (32.0-36.5); MEAN CORPUSCULAR VOLUME 103.9 fl (80.0-96.0); MONO # 0.7 10^3/uL (0.0-0.8); MONO % 10.2 % (2.0-8.0); NEUTROPHILS # 4.6 10^3/uL (1.5-8.5); NEUTROPHILS % 69.1 % (36.0-66.0); RED BLOOD COUNT 3.11 10^6/uL (4.00-5.40); WHITE BLOOD COUNT 6.6 10^3/uL (4.0-10.0)
[2023-12-09 20:52] LABS: BLOOD UREA NITROGEN 39 MG/DL (9-23); CALCIUM LEVEL 8.2 MG/DL (8.3-10.6); CARBON DIOXIDE LEVEL 31 MMOL/L (20-31); CHLORIDE LEVEL 102 MMOL/L (98-107); CK-MB VALUE MASS < 1.0 NG/ML (<3.6); CREATININE FOR GFR 7.02 MG/DL (0.55-1.30); GLOMERULAR FILTRATION RATE 6.2 (>45); GLUCOSE, FASTING 176 MG/DL (74-106); POTASSIUM SERUM 4.8 MMOL/L (3.5-5.1); SODIUM LEVEL 141 MMOL/L (136-145)
[2023-12-09 20:53] LABS: CPK CREATINE PHOSPHOKINASE 33 U/L (34-145); MB/CK RELATIVE INDEX 3.03 (< OR =4); PLATELET COUNT, AUTOMATED 99 10^3/uL (150-450)
[2023-12-09 21:47] LABS: CK-MB VALUE MASS < 1.0 NG/ML (<3.6); CPK CREATINE PHOSPHOKINASE 40 U/L (34-145)
[2023-12-09 22:00] VITALS: BP 110/56; TEMP 98.1; O2SAT 95
== END 2023-12-09 22:20 | disposition home or self-care (01) ==
LOC: M ED 19:53
DX: R07.9 Chest pain, unspecified (principal); I48.91 Unspecified atrial fibrillation; I45.81 Long QT syndrome; Z79.52 Long term (current) use of systemic steroids; Z79.82 Long term (current) use of aspirin; Z79.899 Other long term (current) drug therapy; Z88.1 Allergy status to other antibiotic agents; Z88.8 Allergy status to other drugs, medicaments and biological substances

== ENCOUNTER → 2023-12-25 | Outpatient (CLI) | payer OTHER, MEDICAID ==
[2023-12-25 13:25] LABS: CALCIUM LEVEL 9.4 MG/DL (8.3-10.6); CREATININE FOR GFR 6.41 MG/DL (0.55-1.30); GLOMERULAR FILTRATION RATE 6.9 (>45); POTASSIUM SERUM 4.9 MMOL/L (3.5-5.1)
== END ==
LOC: M PLAIMG 11:18
PROVIDERS: ATTEND Urology
DX: C64.2 Malignant neoplasm of left kidney, except renal pelvis (principal); Z90.5 Acquired absence of kidney

== ENCOUNTER → 2023-12-25 | Outpatient (CLI) | payer OTHER, MEDICAID | LOC: M PLAIMG 11:04 | PROVIDERS: ATTEND Urology | DX: C64.2 Malignant neoplasm of left kidney, except renal pelvis (principal); Z90.5 Acquired absence of kidney; Z53.9 Procedure and treatment not carried out, unspecified reason ==

== ENCOUNTER 2024-01-07 14:13 | Emergency (ER) | payer OTHER, MEDICAID ==
[~2024-01-07] VITALS: Ht 154.9 cm; Wt 75.0 kg
[2024-01-07 14:24] VITALS: TEMP 98.2
[2024-01-07] MEDS: MIDODRINE 5 MG TAB PO STA (16:37)
[2024-01-07] MEDS: NORCO, ANEXSIA 5/325MG TABLET (HYDROcodone/ACETAMINOPHEN) PO ONE ×2 (16:37→19:47)
[2024-01-07 18:45] VITALS: O2SAT 95
[2024-01-07] MEDS ORDERED: HYDR-3713 PO (19:33)
[2024-01-07 19:47] VITALS: BP 117/74
== END 2024-01-07 20:30 | disposition home or self-care (01) ==
LOC: M ED 14:13 → EDBD 14:13 → M ED 20:30
DX: S00.93XA Contusion of unspecified part of head, initial encounter (principal); S99.921A Unspecified injury of right foot, initial encounter; W19.XXXA Unspecified fall, initial encounter; Y92.009 Unspecified place in unspecified non-institutional (private) residence as the place of occurrence of the external cause; Y93.9 Activity, unspecified; Y99.9 Unspecified external cause status; J44.9 Chronic obstructive pulmonary disease, unspecified; N18.6 End stage renal disease; Z99.2 Dependence on renal dialysis; M50.322 Other cervical disc degeneration at C5-C6 level; Z79.82 Long term (current) use of aspirin; Z79.899 Other long term (current) drug therapy; Z88.8 Allergy status to other drugs, medicaments and biological substances

== ENCOUNTER 2024-01-11 10:35 | Observation (INO) | payer OTHER, MEDICAID ==
[~2024-01-11] VITALS: Ht 157.5 cm; Wt 74.5 kg
[2024-01-11 11:57] LABS: BASO # 0.1 10^3/uL (0.0-0.2); BASO % 0.8 % (0.0-1.0); HEMATOCRIT 38.6 % (36.0-47.0); HEMOGLOBIN 12.2 g/dl (12.0-15.5); LYMPH % 13.4 % (24.0-44.0); MEAN CORPUSCULAR HEMOGLOBIN 32.6 pg (27.0-33.0); MEAN CORPUSCULAR HGB CONC 31.6 g/dl (32.0-36.5); MEAN CORPUSCULAR VOLUME 103.2 fl (80.0-96.0); MONO # 0.6 10^3/uL (0.0-0.8); MONO % 8.2 % (2.0-8.0); NEUTROPHILS # 5.7 10^3/uL (1.5-8.5); NEUTROPHILS % 77.2 % (36.0-66.0); PLATELET COUNT, AUTOMATED 115 10^3/uL (150-450); RED BLOOD COUNT 3.74 10^6/uL (4.00-5.40); WHITE BLOOD COUNT 7.4 10^3/uL (4.0-10.0)
[2024-01-11 12:24] LABS: THYROID STIMULATING HORMONE 1.585 uIU/ML (0.55-4.78); THYROXINE (T4) 8.3 UG/DL (4.5-10.9)
[2024-01-11 12:43] LABS: ALKALINE PHOSPHATASE 252 U/L (46-116); ALT/SGPT 10 U/L (7.0-40); AST/SGOT 9 U/L (<34); BILIRUBIN,DIRECT < 0.1 MG/DL (<0.4); BILIRUBIN,TOTAL < 0.2 MG/DL (0.3-1.2); BLOOD UREA NITROGEN 71 MG/DL (9-23); CALCIUM LEVEL 8.8 MG/DL (8.3-10.6); CARBON DIOXIDE LEVEL 27 MMOL/L (20-31); CHLORIDE LEVEL 96 MMOL/L (98-107); CREATININE FOR GFR 11.86 MG/DL (0.55-1.30); GLOMERULAR FILTRATION RATE 3.4 (>45); GLUCOSE, FASTING 89 MG/DL (74-106); POTASSIUM SERUM 5.3 MMOL/L (3.5-5.1); SODIUM LEVEL 137 MMOL/L (136-145); TOTAL PROTEIN 7.6 G/DL (5.7-8.2)
[2024-01-11] MEDS: NORCO, ANEXSIA 5/325MG TABLET (HYDROcodone/ACETAMINOPHEN) PO ONE (13:07)
[2024-01-11 14:45] VITALS: BP 109/67; TEMP 97.9; O2SAT 92
[2024-01-11] MEDS ORDERED: GLUCAGON INJ 1MG VIAL SC PRN (15:00)
[2024-01-11] MEDS ORDERED: DEXTROSE 50% 50ML SYRINGE IV PRN (15:00)
[2024-01-11] MEDS ORDERED: GLUCOSE 4 GM CHEW PO PRN (15:00)
[2024-01-11 15:06] LABS: PARTIAL THROMBOPLASTIN TIME 35.3 SECONDS (24.8-34.2); PROTHROMBIN TIME 12.9 SECONDS (12.5-14.5)
[2024-01-11] MEDS: INSULIN LISPRO (NovoLOG) PER UNIT SC SCH ×2 (16:59→20:58)
[2024-01-11] MEDS: PATIROMER SORBITEX CALCIUM 8.4 GM POWDER PACKET (VELTASSA) PO ONE (17:06)
[2024-01-11] MEDS ORDERED: DICL100G10 TOP (17:33)
[2024-01-11] MEDS ORDERED: HYDR-3713 PO (17:33)
[2024-01-11] MEDS ORDERED: ROSU20TA61 PO (17:33)
[2024-01-11] MEDS ORDERED: DIGO0.123 PO (17:33)
[2024-01-11] MEDS ORDERED: HOME MED LIST COMPLETE! XX SCH (17:35)
[2024-01-11] MEDS: ACETAMINOPHEN TAB 650MG DOSE (2X325MG) PO PRN (18:39)
[2024-01-11] MEDS ORDERED: ALBUTEROL 90 MCG/ACT 8GM HFA INHALER INH PRN (18:50)
[2024-01-11 20:35] VITALS: BP 117/67; TEMP 98.1; O2SAT 94
[2024-01-11] MEDS ORDERED: OMEPRAZOLE 20MG CAP PO SCH (21:00)
[2024-01-11] MEDS ORDERED: MIDODRINE 5 MG TAB PO SCH (21:00)
[2024-01-11] MEDS: diazePAM 2 MG TAB PO PRN (21:09)
[2024-01-11] MEDS: ROSUVASTATIN 10 MG TAB (CRESTOR) PO SCH (21:09)
[2024-01-11] MEDS: METOPROLOL TARTRATE 100MG TAB PO SCH (21:10)
[2024-01-11] MEDS: CYCLOBENZAPRINE 5MG TABLET PO PRN (21:10)
[2024-01-11] MEDS: ASPIRIN 325 MG TAB PO SCH (21:10)
[2024-01-11] MEDS: OMEPRAZOLE 20MG CAP PO SCH (21:10)
[2024-01-11] MEDS: traZODone 100 MG TAB PO SCH (21:10)
[2024-01-12 04:44] VITALS: BP 104/66; TEMP 97.5; O2SAT 100
[2024-01-12] MEDS: MIDODRINE 5 MG TAB PO SCH (05:13)
[2024-01-12 06:06] LABS: HEMATOCRIT 33.3 % (36.0-47.0); HEMOGLOBIN 10.7 g/dl (12.0-15.5); MEAN CORPUSCULAR HEMOGLOBIN 32.9 pg (27.0-33.0); MEAN CORPUSCULAR HGB CONC 32.1 g/dl (32.0-36.5); MEAN CORPUSCULAR VOLUME 102.5 fl (80.0-96.0); RED BLOOD COUNT 3.25 10^6/uL (4.00-5.40); WHITE BLOOD COUNT 5.3 10^3/uL (4.0-10.0)
[2024-01-12 06:11] LABS: PLATELET COUNT, AUTOMATED 94 10^3/uL (150-450)
[2024-01-12 06:32] LABS: ALBUMIN 3.3 G/DL (3.2-5.2); ALKALINE PHOSPHATASE 230 U/L (46-116); ALT/SGPT 9 U/L (7.0-40); AST/SGOT < 8 U/L (<34); BILIRUBIN,TOTAL < 0.2 MG/DL (0.3-1.2); BLOOD UREA NITROGEN 82 MG/DL (9-23); CARBON DIOXIDE LEVEL 26 MMOL/L (20-31); CHLORIDE LEVEL 95 MMOL/L (98-107); CREATININE FOR GFR 12.91 MG/DL (0.55-1.30); GLOMERULAR FILTRATION RATE 3.1 (>45); GLUCOSE, FASTING 122 MG/DL (74-106); POTASSIUM SERUM 5.1 MMOL/L (3.5-5.1); SODIUM LEVEL 134 MMOL/L (136-145); TOTAL PROTEIN 6.5 G/DL (5.7-8.2)
[2024-01-12] MEDS ORDERED: SODIUM CHLORIDE 0.9% 1000ML IV PRN (07:05)
[2024-01-12] MEDS ORDERED: HEPARIN 1,000UNITS/ML 10ML VIAL (FOR RADIOLOGY & DIALYSIS ONLY) XX SCH (07:05)
[2024-01-12] MEDS ORDERED: LIDOCAINE 1% SDV 5ML VIAL SC PRN (07:05)
[2024-01-12] MEDS: SUCROFERRIC OXYHYDROXIDE 500MG CHEW TAB (VELPHORO) PO SCH (07:41)
[2024-01-12] MEDS: HEPARIN 1,000UNITS/ML 10ML VIAL (FOR RADIOLOGY & DIALYSIS ONLY) IV PRN (08:42)
[2024-01-12 12:55] VITALS: BP 98/55; TEMP 97.5; O2SAT 96
[2024-01-12 13:00] VITALS: BP 98/55
[2024-01-12] MEDS: NORCO, ANEXSIA 5/325MG TABLET (HYDROcodone/ACETAMINOPHEN) PO PRN (15:05)
[2024-01-12 16:09] VITALS: BP 96/54
[2024-01-12 20:05] VITALS: BP 103/59; TEMP 98.6; O2SAT 99
[2024-01-13 04:47] VITALS: BP 88/53; TEMP 98.2; O2SAT 93
[2024-01-13 05:03] VITALS: BP 94/56
[2024-01-13] MEDS: METOPROLOL TART 50 MG TAB PO SCH (08:29)
[2024-01-13] MEDS ORDERED: SODIUM CHLORIDE 0.9% 1000ML IV PRN (10:25)
[2024-01-13] MEDS ORDERED: LIDOCAINE 1% SDV 5ML VIAL SC PRN (10:25)
[2024-01-13] MEDS ORDERED: HEPARIN 1,000UNITS/ML 10ML VIAL (FOR RADIOLOGY & DIALYSIS ONLY) IV PRN (10:25)
[2024-01-13] MEDS: HEPARIN 1,000UNITS/ML 10ML VIAL (FOR RADIOLOGY & DIALYSIS ONLY) XX SCH (11:54)
[2024-01-13 15:00] VITALS: BP 95/61; TEMP 97.3; O2SAT 90
[2024-01-13 20:30] VITALS: BP 99/60; TEMP 97.9; O2SAT 96
[2024-01-13] MEDS: METOPROLOL TART 25 MG TABLET PO SCH (20:30)
[2024-01-13 20:31] VITALS: BP 99/60; TEMP 97.3; O2SAT 94
[2024-01-14 04:30] VITALS: BP 99/61; TEMP 97.5; O2SAT 100
[2024-01-14] MEDS ORDERED: SODIUM CHLORIDE 0.9% 1000ML IV PRN (05:20)
[2024-01-14] MEDS ORDERED: LIDOCAINE 1% SDV 5ML VIAL SC PRN (05:20)
[2024-01-14] MEDS ORDERED: HEPARIN 1,000UNITS/ML 10ML VIAL (FOR RADIOLOGY & DIALYSIS ONLY) IV PRN (05:20)
[2024-01-14 05:44] VITALS: BP 100/61; TEMP 97.3; O2SAT 99
[2024-01-14 06:00] VITALS: BP 100/61; TEMP 97.3; O2SAT 99
[2024-01-14 06:53] LABS: BASO % 0.5 % (0.0-1.0); EOS % 0.3 % (0.0-3.0); HEMATOCRIT 36.8 % (36.0-47.0); HEMOGLOBIN 11.8 g/dl (12.0-15.5); LYMPH # 0.8 10^3/uL (1.5-5.0); LYMPH % 11.2 % (24.0-44.0); MEAN CORPUSCULAR HEMOGLOBIN 32.6 pg (27.0-33.0); MEAN CORPUSCULAR HGB CONC 32.1 g/dl (32.0-36.5); MEAN CORPUSCULAR VOLUME 101.7 fl (80.0-96.0); MONO # 0.8 10^3/uL (0.0-0.8); MONO % 10.9 % (2.0-8.0); NEUTROPHILS # 5.6 10^3/uL (1.5-8.5); NEUTROPHILS % 76.7 % (36.0-66.0); PLATELET COUNT, AUTOMATED 104 10^3/uL (150-450); RED BLOOD COUNT 3.62 10^6/uL (4.00-5.40); WHITE BLOOD COUNT 7.3 10^3/uL (4.0-10.0)
[2024-01-14 07:13] LABS: CREATININE FOR GFR 8.74 MG/DL (0.55-1.30); GLOMERULAR FILTRATION RATE 4.8 (>45); POTASSIUM SERUM 4.5 MMOL/L (3.5-5.1)
[2024-01-14] MEDS: HEPARIN 1,000UNITS/ML 10ML VIAL (FOR RADIOLOGY & DIALYSIS ONLY) XX SCH (09:14)
[2024-01-14 12:28] VITALS: BP 124/66; TEMP 97.5; O2SAT 97
[2024-01-14] MEDS: DIGOXIN 0.125 MG TAB PO SCH (12:44)
[2024-01-14] MEDS: SENOKOT S TAB PO SCH (14:13)
[2024-01-14] MEDS: MIRALAX *UNIT DOSE* 17GM PACKET PO PRN (14:14)
[2024-01-14] MEDS: METOPROLOL TART 12.5 MG PER 1/2 TAB PO SCH (19:45)
[2024-01-14 20:00] VITALS: BP 124/68; TEMP 98.1; O2SAT 100
[2024-01-15 04:00] VITALS: BP 123/69; TEMP 97.9; O2SAT 100
[2024-01-15 09:21] VITALS: BP 124/65
[2024-01-15] MEDS: METOPROLOL TART 25 MG TABLET PO SCH (09:21)
== END 2024-01-15 12:21 ==
LOC: EDBD 10:35 → M ED 10:35 → M ED INP 10:36 → M MSPAV 14:53
PROVIDERS: ADMIT Internal Medicine; ATTEND Internal Medicine Nephrology
DX: R26.89 Other abnormalities of gait and mobility (principal); W19.XXXA Unspecified fall, initial encounter; M25.571 Pain in right ankle and joints of right foot; I48.0 Paroxysmal atrial fibrillation; I95.9 Hypotension, unspecified; N18.6 End stage renal disease; D69.6 Thrombocytopenia, unspecified; D63.1 Anemia in chronic kidney disease; R29.6 Repeated falls; E11.9 Type 2 diabetes mellitus without complications; E78.00 Pure hypercholesterolemia, unspecified; K21.9 Gastro-esophageal reflux disease without esophagitis; J45.909 Unspecified asthma, uncomplicated; Z79.82 Long term (current) use of aspirin; Z88.8 Allergy status to other drugs, medicaments and biological substances; Z79.899 Other long term (current) drug therapy
CPT/HCPCS: 36415; 71045; 72131; 73700; 80048; 80053; 80076; 80162; 83880; 84436; 84443; 85025; 85027; 85049; 85055; 85610; 85730; 87426; 87486; 87581; 87633; 87798; 90935; 93005; 93041; 94760; 96365; 96366; 97116; 97161; 97165; 97530; 99285; G0257; G0378; J1815

== ENCOUNTER → 2024-01-20 | Outpatient (REF) ==
[~2024-01-20] MED LIST changes: +DICL100G10 TOP; +ROSU20TA61 PO
[2024-01-20 09:46] LABS: HEMATOCRIT 28.7 % (36.0-47.0); HEMOGLOBIN 9.7 g/dl (12.0-15.5); MEAN CORPUSCULAR HEMOGLOBIN 32.7 pg (27.0-33.0); MEAN CORPUSCULAR HGB CONC 33.8 g/dl (32.0-36.5); MEAN CORPUSCULAR VOLUME 96.6 fl (80.0-96.0); PLATELET COUNT, AUTOMATED 105 10^3/uL (150-450); RED BLOOD COUNT 2.97 10^6/uL (4.00-5.40); WHITE BLOOD COUNT 4.6 10^3/uL (4.0-10.0)
[2024-01-20 10:09] LABS: CALCIUM LEVEL 8.7 MG/DL (8.3-10.6); CREATININE FOR GFR 6.48 MG/DL (0.55-1.30); DIGOXIN LEVEL 1.2 NG/ML (0.8-2.0); GLOMERULAR FILTRATION RATE 6.8 (>45)
== END ==
PROVIDERS: ATTEND Physician Assistant
DX: I48.91 Unspecified atrial fibrillation (principal)

== ENCOUNTER → 2024-01-25 | Outpatient (CLI) | payer OTHER, MEDICAID ==
[~2024-01-25] MED LIST changes: +GASTROGRAFIN SOLUTION 30ML As Ordered ONE; +ISOVUE-370 76% 100ML VIAL As Ordered ONE
== END ==
LOC: M RAD 08:20
PROVIDERS: ATTEND Internal Medicine
DX: R10.9 Unspecified abdominal pain (principal); K74.60 Unspecified cirrhosis of liver; R16.1 Splenomegaly, not elsewhere classified
CPT/HCPCS: 74177; 87486; 87581; 87633; 87798; Q9963; Q9967

== ENCOUNTER → 2024-01-26 | Outpatient (REF) ==
[~2024-01-26] MED LIST changes: -GASTROGRAFIN SOLUTION 30ML As Ordered ONE; -ISOVUE-370 76% 100ML VIAL As Ordered ONE
== END ==
LOC: SKLAB2 07:09
PROVIDERS: ATTEND Internal Medicine
DX: R06.02 Shortness of breath (principal); R05.9 Cough, unspecified

== ENCOUNTER → 2024-01-27 | Outpatient (REF) ==
[2024-01-27 11:52] LABS: HEMATOCRIT 30.4 % (36.0-47.0); HEMOGLOBIN 9.8 g/dl (12.0-15.5); MEAN CORPUSCULAR HEMOGLOBIN 32.7 pg (27.0-33.0); MEAN CORPUSCULAR HGB CONC 32.2 g/dl (32.0-36.5); MEAN CORPUSCULAR VOLUME 101.3 fl (80.0-96.0); WHITE BLOOD COUNT 7.9 10^3/uL (4.0-10.0)
[2024-01-27 12:25] LABS: CALCIUM LEVEL 8.8 MG/DL (8.3-10.6); CREATININE FOR GFR 5.57 MG/DL (0.55-1.30); DIGOXIN LEVEL 1.4 NG/ML (0.8-2.0); GLOMERULAR FILTRATION RATE 8.1 (>45); POTASSIUM SERUM 3.8 MMOL/L (3.5-5.1)
[2024-01-27 12:32] LABS: PLATELET COUNT, AUTOMATED 92 10^3/uL (150-450)
== END ==
PROVIDERS: ATTEND Physician Assistant
DX: I48.91 Unspecified atrial fibrillation (principal)

== ENCOUNTER 2024-02-11 03:48 | Emergency (ER) | payer OTHER, MEDICAID ==
[~2024-02-11] VITALS: Ht 162.6 cm; Wt 69.5 kg
[2024-02-11 04:15] VITALS: BP 112/57; TEMP 97.6; O2SAT 98
== END 2024-02-11 04:38 | disposition left against medical advice (07) ==
LOC: EDBD 03:48 → M ED 03:48
DX: Z53.21 Procedure and treatment not carried out due to patient leaving prior to being seen by health care provider (principal)

== ENCOUNTER 2024-02-11 11:44 | Observation (INO) | payer OTHER, MEDICAID ==
[~2024-02-11] VITALS: Ht 154.9 cm; Wt 73.9 kg
[2024-02-11] MEDS: predniSONE 20 MG TAB PO SCH (09:00)
[2024-02-11 12:50] LABS: BASO % 0.5 % (0.0-1.0); HEMOGLOBIN 9.9 g/dl (12.0-15.5); LYMPH # 0.6 10^3/uL (1.5-5.0); LYMPH % 7.9 % (24.0-44.0); MEAN CORPUSCULAR HEMOGLOBIN 33.7 pg (27.0-33.0); MEAN CORPUSCULAR HGB CONC 30.9 g/dl (32.0-36.5); MEAN CORPUSCULAR VOLUME 108.8 fl (80.0-96.0); MONO # 0.5 10^3/uL (0.0-0.8); MONO % 6.9 % (2.0-8.0); NEUTROPHILS # 6.2 10^3/uL (1.5-8.5); NEUTROPHILS % 84.2 % (36.0-66.0); RED BLOOD COUNT 2.94 10^6/uL (4.00-5.40); WHITE BLOOD COUNT 7.4 10^3/uL (4.0-10.0)
[2024-02-11 13:08] LABS: PLATELET COUNT, AUTOMATED 92 10^3/uL (150-450)
[2024-02-11 13:11] LABS: CK-MB VALUE MASS < 1.0 NG/ML (<3.6)
[2024-02-11 13:14] LABS: CPK CREATINE PHOSPHOKINASE 22 U/L (34-145); MB/CK RELATIVE INDEX 4.54 (< OR =4)
[2024-02-11 13:15] LABS: ALBUMIN 3.7 G/DL (3.2-5.2); ALKALINE PHOSPHATASE 259 U/L (46-116); ALT/SGPT 13 U/L (7.0-40); AST/SGOT 9 U/L (<34); BILIRUBIN,DIRECT 0.2 MG/DL (<0.4); BILIRUBIN,TOTAL 0.4 MG/DL (0.3-1.2); BLOOD UREA NITROGEN 21 MG/DL (9-23); CALCIUM LEVEL 8.3 MG/DL (8.3-10.6); CARBON DIOXIDE LEVEL 34 MMOL/L (20-31); CHLORIDE LEVEL 98 MMOL/L (98-107); CREATININE FOR GFR 6.07 MG/DL (0.55-1.30); GLOMERULAR FILTRATION RATE 7.3 (>45); GLUCOSE, FASTING 130 MG/DL (74-106); POTASSIUM SERUM 4.4 MMOL/L (3.5-5.1); SODIUM LEVEL 140 MMOL/L (136-145)
[2024-02-11 14:02] LABS: CK-MB VALUE MASS < 1.0 NG/ML (<3.6)
[2024-02-11 14:12] LABS: CPK CREATINE PHOSPHOKINASE 33 U/L (34-145); MB/CK RELATIVE INDEX 3.03 (< OR =4)
[2024-02-11 16:03] LABS: CK-MB VALUE MASS < 1.0 NG/ML (<3.6)
[2024-02-11 16:07] LABS: CPK CREATINE PHOSPHOKINASE 23 U/L (34-145); MB/CK RELATIVE INDEX 4.34 (< OR =4)
[2024-02-11 17:02] VITALS: O2SAT 93
[2024-02-11] MEDS: IPRATROPIUM 0.5MG/ALBUTEROL 2.5MG INH SOL UD 3ML (DUONEB) NEB ONE (17:17)
[2024-02-11] MEDS ORDERED: ALBUTEROL SULFATE 2.5MG/0.5ML INH NEB SOLN NEB PRN (18:50)
[2024-02-11] MEDS ORDERED: MOM 30ML SUSPENSION UDC PO PRN (18:50)
[2024-02-11] MEDS ORDERED: ACETAMINOPHEN TAB 650MG DOSE (2X325MG) PO PRN (18:50)
[2024-02-11] MEDS ORDERED: MAALOX 30 ML SUSP *UDC PO PRN (18:50)
[2024-02-11] MEDS ORDERED: DEXTROSE 50% 50ML SYRINGE IV PRN (18:55)
[2024-02-11] MEDS ORDERED: GLUCOSE 4 GM CHEW PO PRN (18:55)
[2024-02-11] MEDS ORDERED: GLUCAGON INJ 1MG VIAL SC PRN (18:55)
[2024-02-11] MEDS ORDERED: HOME MED LIST COMPLETE! XX SCH (19:00)
[2024-02-11] MEDS: IPRATROPIUM 0.5MG/ALBUTEROL 2.5MG INH SOL UD 3ML (DUONEB) NEB SCH (20:34)
[2024-02-11 22:25] VITALS: BP 110/53; TEMP 97.5; O2SAT 95
[2024-02-11] MEDS: CYCLOBENZAPRINE 5MG TABLET PO PRN (23:19)
[2024-02-11] MEDS: traZODone 100 MG TAB PO SCH (23:19)
[2024-02-11] MEDS: DOCUSATE SODIUM 100MG CAPSULE PO SCH (23:19)
[2024-02-11] MEDS: diazePAM 2 MG TAB PO PRN (23:20)
[2024-02-11] MEDS: INSULIN LISPRO (NovoLOG) PER UNIT SC SCH (23:21)
[2024-02-12] MEDS: INSULIN LISPRO (NovoLOG) PER UNIT SC SCH (07:30)
[2024-02-12] MEDS: SUCROFERRIC OXYHYDROXIDE 500MG CHEW TAB (VELPHORO) PO SCH (08:00)
[2024-02-12] MEDS ORDERED: predniSONE 20 MG TAB As Ordered ONE (08:05)
[2024-02-12] MEDS ORDERED: INSULIN LISPRO (NovoLOG) PER UNIT As Ordered ONE (08:06)
[2024-02-12 12:00] VITALS: BP 111/56; TEMP 97.5; O2SAT 95
[2024-02-12] MEDS ORDERED: SUCROFERRIC OXYHYDROXIDE 500MG CHEW TAB (VELPHORO) As Ordered ONE (12:11)
[2024-02-12] MEDS: OMEPRAZOLE 20MG CAP PO SCH (14:51)
[2024-02-12 15:21] LABS: ALBUMIN 3.7 G/DL (3.2-5.2); ALKALINE PHOSPHATASE 252 U/L (46-116); ALT/SGPT 12 U/L (7.0-40); AST/SGOT < 8 U/L (<34); BILIRUBIN,TOTAL 0.3 MG/DL (0.3-1.2); BLOOD UREA NITROGEN 38 MG/DL (9-23); CALCIUM LEVEL 9.1 MG/DL (8.3-10.6); CARBON DIOXIDE LEVEL 32 MMOL/L (20-31); CHLORIDE LEVEL 97 MMOL/L (98-107); CREATININE FOR GFR 7.68 MG/DL (0.55-1.30); GLOMERULAR FILTRATION RATE 5.6 (>45); GLUCOSE, FASTING 150 MG/DL (74-106); MAGNESIUM LEVEL 1.9 MG/DL (1.8-2.4); POTASSIUM SERUM 4.7 MMOL/L (3.5-5.1); SODIUM LEVEL 136 MMOL/L (136-145); TOTAL PROTEIN 7.2 G/DL (5.7-8.2)
[2024-02-12 16:46] LABS: BASO % 0.1 % (0.0-1.0); HEMATOCRIT 31.6 % (36.0-47.0); HEMOGLOBIN 9.9 g/dl (12.0-15.5); LYMPH # 0.6 10^3/uL (1.5-5.0); LYMPH % 9.5 % (24.0-44.0); MEAN CORPUSCULAR HEMOGLOBIN 33.6 pg (27.0-33.0); MEAN CORPUSCULAR HGB CONC 31.3 g/dl (32.0-36.5); MEAN CORPUSCULAR VOLUME 107.1 fl (80.0-96.0); MONO # 0.5 10^3/uL (0.0-0.8); MONO % 7.3 % (2.0-8.0); NEUTROPHILS # 5.6 10^3/uL (1.5-8.5); NEUTROPHILS % 82.4 % (36.0-66.0); RED BLOOD COUNT 2.95 10^6/uL (4.00-5.40); WHITE BLOOD COUNT 6.7 10^3/uL (4.0-10.0)
[2024-02-12 16:47] LABS: PLATELET COUNT, AUTOMATED 97 10^3/uL (150-450)
[2024-02-12 20:00] VITALS: BP 114/60; TEMP 97.5; O2SAT 95
[2024-02-13 04:00] VITALS: BP 112/60; TEMP 97.9; O2SAT 94
[2024-02-13] MEDS ORDERED: SODIUM CHLORIDE 0.9% 1000ML IV PRN (06:00)
[2024-02-13] MEDS ORDERED: LIDOCAINE 1% SDV 5ML VIAL SC PRN (06:00)
[2024-02-13] MEDS ORDERED: HEPARIN 1,000UNITS/ML 10ML VIAL (FOR RADIOLOGY & DIALYSIS ONLY) IV PRN (06:00)
[2024-02-13] MEDS: HEPARIN 1,000UNITS/ML 10ML VIAL (FOR RADIOLOGY & DIALYSIS ONLY) XX SCH (09:08)
[2024-02-13] MEDS: MIDODRINE 5 MG TAB PO SCH (10:47)
[2024-02-13] MEDS: DARBEPOETIN 100MCG/0.5ML *DIALYSIS* SYRINGE IV SCH (11:15)
[2024-02-13 12:37] VITALS: BP 99/59; TEMP 97.9
[2024-02-13] MEDS ORDERED: PRED20TA PO (13:16)
[2024-02-13] MEDS ORDERED: ASPIRIN ENTERIC 325MG TAB PO SCH (21:00)
[2024-02-13] MEDS ORDERED: LEVEMIR (INSULIN DETEMIR) 1 UNITS/0.01ML SC SCH (21:00)
[2024-02-13] MEDS ORDERED: ROSUVASTATIN 10 MG TAB (CRESTOR) PO SCH (21:00)
[2024-02-14] MEDS ORDERED: DIGOXIN 0.125 MG TAB PO SCH (09:00)
== END 2024-02-13 15:20 | disposition home or self-care (01) ==
LOC: EDUNIT# 11:44 → M ED 11:44 → EDBD 11:44 → M ED INP 11:45 → M MS5PR 22:25
PROVIDERS: ADMIT Internal Medicine; ATTEND Hospitalist
DX: J44.1 Chronic obstructive pulmonary disease with (acute) exacerbation (principal); N18.6 End stage renal disease; D63.1 Anemia in chronic kidney disease; E78.5 Hyperlipidemia, unspecified; E11.9 Type 2 diabetes mellitus without complications; I48.91 Unspecified atrial fibrillation; Z79.82 Long term (current) use of aspirin; K21.9 Gastro-esophageal reflux disease without esophagitis; E66.9 Obesity, unspecified; D69.6 Thrombocytopenia, unspecified; R29.6 Repeated falls; I95.89 Other hypotension; M54.50 Low back pain, unspecified; Z79.899 Other long term (current) drug therapy; Z88.8 Allergy status to other drugs, medicaments and biological substances
CPT/HCPCS: 71045; 80048; 80053; 80076; 82550; 82553; 83735; 84100; 84484; 85025; 85049; 85055; 87486; 87581; 87633; 87798; 90935; 93005; 93041; 94640; 94760; 99285; G0378; J0882; J1815; J7512

== ENCOUNTER 2024-02-24 20:26 | Inpatient (IN) | payer OTHER, MEDICAID ==
[~2024-02-24] VITALS: Ht 154.9 cm; Wt 74.2 kg
[2024-02-24 21:09] LABS: VENOUS BASE EXCESS 4.2 (-2.0-2.0); VENOUS HCO3 30.8 MMOL/L (23.0-27.0); VENOUS O2 SATURATION 58.8 % (60.0-80.0); VENOUS PARTIAL PRESSURE CO2 56.6 mmHg (38.0-50.0); VENOUS PH 7.354 UNITS (7.330-7.430); VENOUS STANDARD HCO3 27.4 MMOL/L; VENOUS TOTAL CO2 32.6 MMOL/L (24.0-28.0)
[2024-02-24] MEDS: MECLIZINE 25 MG TABLET PO ONE (21:16)
[2024-02-24] MEDS: methylPREDNISolone 125MG 2ML VIAL IV ONE (21:16)
[2024-02-24 21:18] LABS: BASO % 0.3 % (0.0-1.0); EOS # 0.3 10^3/uL (0.0-0.5); EOS % 3.2 % (0.0-3.0); HEMATOCRIT 32.1 % (36.0-47.0); LYMPH # 0.8 10^3/uL (1.5-5.0); LYMPH % 9.8 % (24.0-44.0); MEAN CORPUSCULAR HEMOGLOBIN 33.4 pg (27.0-33.0); MEAN CORPUSCULAR HGB CONC 31.2 g/dl (32.0-36.5); MEAN CORPUSCULAR VOLUME 107.4 fl (80.0-96.0); MONO # 0.6 10^3/uL (0.0-0.8); NEUTROPHILS % 78.2 % (36.0-66.0); RED BLOOD COUNT 2.99 10^6/uL (4.00-5.40); WHITE BLOOD COUNT 7.7 10^3/uL (4.0-10.0)
[2024-02-24 21:20] LABS: PLATELET COUNT, AUTOMATED 83 10^3/uL (150-450)
[2024-02-24] MEDS: IPRATROPIUM 0.5MG/ALBUTEROL 2.5MG INH SOL UD 3ML (DUONEB) NEB ONE (21:20)
[2024-02-24 21:41] LABS: CK-MB VALUE MASS < 1.0 NG/ML (<3.6)
[2024-02-24 21:43] LABS: ALBUMIN 3.4 G/DL (3.2-5.2); ALKALINE PHOSPHATASE 246 U/L (46-116); ALT/SGPT 13 U/L (7.0-40); AST/SGOT 11 U/L (<34); BILIRUBIN,DIRECT < 0.1 MG/DL (<0.4); BILIRUBIN,TOTAL 0.2 MG/DL (0.3-1.2); BLOOD UREA NITROGEN 32 MG/DL (9-23); CALCIUM LEVEL 8.1 MG/DL (8.3-10.6); CARBON DIOXIDE LEVEL 31 MMOL/L (20-31); CHLORIDE LEVEL 99 MMOL/L (98-107); CREATININE FOR GFR 7.64 MG/DL (0.55-1.30); DIGOXIN LEVEL 1.7 NG/ML (0.8-2.0); GLOMERULAR FILTRATION RATE 5.6 (>45); GLUCOSE, FASTING 194 MG/DL (74-106); POTASSIUM SERUM 4.1 MMOL/L (3.5-5.1); SODIUM LEVEL 139 MMOL/L (136-145); TOTAL PROTEIN 6.5 G/DL (5.7-8.2)
[2024-02-24 21:44] LABS: CPK CREATINE PHOSPHOKINASE 20 U/L (34-145)
[2024-02-24 22:28] LABS: CK-MB VALUE MASS < 1.0 NG/ML (<3.6)
[2024-02-24 22:36] LABS: CPK CREATINE PHOSPHOKINASE 20 U/L (34-145)
[2024-02-24] MEDS: ONDANSETRON 4MG 2ML VIAL IV ONE (23:27)
[2024-02-24] MEDS: diazePAM 10MG/2ML SYRINGE IV ONE (23:29)
[2024-02-25] VITALS (9 sets, daily range): BP systolic 113–135; BP diastolic 54–98; TEMP 97.2–97.7; O2SAT 89–97
[2024-02-25] MEDS: guaiFENesin ER TABLET 600 MG TAB PO ONE (01:45)
[2024-02-25] MEDS ORDERED: GLUCAGON INJ 1MG VIAL SC PRN (02:30)
[2024-02-25] MEDS ORDERED: DEXTROSE 50% 50ML SYRINGE IV PRN (02:30)
[2024-02-25] MEDS ORDERED: GLUCOSE 4 GM CHEW PO PRN (02:30)
[2024-02-25] MEDS ORDERED: MECLIZINE 12.5 MG TAB PO PRN (03:20)
[2024-02-25 03:49] LABS: MAGNESIUM LEVEL 1.6 MG/DL (1.8-2.4); PHOSPHORUS LEVEL 3.6 MG/DL (2.4-5.1)
[2024-02-25] MEDS ORDERED: HYDR-3363 PO (03:52)
[2024-02-25] MEDS ORDERED: HOME MED LIST COMPLETE! XX SCH (03:55)
[2024-02-25] MEDS: methylPREDNISolone 125MG 2ML VIAL IV SCH ×2 (05:00→05:36)
[2024-02-25] MEDS: AZITHROMYCIN INJ 500 MG, VIAL MATE ADAPTER 1 EACH in NS 250 ML IV SCH (05:30)
[2024-02-25] MEDS ORDERED: SODIUM CHLORIDE 0.9% 1000ML IV PRN (06:10)
[2024-02-25] MEDS ORDERED: LIDOCAINE 1% SDV 5ML VIAL SC PRN (06:10)
[2024-02-25] MEDS ORDERED: HEPARIN 1,000UNITS/ML 10ML VIAL (FOR RADIOLOGY & DIALYSIS ONLY) XX SCH (06:10)
[2024-02-25] MEDS: INSULIN LISPRO (NovoLOG) PER UNIT SC SCH ×2 (07:27→20:29)
[2024-02-25] MEDS: DOCUSATE SODIUM 100MG CAPSULE PO SCH (07:42)
[2024-02-25] MEDS: DOXYCYCLINE HYCLATE 100MG TABLET PO SCH (07:42)
[2024-02-25] MEDS: FLUTICASONE PROP 0.05% NASAL SPRAY 16 GM (FLONASE) NARES SCH (07:42)
[2024-02-25] MEDS: PANTOPRAZOLE 40MG VIAL IV SCH (07:42)
[2024-02-25] MEDS: MAGNESIUM OXIDE 400MG TAB (MAG-OX) PO ONE (07:42)
[2024-02-25] MEDS ORDERED: IPRATROPIUM 0.5MG/ALBUTEROL 2.5MG INH SOL UD 3ML (DUONEB) NEB SCH (08:00)
[2024-02-25] MEDS: HEPARIN 1,000UNITS/ML 10ML VIAL (FOR RADIOLOGY & DIALYSIS ONLY) IV PRN (08:58)
[2024-02-25] MEDS: CINACALCET 30 MG TAB (SENSIPAR) PO SCH (09:00)
[2024-02-25] MEDS: IPRATROPIUM 0.5MG/ALBUTEROL 2.5MG INH SOL UD 3ML (DUONEB) NEB SCH (10:00)
[2024-02-25] MEDS: CALCITRIOL 0.25 MCG CAP (S0169) PO SCH (12:43)
[2024-02-25] MEDS ORDERED: diazePAM 2 MG TAB PO PRN (14:45)
[2024-02-25] MEDS: MIDODRINE 5 MG TAB PO SCH (16:12)
[2024-02-25] MEDS: VANCOMYCIN HCL 1,000 MG, VIAL MATE ADAPTER 1 EACH in NS 250 ML IV SCH (16:12)
[2024-02-25] MEDS: VANCOMYCIN HCL 500 MG in D5W MINI-BAG PLUS 100 ML IV ONE (17:16)
[2024-02-25] MEDS: SUCROFERRIC OXYHYDROXIDE 500MG CHEW TAB (VELPHORO) PO SCH (17:16)
[2024-02-25] MEDS: ROSUVASTATIN 10 MG TAB (CRESTOR) PO SCH (20:27)
[2024-02-25] MEDS: traZODone 100 MG TAB PO SCH (20:28)
[2024-02-25] MEDS: METOPROLOL TARTRATE 100MG TAB PO SCH (20:28)
[2024-02-26] VITALS (23 sets, daily range): BP systolic 117–133; BP diastolic 54–72; TEMP 97–97.9; O2SAT 87–99
[2024-02-26 06:23] LABS: HEMOGLOBIN 9.8 g/dl (12.0-15.5); MEAN CORPUSCULAR HEMOGLOBIN 33.2 pg (27.0-33.0); MEAN CORPUSCULAR HGB CONC 30.6 g/dl (32.0-36.5); MEAN CORPUSCULAR VOLUME 108.5 fl (80.0-96.0); RED BLOOD COUNT 2.95 10^6/uL (4.00-5.40)
[2024-02-26 06:28] LABS: PLATELET COUNT, AUTOMATED 86 10^3/uL (150-450)
[2024-02-26 06:43] LABS: VANCOMYCIN RANDOM 19.6 UG/ML
[2024-02-26 06:51] LABS: PROCALCITONIN 0.62 ng/ml
[2024-02-26 07:09] LABS: ALBUMIN 3.3 G/DL (3.2-5.2); ALKALINE PHOSPHATASE 255 U/L (46-116); ALT/SGPT 11 U/L (7.0-40); AST/SGOT < 8 U/L (<34); BILIRUBIN,TOTAL 0.2 MG/DL (0.3-1.2); BLOOD UREA NITROGEN 35 MG/DL (9-23); CALCIUM LEVEL 8.9 MG/DL (8.3-10.6); CARBON DIOXIDE LEVEL 26 MMOL/L (20-31); CHLORIDE LEVEL 100 MMOL/L (98-107); CREATININE FOR GFR 5.33 MG/DL (0.55-1.30); GLOMERULAR FILTRATION RATE 8.5 (>45); GLUCOSE, FASTING 489 MG/DL (74-106); MAGNESIUM LEVEL 1.9 MG/DL (1.8-2.4); POTASSIUM SERUM 5.3 MMOL/L (3.5-5.1); SODIUM LEVEL 135 MMOL/L (136-145); TOTAL PROTEIN 6.5 G/DL (5.7-8.2)
[2024-02-26] MEDS: BUDESONIDE 0.5 MG/2 ML INHALATION SUSPENSION NEB SCH (07:21)
[2024-02-26] MEDS: OMEPRAZOLE 20MG CAP PO SCH (07:42)
[2024-02-26] MEDS: AZITHROMYCIN 250MG TABLET PO SCH (07:42)
[2024-02-26] MEDS: HumuLIN R (REGULAR) INSULIN (NovoLIN R) **100U/ML** PER UNIT IV STA ×2 (07:43→20:21)
[2024-02-26] MEDS: DIGOXIN 0.125 MG TAB PO SCH (07:44)
[2024-02-26] MEDS: HEPARIN SOD (PORCINE) 5000UNITS/ML 1ML VIAL/SYRINGE SC SCH (07:55)
[2024-02-26 10:11] LABS: CALCIUM LEVEL 9.3 MG/DL (8.3-10.6); CREATININE FOR GFR 5.43 MG/DL (0.55-1.30); GLOMERULAR FILTRATION RATE 8.3 (>45); POTASSIUM SERUM 5.3 MMOL/L (3.5-5.1)
[2024-02-26] MEDS: PATIROMER SORBITEX CALCIUM 8.4 GM POWDER PACKET (VELTASSA) PO ONE (11:19)
[2024-02-26] MEDS: guaiFENesin ER TABLET 600 MG TAB PO SCH (11:19)
[2024-02-26] MEDS: PSEUDOEPHEDRINE 30 MG TAB PO PRN (17:08)
[2024-02-27] VITALS (7 sets, daily range): BP systolic 101–116; BP diastolic 50–68; TEMP 97–97.6; O2SAT 92–100
[2024-02-27] MEDS: ACETAMINOPHEN TAB 650MG DOSE (2X325MG) PO PRN (04:29)
[2024-02-27] MEDS ORDERED: LIDOCAINE 1% SDV 5ML VIAL SC PRN (06:00)
[2024-02-27] MEDS ORDERED: HEPARIN 1,000UNITS/ML 10ML VIAL (FOR RADIOLOGY & DIALYSIS ONLY) XX SCH (06:00)
[2024-02-27] MEDS ORDERED: SODIUM CHLORIDE 0.9% 1000ML IV PRN (06:00)
[2024-02-27] MEDS: ALBUTEROL SULFATE 2.5MG/0.5ML INH NEB SOLN NEB PRN (06:11)
[2024-02-27 07:24] LABS: BASO % 0.1 % (0.0-1.0); HEMATOCRIT 34.9 % (36.0-47.0); HEMOGLOBIN 10.8 g/dl (12.0-15.5); LYMPH # 0.8 10^3/uL (1.5-5.0); LYMPH % 6.4 % (24.0-44.0); MEAN CORPUSCULAR HEMOGLOBIN 33.8 pg (27.0-33.0); MEAN CORPUSCULAR HGB CONC 30.9 g/dl (32.0-36.5); MEAN CORPUSCULAR VOLUME 109.1 fl (80.0-96.0); MONO # 0.9 10^3/uL (0.0-0.8); MONO % 6.6 % (2.0-8.0); NEUTROPHILS # 11.3 10^3/uL (1.5-8.5); NEUTROPHILS % 86.1 % (36.0-66.0); WHITE BLOOD COUNT 13.1 10^3/uL (4.0-10.0)
[2024-02-27 07:42] LABS: PLATELET COUNT, AUTOMATED 91 10^3/uL (150-450)
[2024-02-27 07:56] LABS: CALCIUM LEVEL 8.8 MG/DL (8.3-10.6); CREATININE FOR GFR 6.99 MG/DL (0.55-1.30); GLOMERULAR FILTRATION RATE 6.2 (>45); MAGNESIUM LEVEL 1.8 MG/DL (1.8-2.4); POTASSIUM SERUM 4.2 MMOL/L (3.5-5.1)
[2024-02-27] MEDS: HEPARIN 1,000UNITS/ML 10ML VIAL (FOR RADIOLOGY & DIALYSIS ONLY) IV PRN (10:28)
[2024-02-27] MEDS: MOM 30ML SUSPENSION UDC PO PRN (12:31)
[2024-02-27] MEDS: predniSONE 20 MG TAB PO SCH (12:32)
[2024-02-27] MEDS: BENZONATATE 100MG CAPSULE PO SCH (16:36)
[2024-02-27] MEDS: guaiFENesin ER TABLET 600 MG TAB PO SCH (20:41)
[2024-02-28] VITALS (10 sets, daily range): BP systolic 88–126; BP diastolic 37–68; TEMP 97.2–97.5; O2SAT 93–98
[2024-02-28] MEDS: MIDODRINE 5 MG TAB PO STA (08:06)
[2024-02-28] MEDS: SODIUM CHLORIDE 0.9% 1000ML IV ONE (08:06)
[2024-02-28] MEDS: predniSONE 20 MG TAB PO SCH (08:08)
[2024-02-28 08:40] LABS: HEMATOCRIT 30.9 % (36.0-47.0); HEMOGLOBIN 9.6 g/dl (12.0-15.5); LYMPH # 0.7 10^3/uL (1.5-5.0); LYMPH % 8.2 % (24.0-44.0); MEAN CORPUSCULAR HGB CONC 31.1 g/dl (32.0-36.5); MEAN CORPUSCULAR VOLUME 106.2 fl (80.0-96.0); MONO # 0.5 10^3/uL (0.0-0.8); MONO % 6.6 % (2.0-8.0); NEUTROPHILS # 6.7 10^3/uL (1.5-8.5); NEUTROPHILS % 84.3 % (36.0-66.0); RED BLOOD COUNT 2.91 10^6/uL (4.00-5.40); WHITE BLOOD COUNT 7.9 10^3/uL (4.0-10.0)
[2024-02-28 08:43] LABS: CALCIUM LEVEL 8.2 MG/DL (8.3-10.6); CREATININE FOR GFR 4.7 MG/DL (0.55-1.30); GLOMERULAR FILTRATION RATE 9.8 (>45); POTASSIUM SERUM 4.1 MMOL/L (3.5-5.1)
[2024-02-28 08:53] LABS: PLATELET COUNT, AUTOMATED 75 10^3/uL (150-450)
[2024-02-28] MEDS: MAALOX 30 ML SUSP *UDC PO PRN (09:38)
[2024-02-29 04:18] VITALS: BP 122/62; TEMP 97.2; O2SAT 97
[2024-02-29 06:23] LABS: BASO % 0.1 % (0.0-1.0); HEMATOCRIT 29.3 % (36.0-47.0); HEMOGLOBIN 9.1 g/dl (12.0-15.5); LYMPH # 0.6 10^3/uL (1.5-5.0); LYMPH % 8.1 % (24.0-44.0); MEAN CORPUSCULAR HEMOGLOBIN 32.7 pg (27.0-33.0); MEAN CORPUSCULAR HGB CONC 31.1 g/dl (32.0-36.5); MEAN CORPUSCULAR VOLUME 105.4 fl (80.0-96.0); MONO # 0.5 10^3/uL (0.0-0.8); MONO % 5.9 % (2.0-8.0); NEUTROPHILS # 6.7 10^3/uL (1.5-8.5); NEUTROPHILS % 85.1 % (36.0-66.0); RED BLOOD COUNT 2.78 10^6/uL (4.00-5.40); WHITE BLOOD COUNT 7.9 10^3/uL (4.0-10.0)
[2024-02-29 06:42] LABS: PLATELET COUNT, AUTOMATED 73 10^3/uL (150-450)
[2024-02-29 06:43] LABS: CALCIUM LEVEL 8.4 MG/DL (8.3-10.6); CREATININE FOR GFR 6.49 MG/DL (0.55-1.30); GLOMERULAR FILTRATION RATE 6.8 (>45); MAGNESIUM LEVEL 2.2 MG/DL (1.8-2.4); POTASSIUM SERUM 4.5 MMOL/L (3.5-5.1)
[2024-02-29 08:00] VITALS: BP 124/63; TEMP 97.3; O2SAT 99
[2024-02-29] MEDS: IPRATROPIUM 0.5MG/ALBUTEROL 2.5MG INH SOL UD 3ML (DUONEB) NEB SCH (08:24)
[2024-02-29 09:00] VITALS: BP 120/62; O2SAT 96
[2024-02-29] MEDS ORDERED: BENZ-18 PO (11:55)
[2024-02-29] MEDS ORDERED: MUCI600T31 PO (11:55)
[2024-02-29] MEDS ORDERED: PRED10TA2 PO (11:55)
[2024-02-29] MEDS ORDERED: PRED20TA PO (11:58)
[2024-02-29 12:00] VITALS: BP 132/67; TEMP 97.5; O2SAT 96
[2024-02-29] MEDS ORDERED: GLUCMIS7 XX (12:35)
[2024-02-29] MEDS ORDERED: [UNRECOGNIZED DRUG - CODE] MC (12:35)
[2024-02-29] MEDS ORDERED: LANC1COM MC (12:35)
[2024-02-29] MEDS ORDERED: ULTI70PA2 XX (12:35)
[2024-03-01] MEDS ORDERED: IPRA0.00 NEB (23:02)
== END 2024-02-29 15:20 | disposition home health service (06) | DRG 190 ==
LOC: M ED 20:26 → M ED INP 02-25 02:33 → M MSPAV 02-25 04:36 → OBSVTOIN 02-26 10:34
PROVIDERS: ADMIT Family Medicine; ATTEND Student in an Organized Health Care Education/Training Program
DX: J44.1 Chronic obstructive pulmonary disease with (acute) exacerbation (principal); N18.6 End stage renal disease; I13.2 Hypertensive heart and chronic kidney disease with heart failure and with stage 5 chronic kidney disease, or end stage renal disease; L03.114 Cellulitis of left upper limb; E03.9 Hypothyroidism, unspecified; E11.22 Type 2 diabetes mellitus with diabetic chronic kidney disease; I50.9 Heart failure, unspecified; J45.909 Unspecified asthma, uncomplicated; I27.20 Pulmonary hypertension, unspecified; E11.65 Type 2 diabetes mellitus with hyperglycemia; D69.6 Thrombocytopenia, unspecified; E78.00 Pure hypercholesterolemia, unspecified; R29.6 Repeated falls; I95.89 Other hypotension; G47.33 Obstructive sleep apnea (adult) (pediatric); E87.5 Hyperkalemia; Z91.119 Patient's noncompliance with dietary regimen due to unspecified reason; M54.59 Other low back pain; Z79.899 Other long term (current) drug therapy; Z79.52 Long term (current) use of systemic steroids; Z79.82 Long term (current) use of aspirin; Z88.8 Allergy status to other drugs, medicaments and biological substances; D63.1 Anemia in chronic kidney disease; K21.9 Gastro-esophageal reflux disease without esophagitis; F41.9 Anxiety disorder, unspecified; F32.A Depression, unspecified; I48.91 Unspecified atrial fibrillation

== ENCOUNTER 2024-03-01 17:41 | Emergency (ER) | payer OTHER, MEDICAID ==
[~2024-03-01] VITALS: Ht 154.9 cm; Wt 77.0 kg
[~2024-03-01 17:41] MED LIST changes: +BENZ-18 PO; +GLUCMIS7 XX; +HYDR-3363 PO; +LANC1COM MC; +ULTI70PA2 XX; +[UNRECOGNIZED DRUG - CODE] MC
[2024-03-01] MEDS: IPRATROPIUM 0.5MG/ALBUTEROL 2.5MG INH SOL UD 3ML (DUONEB) NEB ONE (21:00)
[2024-03-01] MEDS: IPRATROPIUM 0.5MG/ALBUTEROL 2.5MG INH SOL UD 3ML (DUONEB) NEB PRN (21:00)
[2024-03-01 21:02] LABS: VENOUS BASE EXCESS 2.1 (-2.0-2.0); VENOUS HCO3 27.3 MMOL/L (23.0-27.0); VENOUS O2 SATURATION 87.3 % (60.0-80.0); VENOUS PARTIAL PRESSURE O2 53.5 mmHg (30.0-50.0); VENOUS PH 7.401 UNITS (7.330-7.430); VENOUS STANDARD HCO3 26.2 MMOL/L; VENOUS TOTAL CO2 28.7 MMOL/L (24.0-28.0)
[2024-03-01 21:12] VITALS: O2SAT 94
[2024-03-01 21:14] LABS: BASO % 0.1 % (0.0-1.0); HEMATOCRIT 30.5 % (36.0-47.0); HEMOGLOBIN 9.9 g/dl (12.0-15.5); LYMPH # 0.4 10^3/uL (1.5-5.0); LYMPH % 3.9 % (24.0-44.0); MEAN CORPUSCULAR HEMOGLOBIN 33.3 pg (27.0-33.0); MEAN CORPUSCULAR HGB CONC 32.5 g/dl (32.0-36.5); MEAN CORPUSCULAR VOLUME 102.7 fl (80.0-96.0); MONO # 0.3 10^3/uL (0.0-0.8); MONO % 2.8 % (2.0-8.0); NEUTROPHILS # 8.4 10^3/uL (1.5-8.5); NEUTROPHILS % 92.5 % (36.0-66.0); RED BLOOD COUNT 2.97 10^6/uL (4.00-5.40); WHITE BLOOD COUNT 9.1 10^3/uL (4.0-10.0)
[2024-03-01 21:30] LABS: PLATELET COUNT, AUTOMATED 91 10^3/uL (150-450)
[2024-03-01 21:31] LABS: ALBUMIN 3.2 G/DL (3.2-5.2); ALKALINE PHOSPHATASE 216 U/L (46-116); ALT/SGPT 18 U/L (7.0-40); AST/SGOT 24 U/L (<34); BILIRUBIN,DIRECT < 0.1 MG/DL (<0.4); BILIRUBIN,TOTAL 0.3 MG/DL (0.3-1.2); BLOOD UREA NITROGEN 40 MG/DL (9-23); CALCIUM LEVEL 7.7 MG/DL (8.3-10.6); CARBON DIOXIDE LEVEL 27 MMOL/L (20-31); CHLORIDE LEVEL 98 MMOL/L (98-107); CREATININE FOR GFR 4.28 MG/DL (0.55-1.30); GLUCOSE, FASTING 294 MG/DL (74-106); SODIUM LEVEL 134 MMOL/L (136-145); TOTAL PROTEIN 6.4 G/DL (5.7-8.2)
[2024-03-01 21:32] LABS: THYROID STIMULATING HORMONE 0.384 uIU/ML (0.55-4.78)
[2024-03-01] MEDS: diazePAM 10MG/2ML SYRINGE IV ONE (22:25)
[2024-03-01] MEDS ORDERED: IPRA0.00 NEB (23:02)
[2024-03-01 23:15] VITALS: TEMP 98.2
[2024-03-01 23:30] VITALS: BP 139/64; O2SAT 97
== END 2024-03-02 00:36 | disposition home or self-care (01) ==
LOC: EDBD 17:41 → M ED 17:41
DX: J44.1 Chronic obstructive pulmonary disease with (acute) exacerbation (principal); J90 Pleural effusion, not elsewhere classified; I10 Essential (primary) hypertension; E78.5 Hyperlipidemia, unspecified; K21.9 Gastro-esophageal reflux disease without esophagitis; F41.9 Anxiety disorder, unspecified; Z79.82 Long term (current) use of aspirin; Z79.899 Other long term (current) drug therapy; Z88.8 Allergy status to other drugs, medicaments and biological substances
CPT/HCPCS: 71046; 71250; 80048; 80076; 82803; 83605; 84443; 85025; 85049; 85055; 87486; 87581; 87633; 87798; 93005; 93041; 94640; 94760; 96374; 99285; J3360

== ENCOUNTER 2024-03-04 13:32 | Observation (INO) | payer OTHER, MEDICAID ==
[~2024-03-04] VITALS: Ht 154.9 cm; Wt 76.8 kg
[~2024-03-04 13:32] MED LIST changes: +IPRA0.00 NEB
[2024-03-04 14:05] LABS: VENOUS BASE EXCESS -0.3 (-2.0-2.0); VENOUS HCO3 26.5 MMOL/L (23.0-27.0); VENOUS O2 SATURATION 59.8 % (60.0-80.0); VENOUS PARTIAL PRESSURE CO2 52.6 mmHg (38.0-50.0); VENOUS PARTIAL PRESSURE O2 33.2 mmHg (30.0-50.0); VENOUS STANDARD HCO3 23.5 MMOL/L; VENOUS TOTAL CO2 28.1 MMOL/L (24.0-28.0)
[2024-03-04 14:17] LABS: BASO % 0.2 % (0.0-1.0); HEMATOCRIT 35.4 % (36.0-47.0); HEMOGLOBIN 10.9 g/dl (12.0-15.5); LYMPH # 0.6 10^3/uL (1.5-5.0); LYMPH % 6.2 % (24.0-44.0); MEAN CORPUSCULAR HEMOGLOBIN 32.2 pg (27.0-33.0); MEAN CORPUSCULAR HGB CONC 30.8 g/dl (32.0-36.5); MEAN CORPUSCULAR VOLUME 104.4 fl (80.0-96.0); MONO # 0.4 10^3/uL (0.0-0.8); NEUTROPHILS # 8.6 10^3/uL (1.5-8.5); NEUTROPHILS % 88.6 % (36.0-66.0); PLATELET COUNT, AUTOMATED 104 10^3/uL (150-450); RED BLOOD COUNT 3.39 10^6/uL (4.00-5.40); WHITE BLOOD COUNT 9.7 10^3/uL (4.0-10.0)
[2024-03-04 14:37] LABS: BLOOD UREA NITROGEN 56 MG/DL (9-23); CALCIUM LEVEL 8.1 MG/DL (8.3-10.6); CARBON DIOXIDE LEVEL 29 MMOL/L (20-31); CHLORIDE LEVEL 98 MMOL/L (98-107); CK-MB VALUE MASS < 1.0 NG/ML (<3.6); CPK CREATINE PHOSPHOKINASE < 15 U/L (34-145); CREATININE FOR GFR 6.42 MG/DL (0.55-1.30); GLOMERULAR FILTRATION RATE 6.9 (>45); GLUCOSE, FASTING 192 MG/DL (74-106); POTASSIUM SERUM 4.4 MMOL/L (3.5-5.1); SODIUM LEVEL 136 MMOL/L (136-145)
[2024-03-04 14:46] LABS: INR 1.01; PARTIAL THROMBOPLASTIN TIME 28.1 SECONDS (24.8-34.2)
[2024-03-04 19:15] LABS: ALBUMIN 3.9 G/DL (3.2-5.2); ALKALINE PHOSPHATASE 258 U/L (46-116); ALT/SGPT 22 U/L (7.0-40); AST/SGOT 18 U/L (<34); BILIRUBIN,DIRECT < 0.1 MG/DL (<0.4); BILIRUBIN,TOTAL 0.2 MG/DL (0.3-1.2); TOTAL PROTEIN 7.3 G/DL (5.7-8.2)
[2024-03-04] MEDS ORDERED: MUCI600T31 PO (20:08)
[2024-03-04] MEDS ORDERED: IPRA0.00 INH (20:08)
[2024-03-04] MEDS ORDERED: PRED10TA2 PO (20:08)
[2024-03-04] MEDS ORDERED: HOME MED LIST COMPLETE! XX SCH (20:10)
[2024-03-04] MEDS ORDERED: CYCLOBENZAPRINE 5MG TABLET PO PRN (20:10)
[2024-03-04] MEDS ORDERED: ALBUTEROL 90 MCG/ACT 8GM HFA INHALER INH PRN (20:10)
[2024-03-04] MEDS: IPRATROPIUM 0.5MG/ALBUTEROL 2.5MG INH SOL UD 3ML (DUONEB) NEB SCH (20:10)
[2024-03-04] MEDS ORDERED: GLUCAGON INJ 1MG VIAL SC PRN (20:15)
[2024-03-04] MEDS ORDERED: DEXTROSE 50% 50ML SYRINGE IV PRN (20:15)
[2024-03-04] MEDS ORDERED: GLUCOSE 4 GM CHEW PO PRN (20:15)
[2024-03-04] MEDS: guaiFENesin 200 MG TAB PO SCH (21:15)
[2024-03-04] MEDS: ROSUVASTATIN 10 MG TAB (CRESTOR) PO SCH (21:16)
[2024-03-04] MEDS: traZODone 100 MG TAB PO SCH (21:16)
[2024-03-04] MEDS: METOPROLOL TARTRATE 100MG TAB PO SCH (21:16)
[2024-03-04] MEDS: INSULIN LISPRO (NovoLOG) PER UNIT SC SCH (21:21)
[2024-03-05 04:00] VITALS: BP 116/57; TEMP 96.6; O2SAT 100
[2024-03-05] MEDS: MIDODRINE 5 MG TAB PO SCH (05:06)
[2024-03-05] MEDS: IPRATROPIUM 0.5MG/ALBUTEROL 2.5MG INH SOL UD 3ML (DUONEB) NEB PRN (05:18)
[2024-03-05] MEDS ORDERED: HEPARIN 1,000UNITS/ML 10ML VIAL (FOR RADIOLOGY & DIALYSIS ONLY) IV PRN (06:00)
[2024-03-05] MEDS ORDERED: SODIUM CHLORIDE 0.9% 1000ML IV PRN (06:00)
[2024-03-05] MEDS ORDERED: LIDOCAINE 1% SDV 5ML VIAL SC PRN (06:00)
[2024-03-05] MEDS: OMEPRAZOLE 20MG CAP PO SCH (07:34)
[2024-03-05] MEDS: ASPIRIN ENTERIC 325MG TAB PO SCH (07:35)
[2024-03-05] MEDS: INSULIN LISPRO (NovoLOG) PER UNIT SC SCH (07:36)
[2024-03-05] MEDS: SUCROFERRIC OXYHYDROXIDE 500MG CHEW TAB (VELPHORO) PO SCH (07:36)
[2024-03-05 07:37] VITALS: BP 118/56; TEMP 97.3; O2SAT 100
[2024-03-05] MEDS: TIOTROPIUM INHALER/CAPSULE (SPIRIVA) INH SCH (07:52)
[2024-03-05 08:13] LABS: BASO % 0.1 % (0.0-1.0); EOS % 0.1 % (0.0-3.0); HEMATOCRIT 31.2 % (36.0-47.0); HEMOGLOBIN 10.1 g/dl (12.0-15.5); LYMPH # 0.7 10^3/uL (1.5-5.0); LYMPH % 6.5 % (24.0-44.0); MEAN CORPUSCULAR HGB CONC 32.4 g/dl (32.0-36.5); MONO # 0.6 10^3/uL (0.0-0.8); MONO % 5.2 % (2.0-8.0); NEUTROPHILS # 9.4 10^3/uL (1.5-8.5); NEUTROPHILS % 86.5 % (36.0-66.0); PLATELET COUNT, AUTOMATED 106 10^3/uL (150-450); RED BLOOD COUNT 3.06 10^6/uL (4.00-5.40); WHITE BLOOD COUNT 10.9 10^3/uL (4.0-10.0)
[2024-03-05] MEDS: HEPARIN 1,000UNITS/ML 10ML VIAL (FOR RADIOLOGY & DIALYSIS ONLY) XX SCH (08:40)
[2024-03-05 08:43] LABS: HEMOGLOBIN A1c 6.8 % (4.0-6.0)
[2024-03-05 08:47] LABS: DIGOXIN LEVEL 2.2 NG/ML (0.8-2.0)
[2024-03-05 08:48] LABS: ALBUMIN 3.4 G/DL (3.2-5.2); CREATININE FOR GFR 7.78 MG/DL (0.55-1.30); GLOMERULAR FILTRATION RATE 5.5 (>45); MAGNESIUM LEVEL 1.8 MG/DL (1.8-2.4); PHOSPHORUS LEVEL 4.8 MG/DL (2.4-5.1); POTASSIUM SERUM 4.7 MMOL/L (3.5-5.1)
[2024-03-05 12:00] VITALS: BP 119/55; TEMP 97.3; O2SAT 99
[2024-03-05] MEDS: PREVNAR-20 VACCINE 0.5ML SYRINGE IM.IMMUN ONE (13:55)
[2024-03-05] MEDS: predniSONE 20 MG TAB PO SCH (13:57)
[2024-03-05] MEDS: ACETAMINOPHEN TAB 650MG DOSE (2X325MG) PO PRN (17:03)
[2024-03-05 21:30] VITALS: BP 102/56; TEMP 97.7; O2SAT 90
[2024-03-06 04:10] VITALS: BP 143/64; TEMP 97; O2SAT 99
[2024-03-06 06:48] LABS: BASO % 0.1 % (0.0-1.0); HEMATOCRIT 29.1 % (36.0-47.0); HEMOGLOBIN 9.1 g/dl (12.0-15.5); LYMPH # 0.4 10^3/uL (1.5-5.0); LYMPH % 4.6 % (24.0-44.0); MEAN CORPUSCULAR HEMOGLOBIN 32.7 pg (27.0-33.0); MEAN CORPUSCULAR HGB CONC 31.3 g/dl (32.0-36.5); MEAN CORPUSCULAR VOLUME 104.7 fl (80.0-96.0); MONO # 0.5 10^3/uL (0.0-0.8); MONO % 6.3 % (2.0-8.0); NEUTROPHILS # 6.7 10^3/uL (1.5-8.5); NEUTROPHILS % 87.3 % (36.0-66.0); RED BLOOD COUNT 2.78 10^6/uL (4.00-5.40); WHITE BLOOD COUNT 7.7 10^3/uL (4.0-10.0)
[2024-03-06 07:19] LABS: ALBUMIN 3.2 G/DL (3.2-5.2); CALCIUM LEVEL 7.6 MG/DL (8.3-10.6); CREATININE FOR GFR 5.54 MG/DL (0.55-1.30); GLOMERULAR FILTRATION RATE 8.1 (>45); MAGNESIUM LEVEL 1.9 MG/DL (1.8-2.4); PHOSPHORUS LEVEL 4.7 MG/DL (2.4-5.1); POTASSIUM SERUM 4.8 MMOL/L (3.5-5.1)
[2024-03-06 07:31] LABS: PLATELET COUNT, AUTOMATED 97 10^3/uL (150-450)
[2024-03-06] MEDS: DIGOXIN 0.125 MG TAB PO SCH (08:47)
[2024-03-06] MEDS: HumuLIN N INSULIN (NovoLIN N) PER UNIT SC SCH (09:40)
[2024-03-06 12:00] VITALS: BP 122/58; TEMP 97.3; O2SAT 97
[2024-03-07 04:00] VITALS: BP 111/49; TEMP 97.2; O2SAT 97
[2024-03-07] MEDS ORDERED: LIDOCAINE 1% SDV 5ML VIAL SC PRN (06:00)
[2024-03-07] MEDS ORDERED: HEPARIN 1,000UNITS/ML 10ML VIAL (FOR RADIOLOGY & DIALYSIS ONLY) IV PRN (06:00)
[2024-03-07] MEDS ORDERED: SODIUM CHLORIDE 0.9% 1000ML IV PRN (06:00)
[2024-03-07 06:31] LABS: BASO % 0.1 % (0.0-1.0); HEMOGLOBIN 9.5 g/dl (12.0-15.5); LYMPH # 0.9 10^3/uL (1.5-5.0); LYMPH % 9.1 % (24.0-44.0); MEAN CORPUSCULAR HGB CONC 31.7 g/dl (32.0-36.5); MEAN CORPUSCULAR VOLUME 104.2 fl (80.0-96.0); MONO # 0.7 10^3/uL (0.0-0.8); MONO % 7.5 % (2.0-8.0); NEUTROPHILS # 7.9 10^3/uL (1.5-8.5); NEUTROPHILS % 81.4 % (36.0-66.0); PLATELET COUNT, AUTOMATED 102 10^3/uL (150-450); RED BLOOD COUNT 2.88 10^6/uL (4.00-5.40); WHITE BLOOD COUNT 9.7 10^3/uL (4.0-10.0)
[2024-03-07 06:43] LABS: ALBUMIN 3.3 G/DL (3.2-5.2); CALCIUM LEVEL 7.7 MG/DL (8.3-10.6); CREATININE FOR GFR 7.2 MG/DL (0.55-1.30); MAGNESIUM LEVEL 1.8 MG/DL (1.8-2.4); PHOSPHORUS LEVEL 4.5 MG/DL (2.4-5.1); POTASSIUM SERUM 4.3 MMOL/L (3.5-5.1)
[2024-03-07 07:38] VITALS: BP 128/74
[2024-03-07] MEDS: HEPARIN 1,000UNITS/ML 10ML VIAL (FOR RADIOLOGY & DIALYSIS ONLY) XX SCH (08:48)
[2024-03-07 12:07] VITALS: BP 108/53; TEMP 97.3; O2SAT 98
[2024-03-07] MEDS: LIDOCAINE 5% (LIDODERM) PATCH TD SCH (12:28)
== END 2024-03-07 14:35 | disposition home or self-care (01) ==
LOC: M ED 13:32 → M ED INP 13:33 → M MSPAV 21:30
PROVIDERS: ADMIT Student in an Organized Health Care Education/Training Program; ATTEND Student in an Organized Health Care Education/Training Program
DX: R06.09 Other forms of dyspnea (principal); J91.8 Pleural effusion in other conditions classified elsewhere; N18.6 End stage renal disease; K76.0 Fatty (change of) liver, not elsewhere classified; G62.9 Polyneuropathy, unspecified; I48.91 Unspecified atrial fibrillation; I27.0 Primary pulmonary hypertension; I50.30 Unspecified diastolic (congestive) heart failure; E78.5 Hyperlipidemia, unspecified; D63.1 Anemia in chronic kidney disease; D61.818 Other pancytopenia; J44.9 Chronic obstructive pulmonary disease, unspecified; G47.33 Obstructive sleep apnea (adult) (pediatric); E03.9 Hypothyroidism, unspecified; E04.8 Other specified nontoxic goiter; E11.9 Type 2 diabetes mellitus without complications; K21.9 Gastro-esophageal reflux disease without esophagitis; G47.00 Insomnia, unspecified; F41.9 Anxiety disorder, unspecified; F32.A Depression, unspecified; Z79.82 Long term (current) use of aspirin; Z79.899 Other long term (current) drug therapy; Z88.8 Allergy status to other drugs, medicaments and biological substances; Z23 Encounter for immunization
CPT/HCPCS: 36415; 71045; 76705; 80048; 80069; 80076; 80162; 82550; 82553; 82803; 83036; 83735; 83880; 84484; 85025; 85049; 85055; 85610; 85730; 87340; 87486; 87581; 87633; 87798; 90677; 90935; 93005; 93041; 93971; 94640; 94760; 97161; 99285; G0009; G0378; J1815; J7512

== ENCOUNTER 2024-03-17 20:21 | Emergency (ER) | payer OTHER, MEDICAID ==
[~2024-03-17] VITALS: Ht 154.9 cm; Wt 65.7 kg
[2024-03-17 20:58] LABS: BASO % 0.5 % (0.0-1.0); HEMOGLOBIN 10.4 g/dl (12.0-15.5); LYMPH % 11.2 % (24.0-44.0); MEAN CORPUSCULAR HEMOGLOBIN 33.7 pg (27.0-33.0); MEAN CORPUSCULAR HGB CONC 31.5 g/dl (32.0-36.5); MEAN CORPUSCULAR VOLUME 106.8 fl (80.0-96.0); MONO # 0.5 10^3/uL (0.0-0.8); MONO % 6.1 % (2.0-8.0); NEUTROPHILS # 7.1 10^3/uL (1.5-8.5); NEUTROPHILS % 81.5 % (36.0-66.0); RED BLOOD COUNT 3.09 10^6/uL (4.00-5.40); WHITE BLOOD COUNT 8.7 10^3/uL (4.0-10.0)
[2024-03-17 21:19] LABS: CK-MB VALUE MASS < 1.0 NG/ML (<3.6)
[2024-03-17 21:21] LABS: ALBUMIN 3.6 G/DL (3.2-5.2); ALKALINE PHOSPHATASE 329 U/L (46-116); ALT/SGPT 18 U/L (7.0-40); AST/SGOT 16 U/L (<34); BILIRUBIN,DIRECT 0.1 MG/DL (<0.4); BILIRUBIN,TOTAL 0.4 MG/DL (0.3-1.2); BLOOD UREA NITROGEN 14 MG/DL (9-23); CALCIUM LEVEL 8.6 MG/DL (8.3-10.6); CARBON DIOXIDE LEVEL 33 MMOL/L (20-31); CHLORIDE LEVEL 98 MMOL/L (98-107); CREATININE FOR GFR 4.54 MG/DL (0.55-1.30); GLOMERULAR FILTRATION RATE 10.2 (>45); GLUCOSE, FASTING 169 MG/DL (74-106); SODIUM LEVEL 135 MMOL/L (136-145); TOTAL PROTEIN 7.5 G/DL (5.7-8.2)
[2024-03-17 21:28] LABS: CPK CREATINE PHOSPHOKINASE 24 U/L (34-145); MB/CK RELATIVE INDEX 4.16 (< OR =4)
[2024-03-17] MEDS: SIMETHICONE 80MG CHEW TAB PO STA (21:53)
[2024-03-17] MEDS: BENZONATATE 100MG CAPSULE PO ONE (21:53)
[2024-03-17 22:23] LABS: PLATELET COUNT, AUTOMATED 97 10^3/uL (150-450)
[2024-03-17] MEDS: IPRATROPIUM 0.5MG/ALBUTEROL 2.5MG INH SOL UD 3ML (DUONEB) NEB ONE (22:29)
[2024-03-17] MEDS: ACETAMINOPHEN TAB 650MG DOSE (2X325MG) PO ONE (23:59)
[2024-03-18] VITALS: BP 112/56; TEMP 98; O2SAT 100
[2024-03-18] MEDS ORDERED: SIME180C25 PO (00:02)
[2024-03-18] MEDS ORDERED: BENZ200C70 PO (00:02)
== END 2024-03-18 00:39 | disposition home or self-care (01) ==
LOC: M ED 20:21
DX: R50.9 Fever, unspecified (principal); R05.9 Cough, unspecified; R14.1 Gas pain; I10 Essential (primary) hypertension; J44.9 Chronic obstructive pulmonary disease, unspecified; E78.5 Hyperlipidemia, unspecified; K21.9 Gastro-esophageal reflux disease without esophagitis; Z99.2 Dependence on renal dialysis; Z79.82 Long term (current) use of aspirin; Z79.899 Other long term (current) drug therapy; Z88.8 Allergy status to other drugs, medicaments and biological substances

== ENCOUNTER → 2024-03-24 | Outpatient (REF) | payer OTHER, MEDICAID ==
[~2024-03-24] MED LIST changes: +CEFD1CAP9 PO; +LIDO1CRE2 TOP; +SIME180C25 PO
[2024-03-24 13:17] LABS: APPEARANCE, URINE MANUAL TURBID (CLEAR); COLOR, URINE MANUAL LT YELLOW (YELLOW); PROTEIN, URINE MANUAL 3+ mg/dL (NEGATIVE)
[2024-03-24 13:18] LABS: BILIRUBIN, URINE MANUAL NEGATIVE (NEGATIVE); BLOOD URINE MANUAL POSITIVE (NEGATIVE); GLUCOSE, URINE (UA) MANUAL NEGATIVE (NEGATIVE); KETONE, URINE MANUAL NEGATIVE (NEGATIVE); LEUKOCYTE ESTERASE, URINE MAN POSITIVE (NEGATIVE); NITRITE, URINE MANUAL NEGATIVE (NEGATIVE); UROBILINOGEN, URINE MANUAL NORMAL (NORMAL); WBC, URINE TNTC /hpf (0-3)
[2024-03-24 13:19] LABS: BACTERIA, URINE LARGE AMOUNT; HYALINE CAST, URINE NONE SEEN /lpf (0-1); SQUAMOUS EPITHELIAL CELL URINE NONE SEEN /hpf (SMALL AMT)
== END ==
LOC: M SMT 12:44
PROVIDERS: ATTEND Urology
DX: N39.0 Urinary tract infection, site not specified (principal)

== ENCOUNTER 2024-03-26 00:45 | Inpatient (IN) | payer OTHER, MEDICAID ==
[~2024-03-26] VITALS: Ht 154.9 cm; Wt 78.2 kg
[~2024-03-26 00:45] MED LIST changes: -CEFD1CAP9 PO; -LIDO1CRE2 TOP
[2024-03-26 10:30] LABS: BASO % 0.6 % (0.0-1.0); HEMATOCRIT 32.3 % (36.0-47.0); LYMPH # 0.8 10^3/uL (1.5-5.0); LYMPH % 16.7 % (24.0-44.0); MEAN CORPUSCULAR HEMOGLOBIN 32.6 pg (27.0-33.0); MEAN CORPUSCULAR VOLUME 105.2 fl (80.0-96.0); MONO # 0.4 10^3/uL (0.0-0.8); MONO % 9.4 % (2.0-8.0); NEUTROPHILS # 3.4 10^3/uL (1.5-8.5); NEUTROPHILS % 72.7 % (36.0-66.0); PLATELET COUNT, AUTOMATED 104 10^3/uL (150-450); RED BLOOD COUNT 3.07 10^6/uL (4.00-5.40); WHITE BLOOD COUNT 4.7 10^3/uL (4.0-10.0)
[2024-03-26 10:57] LABS: ALBUMIN 3.4 G/DL (3.2-5.2); ALKALINE PHOSPHATASE 281 U/L (46-116); ALT/SGPT 14 U/L (7.0-40); AST/SGOT 28 U/L (<34); BILIRUBIN,DIRECT < 0.1 MG/DL (<0.4); BILIRUBIN,TOTAL 0.2 MG/DL (0.3-1.2); TOTAL PROTEIN 7.2 G/DL (5.7-8.2)
[2024-03-26] MEDS ORDERED: CEFD300C PO (11:35)
[2024-03-26] MEDS: cefTRIAXone SOD 1 GM in D5W MINI-BAG PLUS 50 ML IV ONE (11:42)
[2024-03-26 11:43] LABS: BLOOD UREA NITROGEN 29 MG/DL (9-23); CALCIUM LEVEL 8.6 MG/DL (8.3-10.6); CARBON DIOXIDE LEVEL 31 MMOL/L (20-31); CHLORIDE LEVEL 102 MMOL/L (98-107); CREATININE FOR GFR 7.44 MG/DL (0.55-1.30); GLOMERULAR FILTRATION RATE 5.8 (>45); GLUCOSE, FASTING 166 MG/DL (74-106); POTASSIUM SERUM 5.2 MMOL/L (3.5-5.1); SODIUM LEVEL 140 MMOL/L (136-145)
[2024-03-26] MEDS ORDERED: PATIROMER SORBITEX CALCIUM 8.4 GM POWDER PACKET (VELTASSA) PO ONE (11:55)
[2024-03-26] MEDS: PATIROMER SORBITEX CALCIUM 8.4 GM POWDER PACKET (VELTASSA) PO ONE (13:05)
[2024-03-26] MEDS ORDERED: HOME MED LIST COMPLETE! XX SCH (14:35)
[2024-03-26] MEDS ORDERED: diazePAM 2 MG TAB PO PRN (14:40)
[2024-03-26] MEDS ORDERED: LEVALBUTEROL HFA 45MCG/ACT 15GM INHALER INH PRN (14:45)
[2024-03-26] MEDS: MIDODRINE 5 MG TAB PO SCH (17:06)
[2024-03-26] MEDS: ASPIRIN ENTERIC 325MG TAB PO SCH (17:07)
[2024-03-26] MEDS: OMEPRAZOLE 20MG CAP PO SCH (17:07)
[2024-03-26] MEDS: CYCLOBENZAPRINE 5MG TABLET PO PRN (18:19)
[2024-03-26] MEDS: SUCROFERRIC OXYHYDROXIDE 500MG CHEW TAB (VELPHORO) PO SCH (18:19)
[2024-03-26] MEDS: NORCO, ANEXSIA 5/325MG TABLET (HYDROcodone/ACETAMINOPHEN) PO ONE (18:31)
[2024-03-26] MEDS: FORMOTEROL FUMARATE 20 MCG/2 ML INHALATION SOLUTION (PERFOROMIST) INH SCH (20:00)
[2024-03-26 21:43] VITALS: BP 130/70; TEMP 96.8; O2SAT 98
[2024-03-26] MEDS: traZODone 100 MG TAB PO SCH (21:54)
[2024-03-26] MEDS: ROSUVASTATIN 10 MG TAB (CRESTOR) PO SCH (21:55)
[2024-03-26] MEDS: METOPROLOL TARTRATE 100MG TAB PO SCH (21:57)
[2024-03-27 04:54] VITALS: BP 117/63; TEMP 96.8; O2SAT 100
[2024-03-27] MEDS: TIOTROPIUM INHALER/CAPSULE (SPIRIVA) INH SCH (08:03)
[2024-03-27] MEDS: DIGOXIN 0.125 MG TAB PO SCH (08:06)
[2024-03-27] MEDS: PATIROMER SORBITEX CALCIUM 8.4 GM POWDER PACKET (VELTASSA) PO ONE (10:05)
[2024-03-27] MEDS: cefTRIAXone SOD 1 GM in D5W MINI-BAG PLUS 50 ML IV SCH (11:42)
[2024-03-27 12:00] VITALS: BP 118/63; TEMP 97.3; O2SAT 91
[2024-03-27] MEDS: ACETAMINOPHEN TAB 650MG DOSE (2X325MG) PO PRN (18:38)
[2024-03-27 19:38] VITALS: BP 123/63; TEMP 97; O2SAT 100
[2024-03-27 19:41] VITALS: O2SAT 96
[2024-03-27 21:17] VITALS: BP 123/63
[2024-03-28 04:00] VITALS: BP 129/62; TEMP 97.2; O2SAT 98
[2024-03-28] MEDS ORDERED: SODIUM CHLORIDE 0.9% 1000ML IV PRN (06:00)
[2024-03-28] MEDS ORDERED: LIDOCAINE 1% SDV 5ML VIAL SC PRN (06:00)
[2024-03-28] MEDS ORDERED: HEPARIN 1,000UNITS/ML 10ML VIAL (FOR RADIOLOGY & DIALYSIS ONLY) XX SCH (06:00)
[2024-03-28] MEDS: HEPARIN 1,000UNITS/ML 10ML VIAL (FOR RADIOLOGY & DIALYSIS ONLY) IV PRN (10:49)
[2024-03-28] MEDS ORDERED: CEFD1CAP9 PO (11:21)
[2024-03-28 12:15] VITALS: BP 110/64; TEMP 96.6; O2SAT 100
== END 2024-03-28 15:27 | disposition home or self-care (01) | DRG 689 ==
LOC: M ED 00:45 → M ED INP 14:26 → M MSPAV 21:43
PROVIDERS: ADMIT Internal Medicine Nephrology; ATTEND Internal Medicine Nephrology
PROC: 5A1D70Z Performance of Urinary Filtration, Intermittent, Less than 6 Hours Per Day (ICD-10-PCS; principal; 2024-03-28)
DX: N39.0 Urinary tract infection, site not specified (principal); N18.6 End stage renal disease; N25.81 Secondary hyperparathyroidism of renal origin; I50.32 Chronic diastolic (congestive) heart failure; I48.92 Unspecified atrial flutter; I13.2 Hypertensive heart and chronic kidney disease with heart failure and with stage 5 chronic kidney disease, or end stage renal disease; G47.33 Obstructive sleep apnea (adult) (pediatric); I48.91 Unspecified atrial fibrillation; K74.60 Unspecified cirrhosis of liver; D69.6 Thrombocytopenia, unspecified; Z90.5 Acquired absence of kidney; Z85.528 Personal history of other malignant neoplasm of kidney; J44.9 Chronic obstructive pulmonary disease, unspecified; I27.20 Pulmonary hypertension, unspecified; Z99.81 Dependence on supplemental oxygen; F41.9 Anxiety disorder, unspecified; R26.89 Other abnormalities of gait and mobility; Z87.891 Personal history of nicotine dependence; Z79.82 Long term (current) use of aspirin; Z79.899 Other long term (current) drug therapy; Z88.8 Allergy status to other drugs, medicaments and biological substances; Z99.2 Dependence on renal dialysis

== ENCOUNTER 2024-04-10 10:55 | Emergency (ER) | payer OTHER, MEDICAID ==
[~2024-04-10] VITALS: Ht 154.9 cm; Wt 69.2 kg
[~2024-04-10 10:55] MED LIST changes: +CEFD1CAP9 PO
[2024-04-10] MEDS: ACETAMINOPHEN TAB 650MG DOSE (2X325MG) PO ONE (13:41)
[2024-04-10] MEDS: LIDOCAINE 4% CREAM 5GM (LMX4) TOP ONE (13:41)
[2024-04-10] MEDS ORDERED: LIDO1CRE2 TOP (14:05)
[2024-04-10 14:45] VITALS: BP 146/65; TEMP 97.2; O2SAT 97
== END 2024-04-10 15:03 | disposition home or self-care (01) ==
LOC: M ED 10:55 → EDBD 10:55 → M ED 15:03
DX: M25.462 Effusion, left knee (principal); I11.0 Hypertensive heart disease with heart failure; I50.22 Chronic systolic (congestive) heart failure; N18.6 End stage renal disease; Z88.8 Allergy status to other drugs, medicaments and biological substances; Z79.1 Long term (current) use of non-steroidal anti-inflammatories (NSAID); Z79.51 Long term (current) use of inhaled steroids; Z79.899 Other long term (current) drug therapy

== ENCOUNTER 2024-05-18 13:36 | Emergency (ER) | payer OTHER, MEDICAID ==
[~2024-05-18] VITALS: Ht 154.9 cm; Wt 70.0 kg
[~2024-05-18 13:36] MED LIST changes: +LIDO1CRE2 TOP; -ROSU20TA61 PO; +ROSU20TA86 PO; -SIME180C25 PO; +SIME1CAP4 PO
[2024-05-18 14:42] LABS: BASO % 0.6 % (0.0-1.0); HEMATOCRIT 35.3 % (36.0-47.0); LYMPH # 0.9 10^3/uL (1.5-5.0); MEAN CORPUSCULAR HEMOGLOBIN 31.7 pg (27.0-33.0); MEAN CORPUSCULAR HGB CONC 31.2 g/dl (32.0-36.5); MEAN CORPUSCULAR VOLUME 101.7 fl (80.0-96.0); MONO # 0.5 10^3/uL (0.0-0.8); MONO % 9.5 % (2.0-8.0); NEUTROPHILS % 73.5 % (36.0-66.0); RED BLOOD COUNT 3.47 10^6/uL (4.00-5.40); WHITE BLOOD COUNT 5.4 10^3/uL (4.0-10.0)
[2024-05-18 14:51] LABS: PLATELET COUNT, AUTOMATED 94 10^3/uL (150-450)
[2024-05-18] MEDS ORDERED: HOME MED LIST COMPLETE! XX SCH (17:20)
[2024-05-18 17:28] LABS: CALCIUM LEVEL 8.7 MG/DL (8.3-10.6); CREATININE FOR GFR 7.46 MG/DL (0.55-1.30); GLOMERULAR FILTRATION RATE 5.8 (>45); MAGNESIUM LEVEL 1.6 MG/DL (1.8-2.4); POTASSIUM SERUM 4.6 MMOL/L (3.5-5.1)
[2024-05-18] MEDS: ACETAMINOPHEN 325 MG TAB PO ONE (17:57)
[2024-05-18] MEDS ORDERED: SLOWTAB2 PO (18:32)
[2024-05-18] MEDS: MAG SULF 1GM/100ML (MAG RUN) 1 GM in IV 1 EA IV ONE (18:44)
[2024-05-18 20:15] VITALS: BP 142/63; TEMP 97; O2SAT 97
== END 2024-05-18 20:25 | disposition home or self-care (01) ==
LOC: EDBD 13:36 → M ED 13:36
DX: E83.42 Hypomagnesemia (principal); R53.1 Weakness; N18.6 End stage renal disease; Z99.2 Dependence on renal dialysis; I48.91 Unspecified atrial fibrillation; I50.9 Heart failure, unspecified; E11.9 Type 2 diabetes mellitus without complications; I10 Essential (primary) hypertension; J44.9 Chronic obstructive pulmonary disease, unspecified; Z86.73 Personal history of transient ischemic attack (TIA), and cerebral infarction without residual deficits; G47.33 Obstructive sleep apnea (adult) (pediatric); K74.60 Unspecified cirrhosis of liver; D69.6 Thrombocytopenia, unspecified; Z79.82 Long term (current) use of aspirin; Z79.899 Other long term (current) drug therapy; Z88.8 Allergy status to other drugs, medicaments and biological substances
CPT/HCPCS: 36415; 70450; 80048; 83735; 85025; 85049; 85055; 93005; 96374; 99285; J3475

== ENCOUNTER 2024-05-28 01:27 | Inpatient (IN) | payer OTHER, MEDICAID ==
[~2024-05-28] VITALS: Ht 154.9 cm; Wt 68.2 kg
[~2024-05-28 01:27] MED LIST changes: +SLOWTAB2 PO
[2024-05-28] MEDS: IPRATROPIUM 0.5MG/ALBUTEROL 2.5MG INH SOL UD 3ML (DUONEB) NEB ONE (02:44)
[2024-05-28] MEDS: methylPREDNISolone 125MG 2ML VIAL IV ONE (02:53)
[2024-05-28] MEDS: FUROSEMIDE 100MG/10ML VIAL IV ONE (02:53)
[2024-05-28 02:54] LABS: BASO % 0.4 % (0.0-1.0); HEMATOCRIT 35.6 % (36.0-47.0); HEMOGLOBIN 10.9 g/dl (12.0-15.5); LYMPH # 0.8 10^3/uL (1.5-5.0); LYMPH % 7.6 % (24.0-44.0); MEAN CORPUSCULAR HEMOGLOBIN 30.8 pg (27.0-33.0); MEAN CORPUSCULAR HGB CONC 30.6 g/dl (32.0-36.5); MEAN CORPUSCULAR VOLUME 100.6 fl (80.0-96.0); MONO # 0.8 10^3/uL (0.0-0.8); MONO % 7.4 % (2.0-8.0); NEUTROPHILS # 8.9 10^3/uL (1.5-8.5); PLATELET COUNT, AUTOMATED 125 10^3/uL (150-450); RED BLOOD COUNT 3.54 10^6/uL (4.00-5.40); WHITE BLOOD COUNT 10.6 10^3/uL (4.0-10.0)
[2024-05-28 04:07] LABS: ALBUMIN 3.6 G/DL (3.2-5.2); ALKALINE PHOSPHATASE 214 U/L (35-104); ALT/SGPT < 9 U/L (7.0-40); AST/SGOT 15 U/L (<34); BILIRUBIN,DIRECT < 0.1 MG/DL (<0.4); BILIRUBIN,TOTAL 0.2 MG/DL (0.3-1.2); BLOOD UREA NITROGEN 45 MG/DL (9-23); CALCIUM LEVEL 9.1 MG/DL (8.3-10.6); CARBON DIOXIDE LEVEL 28 MMOL/L (20-31); CHLORIDE LEVEL 98 MMOL/L (98-107); CREATININE FOR GFR 10.33 MG/DL (0.55-1.30); GLUCOSE, FASTING 122 MG/DL (74-106); POTASSIUM SERUM 7.1 MMOL/L (3.5-5.1); SODIUM LEVEL 135 MMOL/L (136-145); TOTAL PROTEIN 7.9 G/DL (5.7-8.2)
[2024-05-28 04:56] LABS: CALCIUM LEVEL 8.6 MG/DL (8.3-10.6); CREATININE FOR GFR 10.46 MG/DL (0.55-1.30); GLOMERULAR FILTRATION RATE 3.9 (>45); POTASSIUM SERUM 6.7 MMOL/L (3.5-5.1)
[2024-05-28] MEDS: PATIROMER SORBITEX CALCIUM 8.4 GM POWDER PACKET (VELTASSA) PO ONE (05:25)
[2024-05-28] MEDS: HumuLIN R (REGULAR) INSULIN (NovoLIN R) **100U/ML** PER UNIT IV ONE (05:45)
[2024-05-28] MEDS: DEXTROSE 50% 50ML SYRINGE IV STA (05:47)
[2024-05-28] MEDS ORDERED: ACETAMINOPHEN 325 MG TAB PO PRN (06:35)
[2024-05-28] MEDS ORDERED: MOM 30ML SUSPENSION UDC PO PRN (06:35)
[2024-05-28] MEDS ORDERED: MAALOX 30 ML SUSP *UDC PO PRN (06:35)
[2024-05-28] MEDS ORDERED: MAGN71.5 PO (06:54)
[2024-05-28] MEDS ORDERED: HOME MED LIST COMPLETE! XX SCH (06:55)
[2024-05-28] MEDS ORDERED: SODIUM CHLORIDE 0.9% 1000 ML IV PRN (07:00)
[2024-05-28] MEDS ORDERED: HEPARIN 1,000UNITS/ML 10ML VIAL (FOR RADIOLOGY & DIALYSIS ONLY) IV PRN (07:00)
[2024-05-28] MEDS ORDERED: LIDOCAINE 1% SDV 5ML VIAL SC PRN (07:00)
[2024-05-28] MEDS: METOPROLOL TARTRATE 100MG TAB PO SCH (09:00)
[2024-05-28] MEDS ORDERED: IPRATROPIUM 0.5MG/ALBUTEROL 2.5MG INH SOL UD 3ML (DUONEB) INH PRN (09:40)
[2024-05-28] MEDS ORDERED: ALBUTEROL 90 MCG/ACT 8GM HFA INHALER INH PRN (09:40)
[2024-05-28] MEDS ORDERED: diazePAM 2 MG TAB PO PRN (09:40)
[2024-05-28] MEDS ORDERED: CYCLOBENZAPRINE 5MG TABLET PO PRN (09:40)
[2024-05-28] MEDS: HEPARIN 1,000UNITS/ML 10ML VIAL (FOR RADIOLOGY & DIALYSIS ONLY) XX SCH (09:56)
[2024-05-28] MEDS: MIDODRINE 5 MG TAB PO SCH (11:00)
[2024-05-28 13:26] VITALS: BP 123/57; TEMP 97.6; O2SAT 96
[2024-05-28] MEDS: HEPARIN SOD (PORCINE) 5000UNITS/ML 1ML VIAL/SYRINGE SQ SCH (14:00)
[2024-05-28 14:15] LABS: CALCIUM LEVEL 9.6 MG/DL (8.3-10.6); CREATININE FOR GFR 4.75 MG/DL (0.55-1.30); GLOMERULAR FILTRATION RATE 9.7 (>45); POTASSIUM SERUM 4.1 MMOL/L (3.5-5.1)
[2024-05-28 14:29] VITALS: O2SAT 99
[2024-05-28] MEDS: ASPIRIN ENTERIC 325MG TAB PO SCH (15:13)
[2024-05-28] MEDS: OMEPRAZOLE 20MG CAP PO SCH (15:13)
[2024-05-28] MEDS: SUCROFERRIC OXYHYDROXIDE 500MG CHEW TAB (VELPHORO) PO SCH (15:13)
[2024-05-28] MEDS ORDERED: traZODone 100 MG TAB PO SCH (21:00)
[2024-05-28] MEDS ORDERED: ROSUVASTATIN 10 MG TAB (CRESTOR) PO SCH (21:00)
== END 2024-05-28 15:33 | disposition home or self-care (01) | DRG 683 ==
LOC: EDBD 01:27 → M ED 01:27 → M ED INP 06:31 → M PCU 13:49
PROVIDERS: ADMIT Student in an Organized Health Care Education/Training Program; ATTEND Student in an Organized Health Care Education/Training Program
PROC: 5A1D70Z Performance of Urinary Filtration, Intermittent, Less than 6 Hours Per Day (ICD-10-PCS; principal; 2024-05-28)
DX: N18.6 End stage renal disease (principal); I50.32 Chronic diastolic (congestive) heart failure; I13.2 Hypertensive heart and chronic kidney disease with heart failure and with stage 5 chronic kidney disease, or end stage renal disease; J90 Pleural effusion, not elsewhere classified; I48.91 Unspecified atrial fibrillation; E87.5 Hyperkalemia; E78.5 Hyperlipidemia, unspecified; F41.9 Anxiety disorder, unspecified; M54.9 Dorsalgia, unspecified; Z79.82 Long term (current) use of aspirin; Z79.899 Other long term (current) drug therapy; Z88.1 Allergy status to other antibiotic agents; Z88.8 Allergy status to other drugs, medicaments and biological substances; Z99.2 Dependence on renal dialysis; Z99.81 Dependence on supplemental oxygen; K74.60 Unspecified cirrhosis of liver; Z85.528 Personal history of other malignant neoplasm of kidney; Z90.5 Acquired absence of kidney; R26.89 Other abnormalities of gait and mobility; Z90.79 Acquired absence of other genital organ(s); J44.9 Chronic obstructive pulmonary disease, unspecified; E11.22 Type 2 diabetes mellitus with diabetic chronic kidney disease; K21.9 Gastro-esophageal reflux disease without esophagitis; D63.1 Anemia in chronic kidney disease; I95.89 Other hypotension; J45.909 Unspecified asthma, uncomplicated; R29.6 Repeated falls

== ENCOUNTER 2024-07-24 05:04 | Inpatient (IN) | payer OTHER, MEDICAID ==
[~2024-07-24] VITALS: Ht 154.9 cm; Wt 65.5 kg
[~2024-07-24 05:04] MED LIST changes: -CYCL5TAB PO; +CYCL5TAB4 PO; -LIDO1CRE2 TOP; +LIDO4CRE12 TOP; +MAGN71.5 PO
[2024-07-24 06:09] LABS: VENOUS BASE EXCESS 4.3 (-2.0-2.0); VENOUS HCO3 32.5 MMOL/L (23.0-27.0); VENOUS O2 SATURATION 55.4 % (60.0-80.0); VENOUS PARTIAL PRESSURE CO2 69.4 mmHg (38.0-50.0); VENOUS PARTIAL PRESSURE O2 31.5 mmHg (30.0-50.0); VENOUS PH 7.288 UNITS (7.330-7.430); VENOUS STANDARD HCO3 27.5 MMOL/L; VENOUS TOTAL CO2 34.6 MMOL/L (24.0-28.0)
[2024-07-24 06:12] LABS: BASO % 0.4 % (0.0-1.0); HEMOGLOBIN 9.9 g/dl (12.0-15.5); LYMPH # 0.7 10^3/uL (1.5-5.0); LYMPH % 9.8 % (24.0-44.0); MEAN CORPUSCULAR HEMOGLOBIN 31.1 pg (27.0-33.0); MEAN CORPUSCULAR VOLUME 103.8 fl (80.0-96.0); MONO # 0.6 10^3/uL (0.0-0.8); MONO % 8.6 % (2.0-8.0); NEUTROPHILS # 5.7 10^3/uL (1.5-8.5); NEUTROPHILS % 80.6 % (36.0-66.0); RED BLOOD COUNT 3.18 10^6/uL (4.00-5.40); WHITE BLOOD COUNT 7.1 10^3/uL (4.0-10.0)
[2024-07-24 06:34] LABS: PLATELET COUNT, AUTOMATED 94 10^3/uL (150-450)
[2024-07-24 06:45] LABS: CPK CREATINE PHOSPHOKINASE < 15 U/L (34-145)
[2024-07-24 06:50] LABS: ALBUMIN 3.3 G/DL (3.2-5.2); ALKALINE PHOSPHATASE 207 U/L (35-104); ALT/SGPT 18 U/L (7.0-40); AST/SGOT 12 U/L (<34); BILIRUBIN,DIRECT < 0.1 MG/DL (<0.4); BILIRUBIN,TOTAL 0.2 MG/DL (0.3-1.2); BLOOD UREA NITROGEN 50 MG/DL (9-23); CALCIUM LEVEL 8.2 MG/DL (8.3-10.6); CARBON DIOXIDE LEVEL 32 MMOL/L (20-31); CHLORIDE LEVEL 100 MMOL/L (98-107); CK-MB VALUE MASS < 1.0 NG/ML (<3.6); GLOMERULAR FILTRATION RATE 5.3 (>45); GLUCOSE, FASTING 142 MG/DL (74-106); POTASSIUM SERUM 6.6 MMOL/L (3.5-5.1); SODIUM LEVEL 140 MMOL/L (136-145); THYROID STIMULATING HORMONE 1.806 uIU/ML (0.55-4.78); THYROXINE (T4) 9.1 UG/DL (4.5-10.9); TOTAL PROTEIN 7.1 G/DL (5.7-8.2)
[2024-07-24] MEDS: ALBUTEROL SULFATE 2.5MG/0.5ML INH NEB SOLN INH ONE (07:28)
[2024-07-24] MEDS: IPRATROPIUM 0.5MG/ALBUTEROL 2.5MG INH SOL UD 3ML (DUONEB) NEB PRN (07:29)
[2024-07-24] MEDS: methylPREDNISolone 125MG 2ML VIAL IV ONE (07:33)
[2024-07-24] MEDS ORDERED: ONDANSETRON 4MG 2ML VIAL IV PRN (07:40)
[2024-07-24] MEDS: ACETAMINOPHEN 325 MG TAB PO ONE (09:25)
[2024-07-24] MEDS ORDERED: HOME MED LIST COMPLETE! XX SCH (10:35)
[2024-07-24] MEDS ORDERED: HEPARIN 1,000UNITS/ML 10ML VIAL (FOR RADIOLOGY & DIALYSIS ONLY) IV PRN (10:55)
[2024-07-24] MEDS ORDERED: SODIUM CHLORIDE 0.9% 1000 ML IV PRN (10:55)
[2024-07-24] MEDS ORDERED: LIDOCAINE 1% SDV 5ML VIAL SC PRN (10:55)
[2024-07-24] MEDS ORDERED: ACETAMINOPHEN 500 MG TAB PO PRN (12:35)
[2024-07-24] MEDS ORDERED: METOPROLOL TARTRATE 100MG TAB PO ONE (12:35)
[2024-07-24] MEDS ORDERED: CYCLOBENZAPRINE 5MG TABLET PO PRN (12:35)
[2024-07-24] MEDS ORDERED: CALCIUM GLUCONATE 1,000 MG in DEXTROSE 5% (D5W) MINI-BAG PLU 100 ML IV ONE (12:45)
[2024-07-24 12:50] VITALS: BP 153/84; TEMP 97.9; O2SAT 95
[2024-07-24] MEDS ORDERED: PATIROMER SORBITEX CALCIUM 8.4 GM POWDER PACKET (VELTASSA) PO ONE (14:00)
[2024-07-24] MEDS: HEPARIN 1,000UNITS/ML 10ML VIAL (FOR RADIOLOGY & DIALYSIS ONLY) XX SCH (14:41)
[2024-07-24 17:20] VITALS: BP 110/51; TEMP 98.1; O2SAT 97
[2024-07-24] MEDS: ASPIRIN ENTERIC 325MG TAB PO SCH (17:43)
[2024-07-24] MEDS: OMEPRAZOLE 20MG CAP PO SCH (17:43)
[2024-07-24] MEDS: SUCROFERRIC OXYHYDROXIDE 500MG CHEW TAB (VELPHORO) PO SCH (17:43)
[2024-07-24 17:48] VITALS: BP 137/65
[2024-07-24] MEDS: DIGOXIN INJ 0.5 MG/2 ML AMP IV STA (17:48)
[2024-07-24] MEDS: METOPROLOL TARTRATE 100MG TAB PO SCH (17:48)
[2024-07-24 20:00] VITALS: BP 121/59; TEMP 98.1; O2SAT 96
[2024-07-24] MEDS: traZODone 100 MG TAB PO SCH (21:33)
[2024-07-24] MEDS: ROSUVASTATIN 10 MG TAB (CRESTOR) PO SCH (21:34)
[2024-07-24] MEDS: diazePAM 2 MG TAB PO PRN (21:39)
[2024-07-25 04:00] VITALS: BP 110/50; TEMP 97.9; O2SAT 100
[2024-07-25] MEDS ORDERED: LIDOCAINE 1% SDV 5ML VIAL SC PRN (06:00)
[2024-07-25] MEDS ORDERED: SODIUM CHLORIDE 0.9% 1000 ML IV PRN (06:00)
[2024-07-25] MEDS ORDERED: HEPARIN 1,000UNITS/ML 10ML VIAL (FOR RADIOLOGY & DIALYSIS ONLY) XX SCH (06:00)
[2024-07-25] MEDS ORDERED: HEPARIN 1,000UNITS/ML 10ML VIAL (FOR RADIOLOGY & DIALYSIS ONLY) IV PRN (06:00)
[2024-07-25] MEDS: DIGOXIN 0.125 MG TAB PO SCH (06:54)
[2024-07-25] MEDS: ALBUTEROL 90 MCG/ACT 8GM HFA INHALER INH PRN (08:00)
[2024-07-25 08:56] LABS: BASO % 0.2 % (0.0-1.0); HEMATOCRIT 28.6 % (36.0-47.0); HEMOGLOBIN 8.9 g/dl (12.0-15.5); LYMPH # 0.9 10^3/uL (1.5-5.0); LYMPH % 11.6 % (24.0-44.0); MEAN CORPUSCULAR HEMOGLOBIN 31.3 pg (27.0-33.0); MEAN CORPUSCULAR HGB CONC 31.1 g/dl (32.0-36.5); MEAN CORPUSCULAR VOLUME 100.7 fl (80.0-96.0); MONO # 0.7 10^3/uL (0.0-0.8); MONO % 8.5 % (2.0-8.0); NEUTROPHILS # 6.4 10^3/uL (1.5-8.5); NEUTROPHILS % 79.2 % (36.0-66.0); RED BLOOD COUNT 2.84 10^6/uL (4.00-5.40)
[2024-07-25 09:02] LABS: PLATELET COUNT, AUTOMATED 94 10^3/uL (150-450)
[2024-07-25 09:34] LABS: CK-MB VALUE MASS < 1.0 NG/ML (<3.6)
[2024-07-25 09:35] LABS: CPK CREATINE PHOSPHOKINASE 15 U/L (34-145); MB/CK RELATIVE INDEX 6.66 (< OR =4)
[2024-07-25 09:37] LABS: ALBUMIN 3.1 G/DL (3.2-5.2); ALKALINE PHOSPHATASE 196 U/L (35-104); ALT/SGPT 14 U/L (7.0-40); AST/SGOT 10 U/L (<34); BILIRUBIN,TOTAL 0.3 MG/DL (0.3-1.2); BLOOD UREA NITROGEN 37 MG/DL (9-23); CALCIUM LEVEL 8.6 MG/DL (8.3-10.6); CARBON DIOXIDE LEVEL 25 MMOL/L (20-31); CHLORIDE LEVEL 100 MMOL/L (98-107); CREATININE FOR GFR 4.67 MG/DL (0.55-1.30); GLOMERULAR FILTRATION RATE 9.9 (>45); GLUCOSE, FASTING 181 MG/DL (74-106); POTASSIUM SERUM 4.4 MMOL/L (3.5-5.1); SODIUM LEVEL 135 MMOL/L (136-145); TOTAL PROTEIN 6.4 G/DL (5.7-8.2)
[2024-07-25 12:33] VITALS: BP 114/67; TEMP 97.9; O2SAT 97
== END 2024-07-25 15:45 | disposition home or self-care (01) | DRG 640 ==
LOC: EDBD 05:04 → M ED 05:04 → M MSPAV 12:35
PROVIDERS: ADMIT General Practice; ATTEND General Practice
PROC: 5A1D70Z Performance of Urinary Filtration, Intermittent, Less than 6 Hours Per Day (ICD-10-PCS; principal; 2024-07-25)
DX: E87.5 Hyperkalemia (principal); N18.6 End stage renal disease; J96.11 Chronic respiratory failure with hypoxia; N25.81 Secondary hyperparathyroidism of renal origin; I50.32 Chronic diastolic (congestive) heart failure; I48.92 Unspecified atrial flutter; I13.2 Hypertensive heart and chronic kidney disease with heart failure and with stage 5 chronic kidney disease, or end stage renal disease; E87.70 Fluid overload, unspecified; I48.91 Unspecified atrial fibrillation; D64.9 Anemia, unspecified; K74.60 Unspecified cirrhosis of liver; J44.9 Chronic obstructive pulmonary disease, unspecified; I27.20 Pulmonary hypertension, unspecified; G47.33 Obstructive sleep apnea (adult) (pediatric); E78.5 Hyperlipidemia, unspecified; M54.9 Dorsalgia, unspecified; K21.9 Gastro-esophageal reflux disease without esophagitis; J45.909 Unspecified asthma, uncomplicated; F41.9 Anxiety disorder, unspecified; R26.89 Other abnormalities of gait and mobility; Z90.79 Acquired absence of other genital organ(s); Z87.891 Personal history of nicotine dependence; Z79.82 Long term (current) use of aspirin; Z79.899 Other long term (current) drug therapy; Z88.8 Allergy status to other drugs, medicaments and biological substances; Z99.81 Dependence on supplemental oxygen; Z99.2 Dependence on renal dialysis; Z85.528 Personal history of other malignant neoplasm of kidney; Z90.5 Acquired absence of kidney

== ENCOUNTER → 2024-08-02 | Outpatient (CLI) | payer OTHER, MEDICAID ==
[2024-08-02 14:45] LABS: CALCIUM LEVEL 9.3 MG/DL (8.3-10.6); CREATININE FOR GFR 3.12 MG/DL (0.55-1.30); GLOMERULAR FILTRATION RATE 15.8 (>45); POTASSIUM SERUM 4.3 MMOL/L (3.5-5.1)
== END ==
LOC: M PLALAB 10:03
PROVIDERS: ATTEND Urology
DX: C64.2 Malignant neoplasm of left kidney, except renal pelvis (principal); Z90.5 Acquired absence of kidney

== ENCOUNTER → 2024-08-10 | Outpatient (CLI) | payer OTHER, MEDICAID ==
[~2024-08-10] MED LIST changes: +ISOVUE-370 76% 100ML VIAL As Ordered ONE
== END ==
LOC: M RAD 12:15
PROVIDERS: ATTEND Urology
DX: C64.2 Malignant neoplasm of left kidney, except renal pelvis (principal); Z90.5 Acquired absence of kidney; N26.1 Atrophy of kidney (terminal); N28.1 Cyst of kidney, acquired; N20.0 Calculus of kidney; R59.0 Localized enlarged lymph nodes
CPT/HCPCS: 74170; Q9967

== ENCOUNTER 2024-09-06 13:29 | Inpatient (IN) | payer OTHER, MEDICAID ==
[~2024-09-06] VITALS: Ht 154.9 cm; Wt 63.7 kg
[~2024-09-06 13:29] MED LIST changes: -ISOVUE-370 76% 100ML VIAL As Ordered ONE
[2024-09-06 14:30] LABS: BASO % 0.6 % (0.0-1.0); EOS # 0.2 10^3/uL (0.0-0.5); EOS % 3.2 % (0.0-3.0); HEMATOCRIT 34.7 % (36.0-47.0); HEMOGLOBIN 10.8 g/dl (12.0-15.5); LYMPH # 0.8 10^3/uL (1.5-5.0); LYMPH % 11.8 % (24.0-44.0); MEAN CORPUSCULAR HGB CONC 31.1 g/dl (32.0-36.5); MONO # 0.5 10^3/uL (0.0-0.8); MONO % 7.7 % (2.0-8.0); NEUTROPHILS # 5.2 10^3/uL (1.5-8.5); NEUTROPHILS % 76.1 % (36.0-66.0); PLATELET COUNT, AUTOMATED 112 10^3/uL (150-450); RED BLOOD COUNT 3.37 10^6/uL (4.00-5.40); WHITE BLOOD COUNT 6.8 10^3/uL (4.0-10.0)
[2024-09-06] MEDS: IPRATROPIUM 0.5MG/ALBUTEROL 2.5MG INH SOL UD 3ML (DUONEB) NEB ONE (14:34)
[2024-09-06] MEDS: ALBUTEROL SULFATE 2.5MG/0.5ML INH NEB SOLN INH ONE (14:34)
[2024-09-06 14:42] LABS: VENOUS BASE EXCESS -0.8 (-2.0-2.0); VENOUS HCO3 25.1 MMOL/L (23.0-27.0); VENOUS O2 SATURATION 66.9 % (60.0-80.0); VENOUS PARTIAL PRESSURE CO2 46.7 mmHg (38.0-50.0); VENOUS PARTIAL PRESSURE O2 37.4 mmHg (30.0-50.0); VENOUS PH 7.348 UNITS (7.330-7.430); VENOUS STANDARD HCO3 23.2 MMOL/L; VENOUS TOTAL CO2 26.5 MMOL/L (24.0-28.0)
[2024-09-06] MEDS: methylPREDNISolone 125MG 2ML VIAL IV ONE (14:43)
[2024-09-06 15:01] LABS: CK-MB VALUE MASS < 1.0 NG/ML (<3.6)
[2024-09-06 15:02] LABS: LIPASE 38 U/L (12-53)
[2024-09-06] MEDS: ACETAMINOPHEN *IV* 1,000 MG in IV 1 EA IV ONE (15:03)
[2024-09-06 15:04] LABS: CPK CREATINE PHOSPHOKINASE 17 U/L (34-145); MB/CK RELATIVE INDEX 5.88 (< OR =4)
[2024-09-06 15:07] LABS: KETONE, URINE AUTO RFX NEGATIVE (NEGATIVE); LEUKOCYTE ESTERASE UR AUTO RFX 3+ (NEGATIVE); NITRITE, URINE AUTO RFX NEGATIVE (NEGATIVE); RBC, URINE AUTO RFX 14 /HPF (0-3); SQUAM EPITHELIAL CELL UR AURFX 7 /HPF (0-6); TRANSITIONAL EPITHELIAL AU RFX 1 /HPF; WBC, URINE AUTO RFX TNTC /HPF (0-3)
[2024-09-06 15:15] LABS: ALBUMIN 3.7 G/DL (3.2-5.2); ALKALINE PHOSPHATASE 235 U/L (35-104); ALT/SGPT 12 U/L (7.0-40); AST/SGOT 14 U/L (<34); BILIRUBIN,DIRECT < 0.1 MG/DL (<0.4); BILIRUBIN,TOTAL 0.2 MG/DL (0.3-1.2); BLOOD UREA NITROGEN 47 MG/DL (9-23); CALCIUM LEVEL 9.1 MG/DL (8.3-10.6); CARBON DIOXIDE LEVEL 29 MMOL/L (20-31); CHLORIDE LEVEL 98 MMOL/L (98-107); CREATININE FOR GFR 8.73 MG/DL (0.55-1.30); DIGOXIN LEVEL 2.8 NG/ML (0.8-2.0); GLOMERULAR FILTRATION RATE 4.8 (>45); GLUCOSE, FASTING 100 MG/DL (74-106); MAGNESIUM LEVEL 2.1 MG/DL (1.8-2.4); POTASSIUM SERUM 6.3 MMOL/L (3.5-5.1); SODIUM LEVEL 139 MMOL/L (136-145); TOTAL PROTEIN 7.6 G/DL (5.7-8.2)
[2024-09-06] MEDS ORDERED: PATIROMER SORBITEX CALCIUM 8.4 GM POWDER PACKET (VELTASSA) PO ONE (15:20)
[2024-09-06] MEDS: cefTRIAXone SOD 1 GM in DEXTROSE 5% (D5W) ADV/MINI-BAG 50 ML IV ONE (15:47)
[2024-09-06] MEDS: PATIROMER SORBITEX CALCIUM 8.4 GM POWDER PACKET (VELTASSA) PO ONE (15:47)
[2024-09-06] MEDS: SODIUM BICARBONATE 8.4% INJ 50ML SYRINGE IV ONE (15:48)
[2024-09-06] MEDS: HumuLIN R (REGULAR) INSULIN (NovoLIN R) **100U/ML** PER UNIT IV ONE (15:48)
[2024-09-06] MEDS: DEXTROSE 50% 50ML SYRINGE IV ONE (15:48)
[2024-09-06 16:45] LABS: CK-MB VALUE MASS < 1.0 NG/ML (<3.6)
[2024-09-06 16:49] LABS: CPK CREATINE PHOSPHOKINASE 21 U/L (34-145); MB/CK RELATIVE INDEX 4.76 (< OR =4)
[2024-09-06] MEDS ORDERED: MAGN64TASA PO (17:20)
[2024-09-06] MEDS ORDERED: HOME MED LIST COMPLETE! XX SCH (17:25)
[2024-09-06 18:53] LABS: CALCIUM LEVEL 8.9 MG/DL (8.3-10.6); CREATININE FOR GFR 8.79 MG/DL (0.55-1.30); GLOMERULAR FILTRATION RATE 4.8 (>45); POTASSIUM SERUM 5.1 MMOL/L (3.5-5.1)
[2024-09-06] MEDS ORDERED: ALBUTEROL SULFATE 2.5MG/0.5ML INH NEB SOLN NEB PRN (19:00)
[2024-09-06] MEDS: SYMBICORT 160/4.5MCG INHALER 6GM INH SCH (19:38)
[2024-09-06] MEDS: LORATADINE 10 MG TAB PO SCH (20:51)
[2024-09-06] MEDS: ROSUVASTATIN 10 MG TAB (CRESTOR) PO SCH (20:52)
[2024-09-06] MEDS: traZODone 100 MG TAB PO SCH (20:52)
[2024-09-07] VITALS (7 sets, daily range): BP systolic 121–175; BP diastolic 57–83; TEMP 97.1–98.3; O2SAT 93–99
[2024-09-07] MEDS: diazePAM 2 MG TAB PO PRN (01:21)
[2024-09-07 05:26] LABS: HEMATOCRIT 30.6 % (36.0-47.0); HEMOGLOBIN 9.8 g/dl (12.0-15.5); RED BLOOD COUNT 3.06 10^6/uL (4.00-5.40); WHITE BLOOD COUNT 5.5 10^3/uL (4.0-10.0)
[2024-09-07] MEDS ORDERED: SODIUM CHLORIDE 0.9% 1000 ML IV PRN (06:00)
[2024-09-07] MEDS ORDERED: HEPARIN 1,000UNITS/ML 10ML VIAL (FOR RADIOLOGY & DIALYSIS ONLY) IV PRN (06:00)
[2024-09-07] MEDS ORDERED: LIDOCAINE 1% SDV 5ML VIAL SC PRN (06:00)
[2024-09-07 06:02] LABS: CALCIUM LEVEL 8.6 MG/DL (8.3-10.6); CREATININE FOR GFR 9.25 MG/DL (0.55-1.30); GLOMERULAR FILTRATION RATE 4.5 (>45); POTASSIUM SERUM 5.6 MMOL/L (3.5-5.1)
[2024-09-07] MEDS: TIOTROPIUM INHALER/CAPSULE (SPIRIVA) INH SCH (08:09)
[2024-09-07] MEDS: ASPIRIN ENTERIC 325MG TAB PO SCH (08:36)
[2024-09-07] MEDS: SUCROFERRIC OXYHYDROXIDE 500MG CHEW TAB (VELPHORO) PO SCH (08:36)
[2024-09-07] MEDS: METOPROLOL TARTRATE 100MG TAB PO SCH (08:37)
[2024-09-07] MEDS: OMEPRAZOLE 20MG CAP PO SCH (08:38)
[2024-09-07 12:17] LABS: DIGOXIN LEVEL 1.8 NG/ML (0.8-2.0)
[2024-09-07] MEDS: HEPARIN 1,000UNITS/ML 10ML VIAL (FOR RADIOLOGY & DIALYSIS ONLY) XX SCH (13:41)
[2024-09-07 15:21] LABS: PLATELET COUNT, AUTOMATED 95 10^3/uL (150-450)
[2024-09-07] MEDS: cefTRIAXone SOD 1 GM in DEXTROSE 5% (D5W) ADV/MINI-BAG 50 ML IV SCH (17:58)
[2024-09-07] MEDS: LACTOBACILLUS ACIDOPHILUS CAP (BACID) PO SCH (18:01)
[2024-09-07] MEDS: ACETAMINOPHEN 500 MG TAB PO PRN (21:33)
[2024-09-07] MEDS: PROMETHAZINE 25MG/ML 1ML VIAL IV PRN (23:02)
[2024-09-08 03:42] VITALS: BP 148/67; TEMP 98.9; O2SAT 99
[2024-09-08] MEDS ORDERED: HEPARIN 1,000UNITS/ML 10ML VIAL (FOR RADIOLOGY & DIALYSIS ONLY) XX SCH (06:00)
[2024-09-08] MEDS ORDERED: LIDOCAINE 1% SDV 5ML VIAL SC PRN (06:00)
[2024-09-08] MEDS ORDERED: SODIUM CHLORIDE 0.9% 1000 ML IV PRN (06:00)
[2024-09-08] MEDS ORDERED: DIGOXIN 0.125 MG TAB PO SCH (07:35)
[2024-09-08 07:44] VITALS: BP 116/63; TEMP 97.6; O2SAT 96
[2024-09-08] MEDS: HEPARIN 1,000UNITS/ML 10ML VIAL (FOR RADIOLOGY & DIALYSIS ONLY) IV PRN (11:09)
[2024-09-08 15:11] VITALS: BP 115/75; TEMP 97.9; O2SAT 98
[2024-09-08] MEDS ORDERED: ONDANSETRON 4MG 2ML VIAL IV PRN (15:50)
[2024-09-08 20:01] VITALS: BP 109/53; TEMP 98.2; O2SAT 93
[2024-09-08] MEDS: diazePAM 2 MG TAB PO PRN (20:41)
[2024-09-08 23:47] VITALS: BP 100/58; TEMP 97.5; O2SAT 99
[2024-09-09 03:17] VITALS: BP 113/59; TEMP 97.5; O2SAT 98
[2024-09-09 07:37] LABS: HEMATOCRIT 34.6 % (36.0-47.0); HEMOGLOBIN 10.8 g/dl (12.0-15.5); MEAN CORPUSCULAR HEMOGLOBIN 31.7 pg (27.0-33.0); MEAN CORPUSCULAR HGB CONC 31.2 g/dl (32.0-36.5); MEAN CORPUSCULAR VOLUME 101.5 fl (80.0-96.0); RED BLOOD COUNT 3.41 10^6/uL (4.00-5.40); WHITE BLOOD COUNT 5.4 10^3/uL (4.0-10.0)
[2024-09-09 07:38] LABS: PLATELET COUNT, AUTOMATED 96 10^3/uL (150-450)
[2024-09-09 08:07] LABS: CALCIUM LEVEL 9.1 MG/DL (8.3-10.6); CREATININE FOR GFR 3.94 MG/DL (0.55-1.30); GLOMERULAR FILTRATION RATE 12.1 (>45); POTASSIUM SERUM 4.1 MMOL/L (3.5-5.1)
[2024-09-09 08:11] VITALS: BP 131/78; TEMP 97.8; O2SAT 95
[2024-09-09] MEDS: DIGOXIN 0.0625MG PER 1/2TABLET PO SCH (09:46)
[2024-09-09] MEDS ORDERED: RISATAB3 PO (11:03)
[2024-09-09] MEDS ORDERED: CEFD300CAP PO (11:03)
[2024-09-09] MEDS ORDERED: DIGO0.123 PO (11:12)
[2024-09-09] MEDS ORDERED: CEFDINIR 300 MG CAP (OMNICEF) PO SCH (16:00)
== END 2024-09-09 14:08 | disposition home or self-care (01) | DRG 640 ==
LOC: M ED 13:29 → EDBD 13:29 → M ED INP 18:31 → M PCU 09-07 00:07
PROVIDERS: ADMIT Internal Medicine Nephrology; ATTEND Internal Medicine Nephrology
PROC: 5A1D70Z Performance of Urinary Filtration, Intermittent, Less than 6 Hours Per Day (ICD-10-PCS; principal; 2024-09-06)
DX: E87.5 Hyperkalemia (principal); N18.6 End stage renal disease; J44.1 Chronic obstructive pulmonary disease with (acute) exacerbation; I50.32 Chronic diastolic (congestive) heart failure; I48.92 Unspecified atrial flutter; I13.2 Hypertensive heart and chronic kidney disease with heart failure and with stage 5 chronic kidney disease, or end stage renal disease; A04.71 Enterocolitis due to Clostridium difficile, recurrent; N30.90 Cystitis, unspecified without hematuria; K21.9 Gastro-esophageal reflux disease without esophagitis; B96.20 Unspecified Escherichia coli [E. coli] as the cause of diseases classified elsewhere; R19.7 Diarrhea, unspecified; T46.0X5A Adverse effect of cardiac-stimulant glycosides and drugs of similar action, initial encounter; G47.33 Obstructive sleep apnea (adult) (pediatric); I48.91 Unspecified atrial fibrillation; E21.3 Hyperparathyroidism, unspecified; K74.60 Unspecified cirrhosis of liver; D69.6 Thrombocytopenia, unspecified; D63.1 Anemia in chronic kidney disease; I27.20 Pulmonary hypertension, unspecified; F41.9 Anxiety disorder, unspecified; R26.89 Other abnormalities of gait and mobility; Z87.891 Personal history of nicotine dependence; Z99.2 Dependence on renal dialysis; Z85.528 Personal history of other malignant neoplasm of kidney; Z90.5 Acquired absence of kidney; Z90.79 Acquired absence of other genital organ(s)

== ENCOUNTER 2024-10-03 21:51 | Emergency (ER) | payer OTHER, MEDICAID ==
[~2024-10-03] VITALS: Ht 154.9 cm; Wt 65.9 kg
[~2024-10-03 21:51] MED LIST changes: +CEFD300CAP PO; +MAGN64TASA PO; +RISATAB3 PO
[2024-10-03 22:05] VITALS: TEMP 96.8
[2024-10-03 22:33] LABS: BASO # 0.1 10^3/uL (0.0-0.2); BASO % 0.6 % (0.0-1.0); HEMATOCRIT 33.7 % (36.0-47.0); HEMOGLOBIN 10.7 g/dl (12.0-15.5); LYMPH # 0.9 10^3/uL (1.5-5.0); LYMPH % 11.2 % (24.0-44.0); MEAN CORPUSCULAR HEMOGLOBIN 32.3 pg (27.0-33.0); MEAN CORPUSCULAR HGB CONC 31.8 g/dl (32.0-36.5); MEAN CORPUSCULAR VOLUME 101.8 fl (80.0-96.0); MONO # 0.6 10^3/uL (0.0-0.8); MONO % 7.7 % (2.0-8.0); NEUTROPHILS # 6.2 10^3/uL (1.5-8.5); NEUTROPHILS % 79.9 % (36.0-66.0); PLATELET COUNT, AUTOMATED 122 10^3/uL (150-450); RED BLOOD COUNT 3.31 10^6/uL (4.00-5.40); WHITE BLOOD COUNT 7.8 10^3/uL (4.0-10.0)
[2024-10-03 23:01] LABS: ALBUMIN 3.6 G/DL (3.2-5.2); ALKALINE PHOSPHATASE 230 U/L (35-104); ALT/SGPT 17 U/L (7.0-40); AST/SGOT 36 U/L (<34); BILIRUBIN,DIRECT < 0.1 MG/DL (<0.4); BILIRUBIN,TOTAL 0.2 MG/DL (0.3-1.2); BLOOD UREA NITROGEN 35 MG/DL (9-23); CALCIUM LEVEL 8.5 MG/DL (8.3-10.6); CARBON DIOXIDE LEVEL 28 MMOL/L (20-31); CHLORIDE LEVEL 97 MMOL/L (98-107); CK-MB VALUE MASS < 1.0 NG/ML (<3.6); CREATININE FOR GFR 6.89 MG/DL (0.55-1.30); GLOMERULAR FILTRATION RATE 6.3 (>45); GLUCOSE, FASTING 106 MG/DL (74-106); SODIUM LEVEL 138 MMOL/L (136-145); TOTAL PROTEIN 7.4 G/DL (5.7-8.2)
[2024-10-03 23:03] LABS: CPK CREATINE PHOSPHOKINASE 36 U/L (34-145); MB/CK RELATIVE INDEX 2.77 (< OR =4)
[2024-10-03 23:58] LABS: CK-MB VALUE MASS < 1.0 NG/ML (<3.6)
[2024-10-04 00:06] LABS: CPK CREATINE PHOSPHOKINASE 25 U/L (34-145)
[2024-10-04] MEDS: ACETAMINOPHEN 325 MG TAB PO ONE (00:33)
[2024-10-04] MEDS: IPRATROPIUM 0.5MG/ALBUTEROL 2.5MG INH SOL UD 3ML (DUONEB) NEB ONE (02:16)
[2024-10-04 02:48] VITALS: O2SAT 97
[2024-10-04 03:00] VITALS: BP 131/60; O2SAT 95
== END 2024-10-04 03:45 | disposition home or self-care (01) ==
LOC: M ED 21:51
DX: J06.9 Acute upper respiratory infection, unspecified (principal); I48.91 Unspecified atrial fibrillation; I11.0 Hypertensive heart disease with heart failure; J44.9 Chronic obstructive pulmonary disease, unspecified; E78.5 Hyperlipidemia, unspecified; N18.6 End stage renal disease; Z99.2 Dependence on renal dialysis; F41.9 Anxiety disorder, unspecified; F32.A Depression, unspecified; Z79.82 Long term (current) use of aspirin; Z79.899 Other long term (current) drug therapy; Z88.8 Allergy status to other drugs, medicaments and biological substances

== ENCOUNTER 2024-10-10 16:19 | Observation (INO) | payer OTHER, MEDICAID ==
[~2024-10-10] VITALS: Ht 154.9 cm; Wt 65.6 kg
[2024-10-10 16:31] VITALS: TEMP 98.2
[2024-10-10 17:58] LABS: VENOUS BASE EXCESS 4.2 (-2.0-2.0); VENOUS HCO3 30.3 MMOL/L (23.0-27.0); VENOUS O2 SATURATION 74.8 % (60.0-80.0); VENOUS PARTIAL PRESSURE CO2 52.3 mmHg (38.0-50.0); VENOUS PARTIAL PRESSURE O2 39.6 mmHg (30.0-50.0); VENOUS PH 7.381 UNITS (7.330-7.430); VENOUS STANDARD HCO3 27.7 MMOL/L; VENOUS TOTAL CO2 31.9 MMOL/L (24.0-28.0)
[2024-10-10 18:08] LABS: BASO % 0.5 % (0.0-1.0); EOS # 0.2 10^3/uL (0.0-0.5); EOS % 3.9 % (0.0-3.0); HEMATOCRIT 34.8 % (36.0-47.0); HEMOGLOBIN 10.8 g/dl (12.0-15.5); LYMPH # 0.5 10^3/uL (1.5-5.0); LYMPH % 7.7 % (24.0-44.0); MEAN CORPUSCULAR HEMOGLOBIN 31.6 pg (27.0-33.0); MEAN CORPUSCULAR VOLUME 101.8 fl (80.0-96.0); MONO # 0.2 10^3/uL (0.0-0.8); MONO % 3.2 % (2.0-8.0); NEUTROPHILS # 5.2 10^3/uL (1.5-8.5); NEUTROPHILS % 84.2 % (36.0-66.0); RED BLOOD COUNT 3.42 10^6/uL (4.00-5.40); WHITE BLOOD COUNT 6.2 10^3/uL (4.0-10.0)
[2024-10-10] MEDS: IPRATROPIUM 0.5MG/ALBUTEROL 2.5MG INH SOL UD 3ML (DUONEB) NEB ONE (18:16)
[2024-10-10 18:31] LABS: PLATELET COUNT, AUTOMATED 83 10^3/uL (150-450)
[2024-10-10 19:31] LABS: CK-MB VALUE MASS < 1.0 NG/ML (<3.6)
[2024-10-10 19:33] LABS: CPK CREATINE PHOSPHOKINASE 26 U/L (34-145); DIGOXIN LEVEL 2.1 NG/ML (0.8-2.0); MB/CK RELATIVE INDEX 3.84 (< OR =4)
[2024-10-10 19:35] LABS: THYROID STIMULATING HORMONE 1.283 uIU/ML (0.55-4.78)
[2024-10-10 19:36] LABS: ALBUMIN 3.6 G/DL (3.2-5.2); ALKALINE PHOSPHATASE 194 U/L (35-104); ALT/SGPT 9 U/L (7.0-40); AST/SGOT 12 U/L (<34); BILIRUBIN,DIRECT < 0.1 MG/DL (<0.4); BILIRUBIN,TOTAL 0.2 MG/DL (0.3-1.2); BLOOD UREA NITROGEN 33 MG/DL (9-23); CALCIUM LEVEL 8.3 MG/DL (8.3-10.6); CARBON DIOXIDE LEVEL 29 MMOL/L (20-31); CHLORIDE LEVEL 99 MMOL/L (98-107); CREATININE FOR GFR 7.47 MG/DL (0.55-1.30); GLOMERULAR FILTRATION RATE 5.8 (>45); GLUCOSE, FASTING 155 MG/DL (74-106); POTASSIUM SERUM 4.6 MMOL/L (3.5-5.1); SODIUM LEVEL 143 MMOL/L (136-145); TOTAL PROTEIN 7.1 G/DL (5.7-8.2)
[2024-10-10] MEDS: ACETAMINOPHEN 325 MG TAB PO ONE (20:20)
[2024-10-10 20:34] LABS: CK-MB VALUE MASS < 1.0 NG/ML (<3.6)
[2024-10-10 20:35] LABS: CPK CREATINE PHOSPHOKINASE 25 U/L (34-145)
[2024-10-10 20:54] VITALS: O2SAT 94
[2024-10-10] MEDS ORDERED: DIGO0.123 PO (21:45)
[2024-10-10] MEDS ORDERED: HOME MED LIST COMPLETE! XX SCH (21:50)
[2024-10-10 23:16] LABS: MAGNESIUM LEVEL 1.8 MG/DL (1.8-2.4); PHOSPHORUS LEVEL 4.5 MG/DL (2.4-5.1)
[2024-10-10] MEDS ORDERED: ONDANSETRON 4MG TAB PO PRN (23:30)
[2024-10-10] MEDS ORDERED: ACETAMINOPHEN 325 MG TAB PO PRN (23:30)
[2024-10-10] MEDS ORDERED: CYCLOBENZAPRINE 5MG TABLET PO PRN (23:30)
[2024-10-10] MEDS ORDERED: ALBUTEROL 90 MCG/ACT 8GM HFA INHALER INH PRN (23:30)
[2024-10-11] MEDS: ROSUVASTATIN 10 MG TAB (CRESTOR) PO SCH (00:26)
[2024-10-11] MEDS: traZODone 100 MG TAB PO SCH (00:27)
[2024-10-11] MEDS: METOPROLOL TARTRATE 100MG TAB PO SCH (00:27)
[2024-10-11] MEDS: diazePAM 2 MG TAB PO PRN (00:28)
[2024-10-11] MEDS ORDERED: HEPARIN SOD (PORCINE) 5000UNITS/ML 1ML VIAL/SYRINGE SC SCH (06:00)
[2024-10-11] MEDS: TIOTROPIUM INHALER/CAPSULE (SPIRIVA) INH SCH (08:10)
[2024-10-11] MEDS: ADVAIR HFA 115/21MCG INHALER INH SCH (08:11)
[2024-10-11] MEDS ORDERED: SODIUM CHLORIDE 0.9% 1000 ML IV PRN (08:30)
[2024-10-11] MEDS ORDERED: HEPARIN 1,000UNITS/ML 10ML VIAL (FOR RADIOLOGY & DIALYSIS ONLY) IV PRN (08:30)
[2024-10-11] MEDS ORDERED: LIDOCAINE 1% SDV 5ML VIAL SC PRN (08:30)
[2024-10-11 08:58] VITALS: BP 139/60
[2024-10-11] MEDS: OMEPRAZOLE 20MG CAP PO SCH (08:58)
[2024-10-11] MEDS: ASPIRIN ENTERIC 325MG TAB PO SCH (08:58)
[2024-10-11 09:00] VITALS: BP 119/60; O2SAT 100
[2024-10-11] MEDS: SUCROFERRIC OXYHYDROXIDE 500MG CHEW TAB (VELPHORO) PO SCH (09:08)
[2024-10-11] MEDS: HEPARIN 1,000UNITS/ML 10ML VIAL (FOR RADIOLOGY & DIALYSIS ONLY) XX SCH (09:57)
[2024-10-11] MEDS ORDERED: BEVE1AER INH (13:21)
[2024-10-11] MEDS ORDERED: ALBU8.5H INH (13:21)
== END 2024-10-11 09:18 | disposition home or self-care (01) ==
LOC: M ED 16:19 → M ED INP 16:20
PROVIDERS: ADMIT Internal Medicine; ATTEND Internal Medicine
DX: F41.9 Anxiety disorder, unspecified (principal); M62.81 Muscle weakness (generalized); R06.02 Shortness of breath; R89.2 Abnormal level of other drugs, medicaments and biological substances in specimens from other organs, systems and tissues; N18.6 End stage renal disease; I12.0 Hypertensive chronic kidney disease with stage 5 chronic kidney disease or end stage renal disease; G47.33 Obstructive sleep apnea (adult) (pediatric); I48.91 Unspecified atrial fibrillation; D63.8 Anemia in other chronic diseases classified elsewhere; E03.9 Hypothyroidism, unspecified; I50.30 Unspecified diastolic (congestive) heart failure; I27.0 Primary pulmonary hypertension; F39 Unspecified mood [affective] disorder; K74.60 Unspecified cirrhosis of liver; D69.59 Other secondary thrombocytopenia; Z79.82 Long term (current) use of aspirin; Z79.899 Other long term (current) drug therapy
CPT/HCPCS: 70450; 71045; 71250; 80048; 80076; 80162; 82550; 82553; 82803; 83735; 83880; 84100; 84443; 84484; 85025; 85049; 85055; 87486; 87581; 87633; 87798; 93005; 93041; 94640; 94760; 97161; 99285; G0257; G0378

== ENCOUNTER → 2024-10-12 | Outpatient (REF) | payer OTHER, MEDICAID ==
[2024-10-12 19:08] LABS: ALBUMIN 3.6 G/DL (3.2-5.2); ALKALINE PHOSPHATASE 225 U/L (35-104); ALT/SGPT 14 U/L (7.0-40); AST/SGOT 15 U/L (<34); BILIRUBIN,DIRECT < 0.1 MG/DL (<0.4); BILIRUBIN,TOTAL 0.2 MG/DL (0.3-1.2); TOTAL PROTEIN 7.3 G/DL (5.7-8.2)
== END ==
LOC: M LAB REF 17:50
PROVIDERS: ATTEND Student in an Organized Health Care Education/Training Program
DX: K74.60 Unspecified cirrhosis of liver (principal)

== ENCOUNTER → 2024-10-14 | Outpatient (REF) | payer OTHER, MEDICAID | LOC: M LAB REF 17:22 | PROVIDERS: ATTEND Student in an Organized Health Care Education/Training Program | DX: R74.8 Abnormal levels of other serum enzymes (principal) ==

== ENCOUNTER 2024-12-05 19:08 | Emergency (ER) | payer OTHER, MEDICAID ==
[~2024-12-05 19:08] MED LIST changes: +AMMO12CR4 TOP; -AMMO12CR7 TOP; -FLOM0.4C39 PO; +LIDO1ADH93 TOP; -LIDO5DIS41 TOP; +TAMS-18 PO
[2024-12-05 19:52] LABS: VENOUS BASE EXCESS 0.2 (-2.0-2.0); VENOUS HCO3 28.2 MMOL/L (23.0-27.0); VENOUS O2 SATURATION 76.2 % (60.0-80.0); VENOUS PARTIAL PRESSURE O2 47.3 mmHg (30.0-50.0); VENOUS PH 7.268 UNITS (7.330-7.430); VENOUS STANDARD HCO3 24.2 MMOL/L; VENOUS TOTAL CO2 30.1 MMOL/L (24.0-28.0)
[2024-12-05 20:00] LABS: BASO % 0.6 % (0.0-1.0); HEMATOCRIT 33.1 % (36.0-47.0); HEMOGLOBIN 10.2 g/dl (12.0-15.5); LYMPH # 0.9 10^3/uL (1.5-5.0); LYMPH % 19.3 % (24.0-44.0); MEAN CORPUSCULAR HEMOGLOBIN 31.5 pg (27.0-33.0); MEAN CORPUSCULAR HGB CONC 30.8 g/dl (32.0-36.5); MEAN CORPUSCULAR VOLUME 102.2 fl (80.0-96.0); MONO # 0.4 10^3/uL (0.0-0.8); MONO % 8.6 % (2.0-8.0); NEUTROPHILS # 3.4 10^3/uL (1.5-8.5); NEUTROPHILS % 70.9 % (36.0-66.0); RED BLOOD COUNT 3.24 10^6/uL (4.00-5.40); WHITE BLOOD COUNT 4.8 10^3/uL (4.0-10.0)
[2024-12-05 20:01] LABS: PLATELET COUNT, AUTOMATED 95 10^3/uL (150-450)
[2024-12-05 20:20] LABS: CK-MB VALUE MASS < 1.0 NG/ML (<3.6)
[2024-12-05 20:23] LABS: CPK CREATINE PHOSPHOKINASE 23 U/L (34-145); MB/CK RELATIVE INDEX 4.34 (< OR =4)
[2024-12-05 20:25] LABS: ALBUMIN 3.6 G/DL (3.2-5.2); ALKALINE PHOSPHATASE 179 U/L (35-104); ALT/SGPT 17 U/L (7.0-40); AST/SGOT 15 U/L (<34); BILIRUBIN,DIRECT < 0.1 MG/DL (<0.4); BILIRUBIN,TOTAL 0.2 MG/DL (0.3-1.2); BLOOD UREA NITROGEN 54 MG/DL (9-23); CALCIUM LEVEL 8.4 MG/DL (8.3-10.6); CARBON DIOXIDE LEVEL 31 MMOL/L (20-31); CHLORIDE LEVEL 99 MMOL/L (98-107); CREATININE FOR GFR 8.65 MG/DL (0.55-1.30); GLOMERULAR FILTRATION RATE 4.6 (>45); GLUCOSE, FASTING 105 MG/DL (74-106); POTASSIUM SERUM 4.7 MMOL/L (3.5-5.1); SODIUM LEVEL 141 MMOL/L (136-145); TOTAL PROTEIN 7.2 G/DL (5.7-8.2)
[2024-12-05 20:30] VITALS: BP 146/66
[2024-12-05 20:53] VITALS: TEMP 98.3
[2024-12-05] MEDS: IPRATROPIUM 0.5MG/ALBUTEROL 2.5MG INH SOL UD 3ML NEB ONE (20:54)
[2024-12-05 21:25] LABS: CK-MB VALUE MASS < 1.0 NG/ML (<3.6)
[2024-12-05 21:34] LABS: CPK CREATINE PHOSPHOKINASE 16 U/L (34-145); MB/CK RELATIVE INDEX 6.25 (< OR =4)
[2024-12-05 21:38] VITALS: O2SAT 100
== END 2024-12-05 22:42 | disposition home or self-care (01) ==
LOC: M ED 19:08 → EDBD 19:08 → M ED 22:42
DX: R06.00 Dyspnea, unspecified (principal); I48.91 Unspecified atrial fibrillation; I50.9 Heart failure, unspecified; E11.9 Type 2 diabetes mellitus without complications; J44.9 Chronic obstructive pulmonary disease, unspecified; E03.9 Hypothyroidism, unspecified; Z99.2 Dependence on renal dialysis; D69.6 Thrombocytopenia, unspecified; Z79.82 Long term (current) use of aspirin; Z79.899 Other long term (current) drug therapy; Z88.8 Allergy status to other drugs, medicaments and biological substances

== ENCOUNTER → 2025-02-13 | Outpatient (CLI) | payer OTHER, MEDICAID ==
[~2025-02-13] MED LIST changes: -AMIO200T49 PO; +AMIO200T54 PO
== END ==
LOC: M WHC 10:36
PROVIDERS: ATTEND Student in an Organized Health Care Education/Training Program
DX: Z12.31 Encounter for screening mammogram for malignant neoplasm of breast (principal); R92.323 Mammographic fibroglandular density, bilateral breasts

== ENCOUNTER 2025-03-21 16:18 | Emergency (ER) | payer OTHER, MEDICAID ==
[~2025-03-21] VITALS: Ht 154.9 cm; Wt 65.5 kg
[~2025-03-21 16:18] MED LIST changes: -HEPA500011 IV; +HEPA50002 IV; +SLOW1TAB3 PO; -SLOWTAB2 PO
[2025-03-21] MEDS ORDERED: TRAZ-257 PO (16:58)
[2025-03-21 17:08] LABS: BASO # 0.0 10^3/uL (0.0-0.2); BASO % 0.5 % (0.0-1.0); EOS # 0.0 10^3/uL (0.0-0.5); EOS % 0.0 % (0.0-3.0); LYMPH # 0.8 10^3/uL (1.5-5.0); LYMPH % 12.6 % (24.0-44.0); MONO # 0.5 10^3/uL (0.0-0.8); MONO % 8.0 % (2.0-8.0); NEUTROPHILS # 4.8 10^3/uL (1.5-8.5); NEUTROPHILS % 78.6 % (36.0-66.0); PLATELET COUNT, AUTOMATED 106 10^3/uL (150-450)
[2025-03-21 17:30] LABS: ALT/SGPT 13 U/L (7.0-40); AST/SGOT 30 U/L (<34); CALCIUM LEVEL 8.5 MG/DL (8.3-10.6); CARBON DIOXIDE LEVEL 31 MMOL/L (20-31); CHLORIDE LEVEL 95 MMOL/L (98-107); CREATININE FOR GFR 4.61 MG/DL (0.55-1.30); GLOMERULAR FILTRATION RATE 9.7 (>45); POTASSIUM SERUM 5.0 MMOL/L (3.5-5.1); SODIUM LEVEL 139 MMOL/L (136-145)
[2025-03-21] MEDS: IPRATROPIUM 0.5 MG/ALBUTEROL 2.5 MG INH SOL UD 3 ML NEB ONE ×2 (20:17)
[2025-03-21 20:19] LABS: CK-MB VALUE MASS < 1.0 NG/ML (<3.6)
[2025-03-21 20:28] LABS: CPK CREATINE PHOSPHOKINASE 41 U/L (34-145)
[2025-03-21 21:32] VITALS: O2SAT 91
[2025-03-21] MEDS ORDERED: COMBAER6 INH (22:19)
[2025-03-21] MEDS ORDERED: PRED20TA PO (22:19)
[2025-03-21 22:35] VITALS: BP 142/63; TEMP 97.1; O2SAT 93
== END 2025-03-21 22:36 | disposition home or self-care (01) ==
LOC: M ED 16:18 → EDBD 16:18 → M ED INP 16:47 → UNDOADMOB 16:47 → M ED 22:36
DX: J44.1 Chronic obstructive pulmonary disease with (acute) exacerbation (principal); I48.91 Unspecified atrial fibrillation; I10 Essential (primary) hypertension; E78.5 Hyperlipidemia, unspecified; K21.9 Gastro-esophageal reflux disease without esophagitis; Z99.2 Dependence on renal dialysis; Z99.81 Dependence on supplemental oxygen; F41.9 Anxiety disorder, unspecified; F32.A Depression, unspecified; Z87.891 Personal history of nicotine dependence; Z79.82 Long term (current) use of aspirin; Z79.899 Other long term (current) drug therapy; Z88.8 Allergy status to other drugs, medicaments and biological substances
CPT/HCPCS: 71045; 80048; 80076; 82550; 82553; 83880; 84484; 85025; 87486; 87581; 87633; 87798; 93005; 93041; 94640; 94760; 96374; 99285; J1100

== ENCOUNTER → 2025-03-23 | Outpatient (CLI) | payer OTHER, MEDICAID ==
[~2025-03-23] MED LIST changes: +COMBAER6 INH; +TRAZ-257 PO
== END ==
LOC: M RAD 09:57
PROVIDERS: ATTEND Student in an Organized Health Care Education/Training Program
DX: K74.60 Unspecified cirrhosis of liver (principal); N28.1 Cyst of kidney, acquired; R16.0 Hepatomegaly, not elsewhere classified

== ENCOUNTER 2025-03-28 16:59 | Emergency (ER) | payer OTHER, MEDICAID ==
[~2025-03-28] VITALS: Ht 154.9 cm; Wt 56.0 kg
[2025-03-28 19:45] LABS: PLATELET COUNT, AUTOMATED 118 10^3/uL (150-450)
[2025-03-28 19:58] LABS: INR 0.87
[2025-03-28 22:00] VITALS: BP 172/75; TEMP 98.4; O2SAT 95
== END 2025-03-28 22:10 | disposition home or self-care (01) ==
LOC: EDBD 16:59 → M ED 16:59
DX: T82.838A Hemorrhage due to vascular prosthetic devices, implants and grafts, initial encounter (principal); I10 Essential (primary) hypertension; E78.5 Hyperlipidemia, unspecified; J44.9 Chronic obstructive pulmonary disease, unspecified; Z99.2 Dependence on renal dialysis; Z87.442 Personal history of urinary calculi; Z79.82 Long term (current) use of aspirin; Z79.899 Other long term (current) drug therapy; Z88.8 Allergy status to other drugs, medicaments and biological substances

== ENCOUNTER → 2025-03-31 | Outpatient (CLI) | payer OTHER, MEDICAID | LOC: M WHC 14:18 | PROVIDERS: ATTEND Student in an Organized Health Care Education/Training Program | DX: M81.0 Age-related osteoporosis without current pathological fracture (principal) ==

== ENCOUNTER 2025-04-11 09:21 | Emergency (ER) | payer OTHER, MEDICAID ==
[~2025-04-11] VITALS: Ht 152.4 cm; Wt 66.6 kg
[2025-04-11 10:14] LABS: PLATELET COUNT, AUTOMATED 79 10^3/uL (150-450)
[2025-04-11 11:27] LABS: CALCIUM LEVEL 7.8 MG/DL (8.3-10.6); CARBON DIOXIDE LEVEL 35.0 MMOL/L (20-31); CHLORIDE LEVEL 94.0 MMOL/L (98-107); CREATININE FOR GFR 4.58 MG/DL (0.55-1.30); GLOMERULAR FILTRATION RATE 9.8 (>45); POTASSIUM SERUM 4.2 MMOL/L (3.5-5.1); SODIUM LEVEL 137.0 MMOL/L (136-145)
[2025-04-11] MEDS: ACETAMINOPHEN 500 MG TAB PO ONE (11:35)
[2025-04-11 12:17] VITALS: BP 141/64; TEMP 98.2; O2SAT 92
== END 2025-04-11 12:16 | disposition home or self-care (01) ==
LOC: M ED 09:21
DX: T82.838A Hemorrhage due to vascular prosthetic devices, implants and grafts, initial encounter (principal); I48.91 Unspecified atrial fibrillation; I13.2 Hypertensive heart and chronic kidney disease with heart failure and with stage 5 chronic kidney disease, or end stage renal disease; I50.9 Heart failure, unspecified; N18.6 End stage renal disease; Z99.2 Dependence on renal dialysis; D63.1 Anemia in chronic kidney disease; G47.33 Obstructive sleep apnea (adult) (pediatric); E03.9 Hypothyroidism, unspecified; Z99.81 Dependence on supplemental oxygen; K74.60 Unspecified cirrhosis of liver; Z88.1 Allergy status to other antibiotic agents; Z88.8 Allergy status to other drugs, medicaments and biological substances; Z79.899 Other long term (current) drug therapy

== ENCOUNTER 2025-04-21 09:03 | Emergency (ER) | payer OTHER, MEDICAID ==
[~2025-04-21] VITALS: Ht 152.4 cm; Wt 68.3 kg
[2025-04-21 09:44] LABS: BASO # 0.0 10^3/uL (0.0-0.2); BASO % 0.7 % (0.0-1.0); EOS # 0.0 10^3/uL (0.0-0.5); EOS % 0.0 % (0.0-3.0); LYMPH # 0.6 10^3/uL (1.5-5.0); LYMPH % 10.3 % (24.0-44.0); MONO # 0.6 10^3/uL (0.0-0.8); MONO % 10.0 % (2.0-8.0); NEUTROPHILS # 4.7 10^3/uL (1.5-8.5); NEUTROPHILS % 78.3 % (36.0-66.0); PLATELET COUNT, AUTOMATED 102 10^3/uL (150-450)
[2025-04-21 10:11] LABS: CALCIUM LEVEL 7.6 MG/DL (8.3-10.6); CARBON DIOXIDE LEVEL 34.0 MMOL/L (20-31); CHLORIDE LEVEL 96.0 MMOL/L (98-107); CREATININE FOR GFR 5.01 MG/DL (0.55-1.30); GLOMERULAR FILTRATION RATE 8.8 (>45); POTASSIUM SERUM 5.7 MMOL/L (3.5-5.1); SODIUM LEVEL 138.0 MMOL/L (136-145)
[2025-04-21] MEDS: IPRATROPIUM 0.5 MG/ALBUTEROL 2.5 MG INH SOL UD 3 ML NEB ONE ×2 (10:25→13:53)
[2025-04-21] MEDS: ACETAMINOPHEN 325 MG TAB PO ONE (11:44)
[2025-04-21] MEDS ORDERED: SENS60TA PO (11:50)
[2025-04-21] MEDS ORDERED: VENTAER INH (11:50)
[2025-04-21] MEDS ORDERED: COMBAER6 INH (11:50)
[2025-04-21] MEDS ORDERED: HOME MED LIST COMPLETE! XX SCH (11:55)
[2025-04-21 13:35] VITALS: TEMP 97.8
[2025-04-21 14:15] VITALS: BP 143/65; O2SAT 93
== END 2025-04-21 14:23 | disposition home or self-care (01) ==
LOC: M ED 09:03
DX: J44.9 Chronic obstructive pulmonary disease, unspecified (principal); N18.6 End stage renal disease; Z99.2 Dependence on renal dialysis; I48.91 Unspecified atrial fibrillation; I11.0 Hypertensive heart disease with heart failure; K75.81 Nonalcoholic steatohepatitis (NASH); K74.69 Other cirrhosis of liver; Z87.891 Personal history of nicotine dependence; Z79.82 Long term (current) use of aspirin; Z79.899 Other long term (current) drug therapy; Z88.8 Allergy status to other drugs, medicaments and biological substances

== ENCOUNTER 2025-04-24 13:32 | Inpatient (IN) | payer OTHER, MEDICAID ==
[~2025-04-24] VITALS: Ht 152.4 cm; Wt 69.2 kg
[~2025-04-24 13:32] MED LIST changes: +SENS60TA PO
[2025-04-24 15:19] LABS: BASO # 0.0 10^3/uL (0.0-0.2); BASO % 0.3 % (0.0-1.0); EOS # 0.0 10^3/uL (0.0-0.5); EOS % 0.0 % (0.0-3.0); LYMPH # 0.5 10^3/uL (1.5-5.0); LYMPH % 8.3 % (24.0-44.0); MONO # 0.5 10^3/uL (0.0-0.8); MONO % 8.2 % (2.0-8.0); NEUTROPHILS # 5.4 10^3/uL (1.5-8.5); NEUTROPHILS % 82.7 % (36.0-66.0)
[2025-04-24 15:21] LABS: PLATELET COUNT, AUTOMATED 87 10^3/uL (150-450)
[2025-04-24 15:40] LABS: ALT/SGPT 10.0 U/L (7.0-40); AST/SGOT 11.0 U/L (<34); CALCIUM LEVEL 7.7 MG/DL (8.3-10.6); CARBON DIOXIDE LEVEL 29.0 MMOL/L (20-31); CHLORIDE LEVEL 93.0 MMOL/L (98-107); CREATININE FOR GFR 7.31 MG/DL (0.55-1.30); GLOMERULAR FILTRATION RATE 5.6 (>45); POTASSIUM SERUM 4.1 MMOL/L (3.5-5.1); SODIUM LEVEL 134.0 MMOL/L (136-145)
[2025-04-24] MEDS: ACETAMINOPHEN 325 MG TAB PO ONE (16:36)
[2025-04-24] MEDS: IPRATROPIUM 0.5 MG/ALBUTEROL 2.5 MG INH SOL UD 3 ML NEB SCH (17:43)
[2025-04-24 19:47] LABS: MAGNESIUM LEVEL 1.9 MG/DL (1.8-2.4)
[2025-04-24] MEDS ORDERED: HOME MED LIST COMPLETE! XX SCH (20:00)
[2025-04-24 21:20] LABS: VENOUS PH 7.359 UNITS (7.330-7.430)
[2025-04-24 21:21] LABS: VENOUS BASE EXCESS 4.3 (-2.0-2.0); VENOUS HCO3 30.8 MMOL/L (23.0-27.0); VENOUS O2 SATURATION 68.4 % (60.0-80.0); VENOUS PARTIAL PRESSURE CO2 55.9 mmHg (38.0-50.0); VENOUS PARTIAL PRESSURE O2 37.1 mmHg (30.0-50.0); VENOUS STANDARD HCO3 27.8 MMOL/L; VENOUS TOTAL CO2 32.5 MMOL/L (24.0-28.0)
[2025-04-24] MEDS ORDERED: ALBUTEROL SULFATE 2.5 MG/0.5 ML INH CONCENTRATE NEB SOLN NEB PRN (21:30)
[2025-04-24] MEDS ORDERED: HEPARIN SOD 5000 UNITS/ML 1 ML VIAL/SYRINGE SC SCH (21:30)
[2025-04-24] MEDS ORDERED: diazePAM 2 MG TAB PO PRN (21:30)
[2025-04-24 22:49] LABS: CK-MB VALUE MASS < 1.0 NG/ML (<3.6); PHOSPHORUS LEVEL 4.8 MG/DL (2.4-5.1)
[2025-04-24 22:55] LABS: CPK CREATINE PHOSPHOKINASE < 15 U/L (34-145)
[2025-04-24] MEDS: DOXYCYCLINE HYCLATE 100 MG TABLET PO SCH (23:02)
[2025-04-24] MEDS: ROSUVASTATIN 10 MG TAB PO SCH (23:02)
[2025-04-24] MEDS: DOCUSATE SODIUM 100 MG CAPSULE PO SCH (23:02)
[2025-04-24] MEDS: traZODone 100 MG TAB PO SCH (23:02)
[2025-04-25] MEDS: IPRATROPIUM 0.5 MG/ALBUTEROL 2.5 MG INH SOL UD 3 ML NEB SCH (00:06)
[2025-04-25] MEDS: ACETAMINOPHEN 500 MG TAB PO PRN (01:38)
[2025-04-25] MEDS: CYCLOBENZAPRINE 5 MG TABLET PO PRN (01:38)
[2025-04-25 06:13] LABS: PLATELET COUNT, AUTOMATED 73 10^3/uL (150-450)
[2025-04-25 06:53] LABS: ALT/SGPT < 9 U/L (7.0-40); AST/SGOT < 8 U/L (<34); CALCIUM LEVEL 7.5 MG/DL (8.3-10.6); CARBON DIOXIDE LEVEL 29 MMOL/L (20-31); CHLORIDE LEVEL 93 MMOL/L (98-107); CREATININE FOR GFR 8.16 MG/DL (0.55-1.30); GLOMERULAR FILTRATION RATE 4.9 (>45); MAGNESIUM LEVEL 1.8 MG/DL (1.8-2.4); POTASSIUM SERUM 4.0 MMOL/L (3.5-5.1); SODIUM LEVEL 135 MMOL/L (136-145)
[2025-04-25] MEDS: TIOTROPIUM BROM 2.5MCG/ACTUATION 4GM INH INH SCH (08:05)
[2025-04-25] MEDS: predniSONE 20 MG TAB PO SCH (08:10)
[2025-04-25] MEDS: OMEPRAZOLE 20MG CAP PO SCH (08:10)
[2025-04-25] MEDS: ASPIRIN ENTERIC 325 MG TAB PO SCH (08:11)
[2025-04-25] MEDS: METOPROLOL TARTRATE 100 MG TAB PO SCH (08:11)
[2025-04-25] MEDS ORDERED: SYMBICORT 160/4.5MCG INHALER 6GM INH SCH (09:00)
[2025-04-25 11:15] VITALS: BP 130/70; TEMP 97.5; O2SAT 91
[2025-04-25] MEDS ORDERED: HEPARIN 1,000 UNITS/ML 10 ML VIAL (FOR RADIOLOGY & DIALYSIS ONLY) XX SCH (11:45)
[2025-04-25] MEDS ORDERED: LIDOCAINE 1% SDV 5 ML VIAL SC PRN (11:45)
[2025-04-25] MEDS ORDERED: SODIUM CHLORIDE 0.9% 1000 ML IV PRN (11:45)
[2025-04-25] MEDS ORDERED: HEPARIN 1,000 UNITS/ML 10 ML VIAL (FOR RADIOLOGY & DIALYSIS ONLY) IV PRN (11:45)
[2025-04-25] MEDS: SEVELAMER *CARBONate* 800 MG TAB PO SCH (13:09)
[2025-04-25 16:20] VITALS: BP 140/73; TEMP 97.9; O2SAT 98
[2025-04-25] MEDS: CINACALCET 30 MG TAB PO SCH (17:17)
[2025-04-25] MEDS ORDERED: GLUCAGON INJ 1 MG VIAL SC PRN (17:20)
[2025-04-25] MEDS ORDERED: GLUCOSE 4 GM CHEW PO PRN (17:20)
[2025-04-25] MEDS ORDERED: DEXTROSE 50% 50 ML SYRINGE IV PRN (17:20)
[2025-04-25] MEDS: INSULIN LISPRO (NovoLOG) PER UNIT SC SCH ×3 (18:20→21:40)
[2025-04-25] MEDS: LanTUS (INSULIN GLARGINE INJ) 1 UNITS/0.01 ML SC ONE (18:21)
[2025-04-25 18:52] LABS: ESTIMATED AVERAGE GLUCOSE 177.0 MG/DL (60-110)
[2025-04-25 19:42] VITALS: BP 124/82; TEMP 97.9; O2SAT 94
[2025-04-25 19:44] LABS: CALCIUM LEVEL 7.4 MG/DL (8.3-10.6); CARBON DIOXIDE LEVEL 24.0 MMOL/L (20-31); CHLORIDE LEVEL 91.0 MMOL/L (98-107); CREATININE FOR GFR 8.73 MG/DL (0.55-1.30); GLOMERULAR FILTRATION RATE 4.5 (>45); POTASSIUM SERUM 5.0 MMOL/L (3.5-5.1); SODIUM LEVEL 127.0 MMOL/L (136-145)
[2025-04-25 23:38] VITALS: BP 143/77; TEMP 97.9; O2SAT 94
[2025-04-26] VITALS (7 sets, daily range): BP systolic 121–155; BP diastolic 70–95; TEMP 96.8–98.1; O2SAT 91–98
[2025-04-26 05:59] LABS: PLATELET COUNT, AUTOMATED 103 10^3/uL (150-450)
[2025-04-26 06:42] LABS: CALCIUM LEVEL 7.1 MG/DL (8.3-10.6); CARBON DIOXIDE LEVEL 26.0 MMOL/L (20-31); CHLORIDE LEVEL 92.0 MMOL/L (98-107); CREATININE FOR GFR 9.39 MG/DL (0.55-1.30); GLOMERULAR FILTRATION RATE 4.2 (>45); POTASSIUM SERUM 4.9 MMOL/L (3.5-5.1); SODIUM LEVEL 128.0 MMOL/L (136-145)
[2025-04-26] MEDS: DARBEPOETIN 100 MCG/0.5 ML *DIALYSIS* SYRINGE IV SCH (08:50)
[2025-04-26] MEDS: DIGOXIN 0.125 MG TAB PO SCH (12:45)
[2025-04-27] VITALS (7 sets, daily range): BP systolic 114–171; BP diastolic 66–89; TEMP 97.2–97.9; O2SAT 90–96
[2025-04-27 03:00] LABS: PLATELET COUNT, AUTOMATED 100 10^3/uL (150-450)
[2025-04-27 03:14] LABS: CALCIUM LEVEL 7.7 MG/DL (8.3-10.6); CARBON DIOXIDE LEVEL 27.0 MMOL/L (20-31); CHLORIDE LEVEL 97.0 MMOL/L (98-107); CREATININE FOR GFR 5.21 MG/DL (0.55-1.30); GLOMERULAR FILTRATION RATE 8.4 (>45); MAGNESIUM LEVEL 1.8 MG/DL (1.8-2.4); POTASSIUM SERUM 5.0 MMOL/L (3.5-5.1); SODIUM LEVEL 137.0 MMOL/L (136-145)
[2025-04-27] MEDS ORDERED: SODIUM CHLORIDE 0.9% 1000 ML IV PRN (06:00)
[2025-04-27] MEDS ORDERED: HEPARIN 1,000 UNITS/ML 10 ML VIAL (FOR RADIOLOGY & DIALYSIS ONLY) IV PRN (06:00)
[2025-04-27] MEDS ORDERED: LIDOCAINE 1% SDV 5 ML VIAL SC PRN (06:00)
[2025-04-27 07:09] LABS: PLATELET COUNT, AUTOMATED 131 10^3/uL (150-450)
[2025-04-27 07:19] LABS: CALCIUM LEVEL 8.0 MG/DL (8.3-10.6); CARBON DIOXIDE LEVEL 26.0 MMOL/L (20-31); CHLORIDE LEVEL 99.0 MMOL/L (98-107); CREATININE FOR GFR 5.47 MG/DL (0.55-1.30); GLOMERULAR FILTRATION RATE 7.9 (>45); POTASSIUM SERUM 5.0 MMOL/L (3.5-5.1); SODIUM LEVEL 133.0 MMOL/L (136-145)
[2025-04-27] MEDS: HEPARIN 1,000 UNITS/ML 10 ML VIAL (FOR RADIOLOGY & DIALYSIS ONLY) XX SCH (09:56)
[2025-04-27] MEDS: LanTUS (INSULIN GLARGINE INJ) 1 UNITS/0.01 ML SC SCH (12:45)
[2025-04-28 00:04] VITALS: BP 151/78; TEMP 98.2; O2SAT 90
[2025-04-28 04:18] VITALS: BP 135/68; TEMP 98.2; O2SAT 97
[2025-04-28 06:17] LABS: PLATELET COUNT, AUTOMATED 119 10^3/uL (150-450)
[2025-04-28 06:38] LABS: CALCIUM LEVEL 7.6 MG/DL (8.3-10.6); CARBON DIOXIDE LEVEL 30.0 MMOL/L (20-31); CHLORIDE LEVEL 94.0 MMOL/L (98-107); CREATININE FOR GFR 4.23 MG/DL (0.55-1.30); GLOMERULAR FILTRATION RATE 10.8 (>45); POTASSIUM SERUM 4.4 MMOL/L (3.5-5.1); SODIUM LEVEL 136.0 MMOL/L (136-145)
[2025-04-28] MEDS: INSULIN LISPRO (NovoLOG) PER UNIT SC SCH (07:30)
[2025-04-28 08:00] VITALS: BP 135/74; TEMP 97.5; O2SAT 90
[2025-04-28 08:27] VITALS: BP 135/70
[2025-04-28 08:57] VITALS: O2SAT 88
[2025-04-28] MEDS: LanTUS (INSULIN GLARGINE INJ) 1 UNITS/0.01 ML SC SCH (09:15)
[2025-04-28] MEDS ORDERED: VENTAER INH (10:49)
[2025-04-28] MEDS ORDERED: PRED10TA2 PO (10:49)
[2025-04-28] MEDS: FLUZONE HIGH DOSE (65+) 0.5 ML SYRINGE (25-26) IM.IMMUN ONE (11:41)
[2025-04-28 12:00] VITALS: BP 137/72; TEMP 97.5; O2SAT 91
[2025-04-30] MEDS ORDERED: predniSONE 10 MG TAB PO SCH (09:00)
== END 2025-04-28 13:35 | disposition home health service (06) | DRG 190 ==
LOC: M ED 13:32 → M ED INP 21:27 → M MSPAV 04-25 11:09
PROVIDERS: ADMIT Student in an Organized Health Care Education/Training Program; ATTEND General Practice
PROC: 5A1D70Z Performance of Urinary Filtration, Intermittent, Less than 6 Hours Per Day (ICD-10-PCS; principal; 2025-04-26)
DX: J44.1 Chronic obstructive pulmonary disease with (acute) exacerbation (principal); N18.6 End stage renal disease; I50.32 Chronic diastolic (congestive) heart failure; I13.2 Hypertensive heart and chronic kidney disease with heart failure and with stage 5 chronic kidney disease, or end stage renal disease; K75.81 Nonalcoholic steatohepatitis (NASH); I48.91 Unspecified atrial fibrillation; G47.33 Obstructive sleep apnea (adult) (pediatric); E11.22 Type 2 diabetes mellitus with diabetic chronic kidney disease; I27.20 Pulmonary hypertension, unspecified; E11.42 Type 2 diabetes mellitus with diabetic polyneuropathy; D63.8 Anemia in other chronic diseases classified elsewhere; E03.9 Hypothyroidism, unspecified; F41.9 Anxiety disorder, unspecified; Z79.82 Long term (current) use of aspirin; Z79.899 Other long term (current) drug therapy; Z88.8 Allergy status to other drugs, medicaments and biological substances; Z90.79 Acquired absence of other genital organ(s); Z87.891 Personal history of nicotine dependence; Z85.528 Personal history of other malignant neoplasm of kidney; Z90.5 Acquired absence of kidney; Z99.2 Dependence on renal dialysis

== ENCOUNTER 2025-05-11 19:00 | Emergency (ER) | payer OTHER, MEDICAID ==
[~2025-05-11] VITALS: Ht 152.4 cm; Wt 65.5 kg
[2025-05-11 19:28] LABS: BASO # 0.0 10^3/uL (0.0-0.2); BASO % 0.2 % (0.0-1.0); EOS # 0.0 10^3/uL (0.0-0.5); EOS % 0.0 % (0.0-3.0); LYMPH # 0.7 10^3/uL (1.5-5.0); LYMPH % 11.0 % (24.0-44.0); MONO # 0.5 10^3/uL (0.0-0.8); MONO % 7.8 % (2.0-8.0); NEUTROPHILS # 5.2 10^3/uL (1.5-8.5); NEUTROPHILS % 80.7 % (36.0-66.0)
[2025-05-11 19:54] LABS: ALT/SGPT 16 U/L (7.0-40); AST/SGOT 12 U/L (<34); CALCIUM LEVEL 8.4 MG/DL (8.3-10.6); CARBON DIOXIDE LEVEL 31 MMOL/L (20-31); CHLORIDE LEVEL 95 MMOL/L (98-107); CREATININE FOR GFR 7.93 MG/DL (0.55-1.30); GLOMERULAR FILTRATION RATE 5.1 (>45); POTASSIUM SERUM 5.0 MMOL/L (3.5-5.1); SODIUM LEVEL 139 MMOL/L (136-145)
[2025-05-11 20:01] LABS: PLATELET COUNT, AUTOMATED 93 10^3/uL (150-450)
[2025-05-11 21:14] LABS: MAGNESIUM LEVEL 2.0 MG/DL (1.8-2.4); PHOSPHORUS LEVEL 5.9 MG/DL (2.4-5.1)
[2025-05-11] MEDS: MORPHINE 2 MG/ML 1 ML VIAL IV ONE (21:22)
[2025-05-11] MEDS: IPRATROPIUM 0.5 MG/ALBUTEROL 2.5 MG INH SOL UD 3 ML NEB ONE (21:22)
[2025-05-11] MEDS: ONDANSETRON 4MG 2ML VIAL IV ONE (21:22)
[2025-05-11] MEDS ORDERED: SIME80CH5 PO (23:31)
[2025-05-11] MEDS ORDERED: DICY1CAP8 PO (23:31)
[2025-05-11 23:45] VITALS: O2SAT 98
[2025-05-11 23:46] VITALS: BP 145/63; TEMP 98.3
[2025-05-12] MEDS: PANTOPRAZOLE 40MG TAB PO ONE
[2025-05-12] MEDS: SIMETHICONE 80MG CHEW TAB PO ONE
== END 2025-05-12 00:05 | disposition home or self-care (01) ==
LOC: EDBD 19:00 → M ED 19:00
DX: K59.00 Constipation, unspecified (principal); I50.9 Heart failure, unspecified; I48.91 Unspecified atrial fibrillation; J44.9 Chronic obstructive pulmonary disease, unspecified; N18.6 End stage renal disease; Z99.2 Dependence on renal dialysis; Z87.891 Personal history of nicotine dependence; K74.60 Unspecified cirrhosis of liver; R16.1 Splenomegaly, not elsewhere classified; K57.30 Diverticulosis of large intestine without perforation or abscess without bleeding; Z79.82 Long term (current) use of aspirin; Z79.899 Other long term (current) drug therapy; Z88.8 Allergy status to other drugs, medicaments and biological substances

== ENCOUNTER 2025-05-13 18:29 | Inpatient (IN) | payer OTHER, MEDICAID ==
[~2025-05-13 18:29] MED LIST changes: +DICY1CAP8 PO; +SIME80CH5 PO
[2025-05-13 19:12] LABS: BASO # 0.0 10^3/uL (0.0-0.2); BASO % 0.4 % (0.0-1.0); EOS # 0.0 10^3/uL (0.0-0.5); EOS % 0.0 % (0.0-3.0); LYMPH # 0.7 10^3/uL (1.5-5.0); LYMPH % 9.7 % (24.0-44.0); MONO # 0.5 10^3/uL (0.0-0.8); MONO % 6.6 % (2.0-8.0); NEUTROPHILS # 5.8 10^3/uL (1.5-8.5); NEUTROPHILS % 83.0 % (36.0-66.0); PLATELET COUNT, AUTOMATED 107 10^3/uL (150-450)
[2025-05-13 19:25] LABS: INR 0.94
[2025-05-13 19:37] LABS: ALT/SGPT 19 U/L (7.0-40); AST/SGOT 34 U/L (<34); CALCIUM LEVEL 7.9 MG/DL (8.3-10.6); CARBON DIOXIDE LEVEL 32 MMOL/L (20-31); CHLORIDE LEVEL 96 MMOL/L (98-107); CK-MB VALUE MASS < 1.0 NG/ML (<3.6); CPK CREATINE PHOSPHOKINASE 28 U/L (34-145); CREATININE FOR GFR 6.41 MG/DL (0.55-1.30); FREE T4 1.15 NG/DL (0.89-1.76); GLOMERULAR FILTRATION RATE 6.6 (>45); POTASSIUM SERUM 5.1 MMOL/L (3.5-5.1); SODIUM LEVEL 141 MMOL/L (136-145)
[2025-05-13] MEDS: IPRATROPIUM 0.5 MG/ALBUTEROL 2.5 MG INH SOL UD 3 ML NEB ONE ×2 (19:56)
[2025-05-13] MEDS: ALBUTEROL SULFATE 2.5 MG/0.5 ML INH CONCENTRATE NEB SOLN NEB ONE (19:56)
[2025-05-13] MEDS: ACETAMINOPHEN *IV* 1,000 MG in IV 1 EA IV ONE (21:08)
[2025-05-13] MEDS ORDERED: ACETAMINOPHEN 325 MG TAB PO PRN (23:55)
[2025-05-14] VITALS (19 sets, daily range): BP systolic 115–137; BP diastolic 55–63; TEMP 97–98.7; O2SAT 90–100
[2025-05-14] MEDS ORDERED: MAGNESIUM CITRATE 300 ML BTL PO ONE (01:00)
[2025-05-14] MEDS: LEVALBUTEROL 1.25 MG 0.5ML CONCENTRATE NEB NEB SCH (01:34)
[2025-05-14] MEDS ORDERED: HOME MED LIST COMPLETE! XX SCH (02:25)
[2025-05-14] MEDS: BISACODYL 10 MG SUPP PR SCH (02:28)
[2025-05-14] MEDS: AZITHROMYCIN INJ 500 MG, VIAL MATE ADAPTER 1 EACH in NS 250 ML IV SCH (02:28)
[2025-05-14] MEDS: SYMBICORT 160/4.5MCG INHALER 6GM INH SCH (08:03)
[2025-05-14 08:31] LABS: ALT/SGPT 13 U/L (7.0-40); AST/SGOT 10 U/L (<34); CALCIUM LEVEL 7.9 MG/DL (8.3-10.6); CARBON DIOXIDE LEVEL 28 MMOL/L (20-31); CHLORIDE LEVEL 96 MMOL/L (98-107); CREATININE FOR GFR 7.59 MG/DL (0.55-1.30); GLOMERULAR FILTRATION RATE 5.4 (>45); MAGNESIUM LEVEL 1.9 MG/DL (1.8-2.4); POTASSIUM SERUM 5.5 MMOL/L (3.5-5.1); SODIUM LEVEL 138 MMOL/L (136-145)
[2025-05-14] MEDS ORDERED: ISOVUE-370 76% 100 ML VIAL As Ordered ONE (09:01)
[2025-05-14] MEDS: PANTOPRAZOLE 40MG VIAL IV SCH (09:08)
[2025-05-14] MEDS: SENNA 8.6 MG TAB PO SCH (09:09)
[2025-05-14] MEDS: HEPARIN SOD 5000 UNITS/ML 1 ML VIAL/SYRINGE SC SCH (09:09)
[2025-05-14] MEDS: DOCUSATE SODIUM 100 MG CAPSULE PO SCH (09:09)
[2025-05-14] MEDS: guaiFENesin ER TABLET 600 MG TAB PO SCH (09:09)
[2025-05-14] MEDS: MONTELUKAST 10 MG TAB PO SCH (09:09)
[2025-05-14] MEDS ORDERED: LIDOCAINE 1% SDV 5 ML VIAL SC PRN (11:15)
[2025-05-14] MEDS ORDERED: HEPARIN 1,000 UNITS/ML 10 ML VIAL (FOR RADIOLOGY & DIALYSIS ONLY) IV PRN (11:15)
[2025-05-14] MEDS ORDERED: SODIUM CHLORIDE 0.9% 1000 ML IV PRN (11:15)
[2025-05-14] MEDS ORDERED: DEXTROSE 50% 50 ML SYRINGE IV PRN ×2 (13:00→18:10)
[2025-05-14] MEDS ORDERED: PIPERACILLIN/TAZOBACTAM SOD 2.25 GM in DEXTROSE 5% (D5W) ADV/MINI-BAG 50 ML IV SCH (13:00)
[2025-05-14] MEDS ORDERED: GLUCOSE 4 GM CHEW PO PRN (13:00)
[2025-05-14] MEDS ORDERED: GLUCAGON INJ 1 MG VIAL SC PRN (13:00)
[2025-05-14] MEDS ORDERED: ALBUTEROL SULFATE 2.5 MG/0.5 ML INH CONCENTRATE NEB SOLN NEB PRN (13:05)
[2025-05-14 13:21] LABS: HEPATITIS B SURFACE ANTIBODY NEGATIVE (POSITIVE); HEPATITIS C VIRUS ABY INDEX < 0.02 INDEX (<0.8)
[2025-05-14] MEDS: HEPARIN 1,000 UNITS/ML 10 ML VIAL (FOR RADIOLOGY & DIALYSIS ONLY) XX SCH (14:41)
[2025-05-14] MEDS: IPRATROPIUM 0.5 MG/ALBUTEROL 2.5 MG INH SOL UD 3 ML NEB SCH (16:54)
[2025-05-14] MEDS: PIPERACILLIN/TAZOBACTAM SOD 4.5 GM in DEXTROSE 5% (D5W) ADV/MINI-BAG 50 ML IV SCH (18:48)
[2025-05-14] MEDS: METOPROLOL TARTRATE 100 MG TAB PO SCH (18:49)
[2025-05-14] MEDS: INSULIN LISPRO (NovoLOG) PER UNIT SC SCH ×2 (18:51→21:02)
[2025-05-14] MEDS: CINACALCET 30 MG TAB PO SCH (18:57)
[2025-05-14] MEDS: MOM 30 ML SUSPENSION UDC PO PRN (18:57)
[2025-05-14] MEDS: ROSUVASTATIN 10 MG TAB PO SCH (21:00)
[2025-05-14] MEDS: traZODone 100 MG TAB PO SCH (21:00)
[2025-05-14] MEDS: diazePAM 2 MG TAB PO PRN (21:01)
[2025-05-15] VITALS (20 sets, daily range): BP systolic 119–161; BP diastolic 59–72; TEMP 96.8–98; O2SAT 91–100
[2025-05-15 07:27] LABS: APPEARANCE, URINE CLOUDY (CLEAR); BACTERIA, URINE AUTO NEGATIVE (NEGATIVE); BILIRUBIN, URINE AUTO NEGATIVE (NEGATIVE); BLOOD, URINE BLOOD 1+ (NEGATIVE); GLUCOSE, URINE (UA) AUTO 3+ mg/dL (NEGATIVE); KETONE, URINE AUTO NEGATIVE (NEGATIVE); LEUKOCYTE ESTERASE, URINE AUTO 2+ (NEGATIVE); NITRITE, URINE AUTO NEGATIVE (NEGATIVE); PROTEIN, URINE AUTO 2+ mg/dL (NEGATIVE); RBC, URINE AUTO 5 /HPF (0-3); SPECIFIC GRAVITY URINE AUTO 1.013 (1.002-1.035); SQUAMOUS EPITHELIAL CELL UR AU 31 /HPF (0-6); TRANSITIONAL EPITHELIAL AUTO 3 /HPF; UROBILINOGEN, URINE AUTO 0.2 mg/dL (0.0-2.0); WBC, URINE AUTO 22 /HPF (0-3)
[2025-05-15] MEDS: predniSONE 20 MG TAB PO SCH (08:52)
[2025-05-15] MEDS: OMEPRAZOLE 20MG CAP PO SCH (08:52)
[2025-05-15] MEDS: DIGOXIN 0.125 MG TAB PO SCH (08:53)
[2025-05-15] MEDS: ASPIRIN ENTERIC 325 MG TAB PO SCH (08:53)
[2025-05-15 09:25] LABS: BASO # 0.0 10^3/uL (0.0-0.2); BASO % 0.3 % (0.0-1.0); EOS # 0.0 10^3/uL (0.0-0.5); EOS % 0.0 % (0.0-3.0); LYMPH # 0.8 10^3/uL (1.5-5.0); LYMPH % 10.7 % (24.0-44.0); MONO # 0.4 10^3/uL (0.0-0.8); MONO % 5.9 % (2.0-8.0); NEUTROPHILS # 6.2 10^3/uL (1.5-8.5); NEUTROPHILS % 82.7 % (36.0-66.0); PLATELET COUNT, AUTOMATED 101 10^3/uL (150-450)
[2025-05-15 09:51] LABS: CALCIUM LEVEL 8.5 MG/DL (8.3-10.6); CARBON DIOXIDE LEVEL 28.0 MMOL/L (20-31); CHLORIDE LEVEL 98.0 MMOL/L (98-107); CREATININE FOR GFR 4.71 MG/DL (0.55-1.30); GLOMERULAR FILTRATION RATE 9.5 (>45); POTASSIUM SERUM 4.8 MMOL/L (3.5-5.1); SODIUM LEVEL 139.0 MMOL/L (136-145)
[2025-05-15] MEDS ORDERED: BISACODYL 10 MG SUPP PR PRN (11:55)
[2025-05-15] MEDS: MAALOX 30 ML SUSP *UDC PO PRN (12:58)
[2025-05-15] MEDS: ACETAMINOPHEN 500 MG TAB PO PRN (12:58)
[2025-05-16] VITALS (10 sets, daily range): BP systolic 116–153; BP diastolic 58–74; TEMP 96.7–98.1; O2SAT 95–100
[2025-05-16] MEDS ORDERED: HEPARIN 1,000 UNITS/ML 10 ML VIAL (FOR RADIOLOGY & DIALYSIS ONLY) IV PRN (06:00)
[2025-05-16] MEDS ORDERED: SODIUM CHLORIDE 0.9% 1000 ML IV PRN (06:00)
[2025-05-16] MEDS ORDERED: LIDOCAINE 1% SDV 5 ML VIAL SC PRN (06:00)
[2025-05-16 06:27] LABS: PLATELET COUNT, AUTOMATED 90 10^3/uL (150-450)
[2025-05-16 06:40] LABS: CALCIUM LEVEL 8.2 MG/DL (8.3-10.6); CARBON DIOXIDE LEVEL 24.0 MMOL/L (20-31); CHLORIDE LEVEL 97.0 MMOL/L (98-107); CREATININE FOR GFR 6.07 MG/DL (0.55-1.30); GLOMERULAR FILTRATION RATE 7.0 (>45); PHOSPHORUS LEVEL 5.2 MG/DL (2.4-5.1); POTASSIUM SERUM 5.3 MMOL/L (3.5-5.1); SODIUM LEVEL 136.0 MMOL/L (136-145)
[2025-05-16] MEDS: HEPARIN 1,000 UNITS/ML 10 ML VIAL (FOR RADIOLOGY & DIALYSIS ONLY) XX SCH (10:27)
[2025-05-16] MEDS: SEVELAMER *CARBONate* 800 MG TAB PO SCH (12:30)
[2025-05-16] MEDS: CYCLOBENZAPRINE 5 MG TABLET PO PRN (13:15)
[2025-05-16 13:27] LABS: CALCIUM LEVEL 8.6 MG/DL (8.3-10.6); CARBON DIOXIDE LEVEL 25.0 MMOL/L (20-31); CHLORIDE LEVEL 99.0 MMOL/L (98-107); CREATININE FOR GFR 1.91 MG/DL (0.55-1.30); GLOMERULAR FILTRATION RATE 28.1 (>45); POTASSIUM SERUM 3.6 MMOL/L (3.5-5.1); SODIUM LEVEL 137.0 MMOL/L (136-145)
[2025-05-16 13:44] LABS: ESTIMATED AVERAGE GLUCOSE 186.0 MG/DL (60-110)
[2025-05-16] MEDS: IPRATROPIUM 0.5 MG/ALBUTEROL 2.5 MG INH SOL UD 3 ML NEB PRN (16:06)
[2025-05-16] MEDS: PERCOCET 5MG/325MG TAB PO PRN (22:22)
[2025-05-17 05:10] VITALS: BP 120/61; TEMP 97.9; O2SAT 95
[2025-05-17 06:32] LABS: PLATELET COUNT, AUTOMATED 84 10^3/uL (150-450)
[2025-05-17 07:07] LABS: CALCIUM LEVEL 7.7 MG/DL (8.3-10.6); CARBON DIOXIDE LEVEL 24.0 MMOL/L (20-31); CHLORIDE LEVEL 97.0 MMOL/L (98-107); CREATININE FOR GFR 4.18 MG/DL (0.55-1.30); GLOMERULAR FILTRATION RATE 11.0 (>45); POTASSIUM SERUM 4.8 MMOL/L (3.5-5.1); SODIUM LEVEL 134.0 MMOL/L (136-145)
[2025-05-17] MEDS: TIOTROPIUM BROM 2.5MCG/ACTUATION 4GM INH INH SCH (07:18)
[2025-05-17] MEDS: INSULIN LISPRO (NovoLOG) PER UNIT SC SCH ×2 (07:30→18:28)
[2025-05-17 11:41] VITALS: BP 122/69; TEMP 98.1; O2SAT 96
[2025-05-17] MEDS: AUGMENTIN 500 MG TAB PO SCH (16:10)
[2025-05-17] MEDS: LanTUS (INSULIN GLARGINE INJ) 1 UNITS/0.01 ML SC STA (16:11)
[2025-05-17 20:00] VITALS: BP 105/69; TEMP 97.5; O2SAT 93
[2025-05-17] MEDS: INSULIN LISPRO (NovoLOG) PER UNIT SC ONE (20:21)
[2025-05-17] MEDS ORDERED: INSULIN LISPRO (NovoLOG) PER UNIT SC ONE (21:55)
[2025-05-17 22:16] LABS: VENOUS BASE EXCESS -8.0 (-2.0-2.0); VENOUS HCO3 18.2 MMOL/L (23.0-27.0); VENOUS O2 SATURATION 99.4 % (60.0-80.0); VENOUS PARTIAL PRESSURE CO2 39.7 mmHg (38.0-50.0); VENOUS PARTIAL PRESSURE O2 206.6 mmHg (30.0-50.0); VENOUS PH 7.279 UNITS (7.330-7.430); VENOUS STANDARD HCO3 18.0 MMOL/L; VENOUS TOTAL CO2 19.4 MMOL/L (24.0-28.0)
[2025-05-17] MEDS: HumuLIN R (REGULAR) INSULIN (NovoLIN R) **100 U/ML** PER UNIT SC ONE (22:23)
[2025-05-17 22:49] LABS: CALCIUM LEVEL 7.6 MG/DL (8.3-10.6); CARBON DIOXIDE LEVEL 20.0 MMOL/L (20-31); CHLORIDE LEVEL 98.0 MMOL/L (98-107); CREATININE FOR GFR 5.2 MG/DL (0.55-1.30); GLOMERULAR FILTRATION RATE 8.4 (>45); POTASSIUM SERUM 6.0 MMOL/L (3.5-5.1); SODIUM LEVEL 132.0 MMOL/L (136-145)
[2025-05-17] MEDS: ONDANSETRON 4MG/2ML VIAL IV ONE (23:41)
[2025-05-18 04:00] VITALS: BP 143/78; TEMP 97.7; O2SAT 97
[2025-05-18] MEDS ORDERED: SODIUM CHLORIDE 0.9% 1000 ML IV PRN (06:00)
[2025-05-18] MEDS ORDERED: HEPARIN 1,000 UNITS/ML 10 ML VIAL (FOR RADIOLOGY & DIALYSIS ONLY) IV PRN (06:00)
[2025-05-18] MEDS ORDERED: LIDOCAINE 1% SDV 5 ML VIAL SC PRN (06:00)
[2025-05-18 06:47] LABS: PLATELET COUNT, AUTOMATED 90 10^3/uL (150-450)
[2025-05-18 07:14] LABS: CALCIUM LEVEL 7.9 MG/DL (8.3-10.6); CARBON DIOXIDE LEVEL 23.0 MMOL/L (20-31); CHLORIDE LEVEL 100.0 MMOL/L (98-107); CREATININE FOR GFR 5.8 MG/DL (0.55-1.30); GLOMERULAR FILTRATION RATE 7.4 (>45); POTASSIUM SERUM 5.5 MMOL/L (3.5-5.1); SODIUM LEVEL 137.0 MMOL/L (136-145)
[2025-05-18] MEDS ORDERED: INSULIN LISPRO (NovoLOG) PER UNIT SC SCH (07:30)
[2025-05-18] MEDS: LanTUS (INSULIN GLARGINE INJ) 1 UNITS/0.01 ML SC SCH (07:55)
[2025-05-18] MEDS: INSULIN LISPRO (NovoLOG) PER UNIT SC SCH (07:57)
[2025-05-18] MEDS ORDERED: predniSONE 20 MG TAB PO SCH (09:00)
[2025-05-18] MEDS ORDERED: LanTUS (INSULIN GLARGINE INJ) 1 UNITS/0.01 ML SC SCH (09:00)
[2025-05-18] MEDS: HEPARIN 1,000 UNITS/ML 10 ML VIAL (FOR RADIOLOGY & DIALYSIS ONLY) XX SCH (09:00)
[2025-05-18 12:30] VITALS: BP 105/50; TEMP 97.5; O2SAT 96
[2025-05-18 20:00] VITALS: BP 118/71; TEMP 97.7; O2SAT 91
[2025-05-18 20:02] VITALS: O2SAT 94
[2025-05-19 04:00] VITALS: BP 112/60; TEMP 97.7; O2SAT 99
[2025-05-19 07:18] LABS: CALCIUM LEVEL 7.6 MG/DL (8.3-10.6); CARBON DIOXIDE LEVEL 29.0 MMOL/L (20-31); CHLORIDE LEVEL 96.0 MMOL/L (98-107); CREATININE FOR GFR 4.32 MG/DL (0.55-1.30); GLOMERULAR FILTRATION RATE 10.5 (>45); POTASSIUM SERUM 4.5 MMOL/L (3.5-5.1); SODIUM LEVEL 136.0 MMOL/L (136-145)
[2025-05-19 08:41] VITALS: BP 121/60
[2025-05-19] MEDS ORDERED: HEPARIN 1,000 UNITS/ML 10 ML VIAL (FOR RADIOLOGY & DIALYSIS ONLY) IV PRN (09:10)
[2025-05-19] MEDS ORDERED: LIDOCAINE 1% SDV 5 ML VIAL SC PRN (09:10)
[2025-05-19] MEDS ORDERED: SODIUM CHLORIDE 0.9% 1000 ML IV PRN (09:10)
[2025-05-19] MEDS: HEPARIN 1,000 UNITS/ML 10 ML VIAL (FOR RADIOLOGY & DIALYSIS ONLY) XX SCH (10:08)
[2025-05-19] MEDS ORDERED: LANTINJ4 SC (11:03)
[2025-05-19] MEDS ORDERED: FLAS1KIT2 MC (11:03)
[2025-05-19] MEDS ORDERED: BLOO-259 MC (11:03)
[2025-05-19] MEDS ORDERED: JANU25TA PO (11:03)
[2025-05-19] MEDS ORDERED: AMOX500T2 PO (11:11)
[2025-05-19] MEDS ORDERED: DULC10SU2 PR (11:11)
[2025-05-19 12:00] VITALS: BP 101/53; TEMP 97.5; O2SAT 99
== END 2025-05-19 14:19 | disposition home health service (06) | DRG 871 ==
LOC: M ED 18:29 → M ED INP 23:52 → M PCU 05-14 16:25 → M MSPAV 05-16 13:43
PROVIDERS: ADMIT Student in an Organized Health Care Education/Training Program; ATTEND Student in an Organized Health Care Education/Training Program
DX: A41.9 Sepsis, unspecified organism (principal); N18.6 End stage renal disease; J18.9 Pneumonia, unspecified organism; I50.32 Chronic diastolic (congestive) heart failure; I13.2 Hypertensive heart and chronic kidney disease with heart failure and with stage 5 chronic kidney disease, or end stage renal disease; J44.1 Chronic obstructive pulmonary disease with (acute) exacerbation; J44.0 Chronic obstructive pulmonary disease with (acute) lower respiratory infection; J98.11 Atelectasis; R29.6 Repeated falls; K59.00 Constipation, unspecified; D50.9 Iron deficiency anemia, unspecified; E87.5 Hyperkalemia; G47.33 Obstructive sleep apnea (adult) (pediatric); I27.20 Pulmonary hypertension, unspecified; I48.91 Unspecified atrial fibrillation; E11.65 Type 2 diabetes mellitus with hyperglycemia; K21.9 Gastro-esophageal reflux disease without esophagitis; T38.0X5A Adverse effect of glucocorticoids and synthetic analogues, initial encounter; E11.22 Type 2 diabetes mellitus with diabetic chronic kidney disease; K74.60 Unspecified cirrhosis of liver; D69.6 Thrombocytopenia, unspecified; E78.00 Pure hypercholesterolemia, unspecified; E87.70 Fluid overload, unspecified; R10.11 Right upper quadrant pain; K56.41 Fecal impaction; R65.20 Severe sepsis without septic shock; D63.8 Anemia in other chronic diseases classified elsewhere; E03.9 Hypothyroidism, unspecified; F41.9 Anxiety disorder, unspecified; Z90.5 Acquired absence of kidney; Z79.82 Long term (current) use of aspirin; Z79.899 Other long term (current) drug therapy; Z88.8 Allergy status to other drugs, medicaments and biological substances; Z99.2 Dependence on renal dialysis; Z90.79 Acquired absence of other genital organ(s); Z87.891 Personal history of nicotine dependence

== ENCOUNTER 2025-05-30 21:15 | Observation (INO) | payer OTHER, MEDICAID ==
[~2025-05-30] VITALS: Ht 152.4 cm; Wt 65.0 kg
[~2025-05-30 21:15] MED LIST changes: +BLOO-259 MC; +FLAS1KIT2 MC; +JANU25TA PO
[2025-05-30] MEDS ORDERED: ISOVUE-370 76% 100 ML VIAL As Ordered ONE (21:58)
[2025-05-30 22:11] LABS: VENOUS BASE EXCESS 4.2 (-2.0-2.0); VENOUS HCO3 31.1 MMOL/L (23.0-27.0); VENOUS O2 SATURATION 77.6 % (60.0-80.0); VENOUS PARTIAL PRESSURE CO2 59.5 mmHg (38.0-50.0); VENOUS PARTIAL PRESSURE O2 45.8 mmHg (30.0-50.0); VENOUS PH 7.336 UNITS (7.330-7.430); VENOUS STANDARD HCO3 27.9 MMOL/L; VENOUS TOTAL CO2 32.9 MMOL/L (24.0-28.0)
[2025-05-30 22:17] LABS: BASO # 0.0 10^3/uL (0.0-0.2); BASO % 0.3 % (0.0-1.0); EOS # 0.0 10^3/uL (0.0-0.5); EOS % 0.0 % (0.0-3.0); LYMPH # 0.9 10^3/uL (1.5-5.0); LYMPH % 9.7 % (24.0-44.0); MONO # 0.7 10^3/uL (0.0-0.8); MONO % 7.8 % (2.0-8.0); NEUTROPHILS # 7.6 10^3/uL (1.5-8.5); NEUTROPHILS % 81.6 % (36.0-66.0); PLATELET COUNT, AUTOMATED 100 10^3/uL (150-450)
[2025-05-30 22:39] LABS: CK-MB VALUE MASS < 1.0 NG/ML (<3.6)
[2025-05-30 22:44] LABS: ALT/SGPT 17 U/L (7.0-40); AST/SGOT 31 U/L (<34); CALCIUM LEVEL 8.8 MG/DL (8.3-10.6); CARBON DIOXIDE LEVEL 29 MMOL/L (20-31); CHLORIDE LEVEL 94 MMOL/L (98-107); CPK CREATINE PHOSPHOKINASE 15 U/L (34-145); CREATININE FOR GFR 9.27 MG/DL (0.55-1.30); GLOMERULAR FILTRATION RATE 4.2 (>45); POTASSIUM SERUM 5.8 MMOL/L (3.5-5.1); SODIUM LEVEL 137 MMOL/L (136-145)
[2025-05-30] MEDS: DEXTROSE 50% 50 ML SYRINGE IV ONE (23:36)
[2025-05-30] MEDS: PATIROMER SORBITEX CALCIUM 8.4GM POWDER PACKET PO ONE (23:36)
[2025-05-30] MEDS: HumuLIN R (REGULAR) INSULIN (NovoLIN R) **100 U/ML** PER UNIT IV ONE (23:36)
[2025-05-30 23:42] LABS: CK-MB VALUE MASS < 1.0 NG/ML (<3.6)
[2025-05-30 23:49] LABS: CPK CREATINE PHOSPHOKINASE 16 U/L (34-145)
[2025-05-31] MEDS ORDERED: DEXTROSE 50% 50 ML SYRINGE IV PRN (01:20)
[2025-05-31] MEDS ORDERED: GLUCOSE 4 GM CHEW PO PRN (01:20)
[2025-05-31] MEDS ORDERED: GLUCAGON INJ 1 MG VIAL SC PRN (01:20)
[2025-05-31 03:10] VITALS: BP 127/62; TEMP 97.5; O2SAT 98
[2025-05-31] MEDS: ACETAMINOPHEN 325 MG TAB PO PRN (03:46)
[2025-05-31] MEDS: INSULIN LISPRO (NovoLOG) PER UNIT SC SCH (07:30)
[2025-05-31] MEDS ORDERED: ALB2.5NEB INH (08:14)
[2025-05-31] MEDS ORDERED: JANU25TA PO (08:14)
[2025-05-31] MEDS ORDERED: LANTINJ4 SC (08:14)
[2025-05-31] MEDS ORDERED: COMBAER6 INH (08:14)
[2025-05-31] MEDS ORDERED: HOME MED LIST COMPLETE! XX SCH (08:15)
[2025-05-31] MEDS ORDERED: LIDOCAINE 1% SDV 5 ML VIAL SC PRN (08:40)
[2025-05-31] MEDS ORDERED: SODIUM CHLORIDE 0.9% 1000 ML IV PRN (08:40)
[2025-05-31] MEDS ORDERED: HEPARIN 1,000 UNITS/ML 10 ML VIAL (FOR RADIOLOGY & DIALYSIS ONLY) IV PRN (08:40)
[2025-05-31] MEDS ORDERED: ALBUTEROL 90 MCG/ACT 8 GM HFA INHALER INH PRN (09:15)
[2025-05-31] MEDS ORDERED: CYCLOBENZAPRINE 5 MG TABLET PO PRN (09:15)
[2025-05-31] MEDS ORDERED: COMBIVENT RESPIMAT 100-20 MCG INHALER 4 GM INH PRN (09:15)
[2025-05-31] MEDS: HEPARIN 1,000 UNITS/ML 10 ML VIAL (FOR RADIOLOGY & DIALYSIS ONLY) XX SCH (09:43)
[2025-05-31] MEDS: DIGOXIN 0.125 MG TAB PO SCH (13:27)
[2025-05-31] MEDS: ASPIRIN ENTERIC 325 MG TAB PO SCH (13:27)
[2025-05-31] MEDS: SEVELAMER *CARBONate* 800 MG TAB PO SCH (13:27)
[2025-05-31] MEDS: OMEPRAZOLE 20MG CAP PO SCH (13:27)
[2025-05-31] MEDS: METOPROLOL TARTRATE 100 MG TAB PO SCH (13:28)
[2025-05-31 14:00] VITALS: BP 125/60; TEMP 98.1; O2SAT 92
[2025-05-31 14:15] LABS: CALCIUM LEVEL 9.7 MG/DL (8.3-10.6); CARBON DIOXIDE LEVEL 27.0 MMOL/L (20-31); CHLORIDE LEVEL 97.0 MMOL/L (98-107); CREATININE FOR GFR 4.13 MG/DL (0.55-1.30); GLOMERULAR FILTRATION RATE 11.1 (>45); POTASSIUM SERUM 4.2 MMOL/L (3.5-5.1); SODIUM LEVEL 137.0 MMOL/L (136-145)
[2025-05-31 18:00] VITALS: BP 130/60; TEMP 98.8; O2SAT 100
[2025-05-31] MEDS: ALBUTEROL SULFATE 2.5 MG/0.5 ML INH CONCENTRATE NEB SOLN NEB PRN (18:36)
[2025-05-31] MEDS: diazePAM 2 MG TAB PO PRN (18:40)
[2025-05-31] MEDS: ROSUVASTATIN 10 MG TAB PO SCH (21:09)
[2025-05-31] MEDS: traZODone 100 MG TAB PO SCH (21:10)
[2025-05-31] MEDS: HEPARIN SOD 5000 UNITS/ML 1 ML VIAL/SYRINGE SQ SCH (21:10)
[2025-05-31 22:08] VITALS: BP 148/58; TEMP 99; O2SAT 98
[2025-06-01 04:52] VITALS: BP 96/46; TEMP 97.6; O2SAT 98
[2025-06-01 06:49] LABS: PLATELET COUNT, AUTOMATED 102 10^3/uL (150-450)
[2025-06-01 07:09] LABS: ALT/SGPT 15.0 U/L (7.0-40); AST/SGOT 20.0 U/L (<34); CALCIUM LEVEL 8.8 MG/DL (8.3-10.6); CARBON DIOXIDE LEVEL 27.0 MMOL/L (20-31); CHLORIDE LEVEL 97.0 MMOL/L (98-107); CREATININE FOR GFR 5.59 MG/DL (0.55-1.30); GLOMERULAR FILTRATION RATE 7.7 (>45); MAGNESIUM LEVEL 2.0 MG/DL (1.8-2.4); POTASSIUM SERUM 5.0 MMOL/L (3.5-5.1); SODIUM LEVEL 134.0 MMOL/L (136-145)
[2025-06-01] MEDS ORDERED: HEPARIN 1,000 UNITS/ML 10 ML VIAL (FOR RADIOLOGY & DIALYSIS ONLY) XX SCH (07:20)
[2025-06-01] MEDS ORDERED: HEPARIN 1,000 UNITS/ML 10 ML VIAL (FOR RADIOLOGY & DIALYSIS ONLY) IV PRN (07:20)
[2025-06-01] MEDS ORDERED: SODIUM CHLORIDE 0.9% 1000 ML IV PRN (07:20)
[2025-06-01] MEDS ORDERED: LIDOCAINE 1% SDV 5 ML VIAL SC PRN (07:20)
[2025-06-01] MEDS: GLYCOPYRROLATE INJ 0.2 MG/ML 2 ML VIAL NEB SCH (07:30)
[2025-06-01] MEDS ORDERED: PILL CUTTER 1 EACH XX ONE (07:37)
[2025-06-01 14:00] VITALS: BP 98/55; TEMP 97.3; O2SAT 94
[2025-06-01 18:19] VITALS: BP 110/60
[2025-06-01] MEDS: ONDANSETRON 4MG/2ML VIAL IV PRN (18:23)
[2025-06-01 20:00] VITALS: BP 94/54; TEMP 98.2; O2SAT 92
[2025-06-01 21:15] VITALS: BP 94/54
[2025-06-02] VITALS: BP 103/54; TEMP 97.7; O2SAT 100
[2025-06-02 04:00] VITALS: BP 98/56; TEMP 98; O2SAT 93
[2025-06-02 08:01] LABS: BASO # 0.1 10^3/uL (0.0-0.2); BASO % 0.7 % (0.0-1.0); EOS # 0.0 10^3/uL (0.0-0.5); EOS % 0.0 % (0.0-3.0); LYMPH # 0.8 10^3/uL (1.5-5.0); LYMPH % 10.5 % (24.0-44.0); MONO # 0.7 10^3/uL (0.0-0.8); MONO % 9.4 % (2.0-8.0); NEUTROPHILS # 5.9 10^3/uL (1.5-8.5); NEUTROPHILS % 78.7 % (36.0-66.0); PLATELET COUNT, AUTOMATED 113 10^3/uL (150-450)
[2025-06-02 08:20] LABS: CALCIUM LEVEL 8.4 MG/DL (8.3-10.6); CARBON DIOXIDE LEVEL 25.0 MMOL/L (20-31); CHLORIDE LEVEL 97.0 MMOL/L (98-107); CREATININE FOR GFR 4.35 MG/DL (0.55-1.30); GLOMERULAR FILTRATION RATE 10.5 (>45); POTASSIUM SERUM 4.5 MMOL/L (3.5-5.1); SODIUM LEVEL 135.0 MMOL/L (136-145)
[2025-06-02 08:41] VITALS: BP 95/54; TEMP 97.8; O2SAT 93
== END 2025-06-02 12:03 | disposition home health service (06) ==
LOC: M ED 21:15 → INTOOBSV 21:16 → M ED INP 21:16 → M MS5PR 05-31 03:05
PROVIDERS: ADMIT Internal Medicine; ATTEND Student in an Organized Health Care Education/Training Program
DX: E87.70 Fluid overload, unspecified (principal); Z91.158 Patient's noncompliance with renal dialysis for other reason; N18.6 End stage renal disease; Z99.2 Dependence on renal dialysis; R19.7 Diarrhea, unspecified; E11.9 Type 2 diabetes mellitus without complications; I12.0 Hypertensive chronic kidney disease with stage 5 chronic kidney disease or end stage renal disease; I48.91 Unspecified atrial fibrillation; G47.33 Obstructive sleep apnea (adult) (pediatric); R06.02 Shortness of breath; Z79.82 Long term (current) use of aspirin; Z79.4 Long term (current) use of insulin; Z79.899 Other long term (current) drug therapy
CPT/HCPCS: 36415; 71045; 71275; 74177; 80048; 80053; 80076; 82550; 82553; 82803; 83605; 83690; 83735; 84311; 84484; 85025; 85027; 87486; 87581; 87633; 87798; 90935; 93005; 93041; 94640; 94760; 96372; 96374; 96375; 97116; 97161; 99285; G0257; G0378; J1596; J1815; J2405; Q9967

== ENCOUNTER 2025-06-25 15:17 | Inpatient (IN) | payer OTHER, MEDICAID ==
[~2025-06-25] VITALS: Ht 152.4 cm; Wt 63.2 kg
[~2025-06-25 15:17] MED LIST changes: +ALB2.5NEB INH
[2025-06-25 16:20] VITALS: O2SAT 96
[2025-06-25] MEDS: IPRATROPIUM 0.5 MG/ALBUTEROL 2.5 MG INH SOL UD 3 ML NEB ONE (16:22)
[2025-06-25] MEDS: ALBUTEROL SULFATE 2.5 MG/0.5 ML INH CONCENTRATE NEB SOLN INH ONE (16:22)
[2025-06-25 16:33] LABS: BASO # 0.0 10^3/uL (0.0-0.2); BASO % 0.7 % (0.0-1.0); EOS # 0.0 10^3/uL (0.0-0.5); EOS % 0.0 % (0.0-3.0); LYMPH # 0.5 10^3/uL (1.5-5.0); LYMPH % 8.3 % (24.0-44.0); MONO # 0.5 10^3/uL (0.0-0.8); MONO % 8.3 % (2.0-8.0); NEUTROPHILS # 5.0 10^3/uL (1.5-8.5); NEUTROPHILS % 82.2 % (36.0-66.0); PLATELET COUNT, AUTOMATED 124 10^3/uL (150-450)
[2025-06-25 17:18] LABS: ALT/SGPT 11.0 U/L (7.0-40); AST/SGOT 26.0 U/L (<34); CALCIUM LEVEL 10.2 MG/DL (8.3-10.6); CARBON DIOXIDE LEVEL 34.0 MMOL/L (20-31); CHLORIDE LEVEL 94.0 MMOL/L (98-107); CREATININE FOR GFR 5.3 MG/DL (0.55-1.30); GLOMERULAR FILTRATION RATE 8.2 (>45); POTASSIUM SERUM 3.8 MMOL/L (3.5-5.1); SODIUM LEVEL 141.0 MMOL/L (136-145)
[2025-06-25] MEDS: cefTRIAXone SOD 2 GM in DEXTROSE 5% (D5W) ADV/MINI-BAG 50 ML IV ONE (20:19)
[2025-06-25] MEDS ORDERED: MOM 30 ML SUSPENSION UDC PO PRN (22:10)
[2025-06-25] MEDS: DOXYCYCLINE HYCLATE 100 MG in DEXTROSE 5% (D5W) MINI-BAG PLU 100 ML IV SCH (23:15)
[2025-06-26] MEDS: IPRATROPIUM 0.5 MG/ALBUTEROL 2.5 MG INH SOL UD 3 ML NEB SCH (01:41)
[2025-06-26] MEDS: diazePAM 2 MG TAB PO SCH (02:13)
[2025-06-26] MEDS: traZODone 100 MG TAB PO SCH (02:13)
[2025-06-26 08:09] LABS: PLATELET COUNT, AUTOMATED 114 10^3/uL (150-450)
[2025-06-26] MEDS ORDERED: HOME MED LIST COMPLETE! XX SCH (08:25)
[2025-06-26 08:52] LABS: ALT/SGPT < 9 U/L (7.0-40); AST/SGOT 12 U/L (<34); CALCIUM LEVEL 9.1 MG/DL (8.3-10.6); CARBON DIOXIDE LEVEL 30 MMOL/L (20-31); CHLORIDE LEVEL 91 MMOL/L (98-107); CREATININE FOR GFR 6.36 MG/DL (0.55-1.30); GLOMERULAR FILTRATION RATE 6.6 (>45); MAGNESIUM LEVEL 2.5 MG/DL (1.8-2.4); POTASSIUM SERUM 3.6 MMOL/L (3.5-5.1); SODIUM LEVEL 136 MMOL/L (136-145)
[2025-06-26] MEDS: METOPROLOL TARTRATE 100 MG TAB PO SCH (09:43)
[2025-06-26] MEDS: DIGOXIN 0.125 MG TAB PO SCH (09:43)
[2025-06-26] MEDS: DOXYCYCLINE HYCLATE 100 MG TABLET PO SCH (09:43)
[2025-06-26] MEDS: PANTOPRAZOLE 40MG TAB PO SCH (09:43)
[2025-06-26] MEDS ORDERED: DEXTROSE 50% 50 ML SYRINGE IV PRN (12:25)
[2025-06-26] MEDS ORDERED: GLUCAGON INJ 1 MG VIAL SC PRN (12:25)
[2025-06-26] MEDS ORDERED: GLUCOSE 4 GM CHEW PO PRN (12:25)
[2025-06-26] MEDS ORDERED: CYCLOBENZAPRINE 5 MG TABLET PO PRN (12:30)
[2025-06-26] MEDS ORDERED: PILL CUTTER 1 EACH XX PRN (13:30)
[2025-06-26] MEDS: SEVELAMER *CARBONate* 800 MG TAB PO SCH (13:44)
[2025-06-26] MEDS: ASPIRIN ENTERIC 325 MG TAB PO SCH (13:44)
[2025-06-26] MEDS: TIOTROPIUM BROM 2.5MCG/ACTUATION 4GM INH INH SCH (13:52)
[2025-06-26 17:00] VITALS: BP 133/57; TEMP 98.2; O2SAT 96
[2025-06-26] MEDS: INSULIN LISPRO (NovoLOG) PER UNIT SC SCH ×2 (18:20→21:00)
[2025-06-26] MEDS: cefTRIAXone SOD 2 GM in DEXTROSE 5% (D5W) ADV/MINI-BAG 50 ML IV SCH (20:38)
[2025-06-26 20:47] VITALS: BP 136/62; TEMP 98; O2SAT 100
[2025-06-26] MEDS: OMEPRAZOLE 20MG CAP PO SCH (21:00)
[2025-06-26] MEDS: HEPARIN SOD 5000 UNITS/ML 1 ML VIAL/SYRINGE SQ SCH (21:01)
[2025-06-26] MEDS: LanTUS (INSULIN GLARGINE INJ) 1 UNITS/0.01 ML SC SCH (21:01)
[2025-06-26] MEDS: ROSUVASTATIN 10 MG TAB PO SCH (21:02)
[2025-06-26] MEDS: diazePAM 2 MG TAB PO PRN (21:11)
[2025-06-27 05:50] VITALS: BP 107/53; TEMP 97.6; O2SAT 99
[2025-06-27] MEDS ORDERED: HEPARIN 1,000 UNITS/ML 10 ML VIAL (FOR RADIOLOGY & DIALYSIS ONLY) IV PRN (06:00)
[2025-06-27] MEDS ORDERED: SODIUM CHLORIDE 0.9% 1000 ML IV PRN (06:00)
[2025-06-27] MEDS ORDERED: LIDOCAINE 1% SDV 5 ML VIAL SC PRN (06:00)
[2025-06-27 06:37] LABS: PLATELET COUNT, AUTOMATED 130 10^3/uL (150-450)
[2025-06-27 07:07] LABS: ALT/SGPT < 9 U/L (7.0-40); AST/SGOT 15 U/L (<34); CALCIUM LEVEL 9.3 MG/DL (8.3-10.6); CARBON DIOXIDE LEVEL 34 MMOL/L (20-31); CHLORIDE LEVEL 88 MMOL/L (98-107); CREATININE FOR GFR 7.59 MG/DL (0.55-1.30); GLOMERULAR FILTRATION RATE 5.4 (>45); POTASSIUM SERUM 3.7 MMOL/L (3.5-5.1); SODIUM LEVEL 136 MMOL/L (136-145)
[2025-06-27] MEDS: HEPARIN 1,000 UNITS/ML 10 ML VIAL (FOR RADIOLOGY & DIALYSIS ONLY) XX SCH (09:47)
[2025-06-27] MEDS: ACETAMINOPHEN 325 MG TAB PO PRN (13:37)
[2025-06-27 14:00] VITALS: BP 110/62; TEMP 97.5; O2SAT 98
[2025-06-27] MEDS: ONDANSETRON 4MG/2ML VIAL IV ONE (17:07)
[2025-06-27] MEDS: CINACALCET 30 MG TAB PO SCH (18:41)
[2025-06-27 20:01] VITALS: BP 110/55; TEMP 98.4; O2SAT 99
[2025-06-28 05:35] VITALS: BP 104/58; TEMP 98.2; O2SAT 100
[2025-06-28 06:53] LABS: BASO # 0.0 10^3/uL (0.0-0.2); BASO % 0.6 % (0.0-1.0); EOS # 0.0 10^3/uL (0.0-0.5); EOS % 0.0 % (0.0-3.0); LYMPH # 0.7 10^3/uL (1.5-5.0); LYMPH % 9.4 % (24.0-44.0); MONO # 0.9 10^3/uL (0.0-0.8); MONO % 12.2 % (2.0-8.0); NEUTROPHILS # 5.5 10^3/uL (1.5-8.5); NEUTROPHILS % 77.2 % (36.0-66.0); PLATELET COUNT, AUTOMATED 121 10^3/uL (150-450)
[2025-06-28 07:27] LABS: CALCIUM LEVEL 8.3 MG/DL (8.3-10.6); CARBON DIOXIDE LEVEL 32.0 MMOL/L (20-31); CHLORIDE LEVEL 94.0 MMOL/L (98-107); CREATININE FOR GFR 4.37 MG/DL (0.55-1.30); GLOMERULAR FILTRATION RATE 10.4 (>45); POTASSIUM SERUM 3.9 MMOL/L (3.5-5.1); SODIUM LEVEL 138.0 MMOL/L (136-145)
[2025-06-28 14:00] VITALS: BP 112/60; TEMP 98.5; O2SAT 98
[2025-06-28 19:53] VITALS: BP 118/54; TEMP 97.7; O2SAT 95
[2025-06-29 05:38] VITALS: BP 103/52; TEMP 97.9; O2SAT 99
[2025-06-29 05:52] VITALS: BP 103/52
[2025-06-29] MEDS ORDERED: HEPARIN 1,000 UNITS/ML 10 ML VIAL (FOR RADIOLOGY & DIALYSIS ONLY) XX SCH (06:00)
[2025-06-29] MEDS ORDERED: SODIUM CHLORIDE 0.9% 1000 ML IV PRN (06:00)
[2025-06-29] MEDS ORDERED: LIDOCAINE 1% SDV 5 ML VIAL SC PRN (06:00)
[2025-06-29] MEDS ORDERED: HEPARIN 1,000 UNITS/ML 10 ML VIAL (FOR RADIOLOGY & DIALYSIS ONLY) IV PRN (06:00)
[2025-06-29 08:26] LABS: CALCIUM LEVEL 8.2 MG/DL (8.3-10.6); CARBON DIOXIDE LEVEL 26.0 MMOL/L (20-31); CHLORIDE LEVEL 95.0 MMOL/L (98-107); CREATININE FOR GFR 6.05 MG/DL (0.55-1.30); GLOMERULAR FILTRATION RATE 7.0 (>45); POTASSIUM SERUM 4.2 MMOL/L (3.5-5.1); SODIUM LEVEL 136.0 MMOL/L (136-145)
[2025-06-29 12:43] VITALS: BP 95/54; O2SAT 100
[2025-06-29 14:00] VITALS: BP 110/54; TEMP 98; O2SAT 100
== END 2025-06-29 16:10 | disposition home or self-care (01) | DRG 291 ==
LOC: M ED 15:17 → EDBD 15:17 → M ED INP 22:08 → M MS5PR 06-26 17:00
PROVIDERS: ADMIT Internal Medicine; ATTEND Internal Medicine
PROC: 5A1D70Z Performance of Urinary Filtration, Intermittent, Less than 6 Hours Per Day (ICD-10-PCS; principal; 2025-06-27)
DX: I13.2 Hypertensive heart and chronic kidney disease with heart failure and with stage 5 chronic kidney disease, or end stage renal disease (principal); N18.6 End stage renal disease; I50.33 Acute on chronic diastolic (congestive) heart failure; J18.9 Pneumonia, unspecified organism; N25.81 Secondary hyperparathyroidism of renal origin; J90 Pleural effusion, not elsewhere classified; J44.0 Chronic obstructive pulmonary disease with (acute) lower respiratory infection; E11.42 Type 2 diabetes mellitus with diabetic polyneuropathy; G47.33 Obstructive sleep apnea (adult) (pediatric); K21.9 Gastro-esophageal reflux disease without esophagitis; I48.91 Unspecified atrial fibrillation; E11.22 Type 2 diabetes mellitus with diabetic chronic kidney disease; I27.20 Pulmonary hypertension, unspecified; D63.8 Anemia in other chronic diseases classified elsewhere; K74.60 Unspecified cirrhosis of liver; D69.6 Thrombocytopenia, unspecified; Z99.81 Dependence on supplemental oxygen; F41.9 Anxiety disorder, unspecified; Z90.5 Acquired absence of kidney; Z85.528 Personal history of other malignant neoplasm of kidney; Z79.82 Long term (current) use of aspirin; Z79.4 Long term (current) use of insulin; Z79.899 Other long term (current) drug therapy; Z88.8 Allergy status to other drugs, medicaments and biological substances; Z99.2 Dependence on renal dialysis; Z90.79 Acquired absence of other genital organ(s)

== ENCOUNTER 2025-07-24 18:22 | Emergency (ER) | payer OTHER, MEDICAID ==
[~2025-07-24] VITALS: Ht 154.9 cm; Wt 62.0 kg
[2025-07-24 19:36] LABS: BASO # 0.1 10^3/uL (0.0-0.2); BASO % 0.7 % (0.0-1.0); EOS # 0.0 10^3/uL (0.0-0.5); EOS % 0.0 % (0.0-3.0); LYMPH # 0.5 10^3/uL (1.5-5.0); LYMPH % 7.2 % (24.0-44.0); MONO # 0.4 10^3/uL (0.0-0.8); MONO % 6.1 % (2.0-8.0); NEUTROPHILS # 6.1 10^3/uL (1.5-8.5); NEUTROPHILS % 85.4 % (36.0-66.0)
[2025-07-24 19:42] LABS: PLATELET COUNT, AUTOMATED 94 10^3/uL (150-450)
[2025-07-24 20:02] LABS: ALT/SGPT < 9 U/L (7.0-40); AST/SGOT 19 U/L (<34); CALCIUM LEVEL 8.3 MG/DL (8.3-10.6); CARBON DIOXIDE LEVEL 35 MMOL/L (20-31); CHLORIDE LEVEL 94 MMOL/L (98-107); CREATININE FOR GFR 4.46 MG/DL (0.55-1.30); GLOMERULAR FILTRATION RATE 10.1 (>45); POTASSIUM SERUM 3.9 MMOL/L (3.5-5.1); SODIUM LEVEL 140 MMOL/L (136-145)
[2025-07-24] MEDS ORDERED: NEBU1EAC78 MC (23:48)
[2025-07-24] MEDS ORDERED: PRED20TA PO (23:51)
[2025-07-25] MEDS: IPRATROPIUM 0.5 MG/ALBUTEROL 2.5 MG INH SOL UD 3 ML NEB ONE (00:18)
[2025-07-25] MEDS: predniSONE 20 MG TAB PO ONE (00:34)
[2025-07-25 00:45] VITALS: BP 136/61; TEMP 97.9; O2SAT 98
== END 2025-07-25 00:53 | disposition home or self-care (01) ==
LOC: M ED 18:22 → EDBD 18:22 → M ED 07-25 00:53
DX: J44.9 Chronic obstructive pulmonary disease, unspecified (principal); R06.00 Dyspnea, unspecified; R91.1 Solitary pulmonary nodule; R16.1 Splenomegaly, not elsewhere classified; R18.8 Other ascites; I25.10 Atherosclerotic heart disease of native coronary artery without angina pectoris; I12.0 Hypertensive chronic kidney disease with stage 5 chronic kidney disease or end stage renal disease; E11.9 Type 2 diabetes mellitus without complications; K21.9 Gastro-esophageal reflux disease without esophagitis; E78.5 Hyperlipidemia, unspecified; Z41.9 Encounter for procedure for purposes other than remedying health state, unspecified; Z99.2 Dependence on renal dialysis; Z79.4 Long term (current) use of insulin; Z79.82 Long term (current) use of aspirin; Z79.899 Other long term (current) drug therapy; Z88.8 Allergy status to other drugs, medicaments and biological substances
CPT/HCPCS: 71045; 71250; 80048; 80076; 85025; 85049; 85055; 87486; 87581; 87633; 87798; 93005; 93041; 94640; 94760; 99285; J7512